=== PATIENT | female | born 1955 | race Caucasian/White ===

== ENCOUNTER 2024-07-03 09:53 | Outpatient (CLI) | payer MEDICARE, MEDICAID, SELFPAY ==
--- NOTE | 2024-07-03 10:05 | XR_ITS ---
FINAL REPORT CLINICAL HISTORY: Right wrist pain COMPARISON: None FINDINGS: RIGHT WRIST Three views demonstrate no acute fracture or dislocation. There are moderate hypertrophic changes of the basilar joint. Mild narrowing is noted at the radiocarpal joint. The soft tissues are unremarkable. IMPRESSION: Changes of osteoarthritis without acute bony abnormality. Reviewed, Interpreted and Dictated by Corey Vargas MD Transcribed by Ivelisse Underwood Authenticated and [facility]
--- NOTE | 2024-07-03 10:05 | XR_ITS ---
FINAL REPORT CLINICAL HISTORY: Left wrist pain COMPARISON: None FINDINGS: LEFT WRIST Three views demonstrate no acute fracture or dislocation. There are advanced hypertrophic changes of osteoarthritis of the basilar joint. Moderate narrowing of the radiocarpal joint is noted. The soft tissues are unremarkable. IMPRESSION: Changes of osteoarthritis without acute bony abnormality. Reviewed, Interpreted and Dictated by Corey Vargas MD Transcribed by Ivelisse Underwood Authenticated and [facility]
== END 2024-07-03 23:59 | disposition home or self-care (01) ==
LOC: RAD 10:00
PROVIDERS: PCP Family Medicine; Visit Provider Physician Assistant
DX: M25.531 Pain in right wrist (principal); M25.532 Pain in left wrist
CPT/HCPCS: 73110

== ENCOUNTER 2024-07-30 10:25 | Outpatient (CLI) | payer MEDICARE, MEDICAID, SELFPAY ==
--- NOTE | 2024-07-30 10:30 | XR_ITS ---
FINAL REPORT TECHNIQUE: Chest PA & Lateral CLINICAL HISTORY: copd exacerbation, cough r/o pneumonia COMPARISON: None FINDINGS: 2 views of the chest were performed. The heart is mildly enlarged. The mediastinum is within normal limits. Chronic changes are noted at the lung bases. There is no acute cardiopulmonary process. There are no pleural effusions. There is no pneumothorax. The bony thorax appears intact. IMPRESSION: No acute cardiopulmonary process. Reviewed, Interpreted and Dictated by Corey Vargas MD Transcribed by Natalie Santana Authenticated and [facility]
== END 2024-07-30 23:59 | disposition home or self-care (01) ==
LOC: RAD 10:26
PROVIDERS: PCP Family Medicine; Visit Provider Family Medicine
DX: J44.9 Chronic obstructive pulmonary disease, unspecified (principal); J40 Bronchitis, not specified as acute or chronic; Z87.891 Personal history of nicotine dependence
CPT/HCPCS: 71046

== ENCOUNTER 2024-08-06 10:19 | Outpatient (CLI) | payer MEDICARE, MEDICAID, SELFPAY ==
[2024-08-06 18:43] LABS: Basophils # 0.1 K/mm3 (0-0.2); Basophils % 0.7 % (0.1-2.0); Eosinophils # 0.8 K/mm3 (0.0-0.4); Hematocrit 45.9 % (37.0-47.0); Hemoglobin 14.7 g/dL (12.2-16.2); Lymphocytes # 2.5 K/mm3 (0.7-4.5); Lymphocytes % 29.6 % (10-50); Mean Corpuscular Hemoglobin 30.1 pg (27.0-31.2); Mean Platelet Volume 9.1 fl (7.4-10.4); Monocytes # 0.7 K/mm3 (0.1-1.0); Monocytes % 8.9 % (1.7-9.3); Neutrophils # 4.3 K/mm3 (1.8-7.8); Neutrophils % 51.7 % (37.0-80.0); Platelet Count 234 K/mm3 (142-424); Red Blood Count 4.88 M/mm3 (4.20-5.40); Red Cell Distribution Width 13.7 % (11.5-17.5); White Blood Count 8.3 K/mm3 (4.8-10.8)
[2024-08-06 18:58] LABS: Hemoglobin A1C 5.9 % (4.0-6.0)
[2024-08-06 19:14] LABS: Chloride 102 mmol/L (98-107); Potassium 4.6 mmoL/L (3.5-5.1); Sodium 140 mmol/L (136-145)
[2024-08-06 19:16] LABS: Alanine Aminotransferase 23 U/L (12-78); Aspartate Amino Transferase 23 U/L (14-36); Blood Urea Nitrogen 12 mg/dl (7-17); Estimated Glomerular Filt Rate 83 ml/min (>60); GFR (African American) 101 ML/MIN (>60)
[2024-08-06 19:17] LABS: Albumin/Globulin Ratio 1.2 (1.1-1.8); Alkaline Phosphatase 108 U/L (38-126); Anion Gap 11.6 mEq/L (5-15); Bilirubin,Total 0.5 mg/dl (0.2-1.3); Calcium 9.5 mg/dl (8.4-10.2); Carbon Dioxide 31 mmol/L (22.0-30.0); Cholesterol 171 mg/dl (140-200); Globulin 3.3 g/dL (1.3-3.2); Glucose 104 mg/dl (74-100); Total Protein,Serum 7.3 g/dl (6.3-8.2); Triglycerides 389 mg/dl (30-150); VLDL Cholesterol 78 mg/dL (0-40)
[2024-08-06 19:18] LABS: HDL Cholesterol 42 mg/dl (40-60)
[2024-08-06 19:28] LABS: Direct LDL Cholesterol 59.17 mg/dL (100-129)
[2024-08-06 19:48] LABS: Thyroid Stimulating Hormone 2.69 uIU/mL (0.465-4.68)
[2024-08-06 23:26] LABS: Chol/HDL Ratio 4.1 (1-3.5)
== END 2024-08-06 23:59 | disposition home or self-care (01) ==
LOC: LAB.DROPOF 08-07 10:19
PROVIDERS: PCP Family Medicine; Visit Provider Family Medicine
DX: J44.9 Chronic obstructive pulmonary disease, unspecified (principal); E11.9 Type 2 diabetes mellitus without complications; Z79.84 Long term (current) use of oral hypoglycemic drugs; E78.5 Hyperlipidemia, unspecified; E03.9 Hypothyroidism, unspecified; Z87.891 Personal history of nicotine dependence
CPT/HCPCS: 80053; 80061; 83036; 84443; 85025

== ENCOUNTER 2024-08-14 09:44 | Emergency (ER) | payer MEDICARE, MEDICAID, SELFPAY ==
[2024-08-14 09:58] VITALS: BP 128/70; PULSE 72; RESP 20; TEMP 36.5; O2SAT 96; BMI 33.8
--- NOTE | 2024-08-14 10:11 | EXP.UTC ---
Discharge Plan Disposition Patient Disposition: Home, Self-Care Condition: Good Prescriptions Prescriptions: New benzonatate 100 mg capsule 100 mg PO TID PRN (Reason: cough) Qty: 30 0RF cefdinir 300 mg capsule 300 mg PO BID Qty: 20 0RF guaifenesin [Mucinex] 600 mg tablet extended release 12hr 600 mg PO BID PRN (Reason: cough) Qty: 20 0RF No Action aspirin 81 mg tablet,delayed release (DR/EC) 81 mg PO Patient Comments: TAKE 1 TABLET BY MOUTH DAILY fluticasone propionate 50 mcg/actuation spray,suspension intranasal fluticasone propion-salmeterol 100-50 mcg/dose blister with device inhalation Patient Comments: INHALE 1 PUFF BY MOUTH TWICE DAILY albuterol sulfate 90 mcg/actuation HFA aerosol inhaler inhalation Patient Comments: INHALE 2 PUFFS EVERY 4 HOURS NEEDED FOR WHEEZING OR SHORTNESS OF AIR (DME) OneTouch Ultra Test Strip See Rx Instructions .ROUTE .MEDSUPPLY Qty: 10 Patient Comments: USE TO CHECK BLOOD SUGAR DAILY DIRECTED Rx Instructions: As directed (DME) blood-glucose meter [OneTouch Ultra2 Meter] Mis See Rx Instructions .ROUTE .MEDSUPPLY Qty: 1 Patient Comments: USE TO CHECK BLOOD SUGAR DAILY Rx Instructions: As directed (DME) lancets [Ultra Thin Lancets] 30 gauge misc See Rx Instructions .ROUTE .MEDSUPPLY Qty: 100 Patient Comments: USE TO CHECK BLOOD SUGAR ONCE DAILY Rx Instructions: As directed atorvastatin 20 mg tablet 20 mg PO Patient Comments: TAKE 1 TABLET BY MOUTH DAILY nitroglycerin 0.4 mg tablet, sublingual 0.4 mg sublingual Patient Comments: PLACE 1 TABLET UNDER THE TONGUE EVERY 5 MINUTES NEEDED FOR CHEST PAIN. TAKE NO MORE THAN 3 DOSES IN 15 MINS amlodipine 2.5 mg tablet 2.5 mg PO ONCE PRN Patient Comments: TAKE 1 TABLET BY MOUTH DAILY hydroxyzine HCl 10 mg tablet 10 mg PO HS PRN meloxicam 15 mg tablet 15 mg PO ONCE Patient Comments: TAKE 1 TABLET BY MOUTH DAILY metoprolol succinate 50 mg tablet extended release 24 hr 50 mg PO BID Patient Comments: TAKE 1 TABLET BY MOUTH EVERY 12 HOURS mirtazapine 15 mg tablet 15 mg PO ONCE Patient Comments: TAKE 1 TABLET BY MOUTH EVERY NIGHT pantoprazole 40 mg tablet,delayed release (DR/EC) 40 mg PO BID Patient Comments: TAKE 1 TABLET BY MOUTH TWICE DAILY potassium chloride 10 mEq tablet,ER particles/crystals 10 meq PO ONCE Patient Comments: TAKE 1 TABLET BY MOUTH DAILY flu vacc [id number] 6mos up(PF) 45 mcg (15 mcg x 3)/0.5 mL syringe 0.5 ml IM ONCE Qty: 0.5 0RF oxybutynin chloride 5 mg tablet 5 mg PO BID Qty: 60 5RF alendronate 70 mg tablet 70 mg PO QWEEK chlorthalidone 25 mg tablet 25 mg PO DAILY Qty: 30 2RF gabapentin 100 mg capsule 100 mg PO TID Qty: 90 5RF levothyroxine 75 mcg tablet 75 mcg PO DAILY Qty: 90 0RF memantine 10 mg tablet 10 mg PO DAILY Qty: 90 0RF Jardiance 10 mg tablet 10 mg PO DAILY Qty: 90 0RF sucralfate 1 gram tablet 1 g PO QID 30 Days Qty: 120 0RF montelukast 10 mg tablet 10 mg PO DAILY Qty: 30 5RF Referrals Follow up/Referrals: Reza Panchal MD [Primary Care Provider] - See instructions Activity Restrictions/Add. Instructions Additional Instructions/Restrictions: Start antibiotic today. Be sure to complete entire prescription even if feeling better Monitor temp. Tylenol every 4 hours as needed and / or ibuprofen every 6 hours as needed ( As long as your primary care physician has told you that it ok to take both. For fever/aches/pains ER if no less than 101 despite Tylenol or Motrin Humidifier/vaporizer or hot steamy shower Mucinex during the day for your cough and cough suppressant only at night. Be sure to drink lots of water. *Tessalon Perles will not cause drowsiness but use at bedtime to help stop cough so that you may get some rest. Follow up IMMEDIATELY for new or worsening of symptoms OR no noticeable improvement over the next 48-72 hours. 911 immediately for any life threatening symptoms such as chest pain or difficulty breathing Clinical Impressions Clinical Impression: Bronchitis Instructions Patient Instructions: DI for Sinusitis, Acute Bronchitis Print Language Print Language: Mauritanian Discharge ED Provider: Haley Donis [facility] HPI General Stated complaint: cough Mode of Arrival: Ambulatory Source of Information: Patient Time Seen by Provider: 08/14/24 10:17 Description of Symptoms (Recalled from Triage Doc. by RN): COUGHING/ WHEEZING X2 WEEKS HEENT Symptoms (Recalled from RN notes): No Resp Symptoms (Recalled from RN notes): Yes Skin Symptoms (Recalled from RN notes): No MS Symptoms (Recalled from RN notes): No Functional Status (Recalled from RN notes): WNL History of Present Illness Provider Complaint: Patient states that she was seen and treated by her PCP for Bronchitis States it initially got better then came back States that she has been having cough and chest congestion but not coughing much up but the cough is keeping her up at night and feels like she is getting congested again in her chest area so she came in to get something else to see if that would clear it up Related Data Home Medications ?Medication ?Instructions ?Recorded ?Confirmed albuterol sulfate 90 mcg/actuation inhalation 07/05/24 08/07/24 aerosol inhaler aspirin 81 mg tablet,delayed 81 mg PO 07/05/24 08/07/24 release atorvastatin 20 mg tablet 20 mg PO 07/05/24 08/07/24 blood sugar diagnostic (OneTouch #10 ea 07/05/24 08/07/24 Ultra Test strips) blood-glucose meter (OneTouch #1 ea 07/05/24 08/07/24 Ultra2 Meter) fluticasone 100 mcg-salmeterol 50 inhalation 07/05/24 08/07/24 mcg/dose blistr powdr for inhalation fluticasone propionate 50 intranasal 07/05/24 08/07/24 mcg/actuation nasal spray,suspension lancets 30 gauge (Ultra Thin #100 ea 07/05/24 08/07/24 Lancets) nitroglycerin 0.4 mg sublingual 0.4 mg sublingual 07/05/24 08/07/24 tablet alendronate 70 mg tablet 70 mg PO QWEEK 08/07/24 08/07/24 amlodipine 2.5 mg tablet 2.5 mg PO ONCE PRN 08/07/24 08/07/24 hydroxyzine HCl 10 mg tablet 10 mg PO HS PRN 08/07/24 08/07/24 meloxicam 15 mg tablet 15 mg PO ONCE 08/07/24 08/07/24 metoprolol succinate 50 mg 50 mg PO BID 08/07/24 08/07/24 tablet,extended release 24 hr mirtazapine 15 mg tablet 15 mg PO ONCE 08/07/24 08/07/24 pantoprazole 40 mg tablet,delayed 40 mg PO BID 08/07/24 08/07/24 release potassium chloride 10 mEq 10 meq PO ONCE 08/07/24 08/07/24 tablet,extended release(part/cryst) Previous Rx's ?Medication ?Instructions ?Recorded empagliflozin 10 mg tablet 10 mg PO DAILY Diabetes #90 tabs 07/08/24 (Jardiance) levothyroxine 75 mcg tablet 75 mcg PO DAILY thyroid disease 07/08/24 #90 tabs memantine 10 mg tablet 10 mg PO DAILY memory loss #90 tabs 07/08/24 sucralfate 1 gram tablet 1 g PO QID 30 days #120 tabs 07/29/24 gabapentin 100 mg capsule 100 mg PO TID #90 caps 07/30/24 montelukast 10 mg tablet 10 mg PO DAILY #30 tabs 08/01/24 oxybutynin chloride 5 mg tablet 5 mg PO BID #60 tabs 08/06/24 chlorthalidone 25 mg tablet 25 mg PO DAILY #30 tabs 08/07/24 benzonatate 100 mg capsule 100 mg PO TID PRN cough #30 caps 08/14/24 cefdinir 300 mg capsule 300 mg PO BID #20 caps 08/14/24 guaifenesin 600 mg tablet, 600 mg PO BID PRN cough #20 tabs 08/14/24 extended release 12 hr (Mucinex) Allergies Allergy/AdvReac Type Severity Reaction Status Date / Time hydrocodone Allergy Mild Verified 08/07/24 10:50 codeine AdvReac Mild Verified 08/07/24 10:50 Worker's Comp Is this a Worker's Comp case?: No [facility] Disclaimer: The information contained in this section may have been updated after the patient was seen, as this information can be updated by other users. 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 (Updated 08/14/24 @ 10:24 by Haley Donis APRN) Edema Hyperlipidemia associated with type 2 diabetes mellitus Urinary incontinence Onychomycosis Diabetic neuropathy Breast cancer screening by mammogram Dementia Diabetes mellitus Bronchitis COPD (chronic obstructive pulmonary disease) Colonoscopy planned Gallbladder anomaly Rheumatoid arthritis Osteoporosis Back pain Acid reflux disease Carpal tunnel syndrome Anxiety Hypothyroidism Sleep apnea High blood pressure Arthritis Varicose veins of ankle Depression Acute asthma Surgical History History of hernia repair Total knee replacement status Social History Smoking Status: Never smoker alcohol intake: never substance use type: denies use current occupational status: unemployed Travel in the last 8 weeks: None ROS Obtained: Yes All systems reviewed & no additional complaints except as documented and Yes Systems reviewed as appropriate & no additional complaints except as documented Constitutional Constitutional: Reports system reviewed and no additional complaints, except as documented and Reports as per HPI ENT Ears, Nose, Mouth, and Throat: Reports system reviewed and no additional complaints, except as documented and Reports as per HPI Cardiovascular Cardiovascular: Reports system reviewed and no additional complaints, except as documented and Reports as per HPI Respiratory Respiratory: Reports system reviewed and no additional complaints, except as documented, Reports as per HPI, Reports chest congestion and Reports cough Gastrointestinal Gastrointestingal: Reports system reviewed and no additional complaints, except as documented and as per HPI Physical Exam General General appearance: alert and in no apparent distress Expanded ENT Exam Nose exam: Present sinus tenderness (reports tenderness in maxillary sinuses with palpation) Throat exam: Present other (PND noted) Respiratory Respiratory exam: Present normal lung sounds bilaterally; Absent respiratory distress or wheezes Cardiovascular Cardiovascular exam: Present regular rate, normal rhythm and normal heart sounds Neurological Exam Neurological exam: Present alert, oriented X3 and normal gait Medical Decision Making Medical Records Screening: Per USPSTF and CDC recommendations, given the prevalence of disease in our region, it is our hospital?s policy to screen for HIV and viral Hepatitis for all patients aged 18 and over and those with ongoing risk factors. Andre Inquiry Pt receiving controlled substance: No Vital Signs: 08/14/24 09:58 Temperature 97.7 F Temperature Source Oral Pulse Rate [Left Radial] 72 Respiratory Rate 20 Blood Pressure [Left Arm] 128/70 Blood Pressure Mean [Left Arm] 89 02 Sat by Pulse Oximetry 96
[2024-08-14 10:24] VITALS: BP 128/70; PULSE 72; RESP 20; TEMP 36.5
== END 2024-08-14 10:29 | disposition home or self-care (01) ==
PROVIDERS: Emergency Provider Nurse Practitioner; PCP Family Medicine
DX: J40 Bronchitis, not specified as acute or chronic (principal); R05.9 Cough, unspecified
CPT/HCPCS: 99212; G0381

== ENCOUNTER 2024-08-16 19:45 | Emergency (ER) | payer MEDICARE, MEDICAID, SELFPAY ==
[2024-08-16 20:18] VITALS: BP 161/87; PULSE 83; RESP 20; TEMP 36.5; O2SAT 95; BMI 37.0
--- NOTE | 2024-08-16 20:27 | CT_ITS ---
PROCEDURE INFORMATION: Exam: CTA Head With Contrast, Venography Exam date and time: 08/16/2024 9:04 PM Age: 69 years old Clinical indication: Stroke-like symptoms; Headache and visual disturbance; Additional info: R eye vision loss, severe R headache TECHNIQUE: Imaging protocol: Computed tomography angiography of the head with contrast. Exam focused on the veins. 3D rendering (Not supervised by radiologist): MIP and/or 3D reconstructed images were created by the technologist. Radiation optimization: All CT scans at this facility use at least one of these dose optimization techniques: automated exposure control; mA and/or kV adjustment per patient size (includes targeted exams where dose is matched to clinical indication); or iterative reconstruction. Contrast material: ISOUVE 370; Contrast volume: 80 ml; Contrast route: INTRAVENOUS (IV); COMPARISON: CT ANGIO HEAD 08/16/2024 9:04 PM FINDINGS: Superior sagittal sinus: Patent Straight sinus: Patent. Transverse sinuses: Patent. Sigmoid sinuses: Patent. Internal jugular veins: Limited visualized internal jugular veins are patent. ANTERIOR CIRCULATION: Right internal carotid artery: The right ICA petrous, cavernous, and supraclinoid segments are unremarkable. Right middle cerebral artery: Unremarkable. No occlusion or significant stenosis. No aneurysm. Right anterior cerebral artery: Unremarkable. No occlusion or significant stenosis. No aneurysm. The anterior communicating artery is unremarkable. Left internal carotid artery: Left ICA petrous, cavernous, and supraclinoid segments are normal. Left middle cerebral artery: Unremarkable. No occlusion or significant stenosis. No aneurysm. Left anterior cerebral artery: Unremarkable. No occlusion or significant stenosis. No aneurysm. POSTERIOR CIRCULATION: Right vertebral artery: Unremarkable. No occlusion or significant stenosis. No aneurysm. Left vertebral artery: Left vertebral artery is mildly dominant. No occlusion or significant stenosis. No aneurysm. Basilar artery: Unremarkable. No occlusion or significant stenosis. No aneurysm. Right posterior cerebral artery: Unremarkable. No occlusion or significant stenosis. No aneurysm. Left posterior cerebral artery: Unremarkable. No occlusion or significant stenosis. No aneurysm. Brain: No enhancing brain lesions or vascular malformations are identified. Cerebral ventricles: No ventriculomegaly. Soft tissues: Unremarkable. IMPRESSION: 1. No evidence of large vessel occlusion or significant stenosis. No evidence of arterial dissection or aneurysm/pseudoaneurysm. 2. No acute intracranial process is evident.
--- NOTE | 2024-08-16 20:27 | CT_ITS ---
PROCEDURE INFORMATION: Exam: CT Head Without Contrast Exam date and time: 08/16/2024 8:50 PM Age: 69 years old Clinical indication: Stroke-like symptoms; Headache and visual disturbance; Additional info: R eye vision loss, severe R headache TECHNIQUE: Imaging protocol: Computed tomography of the head without contrast. Radiation optimization: All CT scans at this facility use at least one of these dose optimization techniques: automated exposure control; mA and/or kV adjustment per patient size (includes targeted exams where dose is matched to clinical indication); or iterative reconstruction. Other technique: STROKE PROTOCOL was implemented. COMPARISON: No relevant prior studies available. FINDINGS: Brain: Mild generalized cerebral/cerebellar atrophy. Mild-moderate bilateral white matter hypodensities which are nonspecific but most commonly associated with chronic microvascular ischemia in this age group. The IACs are grossly normal. No extra-axial fluid collections. No evidence of acute intracranial hemorrhage. Cerebral/cerebellar parra-white matter differentiation is well maintained. No CT evidence of large territory acute or subacute intracranial ischemia/infarct. No intracranial mass lesions. No midline shift or herniation. There is 6 mm ovoid hypodensity in the inferior right basal ganglia distribution consistent with either a normal variant prominent perivascular space or a small chronic lacunar infarct. Cerebral ventricles: Ventricles normal. Pituitary gland and sella: The sella is grossly normal. Paranasal sinuses: Left maxillary sinus opacification and volume loss consistent with chronic sinusitis with mild changes of chronic sinusitis in the right posterior ethmoids as well. No fluid levels. Mastoid air cells: Partial opacification of a few left mastoid air cells suggesting mild mastoid inflammatory disease. No coalescence. Right mastoid air cells are clear. Orbital cavities: No acute intraorbital findings. Prior bilateral ocular cataract surgery. Bones: No acute osseous findings. Hyperostosis frontalis interna incidentally noted. Soft tissues: No acute soft tissue findings. Vasculature: No asymmetric vascular hyperdensities suggestive of thrombosis are identified. IMPRESSION: 1. No acute intracranial process. No intracranial hemorrhage or mass effect. 2. Mild left mastoid inflammatory disease and chronic sinusitis. ASSESSMENT: ASPECTS ([place] Stroke Program Early CT Score) is 10.
--- NOTE | 2024-08-16 20:27 | CT_ITS ---
PROCEDURE INFORMATION: Exam: CTA Neck With Contrast Exam date and time: 08/16/2024 9:04 PM Age: 69 years old Clinical indication: Stroke-like symptoms; Headache and visual disturbance; Additional info: R eye vision loss, severe R headache TECHNIQUE: Imaging protocol: Computed tomographic angiography of the neck with contrast. Exam focused on the cervical segments of the vasculature. 3D rendering (Not supervised by radiologist): MIP and/or 3D reconstructed images were created by the technologist. Radiation optimization: All CT scans at this facility use at least one of these dose optimization techniques: automated exposure control; mA and/or kV adjustment per patient size (includes targeted exams where dose is matched to clinical indication); or iterative reconstruction. Contrast material: ISOUVE 370; Contrast volume: 80 ml; Contrast route: INTRAVENOUS (IV); COMPARISON: CT ANGIO HEAD 08/16/2024 9:04 PM FINDINGS: Right common carotid artery: Mild tortuosity. No stenosis. No dissection or occlusion. Right internal carotid artery: Moderate calcific plaque in the right carotid bulb. Moderate tortuosity with mild kinking in the mid segment. No significant stenosis. No dissection or occlusion. Right external carotid artery: Mild ostial calcific plaque. No stenosis. No dissection or occlusion. Left common carotid artery: Variant origin from the brachiocephalic artery. Moderate tortuosity with mild kinking but no significant stenosis. No dissection or occlusion. Left internal carotid artery: Moderate calcific plaque in the left carotid bulb. Mild tortuosity. No stenosis. No dissection or occlusion. Left external carotid artery: Mild ostial calcific plaque. No stenosis. No dissection or occlusion. Right vertebral artery: Mild V1 tortuosity. No stenosis. No dissection or occlusion. Left vertebral artery: Left vertebral artery is mildly dominant. No stenosis. No dissection or occlusion. Brachiocephalic artery: The brachiocephalic artery is unremarkable. Right subclavian artery: The right subclavian artery is unremarkable. Left subclavian artery: The left subclavian artery demonstrates mild calcific plaque and tortuosity/kinking without significant stenosis. Aorta: The visualized aortic arch demonstrates mild ectasia and calcific plaque without evidence of dissection or gross aneurysm. Thyroid: The thyroid gland is not well visualized and is either severely atrophic or surgically absent. Correlate clinically for evidence of hypothyroidism. Soft tissues: No significant soft tissue swelling or hematoma. Bones/joints: No acute osseous abnormalities are identified. Osteopenia and moderate-severe cervical disc degenerative changes, greatest in the lower cervical levels, with chronic ankylosis or fusion C5-C6. Lungs: Patchy atelectasis in the bilateral mid to basilar lung franklin. Mild biapical pleural-parenchymal scarring. Heart: Moderate cardiomegaly. Coronary arteries: Mild coronary artery calcification. Other findings: Moderate-sized hiatal hernia. IMPRESSION: 1. No evidence of arterial occlusion, significant stenosis, dissection, or aneurysm/pseudoaneurysm. 2. Nonemergent findings detailed above. REFERENCES: NASCET CRITERIA. The degree of stenosis in the cervical segment of the internal carotid artery is based on NASCET criteria. Normal is no stenosis. Mild is less than 50% stenosis. Moderate is 50-69% stenosis. Severe is 70% to 99% stenosis. Total occlusion is no detectable patent lumen.
--- NOTE | 2024-08-16 20:28 | XR_ITS ---
PROCEDURE INFORMATION: Exam: XR Chest Exam date and time: 08/16/2024 9:02 PM Age: 69 years old Clinical indication: Cough; Additional info: Cough >2 wks TECHNIQUE: Imaging protocol: Radiologic exam of the chest. Views: 1 view. COMPARISON: CR XR CHEST 2V 07/30/2024 10:38 AM FINDINGS: Lungs: Low lung volumes. Pulmonary vasculature grossly normal. Patchy mild alveolar densities in the lung bases, partially visualized on the neck CT angiogram, favor patchy basilar atelectasis although cannot exclude mild basilar pneumonia. Pleural spaces: No gross pleural effusions although the lordotic projection limits sensitivity. No pneumothorax. Heart/Mediastinum: Mild cardiomegaly. No tracheal/mediastinal shift. Bones/joints: No acute osseous abnormalities are identified. Osteopenia. Mild thoracic spondylosis. IMPRESSION: 1. Patchy mild alveolar densities in the lung bases, most likely basilar atelectasis based on the neck CT angiogram which partially visualizes this region although cannot exclude patchy basilar pneumonia. 2. Mild cardiomegaly.
--- NOTE | 2024-08-16 20:32 | PC.NURSE ---
family at [facility]
--- NOTE | 2024-08-16 20:41 | ED_ITS ---
Discharge Plan Disposition Patient Disposition: Xfer Short-Term Hosp Condition: Good Chief Complaint: PAIN Prescriptions Prescriptions: No Action aspirin 81 mg tablet,delayed release (DR/EC) 81 mg PO Patient Comments: TAKE 1 TABLET BY MOUTH DAILY fluticasone propionate 50 mcg/actuation spray,suspension intranasal fluticasone propion-salmeterol 100-50 mcg/dose blister with device inhalation Patient Comments: INHALE 1 PUFF BY MOUTH TWICE DAILY albuterol sulfate 90 mcg/actuation HFA aerosol inhaler inhalation Patient Comments: INHALE 2 PUFFS EVERY 4 HOURS NEEDED FOR WHEEZING OR SHORTNESS OF AIR (DME) OneTouch Ultra Test Strip See Rx Instructions .ROUTE .MEDSUPPLY Qty: 10 Patient Comments: USE TO CHECK BLOOD SUGAR DAILY DIRECTED Rx Instructions: As directed (DME) blood-glucose meter [OneTouch Ultra2 Meter] Misc See Rx Instructions .ROUTE .MEDSUPPLY Qty: 1 Patient Comments: USE TO CHECK BLOOD SUGAR DAILY Rx Instructions: As directed (DME) lancets [Ultra Thin Lancets] 30 gauge misc See Rx Instructions .ROUTE .MEDSUPPLY Qty: 100 Patient Comments: USE TO CHECK BLOOD SUGAR ONCE DAILY Rx Instructions: As directed atorvastatin 20 mg tablet 20 mg PO Patient Comments: TAKE 1 TABLET BY MOUTH DAILY nitroglycerin 0.4 mg tablet, sublingual 0.4 mg sublingual Patient Comments: PLACE 1 TABLET UNDER THE TONGUE EVERY 5 MINUTES NEEDED FOR CHEST PAIN. TAKE NO MORE THAN 3 DOSES IN 15 MINS amlodipine 2.5 mg tablet 2.5 mg PO ONCE PRN Patient Comments: TAKE 1 TABLET BY MOUTH DAILY hydroxyzine HCl 10 mg tablet 10 mg PO HS PRN meloxicam 15 mg tablet 15 mg PO ONCE Patient Comments: TAKE 1 TABLET BY MOUTH DAILY metoprolol succinate 50 mg tablet extended release 24 hr 50 mg PO BID Patient Comments: TAKE 1 TABLET BY MOUTH EVERY 12 HOURS mirtazapine 15 mg tablet 15 mg PO ONCE Patient Comments: TAKE 1 TABLET BY MOUTH EVERY NIGHT pantoprazole 40 mg tablet,delayed release (DR/EC) 40 mg PO BID Patient Comments: TAKE 1 TABLET BY MOUTH TWICE DAILY potassium chloride 10 mEq tablet,ER particles/crystals 10 meq PO ONCE Patient Comments: TAKE 1 TABLET BY MOUTH DAILY flu vacc [id number] 6mos up(PF) 45 mcg (15 mcg x 3)/0.5 mL syringe 0.5 ml IM ONCE Qty: 0.5 0RF oxybutynin chloride 5 mg tablet 5 mg PO BID Qty: 60 5RF alendronate 70 mg tablet 70 mg PO QWEEK chlorthalidone 25 mg tablet 25 mg PO DAILY Qty: 30 2RF gabapentin 100 mg capsule 100 mg PO TID Qty: 90 5RF levothyroxine 75 mcg tablet 75 mcg PO DAILY Qty: 90 0RF memantine 10 mg tablet 10 mg PO DAILY Qty: 90 0RF Jardiance 10 mg tablet 10 mg PO DAILY Qty: 90 0RF sucralfate 1 gram tablet 1 g PO QID 30 Days Qty: 120 0RF montelukast 10 mg tablet 10 mg PO DAILY Qty: 30 5RF benzonatate 100 mg capsule 100 mg PO TID PRN (Reason: cough) Qty: 30 0RF cefdinir 300 mg capsule 300 mg PO BID Qty: 20 0RF guaifenesin [Mucinex] 600 mg tablet extended release 12hr 600 mg PO BID PRN (Reason: cough) Qty: 20 0RF Referrals Follow up/Referrals: Reza Panchla MD [Primary Care Provider] - See instructions Activity Restrictions/Add. Instructions Additional Instructions/Restrictions: Please proceed directly to [facility] emergency department for evaluation Clinical Impressions Clinical Impression: Vision loss, right eye, Frontal headache, Headache, temporal Print Language Print Language: Moroccan Discharge ED Provider: Ann Meeks General Adult HPI General Chief complaint: PAIN Stated complaint: MANN,felt like she was goind to pass out Time Seen by Provider: 08/16/24 19:48 Mode of Arrival: Wheelchair Source of Information: Patient Limitations: No Limitations Description of Symptoms (Recalled from ER Triage Doc. by RN): Pt states she was shopping and suddenly had head ache felt like she blacked out without passing out, pt states that she has low k+ also takes potassium. states this is how she feels when her potassium is off History of Present Illness HPI narrative: This patient is a 69-year-old female with a history of COPD, hypertension, hypothyroidism, diabetes, dementia, depression, and rheumatoid arthritis presenting to the emergency department for evaluation with concern for headache and right eye vision loss. Patient reports that she was shopping when suddenly at 7:30 PM she experienced right sided forehead/temporal throbbing and pain as well as blackout of vision in her right eye. She notes that the vision has gradually returned and is now just blurry, but it seems to be improving. She still having throbbing pain in the right side of her head and forehead. She denies any preceding trauma or other concerns. She denies any numbness, tingling, unilateral weakness, new gait disturbance, or other issue. She notes she does have a history of migraines, but this feels different than her typical migraines. She also notes she has a history of a fungal infection of her right eye and nearly lost her right eye in the past, but she states that was about a year ago. Related Data Home Medications ?Medication ?Instructions ?Recorded ?Confirmed albuterol sulfate 90 mcg/actuation inhalation 07/05/24 08/07/24 aerosol inhaler aspirin 81 mg tablet,delayed 81 mg PO 07/05/24 08/07/24 release atorvastatin 20 mg tablet 20 mg PO 07/05/24 08/07/24 blood sugar diagnostic (OneTouch #10 ea 07/05/24 08/07/24 Ultra Test strips) blood-glucose meter (OneTouch #1 ea 07/05/24 08/07/24 Ultra2 Meter) fluticasone 100 mcg-salmeterol 50 inhalation 07/05/24 08/07/24 mcg/dose blistr powdr for inhalation fluticasone propionate 50 intranasal 07/05/24 08/07/24 mcg/actuation nasal spray,suspension lancets 30 gauge (Ultra Thin #100 ea 07/05/24 08/07/24 Lancets) nitroglycerin 0.4 mg sublingual 0.4 mg sublingual 07/05/24 08/07/24 tablet alendronate 70 mg tablet 70 mg PO QWEEK 08/07/24 08/07/24 amlodipine 2.5 mg tablet 2.5 mg PO ONCE PRN 08/07/24 08/07/24 hydroxyzine HCl 10 mg tablet 10 mg PO HS PRN 08/07/24 08/07/24 meloxicam 15 mg tablet 15 mg PO ONCE 08/07/24 08/07/24 metoprolol succinate 50 mg 50 mg PO BID 08/07/24 08/07/24 tablet,extended release 24 hr mirtazapine 15 mg tablet 15 mg PO ONCE 08/07/24 08/07/24 pantoprazole 40 mg tablet,delayed 40 mg PO BID 08/07/24 08/07/24 release potassium chloride 10 mEq 10 meq PO ONCE 08/07/24 08/07/24 tablet,extended release(part/cryst) Previous Rx's ?Medication ?Instructions ?Recorded empagliflozin 10 mg tablet 10 mg PO DAILY Diabetes #90 tabs 07/08/24 (Jardiance) levothyroxine 75 mcg tablet 75 mcg PO DAILY thyroid disease 07/08/24 #90 tabs memantine 10 mg tablet 10 mg PO DAILY memory loss #90 tabs 07/08/24 sucralfate 1 gram tablet 1 g PO QID 30 days #120 tabs 07/29/24 gabapentin 100 mg capsule 100 mg PO TID #90 caps 07/30/24 montelukast 10 mg tablet 10 mg PO DAILY #30 tabs 08/01/24 oxybutynin chloride 5 mg tablet 5 mg PO BID #60 tabs 08/06/24 chlorthalidone 25 mg tablet 25 mg PO DAILY #30 tabs 08/07/24 benzonatate 100 mg capsule 100 mg PO TID PRN cough #30 caps 08/14/24 cefdinir 300 mg capsule 300 mg PO BID #20 caps 08/14/24 guaifenesin 600 mg tablet, 600 mg PO BID PRN cough #20 tabs 08/14/24 extended release 12 hr (Mucinex) Allergies Allergy/AdvReac Type Severity Reaction Status Date / Time hydrocodone Allergy Mild Verified 08/07/24 10:50 codeine AdvReac Mild Verified 08/07/24 10:50 PFSH PFSH Disclaimer: The information contained in this section may have been updated after the patient was seen, as this information can be updated by other users. 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 Edema Hyperlipidemia associated with type 2 diabetes mellitus Urinary incontinence Onychomycosis Diabetic neuropathy Breast cancer screening by mammogram Dementia Diabetes mellitus Bronchitis COPD (chronic obstructive pulmonary disease) Colonoscopy planned Gallbladder anomaly Rheumatoid arthritis Osteoporosis Back pain Acid reflux disease Carpal tunnel syndrome Anxiety Hypothyroidism Sleep apnea High blood pressure Arthritis Varicose veins of ankle Depression Acute asthma Surgical History History of hernia repair Total knee replacement status Social History Smoking Status: Former smoker alcohol intake: never substance use type: denies use current occupational status: unemployed Travel in the last 8 weeks: None Other 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 Have you received the Pneumonia Vaccine: Yes ROS Obtained: Yes All systems reviewed & no additional complaints except as documented Physical Exam General General appearance: alert and in no apparent distress Head Head exam: atraumatic and normocephalic Eye Eye exam: Present PERRL, EOMI and other (lacrimation of R eye) ENT ENT exam: Present normal exam, normal oropharynx, mucous membranes moist and normal external ear exam Neck Neck exam: Present normal inspection, full ROM and trachea midline; Absent tenderness Chest Chest inspection: Present normal inspection and symmetric chest wall rise; Absent tenderness Respiratory Respiratory exam: Present normal lung sounds bilaterally; Absent respiratory distress, wheezes, stridor or accessory muscle use Cardiovascular Cardiovascular exam: Present regular rate and normal rhythm Abdominal Exam Abdominal exam: Present soft; Absent distention, tenderness or guarding Extremities Exam Extremities exam: Present normal inspection, full ROM and normal capillary refill; Absent tenderness or edema Back Exam Back exam: Present normal inspection and full ROM; Absent tenderness Neurological Exam Neurological exam: Present alert, oriented X3, normal gait and other (blurred vision of right eye but no focal deficits or visual field loss.); Absent CN II- XII intact (Blurred vision of the right eye) or motor sensory deficit Psychiatric Psychiatric exam: Present normal affect and normal mood Skin Skin exam: Present warm and dry Medical Decision Making Medical Records Medical records reviewed: Yes I reviewed the patient's medical records. Screening: Per USPSTF and CDC recommendations, given the prevalence of disease in our region, it is our hospital?s policy to screen for HIV and viral Hepatitis for all patients aged 18 and over and those with ongoing risk factors. Andre Inquiry Pt receiving controlled substance: No Vital Signs: 08/16/24 20:18 08/16/24 21:16 Temperature 97.7 F Temperature Source Oral Pulse Rate 99 H Pulse Rate [Right Radial] 83 Respiratory Rate 20 Blood Pressure 158/77 H Blood Pressure [Right Arm] 161/87 H Blood Pressure Mean [Right Arm] 111 Blood Pressure Source [Right Arm] Automatic Cuff Blood Pressure Position [Right Arm] Sitting 02 Sat by Pulse Oximetry 95 94 L Oxygen Delivery Method Room Air Lab Data Lab results reviewed: Yes I reviewed the patient's lab results. Lab Results 08/16/24 20:52: PT 10.4, INR 0.92, APTT 27.1, Sodium 141, Potassium 4.0, Chloride 100, Carbon Dioxide 33 H, Anion Gap 12.0, BUN 19 H, Creatinine 0.80, Estimated Creat Clear 74, Estimated GFR 72, Est GFR ( Amer) 87, Glucose 189 H, Calcium 9.6, Total Bilirubin 0.6, AST 36, ALT 36, Alkaline Phosphatase 118, C-Reactive Protein 3.1, Total Protein 8.9 H, Albumin 4.7, Globulin 4.2 H, Albumin/Globulin Ratio 1.1, HIV 1&2 Antibody Rapid Nonreactive 08/16/24 21:41: WBC 7.3, RBC 4.18 L, Hgb 13.9, Hct 38.0, MCV 90.9, MCH 33.3 H, M CHC 36.7 H, RDW 14.0, Plt Count 203, MPV 7.8, Neut % (Auto) 42.6, Lymph % (Auto) 37.0, [place] % (Auto) 11.0 H, Eos % (Auto) 8.1, Baso % (Auto) 1.2, Neut # (Auto) 3.1, Lymph # (Auto) 2.7, [place] # (Auto) 0.8, Eos # (Auto) 0.6 H, Baso # (Auto) 0.1, ESR 19 08/16/24 21:41 08/16/24 20:52 Orders (Tests/Meds): ED MEDICATIONS Generic Name Dose Route Start Last Admin Trade Name Freq PRN Reason Stop Dose Admin Sodium Chloride 10 ml 08/16/24 21:14 08/16/24 21:15 Sodium Chloride 0.9% 10ml Syr (Rad Only) IV 09/15/24 21:13 10 ml NEEDED PRN Administration Maintain IV Site Discontinued Medications Generic Name Dose Route Start Last Admin Trade Name Freq PRN Reason Stop Dose Admin Acetaminophen 1,000 mg 08/16/24 21:23 08/16/24 21:48 Acetaminophen 500mg Tab PO 08/16/24 21:24 1,000 mg ONCE ONE Administration Lactated Ringer's 500 mls @ 999 mls/hr 08/16/24 21:23 08/16/24 21:50 Lactated Ringer's 500ml IV 08/16/24 21:53 999 mls/hr .Q31M ONE Administration Iopamidol 80 ml 08/16/24 21:14 08/16/24 21:15 Iopamidol-370 (76%);100ml Bottle IV 08/16/24 21:15 80 ml ONCE ONE Administration Ketorolac Tromethamine 15 mg 08/16/24 21:23 08/16/24 21:47 Ketorolac 30mg/Ml Vial IV 08/16/24 21:24 15 mg ONCE ONE Administration Methylprednisolone Sodium Succinate 125 mg 08/16/24 21:23 08/16/24 21:47 Methylprednisolone Sod Succ 125mg Vial IV 08/16/24 21:24 125 mg ONCE ONE Administration Metoclopramide HCl 5 mg 08/16/24 21:23 08/16/24 21:48 Metoclopramide Hcl 10mg/2ml Vial IVP 08/16/24 21:24 5 mg ONCE ONE Administration Sodium Chloride 50 ml 08/16/24 21:14 08/16/24 21:15 0.9 % Sodium Chloride 50 Ml Vial IV 08/16/24 21:15 50 ml ONCE ONE Administration ORDERS Category Date Time Status CT angio head Stat Cat Scan 08/16/24 20:[address] angio neck Stat Cat Scan 08/16/24 20:[address] head/brain wo con Stat Cat Scan 08/16/24 20:27 Completed CXR --portable [XR chest portable] Stat Exams 08/16/24 20:28 Completed CRP [C-Reactive Protein] Stat Lab 08/16/24 20:52 Completed Complete Blood Count Auto Diff Stat Lab 08/16/24 21:41 Completed Comprehensive Metabolic Panel Stat Lab 08/16/24 20:52 Completed ESR [Erythrocyte Sedimentation Rate] Stat Lab 08/16/24 21:41 Completed HIV (1&2) Antibody Rapid Stat Lab 08/16/24 20:52 Completed Hep C Ab with Reflex to RNA Stat Lab 08/16/24 20:52 Received PT INR [Prothrombin Time INR] Stat Lab 08/16/24 20:52 Completed PTT [Activated Partial Thrombo Time] Stat Lab 08/16/24 20:52 Completed Medical Decision Narrative: In summary, this patient is a 69-year-old female presenting to the Emergency Department for evaluation of severe headache and blurry vision of her right eye. differential diagnoses considered include but are not limited to complex migraine, giant cell arteritis, acute angle-closure glaucoma, retinal detachment, CRAO, intracranial hemorrhage. Ruling out the most morbid conditions drove assessment. It should be noted patient's history includes migraines, hypertension, hyperlipidemia, diabetes, COPD, rheumatoid arthritis which may or may not be at goal therapy. This complicates all aspects of care by increasing patient's risk for morbidity. I reviewed patient's past medical records and noted she was just seen in the [facility] yesterday and diagnosed with bronchitis. She also was seen by cardiology last week for follow-up and was started on chlorthalidone 25 mg daily for edema and hypertension. On exam, the patient is sitting upright in bed in no acute distress. She has reassuring vital signs on cardiac telemetry with the exception of hypertension with systolics in the 160s, which appears to be around her baseline according to medical record review. She has no focal neurologic deficits on exam with the exception of blurry vision of the right eye but has intact visual franklin. She has some lacrimation of her right eye but otherwise ocular exam is reassuring with no injection, erythema, or other obvious concerns. She has a good palpable temporal arterial pulse without significant deficit. Ocular pressures are 13.9 in the right eye and 13.6 in the left eye. Workup included emergent stroke protocol scans as well as CBC, CMP, ESR, CRP. I independently interpreted CT scan prior to the radiologist read and noted no obvious intracranial hemorrhage or large space-occupying lesion. Please see their read for final interpretation. Labs were obtained that demonstrated reassuring chemistry without significant change, negative CRP and ESR. There was some delay in obtaining CBC and ESR because of issue with lab. I had an interactive discussion with [facility] radiologist who advised no obvious acute stroke or LVO. Visual acuity 20/100 left, 20/50 right, 20/50 both. I then initiated process of calling [facility] for neuro/ophthalmology consult at 2130 with concern for painful vision loss of the right eye. She does have extensive ocular history. I considered diagnosis of stroke and administration of thrombolytic given that she is within window, however I feel that painful vision loss does not fit stroke and she likely has other acute pathology going on. We have excluded acute angle-closure glaucoma with normal pressures. ESR and CRP negative making giant cell arteritis unlikely. In the meantime, I did administer a migraine cocktail of IV methylprednisolone 125 mg, IV Toradol, IV Reglan. Patient goes back and forth with regards to explaining the timeline of her vision loss to me. She notes that she had shingles back in July that affected her eye and then subsequently developed a fungal infection in her eye and almost lost her eye back in July of last year. She states she has had blurred vision since then, but she was just seen at the eye doctor a few days ago and was able to read some of the letters on the screen. Today, however, she states she cannot read any of the letters on the screen which is new and much worse than it was just a few days ago. She notes that while at the store, her vision had completely blacked out, and it has since improved but has not returned to her baseline prior to today. As of 2209, we are still waiting for callback At 2240 Dr. Martin with ophthalmology advised patient would need transfer to for evaluation, Dr. Sheppard in transfer center accepted to [facility] ED. Patient and family elect to go POV. Risk of not going explained to patient and family and they expressed understanding and agreement. EMS transport was offered but declined. She left to go to in stable condition. Critical Care Critical Care Time Critical Care Time: No
--- NOTE | 2024-08-16 20:54 | PC.NURSE ---
contacted lab in regards to sending labs in the stroke protocol bag, spoke with mellisa to confirm.
[2024-08-16 21:04] LABS: Albumin Level 4.7 g/dl (3.5-5.0); Chloride 100 mmol/L (98-107); Sodium 141 mmol/L (136-145)
[2024-08-16 21:07] LABS: Alanine Aminotransferase 36 U/L (12-78); Albumin/Globulin Ratio 1.1 (1.1-1.8); Alkaline Phosphatase 118 U/L (38-126); Aspartate Amino Transferase 36 U/L (14-36); Bilirubin,Total 0.6 mg/dl (0.2-1.3); Blood Urea Nitrogen 19 mg/dl (7-17); Carbon Dioxide 33 mmol/L (22.0-30.0); Creatinine Clearance Estimated 74 mL/min (50-200); Estimated Glomerular Filt Rate 72 ml/min (>60); GFR (African American) 87 ML/MIN (>60); Globulin 4.2 g/dL (1.3-3.2); Total Protein,Serum 8.9 g/dl (6.3-8.2)
[2024-08-16 21:08] LABS: Calcium 9.6 mg/dl (8.4-10.2); Glucose 189 mg/dl (74-100)
[2024-08-16 21:10] LABS: Activated Partial Thrombo Time 27.1 seconds (22.8-30.6); INR 0.92 (0.9-1.1); Prothrombin Time 10.4 seconds (10.1-12.5)
[2024-08-16 21:13] LABS: C-Reactive Protein 3.1 mg/L (0-4)
[2024-08-16] MEDS: 0.9 % SODIUM CHLORIDE 50 ML VIAL IV (21:15)
[2024-08-16] MEDS: IOPAMIDOL-370 (76%);100ML BOTTLE 80 ML IV (21:15)
[2024-08-16] MEDS: SODIUM CHLORIDE 0.9% 10ML SYR (RAD ONLY) 10 ML IV (21:15)
[2024-08-16 21:16] VITALS: BP 158/77; PULSE 99; O2SAT 94
--- NOTE | 2024-08-16 21:37 | PC.NURSE ---
Visual acuity Left: 20/100 Right: 20/50 Both: 20/50 This test was done while wearing her corrective lenses
[2024-08-16 21:39] VITALS: BP 159/82; PULSE 97; O2SAT 95
[2024-08-16] MEDS: KETOROLAC 30MG/ML VIAL 15 MG IV (21:47)
[2024-08-16] MEDS: METHYLPREDNISOLONE SOD SUCC 125MG VIAL 125 MG IV (21:47)
[2024-08-16] MEDS: ACETAMINOPHEN 500MG TAB 1000 MG PO (21:48)
[2024-08-16] MEDS: METOCLOPRAMIDE HCL 10MG/2ML VIAL 5 MG IVP (21:48)
[2024-08-16] MEDS: RINGERS SOLUTION,LACTATED 500 ML 999 ML IV (21:50)
[2024-08-16 21:54] LABS: Basophils # 0.1 K/mm3 (0-0.2); Basophils % 1.2 % (0.1-2.0); Eosinophils # 0.6 K/mm3 (0.0-0.4); Eosinophils % 8.1 % (0.1-12.0); Hemoglobin 13.9 g/dL (12.2-16.2); Lymphocytes # 2.7 K/mm3 (0.7-4.5); Mean Corpuscular HGB Conc 36.7 g/dL (31.8-35.4); Mean Corpuscular Hemoglobin 33.3 pg (27.0-31.2); Mean Corpuscular Volume 90.9 fl (81-99); Mean Platelet Volume 7.8 fl (7.4-10.4); Monocytes # 0.8 K/mm3 (0.1-1.0); Neutrophils # 3.1 K/mm3 (1.8-7.8); Neutrophils % 42.6 % (37.0-80.0); Platelet Count 203 K/mm3 (142-424); Red Blood Count 4.18 M/mm3 (4.20-5.40); White Blood Count 7.3 K/mm3 (4.8-10.8)
[2024-08-16 22:23] LABS: Erythrocyte Sedimentation Rate 19 mm/hr (0-30)
[2024-08-16 22:57] LABS: HIV (1&2) Antibody Rapid NONREACTIVE (NONREACTIVE)
[2024-08-16 23:10] VITALS: BP 151/90; PULSE 81; RESP 18; TEMP 36.6
[2024-08-18 10:10] LABS: HCV Ab Non Reactive (Non Reactive)
== END 2024-08-16 23:17 | disposition short-term general hospital (02) ==
PROVIDERS: Emergency Provider Emergency Medicine; PCP Family Medicine
DX: R51.9 Headache, unspecified (principal); H54.7 Unspecified visual loss
CPT/HCPCS: 70450; 70496; 70498; 71045; 80053; 85025; 85610; 85651; 85730; 86140; 86803; 87389; 96374; 96375; 99285; J1885; J2765; J2919; J7120; Q9967

== ENCOUNTER 2024-09-16 11:26 | Emergency (ER) | payer MEDICARE, MEDICAID, SELFPAY ==
[2024-09-16 12:05] VITALS: BP 177/90; PULSE 96; RESP 26; TEMP 37.3; O2SAT 94; BMI 34.0
--- NOTE | 2024-09-16 12:14 | EXP.UTC ---
Discharge Plan Disposition Patient Disposition: Home, Self-Care Condition: Good Prescriptions Prescriptions: New doxycycline hyclate 100 mg capsule 100 mg PO BID Qty: 20 0RF guaifenesin [Mucinex] 600 mg tablet extended release 12hr 600 - 1,200 mg PO BID PRN (Reason: cough) Qty: 30 0RF No Action (DME) OneTouch Ultra Test Strip See Rx Instructions .ROUTE .MEDSUPPLY Qty: 10 Patient Comments: USE TO CHECK BLOOD SUGAR DAILY DIRECTED Rx Instructions: As directed (DME) blood-glucose meter [OneTouch Ultra2 Meter] Misc See Rx Instructions .ROUTE .MEDSUPPLY Qty: 1 Patient Comments: USE TO CHECK BLOOD SUGAR DAILY Rx Instructions: As directed (DME) lancets [Ultra Thin Lancets] 30 gauge misc See Rx Instructions .ROUTE .MEDSUPPLY Qty: 100 Patient Comments: USE TO CHECK BLOOD SUGAR ONCE DAILY Rx Instructions: As directed meloxicam 15 mg tablet 15 mg PO DAILY Patient Comments: TAKE 1 TABLET BY MOUTH DAILY sucralfate 1 gram tablet 1 g PO QID Patient Comments: TAKE 1 TABLET BY MOUTH FOUR TIMES DAILY alendronate 70 mg tablet 70 mg PO WEEKLY Patient Comments: TAKE 1 TABLET BY MOUTH EVERY 7 DAYS valsartan 80 mg tablet 80 mg PO DAILY Patient Comments: TAKE 1 TABLET BY MOUTH DAILY chlorthalidone 25 mg tablet 25 mg PO DAILY Patient Comments: TAKE 1 TABLET BY MOUTH DAILY levothyroxine 75 mcg tablet 75 mcg PO DAILY Patient Comments: TAKE 1 TABLET BY MOUTH ONCE DAILY FOR THYROID DISEASE montelukast 10 mg tablet 10 mg PO DAILY Patient Comments: TAKE 1 TABLET BY MOUTH DAILY mirtazapine 15 mg tablet 15 mg PO HS Patient Comments: TAKE 1 TABLET BY MOUTH EVERY NIGHT gabapentin 100 mg capsule 100 mg PO TID Patient Comments: TAKE 1 CAPSULE BY MOUTH THREE TIMES DAILY fluticasone propion-salmeterol 100-50 mcg/dose blister with device 1 ea INHALATION BID Patient Comments: INHALE 1 PUFF BY MOUTH TWICE DAILY oxybutynin chloride 5 mg tablet 5 mg PO BID Patient Comments: TAKE 1 TABLET BY MOUTH TWICE DAILY fluticasone propionate 50 mcg/actuation spray,suspension 2 spray INTRANASAL DAILY memantine 10 mg tablet 10 mg PO DAILY Patient Comments: TAKE 1 TABLET BY MOUTH DAILY FOR MEMORY LOSS Jardiance 10 mg tablet 10 mg PO DAILY Patient Comments: TAKE 1 TABLET BY MOUTH DAILY Referrals Follow up/Referrals: Reza Panchal MD [Primary Care Provider] - See instructions Activity Restrictions/Add. Instructions Additional Instructions/Restrictions: Seperate doses of Doxycycline with your prescribed Sucrafate by 2 hours Take mucinex as prescribed Follow up with your Family Doctor and Pulmonology if no improvement or any worsening of symptoms Straight to ER if any life threatening symptoms Clinical Impressions Clinical Impression: Bronchitis Instructions Patient Instructions: Chronic Obstructive Pulmonary Disease, Doxycycline, Guaifenesin Print Language Print Language: [place] Discharge ED Provider: Haley Donis [facility] [place] General Stated complaint: LINDA, wheezing, weakness Mode of Arrival: Ambulatory Source of Information: Patient Limitations: No Limitations Time Seen by Provider: 09/16/24 12:15 Description of Symptoms (Recalled from Triage Doc. by RN): PATIENT C/O COUGH, WHEEZING, AND SOA THAT STARTED LAST WEEK HEENT Symptoms (Recalled from RN notes): No Resp Symptoms (Recalled from RN notes): Yes Skin Symptoms (Recalled from RN notes): No MS Symptoms (Recalled from RN notes): No Functional Status (Recalled from RN notes): WNL History of Present Illness Provider Complaint: Patient states that she has been having cough, chest congestion, wheezy and sore scratchy throat on and off for several months States that she will take antiboitics it will get better then it comes back States that since last week she has been having sinus congestion, drainage in the back of her throat, cough, wheezing on and off and chest congestion so today she came back in to see if she could get something else to help before it got too bad Related Data Home Medications ?Medication ?Instructions ?Recorded ?Confirmed blood sugar diagnostic (OneTouch #10 ea 07/05/24 09/16/24 Ultra Test strips) blood-glucose meter (OneTouch #1 ea 07/05/24 09/16/24 Ultra2 Meter) lancets 30 gauge (Ultra Thin #100 ea 07/05/24 09/16/24 Lancets) alendronate 70 mg tablet 70 mg PO WEEKLY 09/16/24 09/16/24 chlorthalidone 25 mg tablet 25 mg PO DAILY 09/16/24 09/16/24 empagliflozin 10 mg tablet 10 mg PO DAILY 09/16/24 09/16/24 (Jardiance) fluticasone 100 mcg-salmeterol 50 1 ea inhalation BID 09/16/24 09/16/24 mcg/dose blistr powdr for inhalation fluticasone propionate 50 2 spray intranasal DAILY 09/16/24 09/16/24 mcg/actuation nasal spray,suspension gabapentin 100 mg capsule 100 mg PO TID 09/16/24 09/16/24 levothyroxine 75 mcg tablet 75 mcg PO DAILY 09/16/24 09/16/24 meloxicam 15 mg tablet 15 mg PO DAILY 09/16/24 09/16/24 memantine 10 mg tablet 10 mg PO DAILY 09/16/24 09/16/24 mirtazapine 15 mg tablet 15 mg PO HS 09/16/24 09/16/24 montelukast 10 mg tablet 10 mg PO DAILY 09/16/24 09/16/24 oxybutynin chloride 5 mg tablet 5 mg PO BID 09/16/24 09/16/24 sucralfate 1 gram tablet 1 g PO QID 09/16/24 09/16/24 valsartan 80 mg tablet 80 mg PO DAILY 09/16/24 09/16/24 Previous Rx's ?Medication ?Instructions ?Recorded doxycycline hyclate 100 mg capsule 100 mg PO BID #20 caps 09/16/24 guaifenesin 600 mg tablet, 600 - 1,200 mg (1 - 2 x 600 mg) PO 09/16/24 extended release 12 hr (Mucinex) BID PRN cough #30 tabs Allergies Allergy/AdvReac Type Severity Reaction Status Date / Time hydrocodone Allergy Mild Verified 09/05/24 11:34 codeine AdvReac Mild Verified 09/05/24 11:34 Worker's Comp Is this a Worker's Comp case?: No [facility] Disclaimer: The information contained in this section may have been updated after the patient was seen, as this information can be updated by other users. 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 (Updated 09/16/24 @ 12:35 by Haley Donis APRN) History of DVT of lower extremity History of sleep apnea Bronchitis, mucopurulent recurrent Dyspnea on exertion Bronchiectasis Asthma Edema Hyperlipidemia associated with type 2 diabetes mellitus Urinary incontinence Onychomycosis Diabetic neuropathy Breast cancer screening by mammogram Dementia Diabetes mellitus Bronchitis COPD (chronic obstructive pulmonary disease) Colonoscopy planned Gallbladder anomaly Rheumatoid arthritis Osteoporosis Back pain Acid reflux disease Carpal tunnel syndrome Anxiety Hypothyroidism Sleep apnea High blood pressure Arthritis Varicose veins of ankle Depression Acute asthma Surgical History History of hernia repair Total knee replacement status Social History (Updated 09/05/24 @ 12:35 by NASEEM Martínez) Smoking Status: Former smoker alcohol intake: never substance use type: denies use current occupational status: unemployed Travel in the last 8 weeks: Inside the [place] ROS Obtained: Yes All systems reviewed & no additional complaints except as documented and Yes Systems reviewed as appropriate & no additional complaints except as documented Constitutional Constitutional: Reports system reviewed and no additional complaints, except as documented and Reports as per HPI ENT Ears, Nose, Mouth, and Throat: Reports system reviewed and no additional complaints, except as documented, Reports as per HPI, Reports sinus pain and Reports sinus pressure Cardiovascular Cardiovascular: Reports system reviewed and no additional complaints, except as documented and Reports as per HPI Respiratory Respiratory: Reports system reviewed and no additional complaints, except as documented, Reports as per HPI, Reports chest congestion, Reports cough and Reports wheezing (on and off with hx of COPD) Gastrointestinal Gastrointestingal: Reports system reviewed and no additional complaints, except as documented and as per HPI Genitourinary Female Genitourinary: Reports system reviewed and no additional complaints, except as documented and Reports as per HPI Allergic/Immunologic Allergic/Immunologic: Reports wheezing (on and off with hx of COPD) Physical Exam General General appearance: alert and in no apparent distress ENT ENT exam: Present mucous membranes moist Expanded ENT Exam Nose exam: Present sinus tenderness Throat exam: Present other (Pharyngeal erythema noted with PND) Neck Neck exam: Present normal inspection, full ROM and trachea midline; Absent tenderness Respiratory Respiratory exam: Present normal lung sounds bilaterally and wheezes (mild lower with mild rhochi noted clears with cough); Absent respiratory distress Cardiovascular Cardiovascular exam: Present regular rate, normal rhythm and normal heart sounds Neurological Exam Neurological exam: Present alert, oriented X3 and normal gait Medical Decision Making Medical Records Screening: Per USPSTF and CDC recommendations, given the prevalence of disease in our region, it is our hospital?s policy to screen for HIV and viral Hepatitis for all patients aged 18 and over and those with ongoing risk factors. Andre Inquiry Pt receiving controlled substance: No Andre was queried for this patient: No Vital Signs: 09/16/24 12:05 Temperature 99.2 F Temperature Source Oral Pulse Rate [Left Brachial] 96 H Respiratory Rate 26 H Blood Pressure [Left Arm] 177/90 H Blood Pressure Mean [Left Arm] 119 Blood Pressure Source [Left Arm] Automatic Cuff Blood Pressure Position [Left Arm] Sitting 02 Sat by Pulse Oximetry 94 L Oxygen Delivery Method Room Air Medical Decision Narrative: Discussed CXR with patient and she declined states that family with her couldnt wait, discussed risks with patient and she verbalized understanding, patient did have CXR on 08/16/24 Due to complaints will start on Doxycycline due to high rate of Walking pneumonia going around in the area, and prescribe Mucinex Patient educated to seperate dose of Doxycycline and her Sucrafate by 2 hours and she verbalized understanding Patient given strict return instructions and discussed Prednisone but she refused Patient being followed by Pulmonolgy also discussed transfer to the ED for more extensive work up and evaluation and she declined
[2024-09-16 12:35] VITALS: BP 177/90; PULSE 92; RESP 22; TEMP 37.3; O2SAT 94
== END 2024-09-16 12:37 | disposition home or self-care (01) ==
PROVIDERS: Emergency Provider Nurse Practitioner; PCP Family Medicine
DX: J40 Bronchitis, not specified as acute or chronic (principal); R06.02 Shortness of breath; R06.2 Wheezing; R53.1 Weakness; R05.9 Cough, unspecified; R09.89 Other specified symptoms and signs involving the circulatory and respiratory systems
CPT/HCPCS: 99212; G0381

== ENCOUNTER 2024-09-26 07:14 | Outpatient (CLI) | payer MEDICARE, MEDICAID, SELFPAY ==
--- NOTE | 2024-09-26 07:21 | CT_ITS ---
FINAL REPORT TECHNIQUE: Axial images through the chest was performed with and without contrast. Sagittal and coronal reformatted images were obtained and reviewed. This study was performed with techniques to keep radiation doses as low as reasonably achievable, (ALARA). Individualized dose reduction techniques using automated exposure control or adjustment of mA and/or kV according to the patient's size were employed. CLINICAL HISTORY: dyspnea,edema,cough,copd FINDINGS: There is moderate to severe coronary artery calcification. Mild scarring is identified. There is borderline sized mediastinal and hilar nodes, favor reactive. The heart is normal in size. There is no pleural or pericardial effusion. No suspicious pulmonary mass or nodule is identified. There is no acute inflammatory process. There is a small hiatal hernia. The patient is status postcholecystectomy. IMPRESSION: No acute process. Moderate to severe coronary artery calcification. Reviewed, Interpreted and Dictated by Primo Fernandes III, MD Transcribed by Fouzia Carlson Authenticated and [facility][1]
[2024-09-26 07:37] LABS: Blood Urea Nitrogen 17 mg/dl (7-17); Estimated Glomerular Filt Rate 62 ml/min (>60); GFR (African American) 76 ML/MIN (>60)
--- NOTE | 2024-09-26 08:00 | CA_ITS ---
APPROVED REPORT EXAM: Comprehensive 2D, Doppler, and color-flow Echocardiogram Modeling Manager: Pamela Burrows CRT Ht: 5 ft 0 in Wt: 195lbs BSA: 1.85 BP: 141/60 mmHg Indications: Rheumatic Fever, COPD, Shortness of Breath, Diabetes, Dyspnea, Hyperlipidemia, Hypertension/HDD, ex smoker 2D Dimensions LA Volume 61.70 mL LA Volume Index 33.263647 mL/m2 (M/F) 16-34 M-Mode Dimensions LA Diam 4.18 cm (1.9-4.0) TAPSE 1.83 (<1.7) LV Diastology E Decel Time 150 (160-240 msec) E/A Ratio 0.69 MED A' 11.00 cm/s LAT A' 12.60 cm/s Aortic Valve AO Peak GR. 3.90 mmHg Mitral Valve MV A Velocity 78.0 (40-130 cm/s) E/A Ratio 0.69 Pulmonary Valve PV Peak Velocity 95.0 (50-150 cm/s) Tricuspid Valve TR P. Velocity 192.00 cm/s RAP Estimate 10.00 mmHg RVSP 24.80 mmHg Left Ventricle The left ventricle is normal size. The left ventricular systolic function is normal. The left ventricular ejection fraction is within the normal range. There is increased LV wall thickness. There is normal LV segmental wall motion. Transmitral Doppler flow pattern suggests impaired LV relaxation. LVEF is 55%. Right Ventricle The right ventricle is normal size. The right ventricular systolic function is normal. Atria The left atrium size is normal. The right atrium size is normal. There is no Doppler evidence of interatrial shunt. Aortic Valve The aortic valve is mildly thickened. There is no aortic valvular stenosis. No aortic regurgitation is present. Mitral Valve The mitral valve leaflets are mildly thickened. No evidence of mitral valve stenosis. Mild mitral regurgitation. Tricuspid Valve Tricuspid valve is grossly normal in structure and function. Trace tricuspid regurgitation. There is insufficient TR jet to estimate RVSP. Pulmonic Valve The pulmonary valve is normal in structure. Trace pulmonic regurgitation. Great Vessels The aortic root is normal in size. IVC is normal in size and collapses >50% with inspiration. Pericardium There is no pericardial effusion. Other Information Study Quality: Fair Conclusion Normal biventricular systolic function. Mild MR. Electronically signed by : Dione Enriquez MD 10/02/2024 23:51:20
--- NOTE | 2024-09-26 08:00 | CA_ITS ---
FINAL REPORT CLINICAL HISTORY: edema COMPARISON: None FINDINGS: Color Doppler, duplex Doppler and compression sonography of the bilateral lower extremities was performed. There is no evidence of deep venous thrombosis from the level of the groin to the calf. The deep veins are patent and compressible. Common femoral vein IMPRESSION: No evidence of deep venous thrombosis bilateral lower extremities. Reviewed, Interpreted and Dictated by Primo Fernandes III, MD Transcribed by Natalie Santana Authenticated and . [facility]
[2024-09-26] MEDS: IOPAMIDOL-370 (76%);100ML BOTTLE 75 ML IV (08:04)
[2024-09-26] MEDS: SODIUM CHLORIDE 0.9% 10ML SYR (RAD ONLY) 10 ML IV (08:04)
== END 2024-09-26 23:59 | disposition home or self-care (01) ==
PROVIDERS: PCP Family Medicine; Visit Provider Physician Assistant
DX: J44.9 Chronic obstructive pulmonary disease, unspecified (principal); R06.09 Other forms of dyspnea; R60.9 Edema, unspecified; Z86.718 Personal history of other venous thrombosis and embolism
CPT/HCPCS: 36415; 71270; 82565; 84520; 93306; 93970; Q9967

== ENCOUNTER 2024-10-03 07:48 | Outpatient (CLI) | payer MEDICARE, MEDICAID, SELFPAY ==
[2024-10-03] MEDS: ALBUTEROL 0.083% 2.5 MG/3 ML NEB IH (08:52)
== END 2024-10-03 23:59 | disposition home or self-care (01) ==
LOC: RT 07:49
PROVIDERS: PCP Family Medicine; Visit Provider Internal Medicine Pulmonary Disease
DX: R06.09 Other forms of dyspnea (principal)
CPT/HCPCS: 94060; 94618; 94726; 94729; J7613

== ENCOUNTER 2024-10-07 08:13 | Day surgery (SDC) | payer MEDICARE, MEDICAID, SELFPAY ==
[2024-10-07] VITALS (9 sets, daily range): BP systolic 113–154; BP diastolic 40–73; PULSE 56–93; RESP 18–20; O2SAT 92–100; BMI 33.8
--- NOTE | 2024-10-07 07:30 | IR_ITS ---
APPROVED REPORT Patient Location: Outpatient [facility] Product Specialist: MARILEE Meier RT (R) PROCEDURES Selective coronary angiogram Drug-eluting stent deployment to the proximal mid dominant right coronary artery INDICATION Coronary artery disease, Abnormal CTA, Angina pectoris Informed consent was obtained prior to the procedure. COMPLICATIONS NONE Estimated Blood Loss: LESS THAN 10 ML TECHNIQUE One percent lidocaine used to anesthetize the right anterior aspect of the wrist. The right radial artery was accessed via the Seldinger technique. A 6 Setswana sheath was placed in the right radial artery. 2.5 mg of Verapamil, 800 mcg of nitroglycerin, 1mg Lidocaine and 5000 U Heparin were given through the arterial sheath. The papa catheter and 6 Setswana JL 3 guide catheter were used to perform selective coronary angiogram. At the end the diagnostic angiogram therapeutic heparin was administered giving a therapeutic ACT and the guide catheter was placed in the right coronary artery followed by Choice PT extra-support wire. A 3.5 x 38 mm Kedar frontier stent was deployed in the proximal to mid right coronary artery at 24 niharika reducing the stenosis to 0%. KAMI-3 flow was present before and after the procedure. At the end the procedure the apparatus was removed the sheath was removed and hemostasis was achieved using TR banding patient was transferred to the postop putting in stable condition ANGIOGRAPHIC RESULTS The left main artery Is calcified and has an ostial 30% stenosis The left anterior descending artery Is mildly calcified and has proximal 10% stenosis The circumflex artery Nondominant yet still large and normal The right coronary artery Is large dominant with a proximal 70% and mid vessel 60% stenosis The FREY ventriculogram reveals Not performed The left ventricular end-diastolic pressure Not measured IMPRESSION Moderate to severe disease in the proximal and mid dominant right coronary artery with successful stenting reducing both lesions to 0% with 1 drug-eluting stent Calcification of the left main artery which is best managed medically PLAN 1. Effient and aspirin 2. LDL less than 55 to be achieved with high intensity statin 3. Cardiac rehabilitation 4. Avoidance of tobacco products 5. Risk factor modification Electronically signed by : Justin Rosen MD 10/07/2024 12:43:17
[2024-10-07 08:46] LABS: Chloride 103 mmol/L (98-107); Potassium 3.8 mmoL/L (3.5-5.1); Sodium 136 mmol/L (136-145)
[2024-10-07 08:48] LABS: Hemoglobin 14.1 g/dL (12.2-16.2); Red Blood Count 4.72 M/mm3 (4.20-5.40); White Blood Count 7.1 K/mm3 (4.8-10.8)
[2024-10-07 08:49] LABS: Anion Gap 5.8 mEq/L (5-15); Basophils % 0.7 % (0.1-2.0); Blood Urea Nitrogen 16 mg/dl (7-17); Carbon Dioxide 31 mmol/L (22.0-30.0); Creatinine Clearance Estimated 75 mL/min (50-200); Eosinophils % 10.2 % (0.1-12.0); Estimated Glomerular Filt Rate 62 ml/min (>60); GFR (African American) 76 ML/MIN (>60); Hematocrit 43.3 % (37.0-47.0); Lymphocytes # 2.7 K/mm3 (0.7-4.5); Lymphocytes % 38.3 % (10-50); Mean Corpuscular HGB Conc 32.6 g/dL (31.8-35.4); Mean Corpuscular Hemoglobin 29.9 pg (27.0-31.2); Mean Corpuscular Volume 91.7 fl (81-99); Mean Platelet Volume 9.8 fl (7.4-10.4); Monocytes % 14.3 % (1.7-9.3); Neutrophils # 2.6 K/mm3 (1.8-7.8); Neutrophils % 36.2 % (37.0-80.0); Platelet Count 237 K/mm3 (142-424); Red Cell Distribution Width 12.8 % (11.5-17.5)
[2024-10-07 08:50] LABS: Basophils # 0.1 K/mm3 (0-0.2); Calcium 9.3 mg/dl (8.4-10.2); Eosinophils # 0.7 K/mm3 (0.0-0.4); Glucose 96 mg/dl (74-100)
[2024-10-07] MEDS: LIDOCAINE 1% 10ML MDV 20 ML IJ (11:50)
[2024-10-07] MEDS: diphenhydrAMINE 50MG/ML VIAL 50 MG IV (11:50)
[2024-10-07] MEDS: NITROGLYCERIN 800MCG/8ML SYR (CATH LAB) 800 MCG IA (11:52)
[2024-10-07] MEDS: 0.9 % SODIUM CHLORIDE 500 ML 25 ML IV (11:53)
[2024-10-07] MEDS: HEPARIN 1,000 UNITS/500ML NS (CATH LAB) 3000 UNIT IV (11:53)
[2024-10-07] MEDS: VERAPAMIL 2.5MG/ML 2ML VIAL 2.5 MG IV (11:53)
[2024-10-07] MEDS: FENTANYL 100MCG/2ML VIAL 50 MCG IV (11:54)
[2024-10-07] MEDS: MIDAZOLAM HCL 1MG/ML 5ML VIAL 1 MG IV (11:54)
[2024-10-07] MEDS: HEPARIN 1,000 UNITS/ML 10ML VIAL (CATH LAB) 10000 UNIT IV (12:18)
[2024-10-07] MEDS: PRASUGREL 10MG TAB 60 MG PO (13:03)
[2024-10-07] MEDS: IOPAMIDOL-370 (76%);100ML BOTTLE 60 ML IV (13:21)
[2024-10-07 13:25] LABS: CATHL Activated Clotting Time > 400 SEC (74-125)
== END 2024-10-07 15:08 | disposition home or self-care (01) ==
PROVIDERS: PCP Family Medicine; Visit Provider Internal Medicine
DX: I25.10 Atherosclerotic heart disease of native coronary artery without angina pectoris (principal); R07.9 Chest pain, unspecified; R06.09 Other forms of dyspnea; Z95.5 Presence of coronary angioplasty implant and graft; I77.1 Stricture of artery; E11.9 Type 2 diabetes mellitus without complications; Z79.899 Other long term (current) drug therapy; I10 Essential (primary) hypertension
CPT/HCPCS: 80048; 85025; 85347; 92928; 99152; C1725; C1769; C1874; C9600; J1200; J1644; J2250; J3010; Q9967

== ENCOUNTER 2024-10-09 12:01 | Emergency (ER) | payer MEDICARE, MEDICAID, SELFPAY ==
[2024-10-09] VITALS (8 sets, daily range): BP systolic 102–138; BP diastolic 56–84; PULSE 89–111; RESP 16–25; TEMP 36.4–36.7; O2SAT 90–100; BMI 36.7
--- NOTE | 2024-10-09 12:10 | ECG_ITS ---
APPROVED REPORT Exam: Resting ECG HR:91 bpm ECG Measurements Heart Rate 91 AXES WI 149 P 59 QRSd 89 QRS -24 QT 340 T 30 QTc 389 Conclusion SINUS RHYTHM BORDERLINE LEFT AXIS DEVIATION [QRS AXIS < -20] LOW QRS VOLTAGE IN PRECORDIAL LEADS [QRS DEFLECTION < 1.0 mV IN CHEST LEADS] BORDERLINE ECG Electronically signed by : URSULA MANRIQUE, 10/12/2024 07:13:06
--- NOTE | 2024-10-09 12:18 | XR_ITS ---
PROCEDURE INFORMATION: Exam: XR Chest Exam date and time: 10/09/2024 12:27 PM Age: 69 years old Clinical indication: Cough TECHNIQUE: Imaging protocol: Radiologic exam of the chest. Views: 2 views. COMPARISON: CT CHEST WO/W CON 09/26/2024 7:49 AM FINDINGS: Lungs: Small nodules project over the posterior mid and lower lungs. Lungs are otherwise clear. Pleural spaces: Unremarkable. No pleural effusion. No pneumothorax. Heart/Mediastinum: Cardiomegaly. Bones/joints: Unremarkable. IMPRESSION: 1. Small nodules project over the posterior mid and lower lungs. Lungs are otherwise clear. Concerning for infectious (including atypical) versus inflammatory etiology. Recommend imaging follow-up to resolution. 2. Cardiomegaly.
[2024-10-09 12:28] LABS: Hemoglobin 13.8 g/dL (12.2-16.2); Mean Corpuscular Hemoglobin 30.3 pg (27.0-31.2); Mean Corpuscular Volume 92.1 fl (81-99); Red Blood Count 4.56 M/mm3 (4.20-5.40); White Blood Count 11.9 K/mm3 (4.8-10.8)
[2024-10-09 12:29] LABS: Basophils # 0.1 K/mm3 (0-0.2); Basophils % 0.5 % (0.1-2.0); Eosinophils # 0.7 K/mm3 (0.0-0.4); Eosinophils % 5.9 % (0.1-12.0); Lymphocytes # 2.4 K/mm3 (0.7-4.5); Lymphocytes % 20.4 % (10-50); Mean Corpuscular HGB Conc 32.9 g/dL (31.8-35.4); Mean Platelet Volume 9.9 fl (7.4-10.4); Monocytes # 1.1 K/mm3 (0.1-1.0); Monocytes % 9.3 % (1.7-9.3); Neutrophils # 7.6 K/mm3 (1.8-7.8); Neutrophils % 63.6 % (37.0-80.0); Platelet Count 218 K/mm3 (142-424); Red Cell Distribution Width 12.9 % (11.5-17.5)
[2024-10-09 12:29] LABS: Lactate Venous 1.9 mmol/L (0.4-2.0); VBG Base Excess 1.2 mmol/L (-2.4-2.3); VBG HCO3 25.8 mmol/L (23-30); VBG Oxygen Saturation 76.7 % (50-70); VBG PCO2 41.3 mmol/L (35-51); VBG PH 7.41 mmol/L (7.31-7.41); VBG PO2 39.7 mmol/L (28-40)
--- NOTE | 2024-10-09 12:32 | ED_ITS ---
Discharge Plan Disposition Patient Disposition: Home, Self-Care Prescriptions Prescriptions: New prednisone 50 mg tablet 50 mg PO DAILY 3 Days Qty: 3 0RF doxycycline hyclate 100 mg tablet 100 mg PO BID 7 Days Qty: 14 0RF No Action (DME) OneTouch Ultra Test Strip See Rx Instructions .ROUTE .MEDSUPPLY Qty: 10 Patient Comments: USE TO CHECK BLOOD SUGAR DAILY DIRECTED Rx Instructions: As directed (DME) blood-glucose meter [OneTouch Ultra2 Meter] Misc See Rx Instructions .ROUTE .MEDSUPPLY Qty: 1 Patient Comments: USE TO CHECK BLOOD SUGAR DAILY Rx Instructions: As directed (DME) lancets [Ultra Thin Lancets] 30 gauge misc See Rx Instructions .ROUTE .MEDSUPPLY Qty: 100 Patient Comments: USE TO CHECK BLOOD SUGAR ONCE DAILY Rx Instructions: As directed potassium chloride 10 mEq tablet,ER particles/crystals 10 meq PO DAILY Patient Comments: TAKE 1 TABLET BY MOUTH DAILY metoprolol succinate 50 mg tablet extended release 24 hr 50 mg PO Q12H Patient Comments: TAKE 1 TABLET BY MOUTH EVERY 12 HOURS atorvastatin 20 mg tablet 20 mg PO DAILY Patient Comments: TAKE 1 TABLET BY MOUTH DAILY pantoprazole 40 mg tablet,delayed release (DR/EC) 40 mg PO DAILY Patient Comments: TAKE 1 TABLET BY MOUTH TWICE DAILY fluticasone propion-salmeterol [Advair Diskus] 250-50 mcg/dose blister with device 1 inh inhalation BID 90 Days Qty: 180 3RF azelastine 137 mcg (0.1 %) spray,non-aerosol 1 spray intranasal .q6 PRN (Reason: allergy symptoms) 90 Days Qty: 30 3RF Rx Instructions: administer into each nostril erythromycin 5 mg/gram (0.5 %) ointment Eye-Right DAILY Jardiance 10 mg tablet 10 mg PO DAILY Qty: 90 0RF meloxicam 15 mg tablet 15 mg PO DAILY Patient Comments: TAKE 1 TABLET BY MOUTH DAILY sucralfate 1 gram tablet 1 g PO QID Patient Comments: TAKE 1 TABLET BY MOUTH FOUR TIMES DAILY alendronate 70 mg tablet 70 mg PO WEEKLY Patient Comments: TAKE 1 TABLET BY MOUTH EVERY 7 DAYS valsartan 80 mg tablet 80 mg PO DAILY Patient Comments: TAKE 1 TABLET BY MOUTH DAILY chlorthalidone 25 mg tablet 25 mg PO DAILY Patient Comments: TAKE 1 TABLET BY MOUTH DAILY levothyroxine 75 mcg tablet 75 mcg PO DAILY Patient Comments: TAKE 1 TABLET BY MOUTH ONCE DAILY FOR THYROID DISEASE montelukast 10 mg tablet 10 mg PO DAILY Patient Comments: TAKE 1 TABLET BY MOUTH DAILY gabapentin 100 mg capsule 100 mg PO TID Patient Comments: TAKE 1 CAPSULE BY MOUTH THREE TIMES DAILY oxybutynin chloride 5 mg tablet 5 mg PO BID Patient Comments: TAKE 1 TABLET BY MOUTH TWICE DAILY fluticasone propionate 50 mcg/actuation spray,suspension 2 spray INTRANASAL DAILY memantine 10 mg tablet 10 mg PO DAILY Patient Comments: TAKE 1 TABLET BY MOUTH DAILY FOR MEMORY LOSS prasugrel [Effient] 10 mg Tablet 10 mg PO DAILY 30 Days Qty: 30 6RF aspirin 81 mg Tablet 81 mg PO DAILY Referrals Follow up/Referrals: Reza Panchal MD [Primary Care Provider] - See instructions Activity Restrictions/Add. Instructions Additional Instructions/Restrictions: At this time it was felt you are safe to be discharged home. If new or worsening symptoms please do not hesitate to return the emergency department. Please take your medications as prescribed and continue to follow-up with your lung doctor on an outpatient basis to ensure resolution. Please have them recheck your magnesium as it was a little bit low today. Clinical Impressions Clinical Impression: Atypical pneumonia, COPD exacerbation, Hypomagnesemia Print Language Print Language: Swazi Discharge ED Provider: Joss Guzman General Adult HPI General Chief complaint: Arrhythmia/Palpitations Stated complaint: Heart fluttering,racing Time Seen by Provider: 10/09/24 12:15 Mode of Arrival: Wheelchair Source of Information: Patient Limitations: No Limitations Description of Symptoms (Recalled from ER Triage Doc. by RN): PT REPORTS HEART RACING AND FLUTTER THAT STARTED ABOUT [id number] THIS AM WHILE AT REST. RECENT HEART STENT PLACED. PT DENIES CHEST PAIN. DOES REPORTS SHORTNESS OF BREATH MORE THAN NORMAL. REPORTS COUGH X 2 MONTHS. WEARS HOME O2 AT NIGHT History of Present Illness HPI narrative: Patient is a 69-year-old female with past medical history of allergic rhinitis, asthma versus COPD, [id number] diabetes who presents emergency department for evaluation of cough and intermittent heart racing. With the specter cough it has been persistent, intermittent and severely paroxysmal for the last 2 months. She is upset with her computer system technician who is of the opinion that it is allergies. She has seen different computer system technician some of which told her she has COPD some of which told her she has asthma. Per chart review she is on fluticasone salmeterol at home. She states that she wears 3 L nasal cannula at night. With respect to intermittent heart racing it started this morning and comes and goes while at rest. No chest pain reported. No other acute complaints at this time. Related Data Home Medications ?Medication ?Instructions ?Recorded ?Confirmed blood sugar diagnostic (OneTouch #10 ea 07/05/24 10/03/24 Ultra Test strips) blood-glucose meter (OneTouch #1 ea 07/05/24 10/03/24 Ultra2 Meter) lancets 30 gauge (Ultra Thin #100 ea 07/05/24 10/03/24 Lancets) alendronate 70 mg tablet 70 mg PO WEEKLY 09/16/24 10/03/24 chlorthalidone 25 mg tablet 25 mg PO DAILY 09/16/24 10/03/24 fluticasone propionate 50 2 spray intranasal DAILY 09/16/24 10/03/24 mcg/actuation nasal spray,suspension gabapentin 100 mg capsule 100 mg PO TID 09/16/24 10/03/24 levothyroxine 75 mcg tablet 75 mcg PO DAILY 09/16/24 10/03/24 meloxicam 15 mg tablet 15 mg PO DAILY 09/16/24 10/03/24 memantine 10 mg tablet 10 mg PO DAILY 09/16/24 10/03/24 montelukast 10 mg tablet 10 mg PO DAILY 09/16/24 10/03/24 oxybutynin chloride 5 mg tablet 5 mg PO BID 09/16/24 10/03/24 sucralfate 1 gram tablet 1 g PO QID 09/16/24 10/03/24 valsartan 80 mg tablet 80 mg PO DAILY 09/16/24 10/03/24 erythromycin 5 mg/gram (0.5 %) eye Eye-Right DAILY 09/18/24 10/03/24 ointment atorvastatin 20 mg tablet 20 mg PO DAILY 10/03/24 10/03/24 metoprolol succinate 50 mg 50 mg PO Q12H 10/03/24 10/03/24 tablet,extended release 24 hr pantoprazole 40 mg tablet,delayed 40 mg PO DAILY 10/03/24 10/03/24 release potassium chloride 10 mEq 10 meq PO DAILY 10/03/24 10/03/24 tablet,extended release(part/cryst) aspirin 81 mg tablet 81 mg PO DAILY 10/07/24 10/07/24 Previous Rx's ?Medication ?Instructions ?Recorded azelastine 137 mcg (0.1 %) nasal 1 spray intranasal .q6 PRN allergy 10/03/24 spray symptoms 90 days #30 mL fluticasone 250 mcg-salmeterol 50 1 inh inhalation BID 90 days #180 10/03/24 mcg/dose blistr powdr for ea inhalation (Advair Diskus) empagliflozin 10 mg tablet 10 mg PO DAILY #90 tabs 10/07/24 (Jardiance) prasugrel 10 mg tablet (Effient) 10 mg PO DAILY 30 days #30 tabs 10/07/24 doxycycline hyclate 100 mg tablet 100 mg PO BID atypical pneumonia 7 10/09/24 days #14 tabs prednisone 50 mg tablet 50 mg PO DAILY COPD Exacerbation 3 10/09/24 days #3 tabs Allergies Allergy/AdvReac Type Severity Reaction Status Date / Time hydrocodone Allergy Mild Verified 10/03/24 11:10 codeine AdvReac Mild Verified 10/03/24 11:10 PFSH [facility] Disclaimer: The information contained in this section may have been updated after the patient was seen, as this information can be updated by other users. 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 (Updated 10/09/24 @ 14:50 by Joss Guzman MD) Allergic rhinitis Coronary artery calcification seen on CAT scan Chest pain Fatigue History of DVT of lower extremity History of sleep apnea Bronchitis, mucopurulent recurrent Dyspnea on exertion Bronchiectasis Asthma Edema Hyperlipidemia associated with type 2 diabetes mellitus Urinary incontinence Onychomycosis Diabetic neuropathy Breast cancer screening by mammogram Dementia Diabetes mellitus Bronchitis COPD (chronic obstructive pulmonary disease) Colonoscopy planned Gallbladder anomaly Rheumatoid arthritis Osteoporosis Back pain Acid reflux disease Carpal tunnel syndrome Anxiety Hypothyroidism Sleep apnea High blood pressure Arthritis Varicose veins of ankle Depression Acute asthma Surgical History History of cataract surgery History of esophagogastroduodenoscopy (EGD) H/O right heart catheterization History of cholecystectomy H/O tubal ligation History of hernia repair Total knee replacement status Social History Smoking Status: Never smoker alcohol intake: never substance use type: denies use current occupational status: unemployed Travel in the last 8 weeks: None Have you lived/traveled outside [place] in past 30 days?: No Contact w/someone who lives/traveled outside [place] past 30 days?: No Exposure to someone with infectious disease in past 14 days?: No Do you have a fever (greater than 100.4 F or 38 C)?: No Have you tested positive for COVID-19: No Exposed to someone with COVID-19 in past 14 days?: No Do you have a sore throat?: No Do you have a cough?: No Do you have any weakness?: No Do you have any diarrhea?: No Are you experiencing any unusual bleeding?: No Do you have any muscle aches/pain?: No Do you have any abdominal pain?: No Are you experiencing loss of taste or smell?: No Other 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 Have you received the Pneumonia Vaccine: Yes ROS Obtained: Yes Systems reviewed as appropriate & no additional complaints except as documented Physical Exam General General appearance: alert Comment: Significant hacking cough throughout evaluation Head Head exam: atraumatic and normocephalic Eye Eye exam: Present PERRL ENT ENT exam: Present mucous membranes moist Neck Neck exam: Present normal inspection Chest Chest inspection: Present normal inspection and symmetric chest wall rise Respiratory Respiratory exam: Present wheezes (Biphasic wheezes in all lung [place]); Absent normal lung sounds bilaterally Cardiovascular Cardiovascular exam: Present regular rate and normal rhythm Abdominal Exam Abdominal exam: Present soft; Absent tenderness Extremities Exam Extremities exam: Present normal inspection Neurological Exam Neurological exam: Present alert Psychiatric Psychiatric exam: Present normal affect Skin Skin exam: Present warm and dry Medical Decision Making Medical Records Screening: Per USPSTF and CDC recommendations, given the prevalence of disease in our region, it is our hospital?s policy to screen for HIV and viral Hepatitis for all patients aged 18 and over and those with ongoing risk factors. Andre Inquiry Pt receiving controlled substance: No Vital Signs: 10/09/24 12:03 10/09/24 12:30 10/09/24 12:45 Temperature 97.6 F Temperature Source Oral Pulse Rate 111 H 98 H Pulse Rate [Apical] 89 Respiratory Rate 18 24 Blood Pressure 138/84 138/84 Blood Pressure [Right Arm] 137/71 Blood Pressure Mean [Right Arm] 93 Blood Pressure Source [Right Arm] Automatic Cuff Blood Pressure Position [Right Arm] Sitting 02 Sat by Pulse Oximetry 95 90 L 92 L Oxygen Delivery Method Room Air Room Air 10/09/24 13:00 10/09/24 13:30 10/09/24 14:00 Temperature Temperature Source Pulse Rate 95 H 98 H 107 H Pulse Rate [Apical] Respiratory Rate 25 H 17 16 Blood Pressure 102/57 L 121/61 134/66 Blood Pressure [Right Arm] Blood Pressure Mean [Right Arm] Blood Pressure Source [Right Arm] Blood Pressure Position [Right Arm] 02 Sat by Pulse Oximetry 99 100 91 L Oxygen Delivery Method Room Air Room Air Room Air 10/09/24 14:30 Temperature Temperature Source Pulse Rate 100 H Pulse Rate [Apical] Respiratory Rate 18 Blood Pressure 122/56 L Blood Pressure [Right Arm] Blood Pressure Mean [Right Arm] Blood Pressure Source [Right Arm] Blood Pressure Position [Right Arm] 02 Sat by Pulse Oximetry 94 L Oxygen Delivery Method Room Air Lab Data Lab Results 10/09/24 11:00: Chlamy pneumoniae PCR Not detected, Adenovirus (PCR) Not detected, B. pertussis DNA (PCR) Not detected, Coronavirus OC43 (PCR) Not detected, Coronavirus HKU1 (PCR) Not detected, Coronavirus 229E (PCR) Not detected, SARS-CoV-2 (PCR) Not detected, Coronavirus NL63 (PCR) Not detected, Human Metapneumovir PCR Not detected, Influenza A (H1) PCR Not detected, Influ A (H1N1/09) PCR Not detected, Influenza A (H3) PCR Not detected, Influenza Type A (PCR) Not detected, Influenza Type B (PCR) Not detected, M. pneumoniae (PCR) Not detected, Parainfluenza 1 (PCR) Not detected, Parainfluenza 2 (PCR) Not detected, Parainfluenza 3 (PCR) Not detected, Parainfluenza 4 (PCR) Not detected, RSV (PCR) Not detected, Entero/Rhino (PCR) Not detected 10/09/24 12:00: Magnesium 1.5 L 10/09/24 12:15: WBC 11.9 H D, RBC 4.56, Hgb 13.8, Hct 42.0, MCV 92.1, MCH 30.3, MCHC 32.9, RDW 12.9, Plt Count 218, MPV 9.9, Neut % (Auto) 63.6, Lymph % (Auto) 20.4, [place] % (Auto) 9.3, Eos % (Auto) 5.9, Baso % (Auto) 0.5, Neut # (Auto) 7.6, Lymph # (Auto) 2.4, [place] # (Auto) 1.1 H, Eos # (Auto) 0.7 H, Baso # (Auto) 0.1, Sodium 138, Potassium 4.1, Chloride 106, Carbon Dioxide 30, Anion Gap 6.1, BUN 19 H, Creatinine 0.90, Estimated Creat Clear 73, Estimated GFR 62, Est GFR ( Amer) 76, Glucose 107 H, Calcium 9.6, Total Bilirubin 0.6, AST 39 H, ALT 27, Alkaline Phosphatase 96, Troponin I < 0.01, NT-Pro-B Natriuret Pep 48.3, Total Protein 7.3, Albumin 4.1, Globulin 3.2, Albumin/Globulin Ratio 1.3, TSH 2.89, Free T4 1.52 10/09/24 12:19: VBG pH 7.41, VBG pCO2 41.3, VBG pO2 39.7, VBG HCO3 25.8, VBG Total CO2 27.0, VBG O2 Saturation 76.7 H, VBG Base Excess 1.2, VBG Lactic Acid 1.9 10/09/24 12:15 10/09/24 12:15 Orders (Tests/Meds): ED MEDICATIONS Generic Name Dose Route Start Last Admin Trade Name Freq PRN Reason Stop Dose Admin Albuterol/Ipratropium 9 ml 10/09/24 12:30 10/09/24 12:46 Ipratropium/Albuterol 3 Ml Neb IH 10/09/24 12:31 9 ml ONCE ONE Administration Magnesium Oxide 400 mg 10/09/24 14:41 10/09/24 14:48 Magnesium Oxide 400mg Tablet PO 10/09/24 14:42 400 mg ONCE ONE Administration Methylprednisolone Sodium Succinate 125 mg 10/09/24 12:30 10/09/24 12:46 Methylprednisolone Sod Succ 125mg Vial IV 10/09/24 12:31 125 mg ONCE ONE Administration ORDERS Category Date Time Status CXR 2 view (NOT portable) [XR chest 2V] Stat Exams 10/09/24 12:18 Completed BNP [NT Pro Brain Natriuretic Pep.] Stat Lab 10/09/24 12:15 Completed CBC w/Auto Diff [Complete Blood Count Auto Diff] Stat Lab 10/09/24 12:15 Completed CMP [Comprehensive Metabolic Panel] Stat Lab 10/09/24 12:15 Completed Free T4 (Free Thyroxine) Stat Lab 10/09/24 12:15 Completed Full Resp Panel w/COVID ([facility]) Routine Lab 10/09/24 11:00 Completed Magnesium Stat Lab 10/09/24 12:00 Completed TSH [Thyroid Stimulating Hormone] Stat Lab 10/09/24 12:15 Completed Trop I [Troponin I] Stat Lab 10/09/24 12:15 Completed Troponin I Q3H Lab 10/09/24 15:30 Ordered Troponin I Q3H Lab 10/09/24 18:30 Ordered VBG [Venous Blood Gas] Stat RT 10/09/24 12:19 Completed ECG Data Tracing #1: Independently turbid by me rate is 91, rhythm is regular, axis is normal, no ST elevation in anatomical contiguous leads, QTc 389. Medical Decision Narrative: In summary patient is 69-year-old female past medical history described above who presents emergency department for evaluation of chronic cough, acute onset palpitations. Patient is hemodynamically stable nontoxic-appearing upon arrival afebrile. With respect to her cough differential includes uncontrolled COPD versus asthma, pneumonia, atypical infection, among others. With respect to palpitations differential includes electrolyte abnormality, normal palpitation burden in the form PACs or PVCs, paroxysmal tachycardia, among others. Per review of cardiology catheterization report on 10-07-2024 patient had moderate to severe disease in the RCA which was treated with 1 drug-eluting stent for which outpatient therapy was being pursued afterwards. Workup we conducted with hematologic labs, chest x-ray, EKG, troponins, comprehensive viral swab. Initial inventions include DuoNebs x 3, methylprednisolone. Initial workup reviewed by me, leukocytosis 11.9 no anemia or thrombocytopenia, compensated acid-base status no critical electrolyte abnormality or MI. Mild hypomagnesemia which will be repleted orally initial troponin undetectably low thyroid studies normal. Chest x-ray informally interpreted by me, bilateral interstitial and nodular opacities some of which are chronic some of which appear to be new. Formal read shows small nodules projecting over the posterior mid and lower lungs concerning for infectious versus inflammatory radiology for which repeat imaging shows resolution was recommended. Upon repeat evaluation patient had total resolution of her wheezing and significant proved of her respiratory symptoms with saturating well on room air without respiratory distress. Patient with multiple hours of cardiac monitoring in the emergency department without any tacky dysrhythmia or significant PVC burden. Cardiac rhythm independently interpreted by me at 2:50 PM, rate is 95, rhythm is regular, sinus tachycardia, no PVCs on the limited strip. Given this I feel the patient is appropriate for outpatient management at this time and will be discharged with course of doxycycline and steroids and was given return precautions. Patient has metered-dose inhaler at home she was instructed to use and she will follow up next week for continued evaluation. Critical Care Critical Care Time Critical Care Time: No
[2024-10-09 12:33] LABS: Adenovirus,PCR Not Detected (NotDetected); Bordetella Pertussis Not Detected (NotDetected); Chlamydophila Pneumoniae, PCR Not Detected (NotDetected); Coronavirus 19, PCR Not Detected (NotDetected); Coronavirus 229E Not Detected (NotDetected); Coronavirus NL63 Not Detected (NotDetected); Coronavirus OC43 Not Detected (NotDetected); Coronovirus HKU1,PCR Not Detected (NotDetected); Human Metapneumovirus Not Detected (NotDetected); Influenza A, PCR Not Detected (NotDetected); Influenza AH1, 2009 Not Detected (NotDetected); Influenza AH1, PCR Not Detected (NotDetected); Influenza AH3,PCR Not Detected (NotDetected); Influenza B, PCR Not Detected (NotDetected); Mycoplasma Pneumoniae, PCR Not Detected (NotDetected); Parainfluenza 1, PCR Not Detected (NotDetected); Parainfluenza 2, PCR Not Detected (NotDetected); Parainfluenza 3, PCR Not Detected (NotDetected); Parainfluenza 4, PCR Not Detected (NotDetected); Respiratory Syncytial Virus Not Detected (NotDetected); Rhinovirus/Enterovirus Not Detected (NotDetected)
[2024-10-09 12:38] LABS: Albumin Level 4.1 g/dl (3.5-5.0); Chloride 106 mmol/L (98-107); Potassium 4.1 mmoL/L (3.5-5.1); Sodium 138 mmol/L (136-145)
[2024-10-09 12:41] LABS: Alanine Aminotransferase 27 U/L (12-78); Albumin/Globulin Ratio 1.3 (1.1-1.8); Alkaline Phosphatase 96 U/L (38-126); Anion Gap 6.1 mEq/L (5-15); Aspartate Amino Transferase 39 U/L (14-36); Bilirubin,Total 0.6 mg/dl (0.2-1.3); Blood Urea Nitrogen 19 mg/dl (7-17); Calcium 9.6 mg/dl (8.4-10.2); Carbon Dioxide 30 mmol/L (22.0-30.0); Creatinine Clearance Estimated 73 mL/min (50-200); Estimated Glomerular Filt Rate 62 ml/min (>60); GFR (African American) 76 ML/MIN (>60); Globulin 3.2 g/dL (1.3-3.2); Glucose 107 mg/dl (74-100); Total Protein,Serum 7.3 g/dl (6.3-8.2)
[2024-10-09] MEDS: METHYLPREDNISOLONE SOD SUCC 125MG VIAL 125 MG IV (12:46)
[2024-10-09] MEDS: IPRATROPIUM/ALBUTEROL 3 ML NEB 9 ML IH (12:46)
[2024-10-09 12:50] LABS: NT Pro Brain Natriuretic Pep. 48.3 pg/mL (0-125)
[2024-10-09 12:56] LABS: Magnesium 1.5 mg/dl (1.6-2.3)
[2024-10-09 13:01] LABS: Troponin I < 0.01 ng/ml (0.00-0.034)
[2024-10-09 13:13] LABS: Free T4 (Free Thyroxine) 1.52 ng/dl (0.78-2.19); Thyroid Stimulating Hormone 2.89 uIU/mL (0.465-4.68)
--- NOTE | 2024-10-09 13:40 | PC.NURSE ---
ROUNDED ON PT, REPORTS FEELING SOME BETTER. PT AND FAMILY UPDATED ON POC. NO NEEDS AT THIS TIME
[2024-10-09] MEDS: MAGNESIUM OXIDE 400MG TABLET 400 MG PO (14:48)
[2024-10-09] MEDS: DOXYCYCLINE HYCL 100 MG TABLET PO (14:59)
== END 2024-10-09 15:06 | disposition home or self-care (01) ==
PROVIDERS: Emergency Provider Emergency Medicine; PCP Family Medicine
DX: E83.42 Hypomagnesemia (principal); J44.1 Chronic obstructive pulmonary disease with (acute) exacerbation; J18.9 Pneumonia, unspecified organism; R00.2 Palpitations; R06.02 Shortness of breath; R05.9 Cough, unspecified
CPT/HCPCS: 71046; 80053; 82803; 83735; 83880; 84439; 84443; 84484; 85025; 87633; 93005; 96374; 99285; J2919; J7620

== ENCOUNTER 2024-10-10 11:42 | Outpatient (CLI) | payer MEDICARE, MEDICAID, SELFPAY ==
[2024-10-10 12:43] LABS: White Blood Count 12.7 K/mm3 (4.8-10.8)
[2024-10-10 12:44] LABS: Basophils % 0.2 % (0.1-2.0); Eosinophils % 0.1 % (0.1-12.0); Hematocrit 42.8 % (37.0-47.0); Hemoglobin 13.7 g/dL (12.2-16.2); Lymphocytes # 2.3 K/mm3 (0.7-4.5); Lymphocytes % 18.3 % (10-50); Mean Corpuscular Hemoglobin 30.4 pg (27.0-31.2); Mean Corpuscular Volume 94.9 fl (81-99); Mean Platelet Volume 10.5 fl (7.4-10.4); Monocytes # 1.4 K/mm3 (0.1-1.0); Monocytes % 10.9 % (1.7-9.3); Neutrophils # 8.9 K/mm3 (1.8-7.8); Neutrophils % 69.9 % (37.0-80.0); Platelet Count 192 K/mm3 (142-424); Red Blood Count 4.51 M/mm3 (4.20-5.40); Red Cell Distribution Width 13.1 % (11.5-17.5)
[2024-10-10 13:04] LABS: Anion Gap 17.9 mEq/L (5-15); Blood Urea Nitrogen 21 mg/dl (7-17); Calcium 9.6 mg/dl (8.4-10.2); Carbon Dioxide 21 mmol/L (22.0-30.0); Chloride 105 mmol/L (98-107); Estimated Glomerular Filt Rate 72 ml/min (>60); GFR (African American) 87 ML/MIN (>60); Glucose 148 mg/dl (74-100); Potassium 3.9 mmoL/L (3.5-5.1); Sodium 140 mmol/L (136-145)
== END 2024-10-10 23:59 | disposition home or self-care (01) ==
LOC: LAB 11:44
PROVIDERS: PCP Family Medicine; Visit Provider Internal Medicine
DX: Z79.01 Long term (current) use of anticoagulants (principal); Z95.5 Presence of coronary angioplasty implant and graft; I25.10 Atherosclerotic heart disease of native coronary artery without angina pectoris
CPT/HCPCS: 36415; 80048; 85025

== ENCOUNTER 2024-10-14 15:42 | Outpatient (CLI) | payer MEDICARE, MEDICAID, SELFPAY ==
[2024-10-14 16:58] LABS: Blood Urea Nitrogen 25 mg/dl (7-17); Calcium 9.5 mg/dl (8.4-10.2); Carbon Dioxide 31 mmol/L (22.0-30.0); Chloride 99 mmol/L (98-107); Estimated Glomerular Filt Rate 72 ml/min (>60); GFR (African American) 87 ML/MIN (>60); Glucose 93 mg/dl (74-100); Magnesium 1.2 mg/dl (1.6-2.3); Sodium 138 mmol/L (136-145)
== END 2024-10-14 23:59 | disposition home or self-care (01) ==
LOC: LAB 15:43
PROVIDERS: PCP Family Medicine; Visit Provider Nurse Practitioner
DX: R53.83 Other fatigue (principal); E11.69 Type 2 diabetes mellitus with other specified complication; E83.42 Hypomagnesemia
CPT/HCPCS: 36415; 80048; 83735

== ENCOUNTER 2024-10-29 09:11 | Outpatient (CLI) | payer MEDICARE, MEDICAID, SELFPAY ==
[2024-10-29 11:41] LABS: Magnesium 1.8 mg/dl (1.6-2.3)
== END 2024-10-29 23:59 | disposition home or self-care (01) ==
LOC: LAB 09:12
PROVIDERS: PCP Family Medicine; Visit Provider Nurse Practitioner
DX: E83.42 Hypomagnesemia (principal)
CPT/HCPCS: 36415; 83735

== ENCOUNTER 2024-11-07 11:45 | Outpatient (CLI) | payer MEDICARE, MEDICAID, SELFPAY ==
[2024-11-07 18:22] LABS: Basophils % 0.4 % (0.1-2.0); Eosinophils # 0.2 K/mm3 (0.0-0.4); Eosinophils % 2.4 % (0.1-12.0); Hematocrit 42.1 % (37.0-47.0); Hemoglobin 13.2 g/dL (12.2-16.2); Lymphocytes # 2.5 K/mm3 (0.7-4.5); Lymphocytes % 35.5 % (10-50); Mean Corpuscular HGB Conc 31.4 g/dL (31.8-35.4); Mean Corpuscular Hemoglobin 30.3 pg (27.0-31.2); Mean Corpuscular Volume 96.6 fl (81-99); Mean Platelet Volume 10.4 fl (7.4-10.4); Monocytes # 0.9 K/mm3 (0.1-1.0); Monocytes % 12.6 % (1.7-9.3); Neutrophils # 3.5 K/mm3 (1.8-7.8); Neutrophils % 48.7 % (37.0-80.0); Platelet Count 222 K/mm3 (142-424); Red Blood Count 4.36 M/mm3 (4.20-5.40); Red Cell Distribution Width 13.5 % (11.5-17.5); White Blood Count 7.1 K/mm3 (4.8-10.8)
[2024-11-07 18:36] LABS: Hemoglobin A1C 6.1 % (4.0-6.0)
[2024-11-07 19:24] LABS: Alanine Aminotransferase 25 U/L (12-78); Albumin Level 4.2 g/dl (3.5-5.0); Albumin/Globulin Ratio 1.4 (1.1-1.8); Alkaline Phosphatase 114 U/L (38-126); Anion Gap 10.4 mEq/L (5-15); Aspartate Amino Transferase 28 U/L (14-36); Bilirubin,Total 0.3 mg/dl (0.2-1.3); Blood Urea Nitrogen 15 mg/dl (7-17); Calcium 9.1 mg/dl (8.4-10.2); Carbon Dioxide 30 mmol/L (22.0-30.0); Chloride 101 mmol/L (98-107); Chol/HDL Ratio 3.2 (1-3.5); Cholesterol 134 mg/dl (140-200); Estimated Glomerular Filt Rate 62 ml/min (>60); GFR (African American) 76 ML/MIN (>60); Globulin 3.1 g/dL (1.3-3.2); Glucose 113 mg/dl (74-100); HDL Cholesterol 42 mg/dl (40-60); Potassium 4.4 mmoL/L (3.5-5.1); Sodium 137 mmol/L (136-145); Total Protein,Serum 7.3 g/dl (6.3-8.2); Triglycerides 291 mg/dl (30-150); VLDL Cholesterol 58 mg/dL (0-40)
[2024-11-07 19:36] LABS: Direct LDL Cholesterol 47.89 mg/dL (100-129)
[2024-11-07 19:53] LABS: Thyroid Stimulating Hormone 5.09 uIU/mL (0.465-4.68)
== END 2024-11-07 23:59 | disposition home or self-care (01) ==
LOC: LAB.DROPOF 11-08 10:04
PROVIDERS: PCP Family Medicine; Visit Provider Family Medicine
DX: J44.9 Chronic obstructive pulmonary disease, unspecified (principal); E03.9 Hypothyroidism, unspecified; E11.69 Type 2 diabetes mellitus with other specified complication; I25.10 Atherosclerotic heart disease of native coronary artery without angina pectoris; E78.5 Hyperlipidemia, unspecified; I10 Essential (primary) hypertension; M06.9 Rheumatoid arthritis, unspecified
CPT/HCPCS: 80053; 80061; 83036; 84443; 85025

== ENCOUNTER 2024-11-22 09:53 | Outpatient (CLI) | payer MEDICARE, MEDICAID, SELFPAY ==
--- NOTE | 2024-11-22 09:53 | MM_ITS ---
PROCEDURE INFORMATION: Exam: MG Bilateral Screening 3D Mammography Exam date and time: 11/22/2024 10:03 AM Age: 69 years old Clinical indication: Screening. No family history of breast cancer. TECHNIQUE: Imaging protocol: Bilateral Screening tomosynthesis and 2D mammography including computer-aided detection (CAD) when performed. COMPARISON: 1. MG MAMMO SCREENING DIGITAL TOMOSYNTHESIS BILATERAL W CAD 06/12/2023 8:18 AM 2. MG MAMMO SCREENING DIGITAL TOMOSYNTHESIS BILATERAL W CAD 08/14/2020 10:34 AM 3. MG MAMMO SCREENING DIGITAL TOMOSYNTHESIS BILATERAL W CAD 07/09/2019 8:48 AM FINDINGS: MAMMOGRAPHY: Breast composition: There are scattered areas of fibroglandular density. Mass: No suspicious mass. Architectural distortion: None. Calcifications: No suspicious calcifications. Asymmetric density: None. Skin thickening: None. Axillary adenopathy: None. IMPRESSION: No mammographic evidence of malignancy. Annual screening is recommended unless otherwise clinically indicated. ASSESSMENT: BI-RADS Category 1: Negative.
== END 2024-11-22 23:59 | disposition home or self-care (01) ==
LOC: RAD 09:53
PROVIDERS: PCP Family Medicine; Visit Provider Family Medicine
DX: Z12.31 Encounter for screening mammogram for malignant neoplasm of breast (principal)
CPT/HCPCS: 77063; 77067

== ENCOUNTER 2024-11-23 11:10 | Emergency (ER) | payer MEDICARE, MEDICAID, SELFPAY ==
[2024-11-23 12:50] VITALS: BP 112/62; PULSE 96; RESP 18; TEMP 37.1; O2SAT 92; BMI 37.5
[2024-11-23 12:55] LABS: UTC Influenza A Antigen Positive (Negative); UTC Influenza B Antigen Negative (Negative)
--- NOTE | 2024-11-23 13:00 | ED_ITS ---
Discharge Plan Disposition Patient Disposition: Home, Self-Care Condition: Good Prescriptions Prescriptions: New oseltamivir [Tamiflu] 75 mg capsule 75 mg PO BID 5 Days Qty: 10 0RF No Action (DME) OneTouch Ultra Test Strip See Rx Instructions .ROUTE .MEDSUPPLY Qty: 10 Patient Comments: USE TO CHECK BLOOD SUGAR DAILY DIRECTED Rx Instructions: As directed (DME) blood-glucose meter [OneTouch Ultra2 Meter] Misc See Rx Instructions .ROUTE .MEDSUPPLY Qty: 1 Patient Comments: USE TO CHECK BLOOD SUGAR DAILY Rx Instructions: As directed (DME) lancets [Ultra Thin Lancets] 30 gauge misc See Rx Instructions .ROUTE .MEDSUPPLY Qty: 100 Patient Comments: USE TO CHECK BLOOD SUGAR ONCE DAILY Rx Instructions: As directed Gemtesa 75 mg tablet 75 mg PO DAILY mirtazapine 15 mg tablet 15 mg PO HS Qty: 30 2RF potassium chloride 10 mEq tablet,ER particles/crystals 10 meq PO DAILY Patient Comments: TAKE 1 TABLET BY MOUTH DAILY atorvastatin 20 mg tablet 20 mg PO DAILY Patient Comments: TAKE 1 TABLET BY MOUTH DAILY pantoprazole 40 mg tablet,delayed release (DR/EC) 40 mg PO DAILY Patient Comments: TAKE 1 TABLET BY MOUTH TWICE DAILY fluticasone propion-salmeterol [Advair Diskus] 250-50 mcg/dose blister with device 1 inh inhalation BID 90 Days Qty: 180 3RF azelastine 137 mcg (0.1 %) spray,non-aerosol 1 spray intranasal .q6 PRN (Reason: allergy symptoms) 90 Days Qty: 30 3RF Rx Instructions: administer into each nostril erythromycin 5 mg/gram (0.5 %) ointment Eye-Right DAILY Jardiance 10 mg tablet 10 mg PO DAILY Qty: 90 0RF magnesium oxide 500 mg capsule 500 mg PO DAILY Qty: 30 1RF albuterol sulfate 90 mcg/actuation HFA aerosol inhaler 3 puff inhalation Q3H PRN (Reason: wheezing and shortness of breath) Qty: 8.5 0RF montelukast 10 mg tablet 10 mg PO DAILY Qty: 90 3RF metoprolol succinate 50 mg tablet extended release 24 hr 50 mg PO Q12H Qty: 60 2RF meloxicam 15 mg tablet 15 mg PO DAILY Qty: 30 2RF sucralfate 1 gram tablet 1 g PO QID Patient Comments: TAKE 1 TABLET BY MOUTH FOUR TIMES DAILY alendronate 70 mg tablet 70 mg PO WEEKLY Patient Comments: TAKE 1 TABLET BY MOUTH EVERY 7 DAYS chlorthalidone 25 mg tablet 25 mg PO DAILY Patient Comments: TAKE 1 TABLET BY MOUTH DAILY levothyroxine 75 mcg tablet 75 mcg PO DAILY Patient Comments: TAKE 1 TABLET BY MOUTH ONCE DAILY FOR THYROID DISEASE gabapentin 100 mg capsule 100 mg PO TID Patient Comments: TAKE 1 CAPSULE BY MOUTH THREE TIMES DAILY fluticasone propionate 50 mcg/actuation spray,suspension 2 spray INTRANASAL DAILY memantine 10 mg tablet 10 mg PO DAILY Patient Comments: TAKE 1 TABLET BY MOUTH DAILY FOR MEMORY LOSS prasugrel HCl [Effient] 10 mg Tablet 10 mg PO DAILY 30 Days Qty: 30 6RF aspirin 81 mg Tablet 81 mg PO DAILY Referrals Follow up/Referrals: Reza Panchal MD [Primary Care Provider] - See instructions Activity Restrictions/Add. Instructions Additional Instructions/Restrictions: Viruses can take 7-14 days to run their course. Nasal saline and bulb syringe or nose Catarina to remove nasal drainage to help with nasal congestion. Hard to eat, drink, sleep with nasal congestion so important to keep this cleaned out. Monitor temp. Tylenol or Motrin as needed for pain or fever Encourage fluids, water, Gatorade, Powerade, Pedialyte if infant/toddler/child Warm salt water gargles Warm fluids Sore throat lozenges Sleep elevated Humidifier/vaporizer Follow-up immediately for new or worsening symptoms or no noticeable improvement over the next 48-72 hours. Clinical Impressions Clinical Impression: Influenza A Instructions Patient Instructions: DI for Influenza -- Adult Print Language Print Language: Thai Discharge ED Provider: Riya ([facility])[place] [facility] [place] General Stated complaint: body ache sneezing flu exposure nausea Mode of Arrival: Ambulatory Source of Information: Patient Time Seen by Provider: 11/23/24 13:00 Description of Symptoms (Recalled from Triage Doc. by RN): MANN, BA, NAUSEA, CONGESTION, EXP TO FLU HEENT Symptoms (Recalled from RN notes): Yes Resp Symptoms (Recalled from RN notes): Yes Skin Symptoms (Recalled from RN notes): No MS Symptoms (Recalled from RN notes): No Functional Status (Recalled from RN notes): WNL History of Present Illness Provider Complaint: 69-year-old female complaints of body aches, headache, nausea, congestion, started yesterday and has had a flu exposure Related Data Home Medications ?Medication ?Instructions ?Recorded ?Confirmed blood sugar diagnostic (OneTouch #10 ea 07/05/24 11/07/24 Ultra Test strips) blood-glucose meter (OneTouch #1 ea 07/05/24 11/07/24 Ultra2 Meter) lancets 30 gauge (Ultra Thin #100 ea 07/05/24 11/07/24 Lancets) alendronate 70 mg tablet 70 mg PO WEEKLY 09/16/24 11/07/24 chlorthalidone 25 mg tablet 25 mg PO DAILY 09/16/24 11/07/24 fluticasone propionate 50 2 spray intranasal DAILY 09/16/24 11/07/24 mcg/actuation nasal spray,suspension gabapentin 100 mg capsule 100 mg PO TID 09/16/24 11/07/24 levothyroxine 75 mcg tablet 75 mcg PO DAILY 09/16/24 11/07/24 memantine 10 mg tablet 10 mg PO DAILY 09/16/24 11/07/24 sucralfate 1 gram tablet 1 g PO QID 09/16/24 11/07/24 erythromycin 5 mg/gram (0.5 %) eye Eye-Right DAILY 09/18/24 11/07/24 ointment atorvastatin 20 mg tablet 20 mg PO DAILY 10/03/24 11/07/24 pantoprazole 40 mg tablet,delayed 40 mg PO DAILY 10/03/24 11/07/24 release potassium chloride 10 mEq 10 meq PO DAILY 10/03/24 11/07/24 tablet,extended release(part/cryst) aspirin 81 mg tablet 81 mg PO DAILY 10/07/24 11/07/24 vibegron 75 mg tablet (Gemtesa) 75 mg PO DAILY 11/07/24 11/07/24 Previous Rx's ?Medication ?Instructions ?Recorded azelastine 137 mcg (0.1 %) nasal 1 spray intranasal .q6 PRN allergy 10/03/24 spray symptoms 90 days #30 mL fluticasone 250 mcg-salmeterol 50 1 inh inhalation BID 90 days #180 10/03/24 mcg/dose blistr powdr for ea inhalation (Advair Diskus) empagliflozin 10 mg tablet 10 mg PO DAILY #90 tabs 10/07/24 (Jardiance) prasugrel HCl 10 mg tablet 10 mg PO DAILY 30 days #30 tabs 10/07/24 (Effient) magnesium oxide 500 mg capsule 500 mg PO DAILY #30 caps 10/15/24 albuterol sulfate 90 mcg/actuation 3 puff inhalation Q3H PRN wheezing 10/28/24 aerosol inhaler and shortness of breath #8.5 grams montelukast 10 mg tablet 10 mg PO DAILY #90 tabs 11/01/24 mirtazapine 15 mg tablet 15 mg PO HS #30 tabs 11/07/24 meloxicam 15 mg tablet 15 mg PO DAILY #30 tabs 11/20/24 metoprolol succinate 50 mg 50 mg PO Q12H #60 tabs 11/20/24 tablet,extended release 24 hr oseltamivir 75 mg capsule (Tamiflu) 75 mg PO BID 5 days #10 caps 11/23/24 Allergies Allergy/AdvReac Type Severity Reaction Status Date / Time hydrocodone Allergy Mild Verified 11/07/24 11:02 codeine AdvReac Mild Verified 11/07/24 11:02 Worker's Comp Is this a Worker's Comp case?: No [facility] Disclaimer: The information contained in this section may have been updated after the patient was seen, as this information can be updated by other users. 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) Stress incontinence Urge incontinence Overactive bladder Allergic rhinitis Coronary artery calcification seen on CAT scan Chest pain Fatigue History of DVT of lower extremity History of sleep apnea Bronchitis, mucopurulent recurrent Dyspnea on exertion Bronchiectasis Asthma Edema Hyperlipidemia associated with type 2 diabetes mellitus Urinary incontinence Onychomycosis Diabetic neuropathy Breast cancer screening by mammogram Dementia Diabetes mellitus Bronchitis COPD (chronic obstructive pulmonary disease) Colonoscopy planned Gallbladder anomaly Rheumatoid arthritis Osteoporosis Back pain Acid reflux disease Carpal tunnel syndrome Anxiety Hypothyroidism Sleep apnea High blood pressure Arthritis Varicose veins of ankle Depression Acute asthma Surgical History , 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) History of cataract surgery History of esophagogastroduodenoscopy (EGD) H/O right heart catheterization History of cholecystectomy H/O tubal ligation History of hernia repair Total knee replacement status Social History , 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) Smoking Status: Never smoker alcohol intake: never substance use type: denies use current occupational status: unemployed Travel in the last 8 weeks: None Have you lived/traveled outside [place] in past 30 days?: No Contact w/someone who lives/traveled outside [place] past 30 days?: No Exposure to someone with infectious disease in past 14 days?: Yes Do you have a fever (greater than 100.4 F or 38 C)?: No Have you tested positive for COVID-19: No Exposed to someone with COVID-19 in past 14 days?: No Do you have a sore throat?: No Do you have a cough?: Yes Do you have any weakness?: No Do you have any diarrhea?: No Are you experiencing any unusual bleeding?: No Do you have any muscle aches/pain?: Yes Do you have any abdominal pain?: No Are you experiencing loss of taste or smell?: No ROS Obtained: Yes Systems reviewed as appropriate & no additional complaints except as documented Physical Exam General General appearance: alert and in no apparent distress ENT ENT exam: Present normal exam, normal oropharynx, mucous membranes moist and TM's normal bilaterally Respiratory Respiratory exam: Present normal lung sounds bilaterally Cardiovascular Cardiovascular exam: Present regular rate and normal rhythm Neurological Exam Neurological exam: Present alert and oriented X3 Skin Skin exam: Present warm and intact Medical Decision Making Medical Records Medical records reviewed: Yes I reviewed the patient's medical records. Screening: Per USPSTF and CDC recommendations, given the prevalence of disease in our region, it is our hospital?s policy to screen for HIV and viral Hepatitis for all patients aged 18 and over and those with ongoing risk factors. Andre Inquiry Pt receiving controlled substance: No Vital Signs: 11/23/24 12:50 Temperature 98.7 F Temperature Source Oral Pulse Rate [Left Radial] 96 H Respiratory Rate 18 Blood Pressure [Left Arm] 112/62 Blood Pressure Mean [Left Arm] 78 02 Sat by Pulse Oximetry 92 L Lab Data Lab results reviewed: Yes I reviewed the patient's lab results. Lab Results 11/23/24 12:52: Influenza Type A Ag Positive A, Influenza Type B Ag Negative
[2024-11-23 13:08] VITALS: BP 112/62; PULSE 96; RESP 18; TEMP 37.1
== END 2024-11-23 13:12 | disposition home or self-care (01) ==
PROVIDERS: Emergency Provider Nurse Practitioner Family; PCP Family Medicine
DX: J09.X2 Influenza due to identified novel influenza A virus with other respiratory manifestations (principal)
CPT/HCPCS: 87804; 99212; G0381

== ENCOUNTER 2024-12-16 19:30 | Inpatient (IN) | payer MEDICARE, MEDICAID, SELFPAY ==
[2024-12-16 19:31] VITALS: BP 148/85; PULSE 125; RESP 22; TEMP 37; O2SAT 94; BMI 36.3
[2024-12-16 20:43] LABS: Coronavirus 19, PCR Not Detected (NotDetected); Influenza A, PCR Not Detected (NotDetected); Influenza B, PCR Not Detected (NotDetected)
--- NOTE | 2024-12-16 20:45 | HMH.EDGENADL ---
Discharge Plan Disposition Chief Complaint: PAIN Prescriptions Prescriptions: No Action (DME) OneTouch Ultra Test Strip See Rx Instructions .ROUTE .MEDSUPPLY Qty: 10 Patient Comments: USE TO CHECK BLOOD SUGAR DAILY DIRECTED Rx Instructions: As directed (DME) blood-glucose meter [OneTouch Ultra2 Meter] [facility] [place] See Rx Instructions .ROUTE .MEDSUPPLY Qty: 1 Patient Comments: USE TO CHECK BLOOD SUGAR DAILY Rx Instructions: As directed (DME) lancets [Ultra Thin Lancets] 30 gauge misc See Rx Instructions .ROUTE .MEDSUPPLY Qty: 100 Patient Comments: USE TO CHECK BLOOD SUGAR ONCE DAILY Rx Instructions: As directed Gemtesa 75 mg tablet 75 mg PO DAILY mirtazapine 15 mg tablet 15 mg PO HS Qty: 30 2RF atorvastatin 20 mg tablet 20 mg PO DAILY Patient Comments: TAKE 1 TABLET BY MOUTH DAILY pantoprazole 40 mg tablet,delayed release (DR/EC) 40 mg PO DAILY Patient Comments: TAKE 1 TABLET BY MOUTH TWICE DAILY fluticasone propion-salmeterol [Advair Diskus] 250-50 mcg/dose blister with device 1 inh inhalation BID 90 Days Qty: 180 3RF azelastine 137 mcg (0.1 %) spray,non-aerosol 1 spray intranasal .q6 PRN (Reason: allergy symptoms) 90 Days Qty: 30 3RF Rx Instructions: administer into each nostril erythromycin 5 mg/gram (0.5 %) ointment 1 applic Eye-Right DAILY Jardiance 10 mg tablet 10 mg PO DAILY Qty: 90 0RF albuterol sulfate 90 mcg/actuation HFA aerosol inhaler 3 puff inhalation Q3H PRN (Reason: wheezing and shortness of breath) Qty: 8.5 0RF montelukast 10 mg tablet 10 mg PO DAILY Qty: 90 3RF metoprolol succinate 50 mg tablet extended release 24 hr 50 mg PO Q12H Qty: 60 2RF meloxicam 15 mg tablet 15 mg PO DAILY Qty: 30 2RF potassium chloride 10 mEq tablet,ER particles/crystals 10 meq PO DAILY Qty: 90 0RF sucralfate 1 gram tablet 1 g PO QID 30 Days Qty: 120 1RF memantine 10 mg tablet 10 mg PO DAILY Qty: 90 0RF alendronate 70 mg tablet 70 mg PO WEEKLY Patient Comments: TAKE 1 TABLET BY MOUTH EVERY 7 DAYS chlorthalidone 25 mg tablet 25 mg PO DAILY Patient Comments: TAKE 1 TABLET BY MOUTH DAILY levothyroxine 75 mcg tablet 75 mcg PO DAILY Patient Comments: TAKE 1 TABLET BY MOUTH ONCE DAILY FOR THYROID DISEASE gabapentin 100 mg capsule 100 mg PO TID Patient Comments: TAKE 1 CAPSULE BY MOUTH THREE TIMES DAILY fluticasone propionate 50 mcg/actuation spray,suspension 2 spray INTRANASAL DAILY oseltamivir [Tamiflu] 75 mg capsule 75 mg PO BID 5 Days Qty: 10 0RF magnesium oxide 500 mg magnesium tablet 500 mg PO DAILY Rx Instructions: TAKE 1 TABLET BY MOUTH ONCE DAILY prasugrel HCl [Effient] 10 mg Tablet 10 mg PO DAILY 30 Days Qty: 30 6RF aspirin 81 mg Tablet 81 mg PO DAILY Referrals Follow up/Referrals: Reza Panchal MD [Primary Care Provider] - See instructions Clinical Impressions Clinical Impression: Sepsis, UTI (urinary tract infection) Print Language Print Language: Guyanese Discharge ED Provider: Ann Meeks General Adult HPI <NASEEM Arauz - Last Filed: 12/16/24 22:38> General Chief complaint: PAIN Stated complaint: N/V,fever 104.5,body aches Time Seen by Provider: 12/16/24 20:45 Mode of Arrival: Wheelchair Source of Information: Patient Description of Symptoms (Recalled from ER Triage Doc. by RN): Flu like symptoms. Pt states body aches and temp. Pt states she had FluA 11/23/24. Pt states she took Tamiflu however she will not take it again. Pt rates pain 10. Pt states she felt better for a few weeks and just started feeling bad again today. Pt states she's having chills as well. Pt is A&O*4. History of Present Illness HPI narrative: Patient presents for evaluation of high fever malaise and myalgias that began today. Patient actually was diagnosed with the flu on 11/23/2024 and was prescribed Tamiflu. Patient did not have a good experience without elaborating stating that I will not take that again . Patient asked report that she had an interval and improvement back to her normal baseline however today she woke up with myalgias nausea vomiting but denies cough congestion or headache. She denies chest pain hemoptysis hematochezia melena hematemesis hematuria Related Data Home Medications ?Medication ?Instructions ?Recorded ?Confirmed blood sugar diagnostic (OneTouch #10 ea 07/05/24 11/07/24 Ultra Test strips) blood-glucose meter (OneTouch #1 ea 07/05/24 11/07/24 Ultra2 Meter) lancets 30 gauge (Ultra Thin #100 ea 07/05/24 11/07/24 Lancets) alendronate 70 mg tablet 70 mg PO WEEKLY 09/16/24 11/07/24 chlorthalidone 25 mg tablet 25 mg PO DAILY 09/16/24 11/07/24 fluticasone propionate 50 2 spray intranasal DAILY 09/16/24 11/07/24 mcg/actuation nasal spray,suspension gabapentin 100 mg capsule 100 mg PO TID 09/16/24 11/07/24 levothyroxine 75 mcg tablet 75 mcg PO DAILY 09/16/24 11/07/24 erythromycin 5 mg/gram (0.5 %) eye 1 applic Eye-Right DAILY 09/18/24 12/16/24 ointment atorvastatin 20 mg tablet 20 mg PO DAILY 10/03/24 11/07/24 pantoprazole 40 mg tablet,delayed 40 mg PO DAILY 10/03/24 11/07/24 release aspirin 81 mg tablet 81 mg PO DAILY 10/07/24 11/07/24 vibegron 75 mg tablet (Gemtesa) 75 mg PO DAILY 11/07/24 12/16/24 magnesium oxide 500 mg PO DAILY 12/16/24 12/16/24 Previous Rx's ?Medication ?Instructions ?Recorded azelastine 137 mcg (0.1 %) nasal 1 spray intranasal .q6 PRN allergy 10/03/24 spray symptoms 90 days #30 mL fluticasone 250 mcg-salmeterol 50 1 inh inhalation BID 90 days #180 10/03/24 mcg/dose blistr powdr for ea inhalation (Advair Diskus) empagliflozin 10 mg tablet 10 mg PO DAILY #90 tabs 10/07/24 (Jardiance) prasugrel HCl 10 mg tablet 10 mg PO DAILY 30 days #30 tabs 10/07/24 (Effient) albuterol sulfate 90 mcg/actuation 3 puff inhalation Q3H PRN wheezing 10/28/24 aerosol inhaler and shortness of breath #8.5 grams montelukast 10 mg tablet 10 mg PO DAILY #90 tabs 11/01/24 mirtazapine 15 mg tablet 15 mg PO HS #30 tabs 11/07/24 meloxicam 15 mg tablet 15 mg PO DAILY #30 tabs 11/20/24 metoprolol succinate 50 mg 50 mg PO Q12H #60 tabs 11/20/24 tablet,extended release 24 hr oseltamivir 75 mg capsule (Tamiflu) 75 mg PO BID 5 days #10 caps 11/23/24 potassium chloride 10 mEq 10 meq PO DAILY #90 tabs 11/28/24 tablet,extended release(part/cryst) sucralfate 1 gram tablet 1 g PO QID 30 days #120 tabs 12/09/24 memantine 10 mg tablet 10 mg PO DAILY #90 tabs 12/10/24 Allergies Allergy/AdvReac Type Severity Reaction Status Date / Time hydrocodone Allergy Mild Verified 11/07/24 11:02 codeine AdvReac Mild Verified 11/07/24 11:02 [facility] <NASEEM Arauz - Last Filed: 12/16/24 22:38> [facility] Disclaimer: The information contained in this section may have been updated after the patient was seen, as this information can be updated by other users. 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) Stress incontinence Urge incontinence Overactive bladder Allergic rhinitis Coronary artery calcification seen on CAT scan Chest pain Fatigue History of DVT of lower extremity History of sleep apnea Bronchitis, mucopurulent recurrent Dyspnea on exertion Bronchiectasis Asthma Edema Hyperlipidemia associated with type 2 diabetes mellitus Urinary incontinence Onychomycosis Diabetic neuropathy Breast cancer screening by mammogram Dementia Diabetes mellitus Bronchitis COPD (chronic obstructive pulmonary disease) Colonoscopy planned Gallbladder anomaly Rheumatoid arthritis Osteoporosis Back pain Acid reflux disease Carpal tunnel syndrome Anxiety Hypothyroidism Sleep apnea High blood pressure Arthritis Varicose veins of ankle Depression Acute asthma 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 History , 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: No Do you have a fever (greater than 100.4 F or 38 C)?: Yes Have you tested positive for COVID-19: No Exposed to someone with COVID-19 in past 14 days?: No Do you have a sore throat?: No Do you have a cough?: No Do you have any weakness?: No Do you have any diarrhea?: No Are you experiencing any unusual bleeding?: No Do you have any muscle aches/pain?: No Do you have any abdominal pain?: No Are you experiencing loss of taste or smell?: No Other 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 Have you received the Pneumonia Vaccine: Yes <NASEEM Arauz - Last Filed: 12/16/24 22:38> ROS Obtained: Yes Systems reviewed as appropriate & no additional complaints except as documented Physical Exam <NASEEM Arauz - Last Filed: 12/16/24 22:38> General General appearance: alert and in no apparent distress Respiratory Respiratory exam: Present normal lung sounds bilaterally Cardiovascular Cardiovascular exam: Present regular rate Neurological Exam Neurological exam: Present alert and oriented X3 Medical Decision Making <NASEEM Arauz - Last Filed: 12/16/24 22:38> Medical Records Medical records reviewed: Yes I reviewed the patient's medical records. Screening: Per USPSTF and CDC recommendations, given the prevalence of disease in our region, it is our hospital?s policy to screen for HIV and viral Hepatitis for all patients aged 18 and over and those with ongoing risk factors. Andre Inquiry Pt receiving controlled substance: No Vital Signs: 12/16/24 19:31 Temperature 98.6 F Temperature Source Oral Pulse Rate [Left] 125 H Respiratory Rate 22 Blood Pressure [Right Arm] 148/85 H Blood Pressure Mean [Right Arm] 106 02 Sat by Pulse Oximetry 94 L Oxygen Delivery Method Room Air Lab Data Lab results reviewed: Yes I reviewed the patient's lab results. Lab Results 12/16/24 20:34: SARS-CoV-2 (PCR) Not detected, Influenza A Untype (PCR) Not detected, Influenza Type B (PCR) Not detected 12/16/24 21:20: WBC 12.0 H, RBC 4.53, Hgb 13.6, Hct 41.0, MCV 90.5, MCH 30.0, MCHC 33.2, RDW 13.3, Plt Count 196, MPV 10.1, Neut % (Auto) 67.8, Lymph % (Auto) 17.5, [place] % (Auto) 13.3 H, Eos % (Auto) 0.6, Baso % (Auto) 0.3, Neut # (Auto) 8.1 H, Lymph # (Auto) 2.1, [place] # (Auto) 1.6 H, Eos # (Auto) 0.1, Baso # (Auto) 0.0, Sodium 136, Potassium 4.0, Chloride 102, Carbon Dioxide 25, Anion Gap 13.0, BUN 21 H, Creatinine 0.90, Estimated Creat Clear 73, Estimated GFR 62, Est GFR ( Amer) 76, Glucose 126 H, Calcium 9.2, Total Bilirubin 1.0, AST 57 H, ALT 43, Alkaline Phosphatase 168 H, Total Protein 8.7 H, Albumin 4.7, Globulin 4.0 H, Albumin/Globulin Ratio 1.2 12/16/24 22:49: Urine Color Yellow, Urine Appearance Clear, Urine pH 6.5, Ur Specific [place] 1.015, Urine Protein Negative, Urine Glucose (UA) 3+, Urine Ketones 2+, Urine Blood Trace-i, Urine Nitrate Positive A, Urine Bilirubin Negative, Urine Urobilinogen 0.2, Ur Leukocyte Esterase Trace, Urine WBC 10-20, Ur Squamous Epith Cells Occasional, Urine Bacteria 3+ 12/16/24 21:20 12/16/24 21:20 Orders (Tests/Meds): ED MEDICATIONS Discontinued Medications Generic Name Dose Route Start Last Admin Trade Name Freq PRN Reason Stop Dose Admin Acetaminophen 1,000 mg 12/16/24 23:03 12/16/24 23:16 Acetaminophen 500mg Tab PO 12/16/24 23:04 1,000 mg ONCE ONE Administration Lactated Ringer's 1,000 mls @ 999 mls/hr 12/16/24 21:00 12/16/24 21:27 Lactated Ringer's 1000 Ml Bag IV 12/16/24 22:00 999 mls/hr .Q1H1M ONE Administration Ceftriaxone Sodium 2 gm/ 100 mls @ 200 mls/hr 12/16/24 23:34 12/16/24 23:58 Sodium Chloride IV 12/17/24 00:03 200 mls/hr ONCE ONE Administration Ketorolac Tromethamine 15 mg 12/16/24 23:03 12/16/24 23:16 Ketorolac 30mg/Ml Vial IV 12/16/24 23:04 15 mg ONCE ONE Administration Methocarbamol 500 mg 12/16/24 23:03 12/16/24 23:16 Methocarbamol 500mg Tablet PO 12/16/24 23:04 500 mg ONCE ONE Administration Ondansetron HCl 4 mg 12/16/24 21:00 12/16/24 21:28 Ondansetron 4mg/2ml Vial IV 12/16/24 21:01 4 mg ONCE ONE Administration ORDERS Category Date Time Status CT abdomen pelvis wo con Stat Cat Scan 12/16/24 23:59 Completed Chest XR -- portable [XR chest portable] Stat Exams 12/16/24 21:08 Completed CBC w/Auto Diff [Complete Blood Count Auto Diff] Stat Lab 12/16/24 21:20 Completed CMP [Comprehensive Metabolic Panel] Stat Lab 12/16/24 21:20 Completed Lactic Acid Stat Lab 12/16/24 23:14 Received Rapid PCR Covid and Flu A/B Stat Lab 12/16/24 20:34 Completed UA [Urinalysis and Microscopic] Stat Lab 12/16/24 22:49 Completed Blood Culture Stat Micro 12/16/24 23:14 Received Urine Culture Stat Micro 12/16/24 22:49 Received Medical Decision Narrative: In summary patient is a 69-year-old female who presents to the emergency department for evaluation of nausea vomiting malaise and fever. Patient is initially normotensive at 140/85 but actually tachycardic at 125 with sinus tachycardia on the bedside monitor rate and 22 times a minute satting at 94% on room air upon arrival, and afebrile currently at 90.6. Patient last took Tylenol approximately 3-4 this afternoon.. Physical exam is remarkable for clear breath sounds with no increased work of breathing or adventitious sounds, normal posterior pharynx, mild diffuse nonfocal abdominal tenderness on palpation without rebound or guarding or rigidity and normal bowel sounds.. Differential diagnosis includes acute upper or lower respiratory tract infection versus gastroenteritis versus influenza pneumonia etc. Initial workup will be conducted with hematologic labs, respiratory swabs, plain film chest x-ray twelve-lead EKG. Initial interventions include crystalloid bolus and Zofran. Initial workup is ordered and planning at the time of handoff to Dr. Meeks at 2200 hrs. <Ann Baron Meeks, DO - Last Filed: 12/17/24 00:45> Vital Signs: 12/16/24 19:31 Temperature 98.6 F Temperature Source Oral Pulse Rate [Left] 125 H Respiratory Rate 22 Blood Pressure [Right Arm] 148/85 H Blood Pressure Mean [Right Arm] 106 02 Sat by Pulse Oximetry 94 L Oxygen Delivery Method Room Air Lab Data Lab Results 12/16/24 20:34: SARS-CoV-2 (PCR) Not detected, Influenza A Untype (PCR) Not detected, Influenza Type B (PCR) Not detected 12/16/24 21:20: WBC 12.0 H, RBC 4.53, Hgb 13.6, Hct 41.0, MCV 90.5, MCH 30.0, MCHC 33.2, RDW 13.3, Plt Count 196, MPV 10.1, Neut % (Auto) 67.8, Lymph % (Auto) 17.5, [place] % (Auto) 13.3 H, Eos % (Auto) 0.6, Baso % (Auto) 0.3, Neut # (Auto) 8.1 H, Lymph # (Auto) 2.1, [place] # (Auto) 1.6 H, Eos # (Auto) 0.1, Baso # (Auto) 0.0, Sodium 136, Potassium 4.0, Chloride 102, Carbon Dioxide 25, Anion Gap 13.0, BUN 21 H, Creatinine 0.90, Estimated Creat Clear 73, Estimated GFR 62, Est GFR ( Amer) 76, Glucose 126 H, Calcium 9.2, Total Bilirubin 1.0, AST 57 H, ALT 43, Alkaline Phosphatase 168 H, Total Protein 8.7 H, Albumin 4.7, Globulin 4.0 H, Albumin/Globulin Ratio 1.2 12/16/24 22:49: Urine Color Yellow, Urine Appearance Clear, Urine pH 6.5, Ur Specific [place] 1.015, Urine Protein Negative, Urine Glucose (UA) 3+, Urine Ketones 2+, Urine Blood Trace-i, Urine Nitrate Positive A, Urine Bilirubin Negative, Urine Urobilinogen 0.2, Ur Leukocyte Esterase Trace, Urine WBC 10-20, Ur Squamous Epith Cells Occasional, Urine Bacteria 3+ Orders (Tests/Meds): ED MEDICATIONS Discontinued Medications Generic Name Dose Route Start Last Admin Trade Name Jagq PRN Reason Stop Dose Admin Acetaminophen 1,000 mg 12/16/24 23:03 12/16/24 23:16 Acetaminophen 500mg Tab PO 12/16/24 23:04 1,000 mg ONCE ONE Administration Lactated Ringer's 1,000 mls @ 999 mls/hr 12/16/24 21:00 12/16/24 21:27 Lactated Ringer's 1000 Ml Bag IV 12/16/24 22:00 999 mls/hr .Q1H1M ONE Administration Ceftriaxone Sodium 2 gm/ 100 mls @ 200 mls/hr 12/16/24 23:34 12/16/24 23:58 Sodium Chloride IV 12/17/24 00:03 200 mls/hr ONCE ONE Administration Ketorolac Tromethamine 15 mg 12/16/24 23:03 12/16/24 23:16 Ketorolac 30mg/Ml Vial IV 12/16/24 23:04 15 mg ONCE ONE Administration Methocarbamol 500 mg 12/16/24 23:03 12/16/24 23:16 Methocarbamol 500mg Tablet PO 12/16/24 23:04 500 mg ONCE ONE Administration Ondansetron HCl 4 mg 12/16/24 21:00 12/16/24 21:28 Ondansetron 4mg/2ml Vial IV 12/16/24 21:01 4 mg ONCE ONE Administration ORDERS Category Date Time Status CT abdomen pelvis wo con Stat Cat Scan 12/16/24 23:59 Completed Chest XR -- portable [XR chest portable] Stat Exams 12/16/24 21:08 Completed CBC w/Auto Diff [Complete Blood Count Auto Diff] Stat Lab 12/16/24 21:20 Completed CMP [Comprehensive Metabolic Panel] Stat Lab 12/16/24 21:20 Completed Lactic Acid Stat Lab 12/16/24 23:14 Received Rapid PCR Covid and Flu A/B Stat Lab 12/16/24 20:34 Completed UA [Urinalysis and Microscopic] Stat Lab 12/16/24 22:49 Completed Blood Culture Stat Micro 12/16/24 23:14 Received Urine Culture Stat Micro 12/16/24 22:49 Received ECG Data Tracing #1: I reviewed this ECG and interpreted as documented below: Sinus tachycardia with a ventricular rate [address] changes concerning for ischemia. Borderline left axis deviation. Normal intervals. ECG initial impression date: 12/16/24 ECG initial impression time: 21:15 Medical Decision Narrative: In summary patient is a 69-year-old female who presents to the emergency department for evaluation of nausea vomiting malaise and fever. Patient is initially normotensive at 140/85 but actually tachycardic at 125 with sinus tachycardia on the bedside monitor rate and 22 times a minute satting at 94% on room air upon arrival, and afebrile currently at 90.6. Patient last took Tylenol approximately 3-4 this afternoon.. Physical exam is remarkable for clear breath sounds with no increased work of breathing or adventitious sounds, normal posterior pharynx, mild diffuse nonfocal abdominal tenderness on palpation without rebound or guarding or rigidity and normal bowel sounds.. Differential diagnosis includes acute upper or lower respiratory tract infection versus gastroenteritis versus influenza pneumonia etc. Initial workup will be conducted with hematologic labs, respiratory swabs, plain film chest x-ray twelve-lead EKG. Initial interventions include crystalloid bolus and Zofran. Initial workup is ordered and planning at the time of handoff to Dr. Meeks at 2200 hrs. DO Constantino: I was consulted by the KIM, and we discussed the complexity of the problems being addressed. I approved the treatment and management plan for this patient's care in the emergency department, thus performing a substantive portion of the medical decision making. On my assessment of the patient, she is lying in bed in no acute distress. She is mildly tachycardic but otherwise vitals are reassuring. CBC demonstrates leukocytosis. Urine is concerning for a urinary tract infection. She does meet sepsis criteria given leukocytosis, tachycardia, tachypnea, and urinary tract infection as a source of infection. Blood cultures were sent and are pending, and I give the patient IV Rocephin. She was given a bolus of IV fluids but was not given full sepsis bolus given history of obesity, edema, cardiac dysfunction, and COPD. I feel that volume overload could be detrimental to her. I obtained CT abdomen and pelvis without IV contrast to make sure she does not have obstructive uropathy with flank pain and UTI. I independently interpreted CT scan prior to radiology read and noted no obstructive uropathy or hydronephrosis. Please see radiology read for final interpretation. At this time, I feel the patient would benefit from admission pending blood cultures for possible urosepsis. She was admitted in stable condition after interactive discussion with the hospitalist. Ann Meeks, DO Critical Care <NASEEM Arauz - Last Filed: 12/16/24 22:38> Critical Care Time Critical Care Time: No
--- NOTE | 2024-12-16 21:08 | XR_ITS ---
PROCEDURE INFORMATION: Exam: XR Chest Exam date and time: 12/16/2024 9:36 PM Age: 69 years old Clinical indication: Fever; Additional info: Tachycardia, fever, nausea vomiting TECHNIQUE: Imaging protocol: Radiologic exam of the chest. Views: 1 view. COMPARISON: 1. CR XR CHEST 2V 10/09/2024 12:[address] CHEST WO/W CON 09/26/2024 7:49 AM FINDINGS: Lungs: Low lung volumes. No consolidation. Pleural spaces: Unremarkable. No pleural effusion. No pneumothorax. Heart/Mediastinum: The heart is not enlarged Density at the lateral left lung base is compatible with prominent pericardial fat pad. Vasculature: Unremarkable. Bones/joints: Unremarkable. IMPRESSION: No focal infiltrate. Low lung volumes.
--- NOTE | 2024-12-16 21:10 | ECG_ITS ---
APPROVED REPORT Exam: Resting ECG HR:121 bpm ECG Measurements Heart Rate 121 AXES IL 132 P 60 QRSd 86 QRS -21 QT 314 T 51 QTc 386 Conclusion SINUS TACHYCARDIA BORDERLINE LEFT AXIS DEVIATION [QRS AXIS < -20] LOW QRS VOLTAGE IN PRECORDIAL LEADS [QRS DEFLECTION < 1.0 mV IN CHEST LEADS] PATTERN CONSISTENT WITH PULMONARY DISEASE ABNORMAL ECG UNCONFIRMED REPORT Electronically signed by : TREVOR CAMPOS, 12/16/2024 23:04:35
[2024-12-16] MEDS: LACTATED RINGERS 1000ML 1,000 ML 999 ML IV (21:27)
[2024-12-16] MEDS: ONDANSETRON 4MG/2ML VIAL 4 MG IV (21:28)
[2024-12-16 21:36] LABS: Basophils % 0.3 % (0.1-2.0); Eosinophils # 0.1 K/mm3 (0.0-0.4); Eosinophils % 0.6 % (0.1-12.0); Hemoglobin 13.6 g/dL (12.2-16.2); Lymphocytes # 2.1 K/mm3 (0.7-4.5); Lymphocytes % 17.5 % (10-50); Mean Corpuscular HGB Conc 33.2 g/dL (31.8-35.4); Mean Corpuscular Volume 90.5 fl (81-99); Mean Platelet Volume 10.1 fl (7.4-10.4); Monocytes # 1.6 K/mm3 (0.1-1.0); Monocytes % 13.3 % (1.7-9.3); Neutrophils # 8.1 K/mm3 (1.8-7.8); Neutrophils % 67.8 % (37.0-80.0); Platelet Count 196 K/mm3 (142-424); Red Blood Count 4.53 M/mm3 (4.20-5.40); Red Cell Distribution Width 13.3 % (11.5-17.5)
[2024-12-16 22:02] LABS: Chloride 102 mmol/L (98-107)
[2024-12-16 22:03] LABS: Albumin Level 4.7 g/dl (3.5-5.0); Sodium 136 mmol/L (136-145)
[2024-12-16 22:05] LABS: Alanine Aminotransferase 43 U/L (12-78); Aspartate Amino Transferase 57 U/L (14-36); Blood Urea Nitrogen 21 mg/dl (7-17); Carbon Dioxide 25 mmol/L (22.0-30.0); Creatinine Clearance Estimated 73 mL/min (50-200); Estimated Glomerular Filt Rate 62 ml/min (>60); GFR (African American) 76 ML/MIN (>60)
[2024-12-16 22:06] LABS: Albumin/Globulin Ratio 1.2 (1.1-1.8); Alkaline Phosphatase 168 U/L (38-126); Calcium 9.2 mg/dl (8.4-10.2); Glucose 126 mg/dl (74-100); Total Protein,Serum 8.7 g/dl (6.3-8.2)
--- NOTE | 2024-12-16 22:52 | PC.NURSE ---
This RN and Winston Antony took pt to restroom. Pt ambulated with support.
[2024-12-16 22:54] LABS: Microscopic, Urine URINE MICROSCOPIC (MICROSCOPIC)
[2024-12-16 23:04] LABS: Appearance,Urine CLEAR (Clear); Bilirubin,Urine Negative (Negative); Blood, Urine TRACE-I (Negative); Color,Urine YELLOW (Yellow); Glucose,Urine (UA) 3+ (Negative); Ketones,Urine 2+ (Negative); Leukocyte Esterase,Urine TRACE (Negative); Nitrate,Urine POSITIVE (Negative); PH,Urine 6.5 (5.0-8.5); Protein,Urine Negative (Negative); Specific Gravity, Urine 1.015 (1.005-1.030); Urobilinogen,Urine 0.2 EU/dl (0.2)
[2024-12-16] MEDS: METHOCARBAMOL 500MG TABLET 500 MG PO (23:16)
[2024-12-16] MEDS: KETOROLAC 30MG/ML VIAL 15 MG IV (23:16)
[2024-12-16] MEDS: ACETAMINOPHEN 500MG TAB 1000 MG PO (23:16)
[2024-12-16 23:21] LABS: Bacteria,Urine 3+ /lpf; Squamous Epithelial Cell,Urine Occasional #/hpf (0-5)
[2024-12-16] MEDS: CEFTRIAXONE SODIUM 2 GM in 0.9 % SODIUM CHLORIDE 100 ML IV (23:58)
--- NOTE | 2024-12-16 23:59 | CT_ITS ---
PROCEDURE INFORMATION: Exam: CT Abdomen And Pelvis Without Contrast Exam date and time: 12/17/2024 12:11 AM Age: 69 years old Clinical indication: Abdominal pain; Additional info: Bilateral flank pain, urosepsis TECHNIQUE: Imaging protocol: Computed tomography of the abdomen and pelvis without contrast. Radiation optimization: All CT scans at this facility use at least one of these dose optimization techniques: automated exposure control; mA and/or kV adjustment per patient size (includes targeted exams where dose is matched to clinical indication); or iterative reconstruction. COMPARISON: CT CHEST WO/W CON 09/26/2024 7:49 AM FINDINGS: Lungs: There are chronic interstitial changes at the lung bases. Diaphragm: There is a small to moderate hiatal hernia. Liver: Hepatic steatosis is evident. Gallbladder and biliary ducts: The gallbladder is absent. There is no biliary ductal dilation. Pancreas: Normal. No ductal dilation. Spleen: Normal. No splenomegaly. Adrenal glands: Normal. No mass. Kidneys and ureters: Normal. No hydronephrosis. Stomach and bowel: There is a prominent diverticulum of the 2nd portion of the duodenum. There are scattered left colonic diverticuli without acute inflammation. No bowel obstruction. No mucosal thickening. Appendix: No evidence of appendicitis. Intraperitoneal space: Unremarkable. No free air. No significant fluid collection. Vasculature: [id number] calcific atherosclerotic disease without aneurysm. Lymph nodes: Unremarkable. No enlarged lymph nodes. Urinary bladder: Unremarkable as visualized. Reproductive: Unremarkable as visualized. Bones/joints: There is a mild scoliosis of the lumbar spine convex left. There are severe degenerative changes of the imaged spine. No acute fracture. Soft tissues: Unremarkable. IMPRESSION: 1. There is no acute process evident within the abdomen or pelvis. No hydronephrosis or stone disease. 2. Nonurgent findings as noted.
[2024-12-17] VITALS (8 sets, daily range): BP systolic 106–147; BP diastolic 46–89; PULSE 81–107; RESP 16–20; TEMP 36.4–37.6; O2SAT 90–98; BMI 37.5; BMI 37.7
[2024-12-17 00:58] LABS: Lactic Acid 0.9 mmol/L (0.7-2.1)
--- NOTE | 2024-12-17 01:24 | PC.NURSE ---
Patient arrived to floor via wheelchair from ED at 01:22.
[2024-12-17 02:18] LABS: POC Glucose,Bedside 103 (70-110)
[2024-12-17] MEDS: 0.9 % SODIUM CHLORIDE 1000ML 1,000 ML 50 ML IV (02:31)
--- NOTE | 2024-12-17 02:57 | P.HP_ITS ---
History of Present Illness *Admission Date: 12/17/24 *Reason for visit:: Fever malaise *History of present illness: A 69-year-old female presents to the emergency department on December 16, 2024, for evaluation of high fever, malaise, and myalgias that began today, accompanied by nausea and vomiting. She was diagnosed with influenza on November 23, 2024, and prescribed Tamiflu, which she refused to take again due to a negative experience (undisclosed details). She reports interval improvement to baseline after the flu but awoke today with myalgias, nausea, and vomiting, denying cough, congestion, headache, chest pain, hemoptysis, hematochezia, melena, hematemesis, or hematuria. Vital signs on arrival showed BP 140/85 mmHg, HR 125 bpm with sinus tachycardia on bedside monitor, respiratory rate 22 breaths/min, SpO2 94% on room air, and temperature 98.6?F (after Tylenol 3-4 PM). Physical exam revealed clear breath sounds without increased work of breathing or adventitious sounds, normal posterior pharynx, mild diffuse nonfocal abdominal tenderness without rebound, guarding, or rigidity, and normal bowel sounds. Labs showed negative SARS-CoV-2, influenza A, and B PCRs. CBC indicated WBC 12.0 x10?/?L (Neut # 8.1, [place] # 1.6), Hgb 13.6 g/dL, glucose 126 mg/dL, BUN 21 mg/dL, Cr 0.90 mg/dL (GFR 62), AST 57 U/L, alk phos 168 U/L, total protein 8.7 g/dL, and globulin 4.0 g/dL. Urinalysis revealed glucose 3+, ketones 2+, trace blood, nitrate positive, leukocytes 10-20/HPF, and bacteria 3+. Initial interventions included a crystalloid bolus and Zofran; workup comprised labs, respiratory swabs, chest X-ray, and 12-lead EKG. Blood cultures were sent, IV Rocephin administered, and CT abdomen/pelvis without contrast showed no obstructive uropathy or hydronephrosis . [facility] Disclaimer: The information contained in this section may have been updated after the patient was seen, as this information can be updated by other users. 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 Stress incontinence Urge incontinence Overactive bladder Allergic rhinitis Coronary artery calcification seen on CAT scan Chest pain Fatigue History of DVT of lower extremity History of sleep apnea Bronchitis, mucopurulent recurrent Dyspnea on exertion Bronchiectasis Asthma Edema Hyperlipidemia associated with type 2 diabetes mellitus Urinary incontinence Onychomycosis Diabetic neuropathy Breast cancer screening by mammogram Dementia Diabetes mellitus Bronchitis COPD (chronic obstructive pulmonary disease) Colonoscopy planned Gallbladder anomaly Rheumatoid arthritis Osteoporosis Back pain Acid reflux disease Carpal tunnel syndrome Anxiety Hypothyroidism Sleep apnea High blood pressure Arthritis Varicose veins of ankle Depression Acute asthma Surgical History History of cataract surgery History of esophagogastroduodenoscopy (EGD) H/O right heart catheterization History of cholecystectomy H/O tubal ligation History of hernia repair Total knee replacement status Social History Smoking Status: Never smoker alcohol intake: never substance use type: denies use current occupational status: unemployed Travel in the last 8 weeks: None Have you lived/traveled outside US in past 30 days?: No Contact w/someone who lives/traveled outside US past 30 days?: No Exposure to someone with infectious disease in past 14 days?: No Do you have a fever (greater than 100.4 F or 38 C)?: Yes Have you tested positive for COVID-19: No Exposed to someone with COVID-19 in past 14 days?: No Do you have a sore throat?: No Do you have a cough?: No Do you have any weakness?: No Do you have any diarrhea?: No Are you experiencing any unusual bleeding?: No Do you have any muscle aches/pain?: No Do you have any abdominal pain?: No Are you experiencing loss of taste or smell?: No Other 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 Have you received the Flu Vaccine for this season: Yes Have you received the Pneumonia Vaccine: Yes Review of Systems Review of Systems Review of systems (narrative): 13 point review of systems negative except as listed in HPI Meds Home Medications and Allergies Home Medications ?Medication ?Instructions ?Recorded ?Confirmed ?Type alendronate 70 mg tablet 70 mg PO WEEKLY 09/16/24 12/17/24 History fluticasone propionate 50 2 spray intranasal DAILY 09/16/24 12/17/24 History mcg/actuation nasal spray,suspension gabapentin 100 mg capsule 100 mg PO TID 09/16/24 12/17/24 History levothyroxine 75 mcg tablet 75 mcg PO DAILY 09/16/24 12/17/24 History atorvastatin 20 mg tablet 20 mg PO HS 10/03/24 12/17/24 History fluticasone 250 mcg-salmeterol 50 1 inh inhalation BID 90 days #180 10/03/24 12/17/24 Rx mcg/dose blistr powdr for ea inhalation (Advair Diskus) pantoprazole 40 mg tablet,delayed 40 mg PO DAILY 10/03/24 12/17/24 History release prasugrel HCl 10 mg tablet 10 mg PO DAILY 30 days #30 tabs 10/07/24 12/17/24 Rx (Effient) mirtazapine 15 mg tablet 15 mg PO HS #30 tabs 11/07/24 12/17/24 Rx vibegron 75 mg tablet (Gemtesa) 75 mg PO DAILY 11/07/24 12/16/24 History meloxicam 15 mg tablet 15 mg PO DAILY #30 tabs 11/20/24 12/17/24 Rx metoprolol succinate 50 mg 50 mg PO Q12H #60 tabs 11/20/24 12/17/24 Rx tablet,extended release 24 hr potassium chloride 10 mEq 10 meq PO DAILY #90 tabs 11/28/24 12/17/24 Rx tablet,extended release(part/cryst) sucralfate 1 gram tablet 1 g PO QID 30 days #120 tabs 12/09/24 12/17/24 Rx memantine 10 mg tablet 10 mg PO DAILY #90 tabs 12/10/24 12/17/24 Rx magnesium oxide 500 mg PO DAILY 12/16/24 12/17/24 History albuterol sulfate 90 mcg/actuation 2 inh inhalation Q4HP PRN 12/17/24 12/17/24 History aerosol inhaler WHEEZING/SOA aspirin 81 mg tablet,delayed 81 mg PO DAILY 12/17/24 12/17/24 History release montelukast 10 mg tablet 10 mg PO HS 12/17/24 12/17/24 History New Prescriptions to Start Prescriptions: Allergies Allergy/AdvReac Type Severity Reaction Status Date / Time hydrocodone Allergy Mild Verified 11/07/24 11:02 codeine AdvReac Mild Verified 11/07/24 11:02 Exam Data for Last 24 hours Vital signs and Labs for Last 24 Hours: Temp Pulse Resp BP Pulse Ox O2 Del Method 99.0 F 103 H 18 112/50 L 92 L Room Air 12/17/24 01:30 12/17/24 01:30 12/17/24 01:30 12/17/24 01:30 12/17/24 01:30 12/17/24 02:24 Laboratory Results - last 24 hr 12/16/24 20:34: SARS-CoV-2 (PCR) Not detected, Influenza A Untype (PCR) Not detected, Influenza Type B (PCR) Not detected 12/16/24 21:20: WBC 12.0 H, RBC 4.53, Hgb 13.6, Hct 41.0, MCV 90.5, MCH 30.0, MCHC 33.2, RDW 13.3, Plt Count 196, MPV 10.1, Neut % (Auto) 67.8, Lymph % (Auto) 17.5, [place] % (Auto) 13.3 H, Eos % (Auto) 0.6, Baso % (Auto) 0.3, Neut # (Auto) 8.1 H, Lymph # (Auto) 2.1, [place] # (Auto) 1.6 H, Eos # (Auto) 0.1, Baso # (Auto) 0.0, Sodium 136, Potassium 4.0, Chloride 102, Carbon Dioxide 25, Anion Gap 13.0, BUN 21 H, Creatinine 0.90, Estimated Creat Clear 73, Estimated GFR 62, Est GFR ( Amer) 76, Glucose 126 H, Calcium 9.2, Total Bilirubin 1.0, AST 57 H, ALT 43, Alkaline Phosphatase 168 H, Total Protein 8.7 H, Albumin 4.7, Globulin 4.0 H, Albumin/Globulin Ratio 1.2 12/16/24 22:49: Urine Color Yellow, Urine Appearance Clear, Urine pH 6.5, Ur Specific Challenge 1.015, Urine Protein Negative, Urine Glucose (UA) 3+, Urine Ketones 2+, Urine Blood Trace-i, Urine Nitrate Positive A, Urine Bilirubin Negative, Urine Urobilinogen 0.2, Ur Leukocyte Esterase Trace, Urine WBC 10-20, Ur Squamous Epith Cells Occasional, Urine Bacteria 3+ 12/17/24 00:37: Lactate 0.9 12/17/24 02:11: POC Glucose 103 I & O for Last 24 hours: Intake & Output 12/14/24 12/15/24 12/16/24 12/17/24 23:59 23:59 23:59 23:59 Weight 84.368 kg 86.772 kg Constitutional Constitutional: no acute distress *Routine HEENT Exam Head: Present normocephalic Eye: Present EOMI and PERRL ENT: Present mucous membranes moist *Routine Neck Exam Neck: Present supple; Absent lymphadenopathy *Routine Respiratory Exam Respiratory: Present CTA bilaterally *Routine Cardiovascular Exam Cardiovascular: Present RRR *Routine Abdominal Exam Abdominal: Present soft and normoactive bowel sounds; Absent tenderness *Routine Rectal Exam Rectal:: deferred *Routine Genitalia Exam Genitalia:: deferred *Routine Extremities Exam Extremities: Absent cyanosis, clubbing or edema *Routine Skin Exam Skin: Present warm; Absent rash *Routine Neurological Exam Neurological: Present alert and oriented X3 Assessment and Plan *Assessment and plan (1) UTI (urinary tract infection): Status: Acute Category: Medical Code(s): N39.0 - Urinary tract infection, site not specified (2) Sepsis: Status: Acute Category: Medical Code(s): A41.9 - Sepsis, unspecified organism (3) Coronary artery disease: Status: Acute Qualifiers: Associated angina: without angina Coronary Disease-Associated Artery/Lesion type: [place] artery [place] vs. transplanted heart: [place] heart Qualified Code(s): I25.10 - Atherosclerotic heart disease of [place] coronary artery without angina pectoris Category: Medical Code(s): I25.10 - Atherosclerotic heart disease of [place] coronary artery without angina pectoris Plan * Sepsis Secondary to Urinary Tract Infection (UTI) * Fever, malaise, myalgias, nausea, vomiting starting today; HR 125, RR 22, WBC 12.0 (Neut # 8.1), UA: nitrate positive, leukocytes 10-20, bacteria 3+. Meets sepsis criteria (tachycardia, tachypnea, leukocytosis, UTI source). Negative flu/viral PCRs. PMH: T2DM, COPD, dementia. Differential: Urosepsis (primary), gastroenteritis (less likely?no diarrhea), post-flu complication (resolved per history). * IV Rocephin (1 g) given; continue q24h pending cultures/sensitivities. * Blood cultures x2 sent; urine culture to confirm organism. * Partial IV NS bolus (500 mL) given; limit further fluids (1.5 L/day) due to COPD risks; monitor I/Os, SpO2 q4h. * Admit to medicine for IV antibiotics, culture results; * Nausea and Vomiting * Nausea/vomiting today, mild abdominal tenderness, no rebound/guarding. UA: glucose 3+, ketones 2+. PMH: T2DM, GERD. Differential: UTI-related, gastroenteritis (less likely), metabolic (glucose 126, no acidosis?VBG pH 7.39), GERD exacerbation. * Zofran 4 mg IV given; repeat q8h PRN. * Monitor for worsening abdominal pain; GI consult if rebound/guarding or GERD symptoms (e.g., reflux) emerge. * COPD (Stable, Fluid-Sensitive) * PMH: COPD, T2DM, dementia. HR 125, SpO2 94% RA, no SOB/rales, clear lungs. VBG: pO2 34.5, O2 sat 60.2% (mild hypoxia). Differential: Stable COPD, mild exacerbation (tachypnea, hypoxia), sepsis-related strain. * Fluid restriction (1.5 L/day); monitor for overload?SpO2, rales q4h. * Cardiac telemetry 24 hours; EKG for arrhythmia (sinus tach now). * Pulmonology consult if hypoxia worsens (SpO2 <92% RA). * Type 2 Diabetes Mellitus (Suboptimal Control) * Glucose 126, UA: glucose 3+, ketones 2+. PMH: T2DM. Differential: Stress hyperglycemia, poor baseline control; no acidosis (VBG pH 7.39). * Sliding scale insulin continue home regimen (dose unknown?query records). * ACHS Accu-Cheks * Mild Renal Dysfunction * Cr 0.90, GFR 62, BUN 21. PMH: T2DM, COPD. UA: Glucose 3+, ketones 2+. Differential: Baseline CKD (T2DM), dehydration (vomiting, pre-renal?BUN/Cr 23), early MI (sepsis). * Recheck CMP q12h; monitor urine output (>0.5 mL/kg/h goal). * Avoid nephrotoxins * Post-Influenza Symptom Recurrence * Flu 11/23/2024, Tamiflu refused, improved to baseline until today?s fever/myalgias. Negative flu/viral PCRs 12/16/24. PMH: Dementia (reliability concern). Differential: Post-viral syndrome (less likely?new UTI), unrelated infection (UTI favored). * No Tamiflu (negative PCRs, patient refusal); monitor for respiratory symptoms (cough/SOB?none now). * Chest x-ray negative * Hypothyroidism (Stable) * Continue levothyroxine * Dementia * Continue memantine * Disposition * Fever, nausea/vomiting, sepsis (UTI source), leukocytosis, tachycardia, COPD/T2DM risks require admission. * Admit to medicine with telemetry for IV antibiotics, culture results, fluid monitoring. * Discharge when afebrile, cultures negative or treated, nausea resolved, vitals stable (HR <100, SpO2 >92% RA). * Follow-up with PCP 1-2 days post-discharge; ID if cultures positive. * Return for worsening fever, SOB, abdominal pain. Entered by Allan Baca at 6:42 PM on 01/06 Rounded on patient after nurse practitioner. Personally examined and interviewed patient. Agree with exam findings and care plan as documented. Will monitor overnight. Awaiting urine culture to narrow antibiotics. Showing some improvement on morning rounds.
[2024-12-17] MEDS: METOPROLOL SUCCINATE XL 50MG TABLET 50 MG PO ×2 (03:39→22:06)
--- NOTE | 2024-12-17 05:25 | PC.NURSE ---
New Admit. V/S, ox4. Pt rested well during shift. Blood glucose monitored. Plan of care ongoing.
[2024-12-17 05:52] LABS: POC Glucose,Bedside 86 (70-110)
[2024-12-17 06:13] LABS: Basophils % 0.3 % (0.1-2.0); Eosinophils # 0.1 K/mm3 (0.0-0.4); Eosinophils % 0.5 % (0.1-12.0); Lymphocytes # 2.8 K/mm3 (0.7-4.5); Lymphocytes % 30.3 % (10-50); Mean Corpuscular HGB Conc 32.5 g/dL (31.8-35.4); Mean Corpuscular Hemoglobin 29.8 pg (27.0-31.2); Mean Corpuscular Volume 91.8 fl (81-99); Mean Platelet Volume 10.1 fl (7.4-10.4); Monocytes % 21.1 % (1.7-9.3); Neutrophils # 4.4 K/mm3 (1.8-7.8); Neutrophils % 47.5 % (37.0-80.0); Platelet Count 169 K/mm3 (142-424); Red Blood Count 3.92 M/mm3 (4.20-5.40); Red Cell Distribution Width 13.5 % (11.5-17.5); White Blood Count 9.2 K/mm3 (4.8-10.8)
[2024-12-17] MEDS: FLUTICASONE/SALMETEROL 250/50MCG DISKUS 1 PUFF IH ×2 (06:24→18:11)
[2024-12-17 06:25] LABS: MANUAL DIFFERENTIAL MANUAL DIFFERENTIAL (MANUAL DIFF)
[2024-12-17 06:28] LABS: Hemoglobin 11.8 g/dL (12.2-16.2)
[2024-12-17 06:37] LABS: Anion Gap 9.8 mEq/L (5-15); Blood Urea Nitrogen 21 mg/dl (7-17); Calcium 8.3 mg/dl (8.4-10.2); Carbon Dioxide 26 mmol/L (22.0-30.0); Chloride 105 mmol/L (98-107); Chol/HDL Ratio 3.3 (1-3.5); Cholesterol 117 mg/dl (140-200); Creatinine Clearance Estimated 75 mL/min (50-200); Estimated Glomerular Filt Rate 62 ml/min (>60); GFR (African American) 76 ML/MIN (>60); Glucose 89 mg/dl (74-100); HDL Cholesterol 35 mg/dl (40-60); Magnesium 1.5 mg/dl (1.6-2.3); Phosphorous 5.4 mg/dl (2.5-4.5); Potassium 3.8 mmoL/L (3.5-5.1); Sodium 137 mmol/L (136-145); Triglycerides 176 mg/dl (30-150); VLDL Cholesterol 35 mg/dL (0-40)
[2024-12-17 06:48] LABS: Direct LDL Cholesterol 44.32 mg/dL (100-129)
--- NOTE | 2024-12-17 07:43 | PC.NURSE ---
Dr. Simons at bedside
[2024-12-17] MEDS: FLUTICASONE PROP 50MCG NASAL SPRAY 16GM 2 SPRAY NS (09:03)
[2024-12-17] MEDS: PANTOPRAZOLE 40MG TABLET 40 MG PO (09:04)
[2024-12-17] MEDS: ASPIRIN EC 81MG TABLET 81 MG PO (09:04)
[2024-12-17] MEDS: MEMANTINE 10MG TABLET 10 MG PO (09:05)
[2024-12-17] MEDS: SUCRALFATE 1GM TABLET 1 GM PO ×4 (09:05→22:06)
[2024-12-17] MEDS: POTASSIUM CHLORIDE 10MEQ TABLET.ER 10 MEQ PO (09:05)
[2024-12-17] MEDS: LEVOTHYROXINE 75MCG (0.075MG) TAB 75 MCG PO (09:05)
[2024-12-17] MEDS: PRASUGREL 10MG TAB 10 MG PO (09:05)
[2024-12-17] MEDS: GABAPENTIN 100MG CAPSULE 100 MG PO ×3 (09:06→22:05)
[2024-12-17] MEDS: CEFTRIAXONE 1 GM 1 GM in 0.9 % SODIUM CHLORIDE 50 ML IV (09:06)
[2024-12-17] MEDS: MAGNESIUM OXIDE 400MG TABLET 400 MG PO (09:06)
[2024-12-17 09:11] LABS: Lymphocytes % 39 % (10-50); Monocytes % 9 % (2-9); Neutrophils % 52 % (42-76); Total Cells Counted 100
[2024-12-17 09:12] LABS: Platelet Estimate Normal; RBC Morphology Normal
[2024-12-17] MEDS: ERYTHROMYCIN BASE 3.5 GM OINT...G. OP (09:18)
[2024-12-17] MEDS: ACETAMINOPHEN 325MG TAB 650 MG PO ×2 (09:19→22:07)
[2024-12-17] MEDS: MAGNESIUM SULFATE IN WATER 2 GM/50 ML PIGGYBACK IV ×2 (10:49→12:24)
--- NOTE | 2024-12-17 12:49 | SW/DCPLANNER ---
Addendum entered by Paula Booker 12/19/24 11:22: Patient is not interested in home health services at this time. Original Note: Per PT/OT no needs at this time.
--- NOTE | 2024-12-17 13:05 | HMH.PTEV ---
Physical Therapy Evaluation Rehab PT IP Evaluation Start: 12/17/24 09:13 Freq: .once Status: Active Protocol: Document 12/17/24 11:20 JEANINE (Rec: 12/17/24 13:05 PHOKEVIN [id number]) Subjective/History History History 9-year-old female presents to the emergency department on December 16, 2024, for evaluation of high fever, malaise, and myalgias that began today, accompanied by nausea and vomiting. She was diagnosed with influenza on November 23, 2024, and prescribed Tamiflu, which she refused to take again due to a negative experience (undisclosed details). She reports interval improvement to baseline after the flu but awoke today with myalgias, nausea, and vomiting , denying cough, congestion, headache, chest pain, hemoptysis, hematochezia, melena, hematemesis, or hematuria. She reports she lives alone, No CHRISTA the home, and she is generally independent with all mobility with RW at baseline. She does have family available to assist her as needed. Subjective Subjective Currently she has no c/o and agrees to mobility assessment. [facility] How much help from another person do you currently need... Turning from your back to your side None while in a flat bed without using bedrails? Moving from lying on back to sitting on None the side of a flat bed without using bedrails? Moving to and from a bed to a chair ( None including a wheelchair)? Standing up from a chair using your arms None ? (e.g., wheelchair, bedside chair) Walking in hospital room? None Climbing 3-5 steps with a railing? None Mobility Score 24 Mobility Level [facility] Mobility Calculator Mobility 8 Walk 250 feet or more Rehab PT IP Eval Objective Appearance Patient Behavior Appropriate Patient Orientation Person,Place,Time Difficulty following instructions none Speech Pattern Clear Ambulation Patient Able to Ambulate Yes Ambulation Observation IP General Gait Pattern Observation No Deviations/Normal Ambulation Distance (feet) 150 Ambulation Assistive Device Rolling Walker Ambulation Ability Independent Balance Ability to Arise Able, uses arms to help Sitting Balance Steady, safe Standing Balance Steady, wide stance Dynamic Sitting Balance Ability Good Dynamic Standing Balance Ability Good Transfers Bed Transfer Ability Independent Chair Transfer Ability Independent Sit to Stand Bed Transfer Ability Independent Sit to Stand Chair Transfer Ability Independent Rehab PT IP prob,goals,plan Problems Date of Evaluation: 12/17/24 Discharge Plan PT Discharge Plan Pt is currently appropriate to return home once medically stable for d/c. No skilled inpatient therapy needs at this time. Eval Complexity Eval Charge Codes 30387 - High Complexity PHYSICIAN CERTIFICATION: I certify the specified therapy services for Madison Castellanos are required, authorized, and reviewed every 30 days.
[2024-12-17] MEDS: ONDANSETRON 4MG/2ML VIAL 4 MG IV (15:30)
--- NOTE | 2024-12-17 15:55 | PC.NURSE ---
Patient alert and oriented. VSS. On room air. Tylenol for MANN. Zofran for reflux/nausea. Up with 1 to BR for voids. IV fluids and antibiotics administered per orders. PT/OT consultations completed. Awaiting urine culture results
[2024-12-17 16:17] LABS: POC Glucose,Bedside 137 (70-110)
[2024-12-17] MEDS: ATORVASTATIN 20MG TABLET 20 MG PO (22:05)
[2024-12-17] MEDS: MIRTAZAPINE 15 MG TABLET PO (22:06)
[2024-12-17] MEDS: MONTELUKAST SODIUM 10MG TAB 10 MG PO (22:06)
[2024-12-17 22:20] LABS: POC Glucose,Bedside 150 (70-110)
[2024-12-18] VITALS (7 sets, daily range): BP systolic 122–148; BP diastolic 53–83; PULSE 85–101; RESP 16–18; TEMP 36.6–37.2; O2SAT 90–95; BMI 39.1
[2024-12-18] MEDS: FLUTICASONE/SALMETEROL 250/50MCG DISKUS 1 PUFF IH ×2 (06:16→18:53)
[2024-12-18 06:35] LABS: Basophils % 0.4 % (0.1-2.0); Eosinophils # 0.2 K/mm3 (0.0-0.4); Eosinophils % 2.2 % (0.1-12.0); Hematocrit 36.4 % (37.0-47.0); Lymphocytes # 2.4 K/mm3 (0.7-4.5); Mean Corpuscular Hemoglobin 30.7 pg (27.0-31.2); Mean Corpuscular Volume 93.1 fl (81-99); Mean Platelet Volume 10.2 fl (7.4-10.4); Monocytes # 1.8 K/mm3 (0.1-1.0); Neutrophils % 47.2 % (37.0-80.0); Platelet Count 183 K/mm3 (142-424); Red Blood Count 3.91 M/mm3 (4.20-5.40); Red Cell Distribution Width 13.6 % (11.5-17.5); White Blood Count 8.4 K/mm3 (4.8-10.8)
[2024-12-18 06:37] LABS: MANUAL DIFFERENTIAL MANUAL DIFFERENTIAL (MANUAL DIFF)
[2024-12-18] MEDS: LEVOTHYROXINE 75MCG (0.075MG) TAB 75 MCG PO (06:49)
[2024-12-18 06:57] LABS: POC Glucose,Bedside 103 (70-110)
[2024-12-18 07:06] LABS: Blood Urea Nitrogen 17 mg/dl (7-17); Calcium 8.5 mg/dl (8.4-10.2); Carbon Dioxide 26 mmol/L (22.0-30.0); Chloride 107 mmol/L (98-107); Creatinine Clearance Estimated 78 mL/min (50-200); Estimated Glomerular Filt Rate 83 ml/min (>60); GFR (African American) 101 ML/MIN (>60); Glucose 107 mg/dl (74-100); Sodium 139 mmol/L (136-145)
[2024-12-18 07:42] LABS: Eosinophils % 3 % (0-3); Lymphocytes % 29 % (10-50); Monocytes % 22 % (2-9); Neutrophils % 46 % (42-76); Platelet Estimate Normal; RBC Morphology Normal; Total Cells Counted 100
[2024-12-18] MEDS: POTASSIUM CHLORIDE 10MEQ TABLET.ER 10 MEQ PO (08:01)
[2024-12-18] MEDS: METOPROLOL SUCCINATE XL 50MG TABLET 50 MG PO ×2 (08:01→20:24)
[2024-12-18] MEDS: MEMANTINE 10MG TABLET 10 MG PO (08:01)
[2024-12-18] MEDS: GABAPENTIN 100MG CAPSULE 100 MG PO ×3 (08:01→20:25)
[2024-12-18] MEDS: ASPIRIN EC 81MG TABLET 81 MG PO (08:01)
[2024-12-18] MEDS: LEVOFLOXACIN/D5W 750 MG/150 ML 750 MG/150 ML PIGGYBACK 100 MG IV (08:01)
[2024-12-18] MEDS: MAGNESIUM OXIDE 400MG TABLET 400 MG PO (08:01)
[2024-12-18] MEDS: SUCRALFATE 1GM TABLET 1 GM PO ×4 (08:01→20:24)
[2024-12-18] MEDS: PANTOPRAZOLE 40MG TABLET 40 MG PO (08:01)
[2024-12-18] MEDS: FLUTICASONE PROP 50MCG NASAL SPRAY 16GM 2 SPRAY NS (08:01)
[2024-12-18] MEDS: PRASUGREL 10MG TAB 10 MG PO (08:01)
[2024-12-18] MEDS: ERYTHROMYCIN BASE 3.5 GM OINT...G. OP (08:02)
[2024-12-18 10:18] LABS: Magnesium 1.9 mg/dl (1.6-2.3)
[2024-12-18 11:29] LABS: POC Glucose,Bedside 142 (70-110)
--- NOTE | 2024-12-18 11:49 | P.PN_ITS ---
Subjective *Date: 12/18/24 *Time: 11:49 Interval history: Improved interaction today. Alert and oriented x 3. Afebrile. Tolerating p.o. intake. Stable on room air Medical Exam Vital signs and Labs for Last 24 Hours: Vital Signs Temp Pulse Resp BP Pulse Ox O2 Del Method 12/18/24 11:00 Room Air 12/18/24 09:00 Room Air 12/18/24 08:00 Room Air 12/18/24 07:36 97.8 F 100 H 18 137/65 93 L Room Air 12/18/24 06:53 Room Air 12/18/24 05:00 Room Air 12/18/24 04:00 98.2 F 85 16 148/83 H 92 L Room Air 12/18/24 02:52 Room Air 12/18/24 01:00 Room Air 12/18/24 00:00 99.0 F 101 H 17 134/77 90 L Room Air 12/17/24 23:00 Room Air 12/17/24 21:00 Room Air 12/17/24 20:00 Room Air 12/17/24 20:00 97.9 F 102 H 16 147/68 H 90 L Room Air 12/17/24 18:52 Room Air 12/17/24 17:00 Room Air 12/17/24 16:00 98.1 F 97 H 18 139/73 92 L Room Air 12/17/24 14:53 Room Air 12/17/24 13:03 Room Air 12/17/24 12:00 98.3 F 90 18 116/46 L 94 L Room Air Intake and Output 12/17/24 12/18/24 12/18/24 23:59 07:59 15:59 Intake Total 360 / 2219 270 / 270 Output Total 0 / 0 0 / 0 0 / 0 Balance 360 / 2219 0 / 270 270 / 270 Intake: Intake, Oral Amount 360 / 1680 270 / 270 Output: Output, Urine Amount 0 / 0 0 / 0 0 / 0 Other: Number of Unmeasured Voids 1 1 1 Number of Bowel Movements 1 Weight 90.446 kg Patient Weight 12/18/24 23:59 Weight 90.446 kg Laboratory Results - last 24 hr 12/17/24 16:08: POC Glucose 137 H 12/17/24 22:04: POC Glucose 150 H 12/18/24 06:09: WBC 8.4, RBC 3.91 L, Hgb 12.0 L, Hct 36.4 L, MCV 93.1, MCH 30.7, MCHC 33.0, RDW 13.6, Plt Count 183, MPV 10.2, Neut % (Auto) 47.2, Lymph % (Auto) 29.0, [place] % (Auto) 21.0 H, Eos % (Auto) 2.2, Baso % (Auto) 0.4, Neut # (Auto) 4.0, Lymph # (Auto) 2.4, [place] # (Auto) 1.8 H, Eos # (Auto) 0.2, Baso # (Auto) 0.0, Total Counted 100, Neutrophils % (Manual) 46, Lymphocytes % (Manual) 29, Monocytes % (Manual) 22 H, Eosinophils % (Manual) 3, Platelet Estimate Normal, RBC Morphology Normal, Sodium 139, Potassium 4.0, Chloride 107, Carbon Dioxide 26, Anion Gap 10.0, BUN 17, Creatinine 0.70 D, Estimated Creat Clear 78, Estimated GFR 83, Est GFR ( Amer) 101 D, Glucose 107 H, Calcium 8.5, Magnesium 1.9 D 12/18/24 06:48: POC Glucose 103 12/18/24 11:22: POC Glucose 142 H I & O for Labs for Last 24 Hours: Intake & Output 12/15/24 12/16/24 12/17/24 12/18/24 23:59 23:59 23:59 23:59 Intake Total 2219 / 2219 270 / 270 Output Total 0 / 0 0 / 0 Balance 2219 / 2219 270 / 270 Weight 84.368 kg 87.09 kg 90.446 kg Microbiology Reports for the Last 24 Hours: Microbiology 12/16/24 00:00 Blood Blood Culture - Preliminary NO GROWTH AFTER 24 HOURS 12/16/24 23:14 Blood Blood Culture - Preliminary Constitutional: Present no acute distress, obese, chronically ill appearing and cooperative Head: Present atraumatic and normocephalic ENT: Present normal exam Respiratory: Present CTA bilaterally and normal respiratory effort; Absent respiratory distress, rhonchi, stridor, wheezes or crackles Cardiac: Present Reg Rate and Rhythm GI: Present soft and normal bowel sounds; Absent distention or tenderness Extremities: Present normal inspection and full ROM Skin: Present intact; Absent erythema Neuro: Present Grossly Intact, alert, awake, oriented x 3 and moves all extremities Assessment and Plan *Assessment and plan (1) Sepsis: Status: Acute Qualifiers: Sepsis type: sepsis due to unspecified organism Sepsis acute organ dysfunction status: without acute organ dysfunction Qualified Code(s): A41.9 - Sepsis, unspecified organism Category: Medical Code(s): A41.9 - Sepsis, unspecified organism (2) Bacteremia due to Klebsiella pneumoniae: Status: Acute Category: Medical Code(s): R78.81 - Bacteremia; B96.1 - Klebsiella pneumoniae [K. pneumoniae] as the cause of diseases classified elsewhere (3) UTI (urinary tract infection): Status: Acute Category: Medical Code(s): N39.0 - Urinary tract infection, site not specified (4) Coronary artery disease: Status: Acute Qualifiers: Coronary Disease-Associated Artery/Lesion type: [place] artery [place] vs. transplanted heart: [place] heart Associated angina: without angina Qualified Code(s): I25.10 - Atherosclerotic heart disease of [place] coronary artery without angina pectoris Category: Medical Code(s): I25.10 - Atherosclerotic heart disease of [place] coronary artery without angina pectoris (5) Hypothyroidism: Status: Acute Category: Medical Code(s): E03.9 - Hypothyroidism, unspecified (6) Diabetes mellitus: Status: Acute Category: Medical Code(s): E11.9 - Type 2 diabetes mellitus without complications (7) COPD (chronic obstructive pulmonary disease): Status: Acute Qualifiers: COPD type: unspecified COPD Qualified Code(s): J44.9 - Chronic obstructive pulmonary disease, unspecified Category: Medical Code(s): J44.9 - Chronic obstructive pulmonary disease, unspecified Plan 69-year-old female who presented with sepsis concerning for source from UTI. Blood cultures are returned positive for Klebsiella. Continues to require inpatient management pending speciation and sensitivity. Problems addressed as follows: Sepsis Bacteremia from Klebsiella UTI -On admission: Fever, malaise, myalgias, nausea, vomiting; HR 125, RR 22, WBC 12.0 (Neut # 8.1), UA: nitrate positive, leukocytes 10-20, bacteria 3+. Meets sepsis criteria (tachycardia, tachypnea, leukocytosis, UTI source). Negative flu/viral PCRs -Broaden antibiotics to Levaquin 750 mg daily due to Klebsiella as source of infection. Awaiting sensitivity of blood culture. Urine culture still pending -Tolerating p.o. intake, discontinue IV fluids -White count improved 8.4, hemoglobin 12. Repeat CBC, CMP, magnesium ordered for the morning Hyperlipidemia: Continue Lipitor 20 mg nightly COPD: Continue Advair 1 puff twice daily, stable on room air. No wheeze. Diabetes: Continue sliding scale insulin with fingersticks ACHS, A1c 6.1 in October. Appears well-controlled Neuropathy: Continue gabapentin 100 mg 3 times a day per home regimen Sleep disorder/dementia: Continue mirtazapine 15 mg nightly and memantine 10 mg daily Hypothyroidism (Stable): continue levothyroxine 75 mcg daily Full code Diabetic diet Lovenox 40 mg subcu daily
[2024-12-18 16:12] LABS: POC Glucose,Bedside 125 (70-110)
--- NOTE | 2024-12-18 17:35 | PC.NURSE ---
Pt alert and oriented x4. On RA. Pt up to bedside chair most of day. Ambulating to bathroom independently. VSS. No complaints at this time, call light in reach.
[2024-12-18] MEDS: MONTELUKAST SODIUM 10MG TAB 10 MG PO (20:24)
[2024-12-18] MEDS: MIRTAZAPINE 15 MG TABLET PO (20:24)
[2024-12-18] MEDS: ATORVASTATIN 20MG TABLET 20 MG PO (20:24)
[2024-12-18 21:14] LABS: POC Glucose,Bedside 155 (70-110)
[2024-12-19 04:00] VITALS: BP 136/89; PULSE 86; RESP 16; TEMP 36.8; O2SAT 97; BMI 38.5
[2024-12-19 05:41] LABS: POC Glucose,Bedside 121 (70-110)
[2024-12-19] MEDS: FLUTICASONE/SALMETEROL 250/50MCG DISKUS 1 PUFF IH (06:04)
[2024-12-19 06:05] VITALS: O2SAT 94
[2024-12-19 06:34] LABS: Basophils % 0.5 % (0.1-2.0); Eosinophils # 0.3 K/mm3 (0.0-0.4); Eosinophils % 4.2 % (0.1-12.0); Hematocrit 37.3 % (37.0-47.0); Hemoglobin 12.3 g/dL (12.2-16.2); Lymphocytes # 2.7 K/mm3 (0.7-4.5); Lymphocytes % 34.1 % (10-50); Mean Corpuscular Hemoglobin 30.1 pg (27.0-31.2); Mean Corpuscular Volume 91.2 fl (81-99); Monocytes # 1.7 K/mm3 (0.1-1.0); Monocytes % 20.8 % (1.7-9.3); Neutrophils # 3.2 K/mm3 (1.8-7.8); Platelet Count 195 K/mm3 (142-424); Red Blood Count 4.09 M/mm3 (4.20-5.40); Red Cell Distribution Width 13.2 % (11.5-17.5); White Blood Count 7.9 K/mm3 (4.8-10.8)
[2024-12-19] MEDS: LEVOTHYROXINE 75MCG (0.075MG) TAB 75 MCG PO (06:43)
[2024-12-19] MEDS: ACETAMINOPHEN 325MG TAB 650 MG PO (06:44)
[2024-12-19 06:48] LABS: Anion Gap 11.7 mEq/L (5-15); Blood Urea Nitrogen 13 mg/dl (7-17); Calcium 8.9 mg/dl (8.4-10.2); Carbon Dioxide 27 mmol/L (22.0-30.0); Chloride 103 mmol/L (98-107); Creatinine Clearance Estimated 77 mL/min (50-200); Estimated Glomerular Filt Rate 83 ml/min (>60); GFR (African American) 101 ML/MIN (>60); Glucose 120 mg/dl (74-100); Potassium 3.7 mmoL/L (3.5-5.1); Sodium 138 mmol/L (136-145)
[2024-12-19 06:57] LABS: MANUAL DIFFERENTIAL MANUAL DIFFERENTIAL (MANUAL DIFF)
--- NOTE | 2024-12-19 07:27 | EXP.DC.SUM ---
General Admission date:: 12/17/24 Discharge date: 12/19/24 HPI HPI HPI: A 69-year-old female presents to the emergency department on December 16, 2024, for evaluation of high fever, malaise, and myalgias that began today, accompanied by nausea and vomiting. She was diagnosed with influenza on November 23, 2024, and prescribed Tamiflu, which she refused to take again due to a negative experience (undisclosed details). She reports interval improvement to baseline after the flu but awoke today with myalgias, nausea, and vomiting, denying cough, congestion, headache, chest pain, hemoptysis, hematochezia, melena, hematemesis, or hematuria. Vital signs on arrival showed BP 140/85 mmHg, HR 125 bpm with sinus tachycardia on bedside monitor, respiratory rate 22 breaths/min, SpO2 94% on room air, and temperature 98.6?F (after Tylenol 3-4 PM). Physical exam revealed clear breath sounds without increased work of breathing or adventitious sounds, normal posterior pharynx, mild diffuse nonfocal abdominal tenderness without rebound, guarding, or rigidity, and normal bowel sounds. Labs showed negative SARS-CoV-2, influenza A, and B PCRs. CBC indicated WBC 12.0 x10?/?L (Neut # 8.1, [place] # 1.6), Hgb 13.6 g/dL, glucose 126 mg/dL, BUN 21 mg/dL, Cr 0.90 mg/dL (GFR 62), AST 57 U/L, alk phos 168 U/L, total protein 8.7 g/dL, and globulin 4.0 g/dL. Urinalysis revealed glucose 3+, ketones 2+, trace blood, nitrate positive, leukocytes 10-20/HPF, and bacteria 3+. Initial interventions included a crystalloid bolus and Zofran; workup comprised labs, respiratory swabs, chest X-ray, and 12-lead EKG. Blood cultures were sent, IV Rocephin administered, and CT abdomen/pelvis without contrast showed no obstructive uropathy or hydronephrosis . Hospital Course Hospital Course Hospital Course: 69-year-old female who presented with sepsis concerning for source from UTI. Blood cultures are returned positive for Klebsiella. Sensitive to Levaquin. Discharged home on oral course of antibiotics to complete 7 days total of therapy. Clinically stable. Likely source from UTI. Problems addressed as follows: Sepsis Bacteremia from Klebsiella UTI -On admission: Fever, malaise, myalgias, nausea, vomiting; HR 125, RR 22, WBC 12.0 (Neut # 8.1), UA: nitrate positive, leukocytes 10-20, bacteria 3+. Meets sepsis criteria (tachycardia, tachypnea, leukocytosis, UTI source). Negative flu/viral PCRs. Antibiotics were broadened to Levaquin due to Klebsiella being found in her blood and gram-negative rods in urine. Sensitivities returned positive for cephalosporin and Levaquin. Continue Levaquin 750 mg daily to complete 7 days total of therapy for Klebsiella bacteremia and UTI. White count normalized to 7.9 on day of discharge. Discharged home in the care of family. Hyperlipidemia: Continue Lipitor 20 mg nightly COPD: Continue Advair 1 puff twice daily, stable on room air. No wheeze. Diabetes: Continue sliding scale insulin with fingersticks ACHS, A1c 6.1 in October. Appears well-controlled Neuropathy: Continue gabapentin 100 mg 3 times a day per home regimen Sleep disorder/dementia: Continue mirtazapine 15 mg nightly and memantine 10 mg daily Hypothyroidism (Stable): continue levothyroxine 75 mcg daily Exam Data for Last 24 hours Vital signs and Labs for Last 24 Hours: Temp Pulse Resp BP Pulse Ox O2 Del Method 98.3 F 86 16 136/89 94 L Room Air 12/19/24 04:00 12/19/24 04:00 12/19/24 04:00 12/19/24 04:00 12/19/24 06:05 12/19/24 06:48 Laboratory Results - last 24 hr 12/16/24 22:49: Urine Color Yellow, Urine Appearance Clear, Urine pH 6.5, Ur Specific [place] 1.015, Urine Protein Negative, Urine Glucose (UA) 3+, Urine Ketones 2+, Urine Blood Trace-i, Urine Nitrate Positive A, Urine Bilirubin Negative, Urine Urobilinogen 0.2, Ur Leukocyte Esterase Trace, Urine WBC 10-20, Ur Squamous Epith Cells Occasional, Urine Bacteria 3+ 12/18/24 06:09: Total Counted 100, Neutrophils % (Manual) 46, Lymphocytes % (Manual) 29, Monocytes % (Manual) 22 H, Eosinophils % (Manual) 3, Platelet Estimate Normal, RBC Morphology Normal, Magnesium 1.9 D 12/18/24 11:22: POC Glucose 142 H 12/18/24 15:59: POC Glucose 125 H 12/18/24 20:22: POC Glucose 155 H 12/19/24 05:16: POC Glucose 121 H 12/19/24 05:20: WBC 7.9, RBC 4.09 L, Hgb 12.3, Hct 37.3, MCV 91.2, MCH 30.1, MCHC 33.0, RDW 13.2, Plt Count 195, MPV 10.0, Neut % (Auto) 40.0, Lymph % (Auto) 34.1, [place] % (Auto) 20.8 H, Eos % (Auto) 4.2, Baso % (Auto) 0.5, Neut # (Auto) 3.2, Lymph # (Auto) 2.7, [place] # (Auto) 1.7 H, Eos # (Auto) 0.3, Baso # (Auto) 0.0, Sodium 138, Potassium 3.7, Chloride 103, Carbon Dioxide 27, Anion Gap 11.7, BUN 13, Creatinine 0.70, Estimated Creat Clear 77, Estimated GFR 83, Est GFR ( Amer) 101, Glucose 120 H, Calcium 8.9 I & O for Last 24 hours: Intake & Output 12/16/24 12/17/24 12/18/24 12/19/24 23:59 23:59 23:59 23:59 Intake Total 2219 / 2219 1260 / 1460 200 / 200 Output Total 0 / 0 0 / 0 0 / 0 Balance 2219 / 2219 1260 / 1460 200 / 200 Weight 84.368 kg 87.09 kg 90.446 kg 88.904 kg Microbiology Reports for the Last 24 Hours: Microbiology 12/16/24 00:00 Blood Blood Culture - Preliminary NO GROWTH AFTER 48 HOURS 12/16/24 23:14 Blood Blood Culture - Preliminary Gram Negative Rods 12/16/24 22:49 Urine,Clean Catch Urine Culture - Preliminary Gram Negative Rods Constitutional Constitutional: no acute distress, obese, chronically ill appearing and cooperative *Routine HEENT Exam Head: Present normocephalic Eye: Present EOMI and PERRL ENT: Present mucous membranes moist *Routine Neck Exam Neck: Present supple; Absent lymphadenopathy *Routine Respiratory Exam Respiratory: Present CTA bilaterally; Absent respiratory distress, rhonchi, stridor, wheezes or crackles *Routine Cardiovascular Exam Cardiovascular: Present RRR *Routine Abdominal Exam Abdominal: Present soft and normoactive bowel sounds; Absent tenderness *Routine Rectal Exam Patient deferred: visual exam *Routine Exam Patient deferred: external exam *Routine Extremities Exam Extremities: Absent cyanosis, clubbing or edema *Routine Skin Exam Skin: Present warm; Absent rash *Routine Neurological Exam Neurological: Present alert, oriented X3 and moving all extremities; Absent altered mental status Results Data Completed and Pending Labs on day of discharge: Labs from last 24 hours 12/19/24 12/19/24 12/18/24 05:20 05:16 20:22 WBC 7.9 RBC 4.09 L Hgb 12.3 Hct 37.3 MCV 91.2 MCH 30.1 MCHC 33.0 RDW 13.2 Plt Count 195 MPV 10.0 Neut % (Auto) 40.0 Lymph % (Auto) 34.1 [place] % (Auto) 20.8 H Eos % (Auto) 4.2 Baso % (Auto) 0.5 Neut # (Auto) 3.2 Lymph # (Auto) 2.7 [place] # (Auto) 1.7 H Eos # (Auto) 0.3 Baso # (Auto) 0.0 Total Counted Neutrophils % (Manual) Lymphocytes % (Manual) Monocytes % (Manual) Eosinophils % (Manual) Platelet Estimate RBC Morphology Sodium 138 Potassium 3.7 Chloride 103 Carbon Dioxide 27 Anion Gap 11.7 BUN 13 Creatinine 0.70 Estimated Creat Clear 77 Estimated GFR 83 Est GFR ( Amer) 101 Glucose 120 H POC Glucose 121 H 155 H Calcium 8.9 Magnesium Urine Color Urine Appearance Urine pH Ur Specific [place] Urine Protein Urine Glucose (UA) Urine Ketones Urine Blood Urine Nitrate Urine Bilirubin Urine Urobilinogen Ur Leukocyte Esterase Urine WBC Ur Squamous Epith Cells Urine Bacteria 12/18/24 12/18/24 12/18/24 15:59 11:22 06:09 WBC RBC Hgb Hct MCV MCH MCHC RDW Plt Count MPV Neut % (Auto) Lymph % (Auto) [place] % (Auto) Eos % (Auto) Baso % (Auto) Neut # (Auto) Lymph # (Auto) [place] # (Auto) Eos # (Auto) Baso # (Auto) Total Counted 100 Neutrophils % (Manual) 46 Lymphocytes % (Manual) 29 Monocytes % (Manual) 22 H Eosinophils % (Manual) 3 Platelet Estimate Normal RBC Morphology Normal Sodium Potassium Chloride Carbon Dioxide Anion Gap BUN Creatinine Estimated Creat Clear Estimated GFR Est GFR ( Amer) Glucose POC Glucose 125 H 142 H Calcium Magnesium 1.9 D Urine Color Urine Appearance Urine pH Ur Specific [place] Urine Protein Urine Glucose (UA) Urine Ketones Urine Blood Urine Nitrate Urine Bilirubin Urine Urobilinogen Ur Leukocyte Esterase Urine WBC Ur Squamous Epith Cells Urine Bacteria 12/16/24 22:49 WBC RBC Hgb Hct MCV MCH MCHC RDW Plt Count MPV Neut % (Auto) Lymph % (Auto) [place] % (Auto) Eos % (Auto) Baso % (Auto) Neut # (Auto) Lymph # (Auto) [place] # (Auto) Eos # (Auto) Baso # (Auto) Total Counted Neutrophils % (Manual) Lymphocytes % (Manual) Monocytes % (Manual) Eosinophils % (Manual) Platelet Estimate RBC Morphology Sodium Potassium Chloride Carbon Dioxide Anion Gap BUN Creatinine Estimated Creat Clear Estimated GFR Est GFR ( Amer) Glucose POC Glucose Calcium Magnesium Urine Color Yellow Urine Appearance Clear Urine pH 6.5 Ur Specific [place] 1.015 Urine Protein Negative Urine Glucose (UA) 3+ Urine Ketones 2+ Urine Blood Trace-i Urine Nitrate Positive A Urine Bilirubin Negative Urine Urobilinogen 0.2 Ur Leukocyte Esterase Trace Urine WBC 10-20 Ur Squamous Epith Cells Occasional Urine Bacteria 3+ Preliminary micro results at discharge 12/16/24 00:00 Blood Culture - Preliminary Blood NO GROWTH AFTER 48 HOURS 12/16/24 23:14 Blood Culture - Preliminary Blood Gram Negative Rods 12/16/24 22:49 Urine Culture - Preliminary Urine,Clean Catch Gram Negative Rods DS: Diagnosis Discharge Diagnosis (1) Sepsis: Status: Acute Code(s): A41.9 - Sepsis, unspecified organism Qualifiers: Sepsis acute organ dysfunction status: without acute organ dysfunction Sepsis type: sepsis due to unspecified organism Qualified Code(s): A41.9 - Sepsis, unspecified organism (2) Bacteremia due to Klebsiella pneumoniae: Status: Acute Code(s): R78.81 - Bacteremia; B96.1 - Klebsiella pneumoniae [K. pneumoniae] as the cause of diseases classified elsewhere (3) UTI (urinary tract infection): Status: Acute Code(s): N39.0 - Urinary tract infection, site not specified (4) Coronary artery disease: Status: Acute Code(s): I25.10 - Atherosclerotic heart disease of [place] coronary artery without angina pectoris Qualifiers: Associated angina: without angina Coronary Disease-Associated Artery/Lesion type: [place] artery [place] vs. transplanted heart: [place] heart Qualified Code(s): I25.10 - Atherosclerotic heart disease of [place] coronary artery without angina pectoris (5) Hypothyroidism: Status: Acute Code(s): E03.9 - Hypothyroidism, unspecified (6) Diabetes mellitus: Status: Acute Code(s): E11.9 - Type 2 diabetes mellitus without complications (7) COPD (chronic obstructive pulmonary disease): Status: Acute Code(s): J44.9 - Chronic obstructive pulmonary disease, unspecified Qualifiers: COPD type: unspecified COPD Qualified Code(s): J44.9 - Chronic obstructive pulmonary disease, unspecified Meds Home Medications and Allergies Home Medications ?Medication ?Instructions ?Recorded ?Confirmed ?Type alendronate 70 mg tablet 70 mg PO WEEKLY 09/16/24 12/17/24 History fluticasone propionate 50 2 spray intranasal DAILY 09/16/24 12/17/24 History mcg/actuation nasal spray,suspension gabapentin 100 mg capsule 100 mg PO TID 09/16/24 12/17/24 History levothyroxine 75 mcg tablet 75 mcg PO DAILY 09/16/24 12/17/24 History atorvastatin 20 mg tablet 20 mg PO HS 10/03/24 12/17/24 History fluticasone 250 mcg-salmeterol 50 1 inh inhalation BID 90 days #180 10/03/24 12/17/24 Rx mcg/dose blistr powdr for ea inhalation (Advair Diskus) pantoprazole 40 mg tablet,delayed 40 mg PO DAILY 10/03/24 12/17/24 History release prasugrel HCl 10 mg tablet 10 mg PO DAILY 30 days #30 tabs 10/07/24 12/17/24 Rx (Effient) mirtazapine 15 mg tablet 15 mg PO HS #30 tabs 11/07/24 12/17/24 Rx vibegron 75 mg tablet (Gemtesa) 75 mg PO DAILY 11/07/24 12/16/24 History meloxicam 15 mg tablet 15 mg PO DAILY #30 tabs 11/20/24 12/17/24 Rx metoprolol succinate 50 mg 50 mg PO Q12H #60 tabs 11/20/24 12/17/24 Rx tablet,extended release 24 hr potassium chloride 10 mEq 10 meq PO DAILY #90 tabs 11/28/24 12/17/24 Rx tablet,extended release(part/cryst) sucralfate 1 gram tablet 1 g PO QID 30 days #120 tabs 12/09/24 12/17/24 Rx memantine 10 mg tablet 10 mg PO DAILY #90 tabs 12/10/24 12/17/24 Rx magnesium oxide 500 mg PO DAILY 12/16/24 12/17/24 History albuterol sulfate 90 mcg/actuation 2 inh inhalation Q4HP PRN 12/17/24 12/17/24 History aerosol inhaler WHEEZING/SOA aspirin 81 mg tablet,delayed 81 mg PO DAILY 12/17/24 12/17/24 History release montelukast 10 mg tablet 10 mg PO HS 12/17/24 12/17/24 History levofloxacin 750 mg tablet 750 mg PO DAILY #3 tabs 12/19/24 Rx New Prescriptions to Start Prescriptions: levofloxacin Allan Baca Allergies Allergy/AdvReac Type Severity Reaction Status Date / Time hydrocodone Allergy Mild Verified 11/07/24 11:02 codeine AdvReac Mild Verified 11/07/24 11:02 Discharge Plan Disposition Patient Disposition: Home, Self-Care Condition: Fair Discharge Order Discharge Orders: Discharge Order (Routine); Ordered 12/19/24 Ordered By: Allan Baca Follow up Plan Follow up with: Reza Panchal MD [Primary Care Provider] - 12/30/24 10:40 am Prescriptions/Medication Reconciliation: New levofloxacin 750 mg tablet 750 mg PO DAILY Qty: 3 0RF Rx Instructions: first dose morning of 12/20/24 Continued Gemtes[place] 75 mg tablet 75 mg PO DAILY mirtazapine 15 mg tablet 15 mg PO HS Qty: 30 2RF atorvastatin 20 mg tablet 20 mg PO HS Patient Comments: TAKE 1 TABLET BY MOUTH DAILY pantoprazole 40 mg tablet,delayed release (DR/EC) 40 mg PO DAILY Patient Comments: TAKE 1 TABLET BY MOUTH TWICE DAILY fluticasone propion-salmeterol [Advair Diskus] 250-50 mcg/dose blister with device 1 inh inhalation BID 90 Days Qty: 180 3RF metoprolol succinate 50 mg tablet extended release 24 hr 50 mg PO Q12H Qty: 60 2RF meloxicam 15 mg tablet 15 mg PO DAILY Qty: 30 2RF potassium chloride 10 mEq tablet,ER particles/crystals 10 meq PO DAILY Qty: 90 0RF sucralfate 1 gram tablet 1 g PO QID 30 Days Qty: 120 1RF memantine 10 mg tablet 10 mg PO DAILY Qty: 90 0RF alendronate 70 mg tablet 70 mg PO WEEKLY Patient Comments: TAKE 1 TABLET BY MOUTH EVERY 7 DAYS levothyroxine 75 mcg tablet 75 mcg PO DAILY Patient Comments: TAKE 1 TABLET BY MOUTH ONCE DAILY FOR THYROID DISEASE gabapentin 100 mg capsule 100 mg PO TID Patient Comments: TAKE 1 CAPSULE BY MOUTH THREE TIMES DAILY fluticasone propionate 50 mcg/actuation spray,suspension 2 spray INTRANASAL DAILY magnesium oxide 500 mg magnesium tablet 500 mg PO DAILY Rx Instructions: TAKE 1 TABLET BY MOUTH ONCE DAILY aspirin 81 mg tablet,delayed release (DR/EC) 81 mg PO DAILY Patient Comments: TAKE 1 TABLET BY MOUTH DAILY montelukast 10 mg tablet 10 mg PO HS albuterol sulfate 90 mcg/actuation HFA aerosol inhaler 2 inh INHALATION Q4HP PRN (Reason: WHEEZING/SOA) Patient Comments: INHALE 2 PUFFS BY MOUTH EVERY 4 HOURS NEEDED FOR WHEEZING OR SHORTNESS OF AIR prasugrel HCl [Effient] 10 mg Tablet 10 mg PO DAILY 30 Days Qty: 30 6RF Problem Reconciliation Problems Reviewed?: Yes Patient Discharge Instructions ACTIVITY: Continue current activity DIET: continue same diet Patient Instructions: DI for Sepsis -- Adult Print Language: [place] Providers Primary Care Provider: Reza Panchal Admit Provider: Allan Baca Attending Provider: Allan Baca
[2024-12-19 08:00] VITALS: BP 114/53; PULSE 103; RESP 18; TEMP 36.8; O2SAT 95
[2024-12-19 08:12] LABS: Magnesium 1.4 mg/dl (1.6-2.3)
[2024-12-19 08:26] LABS: Eosinophils % 3 % (0-3); Lymphocytes % 43 % (10-50); Monocytes % 13 % (2-9); Neutrophils % 41 % (42-76); Platelet Estimate Normal; RBC Morphology Normal; Total Cells Counted 100
[2024-12-19] MEDS: ERYTHROMYCIN BASE 3.5 GM OINT...G. OP (09:43)
[2024-12-19] MEDS: POTASSIUM CHLORIDE 10MEQ TABLET.ER 10 MEQ PO (09:43)
[2024-12-19] MEDS: FLUTICASONE PROP 50MCG NASAL SPRAY 16GM 2 SPRAY NS (09:43)
[2024-12-19] MEDS: GABAPENTIN 100MG CAPSULE 100 MG PO (09:43)
[2024-12-19] MEDS: LEVOFLOXACIN/D5W 750 MG/150 ML 750 MG/150 ML PIGGYBACK 100 MG IV (09:43)
[2024-12-19] MEDS: MAGNESIUM OXIDE 400MG TABLET 400 MG PO (09:44)
[2024-12-19] MEDS: MEMANTINE 10MG TABLET 10 MG PO (09:44)
[2024-12-19] MEDS: METOPROLOL SUCCINATE XL 50MG TABLET 50 MG PO (09:44)
[2024-12-19] MEDS: ASPIRIN EC 81MG TABLET 81 MG PO (09:44)
[2024-12-19] MEDS: PANTOPRAZOLE 40MG TABLET 40 MG PO (09:44)
[2024-12-19] MEDS: SUCRALFATE 1GM TABLET 1 GM PO (09:44)
[2024-12-19] MEDS: PRASUGREL 10MG TAB 10 MG PO (09:44)
--- NOTE | 2024-12-20 10:16 | SW/DCPLANNER ---
Spoke with patient on the phone. Patient stated that she had a dizzy spell last night. Patient stated that she is aware of her upcoming appointments. Patient stated that she was able to pickle maker her new medicine. Patient stated that she has no concerns or questions at this time. Gabe Powell
== END 2024-12-19 11:58 | disposition home or self-care (01) | DRG 872 ==
LOC: ER 20:44 → 2ND 12-17 00:57
PROVIDERS: Nurse Practitioner Family; Physician Assistant; Admitting Provider Internal Medicine Adolescent Medicine; Emergency Provider Emergency Medicine; PCP Family Medicine; Visit Provider Internal Medicine Adolescent Medicine
DX: A41.9 Sepsis, unspecified organism (principal); N39.0 Urinary tract infection, site not specified; I25.10 Atherosclerotic heart disease of native coronary artery without angina pectoris; B96.1 Klebsiella pneumoniae [K. pneumoniae] as the cause of diseases classified elsewhere; E11.40 Type 2 diabetes mellitus with diabetic neuropathy, unspecified; E03.9 Hypothyroidism, unspecified; E66.9 Obesity, unspecified; N32.81 Overactive bladder; F03.90 Unspecified dementia, unspecified severity, without behavioral disturbance, psychotic disturbance, mood disturbance, and anxiety; E11.22 Type 2 diabetes mellitus with diabetic chronic kidney disease; N18.9 Chronic kidney disease, unspecified; K44.9 Diaphragmatic hernia without obstruction or gangrene; E78.5 Hyperlipidemia, unspecified; R11.2 Nausea with vomiting, unspecified; E11.65 Type 2 diabetes mellitus with hyperglycemia; J44.9 Chronic obstructive pulmonary disease, unspecified; Z79.890 Hormone replacement therapy; Z86.718 Personal history of other venous thrombosis and embolism; Z79.02 Long term (current) use of antithrombotics/antiplatelets; Z68.38 Body mass index [BMI] 38.0-38.9, adult; Z90.49 Acquired absence of other specified parts of digestive tract; Z79.51 Long term (current) use of inhaled steroids; Z88.5 Allergy status to narcotic agent; Z79.4 Long term (current) use of insulin
CPT/HCPCS: 36415; 71045; 74176; 80048; 80053; 80061; 81001; 82962; 83605; 83735; 84100; 85007; 85025; 87040; 87077; 87086; 87088; 87186; 87636; 93005; 94640; 97163; 97165; 99285; J0696; J1885; J1956; J2405; J3475; J7030; J7120

== ENCOUNTER 2024-12-30 11:35 | Outpatient (CLI) | payer MEDICARE, MEDICAID, SELFPAY ==
[2024-12-30 19:23] LABS: Basophils # 0.1 K/mm3 (0-0.2); Basophils % 0.8 % (0.1-2.0); Eosinophils # 0.3 K/mm3 (0.0-0.4); Eosinophils % 4.2 % (0.1-12.0); Hematocrit 43.1 % (37.0-47.0); Hemoglobin 13.7 g/dL (12.2-16.2); Lymphocytes # 2.5 K/mm3 (0.7-4.5); Lymphocytes % 32.7 % (10-50); Mean Corpuscular HGB Conc 31.8 g/dL (31.8-35.4); Mean Corpuscular Hemoglobin 30.2 pg (27.0-31.2); Mean Corpuscular Volume 94.9 fl (81-99); Mean Platelet Volume 10.3 fl (7.4-10.4); Monocytes # 1.3 K/mm3 (0.1-1.0); Monocytes % 16.8 % (1.7-9.3); Neutrophils # 3.4 K/mm3 (1.8-7.8); Neutrophils % 45.1 % (37.0-80.0); Platelet Count 276 K/mm3 (142-424); Red Blood Count 4.54 M/mm3 (4.20-5.40); Red Cell Distribution Width 13.7 % (11.5-17.5); White Blood Count 7.6 K/mm3 (4.8-10.8)
[2024-12-30 20:33] LABS: Chloride 104 mmol/L (98-107); Sodium 140 mmol/L (136-145)
[2024-12-30 20:34] LABS: Potassium 4.5 mmoL/L (3.5-5.1)
[2024-12-30 20:36] LABS: Blood Urea Nitrogen 22 mg/dl (7-17); Estimated Glomerular Filt Rate 83 ml/min (>60); GFR (African American) 101 ML/MIN (>60)
[2024-12-30 20:37] LABS: Anion Gap 11.5 mEq/L (5-15); Calcium 9.4 mg/dl (8.4-10.2); Carbon Dioxide 29 mmol/L (22.0-30.0); Glucose 126 mg/dl (74-100)
== END 2024-12-30 23:59 | disposition home or self-care (01) ==
LOC: LAB.DROPOF 12-31 15:18
PROVIDERS: PCP Family Medicine; Visit Provider Family Medicine
DX: N39.0 Urinary tract infection, site not specified (principal); A41.9 Sepsis, unspecified organism
CPT/HCPCS: 80048; 85025; 87086; 87088; 87186

== ENCOUNTER 2025-01-06 10:12 | Emergency (ER) | payer MEDICARE, MEDICAID, SELFPAY ==
[2025-01-06 10:21] VITALS: BP 151/78; PULSE 92; RESP 18; TEMP 36.5; O2SAT 94; BMI 36.9
--- NOTE | 2025-01-06 10:37 | CT_ITS ---
FINAL REPORT TECHNIQUE: Thin section axial images were obtained from the lung bases to the pubic symphysis without IV contrast. Coronal reconstruction images were obtained from the axial data. Exam was performed using dose reduction technique. CLINICAL HISTORY: R flank pain rad to lower abd, recurrent UTI COMPARISON: 12/17/2024 FINDINGS: Scarring is seen at the lung bases. There are no renal or ureteral stones. There is no hydronephrosis or perinephric stranding. The gallbladder is absent. The remaining unenhanced solid abdominal organs are unremarkable. There is a moderate size hiatal hernia. There is no evidence of small bowel obstruction. The appendix is normal. There is diverticulosis without evidence of diverticulitis. GI tract is without acute abnormality. Uterus is present. There is no lymphadenopathy or ascites. No acute osseous abnormality is identified. IMPRESSION: No renal or ureteral stones. No hydronephrosis. No acute abnormality. Reviewed, Interpreted and Dictated by Carolina Guerrier MD Transcribed by Kelsey Mena Authenticated and [facility]
[2025-01-06 10:40] LABS: Microscopic, Urine URINE MICROSCOPIC (MICROSCOPIC)
[2025-01-06 10:52] LABS: Appearance,Urine CLEAR (Clear); Bilirubin,Urine Negative (Negative); Blood, Urine SMALL (Negative); Color,Urine YELLOW (Yellow); Glucose,Urine (UA) >=1000 (Negative); Ketones,Urine Negative (Negative); Leukocyte Esterase,Urine Negative (Negative); Nitrate,Urine Negative (Negative); Protein,Urine Negative (Negative); Specific Gravity, Urine 1.015 (1.005-1.030); Urobilinogen,Urine 0.2 EU/dl (0.2)
[2025-01-06 11:05] LABS: Bacteria,Urine Trace /lpf; RBC,Urine Occasional #/hpf (0-3)
--- NOTE | 2025-01-06 11:16 | PC.NURSE ---
IV would not draw patient was straight stick to obtain labs, blood sent to lab
[2025-01-06] MEDS: ACETAMINOPHEN 500MG TAB 1000 MG PO (11:17)
[2025-01-06 11:18] LABS: Basophils % 0.5 % (0.1-2.0); Eosinophils # 0.2 K/mm3 (0.0-0.4); Eosinophils % 2.8 % (0.1-12.0); Hematocrit 38.8 % (37.0-47.0); Hemoglobin 12.9 g/dL (12.2-16.2); Lymphocytes # 2.9 K/mm3 (0.7-4.5); Lymphocytes % 35.9 % (10-50); Mean Corpuscular HGB Conc 33.2 g/dL (31.8-35.4); Mean Corpuscular Hemoglobin 30.3 pg (27.0-31.2); Mean Corpuscular Volume 91.1 fl (81-99); Mean Platelet Volume 9.9 fl (7.4-10.4); Monocytes # 1.4 K/mm3 (0.1-1.0); Monocytes % 17.9 % (1.7-9.3); Neutrophils # 3.4 K/mm3 (1.8-7.8); Neutrophils % 42.8 % (37.0-80.0); Platelet Count 214 K/mm3 (142-424); Red Blood Count 4.26 M/mm3 (4.20-5.40); Red Cell Distribution Width 13.2 % (11.5-17.5); White Blood Count 7.9 K/mm3 (4.8-10.8)
[2025-01-06] MEDS: KETOROLAC 30MG/ML VIAL 15 MG IV (11:18)
--- NOTE | 2025-01-06 11:18 | ED_ITS ---
Discharge Plan Disposition Patient Disposition: Home, Self-Care Condition: Good Prescriptions Prescriptions: New methocarbamol 750 mg tablet 750 mg PO Q8H PRN (Reason: pain) Qty: 20 0RF No Action mirtazapine 15 mg tablet 15 mg PO HS Qty: 30 2RF pantoprazole 40 mg tablet,delayed release (DR/EC) 40 mg PO DAILY Patient Comments: TAKE 1 TABLET BY MOUTH TWICE DAILY fluticasone propion-salmeterol [Advair Diskus] 250-50 mcg/dose blister with device 1 inh inhalation BID 90 Days Qty: 180 3RF metoprolol succinate 50 mg tablet extended release 24 hr 50 mg PO Q12H Qty: 60 2RF meloxicam 15 mg tablet 15 mg PO DAILY Qty: 30 2RF potassium chloride 10 mEq tablet,ER particles/crystals 10 meq PO DAILY Qty: 90 0RF sucralfate 1 gram tablet 1 g PO QID 30 Days Qty: 120 1RF memantine 10 mg tablet 10 mg PO DAILY Qty: 90 0RF atorvastatin 20 mg tablet 20 mg PO HS Qty: 30 1RF cefdinir 300 mg capsule 300 mg PO BID 5 Days Qty: 10 0RF Jardiance 10 mg tablet 10 mg PO DAILY Qty: 90 0RF alendronate 70 mg tablet 70 mg PO WEEKLY Patient Comments: TAKE 1 TABLET BY MOUTH EVERY 7 DAYS levothyroxine 75 mcg tablet 75 mcg PO DAILY Patient Comments: TAKE 1 TABLET BY MOUTH ONCE DAILY FOR THYROID DISEASE gabapentin 100 mg capsule 100 mg PO TID Patient Comments: TAKE 1 CAPSULE BY MOUTH THREE TIMES DAILY fluticasone propionate 50 mcg/actuation spray,suspension 2 spray INTRANASAL DAILY magnesium oxide 500 mg magnesium tablet 500 mg PO DAILY Rx Instructions: TAKE 1 TABLET BY MOUTH ONCE DAILY aspirin 81 mg tablet,delayed release (DR/EC) 81 mg PO DAILY Patient Comments: TAKE 1 TABLET BY MOUTH DAILY montelukast 10 mg tablet 10 mg PO HS albuterol sulfate 90 mcg/actuation HFA aerosol inhaler 2 inh INHALATION Q4HP PRN (Reason: WHEEZING/SOA) Patient Comments: INHALE 2 PUFFS BY MOUTH EVERY 4 HOURS NEEDED FOR WHEEZING OR SHORTNESS OF AIR prasugrel HCl [Effient] 10 mg Tablet 10 mg PO DAILY 30 Days Qty: 30 6RF Referrals Follow up/Referrals: Reza Panchal MD [Primary Care Provider] - See instructions Activity Restrictions/Add. Instructions Additional Instructions/Restrictions: You were evaluated in the emergency department today. At this time, your labs and CT scan are reassuring. It is possible this pain could be coming from the muscles in your back. Please case picker your prescription for muscle relaxer and take as needed for pain. Take Tylenol and ibuprofen as needed for pain as well. Follow-up closely with your primary care provider. Continue taking the antibiotic that you are prescribed for your UTI. Return to the emergency department for new or worsening symptoms Clinical Impressions Clinical Impression: Back pain Instructions Patient Instructions: DI for Low Back Pain, DI for Abdominal Pain-Adult, DI for Thoracic Back Pain Print Language Print Language: [place] Discharge ED Provider: Ann Meeks General Adult HPI General Chief complaint: Urogenital-Female Stated complaint: back pain abd pain Time Seen by Provider: 01/06/25 10:30 Mode of Arrival: Ambulatory Source of Information: Patient Description of Symptoms (Recalled from ER Triage Doc. by RN): Patient reports bilateral lower back pain and abdomen pain since yesterday. States she was just discharged from the hospital for an UTI and sepsis. History of Present Illness HPI narrative: This patient is a 69-year-old female with a history of obesity, CAD, COPD, rheumatoid arthritis, hypertension, hyperlipidemia, and recurrent UTIs with recent Klebsiella bacteremia requiring admission to the hospital presenting to the emergency department for evaluation with concern for right sided low back/flank pain that radiates around to her abdomen. She notes that it started yesterday. She is still taking antibiotic for UTI, she notes she is on cefdinir. Despite this, she notes she did have a fever last night. No nausea, vomiting, changes in bowel movements. She does note urinary frequency. No other concerns or complaints noted at this time. Related Data Home Medications ?Medication ?Instructions ?Recorded ?Confirmed alendronate 70 mg tablet 70 mg PO WEEKLY 09/16/24 12/30/24 fluticasone propionate 50 2 spray intranasal DAILY 09/16/24 12/30/24 mcg/actuation nasal spray,suspension gabapentin 100 mg capsule 100 mg PO TID 09/16/24 12/30/24 levothyroxine 75 mcg tablet 75 mcg PO DAILY 09/16/24 12/30/24 pantoprazole 40 mg tablet,delayed 40 mg PO DAILY 10/03/24 12/30/24 release magnesium oxide 500 mg PO DAILY 12/16/24 12/30/24 albuterol sulfate 90 mcg/actuation 2 inh inhalation Q4HP PRN 12/17/24 12/30/24 aerosol inhaler WHEEZING/SOA aspirin 81 mg tablet,delayed 81 mg PO DAILY 12/17/24 12/30/24 release montelukast 10 mg tablet 10 mg PO HS 12/17/24 12/30/24 Previous Rx's ?Medication ?Instructions ?Recorded fluticasone 250 mcg-salmeterol 50 1 inh inhalation BID 90 days #180 10/03/24 mcg/dose blistr powdr for ea inhalation (Advair Diskus) prasugrel HCl 10 mg tablet 10 mg PO DAILY 30 days #30 tabs 10/07/24 (Effient) mirtazapine 15 mg tablet 15 mg PO HS #30 tabs 11/07/24 meloxicam 15 mg tablet 15 mg PO DAILY #30 tabs 11/20/24 metoprolol succinate 50 mg 50 mg PO Q12H #60 tabs 11/20/24 tablet,extended release 24 hr potassium chloride 10 mEq 10 meq PO DAILY #90 tabs 11/28/24 tablet,extended release(part/cryst) sucralfate 1 gram tablet 1 g PO QID 30 days #120 tabs 12/09/24 memantine 10 mg tablet 10 mg PO DAILY #90 tabs 12/10/24 atorvastatin 20 mg tablet 20 mg PO HS #30 tabs 12/20/24 cefdinir 300 mg capsule 300 mg PO BID 5 days #10 caps 01/03/25 empagliflozin 10 mg tablet 10 mg PO DAILY #90 tabs 01/03/25 (Jardiance) methocarbamol 750 mg tablet 750 mg PO Q8H PRN pain #20 tabs 01/06/25 Allergies Allergy/AdvReac Type Severity Reaction Status Date / Time hydrocodone Allergy Mild Unknown Verified 01/06/25 10:25 allergy reaction acetaminophen (From Allergy Unknown Verified 01/06/25 10:25 Tylenol-Codeine #3) allergy reaction metformin Allergy Unknown Verified 01/06/25 10:25 allergy reaction codeine AdvReac Mild Unknown Verified 01/06/25 10:25 allergy reaction PFSH PFSH Disclaimer: The information contained in this section may have been updated after the patient was seen, as this information can be updated by other users. 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 Stress incontinence Urge incontinence Overactive bladder Allergic rhinitis Coronary artery calcification seen on CAT scan Chest pain Fatigue History of DVT of lower extremity History of sleep apnea Bronchitis, mucopurulent recurrent Dyspnea on exertion Bronchiectasis Asthma Edema Hyperlipidemia associated with type 2 diabetes mellitus Urinary incontinence Onychomycosis Diabetic neuropathy Breast cancer screening by mammogram Dementia Diabetes mellitus Bronchitis COPD (chronic obstructive pulmonary disease) Colonoscopy planned Gallbladder anomaly Rheumatoid arthritis Osteoporosis Back pain Acid reflux disease Carpal tunnel syndrome Anxiety Hypothyroidism Sleep apnea High blood pressure Arthritis Varicose veins of ankle Depression Acute asthma Surgical History History of cataract surgery History of esophagogastroduodenoscopy (EGD) H/O right heart catheterization History of cholecystectomy H/O tubal ligation History of hernia repair Total knee replacement status Social History Smoking Status: Never smoker alcohol intake: never substance use type: denies use current occupational status: unemployed Travel in the last 8 weeks: None Have you lived/traveled outside [place] in past 30 days?: No Contact w/someone who lives/traveled outside [place] past 30 days?: No Exposure to someone with infectious disease in past 14 days?: No Do you have a fever (greater than 100.4 F or 38 C)?: No Have you tested positive for COVID-19: No Exposed to someone with COVID-19 in past 14 days?: No Do you have a sore throat?: No Do you have a cough?: No Do you have any weakness?: No Do you have any diarrhea?: No Are you experiencing any unusual bleeding?: No Do you have any muscle aches/pain?: No Do you have any abdominal pain?: Yes Are you experiencing loss of taste or smell?: No Other 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 Have you received the Flu Vaccine for this season: No Have you received the Pneumonia Vaccine: No ROS Obtained: Yes All systems reviewed & no additional complaints except as documented Physical Exam General General appearance: alert, in no apparent distress and obese Head Head exam: atraumatic and normocephalic Eye Eye exam: Present normal appearance, PERRL and EOMI ENT ENT exam: Present normal exam, normal oropharynx, mucous membranes moist and normal external ear exam Neck Neck exam: Present normal inspection, full ROM and trachea midline; Absent tenderness Chest Chest inspection: Present normal inspection and symmetric chest wall rise; Absent tenderness Respiratory Respiratory exam: Present normal lung sounds bilaterally; Absent respiratory distress, wheezes, stridor or accessory muscle use Cardiovascular Cardiovascular exam: Present regular rate and normal rhythm Abdominal Exam Abdominal exam: Present soft and tenderness (R side of abdomen); Absent distention or guarding Extremities Exam Extremities exam: Present normal inspection, full ROM and normal capillary refill; Absent tenderness or edema Back Exam Back exam: Present normal inspection and full ROM; Absent tenderness Neurological Exam Neurological exam: Present alert, oriented X3, CN II-XII intact and normal gait; Absent motor sensory deficit Psychiatric Psychiatric exam: Present normal affect and normal mood Skin Skin exam: Present warm and dry Medical Decision Making Medical Records Medical records reviewed: Yes I reviewed the patient's medical records. Screening: Per USPSTF and CDC recommendations, given the prevalence of disease in our region, it is our hospital?s policy to screen for HIV and viral Hepatitis for all patients aged 18 and over and those with ongoing risk factors. Andre Inquiry Pt receiving controlled substance: No Vital Signs: 01/06/25 10:21 01/06/25 11:40 01/06/25 12:31 Temperature 97.7 F Temperature Source Oral Pulse Rate 69 58 L Pulse Rate [Radial] 92 H Respiratory Rate 18 Blood Pressure 120/69 116/47 L Blood Pressure [Right Arm] 151/78 H Blood Pressure Mean [Right Arm] 102 Blood Pressure Source [Right Arm] Automatic Cuff Blood Pressure Position [Right Arm] Sitting 02 Sat by Pulse Oximetry 94 L 97 95 Oxygen Delivery Method Room Air Room Air Room Air 01/06/25 13:00 01/06/25 13:30 01/06/25 14:06 Temperature 98.1 F Temperature Source Pulse Rate 64 62 68 Pulse Rate [Radial] Respiratory Rate 16 Blood Pressure 120/66 149/89 H 166/86 H Blood Pressure [Right Arm] Blood Pressure Mean [Right Arm] Blood Pressure Source [Right Arm] Blood Pressure Position [Right Arm] 02 Sat by Pulse Oximetry 95 97 Oxygen Delivery Method Room Air Room Air Lab Data Lab results reviewed: Yes I reviewed the patient's lab results. Lab Results 01/06/25 10:20: Urine Color Yellow, Urine Appearance Clear, Urine pH 6.0, Ur Specific Moore 1.015, Urine Protein Negative, Urine Glucose (UA) >=1000, Urine Ketones Negative, Urine Blood Small, Urine Nitrate Negative, Urine Bilirubin Negative, Urine Urobilinogen 0.2, Ur Leukocyte Esterase Negative, Urine RBC Occasional, Urine WBC None, Ur Squamous Epith Cells 3-5, Urine Bacteria Trace 01/06/25 11:05: WBC 7.9, RBC 4.26, Hgb 12.9, Hct 38.8, MCV 91.1, MCH 30.3, MCHC 33.2, RDW 13.2, Plt Count 214, MPV 9.9, Neut % (Auto) 42.8, Lymph % (Auto) 35.9, [place] % (Auto) 17.9 H, Eos % (Auto) 2.8, Baso % (Auto) 0.5, Neut # (Auto) 3.4, Lymph # (Auto) 2.9, [place] # (Auto) 1.4 H, Eos # (Auto) 0.2, Baso # (Auto) 0.0, Sodium 139, Potassium 4.1, Chloride 106, Carbon Dioxide 27, Anion Gap 10.1, BUN 16, Creatinine 0.70, Estimated Creat Clear 74, Estimated GFR 83, Est GFR ( Amer) 101, Glucose 102 H, Calcium 9.7, Total Bilirubin 0.7, AST 39 H, ALT 29, Alkaline Phosphatase 97, Total Protein 7.9, Albumin 4.4, Globulin 3.5 H, Albumin/Globulin Ratio 1.3, Lipase 71 01/06/25 11:05 01/06/25 11:05 Orders (Tests/Meds): ED MEDICATIONS Discontinued Medications Generic Name Dose Route Start Last Admin Trade Name Freq PRN Reason Stop Dose Admin Acetaminophen 1,000 mg 01/06/25 10:37 01/06/25 11:17 Acetaminophen 500mg Tab PO 01/06/25 10:38 1,000 mg ONCE ONE Administration Ketorolac Tromethamine 15 mg 01/06/25 10:37 01/06/25 11:18 Ketorolac 30mg/Ml Vial IV 01/06/25 10:38 15 mg ONCE ONE Administration ORDERS Category Date Time Status CT abdomen pelvis wo con Stat Cat Scan 01/06/25 10:37 Completed Complete Blood Count Auto Diff Stat Lab 01/06/25 11:05 Completed Comprehensive Metabolic Panel Stat Lab 01/06/25 11:05 Completed Lipase Stat Lab 01/06/25 11:05 Completed UA [Urinalysis and Microscopic] Stat Lab 01/06/25 10:20 Completed Urine Culture Stat Micro 01/06/25 10:20 Received Medical Decision Narrative: In summary, this patient is a 69-year-old presenting to the Emergency Department for evaluation of pain radiating around to her right lower abdomen. She also notes fever last night as well as urinary frequency. She is currently on antibiotics for treatment of UTI and has been hospitalized recently for Klebsiella bacteremia. Differential diagnoses considered include but are not limited to pyelonephritis, urolithiasis, colitis, diverticulitis, appendicitis. Ruling out the most morbid conditions drove assessment. It should be noted patient's history includes obesity, hypertension, hyperlipidemia, COPD, rheumatoid arthritis, CAD which may or may not be at goal therapy. This complicates all aspects of care by increasing patient's risk for morbidity. I reviewed patient's past medical records and noted recent admission for Klebsiella bacteremia, recent follow-up by PCP 12/30/2024, urine culture 12/30/2024 showing E. coli for which she is currently on cefdinir. On exam, the patient is some right sided abdominal tenderness but otherwise exam is reassuring. Vitals are reassuring on cardiac telemetry workup included CBC, CMP, lipase, urinalysis, urine culture, CT abdomen pelvis without IV contrast. She was given IV Toradol, oral Tylenol for symptomatic improvement. I independently interpreted CT scan prior to the radiologist read and noted no obvious obstructive uropathy, no acute inflammatory process. Please see their read for final interpretation. Labs were obtained that demonstrated reassuring CBC with no significant leukocytosis or anemia, chemistry is reassuring with normal kidney function, no significant electrolyte derangements. Urinalysis is not concerning for acute infection at this time.. On reassessment, patient had decent improvement after administration of interventions above. She complains of pain when she gets up and moves, but otherwise at rest she is doing okay. I feel the pain could be musculoskeletal in nature given this. Workup overall has been very reassuring and I feel we have excluded acute left-sided pathology as a cause of her symptoms. She is agreeable to discharge home with a trial of Robaxin as muscle relaxer and instructions for close follow-up with primary care. Strict return precautions were given. Critical Care Critical Care Time Critical Care Time: No
[2025-01-06 11:24] LABS: Albumin Level 4.4 g/dl (3.5-5.0); Chloride 106 mmol/L (98-107); Sodium 139 mmol/L (136-145)
[2025-01-06 11:25] LABS: Potassium 4.1 mmoL/L (3.5-5.1)
[2025-01-06 11:27] LABS: Alanine Aminotransferase 29 U/L (12-78); Albumin/Globulin Ratio 1.3 (1.1-1.8); Alkaline Phosphatase 97 U/L (38-126); Anion Gap 10.1 mEq/L (5-15); Aspartate Amino Transferase 39 U/L (14-36); Bilirubin,Total 0.7 mg/dl (0.2-1.3); Blood Urea Nitrogen 16 mg/dl (7-17); Carbon Dioxide 27 mmol/L (22.0-30.0); Creatinine Clearance Estimated 74 mL/min (50-200); Estimated Glomerular Filt Rate 83 ml/min (>60); GFR (African American) 101 ML/MIN (>60); Globulin 3.5 g/dL (1.3-3.2); Total Protein,Serum 7.9 g/dl (6.3-8.2)
[2025-01-06 11:28] LABS: Calcium 9.7 mg/dl (8.4-10.2); Glucose 102 mg/dl (74-100); Lipase 71 U/L (23-300)
[2025-01-06 11:40] VITALS: BP 120/69; PULSE 69; O2SAT 97
[2025-01-06 12:31] VITALS: BP 116/47; PULSE 58; O2SAT 95
[2025-01-06 13:00] VITALS: BP 120/66; PULSE 64; O2SAT 95
[2025-01-06 13:30] VITALS: BP 149/89; PULSE 62; O2SAT 97
[2025-01-06 14:06] VITALS: BP 166/86; PULSE 68; RESP 16; TEMP 36.7; O2SAT 99
== END 2025-01-06 14:10 | disposition home or self-care (01) ==
PROVIDERS: Emergency Provider Emergency Medicine; PCP Family Medicine
DX: M54.50 Low back pain, unspecified (principal); R10.30 Lower abdominal pain, unspecified; R50.9 Fever, unspecified; I25.10 Atherosclerotic heart disease of native coronary artery without angina pectoris; J44.9 Chronic obstructive pulmonary disease, unspecified; M06.9 Rheumatoid arthritis, unspecified; I10 Essential (primary) hypertension; E78.5 Hyperlipidemia, unspecified
CPT/HCPCS: 74176; 80053; 81001; 83690; 85025; 87086; 96374; 99284; J1885

== ENCOUNTER 2025-01-20 10:18 | Outpatient (CLI) | payer MEDICARE, MEDICAID, SELFPAY | END 2025-01-20 23:59 | disposition home or self-care (01) | LOC: LAB.DROPOF 01-21 15:08 | PROVIDERS: PCP Family Medicine; Visit Provider Family Medicine | DX: R39.9 Unspecified symptoms and signs involving the genitourinary system (principal) | CPT/HCPCS: 87210 ==

== ENCOUNTER 2025-02-10 09:30 | Outpatient (CLI) | payer MEDICARE, MEDICAID, SELFPAY ==
[2025-02-10 18:43] LABS: Hemoglobin A1C 5.9 % (4.0-6.0)
[2025-02-10 19:16] LABS: Thyroid Stimulating Hormone 3.15 uIU/mL (0.465-4.68)
== END 2025-02-10 23:59 | disposition home or self-care (01) ==
LOC: LAB.DROPOF 02-11 12:26
PROVIDERS: PCP Family Medicine; Visit Provider Family Medicine
DX: E03.9 Hypothyroidism, unspecified (principal); E11.9 Type 2 diabetes mellitus without complications
CPT/HCPCS: 83036; 84443

== ENCOUNTER 2025-04-24 18:19 | Inpatient (IN) | payer MEDICARE, MEDICAID, SELFPAY ==
[2025-04-24] VITALS (12 sets, daily range): BP systolic 131–164; BP diastolic 58–88; PULSE 118–129; RESP 17–29; TEMP 37.7–37.8; O2SAT 90–96; BMI 39.2
--- OUTSIDE RECORDS SUMMARY | 2025-04-24 18:36 | XMS_ITS | Clinical Summary ---
Author Organization [facility] Address [address] [facility] [address] [place] [address] Phone Care Team Providers Care Moto Mix Operator Name Role Phone Unavailable Unavailable Conditions or Problems No information available. Medications No information available. Medications Administered No information available. Allergies, Adverse Reactions, Alerts No information available. Results No information available. Plan of Care No information available. Procedures No information available. Vital Signs No information available. Immunizations No information available. Advance Directives No information available.
--- OUTSIDE RECORDS SUMMARY | 2025-04-24 18:37 | XMS_ITS | Encounter Summary ---
Author Organization Healthcare Address [address] [place] [address] Care Team Providers Care Rn Imaging Name Role Phone Reza Panchal MD Primary Care Provider +1- [phone] Encounter Details Date Type Department Care Team (Late st Contact Info) Description 08/17/2024 Ophth Exam [facility] [address] [place] [phone] Tian Ramírez MD [address] [place] [id number] Social History Tobacco Use Types Packs/Day Years Used Date Smoking Tobacco: Never Assessed Comments Unknown Sex and Gender Information Value Date Recorded Sex Assigned at Female 08/17/2024 1:32 AM EDT Legal Sex Female 7:50 PM EDT Gender Identity Not on file Sexual Orientation Not on file documented as of this encounter Functional Status * Calculated C-SSRS Risk Score (Lifetime/Recent) Answer Date of Assessment Author No Risk Indicated 08/17/2024 12:47 AM EDT Benita Gutierrez RN * Question Answer Date of Assessment Author 1. Wish to be (Past 1 Month) No 08/17/2024 12:47 AM EDT Benita Gutierrez RN 2. Non-Specific Active Suici mack Thoughts (Past 1 Month) No 08/17/2024 12:47 AM EDT Nithin Gutierrez RN 6. Suicidal Behavior (Lifetime) No 12:47 AM EDT Clines, Benita C, RN documented as of this encounter Plan of Treatment Not on file documented as of this encounter Visit Diagnoses Not on filedocumented in this encounter Care Teams Rn Imaging Relationship Specialty Start Date End Date Reza Panchal MD [address] [place] [address] PCP - General 08/17/24 documented as of this encounter
--- OUTSIDE RECORDS SUMMARY | 2025-04-24 18:37 | XMS_ITS ---
Author Name Ephraim RN, AUTHOR AGENT, Leigh martinez Sarina Address [address] [address] Phone [phone] Organization [facility] Care Team Providers Care Safety Person Name Role Phone Ivonne Ye Unavailable [phone] Reason for Referral Not Available Allergies, adverse reactions, alerts Allergen Type Reaction Severity Status Onset Date Lortab Allergy to substance (disorder) Unknown Active N/A Oxycodone Allergy to substance (disorder) Unknown Active N/A MetFORMIN Allergy to substance (disorder) Unknown Active N/A Tylenol with Codeine #3 Allergy to subst ance (disorder) Unknown Active N/A History of medication use Medication Class Instructions Start Date End Date Potassium Chloride Anisha ER 1 0 MEQ Tab ER No Data Available 2024-01-03 No Data Available Gabapentin 100 mg Cap TAKE 1 CAPSULE BY MOUTH THREE TIMES DAILY 2024-05-27 No Data Available Pantoprazole Sodium 40 mg Ta b delayed rel TAKE 1 TABLET BY MOUTH TWICE DAILY 2024-07-01 No Data Available Amoxicillin-Pot Clavulanate 500/125 mg Tab TAKE 1 TABLET BY MOUTH TWICE DAILY FOR 7 DAYS 2024-07-05 No Data Available Fluconazole 100 mg Tab No Data Available 2024-07-05 No Data Available Alendronate Sodium 70 mg Tab No Data Available 2023-12 No Data Available OneTouch Ultra Test Strip No Data Available 2024-05-13 No Data Available Levothyroxine Sodium 75 MCG Tab TAKE 1 TABLET BY MOUTH ONCE DAILY FOR THYROID DISEASE 2024-05-10 No Data Available Memantine 10 mg Tab TAKE 1 TABLET BY JOE TH DAILY 2024-07-08 No Data Available Jardiance 10 mg Tab TAKE 1 TABLET BY JOE TH DAILY 2024-07-08 No Data Available Mirtazapine 15 mg Tab TAKE 1 TABLET BY M OUTH EVERY NIGHT AT BEDTIME 2024-03-08 No Data Available Meloxicam 15 mg Tab TAKE 1 TABLET BY JOE DAILY 2024-05-10 No Data Available Fluticasone Propionate 50 MCG/ACT Suspension No Data Available 2024-06-20 No Data Available Fluticasone-Salmeterol 250-5 0 MCG/ACT Aerosol Powder Breath Activated INHALE 1 PUFF BY MOUTH TWICE DAILY 2024-06-20 No Data Available Sucralfate 1 GM Tab TAKE 1 TABLET BY JOE FOUR TIMES DAILY 2024-04-08 No Data Available Azithromycin 250 mg Tab TAKE 2 TABLETS B Y MOUTH TODAY THEN 1 TABLET DAILY FOR 4 DAYS 2024-07-30 No Data Available predniSONE 50 mg Tab TAKE 1 TABLET BY [facility] ONCE DAILY IN AM WITH FOOD FOR 3 DAYS FOR COPD EXACERBATION 2024-07-30 No Data Available Montelukast Sodium 10 mg Tab TAKE 1 TABL ET BY MOUTH DAILY 2024-08-01 No Data Available oxyBUTYnin Chloride 5 mg Tab TAKE 1 TABL ET BY MOUTH TWICE DAILY 2024-08-06 2024-12-25 Chlorthalidone 25 mg Tab TAKE 1 TABLET B Y MOUTH DAILY 2024-08-07 No Data Available Erythromycin 5 mg/GM Oint No Data Available 2024-05-09 No Data Available Benzonatate 100 mg Cap No Data Available 2024-08-14 No Data Available Cefdinir 300 mg Cap TAKE 1 CAPSULE BY [facility] TWICE DAILY FOR 10 DAYS 2024-08-14 No Data Available guaiFENesin ER 600 mg Tab ER 12hr TAKE 2 TABLETS BY MOUTH TWICE DAILY NEEDED FOR COUGH 2024-08-14 No Data Available Albuterol Sulfate HFA 108 (9 0 Base) MCG/ACT Aerosol Solution INHALE 2 PUFFS BY MOUTH EVERY 4 HOURS NEEDED FOR WHEEZING OR SHORTNESS OF AIR 2023-08-18 No Data Available Valsartan 80 mg Tab TAKE 1 TABLET BY JOE DAILY 2024-08-22 No Data Available Triamcinolone Acetonide 0.02 5 % Crm APPLY THIN LAYER TOPICALLY TO THE AFFECTED AREA TWICE DAILY 2024-01-08 No Data Available Doxycycline Hyclate 100 mg Tab No Data Available 2024-09-16 No Data Available Atorvastatin Calcium 20 mg Tab TAKE 1 TABLET BY MOUTH EVERY NIGHT AT BEDTIME 2024-02-07 No Data Available Metoprolol Succinate ER 50 m g Tab ER 24hr TAKE 1 TABLET BY MOUTH EVERY 12 HOURS 2024-01-03 No Data Available Ygjdxocj-Qtlfsbilk-Ktpwscjg 3.5-21429-0.1 Suspension SHAKE LIQUID AND INSTILL 1 DROP IN BOTH EYES THREE TIMES DAILY EVERY 8 HOURS UNTIL NEXT APPOINTMENT 2024-10-01 No Data Available Azelastine 0.1 % Solution USE 1 SPRAY IN EACH NOSTRIL EVERY 6 HOURS NEEDED FOR ALLERGY SYMPTOMS 2024-10-03 No Data Available Prasugrel 10 mg Tab TAKE 1 TABLET BY JOE TH DAILY 2024-10-07 No Data Available MAGNESIUM 500MG TABLETS TAKE 1 TABLET BY MOUTH ONCE DAILY 2024-10-15 No Data Available Oseltamivir Phosphate 75 mg Cap TAKE 1 CAPSULE BY MOUTH TWICE DAILY FOR 5 DAYS 2024-11-23 No Data Available levoFLOXacin 750 mg Tab No Data Available 2024-12-19 No Data Available golimumab (SIMPONI ARIA) 170 mg in sodium chloride 0.9 % 100 mL infusion infusion every 8 weeks 2024-12-25 No Data Available Problem List Problem Status Onset Date Resolved Date Synopsis RA (rheumatoid arthritis) Active 2024-12-25 N/A N/A Hypothyroid Active 2024-12-25 N/A N/A HTN (hypertension) Active 2024-12-25 N/A N/A Neuropathy Active 2024-12-25 N/A N/A OA (osteoarthritis) Active 2024-12-25 N/A N/A Osteoporosis Active 2024-12-25 N/A N/A Shingles Active 2024-12-25 N/A N/A Infection of right eye Active 2024-12-25 N/A N/ A Encounters Encounters Type Facility Date of Service Diagnosis/Co mplaint [facility] [place] [place] 12/25/2024 Encntr for f/u exam aft trtm t for cond oth than malig neoplmSepsis, unspecified organism [facility] 7 Day Disch [place] 12/25/2024 Encntr for f/u exam aft trtm t for cond oth than malig neoplmSepsis, unspecified organism [facility] 7 Day Disch [place] 12/25/2024 Encntr for f/u exam aft trtm t for cond oth than malig neoplmSepsis, unspecified organism [facility] 7 Day Disch [place] 12/25/2024 Encntr for f/u exam aft trtm t for cond oth than malig neoplmSepsis, unspecified organism Telephone E/M Service; 5-10 min of Medical Discussion (Audio Only) [place], [place], 12/27/2024 Sepsis, unspecified organism Telephone E/M Service; 5-10 min of Medical Discussion (Audio Only) [place], 12/27/2024 Sepsis, unspecified organism Vital Signs Date of Collection Vitals 2024-12-25 14:07:15 BP Diastolic - 79.0 mm[Hg]BP Systolic - 143.0 mm[Hg]Heart Rate - 92.0 /min Social History Sex Female History of Procedures Procedures Service Procedure code Service date Servicing provider Phone# [facility] Day [facility]ch [id number] 2024-12-25 No Data Available No Data Avail able Medrec Completed within 30 Days of Discharge 1111 2024-12-25 No Data Available No Data Availa ble Systolic BP Greater Than or Equal to 140 MMHG (Not Controlled) 3077F 2024-12-25 No Data Available No Data Available Diastolic BP Less Than 80 MMHG (Controlled) 3078F 2024-12-25 No Data Available No Data Availa ble Telephone E/M Service; 5-10 min of Medical Discussion (Audio Only) [id number] 2024-12-27 No Data Available No Data Availa ble Medrec Completed within 30 Days of Discharge 1110 2024-12-27 No Data Available No Data Availa ble Functional Status No Information Mental Status No Information Assessments Date of Service Assessments 2024-12-25 14:07:15 SEPSIS, UNSPECIFIED ORGANISMURGENT CARE ESCALATION 2024-12-27 13:13:35 Sepsis, unspecified organism Plan of Care Date of Service Plans 2024-12-25 14:07:15 PCP appt 12/30Uses wa lker at home for ambulation, getting around the house wellLana Erica is POA/nut processing supervisor - she comes over and cooks meals, cleans the house, brings her to appts and the grocery store because pt gets out of breath with too much walkingPD will be a phone visit (Cannot be the following states: [place], [place], [place], [place], [place], [place], [place], [place], [place])Pt Agreed to a post discharge visit with a [facility] Provider: with Ivelisse Reed Friday, December 27, 2024 4:00pm ESTRN reinforced availability of UC provider 24/ for 30 days after discharge and encouraged CB w/ any concerns or if pt is worse in any way. Advised pt to call to reach our staff.Needs/concerns for [facility] provider to address during PD visit: 1) any current symptoms - f/u on UC concern of diarrheaMedication adherence/ refill concerns: none identifiedCase posted in urgent care channel 2024-12-27 13:13:35 Pt will f/u with PCP on 12/30/24Pt to see PCP on 12/30/24 Goals Date Goal 2024-12-25 JACKELYN reviewed with radha suresh with above diagnosis. This is a RN JACKELYN encounter; no treatment was rendered to the patient by the provider. This encounter has been reviewed by the provider signing this note. 2024-12-25 [facility] is not the c urrent prescriber for the medications reviewed today. Patient is aware to review their full medication list with their prescriber(s) for possible medication interactions. 2024-12-27 Provider recommendat ions and precautions reviewed with patient/caregiver. They have been advised to call the urgent care number provided for any concerning symptoms or signs that arise prior to 01/18/25 Patient/caregiver expressed understanding and agreement with the plan. Health Concerns Date Concern 2024-12-27 Visit modality: Phon ePatient location: HomeVisit duration: 5 minutesTime spent pre/post visit: 1 minuteThis visit was provided through telemedicine using HIPAA compliant secure two-way interactive phone connection.The patient is being seen for a virtual visit s/p inpatient admission. Patient provided verbal consent for treatment and for this visit to be conducted via telemedicine. 2024-12-27 Pertinent notes from discharge summary:Discharge summary n/a for review 2024-12-27 [facility]: [facility] Date: 12/19/24Discharge diagnosis: Sepsis, unspecified organism 2024-12-27 RN visit dated was reviewed prior to encounter. The medication reconciliation performed during that call was verified today. 2024-12-27 Patient needs/concer ns noted during RN encounter and pre-visit chart reviewed 2024-12-27 Patient needs/concer ns discussed during provider visit: None 2024-12-27 Pt is feeling well t rocky and abdominal pain and diarrhea have resolved. She denies any c/o today. She does not need any med refills. Her granddaughter, who is her POA, helps her with meds.
--- OUTSIDE RECORDS SUMMARY | 2025-04-24 18:37 | XMS_ITS | Clinical Summary ---
Author Organization Healthcare Address [address] [place] [address] Care Team Providers Care Fire Technology Instructor Name Role Phone Reza Panchal MD Primary Care Provider +1- [phone] Allergies Active Allergy Reactions Criticality Noted Date Comments Acetaminophen-Codeine Nausea And Vomiting Low 05/20/2016 Aripiprazole Dizziness,Other - please document in the comment field Medium 05/18/2021 Sleepy and staggering. Codeine Nausea And Vomiting Low 05/20/2016 Derivatives Donepezil Other - please document in the comment field Low 08/29/2022 Bad dreams Hydrocodone-Acetaminop hen Other - please document in the comment field Low 07/24/2023 Isosorbide Nitrate Nausea And Vomiting Low 10/12/2016 headaches Metformin Other - please document in the comment field Low 07/02/2020 Pt refused after reading about carcinogen contamination Immunizations Immunization Administration Dates Next Due PPD Skin Test (TB Skin Test) 06/25/2001 Social History Tobacco Use Types Packs/Day Years Used Date Smoking Tobacco: Never Assessed Comments Unknown Sex and Gender Information Value Date Recorded Sex Assigned at Female 08/17/2024 1:32 AM EDT Legal Sex Female 7:50 PM EDT Gender Identity Not on file Sexual Orientation Not on file Last Filed Vital Signs Vital Sign Reading Time Taken Comments Blood Pressure 144/80 08/17/2024 3:55 AM EDT Pulse 94 08/17/2024 3:55 AM EDT Temperature 36.6 C (97.9 F) 08/17/2024 3:55 AM EDT Respiratory Rate 18 08/17/2024 3:55 AM EDT Oxygen Saturation 94% 08/17/2024 3:55 AM EDT Inhaled Oxygen Concentration - - Weight 91.2 kg (201 lb 1 oz) 08/17/2024 1:25 AM EDT Height - - Body Mass Index - - Plan of Treatment Not on file Insurance [employer] MEDICARE MEDICAID-[place] Care Teams Fire Technology Instructor Relationship Specialty Start Date End Date Reza Panchal MD [address] [place] [address] PCP - General 08/17/24
--- NOTE | 2025-04-24 18:48 | CT_ITS ---
PROCEDURE INFORMATION: Exam: CT Abdomen And Pelvis With Contrast Exam date and time: 04/24/2025 7:54 PM Age: 69 years old Clinical indication: Abdominal pain; Additional info: Epigastric and suprapubic tenderness TECHNIQUE: Imaging protocol: Computed tomography of the abdomen and pelvis with contrast. Radiation optimization: All CT scans at this facility use at least one of these dose optimization techniques: automated exposure control; mA and/or kV adjustment per patient size (includes targeted exams where dose is matched to clinical indication); or iterative reconstruction. Contrast material: ISOVUE; Contrast volume: 75 ml; Contrast route: IV; COMPARISON: CT ABDOMEN PELVIS WO CON 01/06/2025 11:58 AM FINDINGS: Lungs: Interstitial prominence and possible subtle Anderson B-lines in visualized chest. Diaphragm: Small hiatal hernia. Liver: Fatty infiltration. Measures 18 cm. No mass. Gallbladder and biliary ducts: Surgically absent gallbladder. No biliary ductal dilatation. Pancreas: Unremarkable. No ductal dilation. Spleen: Unremarkable. No splenomegaly. Adrenal glands: Unremarkable. No mass. Kidneys and ureters: No nephroureterolithiasis or hydroureter. Stomach and bowel: Sigmoid colonic diverticula without pericolonic fat stranding. Nonobstructive fluid-filled small bowel loops. Appendix: No evidence of appendicitis. Intraperitoneal space: Unremarkable. No free air. No significant fluid collection. Vasculature: Atherosclerotic calcification of aortoiliac and mesenteric arteries without aneurysm. Lymph nodes: Unremarkable. No enlarged lymph nodes. Urinary bladder: Unremarkable as visualized. Reproductive: Unremarkable as visualized. Bones/joints: Unremarkable. No acute fracture. Soft tissues: Unremarkable. IMPRESSION: 1. Nonobstructive fluid-filled small bowel loops. Correlate for low-grade enteritis symptoms. 2. Sigmoid colonic diverticulosis. 3. Mild hepatomegaly with fatty infiltration.
--- NOTE | 2025-04-24 18:55 | HMH.EDGENADL ---
Discharge Plan Disposition Chief Complaint: Urogenital-Female Prescriptions Prescriptions: No Action pantoprazole 40 mg tablet,delayed release (DR/EC) 40 mg PO DAILY Patient Comments: TAKE 1 TABLET BY MOUTH TWICE DAILY amlodipine 2.5 mg tablet 2.5 mg PO DAILY PRN nitroglycerin 0.4 mg tablet, sublingual 0.4 mg sublingual Q5-15M PRN Rx Instructions: do not exceed 3 doses per episode hydroxyzine HCl 10 mg tablet 10 mg PO HS PRN cholecalciferol (vitamin D3) 125 mcg (5,000 unit) capsule 125 mcg PO DAILY mecobalamin (vitamin B12) 500 mcg tablet,chewable 500 mcg PO DAILY gabapentin 300 mg capsule 300 mg PO TID Qty: 90 3RF fluticasone propion-salmeterol 100-50 mcg/dose blister with device inhalation Patient Comments: INHALE 1 PUFF BY MOUTH TWICE DAILY azithromycin [Zithromax Z-Bird] 250 mg tablet 250 mg PO QDAY Qty: 6 0RF Rx Instructions: Take 2 pills the first day and then one tablet per day mirtazapine 15 mg tablet 15 mg PO HS Qty: 30 2RF meloxicam 15 mg tablet 15 mg PO DAILY Qty: 30 2RF atorvastatin 20 mg tablet 20 mg PO HS Qty: 30 1RF metoprolol succinate 50 mg tablet extended release 24 hr 50 mg PO Q12H Qty: 60 2RF levothyroxine 75 mcg tablet 75 mcg PO DAILY Qty: 90 0RF sucralfate 1 gram tablet 1 g PO QID 30 Days Qty: 120 1RF potassium chloride 10 mEq tablet,ER particles/crystals 10 meq PO DAILY Qty: 90 0RF memantine 10 mg tablet 10 mg PO DAILY Qty: 90 0RF chlorthalidone 25 mg tablet 25 mg PO DAILY PRN (Reason: edema) Qty: 30 2RF Jardiance 10 mg tablet 10 mg PO DAILY Qty: 90 0RF alendronate 70 mg tablet 70 mg PO WEEKLY Patient Comments: TAKE 1 TABLET BY MOUTH EVERY 7 DAYS fluticasone propionate 50 mcg/actuation spray,suspension 2 spray INTRANASAL DAILY magnesium oxide 500 mg magnesium tablet 500 mg PO DAILY Rx Instructions: TAKE 1 TABLET BY MOUTH ONCE DAILY aspirin 81 mg tablet,delayed release (DR/EC) 81 mg PO DAILY Patient Comments: TAKE 1 TABLET BY MOUTH DAILY montelukast 10 mg tablet 10 mg PO HS albuterol sulfate 90 mcg/actuation HFA aerosol inhaler 2 inh INHALATION Q4HP PRN (Reason: WHEEZING/SOA) Patient Comments: INHALE 2 PUFFS BY MOUTH EVERY 4 HOURS NEEDED FOR WHEEZING OR SHORTNESS OF AIR methocarbamol 750 mg tablet 750 mg PO Q8H PRN (Reason: pain) Qty: 20 0RF prasugrel HCl [Effient] 10 mg Tablet 10 mg PO DAILY 30 Days Qty: 30 6RF Referrals Follow up/Referrals: Reza Panchal MD [Primary Care Provider, Family Practice] - See instructions Instructions Patient Instructions: DI for Urinary Tract Infection (UTI), DI for Urinary Tract Infection in Children Print Language Print Language: E[place] Discharge ED Provider: Anderson Jaimes General Adult HPI General Chief complaint: Urogenital-Female Stated complaint: fever,chills,abdominal pain Time Seen by Provider: 04/24/25 18:40 Mode of Arrival: Ambulatory Source of Information: Patient and Relative Description of Symptoms (Recalled from ER Triage Doc. by RN): PT presents to the ED for evaluation of a achy and freezing feeling throughout her body. Stated she has had Kidney issues with my pee stinking really bad . PT stated she was admitted in December 2024 for Urosepsis. History of Present Illness HPI narrative: Hubert Castellanos is a 69y female with a past medical history of diabetes mellitus, neurogenic bladder status post bladder stimulator, hypertension, COPD, hyperlipidemia who presents to the emergency department for subjective fevers and chills, abdominal pain and foul-smelling urine. Patient states over the last 2 to 3 weeks, her urine has smelled malodorous. She states that today, she has broke out into cold sweats at home and developed worsening abdominal pain. Patient notes that she has had multiple urinary tract infections in the past and has been admitted for sepsis secondary to her urinary tract infection. She states that this feels similar to that time. She reports chronic back pain. Related Data Home Medications ?Medication ?Instructions ?Recorded ?Confirmed alendronate 70 mg tablet 70 mg PO WEEKLY 09/16/24 03/08/25 fluticasone propionate 50 2 spray intranasal DAILY 09/16/24 03/08/25 mcg/actuation nasal spray,suspension pantoprazole 40 mg tablet,delayed 40 mg PO DAILY 10/03/24 03/08/25 release magnesium oxide 500 mg PO DAILY 12/16/24 03/08/25 albuterol sulfate 90 mcg/actuation 2 inh inhalation Q4HP PRN 12/17/24 03/08/25 aerosol inhaler WHEEZING/SOA aspirin 81 mg tablet,delayed 81 mg PO DAILY 12/17/24 03/08/25 release montelukast 10 mg tablet 10 mg PO HS 12/17/24 03/08/25 amlodipine 2.5 mg tablet 2.5 mg PO DAILY PRN 01/13/25 03/08/25 cholecalciferol (vitamin D3) 125 125 mcg PO DAILY 01/13/25 03/08/25 mcg (5,000 unit) capsule hydroxyzine HCl 10 mg tablet 10 mg PO HS PRN 01/13/25 03/08/25 mecobalamin (vitamin B12) 500 mcg 500 mcg PO DAILY 01/13/25 03/08/25 chewable tablet nitroglycerin 0.4 mg sublingual 0.4 mg sublingual Q5-15M PRN 01/13/25 03/08/25 tablet fluticasone 100 mcg-salmeterol 50 inhalation 01/20/25 03/08/25 mcg/dose blistr powdr for inhalation Previous Rx's ?Medication ?Instructions ?Recorded prasugrel HCl 10 mg tablet 10 mg PO DAILY 30 days #30 tabs 10/07/24 (Effient) methocarbamol 750 mg tablet 750 mg PO Q8H PRN pain #20 tabs 01/06/25 gabapentin 300 mg capsule 300 mg PO TID #90 caps 02/10/25 meloxicam 15 mg tablet 15 mg PO DAILY #30 tabs 02/14/25 mirtazapine 15 mg tablet 15 mg PO HS #30 tabs 02/14/25 atorvastatin 20 mg tablet 20 mg PO HS #30 tabs 02/24/25 metoprolol succinate 50 mg 50 mg PO Q12H #60 tabs 02/24/25 tablet,extended release 24 hr levothyroxine 75 mcg tablet 75 mcg PO DAILY #90 tabs 02/28/25 sucralfate 1 gram tablet 1 g PO QID 30 days #120 tabs 02/28/25 potassium chloride 10 mEq 10 meq PO DAILY #90 tabs 03/03/25 tablet,extended release(part/cryst) memantine 10 mg tablet 10 mg PO DAILY #90 tabs 03/07/25 azithromycin 250 mg tablet 250 mg PO QDAY #6 tabs 03/08/25 (Zithromax Z-Bird) chlorthalidone 25 mg tablet 25 mg PO DAILY PRN edema #30 tabs 03/26/25 empagliflozin 10 mg tablet 10 mg PO DAILY #90 tabs 04/11/25 (Jardiance) Allergies Allergy/AdvReac Type Severity Reaction Status Date / Time hydrocodone Allergy Mild Unknown Verified 03/08/25 11:55 allergy reaction acetaminophen (From Allergy Unknown Verified 03/08/25 11:55 Tylenol-Codeine #3) allergy reaction metformin Allergy Unknown Verified 03/08/25 11:55 allergy reaction codeine AdvReac Mild Unknown Verified 03/08/25 11:55 allergy reaction PFSH PFS Disclaimer: The information contained in this section may have been updated after the patient was seen, as this information can be updated by other users. 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 Vaginal irritation Dysuria Stress incontinence Urge incontinence Overactive bladder Allergic rhinitis Coronary artery calcification seen on CAT scan Chest pain Fatigue History of DVT of lower extremity History of sleep apnea Bronchitis, mucopurulent recurrent Dyspnea on exertion Bronchiectasis Asthma Edema Hyperlipidemia associated with type 2 diabetes mellitus Urinary incontinence Onychomycosis Diabetic neuropathy Breast cancer screening by mammogram Dementia Diabetes mellitus Bronchitis COPD (chronic obstructive pulmonary disease) Colonoscopy planned Gallbladder anomaly Rheumatoid arthritis Osteoporosis Back pain Acid reflux disease Carpal tunnel syndrome Anxiety Hypothyroidism Sleep apnea High blood pressure Arthritis Varicose veins of ankle Depression Acute asthma Surgical History History of cataract surgery History of esophagogastroduodenoscopy (EGD) H/O right heart catheterization History of cholecystectomy H/O tubal ligation History of hernia repair Total knee replacement status Social History Smoking Status: Never smoker alcohol intake: never substance use type: denies use current occupational status: unemployed Travel in the last 8 weeks?: None Have you lived/traveled outside [place] in past 30 days?: No Contact w/someone who lives/traveled outside [place] past 30 days?: No Exposure to someone with infectious disease in past 14 days?: No Do you have a fever (greater than 100.4 F or 38 C)?: No Have you tested positive for COVID-19?: No Exposed to someone with COVID-19 in past 14 days?: No Do you have a sore throat?: No Do you have a cough?: No Do you have any weakness?: No Do you have any diarrhea?: No Are you experiencing any unusual bleeding?: No Do you have any muscle aches/pain?: No Do you have any abdominal pain?: Yes Are you experiencing loss of taste or smell?: No Other 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 Have you received the Flu Vaccine for this season: No Have you received the Pneumonia Vaccine: Yes ROS Obtained: Yes Systems reviewed as appropriate & no additional complaints except as documented Physical Exam General General appearance: alert and in no apparent distress Comment: ill but nontoxic appearing Head Head exam: atraumatic Eye Eye exam: Present normal appearance ENT ENT exam: Present normal external ear exam Neck Neck exam: Present full ROM Chest Chest inspection: Present symmetric chest wall rise Respiratory Respiratory exam: Present normal lung sounds bilaterally; Absent respiratory distress Cardiovascular Cardiovascular exam: Present normal rhythm and tachycardia Abdominal Exam Abdominal exam: Present soft and tenderness (suprapubic and epigastric); Absent guarding Extremities Exam Extremities exam: Present normal inspection Back Exam Back exam: Present normal inspection Neurological Exam Neurological exam: Present alert and oriented X3 Psychiatric Psychiatric exam: Present normal affect Skin Skin exam: Present warm and dry Medical Decision Making Medical Records Screening: Per USPSTF and CDC recommendations, given the prevalence of disease in our region, it is our hospital?s policy to screen for HIV and viral Hepatitis for all patients aged 18 and over and those with ongoing risk factors. Andre Inquiry Pt receiving controlled substance: No Vital Signs: 04/24/25 18:43 04/24/25 19:00 04/24/25 19:15 Temperature 100.0 F H Temperature Source Oral Pulse Rate 124 H 121 H Pulse Rate [Right] 129 H Respiratory Rate 18 24 Blood Pressure 142/82 H 164/88 H Blood Pressure [Right Arm] 151/81 H Blood Pressure Mean [Right Arm] 104 02 Sat by Pulse Oximetry 91 L 92 L 93 L Oxygen Delivery Method Room Air Room Air Room Air 04/24/25 19:26 04/24/25 19:30 Temperature Temperature Source Pulse Rate 126 H 122 H Pulse Rate [Right] Respiratory Rate 29 H 17 Blood Pressure 131/61 137/58 L Blood Pressure [Right Arm] Blood Pressure Mean [Right Arm] 02 Sat by Pulse Oximetry 90 L 91 L Oxygen Delivery Method Room Air Room Air Lab Data Lab Results 04/24/25 18:57: WBC 10.9 H, RBC 4.76, Hgb 14.0, Hct 43.0, MCV 90.3, MCH 29.4, MCHC 32.6, RDW 13.7, Plt Count 179, MPV 10.3, Neut % (Auto) 64.2, Lymph % (Auto) 19.7, [place] % (Auto) 14.9 H, Eos % (Auto) 0.5, Baso % (Auto) 0.3, Neut # (Auto) 7.0, Lymph # (Auto) 2.2, [place] # (Auto) 1.6 H, Eos # (Auto) 0.1, Baso # (Auto) 0.0, PT 11.1, INR 1.00, APTT 26.7, VBG pH 7.48 H, VBG pCO2 34.2 L, VBG pO2 40.1 H, VBG HCO3 25.1, VBG Total CO2 26.1, VBG O2 Saturation 81.9 H, VBG Base Excess 1.6, VBG Lactic Acid 2.1 H, Sodium 137, Potassium 4.3, Chloride 98, Carbon Dioxide 28, Anion Gap 15.3 H, BUN 19 H, Creatinine 0.90, Estimated Creat Clear 79, Estimated GFR 62, Est GFR ( Amer) 76, Glucose 113 H, Calcium 9.4, Magnesium 1.6, Total Bilirubin 0.9, AST 66 H, ALT 63, Alkaline Phosphatase 137 H, C-Reactive Protein 71.3 H, Total Protein 8.9 H, Albumin 4.7, Globulin 4.2 H, Albumin/Globulin Ratio 1.1, Lipase 66, Procalcitonin 1.11 04/24/25 : Urine Color Yellow, Urine Appearance Clear, Urine pH 8.0, Ur Specific [place] 1.015, Urine Protein Negative, Urine Glucose (UA) 3+, Urine Ketones Negative, Urine Blood Trace-i, Urine Nitrate Positive A, Urine Bilirubin Negative, Urine Urobilinogen 0.2, Ur Leukocyte Esterase Negative, Urine WBC 50-100, Ur Squamous Epith Cells 3-5, Urine Bacteria 4+ 04/24/25 18:57 04/24/25 18:57 Orders (Tests/Meds): ED MEDICATIONS Generic Name Dose Route Start Last Admin Trade Name Ivonne PRN Reason Stop Dose Admin Lactated Ringer's 2,740 mls @ 1,370 mls/hr 04/24/25 18:48 04/24/25 19:09 Lactated Ringer's 1000 Ml Bag 30 ml/kg infuse over 2 hr (2740 ml) 04/24/25 20:47 1,370 mls/hr IV Administration .Q2H ONE Protocol Levofloxacin/Dextrose 750 mg in 150 mls @ 100 mls/hr 04/24/25 18:48 04/24/25 19:29 Levofloxacin 750mg/150ml Premix IV 04/24/25 20:17 100 mls/hr ONCE ONE Administration ORDERS Category Date Time Status CT abdomen pelvis w con Stat Cat Scan 04/24/25 18:48 Ordered Activated Partial Thrombo Time Stat Lab 04/24/25 18:57 Completed CBC w/Auto Diff [Complete Blood Count Auto Diff] Stat Lab 04/24/25 18:57 Results CMP [Comprehensive Metabolic Panel] Stat Lab 04/24/25 18:57 Completed CRP [C-Reactive Protein] Stat Lab 04/24/25 18:57 Completed Lipase Stat Lab 04/24/25 18:57 Completed Magnesium Stat Lab 04/24/25 18:57 Completed Procalcitonin Stat Lab 04/24/25 18:57 Completed Prothrombin Time INR Stat Lab 04/24/25 18:57 Completed Urinalysis and Microscopic Stat Lab 04/24/25 Completed Blood Culture Stat Micro 04/24/25 19:23 Received Urine Culture Stat Micro 04/24/25 Received VBG [Venous Blood Gas] Stat RT 04/24/25 18:57 Completed EKG Request [ECG Request] Stat Y 04/24/25 19:22 Ordered ECG Data Tracing #1: I reviewed this ECG and interpreted as documented below: Sinus tachycardia with a ventricular rate of [address] elevation or depression. QTc normal at 410 Medical Decision Narrative: Hubert Castellanos is a 69y female with a past medical history of diabetes mellitus, neurogenic bladder status post bladder stimulator, hypertension, COPD, hyperlipidemia who presents to the emergency department for subjective fevers and chills, abdominal pain and foul-smelling urine. Patient states over the last 2 to 3 weeks, her urine has smelled malodorous. She states that today, she has broke out into cold sweats at home and developed worsening abdominal pain. Patient notes that she has had multiple urinary tract infections in the past and has been admitted for sepsis secondary to her urinary tract infection. She states that this feels similar to that time. She reports chronic back pain. On arrival, patient is mildly hypertensive with blood pressure 151/81, tachycardic with heart rate of 129 bpm. Febrile with temperature of 100 ?F. Oxygen saturation 91% on room air. Physical exam, as stated above, revealed an ill but nontoxic appearing female in no acute respiratory distress. She is alert and communicating appropriately. Abdomen with tenderness in the epigastric and suprapubic regions without guarding or peritonitis. Cardiopulmonary exam reveals tachycardia but otherwise unremarkable. Differential diagnosis includes, but is not limited to: Sepsis secondary to urinary tract infection, pyelonephritis, acute pancreatitis, metabolic derangement, electrolyte derangement, cardiac arrhythmia, among others. The most morbid conditions were considered and workup was based on these. Workup in the emergency department included: Sepsis bolus lactated ringer fluids, EKG, PT/INR, procalcitonin, magnesium level, CMP, PTT, lipase, CRP, CBC, VBG with lactic acid, n.p.o., blood culture x 2, CT abdomen pelvis with IV contrast, UA and urine culture. Due to concern for sepsis secondary to urinary source given patient's symptoms and previous presentations similar to this 1, will administer antibiotics. Based on previous documentation, patient had Klebsiella UTI was treated and susceptible to levofloxacin. Will give 750 mg IV levofloxacin at this time. Laboratory workup shows mild leukocytosis of 10.9. Coagulation studies unremarkable. Lactate mildly elevated at 2.1. pH mildly elevated at 7.48, pCO2 mildly low at 34.2. CMP showed mildly elevated anion gap of 15.3. Electrolytes within normal limits. BUN mildly elevated 19 but creatinine normal at 0.9. Glucose normal at 113. Mildly elevated AST of 66 but liver enzymes otherwise unremarkable. Lipase normal at 66. Urinalysis demonstrated nitrate positive, 50-100 white blood cells, 4+ bacteria. This is consistent with a urinary tract infection. CT abdomen pelvis with IV contrast showed Critical Care Critical Care Time Critical Care Time: No
[2025-04-24 19:04] LABS: Microscopic, Urine URINE MICROSCOPIC (MICROSCOPIC)
[2025-04-24 19:06] LABS: Hematocrit 43.0 % (37.0-47.0); Hemoglobin 14.0 g/dL (12.2-16.2); Immature Granulocytes % 0.4 %; Mean Corpuscular HGB Conc 32.6 g/dL (31.8-35.4); Mean Corpuscular Hemoglobin 29.4 pg (27.0-31.2); Mean Corpuscular Volume 90.3 fl (81-99); Nucleated Red Blood Cells % 0 %; Platelet Count 179 K/mm3 (142-424); Red Blood Count 4.76 M/mm3 (4.20-5.40); Red Cell Distribution Width-SD 45.7 fL; White Blood Count 10.9 K/mm3 (4.8-10.8)
[2025-04-24 19:07] LABS: Bilirubin,Urine Negative (Negative); Color,Urine YELLOW (Yellow); Glucose,Urine (UA) 3+ (Negative); Ketones,Urine Negative (Negative); Leukocyte Esterase,Urine Negative (Negative); PH,Urine 8.0 (5.0-8.5); Protein,Urine Negative (Negative); Specific Gravity, Urine 1.015 (1.005-1.030); Urobilinogen,Urine 0.2 EU/dl (0.2)
[2025-04-24 19:08] LABS: VBG HCO3 25.1 mmol/L (23-30); VBG PCO2 34.2 mmol/L (35-51); VBG PH 7.48 mmol/L (7.31-7.41); VBG PO2 40.1 mmol/L (28-40)
[2025-04-24] MEDS: LACTATED RINGERS 1370 ML IV (19:09)
[2025-04-24 19:13] LABS: Lactate Venous 2.1 mmol/L (0.4-2.0)
[2025-04-24 19:18] LABS: Activated Partial Thrombo Time 26.7 seconds (22.8-30.6); INR 1.00 (0.9-1.1); Prothrombin Time 11.1 seconds (10.1-12.5)
[2025-04-24 19:19] LABS: Lipase 66 U/L (23-300)
[2025-04-24 19:20] LABS: Alanine Aminotransferase 63 U/L (12-78); Albumin Level 4.7 g/dl (3.5-5.0); Albumin/Globulin Ratio 1.1 (1.1-1.8); Alkaline Phosphatase 137 U/L (38-126); Anion Gap 15.3 mEq/L (5-15); Aspartate Amino Transferase 66 U/L (14-36); Bilirubin,Total 0.9 mg/dl (0.2-1.3); Blood Urea Nitrogen 19 mg/dl (7-17); Calcium 9.4 mg/dl (8.4-10.2); Carbon Dioxide 28 mmol/L (22.0-30.0); Chloride 98 mmol/L (98-107); Creatinine Clearance Estimated 79 mL/min (50-200); Creatinine,Serum 0.90 mg/dl (0.52-1.04); Estimated Glomerular Filt Rate 62 ml/min (>60); GFR (African American) 76 ML/MIN (>60); Globulin 4.2 g/dL (1.3-3.2); Glucose 113 mg/dl (74-100); Magnesium 1.6 mg/dl (1.6-2.3); Potassium 4.3 mmoL/L (3.5-5.1); Sodium 137 mmol/L (136-145); Total Protein,Serum 8.9 g/dl (6.3-8.2)
[2025-04-24 19:22] LABS: Bacteria,Urine 4+ /lpf; WBC,Urine 50-100 #/hpf (0-3)
[2025-04-24] MEDS: LEVOFLOXACIN/D5W 750 MG/150 ML 750 MG/150 ML PIGGYBACK 100 MG IV (19:29)
[2025-04-24 19:36] LABS: Procalcitonin 1.11 ng/mL (0.0-2.0)
[2025-04-24 19:42] LABS: C-Reactive Protein 71.3 mg/L (0-4)
--- NOTE | 2025-04-24 19:42 | ECG_ITS ---
APPROVED REPORT Exam: Resting ECG HR:125 bpm ECG Measurements Heart Rate 125 AXES IA 146 P 66 QRSd 89 QRS -8 QT 336 T 36 QTc 410 Conclusion SINUS TACHYCARDIA LOW QRS VOLTAGE IN PRECORDIAL LEADS [QRS DEFLECTION < 1.0 mV IN CHEST LEADS] ABNORMAL RHYTHM ECG UNCONFIRMED REPORT Sinus tachycardia with a ventricular rate of [address] elevation or depression. QTc normal at 410 Electronically signed by : BRADLEY RICHARDS, 04/24/2025 23:32:23
[2025-04-24 19:47] LABS: Anisocytosis 1+; Macrocytosis 1+; Microcytosis 1+; Total Cells Counted 100
[2025-04-24 19:48] LABS: Poikilocytosis 1+; Polychromasia 1+; Tear Drop Cells 1+
[2025-04-24] MEDS: IOPAMIDOL-370 (76%);100ML BOTTLE 75 ML IV (19:54)
[2025-04-24] MEDS: SODIUM CHLORIDE 0.9% 10ML SYR (RAD ONLY) 10 ML IV (19:54)
--- NOTE | 2025-04-24 20:47 | PC.NURSE ---
Report called to SRAVANI Munoz.
[2025-04-24] MEDS: TRAMADOL 50MG TABLET 50 MG PO (21:52)
--- NOTE | 2025-04-24 22:06 | P.HP_ITS ---
<Statement entered by Ricky Watts MD - 04/28/25 16:18> Personally evaluated patient and agree with plan of care as outlined by the RELATIONSHIP SPECIALIST. History of Present Illness *Admission Date: 04/24/25 *Reason for visit:: Abdominal pain *History of present illness: Ms. Castellanos is a 69-year-old female presents ER with complaints of abdominal pain. Patient's past medical history of diabetes mellitus, hypertension, asthma, sleep apnea, hypothyroidism, anxiety, acid reflux disease, COPD, dementia, hyperlipidemia and overactive bladder. Patient reports 2 to 3- week history of foul-smelling urine. She denies hematuria, frequency, urgency, or dysuria. She states this afternoon she started having abdominal pain, nausea, arthralgias fever, and chills. She states her temperature was 101. She also reports dizziness, lightheadedness, headache and diarrhea. She reports 3 loose bowel movements daily in the last 2 to 3 weeks. She reports that her headache is a 10 out of 10. She states it feels like one of her migraine headaches. Patient denies cough, congestion, runny nose, dyspnea, chest pain, nausea, vomiting, constipation, or syncope. Patient states she uses supplemental oxyge as needed at home. [facility] Disclaimer: The information contained in this section may have been updated after the patient was seen, as this information can be updated by other users. 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 Vaginal irritation Dysuria Stress incontinence Urge incontinence Overactive bladder Allergic rhinitis Coronary artery calcification seen on CAT scan Chest pain Fatigue History of DVT of lower extremity History of sleep apnea Bronchitis, mucopurulent recurrent Dyspnea on exertion Bronchiectasis Asthma Edema Hyperlipidemia associated with type 2 diabetes mellitus Urinary incontinence Onychomycosis Diabetic neuropathy Breast cancer screening by mammogram Dementia Diabetes mellitus Bronchitis COPD (chronic obstructive pulmonary disease) Colonoscopy planned Gallbladder anomaly Rheumatoid arthritis Osteoporosis Back pain Acid reflux disease Carpal tunnel syndrome Anxiety Hypothyroidism Sleep apnea High blood pressure Arthritis Varicose veins of ankle Depression Acute asthma Surgical History History of cataract surgery History of esophagogastroduodenoscopy (EGD) H/O right heart catheterization History of cholecystectomy H/O tubal ligation History of hernia repair Total knee replacement status Social History Smoking Status: Never smoker alcohol intake: never substance use type: denies use current occupational status: unemployed Travel in the last 8 weeks?: None Other 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 Have you received the Flu Vaccine for this season: No Have you received the Pneumonia Vaccine: Yes Review of Systems Constitutional Constitutional: Reports chills, Reports fever(s) and Reports headache(s) ENT Ears, Nose, Mouth, and Throat: Reports dizziness, Reports headache(s) and Denies nasal discharge *Cardiovascular Cardiovascular: Denies chest pain, Denies dyspnea and Reports lightheadedness *Respiratory Respiratory: Denies cough and Denies dyspnea *Gastrointestinal Gastrointestinal: Denies constipation, Reports loose stools, Denies nausea and Denies vomiting *Genitourinary Genitourinary: Denies dysuria, Denies hematuria, Denies urinary urgency and Reports other (Foul urinary odor) *Musculoskeletal Musculoskeletal: Reports system reviewed and no additional complaints, except as documented *Neurologic Neurologic: Reports dizziness and Reports headache(s) Meds Home Medications and Allergies Home Medications ?Medication ?Instructions ?Recorded ?Confirmed ?Type alendronate 70 mg tablet 70 mg PO WEEKLY 09/16/24 History fluticasone propionate 50 2 spray intranasal DAILY 12/0903/08/25 History mcg/actuation nasal spray,suspension pantoprazole 40 mg tablet,delayed 40 mg PO DAILY 10/0303/08/25 History release prasugrel HCl 10 mg tablet 10 mg PO DAILY 30 days #30 tabs 10/07/24 03/08/25 Rx (Effient) magnesium oxide 500 mg PO DAILY 12/16/24 History albuterol sulfate 90 mcg/actuation 2 inh inhalation Q4 HP PRN 12/17/24 03/08/25 History aerosol inhaler WHEEZING/SOA aspirin 81 mg tablet,delayed 81 mg PO DAILY 12/17/24 0 03/08/25 History release montelukast 10 mg tablet 10 mg PO HS 12/17/24 5 History methocarbamol 750 mg tablet 750 mg PO Q8H PRN pain #20 tabs 01/06/25 03/08/25 Rx amlodipine 2.5 mg tablet 2.5 mg PO DAILY PRN 01/13/25 03/08/25 History cholecalciferol (vitamin D3) 125 125 mcg PO DAILY 12/1603/08/25 History mcg (5,000 unit) capsule hydroxyzine HCl 10 mg tablet 10 mg PO HS PRN 01/13/25 03/08/25 History mecobalamin (vitamin B12) 500 mcg 500 mcg PO DAILY 03/08/25 History chewable tablet nitroglycerin 0.4 mg sublingual 0.4 mg sublingual Q5-1 5M PRN 01/13/25 03/08/25 History tablet fluticasone 100 mcg-salmeterol 50 inhalation 01/20/25 03/08/25 History mcg/dose blistr powdr for inhalation gabapentin 300 mg capsule 300 mg PO TID #90 caps 02/1003/08/25 Rx meloxicam 15 mg tablet 15 mg PO DAILY #30 tabs 0512/1003/08/25 Rx mirtazapine 15 mg tablet 15 mg PO HS #30 tabs 5 03/08/25 Rx atorvastatin 20 mg tablet 20 mg PO HS #30 tabs 5 03/08/25 Rx metoprolol succinate 50 mg 50 mg PO Q12H #60 tabs 02/1303/08/25 Rx tablet,extended release 24 hr levothyroxine 75 mcg tablet 75 mcg PO DAILY #90 tabs 0 02/28/25 03/08/25 Rx sucralfate 1 gram tablet 1 g PO QID 30 days #120 tabs 02/28/25 03/08/25 Rx potassium chloride 10 mEq 10 meq PO DAILY #90 tabs 03/08/25 Rx tablet,extended release(part/cryst) memantine 10 mg tablet 10 mg PO DAILY #90 tabs 02/1403/08/25 Rx azithromycin 250 mg tablet 250 mg PO QDAY #6 tabs 02/1403/08/25 Rx (Zithromax Z-Bird) chlorthalidone 25 mg tablet 25 mg PO DAILY PRN edema # 30 tabs 03/26/25 Rx empagliflozin 10 mg tablet 10 mg PO DAILY #90 tabs Rx (Jardiance) New Prescriptions to Start Prescriptions: Allergies Allergy/AdvReac Type Severity Reaction Status Date / Time hydrocodone Allergy Mild Unknown Verified 03/08/25 11:55 allergy reaction acetaminophen (From Allergy Unknown Verified 03/08/25 11:55 Tylenol-Codeine #3) allergy reaction metformin Allergy Unknown Verified 03/08/25 11:55 allergy reaction codeine AdvReac Mild Unknown Verified 03/08/25 11:55 allergy reaction Exam Data for Last 24 hours Vital signs and Labs for Last 24 Hours: Temp Pulse Resp BP Pulse Ox O2 Del Method O2 Flow Rate 99.9 F H 122 H 18 157/83 H 95 Nasal Cannula 2 04/24/25 20:58 04/24/25 20:58 04/24/25 20:58 04/24/25 21:15 04/24/25 21:15 04/24/25 21:15 04/24/25 21:15 Laboratory Results - last 24 hr 04/24/25 18:57: WBC 10.9 H, RBC 4.76, Hgb 14.0, Hct 43.0, MCV 90.3, MCH 29.4, MCHC 32.6, RDW 13.7, Plt Count 179, MPV 10.3, Neut % (Auto) 64.2, Lymph % (Auto) 19.7, Cross % (Auto) 14.9 H, Eos % (Auto) 0.5, Baso % (Auto) 0.3, Neut # (Auto) 7.0, Lymph # (Auto) 2.2, Cross # (Auto) 1.6 H, Eos # (Auto) 0.1, Baso # (Auto) 0.0, Total Counted 100, Neutrophils % (Manual) 72, Lymphocytes % (Manual) 18, Monocytes % (Manual) 9, Eosinophils % (Manual) 1, Platelet Estimate Normal, Polychromasia 1+, Poikilocytosis 1+, Anisocytosis 1+, Microcytosis 1+, Macrocytosis 1+, Tear Drop Cells 1+, PT 11.1, INR 1.00, APTT 26.7, VBG pH 7.48 H , VBG pCO2 34.2 L, VBG pO2 40.1 H, VBG HCO3 25.1, VBG Total CO2 26.1, VBG O2 Saturation 81.9 H, VBG Base Excess 1.6, VBG Lactic Acid 2.1 H, Sodium 137, Potassium 4.3, Chloride 98, Carbon Dioxide 28, Anion Gap 15.3 H, BUN 19 H, Creatinine 0.90, Estimated Creat Clear 79, Estimated GFR 62, Est GFR ( Amer) 76, Glucose 113 H, Calcium 9.4, Magnesium 1.6, Total Bilirubin 0.9, AST 66 H, ALT 63, Alkaline Phosphatase 137 H, C-Reactive Protein 71.3 H, Total Protein 8.9 H, Albumin 4.7, Globulin 4.2 H, Albumin/Globulin Ratio 1.1, Lipase 66, Procalcitonin 1.11 04/24/25 : Urine Color Yellow, Urine Appearance Clear, Urine pH 8.0, Ur Specific [place] 1.015, Urine Protein Negative, Urine Glucose (UA) 3+, Urine Ketones Negative, Urine Blood Trace-i, Urine Nitrate Positive A, Urine Bilirubin Negative, Urine Urobilinogen 0.2, Ur Leukocyte Esterase Negative, Urine WBC 50- 100, Ur Squamous Epith Cells 3-5, Urine Bacteria 4+ I & O for Last 24 hours: Intake & Output 04/21/25 04/22/25 04/23/25 04/24/25 23:59 23:59 23:59 23:59 Weight 91.172 kg *Routine HEENT Exam Head: Present normocephalic and atraumatic Eye: Present EOMI and PERRL ENT: Present mucous membranes moist and oropharynx clear *Routine Neck Exam Neck: Present supple and full ROM *Routine Respiratory Exam Respiratory: Present CTA bilaterally, normal respiratory effort, able to speak in complete sentences and symmetric chest movement; Absent accessory muscle use or respiratory distress *Routine Cardiovascular Exam Cardiovascular: Present RRR, Normal S1 and Normal S2 *Routine Abdominal Exam Abdominal: Present soft, normoactive bowel sounds and tenderness (Generalized tenderness noted to palpation); Absent distended *Routine Rectal Exam Rectal:: deferred *Routine Genitalia Exam Genitalia:: deferred *Routine Extremities Exam Extremities: Present full ROM, pulses intact and normal capillary refill; Absent edema *Routine Skin Exam Skin: Present intact, dry and warm *Routine Neurological Exam Neurological: Present alert, oriented X3 and CN II-XII intact Assessment and Plan *Assessment and plan (1) Sepsis: Status: Acute Category: Medical Code(s): A41.9 - Sepsis, unspecified organism Plan: Patient is meeting sepsis criteria with fever 100.0, tachycardia HR 122, with a source of urinary tract infection Received sepsis fluid bolus in the ER and Levaquin 750 mg Blood cultures pending, we will follow results and adjust antibiotics if indicated Monitor CBC CT abdomen/pelvis reviewed by me suggestive of mild enteritis (2) UTI (urinary tract infection): Status: Acute Category: Medical Code(s): N39.0 - Urinary tract infection, site not specified Plan: Urinalysis: Trace blood, nitrates positive, leukocytes negative, WBCs 50-100, epithelial cells 3-5, urine bacteria 4+ Last urine culture 12/30/24 positive for E. coli and sensitive to Rocephin, resistant to Levaquin Urine culture from 12/16/24 positive for Klebsiella aerogenes also sensitive to Rocephin Continue Rocephin 1 g daily Follow urine culture and adjust antibiotics if indicated (3) Fever: Status: Acute Category: Medical Code(s): R50.9 - Fever, unspecified Plan: Continue antipyretics for fever Vital signs every 4 hours (4) Diarrhea: Status: Acute Category: Medical Code(s): R19.7 - Diarrhea, unspecified Plan: Diarrhea panel pending Continue NS at 100 mL an hour (5) Dementia: Status: Acute Category: Medical Code(s): F03.90 - Unspecified dementia, unspecified severity, without behavioral disturbance, psychotic disturbance, mood disturbance, and anxiety Plan: Continue Namenda 10 mg daily when medication reconciliation is complete (6) Diabetes mellitus: Status: Acute Category: Medical Code(s): E11.9 - Type 2 diabetes mellitus without complications Plan: Blood glucose on admission 113 Continue sliding scale insulin Monitor glucose ACHS (7) Hypothyroidism: Status: Acute Category: Medical Code(s): E03.9 - Hypothyroidism, unspecified Plan: Continue patient's home dose of levothyroxine when home medication reconciliation is complete (8) COPD (chronic obstructive pulmonary disease): Status: Acute Qualifiers: COPD type: unspecified COPD Qualified Code(s): J44.9 - Chronic obstructive pulmonary disease, unspecified Category: Medical Code(s): J44.9 - Chronic obstructive pulmonary disease, unspecified Plan: DuoNebs every 6 hours as needed for shortness of breath (9) Headache: Status: Acute Category: Medical Code(s): R51.9 - Headache, unspecified Plan: Continue analgesics as needed Plan Hospitalist service consulted by Dr. Anderson Jaimes for admission. My decision to admit based on patient meeting sepsis criteria, urinary tract infection, fever, and tachycardia.
[2025-04-24] MEDS: 0.9 % SODIUM CHLORIDE 1000ML 1,000 ML 100 ML IV (22:51)
[2025-04-24 22:57] LABS: Reflex Lactic Add Lactic Reflex
[2025-04-24 23:32] LABS: Lactic Acid Follow Up (RFLX 1) 1.5 mmol/L (0.7-2.1)
[2025-04-25] VITALS (7 sets, daily range): BP systolic 135–158; BP diastolic 65–90; PULSE 61–105; RESP 14–20; TEMP 36.6–37.7; O2SAT 93–98; BMI 39.4
[2025-04-25 05:27] LABS: POC Glucose,Bedside 116 (70-110)
[2025-04-25 05:27] LABS: POC Glucose,Bedside 108 (70-110)
[2025-04-25 06:50] LABS: Nucleated Red Blood Cells % 0 %
[2025-04-25 06:55] LABS: Hematocrit 38.7 % (37.0-47.0); Hemoglobin 12.1 g/dL (12.2-16.2); Immature Granulocytes % 0.5 %; Mean Corpuscular HGB Conc 31.3 g/dL (31.8-35.4); Mean Corpuscular Hemoglobin 28.9 pg (27.0-31.2); Mean Corpuscular Volume 92.6 fl (81-99); Platelet Count 153 K/mm3 (142-424); Red Blood Count 4.18 M/mm3 (4.20-5.40); Red Cell Distribution Width-SD 47.5 fL; White Blood Count 10.4 K/mm3 (4.8-10.8)
[2025-04-25 07:07] LABS: Anion Gap 14.7 mEq/L (5-15); Blood Urea Nitrogen 14 mg/dl (7-17); Calcium 8.7 mg/dl (8.4-10.2); Carbon Dioxide 27 mmol/L (22.0-30.0); Chloride 98 mmol/L (98-107); Creatinine Clearance Estimated 79 mL/min (50-200); Creatinine,Serum 0.80 mg/dl (0.52-1.04); Estimated Glomerular Filt Rate 72 ml/min (>60); GFR (African American) 87 ML/MIN (>60); Glucose 103 mg/dl (74-100); Potassium 3.7 mmoL/L (3.5-5.1); Sodium 136 mmol/L (136-145)
[2025-04-25 07:25] LABS: Total Cells Counted 100
[2025-04-25 07:26] LABS: Hypochromasia 2+
[2025-04-25] MEDS: TRAMADOL 50MG TABLET 50 MG PO ×2 (08:21→20:47)
[2025-04-25 08:39] LABS: Acinetobacter calcoaceticus-ba Not Detected; Bacteroides fragilis Not Detected; CTX-M Not Detected; Candida auris Not Detected; Candida glabrata Not Detected; Enterobacterales Detected; Enterococcus faecalis Not Detected; Enterococcus faecium Not Detected; IMP Not Detected; KPC Not Detected; Klebsiella aerogenes Not Detected; Klebsiella pneumoniae grp Not Detected; NDM Not Detected; OXA-48-like Not Detected; Proteus spp. Not Detected; Salmonella spp. Not Detected; Serratia marcescens Not Detected; Staphylococcus epidermidis Not Detected; Staphylococcus lugdunensis Not Detected; Staphylococcus spp. Not Detected; Stenotrophomonas maltophilia Not Detected; Streptococcus agalactiae(GrpB) Not Detected; Streptococcus pyogenes Group A Not Detected; Streptococcus spp. Not Detected; VIM Not Detected; mcr-1 Not Detected
[2025-04-25] MEDS: ONDANSETRON 4MG/2ML VIAL 4 MG IV (08:44)
[2025-04-25] MEDS: 0.9 % SODIUM CHLORIDE 1000ML 1,000 ML 100 ML IV (11:30)
[2025-04-25] MEDS: KETOROLAC 30MG/ML VIAL 30 MG IV (11:31)
--- NOTE | 2025-04-25 11:58 | P.PN_ITS ---
Subjective *Date: 04/25/25 *Time: 13:13 Interval history: Ms. Castellanos is sitting up in bed this morning. She states she is not feeling well, complains of nausea and multiple episodes of vomiting this morning. She states she has not had any diarrhea. She does feel warm to the touch and states that she has had on and off fever/chills. Medical Exam Vital signs and Labs for Last 24 Hours: Vital Signs Temp Pulse Pulse Resp BP BP Pulse Ox 04/25/25 08:00 99 F 98 H 18 135/65 94 L 04/25/25 06:19 04/25/25 05:00 04/25/25 04:00 98.3 F 102 H 14 144/77 H 95 04/25/25 03:00 04/25/25 01:00 04/25/25 00:00 99.9 F H 61 14 152/90 H 94 L 04/24/25 23:00 04/24/25 22:01 120 H 04/24/25 21:15 157/83 H 95 04/24/25 20:58 99.9 F H 122 H 18 157/83 H 04/24/25 20:46 122 H 157/83 H 96 04/24/25 20:30 120 H 139/63 94 L 04/24/25 20:15 118 H 142/69 H 96 04/24/25 19:45 127 H 24 154/82 H 90 L 04/24/25 19:30 122 H 17 137/58 L 91 L 04/24/25 19:26 126 H 29 H 131/61 90 L 04/24/25 19:15 121 H 24 164/88 H 93 L 04/24/25 19:00 124 H 142/82 H 92 L 04/24/25 18:43 100.0 F H 129 H 18 151/81 H 91 L O2 Del Method O2 Flow Rate 04/25/25 08:00 Nasal Cannula 94 04/25/25 06:19 Nasal Cannula 2 04/25/25 05:00 Nasal Cannula 2 04/25/25 04:00 Nasal Cannula 2 04/25/25 03:00 Nasal Cannula 2 04/25/25 01:00 Nasal Cannula 2 04/25/25 00:00 Nasal Cannula 04/24/25 23:00 Nasal Cannula 2 04/24/25 22:01 Nasal Cannula 2 04/24/25 21:15 Nasal Cannula 2 04/24/25 20:58 Nasal Cannula 2 04/24/25 20:46 04/24/25 20:30 04/24/25 20:15 Nasal Cannula 2 04/24/25 19:45 Room Air 04/24/25 19:30 Room Air 04/24/25 19:26 Room Air 04/24/25 19:15 Room Air 04/24/25 19:00 Room Air 04/24/25 18:43 Room Air Intake and Output 04/24/25 04/25/25 04/25/25 23:59 07:59 15:59 Intake Total 806 / 906 100 / 906 Output Total 500 / 1100 1700 / 1700 Balance -500 / -810 -894 / -794 100 / -794 Intake: Intake, Oral Amount 240 / 340 100 / 340 Intake, Total IV Amount 566 / 566 0.9 % Sodium Chloride 1000ML 1, 516 / 516 000 ml @ 100 mls/hr IV .Q10H KRISTIAN Rx#:[id number] Ceftriaxone Sodium 1 gm In 0.9 50 / 50 % Sodium Chloride 50 ml @ 100 mls/hr IV Q24H KRISTIAN Rx#: [id number] Output: Output, Urine Amount 500 / 1100 1700 / 1700 Other: Number of Unmeasured Voids 0 Weight 91.172 kg 91.172 kg Patient Weight 04/25/25 23:59 Weight 91.172 kg Laboratory Results - last 24 hr 04/24/25 18:57: WBC 10.9 H, RBC 4.76, Hgb 14.0, Hct 43.0, MCV 90.3, MCH 29.4, MCHC 32.6, RDW 13.7, Plt Count 179, MPV 10.3, Neut % (Auto) 64.2, Lymph % (Auto) 19.7, Bacon % (Auto) 14.9 H, Eos % (Auto) 0.5, Baso % (Auto) 0.3, Neut # (Auto) 7.0, Lymph # (Auto) 2.2, Bacon # (Auto) 1.6 H, Eos # (Auto) 0.1, Baso # (Auto) 0.0, Total Counted 100, Neutrophils % (Manual) 72, Lymphocytes % (Manual) 18, Monocytes % (Manual) 9, Eosinophils % (Manual) 1, Platelet Estimate Normal, Polychromasia 1+, Poikilocytosis 1+, Anisocytosis 1+, Microcytosis 1+, Macrocytosis 1+, Tear Drop Cells 1+, PT 11.1, INR 1.00, APTT 26.7, VBG pH 7.48 H , VBG pCO2 34.2 L, VBG pO2 40.1 H, VBG HCO3 25.1, VBG Total CO2 26.1, VBG O2 Saturation 81.9 H, VBG Base Excess 1.6, VBG Lactic Acid 2.1 H, Sodium 137, Potassium 4.3, Chloride 98, Carbon Dioxide 28, Anion Gap 15.3 H, BUN 19 H, Creatinine 0.90, Estimated Creat Clear 79, Estimated GFR 62, Est GFR ( Amer) 76, Glucose 113 H, Calcium 9.4, Magnesium 1.6, Total Bilirubin 0.9, AST 66 H, ALT 63, Alkaline Phosphatase 137 H, C-Reactive Protein 71.3 H, Total Protein 8.9 H, Albumin 4.7, Globulin 4.2 H, Albumin/Globulin Ratio 1.1, Lipase 66, Procalcitonin 1.11, A. baumannii (PCR) Not detected, Bacteroides fragilis Not detected, Gail albicans (PCR) Not detected, Gail auris (PCR) Not detected, C. glabrata (PCR) Not detected, C. krusei (PCR) Not detected, C. parapsilosis (PCR) Not detected, C. tropicalis (PCR) Not detected, Cryptococcus neoformans PCR Not detected, Enterobacterales (PCR) Detected, Enterococc faecalis PCR Not detected, Enterococc faecium PCR Not detected, E. coli (PCR) Detected, H. in fluenzae DNA Not detected, Klebsiella aerogenes (PCR) Not detected, Klebsiella oxytoca PCR Not detected, K. pneumoniae group (PCR) Not detected, List. monocytogenes PCR Not detected, N. meningitidis (PCR) Not detected, Proteus species (PCR) Not detected, Salmonella spp. (PCR) Not detected, Serratia marcescens PCR Not detected, Staphylococcus sp PCR Not detected, Staph aureus (PCR) Not detected, mecA/C & MREJ Resist Gene Not applicable, mecA/C-Methicil Resis Gene Not applicable, Staph epidermidis (PCR) Not detected, Staph lugdunensis (TEM-PCR) Not detected, S. maltophilia (PCR) Not detected, St reptococcus sp PCR Not detected, S.agalactiae Grp B [place] Not detected, Strep pneumoniae (PCR) Not detected, S. pyogenes GrpA [place] Not detected, P. aeruginosa (PCR) Not detected, Padmini/B-Vanco Res Genes Not applicable, blaIMP Car res Gene PCR Not detected, KPC-Carbap Res Gene PCR Not detected, blaNDM Car Res Gene PCR Not detected, OXA-48 Carbapenem Resis Gene (PCR) Not detected, blaVIM Car Res Gene PCR Not detected, CTX-M Gene Resistance (PCR) Not detected, MCR-1 Resistance Gene Not detected 04/24/25 21:24: POC Glucose 116 H 04/24/25 23:13: Lactate 1.5 04/24/25 : Urine Color Yellow, Urine Appearance Clear, Urine pH 8.0, Ur Specific [place] 1.015, Urine Protein Negative, Urine Glucose (UA) 3+, Urine Ketones Negative, Urine Blood Trace-i, Urine Nitrate Positive A, Urine Bilirubin Negative, Urine Urobilinogen 0.2, Ur Leukocyte Esterase Negative, Urine WBC 50- 100, Ur Squamous Epith Cells 3-5, Urine Bacteria 4+ 04/25/25 05:15: POC Glucose 108 04/25/25 06:10: WBC 10.4, RBC 4.18 L, Hgb 12.1 L D, Hct 38.7, MCV 92.6, MCH 28.9, MCHC 31.3 L, RDW 14.0, Plt Count 153, MPV 10.4, Neut % (Auto) 53.8, Lymph % (Auto) 25.8, Bacon % (Auto) 19.5 H, Eos % (Auto) 0.1, Baso % (Auto) 0.3, Neut # (Auto) 5.6, Lymph # (Auto) 2.7, Bacon # (Auto) 2.0 H, Eos # (Auto) 0.0, Baso # (Auto) 0.0, Total Counted 100, Neutrophils % (Manual) 58, Lymphocytes % (Manual) 22, Monocytes % (Manual) 19 H, Basophils % (Manual) 1.0, Platelet Estimate Normal, Hypochromasia 2+, Sodium 136, Potassium 3.7, Chloride 98, Carbon Dioxide 27, Anion Gap 14.7, BUN 14 D, Creatinine 0.80, Estimated Creat Clear 79, Estimated GFR 72, Est GFR ( Amer) 87, Glucose 103 H, Calcium 8.7 I & O for Labs for Last 24 Hours: Intake & Output 04/22/25 04/23/25 04/24/25 04/25/25 23:59 23:59 23:59 23:59 Intake Total 906 / 906 Output Total 500 / 1100 1700 / 1700 Balance -500 / -810 -794 / -794 Weight 91.172 kg 91.172 kg Microbiology Reports for the Last 24 Hours: Microbiology 04/24/25 19:23 Blood Blood Culture - Preliminary 04/24/25 Unknown Urine,Clean Catch Urine Culture - Preliminary Gram Negative Rods Constitutional: Present no acute distress, obese, chronically ill appearing and cooperative Head: Present atraumatic and normocephalic ENT: Present normal exam Neck: Present normal inspection Respiratory: Present CTA bilaterally, normal respiratory effort, able to speak in complete sentences and symmetric chest movement; Absent respiratory distress, rhonchi, stridor, wheezes or crackles Cardiac: Present Reg Rate and Rhythm GI: Present soft and hyperactive bowel sounds; Absent distention or tenderness Rectal (female): Present deferred (female): Present deferred Extremities: Present normal inspection, full ROM and edema; Absent tenderness Skin: Present intact, dry and warm; Absent erythema Neuro: Present Grossly Intact, alert, awake, oriented x 3 and moves all extremities Assessment and Plan *Assessment and plan (1) Sepsis: Status: Acute Category: Medical Code(s): A41.9 - Sepsis, unspecified organism (2) Bacteremia: Status: Acute Category: Medical Code(s): R78.81 - Bacteremia (3) UTI (urinary tract infection): Status: Acute Category: Medical Code(s): N39.0 - Urinary tract infection, site not specified (4) Fever: Status: Acute Category: Medical Code(s): R50.9 - Fever, unspecified Plan: Continue antipyretics for fever Vital signs every 4 hours (5) Diarrhea: Status: Acute Category: Medical Code(s): R19.7 - Diarrhea, unspecified Plan: Diarrhea panel pending Continue NS at 100 mL an hour (6) Nausea & vomiting: Status: Acute Category: Medical Code(s): R11.2 - Nausea with vomiting, unspecified (7) Headache: Status: Acute Category: Medical Code(s): R51.9 - Headache, unspecified (8) Dementia: Status: Acute Category: Medical Code(s): F03.90 - Unspecified dementia, unspecified severity, without behavioral disturbance, psychotic disturbance, mood disturbance, and anxiety (9) Diabetes mellitus: Status: Acute Category: Medical Code(s): E11.9 - Type 2 diabetes mellitus without complications (10) Hypothyroidism: Status: Acute Category: Medical Code(s): E03.9 - Hypothyroidism, unspecified (11) COPD (chronic obstructive pulmonary disease): Status: Acute Qualifiers: COPD type: unspecified COPD Qualified Code(s): J44.9 - Chronic obstructive pulmonary disease, unspecified Category: Medical Code(s): J44.9 - Chronic obstructive pulmonary disease, unspecified Plan Ms. Castellanos is a 69-year-old female who was admitted to the hospital via the e mergency room after complaints of nausea, vomiting, diarrhea, body aches, fever and foul-smelling urine. She states that she has had multiple urinary tract infections in the past that she has had to be admitted for due to becoming septic. Workup included CBC, CMP, CRP, urinalysis, VBG. No leukocytosis or electrolyte abnormalities noted, kidney function within normal limits, CRP elevated at 71.3. Urinalysis positive for nitrates, urine WBC 50-100, urine bacteria 4+. Patient's abdomen/pelvis CT showed enteritis. Patient also noted to be slightly hypoxic oxygen saturation 91% on room air, 2 L nasal cannula applied. Blood cultures were obtained in the emergency room and hospital medicine was consulted for admission for urosepsis. #Sepsis #UTI #Bacteremia #Fever ? Patient was found to be tachycardic and febrile in the emergency room. She is now feeling some better, heart rate in the 90s, low-grade fever less than 100. She received Levaquin 750 mg IV in the ED, blood cultures came back growing gram-negative rods, transition to ceftriaxone 2 g daily. Patient does have a history of bowel bladder stimulator placement. ?Patient did also receive sepsis bolus in the ER, continuing fluid resuscitation NS 100 mL/hour. ?New requirement of 2 L nasal cannula, chest x-ray pending. ?Patient found to have a UTI, urine culture pending. ?White count on admission 10.9, today 10.4. Will continue to trend. ?CBC, CMP, magnesium ordered for a.m. #Diarrhea #Nausea and vomiting #Headache ? Patient has not had any more episodes of diarrhea since admission. Diarrhea panel ordered. ? Patient is still having nausea and vomiting. IV hydration, Zofran IV as needed. ? Patient does complain of intermittent headaches, Ultram 50 mg every 6 hours as needed and Toradol 30 mg IV ordered. Monitor for toxicity. #Dementia #Diabetes mellitus #Hypothyroidism #COPD #History of DVT ?Restart patient's home medicines atorvastatin 20 mg, gabapentin 300 mg 3 times daily, levothyroxine 75 mcg, memantine 10 mg, metoprolol 50 mg twice daily, pantoprazole 40 mg twice daily Effient 10 mg, aspirin 81 mg, pantoprazole 40 mg twice daily, Remeron 50 mg. Continue Advair inhaler. ?DuoNebs every 6 hours as needed for shortness of breath. ?Hold Jardiance 10 mg due to persistent stress incontinence, urge incontinence. A1c in January 2024 5.9%. Full code Diabetic diet Ambulate as tolerated Lovenox VTE
--- OUTSIDE RECORDS SUMMARY | 2025-04-25 12:35 | XMS_ITS | Clinical Summary ---
Author Organization Healthcare Address [address] [place] [address] Care Team Providers Care Service Station Console Operator Name Role Phone Reza Panchal MD Primary Care Provider [phone] Allergies Active Allergy Reactions Criticality Noted Date [...] file Insurance [employer] MEDICARE [place]ICAID-[place] Care Teams Service Station Console Operator Relationship Specialty Start Date End Date Reza Panchal MD [address] [place] [address] PCP - General 08/17/24
--- OUTSIDE RECORDS SUMMARY | 2025-04-25 12:35 | XMS_ITS | Clinical Summary ---
Author Organization [facility] Address [address] [place] [address] Phone Care Team Providers Care Cement Despatch Operator Name Role Phone Unavailable Unavailable Conditions or Problems No information available. Medications No information available. Medications Administered No information available. Allergies, Adverse Reactions, Alerts No information available. Results No information available. Plan of Care No information available. Procedures No information available. Vital Signs No information available. Immunizations No information available. Advance Directives No information available.
--- OUTSIDE RECORDS SUMMARY | 2025-04-25 12:35 | XMS_ITS | Encounter Summary ---
Author Organization Healthcare Address [address] [place] [address] Care Team Providers Care Licensed Weigher Name Role Phone Reza Panchal MD Primary Care Provider [phone] Encounter Details Date Type Department Care Team (Late st Contact Info) Description 08/17/2024 Ophth Exam [facility] [address] [place] [id number] Tian Ramírez MD [address] [place] [id number] Social History Tobacco Use Types Packs/Day [...] on filedocumented in this encounter Care Teams Licensed Weigher Relationship Specialty Start Date End Date Reza Panchal MD [address] [place] [address] PCP - General 08/17/24 documented as of this encounter
--- OUTSIDE RECORDS SUMMARY | 2025-04-25 12:35 | XMS_ITS ---
Author Name Ephraim RN, NEEDLEWORKER, Leigh martinez Sarina Address [address] [address] Phone [phone] Organization [facility] Care Team Providers Care Meat Scrubber Name Role Phone Ivonne Ye Unavailable [phone] Reason for Referral Not Available Allergies, adverse [...] 50 mg Tab TAKE 1 TABLET BY [facility] ONCE DAILY IN AM WITH FOOD FOR [...] mg Cap TAKE 1 CAPSULE BY [facility] TWICE DAILY FOR 10 DAYS 2024-08-14 No [...] EVERY 12 HOURS 2024-01-03 No Data Available [id number] Suspension SHAKE LIQUID AND INSTILL 1 DROP [...] mplaint [facility] [place], [place], [place] 12/25/2024 Encntr for f/u exam aft trtm t for cond oth than malig neoplmSepsis, unspecified organism [facility] [place], [place] 12/25/2024 Encntr for f/u exam aft trtm t for cond oth than malig neoplmSepsis, unspecified organism [facility] 7 [facility] [place] [place] 12/25/2024 Encntr for f/u exam aft trtm t for cond oth than malig neoplmSepsis, unspecified organism [facility] [place] [place] 12/25/2024 Encntr for f/u exam aft trtm t for cond oth than malig neoplmSepsis, unspecified organism Telephone E/M Service; 5-10 min of Medical Discussion (Audio Only) [place], 12/27/2024 Sepsis, unspecified organism Telephone E/M Service; 5-10 min of Medical Discussion (Audio Only) [place], 12/27/2024 Sepsis, unspecified organism Vital Signs Date of Collection Vitals 2024-12-25 14:07:15 BP Diastolic - 79.0 mm[Hg]BP Systolic - 143.0 mm[Hg]Heart Rate - 92.0 /min Social History Sex Female History of Procedures Procedures Service Procedure code Service date Servicing provider Phone# [facility] [id number] 2024-12-25 No Data Available No Data Avail [...] 5-10 min of Medical Discussion (Audio Only) [id number] 2024-12-27 No Data Available No Data Availa [...] getting around the house wellLana Erica is POA/insurance policy issue clerk - she comes over and cooks meals, cleans the house, brings her to appts and the grocery store because pt gets out of breath with too much walkingPD will be a phone visit (Cannot be the following states: [place], [place], [place], [place], [place], [place], [place], [place], [place])Pt Agreed to a post discharge visit with a [facility] Provider: with Ivelisse Reed Friday, December 27, 2024 4:00pm ESTRN reinforced availability of UC provider 24/ for 30 days after discharge and encouraged CB w/ any concerns or if pt is worse in any way. Advised pt to call to reach our staff.Needs/concerns for [facility] provider to address during PD visit: 1) [...] review 2024-12-27 Type of Visit: [facility]: [facility] Date: 12/19/24Discharge diagnosis: Sepsis, unspecified [...]
--- NOTE | 2025-04-25 13:37 | XR_ITS ---
FINAL REPORT CLINICAL HISTORY: Hypoxia COMPARISON: 12/16/2024 FINDINGS: A single frontal view of the chest was obtained. There is new airspace disease in the right lung base suspicious for pneumonia with a pleural effusion. A small left pleural effusion is noted. There is no pneumothorax. Mediastinum is unremarkable. Mild cardiomegaly is stable. IMPRESSION: Right basilar density suspicious for pneumonia with effusion, new since previous. Reviewed, Interpreted and Dictated by Pricila Gupta MD Transcribed by Ivelisse Underwood Authenticated and [facility]
--- NOTE | 2025-04-25 13:40 | HMH.OTEV ---
OT Inpatient Evaluation Rehab OT IP Evaluation Start: 04/24/25 22:14 Freq: ONCE Status: Active Protocol: Document 04/25/25 13:35 [facility] (Rec: 04/25/25 13:40 [facility] [id number]) Rehab OT IP Assessment Subjective History Pt oriented x 3 on arrival. Pt agreeable to engage in therapy evaluation. Pt admitted on 04/24/25 History and physical: Ms. Castellanos is a 69-year-old female presents ER with complaints of abdominal pain. Patient's past medical history of diabetes mellitus, hypertension, asthma, sleep apnea, hypothyroidism, anxiety, acid reflux disease, COPD, dementia, hyperlipidemia and overactive bladder. Patient reports 2 to 3-week history of foul-smelling urine. She denies hematuria, frequency, urgency, or dysuria. She states this afternoon she started having abdominal pain, nausea, arthralgias fever, and chills. She states her temperature was 101. She also reports dizziness, lightheadedness, headache and diarrhea. She reports 3 loose bowel movements daily in the last 2 to 3 weeks. She reports that her headache is a 10 out of 10. She states it feels like one of her migraine headaches. Patient denies cough, congestion, runny nose, dyspnea, chest pain, nausea, vomiting, constipation, or syncope. Patient states she uses supplemental oxyge as needed at home. Subjective Prior to being in the hospital, pt lived at home alone. Her granddaughter was able to assist her as needed with ADLs. She was dependent upon her for completion of IADLs. She does use a rolling walker during functional transfers. She does not drive. She uses supplemental o2 as needed. Objective Patient Orientation Person,Place,Birthday Right Upper Min Limitation <25% Extremity Gross ROM Left Upper Extremity Min Limitation <25% Gross ROM Shoulder ROM Muscle Weakness Limitations Elbow ROM Muscle Weakness Limitations Wrist Limitations of Muscle Weakness Range of Motion Bed Mobility bed mobility-scooting,bed mobility - supine/sit Assist Level Minimal x 2 (25% assist) Rehab OT IP prob,goals,plan Problems Date of Evaluation: 04/25/25 OT IP Problems Bed Mobility,Transfers,Balance,Self care,Safety Rehab Potential Rehab Potential Good Equipment Needs Assistive Devices Rolling / Wheeled Walker Plan OT intervention Plan Bed Mobility,Transfers,Balance,Self care,Safety, Therapeutic Exercise OT Plan Frequency Daily Duration LOS Discharge Goals Bed Mobility Ability Assistance x1 Sit to Stand Chair Moderate x 1 (50% assist) Transfer Ability Chair Transfer Moderate x 1 (50% assist) Ability Chair Transfer Sit to/from Ambulatory Technique Chair Transfer Rolling Walker Assistive Devices Feeding Ability Assist with Tray Set Up Lower Body Dressing Moderate Assistance Ability Upper Body Dressing Minimal Assistance Ability Performing Toilet Moderate Assistance Hygiene Ability Overall Commode/ Moderate Assistance Toilet Transfer Ability Commode/Toilet Sit to/from Ambulatory Transfer Technique Discharge Plan OT Discharge Plan Pt will continue to be seen for OT services while at [facility]. At this time, pt would benefit most from short term rehab at [facility]. Pt explains her granddaughter would not be able to assist her at home because she works fulltime. Continued skilled therapy is important in order for patient to improve strength, safety, endurance, ADL independence, and functional transfers to reach PLOF. Eval Complexity Eval Charge Codes 55242 - Moderate Complexity PHYSICIAN CERTIFICATION: I certify the specified therapy services for Madison Castellanos are required, authorized, and reviewed every 30 days.
--- NOTE | 2025-04-25 14:50 | CT_ITS ---
PROCEDURE INFORMATION: Exam: CT Chest Without Contrast; Diagnostic Exam date and time: 04/26/2025 8:10 AM Age: 69 years old Clinical indication: Dyspnea; Additional info: Pneumonia, hypoxia TECHNIQUE: Imaging protocol: Diagnostic computed tomography of the chest without contrast. Radiation optimization: All CT scans at this facility use at least one of these dose optimization techniques: automated exposure control; mA and/or kV adjustment per patient size (includes targeted exams where dose is matched to clinical indication); or iterative reconstruction. COMPARISON: CT CHEST WO/W CON 09/26/2024 7:49 AM FINDINGS: Lungs: Consolidation in the right middle lobe lingula and left lower lobe may represent multifocal pneumonia. Pleural spaces: Unremarkable. No pneumothorax. No pleural effusion. Heart: There is calcification of the aortic valve annulus. There is calcification of the mitral valve annulus. Coronary arteries: Coronary artery calcifications may indicate coronary artery disease. Lymph nodes: Unremarkable. No enlarged lymph nodes. Vasculature: Unremarkable. No aortic aneurysm. Diaphragm: Moderate hiatal hernia Gallbladder and biliary ducts: Cholecystectomy Intestine: 3.7 cm collection of air and debris projecting off of the 3rd duodenum. 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 Bones/joints: Unremarkable. No acute fracture. Soft tissues: Unremarkable. IMPRESSION: 1. Consolidation in the right middle lobe lingula and left lower lobe may represent multifocal pneumonia. 2. 3.7 cm collection of air and debris projecting off of the 3rd duodenum. 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
[2025-04-25] MEDS: AZITHROMYCIN 500 MG in 0.9 % SODIUM CHLORIDE 250 ML 250 MG IV (16:15)
[2025-04-25] MEDS: SODIUM CHLORIDE 0.9% 25ML BAG 25 ML IV (16:15)
[2025-04-25] MEDS: PROMETHAZINE HCL 25MG/ML 1ML VIAL 12.5 MG IV (16:15)
[2025-04-25 16:48] LABS: POC Glucose,Bedside 96 (70-110)
[2025-04-25 16:48] LABS: POC Glucose,Bedside 127 (70-110)
[2025-04-25] MEDS: METOCLOPRAMIDE HCL 10MG/2ML VIAL 10 MG IVP (18:20)
--- NOTE | 2025-04-25 18:33 | PC.NURSE ---
Addendum entered by Naomy Corrigan RN 04/25/25 19:08: pt stated i feel a little better after admin of reglan Addendum entered by Naomy Corrigan RN 04/25/25 18:40: hyperactive bowel sounds, pts abd, large, round and slightly distended per the pt Original Note: on initial assessment this morning pt c/o a lay, treated per dec. about 15 mins later therapy sat pt up and she began vomiting. treated with zofran with little relief. notified md, admin phenergan with the same results, notified md again. new orders placed for meds and scans. ct scan has been ordered on pt but due to her nausea, david stated its nonemergent and ok to wait until tomorrow.
[2025-04-25] MEDS: PIPERACILLIN/TAZO 3.375 GM in 0.9 % SODIUM CHLORIDE 50 ML IV (19:06)
[2025-04-25] MEDS: MIRTAZAPINE 15 MG TABLET PO (20:36)
[2025-04-25] MEDS: ATORVASTATIN 20MG TABLET 20 MG PO (20:36)
[2025-04-25] MEDS: PANTOPRAZOLE 40MG TABLET 40 MG PO (20:36)
[2025-04-25] MEDS: METOPROLOL SUCCINATE XL 50MG TABLET 50 MG PO (20:36)
[2025-04-25] MEDS: GABAPENTIN 300MG CAPSULE 300 MG PO (20:36)
[2025-04-25 20:50] LABS: POC Glucose,Bedside 91 (70-110)
[2025-04-26] VITALS (9 sets, daily range): BP systolic 115–149; BP diastolic 52–83; PULSE 77–108; RESP 14–18; TEMP 36.6–37.6; O2SAT 93–97; BMI 39.6
[2025-04-26] MEDS: PIPERACILLIN/TAZO 3.375 GM in 0.9 % SODIUM CHLORIDE 50 ML IV ×4 (00:35→18:02)
[2025-04-26] MEDS: LEVOTHYROXINE 75MCG (0.075MG) TAB 75 MCG PO (06:06)
[2025-04-26 06:16] LABS: POC Glucose,Bedside 102 (70-110)
[2025-04-26 07:26] LABS: Hematocrit 38.0 % (37.0-47.0); Hemoglobin 12.2 g/dL (12.2-16.2); Immature Granulocytes % 0.5 %; Mean Corpuscular HGB Conc 32.1 g/dL (31.8-35.4); Mean Corpuscular Hemoglobin 29.8 pg (27.0-31.2); Mean Corpuscular Volume 92.9 fl (81-99); Nucleated Red Blood Cells % 0 %; Platelet Count 170 K/mm3 (142-424); Red Blood Count 4.09 M/mm3 (4.20-5.40); Red Cell Distribution Width-SD 47.2 fL; White Blood Count 9.8 K/mm3 (4.8-10.8)
[2025-04-26 07:41] LABS: Alanine Aminotransferase 40 U/L (12-78); Albumin Level 3.8 g/dl (3.5-5.0); Albumin/Globulin Ratio 1.2 (1.1-1.8); Alkaline Phosphatase 113 U/L (38-126); Anion Gap 16.0 mEq/L (5-15); Aspartate Amino Transferase 37 U/L (14-36); Bilirubin,Total 0.9 mg/dl (0.2-1.3); Blood Urea Nitrogen 13 mg/dl (7-17); Calcium 8.7 mg/dl (8.4-10.2); Carbon Dioxide 26 mmol/L (22.0-30.0); Chloride 96 mmol/L (98-107); Creatinine Clearance Estimated 79 mL/min (50-200); Creatinine,Serum 0.80 mg/dl (0.52-1.04); Estimated Glomerular Filt Rate 72 ml/min (>60); GFR (African American) 87 ML/MIN (>60); Globulin 3.3 g/dL (1.3-3.2); Glucose 100 mg/dl (74-100); Magnesium 1.4 mg/dl (1.6-2.3); Potassium 4.0 mmoL/L (3.5-5.1); Sodium 134 mmol/L (136-145); Total Protein,Serum 7.1 g/dl (6.3-8.2)
--- NOTE | 2025-04-26 07:52 | PC.NURSE ---
Urine culture results forwarded to hospitalist.
--- NOTE | 2025-04-26 08:00 | XR_ITS ---
PROCEDURE INFORMATION: Exam: XR Abdomen Exam date and time: 04/26/2025 8:11 AM Age: 69 years old Clinical indication: Nausea and vomiting; Additional info: N/v TECHNIQUE: Imaging protocol: Radiologic exam of the abdomen. Views: Frontal supine view of the abdomen. 1 View. COMPARISON: CT ABDOMEN PELVIS W CON 04/24/2025 7:54 PM FINDINGS: Tubes, catheters and devices: Neurostimulator terminates in the pelvis Gastrointestinal tract: Normal. No bowel dilation. Intraperitoneal space: Surgical clips in the right upper quadrant Bones/joints: Levoscoliosis of the lumbar spine. Degenerative changes in the lumbar spine and sacroiliac joints IMPRESSION: No acute findings.
[2025-04-26 08:09] LABS: Total Cells Counted 100
[2025-04-26 08:10] LABS: RBC Morphology Normal
[2025-04-26] MEDS: MEMANTINE 10MG TABLET 10 MG PO (08:52)
[2025-04-26] MEDS: ASPIRIN EC 81MG TABLET 81 MG PO (08:52)
[2025-04-26] MEDS: GABAPENTIN 300MG CAPSULE 300 MG PO ×3 (08:53→20:04)
[2025-04-26] MEDS: PRASUGREL 10MG TAB 10 MG PO (08:53)
[2025-04-26] MEDS: ONDANSETRON 4MG/2ML VIAL 4 MG IV (08:53)
[2025-04-26] MEDS: PANTOPRAZOLE 40MG TABLET 40 MG PO ×2 (08:53→20:04)
[2025-04-26] MEDS: METOPROLOL SUCCINATE XL 50MG TABLET 50 MG PO ×2 (08:56→20:04)
--- NOTE | 2025-04-26 10:35 | HMH.PTEV ---
Physical Therapy Evaluation Rehab PT IP Evaluation Start: 04/24/25 22:14 Freq: ONCE Status: Active Protocol: Document 04/26/25 10:27 [facility] (Rec: 04/26/25 10:35 [facility] [id number]) Subjective/History History History Per H&P: Ms. Castellanos is a 69-year-old female presents ER with complaints of abdominal pain. Patient 's past medical history of diabetes mellitus, hypertension, asthma, sleep apnea, hypothyroidism, anxiety, acid reflux disease, COPD, dementia, hyperlipidemia and overactive bladder. Patient reports 2 to 3-week history of foul-smelling urine. She denies hematuria, frequency, urgency, or dysuria. She states this afternoon she started having abdominal pain , nausea, arthralgias fever, and chills. She states her temperature was 101. She also reports dizziness, lightheadedness, headache and diarrhea. She reports 3 loose bowel movements daily in the last 2 to 3 weeks. She reports that her headache is a 10 out of 10. She states it feels like one of her migraine headaches. Patient denies cough, congestion, runny nose, dyspnea, chest pain, nausea, vomiting, constipation, or syncope. Patient states she uses supplemental oxyge as needed at home. Subjective Subjective PLOF: IND with all functional mobility tasks without RW usage. No falls in past [address] HOME: Lives alone in a 2 story home (stays on ground level). Assistance: Reports her granddaughter is a LOAD[employer] who works for her and can assist as needed. New diagnosis of No cancer in past 12 months? [facility] How much help from another person do you currently need... Turning from your None back to your side while in a flat bed without using bedrails? Moving from lying on None back to sitting on the side of a flat bed without using bedrails? Moving to and from a None bed to a chair ( including a wheelchair)? Standing up from a A little chair using your arms? (e.g., wheelchair, bedside chair) Walking in hospital A little room? Climbing 3-5 steps A little with a railing? Mobility Score 21 Mobility Level [facility] Mobility 6 Walk 10 steps or more Mobility Calculator Rehab PT IP Eval Objective Appearance Patient Behavior Appropriate,Cooperative Patient Orientation Person,Place,Situation Difficulty following none instructions Speech Pattern Clear Ambulation Patient Able to Yes Ambulate Ambulation Observation IP General Gait Wide Based Gait Pattern Observation Ambulation Distance 4 (feet) Ambulation Assistive None Device Ambulation Ability Supervision/Stand by Balance Ability to Arise Able, uses arms to help Sitting Balance Steady, safe Standing Balance Unsteady Transfers Bed Transfer Ability Supervision/Stand by Sit to Stand Bed Supervision/Stand by Transfer Ability Sit to Stand Chair Moderate x 2 (50% assist) Transfer Ability Rehab PT IP prob,goals,plan Problems Date of Evaluation: 04/26/25 PT IP Problems Bed Mobility,Transfers,Gait,Balance,Self care,Safety Rehab Potential Rehab Potential Good Equipment Needs Assistive Devices Rolling / Wheeled Walker Plan PT Intervention Plan Bed Mobility,Transfers,Gait,Balance,Self care,Safety, Therapeutic Exercise Other Intervention 1-2 times Plan PT Plan Frequency Daily Duration LOS Discharge Goals Bed Transfer Ability Independent Sit to Stand Chair Independent Transfer Ability Ambulation Assistive Rolling Walker Device Ambulation Distance 20 (feet) Discharge Plan PT Discharge Plan Pt presents below baseline in mobility. Pt's mobility still limited by complaints of nausea so initial PT evaluation was limited. Pt may be safe to d/c home with PT services if she has 24/7 assistance at home or improves ability to ambulate while at [facility]. If pt does not improve ambulation ability or can not secure 24/7 assistance at home, PT recommending inpatient rehabilitation. Pt would benefit from skilled acute care PT while at [facility] to prevent further functional decline and address deficits. Eval Complexity Eval Charge Codes 15755 - Moderate Complexity PHYSICIAN CERTIFICATION: I certify the specified therapy services for Madison Castellanos are required, authorized, and reviewed every 30 days.
[2025-04-26 11:14] LABS: Lipase 33 U/L (23-300)
[2025-04-26 11:26] LABS: POC Glucose,Bedside 119 (70-110)
[2025-04-26] MEDS: POLYETHYLENE GLYCOL 3350 17 GM PACKET PO (11:35)
[2025-04-26] MEDS: BELLADONNA ALKALOIDS 60 ML ML PO (11:36)
[2025-04-26] MEDS: METOCLOPRAMIDE HCL 10MG/2ML VIAL 10 MG IVP (11:36)
[2025-04-26] MEDS: GLYCERIN ADULT 3GM SUPP 3 GM RC (11:36)
[2025-04-26] MEDS: SODIUM CHLORIDE 3% 15ML NEB 3 ML IH (11:45)
[2025-04-26] MEDS: SUCRALFATE 1GM TABLET 1 GM PO ×3 (11:59→20:04)
[2025-04-26 14:07] LABS: Adenovirus F 40/41, stool Not Detected (NotDetected); Clostridium Difficile A/B, PCR Not Detected (NotDetected); Cyclospora Cayetanesis Not Detected (NotDetected); Plesimonas Shigalloides, PCR Not Detected (NotDetected); Salmonella, PCR Not Detected (NotDetected); Shiga-like toxin E coli Not Detected (NotDetected); Shigella Enterovasive E coli Not Detected (NotDetected); Vibrio, PCR Not Detected (NotDetected); Yersinia Entercolitica, PCR Not Detected (NotDetected)
[2025-04-26] MEDS: AZITHROMYCIN 500 MG in 0.9 % SODIUM CHLORIDE 250 ML 250 MG IV (15:34)
[2025-04-26] MEDS: MAGNESIUM SULFATE IN WATER 2 GM/50 ML PIGGYBACK IV ×3 (17:06→20:04)
--- NOTE | 2025-04-26 17:31 | P.PN_ITS ---
Subjective *Date: 04/26/25 *Time: 17:31 Interval history: Patient had nausea/vomiting, epigastric pain this morning. Improved with GI cocktail, Carafate. Continue Zosyn for UTI, bacteremia, pneumonia. Plan to discharge home tomorrow or the day after once family/calcine furnace tender is back in town. Exam Data for Last 24 hours Vital signs and Labs for Last 24 Hours: Temp Pulse Resp BP Pulse Ox O2 Del Method O2 Flow Rate 98.3 F 105 H 16 140/64 95 Nasal Cannula, Simple Mask 2 04/26/25 12:00 04/26/25 12:00 04/26/25 12:00 04/26/25 12:00 04/26/25 12:00 04/26/25 17:00 04/26/25 15:00 Laboratory Results - last 24 hr 04/24/25 : Urine Color Yellow, Urine Appearance Clear, Urine pH 8.0, Ur Specific [place] 1.015, Urine Protein Negative, Urine Glucose (UA) 3+, Urine Ketones Negative, Urine Blood Trace-i, Urine Nitrate Positive A, Urine Bilirubin Negative, Urine Urobilinogen 0.2, Ur Leukocyte Esterase Negative, Urine WBC 50- 100, Ur Squamous Epith Cells 3-5, Urine Bacteria 4+ 04/25/25 20:35: POC Glucose 91 04/26/25 06:05: POC Glucose 102 04/26/25 06:40: WBC 9.8, RBC 4.09 L, Hgb 12.2, Hct 38.0, MCV 92.9, MCH 29.8, MCHC 32.1, RDW 13.8, Plt Count 170, MPV 10.3, Neut % (Auto) 59.0, Lymph % (Auto) 21.9, [place] % (Auto) 18.2 H, Eos % (Auto) 0.2, Baso % (Auto) 0.2, Neut # (Auto) 5.8, Lymph # (Auto) 2.2, [place] # (Auto) 1.8 H, Eos # (Auto) 0.0, Baso # (Auto) 0.0, Total Counted 100, Neutrophils % (Manual) 62, Lymphocytes % (Manual) 23, Monocytes % (Manual) 13 H, Eosinophils % (Manual) 1, Basophils % (Manual) 1.0, Platelet Estimate Normal, RBC Morphology Normal, Sodium 134 L, Potassium 4.0, Chloride 96 L, Carbon Dioxide 26, Anion Gap 16.0 H, BUN 13, Creatinine 0.80, Estimated Creat Clear 79, Estimated GFR 72, Est GFR ( Amer) 87, Glucose 100, Calcium 8.7, Magnesium 1.4 L D, Total Bilirubin 0.9, AST 37 H D, ALT 40 D, Alkaline Phosphatase 113, Total Protein 7.1, Albumin 3.8 D, Globulin 3.3 H, Albumin/Globulin Ratio 1.2, Lipase 33 04/26/25 11:19: POC Glucose 119 H 04/26/25 14:00: Stl C. cayetanensis PCR Not detected, Stool Rotavirus (PCR) Not detected, Stl Adenov F 40/41 PCR Not detected, Stool Astrovirus (PCR) Not detected, Stool Campylobacter PCR Not detected, Stl C.difficile Tox PCR Not detected, Stool Cryptosporidium PCR Not detected, Stl E.coli Shiga Tox PCR Not detected, Stool E coli O157 PCR Not detected, Stl Enterotoxigenic E PCR Not detected, Stool EPEC (PCR) Not detected, Stool EAEC (PCR) Not detected, Stl E. histolytica PCR Not detected, Stool Giardia [place] PCR Not detected, Stool Salmonella PCR Not detected, Stool Sapovirus (PCR) Not detected, Stl P. shigelloides PCR Not detected, Stl Shigella/EIEC PCR Not detected, St Y.enterocolitica PCR Not detected, Stool Vibrio (PCR) Not detected, Stl Vibrio cholerae PCR Not detected, Stl Norovirus GI/GII PCR Not detected I & O for Last 24 hours: Intake & Output 04/23/25 04/24/25 04/25/25 04/26/25 23:59 23:59 23:59 23:59 Intake Total 1146 / 1386 620 / 620 Output Total 500 / 1100 2850 / 3400 1400 / 1400 Balance -500 / -810 -1704 / -2014 -780 / -780 Weight 91.172 kg 91.172 kg 91.626 kg Microbiology Reports for the Last 24 Hours: Microbiology 04/24/25 19:23 Blood Blood Culture - Preliminary Gram Negative Rods 04/24/25 Unknown Urine,Clean Catch Urine Culture - Final Escherichia coli 04/24/25 18:57 Blood Blood Culture - Preliminary NO GROWTH AFTER 24 HOURS Constitutional Constitutional: no acute distress *Routine HEENT Exam Head: Present normocephalic Eye: Present EOMI and PERRL ENT: Present mucous membranes moist *Routine Neck Exam Neck: Present supple; Absent lymphadenopathy *Routine Respiratory Exam Respiratory: Present CTA bilaterally *Routine Cardiovascular Exam Cardiovascular: Present RRR *Routine Abdominal Exam Abdominal: Present soft, normoactive bowel sounds and tenderness *Routine Extremities Exam Extremities: Absent cyanosis, clubbing or edema *Routine Skin Exam Skin: Present warm; Absent rash *Routine Neurological Exam Neurological: Present alert and oriented X3 Assessment and Plan *Assessment and plan (1) Sepsis: Status: Acute Category: Medical Code(s): A41.9 - Sepsis, unspecified organism (2) Bacteremia: Status: Acute Category: Medical Code(s): R78.81 - Bacteremia (3) UTI (urinary tract infection): Status: Acute Category: Medical Code(s): N39.0 - Urinary tract infection, site not specified (4) Fever: Status: Acute Category: Medical Code(s): R50.9 - Fever, unspecified Plan: Continue antipyretics for fever Vital signs every 4 hours (5) Diarrhea: Status: Acute Category: Medical Code(s): R19.7 - Diarrhea, unspecified Plan: Diarrhea panel pending Continue NS at 100 mL an hour (6) Nausea & vomiting: Status: Acute Category: Medical Code(s): R11.2 - Nausea with vomiting, unspecified (7) Headache: Status: Acute Category: Medical Code(s): R51.9 - Headache, unspecified (8) Dementia: Status: Acute Category: Medical Code(s): F03.90 - Unspecified dementia, unspecified severity, without behavioral disturb ance, psychotic disturbance, mood disturbance, and anxiety (9) Diabetes mellitus: Status: Acute Category: Medical Code(s): E11.9 - Type 2 diabetes mellitus without complications (10) Hypothyroidism: Status: Acute Category: Medical Code(s): E03.9 - Hypothyroidism, unspecified (11) COPD (chronic obstructive pulmonary disease): Status: Acute Qualifiers: COPD type: unspecified COPD Qualified Code(s): J44.9 - Chronic obstructive pulmonary disease, unspecified Category: Medical Code(s): J44.9 - Chronic obstructive pulmonary disease, unspecified Plan Ms. Castellanos is a 69-year-old female who was admitted to the hospital via the emergency room after complaints of nausea, vomiting, diarrhea, body aches, fever and foul-smelling urine. She states that she has had multiple urinary tract infections in the past that she has had to be admitted for due to becoming septic. Workup included CBC, CMP, CRP, urinalysis, VBG. No leukocytosis or electrolyte abnormalities noted, kidney function within normal limits, CRP elevated at 71.3. Urinalysis positive for nitrates, urine WBC 50-100, urine bacteria 4+. Patient's abdomen/pelvis CT showed enteritis. Patient also noted to be slightly hypoxic oxygen saturation 91% on room air, 2 L nasal cannula applied. Blood cultures were obtained in the emergency room and hospital medicine was consulted for admission for urosepsis. #Sepsis #UTI #Community-acquired pneumonia #Bacteremia #Fever ? Patient was found to be tachycardic and febrile in the emergency room. She is now feeling better, heart rate in the 90s, low-grade fever less than 100. Patient does have a history of bowel bladder stimulator placement. ? UA grossly abnormal, urine culture growing E. coli sensitive to Zosyn. Blood cultures positive for E. coli. ? CT chest also shows atypical pneumonia, new 2 L oxygen requirement. ? Patient had some epigastric pain, nausea/vomiting this morning. Improved with GI cocktail, Carafate. Has a history of large hiatal hernia. ? Continue Zosyn and azithromycin, plan to switch to ceftriaxone tomorrow. Will need a total of 10 days of antibiotics. ? Plan to discharge tomorrow if family/calcine furnace tender is back in town. #Diarrhea #Nausea and vomiting #Headache #Hiatal hernia ? Patient has not had any more episodes of diarrhea since admission. Diarrhea panel unremarkable. ? Patient had some epigastric pain, nausea/vomiting this morning. Improved with GI cocktail, Carafate. Has a history of large hiatal hernia. ? Patient does complain of intermittent headaches, Ultram 50 mg every 6 hours as needed and Toradol 30 mg IV ordered. Monitor for toxicity. #Dementia #Diabetes mellitus #Hypothyroidism #COPD #History of DVT ?Restart patient's home medicines atorvastatin 20 mg, gabapentin 300 mg 3 times daily, levothyroxine 75 mcg, memantine 10 mg, metoprolol 50 mg twice daily, pantoprazole 40 mg twice daily Effient 10 mg, aspirin 81 mg, pantoprazole 40 mg twice daily, Remeron 50 mg. Continue Advair inhaler. ?DuoNebs every 6 hours as needed for shortness of breath. ?Hold Jardiance 10 mg due to persistent stress incontinence, urge incontinence. A1c in January 2024 5.9%. Full code Diabetic diet Ambulate as tolerated Lovenox VTE
[2025-04-26] MEDS: MIRTAZAPINE 15 MG TABLET PO (20:04)
[2025-04-26] MEDS: ATORVASTATIN 20MG TABLET 20 MG PO (20:04)
[2025-04-26 20:47] LABS: POC Glucose,Bedside 145 (70-110)
[2025-04-27] VITALS: BP 129/71; PULSE 74; RESP 15; TEMP 36.7; O2SAT 98
[2025-04-27] MEDS: PIPERACILLIN/TAZO 3.375 GM in 0.9 % SODIUM CHLORIDE 50 ML IV ×2 (00:35→06:06)
[2025-04-27 04:00] VITALS: BP 127/74; PULSE 80; RESP 16; TEMP 36.9; O2SAT 94; BMI 39.6
[2025-04-27] MEDS: SUCRALFATE 1GM TABLET 1 GM PO ×4 (06:06→21:03)
[2025-04-27] MEDS: LEVOTHYROXINE 75MCG (0.075MG) TAB 75 MCG PO (06:06)
[2025-04-27 06:22] LABS: POC Glucose,Bedside 133 (70-110)
[2025-04-27 07:39] LABS: Hematocrit 39.0 % (37.0-47.0); Hemoglobin 12.4 g/dL (12.2-16.2); Immature Granulocytes % 0.3 %; Mean Corpuscular HGB Conc 31.8 g/dL (31.8-35.4); Mean Corpuscular Hemoglobin 29.8 pg (27.0-31.2); Mean Corpuscular Volume 93.8 fl (81-99); Nucleated Red Blood Cells % 0 %; Platelet Count 159 K/mm3 (142-424); Red Blood Count 4.16 M/mm3 (4.20-5.40); Red Cell Distribution Width-SD 46.6 fL; White Blood Count 6.7 K/mm3 (4.8-10.8)
[2025-04-27 08:00] VITALS: BP 136/77; PULSE 91; RESP 16; TEMP 36.5; O2SAT 96
[2025-04-27 08:03] LABS: Alanine Aminotransferase 38 U/L (12-78); Albumin Level 3.4 g/dl (3.5-5.0); Albumin/Globulin Ratio 1.1 (1.1-1.8); Alkaline Phosphatase 123 U/L (38-126); Anion Gap 15.9 mEq/L (5-15); Aspartate Amino Transferase 38 U/L (14-36); Bilirubin,Total 0.5 mg/dl (0.2-1.3); Blood Urea Nitrogen 12 mg/dl (7-17); Calcium 7.7 mg/dl (8.4-10.2); Carbon Dioxide 28 mmol/L (22.0-30.0); Chloride 96 mmol/L (98-107); Creatinine Clearance Estimated 79 mL/min (50-200); Creatinine,Serum 0.70 mg/dl (0.52-1.04); Estimated Glomerular Filt Rate 83 ml/min (>60); GFR (African American) 101 ML/MIN (>60); Globulin 3.2 g/dL (1.3-3.2); Glucose 148 mg/dl (74-100); Potassium 3.9 mmoL/L (3.5-5.1); Sodium 136 mmol/L (136-145); Total Protein,Serum 6.6 g/dl (6.3-8.2)
[2025-04-27] MEDS: POLYETHYLENE GLYCOL 3350 17 GM PACKET PO (08:31)
[2025-04-27] MEDS: ASPIRIN EC 81MG TABLET 81 MG PO (08:32)
[2025-04-27] MEDS: GABAPENTIN 300MG CAPSULE 300 MG PO ×3 (08:32→21:03)
[2025-04-27] MEDS: MEMANTINE 10MG TABLET 10 MG PO (08:32)
[2025-04-27] MEDS: PANTOPRAZOLE 40MG TABLET 40 MG PO ×2 (08:32→21:03)
[2025-04-27] MEDS: METOPROLOL SUCCINATE XL 50MG TABLET 50 MG PO ×2 (08:32→21:03)
[2025-04-27] MEDS: PRASUGREL 10MG TAB 10 MG PO (08:32)
[2025-04-27 08:38] LABS: Magnesium 2.2 mg/dl (1.6-2.3)
[2025-04-27 10:58] LABS: POC Glucose,Bedside 153 (70-110)
[2025-04-27 12:00] VITALS: BP 134/51; PULSE 94; RESP 18; TEMP 36.6; O2SAT 94
[2025-04-27] MEDS: AZITHROMYCIN 250MG TABLET 500 MG PO (15:55)
[2025-04-27 16:00] VITALS: BP 139/70; PULSE 85; RESP 16; TEMP 36.6; O2SAT 95
[2025-04-27] MEDS: humaLOG 100 UNITS/ML 10ML VIAL (SSI) SUBCUT (17:20)
--- NOTE | 2025-04-27 17:47 | PC.NURSE ---
patient is a/ox4, currently on 1 LNC O2 sats above 90%. patient has used BSC with stand by assist. FSBS was 161 at 1630 treated per SSI. patient tolerating diet well. no c/o nausea or abd pain this shift. family currently at bedside, call light within reach, no further requests at this time.
--- NOTE | 2025-04-27 18:23 | EXP.PN ---
Subjective *Date: 04/27/25 *Time: 18:23 Interval history: Patient feeling much better today, granddaughter unable to pick her up today as she is in [place]. Will pick her up for [place] in the morning. Continue ceftriaxone, azithromycin for UTI, pneumonia. Exam Data for Last 24 hours Vital signs and Labs for Last 24 Hours: Temp Pulse Resp BP Pulse Ox O2 Del Method O2 Flow Rate 97.9 F 85 16 139/70 95 Nasal Cannula 1 04/27/25 16:00 04/27/25 16:00 04/27/25 16:00 04/27/25 16:00 04/27/25 16:00 04/27/25 17:00 04/27/25 17:00 Laboratory Results - last 24 hr 04/26/25 20:03: POC Glucose 145 H 04/27/25 06:10: POC Glucose 133 H 04/27/25 06:45: WBC 6.7 D, RBC 4.16 L, Hgb 12.4, Hct 39.0, MCV 93.8, MCH 29.8, MCHC 31.8, RDW 13.5, Plt Count 159, MPV 10.0, Neut % (Auto) 45.7, Lymph % (Auto) 29.2, [place] % (Auto) 22.0 H, Eos % (Auto) 2.3, Baso % (Auto) 0.5, Neut # (Auto) 3.1, Lymph # (Auto) 1.9, [place] # (Auto) 1.5 H, Eos # (Auto) 0.2, Baso # (Auto) 0.0, Sodium 136, Potassium 3.9, Chloride 96 L, Carbon Dioxide 28, Anion Gap 15.9 H, BUN 12, Creatinine 0.70, Estimated Creat Clear 79, Estimated GFR 83, Est GFR ( Amer) 101, Glucose 148 H, Calcium 7.7 L, Magnesium 2.2 D, Total Bilirubin 0.5, AST 38 H, ALT 38, Alkaline Phosphatase 123, Total Protein 6.6, Albumin 3.4 L D, Globulin 3.2, Albumin/Globulin Ratio 1.1 04/27/25 10:46: POC Glucose 153 H I & O for Last 24 hours: Intake & Output 04/24/25 04/25/25 04/26/25 04/27/25 23:59 23:59 23:59 23:59 Intake Total 1146 / 1386 860 / 1155 705 / 705 Output Total 500 / 1100 2850 / 3400 1850 / 2450 3000 / 3000 Balance -500 / -810 -1704 / -2013 -990 / -1295 -2295 / -2295 Weight 91.172 kg 91.172 kg 91.626 kg 91.626 kg Microbiology Reports for the Last 24 Hours: Microbiology 04/24/25 18:57 Blood Blood Culture - Preliminary NO GROWTH AFTER 48 HOURS Constitutional Constitutional: no acute distress *Routine HEENT Exam Head: Present normocephalic Eye: Present EOMI and PERRL ENT: Present mucous membranes moist *Routine Neck Exam Neck: Present supple; Absent lymphadenopathy *Routine Respiratory Exam Respiratory: Present CTA bilaterally *Routine Cardiovascular Exam Cardiovascular: Present RRR *Routine Abdominal Exam Abdominal: Present soft, normoactive bowel sounds and tenderness *Routine Extremities Exam Extremities: Absent cyanosis, clubbing or edema *Routine Skin Exam Skin: Present warm; Absent rash *Routine Neurological Exam Neurological: Present alert and oriented X3 Assessment and Plan *Assessment and plan (1) Sepsis: Status: Acute Category: Medical Code(s): A41.9 - Sepsis, unspecified organism (2) Bacteremia: Status: Acute Category: Medical Code(s): R78.81 - Bacteremia (3) UTI (urinary tract infection): Status: Acute Category: Medical Code(s): N39.0 - Urinary tract infection, site not specified (4) Fever: Status: Acute Category: Medical Code(s): R50.9 - Fever, unspecified Plan: Continue antipyretics for fever Vital signs every 4 hours (5) Diarrhea: Status: Acute Category: Medical Code(s): R19.7 - Diarrhea, unspecified Plan: Diarrhea panel pending Continue NS at 100 mL an hour (6) Nausea & vomiting: Status: Acute Category: Medical Code(s): R11.2 - Nausea with vomiting, unspecified (7) Headache: Status: Acute Category: Medical Code(s): R51.9 - Headache, unspecified (8) Dementia: Status: Acute Category: Medical Code(s): F03.90 - Unspecified dementia, unspecified severity, without behavioral disturbance, psychotic disturbance, mood disturbance, and anxiety (9) Diabetes mellitus: Status: Acute Category: Medical Code(s): E11.9 - Type 2 diabetes mellitus without complications (10) Hypothyroidism: Status: Acute Category: Medical Code(s): E03.9 - Hypothyroidism, unspecified (11) COPD (chronic obstructive pulmonary disease): Status: Acute Qualifiers: COPD type: unspecified COPD Qualified Code(s): J44.9 - Chronic obstructive pulmonary disease, unspecified Category: Medical Code(s): J44.9 - Chronic obstructive pulmonary disease, unspecified Plan Ms. Castellanos is a 69-year-old female who was admitted to the hospital via the emergency room after complaints of nausea, vomiting, diarrhea, body aches, fever and foul-smelling urine. She states that she has had multiple urinary tract infections in the past that she has had to be admitted for due to becoming septic. Workup included CBC, CMP, CRP, urinalysis, VBG. No leukocytosis or electrolyte abnormalities noted, kidney function within normal limits, CRP elevated at 71.3. Urinalysis positive for nitrates, urine WBC 50-100, urine bacteria 4+. Patient's abdomen/pelvis CT showed enteritis. Patient also noted to be slightly hypoxic oxygen saturation 91% on room air, 2 L nasal cannula applied. Blood cultures were obtained in the emergency room and hospital medicine was consulted for admission for urosepsis. #Sepsis #UTI #Community-acquired pneumonia #Bacteremia #Fever ? Patient was found to be tachycardic and febrile in the emergency room. She is now feeling better, heart rate in the 90s, afebrile. ? UA grossly abnormal, urine culture growing E. coli sensitive to Zosyn and ceftriaxone. Blood cultures positive for E. coli. Patient does have a history of bowel bladder stimulator placement. ? CT chest also shows pneumonia, new 2 L oxygen requirement. ? Patient had some epigastric pain, nausea/vomiting during hospital course. Improved with GI cocktail, Carafate. Has a history of hiatal hernia. ? Continue ceftriaxone and azithromycin. Will need a total of 10 days of antibiotics for bacteremia. ? Patient's granddaughter is unable to pickling machine operator today will be able to pick her up first in the morning as she is in [place]. ? PT/OT consulted, recommending home with home health and 24-hour assistance. #Diarrhea #Nausea and vomiting #Headache #Hiatal hernia ? Patient has had intermittent diarrhea since admission, but not significant. Diarrhea panel unremarkable. ? Patient had some epigastric pain, nausea/vomiting hospital course. Improved with GI cocktail, Carafate. Has a history of large hiatal hernia. Carafate scheduled and patient has been asymptomatic since. ? Patient does complain of intermittent headaches, Ultram 50 mg every 6 hours as needed and Toradol 30 mg IV ordered. Monitor for toxicity. #Dementia #Diabetes mellitus #Hypothyroidism #COPD #History of DVT ? Restart patient's home medicines atorvastatin 20 mg, gabapentin 300 mg 3 times daily, levothyroxine 75 mcg, memantine 10 mg, metoprolol 50 mg twice daily, pantoprazole 40 mg twice daily Effient 10 mg, aspirin 81 mg, pantoprazole 40 mg twice daily, Remeron 50 mg. Continue Advair inhaler. ? DuoNebs every 6 hours as needed for shortness of breath. ? Hold Jardiance 10 mg due to persistent stress incontinence, urge incontinence. A1c in January 2024 5.9%. Full code Diabetic diet Ambulate as tolerated Lovenox VTE
[2025-04-27 20:00] VITALS: BP 150/67; PULSE 92; RESP 17; TEMP 36.8; O2SAT 94
[2025-04-27 20:05] LABS: POC Glucose,Bedside 157 (70-110)
[2025-04-27] MEDS: MIRTAZAPINE 15 MG TABLET PO (21:03)
[2025-04-27] MEDS: ATORVASTATIN 20MG TABLET 20 MG PO (21:03)
[2025-04-28] VITALS: BP 150/82; PULSE 90; RESP 15; TEMP 37; O2SAT 95
[2025-04-28 04:00] VITALS: BP 152/66; PULSE 90; RESP 19; TEMP 37; O2SAT 95; BMI 39.6
[2025-04-28] MEDS: SUCRALFATE 1GM TABLET 1 GM PO (06:11)
[2025-04-28] MEDS: LEVOTHYROXINE 75MCG (0.075MG) TAB 75 MCG PO (06:11)
[2025-04-28 06:27] VITALS: O2SAT 95
[2025-04-28 07:35] LABS: Hematocrit 38.5 % (37.0-47.0); Hemoglobin 12.5 g/dL (12.2-16.2); Immature Granulocytes % 0.5 %; Mean Corpuscular HGB Conc 32.5 g/dL (31.8-35.4); Mean Corpuscular Hemoglobin 29.8 pg (27.0-31.2); Mean Corpuscular Volume 91.7 fl (81-99); Nucleated Red Blood Cells % 0 %; Platelet Count 194 K/mm3 (142-424); Red Blood Count 4.20 M/mm3 (4.20-5.40); Red Cell Distribution Width-SD 45.1 fL; White Blood Count 6.5 K/mm3 (4.8-10.8)
[2025-04-28 07:47] LABS: Alanine Aminotransferase 39 U/L (12-78); Albumin Level 3.9 g/dl (3.5-5.0); Albumin/Globulin Ratio 1.1 (1.1-1.8); Alkaline Phosphatase 121 U/L (38-126); Anion Gap 15.7 mEq/L (5-15); Aspartate Amino Transferase 37 U/L (14-36); Bilirubin,Total 0.4 mg/dl (0.2-1.3); Blood Urea Nitrogen 12 mg/dl (7-17); Calcium 9.3 mg/dl (8.4-10.2); Carbon Dioxide 30 mmol/L (22.0-30.0); Chloride 97 mmol/L (98-107); Creatinine Clearance Estimated 79 mL/min (50-200); Creatinine,Serum 0.60 mg/dl (0.52-1.04); Estimated Glomerular Filt Rate 100 ml/min (>60); GFR (African American) 121 ML/MIN (>60); Globulin 3.7 g/dL (1.3-3.2); Glucose 191 mg/dl (74-100); Potassium 3.7 mmoL/L (3.5-5.1); Sodium 139 mmol/L (136-145); Total Protein,Serum 7.6 g/dl (6.3-8.2)
--- NOTE | 2025-04-28 07:59 | PC.NURSE ---
pt has ambulated around the room on RA for about 15 mins, o2 sats have remained above 92%.
[2025-04-28 08:00] VITALS: BP 151/79; PULSE 89; RESP 18; TEMP 36.6; O2SAT 93
[2025-04-28] MEDS: ASPIRIN EC 81MG TABLET 81 MG PO (09:09)
[2025-04-28] MEDS: PANTOPRAZOLE 40MG TABLET 40 MG PO (09:09)
[2025-04-28] MEDS: PRASUGREL 10MG TAB 10 MG PO (09:09)
[2025-04-28] MEDS: MEMANTINE 10MG TABLET 10 MG PO (09:09)
[2025-04-28] MEDS: METOPROLOL SUCCINATE XL 50MG TABLET 50 MG PO (09:10)
[2025-04-28] MEDS: GABAPENTIN 300MG CAPSULE 300 MG PO (09:15)
--- NOTE | 2025-04-28 09:32 | SW/DCPLANNER ---
Spoke with patient regarding once she is medically stable and ready for discharge if she would be interested in home health services. Patient stated that she is going to go and live with her granddaughter who is a [employer]. Patient stated that her granddaughter will care for her. Gabe Powell
--- NOTE | 2025-04-28 09:52 | EXP.DC.SUM ---
General Admission date:: 04/24/25 Discharge date: 04/28/25 HPI HPI HPI: Ms. Castellanos is a 69-year-old female presents ER with complaints of abdominal pain. Patient's past medical history of diabetes mellitus, hypertension, asthma, sleep apnea, hypothyroidism, anxiety, acid reflux disease, COPD, dementia, hyperlipidemia and overactive bladder. Patient reports 2 to 3-week history of foul-smelling urine. She denies hematuria, frequency, urgency, or dysuria. She states this afternoon she started having abdominal pain, nausea, arthralgias fever, and chills. She states her temperature was 101. She also reports dizziness, lightheadedness, headache and diarrhea. She reports 3 loose bowel movements daily in the last 2 to 3 weeks. She reports that her headache is a 10 out of 10. She states it feels like one of her migraine headaches. Patient denies cough, congestion, runny nose, dyspnea, chest pain, nausea, vomiting, constipation, or syncope. Patient states she uses supplemental oxyge as needed at home. Hospital Course Hospital Course Hospital Course: Ms. Castellanos is a 69-year-old female who was admitted to the hospital via the emergency room after complaints of nausea, vomiting, diarrhea, body aches, fever and foul-smelling urine. She states that she has had multiple urinary tract infections in the past that she has had to be admitted for due to becoming septic. Workup included CBC, CMP, CRP, urinalysis, VBG. No leukocytosis or electrolyte abnormalities noted, kidney function within normal limits, CRP elevated at 71.3. Urinalysis positive for nitrates, urine WBC 50-100, urine bacteria 4+. Patient's abdomen/pelvis CT showed enteritis. Patient also noted to be slightly hypoxic oxygen saturation 91% on room air, 2 L nasal cannula applied. Blood cultures were obtained in the emergency room and hospital medicine was consulted for admission for urosepsis. #Sepsis #UTI #Community-acquired pneumonia #Bacteremia #Fever ? Patient was found to be tachycardic and febrile in the emergency room. She is now feeling better, heart rate in the 90s, afebrile. ? UA grossly abnormal, urine culture growing E. coli sensitive to Zosyn and ceftriaxone. Blood cultures positive for E. coli. Patient does have a history of bowel bladder stimulator placement. Patient received IV Zosyn, ceftriaxone, azithromycin in the hospital setting. She received a total of 5 days of azithromycin. She also received a total of 5 days of ceftriaxone, will continue cefdinir 300 mg twice daily for 2 more days for a total of 7 days of treatment. ? CT chest also shows pneumonia, new 2 L oxygen requirement. Patient was weaned from O2 during admission maintain O2 saturation of 92% on room air while ambulating. Repeat chest x-ray day of discharge shows improving pneumonia, lungs CTA bilaterally. ? Patient had some epigastric pain, nausea/vomiting during hospital course. Improved with GI cocktail, Carafate. Has a history of hiatal hernia. Will send in Carafate ACHS as needed. ? Patient's granddaughter is able to care for her and helps her with transportation and ADLs as needed. ? PT/OT consulted, recommending home with home health and 24-hour assistance. Patient declined home health at this time. #Diarrhea #Nausea and vomiting #Headache #Hiatal hernia ? Patient has had intermittent diarrhea since admission, but not significant. Diarrhea panel unremarkable. ? Patient had some epigastric pain, nausea/vomiting hospital course. Improved with GI cocktail, Carafate. #Dementia #Diabetes mellitus #Hypothyroidism #COPD #History of DVT ? Continue at discharge patient's home medicines atorvastatin 20 mg, gabapentin 300 mg 3 times daily, levothyroxine 75 mcg, memantine 10 mg, metoprolol 50 mg twice daily, pantoprazole 40 mg twice daily Effient 10 mg, aspirin 81 mg, pantoprazole 40 mg twice daily, Remeron 50 mg. Continue Advair inhaler. ? Hold Jardiance 10 mg due to persistent stress incontinence, urge incontinence. A1c in January 2024 5.9%. Follow-up with PCP for continued monitoring. Exam Data for Last 24 hours Vital signs and Labs for Last 24 Hours: Temp Pulse Resp BP Pulse Ox O2 Del Method O2 Flow Rate 97.9 F 89 18 151/79 H 93 L Room Air 1 04/28/25 08:00 04/28/25 08:00 04/28/25 08:00 04/28/25 08:00 04/28/25 08:00 04/28/25 08:00 04/28/25 06:37 Laboratory Results - last 24 hr 04/27/25 10:46: POC Glucose 153 H 04/27/25 19:57: POC Glucose 157 H 04/28/25 06:47: WBC 6.5, RBC 4.20, Hgb 12.5, Hct 38.5, MCV 91.7, MCH 29.8, MCHC 32.5, RDW 13.3, Plt Count 194, MPV 10.2, Neut % (Auto) 37.7, Lymph % (Auto) 37.6, [place] % (Auto) 19.8 H, Eos % (Auto) 3.9, Baso % (Auto) 0.5, Neut # (Auto) 2.5, Lymph # (Auto) 2.4, [place] # (Auto) 1.3 H, Eos # (Auto) 0.3, Baso # (Auto) 0.0, Sodium 139, Potassium 3.7, Chloride 97 L, Carbon Dioxide 30, Anion Gap 15.7 H, BUN 12, Creatinine 0.60, Estimated Creat Clear 79, Estimated GFR 100, Est GFR ( Amer) 121, Glucose 191 H, Calcium 9.3, Total Bilirubin 0.4, AST 37 H, ALT 39, Alkaline Phosphatase 121, Total Protein 7.6, Albumin 3.9 D, Globulin 3.7 H, Albumin/Globulin Ratio 1.1 I & O for Last 24 hours: Intake & Output 04/25/25 04/26/25 04/27/25 04/28/25 23:59 23:59 23:59 23:59 Intake Total 1146 / 1386 860 / 1155 705 / 1185 820 / 820 Output Total 2850 / 3400 1850 / 2450 3200 / 3500 1100 / 1100 Balance -1704 / -2014 -990 / -1295 -2495 / -2315 -280 / -280 Weight 91.172 kg 91.626 kg 91.626 kg 91.626 kg Microbiology Reports for the Last 24 Hours: Microbiology 04/24/25 19:23 Blood Blood Culture - Final Escherichia coli Constitutional Constitutional: no acute distress, obese, chronically ill appearing and combative *Routine HEENT Exam Head: Present normocephalic Eye: Present EOMI ENT: Present mucous membranes moist *Routine Neck Exam Neck: Present supple and full ROM; Absent JVD *Routine Respiratory Exam Respiratory: Present CTA bilaterally, normal respiratory effort, able to speak in complete sentences and symmetric chest movement; Absent wheezes or crackles *Routine Cardiovascular Exam Cardiovascular: Present RRR *Routine Abdominal Exam Abdominal: Present soft and normoactive bowel sounds; Absent tenderness *Routine Rectal Exam Patient deferred: visual exam *Routine Exam Patient deferred: external exam *Routine Extremities Exam Extremities: Present normal capillary refill; Absent edema *Routine Skin Exam Skin: Present intact and dry *Routine Neurological Exam Neurological: Present alert and oriented X3 Results Data Completed and Pending Labs on day of discharge: Labs from last 24 hours 04/28/25 04/27/25 04/27/25 06:47 19:57 10:46 WBC 6.5 RBC 4.20 Hgb 12.5 Hct 38.5 MCV 91.7 MCH 29.8 MCHC 32.5 RDW 13.3 Plt Count 194 MPV 10.2 Neut % (Auto) 37.7 Lymph % (Auto) 37.6 [place] % (Auto) 19.8 H Eos % (Auto) 3.9 Baso % (Auto) 0.5 Neut # (Auto) 2.5 Lymph # (Auto) 2.4 [place] # (Auto) 1.3 H Eos # (Auto) 0.3 Baso # (Auto) 0.0 Sodium 139 Potassium 3.7 Chloride 97 L Carbon Dioxide 30 Anion Gap 15.7 H BUN 12 Creatinine 0.60 Estimated Creat Clear 79 Estimated GFR 100 Est GFR ( Amer) 121 Glucose 191 H POC Glucose 157 H 153 H Calcium 9.3 Total Bilirubin 0.4 AST 37 H ALT 39 Alkaline Phosphatase 121 Total Protein 7.6 Albumin 3.9 D Globulin 3.7 H Albumin/Globulin Ratio 1.1 Preliminary micro results at discharge 04/24/25 18:57 Blood Culture - Preliminary Blood NO GROWTH AFTER 48 HOURS DS: Diagnosis Discharge Diagnosis (1) Sepsis: Status: Acute Code(s): A41.9 - Sepsis, unspecified organism (2) Bacteremia: Status: Acute Code(s): R78.81 - Bacteremia (3) UTI (urinary tract infection): Status: Acute Code(s): N39.0 - Urinary tract infection, site not specified (4) Fever: Status: Acute Code(s): R50.9 - Fever, unspecified (5) Diarrhea: Status: Acute Code(s): R19.7 - Diarrhea, unspecified (6) Nausea & vomiting: Status: Acute Code(s): R11.2 - Nausea with vomiting, unspecified (7) Headache: Status: Acute Code(s): R51.9 - Headache, unspecified (8) Dementia: Status: Acute Code(s): F03.90 - Unspecified dementia, unspecified severity, without behavioral disturbance, psychotic disturbance, mood disturbance, and anxiety (9) Diabetes mellitus: Status: Acute Code(s): E11.9 - Type 2 diabetes mellitus without complications (10) Hypothyroidism: Status: Acute Code(s): E03.9 - Hypothyroidism, unspecified (11) COPD (chronic obstructive pulmonary disease): Status: Acute Code(s): J44.9 - Chronic obstructive pulmonary disease, unspecified Qualifiers: COPD type: unspecified COPD Qualified Code(s): J44.9 - Chronic obstructive pulmonary disease, unspecified Meds Home Medications and Allergies Home Medications ?Medication ?Instructions ?Recorded ?Confirmed ?Type alendronate 70 mg tablet 70 mg PO WEEKLY 09/16/24 04/25/25 History fluticasone propionate 50 2 spray intranasal DAILY 09/16/24 04/25/25 History mcg/actuation nasal spray,suspension pantoprazole 40 mg tablet,delayed 40 mg PO BID 10/03/24 04/25/25 History release prasugrel HCl 10 mg tablet 10 mg PO DAILY 30 days #30 tabs 10/07/24 04/25/25 Rx (Effient) magnesium oxide 500 mg PO DAILY 12/16/24 04/25/25 History aspirin 81 mg tablet,delayed 81 mg PO DAILY 12/17/24 04/25/25 History release cholecalciferol (vitamin D3) 125 125 mcg PO DAILY 01/13/25 04/25/25 History mcg (5,000 unit) capsule mecobalamin (vitamin B12) 500 mcg 500 mcg PO DAILY 01/13/25 04/25/25 History chewable tablet nitroglycerin 0.4 mg sublingual 0.4 mg sublingual Q5-15M PRN Chest 01/13/25 04/25/25 History tablet Pain fluticasone 100 mcg-salmeterol 50 1 ea inhalation BID 01/20/25 04/25/25 History mcg/dose blistr powdr for inhalation gabapentin 300 mg capsule 300 mg PO TID #90 caps 02/10/25 04/25/25 Rx meloxicam 15 mg tablet 15 mg PO DAILY #30 tabs 05/02/25 07/11/25 Rx mirtazapine 15 mg tablet 15 mg PO HS #30 tabs 02/14/25 04/25/25 Rx atorvastatin 20 mg tablet 20 mg PO HS #30 tabs 02/24/25 04/25/25 Rx levothyroxine 75 mcg tablet 75 mcg PO DAILY #90 tabs 02/28/25 04/25/25 Rx potassium chloride 10 mEq 10 meq PO DAILY #90 tabs 03/03/25 04/25/25 Rx tablet,extended release(part/cryst) memantine 10 mg tablet 10 mg PO DAILY #90 tabs 03/07/25 04/25/25 Rx chlorthalidone 25 mg tablet 25 mg PO DAILY PRN edema #30 tabs 03/26/25 04/25/25 Rx metoprolol succinate 50 mg 50 mg PO BID 04/25/25 04/25/25 History tablet,extended release 24 hr sucralfate 1 gram tablet 1 g PO ACHS 04/25/25 04/25/25 History cefdinir 300 mg capsule 300 mg PO BID #4 caps 04/28/25 Rx sucralfate 1 gram tablet 1 g PO ACHS PRN Indigestion 30 04/28/25 Rx days #60 tabs New Prescriptions to Start Prescriptions: Autumn Bravo sucralfate Autumn Foss Allergies Allergy/AdvReac Type Severity Reaction Status Date / Time hydrocodone Allergy Mild Unknown Verified 03/08/25 11:55 allergy reaction acetaminophen (From Allergy Unknown Verified 03/08/25 11:55 Tylenol-Codeine #3) allergy reaction metformin Allergy Unknown Verified 03/08/25 11:55 allergy reaction codeine AdvReac Mild Unknown Verified 03/08/25 11:55 allergy reaction Discharge Plan Disposition Patient Disposition: Home, Self-Care Condition: Fair Discharge Order Discharge Orders: Discharge Order (Routine); Ordered 04/28/25 Ordered By: Autumn Foss Follow up Plan Follow up with: Violeta John APRN [Nurse Practitioner, Family Practice] - 05/05/25 10:20 am Prescriptions/Medication Reconciliation: New cefdinir 300 mg capsule 300 mg PO BID Qty: 4 0RF sucralfate 1 gram Tablet 1 g PO ACHS PRN (Reason: Indigestion) 30 Days Qty: 60 0RF Continued pantoprazole 40 mg tablet,delayed release (DR/EC) 40 mg PO BID Patient Comments: TAKE 1 TABLET BY MOUTH TWICE DAILY nitroglycerin 0.4 mg tablet, sublingual 0.4 mg sublingual Q5-15M PRN (Reason: Chest Pain) Rx Instructions: do not exceed 3 doses per episode cholecalciferol (vitamin D3) 125 mcg (5,000 unit) capsule 125 mcg PO DAILY mecobalamin (vitamin B12) 500 mcg tablet,chewable 500 mcg PO DAILY gabapentin 300 mg capsule 300 mg PO TID Qty: 90 3RF fluticasone propion-salmeterol 100-50 mcg/dose blister with device 1 ea inhalation BID Patient Comments: INHALE 1 PUFF BY MOUTH TWICE DAILY mirtazapine 15 mg tablet 15 mg PO HS Qty: 30 2RF meloxicam 15 mg tablet 15 mg PO DAILY Qty: 30 2RF atorvastatin 20 mg tablet 20 mg PO HS Qty: 30 1RF levothyroxine 75 mcg tablet 75 mcg PO DAILY Qty: 90 0RF potassium chloride 10 mEq tablet,ER particles/crystals 10 meq PO DAILY Qty: 90 0RF memantine 10 mg tablet 10 mg PO DAILY Qty: 90 0RF chlorthalidone 25 mg tablet 25 mg PO DAILY PRN (Reason: edema) Qty: 30 2RF alendronate 70 mg tablet 70 mg PO WEEKLY Patient Comments: TAKE 1 TABLET BY MOUTH EVERY 7 DAYS fluticasone propionate 50 mcg/actuation spray,suspension 2 spray INTRANASAL DAILY magnesium oxide 500 mg magnesium tablet 500 mg PO DAILY Rx Instructions: TAKE 1 TABLET BY MOUTH ONCE DAILY aspirin 81 mg tablet,delayed release (DR/EC) 81 mg PO DAILY Patient Comments: TAKE 1 TABLET BY MOUTH DAILY metoprolol succinate 50 mg tablet extended release 24 hr 50 mg PO BID sucralfate 1 gram tablet 1 g PO ACHS prasugrel HCl [Effient] 10 mg Tablet 10 mg PO DAILY 30 Days Qty: 30 6RF Discontinued Jardiance 10 mg tablet 10 mg PO DAILY Qty: 90 0RF Problem Reconciliation Problems Reviewed?: Yes Patient Discharge Instructions ACTIVITY: Continue current activity DIET: continue same diet Patient Instructions: DI for Urinary Tract Infection (UTI), DI for Sepsis -- Adult, DI for Hypomagnesemia, DI for Bacteremia-Adult, Stop Light Pneumonia, Stop Light COPD Print Language: [place]ian Providers Primary Care Provider: Reza Panchal Admhoney Provider: Ricky Watts Attending Provider: Ricky Watts
--- NOTE | 2025-04-28 10:18 | XR_ITS ---
PROCEDURE INFORMATION: Exam: XR Chest Exam date and time: 04/28/2025 11:18 AM Age: 69 years old Clinical indication: Condition or disease; Lung condition and disease; Pneumonia; Additional info: Pna TECHNIQUE: Imaging protocol: Radiologic exam of the chest. Views: 1 view. COMPARISON: CT CHEST WO CON 04/26/2025 8:10 AM FINDINGS: Lungs: There is poor ventilation of the lungs, with perihilar vascular crowding and a diffuse increase in pulmonary parenchymal density. Streaky airspace opacities in lower lobes could be attributed to atelectasis versus developing pneumonia/aspiration in the appropriate clinical context. Pleural spaces: Unremarkable. No pleural effusion. No pneumothorax. Heart/Mediastinum: Unremarkable. No cardiomegaly. Bones/joints: Unremarkable. IMPRESSION: Streaky airspace opacities in lower lobes could be attributed to atelectasis versus developing pneumonia/aspiration in the appropriate clinical context.
[2025-04-28 10:27] LABS: Magnesium 1.5 mg/dl (1.6-2.3)
[2025-04-28 12:08] LABS: POC Glucose,Bedside 201 (70-110)
--- NOTE | 2025-04-29 10:39 | SW/DCPLANNER ---
Spoke with patient's granddaughter on the phone. Patient's granddaughter stated that patient is doing good. Patient's granddaughter stated that patient is aware of her upcoming appointment. Patient's granddaughter stated that she was able to picker packer her new medicine from clinic pharmacy. Patient's granddaughter stated that they have no concerns or questions at this time. Gabe Powell
[2025-04-29 12:36] LABS: POC Glucose,Bedside 142 (70-110)
[2025-04-29 12:37] LABS: POC Glucose,Bedside 161 (70-110)
[2025-04-29 12:39] LABS: POC Glucose,Bedside 132 (70-110)
== END 2025-04-28 13:18 | disposition home or self-care (01) | DRG 689 ==
LOC: ER 18:36 → 2ND 20:41
PROVIDERS: Nurse Practitioner Family; Admitting Provider Student in an Organized Health Care Education/Training Program; Emergency Provider Student in an Organized Health Care Education/Training Program; PCP Family Medicine; Visit Provider Student in an Organized Health Care Education/Training Program
DX: N39.0 Urinary tract infection, site not specified (principal); J18.9 Pneumonia, unspecified organism; E11.9 Type 2 diabetes mellitus without complications; I10 Essential (primary) hypertension; E03.9 Hypothyroidism, unspecified; E78.5 Hyperlipidemia, unspecified; G47.30 Sleep apnea, unspecified; J44.89 Other specified chronic obstructive pulmonary disease; K21.9 Gastro-esophageal reflux disease without esophagitis; K44.9 Diaphragmatic hernia without obstruction or gangrene; F41.9 Anxiety disorder, unspecified; K52.9 Noninfective gastroenteritis and colitis, unspecified; E83.42 Hypomagnesemia; F03.90 Unspecified dementia, unspecified severity, without behavioral disturbance, psychotic disturbance, mood disturbance, and anxiety; B96.20 Unspecified Escherichia coli [E. coli] as the cause of diseases classified elsewhere; Z79.899 Other long term (current) drug therapy; Z79.82 Long term (current) use of aspirin; Z88.8 Allergy status to other drugs, medicaments and biological substances; Z88.5 Allergy status to narcotic agent; Z79.84 Long term (current) use of oral hypoglycemic drugs; Z79.890 Hormone replacement therapy; Z79.51 Long term (current) use of inhaled steroids; Z86.718 Personal history of other venous thrombosis and embolism
CPT/HCPCS: 36415; 71045; 71250; 74018; 74177; 80048; 80053; 81001; 82803; 82962; 83605; 83690; 83735; 84145; 85007; 85025; 85610; 85730; 86140; 87040; 87077; 87086; 87088; 87154; 87186; 87507; 93005; 94640; 94761; 97162; 97166; 97530; J0456; J0696; J1650; J1885; J1956; J2405; J2543; J2550; J2765; J3475; J7030; J7050; J7120; Q9967

== ENCOUNTER 2025-05-02 12:44 | Emergency (ER) | payer MEDICARE, MEDICAID, SELFPAY ==
--- OUTSIDE RECORDS SUMMARY | 2017-02-08 12:08 | XMS_ITS | Encounter Summary ---
Author Organization [facility] Address [address] [place] [address] Care Team Providers Care Private Banker Name Role Phone Lizbeth Ibarra MD Primary Care Provider Unav ailable Encounter Details Date Type Department Care Team (Late st Contact Info) Description 02/08/2017 12:08 PM EDT Hospital Encounter [facility] PULMONARY & CRITICAL CARE MEDICINE [address] [place] [address] Social History Tobacco Use Types Packs/Day Years Used Date Smoking Tobacco: Never Passive Smoke Exposure: Past Smokeless Tobacco: Never Comments: smokes, for 45 years Alcohol Use Standard Drinks/Week Comments No 0 (1 standard drink = 0.6 oz pur e alcohol) [facility] Utilities Answer Date Recorded In the past 12 months has [employer], gas, oil, or water [employer] threatened to shut off services in your [...] or training? Not on file Preferred Language Jordanian 01/28/2025 PHQ-2 Answer Date Recorded Retired PHQ-9: [...] 7:09 AM EDT Dary Chapin RN * [place] Suicide Severity Rating Scale (Screener/Recent Self-Report) Question Answer Date of Assessment Author 6. Suicidal Behavior (Lifetime) No 7:09 AM EDT Dary Benites RN documented as of this encounter Plan of Treatment Upcoming Encounters Date Type Department Care Team (Late st Contact Info) Description 05/06/2025 10:30 AM EDT Office Visit [facility] GASTROENTEROLOGY [address] [facility] [address] [place] [address] Palak Graham PA-C [address] [facility] [address] [place] [address] 05/23/2025 1:30 PM EDT Hospital Encounter [facility] OUTPATIENT ONCOLOGY CANCER CENTER [address] [facility] [address] [address] [place] [address] 06/03/2025 10:40 AM EDT Appointment [facility] [address] [place] [address] 06/05/2025 10:45 AM EDT Office Visit [facility] RHEUMATOLOGY [address] [place] [address] John Sheppard APRN 330 [facility] [address] [place] [address] 07/01/2025 11:00 AM EDT Office Visit [facility] UROLOGY [address] [facility] [address] [place] [address] Brennan Lee MD [address] [facility] [address] [place] [address] 07/31/2025 10:00 AM EDT Office Visit [facility] PULMONARY & CRITICAL CARE MEDICINE [address] [facility] [address] [place] [address] Maxine Gibson, LAND LEASE INFORMATION CLERK [address] [place] [address] documented as of this encounter Goals Goal [...] documented as of this encounter Care Teams Private Banker Relationship Specialty Start Date End Date Lizbeth Ibarra MD PCP - General 06/18/15 07/10/17 documented as of this encounter
--- OUTSIDE RECORDS SUMMARY | 2022-02-25 11:00 | XMS_ITS | Encounter Summary ---
Author Organization [facility] Address [address] [place] [address] Care Team Providers Care Rn Advanced Name Role Phone Johanna Jeffrey MD Primary Care Provider +1- [phone] Reason for Visit * Monitoring (Routine) - Closed Specialty Diagnoses / Procedures Referred By Contkirt holman Referred To Contact Diagnoses Palpitations Dizziness Procedures Mobile Cardiac Outpatient Telemetry Cardiac Event Monitor Tiffany Maier MD [address] [place] [address] Phone: tel: fax: [facility] [address] [facility] [address] [facility] 100 [place] [address] Phone: tel: Referral ID Status Reason Start Date Expiration Date Visits Re quested Visits Authorized [id number] Closed 02/25/2022 02/25/2023 1 1 Encounter Details Date Type Department Care Team ([facility] Contact Info) Description 02/25/2022 11:00 AM EDT Hospital Encounter [facility] CARDIOLOGY [address] [place] [address] Palpitations; Dizziness Social History Tobacco Use Types Packs/Day Years Used Date Smoking Tobacco: Never Passive Smoke Exposure: Past Smokeless Tobacco: Never Comments: smokes, for 45 years Alcohol Use Standard Drinks/Week Comments No 0 (1 standard drink = 0.6 oz pur e alcohol) [facility] Utilities Answer Date Recorded In the past [...] or training? Not on file Preferred Language Northern Irish 01/28/2025 PHQ-2 Answer Date Recorded Retired [...] 7:09 AM EDT Dary Chapin RN * [place] Suicide Severity Rating Scale (Screener/Recent Self-Report) Question Answer Date of Assessment Author 6. Suicidal Behavior (Lifetime) No 7:09 AM EDT Dary Benites RN documented as of this encounter Plan of Treatment Upcoming Encounters Date Type Department Care Team (Late st Contact Info) Description 05/06/2025 10:30 AM EDT Office Visit [facility] GASTROENTEROLOGY [address] [place] [address] Palak Graham PA-C [address] [place] [address] 05/23/2025 1:30 PM EDT Hospital Encounter [facility] OUTPATIENT ONCOLOGY [facility]CER CENTER [address] [place] [address] 06/03/2025 10:40 AM EDT Appointment [facility] [address] [place] [address] 06/05/2025 10:45 AM EDT Office Visit [facility] RHEUMATOLOGY 330 [facility] 100 [place] [address] John Sheppard APRN 330 [facility] 100 [place] [address] 07/01/2025 11:00 AM EDT Office Visit [facility] UROLOGY [address]60 [facility] 502 [place] [address] Brennan Lee MD 1760 [facility] 502 [place], [place] [address] 07/31/2025 10:00 AM EDT Office Visit [facility] PULMONARY & CRITICAL CARE MEDICINE 3000 [facility] 240 [place] [address] Maxine Gibson, RANGE SCIENTIST [address] [place] [address] documented as of this encounter Goals Goal [...] 21 hours and 51 minutes. Total beats: [id number]. Average HR: 83. Min HR: 48. Max [...] documented as of this encounter Care Teams Rn Advanced Relationship Specialty Start Date End Date Johanna Jeffrey MD Mike [address] [address] PCP - General Internal Medicine 10/20/21 08/20/22 documented as of this encounter
--- OUTSIDE RECORDS SUMMARY | 2024-04-23 19:45 | XMS_ITS | Encounter Summary ---
Author Organization [facility] Address [address] [place] [address] Care Team Providers Care Surface Logging Systems Logger Name Role Phone Rafael Pal MD, [place] Primary Care Provider [phone] Reason for Referral * Hospital - Outpatient [...] or More Parameters Ijeoma Payne APRN [address]20 [place] [address] Phone: tel: fax: [facility] [address] [address] Phone: tel: fax: Referral ID Status Reason Start Date Expiration Date Visits Re quested Visits Authorized [id number] Closed 12/19/2023 12/18/2024 1 1 Reason for [...] Polysomnography 4 or More Parameters Ijeoma Payne, DRAG SAWYER [address] [address] Phone: tel: fax: [facility] [address] [address] Phone: tel: fax: Referral ID Status Reason Start Date Expiration Date Visits Re quested Visits Authorized [id number] Closed 12/19/2023 12/18/2024 1 1 Encounter Details Date Type Department Care Team (Late st Contact Info) Description 04/23/2024 7:45 PM EDT Hospital Encounter [facility] [address] [place] [phone] Ijeoma Payne, DRAG SAWYER [address] [place] [address] Dementia, unspecified dementia severity, unspecified dementia type, [...] Recorded In the past 12 months has [employer], gas, oil, or water [employer] threatened to shut off services in your [...] or training? Not on file Preferred Language Sao Tomean 01/28/2025 PHQ-2 Answer Date Recorded Retired PHQ-9: [...] 7:09 AM EDT Dary Chapin RN * [place] Suicide Severity Rating Scale (Screener/Recent Self-Report) Question Answer Date of Assessment Author 6. Suicidal Behavior (Lifetime) No 7:09 AM EDT Dary Benites RN documented as of this encounter Plan of Treatment Upcoming Encounters Date Type Department Care Team (Late st Contact Info) Description 05/06/2025 10:30 AM EDT Office Visit [facility] GASTROENTEROLOGY [address] [place] [address] Palak Graham PADelano [address] [place] [address] 05/23/2025 1:30 PM EDT Hospital Encounter [facility] OUTPATIENT ONCOLOGY CANCER CENTER 1700 [facility] [address] [place] [address] 06/03/2025 10:40 AM EDT Appointment [facility] MINERVA DIALLO [address] [place] [address] 06/05/2025 10:45 AM EDT Office Visit [facility] RHEUMATOLOGY [address] [place] [address] John Sheppard, PARVIZ 330 [facility] 100 [place] [address] 07/01/2025 11:00 AM EDT Office Visit [facility] UROLOGY 1760 [facility] [address] [place] [address] Brennan Lee MD 1760 [facility] 502 [place] [address] 07/31/2025 10:00 AM EDT Office Visit [facility] PULMONARY & CRITICAL CARE MEDICINE 3000 [facility] 240 [place] [address] Maxine Gibson, DRAG SAWYER [address]00 [place] [address] documented as of this encounter Goals Goal [...] agree with the interpretation. Braden To MD, [facility] Pulmonary Critical care and Sleep [...] documented as of this encounter Care Teams Surface Logging Systems Logger Relationship Specialty Start Date End Date Huyen Hall MD [address] [facility] 100 [place] [address] PCP - General Family Medicine 08/21/22 07/25/24 documented as of this encounter
--- OUTSIDE RECORDS SUMMARY | 2025-03-12 09:20 | XMS_ITS | Encounter Summary ---
Author Organization [facility] Address [address] [place] [address] Care Team Providers Care Offset Lithographic Press Setter Name Role Phone Reza Panchal MD Primary Care Provider [phone]- [phone] Reason for Visit * Reason Comments OAB (overactive bladder) Encounter Details Date Type Department Care Team (Late st Contact Info) Description 03/12/2025 9:20 AM EDT Office Visit [facility] UROLOGY [address] [id number] Brennan Lee MD [address] [address] Erythema (Primary Dx) Social History Tobacco Use Types Packs/Day Years Used Date Smoking Tobacco: Never Passive Smoke Exposure: Past Smokeless Tobacco: Never Tobacco Cessation:Counseling Given: No Comments: smokes, for 45 years Alcohol Use Standard Drinks/Week Comments No 0 (1 standard drink = 0.6 oz pur e alcohol) [facility] Utilities Answer Date Recorded In the past 12 months has e electric, gas, oil, or water company [...] or training? Not on file Preferred Language Stateless 01/28/2025 PHQ-2 Answer Date Recorded Retired PHQ-9: [...] - Inhaled Oxygen Concentration - - Weight 86.2 kg (190 lb) 03/12/2025 9:29 AM EDT Height 152.4 cm (5') 03/12/2025 9:29 AM EDT Body Mass Index 37.11 03/12/2025 9:29 AM EDT documented in this encounter Progress Notes * Brennan Lee MD - 03/12/2025 9:20 AM EDT Images from the original note were not included. LUTS Female Office Visit Patient Name: Madison Castellanos : 1955 Chief Complaint: Lower Urinary Tract Symptoms. History of Present Illness: Mrs. Castellanos is a 69 y.o. female with history of lower urinary tract symptoms. Patient presents today for follow-up after placement of SNS device. Overall she is doing well. Denies pain or discomfort associated with her incision site. She is reporting mild erythema. Subjective Review of System: Review of Systems Genitourinary: Negative for decreased urine volume, difficulty urinating, dysuria, enuresis, flank pain, frequency, hematuria and urgency. I have reviewed the ROS documented by my clinical staff, updated appropriate and I agree. Brennan Lee MD Past 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: Past 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: Diagnosis Date Acute deep vein thrombosis (DVT) of left peroneal vein 06/29/2020 Asthma Background retinopathy due to secondary diabetes 02/11/2021 Dr Hatch Bursitis of left hip Coronary artery disease COVID-19 with pulmonary comorbidity Dementia 2021 Depression Diabetes mellitus type 2 in obese 05/13/2019 Diverticulosis Foot pain Fungus infection right eye GERD (gastroesophageal reflux disease) Goiter 1978 Hearing aid worn Heart attack 2009 History of transfusion denies any transfusion reactions Hyperlipidemia Hypertension Hypothyroidism Stable Migraine 10/12/2016 MVP (mitral valve prolapse) 10/12/2016 Nosebleed 01/12/2021 left side, transfused 1 unit PRBC Obesity Osteoarthritis 10/12/2016 Palpitations 10/12/2016 PONV (postoperative nausea and vomiting) Psoriasis Rheumatoid arthritis Shingles Sleep apnea to receive CPAP machine on 01/31/25 Upper airway cough syndrome 05/18/2023 Urinary incontinence Urinary tract infection sepsis in december 2024 from UTI Wears glasses Past Surgical History: Past Surgical History: Procedure Laterality Date CARDIAC CATHETERIZATION 1 cardiac stent CATARACT EXTRACTION Bilateral CHOLECYSTECTOMY COLONOSCOPY 07/14/2023 Dr Randolph, diverticulosis and hemorrhoid ENDOSCOPY x2 ESOPHAGOSCOPY / EGD 05/09/2017 Dr Mojica INTERSTIM PERC TEST Bilateral 02/04/2025 Procedure: INTERSTIM BILATERAL PERC TEST; Surgeon: Brennan Lee MD; Location: [facility]; Service: Urology; Laterality: Bilateral; INTERSTIM PLACEMENT N/A 02/20/2025 Procedure: INTERSTIM STAGES 1 AND 2 LEAD AND GENERATOR PLACEMENT; Surgeon: Brennan Lee MD; Location: [facility]; Service: Urology; Laterality: N/A; LARYNGOSCOPY 05/21/2019 Dr Andrade, mild erythema c/w reflux JACQUI FUNDOPLICATION 05/21/2011 Jacqui fundoplication, Justin Nelson MD, 05/21/2011 REPLACEMENT TOTAL KNEE Left 06/15/2022 [facility] SPINAL CORD STIMULATOR IMPLANT 02/2021 SPINAL CORD STIMULATOR REMOVAL TUBAL ABDOMINAL LIGATION UMBILICAL HERNIA REPAIR VENTRAL HERNIA REPAIR Medications: Current Outpatient Medications: acetaminophen (TYLENOL) 500 MG tablet, Take 1 tablet by mouth Every 6 (Six) Hours As Needed for Mild Pain., Disp: , Rfl: albuterol sulfate HFA 108 (90 Base) MCG/ACT inhaler, Inhale 2 puffs Every 4 (Four) Hours As Needed for Wheezing or Shortness of Air., Disp: 18 g, Rfl: 6 alendronate (FOSAMAX) 70 MG tablet, Take 1 tablet by mouth Every 7 (Seven) Days., Disp: 4 tablet, Rfl: 6 amLODIPine (NORVASC) 2.5 MG tablet, Take 1 tablet by mouth Daily. (Patient taking differently: Take1 tablet by mouth As Needed.), Disp: 30 tablet, Rfl: 2 Aspirin Low Dose 81 MG EC tablet, TAKE 1 TABLET BY MOUTH DAILY, Disp: 100 tablet, Rfl: 2 atorvastatin (LIPITOR) 20 MG tablet, TAKE 1 TABLET BY MOUTH DAILY, Disp: 90 tablet, Rfl: 2 BD Pen Needle Reyna 2nd Gen 32G X 4 MM misc, USE 1 NEEDLE THREE TIMES DAILY DIRECTED, Disp: , Rfl: Cholecalciferol 25 MCG (1000 UT) tablet, Take 2 tablets by mouth Daily., Disp: , Rfl: Diclofenac Sodium (VOLTAREN) 1 % gel gel, Apply topically to the appropriate area as directed 4 (Four) Times a Day. Apply 4 grams topically to the affected area four times daily, Disp: 300 g, Rfl: 4 fluticasone (FLONASE) 50 MCG/ACT nasal spray, Administer 2 sprays into the nostril(s) as directed by provider Daily., Disp: 33.3 g, Rfl: 3 Fluticasone-Salmeterol (ADVAIR/WIXELA) 100-50 MCG/ACT DISKUS, Inhale 1 puff 2 (Two) Times a Day., Disp: 180 each, Rfl: 3 gabapentin (NEURONTIN) 100 MG capsule, TAKE 2 CAPSULES BY MOUTH THREE TIMES DAILY (Patient taking differently: Take 1 capsule by mouth 3 (Three) Times a Day.), Disp: 180 capsule, Rfl: 1 glucose blood test strip, Use to check blood sugar daily. E11.319, Disp: 50 each, Rfl: 12 glucose monitor monitoring kit, Use to check blood sugar daily. E11.319, Disp: 1 each, Rfl: 0 Golimumab (SIMPONI ARIA IV), Infuse into a venous catheter Every 8 (Eight) Weeks., Disp: , Rfl: hydrOXYzine (ATARAX) 10 MG tablet, TAKE 1 TABLET BY MOUTH FOUR TIMES DAILY NEEDED FOR NERVES, Disp: , Rfl: Jardiance 10 MG tablet tablet, TAKE 1 TABLET BY MOUTH DAILY, Disp: 30 tablet, Rfl: 2 Lancets 30G misc, Use to check blood sugar daily. ED 11.319, Disp: 100 each, Rfl: 4 levothyroxine (SYNTHROID, LEVOTHROID) 75 MCG tablet, Take 1 tablet by mouth Daily., Disp: 30 tablet, Rfl: 5 Magnesium 250 MG tablet, Take 2 tablets by mouth Daily., Disp: , Rfl: meloxicam (MOBIC) 15 MG tablet, Take 1 tablet by mouth Daily As Needed for Mild Pain., Disp: 30 tablet, Rfl: 5 memantine (Namenda) 10 MG tablet, Take 1 tablet by mouth 2 (Two) Times a Day. (Patient taking differently: Take 1 tablet by mouth Daily.), Disp: 60 tablet, Rfl: 3 metoprolol succinate XL (TOPROL-XL) 50 MG 24 hr tablet, Take 1 tablet by mouth Every 12 (Twelve) Hours., Disp: , Rfl: mirtazapine (Remeron) 15 MG tablet, Take 1 tablet by mouth Every Night., Disp: 90 tablet, Rfl: 1 montelukast (SINGULAIR) 10 MG tablet, Take 1 tablet by mouth Daily., Disp: 90 tablet, Rfl: 3 dxdihizx-smodffyam-kavxlvtmqisycnawdr (POLYDEX) 3.5-81390-9.1 ointment ophthalmic ointment, APPLY SMALL AMOUNT INSIDE RIGHT EYE TWICE DAILY UNTIL NEXT APPT, Disp: , Rfl: nitroglycerin (NITROSTAT) 0.4 MG SL tablet, Place 1 tablet under the tongue Every 5 (Five) Minutes As Needed for Chest Pain. Take no more than 3 doses in 15 minutes., Disp: 25 tablet, Rfl: 5 ondansetron (Zofran) 4 MG tablet, Take 1 tablet by mouth Every 8 (Eight) Hours As Needed for Nauseaor Vomiting., Disp: 30 tablet, Rfl: 0 pantoprazole (PROTONIX) 40 MG EC tablet, Take 1 tablet by mouth 2 (Two) Times a Day., Disp: 180 tablet, Rfl: 3 potassium chloride (KLOR-CON M10) 10 MEQ CR tablet, Take 1 tablet by mouth Daily., Disp: , Rfl: potassium chloride 10 MEQ CR tablet, Take 1 tablet by mouth Daily With Breakfast., Disp: , Rfl: prasugrel (EFFIENT) 10 MG tablet, Take 1 tablet by mouth Daily., Disp: , Rfl: sucralfate (CARAFATE) 1 g tablet, Take 1 tablet by mouth 4 (Four) Times a Day., Disp: 360 tablet, Rfl: 0 vitamin B-12 (CYANOCOBALAMIN) 500 MCG tablet, Take 1 tablet by mouth Daily., Disp: , Rfl: vitamin C (ASCORBIC ACID) 250 MG tablet, Take 2 tablets by mouth Daily., Disp: , Rfl: cephalexin (KEFLEX) 500 MG capsule, Take 1 capsule by mouth 2 (Two) Times a Day for 10 days., Disp:20 capsule, Rfl: 0 Allergies: Allergies Allergen Reactions Abilify [Aripiprazole] Other (See Comments) and Dizziness Sleepy and staggering. Codeine Nausea And Vomiting Derivatives Donepezil Other (See Comments) Bad dreams Hydrocodone-Acetaminophen GI Intolerance Imdur [Isosorbide Dinitrate] Nausea And Vomiting headaches Metformin Other (See Comments) Pt refused after reading about carcinogen contamination Social History: Social History Socioeconomic History Marital status: Tobacco Use Smoking status: Never Passive exposure: Past Smokeless tobacco: Never Tobacco comments: smokes, for 45 years Vaping Use Vaping status: Never Used Substance and Sexual Activity Alcohol use: No Drug use: No Sexual activity: Not Currently Partners: Male control/protection: Post-menopausal, None Comment: Vishnu of cancer 02/10/20 Family History: Family History Problem Relation Age of Onset Arthritis Mother Diabetes Mother Hypertension Mother Migraines Mother Osteopenia Mother Asthma Mother Arthritis Father Hypertension Father Osteopenia Father Stroke Father Asthma Father Rheum arthritis Father Arthritis Sister Hiatal hernia Sister Heart failure Sister Heart failure Brother Ovarian cancer Maternal Aunt Arthritis Paternal Uncle Heart disease Paternal Grandmother Heart disease Paternal Grandfather Asthma Other Heart failure Other Breast cancer Neg Hx Colon polyps Neg Hx Esophageal cancer Neg Hx Colon cancer Neg Hx Objective Physical Exam: Vital Signs: Vitals: 03/12/25 0929 Weight: 86.2 kg (190 lb) Height: 152.4 cm (60 ) Body mass index is 37.11 kg/m??. Physical Exam Vitals and nursing note reviewed. Constitutional: Appearance: Normal appearance. HENT: Head: Normocephalic and atraumatic. Cardiovascular: Comments: Well perfused Pulmonary: Effort: Pulmonary effort is normal. Abdominal: General: Abdomen is flat. Palpations: Abdomen is soft. Musculoskeletal: General: Normal range of motion. Skin: General: Skin is warm and dry. Neurological: General: No focal deficit present. Mental Status: She is alert and oriented to person, place, and time. Mental status is at baseline. Psychiatric: Mood and Affect: Mood normal. Behavior: Behavior normal. Thought Content: Thought content normal. Judgment: Judgment normal. Labs: Brief Urine Lab Results (Last result in the past 365 days) Color Clarity Blood Leuk Est Nitrite Protein CREAT Urine HCG 05/02/242051 Yellow Cloudy Negative Moderate (2+) Negative Negative Urine Culture 04/15/2024 16:44 Urine Culture Urine Culture Yeast isolated Lab Results Component Value Date GLUCOSE 105 (H) 02/20/2025 CALCIUM 9.0 02/20/2025 NA 136 02/20/2025 K 4.3 02/20/2025 CO2 24.0 02/20/2025 CL 101 02/20/2025 BUN 20 02/20/2025 CREATININE 0.82 02/20/2025 EGFRIFAFRI 101 04/13/2021 EGFRIFNONA 88 04/13/2021 BCR 24.4 02/20/2025 ANIONGAP 11.0 02/20/2025 Lab Results Component Value Date WBC 7.15 02/20/2025 HGB 12.9 02/20/2025 HCT 39.6 02/20/2025 MCV 91.5 02/20/2025 PLT 205 02/20/2025 Images: No Images in the past 120 days found.. Measures: Tobacco: Madison Castellanos reports that she has never smoked. She has been exposed to tobacco smoke. She has never used smokeless tobacco. I have educated her on the risk of diseases from using tobacco product Assessment / Plan Assessment: Mrs. Castellanos is a 69 y.o. female who presents today with lower urinary tract symptoms including frequency, urgency her desisting continence. She is undergone SNS device placement. She presents today for follow-up. There is mild erythema around incision but overall looks well. We will place on antibiotic therapy for the next 2 weeks and return for visit. We have discussed [employer] device programming. Diagnoses and all orders for this visit: 1. Erythema (Primary) - cephalexin (KEFLEX) 500 MG capsule; Take 1 capsule by mouth 2 (Two) Times a Day for 10 days. Dispense: 20 capsule; Refill: 0 Follow Up: Return in about 2 weeks (around 03/26/2025) for Recheck. I spent approximately 45 minutes providing clinical care for this patient; including review of patient's chart and provider documentation, face to face time spent with patient in examination room (obtaining history, performing physical exam, discussing diagnosis and management options), placing orders, and completing patient documentation. Brennan Lee MD [facility] [place] documented in this encounter Plan of Treatment Upcoming Encounters Date Type Department Care Team (Late st Contact Info) Description 05/06/2025 10:30 AM EDT Office Visit [facility] GASTROENTEROLOGY [address] [facility] [address] [place] [address] Palak Graham, PA-C [address] [place] [address] 05/23/2025 1:30 PM EDT Hospital Encounter [facility] [address] [facility] [address] [place] [address] 06/03/2025 10:40 AM EDT Appointment [facility] [address] [place] [address] 06/05/2025 10:45 AM EDT Office Visit [facility] RHEUMATOLOGY [address] [facility] [address] [place] [address] John Sheppard APRN 330 [facility] [address] [place] [address] 07/01/2025 11:00 AM EDT Office Visit [facility] [address] [facility] [address] [place] [address] Brennan Lee MD [address] [facility] [address] [place] [address] 07/31/2025 10:00 AM EDT Office Visit [facility] PULMONARY & CRITICAL CARE MEDICINE [address] [facility] [address] [place] [address] Maxine Gibson, MANAGER [employer] [address] [place] [address] documented as of this encounter Goals Goal [...] day. Notes: documented as of this encounter Visit Diagnoses Diagnosis Erythema- Primary Unspecified erythematous condition documented in this encounter Additional Health Concerns Infection Onset Date Last Indicated Resolved Time Hepatitis A 04/12/2024 04/12/2024 Assessment Noted Time PHQ-2 Depression Total Score: 1 05/20/20 24 11:00 AM EDT documented as of this encounter Care Teams Offset Lithographic Press Setter Relationship Specialty Start Date End Date Reza Panchal MD [address] [place] [address] PCP - General Family Medicine 12/16/24 documented as of this encounter
--- OUTSIDE RECORDS SUMMARY | 2025-03-26 10:10 | XMS_ITS | Encounter Summary ---
Author Organization [facility] Address [address] [place] [address] Care Team Providers Care Labor Utilization Superintendent Name Role Phone Reza Panchal MD Primary Care Provider +1- [phone] Reason for Visit * Reason Comments Erythema Encounter Details Date Type Department Care Team (Late st Contact Info) Description 03/26/2025 10:10 AM EDT Office Visit [facility] UROLOGY [address] [place] [address] Brennan Lee MD [address] [address] OAB (overactive bladder) (Primary Dx); Urge incontinence; Lower urinary tract symptoms (LUTS) Social History Tobacco Use Types Packs/Day Years Used Date Smoking Tobacco: Never Passive Smoke Exposure: Past Smokeless Tobacco: Never Tobacco Cessation:Counseling Given: No Comments: smokes, for 45 years Alcohol Use Standard Drinks/Week Comments No 0 (1 standard drink = 0.6 oz pur e alcohol) [facility] Utilities Answer Date Recorded In the past 12 months has [employer] electric, gas, oil, or water company threatened [...] - - Weight 86.2 kg (190 lb) 03/26/2025 10:17 AM EDT Height 152.4 cm (5') 03/26/2025 10:17 AM EDT Body Mass Index 37.11 03/26/2025 10:17 AM EDT documented in this encounter Progress Notes * Brennan Lee MD - 03/26/2025 10:10 AM EDT Images from the original note were not included. Follow Up Office Visit Patient Name: Madison Castellanos : 1955 Chief Complaint: Chief Complaint Patient presents with Erythema History of Present Illness: Madison Castellanos is a 69 y.o. female who presents today for 4-week follow-up appointment after placement of SNS device for OAB. She reports that she is doing well overall. Incision today looks well-healing Subjective Review of System: Review of Systems Genitourinary: Negative for decreased urine volume, difficulty urinating, dysuria, enuresis, flank pain, frequency, hematuria and urgency. I have reviewed the ROS documented by my clinical staff, updated as appropriate and I agree. Brennan Lee MD I have reviewed and the following portions of the patient's history were updated as appropriate: past family history, past medical history, past social history, past surgical history and problem list. Medications: Current Outpatient Medications: acetaminophen (TYLENOL) 500 [...] THREE TIMES DAILY DIRECTED, Disp: , Rfl: chlorthalidone (HYGROTON) 25 MG tablet, , Disp: , Rfl: Cholecalciferol 25 MCG (1000 [...] mouth Daily., Disp: 90 tablet, Rfl: 3 vzjkdrcy-thykyanmj-garglgfvmgohylxkvo (POLYDEX) 3.5-03167-9.1 ointment ophthalmic ointment, APPLY SMALL AMOUNT INSIDE [...] tablets by mouth Daily., Disp: , Rfl: Allergies: Allergies Allergen Reactions Abilify [Aripiprazole] Other (See Comments) and Dizziness Sleepy and staggering. Codeine Nausea And Vomiting Derivatives Donepezil Other (See Comments) Bad dreams Hydrocodone-Acetaminophen GI Intolerance Imdur [Isosorbide Dinitrate] Nausea And Vomiting headaches Metformin Other (See Comments) Pt refused after reading about carcinogen contamination Bladder & Bowel Symptom Questionnaire How often do you usually urinate during the day ? 3 - About every 1-2 hours 2. How many timed do you urinate at night? 1 - 2 times at night 3. What is the reason that you usually urinate? 1 - Mild urge (can delay over an hour) 4. Once you get the urge to go, how long can you comfortably delay? 3 - Less than 10 min 5. How often do you get a sudden urge that makes you galvez to the bathroom? 4 - At least once a day 6. How often does a sudden urge to urinate result in you leaking urine or wetting pads? 4 - At least once a day 7. In your opinion, how good is your bladder control? 3 - Poor 8. Do you have accidental bowel leakage? yes 9. Do you have difficulty fully emptying your bladder? yes 10. Do you experience accidental leakage when performing some physical activity such as coughing, sneezing, laughing or exercise? yes 11. Have you tried medications to help improve your symptoms? yes 12. Would you be interested in learning about a long-lasting option that may help you with your symptoms? no Total Score 19 0-7 (Mild) 8-16 (Moderate) 17-28 (Severe) Objective Physical Exam: Vital Signs: Vitals: 03/26/25 1017 Weight: 86.2 kg (190 lb) Height: 152.4 [...] from using tobacco product Assessment / Plan Assessment/Plan: 69 y.o. female is seen today for week follow-up appointment and wound check after placement of SNS device. Incision is well-healing today. We have discussed continued management and care of incision.Overall doing well. Follow-up in 3 months for next urinary symptom check. Diagnoses and all orders for this visit: 1. OAB (overactive bladder) (Primary) 2. Urge incontinence 3. Lower urinary tract symptoms (LUTS) Follow Up: Return in about 3 months (around 06/26/2025) for Recheck. I spent approximately 30 minutes providing clinical care for this patient; including review of patient's chart and provider documentation, face to face time spent with patient in examination room (obtaining history, performing physical exam, discussing diagnosis and management options), placing orders, and completing patient documentation. Brennan Lee MD [facility] [place] documented in this encounter Plan of Treatment Upcoming Encounters Date Type Department Care Team (Late st Contact Info) Description 05/06/2025 10:30 AM EDT Office Visit [facility] GASTROENTEROLOGY [address] [facility] [address] [place] [address] Palak Graham PAArnaldoC [address] [facility] [address] [place] [address] 05/23/2025 1:30 PM EDT Hospital Encounter [facility] OUTPATIENT ONCOLOGY CANCER CENTER [address] [facility] [address] [place] [address] 06/03/2025 10:40 AM EDT Appointment [facility] [address]A [address] [place] [address] 06/05/2025 10:45 AM EDT Office Visit [facility] RHEUMATOLOGY [address] [place] [id number] John Sheppard APRN [address] [place] [address] 07/01/2025 11:00 AM EDT Office Visit [facility] UROLOGY [address] [facility] [address] [place] [address] Brennan Lee MD [address] [facility] [address] [place] [address] 07/31/2025 10:00 AM EDT Office Visit [facility] PULMONARY & CRITICAL CARE MEDICINE [address] [facility] [address] [place] [address] Maxine Gibson, DIGESTER HAND [address] [place] [address] documented as of this encounter Goals Goal [...] as of this encounter Visit Diagnoses Diagnosis OAB (overactive bladder)- Primary Urge incontinence Lower urinary tract symptoms (LUTS) documented in this encounter Additional Health Concerns Infection Onset Date Last Indicated Resolved Time Hepatitis A 04/12/2024 04/12/2024 Assessment Noted Time PHQ-2 Depression Total Score: 1 05/20/20 24 11:00 AM EDT documented as of this encounter Care Teams Labor Utilization Superintendent Relationship Specialty Start Date End Date Reza Panchal MD [facility] [place] [address] PCP - General Family Medicine 09/30/24 documented as of this encounter
--- OUTSIDE RECORDS SUMMARY | 2025-03-28 12:35 | XMS_ITS | Encounter Summary ---
Author Organization [facility] Address [address] [place] [address] Care Team Providers Care Supervisor [employer] Name Role Phone Reza aPnchal MD Primary Care Provider [phone]- [phone] Reason for Visit * Episode Based Medications (Routine) - Closed Specialty Diagnoses / Procedures Referred By Tia holman Referred To Contact Diagnoses Rheumatoid arthritis involving multiple sites with positive rheumatoid factor Procedures [place] GOLIMUMAB FOR IV USE 1MG Patrice Santana DO [address] [place] [address] Phone: tel: fax: [facility]PAT[facility] [address] [address] Phone: tel: fax: Referral ID Status Reason Start Date Expiration Date Visits Re quested Visits Authorized [id number] Closed 05/06/2024 05/06/2025 1 1 Encounter Details Date Type Department Care Team (Latest Contact Info) Description 03/28/2025 12:35 PM EDT - 03/28/2025 11:59 PM EDT Hospital Encounter [facility] [address] [facility] [address] [place] [address] Patrice Santana DO [address] [place] [address] Rheumatoid arthritis involving multiple sites with positive rheumatoid factor (Primary Dx) Discharge Disposition: Home or Self Care Social History Tobacco Use Types Packs/Day Years Used Date Smoking Tobacco: Never Passive Smoke Exposure: Past Smokeless Tobacco: Never Comments: smokes, for 45 years Alcohol Use Standard Drinks/Week Comments No 0 (1 standard drink = 0.6 oz pur e alcohol) [facility] Utilities Answer Date Recorded In the past 12 months has th e [employer], gas, oil, or water [employer] threatened to shut off services in your [...] or training? Not on file Preferred Language Romanian 01/28/2025 PHQ-2 Answer Date Recorded Retired PHQ-9: [...] sulfamethoxazole-tr imethoprim (Bactrim DS) 800-160 MG per tabletIndications:L ower urinary tract symptoms (LUTS) Take 1 tablet [...] 3 01/28/2025 04/29/20 25 neomycin-polymyxin- dexamethamethasone (POLYDEX) 3.5-31734-2.1 ointment ophthalmic ointment APPLY SMALL AMOUNT INSIDE RIGHT EYE TWICE DAILY UNTIL NEXT APPT 10/28/2024 04/29/20 25 potassium chloride 10 MEQ CR tablet Take 1 tablet by mouth Daily With Breakfast. 04/29/20 25 documented as of this encounter Plan of Treatment Upcoming Encounters Date Type Department Care Team (Late st Contact Info) Description 05/06/2025 10:30 AM EDT Office Visit [facility] GASTROENTEROLOGY [address] [place] [address] Palak Graham PAArnaldoC [address] [place] [address] 05/23/2025 1:30 PM EDT Hospital Encounter [facility] [address] [place] [address] 06/03/2025 10:40 AM EDT [facility]ment [facility] [address] [place] [address] 06/05/2025 10:45 AM EDT Office Visit [facility] RHEUMATOLOGY [address] [place] [address] John Sheppard APRN [address] [facility] 100 [place] [address] 07/01/2025 11:00 AM EDT Office Visit [facility] UROLOGY [address] [facility] 502 [place] [address] Brennan Lee MD [address] [facility] [address] [place], [place] [address] 07/31/2025 10:00 AM EDT Office Visit [facility] PULMONARY & CRITICAL CARE MEDICINE 3000 [facility] [address] [place] [address] Maxine Gibson, TRUCK CHAUFFEUR [address] [place] [address] documented as of this encounter Goals Goal [...] as of this encounter Care Teams Supervisor [employer] Relationship Specialty Start Date End Date Reza Panchal MD [facility] [place] [address] PCP - General Family Medicine 09/30/24 documented as of this encounter
--- OUTSIDE RECORDS SUMMARY | 2025-04-29 09:30 | XMS_ITS | Encounter Summary ---
Author Organization [facility] Address [address] [place] [address] Care Team Providers Care Election Clerk Name Role Phone Reza Panchal MD Primary Care Provider +1- [phone] Reason for Visit * Reason Comments Sleep Apnea Follow up Encounter Details Date Type Department Care Team (Late st Contact Info) Description 04/29/2025 9:30 AM EDT Office Visit [facility] PULMONARY & CRITICAL CARE MEDICINE 3000 [facility] [address] [place] [address] Maxine Gibson, DINING ROOM HELPER [address] [place] [address] Seasonal allergic rhinitis due to pollen (Primary [...] drink = 0.6 oz pur e alcohol) [facility] Utilities Answer Date Recorded In the past 12 months has [employer], gas, oil, or water [employer] threatened to shut off services in your [...] or training? Not on file Preferred Language [place] 01/28/2025 PHQ-2 Answer Date Recorded Retired PHQ-9: [...] Everywhere. * GERD in Adults: Diet Changes ([place]) documented in this encounter Progress Notes * Maxine Gibson APRN - 04/29/2025 9:30 AM EDT [facility] Follow up CHIEF COMPLAINT fatigue HISTORY OF PRESENT ILLNESS Madison Castellanos is a 69 y.o.female here today for follow-up. She was last seen in the office by me in January. She was recently discharged from [facility] yesterday for aspiration pneumonia and sepsis. The [...] Description 05/06/2025 10:30 AM EDT Office Visit [facility] GASTROENTEROLOGY [address] [place] [address] Palak Graham PADelano [address] [place] [address] 05/23/2025 1:30 PM EDT Hospital Encounter [facility] [address] [facility] [address] [place] [address] 06/03/2025 10:40 AM EDT Appointment [facility] DEXA YOEL [address] [place] [address] 06/05/2025 10:45 AM EDT Office Visit [facility] RHEUMATOLOGY [address] [facility] [address] [place] [address] John Sheppard APRN 330 [facility] [address] [place] [address] 07/01/2025 11:00 AM EDT Office Visit [facility] UROLOGY [address]60 [facility] [address] [place] [address] Brennan Lee MD [address] [facility] [address] [place] [address] 07/31/2025 10:00 AM EDT Office Visit [facility] PULMONARY & CRITICAL CARE MEDICINE [address] [facility] [address] [place] [address] Maxine Gibson, DINING ROOM HELPER [address] [place] [address] documented as of this encounter Goals Goal [...] documented as of this encounter Care Teams Election Clerk Relationship Specialty Start Date End Date Reza Panchal MD [address] [place] [address] PCP - General Family Medicine 09/30/24 documented as of this encounter
--- OUTSIDE RECORDS SUMMARY | 2025-05-02 13:51 | XMS_ITS | Encounter Summary ---
Author Organization [facility] Address [address] [place] [address] Care Team Providers Care Curator Natural History Museum Name Role Phone Reza Panchal MD Primary Care Provider +1- [phone] Reason for Visit * Reason Onset Date Comments MED QUESTION 03/27/2025 Encounter Details Date Type Department Care Team (Late st Contact Info) Description 03/27/2025 Telephone [facility] UROLOGY [address] [place] [phone] Brennan Santillan MD [address] [address] MED QUESTION Social History Tobacco Use Types Packs/Day Years Used Date Smoking Tobacco: Never Passive Smoke Exposure: Past Smokeless Tobacco: Never Comments: smokes, for 45 years Alcohol Use Standard Drinks/Week Comments No 0 (1 standard drink = 0.6 oz pur e alcohol) [facility] Utilities Answer Date Recorded In the past 12 months has [employer] gas, oil, or water [employer] threatened to shut off services in your [...] or training? Not on file Preferred Language Bengali 01/28/2025 PHQ-2 Answer Date Recorded Retired PHQ-9: Brief Depression Severity Measure Score 7 05/20/2024 Comments No Sex and Gender Information Value Date Recorded Sex Assigned at Female 01/09/2025 11:01 AM EDT Legal Sex Female 12:37 PM EDT Gender Identity Not on file Sexual Orientation Not on file documented as of this encounter Miscellaneous Notes * Telephone Encounter - Bright Cha RegSched Rep - 03/27/2025 10:04 AM EDT Caller: ERICA THRASHER Relationship: GRAND DAUGHTER Best call back number: [phone] What is the best time to reach you: ANY Who are you requesting to speak with (clinical staff, provider, specific staff member): DR SANTILLAN Do you know the name of the person who called: GRANDDAUGHTER What was the call regarding: CALLING PT SAW DR ON 03/26/25 AND THOUGHT HE WOULD BE PUTTING HER ONANOTHER WEEK OF ANTIBIOTICS. PLEASE CALL BACK TO DISCUSS WHAT NEXT STEPS ARE. THANK YOU. Is it okay if the provider responds through [place] [employer]: YES documented in this encounter Plan of Treatment Upcoming Encounters Date Type Department Care Team (Late st Contact Info) Description 05/06/2025 10:30 AM EDT Office Visit [facility]OENTEROLOGY 1720 [facility] [address] [place] [address] Palak Graham PA-C [address] [place] [address] 05/23/2025 1:30 PM EDT Hospital Encounter [facility] OUTPATIENT ONCOLOGY CANCER CENTER 1700 [facility] [address] [address] [place] [address] 06/03/2025 10:40 AM EDT Appointment [facility] MINERVA DIALLO [address] [place] [address] 06/05/2025 10:45 AM EDT Office Visit [facility] RHEUMATOLOGY [address] [place] [address] John Sheppard APRN [address] [facility] 100 [place] [address] 07/01/2025 11:00 AM EDT Office Visit [facility] UROLOGY 1760 [facility] [address] [address] [place] [address] Brennan Santillan MD 1760 [facility] 502 [place] [address] 07/31/2025 10:00 AM EDT Office Visit [facility] PULMONARY & CRITICAL CARE MEDICINE 3000 [facility] 240 [place] [address] Maxine Gibson, CHEF DE PARTIE [address] [place] [address] documented as of this encounter Goals Goal [...] documented as of this encounter Care Teams Curator Natural History Museum Relationship Specialty Start Date End Date Reza Panchal MD [facility]0 [place] [address] PCP - General Family Medicine 09/30/24 documented as of this encounter
--- OUTSIDE RECORDS SUMMARY | 2025-05-02 13:51 | XMS_ITS | Encounter Summary ---
Author Organization [facility] Address [address] [place] [address] Care Team Providers Care Automatic Grinding Machine Operator Name Role Phone Reza Panchal MD Primary Care Provider +1- [phone] Encounter Details Date Type Department Care Team (Latest Contact Info) Description 04/29/2025 Travel Social History Tobacco Use Types Packs/Day Years Used Date Smoking Tobacco: Never Passive Smoke Exposure: Past Smokeless Tobacco: Never Comments: smokes, for 45 years Alcohol Use Standard Drinks/Week Comments No 0 (1 standard drink = 0.6 oz pur e alcohol) [facility] Utilities Answer Date Recorded In the past 12 months has [employer] electric, gas, oil, or water company threatened [...] or training? Not on file Preferred Language Belarusian 01/28/2025 PHQ-2 Answer Date Recorded Retired PHQ-9: Brief Depression Severity Measure Score 7 05/20/2024 Comments No Sex and Gender Information Value Date Recorded Sex Assigned at Female 01/09/2025 11:01 AM EDT Legal Sex Female 12:37 PM EDT Gender Identity Not on file Sexual Orientation Not on file documented as of this encounter Plan of Treatment Upcoming Encounters Date Type Department Care Team (Late st Contact Info) Description 05/06/2025 10:30 AM EDT Office Visit [facility] GASTROENTEROLOGY 1720 [facility] [address] [place] [address] Palak Graham PA-C [address] [place] [address] 05/23/2025 1:30 PM EDT Hospital Encounter [facility] OUTPATIENT ONCOLOGY CANCER CENTER 1700 [facility] [address] [place] [address] 06/03/2025 10:40 AM EDT Appointment [facility] MINERVA YOEL [address] [place] [address] 06/05/2025 10:45 AM EDT Office Visit [facility] RHEUMATOLOGY 330 [facility] 100 [place] [address] John Sheppard APRN 330 [facility] 100 [place] [address] 07/01/2025 11:00 AM EDT Office Visit [facility] UROLOGY 1760 [facility] [address] [place] [address] Brennan Lee MD 1760 [facility] [address] [place] [address] 07/31/2025 10:00 AM EDT Office Visit [facility] PULMONARY & CRITICAL CARE MEDICINE 3000 [facility] [address] [place] [address] Maxine Gibson, LACQUERER [address] [place] [address] documented as of this encounter Goals Goal [...] documented as of this encounter Care Teams Automatic Grinding Machine Operator Relationship Specialty Start Date End Date Reza Panchal MD [address] [place] [address] PCP - General Family Medicine 09/30/24 documented as of this encounter
--- OUTSIDE RECORDS SUMMARY | 2025-05-02 13:51 | XMS_ITS | Clinical Summary ---
Author Organization [facility] Address 1720 [facility] [address] [place] [address] Phone Care Team Providers Care Wink Cutter Operator Name Role Phone Unavailable Unavailable Conditions or Problems No information available. Medications No information available. Medications Administered No information available. Allergies, Adverse Reactions, Alerts No information available. Results No information available. Plan of Care No information available. Procedures No information available. Vital Signs No information available. Immunizations No information available. Advance Directives No information available.
--- OUTSIDE RECORDS SUMMARY | 2025-05-02 13:51 | XMS_ITS | Encounter Summary ---
Author Organization [facility] Address [address] [place] [address] Care Team Providers Care Musical Instrument Maker Or Repairer Name Role Phone Reza Panchal MD Primary Care Provider +1- [phone] Encounter Details Date Type Department Care Team (Latest Contact Info) Description 03/12/2025 Travel Social History Tobacco Use Types Packs/Day Years Used Date Smoking Tobacco: Never Passive Smoke Exposure: Past Smokeless Tobacco: Never Comments: smokes, for 45 years Alcohol Use Standard Drinks/Week Comments No 0 (1 standard drink = 0.6 oz pur e alcohol) [facility] Utilities Answer Date Recorded In the past 12 months has [employer] electric, gas, oil, or water company threatened [...] Description 05/06/2025 10:30 AM EDT Office Visit [facility] GASTROENTEROLOGY 1720 [facility] [address] [place] [phone] Palak Graham PA-C [address] [place] [address] 05/23/2025 1:30 PM EDT Hospital Encounter [facility] OUTPATIENT ONCOLOGY CANCER CENTER 1700 [facility] [address] [place] [address] 06/03/2025 10:40 AM EDT Appointment [facility] MINERVA YOEL [address] [place] [address] 06/05/2025 10:45 AM EDT Office Visit [facility] RHEUMATOLOGY 330 [facility] 100 [place] [address] John Sheppard APRN 330 [facility] 100 [place] [address] 07/01/2025 11:00 AM EDT Office Visit [facility] UROLOGY 1760 [facility] [address] [place] [address] Brennan Lee MD 1760 [facility] [address] [place] [address] 07/31/2025 10:00 AM EDT Office Visit [facility] PULMONARY & CRITICAL CARE MEDICINE 3000 [facility] [address] [place] [address] Maxine Gibson, WET WHEELER [address] [place] [address] documented as of this encounter Goals Goal [...] documented as of this encounter Care Teams Musical Instrument Maker Or Repairer Relationship Specialty Start Date End Date Reza Panchal MD [address] [place] [address] PCP - General Family Medicine 09/30/24 documented as of this encounter
--- OUTSIDE RECORDS SUMMARY | 2025-05-02 13:51 | XMS_ITS | Encounter Summary ---
[facility] Address [address] [place] [address] Care Team Providers Care Charcoal Kiln Burner Name Role Phone Reza Panchal MD Primary Care Provider +1- [phone] Reason for Visit * Reason Onset Date Comments Med Refill 04/29/2025 Encounter Details Date Type Department Care Team (Late st Contact Info) Description 04/29/[address] [facility] CARDIOLOGY 17[address] [facility] [address] [place] [address] Tristan Mosley MD [address] [facility] [address] [place] [address] Med Refill Social History Tobacco Use Types Packs/Day Years Used Date Smoking Tobacco: Never Passive Smoke Exposure: Past Smokeless Tobacco: Never Comments: smokes, for 45 years Alcohol Use Standard Drinks/Week Comments No 0 (1 standard drink = 0.6 oz pur e alcohol) [facility] Utilities Answer Date Recorded In the [...] or training? Not on file Preferred Language Cymraes 01/28/2025 PHQ-2 Answer Date Recorded Retired PHQ-9: [...] Visit [facility]OLOGY [address] [facility] [address] [place] [address] Palak Graham PADelano [address] [place] [address] 05/23/2025 1:30 PM EDT Hospital Encounter [facility] 17[address] [facility] [address] [place] [address] 06/03/2025 10:40 AM EDT [facility] [address] [place] [address] 06/05/2025 10:45 AM EDT Office Visit [facility] RHEUMATOLOGY 330 [facility] 100 [place] [address] John Sheppard APRN 330 [facility] 100 [place] [address] 07/01/2025 11:00 AM EDT Office Visit [facility] UROLOGY 1760 [facility] [address] [place] [address] Brennan Lee MD [address] [facility] [address] [place] [address] 07/31/2025 10:00 AM EDT Office Visit [facility] PULMONARY & CRITICAL CARE MEDICINE 3000 [facility] [address] [place] [address] ArthurLeigh rothlanjuan Fontaine, RELIGIOUS ACTIVITIES DIRECTOR [address] [place] [address] documented as of this encounter Goals Goal [...] documented as of this encounter Care Teams Charcoal Kiln Burner Relationship Specialty Start Date End Date Toadvine, Reza K, MD [facility] [place] [address] PCP - General Family Medicine 09/30/24 documented as of this encounter
--- OUTSIDE RECORDS SUMMARY | 2025-05-02 13:51 | XMS_ITS | Encounter Summary ---
[facility] Address [address] [place] [address] Care Team Providers Care Jointer Machine Operator Name Role Phone Reza Panchal MD Primary Care Provider +1- [phone] Reason for Visit * Reason Comments Med Refill Encounter Details Date Type Department Care Team (Late st Contact Info) Description 12/19/2021 Refill [facility] PRIMARY CARE [address] [address] Dia Underwood MD 2039 [facility] 100 [place] [address] Social History Tobacco Use Types Packs/Day Years Used Date Smoking Tobacco: Never Smokeless Tobacco: Never Comments: smokes, for 45 years Alcohol Use Standard Drinks/Week Comments No 0 (1 standard drink = 0.6 oz pur e alcohol) Overall Financial Resource Strain (CARDIA) Answe r Date Recorded How hard is it for you to pa y for the very basics like food, housing, medical care, and heating? Somewhat hard 09/04/2020 PHQ-2 Answer Date Recorded Retired Total Score 15 05/18/2021 Hunger Vital Sign Answer Date Recorded Within [...] medical appointments or from getting medications? No 08/17 In the past 12 months, has l ack of transportation kept you from meetings, work, or from getting things needed for daily living? No 09/04/2020 Comments No Sex and Gender Information Value Date Recorded Sex Assigned at Female 01/09/2025 11:01 AM EDT Legal Sex Female 12:37 PM EDT Gender Identity Not on file Sexual Orientation Not on file documented as of this encounter Plan of Treatment Upcoming Encounters Date Type Department Care Team (Late st Contact Info) Description 05/06/2025 10:30 AM EDT Office Visit [facility]ENTEROLOGY 1720 [facility] [address] [place] [address] Palak Graham PA-C 1720 [facility] [address] [place] [address] 05/23/2025 1:30 PM EDT Hospital Encounter [facility] [address] [facility] [address] [address] [place] [address] 06/03/2025 10:40 AM EDT Appointment [facility] [place] [address] [place] [address] 06/05/2025 10:45 AM EDT Office Visit [facility] RHEUMATOLOGY 330 [facility] 100 [place] [address] John Sheppard APRN 330 [facility] 100 [place] [address] 07/01/2025 11:00 AM EDT Office Visit [facility] UROLOGY 1760 [facility] [address] [place] [address] Brennan Lee MD [address] [place] [address] 07/31/2025 10:00 AM EDT Office Visit [facility] PULMONARY & CRITICAL CARE MEDICINE 3000 [facility] [address] [place] [address] Maxine Gibson, MOLDED GRID AND PARTS INSPECTOR [address] [place] [address] documented as of this encounter Visit Diagnoses [...] documented as of this encounter Care Teams Jointer Machine Operator Relationship Specialty Start Date End Date Reza Panchal MD [address] [address] PCP - General Family Medicine 09/30/24 documented as of this encounter
--- OUTSIDE RECORDS SUMMARY | 2025-05-02 13:51 | XMS_ITS | Encounter Summary ---
[facility] Address [address] [place] [address] Care Team Providers Care E Commerce Marketing Analyst Name Role Phone Reza Panchal MD Primary Care Provider +1- [phone] Reason for Visit * Reason Comments Med Refill Encounter Details Date Type Department Care Team (Late st Contact Info) Description 02/24/2023 Refill [facility] PRIMARY CARE [address] [address] Huyen Hall MD 2039 [facility] 100 [place], [place] [id number] Type 2 diabetes mellitus with hyperglycemia, without long-term current use of insulin Social History Tobacco Use Types Packs/Day Years Used Date Smoking Tobacco: Never Smokeless Tobacco: Never Comments: smokes, for 45 years Alcohol Use Standard Drinks/Week Comments No 0 (1 standard drink = 0.6 oz pur e alcohol) AUDIT-C Answer Date Recorded Q1: How often do you have a drink containing alcohol? Never 05/09/2022 Q2: How many drinks containi ng alcohol do you have on a typical day when you are drinking? Patient does not drink Q3: How often do you have si x or more drinks on one occasion? Never 05/09/2022 Overall Financial Resource Strain (CARDIA) Answe r Date Recorded How hard is it for you to pa y for the very basics like food, housing, medical care, and heating? Somewhat hard 09/04/2020 PHQ-2 Answer Date Recorded Retired PHQ-9: Brief Depression Severity Measure Score 1 01/04/2023 Hunger Vital Sign Answer Date Recorded Within [...] Description 05/06/2025 10:30 AM EDT Office Visit [facility] GASTROENTEROLOGY 1720 [facility] 302 [place] [address] Palak Graham PA-C [address] [place] [address] 05/23/2025 1:30 PM EDT Hospital [facility] 1700 [facility] [address] [place] [address] 06/03/2025 10:40 AM EDT Appointment [facility] [place] [place] [address] 06/05/2025 10:45 AM EDT Office Visit [facility] RHEUMATOLOGY [address] [place] [address] John Sheppard, SHEET PILE HAMMER OPERATOR 330 [facility] 100 [place] [address] 07/01/2025 11:00 AM EDT Office Visit [facility] UROLOGY 1760 [facility] 502 [place], [place] [phone] Brennan Lee MD 1760 [facility] [address] [place] [address] 07/31/2025 10:00 AM EDT Office Visit [facility] PULMONARY & CRITICAL CARE MEDICINE 3000 [facility] [address] [place] [address] Maxine Gibson, SHEET PILE HAMMER OPERATOR [address] [place] [address] documented as of this encounter Visit Diagnoses Diagnosis Type 2 diabetes mellitus with hyperglycemia, without long-term current use of insulin documented in this encounter Additional Health Concerns Infection Onset Date Last Indicated Resolved Time COVID (rule out) 07/24/2023 07/24/2023 07/24/2023 8:28 AM EDT COVID Screen (preop/placement) 01/11/2024 01/11/2024 01/11/2024 2:31 AM EDT C.difficile (rule out) 01/11/2024 01/11/202401/10 11:15 AM EDT Hepatitis A 04/12/2024 04/12/2024 COVID Screen (preop/placement) 05/02/2024 05/02/2024 05/02/2024 9:15 PM EDT Assessment Noted Time PHQ-2 Depression Total Score: 1 01/05/20 23 11:09 AM EDT documented as of this encounter Care Teams E Commerce Marketing Analyst Relationship Specialty Start Date End Date Reza Panchal MD [address] [place], [place] [id number] PCP - General Family Medicine 09/30/24 documented as of this encounter
--- OUTSIDE RECORDS SUMMARY | 2025-05-02 13:51 | XMS_ITS | Encounter Summary ---
Author Organization [facility] Address [address] [place] [address] Care Team Providers Care Library Helper Name Role Phone Reza Panchal MD Primary Care Provider +1- [phone] Encounter Details Date Type Department Care Team (Latest Contact Info) Description 03/28/2025 Travel Social History Tobacco Use Types Packs/Day Years Used Date Smoking Tobacco: Never Passive Smoke Exposure: Past Smokeless Tobacco: Never Comments: smokes, for 45 years Alcohol Use Standard Drinks/Week Comments No 0 (1 standard drink = 0.6 oz pur e alcohol) [facility] Utilities Answer Date Recorded In the past 12 months has [employer] electric, gas, oil, or water company threatened [...] or training? Not on file Preferred Language Honduran 01/28/2025 PHQ-2 Answer Date Recorded Retired PHQ-9: [...] Description 05/06/2025 10:30 AM EDT Office Visit [facility]STRO[facility]OLOGY 1720 [facility] [address] [place] [address] Palak Graham PA-C [address] [place] [address] 05/23/2025 1:30 PM EDT Hospital Encounter [facility] 1700 [facility] [address] [place] [address] 06/03/2025 10:40 AM EDT Appointment [facility] [place] [address] [place] [address] 06/05/2025 10:45 AM EDT Office Visit [facility] RHEUMATOLOGY [address] [facility] 100 [place] [address] John Sheppard APRN 330 [facility] 100 [place] [address] 07/01/2025 11:00 AM EDT Office Visit [facility] UROLOGY 1760 [facility] [address] [place] [address] Brennan Lee MD 1760 [facility] [address] [place] [address] 07/31/2025 10:00 AM EDT Office Visit [facility] PULMONARY & CRITICAL CARE MEDICINE 3000 [facility] [address] [place] [address] Maxine Gibson, ENTRY LEVEL ACCOUNT REPRESENTATIVE [address] [place] [address] documented as of this encounter Goals Goal [...] documented as of this encounter Care Teams Library Helper Relationship Specialty Start Date End Date Reza Panchal MD [address] [place] [address] PCP - General Family Medicine 09/30/24 documented as of this encounter
--- OUTSIDE RECORDS SUMMARY | 2025-05-02 13:51 | XMS_ITS | Clinical Summary ---
Author Organization [facility] Address [address] [place] [address] Care Team Providers Care [employer] Att[employer] Name Role Phone Reza Panchal MD Primary Care Provider [phone] Allergies Active Allergy Reactions Criticality Noted Date Comments Aripiprazole Other (See Comments),Dizziness Medium 05/18/2021 Sleepy and staggering. Codeine Nausea And Vomiting Low 05/20/2016 Derivatives Donepezil Other (See Comments) Low 08/29/2022 Bad dreams Hydrocodone-Acetamino phen GI Intolerance Low 07/24/2023 Isosorbide Dinitrate Nausea And Vomiting Low 2015 headaches Metformin Other (See Comments) Low 07/02/2020 Pt refused after reading about carcinogen contamination Medications * This document contains information received from the source organization and may not represent a complete record from that organization. hydrOXYzine (ATARAX) 10 MG tablet TAKE 1 TABLET BY MOUTH FOUR TIMES DAILY NEEDED FOR NERVES 05/11/20 22 Active BD Pen Needle Reyna 2nd Gen 32G X 4 MM misc USE 1 NEEDLE THREE TIMES DAILY DIRECTED 08/01/20 22 Active montelukast (SINGULAIR) 10 MG tabletIndications: Seasonal allergic rhinitis due to pollen Take 1 tablet by mouth Daily. 90 tablet 3 10/04/20 23 Active vitamin B-12 (CYANOCOBALAMIN) 500 MCG tablet Take 1 tablet by mouth Daily. Active nitroglycerin (NITROSTAT) 0.[address] 1 tablet under the tongue Every 5 (Five) Minutes As Needed for Chest Pain. Take no more than 3 doses in 15 minutes. 25 tablet 5 01/03/20 24 Active Aspirin Low Dose 81 MG EC tablet TAKE 1 TABLET BY MOUTH DAILY 100 tablet 2 01/26/20 24 Active mirtazapine (Remeron) 15 MG tablet Take 1 tablet by mouth Every Night. 90 tablet 1 03/08/20 24 Active metoprolol succinate XL (TOPROL-XL) 50 MG 24 hr tablet Take 1 tablet by mouth Every 12 (Twelve) Hours. 03/09/20 24 Active Cholecalciferol 25 MCG (1000 UT) tablet Take 2 tablets by mouth Daily. Active sucralfate (CARAFATE) 1 g tablet Take 1 tablet by mouth 4 (Four) Times a Day. 360 tablet 05/02/20 24 Active ondansetron (Zofran) 4 MG tablet Take 1 tablet by mouth Every 8 (Eight) Hours As Needed for Nausea or Vomiting. 30 tablet 05/02/20 24 Active memantine (Namenda) 10 MG tabletIndications: Mild cognitive impairment Take 1 tablet by mouth 2 (Two) Times a Day. 60 tablet 3 05/10/20 24 Active Additional Information Patient taking differently:10 mg OralDaily, Informant: Self, Reported on 04/29/2025 glucose blood test stripIndications:T ype 2 diabetes mellitus with retinopathy, without long-term current use of insulin, macular edema presence unspecified, unspecified laterality, unspecified retinopathy severity Use to check blood sugar daily. E11.319 50 each 12 05/13/20 24 Active Lancets 30G miscIndications:Ty pe 2 diabetes mellitus with retinopathy, without long-term current use of insulin, macular edema presence unspecified, unspecified laterality, unspecified retinopathy severity Use to check blood sugar daily. ED 11.319 100 each 4 05/13/20 24 Active glucose monitor monitoring kitIndications:Typ e 2 diabetes mellitus with retinopathy, without long-term current use of insulin, macular edema presence unspecified, unspecified laterality, unspecified retinopathy severity Use to check blood sugar daily. E11.319 1 each 05/13/20 24 Active gabapentin (NEURONTIN) 100 MG capsuleIndications :Post herpetic neuralgia,Chronic bilateral low back pain with bilateral sciatica,Acute right-sided low back pain, unspecified whether sciatica present TAKE 2 CAPSULES BY MOUTH THREE TIMES DAILY 180 capsule 1 05/27/20 24 Active Additional Information Patient taking differently: 300 mgOral 3 Times Daily, Informant: Self, Reported on 04/29/2025 levothyroxine (SYNTHROID, LEVOTHROID) 75 MCG tabletIndications: Acquired hypothyroidism Take 1 tablet by mouth Daily. 30 tablet 5 06/03/20 24 Active amLODIPine (NORVASC) 2.5 MG tabletIndications: Primary hypertension Take 1 tablet by mouth Daily. 30 tablet 2 06/07/20 24 Active Additional Information Patient taking differently:2.5 mg OralAs Needed, Reported on 04/29/2025 pantoprazole (PROTONIX) 40 MG EC tablet Take 1 tablet by mouth 2 (Two) Times a Day. 180 tablet 3 07/01/20 24 Active Jardiance 10 MG tablet tabletIndications: Type 2 diabetes mellitus with retinopathy, without long-term current use of insulin, macular edema presence unspecified, unspecified laterality, unspecified retinopathy severity TAKE 1 TABLET BY MOUTH DAILY 30 tablet 2 07/08/20 24 Active prasugrel (EFFIENT) 10 MG tablet Take 1 tablet by mouth Daily. Active Golimumab (SIMPONI ARIA IV) Infuse into a venous catheter Every 8 (Eight) Weeks. Active fluticasone (FLONASE) 50 MCG/ACT nasal sprayIndications:C hronic cough Administer 2 sprays into the nostril(s) as directed by provider Daily. 33.3 g 3 01/29/20 25 Active Magnesium 250 MG tablet Take 2 tablets by mouth Daily. Active vitamin C (ASCORBIC ACID) 250 MG tablet Take 2 tablets by mouth Daily. Active acetaminophen (TYLENOL) 500 MG tablet Take 1 tablet by mouth Every 6 (Six) Hours As Needed for Mild Pain. Active meloxicam (MOBIC) 15 MG tablet Take 1 tablet by mouth Daily As Needed for Mild Pain. 30 tablet 5 01/31/20 25 Active alendronate (FOSAMAX) 70 MG tablet Take 1 tablet by mouth Every 7 (Seven) Days. 4 tablet 6 01/31/20 25 Active Diclofenac Sodium (VOLTAREN) 1 % gel gel Apply topically to the appropriate area as directed 4 (Four) Times a Day. Apply 4 grams topically to the affected area four times daily 300 g 4 01/31/20 25 Active potassium chloride (KLOR-CON M10) 10 MEQ CR tablet Take 1 tablet by mouth Daily. 03/03/20 25 Active chlorthalidone (HYGROTON) 25 MG tablet 03/25/20 25 Active cefdinir (OMNICEF) 300 MG capsule 04/28/20 25 Active Fluticasone-Salmet shira (ADVAIR/WIXELA) 100-50 MCG/ACT DISKUSIndications: Chronic cough Inhale 1 puff 2 (Two) Times a Day. 180 each 3 04/29/20 25 Active albuterol sulfate HFA 108 (90 Base) MCG/ACT inhalerIndications :Chronic cough Inhale 2 puffs Every 4 (Four) Hours As Needed for Wheezing or Shortness of Air. 18 g 6 04/29/20 25 Active atorvastatin (LIPITOR) 20 MG tablet Take 1 tablet by mouth Daily. 90 tablet 04/29/20 25 Active atorvastatin (LIPITOR) 20 MG tablet TAKE 1 TABLET BY MOUTH DAILY 90 tablet 2 02/07/20 24 025 Discontinu ed(Reorder ) potassium chloride 10 MEQ CR tablet Take 1 tablet by mouth Daily With Breakfast. 025 Discontinu ed(Duplica te order) neomycin-polymyxin -dexamethamethason e (POLYDEX) 3.5-39910-7.1 ointment ophthalmic ointment APPLY SMALL AMOUNT INSIDE RIGHT EYE TWICE DAILY UNTIL NEXT APPT 10/28/19 25 025 Discontinu ed(*Therap y completed) albuterol sulfate HFA 108 (90 Base) MCG/ACT inhalerIndications :Chronic cough Inhale 2 puffs Every 4 (Four) Hours As Needed for Wheezing or Shortness of Air. 18 g 6 01/29/20 25 025 Discontinu ed(Reorder ) Fluticasone-Salmet shira (ADVAIR/WIXELA) 100-50 MCG/ACT DISKUSIndications: Chronic cough Inhale 1 puff 2 (Two) Times a Day. 180 each 3 01/29/20 25 025 Discontinu ed(Reorder ) sulfamethoxazole-t rimethoprim (Bactrim DS) 800-160 MG per tabletIndications: Lower urinary tract symptoms (LUTS) Take 1 tablet by mouth 2 (Two) Times a Day for 7 days. 14 tablet 03/27/20 25 025 Active Problems Problem Noted Date Diagnosed Date NSAID long-term use 01/30/2025 Assessment & Plan (01/30/2025 11:05 AM EDT): Meloxicam 15 mg PO once/day PRN for joint pain Do not take over-the counter anti-inflammatory medicines, such as ibuprofen or naproxen (Advil, Motrin, Aleve and others), as they may cause problems when combined with your prescription medications. In general, low dose daily aspirin for the treatment or prevention of heart disease or stroke is safe to take. Acetaminophen (Tylenol) is generally safe to take as directed for headaches, cramps or other aches and pains or fever reduction. Urge incontinence 10/31/2024 OAB (overactive bladder) 10/31/2024 Lower urinary tract symptoms (LUTS) 10/31/2024 Stress incontinence of urine 10/31/2024 Age-related osteoporosis wit hout current pathological fracture 04/12/2024 Assessment & Plan (01/30/2025 11:18 AM EDT): 1. Calcium and vitamin D supplements should be taken unless otherwise contraindicated. 2. DXA scan should be monitored approximately every 2 years. Will order follow up DXA Her last DXA was in 2021 3. She takes Alendronate. Refill today Assessment & Plan (08/27/2024 11:29 AM EST): 1. Calcium and vitamin D supplements should be taken unless otherwise contraindicated. 2. DXA scan should be monitored approximately every 2 years. 3. She takes Alendronate. Refill today Assessment & Plan (04/12/2024 11:13 AM EDT): 1. Calcium and vitamin D supplements should be taken unless otherwise contraindicated. 2. DXA scan should be monitored approximately every 2 years. 3. She takes Alendronate. Refill today Psoriasis 04/10/2024 Bradycardia 01/13/2024 Nausea vomiting and diarrhea 01/11/2024 Hypocalcemia 01/11/2024 Chronic bilateral low back pain with bilateral s ciatica 12/12/2023 Assessment & Plan (12/12/2023 2:09 PM EST): Chronic, worsening, order xray, MRI, pt declined PT, will inc gabapentin dose temporarily to see if that will help more with nerve pain from her lumbar spine, rx prednisone to take for flare of back pain, cont mobic. Monitor sugar while on prednisone. Acute right-sided low back pain 12/12/2023 Assessment & Plan (12/12/2023 2:10 PM EST): Xray low back, check u/a but does not sound like kidney stone, prednisone for flare, temp inc makenzie for flare, cont mobic. Hip pain, right 12/12/2023 Assessment & Plan (12/12/2023 2:09 PM EST): Chronic, worsening, order xray Numbness and tingling in both hands 11/12/2023 Assessment & Plan (11/12/2023 4:01 PM EST): EMG ordered, f/u if sx worsen or persist. Consider ortho referral. DEVANG (obstructive sleep apnea )/suspected nocturnal hypoxemia.-by history. Intolerant of NIPPV in past. 05/18/2023 Mild cognitive impairment 12/19/2022 Upper respiratory tract infection 10/13/2022 Assessment & Plan (10/13/2022 11:13 AM EST): Supportive care, stay hydrated, rest. Follow up if symptoms worsen or persist. Monitor for new symptoms. Go to the ER for respiratory distress or severe symptoms. Rx Z-Bird, Jocy Nathan, follow-up if symptoms or not improving over the next few days or if symptoms worsen. Advised to use albuterol when she has wheeze Delayed gastric emptying -based on nuclear study 2017 09/07/2022 Headache 05/09/2022 Acute neck pain 05/09/2022 Carpal tunnel syndrome 05/09/2022 Rheumatoid arthritis involvi ng multiple sites with positive rheumatoid factor 05/09/2022 Acute pain of left shoulder 05/09/2022 Acute chest pain 05/08/2022 Shortness of breath 02/25/2022 Precordial pain 02/25/2022 Dizziness 02/25/2022 History of DVT (deep vein thrombosis) 02/25/2022 Background retinopathy due to secondary diabetes 02/11/2021 Overview (02/17/2021): Dr Hatch Acute UTI (urinary tract infection) 01/13/2021 Epistaxis 01/13/2021 Sepsis 01/13/2021 Pneumonia due to COVID-19 virus 10/27/2020 Acute deep vein thrombosis (DVT) of left peronea l vein 06/29/2020 Type 2 diabetes mellitus wit h retinopathy, without long-term current use of insulin 06/26/2020 Hypokalemia 12/13/2019 Hypomagnesemia 12/13/2019 History of Araseli fundoplication 09/16/2019 Diabetes mellitus type 2 in obese 05/13/2019 Overview (01/15/2024): 01/15/24 REGULATORY IMO CHANGES Angina pectoris 05/03/2019 Overview (12/31/2020): a. Remote [facility] -- data deficit: No reported disease. b. L ight ID with medical treatment. c. [facility], 05/12/2011, Dr. Mosley: Angiographically normal coronary arteries. Diastolic dysfunction. Mitral valve prolapse. d. MPS 3-5-21: Left ventricular ejection fraction is normal. (Calculated EF = 65%). Myocardial perfusion imaging indicates a normal myocardial perfusion study with no evidence of ischemia. MVP (mitral valve prolapse) 10/12/2016 Overview (12/31/2020): a. Echocardiogram, 05/12/2011: Normal LV systolic function, LVEF 55% to 60%. Mitral valve leaflets appear myxomatous. Mitral valve prolapse. Mild to moderate MR. b. Echocardiogram, 09/04/2012: Normal LV function with EF of 60% to 65%, mild mitral and trace tricuspid regurgitation. Trivial posterior pericardial effusion which was felt to be physiologic. No other abnormalities. Palpitations 10/12/2016 Overview (08/27/2020): 2-week monitor, December 2019: Sinus rhythm with rare APCs and PVCs. Rare short (3-7 beat) SVT Migraine 10/12/2016 Osteoarthritis 10/12/2016 Assessment & Plan (01/30/2025 11:05 AM EDT): Tylenol PRN is ok as directed She has tried oral and topical NSAIDS PRN She has taken gabapentin for neuropathic pain She has taken Tramadol PRN She has taken Oxycodone PRN She has done physical therapy She has seen orthopaedic surgeons She had knee replacement surgery She has had back surgery Assessment & Plan (08/27/2024 11:29 AM EST): Tylenol PRN is ok as directed She has tried oral and topical NSAIDS PRN She has taken gabapentin for neuropathic pain She has taken Tramadol PRN She has taken Oxycodone PRN She has done physical therapy She has seen orthopaedic surgeons She had knee replacement surgery She has had back surgery Assessment & Plan (04/12/2024 12:56 PM EDT): Tylenol PRN is ok as directed She has tried oral and topical NSAIDS PRN She has taken gabapentin for neuropathic pain She has taken Tramadol PRN She has taken Oxycodone PRN She has done physical therapy She has seen orthopaedic surgeons She had knee replacement surgery She has had back surgery Depression 05/27/2016 Hearing loss 05/27/2016 Allergic bronchitis 05/20/2016 Allergic rhinitis 05/20/2016 Seropositive rheumatoid arthritis 05/20/2016 Overview (05/20/2016): RA Assessment & Plan (01/30/2025 11:05 AM EDT): [place] [address] Almanzar. + CCP in 2006. Psoriasis developed in 2006. Medication/treatment/interventions tried include: Tylenol, duloxetine, gabapentin, Tramadol, Oxycodone/APAP, Back surgery, Ambien, meloxicam, hydroxychloroquine, MTX/folic acid, Arava, Enbrel, Humira, Actemra, prednisone, diclofenac gel, knee replacement surgery, Physical therapy, she has seen orthopaedic surgeons, sulfasalazine, salsalate, meloxicam, IV Simponi Continue IV Simponi We gave her a handout on OA to take home and review. Prognosis is guarded. She has tried/failed multiple therapeutic options and she has chronic pain Follow up in 3-4 months We gave her a new standing lab order to have done before next visit. Assessment & Plan (08/27/2024 11:29 AM EST): [place] [address] Almanzar. + CCP in 2006. Psoriasis developed in 2006. Medication/treatment/interventions tried include: Tylenol, duloxetine, gabapentin, Tramadol, Oxycodone/APAP, Back surgery, Ambien, meloxicam, hydroxychloroquine, MTX/folic acid, Arava, Enbrel, Humira, Actemra, prednisone, diclofenac gel, knee replacement surgery, Physical therapy, she has seen orthopaedic surgeons, sulfasalazine, salsalate, meloxicam, IV Simponi Continue IV Simponi We gave her a handout on RA to take home and review. Prognosis is guarded. She has tried/failed multiple therapeutic options and she has chronic pain Follow up in 3-4 months We gave her a new standing lab order to have done before next visit. Assessment & Plan (04/12/2024 12:56 PM EDT): [place] [address] Almanzar. + CCP in 2006. Psoriasis developed in 2006. Medication/treatment/interventions tried include: Tylenol, duloxetine, gabapentin, Tramadol, Oxycodone/APAP, Back surgery, Ambien, meloxicam, hydroxychloroquine, MTX/folic acid, Arava, Enbrel, Humira, Actemra, prednisone, diclofenac gel, knee replacement surgery, Physical therapy, she has seen orthopaedic surgeons, sulfasalazine, salsalate, meloxicam Most recently we prescribed her SQ Actemra. She reports she took three injections and the stopped them. She reports one of her other providers told her to stop the Actemra. She is not sure who this was or why they wanted her to stop it. We will try and PA a different biologic agent. Risks and benefits reviewed Prognosis is guarded. She has tried/failed multiple therapeutic options and she has chronic pain Follow up in 3-4 months Chronic cough 05/20/2016 Chronic pain 05/20/2016 Essential hypertension 05/20/2016 GERD without esophagitis 05/20/2016 Hiatal hernia 05/20/2016 High risk medication use 05/20/2016 Assessment & Plan (01/30/2025 11:05 AM EDT): IV Simponi every 8 weeks for RA 1. Hold if the patient develops infection. 2. Avoid live vaccines while on this medication. 3. No recent serious infections 4. No infusion reactions 5. Also hold this medication perioperatively if the patient is going to have a surgical procedure Assessment & Plan (08/27/2024 11:29 AM EST): IV Simponi every 8 weeks for RA 1. Hold if the patient develops infection. 2. Avoid live vaccines while on this medication. 3. No recent serious infections 4. No infusion reactions 5. Also hold this medication perioperatively if the patient is going to have a surgical procedure Assessment & Plan (04/12/2024 12:56 PM EDT): She is not taking Actemra. See above Hyperlipidemia 05/20/2016 Hypothyroidism 05/20/2016 Postmenopausal status 05/20/2016 Obesity 05/20/2016 Overview (10/12/2016): Obesity, BMI 33. Resolved Problems Problem Noted Date Diagnosed Date Resolved Date UTI (urinary tract infection) 01/11/2024 01/13/2024 Upper airway cough syndrome 05/18/2023 05/18/2023 Asthma 05/08/2022 05/18/2023 DVT (deep venous thrombosis) 10/27/2020 02/25/2022 Acute bronchitis due to infection 12/13/2019 08/27/2020 Acute asthma exacerbation 12/13/2019 Fever in adult 12/13/2019 08/27/2020 Diarrhea 12/13/2019 08/27/2020 Mild persistent asthma witho ut complication - possible asthma (no history of obstructed PFTs). 07/11/2017 05/18/2023 Osteopenia 04/05/2017 01/30/2025 Nausea 05/20/2016 11/22/2019 Rash 05/20/2016 11/22/2019 Sprain of left ankle 05/20/2016 020 Encounters Date Type Department Care Team Description 04/29/2025 9:30 AM EDT Office Visit [facility] PULMONARY & CRITICAL CARE MEDICINE [address] [facility] [address] [place] [address] Maxine Gibson APRN Seasonal allergic rhinitis due to pollen (Primary Dx); Chronic cough; GERD without esophagitis; DEVANG (obstructive sleep apnea)/suspected nocturnal hypoxemia.-by history. Intolerant of NIPPV in past. 04/29/2025 Refill [facility] CARDIOLOGY [address] [facility] [address] [place] [id number] Tristan Mosley MD Med Refill 04/29/2025 Travel 03/28/2025 12:35 PM EDT - 03/28/2025 11:59 PM EDT Hospital Encounter [facility] OUTPATIENT ONCOLOGY CANCER CENTER [address] [facility] [address] [place] [address] Patrice Santana DO Rheumatoid arthritis involving multiple sites with positive rheumatoid factor (Primary Dx) Discharge Disposition: Home or Self Care 03/28/2025 Travel 03/27/2025 Telephone [facility] UROLOGY [address] [facility] [address] [place] [address] Brennan Lee MD MED QUESTION 03/26/2025 10:10 AM EDT Office Visit [facility] UROLOGY [address] [facility] [address] [place] [address] Brennan Lee MD OAB (overactive bladder) (Primary Dx); Urge incontinence; Lower urinary tract symptoms (LUTS) 03/26/2025 Travel 03/12/2025 9:20 AM EDT Office Visit [facility] UROLOGY [address] [facility] [address] [place] [address] Brennan Lee MD Erythema (Primary Dx) 03/12/2025 Travel 03/03/2025 Refill [facility] PRIMARY CARE [address] [facility] [address] [place] [address] Huyen Hall MD 02/20/2025 8:44 AM EDT Anesthesia Event [facility] OR [address] [place] [address] Azael Dunn MD 02/20/2025 8:21 AM EDT - 02/20/2025 10:06 AM EDT Surgery [facility] OR [address] [place] [address] Brennan Lee MD INTERSTIM STAGES 1 AND 2 LEAD AND GENERATOR PLACEMENT 02/20/2025 6:31 AM EDT - 02/20/2025 11:30 AM EDT Hospital Encounter [facility] OR [address] [place] [address] Brennan Lee MD OAB (overactive bladder); Urge incontinence Discharge Disposition: Home or Self Care 02/20/2025 Travel 02/11/2025 10:30 AM EDT Office Visit [facility] UR[facility]Y [id number] [address] Brennan Lee MD OAB (overactive bladder) (Primary Dx); Urge incontinence 02/11/2025 Travel 02/04/2025 9:15 AM EDT Anesthesia Event [facility] OR [address] [place] [address] Primo Brooks Jr., MD 02/04/2025 8:47 AM EDT - 02/04/2025 9:53 AM EDT Surgery [facility] OR [address] [place] [address] Brennan Lee MD INTERSTIM BILATERAL PERC TEST [90589 (CPT )] 02/04/2025 6:48 AM EDT - 02/04/2025 10:57 AM EDT Hospital Encounter [facility] OR [address] [facility] [place] [address] Brennan Lee MD OAB (overactive bladder); Urge incontinence Discharge Disposition: Home or Self Care 02/04/2025 Travel 01/31/2025 11:13 AM EDT - 01/31/2025 11:59 PM EDT Hospital Encounter [facility] OUTPATIENT ONCOLOGY CANCER CENTER [address] [place] [phone] Patrice Santana, Rheumatoid arthritis involving multiple sites with positive rheumatoid factor (Primary Dx) Discharge Disposition: Home or Self Care from Last 3 Months Immunizations Immunization Administration Dates Next Due Flu Vaccine Quad PF >36MO 11/18/2021 Fluzone (or Fluarix & Flulaval for VFC) >6mos ,08/06/2020 Fluzone High-Dose 65+YRS 08/06/2024 Fluzone High-Dose 65+yrs 07/05/2023,08/29/2022 Hepatitis A 09/07/2018 INFLUENZA SPLIT TRI 08/15/2018 Influenza, Unspecified 07/16/2019 PPD Test 06/25/2001 Pneumococcal Conjugate 20-Valent (PCV20) 022 Pneumococcal Polysaccharide (PPSV23) 07/16/2019, 08/24/2010 Shingrix 12/05/2024,10/03/2024 flucelvax quad pfs =>4 YRS 07/16/2019,08/07/2018 Family History 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 Relation Name Comments Heart failure Brother Arthritis Father 0 Asthma Father 0 Hypertension Father 0 Osteopenia Father 0 Rheum arthritis Father 0 Stroke Father 0 Ovarian cancer Maternal Aunt Arthritis Mother 0 Asthma Mother 0 Diabetes Mother 0 Hypertension Mother 0 Migraines Mother 0 Osteopenia Mother 0 Asthma Other Heart failure Other Heart disease Paternal Grandfather 0 Heart disease Paternal Grandmother 0 Arthritis Paternal Uncle Arthritis Sister 1 Hiatal hernia Sister 1 Heart failure Sister 2 Breast cancer Neg Hx Colon cancer Neg Hx Colon polyps Neg Hx Esophageal cancer Neg Hx Relation Name Status Comments Brother Alive Father 0 Maternal Aunt Mother 0 Other Paternal Grandfather 0 Paternal Grandmother 0 Paternal Uncle Sister 1 Alive Sister 2 Alive Social History Tobacco Use Types Packs/Day Years Used Date Smoking Tobacco: Never Passive Smoke Exposure: Past Smokeless Tobacco: Never Tobacco Cessation:Counseling Given: Not Answered Comments: smokes, for 45 years Alcohol Use Standard Drinks/Week Comments No 0 (1 standard drink = 0.6 oz pur e alcohol) [facility] Utilities Answer Date Recorded In the past [...] or training? Not on file Preferred Language [place] 01/28/2025 PHQ-2 Answer Date Recorded Retired [...] F) 04/29/2025 9:36 AM EDT Respiratory Rate 16 03/28/2025 1:27 PM EDT Oxygen Saturation 96% 04/29/2025 9:3 6 AM EDT 1.5L continuous Inhaled Oxygen Concentration - - Weight 89.4 kg (197 lb) 04/29/2025 9:36 AM EDT Height 152.4 cm (5') 04/29/2025 9:36 AM EDT Body Mass Index 38.47 04/29/2025 9:36 AM EDT Plan of Treatment Upcoming Encounters Date Type Department Care Team (Late st Contact Info) Description 05/06/2025 10:30 AM EDT Office Visit [facility] GASTROENTEROLOGY [address] [place] [address] Palak Graham PAArnaldoC [address] [place] [address] 05/23/2025 1:30 PM EDT Hospital Encounter [facility] OUTPATIENT ONCOLOGY CANCER CENTER [address] [place] [address] 06/03/2025 10:40 AM EDT Appointment [facility] [place]O [address] [place] [address] 06/05/2025 10:45 AM EDT Office Visit [facility] RHEUMATOLOGY [address] [facility] [address] [place] [phone] John Sheppard APRN 330 [facility] [address] [place] [address] 07/01/2025 11:00 AM EDT Office Visit [facility] UROLOGY [address] [facility] [address] [place] [address] Brennan Lee MD [address] [facility] [address] [place] [address] 07/31/2025 10:00 AM EDT Office Visit [facility] PULMONARY & CRITICAL CARE MEDICINE [address] [facility] [address] [place] [phone] Maxine Gibson, RELOCATION COMMISSIONER [address] [place] [address] Health Maintenance Due Date Last Done Comments COLOGUARD 2002 COLON CANCER SCREENING 5 YEA R SIGMOIDOSCOPY 2002 CT COLONOGRAPHY 2002 FIT Testing (1 year) 2002 URINE MICROALBUMIN-CREATININ E RATIO (uACR) 04/13/2022 04/13/2021, 04/07/2020, 07/16/2019 TDAP/TD VACCINES (2 - Td or Tdap) 04/24/2022 012 DIABETIC FOOT EXAM 01/05/2024 01/04/2023, 0 01/04/2023, 01/04/2023, Additional history exists 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 02/07/2024 ANNUAL WELLNESS VISIT 04/13/2024 04/13/2023 , 04/13/2021, 04/07/2020, Additional history exists FECAL OCCULT BLOOD TEST 04/13/2024 04/13/20, 01/14/2021, 11/07/2018 COVID-19 Vaccine (2023-2 5 season) 2024 DIABETIC EYE EXAM 07/20/2024 07/20/2023, , 02/11/2021, Additional history exists HEMOGLOBIN A1C 10/16/2024 04/15/2024, 12/15, 01/03/2024, Additional history exists LIPID PANEL 02/20/2025 02/21/2024, 06/17, 12/19/2022, Additional history exists MAMMOGRAM 06/12/2025 06/12/2023, 07/18, 07/09/2019, Additional history exists INFLUENZA VACCINE 07/16/2025 08/06/2024, , 08/29/2022, Additional history exists DXA SCAN 04/10/2026 04/10/2024, 07/17 (Patient-Reported (Performed Externally)), 08/14/2020, Additional history exists COLONOSCOPY 07/14/2033 07/14/2023, 07/16, 11/14/2013 COLORECTAL CANCER SCREENING 07/14/2033 Pneumococcal Vaccine 50+ Completed 022, 07/16/2019, 08/24/2010 HEPATITIS C SCREENING Completed 08/17/2024 , 04/12/2024, 01/03/2017 ZOSTER VACCINE Completed 12/05/2024, 10/03/2024 Goals Goal Patient Goal Type Associated Problems [...] each week instead of every day. Notes: Medical Devices Implanted Type Area Health And Social Care Teacher Device Identifier Shelf Expiration Date Model / Serial / Lot Pk Imp Trial Basic Bilat W/Ext Neurostm/Pne Ld Imp Kt - [id number] Implanted:Qty: 1 on 02/04/2025 by Brennan Lee MD at [facility] Implant N/A: Back [employer] 07/15/2025 [id number] / / [id number] Ld Neurostm Sacral Pne - [id number] Implanted:Qty: 1 on 02/04/2025 by Brennan Lee MD at [facility] Implant Back [employer] 02/20/2027 1901 / / [id number] Neurostm Sacral/Nerv [employer] Nonrechg W/Torq Wrench - [id number] Implanted:Qty: 1 on 02/20/2025 by Brennan Lee MD at [facility] Implant N/A: Back [employer] 12/12/2025 [id number] / / [id number] Kt Ld Stim Tined [employer] W/2/Sty Str/Crv - [id number] Implanted:Qty: 1 on 02/20/2025 by Brennan Lee MD at [facility] Implant N/A: Back [employer] 02/27/2027 [id number] / / [id number] Procedures Procedure Name Priority Date/Time Associated Diagnosis Comments FL C ARM DURING SURGERY Routine 02/20/2025 9:31 AM EDT ANESTHESIA INTUBATION Routine 02/20/2025 8:47 AM EDT INTERSTIM STAGES 1 AND 2 LEAD AND GENERATOR PLACEMENT 02/20/2025 8:29 AM EDT OAB (overactive bladder) Urge incontinence Special Needs [employer] VENDOR CLAUDETTE ACHER NOTIFIED 02/12/25+ COMPREHENSIVE METABOLIC PANEL STAT 02/20/2025 7:09 AM EDT CBC (NO DIFF) STAT 02/20/2025 7:09 AM EDT POCT GLUCOSE FINGERSTICK Routine 02/20/2025 7:03 AM EDT LA ELEC PRETTY IMPLT NPGT PHYS/QHP W/O PROGRAMMING 02/04/2025 9:00 AM EDT OAB (overactive bladder) Urge incontinence Special Needs (OPEN ROOM)REP CLAUDETTE ACHER NOTIFIED 01/20/25 + POCT GLUCOSE FINGERSTICK Routine 02/04/2025 8:02 AM EDT POCT GLYCOSYLATED HEMOGLOBIN (HGB A1C) Routine 04/15/2024 3:58 PM EDT Type 2 diabetes mellitus with retinopathy, without long-term current use of insulin, macular edema presence unspecified, unspecified laterality, unspecified retinopathy severity HEPATITIS PANEL, ACUTE Routine 04/12/2024 11:29 AM EDT Seropositive rheumatoid arthritis High risk medication use Primary osteoarthritis involving multiple joints Age-related osteoporosis without current pathological fracture Fatigue, unspecified type SCANNED - DEXA Routine 04/10/2024 12:14 PM EDT LIPID PANEL Routine 02/21/2024 10:20 AM EDT Type 2 diabetes mellitus with hyperglycemia, without long-term current use of insulin Essential hypertension SCANNED - EYE EXAM 07/20/2023 MAMMO SCREENING DIGITAL TOMOSYNTHESIS BILATERAL W CAD Routine 06/12/2023 8:41 AM EDT Encounter for screening mammogram for malignant neoplasm of breast POCT OCCULT BLOOD STOOL Routine 04/13/2023 11:32 AM EDT Encounter for screening fecal occult blood testing MICROALBUMIN / CREATININE URINE RATIO Routine 04/13/2021 2:11 PM EDT Type 2 diabetes mellitus with hyperglycemia, without long-term current use of insulin SCANNED - INFLUENZA 07/16/2019 SCANNED - COLONOSCOPY 11/14/2013 from Last 3 Months or Most Recently Relevant to Health Maintenance Results * FL C Arm During Surgery (02/20/2025 9:31 AM EDT) Narrative SYSTEMGENERATED, DOCUMENTATION - 02/20/2025 9:32 AM EDT This procedure was auto-finalized with no dictation required. Brennan Lee MD IMG FLUOROSCOPY ORDERABLES Maira l Result * BH AN ETT AIRWAY (02/20/2025 8:47 AM EDT) Narrative Junior Milan Feng CRNA - 02/20/2025 8:47 AM EDT Junior Milan Feng CRNA 02/20/2025 8:48 AM Airway Reason: elective Date/Time: 02/20/2025 8:47 AM Airway not difficult General Information and Staff Patient location during procedure: [place] AWS DEVELOPER/CAA: Junior Milan Feng CRNA Indications and Patient Condition Indications for airway management: airway protection Preoxygenated: yes MILS not maintained throughout Mask difficulty assessment: 0 - not attempted Final Airway Details Final airway type: endotracheal airway Successful airway: ETT Cuffed: yes Successful intubation technique: direct laryngoscopy Endotracheal tube insertion site: oral Blade: Luis Eduardo Blade size: 3 ETT size (mm): 7.0 Cormack-Lehane Classification: grade I - full view of glottis Placement verified by: chest auscultation and capnometry Measured from: lips ETT/EBT to lips (cm): 20 Number of attempts at approach: 1 Assessment: lips, teeth, and gum same as pre-op and atraumatic intubation Additional Comments Negative epigastric sounds, Breath sound equal bilaterally with symmetric chest rise and fall Junior Milan Feng CRNA ANESTHESIA ORDERABLES Fin al Result * CBC (No Diff) (02/20/2025 7:09 AM EDT) WBC 7.15 3.40 - 10.80 10*3/mm3 02/20/2025 7:29 AM EDT [facility] RBC 4.33 3.77 - 5.28 10*6/mm3 02/20/2025 7:29 AM EDT [facility] Hemoglobin 12.9 12.0 - 15.9 g/dL 02/20/2025 7:29 AM EDT [facility] Hematocrit 39.6 34.0 - 46.6 % 02/20/2025 7:29 AM EDT [facility] MCV 91.5 79.0 - 97.0 fL 02/20/2025 7:29 AM EDT [facility] MCH 29.8 26.6 - 33.0 pg 02/20/2025 7:29 AM EDT [facility] MCHC 32.6 31.5 - 35.7 g/dL 02/20/2025 7:29 AM EDT [facility] RDW 13.2 12.3 - 15.4 % 02/20/2025 7:29 AM EDT [facility] RDW-SD 43.7 37.0 - 54.0 fl 02/20/2025 7:29 AM EDT [facility] MPV 9.7 6.0 - 12.0 fL 02/20/2025 7:29 AM EDT [facility] Platelets 205 140 - 450 10*3/mm3 02/20/2025 7:29 AM EDT [facility] Blood Line / Unknown 02/20/2025 7: 09 AM EDT 02/20/2025 7:09 AM EDT us Azael Dunn MD LAB BLOOD ORDERAB LES Final Result [facility]
[address] [place] [address], * (ABNORMAL) Comprehensive Metabolic Panel (02/20/2025 7:09 AM EDT) Glucose 105(H) 65 - 99 mg/dL 02/20/2025 7:43 AM EDT [facility] BUN 20 8 - 23 mg/dL 02/20/2025 7:43 AM EDT [facility] Creatinine 0.82 0.57 - 1.00 mg/dL 02/20/2025 7:43 AM EDT [facility] Sodium 136 136 - 145 mmol/L 02/20/2025 7:43 AM EDT [facility] Potassium 4.3 3.5 - 5.2 mmol/L 02/20/2025 7:43 AM EDT [facility] Comment:Slight hemolysis det ected by analyzer. Result may be falsely elevated. Chloride 101 98 - 107 mmol/L 02/20/2025 7:43 AM EDT [facility] CO2 24.0 22.0 - 29.0 mmol/L 02/20/2025 7:43 AM EDT [facility] Calcium 9.0 8.6 - 10.5 mg/dL 02/20/2025 7:43 AM EDT [facility] Total Protein 7.2 6.0 - 8.5 g/dL 02/20/2025 7:43 AM EDT [facility] Albumin 4.0 3.5 - 5.2 g/dL 02/20/2025 7:43 AM EDT [facility] ALT (SGPT) 20 1 - 33 U/L 02/20/2025 7:43 AM EDT [facility] AST (SGOT) 19 1 - 32 U/L 02/20/2025 7:43 AM EDT [facility] Alkaline Phosphatase 89 39 - 117 U/L 02/20/2025 7:43 AM EDT [facility] Total Bilirubin 0.3 0.0 - 1.2 mg/dL 02/20/2025 7:43 AM EDT [facility] Globulin 3.2 gm/dL 02/20/2025 7:43 AM EDT [facility] Comment:Calculated Result A/G Ratio 1.3 g/dL 02/20/2025 7:43 AM EDT [facility] BUN/Creatinine Ratio 24.4 7.0 - 25.0 02/20/2025 7:43 AM EDT [facility] Anion Gap 11.0 5.0 - 15.0 mmol/L 02/20/2025 7:43 AM EDT [facility] eGFR 78.5 >60.0 mL/min/1.7 3 02/20/2025 7:43 AM EDT [facility] Blood Line / Unknown 02/20/2025 7: 09 AM EDT 02/20/2025 7:09 AM EDT [facility] - 02/20/2025 7:43 AM EDT GFR Categories in Chronic Kidney Disease (CKD) GFR Category GFR (mL/min/1.73) Interpretation G1 90 or greater Normal or high (1) G2 60-89 Mild decrease (1) G3a 45-59 Mild to moderate decrease G3b 30-44 Moderate to severe decrease G4 15-29 Severe decrease G5 14 or less Kidney failure (1)In the absence of evidence of kidney disease, neither GFR category G1 or G2 fulfill the criteria for CKD. eGFR calculation 2020 CKD-EPI creatinine equation, which does not include race as a factor Azael Dunn MD LAB BLOOD ORDERAB LES Final Result [facility]
[address] [place] [address], * POC Glucose Once (02/20/2025 7:03 AM EDT) Only the most recent of2 resultswithin the time period is included. [facility] Signature Glucose 100 70 - 130 mg/dL 02/20/2025 7:07 AM EDT [facility] Blood 02/20/2025 7:03 AM EDT 02/20/2025 7:07 AM EDT Brennan Lee MD POINT OF CARE TEST ORDERABLES F inal Result [facility]
[address] [place] [address], * (ABNORMAL) POC Glycosylated Hemoglobin (Hb A1C) (04/15/2024 3:58 PM EDT) Hemoglobin A1C 5.6 4.5 - 5.7 % [facility] Lot Number [id number] [facility] Expiration Date 12/31/2025 [facility] Blood 04/15/2024 3:58 PM EDT Huyen Pal MD POINT OF CARE TEST ORDERABL ES Final Result [facility]
[address] [place] [address], * (ABNORMAL) Hepatitis Panel, Acute (04/12/2024 11:29 AM EDT) Hepatitis B Surface Ag Non-Reacti ve Non-Reacti ve 04/13/2024 1:52 AM EDT [facility] Hep A IgM Reactive(A ) Non-Reacti ve 04/13/2024 1:52 AM EDT [facility] Hep B C IgM Non-Reacti ve Non-Reacti ve 04/13/2024 1:52 AM EDT [facility] Hepatitis C Ab Non-Reacti ve Non-Reacti ve 04/13/2024 1:52 AM EDT [facility] Blood Venipuncture / Unknown 04/12/2024 11:29 AM EDT 04/12/2024 11:32 AM EDT [facility] - 04/13/2024 1:52 AM EDT Results may be falsely decreased if patient taking Biotin. Patrice Santana DO LAB BLOOD ORDERABLES F inal Result [facility]
[address] [place] [address], * DEXA Scan (04/10/2024 12:14 PM EDT) Anatomical Region Laterality Modality Other Historical Provider MD PEDRAZA CHART REVIEW TABS Maira l Result * (ABNORMAL) Lipid Panel (02/21/2024 10:20 AM EDT) Total Cholesterol 143 0 - 200 mg/dL 02/21/2024 11:45 PM EDT [facility] Triglycerides 212(H) 0 - 150 mg/dL 02/21/2024 11:45 PM EDT [facility] HDL Cholesterol 37(L) 40 - 60 mg/dL 02/21/2024 11:45 PM EDT [facility] LDL Cholesterol 71 0 - 100 mg/dL 02/21/2024 11:45 PM EDT [facility] VLDL Cholesterol 35 5 - 40 mg/dL 02/21/2024 11:45 PM EDT [facility] LDL/HDL Ratio 1.72 02/21/2024 11:45 PM EDT [facility] Blood Structure of right upper limb / Unknown Venipuncture / Unknown 02/21/2024 10:20 AM EDT 02/21/2024 10:20 AM EDT [facility] - 02/21/2024 11:45 PM EDT Cholesterol Reference Ranges (U.S. Department of Health and Human Services ATP III Classifications) Desirable <200 mg/dL Borderline High 200-239 mg/dL High Risk >240 mg/dL Triglyceride Reference Ranges (U.S. Department of Health and Human Services ATP III Classifications) Normal <150 mg/dL Borderline High 150-199 mg/dL High 200-499 mg/dL Very High >500 mg/dL HDL Reference Ranges (U.S. Department of Health and Human Services ATP III Classifications) Low <40 mg/dl (major risk factor for CHD) High >60 mg/dl ('negative' risk factor for CHD) LDL Reference Ranges (U.S. Department of Health and Human Services ATP III Classifications) Optimal <100 mg/dL Near Optimal 100-129 mg/dL Borderline High 130-159 mg/dL High 160-189 mg/dL Very High >189 mg/dL Huyen Pal MD LAB BLOOD ORDERABLES Final Result [facility]
[address] [place] [address], * SCANNED - EYE EXAM (07/20/2023) Anatomical Region Laterality Modality Other Huyen Pal MD CHART REVIEW TABS Final Result * Mammo Screening Digital Tomosynthesis Bilateral With CAD (06/12/2023 8:41 AM EDT) Anatomical Region Laterality Modality Breast N/A Mammography 06/13/2023 6:26 PM EDT Impressions 06/13/2023 6:28 PM EDT No mammographic findings suspicious for malignancy. RECOMMENDATION: Continue annual screening mammography. BI-RADS CATEGORY 1, NEGATIVE. CAD was utilized. The standard false-negative rate of mammography is between 10% and 25%. Complex patterns or increased breast density will markedly elevate the false-negative rate of mammography. A letter, in lay terminology, with the results of this exam will be mailed to the patient. This report was finalized on 06/13/2023 6:[address] Starr Umaña MD. Narrative 06/13/2023 6:28 PM EDT BILATERAL SCREENING MAMMOGRAM WITH TOMOSYNTHESIS: HISTORY: The patient has no personal history or significant family history of breast cancer and no focal breast complaints at the time of screening mammography. TECHNIQUE: Bilateral CC and MLO low dose, full field digital mammographic images were obtained with 2-D acquisitions and tomosynthesis. COMPARISON: 08/14/2020, 07/09/2019, 07/20/2017, 11/21/2013 FINDINGS: There are scattered areas of fibroglandular density. The fibroglandular pattern is stable. There are no suspicious masses, worrisome calcifications, nonsurgical areas of architectural distortion, or other secondary signs of malignancy. Huyen Pal MD IMG MAMMOGRAPHY ORDERABLES Final Result * POCT occult blood x 1 stool (04/13/2023 11:32 AM EDT) Fecal Occult Blood Negative Negative [facility] Lot Number [id number] [facility] Expiration Date 11/15/2024 [facility] DEVELOPER LOT NUMBER [id number] [facility] DEVELOPER EXPIRATION DATE 02/12/2025 [facility] Positive Control Positive Positive [facility] Negative Control Negative Negative [facility] Stool 04/13/2023 11:3 2 AM EDT Huyen Pal MD POINT OF CARE TEST ORDERABL ES Final Result [facility]
[address] [place] [address], * Microalbumin / Creatinine Urine Ratio - Urine, Clean Catch (04/13/2021 2:11 PM EDT) Creatinine, Urine 31.9 Not Estab. mg/dL [facility] Microalbumin, Urine <3.0 Not Estab. ug/mL [facility] Comment:Verified by repeat analysis Microalbumin/Cre atinine Ratio <9 0 - 29 mg/g creat [facility] Comment: Normal: 0 - 29 Moderately increased: 30 - 300 Severely increased: >300 Urine Urine specimen collection, clean catch / Unknown 04/13/2021 2:11 PM EDT 04/14/2021 Comment:URINE RELEASE TO [facility] Narrative [facility] ([facility]) - 04/14/2021 10:09 AM EDT Performed at: 01 - [facility] [address] [place], [place] [id number] [employer] Cooper: Jean Stephens PhD, Phone: [phone] Huyen Pal MD URINE ORDERABLES Final Resu lt [facility] ([facility]) [address] [place] [address], [facility] [address] [place] [address], * SCANNED - INFLUENZA (07/16/2019) Huyen Pal MD CHART REVIEW TABS Final Result * SCANNED - COLONOSCOPY (11/14/2013) Lizbeth Ibarra MD CHART REVIEW TABS Final Result from Last 3 Months or Most Recently Relevant to Health Maintenance Additional Health Concerns Infection Onset Date Last Indicated Hepatitis A 04/12/2024 04/12/2024 Insurance [employer] MEDICARE ADVANTAGE [facility] [place] MED[place] QMB Advance Directives Documents on File Type Date Recorded Patient Cook Dinner Expl anation PATIENT ADVANCE DIRECTIVES - SCAN 01/30/2025 11:24 AM ADV DIRCTV 2024 * CPR (Attempt to Resuscitate) (Latest Code Status on File) Date Activated Date Inactivated Comments 01/11/2024 1:39 AM 01/13/2024 2:52 PM Question Answer Comments Code Status (Patient has no pulse and is not breathing): CPR (Attempt to Resuscitate) Medical Interventions (Patie nt has pulse or is breathing): Full Support Level Of Support Discussed With: Patient * CPR (Attempt to Resuscitate) Date Activated Date Inactivated Comments 05/09/2022 12:21 AM 05/10/2022 4:03 PM Question Answer Comments Code Status (Patient has no pulse and is not breathing): CPR (Attempt to Resuscitate) Medical Interventions (Patie nt has pulse or is breathing): Full Support Level Of Support Discussed With: Patient * CPR (Attempt to Resuscitate) Date Activated Date Inactivated Comments 01/13/2021 3:40 AM 01/16/2021 4:08 PM Question Answer Comments Code Status (Patient has no pulse and is not breathing): CPR (Attempt to Resuscitate) Medical Interventions (Patie nt has pulse or is breathing): Full Level Of Support Discussed With: Patient * CPR (Attempt to Resuscitate) Date Activated Date Inactivated Comments 10/27/2020 3:28 PM 11/05/2020 5:28 PM Question Answer Comments Code Status (Patient has no pulse and is not breathing): CPR (Attempt to Resuscitate) Medical Interventions (Patie nt has pulse or is breathing): Full Level Of Support Discussed With: Patient * CPR (Attempt to Resuscitate) Date Activated Date Inactivated Comments 12/13/2019 1:30 AM 12/17/2019 3:25 PM Question Answer Comments Code Status (Patient has no pulse and is not breathing): CPR (Attempt to Resuscitate) Medical Interventions (Patie nt has pulse or is breathing): Full Level Of Support Discussed With: Patient Care Teams Automobile Service Station Attendant Relationship Specialty Start Date End Date Reza Panchal MD [address] [place] [address] PCP - General Family Medicine 09/30/24
--- OUTSIDE RECORDS SUMMARY | 2025-05-02 13:51 | XMS_ITS | Encounter Summary ---
[facility] Address [address] [place] [address] Care Team Providers Care Doorshaker Name Role Phone Reza Panchal MD Primary Care Provider [phone] Reason for Visit * Reason Comments Med Refill Encounter Details Date Type Department Care Team (Late st Contact Info) Description 03/03/2025 Refill [facility] [address] [phone] Huyen Hall MD [address] [facility] [address] [place] [address] Social History Tobacco Use Types Packs/Day Years Used Date Smoking Tobacco: Never Passive Smoke Exposure: Past Smokeless Tobacco: Never Comments: smokes, for 45 years Alcohol Use Standard Drinks/Week Comments No 0 (1 standard drink = 0.6 oz pur e alcohol) [facility] Utilities Answer Date Recorded In the past 12 months has [employer] electric, gas, oil, or water company threatened [...] or training? Not on file Preferred Language Salvadorean 01/28/2025 PHQ-2 Answer Date Recorded Retired PHQ-9: Brief Depression Severity Measure Score 7 05/20/2024 Comments No Sex and Gender Information Value Date Recorded Sex Assigned at Female 01/09/2025 11:01 AM EDT Legal Sex Female 12:37 PM EDT Gender Identity Not on file Sexual Orientation Not on file documented as of this encounter Miscellaneous Notes * Telephone Encounter - Emily Galarza - 03/03/2025 9:39 AM EDT Images from the original note were not included. Name from pharmacy: [facility] CL MICRO 10MEQ ER TABS Will file in chart as: potassium chloride (KLOR-CON M10) 10 MEQ CR tablet The original prescription was discontinued on 04/12/2024 by Patrice Santana DO for the following reason: Patient Reported Not Taking. Renewing this prescription may not be appropriate. Sig: TAKE 1 TABLET BY MOUTH DAILY Disp: 90 tablet Refills: 3 (Pharmacy requested: Not specified) Start: 03/03/2025 Class: Normal Non-formulary Last ordered: 1 year ago (01/03/2024) by Huyen Pal MD Potassium Supplement Protocol Failed Medication is on active med list documented in this encounter Plan of Treatment Upcoming Encounters Date Type Department Care Team (Late st Contact Info) Description 05/06/2025 10:30 AM EDT Office Visit [facility] [address] [place] [phone] Palak Graham PA-C [address] [place] [address] 05/23/2025 1:30 PM EDT Hospital Encounter [facility] [address] [place] [address] 06/03/2025 10:40 AM EDT Appointment [facility]O [address] [place] [phone] 06/05/2025 10:45 AM EDT Office Visit [facility] RHEUMAT[facility]Y [address] [place] [phone] John Sheppard APRN [address] [place] [address] 07/01/2025 11:00 AM EDT Office Visit [facility] UR[facility] [address] [facility] [address] [place] [address] Brennan Lee MD [address] [facility] [address] [place], [place] [id number] 07/31/2025 10:00 AM EDT Office Visit [facility] MEDICINE [address] [facility] [address] [place] [phone] Maxine Gibson, SENIOR BENEFITS SPECIALIST [address] [place] [address] documented as of this encounter Goals Goal [...] documented as of this encounter Care Teams Doorshaker Relationship Specialty Start Date End Date Reza Panchal MD [address] [place] [address] PCP - General Family Medicine 09/30/24 documented as of this encounter
--- OUTSIDE RECORDS SUMMARY | 2025-05-02 13:51 | XMS_ITS ---
Author Name Ephraim RN, REAR ADMIRAL, Leigh martinez Sarina Address [address] [address] Phone [phone] Organization [facility] Care Team Providers Care Director Name Role Phone Ivonne Ye Unavailable [phone] Reason for Referral Not Available Allergies, adverse [...] 50 mg Tab TAKE 1 TABLET BY [facility] ONCE DAILY IN AM WITH FOOD [...] mg Cap TAKE 1 CAPSULE BY [facility] TWICE DAILY FOR 10 DAYS [...] EVERY 12 HOURS 2024-01-03 No Data Available Piiisnxg-Ultxdeczj-Rwlarilz [id number] Suspension SHAKE LIQUID AND INSTILL 1 DROP [...] mplaint [facility] [place], [place], [place] 12/25/2024 Encntr for f/u exam aft trtm t for cond oth than malig neoplmSepsis, unspecified organism [facility] 7 [facility] [place] 12/25/2024 Encntr for f/u exam aft trtm t for cond oth than malig neoplmSepsis, unspecified organism [facility] 7 Day [place] 12/25/2024 Encntr for f/u exam aft trtm t for cond oth than malig neoplmSepsis, unspecified organism [facility] 7 [facility] [place] 12/25/2024 Encntr for f/u exam aft trtm t for cond oth than malig neoplmSepsis, unspecified organism Telephone E/M Service; 5-10 min of Medical Discussion (Audio Only) [place], 12/27/2024 Sepsis, unspecified organism Telephone E/M Service; 5-10 min of Medical Discussion (Audio Only) [place], 12/27/2024 Sepsis, unspecified organism Vital Signs Date of Collection Vitals 2024-12-25 14:07:15 BP Diastolic - 79.0 mm[Hg]BP Systolic - 143.0 mm[Hg]Heart Rate - 92.0 /min Social History Sex Female History of Procedures Procedures Service Procedure code Service date Servicing provider Phone# [facility] 7 Day Disch [id number] 2024-12-25 No Data Available No Data Avail [...] 5-10 min of Medical Discussion (Audio Only) [id number] 2024-12-27 No Data Available No Data Availa [...] getting around the house wellLana Erica is POA/claims vice president - she comes over and cooks meals, cleans the house, brings her to appts and the grocery store because pt gets out of breath with too much walkingPD will be a phone visit (Cannot be the following states: [place], [place], [place], [place], [place], [place], [place], [place], [place])Pt Agreed to a post discharge visit with a [facility] Provider: with Ivelisse Reed Friday, December 27, 2024 4:00pm ESTRN reinforced availability of UC provider 24/ for 30 days after discharge and encouraged CB w/ any concerns or if pt is worse in any way. Advised pt to call to reach our staff.Needs/concerns for [facility] provider to address during PD visit: 1) [...] review 2024-12-27 Type of Visit: [facility]: [facility] Date: 12/19/24Discharge diagnosis: Sepsis, unspecified [...]
--- OUTSIDE RECORDS SUMMARY | 2025-05-02 13:51 | XMS_ITS | Encounter Summary ---
Author Organization [facility] Address [address] [place] [address] Care Team Providers Care Guidance Adviser Name Role Phone Reza Panchal MD Primary Care Provider +1- [phone] Encounter Details Date Type Department Care Team (Latest Contact Info) Description 03/26/2025 Travel Social History Tobacco Use Types Packs/Day Years Used Date Smoking Tobacco: Never Passive Smoke Exposure: Past Smokeless Tobacco: Never Comments: smokes, for 45 years Alcohol Use Standard Drinks/Week Comments No 0 (1 standard drink = 0.6 oz pur e alcohol) [facility] Utilities Answer Date Recorded In the past 12 months has [employer] electric, gas, oil, or water company threatened [...] or training? Not on file Preferred Language Singaporean 01/28/2025 PHQ-2 Answer Date Recorded Retired PHQ-9: [...] 05/06/2025 10:30 AM EDT Office Visit [facility] [address] [place] [address] Palak Graham PA-C [address] [place] [address] 05/23/2025 1:30 PM EDT Hospital Encounter [facility] 1700 [facility] [address] [place] [address] 06/03/2025 10:40 AM EDT Appointment [facility] MINERVA YOEL [address] [place] [address] 06/05/2025 10:45 AM EDT Office Visit [facility] RHEUMATOLOGY 330 [facility] 100 [place] [address] John Sheppard APRN 330 [facility] [place] [address] 07/01/2025 11:00 AM EDT Office Visit [facility] UROLOGY 1760 [facility] [address] [place] [address] Brennan Lee MD 1760 [facility] [address] [place] [address] 07/31/2025 10:00 AM EDT Office Visit [facility] PULMONARY & CRITICAL CARE MEDICINE 3000 [facility] [address] [place] [phone] Maxine Gibson, SAP BPC ARCHITECT [address] [place] [address] documented as of this encounter Goals Goal [...] documented as of this encounter Care Teams Guidance Adviser Relationship Specialty Start Date End Date Reza Panchal MD [address] [place] [address] PCP - General Family Medicine 09/30/24 documented as of this encounter
--- OUTSIDE RECORDS SUMMARY | 2025-05-02 13:52 | XMS_ITS | Encounter Summary ---
Author Organization Healthcare Address [address] [place] [address] Care Team Providers Care Channeler Runner Name Role Phone Reza Panchal MD Primary Care Provider +1- [phone] Encounter Details Date Type Department Care Team (Late st Contact Info) Description 08/17/2024 Ophth Exam [facility] - Pediatrics [address] [place] [address] Tian Ramírez MD [address] [place] [address] Social History Tobacco Use Types Packs/Day [...] Behavior (Lifetime) No 12:47 AM EDT Clines, Ebnita C, RN documented as of this encounter Plan of Treatment Not on file documented as of this encounter Visit Diagnoses Not on filedocumented in this encounter Care Teams Channeler Runner Relationship Specialty Start Date End Date Reza Panchal MD [address] [place] [address] PCP - General 08/17/24 documented as of this encounter
--- OUTSIDE RECORDS SUMMARY | 2025-05-02 13:52 | XMS_ITS | Encounter Summary ---
Author [facility] Address [address] [place] [address] Care Team Providers Care Collet Making Machine Operator Name Role Phone Reza Panchal MD Primary Care Provider +1- [phone] Encounter Details Date Type Department Care Team (Late st Contact Info) Description 01/15/2025 Results Follow-Up [facility] RHEUMATOLOGY [address] [address] Patrice Santana, 330 [facility] 100 [place] [address] Social History Tobacco Use Types Packs/Day Years Used Date Smoking Tobacco: Never Passive Smoke Exposure: Past Smokeless Tobacco: Never Comments: smokes, for 45 years Alcohol Use Standard Drinks/Week Comments No 0 (1 standard drink = 0.6 oz pur e alcohol) [facility] Utilities Answer Date Recorded In the past 12 months has [employer], gas, oil, or water company threatened to [...] Feels Unsafe at Home or Work/School no 05/04/2024 Feels Threatened by Someone no 04/16 Does Anyone Try to Keep You From Having Contact with Others or Doing Things Outside Your Home? no 05/04/2024 Physical Signs of Abuse Present no 05/04/2024 Housing Stability Answer Date Recorded Current Living Arrangements home 05/16 Potentially Unsafe Housing Conditions none 05/28/2024 Employment Answer Date Recorded Do you want help finding or keeping work or a job? I do not need or want help 05/28/2024 Disabilities Answer Date Recorded Concentrating, Remembering, or Making Decisions Difficulty Not on file 07/24/2023 Doing Errands Independently Difficulty Not on fi le 07/24/2023 Education Answer Date Recorded Help with school or training? Not on file Preferred Language Albanian 05/28/2024 PHQ-2 Answer Date Recorded Retired PHQ-9: Brief [...] Office Visit [facility] 17[address] [facility] [address] [address] [place] [address] Palak Graham PA-C [address] [place] [address] 05/23/2025 1:30 PM EDT Hospital Encounter [facility] 1700 [facility] [address] [place] [address] 06/03/2025 10:40 AM EDT Appointment [facility] DEXA YOEL [address] [place] [address] 06/05/2025 10:45 AM EDT Office Visit [facility] RHEUMATOLOGY [address] [facility] [address] [place] [address] John Sheppard APRN 330 [facility] 100 [place] [address] 07/01/2025 11:00 AM EDT Office Visit [facility] UROLOGY 1760 [facility] [address] [place] [address] Brennan Lee MD 1760 [facility] [address] [place] [address] 07/31/2025 10:00 AM EDT Office Visit [facility] PULMONARY & CRITICAL CARE MEDICINE 3000 [facility] [address] [place] [phone] Maxine Gibson, GROWTH MEDIA MIXER MUSHROOM [address] [place] [address] documented as of this encounter Goals Goal [...] documented as of this encounter Care Teams Collet Making Machine Operator Relationship Specialty Start Date End Date Reza Panchal MD [facility] [address] [address] PCP - General Family Medicine 09/30/24 documented as of this encounter
--- OUTSIDE RECORDS SUMMARY | 2025-05-02 13:52 | XMS_ITS | Encounter Summary ---
[facility] Address [address] [place] [address] Care Team Providers Care Airplane Engineer Name Role Phone Reza Panchal MD Primary Care Provider +1- [phone] Reason for Visit * Reason Comments Med Refill Encounter Details Date Type Department Care Team (Late st Contact Info) Description 02/12/2021 Refill [facility] [address] [address] Huyen Hall MD 2039 [facility] 100 [place], [place] [phone] Gastroesophageal reflux disease, unspecified whether esophagitis present Social History Tobacco Use Types Packs/Day Years [...] PHQ-2 Answer Date Recorded Retired Total Score 1 11/19/2020 Hunger Vital Sign Answer Date Recorded Within [...] encounter Miscellaneous Notes * Telephone Encounter - Peace Lemos MA - 02/12/2021 11:20 AM EDT LV: 01/25/21, [place]: 04/13/21. documented in this encounter Plan of Treatment Upcoming Encounters Date Type Department Care Team (Late st Contact Info) Description 05/06/2025 10:30 AM EDT Office Visit [facility] GASTROENTEROLOG[facility] 1720 [facility] 302 [place] [address] Palak Graham PA-C [address] [place] [address] 05/23/2025 1:30 PM EDT Hospital Encounter [facility] 1700 [facility] [address] [place] [address] 06/03/2025 10:40 AM EDT Appointment [facility] MINERVA DIALLO [address] [place] [address] 06/05/2025 10:45 AM EDT Office Visit [facility] RHEUMATOLOGY 330 [facility] 100 [place] [phone] John Sheppard, RETAIL ASSOCIATE MANAGER BILINGUAL 330 [facility] [address] [address] [place] [address] 07/01/2025 11:00 AM EDT Office Visit [facility] UROLOGY 1760 [facility] [address] [place] [address] Brennan Lee MD 1760 [facility] [address] [place] [address] 07/31/2025 10:00 AM EDT Office Visit [facility] PULMONARY & CRITICAL CARE MEDICINE 3000 [facility] [address] [place] [address] Maxine Gibson, RETAIL ASSOCIATE MANAGER BILINGUAL [address] [place] [address] documented as of this encounter Visit Diagnoses Diagnosis Gastroesophageal reflux disease, unspecified whether esophagitis present documented in this encounter Additional Health Concerns [...] documented as of this encounter Care Teams Airplane Engineer Relationship Specialty Start Date End Date Reza Panchal MD [address] [place] [address] PCP - General Family Medicine 09/30/24 documented as of this encounter
--- OUTSIDE RECORDS SUMMARY | 2025-05-02 13:52 | XMS_ITS | Clinical Summary ---
Author Organization Healthcare Address [address] [place] [address] Care Team Providers Care Behavioral Psychologist Name Role Phone Reza Panchal MD Primary Care Provider +1- [phone] Allergies Active Allergy Reactions Criticality Noted Date [...] file Insurance [employer] [place] Care Teams Behavioral Psychologist Relationship Specialty Start Date End Date Reza Panchal MD [address] [place] [address] PCP - General 08/17/24
--- OUTSIDE RECORDS SUMMARY | 2025-05-02 13:52 | XMS_ITS | Encounter Summary ---
Author [facility] Address [address] [place] [address] Care Team Providers Care Transplant Surgeon Name Role Phone Reza Panchal MD Primary Care Provider +1- [phone] Reason for Visit * Reason Comments Med Refill Encounter Details Date Type Department Care Team (Late st Contact Info) Description 07/03/2023 Refill [facility] PRIMARY CARE [address] [address] Huyen Hall MD 2039 [facility] 100 [place], [place] [phone] Reactive depression; Type 2 diabetes mellitus with hyperglycemia, without [...] Retired PHQ-9: Brief Depression Severity Measure Score 16 07/05/2023 Hunger Vital Sign Answer Date Recorded Within [...] Description 05/06/2025 10:30 AM EDT Office Visit [facility]ENTEROLOGY 1720 [facility] [address] [address] [place] [address] Palak Graham, PAArnaldoC [address] [place] [address] 05/23/2025 1:30 PM EDT Hospital Encounter [facility] 1700 [facility] [address] [address] [place] [address] 06/03/2025 10:40 AM EDT Appointment [facility] MIN[facility] [address] [place] [address] 06/05/2025 10:45 AM EDT Office Visit [facility] RHEUMATOLOGY 330 [facility] 100 [place] [phone] John Sheppard APRN 330 [facility] 100 [place], [place] [address] 07/01/2025 11:00 AM EDT Office Visit [facility]OLOGY 1760 [facility] 502 [place], [place] [phone] Brennan Lee MD 1760 [facility] 502 [place] [address] 07/31/2025 10:00 AM EDT Office Visit [facility] PULMONARY & CRITICAL CARE MEDICINE 3000 [facility] 240 [place] [address] Maxine Gibson, CULTURIST [address] [place], [place] [phone] documented as of this encounter Visit Diagnoses Diagnosis Reactive depression Type 2 diabetes mellitus with hyperglycemia, without [...] Assessment Noted Time PHQ-2 Depression Total Score: 4 05/17/20 23 11:38 AM EDT documented as of this encounter Care Teams Transplant Surgeon Relationship Specialty Start Date End Date Reza Panchal MD [address] [place] [address] PCP - General Family Medicine 09/30/24 documented as of this encounter
--- OUTSIDE RECORDS SUMMARY | 2025-05-02 13:52 | XMS_ITS | Encounter Summary ---
Author [facility] Address [address] [place] [address] Care Team Providers Care Animal Care Specialist Name Role Phone Reza Panchal MD Primary Care Provider +1- [phone] Reason for Visit * Reason Comments Med Refill Encounter Details Date Type Department Care Team (Late st Contact Info) Description 03/22/[address] [facility] PRIMARY CARE [address] [address] Huyen Hall MD 2039 [facility] 100 [place], [place] [phone] Acquired hypothyroidism Social History Tobacco Use Types Packs/Day Years Used Date Smoking Tobacco: Never Smokeless Tobacco: Never Comments: smokes, for 45 years Alcohol Use Standard Drinks/Week Comments No 0 (1 standard drink = 0.6 oz pur e alcohol) [facility] Utilities Answer Date Recorded In the past 12 months has [employer], gas, oil, or water company threatened to [...] Feels Unsafe at Home or Work/School no 01/10/2024 Feels Threatened by Someone no 12/15 Does Anyone Try to Keep You From Having Contact with Others or Doing Things Outside Your Home? no 01/10/2024 Physical Signs of Abuse Present no 01/10/2024 Housing Stability Answer Date Recorded Current Living Arrangements home 12/15 Potentially Unsafe Housing Conditions none 01/11/2024 Employment Answer Date Recorded Do you want help finding or keeping work or a vickey b? Not on file 07/24/2023 Disabilities Answer Date Recorded Concentrating, Remembering, or Making Decisions Difficulty Not on file 07/24/2023 Doing Errands Independently Difficulty Not on fi le 07/24/2023 Education Answer Date Recorded Help with school or training? Not on file Preferred Language Honduran 01/11/2024 PHQ-2 Answer Date Recorded Retired PHQ-9: Brief Depression Severity Measure Score 8 03/08/2024 Comments No Sex and Gender Information Value Date Recorded Sex Assigned at Female 01/09/2025 11:01 AM EDT Legal Sex Female 12:37 PM EDT Gender Identity Not on file Sexual Orientation Not on file documented as of this encounter Plan of Treatment Upcoming Encounters Date Type Department Care Team (Late st Contact Info) Description 05/06/2025 10:30 AM EDT Office Visit [facility] 1720 [facility] [address] [place] [address] Palak Graham PA-C [address] [place] [address] 05/23/2025 1:30 PM EDT Hospital Encounter [facility] OUTPATIENT [facility]ER [facility]ENTER 1700 [facility] [address] [place] [address] 06/03/2025 10:40 AM EDT Appointment [facility] D[facility]A [address] [place] [address] 06/05/2025 10:45 AM EDT Office Visit [facility] RHEUMATOLOGY 330 [facility] 100 [place] [address] John Sheppard APRN 330 [facility] 100 [place] [address] 07/01/2025 11:00 AM EDT Office Visit [facility] UROLOGY 1760 [facility] [address] [place] [address] Brennan Lee MD 1760 [facility] [address] [place] [address] 07/31/2025 10:00 AM EDT Office Visit [facility] PULMONARY & CRITICAL CARE MEDICINE 3000 [facility] [address] [place] [address] Maxine Gibson, INVAS TECH [address] [place] [address] documented as of this encounter Goals Goal [...] as of this encounter Visit Diagnoses Diagnosis Acquired hypothyroidism Unspecified hypothyroidism documented in this encounter Additional Health Concerns Infection Onset Date Last Indicated Resolved Time Hepatitis A 04/12/2024 04/12/2024 COVID Screen (preop/placement) 05/02/2024 05/02/2024 05/02/2024 9:15 PM EDT Assessment Noted Time PHQ-2 Depression Total Score: 2 03/08/20 11:01 AM EDT documented as of this encounter Care Teams Animal Care Specialist Relationship Specialty Start Date End Date Reza Panchal MD [facility] [place] [address] PCP - General Family Medicine 09/30/24 documented as of this encounter
[2025-05-02 13:53] VITALS: BP 162/81; PULSE 74; RESP 19; TEMP 36.4; O2SAT 95; BMI 38.5
--- NOTE | 2025-05-02 13:55 | XR_ITS ---
FINAL REPORT CLINICAL HISTORY: Pain, swelling, right MTP COMPARISON: None FINDINGS: RIGHT FOOT 2 views of the right foot were obtained. There is no acute fracture or dislocation. There are moderate degenerative changes of the midfoot. There is moderate hallux valgus deformity. Osteopenia is noted. There is an old avulsion fracture along the dorsal navicular bone. There is no soft tissue abnormality. IMPRESSION: Chronic changes without acute process. Reviewed, Interpreted and Dictated by Pricila Gupta MD Transcribed by Natalie Santana Authenticated and [facility]
--- NOTE | 2025-05-02 13:55 | XR_ITS ---
FINAL REPORT CLINICAL HISTORY: Pain, top of foot COMPARISON: None FINDINGS: LEFT FOOT 2 views of the left foot were obtained. There is no acute fracture or dislocation. There are moderate degenerative changes of the midfoot. There is moderate hallux valgus deformity. Osteopenia is noted. There is an old healed third metatarsal fracture. There is minimal calcaneal spurring. There is no soft tissue abnormality. IMPRESSION: Chronic changes without acute process. Reviewed, Interpreted and Dictated by Pricila Gupta MD Transcribed by Natalie Santana Authenticated and [facility]
--- NOTE | 2025-05-02 14:00 | HMH.EDGENADL ---
Discharge Plan Disposition Patient Disposition: Home, Self-Care Condition: Good Prescriptions Prescriptions: New ibuprofen 800 mg tablet 800 mg PO TID Qty: 9 0RF No Action pantoprazole 40 mg tablet,delayed release (DR/EC) 40 mg PO BID Patient Comments: TAKE 1 TABLET BY MOUTH TWICE DAILY nitroglycerin 0.4 mg tablet, sublingual 0.4 mg sublingual Q5-15M PRN (Reason: Chest Pain) Rx Instructions: do not exceed 3 doses per episode cholecalciferol (vitamin D3) 125 mcg (5,000 unit) capsule 125 mcg PO DAILY mecobalamin (vitamin B12) 500 mcg tablet,chewable 500 mcg PO DAILY gabapentin 300 mg capsule 300 mg PO TID Qty: 90 3RF fluticasone propion-salmeterol 100-50 mcg/dose blister with device 1 ea inhalation BID Patient Comments: INHALE 1 PUFF BY MOUTH TWICE DAILY mirtazapine 15 mg tablet 15 mg PO HS Qty: 30 2RF meloxicam 15 mg tablet 15 mg PO DAILY Qty: 30 2RF levothyroxine 75 mcg tablet 75 mcg PO DAILY Qty: 90 0RF potassium chloride 10 mEq tablet,ER particles/crystals 10 meq PO DAILY Qty: 90 0RF memantine 10 mg tablet 10 mg PO DAILY Qty: 90 0RF chlorthalidone 25 mg tablet 25 mg PO DAILY PRN (Reason: edema) Qty: 30 2RF atorvastatin 20 mg tablet 20 mg PO HS Qty: 30 1RF alendronate 70 mg tablet 70 mg PO WEEKLY Patient Comments: TAKE 1 TABLET BY MOUTH EVERY 7 DAYS fluticasone propionate 50 mcg/actuation spray,suspension 2 spray INTRANASAL DAILY magnesium oxide 500 mg magnesium tablet 500 mg PO DAILY Rx Instructions: TAKE 1 TABLET BY MOUTH ONCE DAILY aspirin 81 mg tablet,delayed release (DR/EC) 81 mg PO DAILY Patient Comments: TAKE 1 TABLET BY MOUTH DAILY metoprolol succinate 50 mg tablet extended release 24 hr 50 mg PO BID sucralfate 1 gram tablet 1 g PO ACHS cefdinir 300 mg capsule 300 mg PO BID Qty: 4 0RF sucralfate 1 gram Tablet 1 g PO ACHS PRN (Reason: Indigestion) 30 Days Qty: 60 0RF prasugrel HCl [Effient] 10 mg Tablet 10 mg PO DAILY 30 Days Qty: 30 6RF Referrals Follow up/Referrals: Reza Panchal MD [Primary Care Provider, Family Practice] - See instructions Activity Restrictions/Add. Instructions Additional Instructions/Restrictions: You likely have a gout attack causing the pain in your right toe and potentially your left foot as well. There were no broken bones noted on your x-rays today. I encourage you to take ibuprofen 800 mg 3 times daily as prescribed over the next 3 days. I also encourage you to follow-up with your primary care physician in 3 to 4 days if symptoms do not improve. If you develop any new or worsening symptoms, such as high fever, uncontrollable pain or swelling, or if you become concerned for your health for any reason, return to the emergency department for evaluation. Clinical Impressions Clinical Impression: Gout attack, Foot pain, left Print Language Print Language: Polish Discharge ED Provider: Anderson Jaimes Adult HPI General Chief complaint: PAIN Stated complaint: Pain/ swelling, heat R foot Time Seen by Provider: 05/02/25 13:50 Mode of Arrival: Ambulatory Source of Information: Patient Description of Symptoms (Recalled from ER Triage Doc. by RN): Patient presents to ED with c/o bilateral foot pain. Denies injury. History of Present Illness HPI narrative: Madison Castellanos is a 69-year-old female with a history of diabetes, gout, recent UTI/sepsis and pneumonia requiring admission and was discharged on Monday who presents to the emergency department for complaints of right foot pain, redness and swelling. Patient states that starting yesterday, she developed pain to her right big toe with redness and swelling in the area. She is also complaining of pain to the top of her left foot. She denies any fevers. She does state that she has a history of gout but does not know if this feels similar. She notes that she is currently on a blood thinner but has never had a history of a blood clot. She denies any swelling or pain to her calf. Related Data Home Medications ?Medication ?Instructions ?Recorded ?Confirmed alendronate 70 mg tablet 70 mg PO WEEKLY 09/16/24 04/25/25 fluticasone propionate 50 2 spray intranasal DAILY 09/16/24 04/25/25 mcg/actuation nasal spray,suspension pantoprazole 40 mg tablet,delayed 40 mg PO BID 10/03/24 04/25/25 release magnesium oxide 500 mg PO DAILY 12/16/24 04/25/25 aspirin 81 mg tablet,delayed 81 mg PO DAILY 12/17/24 04/25/25 release cholecalciferol (vitamin D3) 125 125 mcg PO DAILY 01/13/25 04/25/25 mcg (5,000 unit) capsule mecobalamin (vitamin B12) 500 mcg 500 mcg PO DAILY 01/13/25 04/25/25 chewable tablet nitroglycerin 0.4 mg sublingual 0.4 mg sublingual Q5-15M PRN Chest 01/13/25 04/25/25 tablet Pain fluticasone 100 mcg-salmeterol 50 1 ea inhalation BID 01/20/25 04/25/25 mcg/dose blistr powdr for inhalation metoprolol succinate 50 mg 50 mg PO BID 04/25/25 04/25/25 tablet,extended release 24 hr sucralfate 1 gram tablet 1 g PO ACHS 04/25/25 04/25/25 Previous Rx's ?Medication ?Instructions ?Recorded prasugrel HCl 10 mg tablet 10 mg PO DAILY 30 days #30 tabs 10/07/24 (Effient) gabapentin 300 mg capsule 300 mg PO TID #90 caps 02/10/25 meloxicam 15 mg tablet 15 mg PO DAILY #30 tabs 02/14/25 mirtazapine 15 mg tablet 15 mg PO HS #30 tabs 02/14/25 levothyroxine 75 mcg tablet 75 mcg PO DAILY #90 tabs 02/28/25 potassium chloride 10 mEq 10 meq PO DAILY #90 tabs 03/03/25 tablet,extended release(part/cryst) memantine 10 mg tablet 10 mg PO DAILY #90 tabs 03/07/25 chlorthalidone 25 mg tablet 25 mg PO DAILY PRN edema #30 tabs 03/26/25 cefdinir 300 mg capsule 300 mg PO BID #4 caps 04/28/25 sucralfate 1 gram tablet 1 g PO ACHS PRN Indigestion 30 04/28/25 days #60 tabs atorvastatin 20 mg tablet 20 mg PO HS #30 tabs 04/29/25 ibuprofen 800 mg tablet 800 mg PO TID #9 tabs 05/02/25 Allergies Allergy/AdvReac Type Severity Reaction Status Date / Time hydrocodone Allergy Mild Unknown Verified 03/08/25 11:55 allergy reaction acetaminophen (From Allergy Unknown Verified 03/08/25 11:55 Tylenol-Codeine #3) allergy reaction metformin Allergy Unknown Verified 03/08/25 11:55 allergy reaction codeine AdvReac Mild Unknown Verified 03/08/25 11:55 allergy reaction PFSH PFSH Disclaimer: The information contained in this section may have been updated after the patient was seen, as this information can be updated by other users. 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 Vaginal irritation Dysuria Stress incontinence Urge incontinence Overactive bladder Allergic rhinitis Coronary artery calcification seen on CAT scan Chest pain Fatigue History of DVT of lower extremity History of sleep apnea Bronchitis, mucopurulent recurrent Dyspnea on exertion Bronchiectasis Asthma Edema Hyperlipidemia associated with type 2 diabetes mellitus Urinary incontinence Onychomycosis Diabetic neuropathy Breast cancer screening by mammogram Dementia Diabetes mellitus Bronchitis COPD (chronic obstructive pulmonary disease) Colonoscopy planned Gallbladder anomaly Rheumatoid arthritis Osteoporosis Back pain Acid reflux disease Carpal tunnel syndrome Anxiety Hypothyroidism Sleep apnea High blood pressure Arthritis Varicose veins of ankle Depression Acute asthma Surgical History History of cataract surgery History of esophagogastroduodenoscopy (EGD) H/O right heart catheterization History of cholecystectomy H/O tubal ligation History of hernia repair Total knee replacement status Social History (Updated 04/24/25 @ 22:10 by Mirian Johnson RN) Smoking Status: Never smoker alcohol intake: never substance use type: denies use current occupational status: unemployed Travel in the last 8 weeks?: None Have you lived/traveled outside US in past 30 days?: No Contact w/someone who lives/traveled outside US past 30 days?: No Exposure to someone with infectious disease in past 14 days?: No Do you have a fever (greater than 100.4 F or 38 C)?: No Have you tested positive for COVID-19?: No Exposed to someone with COVID-19 in past 14 days?: No Do you have a sore throat?: No Do you have a cough?: No Do you have any weakness?: No Do you have any diarrhea?: No Are you experiencing any unusual bleeding?: No Do you have any muscle aches/pain?: No Do you have any abdominal pain?: No Are you experiencing loss of taste or smell?: No Other 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 Have you received the Flu Vaccine for this season: No Have you received the Pneumonia Vaccine: No ROS Obtained: Yes Systems reviewed as appropriate & no additional complaints except as documented Physical Exam General General appearance: alert and in no apparent distress Head Head exam: atraumatic Eye Eye exam: Present normal appearance ENT ENT exam: Present normal external ear exam Neck Neck exam: Present full ROM Chest Chest inspection: Present symmetric chest wall rise Respiratory Respiratory exam: Present normal lung sounds bilaterally; Absent respiratory distress Cardiovascular Cardiovascular exam: Present regular rate and normal rhythm Abdominal Exam Abdominal exam: Present soft; Absent tenderness or guarding Extremities Exam Extremities exam: Present normal inspection and other (Right lower extremity: Mild tenderness and erythema and swelling over the right MTP. No proximal swelling. 2+ DP and PT pulses. Left lower extremity with some mild tenderness over the mid forefoot but pulses and sensation grossly intact as well.) Back Exam Back exam: Present normal inspection Neurological Exam Neurological exam: Present alert and oriented X3 Psychiatric Psychiatric exam: Present normal affect Skin Skin exam: Present warm and dry Medical Decision Making Medical Records Screening: Per USPSTF and CDC recommendations, given the prevalence of disease in our region, it is our hospital?s policy to screen for HIV and viral Hepatitis for all patients aged 18 and over and those with ongoing risk factors. Andre Inquiry Pt receiving controlled substance: No Vital Signs: 05/02/25 13:53 05/02/25 14:08 05/02/25 14:45 Temperature 97.5 F L Temperature Source Oral Pulse Rate 75 61 Pulse Rate [Left] 74 Respiratory Rate 19 Blood Pressure 144/75 H 121/66 Blood Pressure [Left Arm] 162/81 H Blood Pressure Mean Blood Pressure Mean [Left Arm] 108 Blood Pressure Source Blood Pressure Source [Left Arm] Automatic Cuff Blood Pressure Position 02 Sat by Pulse Oximetry 95 95 95 Oxygen Delivery Method Room Air 05/02/25 15:00 05/02/25 16:02 Temperature 98.7 F Temperature Source Oral Pulse Rate 66 89 Pulse Rate [Left] Respiratory Rate 17 19 Blood Pressure 142/59 H 124/74 Blood Pressure [Left Arm] Blood Pressure Mean 86 Blood Pressure Mean [Left Arm] Blood Pressure Source Automatic Cuff Blood Pressure Source [Left Arm] Blood Pressure Position Sitting 02 Sat by Pulse Oximetry 97 Oxygen Delivery Method Room Air Room Air Lab Data Lab Results 05/02/25 14:57: WBC 7.9, RBC 4.25, Hgb 12.8, Hct 38.7, MCV 91.1, MCH 30.1, MCHC 33.1, RDW 13.2, Plt Count 286, MPV 10.0, Neut % (Auto) 48.0, Lymph % (Auto) 34.0, [place] % (Auto) 11.0 H, Eos % (Auto) 5.1, Baso % (Auto) 0.6, Neut # (Auto) 3.8, Lymph # (Auto) 2.7, [place] # (Auto) 0.9, Eos # (Auto) 0.4, Baso # (Auto) 0.1, ESR 27, Sodium 138, Potassium 4.3, Chloride 103, Carbon Dioxide 26, Anion Gap 13.3, BUN 13, Creatinine 0.60, Estimated Creat Clear 77, Estimated GFR 100, Est GFR ( Amer) 121, Glucose 157 H, Calcium 9.4, Magnesium 1.8, Total Bilirubin 0.5, AST 33, ALT 29, Alkaline Phosphatase 110, Total Protein 7.7, Albumin 4.1, Globulin 3.6 H, Albumin/Globulin Ratio 1.1 05/02/25 14:57 05/02/25 14:57 Orders (Tests/Meds): ED MEDICATIONS Discontinued Medications Generic Name Dose Route Start Last Admin Trade Name Freq PRN Reason Stop Dose Admin Ibuprofen 600 mg 05/02/25 13:56 05/02/25 14:17 Ibuprofen 600 Mg Tablet PO 05/02/25 13:57 600 mg ONCE ONE Administration ORDERS Category Date Time Status Foot XR left 2 views [XR foot LT 2V] Stat Exams 05/02/25 13:55 Completed Foot XR right 2 views [XR foot RT 2V] Stat Exams 05/02/25 13:55 Completed CBC w/Auto Diff [Complete Blood Count Auto Diff] Stat Lab 05/02/25 14:57 Completed CMP [Comprehensive Metabolic Panel] Stat Lab 05/02/25 14:57 Completed ESR [Erythrocyte Sedimentation Rate] Stat Lab 05/02/25 14:57 Completed Magnesium Stat Lab 05/02/25 14:57 Completed Medical Decision Narrative: Madison Castellanos is a 69-year-old female with a history of diabetes, gout, recent UTI/sepsis and pneumonia requiring admission and was discharged on Monday who presents to the emergency department for complaints of right foot pain, redness and swelling. Patient states that starting yesterday, she developed pain to her right big toe with redness and swelling in the area. She is also complaining of pain to the top of her left foot. She denies any fevers. She does state that she has a history of gout but does not know if this feels similar. She notes that she is currently on a blood thinner but has never had a history of a blood clot. She denies any swelling or pain to her calf. On arrival, patient is hemodynamically stable, no acute respiratory distress, afebrile, breathing comfortably on room air with appropriate oxygen saturation. Physical exam, as stated above, revealed an overall well-appearing female in no acute distress. She has some mild tenderness, erythema and swelling over the right MTP but sensation intact distally. 2+ DP and PT pulses. No swelling proximally is noted. She has some mild tenderness over the left forefoot as well but strong pulses. Less than 2-second capillary refill throughout. Differential diagnosis includes, but is not limited to: Gout, pseudogout, low concern for DVT given location of patient's pain. Low concern for septic arthritis given location of patient's pain that is more pathognomonic for crystal arthropathy, especially given patient's history of gout. Will administer NSAIDs and obtain basic lab work given patient's recent admission. Will get CBC, CMP and ESR. Will obtain x-ray imaging of both feet to rule out any traumatic or degenerative pathology, such as fractures or osteomyelitis. CMP unremarkable nonactionable. ESR within normal limits. CBC with no leukocytosis and no anemia. Platelets normal. X-ray images interpreted by me personally. No acute fracture or dislocation. No bony degradation. See final radiology report for details. On reassessment, patient remained in stable condition. Her presentation today is most consistent with gout. Will recommend high dose ibuprofen over the next several days and follow-up with her primary care physician. Return precautions were given. All questions were answered. She demonstrated understanding and was agreement this plan. She was then discharged from the emergency department in stable condition peer Critical Care Critical Care Time Critical Care Time: No
[2025-05-02 14:08] VITALS: BP 144/75; PULSE 75; O2SAT 95
[2025-05-02] MEDS: IBUPROFEN 600 MG TABLET PO (14:17)
[2025-05-02 14:45] VITALS: BP 121/66; PULSE 61; O2SAT 95
[2025-05-02 15:00] VITALS: BP 142/59; PULSE 66; RESP 17; O2SAT 97
[2025-05-02 15:14] LABS: Magnesium 1.8 mg/dl (1.6-2.3)
[2025-05-02 15:15] LABS: Alanine Aminotransferase 29 U/L (12-78); Albumin Level 4.1 g/dl (3.5-5.0); Albumin/Globulin Ratio 1.1 (1.1-1.8); Alkaline Phosphatase 110 U/L (38-126); Anion Gap 13.3 mEq/L (5-15); Aspartate Amino Transferase 33 U/L (14-36); Bilirubin,Total 0.5 mg/dl (0.2-1.3); Blood Urea Nitrogen 13 mg/dl (7-17); Calcium 9.4 mg/dl (8.4-10.2); Carbon Dioxide 26 mmol/L (22.0-30.0); Chloride 103 mmol/L (98-107); Creatinine Clearance Estimated 77 mL/min (50-200); Creatinine,Serum 0.60 mg/dl (0.52-1.04); Estimated Glomerular Filt Rate 100 ml/min (>60); GFR (African American) 121 ML/MIN (>60); Globulin 3.6 g/dL (1.3-3.2); Glucose 157 mg/dl (74-100); Potassium 4.3 mmoL/L (3.5-5.1); Sodium 138 mmol/L (136-145); Total Protein,Serum 7.7 g/dl (6.3-8.2)
[2025-05-02 15:23] LABS: Hematocrit 38.7 % (37.0-47.0); Hemoglobin 12.8 g/dL (12.2-16.2); Immature Granulocytes % 1.3 %; Mean Corpuscular HGB Conc 33.1 g/dL (31.8-35.4); Mean Corpuscular Hemoglobin 30.1 pg (27.0-31.2); Mean Corpuscular Volume 91.1 fl (81-99); Nucleated Red Blood Cells % 0 %; Platelet Count 286 K/mm3 (142-424); Red Blood Count 4.25 M/mm3 (4.20-5.40); Red Cell Distribution Width-SD 44.2 fL; White Blood Count 7.9 K/mm3 (4.8-10.8)
[2025-05-02 16:02] VITALS: BP 124/74; PULSE 89; RESP 19; TEMP 37.1; O2SAT 98
== END 2025-05-02 16:07 | disposition home or self-care (01) ==
PROVIDERS: Emergency Provider Student in an Organized Health Care Education/Training Program; PCP Family Medicine
DX: M79.672 Pain in left foot (principal); J45.909 Unspecified asthma, uncomplicated; E11.9 Type 2 diabetes mellitus without complications; K21.9 Gastro-esophageal reflux disease without esophagitis; I10 Essential (primary) hypertension; J44.9 Chronic obstructive pulmonary disease, unspecified
CPT/HCPCS: 73620; 80053; 83735; 85025; 85651; 99283

== ENCOUNTER 2025-05-05 10:00 | Outpatient (CLI) | payer MEDICARE, MEDICAID, SELFPAY ==
--- OUTSIDE RECORDS SUMMARY | 2017-02-08 12:08 | XMS_ITS | Encounter Summary ---
Author Organization [facility] Address [address] [place] [address] Care Team Providers Care Clark Driver Name Role Phone Lizbeth Ibarra MD Primary Care Provider Unav ailable Encounter Details Date Type Department Care Team (Late st Contact Info) Description 02/08/2017 12:08 PM EDT Hospital Encounter [facility] PULMONARY & CRITICAL CARE MEDICINE [address] [place] [address] Social History Tobacco Use Types Packs/Day Years Used Date Smoking Tobacco: Never Passive Smoke Exposure: Past Smokeless Tobacco: Never Comments: smokes, for 45 years Alcohol Use Standard Drinks/Week Comments No 0 (1 standard drink = 0.6 oz pur e alcohol) [facility] Utilities Answer Date Recorded In the past 12 months has [employer], gas, oil, or water [employer] threatened to shut off services in your [...] Never 01/11/2024 Overall Financial Resource Strain (CARDIA) Yesicae r Date Recorded How hard is it [...] Feels Unsafe at Home or Work/School no 02/20/2025 Feels Threatened by Someone no 05/2025 Does Anyone Try to Keep You From Having Contact with Others or Doing Things Outside Your Home? no 02/20/2025 Physical Signs of Abuse Present no 02/20/2025 Housing Stability Answer Date Recorded Current Living Arrangements apartment 05/2025 Potentially Unsafe Housing Conditions none 02/20/2025 Employment Answer Date Recorded Do you want help finding or keeping work or a job? I do not need or want help 05/28/2024 Disabilities Answer Date Recorded Difficulty Concentrating, Remembering or Making Decisions yes 02/20/2025 Difficulty Managing Errands Independently yes 02/20/2025 Education Answer Date Recorded Help with school or training? Not on file Preferred Language Congolese 01/28/2025 PHQ-2 Answer Date Recorded Retired PHQ-9: Brief Depression Severity Measure Score 7 05/20/2024 Comments No Sex and Gender Information Value Date Recorded Sex Assigned at Female 01/09/2025 11:01 AM EDT Legal Sex Female 12:37 PM EDT Gender Identity Not on file Sexual Orientation Not on file documented as of this encounter Functional Status * Question Answer Date of Assessment Author 1. Wish to be (Past 1 Month) No 02/20/2025 7:09 AM EDT Dary Benites, RN 2. Non-Specific Active Suici mack Thoughts (Past 1 Month) No 02/20/2025 7:09 AM EDT Deana Benites RN * Calculated C-SSRS Risk Score (Lifetime/Recent) Answer Date of Assessment Author No Risk Indicated 02/20/2025 7:09 AM EDT Dary Chapin RN * [place] Suicide Severity Rating Scale (Screener/Recent Self-Report) Question Answer Date of Assessment Author 6. Suicidal Behavior (Lifetime) No 7:09 AM EDT Dary Benites RN documented as of this encounter Plan of Treatment Upcoming Encounters Date Type Department Care Team (Late st Contact Info) Description 05/06/2025 10:30 AM EDT Office Visit [facility] GASTROENTEROLOGY [address] [facility] [address] [place] [address] Palak Graham PA-C [address] [facility] [address] [place] [address] 05/23/2025 1:30 PM EDT Hospital Encounter [facility] OUTPATIENT ONCOLOGY CANCER CENTER [address] [facility] [address] [place] [address] 06/03/2025 10:40 AM EDT Appointment [facility] [place] [address] [place] [address] 06/05/2025 10:45 AM EDT Office Visit [facility] RHEUMATOLOGY [address] [place] [address] John Sheppard APRN 330 [facility] 100 [place] [address] 07/01/2025 11:00 AM EDT Office Visit [facility] UROLOGY [address] [facility] [address] [place] [address] Brennan Lee MD [address]60 [facility] [address] [place] [address] 07/31/2025 10:00 AM EDT Office Visit [facility] PULMONARY & CRITICAL CARE MEDICINE 3000 [facility] [address] [place] [address] Maxine Gibson, LOGISTICS OFFICER [address] [place] [address] documented as of this encounter Goals Goal Patient Goal Type Associated Problems Recent Progress Patient-Stated? Author Track and Manage My Blood Pressure Patient Goals No Nathalia Phelan RN Note: [...] Keep Skin Clean and Dry Patient Goals No Nathalia Phelan RN Note: Follow Up Date - clean [...] documented as of this encounter Care Teams Clark Driver Relationship Specialty Start Date End Date Lizbeth Ibarra MD PCP - General 06/18/15 07/10/17 documented as of this encounter
--- OUTSIDE RECORDS SUMMARY | 2022-02-25 11:00 | XMS_ITS | Encounter Summary ---
Author Organization [facility] Address [address] [place] [address] Care Team Providers Care Film Color Tester Name Role Phone Johanna Jeffrey MD Primary Care Provider +1- [phone] Reason for Visit * Monitoring (Routine) - Closed Specialty Diagnoses / Procedures Referred By Contkirt holman Referred To Contact Diagnoses Palpitations Dizziness Procedures Mobile Cardiac Outpatient Telemetry Cardiac Event Monitor Tiffany Maier MD [address] [place] [address] Phone: tel: fax: [facility] [address] [facility] [address] [facility] 100 [place] [address] Phone: tel: Referral ID Status Reason Start Date Expiration Date Visits Re quested Visits Authorized [id number] Closed 02/25/2022 02/25/2023 1 1 Encounter Details Date Type Department Care Team ([facility] Contact Info) Description 02/25/2022 11:00 AM EDT Hospital Encounter [facility] CARDIOLOGY [address] [place] [address] Palpitations; Dizziness Social History Tobacco Use Types Packs/Day Years Used Date Smoking Tobacco: Never Passive Smoke Exposure: Past Smokeless Tobacco: Never Comments: smokes, for 45 years Alcohol Use Standard Drinks/Week Comments No 0 (1 standard drink = 0.6 oz pur e alcohol) [facility] Utilities Answer Date Recorded In the [...] or training? Not on file Preferred Language Maltese 01/28/2025 PHQ-2 Answer Date Recorded Retired PHQ-9: [...] 7:09 AM EDT Dary Chapin RN * [place] Suicide Severity Rating Scale (Screener/Recent Self-Report) Question Answer Date of Assessment Author 6. Suicidal Behavior (Lifetime) No 7:09 AM EDT Dary Benites RN documented as of this encounter Plan of Treatment Upcoming Encounters Date Type Department Care Team (Late st Contact Info) Description 05/06/2025 10:30 AM EDT Office Visit [facility] GASTROENTEROLOGY [address] [place] [address] Palak Graham PA-C [address] [place] [address] 05/23/2025 1:30 PM EDT Hospital Encounter [facility] OUTPATIENT ONCOLOGY CANCER CENTER [address] [place] [address] 06/03/2025 10:40 AM EDT Appointment [facility] [address] [place] [address] 06/05/2025 10:45 AM EDT Office Visit [facility] RHEUMATOLOGY 330 [facility] 100 [place] [address] John Sheppard APRN 330 [facility] 100 [place] [address] 07/01/2025 11:00 AM EDT Office Visit [facility] UROLOGY 1760 [facility] 502 [place] [address] Brennan Lee MD 1760 [facility] 502 [place], [place] [address] 07/31/2025 10:00 AM EDT Office Visit [facility] PULMONARY & CRITICAL CARE MEDICINE 3000 [facility] 240 [place] [address] Maxine Gibson, BEEF PUSHER [address] [place] [address] documented as of this encounter Goals Goal [...] 21 hours and 51 minutes. Total beats: [id number]. Average HR: 83. Min HR: 48. Max [...] documented as of this encounter Care Teams Film Color Tester Relationship Specialty Start Date End Date Johanna Jeffrey MD Mike [address] [address] PCP - General Internal Medicine 10/20/21 08/20/22 documented as of this encounter
--- OUTSIDE RECORDS SUMMARY | 2024-04-23 19:45 | XMS_ITS | Encounter Summary ---
[facility] Organization [facility] [address] [place] [address] Care Team Providers Care Fruit Or Nut Farmworker Name Role Phone Rafael Pal MD, [place] Primary Care Provider [phone] Reason for Referral * Hospital - Outpatient [...] or More Parameters Ijeoma Payne APRN [address]20 [place] [address] Phone: tel: fax: [facility] [address] [address] Phone: tel: fax: Referral ID Status Reason Start Date Expiration Date Visits Re quested Visits Authorized [id number] Closed 12/19/2023 12/18/2024 1 1 Reason for Visit * Hospital - Outpatient (Routine) - Closed Specialty Diagnoses / Procedures Referred By Contkirt holman Referred To Contact Sleep Medicine Diagnoses Dementia, unspecified dementia severity, unspecified dementia type, unspecified whether behavioral, psychotic, or mood disturbance or anxiety Essential hypertension Palpitations Suspected sleep apnea Excessive daytime sleepiness Snoring Nightmares Morning headache Psychophysiological insomnia Procedures Polysomnography 4 or More Parameters Ijeoma Payne, MONITOR AND STORAGE BIN TENDER [address] [address] Phone: tel: fax: [facility] [address] [address] Phone: tel: fax: Referral ID Status Reason Start Date Expiration Date Visits Re quested Visits Authorized [id number] Closed 12/19/2023 12/18/2024 1 1 Encounter Details Date Type Department Care Team (Late st Contact Info) Description 04/23/2024 7:45 PM EDT Hospital Encounter [facility] [address] [place] [phone] Ijeoma Payne, MONITOR AND STORAGE BIN TENDER [address] [place] [address] Dementia, unspecified dementia severity, unspecified dementia type, [...] drink = 0.6 oz pur e alcohol) [facility] Utilities Answer Date Recorded In the past 12 months has [employer], gas, oil, or water [employer] threatened to shut off services in your [...] or training? Not on file Preferred Language Malagasy 01/28/2025 PHQ-2 Answer Date Recorded Retired PHQ-9: [...] 7:09 AM EDT Dary Chapin RN * [place] Suicide Severity Rating Scale (Screener/Recent Self-Report) Question Answer Date of Assessment Author 6. Suicidal Behavior (Lifetime) No 7:09 AM EDT Dary Benites RN documented as of this encounter Plan of Treatment Upcoming Encounters Date Type Department Care Team (Late st Contact Info) Description 05/06/2025 10:30 AM EDT Office Visit [facility] GASTROENTEROLOGY [address] [place] [address] Palak Graham PADelano [address] [place] [address] 05/23/2025 1:30 PM EDT Hospital Encounter [facility] OUTPATIENT ONCOLOGY [facility]CER CENTER 1700 [facility] [address] [place] [address] 06/03/2025 10:40 AM EDT Appointment [facility] MINERVA DIALLO [address] [place] [address] 06/05/2025 10:45 AM EDT Office Visit [facility] RHEUMATOLOGY [address] [place] [address] John Sheppard, PARVIZ 330 [facility] 100 [place] [address] 07/01/2025 11:00 AM EDT Office Visit [facility] UROLOGY [address]60 [facility] [address] [place] [address] Brennan Lee MD [address]60 [facility] [address] [place] [address] 07/31/2025 10:00 AM EDT Office Visit [facility] PULMONARY & CRITICAL CARE MEDICINE 3000 [facility] 240 [place] [address] Maxine Gibson, MONITOR AND STORAGE BIN TENDER [address] [place] [address] documented as of this encounter Goals Goal Patient Goal Type Associated Problems Recent Progress Patient-Stated? Author Track and Manage My Blood Pressure Patient Goals No Nathalia Phelan, SRAVANI Note: [...] agree with the interpretation. Braden To MD, [facility] Pulmonary Critical care and Sleep medicine Narrative [...] respirations: None. 8. Bruxism: None. Ijeoma Payne APRN SLEEP CENTER ORDERABLES Fin al Result SLEEP [...] documented as of this encounter Care Teams Fruit Or Nut Farmworker Relationship Specialty Start Date End Date Huyen Hall MD [address] [facility] 100 [place] [address] PCP - General Family Medicine 08/21/22 07/25/24 documented as of this encounter
--- OUTSIDE RECORDS SUMMARY | 2025-03-12 09:20 | XMS_ITS | Encounter Summary ---
Author Organization [facility] Address [address] [place] [address] Care Team Providers Care Cool Roofing Installer Name Role Phone Reza Panchal MD Primary Care Provider [phone]- [phone] Reason for Visit * Reason Comments OAB (overactive bladder) Encounter Details Date Type Department Care Team (Late st Contact Info) Description 03/12/2025 9:20 AM EDT Office Visit [facility] [address] [phone] Brennan Lee MD [address] [address] Erythema (Primary Dx) Social History Tobacco Use Types Packs/Day Years Used Date Smoking Tobacco: Never Passive Smoke Exposure: Past Smokeless Tobacco: Never Tobacco Cessation:Counseling Given: No Comments: smokes, for 45 years Alcohol Use Standard Drinks/Week Comments No 0 (1 standard drink = 0.6 oz pur e alcohol) [facility] Utilities Answer Date Recorded In the [...] or training? Not on file Preferred Language Panamanian 01/28/2025 PHQ-2 Answer Date Recorded Retired PHQ-9: [...] MD, 05/21/2011 REPLACEMENT TOTAL KNEE Left 06/15/2022 [facility] SPINAL CORD STIMULATOR IMPLANT 02/2021 SPINAL CORD [...] mouth Daily., Disp: 90 tablet, Rfl: 3 vmzbpaix-nmyhbcllh-qnhorlflpqnywirezj (POLYDEX) 3.5-34052-1.1 ointment ophthalmic ointment, APPLY SMALL AMOUNT INSIDE [...] and return for visit. We have discussed [employer] device programming. Diagnoses and all orders for [...] patient documentation. Brennan Lee MD [facility] documented in this encounter Plan of Treatment Upcoming Encounters Date Type Department Care Team (Late st Contact Info) Description 05/06/2025 10:30 AM EDT Office Visit [facility]OLOG[facility] [address] [facility] [address] [place] [address] Palak Graham, PA-C [address] [place] [address] 05/23/2025 1:30 PM EDT Hospital Encounter [facility] [address] [facility] [address] [place] [address] 06/03/2025 10:40 AM EDT Appointment [facility] [place] [address] [place] [address] 06/05/2025 10:45 AM EDT Office Visit [facility] RHEUMATOLOGY [address] [facility] [address] [place] [address] John Sheppard APRN 330 [facility] 100 [place] [address] 07/01/2025 11:00 AM EDT Office Visit [facility] [address] [facility] [address] [place] [address] Brennan Lee MD [address] [facility] [address] [place] [address] 07/31/2025 10:00 AM EDT Office Visit [facility] PULMONARY & CRITICAL CARE MEDICINE [address] [facility] [address] [place] [address] Maxine Gibson, ASSOCIATE BROKER [address] [place] [address] documented as of this encounter Goals Goal [...] documented as of this encounter Care Teams Cool Roofing Installer Relationship Specialty Start Date End Date Reza Panchal MD [address] [place] [address] PCP - General Family Medicine 12/16/24 documented as of this encounter
--- OUTSIDE RECORDS SUMMARY | 2025-03-26 10:10 | XMS_ITS | Encounter Summary ---
Author Organization [facility] Address [address] [place] [address] Care Team Providers Care Dentures Lab Technician Name Role Phone Reza Panchal MD Primary Care Provider +1- [phone] Reason for Visit * Reason Comments Erythema Encounter Details Date Type Department Care Team (Late st Contact Info) Description 03/26/2025 10:10 AM EDT Office Visit [facility] UROLOGY [address] [place] [address] Brennan Lee MD [address] [address] OAB (overactive bladder) (Primary Dx); Urge incontinence; Lower urinary tract symptoms (LUTS) Social History Tobacco Use Types Packs/Day Years Used Date Smoking Tobacco: Never Passive Smoke Exposure: Past Smokeless Tobacco: Never Tobacco Cessation:Counseling Given: No Comments: smokes, for 45 years Alcohol Use Standard Drinks/Week Comments No 0 (1 standard drink = 0.6 oz pur e alcohol) [facility] Utilities Answer Date Recorded In the past 12 months has [employer] electric, gas, oil, or water company threatened [...] mouth Daily., Disp: 90 tablet, Rfl: 3 xlhuhmxm-witchzsos-tkihhdpsdixwwshvql (POLYDEX) 3.5-77781-3.1 ointment ophthalmic ointment, APPLY SMALL AMOUNT INSIDE [...] and completing patient documentation. Brennan Lee MD [facility] [place] documented in this encounter Plan of Treatment Upcoming Encounters Date Type Department Care Team (Late st Contact Info) Description 05/06/2025 10:30 AM EDT Office Visit [facility] GASTROENTEROLOGY [address] [facility] [address] [place] [address] Palak Graham PAArnaldoC [address] [facility] [address] [place] [address] 05/23/2025 1:30 PM EDT Hospital Encounter [facility] OUTPATIENT ONCOLOGY CANCER CENTER [address] [facility] [address] [place] [address] 06/03/2025 10:40 AM EDT Appointment [facility] [address] [place] [address] 06/05/2025 10:45 AM EDT Office Visit [facility] RHEUMATOLOGY [address] [place] [address] John Sheppard APRN [address] [place] [address] 07/01/2025 11:00 AM EDT Office Visit [facility] UROLOGY [address] [facility] [address] [place] [address] Brennan Lee MD [address] [facility] [address] [place] [address] 07/31/2025 10:00 AM EDT Office Visit [facility] PULMONARY & CRITICAL CARE MEDICINE [address] [facility] [address] [place] [address] Maxine Gibson, LOOPER FIXER [address] [place] [address] documented as of this encounter Goals Goal [...] documented as of this encounter Care Teams Dentures Lab Technician Relationship Specialty Start Date End Date Reza Panchal MD [facility] [place] [address] PCP - General Family Medicine 09/30/24 documented as of this encounter
--- OUTSIDE RECORDS SUMMARY | 2025-03-28 12:35 | XMS_ITS | Encounter Summary ---
[facility] Address [address] [place] [address] Care Team Providers Care Oil Lease Operator Name Role Phone Reza Panchal MD Primary Care Provider +1- [phone] Reason for Visit * Episode Based Medications (Routine) - Closed Specialty Diagnoses / Procedures Referred By Tia holman Referred To Contact Diagnoses Rheumatoid arthritis involving multiple sites with positive rheumatoid factor Procedures [place] GOLIMUMAB FOR IV USE 1MG Patrice Santana DO [address] [place] [address] Phone: tel: fax: [facility] OUTPATIENT [facility]ER [facility]ENTER [address] [address] Phone: tel: fax: Referral ID Status Reason Start Date Expiration Date Visits Re quested Visits Authorized [id number] Closed 05/06/2024 05/06/2025 1 1 Encounter Details Date Type Department Care Team (Latest Contact Info) Description 03/28/2025 12:35 PM EDT - 03/28/2025 11:59 PM EDT Hospital Encounter [facility] OUTPATIENT ON[facility]Y [facility]CER CENTER [address] [facility] [address] [place] [address] Patrice Santana DO [address] [place] [address] Rheumatoid arthritis involving multiple sites with positive rheumatoid factor (Primary Dx) Discharge Disposition: Home or Self Care Social History Tobacco Use Types Packs/Day Years Used Date Smoking Tobacco: Never Passive Smoke Exposure: Past Smokeless Tobacco: Never Comments: smokes, for 45 years Alcohol Use Standard Drinks/Week Comments No 0 (1 standard drink = 0.6 oz pur e alcohol) [facility] Utilities Answer Date Recorded In the past 12 months has th e [employer], gas, oil, or water [employer] threatened to shut off services in your [...] 3 01/28/2025 04/29/20 25 neomycin-polymyxin- dexamethamethasone (POLYDEX) 3.5-26856-1.1 ointment ophthalmic ointment APPLY SMALL AMOUNT INSIDE RIGHT EYE TWICE DAILY UNTIL NEXT APPT 10/28/2024 04/29/20 25 potassium chloride 10 MEQ CR tablet Take 1 tablet by mouth Daily With Breakfast. 04/29/20 25 documented as of this encounter Plan of Treatment Upcoming Encounters Date Type Department Care Team (Late st Contact Info) Description 05/06/2025 10:30 AM EDT Office Visit [facility] GA[facility] [address] [place] [address] Palak Graham PAArnaldoC [address] [place] [address] 05/23/2025 1:30 PM EDT Hospital Encounter [facility] OUTPATIENT ONCOLOGY CANCER CENTER [address] [place] [address] 06/03/2025 10:40 AM EDT Appointment [facility] [address] [place] [address] 06/05/2025 10:45 AM EDT Office Visit [facility] RHEUMATOLOGY [address] [place] [phone] John Sheppard APRN 330 [facility] 100 [place] [address] 07/01/2025 11:00 AM EDT Office Visit [facility] UROLOGY [address] [facility] 502 [place] [address] Brennan Lee MD [address] [facility] 502 [place], [place] [address] 07/31/2025 10:00 AM EDT Office Visit [facility] PULMONARY & CRITICAL CARE MEDICINE [address] [facility] [address] [place] [address] Maxine Gibson, NETWORK SERVICES PROJECT MANAGER [address] [place] [address] documented as of this encounter Goals Goal [...] documented as of this encounter Care Teams Oil Lease Operator Relationship Specialty Start Date End Date Reza Panchal MD [facility] [place] [address] PCP - General Family Medicine 09/30/24 documented as of this encounter
--- OUTSIDE RECORDS SUMMARY | 2025-04-29 09:30 | XMS_ITS | Encounter Summary ---
Author Organization [facility] Address [address] [place] [address] Care Team Providers Care Computer Console Operator Name Role Phone Reza Panchal MD Primary Care Provider +1- [phone] Reason for Visit * Reason Comments Sleep Apnea Follow up Encounter Details Date Type Department Care Team (Late st Contact Info) Description 04/29/2025 9:30 [address] EDT Office [address] [facility] PULMONARY & CRITICAL CARE MEDICINE 3000 [facility] 240 [place] [address] Maxine Gibson, RN TRAVELING 2400 [place] [address] Seasonal allergic rhinitis due to pollen (Primary [...] drink = 0.6 oz pur e alcohol) [facility] Utilities Answer Date Recorded In the past 12 months has [employer], gas, oil, or water [employer] threatened to shut off services in your [...] or training? Not on file Preferred Language [place] 01/28/2025 PHQ-2 Answer Date Recorded Retired PHQ-9: [...] Everywhere. * GERD in Adults: Diet Changes (St Lucian) documented in this encounter Progress Notes * Maxine Gibson APRN - 04/29/2025 9:30 AM EDT [facility] Follow up CHIEF COMPLAINT fatigue HISTORY OF PRESENT ILLNESS Madison Castellanos is a 69 y.o.female here today for follow-up. She was last seen in the office by me in January. She was recently discharged from [facility] yesterday for aspiration pneumonia and sepsis. [...] Description 05/06/2025 10:30 AM EDT Office Visit [facility] GASTROENTEROLOGY [address] [place] [address] Palak Graham PADelano [address] [place] [address] 05/23/2025 1:30 PM EDT Hospital Encounter [facility] OUTPATIENT ONCOLOGY CANCER CENTER 1700 [facility] [address] [place] [address] 06/03/2025 10:40 AM EDT Appointment [facility] DEXA YOEL [address] [place] [address] 06/05/2025 10:45 AM EDT Office Visit [facility] RHEUMATOLOGY [address] [facility] [address] [place] [address] John Sheppard APRN 330 [facility] 100 [place] [address] 07/01/2025 11:00 AM EDT Office Visit [facility] UROLOGY 1760 [facility] 502 [place] [address] Brennan Lee MD 1760 [facility] 502 [place] [address] 07/31/2025 10:00 AM EDT Office Visit [facility] PULMONARY & CRITICAL CARE MEDICINE 3000 [facility] [address] [place] [address] Maxine Gibson, RN TRAVELING [address]00 [place] [address] documented as of this encounter Goals Goal [...] documented as of this encounter Care Teams Computer Console Operator Relationship Specialty Start Date End Date Reza Panchal MD [address] [place] [address] PCP - General Family Medicine 09/30/24 documented as of this encounter
--- OUTSIDE RECORDS SUMMARY | 2025-05-05 14:18 | XMS_ITS | Encounter Summary ---
Author Organization [facility] Address [address] [place] [address] Care Team Providers Care Plastic Machine Operator Name Role Phone Reza Panchal MD Primary Care Provider [phone]- [phone] Encounter Details Date Type Department Care Team [...] Recorded In the past 12 months has [employer] electric, gas, oil, or water company threatened [...] or training? Not on file Preferred Language Malawian 01/28/2025 PHQ-2 Answer Date Recorded Retired PHQ-9: [...] Description 05/06/2025 10:30 AM EDT Office Visit [facility] [facility] [address] [place] [phone] Palak Graham PA-C [address] [place] [address] 05/23/2025 1:30 PM EDT Hospital Encounter [facility] [address] [facility] [address] [place] [address] 06/03/2025 10:40 AM EDT Appointment [facility] [address] [place] [id number] 06/05/2025 10:45 AM EDT Office Visit [facility] RHEUMATOLOGY [address] [facility] [address] [place] [id number] John Sheppard APRN 330 [facility] [address] [place] [address] 07/01/2025 11:00 AM EDT Office Visit [facility] UROLOGY [address] [facility] [address] [place] [address] Brennan Lee MD [address] [facility] [address] [place] [address] 07/31/2025 10:00 AM EDT Office Visit [facility] PULMONARY & CRITICAL CARE MEDICINE [address] [facility] [address] [place] [phone] Maxine Gibson, DISTRICT SCOUT EXECUTIVE [address] [place] [address] documented as of this encounter Goals Goal [...] documented as of this encounter Care Teams Plastic Machine Operator Relationship Specialty Start Date End Date Reza Panchal MD [address] [place] [address] PCP - General Family Medicine 09/30/24 documented as of this encounter
--- OUTSIDE RECORDS SUMMARY | 2025-05-05 14:18 | XMS_ITS | Encounter Summary ---
[facility] Organization [facility] Address [address] [place] [address] Care Team Providers Care Acct Exec Name Role Phone Reza Panchal MD Primary Care Provider +1- [phone] Reason for Visit * Reason Onset Date Comments Med Refill 04/29/2025 Encounter Details Date Type Department Care Team (Late st Contact Info) Description 04/29/2025 Refill [facility] [address] [facility] [address] [place] [address] Tristan Mosley MD [address] [facility] [address] [place] [address] Med Refill Social History Tobacco Use Types Packs/Day Years Used Date Smoking Tobacco: Never Passive Smoke Exposure: Past Smokeless Tobacco: Never Comments: smokes, for 45 years Alcohol Use Standard Drinks/Week Comments No 0 (1 standard drink = 0.6 oz pur e alcohol) [facility] Utilities Answer Date Recorded In the past [...] or training? Not on file Preferred Language Solomon Islander 01/28/2025 PHQ-2 Answer Date Recorded Retired [...] EDT Office Visit [facility] [address] [facility] [address] [place] [address] Palak Graham PADelano [address] [place] [address] 05/23/2025 1:30 PM EDT Hospital Encounter [facility] [address] [facility] [address] [place] [address] 06/03/2025 10:40 AM EDT Appointment [facility] [address] [place] [address] 06/05/2025 10:45 AM EDT Office Visit [facility]UMAT[facility] 330 [facility] [address] [place] [address] John Sheppard APRN 330 [facility] [address] [place] [address] 07/01/2025 11:00 AM EDT Office Visit [facility] UROLOGY [address] [facility] [address] [place] [address] Brennan Lee MD [address] [facility] [address] [place] [address] 07/31/2025 10:00 AM EDT Office Visit [facility] PULMONARY & CRITICAL CARE MEDICINE [address] [facility] [address] [place] [address] ArthurLeigh rothlanjuan Fontaine, COMMUNICATIONS ELECTRICIAN SUPERVISOR [address] [place] [address] documented as of this encounter Goals Goal [...] documented as of this encounter Care Teams Acct Exec Relationship Specialty Start Date End Date Toadvine, Reza K, MD [facility] [place] [address] PCP - General Family Medicine 09/30/24 documented as of this encounter
--- OUTSIDE RECORDS SUMMARY | 2025-05-05 14:18 | XMS_ITS | Encounter Summary ---
Author Organization [facility] Address [address] [place] [address] Care Team Providers Care Manager Privacy Name Role Phone Reza Panchal MD Primary Care Provider +1- [phone] Encounter Details Date Type Department Care Team (Latest Contact Info) Description 04/29/2025 Travel Social History Tobacco Use Types Packs/Day Years Used Date Smoking Tobacco: Never Passive Smoke Exposure: Past Smokeless Tobacco: Never Comments: smokes, for 45 years Alcohol Use Standard Drinks/Week Comments No 0 (1 standard drink = 0.6 oz pur e alcohol) [facility] Utilities Answer Date Recorded In the past 12 months has [employer] electric, gas, oil, or water company threatened [...] Office Visit [facility]Y [address] [facility] [address] [place] [address] Palak Graham PA-C [address] [place] [address] 05/23/2025 1:30 PM EDT Hospital [facility] [address] [facility] [address] [place] [address] 06/03/2025 10:40 AM EDT Appointment [facility] [address] [place] [address] 06/05/2025 10:45 AM EDT Office Visit [facility] RHEUMATOLOGY [address] [facility] [address] [place] [phone] John Sheppard APRN 330 [facility] 100 [place] [address] 07/01/2025 11:00 AM EDT Office Visit [facility] UROLOGY [address] [facility] [address] [place] [address] Brennan Lee MD [address] [facility] [address] [place] [address] 07/31/2025 10:00 AM EDT Office Visit [facility] PULMONARY & CRITICAL CARE MEDICINE [address] [facility] [address] [place] [phone] Maxine Gibson, SALES AGENT [employer] [address] [place] [address] documented as of this encounter Goals Goal [...] documented as of this encounter Care Teams Manager Privacy Relationship Specialty Start Date End Date Reza Panchal MD [address] [place] [address] PCP - General Family Medicine 09/30/24 documented as of this encounter
--- OUTSIDE RECORDS SUMMARY | 2025-05-05 14:18 | XMS_ITS | Clinical Summary ---
Author Organization [facility] Address [address] [facility] [address] [place] [address] Phone Care Team Providers Care Director Nicu Name Role Phone Unavailable Unavailable Conditions or Problems No information available. Medications No information available. Medications Administered No information available. Allergies, Adverse Reactions, Alerts No information available. Results No information available. Plan of Care No information available. Procedures No information available. Vital Signs No information available. Immunizations No information available. Advance Directives No information available.
--- OUTSIDE RECORDS SUMMARY | 2025-05-05 14:18 | XMS_ITS | Encounter Summary ---
[facility] Address [address] [place] [address] Care Team Providers Care Garage Construction Equipment Mechanic Name Role Phone Reza Panchal MD Primary Care Provider +1- [phone] Reason for Visit * Reason Onset Date Comments MED QUESTION 03/27/2025 Encounter Details Date Type Department Care Team (Late st Contact Info) Description 03/27/2025 Telephone [facility] UROLOGY [address] [place] [id number] Brennan Santillan MD [address] [address] MED QUESTION Social History Tobacco Use Types Packs/Day Years Used Date Smoking Tobacco: Never Passive Smoke Exposure: Past Smokeless Tobacco: Never Comments: smokes, for 45 years Alcohol Use Standard Drinks/Week Comments No 0 (1 standard drink = 0.6 oz pur e alcohol) [facility] Utilities Answer Date Recorded In the past 12 months has [employer], gas, oil, or water [employer] threatened to shut off services in your [...] or training? Not on file Preferred Language Swedish 01/28/2025 PHQ-2 Answer Date Recorded Retired PHQ-9: [...] Relationship: GRAND DAUGHTER Best call back number: [phone] What is the best time to reach [...] it okay if the provider responds through [employer]: YES documented in this encounter Plan of Treatment Upcoming Encounters Date Type Department Care Team (Late st Contact Info) Description 05/06/2025 10:30 AM EDT Office Visit [facility] 1720 [facility] 302 [place] [address] Palak Graham PA-C [address] [place] [address] 05/23/2025 1:30 PM EDT Hospital Encounter [facility] OUTPATIENT [facility]COLOGY [facility]CER CENTER [facility]00 [facility] [address] [place] [address] 06/03/2025 10:40 AM EDT Appointment [facility] MINERVA DIALLO 3084 [place] [address] 06/05/2025 10:45 AM EDT Office Visit [facility] RHEUMATOLOGY [address] [place] [address] John Sheppard APRN [address] [facility] 100 [place] [address] 07/01/2025 11:00 AM EDT Office Visit [facility] UROLOGY 1760 [facility] [address] [place] [address] Brennan Santillan MD 1760 [facility] 502 [place] [address] 07/31/2025 10:00 AM EDT Office Visit [facility] PULMONARY & CRITICAL CARE MEDICINE 3000 [facility] 240 [place] [address] Maxine Gibson, JEWELRY MAKER [address] [place] [address] documented as of this encounter Goals Goal [...] documented as of this encounter Care Teams Garage Construction Equipment Mechanic Relationship Specialty Start Date End Date Reza Panchal MD [facility]0 [place] [address] PCP - General Family Medicine 09/30/24 documented as of this encounter
--- OUTSIDE RECORDS SUMMARY | 2025-05-05 14:19 | XMS_ITS ---
Author Name Ephraim RN, REED MAKER, Leigh martienz Sarina Address [address] [address] Phone [phone] Organization [facility] Care Team Providers Care Lottery Sales Clerk Name Role Phone Ivonne Ye Unavailable [phone] Reason for Referral Not Available Allergies, adverse [...] mg Tab TAKE 1 TABLET BY [facility] ONCE DAILY IN AM WITH FOOD [...] mg Cap TAKE 1 CAPSULE BY [facility] TWICE DAILY FOR 10 DAYS 2024-08-14 No [...] EVERY 12 HOURS 2024-01-03 No Data Available [id number] Suspension SHAKE LIQUID AND INSTILL 1 DROP [...] mplaint [facility] [place], [place], [place] 12/25/2024 Encntr for f/u exam aft trtm t for cond oth than malig neoplmSepsis, unspecified organism [facility] 7 Day Disch [place] 12/25/2024 Encntr for f/u exam aft trtm t for cond oth than malig neoplmSepsis, unspecified organism [facility] 7 Day Disch [place] 12/25/2024 Encntr for f/u exam aft trtm t for cond oth than malig neoplmSepsis, unspecified organism [facility] 7 Day Disch [place] 12/25/2024 Encntr for f/u exam aft trtm t for cond oth than malig neoplmSepsis, unspecified organism Telephone E/M Service; 5-10 min of Medical Discussion (Audio Only) [place], 12/27/2024 Sepsis, unspecified organism Telephone E/M Service; 5-10 min of Medical Discussion (Audio Only) [place], 12/27/2024 Sepsis, unspecified organism Vital Signs Date of Collection Vitals 2024-12-25 14:07:15 BP Diastolic - 79.0 mm[Hg]BP Systolic - 143.0 mm[Hg]Heart Rate - 92.0 /min Social History Sex Female History of Procedures Procedures Service Procedure code Service date Servicing provider Phone# [facility] 7 Day Disch [id number] 2024-12-25 No Data Available No Data Avail [...] 5-10 min of Medical Discussion (Audio Only) [id number] 2024-12-27 No Data Available No Data Availa [...] getting around the house wellLana Erica is POA/automotive parts interpreter - she comes over and cooks meals, cleans the house, brings her to appts and the grocery store because pt gets out of breath with too much walkingPD will be a phone visit (Cannot be the following states: [place], [place], [place], [place], [place], [place], [place], [place], [place])Pt Agreed to a post discharge visit with a [facility] Provider: with Ivelisse Reed Friday, December 27, 2024 4:00pm ESTRN reinforced availability of UC provider 24/ for 30 days after discharge and encouraged CB w/ any concerns or if pt is worse in any way. Advised pt to call to reach our staff.Needs/concerns for [facility] provider to address during PD visit: [...] review 2024-12-27 Type of Visit: IPFac [facility]: [facility] Date: 12/19/24Discharge diagnosis: Sepsis, [...]
--- OUTSIDE RECORDS SUMMARY | 2025-05-05 14:19 | XMS_ITS | Encounter Summary ---
[facility] Address [address] [place] [address] Care Team Providers Care Hotel Controller Name Role Phone Reza Panchal MD Primary Care Provider +1- [phone] Reason for Visit * Reason Comments Med Refill Encounter Details Date Type Department Care Team (Late st Contact Info) Description 07/03/2023 Refill [facility] PRIMARY CARE [address] [address] Huyen Hall MD 2039 [facility] 100 [place], [place] [id number] Reactive depression; Type 2 diabetes mellitus with [...] 10:30 AM EDT Office Visit [facility] GASTROENTEROLOGY 1720 [facility] [address] 302 [place] [address] Palak Graham, PAArnaldoC [address] [place] [address] 05/23/2025 1:30 PM EDT Hospital Encounter [facility] OUTPATIENT [facility]Y [facility]ER CENTER 1700 [facility] [address] [address] [place] [address] 06/03/2025 10:40 AM EDT Appointment [facility] MINERVA DIALLO [address] [place] [address] 06/05/2025 10:45 AM EDT Office Visit [facility] RHEUMATOLOGY 330 [facility] 100 [place] [address] John Sheppard APRN 330 [facility] 100 [place], [place] [address] 07/01/2025 11:00 AM EDT Office Visit [facility] UROLOGY 1760 [facility] 502 [place], [place] [id number] Brennan Lee MD 1760 [facility] 502 [place] [address] 07/31/2025 10:00 AM EDT Office Visit [facility] PULMONARY & CRITICAL CARE MEDICINE 3000 [facility] 240 [place] [address] Maxine Gibson, AMERICANIZATION TEACHER [address] [place], [place] [phone] documented as of this encounter Visit Diagnoses [...] documented as of this encounter Care Teams Hotel Controller Relationship Specialty Start Date End Date Reza Panchal MD [address] [place] [address] PCP - General Family Medicine 09/30/24 documented as of this encounter
--- OUTSIDE RECORDS SUMMARY | 2025-05-05 14:19 | XMS_ITS | Encounter Summary ---
[facility] Address [address] [place] [address] Care Team Providers Care Pleating Machine Operator Name Role Phone Reza Panchal MD Primary Care Provider +1- [phone] Reason for Visit * Reason Comments Med Refill Encounter Details Date Type Department Care Team (Late st Contact Info) Description 12/19/2021 Refill [facility] PRIMARY CARE [address] [address] Dia Underwood MD 2039 [facility] 100 [place] [address] Social History Tobacco Use Types [...] Visit [facility] GASTROENTEROLOGY 1720 [facility] 302 [place] [address] Palak Graham PA-C 1720 [facility] [address] [place] [address] 05/23/2025 1:30 PM EDT Hospital Encounter [facility] OUTPATIENT ONCOLOGY CANCER CENTER 1700 [facility] 1100 [place] [address] 06/03/2025 10:40 AM EDT Appointment [facility] MINERVA DIALLO [address]84 [place] [address] 06/05/2025 10:45 AM EDT Office Visit [facility] RHEUMATOLOGY 330 [facility] 100 [place] [address] John Sheppard APRN 330 [facility] 100 [place] [address] 07/01/2025 11:00 AM EDT Office Visit [facility] UROLOGY 1760 [facility] 502 [place] [address] Brennan Lee MD [address] [place] [address] 07/31/2025 10:00 AM EDT Office Visit [facility] PULMONARY & CRITICAL CARE MEDICINE 3000 [facility] [address] [place] [address] Maxine Gibson, PIPE TESTER [address] [place] [address] documented as of this encounter Visit Diagnoses [...] documented as of this encounter Care Teams Pleating Machine Operator Relationship Specialty Start Date End Date Reza Panchal MD [address] [address] PCP - General Family Medicine 09/30/24 documented as of this encounter
--- OUTSIDE RECORDS SUMMARY | 2025-05-05 14:19 | XMS_ITS | Encounter Summary ---
Author Organization [facility] Address [address] [place] [address] Care Team Providers Care Disability Representative Name Role Phone Reza Panchal MD Primary Care Provider +1- [phone] Encounter Details Date Type Department Care Team (Latest Contact Info) Description 03/12/2025 Travel Social History Tobacco Use Types Packs/Day Years Used Date Smoking Tobacco: Never Passive Smoke Exposure: Past Smokeless Tobacco: Never Comments: smokes, for 45 years Alcohol Use Standard Drinks/Week Comments No 0 (1 standard drink = 0.6 oz pur e alcohol) [facility] Utilities Answer Date Recorded In the past 12 months has [employer] electric, gas, oil, or water company threatened [...] or training? Not on file Preferred Language [place] Citizen 01/28/2025 PHQ-2 Answer Date Recorded Retired PHQ-9: [...] EDT Office Visit [facility] GASTROENTEROLOGY 1720 [facility] [address] [place] [address] Palak Graham PA-C [address] [place] [address] 05/23/2025 1:30 PM EDT Hospital Encounter [facility] OUTPATIENT ONCOLOGY CANCER CENTER 1700 [facility] [address] [place] [address] 06/03/2025 10:40 AM EDT Appointment [facility] MINERVA YOEL 3084 [place] [address] 06/05/2025 10:45 AM EDT Office Visit [facility] RHEUMATOLOGY 330 [facility] 100 [place] [address] John Sheppard APRN 330 [facility] 100 [place] [address] 07/01/2025 11:00 AM EDT Office Visit [facility] UROLOGY 1760 [facility] [address] [place] [address] Brennan Lee MD 1760 [facility] [address] [place] [address] 07/31/2025 10:00 AM EDT Office Visit [facility] PULMONARY & CRITICAL CARE MEDICINE 3000 [facility] [address] [place] [address] Maxine Gibson, EXTRUSION TECHNICIAN [address] [place] [address] documented as of this encounter Goals Goal [...] documented as of this encounter Care Teams Disability Representative Relationship Specialty Start Date End Date Reza Panchal MD [address] [place] [address] PCP - General Family Medicine 09/30/24 documented as of this encounter
--- OUTSIDE RECORDS SUMMARY | 2025-05-05 14:19 | XMS_ITS | Encounter Summary ---
Author Organization [facility] Address [address] [place] [address] Care Team Providers Care Cake Cutter Machine Name Role Phone Reza Panchal MD Primary Care Provider +1- [phone] Encounter Details Date Type Department Care Team (Latest Contact Info) Description 03/28/2025 Travel Social History Tobacco Use Types Packs/Day Years Used Date Smoking Tobacco: Never Passive Smoke Exposure: Past Smokeless Tobacco: Never Comments: smokes, for 45 years Alcohol Use Standard Drinks/Week Comments No 0 (1 standard drink = 0.6 oz pur e alcohol) [facility] Utilities Answer Date Recorded In the past 12 months has [employer] electric, gas, oil, or water company threatened [...] or training? Not on file Preferred Language Emirati 01/28/2025 PHQ-2 Answer Date Recorded Retired PHQ-9: [...] 05/06/2025 10:30 AM EDT Office Visit [facility] GASTROENTEROLOGY 1720 [facility] [address] [place] [address] Palak Graham PA-C [address] [place] [address] 05/23/2025 1:30 PM EDT Hospital Encounter [facility] OUTPATIENT ONCOLOGY CANCER CENTER 1700 [facility] [address] [place] [address] 06/03/2025 10:40 AM EDT Appointment [facility] MINERVA YOEL 30[address] [place] [address] 06/05/2025 10:45 AM EDT Office Visit [facility] RHEUMATOLOGY 330 [facility] 100 [place] [address] John Sheppard APRN 330 [facility] 100 [place] [address] 07/01/2025 11:00 AM EDT Office Visit [facility] UROLOGY 1760 [facility] [address] 502 [place] [address] Brennan Lee MD 1760 [facility] [address] [place] [address] 07/31/2025 10:00 AM EDT Office Visit [facility] PULMONARY & CRITICAL CARE MEDICINE 3000 [facility] [address] [place] [address] Maxine Gibson, MUCKER OPERATOR [address] [place] [address] documented as of this encounter Goals Goal [...] documented as of this encounter Care Teams Cake Cutter Machine Relationship Specialty Start Date End Date Reza Panchal MD [address] [place] [address] PCP - General Family Medicine 09/30/24 documented as of this encounter
--- OUTSIDE RECORDS SUMMARY | 2025-05-05 14:19 | XMS_ITS | Encounter Summary ---
Author Organization [facility] Address [address] [place] [address] Care Team Providers Care Ice Cream Dipper Name Role Phone Reza Panchal MD Primary Care Provider +1- [phone] Encounter Details Date Type Department Care Team (Late st Contact Info) Description 01/15/2025 Results Follow-Up [facility] RHEUMATOLOGY [address] [address] Patrice Santana, 330 [facility] 100 [place] [address] Social History Tobacco Use Types Packs/Day Years Used Date Smoking Tobacco: Never Passive Smoke Exposure: Past Smokeless Tobacco: Never Comments: smokes, for 45 years Alcohol Use Standard Drinks/Week Comments No 0 (1 standard drink = 0.6 oz pur e alcohol) [facility] Utilities Answer Date Recorded In the past 12 months has [employer], gas, oil, or water company threatened to [...] or training? Not on file Preferred Language Korean 05/28/2024 PHQ-2 Answer Date Recorded Retired PHQ-9: [...] Description 05/06/2025 10:30 AM EDT Office Visit [facility] GASTROENTEROLOGY 1720 [facility] [address] [address] [place] [address] Palak Graham PA-C [address] [place] [address] 05/23/2025 1:30 PM EDT Hospital Encounter [facility] OUTPATIENT ONCOLOGY CANCER CENTER 1700 [facility] [address] [place] [address] 06/03/2025 10:40 AM EDT Appointment [facility] DEXA YOEL [address] [place] [address] 06/05/2025 10:45 AM EDT Office Visit [facility] RHEUMATOLOGY [address] [facility] [address] [place] [address] John Sheppard APRN 330 [facility] 100 [place] [address] 07/01/2025 11:00 AM EDT Office Visit [facility] UROLOGY 1760 [facility] [address] [place] [address] Brennan Lee MD 1760 [facility] [address] [place] [address] 07/31/2025 10:00 AM EDT Office Visit [facility] PULMONARY & CRITICAL CARE MEDICINE 3000 [facility] [address] [place] [address] Maxine Gibson, WORKERS COMPENSATION CLAIMS ASSISTANT [address] [place] [address] documented as of this encounter Goals Goal [...] documented as of this encounter Care Teams Ice Cream Dipper Relationship Specialty Start Date End Date Reza Panchal MD [facility] [address] [address] PCP - General Family Medicine 09/30/24 documented as of this encounter
--- OUTSIDE RECORDS SUMMARY | 2025-05-05 14:19 | XMS_ITS | Clinical Summary ---
Author Organization [facility] Address [address] [place] [address] Care Team Providers Care Prime Broker Name Role Phone Reza Panchal MD Primary Care Provider +1- [phone] Allergies Active Allergy Reactions Criticality Noted Date [...] DAILY 90 tablet 2 02/07/20 24 025 Discontin ued(Reord er) potassium chloride 10 MEQ CR tablet Take 1 tablet by mouth Daily With Breakfast. 025 Discontin ued(Dupli maikel order) neomycin-polymyxin -dexamethamethason e (POLYDEX) 3.5-02243-3.1 ointment ophthalmic ointment APPLY SMALL AMOUNT INSIDE RIGHT EYE TWICE DAILY UNTIL NEXT APPT 10/28/19 25 025 Discontin ued(*Ther apy completed ) albuterol sulfate HFA 108 (90 Base) MCG/ACT inhalerIndications :Chronic cough Inhale 2 puffs Every 4 (Four) Hours As Needed for Wheezing or Shortness of Air. 18 g 6 01/29/20 25 025 Discontin ued(Reord er) Fluticasone-Salmet shira (ADVAIR/WIXELA) 100-50 MCG/ACT DISKUSIndications: Chronic cough Inhale 1 puff 2 (Two) Times a Day. 180 each 3 01/29/20 25 025 Discontin ued(Reord er) Active Problems Problem Noted Date Diagnosed Date [...] for respiratory distress or severe symptoms. Rx Hien-Jocy Pang, follow-up if symptoms or not improving over [...] Angina pectoris 05/03/2019 Overview (12/31/2020): a. Remote [facility] -- data deficit: No reported disease. b. L ight [place] with medical treatment. c. [facility], 05/12/2011, Dr. Mosley: Angiographically normal coronary arteries. [...] Description 04/29/2025 9:30 AM EDT Office Visit [facility] PULMONARY & CRITICAL CARE MEDICINE [address] [facility] [address] [place] [phone] Maxine Gibson APRN Seasonal allergic rhinitis due to pollen (Primary Dx); Chronic cough; GERD without esophagitis; DEVANG (obstructive sleep apnea)/suspected nocturnal hypoxemia.-by history. Intolerant of NIPPV in past. 04/29/2025 Refill [facility] CARDIOLOGY [address] [facility] [address] [place] [address] Tristan Mosley MD Med Refill 04/29/2025 Travel 03/28/2025 12:35 PM EDT - 03/28/2025 11:59 PM EDT Hospital Encounter [facility] OUTPATIENT ONCOLOGY CANCER CENTER [address] [facility] [address] [place] [address] Patrice Santana DO Rheumatoid arthritis involving multiple sites with positive rheumatoid factor (Primary Dx) Discharge Disposition: Home or Self Care 03/28/2025 Travel 03/27/2025 Telephone [facility] UROLOGY [address] [facility] [address] [place] [phone] Brennan Lee MD MED QUESTION 03/26/2025 10:10 AM EDT Office Visit [facility] UROLOGY [address] [facility] [address] [place] [address] Brennan Lee MD OAB (overactive bladder) (Primary Dx); Urge incontinence; Lower urinary tract symptoms (LUTS) 03/26/2025 Travel 03/12/2025 9:20 AM EDT Office Visit [facility] UROLOG[facility] [address] [facility] [address] [place] [address] Brennan Lee MD Erythema (Primary Dx) 03/12/2025 Travel 03/03/2025 Refill [facility] PRIMARY CARE [address] [facility] [address] [place] [address] Huyen Hall MD 02/20/2025 8:44 AM EDT Anesthesia Event [facility] OR [address] [place] [address] Azael Dunn MD 02/20/2025 8:21 AM EDT - 02/20/2025 10:06 AM EDT Surgery [facility] OR [address] [facility] [place] [address] Brennan Lee MD INTERSTIM STAGES 1 AND 2 LEAD AND GENERATOR PLACEMENT 02/20/2025 6:31 AM EDT - 02/20/2025 11:30 AM EDT Hospital Encounter [facility] OR [address] [facility] [place] [address] Brennan Lee MD OAB (overactive bladder); Urge incontinence Discharge Disposition: Home or Self Care 02/20/2025 Travel 02/11/2025 10:30 AM EDT Office Visit [facility] UROLOGY [address] [address] Brennan Lee MD OAB (overactive bladder) (Primary Dx); Urge incontinence 02/11/2025 Travel 02/04/2025 9:15 AM EDT Anesthesia Event [facility] OR [address] [place] [address] Primo Brooks Jr., MD 02/04/2025 8:47 AM EDT - 02/04/2025 9:53 AM EDT Surgery [facility] OR [address] [place] [address] Brennan Lee MD INTERSTIM BILATERAL PERC TEST [41963 (CPT )] 02/04/2025 6:48 AM EDT - 02/04/2025 10:57 AM EDT Hospital Encounter [facility] OR [address] [place] [address] Brennan Lee MD OAB (overactive bladder); Urge incontinence Discharge Disposition: Home or Self Care 02/04/2025 Travel from Last 3 Months Immunizations Immunization Administration [...] drink = 0.6 oz pur e alcohol) [facility] Utilities Answer Date Recorded In the past 12 months has [employer], oil, or water [employer] threatened to shut off services in your [...] Description 05/06/2025 10:30 AM EDT Office Visit [facility] [address] [facility] [address] [place] [address] Palak Graham PA-C [address] [facility] [address] [place] [address] 05/23/2025 1:30 PM EDT Hospital Encounter [facility] OUTPATIENT ONCOLOGY CANCER CENTER [address] [facility] [address] [place] [address] 06/03/2025 10:40 AM EDT Appointment [facility] DEXA YOEL [address] [place] [address] 06/05/2025 10:45 AM EDT Office Visit [facility] RHEUMATOLOGY [address] [place] [address] John Sheppard APRN [address] [place] [address] 07/01/2025 11:00 AM EDT Office Visit [facility] UROLOG[facility] [address] [facility] [address] [place] [address] Brennan Lee MD [address] [facility] [address] [place] [address] 07/31/2025 10:00 AM EDT Office Visit [facility] PULMONARY & CRITICAL CARE MEDICINE [address] [facility] [address] [place] [address] Maxine Gibson, SPORTS MARKETER [address] [place] [address] Health Maintenance Due Date Last Done Comments COLOGUARD 2002 COLON CANCER SCREENING 5 YEA R SIGMOIDOSCOPY 2002 CT COLONOGRAPHY 2002 FIT Testing (1 year) 2002 URINE MICROALBUMIN-CREATININ E RATIO (uACR) 04/13/2022 04/13/2021, 04/07/2020, 07/16/2019 TDAP/TD VACCINES (2 - Td or Tdap) 04/24/2022 012 DIABETIC FOOT EXAM 01/05/2024 01/04/2023, 0 01/04/2023, 01/04/2023, Additional history exists [facility] PLAN OF CARE 02/07/2024 ANNUAL WELLNESS VISIT [...] day. Notes: Medical Devices Implanted Type Area Airport Representative Device Identifier Shelf Expiration Date Model / Serial / Lot Pk Imp Trial Basic Bilat W/Ext Neurostm/Pne Ld Imp Kt - [id number] Implanted:Qty: 1 on 02/04/2025 by Brennan Lee MD at [facility] Implant N/A: Back [employer] 07/15/2025 1E01 / / [id number] Ld Neurostm Sacral Pne - [id number] Implanted:Qty: 1 on 02/04/2025 by Brennan Lee MD at [facility] Implant Back [employer] 02/20/2027 1901 / / [id number] Neurostm Sacral/Nerv [employer] Nonrechg W/Torq Wrench - [id number] Implanted:Qty: 1 on 02/20/2025 by Brennan Lee MD at [facility] Implant N/A: Back [employer] 12/12/2025 4101 / / [id number] Kt Ld Stim Tined [employer] W/2/Sty Str/Crv - [id number] Implanted:Qty: 1 on 02/20/2025 by Brennan Lee MD at [facility] Implant N/A: Back [employer] 02/27/2027 1201 / / [id number] Procedures Procedure Name Priority Date/Time Associated Diagnosis Comments FL C ARM DURING SURGERY Routine 02/20/2025 9:31 AM EDT ANESTHESIA INTUBATION Routine 02/20/2025 8:47 AM EDT INTERSTIM STAGES 1 AND 2 LEAD AND GENERATOR PLACEMENT 02/20/2025 8:29 AM EDT OAB (overactive bladder) Urge incontinence Special Needs [employer] VENDOR CLAUDETTE WYNN NOTIFIED 02/12/25+ COMPREHENSIVE METABOLIC PANEL STAT 02/20/2025 7:09 AM EDT CBC (NO DIFF) STAT 02/20/2025 7:09 AM EDT POCT GLUCOSE FINGERSTICK Routine 02/20/2025 7:03 AM EDT ID ELEC PRETTY IMPLT NPGT PHYS/QHP W/O PROGRAMMING [...] and Staff Patient location during procedure: OR METAL MINER BLASTING/CAA: Junior Milan Feng CRNA Indications and Patient [...] bilaterally with symmetric chest rise and fall Pastor F Ping METAL MINER BLASTING ANESTHESIA ORDERABLES Fin al Result * CBC (No Diff) (02/20/2025 7:09 AM EDT) WBC 7.15 3.40 - 10.80 10*3/mm3 02/20/2025 7:29 AM EDT [facility] RBC 4.33 3.77 - 5.28 10*6/mm3 02/20/2025 7:29 AM EDT [facility] Hemoglobin 12.9 12.0 - 15.9 g/dL 02/20/2025 7:29 AM EDT [facility] Hematocrit 39.6 34.0 - 46.6 % 02/20/2025 7:29 AM EDT [facility] MCV 91.5 79.0 - 97.0 fL 02/20/2025 7:29 AM EDT [facility] MCH 29.8 26.6 - 33.0 pg 02/20/2025 7:29 AM EDT [facility] MCHC 32.6 31.5 - 35.7 g/dL 02/20/2025 7:29 AM EDT [facility] RDW 13.2 12.3 - 15.4 % 02/20/2025 7:29 AM EDT [facility] RDW-SD 43.7 37.0 - 54.0 fl 02/20/2025 7:29 AM EDT [facility] MPV 9.7 6.0 - 12.0 fL 02/20/2025 7:29 AM EDT [facility] Platelets 205 140 - 450 10*3/mm3 02/20/2025 7:29 AM EDT [facility] Blood Line / Unknown 02/20/2025 7: 09 AM EDT 02/20/2025 7:09 AM EDT Azael Dunn MD LAB BLOOD ORDERAB LES Final Result [facility]
[address] [place] [address], * (ABNORMAL) Comprehensive Metabolic Panel (02/20/2025 7:09 AM EDT) Glucose 105(H) 65 - 99 mg/dL 02/20/2025 7:43 AM EDT [facility] BUN 20 8 - 23 mg/dL 02/20/2025 7:43 AM EDT [facility] Creatinine 0.82 0.57 - 1.00 mg/dL 02/20/2025 7:43 AM [facility] Sodium 136 136 - 145 mmol/L 02/20/2025 7:43 AM [facility] Potassium 4.3 3.5 - 5.2 mmol/L 02/20/2025 7:43 AM [facility] Comment:Slight hemolysis det ected by analyzer. Result may be falsely elevated. Chloride 101 98 - 107 mmol/L 02/20/2025 7:43 AM [facility] CO2 24.0 22.0 - 29.0 mmol/L 02/20/2025 7:43 AM [facility] Calcium 9.0 8.6 - 10.5 mg/dL 02/20/2025 7:43 AM [facility] Total Protein 7.2 6.0 - 8.5 g/dL 02/20/2025 7:43 AM [facility] Albumin 4.0 3.5 - 5.2 g/dL 02/20/2025 7:43 AM [facility] ALT (SGPT) 20 1 - 33 U/L 02/20/2025 7:43 AM [facility] AST (SGOT) 19 1 - 32 U/L 02/20/2025 7:43 AM [facility] Alkaline Phosphatase 89 39 - 117 U/L 02/20/2025 7:43 AM [facility] Total Bilirubin 0.3 0.0 - 1.2 mg/dL 02/20/2025 7:43 AM [facility] Globulin 3.2 gm/dL 02/20/2025 7:43 AM [facility] Comment:Calculated Result A/G Ratio 1.3 g/dL 02/20/2025 7:43 AM [facility] BUN/Creatinine Ratio 24.4 7.0 - 25.0 02/20/2025 7:43 AM [facility] Anion Gap 11.0 5.0 - 15.0 mmol/L 02/20/2025 7:43 AM EDT [facility] eGFR 78.5 >60.0 mL/min/1.7 3 02/20/2025 7:43 AM EDT [facility] Blood Line / Unknown 02/20/2025 7: 09 AM EDT 02/20/2025 7:09 AM EDT Narrative [facility] - 02/20/2025 7:43 AM EDT GFR [...] MD LAB BLOOD ORDERAB LES Final Result Performing Organization Address City/[facility]/ZIP Co de Phone Number [facility]
[address] [place] [address], * POC Glucose Once (02/20/2025 7:03 AM EDT) Only the most recent of2 resultswithin the time period is included. Glucose 100 70 - 130 mg/dL 02/20/2025 7:07 AM EDT [facility] Blood 02/20/2025 7:03 AM EDT 02/20/2025 7:07 AM EDT Brennan Lee MD POINT OF CARE TEST ORDERABLES F inal Result Performing Organization Address City/[facility]/ZIP Co de Phone Number [facility]
[address] [place] [address], [place] [phone] * (ABNORMAL) POC Glycosylated Hemoglobin (Hb A1C) (04/15/2024 3:58 PM EDT) Pathologist [facility] Hemoglobin A1C 5.6 4.5 - 5.7 % [facility] Lot Number [id number] [facility] Expiration Date 12/31/2025 [facility] Blood 04/15/2024 3:58 PM EDT Huyen Pal MD POINT OF CARE TEST ORDERABL ES Final Result Performing Organization Address City/[facility] Co de Phone Number [facility]
[address] [place] [address], [place] [phone] * (ABNORMAL) Hepatitis Panel, Acute (04/12/2024 11:29 AM EDT) [facility] Hepatitis B Surface Ag Non-Reacti ve Non-Reacti ve 04/13/2024 1:52 AM EDT [facility] Hep A IgM Reactive(A ) Non-Reacti ve 04/13/2024 1:52 AM EDT [facility] Hep B C IgM Non-Reacti ve Non-Reacti ve 04/13/2024 1:52 AM EDT [facility] Hepatitis C Ab Non-Reacti ve Non-Reacti ve 04/13/2024 1:52 AM EDT [facility] Blood Venipuncture / Unknown 04/12/2024 11:29 AM EDT 04/12/2024 11:32 AM EDT Narrative [facility] - 04/13/2024 1:52 AM EDT Results may be falsely decreased if patient taking Biotin. Patrice Santana DO LAB BLOOD ORDERABLES F inal Result Performing Organization Address City/[facility]/ZIP Co de Phone Number [facility]
[address] [place] [address], [place] [phone] * DEXA Scan (04/10/2024 12:14 PM EDT) Anatomical Region Laterality Modality Other Historical Provider MD PEDRAZA CHART REVIEW TABS Maira suazo Result * (ABNORMAL) Lipid Panel (02/21/2024 10:20 AM EDT) Total Cholesterol 143 0 - 200 mg/dL 02/21/2024 11:45 PM EDT [facility] Triglycerides 212(H) 0 - 150 mg/dL 02/21/2024 11:45 PM EDT [facility] HDL Cholesterol 37(L) 40 - 60 mg/dL 02/21/2024 11:45 PM EDT [facility] LDL Cholesterol 71 0 - 100 mg/dL 02/21/2024 11:45 PM EDT [facility] VLDL Cholesterol 35 5 - 40 mg/dL 02/21/2024 11:45 PM EDT [facility] LDL/HDL Ratio 1.72 02/21/2024 11:45 PM EDT [facility] Blood Structure of right upper limb / Unknown Venipuncture / Unknown 02/21/2024 10:20 AM EDT 02/21/2024 10:20 AM EDT Narrative [facility] - 02/21/2024 11:45 PM EDT Cholesterol [...] Pal MD LAB BLOOD ORDERABLES Final Result [facility]
[address] [place] [address], * SCANNED - EYE EXAM (07/20/2023) Anatomical Region Laterality Modality Other us Huyen Pal MD CHART REVIEW TABS Final [...] distortion, or other secondary signs of malignancy. us Huyen Pal MD IM MAMMOGRAPHY ORDERABLES Final Result * POCT occult blood x 1 stool (04/13/2023 11:32 AM EDT) Fecal Occult Blood Negative Negative [facility] Lot Number [id number] [facility] Expiration Date 11/15/2024 [facility] DEVELOPER LOT NUMBER [id number] [facility] DEVELOPER EXPIRATION DATE 02/12/2025 [facility] Positive Control Positive Positive [facility] Negative Control Negative Negative [facility] Stool 04/13/2023 11:3 2 AM EDT Huyen Pal MD POINT OF CARE TEST ORDERABL ES Final Result [facility]
[address] [place] [address], * Microalbumin / Creatinine Urine Ratio - [...] 2:11 PM EDT 04/14/2021 Comment:URINE RELEASE TO [facility] Narrative [facility] (AM[facility]) - 04/14/2021 10:09 AM EDT Performed at: 01 - [facility] [id number] Particle Board Supervisor: Jean Stephens PhD, Phone: [phone] Huyen Pal MD URINE ORDERABLES Final Resu lt [facility] (AMBULATORY) [address] [place] [address], [place] [phone] [facility] [address] [place] [address], [place] [phone] * SCANNED - INFLUENZA (07/16/2019) Huyen Pal MD CHART REVIEW TABS Final Result * SCANNED - COLONOSCOPY (11/14/2013) Lizbeth Ibarra MD CHART REVIEW TABS Final Result from Last 3 Months or Most Recently Relevant to Health Maintenance Additional Health Concerns Infection Onset Date Last Indicated Hepatitis A 04/12/2024 04/12/2024 Insurance A[employer] MEDICARE ADVANTAGE [facility] [place] MEDICAID QMB Advance Directives Documents on File Type Date Recorded Patient Treasury Manager Expl anation PATIENT ADVANCE DIRECTIVES - SCAN [...] Of Support Discussed With: Patient Care Teams Prime Broker Relationship Specialty Start Date End Date Reza Panchal MD [address] [place] [address] PCP - General Family Medicine 09/30/24
--- OUTSIDE RECORDS SUMMARY | 2025-05-05 14:19 | XMS_ITS | Clinical Summary ---
Author Organization Healthcare Address [address] [place] [address] Care Team Providers Care Principal Software Architect Name Role Phone eRza Panchal MD Primary Care Provider +1- [phone] Allergies Active Allergy Reactions Criticality Noted Date [...] file Insurance [employer] [place]IC[place] Care Teams Principal Software Architect Relationship Specialty Start Date End Date Reza Panchal MD [address] [place] [address] PCP - General 08/17/24
--- OUTSIDE RECORDS SUMMARY | 2025-05-05 14:19 | XMS_ITS | Encounter Summary ---
Author Organization Healthcare Address [address] [place] [address] Care Team Providers Care Etl Data Architect Name Role Phone Reza Panchal MD Primary Care Provider +1- [phone] Encounter Details Date Type Department Care Team (Late st Contact Info) Description 08/17/2024 Ophth Exam [facility] - Pediatrics [address] [place] [phone] Tian Ramírez MD [address] [place] [address] Social History Tobacco Use Types Packs/Day [...] on filedocumented in this encounter Care Teams Etl Data Architect Relationship Specialty Start Date End Date Reza Panchal MD [address] [place] [address] PCP - General 08/17/24 documented as of this encounter
--- OUTSIDE RECORDS SUMMARY | 2025-05-05 14:19 | XMS_ITS | Encounter Summary ---
Author Organization [facility] Address [address] [place] [address] Care Team Providers Care Research And Insights Executive Name Role Phone Reza Panchal MD Primary Care Provider +1- [phone] Reason for Visit * Reason Comments Med Refill Encounter Details Date Type Department Care Team (Late st Contact Info) Description 03/22/[address] [facility] PRIMARY CARE [address] [address] Huyen Hall MD [address] [facility] [address] [place], [place] [id number] Acquired hypothyroidism Social History Tobacco Use Types Packs/Day Years Used Date Smoking Tobacco: Never Smokeless Tobacco: Never Comments: smokes, for 45 years Alcohol Use Standard Drinks/Week Comments No 0 (1 standard drink = 0.6 oz pur e alcohol) [facility] Utilities Answer Date Recorded In the past 12 months has [employer], gas, oil, or water company threatened to [...] or training? Not on file Preferred Language [place]ican 01/11/2024 PHQ-2 Answer Date Recorded Retired PHQ-9: [...] AM EDT Office Visit [facility] GASTROENTEROLOGY [address] [facility] [address] [place] [address] Palak Graham PA-C [address] [place] [address] 05/23/2025 1:30 PM EDT Hospital Encounter [facility] OUTPATIENT ONCOLOGY CANCER CENTER [address] [facility] [address] [place] [address] 06/03/2025 10:40 AM EDT Appointment [facility] DEXA YOEL [address] [place] [address] 06/05/2025 10:45 AM EDT Office Visit [facility] RHEUMATOLOGY [address] [facility] [address] [place] [address] John Sheppard APRN 330 [facility] [address] [place] [address] 07/01/2025 11:00 AM EDT Office Visit [facility]OLOGY [address] [facility] [address] [place] [address] Brennan Lee MD [address] [facility] [address] [place] [address] 07/31/2025 10:00 AM EDT Office Visit [facility] PULMONARY & CRITICAL CARE MEDICINE [address] [facility] [address] [place] [address] Maxine Gibson, HIDES INSPECTOR [address] [place] [address] documented as of this encounter Goals Goal [...] documented as of this encounter Care Teams Research And Insights Executive Relationship Specialty Start Date End Date Reza Panchal MD [facility] [place] [address] PCP - General Family Medicine 09/30/24 documented as of this encounter
--- OUTSIDE RECORDS SUMMARY | 2025-05-05 14:19 | XMS_ITS | Encounter Summary ---
[facility] Address [address] [place] [address] Care Team Providers Care Mill House Supervisor Name Role Phone Reza Panchal MD Primary Care Provider +1- [phone] Reason for Visit * Reason Comments Med Refill Encounter Details Date Type Department Care Team (Late st Contact Info) Description 03/03/2025 Refill [facility] PRIMARY CARE [address] [address] Huyen Hall MD [address] [facility] [facility] [address] [place] [address] Social History Tobacco Use Types Packs/Day Years Used Date Smoking Tobacco: Never Passive Smoke Exposure: Past Smokeless Tobacco: Never Comments: smokes, for 45 years Alcohol Use Standard Drinks/Week Comments No 0 (1 standard drink = 0.6 oz pur e alcohol) [facility] Utilities Answer Date Recorded In the past 12 months has [employer] electric, gas, oil, or water company threatened [...] or training? Not on file Preferred Language Lebanese 01/28/2025 PHQ-2 Answer Date Recorded Retired PHQ-9: [...] Description 05/06/2025 10:30 AM EDT Office Visit [facility] [address] [place] [phone] Palak Graham PA-C [address] [place] [address] 05/23/2025 1:30 PM EDT Hospital Encounter [facility] OUTPATIENT [facility]ER [facility]ENTER [address] [place] [address] 06/03/2025 10:40 AM EDT Appointment [facility] [place] [address] [place] [phone] 06/05/2025 10:45 AM EDT Office Visit [facility] RHEUMATOLOGY [address] [place] [phone] John Sheppard APRN [address] [place] [address] 07/01/2025 11:00 AM EDT Office Visit [facility] UROLOGY 1760 [facility] [address] [place] [address] Brennan Lee MD 1760 [facility] 502 [place], [place] [address] 07/31/2025 10:00 AM EDT Office Visit [facility] PULMONARY & CRITICAL CARE MEDICINE 3000 [facility] [address] [place] [phone] Maxine Gibson, HIGH DENSITY FINISHING OPERATOR [address] [place] [address] documented as of this encounter Goals Goal [...] documented as of this encounter Care Teams Mill House Supervisor Relationship Specialty Start Date End Date Reza Panchal MD [address] [place] [address] PCP - General Family Medicine 09/30/24 documented as of this encounter
--- OUTSIDE RECORDS SUMMARY | 2025-05-05 14:19 | XMS_ITS | Encounter Summary ---
[facility] [address] [place] [address] Care Team Providers Care Traffic Technician Name Role Phone Reza Panchal MD Primary Care Provider +1- [phone] Reason for Visit * Reason Comments Med Refill Encounter Details Date Type Department Care Team (Late st Contact Info) Description 02/12/2021 Refill [facility] PRIMARY CARE [address] [address] Huyen Hall MD 2039 [facility] 100 [place], [place] [phone] Gastroesophageal reflux disease, unspecified whether esophagitis present [...] EDT Office Visit [facility] GASTROENTEROLOGY [address] [facility] 302 [place] [address] Palak Graham PA-C [address] [place] [address] 05/23/2025 1:30 PM EDT Hospital Encounter [facility] OUTPATIENT [facility]COLOGY [facility]ER CENTER 1700 [facility] [address] [place] [address] 06/03/2025 10:40 AM EDT Appointment [facility] [place] [address] [place] [phone] 06/05/2025 10:45 AM EDT Office Visit [facility] RHEUMATOLOGY 330 [facility] 100 [place] [phone] John Sheppard, VEGETABLE CANNER [address] [place] [address] 07/01/2025 11:00 AM EDT Office Visit [facility] UROLOGY 1760 [facility] [address] [place] [address] Brennan Lee MD 1760 [facility] [address] [place] [address] 07/31/2025 10:00 AM EDT Office Visit [facility] PULMONARY & CRITICAL CARE MEDICINE 3000 [facility] [address] [place] [phone] Maxine Gibson, VEGETABLE CANNER [address] [place] [address] documented as of this encounter Visit Diagnoses [...] documented as of this encounter Care Teams Traffic Technician Relationship Specialty Start Date End Date Reza Panchal MD [address] [place] [address] PCP - General Family Medicine 09/30/24 documented as of this encounter
--- OUTSIDE RECORDS SUMMARY | 2025-05-05 14:19 | XMS_ITS | Encounter Summary ---
[facility] [address] [place] [address] Care Team Providers Care It Service Delivery Manager Name Role Phone Reza Panchal MD Primary Care Provider +1- [phone] Reason for Visit * Reason Comments Med Refill Encounter Details Date Type Department Care Team (Late st Contact Info) Description 02/24/2023 Refill [facility] PRIMARY CARE [address] [address] Huyen Hall MD 2039 [facility] 100 [place], [place] [phone] Type 2 diabetes mellitus with hyperglycemia, without [...] Description 05/06/2025 10:30 AM EDT Office Visit [facility] GASTROENTEROLOGY 1720 [facility] 302 [place] [address] Palak Graham PA-C [address] [place] [address] 05/23/2025 1:30 PM EDT Hospital Encounter [facility] OUTPATIENT ONCOLOGY CANCER CENTER 1700 [facility] [address] [place] [address] 06/03/2025 10:40 AM EDT Appointment [facility] [place] [address] [place] [address] 06/05/2025 10:45 AM EDT Office Visit [facility] RHEUMATOLOGY [address] [place] [phone] John Sheppard, MUSIC THERAPIST [employer] 330 [facility] 100 [place] [address] 07/01/2025 11:00 AM EDT Office Visit [facility] UROLOGY 1760 [facility] 502 [place], [place] [phone] Brennan Lee MD 1760 [facility] 502 [place] [address] 07/31/2025 10:00 AM EDT Office Visit [facility] PULMONARY & CRITICAL CARE MEDICINE 3000 [facility] 240 [place] [phone] Maxine Gibson, MUSIC THERAPIST [employer] [address] [place] [address] documented as of this encounter Visit Diagnoses [...] documented as of this encounter Care Teams It Service Delivery Manager Relationship Specialty Start Date End Date Reza Panchal MD [address] [place], [place] [id number] PCP - General Family Medicine 09/30/24 documented as of this encounter
== END 2025-05-05 23:59 | disposition home or self-care (01) ==
LOC: LAB.DROPOF 14:14
PROVIDERS: PCP Family Medicine; Visit Provider Family Medicine
DX: N39.0 Urinary tract infection, site not specified (principal)
CPT/HCPCS: 87086

== ENCOUNTER 2025-05-08 11:59 | Outpatient (CLI) | payer MEDICARE, MEDICAID, SELFPAY ==
--- OUTSIDE RECORDS SUMMARY | 2017-02-08 12:08 | XMS_ITS | Encounter Summary ---
Author Organization [facility] Address [address] [place] [address] Care Team Providers Care Child Caregiver Private Home Name Role Phone Lizbeth Ibarra MD Primary Care Provider Unav ailable Encounter Details Date Type Department Care Team (Late st Contact Info) Description 02/08/2017 12:08 PM EDT Hospital Encounter [facility] PULMONARY & CRITICAL CARE MEDICINE 2400 [place] [address] Social History Tobacco Use Types Packs/Day Years Used Date Smoking Tobacco: Never Passive Smoke Exposure: Past Smokeless Tobacco: Never Comments: smokes, for 45 years Alcohol Use Standard Drinks/Week Comments No 0 (1 standard drink = 0.6 oz pur e alcohol) [facility] Utilities Answer Date Recorded In the past 12 months has [employer], gas, oil, or water [employer] threatened to shut off services in your [...] or training? Not on file Preferred Language Bahamian 01/28/2025 PHQ-2 Answer Date Recorded Retired PHQ-9: [...] 7:09 AM EDT Dary Chapin RN * [place] Suicide Severity Rating Scale (Screener/Recent Self-Report) Question Answer Date of Assessment Author 6. Suicidal Behavior (Lifetime) No 7:09 AM EDT Dary Benites RN documented as of this encounter Plan of Treatment Upcoming Encounters Date Type Department Care Team (Late st Contact Info) Description 05/14/2025 1:15 PM EDT Office Visit [facility] UROLOGY 3000 [facility] 340 [place] [address] Sanam Saunders, AIRCRAFT RIVETER [address] [facility] [address] [place] [address] 05/23/2025 1:30 PM EDT Hospital Encounter [facility] OUTPATIENT ONCOLOGY [facility] 1700 [facility] [address] [place] [address] 06/03/2025 10:40 AM EDT Appointment [facility] DEXA YOEL 30[address] [place] [address] 06/05/2025 10:45 AM EDT Office Visit [facility] RHEUMATOLOGY 330 [facility] 100 [place] [phone] John Sheppard, AIRCRAFT RIVETER 330 [facility] 100 [place] [address] 07/01/2025 11:00 AM EDT Office Visit [facility] UROLOGY 1760 [facility] [address] [place] [address] Brennan Lee MD 1760 [facility] [address] [place] [address] 07/16/2025 10:30 AM EDT Office Visit [facility] GASTROENTEROLOGY 1720 [facility] [address] [place] [address] Palak Graham PA-C 1720 [facility] [address] [place], [place] [phone] 07/31/2025 10:00 AM EDT Office Visit [facility] PULMONARY & CRITICAL CARE MEDICINE 3000 [facility] 240 [place] [address] Maxine Gibson, PARVIZ 2400 [place] [address] documented as of this encounter Goals Goal Patient Goal Type Associated Problems Recent Progress Patient-Stated? Author Track and Manage My Blood Pressure Patient Goals Nathalia Kovacs, RN Note: Follow [...] Skin Clean and Dry Patient Goals Nathalia Kovacs, RN Note: Follow Up Date - clean and dry skin well Why is this important? Leaking urine (pee) can cause soreness from skin rashes and redness. This is caused by skin being exposed to urine (pee). Notes: Track and Manage My Symptoms Patient Goals Nathalia Kovacs RN Note: Follow [...] documented as of this encounter Care Teams Child Caregiver Private Home Relationship Specialty Start Date End Date Lizbeth Ibarra MD PCP - General 06/18/15 07/10/17 documented as of this encounter
--- OUTSIDE RECORDS SUMMARY | 2022-02-25 11:00 | XMS_ITS | Encounter Summary ---
Author Organization [facility] Address [address] [place] [address] Care Team Providers Care Photographer Portrait Name Role Phone Johanna Jeffrey MD Primary Care Provider +1- [phone] Reason for Visit * Monitoring (Routine) - Closed Specialty Diagnoses / Procedures Referred By Contkirt holman Referred To Contact Diagnoses Palpitations Dizziness Procedures Mobile Cardiac Outpatient Telemetry Cardiac Event Monitor Tiffany Maier MD [address] [place] [address] Phone: tel: fax: [facility] [address] [facility] [address] [facility] 100 [place] [address] Phone: tel: Referral ID Status Reason Start Date Expiration Date Visits Re quested Visits Authorized [id number] Closed 02/25/2022 02/25/2023 1 1 Encounter Details Date Type Department Care Team ([facility] Contact Info) Description 02/25/2022 11:00 AM EDT Hospital Encounter [facility] CARDIOLOGY [address] [place] [address] Palpitations; Dizziness Social History Tobacco Use Types Packs/Day Years Used Date Smoking Tobacco: Never Passive Smoke Exposure: Past Smokeless Tobacco: Never Comments: smokes, for 45 years Alcohol Use Standard Drinks/Week Comments No 0 (1 standard drink = 0.6 oz pur e alcohol) [facility] Utilities Answer Date Recorded In the past 12 months has th e electric, gas, oil, or water company threatened to shut off services in your [...] or training? Not on file Preferred Language Albanian 01/28/2025 PHQ-2 Answer Date Recorded Retired PHQ-9: [...] Month) No 02/20/2025 7:09 AM EDT Dary Benites RN 2. Non-Specific Active Suici mack Thoughts (Past 1 Month) No 02/20/2025 7:09 AM EDT Deana Benites RN * Calculated C-SSRS Risk Score (Lifetime/Recent) Answer Date of Assessment Author No Risk Indicated 02/20/2025 7:09 AM EDT Dary Chapin RN * [place] Suicide Severity Rating Scale (Screener/Recent Self-Report) Question Answer Date of Assessment Author 6. Suicidal Behavior (Lifetime) No 7:09 AM EDT Dary Benites RN documented as of this encounter Plan of Treatment Upcoming Encounters Date Type Department Care Team (Late st Contact Info) Description 05/14/2025 1:15 PM EDT Office Visit [facility] UR[facility]Y [address] [facility] [address] [place] [address] Sanam Saunders, INDUSTRIAL PROPERTY APPRAISER [address] [facility] [address] [place] [address] 05/23/2025 1:30 PM EDT Hospital Encounter [facility] OUTPATIENT ONCOLOGY [facility] 1700 [facility] 1100 [place] [address] 06/03/2025 10:40 AM EDT Appointment [facility] [address] [place] [address] 06/05/2025 10:45 AM EDT Office Visit [facility] RHEUMATOLOGY [address] [facility] 100 [place] [phone] John Sheppard APRN 330 [facility] 100 [place] [address] 07/01/2025 11:00 AM EDT Office Visit [facility] UROLOGY [address]60 [facility] 502 [place] [address] Brennan Lee MD [address] [facility] 502 [place] [address] 07/16/2025 10:30 AM EDT Office Visit [facility] GASTROENTEROLOGY 1720 [facility] 302 [place] [phone] Palak Graham PA-C 1720 [facility] [address] [place] [address] 07/31/2025 10:00 AM EDT Office Visit [facility] PULMONARY & CRITICAL CARE MEDICINE [address] [facility] [address] [place] [address] Maxine Gibson, INDUSTRIAL PROPERTY APPRAISER [address] [place] [address] documented as of this encounter Goals Goal [...] 21 hours and 51 minutes. Total beats: [id number]. Average HR: 83. Min HR: 48. Max HR: 152. Study Findings Patient diary was not submitted. Premature atrial contractions occured rarely. There was no evidence of atrial arrhythmias. Premature ventricular contractions did not appear during monitoring. There were no episodes of ventricular tachycardia. No atrioventricular block noted. Study Impressions A relatively benign monitor study. Tiffany Maier MD CV CARDIAC SERVICES ORDERABLES [...] documented as of this encounter Care Teams Photographer Portrait Relationship Specialty Start Date End Date Johanna Jeffrey MD Mike [address]o [address] [address] PCP - General Internal Medicine 10/20/21 08/20/22 documented as of this encounter
--- OUTSIDE RECORDS SUMMARY | 2024-04-23 19:45 | XMS_ITS | Encounter Summary ---
[facility] Address [address] [place] [address] Care Team Providers Care Supervisor Advertising Dispatch Clerks Name Role Phone Rafael Pal MD, [place] Primary Care Provider [phone] Reason for Referral * Hospital - Outpatient [...] or More Parameters Ijeoma Payne APRN [address] [place] [address] Phone: tel: fax: [facility] [address] [address] Phone: tel: fax: Referral ID Status Reason Start Date Expiration Date Visits Re quested Visits Authorized [id number] Closed 12/19/2023 12/18/2024 1 1 Reason for [...] Polysomnography 4 or More Parameters Ijeoma Payne, PASTING MACHINE OPERATOR [address] [address] Phone: tel: fax: [facility] [address] [address] Phone: tel: fax: Referral ID Status Reason Start Date Expiration Date Visits Re quested Visits Authorized [id number] Closed 12/19/2023 12/18/2024 1 1 Encounter Details Date Type Department Care Team (Late st Contact Info) Description 04/23/2024 7:45 PM EDT Hospital Encounter [facility] [address] [place] [phone] Ijeoma Payne, PASTING MACHINE OPERATOR [address] [place] [address] Dementia, unspecified dementia severity, unspecified dementia type, [...] drink = 0.6 oz pur e alcohol) [facility] Utilities Answer Date Recorded In the past 12 months has [employer], gas, oil, or water [employer] threatened to shut off services in your [...] or training? Not on file Preferred Language Azerbaijani 01/28/2025 PHQ-2 Answer Date Recorded Retired PHQ-9: [...] 7:09 AM EDT Dary Chapin RN * [place] Suicide Severity Rating Scale (Screener/Recent Self-Report) Question Answer Date of Assessment Author 6. Suicidal Behavior (Lifetime) No 7:09 AM EDT Dary Benites RN documented as of this encounter Plan of Treatment Upcoming Encounters Date Type Department Care Team (Late st Contact Info) Description 05/14/2025 1:15 PM EDT Office [facility] UR[facility] [address] [address] Sanam Saunders, PASTING MACHINE OPERATOR [address] [place] [address] 05/23/2025 1:30 PM EDT Hospital Encounter [facility] OUTPATIENT ONCOLOGY CANCER CENTER 1700 [facility] [address] [place] [address] 06/03/2025 10:40 AM EDT Appointment [facility] MINERVA SWIFTYOEL [address] [place] [address] 06/05/2025 10:45 AM EDT Office Visit [facility] RHEUMATOLOGY [address] [facility] [address] [place] [address] John Sheppard APRN 330 [facility] [address] [place] [address] 07/01/2025 11:00 AM EDT Office Visit [facility] UROLOGY 1760 [facility] [address] [place] [address] Brennan Lee MD 1760 [facility] 502 [place] [address] 07/16/2025 10:30 AM EDT Office Visit [facility] GASTROENTEROLOGY 1720 [facility] [address] [place] [address] Palak Graham, PAArnaldoC 1720 [facility] [address] [place] [address] 07/31/2025 10:00 AM EDT Office Visit [facility] PULMONARY & CRITICAL CARE MEDICINE 3000 [facility] [address] [place] [address] Maxine Gibson, PASTING MACHINE OPERATOR [address] [place] [address] documented as of this encounter Goals Goal [...] agree with the interpretation. Braden To MD, [facility] Pulmonary Critical care and Sleep medicine [...] None. 8. Bruxism: None. us Ijeoma Payne APRN SLEEP CENTER ORDERABLES Fin [...] as of this encounter Care Teams Supervisor Advertising Dispatch Clerks Relationship Specialty Start Date End Date Huyen Hall MD [address]40 [place] [address] PCP - General Family Medicine 08/21/22 07/25/24 documented as of this encounter
--- OUTSIDE RECORDS SUMMARY | 2025-03-26 10:10 | XMS_ITS | Encounter Summary ---
Author Organization [facility] Address [address] [place] [address] Care Team Providers Care Customer Service Associate Name Role Phone Reza Panchal MD Primary Care Provider +1- [phone] Reason for Visit * Reason Comments Erythema Encounter Details Date Type Department Care Team (Late st Contact Info) Description 03/26/2025 10:10 AM EDT Office Visit [facility] UROLOGY [address] [place] [address] Brennan Lee MD [address] [address] OAB (overactive bladder) (Primary Dx); Urge incontinence; Lower urinary tract symptoms (LUTS) Social History Tobacco Use Types Packs/Day Years Used Date Smoking Tobacco: Never Passive Smoke Exposure: Past Smokeless Tobacco: Never Tobacco Cessation:Counseling Given: No Comments: smokes, for 45 years Alcohol Use Standard Drinks/Week Comments No 0 (1 standard drink = 0.6 oz pur e alcohol) [facility] Utilities Answer Date Recorded In the past 12 months has [employer] electric, gas, oil, or water company threatened [...] or training? Not on file Preferred Language Welsh 01/28/2025 PHQ-2 Answer Date Recorded Retired PHQ-9: [...] mouth Daily., Disp: 90 tablet, Rfl: 3 rmvbwduk-iinsobujx-cqqjjwnoqiwkmcsxox (POLYDEX) 3.5-61245-0.1 ointment ophthalmic ointment, APPLY SMALL AMOUNT INSIDE [...] and completing patient documentation. Brennan Lee MD [facility] Urology [place] documented in this encounter Plan of Treatment Upcoming Encounters Date Type Department Care Team (Late st Contact Info) Description 05/14/2025 1:15 PM EDT Office Visit [facility] UROLOGY [address] [facility] [address] [place] [address] Sanam Saunders, TIE PRESSER [address] [facility] [address] [place] [address] 05/23/2025 1:30 PM EDT Hospital Encounter [facility] OUTPATIENT ONCOLOGY CANCER CENTER [address] [facility] [address] [place] [address] 06/03/2025 10:40 AM EDT Appointment [facility] [address]A [place] [address] [place] [address] 06/05/2025 10:45 AM EDT Office Visit [facility] RHEUMATOLOGY [address] [place] [address] John Sheppard APRN [address] [facility] [address] [place] [address] 07/01/2025 11:00 AM EDT Office Visit [facility] UROLOGY [address] [facility] [address] [place] [phone] Brennan Lee MD [address] [facility] [address] [place] [address] 07/16/2025 10:30 AM EDT Office Visit [facility] GASTROENTEROLOGY [address] [facility] 302 [place] [address] Palak Graham PA-C [address] [facility] [address] [place] [address] 07/31/2025 10:00 AM EDT Office Visit [facility] PULMONARY & CRITICAL CARE MEDICINE [address] [facility] [address] [place] [address] Maxine Gibson, PARVIZ [address] [place] [id number] documented as of this encounter Goals Goal [...] and Dry Patient Goals No Nathalia Phelan, SRAVANI Note: Follow Up Date - clean and dry skin well Why is this important? Leaking urine (pee) can cause soreness from skin rashes and redness. This is caused by skin being exposed to urine (pee). Notes: Track and Manage My Symptoms Patient Goals No Nathalia Phelan, RN Note: [...] documented as of this encounter Care Teams Customer Service Associate Relationship Specialty Start Date End Date Reza Panchal MD [facility] [place] [address] PCP - General Family Medicine 09/30/24 documented as of this encounter
--- OUTSIDE RECORDS SUMMARY | 2025-03-28 12:35 | XMS_ITS | Encounter Summary ---
[facility] Address [address] [place] [address] Care Team Providers Care Relocation Specialist Name Role Phone Reza Panchal MD Primary Care Provider +1- [phone] Reason for Visit * Episode Based Medications (Routine) - Closed Specialty Diagnoses / Procedures Referred By Tia holman Referred To Contact Diagnoses Rheumatoid arthritis involving multiple sites with positive rheumatoid factor Procedures NE GOLIMUMAB FOR IV USE 1MG Patrice Santana DO [address] [place] [address] Phone: tel: fax: [facility] [address] [address] Phone: tel: fax: Referral ID Status Reason Start Date Expiration Date Visits Re quested Visits Authorized [id number] Closed 05/06/2024 05/06/2025 1 1 Encounter Details Date Type Department Care Team (Latest Contact Info) Description 03/28/2025 12:35 PM EDT - 03/28/2025 11:59 PM EDT Hospital Encounter [facility] [address] [facility] [address] [place] [address] Patrice Santana DO [address] [place] [address] Rheumatoid arthritis involving multiple sites with positive rheumatoid factor (Primary Dx) Discharge Disposition: Home or Self Care Social History Tobacco Use Types Packs/Day Years Used Date Smoking Tobacco: Never Passive Smoke Exposure: Past Smokeless Tobacco: Never Comments: smokes, for 45 years Alcohol Use Standard Drinks/Week Comments No 0 (1 standard drink = 0.6 oz pur e alcohol) [facility] Utilities Answer Date Recorded In the past 12 months has th e [employer], gas, oil, or water [employer] threatened to shut off services in your [...] or training? Not on file Preferred Language Yakut 01/28/2025 PHQ-2 Answer Date Recorded Retired PHQ-9: [...] Sign Reading Time Taken Comments Blood Pressure 139/62 03/28/2025 1:27 PM EDT Pulse 76 03/28/2025 1:27 PM EDT Temperature 36.2 C (97.2 F) 03/28/2025 1:27 PM EDT Respiratory Rate 16 03/28/2025 1:27 PM EDT Oxygen Saturation - - Inhaled Oxygen Concentration - - Weight 86.2 kg (190 lb) 03/28/2025 1:27 PM EDT Height 152.4 cm (5') 03/28/2025 1:27 PM EDT Body Mass Index 37.11 03/28/2025 1:27 PM EDT documented in this encounter Medications at Time of Discharge acetaminophen (TYLENOL) 500 MG tablet Take 1 tablet by mouth Every 6 (Six) Hours As Needed for Mild Pain. alendronate (FOSAMAX) 70 MG tablet Take 1 tablet by mouth Every 7 (Seven) Days. 4 tablet 6 01/30/2025 amLODIPine (NORVASC) 2.5 MG tabletIndications:P rimary hypertension Take 1 tablet by mouth Daily. 30 tablet 2 06/07/2024 Aspirin Low Dose 81 MG EC tablet TAKE 1 TABLET BY MOUTH DAILY 100 tablet 2 01/26/2024 BD Pen Needle Reyna 2nd Gen 32G X 4 MM misc USE 1 NEEDLE THREE TIMES DAILY DIRECTED 08/01/2022 chlorthalidone (HYGROTON) 25 MG tablet 03/25/2025 Cholecalciferol 25 MCG (1000 UT) tablet Take 2 tablets by mouth Daily. Diclofenac Sodium (VOLTAREN) 1 % gel gel Apply topically to the appropriate area as directed 4 (Four) Times a Day. Apply 4 grams topically to the affected area four times daily 300 g 4 01/30/2025 fluticasone (FLONASE) 50 MCG/ACT nasal sprayIndications:Ch ronic cough Administer 2 sprays into the nostril(s) as directed by provider Daily. 33.3 g 3 01/28/2025 gabapentin (NEURONTIN) 100 MG capsuleIndications: Post herpetic neuralgia,Chronic bilateral low back pain with bilateral sciatica,Acute right-sided low back pain, unspecified whether sciatica present TAKE 2 CAPSULES BY MOUTH THREE TIMES DAILY 180 capsule 1 05/27/2024 glucose blood test stripIndications:Ty pe 2 diabetes mellitus with retinopathy, without long-term current use of insulin, macular edema presence unspecified, unspecified laterality, unspecified retinopathy severity Use to check blood sugar daily. E11.319 50 each 12 05/13/2024 glucose monitor monitoring kitIndications:Type 2 diabetes mellitus with retinopathy, without long-term current use of insulin, macular edema presence unspecified, unspecified laterality, unspecified retinopathy severity Use to check blood sugar daily. E11.319 1 each 05/13/2024 Golimumab (SIMPONI ARIA IV) Infuse into a venous catheter Every 8 (Eight) Weeks. hydrOXYzine (ATARAX) 10 MG tablet TAKE 1 TABLET BY MOUTH FOUR TIMES DAILY NEEDED FOR NERVES 05/11/2022 Jardiance 10 MG tablet tabletIndications:T ype 2 diabetes mellitus with retinopathy, without long-term current use of insulin, macular edema presence unspecified, unspecified laterality, unspecified retinopathy severity TAKE 1 TABLET BY MOUTH DAILY 30 tablet 2 07/08/2024 Lancets 30G miscIndications:Typ e 2 diabetes mellitus with retinopathy, without long-term current use of insulin, macular edema presence unspecified, unspecified laterality, unspecified retinopathy severity Use to check blood sugar daily. ED 11.319 100 each 4 05/13/2024 levothyroxine (SYNTHROID, LEVOTHROID) 75 MCG tabletIndications:A cquired hypothyroidism Take 1 tablet by mouth Daily. 30 tablet 5 06/03/2024 Magnesium 250 MG tablet Take 2 tablets by mouth Daily. meloxicam (MOBIC) 15 MG tablet Take 1 tablet by mouth Daily As Needed for Mild Pain. 30 tablet 5 01/30/2025 memantine (Namenda) 10 MG tabletIndications:M ild cognitive impairment Take 1 tablet by mouth 2 (Two) Times a Day. 60 tablet 3 05/10/2024 metoprolol succinate XL (TOPROL-XL) 50 MG 24 hr tablet Take 1 tablet by mouth Every 12 (Twelve) Hours. 03/09/2024 mirtazapine (Remeron) 15 MG tablet Take 1 tablet by mouth Every Night. 90 tablet 1 03/08/2024 montelukast (SINGULAIR) 10 MG tabletIndications:S easonal allergic rhinitis due to pollen Take 1 tablet by mouth Daily. 90 tablet 3 10/04/2023 nitroglycerin (NITROSTAT) 0.[address] 1 tablet under the tongue Every 5 (Five) Minutes As Needed for Chest Pain. Take no more than 3 doses in 15 minutes. 25 tablet 5 01/03/2024 ondansetron (Zofran) 4 MG tablet Take 1 tablet by mouth Every 8 (Eight) Hours As Needed for Nausea or Vomiting. 30 tablet 05/02/2024 pantoprazole (PROTONIX) 40 MG EC tablet Take 1 tablet by mouth 2 (Two) Times a Day. 180 tablet 3 07/01/2024 potassium chloride (KLOR-CON M10) 10 MEQ CR tablet Take 1 tablet by mouth Daily. 03/03/2025 prasugrel (EFFIENT) 10 MG tablet Take 1 tablet by mouth Daily. sucralfate (CARAFATE) 1 g tablet Take 1 tablet by mouth 4 (Four) Times a Day. 360 tablet 05/02/2024 vitamin B-12 (CYANOCOBALAMIN) 500 MCG tablet Take 1 tablet by mouth Daily. vitamin C (ASCORBIC ACID) 250 MG tablet Take 2 tablets by mouth Daily. sulfamethoxazole-tr imethoprim (Bactrim DS) 800-160 MG per tabletIndications:Minal ownestor urinary tract symptoms (LUTS) Take 1 tablet by mouth 2 (Two) Times a Day for 7 days. 14 tablet 03/27/2025 04/03/20 25 albuterol sulfate HFA 108 (90 Base) MCG/ACT inhalerIndications: Chronic cough Inhale 2 puffs Every 4 (Four) Hours As Needed for Wheezing or Shortness of Air. 18 g 6 01/28/2025 04/29/20 25 atorvastatin (LIPITOR) 20 MG tablet TAKE 1 TABLET BY MOUTH DAILY 90 tablet 2 02/07/2024 04/29/20 25 Fluticasone-Salmete rol (ADVAIR/WIXELA) 100-50 MCG/ACT DISKUSIndications:C hronic cough Inhale 1 puff 2 (Two) Times a Day. 180 each 3 01/28/2025 04/29/20 25 neomycin-polymyxin- dexamethamethasone (POLYDEX) 3.5-18550-6.1 ointment ophthalmic ointment APPLY SMALL AMOUNT INSIDE RIGHT EYE TWICE DAILY UNTIL NEXT APPT 10/28/2024 04/29/20 25 potassium chloride 10 MEQ CR tablet Take 1 tablet by mouth Daily With Breakfast. 04/29/20 25 documented as of this encounter Plan of Treatment Upcoming Encounters Date Type Department Care Team (Late st Contact Info) Description 05/14/2025 1:15 PM EDT Office Visit [facility] UR[facility]Y [address] [facility] [address] [place] [address] Sanam Saunders, MASTER OCEAN YACHT [address] [facility] [address] [place] [address] 05/23/2025 1:30 PM EDT Hospital Encounter [facility] [address] [facility] [address] [place] [address] 06/03/2025 10:40 AM EDT Appointment [facility] MINERVA DIALLO [address] [place] [address] 06/05/2025 10:45 AM EDT Office Visit [facility] RHEUMATOLOGY [address] [place] [phone] John Sheppard APRN 330 [facility] [address] [place] [address] 07/01/2025 11:00 AM EDT Office Visit [facility] UROLOGY [address] [facility] [address] [place] [address] Brennan Lee MD [address] [facility] [address] [place] [address] 07/16/2025 10:30 AM EDT Office Visit [facility] GASTROENTEROLOGY [address] [facility] [address] [place] [phone] Palak Graham PA-C [address] [facility] [address] [place] [address] 07/31/2025 10:00 AM EDT Office Visit [facility] PULMONARY & CRITICAL CARE MEDICINE [address] [facility] [address] [place] [address] Maxine Gibson, MASTER OCEAN YACHT [address] [place] [address] documented as of this encounter Goals Goal [...] as of this encounter Visit Diagnoses Diagnosis Rheumatoid arthritis involving multiple sites with positive rheumatoid factor- Primary documented in this encounter Administered Medications Inactive Administered Medications - up to 3 most recent administrations Medication Order MAR Action Action Date Dose Rate Site acetaminophen (TYLENOL) tablet 650 mg 650 mg, Oral, Once, On Mon03/28/25 at 1335, For 1 dose, Based on patient request - if ordered for moderate or severe pain, provider allows for administration of a medication prescribed for a lower pain scale. Do not exceed 4 grams of acetaminophen in a 24 hr period. Max dose of 2gm for AST/ALT greater than 120 units/L. If given for pain, use the following pain scale: Mild Pain = Pain Score of 1-3, CPOT 1-2 Moderate Pain = Pain Score of 4-6, CPOT 3-4 Severe Pain = Pain Score of 7-10, CPOT 5-8Indications:Rheumatoid arthritis involving multiple sites with positive rheumatoid factor Given 03/28/2025 1:40 PM EDT 650 mg cetirizine (zyrTEC) tablet 10 mg 10 mg, Oral, Once, On Mon03/28/25 at 1335, For 1 doseIndications:Rheumatoid arthritis involving multiple sites with positive rheumatoid factor Given 03/28/2025 1:40 PM EDT 10 mg golimumab (SIMPONI ARIA) 172.5 mg in sodium chloride 0.9 % 100 mL infusion 172.5 mg, Intravenous, at 200 mL/hr, Administer over 30 Minutes, Once, On Mon03/28/25 at 1405, For 1 dose, Infuse using a 0.22 micron filter.Indications:Rheumatoid arthritis involving multiple sites with positive rheumatoid factor New Bag 03/28/2025 2:06 PM EDT 172.5 mg 200 mL/hr sodium chloride 0.9 % infusion 20 mL/hr, Intravenous, Once, On Mon03/28/25 at 1335, For 1 doseIndications:Rheumatoid arthritis involving multiple sites with positive rheumatoid factor New Bag 03/28/2025 2:06 PM EDT 20 mL/hr 20 mL/hr documented in this encounter Additional Health Concerns Infection Onset Date Last Indicated Resolved Time Hepatitis A 04/12/2024 04/12/2024 Assessment Noted Time PHQ-2 Depression Total Score: 1 05/20/20 24 11:00 AM EDT documented as of this encounter Care Teams Relocation Specialist Relationship Specialty Start Date End Date Reza Panchal MD [facility] [place] [address] PCP - General Family Medicine 09/30/24 documented as of this encounter
--- OUTSIDE RECORDS SUMMARY | 2025-04-29 09:30 | XMS_ITS | Encounter Summary ---
Author Organization [facility] Address [address] [place] [address] Care Team Providers Care System Safety Engineer Name Role Phone Reza Panchal MD Primary Care Provider +1- [phone] Reason for Visit * Reason Comments Sleep Apnea Follow up Encounter Details Date Type Department Care Team (Late st Contact Info) Description 04/29/2025 9:30 AM EDT Office Visit [facility] PULMONARY & CRITICAL CARE MEDICINE 3000 [facility] 240 [place] [address] Maxine Gibson, JEWELRY CONSULTANT [address] [place] [address] Seasonal allergic rhinitis due to pollen (Primary [...] drink = 0.6 oz pur e alcohol) [facility] Utilities Answer Date Recorded In the past 12 months has [employer], gas, oil, or water [employer] threatened to shut off services in your [...] or training? Not on file Preferred Language Sudanese 01/28/2025 PHQ-2 Answer Date Recorded Retired PHQ-9: [...] Everywhere. * GERD in Adults: Diet Changes (Sudanese) documented in this encounter Progress Notes * Maxine Gibson APRN - 04/29/2025 9:30 AM EDT [facility] Pulmonary Follow up CHIEF COMPLAINT fatigue HISTORY OF PRESENT ILLNESS Madison Castellanos is a 69 y.o.female here today for follow-up. She was last seen in the office by me in January. She was recently discharged from [facility] yesterday for aspiration pneumonia and sepsis. The [...] Description 05/14/2025 1:15 PM EDT Office Visit [facility] UROLOGY 3000 [facility] [address] [place] [address] Sanam Suanders, PARVIZ [address] [place] [id number] 05/23/2025 1:30 PM EDT Hospital Encounter [facility] OUTPATIENT ONCOLOGY CANCER CENTER 1700 [facility] [address] [place] [address] 06/03/2025 10:40 AM EDT Appointment [facility] DEXA YOEL [address] [place] [address] 06/05/2025 10:45 AM EDT Office Visit [facility] RHEUMATOLOGY 330 [facility] 100 [place] [address] John Sheppard APRN 330 [facility] 100 [place] [address] 07/01/2025 11:00 AM EDT Office [facility] UROLOGY 1760 [facility] [address] [place] [address] Brennan Lee MD 1760 [facility] 502 [place] [address] 07/16/2025 10:30 AM EDT Office Visit [facility] GASTROENTEROLOGY 1720 [facility] [address] [place] [address] Palak Graham, PA-C 1720 [facility] [address] [place] [address] 07/31/2025 10:00 AM EDT Office Visit [facility] PULMONARY & CRITICAL CARE MEDICINE 3000 [facility] [address] [place] [address] Maxine Gibson, JEWELRY CONSULTANT [address] [place] [address] documented as of this encounter Goals Goal [...] documented as of this encounter Care Teams System Safety Engineer Relationship Specialty Start Date End Date Reza Panchal MD [address] [place] [address] PCP - General Family Medicine 09/30/24 documented as of this encounter
--- OUTSIDE RECORDS SUMMARY | 2025-05-06 10:30 | XMS_ITS | Encounter Summary ---
[facility] Address [address] [place] [address] Care Team Providers Care County Court Judge Name Role Phone Reza Panchal MD Primary Care Provider +1- [phone] Reason for Referral * Diagnostic Medical (Routine) - Authorized Specialty Diagnoses / Procedures Referred By Tia holman Referred To Contact Gastroenterology Diagnoses Esophageal dysphagia Gastroesophageal reflux disease, unspecified whether esophagitis present Palak Graham PA-C [facility] [address] [place] [address] Phone: tel: fax: [facility] GASTROENTEROLOGY [address] [place] [phone] Phone: tel: fax: Referral ID Status Reason Start Date Expiration Date Visits Requested Visits Authorized [id number] Authorized Specialty Services Required 05/06/2025 08/05/2026 1 1 Reason for Visit * Reason Comments Gastroesophageal reflux disease, esophag itis Encounter Details Date Type Department Care Team ([facility] st Contact Info) Description 05/06/2025 10:30 AM EDT Office Visit [facility] GASTROENTEROLOGY [address] [place] [address] [address] [place] [address] Palak Graham PA-C [address] [place] [phone] Esophageal dysphagia (Primary Dx); Gastroesophageal reflux disease, unspecified whether esophagitis present; History of Jacqui fundoplication; History of aspiration pneumonia Social History Tobacco Use Types Packs/Day Years Used Date Smoking Tobacco: Never Passive Smoke Exposure: Past Smokeless Tobacco: Never Comments: smokes, for 45 years Alcohol Use Standard Drinks/Week Comments No 0 (1 standard drink = 0.6 oz pur e alcohol) [facility] Utilities Answer Date Recorded In the past 12 months has th e [employer], gas, oil, or water [employer] threatened to shut off services in your [...] or training? Not on file Preferred Language Peruvian 01/28/2025 PHQ-2 Answer Date Recorded Retired PHQ-9: [...] her granddaughter and 2 great granddaughters. Patient reportsshkarl was discharged from [facility] on 04/28/2025 for sepsis secondary to [...] to help with her reflux. Previously she christaino tried Omeprazole and Dexilant without improvement. She [...] details and recommendations. Colonoscopy 07/2023 Dr. 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 Palak Graham PA-C [facility] [place] documented in this encounter Plan of Treatment Upcoming Encounters Date Type Department Care Team (Late st Contact Info) Description 05/14/2025 1:15 PM EDT Office Visit [facility] UROLOGY [address] [facility] [address] [place] [phone] Sanam Saundres, MEDICAL PATHOLOGIST [address] [facility] [address] [place], [place] [phone] 05/23/2025 1:30 PM EDT Hospital Encounter [facility] OUTPATIENT ONCOLOGY [facility]ER CENTER 1700 [facility] [address] [place] [address] 06/03/2025 10:40 AM EDT Appointment [facility] [place] [address] [place] [phone] 06/05/2025 10:45 AM EDT Office Visit [facility] RHEUMATOLOGY 330 [facility] 100 [place] [phone] John Sheppard APRN 330 [facility] 100 [place] [address] 07/01/2025 11:00 AM EDT Office Visit [facility] UROLOGY 1760 [facility] 502 [place] [address] Brennan Lee MD [address] [facility] 502 [place] [address] 07/16/2025 10:30 AM EDT Office Visit [facility] GASTROENTEROLOGY 1720 [facility] 302 [place] [phone] Palak Graham PA-C 1720 [facility] [address] [place] [address] 07/31/2025 10:00 AM EDT Office Visit [facility] PULMONARY & CRITICAL CARE MEDICINE [address] [facility] [address] [place] [address] Maxine Gibson, MEDICAL PATHOLOGIST [address] [place] [address] Scheduled Referrals Name Type Priority Associated Diagnoses [...] - 4.200 uIU/mL 05/06/2025 7:29 PM EDT [facility] Blood Venipuncture / Unknown 05/06/2025 12:01 PM EDT 05/06/2025 12:01 PM EDT Palak Graham PA-C LAB BLOOD ORDERABLES Final Result [facility]
[address] [place] [address], * (ABNORMAL) Comprehensive Metabolic Panel (05/06/2025 12:01 PM EDT) Pathologist [facility] Glucose 150(H) 65 - 99 mg/dL 05/06/2025 7:23 PM EDT [facility] BUN 17.0 8.0 - 23.0 mg/dL 05/06/2025 7:23 PM EDT [facility] Creatinine 0.85 0.57 - 1.00 mg/dL 05/06/2025 7:23 PM EDT [facility] Sodium 141 136 - 145 mmol/L 05/06/2025 7:23 PM EDT [facility] Potassium 4.0 3.5 - 5.2 mmol/L 05/06/2025 7:23 PM EDT [facility] Chloride 101 98 - 107 mmol/L 05/06/2025 7:23 PM EDT [facility] CO2 27.3 22.0 - 29.0 mmol/L 05/06/2025 7:23 PM EDT [facility] Calcium 9.4 8.6 - 10.5 mg/dL 05/06/2025 7:23 PM EDT [facility] Total Protein 7.7 6.0 - 8.5 g/dL 05/06/2025 7:23 PM EDT [facility] Albumin 4.0 3.5 - 5.2 g/dL 05/06/2025 7:23 PM EDT [facility] ALT (SGPT) 21 1 - 33 U/L 05/06/2025 7:23 PM EDT [facility] AST (SGOT) 18 1 - 32 U/L 05/06/2025 7:23 PM EDT [facility] Alkaline Phosphatase 98 39 - 117 U/L 05/06/2025 7:23 PM EDT [facility] Total Bilirubin 0.3 0.0 - 1.2 mg/dL 05/06/2025 7:23 PM EDT [facility] Globulin 3.7 gm/dL 05/06/2025 7:23 PM T [facility] A/G Ratio 1.1 g/dL 05/06/2025 7:23 PM T [facility] BUN/Creatinine Ratio 20.0 7.0 - 25.0 05/06/2025 7:23 PM T [facility] Anion Gap 12.7 5.0 - 15.0 mmol/L 05/06/2025 7:23 PM [facility] eGFR 75.2 >60.0 mL/min/1.7 3 05/06/2025 7:23 PM [facility] Blood Venipuncture / Unknown 05/06/2025 12:01 PM EDT 05/06/2025 12:01 PM EDT [facility] - 05/06/2025 7:23 PM EDT [...] Graham PA-C LAB BLOOD ORDERABLES Final Result [facility]
[address] [place] [address], documented in this encounter Visit Diagnoses Diagnosis [...] documented as of this encounter Care Teams County Court Judge Relationship Specialty Start Date End Date Reza Panchal MD [facility] [place] [address] PCP - General Family Medicine 09/30/24 documented as of this encounter
--- OUTSIDE RECORDS SUMMARY | 2025-05-06 12:15 | XMS_ITS | Encounter Summary ---
[facility] Address [address] [place] [address] Care Team Providers Care Employee Benefits Insurance Agent Name Role Phone Reza Panchal MD Primary Care Provider +1- [phone] Encounter Details Date Type Department Care Team (Late st Contact Info) Description 05/06/2025 12:15 PM EDT Lab [facility] AT [address] [place] [address] Esophageal dysphagia; Gastroesophageal reflux disease, unspecified whether esophagitis present Social History Tobacco Use Types Packs/Day Years Used Date Smoking Tobacco: Never Passive Smoke Exposure: Past Smokeless Tobacco: Never Comments: smokes, for 45 years Alcohol Use Standard Drinks/Week Comments No 0 (1 standard drink = 0.6 oz pur e alcohol) [facility] Utilities Answer Date Recorded In the past 12 months has [employer] gas, oil, or water [employer] threatened to shut off services in your [...] or training? Not on file Preferred Language Luxembourgish 01/28/2025 PHQ-2 Answer Date Recorded Retired PHQ-9: [...] Visit [facility] UROLOGY 3000 [facility] [address] [place] [address] Sanam Saunders, STOCK BROKER 1760 [facility] [address] [place] [address] 05/23/2025 1:30 PM EDT Hospital Encounter [facility] OUTPATIENT [facility]CER CENTER 1700 [facility] 1100 [place] [address] 06/03/2025 10:40 AM EDT Appointment [facility] DI[facility]O [address] [place] [address] 06/05/2025 10:45 AM EDT Office Visit [facility] RHEUMATOLOGY 330 [facility] 100 [place] [address] John Sheppard APRN 330 [facility] 100 [place] [address] 07/01/2025 11:00 AM EDT Office Visit [facility] UROLOGY 1760 [facility] 502 [place] [address] Brennan Lee MD 1760 [facility] 502 [place] [address] 07/16/2025 10:30 AM EDT Office Visit [facility] GASTROENTEROLOGY 1720 [facility] 302 [place] [address] Palak Graham PAArnaldoC 1720 [facility] [address] [place] [address] 07/31/2025 10:00 AM EDT Office Visit [facility] PULMONARY & CRITICAL CARE MEDICINE [address] [facility] [address] [place] [address] Maxine Gibson, STOCK BROKER [address] [place] [address] documented as of this encounter Goals Goal [...] - 4.200 uIU/mL 05/06/2025 7:29 PM EDT [facility] Blood Venipuncture / Unknown 05/06/2025 12:01 PM EDT 05/06/2025 12:01 PM EDT Palak Graham PA-C LAB BLOOD ORDERABLES Final Result [facility]
[address] [place] [address], * (ABNORMAL) CBC Auto Differential (05/06/2025 12:01 PM EDT) Pathologist [facility] WBC 6.88 3.40 - 10.80 10*3/mm3 05/06/2025 6:48 PM EDT [facility] RBC 4.42 3.77 - 5.28 10*6/mm3 05/06/2025 6:48 PM EDT [facility] Hemoglobin 13.5 12.0 - 15.9 g/dL 05/06/2025 6:48 PM EDT [facility] Hematocrit 41.0 34.0 - 46.6 % 05/06/2025 6:48 PM EDT [facility] MCV 92.8 79.0 - 97.0 fL 05/06/2025 6:48 PM EDT [facility] MCH 30.5 26.6 - 33.0 pg 05/06/2025 6:48 PM EDT [facility] MCHC 32.9 31.5 - 35.7 g/dL 05/06/2025 6:48 PM EDT [facility] RDW 13.1 12.3 - 15.4 % 05/06/2025 6:48 PM EDT [facility] RDW-SD 44.8 37.0 - 54.0 fl 05/06/2025 6:48 PM EDT [facility] MPV 10.0 6.0 - 12.0 fL 05/06/2025 6:48 PM EDT [facility] Platelets 314 140 - 450 10*3/mm3 05/06/2025 6:48 PM EDT [facility] Neutrophil % 41.1(L) 42.7 - 76.0 % 05/06/2025 6:48 PM EDT [facility] Lymphocyte % 37.1 19.6 - 45.3 % 05/06/2025 6:48 PM EDT [facility] Monocyte % 14.8(H) 5.0 - 12.0 % 05/06/2025 6:48 PM EDT [facility] Eosinophil % 5.4 0.3 - 6.2 % 05/06/2025 6:48 PM EDT [facility] Basophil % 0.7 0.0 - 1.5 % 05/06/2025 6:48 PM EDT [facility] Immature Grans % 0.9(H) 0.0 - 0.5 % 05/06/2025 6:48 PM EDT [facility] Neutrophils, Absolute 2.83 1.70 - 7.00 10*3/mm3 05/06/2025 6:48 PM EDT [facility] Lymphocytes, Absolute 2.55 0.70 - 3.10 10*3/mm3 05/06/2025 6:48 PM EDT [facility] Monocytes, Absolute 1.02(H) 0.10 - 0.90 10*3/mm3 05/06/2025 6:48 PM EDT [facility] Eosinophils, Absolute 0.37 0.00 - 0.40 10*3/mm3 05/06/2025 6:48 PM EDT [facility] Basophils, Absolute 0.05 0.00 - 0.20 10*3/mm3 05/06/2025 6:48 PM EDT [facility] Immature Grans, Absolute 0.06(H) 0.00 - 0.05 10*3/mm3 05/06/2025 6:48 PM EDT [facility] nRBC 0.0 0.0 - 0.2 /100 WBC 05/06/2025 6:48 PM EDT [facility] Blood Venipuncture / Unknown 05/06/2025 12:01 PM EDT 05/06/2025 12:01 PM EDT us Palak Graham PA-C LAB BLOOD ORDERABLES Final Result [facility]
[address] [place] [address], * (ABNORMAL) Comprehensive Metabolic Panel (05/06/2025 12:01 PM EDT) Glucose 150(H) 65 - 99 mg/dL 05/06/2025 7:23 PM EDT [facility] BUN 17.0 8.0 - 23.0 mg/dL 05/06/2025 7:23 PM EDT [facility] Creatinine 0.85 0.57 - 1.00 mg/dL 05/06/2025 7:23 PM EDT [facility] Sodium 141 136 - 145 mmol/L 05/06/2025 7:23 PM EDT [facility] Potassium 4.0 3.5 - 5.2 mmol/L 05/06/2025 7:23 PM EDT [facility] Chloride 101 98 - 107 mmol/L 05/06/2025 7:23 PM [facility] CO2 27.3 22.0 - 29.0 mmol/L 05/06/2025 7:23 PM [facility] Calcium 9.4 8.6 - 10.5 mg/dL 05/06/2025 7:23 PM [facility] Total Protein 7.7 6.0 - 8.5 g/dL 05/06/2025 7:23 PM [facility] Albumin 4.0 3.5 - 5.2 g/dL 05/06/2025 7:23 PM [facility] ALT (SGPT) 21 1 - 33 U/L 05/06/2025 7:23 PM [facility] AST (SGOT) 18 1 - 32 U/L 05/06/2025 7:23 PM [facility] Alkaline Phosphatase 98 39 - 117 U/L 05/06/2025 7:23 PM [facility] Total Bilirubin 0.3 0.0 - 1.2 mg/dL 05/06/2025 7:23 PM [facility] Globulin 3.7 gm/dL 05/06/2025 7:23 PM [facility] A/G Ratio 1.1 g/dL 05/06/2025 7:23 PM [facility] BUN/Creatinine Ratio 20.0 7.0 - 25.0 05/06/2025 7:23 PM [facility] Anion Gap 12.7 5.0 - 15.0 mmol/L 05/06/2025 7:23 PM [facility] eGFR 75.2 >60.0 mL/min/1.7 3 05/06/2025 7:23 PM [facility] Blood Venipuncture / Unknown 05/06/2025 12:01 PM EDT 05/06/2025 12:01 PM [facility] - 05/06/2025 7:23 PM [...] Graham PA-C LAB BLOOD ORDERABLES Final Result [facility]
[address] [place] [address], documented in this encounter Visit Diagnoses Diagnosis Esophageal dysphagia Dysphagia, pharyngoesophageal phase Gastroesophageal reflux disease, unspecified whether esophagitis present documented in this encounter Additional Health Concerns Infection Onset Date Last Indicated Resolved Time Hepatitis A 04/12/2024 04/12/2024 Assessment Noted Time PHQ-2 Depression Total Score: 1 05/20/20 24 11:00 AM EDT documented as of this encounter Care Teams Employee Benefits Insurance Agent Relationship Specialty Start Date End Date Reza Panchal MD [address] [place] [address] PCP - General Family Medicine 09/30/24 documented as of this encounter
--- OUTSIDE RECORDS SUMMARY | 2025-05-12 12:02 | XMS_ITS | Clinical Summary ---
Author Organization [facility] Address [address] [facility] [address] [place] [address] Phone Care Team Providers Care Singe Machine Operator Name Role Phone Unavailable Unavailable Conditions or Problems No information available. Medications No information available. Medications Administered No information available. Allergies, Adverse Reactions, Alerts No information available. Results No information available. Plan of Care No information available. Procedures No information available. Vital Signs No information available. Immunizations No information available. Advance Directives No information available.
--- OUTSIDE RECORDS SUMMARY | 2025-05-12 12:02 | XMS_ITS | Encounter Summary ---
Author Organization [facility] Address [address] [place] [address] Care Team Providers Care Framing Inspector Name Role Phone Reza Panchal MD Primary Care Provider +1- [phone] Encounter Details Date Type Department Care Team (Latest Contact Info) Description 03/26/2025 Travel Social History Tobacco Use Types Packs/Day Years Used Date Smoking Tobacco: Never Passive Smoke Exposure: Past Smokeless Tobacco: Never Comments: smokes, for 45 years Alcohol Use Standard Drinks/Week Comments No 0 (1 standard drink = 0.6 oz pur e alcohol) [facility] Utilities Answer Date Recorded In the past 12 months has [employer] electric, gas, oil, or water company threatened [...] Not on file Preferred Language Citizen Of [place] 01/28/2025 PHQ-2 Answer Date Recorded Retired PHQ-9: [...] Description 05/14/2025 1:15 PM EDT Office Visit [facility] UROLOGY 3000 [facility] 340 [place] [phone] Sanam Saunders, MARKETING MANAGER 1760 [facility] [address] [place] [address] 05/23/2025 1:30 PM EDT Hospital Encounter [facility] 1700 [facility] 1100 [place] [address] 06/03/2025 10:40 AM EDT Appointment [facility] [address] [place] [phone] 06/05/2025 10:45 AM EDT Office Visit [facility] RHEUMATOLOGY [address] [facility] 100 [place] [phone] John Sheppard APRN 330 [facility] 100 [place] [address] 07/01/2025 11:00 AM EDT Office Visit [facility] UROLOGY 1760 [facility] 502 [place] [address] Brennan Lee MD 1760 [facility] 502 [place] [address] 07/16/2025 10:30 AM EDT Office Visit [facility] GASTROENTEROLOGY 1720 [facility] 302 [place] [phone] Palak Graham PA-C 1720 [facility] [address] [place] [address] 07/31/2025 10:00 AM EDT Office Visit [facility] PULMONARY & CRITICAL CARE MEDICINE 3000 [facility] 240 [place] [address] Maxine Gibson, MARKETING MANAGER [address] [place] [address] documented as of this encounter Goals Goal [...] documented as of this encounter Care Teams Framing Inspector Relationship Specialty Start Date End Date Reza Panchal MD [facility], [id number] [place] [address] PCP - General Family Medicine 09/30/24 documented as of this encounter
--- OUTSIDE RECORDS SUMMARY | 2025-05-12 12:02 | XMS_ITS | Encounter Summary ---
[facility] Address [address] [place] [address] Care Team Providers Care Ship Rigger Name Role Phone Reza Panchal MD Primary Care Provider +1- [phone] Reason for Visit * Reason Onset Date Comments DR SANTILLAN - CLINICAL 05/08/2025 Encounter Details Date Type Department Care Team (Late st Contact Info) Description 05/08/2025 Telephone [facility] UROLOGY [address] [place] [address] Brennan Santillan MD [address] [place] [address] DR SANTILLAN - CLINICAL Social History Tobacco Use Types Packs/Day Years Used Date Smoking Tobacco: Never Passive Smoke Exposure: Past Smokeless Tobacco: Never Comments: smokes, for 45 years Alcohol Use Standard Drinks/Week Comments No 0 (1 standard drink = 0.6 oz pur e alcohol) [facility] Utilities Answer Date Recorded In the past 12 months has [employer] electric, gas, oil, or water company threatened [...] or training? Not on file Preferred Language Mohawk 01/28/2025 PHQ-2 Answer Date Recorded Retired PHQ-9: Brief Depression Severity Measure Score 7 05/20/2024 Comments No Sex and Gender Information Value Date Recorded Sex Assigned at Female 01/09/2025 11:01 AM EDT Legal Sex Female 12:37 PM EDT Gender Identity Not on file Sexual Orientation Not on file documented as of this encounter Miscellaneous Notes * Telephone Encounter - Greta Mc - 05/08/2025 11:13 AM EDT Provider: DR SANTILLAN Caller: DANIEL THRASHER Relationship to Patient: GRANDCHILD Reason for Call: PATIENT RECENTLY IN HOSPITAL AT [facility] WITH SEPSIS DUE TO UTI. PATIENT REQUESTING A FU WITH DR SANTILLAN. UTI URINARY SYMPTOMS STARTED AGAIN YESTERDAY. PLEASE ADVISE ON SCHEDULING. REACH OUT TO DANIEL [phone] When was the patient last seen: 03-26-25 HUB AGENT UNABLE TO WARM TRANSFER. PLEASE REACH OUT ANA CRISTINA documented in this encounter Plan of Treatment Upcoming Encounters Date Type Department Care Team (Late st Contact Info) Description 05/14/2025 1:15 PM EDT Office Visit [facility] UROLOGY 3000 [facility] 340 [place] [phone] Sanam Saunders, CONDUIT INSTALLER 1760 [facility] [address] [place] [address] 05/23/2025 1:30 PM EDT Hospital Encounter [facility] 1700 [facility] 1100 [place] [address] 06/03/2025 10:40 AM EDT Appointment [facility] DEXA YOEL [address] [place] [phone] 06/05/2025 10:45 AM EDT Office Visit [facility] RHEUMATOLOGY 330 [facility] 100 [place] [phone] John Sheppard, CONDUIT INSTALLER [address] [facility] [address] [address] [place] [address] 07/01/2025 11:00 AM EDT Office Visit [facility] UROLOGY 17[address] [facility] [address] [place] [address] Brennan Santillan MD [address]60 [facility] [address] [place] [address] 07/16/2025 10:30 AM EDT Office Visit [facility] GASTROENTEROLOGY 1720 [facility] [address] [place] [phone] Palak Graham PA-C 1720 [facility] [address] [place] [address] 07/31/2025 10:00 AM EDT Office Visit [facility] PULMONARY & CRITICAL CARE MEDICINE 3000 [facility] [address] [place] [address] Maxine Gibson, CONDUIT INSTALLER [address] [place] [address] documented as of this encounter Goals Goal [...] documented as of this encounter Care Teams Ship Rigger Relationship Specialty Start Date End Date Reza Panchal MD [address] [place] [address] PCP - General Family Medicine 09/30/24 documented as of this encounter
--- OUTSIDE RECORDS SUMMARY | 2025-05-12 12:02 | XMS_ITS | Encounter Summary ---
[facility] Address [address] [place] [address] Care Team Providers Care Tool Shaper Setup Operator Name Role Phone Reza Panchal MD Primary Care Provider +1- [phone] Reason for Visit * Reason Comments Med Refill Encounter Details Date Type Department Care Team (Late st Contact Info) Description 12/19/2021 Refill [facility] PRIMARY [facility]ARE [address] [address] Dia Underwood MD [address] [facility] 100 [place] [address] Social History Tobacco Use Types [...] Description 05/14/2025 1:15 PM EDT Office Visit [facility] UROLOGY [address] [facility] 340 [place] [address] Sanam Saunders, PARVIZ [address] [facility] [address] [place] [address] 05/23/2025 1:30 PM EDT Hospital Encounter [facility] OUTPATIENT [facility]ER [facility]ENTER 1700 [facility] 1100 [place] [address] 06/03/2025 10:40 AM EDT Appointment [facility] MINERV[place] DIALLO [address] [place] [phone] 06/05/2025 10:45 AM EDT Office Visit [facility] RHEUMATOLOGY 330 [facility] 100 [place] [phone] John Sheppard APRN [address] [facility] 100 [place] [address] 07/01/2025 11:00 AM EDT Office Visit [facility] UROLOGY 1760 [facility] 502 [place] [phone] Brennan Lee MD [address] [facility] [address] [place] [address] 07/16/2025 10:30 AM EDT Office Visit [facility] GASTROENTEROLOGY [address] [place] [address] Palak Graham PA-C [address] [place] [address] 07/31/2025 10:00 AM EDT Office Visit [facility] PULMONARY & CRITICAL CARE MEDICINE [address] [facility] 240 [place] [address] Maxine Gibson, AUTOMOTIVE LOT ATTENDANT [address] [place] [address] documented as of this encounter Visit Diagnoses [...] documented as of this encounter Care Teams Tool Shaper Setup Operator Relationship Specialty Start Date End Date Reza Panchal MD 1210 [place] [address] PCP - General Family Medicine 09/30/24 documented as of this encounter
--- OUTSIDE RECORDS SUMMARY | 2025-05-12 12:02 | XMS_ITS ---
Author Name Ephraim RN, LITHOGRAPHY CONTACT WORKER, Leigh martinez Sarina Address [address] [address] Phone [phone] Organization [facility] Care Team Providers Care Journal Entry Audit Clerk Name Role Phone Ivonne Ye Unavailable [phone] Reason for Referral Not Available Allergies, adverse [...] 50 mg Tab TAKE 1 TABLET BY [facility] ONCE DAILY IN AM WITH [...] mg Cap TAKE 1 CAPSULE BY MO [facility] TWICE DAILY FOR 10 DAYS 2024-08-14 [...] EVERY 12 HOURS 2024-01-03 No Data Available [id number] Suspension SHAKE LIQUID AND INSTILL 1 DROP [...] mplaint [facility] [place], [place], [place] 12/25/2024 Encntr for f/u exam aft trtm t for cond oth than malig neoplmSepsis, unspecified organism [facility] 7 [facility] [place] 12/25/2024 Encntr for f/u exam aft trtm t for cond oth than malig neoplmSepsis, unspecified organism [facility] 7 [facility] [place] 12/25/2024 Encntr for f/u exam aft trtm t for cond oth than malig neoplmSepsis, unspecified organism [facility] 7 Day [facility] [place] 12/25/2024 Encntr for f/u exam aft trtm t for cond oth than malig neoplmSepsis, unspecified organism Telephone E/M Service; 5-10 min of Medical Discussion (Audio Only) [place], 12/27/2024 Sepsis, unspecified organism Telephone E/M Service; 5-10 min of Medical Discussion (Audio Only) [place], 12/27/2024 Sepsis, unspecified organism Vital Signs Date of Collection Vitals 2024-12-25 14:07:15 BP Diastolic - 79.0 mm[Hg]BP Systolic - 143.0 mm[Hg]Heart Rate - 92.0 /min Social History Sex Female History of Procedures Procedures Service Procedure code Service date Servicing provider Phone# [facility] 7 Day Disch [id number] 2024-12-25 No Data Available No Data Avail [...] 5-10 min of Medical Discussion (Audio Only) [id number] 2024-12-27 No Data Available No Data Availa [...] getting around the house wellLana Erica is POA/medical collections representative - she comes over and cooks meals, cleans the house, brings her to appts and the grocery store because pt gets out of breath with too much walkingPD will be a phone visit (Cannot be the following states: [place], [place], [place], [place], [place], [place], [place], [place], [place])Pt Agreed to a post discharge visit with a [facility] Provider: with Ivelisse Reed Friday, December 27, 2024 4:00pm ESTRN reinforced availability of UC provider 24/ for 30 days after discharge and encouraged CB w/ any concerns or if pt is worse in any way. Advised pt to call to reach our staff.Needs/concerns for [facility] provider to address during PD visit: [...] review 2024-12-27 Type of Visit: IP[facility]: [facility] Date: 12/19/24Discharge diagnosis: Sepsis, unspecified [...]
--- OUTSIDE RECORDS SUMMARY | 2025-05-12 12:02 | XMS_ITS | Encounter Summary ---
Author Organization [facility] Address [address] [place] [address] Care Team Providers Care Track Maintainer Name Role Phone Reza Panchal MD Primary Care Provider +1- [phone] Encounter Details Date Type Department Care Team (Latest Contact Info) Description 04/29/2025 Travel Social History Tobacco Use Types Packs/Day Years Used Date Smoking Tobacco: Never Passive Smoke Exposure: Past Smokeless Tobacco: Never Comments: smokes, for 45 years Alcohol Use Standard Drinks/Week Comments No 0 (1 standard drink = 0.6 oz pur e alcohol) [facility] Utilities Answer Date Recorded In the past 12 months has [employer], gas, oil, or water [employer] threatened to shut off services in [...] or training? Not on file Preferred Language Nepalese 01/28/2025 PHQ-2 Answer Date Recorded Retired PHQ-9: [...] 05/14/2025 1:15 PM EDT Office [facility] 3000 [facility] 340 [place] [phone] Sanam Saunders, AIR MOTOR REPAIRER 1760 [facility] [address] [place] [address] 05/23/2025 1:30 PM EDT Hospital Encounter [facility] OUTPATIENT ONCOL[facility]Y CANCER CENTER 1700 [facility] 1100 [place] [address] 06/03/2025 10:40 AM EDT Appointment [facility] [place] [address] [place] [phone] 06/05/2025 10:45 AM EDT Office Visit [facility] 330 [facility] 100 [place] [phone] John Sheppard APRN 330 [facility] 100 [place] [address] 07/01/2025 11:00 AM EDT Office Visit [facility] 1760 [facility] 502 [place] [address] Brennan Lee MD 1760 [facility] 502 [place] [address] 07/16/2025 10:30 AM EDT Office Visit [facility] GA[facility]OLOG[facility] 1720 [facility] 302 [place] [phone] Palak Graham PA-C [address] [facility] [address] [place] [address] 07/31/2025 10:00 AM EDT Office Visit [facility] PULMONARY & [facility]ITICAL [facility]ARE MEDICINE 3000 [facility] 240 [place] [address] Maxine Gibson, AIR MOTOR REPAIRER [address] [place] [address] documented as of this encounter Goals Goal [...] documented as of this encounter Care Teams Track Maintainer Relationship Specialty Start Date End Date Reza Panchal MD [facility] [place] [address] PCP - General Family Medicine 09/30/24 documented as of this encounter
--- OUTSIDE RECORDS SUMMARY | 2025-05-12 12:02 | XMS_ITS | Encounter Summary ---
Author Organization [facility] Address [address] [place] [address] Care Team Providers Care Parimutuel Clerk Name Role Phone Reza Panchal MD Primary Care Provider +1- [phone] Encounter Details Date Type Department Care Team (Latest Contact Info) Description 03/28/2025 Travel Social History Tobacco Use Types Packs/Day Years Used Date Smoking Tobacco: Never Passive Smoke Exposure: Past Smokeless Tobacco: Never Comments: smokes, for 45 years Alcohol Use Standard Drinks/Week Comments No 0 (1 standard drink = 0.6 oz pur e alcohol) [facility] Utilities Answer Date Recorded In the past 12 months has [employer] electric, gas, oil, or water company threatened [...] or training? Not on file Preferred Language Kosovan 01/28/2025 PHQ-2 Answer Date Recorded Retired PHQ-9: [...] Visit [facility] UROLOGY 3000 [facility] 340 [place] [phone] Sanam Saunders, HOSE CEMENTER 1760 [facility] [address] [place] [address] 05/23/2025 1:30 PM EDT Hospital Encounter [facility] OUTPATIENT ONCOL[facility] CANCER CENTER 1700 [facility] 1100 [place] [address] 06/03/2025 10:40 AM EDT Appointment [facility] [place] [address] [place] [phone] 06/05/2025 10:45 AM EDT Office Visit [facility] RHEUMATOLOGY 330 [facility] 100 [place] [phone] John Sheppard APRN 330 [facility] 100 [place] [address] 07/01/2025 11:00 AM EDT Office Visit [facility] UROLOGY 1760 [facility] 502 [place] [address] Brennan Lee MD 1760 [facility] 502 [place] [address] 07/16/2025 10:30 AM EDT Office Visit [facility] GASTROENTEROLOGY 1720 [facility] 302 [place] [phone] Palak Graham PA-C 1720 [facility] [address] [place] [address] 07/31/2025 10:00 AM EDT Office Visit [facility] PULMONARY & CRITICAL CARE MEDICINE 3000 [facility] 240 [place] [address] Maxine Gibson, HOSE CEMENTER [address] [place] [address] documented as of this encounter Goals Goal [...] documented as of this encounter Care Teams Parimutuel Clerk Relationship Specialty Start Date End Date Reza Panchal MD [facility] [place] [address] PCP - General Family Medicine 09/30/24 documented as of this encounter
--- OUTSIDE RECORDS SUMMARY | 2025-05-12 12:02 | XMS_ITS | Encounter Summary ---
[facility] Address [address] [place] [address] Care Team Providers Care Occupational Health Rn Name Role Phone Reza Panchal MD Primary Care Provider +1- [phone] Reason for Visit * Reason Onset Date Comments MED QUESTION 03/27/2025 Encounter Details Date Type Department Care Team (Late st Contact Info) Description 03/27/2025 Telephone [facility] UROLOGY 1760 [place] [phone] Brennan Santillan MD [address] [address] MED QUESTION Social History Tobacco Use Types Packs/Day Years Used Date Smoking Tobacco: Never Passive Smoke Exposure: Past Smokeless Tobacco: Never Comments: smokes, for 45 years Alcohol Use Standard Drinks/Week Comments No 0 (1 standard drink = 0.6 oz pur e alcohol) [facility] Utilities Answer Date Recorded In the past 12 months has [employer], gas, oil, or water [employer] threatened to shut off services in your [...] or training? Not on file Preferred Language Macedonian 01/28/2025 PHQ-2 Answer Date Recorded Retired PHQ-9: [...] Relationship: GRAND DAUGHTER Best call back number: [phone] What is the best time to reach [...] it okay if the provider responds through [employer]: YES documented in this encounter Plan of Treatment Upcoming Encounters Date Type Department Care Team (Late st Contact Info) Description 05/14/2025 1:15 PM EDT Office Visit [facility] UROLOGY 3000 [facility] 340 [place] [address] Sanam Saunders, MASTER MERCHANDISER 1760 [facility] [address] [place] [address] 05/23/2025 1:30 PM EDT Hospital Encounter [facility] OUTPATIENT ONCOLOG[facility] CANCER CENTER 1700 [facility] 1100 [place] [address] 06/03/2025 10:40 AM EDT Appointment [facility] [place] [address] [place] [phone] 06/05/2025 10:45 AM EDT Office Visit [facility] RHEUMATOLOGY [address] [place] [phone] John Sheppard APRN 330 [facility] 100 [place] [address] 07/01/2025 11:00 AM EDT Office Visit [facility] UROLOGY 1760 [facility] [address] [place] [address] Brennan Santillan MD 1760 [facility] 502 [place] [address] 07/16/2025 10:30 AM EDT Office Visit [facility] GASTROENTEROLOGY 1720 [facility] 302 [place] [phone] Palak Graham PA-C [address]20 [facility] 302 [place] [address] 07/31/2025 10:00 AM EDT Office Visit [facility] PULMONARY & CRITICAL CARE MEDICINE 3000 [facility] 240 [place] [phone] Maxine Gibson, MASTER MERCHANDISER 2400 [place] [address] documented as of this encounter Goals Goal [...] documented as of this encounter Care Teams Occupational Health Rn Relationship Specialty Start Date End Date Reza Panchal MD [address]10 [place] [address] PCP - General Family Medicine 09/30/24 documented as of this encounter
--- OUTSIDE RECORDS SUMMARY | 2025-05-12 12:02 | XMS_ITS | Clinical Summary ---
Author Organization [facility] Address [address] [place] [address] Care Team Providers Care Medical Imaging Technician Name Role Phone Reza Panchal MD Primary Care Provider [phone] Allergies Active Allergy Reactions Criticality Noted Date [...] differently:10 mg OralDaily, Informant: Self, Reported on 05/06/2025 glucose blood test stripIndications:T ype 2 diabetes [...] 3 Times Daily, Informant: Self, Reported on 05/06/2025 levothyroxine (SYNTHROID, LEVOTHROID) 75 MCG tabletIndications: Acquired hypothyroidism Take 1 tablet by mouth Daily. 30 tablet 5 06/03/20 24 Active amLODIPine (NORVASC) 2.5 MG tabletIndications: Primary hypertension Take 1 tablet by mouth Daily. 30 tablet 2 06/07/20 24 Active Additional Information Patient taking differently:2.5 mg OralAs Needed, Reported on 05/06/2025 pantoprazole (PROTONIX) 40 MG EC tablet Take [...] ued(Dupli maikel order) neomycin-polymyxin -dexamethamethason e (POLYDEX) 3.5-41907-7.1 ointment ophthalmic ointment APPLY SMALL AMOUNT INSIDE [...] Angina pectoris 05/03/2019 Overview (12/31/2020): a. Remote [facility] -- data deficit: No reported disease. b. L ight [place] with medical treatment. c. [facility], 05/12/2011, Dr. Mosley: Angiographically normal [...] Encounters Date Type Department Care Team Description 05/08/2025 Telephone [facility] UROLOGY [facility] [place] [address] STARK - CLINICAL 05/07/2025 Results Follow-Up [facility] AT [address] [place] [phone] Palak Graham PA-C 05/06/2025 12:15 PM EDT Lab [facility] AT [address] [place] [address] Esophageal dysphagia; Gastroesophageal reflux disease, unspecified whether esophagitis present 05/06/2025 10:30 AM EDT Office Visit [facility] GASTROENTEROLOGY [address] [facility] [address] [place] [address] Palak Graham PA-C Esophageal dysphagia (Primary Dx); Gastroesophageal reflux disease, unspecified whether esophagitis present; History of Araseli fundoplication; History of aspiration pneumonia 05/06/2025 Telephone [facility] GASTROENTEROLOGY [address] [facility] [address] [place] [address] Palak Graham PA-C 05/06/2025 Travel 04/29/2025 9:30 AM EDT Office Visit [facility] PULMONARY & CRITICAL CARE MEDICINE [address] [facility] [address] [place] [address] Maxine Gibson APRN Seasonal allergic rhinitis due to pollen (Primary Dx); Chronic cough; GERD without esophagitis; DEVANG (obstructive sleep apnea)/suspected nocturnal hypoxemia.-by history. Intolerant of NIPPV in past. 04/29/2025 Refill [facility] CARDIOLOGY [address] [facility] [address] [place] [address] Tristan Mosley MD Med Refill 04/29/2025 Travel 03/28/2025 12:35 PM EDT - 03/28/2025 11:59 PM EDT Hospital Encounter [facility] [address] [facility] [address] [place] [phone] Patrice Santana DO Rheumatoid arthritis involving multiple sites with positive rheumatoid factor (Primary Dx) Discharge Disposition: Home or Self Care 03/28/2025 Travel 03/27/2025 Telephone [facility] UROLOGY [address] [facility] [address] [place] [address] Brennan Lee MD MED QUESTION 03/26/2025 10:10 AM EDT Office Visit [facility] UROLOGY [address] [facility] [address] [place] [address] Brennan Lee MD OAB (overactive bladder) (Primary Dx); Urge incontinence; Lower urinary tract symptoms (LUTS) 03/26/2025 Travel 03/12/2025 9:20 AM EDT Office Visit [facility] [address] [facility] [address] [place] [address] Brennan Lee MD Erythema (Primary Dx) 03/12/2025 Travel 03/03/2025 Refill [facility] PRIMARY CARE [address] [facility] [address] [place] [address] Huyen Hall MD 02/20/2025 8:44 AM EDT Anesthesia Event [facility] OR [address] [place] [address] Azael Dunn MD 02/20/2025 8:21 AM EDT - 02/20/2025 10:06 AM EDT Surgery [facility] OR [address] [place] [address] Brennan Lee MD INTERSTIM STAGES 1 AND 2 LEAD AND GENERATOR PLACEMENT 02/20/2025 6:31 AM EDT - 02/20/2025 11:30 AM EDT Hospital Encounter [facility] OR [address] [place] [address] Brennan Lee MD OAB (overactive bladder); Urge incontinence Discharge Disposition: Home or Self Care 02/20/2025 Travel 02/11/2025 10:30 AM EDT Office Visit [facility] UROLOGY [address] [place] [address] Brennan Lee MD OAB (overactive bladder) (Primary Dx); Urge incontinence 02/11/2025 Travel from Last 3 Months Immunizations Immunization [...] = 0.6 oz pur e alcohol) [facility] Utilities Answer Date Recorded In the past 12 months has e [employer], gas, oil, or water company threatened to [...] F) 05/06/2025 10:16 AM EDT Respiratory Rate 16 03/28/2025 1:27 PM EDT Oxygen Saturation 97% 05/06/2025 10:16 AM EDT Inhaled Oxygen Concentration - - Weight 90.4 kg (199 lb 6.4 oz) 05/06/2025 10:16 AM EDT Height 152.4 cm (5') 05/06/2025 10:16 AM EDT Body Mass Index 38.94 05/06/2025 10:16 AM EDT Plan of Treatment Upcoming Encounters Date Type Department Care Team (Late st Contact Info) Description 05/14/2025 1:15 PM EDT Office Visit [facility] UROLOGY [address] [facility] [address] [place] [address] Sanam Saunders, BOOK ILLUSTRATOR [address] [facility] [address] [place] [address] 05/23/2025 1:30 PM EDT Hospital Encounter [facility] [address] [facility] [address] [place] [address] 06/03/2025 10:40 AM EDT Appointment [facility] [place] [address] [place] [address] 06/05/2025 10:45 AM EDT Office Visit [facility] RHEUMATOLOGY [address] [facility] 100 [place] [phone] John Sheppard APRN [address] [facility] 100 [place] [address] 07/01/2025 11:00 AM EDT Office Visit [facility] UROLOGY [address] [facility] [address] [place] [address] Brennan Lee MD [address] [facility] [address] [place] [address] 07/16/2025 10:30 AM EDT Office Visit [facility] GASTROENTEROLOGY [address] [facility] [address] [place] [phone] Palak Graham PAArnaldoC [address] [facility] [address] [place] [address] 07/31/2025 10:00 AM EDT Office Visit [facility] PULMONARY & CRITICAL CARE MEDICINE [address] [facility] [address] [place] [phone] Maxine Gibson, BOOK ILLUSTRATOR [address] [place] [address] Health Maintenance Due Date Last Done Comments COLOGUARD 2002 COLON CANCER SCREENING 5 YEA R SIGMOIDOSCOPY 2002 CT COLONOGRAPHY 2002 FIT Testing (1 year) 2002 URINE MICROALBUMIN-CREATININ E RATIO (uACR) 04/13/2022 04/13/2021, 04/07/2020, 07/16/2019 TDAP/TD VACCINES (2 - Td or Tdap) 04/24/2022 012 DIABETIC FOOT EXAM 01/05/2024 01/04/2023, 0 01/04/2023, 01/04/2023, Additional history exists SHIP SCALER PLAN OF CARE 02/07/2024 ANNUAL WELLNESS VISIT 04/13/2024 04/13/2023 , 04/13/2021, 04/07/2020, Additional history exists FECAL OCCULT BLOOD TEST 04/13/2024 04/13/20, 01/14/2021, 11/07/2018 COVID-19 Vaccine (2 5 season) 2024 DIABETIC EYE EXAM 07/20/2024 [...] day. Notes: Medical Devices Implanted Type Area Instantizer Operator Device Identifier Shelf Expiration Date Model / Serial / Lot Pk Imp Trial Basic Bilat W/Ext Neurostm/Pne Ld Imp Kt - [id number] Implanted:Qty: 1 on 02/04/2025 by Brennan Lee MD at [facility] Implant N/A: Back [employer] 07/15/2025 [id number] / / [id number] Ld Neurostm Sacral Pne - [id number] Implanted:Qty: 1 on 02/04/2025 by Brennan Lee MD at [facility] Implant Back [employer] 02/20/2027 1901 / / [id number] Neurostm Sacral/Nerv [employer] Nonrechg W/Torq Wrench - [id number] Implanted:Qty: 1 on 02/20/2025 by Brennan Lee MD at [facility] Implant N/A: Back [employer] 12/12/2025 [id number] / / [id number] Kt Ld Stim Tined [employer] W/2/Sty Str/Crv - [id number] Implanted:Qty: 1 on 02/20/2025 by Brennan Lee MD at [facility] Implant N/A: Back [employer] 02/27/2027 [id number] / / [id number] Procedures Procedure Name Priority Date/Time Associated Diagnosis Comments CBC AND DIFFERENTIAL Routine 05/06/2025 12:01 PM EDT Esophageal dysphagia Gastroesophageal reflux disease, unspecified whether esophagitis present TSH RFX ON ABNORMAL TO FREE T4 Add-On 05/06/2025 12:01 PM EDT Esophageal dysphagia Gastroesophageal reflux disease, unspecified whether esophagitis present CBC WITH AUTO DIFFERENTIAL Routine 05/06/2025 12:01 PM EDT Esophageal dysphagia Gastroesophageal reflux disease, unspecified whether esophagitis present COMPREHENSIVE METABOLIC PANEL Routine 05/06/2025 12:01 PM EDT Esophageal dysphagia Gastroesophageal reflux disease, unspecified whether esophagitis present FL C ARM DURING SURGERY Routine 02/20/2025 [...] GLUCOSE FINGERSTICK Routine 02/20/2025 7:03 AM EDT POCT GLYCOSYLATED HEMOGLOBIN (HGB A1C) [...] Recently Relevant to Health Maintenance Results * TSH Rfx On Abnormal To Free T4 (05/06/2025 12:01 PM EDT) Pathologist [facility] TSH 2.680 0.270 - 4.200 uIU/mL 05/06/2025 7:29 PM EDT [facility] Blood Venipuncture / Unknown 05/06/2025 12:01 PM EDT 05/06/2025 12:01 PM EDT us Palak Graham PA-C LAB BLOOD ORDERABLES Final Result [facility]
[address] [place] [address], * (ABNORMAL) CBC Auto Differential (05/06/2025 12:01 PM EDT) WBC 6.88 3.40 - 10.80 10*3/mm3 05/06/2025 6:48 PM EDT [facility] RBC 4.42 3.77 - 5.28 10*6/mm3 05/06/2025 6:48 PM EDT [facility] Hemoglobin 13.5 12.0 - 15.9 g/dL 05/06/2025 6:48 PM EDT [facility] Hematocrit 41.0 34.0 - 46.6 % 05/06/2025 6:48 PM EDT [facility] MCV 92.8 79.0 - 97.0 fL 05/06/2025 6:48 PM EDT [facility] MCH 30.5 26.6 - 33.0 pg 05/06/2025 6:48 PM EDT [facility] MCHC 32.9 31.5 - 35.7 g/dL 05/06/2025 6:48 PM EDT [facility] RDW 13.1 12.3 - 15.4 % 05/06/2025 6:48 PM EDT [facility] RDW-SD 44.8 37.0 - 54.0 fl 05/06/2025 6:48 PM EDT [facility] MPV 10.0 6.0 - 12.0 fL 05/06/2025 6:48 PM EDT [facility] Platelets 314 140 - 450 10*3/mm3 05/06/2025 6:48 PM EDT [facility] Neutrophil % 41.1(L) 42.7 - 76.0 % 05/06/2025 6:48 PM EDT [facility] Lymphocyte % 37.1 19.6 - 45.3 % 05/06/2025 6:48 PM EDT [facility] Monocyte % 14.8(H) 5.0 - 12.0 % 05/06/2025 6:48 PM EDT [facility] Eosinophil % 5.4 0.3 - 6.2 % 05/06/2025 6:48 PM EDT [facility] Basophil % 0.7 0.0 - 1.5 % 05/06/2025 6:48 PM EDT [facility] Immature Grans % 0.9(H) 0.0 - 0.5 % 05/06/2025 6:48 PM EDT [facility] Neutrophils, Absolute 2.83 1.70 - 7.00 10*3/mm3 05/06/2025 6:48 PM EDT [facility] Lymphocytes, Absolute 2.55 0.70 - 3.10 10*3/mm3 05/06/2025 6:48 PM EDT [facility] Monocytes, Absolute 1.02(H) 0.10 - 0.90 10*3/mm3 05/06/2025 6:48 PM EDT [facility] Eosinophils, Absolute 0.37 0.00 - 0.40 10*3/mm3 05/06/2025 6:48 PM EDT [facility] Basophils, Absolute 0.05 0.00 - 0.20 10*3/mm3 05/06/2025 6:48 PM EDT [facility] Immature Grans, Absolute 0.06(H) 0.00 - 0.05 10*3/mm3 05/06/2025 6:48 PM EDT [facility] nRBC 0.0 0.0 - 0.2 /100 WBC 05/06/2025 6:48 PM EDT [facility] Blood Venipuncture / Unknown 05/06/2025 12:01 PM EDT 05/06/2025 12:01 PM EDT us Palak Graham PA-C LAB BLOOD ORDERABLES Final Result [facility]
[address] [place] [address], * (ABNORMAL) Comprehensive Metabolic Panel (05/06/2025 12:01 PM EDT) Only the most recent of2 resultswithin the time period is included. Glucose 150(H) 65 - 99 mg/dL 05/06/2025 7:23 PM EDT [facility] BUN 17.0 8.0 - 23.0 mg/dL 05/06/2025 7:23 PM [facility] Creatinine 0.85 0.57 - 1.00 mg/dL 05/06/2025 7:23 PM [facility] Sodium 141 136 - 145 mmol/L 05/06/2025 7:23 PM [facility] Potassium 4.0 3.5 - 5.2 mmol/L 05/06/2025 7:23 PM [facility] Chloride 101 98 - 107 mmol/L 05/06/2025 7:23 PM [facility] CO2 27.3 22.0 - 29.0 mmol/L 05/06/2025 7:23 PM [facility] Calcium 9.4 8.6 - 10.5 mg/dL 05/06/2025 7:23 PM [facility] Total Protein 7.7 6.0 - 8.5 g/dL 05/06/2025 7:23 PM [facility] Albumin 4.0 3.5 - 5.2 g/dL 05/06/2025 7:23 PM [facility] ALT (SGPT) 21 1 - 33 U/L 05/06/2025 7:23 PM [facility] AST (SGOT) 18 1 - 32 U/L 05/06/2025 7:23 PM [facility] Alkaline Phosphatase 98 39 - 117 U/L 05/06/2025 7:23 PM [facility] Total Bilirubin 0.3 0.0 - 1.2 mg/dL 05/06/2025 7:23 PM [facility] Globulin 3.7 gm/dL 05/06/2025 7:23 PM [facility] A/G Ratio 1.1 g/dL 05/06/2025 7:23 PM [facility] BUN/Creatinine Ratio 20.0 7.0 - 25.0 05/06/2025 7:23 PM [facility] Anion Gap 12.7 5.0 - 15.0 mmol/L 05/06/2025 7:23 PM EDT [facility] eGFR 75.2 >60.0 mL/min/1.7 3 05/06/2025 7:23 PM EDT [facility] Blood Venipuncture / Unknown 05/06/2025 12:01 PM EDT 05/06/2025 12:01 PM EDT Narrative [facility] - 05/06/2025 7:23 PM EDT [...] Graham PA-C LAB BLOOD ORDERABLES Final Result [facility]
[address] [place] [address], * FL C Arm During Surgery (02/20/2025 [...] and Staff Patient location during procedure: OR SENIOR SOFTWARE TEST ENGINEER/CAA: Junior Ping F, SENIOR SOFTWARE TEST ENGINEER Indications and Patient Condition Indications for airway [...] chest rise and fall Pastor F Ping FOX ANESTHESIA ORDERABLES Fin al Result * CBC (No Diff) (02/20/2025 7:09 AM EDT) WBC 7.15 3.40 - 10.80 10*3/mm3 02/20/2025 7:29 AM EDT [facility] RBC 4.33 3.77 - 5.28 10*6/mm3 02/20/2025 7:29 AM EDT [facility] Hemoglobin 12.9 12.0 - 15.9 g/dL 02/20/2025 7:29 AM EDT [facility] Hematocrit 39.6 34.0 - 46.6 % 02/20/2025 7:29 AM EDT [facility] MCV 91.5 79.0 - 97.0 fL 02/20/2025 7:29 AM EDT [facility] MCH 29.8 26.6 - 33.0 pg 02/20/2025 7:29 AM EDT [facility] MCHC 32.6 31.5 - 35.7 g/dL 02/20/2025 7:29 AM EDT [facility] RDW 13.2 12.3 - 15.4 % 02/20/2025 [facility] RDW-SD 43.7 37.0 - 54.0 fl 02/20/2025 7:29 AM EDT [facility] MPV 9.7 6.0 - 12.0 fL 02/20/2025 7:29 AM EDT [facility] Platelets 205 140 - 450 10*3/mm3 02/20/2025 7:29 AM EDT [facility] Blood Line / Unknown 02/20/2025 7: 09 AM EDT 02/20/2025 7:09 AM EDT Azael Dunn MD LAB BLOOD ORDERAB LES Final Result [facility]
[address] [place] [address], [place] [phone] * POC Glucose Once (02/20/2025 7:03 AM EDT) Glucose 100 70 - 130 mg/dL 02/20/2025 7:07 AM EDT [facility] Blood 02/20/2025 7:03 AM EDT 02/20/2025 7:07 AM EDT Brennan Lee MD POINT OF CARE TEST ORDERABLES F inal Result [facility]
[address] [place] [address], [place] [phone] * (ABNORMAL) POC Glycosylated Hemoglobin (Hb A1C) (04/15/2024 3:58 PM EDT) Hemoglobin A1C 5.6 4.5 - 5.7 % [facility] Lot Number [id number] [facility] Expiration Date 12/31/2025 [facility] Blood 04/15/2024 3:58 PM EDT us Huyen Pal MD POINT OF CARE TEST ORDERABL ES Final Result [facility]
[address] [place] [address], * (ABNORMAL) Hepatitis Panel, Acute (04/12/2024 11:29 AM EDT) Pathologist [facility] Hepatitis B Surface Ag Non-Reacti ve Non-Reacti ve 04/13/2024 1:52 AM EDT [facility] Hep A IgM Reactive(A ) Non-Reacti ve 04/13/2024 1:52 AM EDT [facility] Hep B C IgM Non-Reacti ve Non-Reacti ve 04/13/2024 1:52 AM EDT [facility] Hepatitis C Ab Non-Reacti ve Non-Reacti ve 04/13/2024 1:52 AM EDT [facility] Blood Venipuncture / Unknown 04/12/2024 11:29 AM EDT 04/12/2024 11:32 AM EDT Narrative [facility] - 04/13/2024 1:52 AM EDT Results may be falsely decreased if patient taking Biotin. Patrice Santana LAB BLOOD ORDERABLES F inal Result Performing Organization Address City/[facility]/ZIP Co de Phone Number [facility]
[address] [place] [address], * DEXA Scan (04/10/2024 12:14 PM EDT) Anatomical Region Laterality Modality Other Historical Provider MD PEDRAZA CHART REVIEW TABS Maira l Result * (ABNORMAL) Lipid Panel (02/21/2024 10:20 AM EDT) Total Cholesterol 143 0 - 200 mg/dL 02/21/2024 11:45 PM EDT [facility] Triglycerides 212(H) 0 - 150 mg/dL 02/21/2024 11:45 PM EDT [facility] HDL Cholesterol 37(L) 40 - 60 mg/dL 02/21/2024 11:45 PM EDT [facility] LDL Cholesterol 71 0 - 100 mg/dL 02/21/2024 11:45 PM EDT [facility] VLDL Cholesterol 35 5 - 40 mg/dL 02/21/2024 11:45 PM EDT [facility] LDL/HDL Ratio 1.72 02/21/2024 11:45 PM EDT [facility] Blood Structure of right upper limb / Unknown Venipuncture / Unknown 02/21/2024 10:20 AM EDT 02/21/2024 10:20 AM EDT Narrative [facility] - 02/21/2024 11:45 PM EDT [...] High 160-189 mg/dL Very High >189 mg/dL us Huyen Pal MD LAB BLOOD ORDERABLES Final Result [facility]
[address] [place] [address], * SCANNED - EYE EXAM (07/20/2023) Anatomical [...] secondary signs of malignancy. Huyen Pal MD IM MAMMOGRAPHY ORDERABLES Final Result * POCT occult blood x 1 stool (04/13/2023 11:32 AM EDT) Fecal Occult Blood Negative Negative [facility] Lot Number [id number] [facility] Expiration Date 11/15/2024 [facility] DEVELOPER LOT NUMBER [id number] [facility] DEVELOPER EXPIRATION DATE 02/12/2025 [facility] Positive Control Positive Positive [facility] Negative Control Negative Negative [facility] Stool 04/13/2023 11:3 2 AM EDT Huyen Pal MD POINT OF CARE TEST ORDERABL ES Final Result [facility]
[address] [place] [address], * Microalbumin / Creatinine Urine Ratio - [...] 2:11 PM EDT 04/14/2021 Comment:URINE RELEASE TO [facility] Narrative [facility] (AMBULATORY) - 04/14/2021 10:09 AM EDT Performed at: 01 - [address] [id number] Editing Computer Publisher: Jean Stephens PhD, Phone: [phone] Huyen Pal MD URINE ORDERABLES Final Resu lt Performing Organization Address City/[facility]/ZIP Co de Phone Number [facility] [address] [place] [address], [facility] [address] [place] [address], * SCANNED - INFLUENZA (07/16/2019) Huyen Pal MD CHART REVIEW TABS Final Result * SCANNED - COLONOSCOPY (11/14/2013) Lizbeth Ibarra MD CHART REVIEW TABS Final Result from Last 3 Months or Most Recently Relevant to Health Maintenance Additional Health Concerns Infection Onset Date Last Indicated Hepatitis A 04/12/2024 04/12/2024 Insurance [employer] MEDICARE ADVANTAGE [place] MED[place] Advance Directives Documents on File Type Date Recorded Patient Advertising Assistant Expl anation PATIENT ADVANCE DIRECTIVES - SCAN [...] Of Support Discussed With: Patient Care Teams Medical Imaging Technician Relationship Specialty Start Date End Date Reza Panchal MD [address] [place] [address] PCP - General Family Medicine 09/30/24
--- OUTSIDE RECORDS SUMMARY | 2025-05-12 12:02 | XMS_ITS | Encounter Summary ---
[facility] Organization [facility] Address [address] [place] [address] Care Team Providers Care Platform Inspector Name Role Phone Reza Panchal MD Primary Care Provider [phone]- [phone] Encounter Details Date Type Department Care Team (Late st Contact Info) Description 05/06/2025 Telephone [facility] GASTROENTEROLOGY [address] [facility] [address] [place] [address] Robert Graham PA-C [address] [facility] [address] [place] [address] Social History Tobacco Use Types Packs/Day Years Used Date Smoking Tobacco: Never Passive Smoke Exposure: Past Smokeless Tobacco: Never Comments: smokes, for 45 years Alcohol Use Standard Drinks/Week Comments No 0 (1 standard drink = 0.6 oz pur e alcohol) [facility] Utilities Answer Date Recorded In the past 12 months has [employer], gas, oil, or water company threatened [...] or training? Not on file Preferred Language Vietnamese 01/28/2025 PHQ-2 Answer Date Recorded Retired PHQ-9: Brief Depression Severity Measure Score 7 05/20/2024 Comments No Sex and Gender Information Value Date Recorded Sex Assigned at Female 01/09/2025 11:01 AM EDT Legal Sex Female 12:37 PM EDT Gender Identity Not on file Sexual Orientation Not on file documented as of this encounter Miscellaneous Notes * Telephone Encounter - Khadar Julien RMA - 05/06/2025 3:30 PM EDT I SPOKE WITH DANIEL PATIENT'S GRANDDAUGHTER. INFORMED HER THAT ROBERT WANTS PATIENT TO HAVE EGD FIRST BEFORE ANY ADDITIONAL TESTS. DANIEL VOICED UNDERSTANDING. documented in this encounter Plan of Treatment Upcoming Encounters Date Type Department Care Team (Late st Contact Info) Description 05/14/2025 1:15 PM EDT Office Visit [facility] UROLOGY [address] [facility] [address] [place] [phone] Sanam Saunders, FAN BLADE ALIGNER [address] [facility] [address] [place] [address] 05/23/2025 1:30 PM EDT Hospital Encounter [facility] [address] [facility] [address] [place] [address] 06/03/2025 10:40 AM EDT Appointment [facility] DEXA YOEL [address] [place] [phone] 06/05/2025 10:45 AM EDT Office Visit [facility] RHEUMATOLOGY [address] [facility] [address] [place] [id number] John Sheppard, PARVIZ [address] [facility] [address] [place] [address] 07/01/2025 11:00 AM EDT Office Visit [facility] UROLOGY [address] [facility] [address] [place] [address] Brennan Lee MD [address] [facility] [address] [place] [address] 07/16/2025 10:30 AM EDT Office Visit [facility] GASTROENTEROLOGY [address] [facility] [address] [place] [phone] Robert Graham PA-C [address] [place] [address] 07/31/2025 10:00 AM EDT Office Visit [facility] PULMONARY & CRITICAL CARE MEDICINE [address] [facility] [address] [place] [id number] Maxine Gibson, PARVIZ [address] [place] [address] documented as of this encounter Goals Goal [...] documented as of this encounter Care Teams Platform Inspector Relationship Specialty Start Date End Date Reza Panchal MD Count includes the [facility] [place] [address] PCP - General Family Medicine 09/30/24 documented as of this encounter
--- OUTSIDE RECORDS SUMMARY | 2025-05-12 12:02 | XMS_ITS | Encounter Summary ---
[facility] Organization [facility] Address [address] [place] [address] Care Team Providers Care Supervisor Bottle House Cleaners Name Role Phone Reza Panchal MD Primary Care Provider +1- [phone] Reason for Visit * Reason Onset Date Comments Med Refill 04/29/2025 Encounter Details Date Type Department Care Team (Late st Contact Info) Description 04/29/2025 Refill [facility] CARDIOLOGY 1720 [facility] [address] [address] [place] [address] Tristan Mosley MD 1720 [facility] [address] [place] [address] Med Refill Social History Tobacco Use Types [...] Description 05/14/2025 1:15 PM EDT Office Visit [facility] UROLOGY 3000 [facility] [address] [place] [address] Sanam Saunders, NURSING SECRETARY 1760 [facility] [address] [place] [address] 05/23/2025 1:30 PM EDT Hospital Encounter [facility] OUTPATIENT ONCOLOGY CANCER CENTER 1700 [facility] 1100 [place] [address] 06/03/2025 10:40 AM EDT [facility] [address] [phone] 06/05/2025 10:45 AM EDT Office Visit [facility] RHEUMATOLOGY 330 [facility] 100 [place] [address] John Sheppard, PARVIZ 330 [facility] 100 [place] [address] 07/01/2025 11:00 AM EDT Office Visit [facility] UROLOGY 1760 [facility] 502 [place] [address] Brennan Lee MD 1760 [facility] 502 [place] [address] 07/16/2025 10:30 AM EDT Office Visit [facility] GASTROENTEROLOGY [address] [place] [address] Palak Graham PA-C [address] [place] [address] 07/31/2025 10:00 AM EDT Office Visit [facility] PULMONARY & CRITICAL CARE MEDICINE 3000 [facility] [address] [place] [address] Maxine Gibson, NURSING SECRETARY [address] [place] [address] documented as of this encounter Goals Goal [...] as of this encounter Care Teams Supervisor Bottle House Cleaners Relationship Specialty Start Date End Date Reza Panchal MD [facility] [place] [address] PCP - General Family Medicine 09/30/24 documented as of this encounter
--- OUTSIDE RECORDS SUMMARY | 2025-05-12 12:02 | XMS_ITS | Encounter Summary ---
Author Organization [facility] Address [address] [place] [address] Care Team Providers Care Sweatband Perforator Name Role Phone Reza Panchal MD Primary Care Provider +1- [phone] Encounter Details Date Type Department Care Team (Latest Contact Info) Description 05/06/2025 Travel Social History Tobacco Use Types Packs/Day Years Used Date Smoking Tobacco: Never Passive Smoke Exposure: Past Smokeless Tobacco: Never Comments: smokes, for 45 years Alcohol Use Standard Drinks/Week Comments No 0 (1 standard drink = 0.6 oz pur e alcohol) [facility] Utilities Answer Date Recorded In the past 12 months has [email or web address] electric, gas, oil, or water company threatened [...] or training? Not on file Preferred Language Ukrainian 01/28/2025 PHQ-2 Answer Date Recorded Retired PHQ-9: [...] CENTER UROLOGY 3000 [facility] 340 [place] [address] Sanam Saunders, CERTIFIED NUTRITIONIST 1760 [facility] [address] [place] [address] 05/23/2025 1:30 PM EDT Hospital Encounter [facility] OUTPATIENT ONCOLOGY CANCER CENTER 1700 [facility] 1100 [place] [address] 06/03/2025 10:40 AM EDT Appointment [facility] YOEL [address] [place] [phone] 06/05/2025 10:45 AM EDT Office Visit [facility] RHEUMATOLOGY 330 [facility] 100 [place] [address] John Sheppard APRN 330 [facility] 100 [place] [address] 07/01/2025 11:00 AM EDT Office Visit [facility] UROLOGY 1760 [facility] 502 [place] [address] Brennan Lee MD 1760 [facility] 502 [place] [address] 07/16/2025 10:30 AM EDT Office Visit [facility] GASTROENTEROLOGY 1720 [facility] 302 [place] [address] Palak Graham PA-C 1720 [facility] [address] [place] [address] 07/31/2025 10:00 AM EDT Office Visit [facility] PULMONARY & CRITICAL CARE MEDICINE 3000 [facility] 240 [place] [address] Maxine Gibson, CERTIFIED NUTRITIONIST [address] [place] [address] documented as of this encounter Goals Goal [...] documented as of this encounter Care Teams Sweatband Perforator Relationship Specialty Start Date End Date Reza Pnachal MD [facility] [place] [address] PCP - General Family Medicine 09/30/24 documented as of this encounter
--- OUTSIDE RECORDS SUMMARY | 2025-05-12 12:02 | XMS_ITS | Encounter Summary ---
[facility] Address [address] [place] [address] Care Team Providers Care Unloading Checker Name Role Phone Reza Panchal MD Primary Care Provider +1- [phone] Reason for Visit * Reason Comments Med Refill Encounter Details Date Type Department Care Team (Late st Contact Info) Description 02/24/2023 Refill [facility] PRIMARY CARE [address] [address] Huyen Hall MD 2039 [facility] 100 [place], [place] [phone] Type 2 diabetes mellitus with hyperglycemia, without [...] Description 05/14/2025 1:15 PM EDT Office Visit [facility] UROLOGY 3000 [facility] 340 [place] [address] Sanam Saunders, GERIATRIC NURSE ASSISTANT 1760 [facility] [address] [place] [address] 05/23/2025 1:30 PM EDT Hospital Encounter [facility] OUTPATIENT ONCOL[facility]CER CENTER 1700 [facility] 1100 [place] [address] 06/03/2025 10:40 AM EDT Appointment [facility] DEXA YOEL 3084 [place] [address] 06/05/2025 10:45 AM EDT Office Visit [facility] RHEUMATOLOGY 330 [facility] 100 [place] [address] John Sheppard APRN [address] [facility] 100 [place] [address] 07/01/2025 11:00 AM EDT Office Visit [facility] UROLOGY 1760 [facility] 502 [place] [address] Brennan Lee MD 1760 [facility] [address] 502 [place] [address] 07/16/2025 10:30 AM EDT Office Visit [facility] GASTROENTEROLOGY 1720 [facility] [address] 302 [place] [address] Palak Graham PA-C 1720 [facility] [address] [place] [address] 07/31/2025 10:00 AM EDT Office Visit [facility] PULMONARY & CRITICAL CARE MEDICINE 3000 [facility] 240 [place] [address] Maxine Gibson, GERIATRIC NURSE ASSISTANT [address] [place] [address] documented as of this encounter Visit Diagnoses [...] documented as of this encounter Care Teams Unloading Checker Relationship Specialty Start Date End Date Reza Panchal MD 1210 [place] [address] PCP - General Family Medicine 09/30/24 documented as of this encounter
--- OUTSIDE RECORDS SUMMARY | 2025-05-12 12:03 | XMS_ITS | Clinical Summary ---
Author Organization Healthcare Address [address] [place] [address] Care Team Providers Care Sales Property Manager Name Role Phone Reza Panchal MD Primary Care Provider +1- [phone] Allergies Active Allergy Reactions Criticality Noted Date [...] file Insurance [employer] [place] Care Teams Sales Property Manager Relationship Specialty Start Date End Date Reza Panchal MD [address] [place] [address] PCP - General 08/17/24
--- OUTSIDE RECORDS SUMMARY | 2025-05-12 12:03 | XMS_ITS | Encounter Summary ---
Author Organization [facility] Address [address] [place] [address] Care Team Providers Care Rural Mail Contractor Name Role Phone Reza Panchal MD Primary Care Provider +1- [phone] Reason for Visit * Reason Comments Med Refill Encounter Details Date Type Department Care Team (Late st Contact Info) Description 07/03/2023 Refill [facility] PRIMARY CARE [address] [address] Huyen Hall MD 2039 [facility] 100 [place], [place] [phone] Reactive depression; Type 2 diabetes mellitus with [...] Description 05/14/2025 1:15 PM EDT Office Visit [facility] UROLOGY 3000 [facility] 340 [place] [address] Sanam Saunders, PRESERVATIVE FILLER MACHINE OPERATOR 1760 [facility] [address] [place] [address] 05/23/2025 1:30 PM EDT Hospital Encounter [facility] OUTPATIENT ONCOLOGY CANCER CENTER 1700 [facility] [address] [place] [address] 06/03/2025 10:40 AM EDT Appointment [facility] MINERVA YOEL [address] [place] [phone] 06/05/2025 10:45 AM EDT Office Visit [facility] RHEUMATOLOGY 330 [facility] 100 [place] [address] John Sheppard APRN 330 [facility] 100 [place] [address] 07/01/2025 11:00 AM EDT Office Visit [facility] UROLOGY 1760 [facility] [address] [address] [place] [address] Brennan Lee MD 1760 [facility] [address] [place] [address] 07/16/2025 10:30 AM EDT Office Visit [facility] GASTROENTEROLOGY 1720 [facility] [address] [place] [address] Palak Graham PA-C 1720 [facility] [address] [place] [address] 07/31/2025 10:00 AM EDT Office Visit [facility] PULMONARY & CRITICAL CARE MEDICINE 3000 [facility] 240 [place] [address] Maxine Gibson, PRESERVATIVE FILLER MACHINE OPERATOR 2400 [place] [address] documented as of this encounter Visit Diagnoses [...] documented as of this encounter Care Teams Rural Mail Contractor Relationship Specialty Start Date End Date Reza Panchal MD [address] [place] [address] PCP - General Family Medicine 09/30/24 documented as of this encounter
--- OUTSIDE RECORDS SUMMARY | 2025-05-12 12:03 | XMS_ITS | Encounter Summary ---
Author Organization [facility] Address [address] [place] [address] Care Team Providers Care Prepared Foods Production Team Member Name Role Phone Reza Panchal MD Primary Care Provider +1- [phone] Encounter Details Date Type Department Care Team (Late st Contact Info) Description 01/15/2025 Results Follow-Up [facility] RHEUMATOLOGY [address] [address] Patrice Santana, 330 [facility] 100 [place] [address] Social History Tobacco Use Types Packs/Day Years Used Date Smoking Tobacco: Never Passive Smoke Exposure: Past Smokeless Tobacco: Never Comments: smokes, for 45 years Alcohol Use Standard Drinks/Week Comments No 0 (1 standard drink = 0.6 oz pur e alcohol) [facility] Utilities Answer Date Recorded In the past 12 months has [employer], gas, oil, or water company threatened to [...] training? Not on file Preferred Language Macedonian 05/28/2024 PHQ-2 Answer Date Recorded Retired PHQ-9: [...] Description 05/14/2025 1:15 PM EDT Office Visit [facility] UROLOGY 3000 [facility] [address] [place] [address] Sanam Saunders, RESIDENTIAL CONCIERGE 1760 [facility] [address] [place] [address] 05/23/2025 1:30 PM EDT Hospital Encounter [facility] OUTPATIENT ONCOLOGY CANCER CENTER 1700 [facility] [address] [place] [address] 06/03/2025 10:40 AM EDT Appointment [facility] DEXA YOEL 30[address] [place] [address] 06/05/2025 10:45 AM EDT Office Visit [facility] RHEUMATOLOGY 330 [facility] 100 [place] [address] John Sheppard, PARVIZ [address] [facility] 100 [place] [address] 07/01/2025 11:00 AM EDT Office Visit [facility] UROLOGY 1760 [facility] [address] [place] [address] Brennan Lee MD 1760 [facility] 502 [place] [address] 07/16/2025 10:30 AM EDT Office Visit [facility] GASTROENTEROLOGY 1720 [facility] [address] [place] [address] Palak Graham PA-C [address] [place] [address] 07/31/2025 10:00 AM EDT Office Visit [facility] PULMONARY & CRITICAL CARE MEDICINE 3000 [facility] [address] [place] [address] Maxine Gibson APRN [address] [place] [address] documented as of this encounter Goals Goal [...] documented as of this encounter Care Teams Prepared Foods Production Team Member Relationship Specialty Start Date End Date Reza Panchal MD [address] [place] [address] PCP - General Family Medicine 09/30/24 documented as of this encounter
--- OUTSIDE RECORDS SUMMARY | 2025-05-12 12:03 | XMS_ITS | Encounter Summary ---
Author Organization Healthcare Address [address] [place] [address] Care Team Providers Care Farmworker Name Role Phone Reza Panchal MD Primary Care Provider +1- [phone] Encounter Details Date Type Department Care Team (Late st Contact Info) Description 08/17/2024 Ophth Exam [facility] - Pediatrics [address] [place] [address] Tian Ramírez MD [address] [place] [address] Social History Tobacco Use Types Packs/Day [...] on filedocumented in this encounter Care Teams Farmworker Relationship Specialty Start Date End Date Reza Panchal MD [address] [place] [address] PCP - General 08/17/24 documented as of this encounter
--- OUTSIDE RECORDS SUMMARY | 2025-05-12 12:03 | XMS_ITS | Encounter Summary ---
Author Organization [facility] Address [address] [place] [address] Care Team Providers Care Food Sampler Name Role Phone Reza Panchal MD Primary Care Provider +1- [phone] Reason for Visit * Reason Comments Med Refill Encounter Details Date Type Department Care Team (Late st Contact Info) Description 02/12/2021 Refill [facility] PRIMARY CARE [address] [address] Huyen Hall MD 2039 [facility] 100 [place], [place] [phone] Gastroesophageal reflux disease, unspecified whether esophagitis present [...] Description 05/14/2025 1:15 PM EDT Office Visit [facility] UROLOGY 3000 [facility] 340 [place] [address] Sanam Saunders, ASSISTANT GOLF COURSE SUPERINTENDENT 1760 [facility] [address] [place] [address] 05/23/2025 1:30 PM EDT Hospital Encounter [facility] OUTPATIENT ONCOLOGY CANCER CENTER 1700 [facility] [address] [place] [address] 06/03/2025 10:40 AM EDT Appointment [facility] MINERVA DIALLO [address] [place] [phone] 06/05/2025 10:45 AM EDT Office Visit [facility] RHEUMATOLOGY 330 [facility] 100 [place] [address] John Sheppard, ASSISTANT GOLF COURSE SUPERINTENDENT 330 [facility] 100 [place] [address] 07/01/2025 11:00 AM EDT Office Visit [facility] UROLOGY 1760 [facility] [address] [address] [place] [address] Brennan Lee MD 1760 [facility] [address] [place] [address] 07/16/2025 10:30 AM EDT Office Visit [facility] GASTROENTEROLOGY 1720 [facility] [address] [place] [address] Palak Graham PA-C 1720 [facility] [address] [place] [address] 07/31/2025 10:00 AM EDT Office Visit [facility] PULMONARY & CRITICAL CARE MEDICINE 3000 [facility] 240 [place] [address] Maxine Gibson, ASSISTANT GOLF COURSE SUPERINTENDENT [address] [place] [address] documented as of this encounter Visit Diagnoses [...] documented as of this encounter Care Teams Food Sampler Relationship Specialty Start Date End Date Reza Panchal MD [address] [place] [address] PCP - General Family Medicine 09/30/24 documented as of this encounter
--- OUTSIDE RECORDS SUMMARY | 2025-05-12 12:03 | XMS_ITS | Encounter Summary ---
Author Organization [facility] Address [address] [place] [address] Care Team Providers Care Coldfusion Name Role Phone Reza Panchal MD Primary Care Provider +1- [phone] Reason for Visit * Reason Comments Med Refill Encounter Details Date Type Department Care Team (Late st Contact Info) Description 03/22/2024 Refill [facility] PRIMARY CARE [address] [address] Huyen Hall MD [address] [facility] 100 [place], [place] [address] Acquired hypothyroidism Social History Tobacco Use Types Packs/Day Years Used Date Smoking Tobacco: Never Smokeless Tobacco: Never Comments: smokes, for 45 years Alcohol Use Standard Drinks/Week Comments No 0 (1 standard drink = 0.6 oz pur e alcohol) [facility] Utilities Answer Date Recorded In the past 12 months has [employer], gas, oil, or water company threatened to [...] training? Not on file Preferred Language Georgian 01/11/2024 PHQ-2 Answer Date Recorded Retired PHQ-9: [...] Description 05/14/2025 1:15 PM EDT Office Visit [facility] UROLOGY 3000 [facility] [address] [place] [address] Sanam Saunders, TELETYPE ADJUSTER 1760 [facility] [address] [place] [address] 05/23/2025 1:30 PM EDT Hospital Encounter [facility] OUTPATIENT [facility]ER CENTER 1700 [facility] 1100 [place] [address] 06/03/2025 10:40 AM EDT Appointment [facility] DEXA YOEL 3084 [place] [address] 06/05/2025 10:45 AM EDT Office Visit [facility] RHEUMATOLOGY 330 [facility] 100 [place] [address] John Sheppard APRN 330 [facility] 100 [place] [address] 07/01/2025 11:00 AM EDT Office Visit [facility] UROLOGY 1760 [facility] 502 [place] [address] Brennan Lee MD 1760 [facility] 502 [place] [address] 07/16/2025 10:30 AM EDT Office Visit [facility] GASTROENTEROLOGY 1720 [facility] 302 [place] [address] Palak Graham PA-C [address] [place] [address] 07/31/2025 10:00 AM EDT Office Visit [facility] PULMONARY & CRITICAL CARE MEDICINE 3000 [facility] [address] [place] [address] Maxine Gibson, PARVIZ [address] [place] [phone] documented as of this encounter Goals Goal [...] Time PHQ-2 Depression Total Score: 2 03/08/20 24 11:01 AM EDT documented as of this encounter Care Teams Coldfusion Relationship Specialty Start Date End Date Reza Panchal MD [address] [place] [address] PCP - General Family Medicine 09/30/24 documented as of this encounter
--- OUTSIDE RECORDS SUMMARY | 2025-05-12 12:03 | XMS_ITS | Encounter Summary ---
[facility] Address [address] [place] [address] Care Team Providers Care Rolled Gold Plater Name Role Phone Reza Panchal MD Primary Care Provider +1- [phone] Encounter Details Date Type Department Care Team (Late st Contact Info) Description 05/07/2025 Results Follow-Up [facility] AT [address] [place] [address] Palak Graham, PAArnaldoC [address] [place] [address] Social History Tobacco Use Types Packs/Day Years Used Date Smoking Tobacco: Never Passive Smoke Exposure: Past Smokeless Tobacco: Never Comments: smokes, for 45 years Alcohol Use Standard Drinks/Week Comments No 0 (1 standard drink = 0.6 oz pur e alcohol) [facility] Utilities Answer Date Recorded In the past 12 months has [employer] electric, gas, oil, or water company threatened to shut off services in your home? No 01/11/2024 AUDIT-C Answer Date Recorded Q1: How often do you have a drink containing alcohol? Never 01/11/2024 Q2: How many drinks containi ng alcohol do you have on a typical day when you are drinking? Patient does not drink 03/28/202 4 Q3: How often do you have si [...] encounter Miscellaneous Notes * Telephone Encounter - Denisse Frederick MA - 05/12/2025 11:42 AM EDT Can you send in rx for voqezna 10mg to [facility] ? Thanks * Telephone Encounter - Sherrell Orozco MA - 05/07/2025 8:36 AM EDT Results sent via [employer] documented in this encounter Plan of Treatment Upcoming Encounters Date Type Department Care Team (Late st Contact Info) Description 05/14/2025 1:15 PM EDT Office Visit [facility] UROLOGY 3000 [facility] 340 [place] [address] Sanam Saundesr, EDITOR MAGAZINE 1760 [facility] [address] [place] [address] 05/23/2025 1:30 PM EDT Hospital Encounter [facility] OUTPATIENT ONCOLOGY CANCER CENTER 1700 [facility] 1100 [place] [address] 06/03/2025 10:40 AM EDT Appointment [facility] DEXA YOEL [address] [place] [phone] 06/05/2025 10:45 AM EDT Office Visit [facility] RHEUMATOLOGY 330 [facility] 100 [place] [address] John Sheppard, EDITOR MAGAZINE [address] [facility] 100 [place] [address] 07/01/2025 11:00 AM EDT Office Visit [facility] UROLOGY 1760 [facility] 502 [place] [address] Brennan Lee MD 1760 [facility] 502 [place] [address] 07/16/2025 10:30 AM EDT Office Visit [facility] GASTROENTEROLOGY 1720 [facility] 302 [place] [address] Palak Graham PA-C 1720 [facility] [address] [place] [address] 07/31/2025 10:00 AM EDT Office Visit [facility] PULMONARY & CRITICAL CARE MEDICINE 3000 [facility] 240 [place] [address] Maxine Gibson, EDITOR MAGAZINE [address]00 [place] [address] documented as of this encounter Goals Goal [...] Skin Clean and Dry Patient Goals No [place], Nathalia, RN Note: Follow Up Date - [...] documented as of this encounter Care Teams Rolled Gold Plater Relationship Specialty Start Date End Date Reza Panchal MD [facility] [place] [address] PCP - General Family Medicine 09/30/24 documented as of this encounter
== END 2025-05-08 23:59 ==
LOC: LAB.DROPOF 05-12 11:59
PROVIDERS: PCP Family Medicine; Visit Provider Family Medicine
DX: N39.0 Urinary tract infection, site not specified (principal)
CPT/HCPCS: 87086; 87088; 87186

== ENCOUNTER 2025-05-25 06:17 | Inpatient (IN) | payer MEDICARE, MEDICAID, SELFPAY ==
--- OUTSIDE RECORDS SUMMARY | 2017-02-08 12:08 | XMS_ITS | Encounter Summary ---
[facility] Address [address] [place] [address] Care Team Providers Care Utility Appraiser Name Role Phone Lizbeth Ibarra MD Primary Care Provider Unav ailable Encounter Details Date Type Department Care Team (Late st Contact Info) Description 02/08/2017 12:08 PM EDT Hospital Encounter [facility] PULMONARY & CRITICAL CARE MEDICINE [address] [place] [phone] Social History Tobacco Use Types Packs/Day Years Used Date Smoking Tobacco: Never Passive Smoke Exposure: Past Smokeless Tobacco: Never Comments: smokes, for 45 years Alcohol Use Standard Drinks/Week Comments No 0 (1 standard drink = 0.6 oz pur e alcohol) [facility] Utilities Answer Date Recorded In the past 12 months has [employer], gas, oil, or water [employer] threatened to shut off services in your [...] or training? Not on file Preferred Language Austrian 01/28/2025 PHQ-2 Answer Date Recorded Retired PHQ-9: [...] No 02/20/2025 7:09 AM EDT Dary Benites, SRAVANI 2. Non-Specific Active Suici mack Thoughts (Past 1 Month) No 02/20/2025 7:09 AM EDT Deana Benites RN * Calculated C-SSRS Risk Score (Lifetime/Recent) Answer Date of Assessment Author No Risk Indicated 02/20/2025 7:09 AM EDT Dary Chapin RN * [place] Suicide Severity Rating Scale (Screener/Recent Self-Report) Question Answer Date of Assessment Author 6. Suicidal Behavior (Lifetime) No 7:09 AM EDT Dary Benites, SRAVANI documented as of this encounter Plan of Treatment Upcoming Encounters Date Type Department Care Team (Late st Contact Info) Description 06/03/2025 10:40 AM EDT Appointment [address] [phone] 06/05/2025 10:45 AM EDT Office Visit [facility] RHEUMATOLOGY [address] [phone] John Sheppard, STEAM CLEAN MACHINE OPERATOR [address] [address] 06/13/2025 10:00 AM EDT Office Visit [facility] UROLOGY [address] [address] Sanam Saunders, STEAM CLEAN MACHINE OPERATOR [address] [address] 07/01/2025 11:00 AM EDT Office Visit [facility] UROLOGY [address] [address] Brennan Lee MD [address] [id number] 07/16/2025 10:30 AM EDT Office Visit [facility] GASTROENTEROLOGY [address] [facility] [address] [place] [phone] Palak Graham PA-C [address] [place] [address] 07/18/2025 11:30 AM EDT Appointment [facility] OUTPATIENT ONCOLOGY [address] [place] [address] 07/31/2025 10:00 AM EDT Office Visit [facility] PULMONARY & CRITICAL CARE MEDICINE 3000 [facility] [address] [place] [address] Maxine Gibson, STEAM CLEAN MACHINE OPERATOR [address] [place] [id number] documented as of this encounter Goals Goal Patient Goal Type Associated Problems Recent Progress Patient-Stated? Author Track and Manage My Blood Pressure Patient Goals No Nathalia Phelan, RN Note: Follow Up Date - not [...] Clean and Dry Patient Goals No Nathalia Phelan, RN Note: Follow Up Date - clean and dry skin well Why is this important? Leaking urine (pee) can cause soreness from skin rashes and redness. This is caused by skin being exposed to urine (pee). Notes: Track and Manage My Symptoms Patient Goals No [place], Nathalia, SRAVANI Note: Follow Up Date - not discussed [...] documented as of this encounter Care Teams Utility Appraiser Relationship Specialty Start Date End Date Lizbeth Ibarra MD PCP - General 06/18/15 07/10/17 documented as of this encounter
--- OUTSIDE RECORDS SUMMARY | 2017-02-08 12:08 | XMS_ITS | Encounter Summary ---
[facility] Address [address] [place] [address] Care Team Providers Care Material Scheduler Name Role Phone Lizbeth Ibarra MD Primary Care Provider Unav ailable Encounter Details Date Type Department Care Team (Late st Contact Info) Description 02/08/2017 12:08 PM EDT Hospital Encounter [facility] PULMONARY & CRITICAL CARE MEDICINE 2400 [place] [phone] Social History Tobacco Use Types Packs/Day Years Used Date Smoking Tobacco: Never Passive Smoke Exposure: Past Smokeless Tobacco: Never Comments: smokes, for 45 years Alcohol Use Standard Drinks/Week Comments No 0 (1 standard drink = 0.6 oz pur e alcohol) [facility] Utilities Answer Date Recorded In the past 12 months has [employer], gas, oil, or water [employer] threatened to shut off services in your [...] or training? Not on file Preferred Language Scottish 01/28/2025 PHQ-2 Answer Date Recorded Retired PHQ-9: [...] 7:09 AM EDT Dary Chapin RN * [place] Suicide Severity Rating Scale (Screener/Recent Self-Report) Question Answer Date of Assessment Author 6. Suicidal Behavior (Lifetime) No 7:09 AM EDT Dary Benites, SRAVANI documented as of this encounter Plan of Treatment Upcoming Encounters Date Type Department Care Team (Late st Contact Info) Description 06/03/2025 10:40 AM EDT Appointment [address] [phone] 06/05/2025 10:45 AM EDT Office Visit [facility] RHEUMATOLOGY [address] [phone] John Sheppard, CORE LOADER [address] [address] 06/13/2025 10:00 AM EDT Office Visit [facility] UROLOGY [address] [address] Sanam Saunders, CORE LOADER [address] [address] 07/01/2025 11:00 AM EDT Office Visit [facility] UROLOGY [address] [address] Brennan Lee MD [address] [phone] 07/16/2025 10:30 AM EDT Office Visit [facility] GASTROENTEROLOGY 1720 [facility] 302 [place] [phone] Palak Graham PA-C [address] [place] [address] 07/18/2025 11:30 AM EDT Appointment [facility] OUTPATIENT ONCOLOGY 1740 [place] [address] 07/31/2025 10:00 AM EDT Office Visit [facility] PULMONARY & CRITICAL CARE MEDICINE 3000 [facility] 240 [place] [address] Maxine Gibson, CORE LOADER [address] [place] [phone] documented as of this encounter Goals Goal [...] and Manage My Symptoms Patient Goals No [place], Nathalia, SRAVANI Note: Follow Up Date - [...] documented as of this encounter Care Teams Material Scheduler Relationship Specialty Start Date End Date Lizbeth Ibarra MD PCP - General 06/18/15 07/10/17 documented as of this encounter
--- OUTSIDE RECORDS SUMMARY | 2022-02-25 11:00 | XMS_ITS | Encounter Summary ---
Author Organization [facility] Address [address] [place] [address] Care Team Providers Care Sales Representative Publications Name Role Phone Johanna Jeffrey MD Primary Care Provider +1- [phone] Reason for Visit * Monitoring (Routine) - Closed Specialty Diagnoses / Procedures Referred By Tia t Referred To Contact Diagnoses Palpitations Dizziness Procedures Mobile Cardiac Outpatient Telemetry Cardiac Event Monitor Tiffany Maier MD [address] [place] [address] Phone: tel: fax: [facility] [address] [facility] [address] [facility] 100 [place] [address] Phone: tel: Referral ID Status Reason Start Date Expiration Date Visits Re quested Visits Authorized [id number] Closed 02/25/2022 02/25/2023 1 1 Encounter Details Date Type Department Care Team (Late st Contact Info) Description 02/25/2022 11:00 AM EDT Hospital Encounter [facility] CARDIOLOGY [address] [place] [phone] Palpitations; Dizziness Social History Tobacco Use Types Packs/Day Years Used Date Smoking Tobacco: Never Passive Smoke Exposure: Past Smokeless Tobacco: Never Comments: smokes, for 45 years Alcohol Use Standard Drinks/Week Comments No 0 (1 standard drink = 0.6 oz pur e alcohol) [facility] Utilities Answer Date Recorded In the past 12 months has e electric, [employer], oil, or water [employer] threatened to shut off services in your [...] or training? Not on file Preferred Language Upper Sorbian 01/28/2025 PHQ-2 Answer Date Recorded Retired PHQ-9: [...] Risk Indicated 02/20/2025 7:09 AM EDT Dary Flores RN * [place] Suicide Severity Rating Scale (Screener/Recent Self-Report) Question Answer Date of Assessment Author 6. Suicidal Behavior (Lifetime) No 7:09 AM EDT Dary Benites RN documented as of this encounter Plan of Treatment Upcoming Encounters Date Type Department Care Team (Late st Contact Info) Description 06/03/2025 10:40 AM EDT Appointment [address] [address] 06/05/2025 10:45 AM EDT Office Visit [facility] MEDICAL [facility] RHEUMATOLOGY [address] [phone] John Sheppard APRN [address] [address] 06/13/2025 10:00 AM EDT Office Visit [facility] UROLOGY [address] [facility] 502 [place] [address] Sanam Saunders APRN [address]60 [facility] [address] [place] [address] 07/01/2025 11:00 AM EDT Office Visit [facility] UROLOGY [address] [facility] 502 [place] [address] Brennan Lee MD [address] [facility] 502 [place] [address] 07/16/2025 10:30 AM EDT Office Visit [facility] GASTROENTEROLOGY [address] [facility] 302 [place] [phone] Palak Graham PA-C 1720 [facility] 302 [place] [address] 07/18/2025 11:30 AM EDT Appointment [facility] OUTPATIENT ONCOLOGY 1740 [place] [address] 07/31/2025 10:00 AM EDT Office Visit [facility] PULMONARY & CRITICAL CARE MEDICINE 3000 [facility] 240 [place] [address] Maxine Gibson, TUFTING MACHINE FIXER 2400 [place] [address] documented as of this encounter Goals Goal [...] 21 hours and 51 minutes. Total beats: [id number]. Average HR: 83. Min HR: 48. Max [...] documented as of this encounter Care Teams Sales Representative Publications Relationship Specialty Start Date End Date Johanna Jeffrey MD Mike GOODWIN [address] [place] [address] PCP - General Internal Medicine 10/20/21 08/20/22 documented as of this encounter
--- OUTSIDE RECORDS SUMMARY | 2022-02-25 11:00 | XMS_ITS | Encounter Summary ---
Author Organization [facility] Address [address] [place] [address] Care Team Providers Care Television Production Clerk Name Role Phone Johanna Jeffrey MD Primary Care Provider +1- [phone] Reason for Visit * Monitoring (Routine) - Closed Specialty Diagnoses / Procedures Referred By Tia t Referred To Contact Diagnoses Palpitations Dizziness Procedures Mobile Cardiac Outpatient Telemetry Cardiac Event Monitor Tiffany Maier MD [address] [place] [address] Phone: tel: fax: [facility] [address] [facility] [address] [facility] 100 [place] [address] Phone: tel: Referral ID Status Reason Start Date Expiration Date Visits Re quested Visits Authorized [id number] Closed 02/25/2022 02/25/2023 1 1 Encounter Details Date Type Department Care Team (Late st Contact Info) Description 02/25/2022 11:00 AM EDT Hospital Encounter [facility] CARDIOLOGY [address] [place] [phone] Palpitations; Dizziness Social History Tobacco Use Types Packs/Day Years Used Date Smoking Tobacco: Never Passive Smoke Exposure: Past Smokeless Tobacco: Never Comments: smokes, for 45 years Alcohol Use Standard Drinks/Week Comments No 0 (1 standard drink = 0.6 oz pur e alcohol) [facility] Utilities Answer Date Recorded In the past 12 months has e electric, [employer], oil, or water [employer] threatened to shut off services in your [...] 7:09 AM EDT Dary Flores RN * [place] Suicide Severity Rating Scale (Screener/Recent Self-Report) Question Answer Date of Assessment Author 6. Suicidal Behavior (Lifetime) No 7:09 AM EDT Dary Benites RN documented as of this encounter Plan of Treatment Upcoming Encounters Date Type Department Care Team (Late st Contact Info) Description 06/03/2025 10:40 AM EDT Appointment [address] [address] 06/05/2025 10:45 AM EDT Office Visit [facility] MEDICAL [facility] RHEUMATOLOGY [address] [phone] John Sheppard APRN [address] [address] 06/13/2025 10:00 AM EDT Office Visit [facility] UROLOGY 1760 [facility] 502 [place] [address] Sanam Saunders APRN 1760 [facility] [address] [place] [address] 07/01/2025 11:00 AM EDT Office Visit [facility] UROLOGY [address]60 [facility] 502 [place] [address] Brennan Lee MD [address]60 [facility] 502 [place] [address] 07/16/2025 10:30 AM EDT Office Visit [facility] GASTROENTEROLOGY 1720 [facility] 302 [place] [phone] Palak Graham PA-C 1720 [facility] 302 [place] [address] 07/18/2025 11:30 AM EDT Appointment [facility] OUTPATIENT ONCOLOGY 1740 [place] [address] 07/31/2025 10:00 AM EDT Office Visit [facility] PULMONARY & CRITICAL CARE MEDICINE 3000 [facility] 240 [place] [phone] Maxine Gibson, CLAY BURNER [address] [place] [address] documented as of this encounter Goals Goal [...] 21 hours and 51 minutes. Total beats: [id number]. Average HR: 83. Min HR: 48. Max [...] as of this encounter Care Teams Television Production Clerk Relationship Specialty Start Date End Date Johanna Jeffrey MD Mike GOODWIN [address] [place] [address] PCP - General Internal Medicine 10/20/21 08/20/22 documented as of this encounter
--- OUTSIDE RECORDS SUMMARY | 2024-04-23 19:45 | XMS_ITS | Encounter Summary ---
[facility] [address] [place] [address] Care Team Providers Care Bilingual Inside Sales Representative Name Role Phone Rafael Pal MD, Huyen Primary Care Provider [phone] Reason for Referral * Hospital - Outpatient [...] or More Parameters Ijeoma Payne APRN [address] [place] [address] Phone: tel: fax: [facility] [address] [address] Phone: tel: fax: Referral ID Status Reason Start Date Expiration Date Visits Re quested Visits Authorized [id number] Closed 12/19/2023 12/18/2024 1 1 Reason for [...] or More Parameters Ijeoma Payne, PARVIZ [address] [facility] [address] Phone: tel: fax: [facility] [address] [address] Phone: tel: fax: Referral ID Status Reason Start Date Expiration Date Visits Re quested Visits Authorized [id number] Closed 12/19/2023 12/18/2024 1 1 Encounter Details Date Type Department Care Team (Late st Contact Info) Description 04/23/2024 7:45 PM EDT Hospital Encounter [facility] [address] [place] [address] Ijeoma Payne, PARVIZ [address] [place] [address] Dementia, unspecified dementia severity, unspecified dementia type, [...] drink = 0.6 oz pur e alcohol) [facility] Utilities Answer Date Recorded In the past 12 months has [employer], gas, oil, or water [employer] threatened to shut off services in your [...] or training? Not on file Preferred Language Kyrgyz 01/28/2025 PHQ-2 Answer Date Recorded Retired PHQ-9: [...] 7:09 AM EDT Dary Chapin RN * [place] Suicide Severity Rating Scale (Screener/Recent Self-Report) Question Answer Date of Assessment Author 6. Suicidal Behavior (Lifetime) No 7:09 AM EDT Dary Benites, SRAVANI documented as of this encounter Plan of Treatment Upcoming Encounters Date Type Department Care Team (Late st Contact Info) Description 06/03/2025 10:40 AM EDT Appointment [facility] D[facility]A [facility] [address] [place] [address] 06/05/2025 10:45 AM EDT Office Visit [facility] R[facility]OLOG[facility] 330 [facility] 100 [place] [address] John Sheppard APRN 330 [facility] 100 [place] [address] 06/13/2025 10:00 AM EDT Office Visit [facility] UROLOGY 1760 [facility] 502 [place] [address] Sanam Saunders APRN 1760 [facility] [address] [place] [address] 07/01/2025 11:00 AM EDT Office Visit [facility] UROLOGY 1760 [facility] 502 [place] [address] Brennan Lee MD 1760 [facility] 502 [place] [address] 07/16/2025 10:30 AM EDT Office Visit [facility] GASTROENTEROLOGY 1720 [facility] 302 [place] [address] Palak Graham PA-C 1720 [facility] 302 [place] [address] 07/18/2025 11:30 AM EDT Appointment [facility] OUTPATIENT ONCOLOGY [address] [place] [address] 07/31/2025 10:00 AM EDT Office Visit [facility] PULMONARY & CRITICAL CARE MEDICINE 3000 [facility] 240 [place] [phone] Maxine Gibson, IMAGING ASSISTANT [address] [place] [address] documented as of this encounter Goals Goal [...] Procedure Name Priority Date/Time Associated Diagnosis Comments [facility] Routine 04/24/2024 5:23 AM EDT Dementia, unspecified [...] agree with the interpretation. Braden To MD, [facility] Critical care and Sleep medicine [...] Daniel Stoke respirations: None. 8. Bruxism: None. us Ijeoma Payne IMAGING ASSISTANT SLEEP CENTER ORDERABLES Fin al Result SLEEP [...] documented as of this encounter Care Teams Bilingual Inside Sales Representative Relationship Specialty Start Date End Date Huyen Hall MD [address] [place] [address] PCP - General Family Medicine 08/21/22 07/25/24 documented as of this encounter
--- OUTSIDE RECORDS SUMMARY | 2024-04-23 19:45 | XMS_ITS | Encounter Summary ---
[facility] Address [address] [place] [address] Care Team Providers Care Maintenance Of Way Foreman Name Role Phone Rafael Pal MD, Huyen Primary Care Provider [phone] Reason for Referral * Hospital - Outpatient [...] or More Parameters Ijeoma Payne APRN [address] [place] [address] Phone: tel: fax: [facility] [address] [address] Phone: tel: fax: Referral ID Status Reason Start Date Expiration Date Visits Re quested Visits Authorized [id number] Closed 12/19/2023 12/18/2024 1 1 Reason for [...] or More Parameters Ijeoma Payne, PARVIZ 1720 [facility] [address] [address] Phone: tel: fax: [facility] [address] [address] Phone: tel: fax: Referral ID Status Reason Start Date Expiration Date Visits Re quested Visits Authorized [id number] Closed 12/19/2023 12/18/2024 1 1 Encounter Details Date Type Department Care Team (Late st Contact Info) Description 04/23/2024 7:45 PM EDT Hospital Encounter [facility] [address] [place] [address] Ijeoma Payne, PARVIZ [address] [place] [address] Dementia, unspecified dementia severity, unspecified dementia type, [...] drink = 0.6 oz pur e alcohol) [facility] Utilities Answer Date Recorded In the past 12 months has [email or web address], gas, oil, or water [email or web address] threatened to shut off services in your [...] 7:09 AM EDT Dary Chapin RN * [place] Suicide Severity Rating Scale (Screener/Recent Self-Report) Question Answer Date of Assessment Author 6. Suicidal Behavior (Lifetime) No 7:09 AM EDT Dary Benites, SRAVANI documented as of this encounter Plan of Treatment Upcoming Encounters Date Type Department Care Team (Late st Contact Info) Description 06/03/2025 10:40 AM EDT Appointment [facility] DEXA YOEL [address] [place] [address] 06/05/2025 10:45 AM EDT Office Visit [facility] RHEUMATOLOGY 330 [facility] 100 [place] [address] John Sheppard APRN 330 [facility] 100 [place] [address] 06/13/2025 10:00 AM EDT Office Visit [facility] UROLOGY [address] [facility] [address] [place] [address] Sanam Saunders APRN 1760 [facility] [address] [place] [address] 07/01/2025 11:00 AM EDT Office Visit [facility] UROLOGY [address] [facility] [address] [place] [address] Brennan Lee MD [address] [facility] [address] [place] [address] 07/16/2025 10:30 AM EDT Office Visit [facility] GASTROENTEROLOGY [address] [facility] [address] [place] [address] Palak Graham PA-C 1720 [facility] [address] [place] [address] 07/18/2025 11:30 AM EDT Appointment [facility] OUTPATIENT ONCOLOGY [address]40 [place] [address] 07/31/2025 10:00 AM EDT Office Visit [facility] PULMONARY & CRITICAL CARE MEDICINE 3000 [facility] [address] [place] [address] Maxine Gibson, PLATE MAKER [address]00 [place] [address] documented as of this encounter Goals Goal [...] Procedure Name Priority Date/Time Associated Diagnosis Comments [facility] Routine 04/24/2024 5:23 AM EDT Dementia, unspecified [...] agree with the interpretation. Braden To MD, [facility] Pul[facility] Critical care and Sleep medicine [...] None. 8. Bruxism: None. us Ijeoma Payne PLATE MAKER SLEEP CENTER ORDERABLES Fin al Result SLEEP [...] documented as of this encounter Care Teams Maintenance Of Way Foreman Relationship Specialty Start Date End Date Huyen Hall MD [address] [place] [address] PCP - General Family Medicine 08/21/22 07/25/24 documented as of this encounter
--- OUTSIDE RECORDS SUMMARY | 2025-03-26 10:10 | XMS_ITS | Encounter Summary ---
Author Organization [facility] Address [address] [place] [address] Care Team Providers Care Graphic User Interface Designer Name Role Phone Reza Panchal MD Primary Care Provider +1- [phone] Reason for Visit * Reason Comments Erythema Encounter Details Date Type Department Care Team (Late st Contact Info) Description 03/26/2025 10:10 AM EDT Office Visit [facility] UROLOGY [address] [place] [address] Brennan Lee MD [address] [place] [address] OAB (overactive bladder) (Primary Dx); Urge incontinence; Lower urinary tract symptoms (LUTS) Social History Tobacco Use Types Packs/Day Years Used Date Smoking Tobacco: Never Passive Smoke Exposure: Past Smokeless Tobacco: Never Tobacco Cessation:Counseling Given: No Comments: smokes, for 45 years Alcohol Use Standard Drinks/Week Comments No 0 (1 standard drink = 0.6 oz pur e alcohol) [facility] Utilities Answer Date Recorded In the past 12 months has [employer], gas, oil, or water company threatened to [...] or training? Not on file Preferred Language Afghan 01/28/2025 PHQ-2 Answer Date Recorded Retired PHQ-9: [...] mouth Daily., Disp: 90 tablet, Rfl: 3 mlvuocqk-rosfgwqon-kgckxcwuxwgpuokram (POLYDEX) 3.5-39935-9.1 ointment ophthalmic ointment, APPLY SMALL AMOUNT INSIDE [...] and completing patient documentation. Brennan Lee MD [facility] Urology [place] documented in this encounter Plan of Treatment Upcoming Encounters Date Type Department Care Team (Late st Contact Info) Description 06/03/2025 10:40 AM EDT Appointment [address] [address] 06/05/2025 10:45 AM EDT Office Visit [facility] RHEUMATOLOGY [address] [address] John Sheppard, TELEVISION EQUIPMENT OPERATOR [address] [address] 06/13/2025 10:00 AM EDT Office Visit [facility] UROLOGY [address] [address] Sanam Saunders, TELEVISION EQUIPMENT OPERATOR [address] [facility] [address] [place] [address] 07/01/2025 11:00 AM EDT Office Visit [facility] UROLOGY [address] [phone] Brennan Lee MD [address] [address] 07/16/2025 10:30 AM EDT Office Visit [facility] GASTROENTEROLOGY [address] [place] [address] Palak Graham PA-C [address] [place] [address] 07/18/2025 11:30 AM EDT Appointment [facility] OUTPATIENT ONCOLOGY [address] [place] [address] 07/31/2025 10:00 AM EDT Office Visit [facility] PULMONARY & CRITICAL CARE MEDICINE [address] [facility] [address] [place] [address] Maxine Gibson, PARVIZ [address] [place] [address] documented as of this encounter Goals Goal [...] documented as of this encounter Care Teams Graphic User Interface Designer Relationship Specialty Start Date End Date Reza Panchal MD [facility] [place] [address] PCP - General Family Medicine 09/30/24 documented as of this encounter
--- OUTSIDE RECORDS SUMMARY | 2025-03-28 12:35 | XMS_ITS | Encounter Summary ---
[facility] Address [address] [place] [address] Care Team Providers Care Pressure Supervisor Name Role Phone Reza Panchal MD Primary Care Provider +1- [phone] Reason for Visit * Episode Based Medications (Routine) - Closed Specialty Diagnoses / Procedures Referred By Tia holman Referred To Contact Diagnoses Rheumatoid arthritis involving multiple sites with positive rheumatoid factor Procedures [place] GOLIMUMAB FOR IV USE 1MG Patrice Santana DO [address] [place] [address] Phone: tel: fax: [facility] OUTPATIENT ONCOLOGY [address] [place] [address] Phone: tel: fax: Referral ID Status Reason Start Date Expiration Date Visits Re quested Visits Authorized [id number] Closed 05/06/2024 05/06/2025 1 1 Encounter Details Date Type Department Care Team (Latest Contact Info) Description 03/28/2025 12:35 PM EDT - 03/28/2025 11:59 PM EDT Hospital Encounter [facility] OUTPATIENT ONCOLOGY [address] [place] [address] Patrice Santana DO [address] [place] [id number] Rheumatoid arthritis involving multiple sites with positive rheumatoid factor (Primary Dx) Discharge Disposition: Home or Self Care Social History Tobacco Use Types Packs/Day Years Used Date Smoking Tobacco: Never Passive Smoke Exposure: Past Smokeless Tobacco: Never Comments: smokes, for 45 years Alcohol Use Standard Drinks/Week Comments No 0 (1 standard drink = 0.6 oz pur e alcohol) [facility] Utilities Answer Date Recorded In the past 12 months has th e [employer], gas, oil, or water company threatened to [...] for Nausea or Vomiting. 30 tablet 05/02/2024 potassium chloride (KLOR-CON M10) 10 MEQ CR [...] 3 01/28/2025 04/29/20 25 neomycin-polymyxin- dexamethamethasone (POLYDEX) 3.5-61696-3.1 ointment ophthalmic ointment APPLY SMALL AMOUNT INSIDE RIGHT EYE TWICE DAILY UNTIL NEXT APPT 10/28/2024 04/29/20 25 pantoprazole (PROTONIX) 40 MG EC tablet Take 1 tablet by mouth 2 (Two) Times a Day. 180 tablet 3 07/01/2024 05/12/20 25 potassium chloride 10 MEQ CR tablet Take 1 tablet by mouth Daily With Breakfast. 04/29/20 25 documented as of this encounter Plan of Treatment Upcoming Encounters Date Type Department Care Team (Late st Contact Info) Description 06/03/2025 10:40 AM EDT Appointment [facility] [address] [phone] 06/05/2025 10:45 AM EDT Office Visit [facility] RHEUMATOLOGY [address] [facility] 100 [place] [address] John Sheppard APRN 330 [facility] 100 [place] [address] 06/13/2025 10:00 AM EDT Office Visit [facility] UROLOGY [address] [place] [address] Sanam Saunders, PARVIZ [address] [facility] [address] [place] [address] 07/01/2025 11:00 AM EDT Office Visit [facility] UROLOGY [address]60 [facility] 502 [place] [address] Brennan Lee MD [address] [facility] 502 [place] [address] 07/16/2025 10:30 AM EDT Office Visit [facility] GASTROENTEROLOGY [address]20 [facility] 302 [place] [address] Palak Graham PA-C 1720 [facility] 302 [place] [address] 07/18/2025 11:30 AM EDT Appointment [facility] OUTPATIENT ONCOLOGY [address]40 [place] [address] 07/31/2025 10:00 AM EDT Office Visit [facility] PULMONARY & CRITICAL CARE MEDICINE 3000 [facility] 240 [place] [address] Maxine Gibson, CAMP ATTENDANT [address] [place] [address] documented as of this encounter Goals Goal [...] documented as of this encounter Care Teams Pressure Supervisor Relationship Specialty Start Date End Date Reza Panchal MD [facility] [place] [address] PCP - General Family Medicine 09/30/24 documented as of this encounter
--- OUTSIDE RECORDS SUMMARY | 2025-03-28 12:35 | XMS_ITS | Encounter Summary ---
[facility] Organization [facility] Address [address] [place] [address] Care Team Providers Care Supersonic Engineer Name Role Phone Reza Panchal MD Primary Care Provider +1- [phone] Reason for Visit * Episode Based Medications (Routine) - Closed Specialty Diagnoses / Procedures Referred By Tia holman Referred To Contact Diagnoses Rheumatoid arthritis involving multiple sites with positive rheumatoid factor Procedures MA GOLIMUMAB FOR IV USE 1MG Patrice Santana DO [address] [place] [address] Phone: tel: fax: [facility] OUTPATIENT ONCOL[facility]Y [address] [place], [place] [address] Phone: tel: fax: Referral ID Status Reason Start Date Expiration Date Visits Re quested Visits Authorized [id number] Closed 05/06/2024 05/06/2025 1 1 Encounter Details Date Type Department Care Team (Latest Contact Info) Description 03/28/2025 12:35 PM EDT - 03/28/2025 11:59 PM EDT Hospital Encounter [facility] [address] [place] [address] Patrice Santana DO [address] [place] [id number] Rheumatoid arthritis involving multiple sites with positive rheumatoid factor (Primary Dx) Discharge Disposition: Home or Self Care Social History Tobacco Use Types Packs/Day Years Used Date Smoking Tobacco: Never Passive Smoke Exposure: Past Smokeless Tobacco: Never Comments: smokes, for 45 years Alcohol Use Standard Drinks/Week Comments No 0 (1 standard drink = 0.6 oz pur e alcohol) [facility] Utilities Answer Date Recorded In the past 12 months has th e [employer], gas, oil, or water company threatened to [...] 3 01/28/2025 04/29/20 25 neomycin-polymyxin- dexamethamethasone (POLYDEX) [id number] ointment ophthalmic ointment APPLY SMALL AMOUNT INSIDE [...] Info) Description 06/03/2025 10:40 AM EDT Appointment [facility] [address] [phone] 06/05/2025 10:45 AM EDT Office Visit [facility] RHEUMATOLOGY [address] [facility] [place] [address] [place] [phone] John Sheppard APRN [address] [facility] [address] [place] [address] 06/13/2025 10:00 AM EDT Office Visit [facility] UROLOGY [address] [place] [address] Sanam Saunders, PARVIZ [address] [facility] [address] [place] [address] 07/01/2025 11:00 AM EDT Office Visit [facility] UROLOGY [address] [facility] [address] [place] [address] Brennan Lee MD [address] [facility] [address] [place] [address] 07/16/2025 10:30 AM EDT Office Visit [facility] GASTROENTEROLOGY [address] [facility] [address] [place] [phone] Palak Graham PA-C [address] [facility] [address] [place] [address] 07/18/2025 11:30 AM EDT Appointment [facility] OUTPATIENT [facility]COL[facility]Y [address] [place] [address] 07/31/2025 10:00 AM EDT Office Visit [facility] PULMONARY & CRITICAL CARE MEDICINE [address] [facility] [address] [place] [phone] Maxine Gibson, TOURS CAPTAIN [address] [place] [address] documented as of this encounter Goals Goal [...] documented as of this encounter Care Teams Supersonic Engineer Relationship Specialty Start Date End Date Reza Panchal MD [facility] [place] [address] PCP - General Family Medicine 09/30/24 documented as of this encounter
--- OUTSIDE RECORDS SUMMARY | 2025-04-29 09:30 | XMS_ITS | Encounter Summary ---
Author Organization [facility] Address [address] [place] [address] Care Team Providers Care Tourist Escort Name Role Phone Reza Panchal MD Primary Care Provider +1- [phone] Reason for Visit * Reason Comments Sleep Apnea Follow up Encounter Details Date Type Department Care Team (Late st Contact Info) Description 04/29/2025 9:30 AM EDT Office Visit [facility] PULMONARY & CRITICAL CARE MEDICINE [address] [facility] [address] [place] [address] Maxine Gibson, GLOBAL SALES MANAGER [address] [place] [address] Seasonal allergic rhinitis due to pollen (Primary [...] = 0.6 oz pur e alcohol) [facility] Utilities Answer Date Recorded In the past 12 months has [employer] electric, gas, oil, or water company threatened [...] or training? Not on file Preferred Language Bangladeshi 01/28/2025 PHQ-2 Answer Date Recorded Retired PHQ-9: [...] Everywhere. * GERD in Adults: Diet Changes (Bangladeshi) documented in this encounter Progress Notes * Maxine Gibson APRN - 04/29/2025 9:30 AM EDT [facility] Follow up CHIEF COMPLAINT fatigue HISTORY OF PRESENT ILLNESS Madison Castellanos is a 69 y.o.female here today for follow-up. She was last seen in the office by me in January. She was recently discharged from [facility] yesterday for aspiration pneumonia and sepsis. [...] Info) Description 06/03/2025 10:40 AM EDT Appointment [facility] [address] [place] [address] 06/05/2025 10:45 AM EDT Office Visit [facility] RHEUMATOLOGY [address] [place] [address] John Sheppard APRN [address] [place] [address] 06/13/2025 10:00 AM EDT Office Visit [facility] UROLOGY [address] [facility] [address] [place] [address] Sanam Saunders, GLOBAL SALES MANAGER [address] [facility] [address] [place], [place] [id number] 07/01/2025 11:00 AM EDT Office Visit [facility] UROLOGY [address] [facility] [address] [place] [address] Brennan Lee MD [address] [facility] [address] [place] [address] 07/16/2025 10:30 AM EDT Office Visit [facility] GASTROENTEROLOGY [address] [facility] [address] [place] [phone] Palak Graham, PAArnaldoC 1720 [facility] [address] [place] [address] 07/18/2025 11:30 AM EDT Appointment [facility] OUTPATIENT ONCOLOGY [address] [place] [address] 07/31/2025 10:00 AM EDT Office Visit [facility] PULMONARY & CRITICAL CARE MEDICINE [address] [facility] [address] [place] [phone] Maxine Gibson, GLOBAL SALES MANAGER [address] [place] [address] documented as of this encounter Goals Goal [...] documented as of this encounter Care Teams Tourist Escort Relationship Specialty Start Date End Date Reza Pacnhal MD [address] [place] [address] PCP - General Family Medicine 09/30/24 documented as of this encounter
--- OUTSIDE RECORDS SUMMARY | 2025-04-29 09:30 | XMS_ITS | Encounter Summary ---
Author Organization [facility] Address [address] [place] [address] Care Team Providers Care Radio Division Lieutenant Name Role Phone Reza Panchal MD Primary Care Provider +1- [phone] Reason for Visit * Reason Comments Sleep Apnea Follow up Encounter Details Date Type Department Care Team (Late st Contact Info) Description 04/29/2025 9:30 AM EDT Office Visit [facility] PULMONARY & CRITICAL CARE MEDICINE 3000 [facility] [address] [place] [address] Maxine Gibson, NUTRITION THERAPIST [address] [place] [address] Seasonal allergic rhinitis due to pollen (Primary [...] 0.6 oz pur e alcohol) [facility] Utilities Answer Date Recorded In the past 12 months has [employer] electric, gas, oil, or water company threatened [...] or training? Not on file Preferred Language Fijian 01/28/2025 PHQ-2 Answer Date Recorded Retired PHQ-9: [...] Everywhere. * GERD in Adults: Diet Changes (Fijian) documented in this encounter Progress Notes * Maxine Gibson APRN - 04/29/2025 9:30 AM EDT [facility] Pul[facility] Follow up CHIEF COMPLAINT fatigue HISTORY OF PRESENT ILLNESS Madison Castellanos is a 69 y.o.female here today for follow-up. She was last seen in the office by me in January. She was recently discharged from [facility] yesterday for aspiration pneumonia and sepsis. [...] Info) Description 06/03/2025 10:40 AM EDT Appointment [facility] [address] [place] [address] 06/05/2025 10:45 AM EDT Office Visit [facility] RHEUMATOLOGY [address] [place] [address] John Sheppard APRN [address] [place] [address] 06/13/2025 10:00 AM EDT Office Visit [facility] UROLOGY [address] [facility] [address] [place] [address] Sanam Saunders, NUTRITION THERAPIST [address]60 [facility] [address] [place], [place] [id number] 07/01/2025 11:00 AM EDT Office Visit [facility] UROLOGY [address] [facility] [address] [place] [address] Brennan Lee MD [address] [facility] [address] [place] [address] 07/16/2025 10:30 AM EDT Office Visit [facility] GASTROENTEROLOGY [address] [facility] [address] [place] [phone] Palak Graham, PAArnaldoC 1720 [facility] [address] [place] [address] 07/18/2025 11:30 AM EDT Appointment [facility] OUTPATIENT ONCOLOGY [address] [place] [phone] 07/31/2025 10:00 AM EDT Office Visit [facility] PULMONARY & CRITICAL CARE MEDICINE [address] [facility] [address] [place] [phone] Maxine Gibson, NUTRITION THERAPIST [address] [place] [address] documented as of this encounter Goals Goal [...] documented as of this encounter Care Teams Radio Division Lieutenant Relationship Specialty Start Date End Date Reza Panchal MD [address] [place] [address] PCP - General Family Medicine 09/30/24 documented as of this encounter
--- OUTSIDE RECORDS SUMMARY | 2025-05-06 10:30 | XMS_ITS | Encounter Summary ---
[facility] Address [address] [place] [address] Care Team Providers Care Sewing Machine Maintenance Mechanic Name Role Phone Reza Panchal MD Primary Care Provider +1- [phone] Reason for Referral * Diagnostic Medical (Routine) - Authorized Specialty Diagnoses / Procedures Referred By Tia holman Referred To Contact Gastroenterology Diagnoses Esophageal dysphagia Gastroesophageal reflux disease, unspecified whether esophagitis present Palak Graham PA-C [address] [facility] [address] [place] [address] Phone: tel: fax: [facility] GASTROENTEROLOGY [address] [facility] [address] [place] [phone] Phone: tel: fax: Referral ID Status Reason Start Date Expiration Date Visits Requested Visits Authorized [id number] Authorized Specialty Services Required 05/06/2025 08/05/2026 1 1 Reason for Visit * Reason Comments Gastroesophageal reflux disease, esophag itis Encounter Details Date Type Department Care Team ([facility] Contact Info) Description 05/06/2025 10:30 AM EDT Office Visit [facility] GASTROENTEROLOGY [address] [facility] [address] [place] [phone] Palak Graham PA-C [address] [place] [address] Esophageal dysphagia (Primary Dx); Gastroesophageal reflux disease, unspecified whether esophagitis present; History of Jacqui fundoplication; History of aspiration pneumonia Social History Tobacco Use Types Packs/Day Years Used Date Smoking Tobacco: Never Passive Smoke Exposure: Past Smokeless Tobacco: Never Comments: smokes, for 45 years Alcohol Use Standard Drinks/Week Comments No 0 (1 standard drink = 0.6 oz pur e alcohol) [facility] Utilities Answer Date Recorded In the past 12 months has [employer], gas, oil, or water company threatened to [...] or training? Not on file Preferred Language Syriac 01/28/2025 PHQ-2 Answer Date Recorded Retired PHQ-9: [...] hernia repair, s/p CCY. Previously followed with Grecia. Patient presents today accompanied by her granddaughter and 2 great granddaughters. Patient reportsanika was discharged from [facility] on 04/28/2025 for sepsis secondary to [...] pills, food and sometimes liquids. Last saw Claritajuan Ross for this issue about 1 year [...] details and recommendations. Colonoscopy 07/2023 Dr. Randolph: [place] Bowel Prep: 8 Moderate diverticulosis Moderately enlagred [...] Reyna 2nd Gen 32G X 4 MM mis, USE 1 NEEDLE THREE TIMES DAILY DIRECTED, [...] MD, 05/21/2011 REPLACEMENT TOTAL KNEE Left 06/15/2022 [facility] SPINAL CORD STIMULATOR IMPLANT 02/2021 SPINAL CORD [...] Fundoplication H/o aspiration pneumonia Request records from [facility] from recent visit from 04/24- 04/28/25.She [...] opinion of the practitioner. Palak Graham PA-C [facility] [place] documented in this encounter Plan of Treatment Upcoming Encounters Date Type Department Care Team (Late st Contact Info) Description 06/03/2025 10:40 AM EDT Appointment [facility] [address] [place] [address] 06/05/2025 10:45 AM EDT Office Visit [facility] RHEUMATOLOGY 330 [facility] 100 [place] [address] John Sheppard, STORAGE BATTERY CHARGER 330 [facility] 100 [place] [address] 06/13/2025 10:00 AM EDT Office Visit [facility] UROLOGY [address] [facility] 502 [place] [address] Sanam Saunders, STORAGE BATTERY CHARGER [address] [facility] [address] [place] [address] 07/01/2025 11:00 AM EDT Office Visit [facility] UROLOGY [address] [facility] 502 [place] [address] Brennan Lee MD [address] [facility] 502 [place] [address] 07/16/2025 10:30 AM EDT Office Visit [facility] GASTROENTEROLOGY [address] [facility] 302 [place] [phone] Palak Graham PA-C [address] [facility] [address] [place] [address] 07/18/2025 11:30 AM EDT Appointment [facility] OUTPATIENT ONCOLOGY [address] [place] [address] 07/31/2025 10:00 AM EDT Office Visit [facility] PULMONARY & CRITICAL CARE MEDICINE [address] [facility] [address] [place] [phone] Maxine Gibson, STORAGE BATTERY CHARGER [address] [place] [address] Scheduled Referrals Name Type Priority Associated Diagnoses [...] Skin Clean and Dry Patient Goals No aNthalia Phelan RN Note: Follow Up Date - [...] - 4.200 uIU/mL 05/06/2025 7:29 PM EDT [facility] Blood Venipuncture / Unknown 05/06/2025 12:01 PM EDT 05/06/2025 12:01 PM EDT Palak Graham PA-C LAB BLOOD ORDERABLES Final Result [facility]
[address] [place] [address], * (ABNORMAL) Comprehensive Metabolic Panel (05/06/2025 12:01 PM EDT) Glucose 150(H) 65 - 99 mg/dL 05/06/2025 7:23 PM EDT [facility] BUN 17.0 8.0 - 23.0 mg/dL 05/06/2025 7:23 PM EDT [facility] Creatinine 0.85 0.57 - 1.00 mg/dL 05/06/2025 7:23 PM EDT [facility] Sodium 141 136 - 145 mmol/L 05/06/2025 7:23 PM EDT [facility] Potassium 4.0 3.5 - 5.2 mmol/L 05/06/2025 7:23 PM EDT [facility] Chloride 101 98 - 107 mmol/L 05/06/2025 7:23 PM EDT [facility] CO2 27.3 22.0 - 29.0 mmol/L 05/06/2025 7:23 PM EDT [facility] Calcium 9.4 8.6 - 10.5 mg/dL 05/06/2025 7:23 PM EDT [facility] Total Protein 7.7 6.0 - 8.5 g/dL 05/06/2025 7:23 PM EDT [facility] Albumin 4.0 3.5 - 5.2 g/dL 05/06/2025 7:23 PM EDT [facility] ALT (SGPT) 21 1 - 33 U/L 05/06/2025 7:23 PM EDT [facility] AST (SGOT) 18 1 - 32 U/L 05/06/2025 7:23 PM EDT [facility] Alkaline Phosphatase 98 39 - 117 U/L 05/06/2025 7:23 PM EDT [facility] Total Bilirubin 0.3 0.0 - 1.2 mg/dL 05/06/2025 7:23 PM EDT [facility] Globulin 3.7 gm/dL 05/06/2025 7:23 PM EDT [facility] A/G Ratio 1.1 g/dL 05/06/2025 7:23 PM EDT [facility] BUN/Creatinine Ratio 20.0 7.0 - 25.0 05/06/2025 7:23 PM EDT [facility] Anion Gap 12.7 5.0 - 15.0 mmol/L 05/06/2025 7:23 PM [facility] eGFR 75.2 >60.0 mL/min/1.7 3 05/06/2025 7:23 PM T [facility] Blood Venipuncture / Unknown 05/06/2025 12:01 PM EDT 05/06/2025 12:01 PM EDT [facility] - 05/06/2025 7:23 PM EDT GFR [...] Graham PA-C LAB BLOOD ORDERABLES Final Result [facility]
[address] [place] [address], [place] [phone] documented in this encounter Visit Diagnoses Diagnosis [...] documented as of this encounter Care Teams Sewing Machine Maintenance Mechanic Relationship Specialty Start Date End Date Reza Panchal MD [facility] [place] [address] PCP - General Family Medicine 09/30/24 documented as of this encounter
--- OUTSIDE RECORDS SUMMARY | 2025-05-06 10:30 | XMS_ITS | Encounter Summary ---
[facility] Address [address] [place] [address] Care Team Providers Care Pipe Organ Mechanic Apprentice Name Role Phone Reza Panchal MD Primary Care Provider +1- [phone] Reason for Referral * Diagnostic Medical (Routine) - Authorized Specialty Diagnoses / Procedures Referred By Tia holman Referred To Contact Gastroenterology Diagnoses Esophageal dysphagia Gastroesophageal reflux disease, unspecified whether esophagitis present Palak Graham PA-C [address] [facility] [address] [address] Phone: tel: fax: [facility] GASTROENTEROLOGY [address]20 [facility] [place] [place] [phone] Phone: tel: fax: Referral ID Status Reason Start Date Expiration Date Visits Requested Visits Authorized [id number] Authorized Specialty Services Required 05/06/2025 08/05/2026 1 1 Reason for Visit * Reason Comments Gastroesophageal reflux disease, esophag itis Encounter Details Date Type Department Care Team ([facility] Contact Info) Description 05/06/2025 10:30 AM EDT Office Visit [facility] GASTROENTEROLOGY [address] [facility] [place] [place] [phone] Palak Graham PA-C [address] [address] Esophageal dysphagia (Primary Dx); Gastroesophageal reflux disease, unspecified whether esophagitis present; History of Jacqui fundoplication; History of aspiration pneumonia Social History Tobacco Use Types Packs/Day Years Used Date Smoking Tobacco: Never Passive Smoke Exposure: Past Smokeless Tobacco: Never Comments: smokes, for 45 years Alcohol Use Standard Drinks/Week Comments No 0 (1 standard drink = 0.6 oz pur e alcohol) [facility] Utilities Answer Date Recorded In the past 12 months has [employer], gas, oil, or water company threatened to [...] or training? Not on file Preferred Language Slovenian 01/28/2025 PHQ-2 Answer Date Recorded Retired PHQ-9: [...] great granddaughters. Patient reportsanika was discharged from [facility] on 04/28/2025 for sepsis secondary to [...] details and recommendations. Colonoscopy 07/2023 Dr. Randolph: [place] Bowel Prep: 8 Moderate diverticulosis Moderately enlagred [...] Fundoplication H/o aspiration pneumonia Request records from [facility] from recent visit from 04/24- 04/28/25.She [...] opinion of the practitioner. Palak Graham PA-C [facility] [place] documented in this encounter Plan of Treatment Upcoming Encounters Date Type Department Care Team (Late st Contact Info) Description 06/03/2025 10:40 AM EDT Appointment [facility] [address] [place] [address] 06/05/2025 10:45 AM EDT Office Visit [facility] RHEUMATOLOGY 330 [facility] 100 [address] John Sheppard, EVENTS SPECIALIST 330 [facility] 100 [address] 06/13/2025 10:00 AM EDT Office Visit [facility] UROLOGY 1760 [facility] 502 [address] Sanam Saunders, EVENTS SPECIALIST 1760 [facility] [address] [address] 07/01/2025 11:00 AM EDT Office Visit [facility] UROLOGY 1760 [facility] 502 [address] Brennan Lee MD 1760 [facility] 502 [address] 07/16/2025 10:30 AM EDT Office Visit [facility] GASTROENTEROLOGY 1720 [facility] 302 [phone] Palak Graham PA-C [address] [facility] [address] [address] 07/18/2025 11:30 AM EDT Appointment [facility] OUTPATIENT ONCOLOGY [address] [place] [address] 07/31/2025 10:00 AM EDT Office Visit [facility] PULMONARY & CRITICAL CARE MEDICINE 3000 [facility] [place] [phone] Maxine Gibson, EVENTS SPECIALIST [address] [place] [address] Scheduled Referrals Name Type Priority Associated Diagnoses [...] - 4.200 uIU/mL 05/06/2025 7:29 PM EDT [facility] Blood Venipuncture / Unknown 05/06/2025 12:01 PM EDT 05/06/2025 12:01 PM EDT Palak Graham PA-C LAB BLOOD ORDERABLES Final Result [facility]
[address] [place] [address], * (ABNORMAL) Comprehensive Metabolic Panel (05/06/2025 12:01 PM EDT) Glucose 150(H) 65 - 99 mg/dL 05/06/2025 7:23 PM EDT [facility] BUN 17.0 8.0 - 23.0 mg/dL 05/06/2025 7:23 PM EDT [facility] Creatinine 0.85 0.57 - 1.00 mg/dL 05/06/2025 7:23 PM EDT [facility] Sodium 141 136 - 145 mmol/L 05/06/2025 7:23 PM EDT [facility] Potassium 4.0 3.5 - 5.2 mmol/L 05/06/2025 7:23 PM EDT [facility] Chloride 101 98 - 107 mmol/L 05/06/2025 7:23 PM EDT [facility] CO2 27.3 22.0 - 29.0 mmol/L 05/06/2025 7:23 PM EDT [facility] Calcium 9.4 8.6 - 10.5 mg/dL 05/06/2025 7:23 PM EDT [facility] Total Protein 7.7 6.0 - 8.5 g/dL 05/06/2025 7:23 PM EDT [facility] Albumin 4.0 3.5 - 5.2 g/dL 05/06/2025 7:23 PM EDT [facility] ALT (SGPT) 21 1 - 33 U/L 05/06/2025 7:23 PM EDT [facility] AST (SGOT) 18 1 - 32 U/L 05/06/2025 7:23 PM EDT [facility] Alkaline Phosphatase 98 39 - 117 U/L 05/06/2025 7:23 PM EDT [facility] Total Bilirubin 0.3 0.0 - 1.2 mg/dL 05/06/2025 7:23 PM EDT [facility] Globulin 3.7 gm/dL 05/06/2025 7:23 PM EDT [facility] A/G Ratio 1.1 g/dL 05/06/2025 7:23 PM EDT [facility] BUN/Creatinine Ratio 20.0 7.0 - 25.0 05/06/2025 7:23 PM EDT [facility] Anion Gap 12.7 5.0 - 15.0 mmol/L 05/06/2025 7:23 PM [facility] eGFR 75.2 >60.0 mL/min/1.7 3 05/06/2025 7:23 PM T [facility] Blood Venipuncture / Unknown 05/06/2025 12:01 PM EDT 05/06/2025 12:01 PM EDT [facility] - 05/06/2025 7:23 PM EDT [...] Graham PA-C LAB BLOOD ORDERABLES Final Result [facility]
[address] [place] [address], [place] [phone] documented in this encounter Visit Diagnoses Diagnosis [...] documented as of this encounter Care Teams Pipe Organ Mechanic Apprentice Relationship Specialty Start Date End Date Reza Panchal MD [facility] [place] [address] PCP - General Family Medicine 09/30/24 documented as of this encounter
--- OUTSIDE RECORDS SUMMARY | 2025-05-06 12:15 | XMS_ITS | Encounter Summary ---
[facility] Address [address] [place] [address] Care Team Providers Care Sub Prior Name Role Phone Reza Panchal MD Primary Care Provider +1- [phone] Encounter Details Date Type Department Care Team (Late st Contact Info) Description 05/06/2025 12:15 PM EDT Lab [facility]NOSTIC [place] AT [address] [place] [address] Esophageal dysphagia; Gastroesophageal reflux disease, [...] Recorded In the past 12 months has [employer], gas, oil, or water [employer] threatened to shut off services in your [...] or training? Not on file Preferred Language Greek 01/28/2025 PHQ-2 Answer Date Recorded Retired PHQ-9: [...] Info) Description 06/03/2025 10:40 AM EDT Appointment [facility] [address] [place] [address] 06/05/2025 10:45 AM EDT Office Visit [facility] RHEUMATOLOGY 330 [facility] 100 [place] [address] John Sheppard, MACHINE STONE POLISHER APPRENTICE 330 [facility] 100 [place] [address] 06/13/2025 10:00 AM EDT Office Visit [facility] UROLOGY [address] [address] Sanam Saunders, MACHINE STONE POLISHER APPRENTICE [address] [facility] [address] [place] [address] 07/01/2025 11:00 AM EDT Office Visit [facility] UROLOGY [address] [address] Brennan Lee MD [address] [address] 07/16/2025 10:30 AM EDT Office Visit [facility] GASTROENTEROLOGY 1720 [facility] 302 [place] [address] Palak Graham PA-C 1720 [facility] [address] [place] [address] 07/18/2025 11:30 AM EDT Appointment [facility] OUTPATIENT ONCOLOGY [address] [place] [address] 07/31/2025 10:00 AM EDT Office Visit [facility] PULMONARY & CRITICAL CARE MEDICINE 3000 [facility] [address] [place] [address] Maxine Gibson, MACHINE STONE POLISHER APPRENTICE [address] [place] [address] documented as of this encounter Goals Goal [...] Free T4 (05/06/2025 12:01 PM EDT) Pathologist [facility] TSH 2.680 0.270 - 4.200 uIU/mL 05/06/2025 7:29 PM EDT [facility] Blood Venipuncture / Unknown 05/06/2025 12:01 PM EDT 05/06/2025 12:01 PM EDT us Palak Graham PA-C LAB BLOOD ORDERABLES Final Result [facility]
[address] [place] [address], * (ABNORMAL) CBC Auto Differential (05/06/2025 12:01 PM EDT) Pathologist [facility] WBC 6.88 3.40 - 10.80 10*3/mm3 05/06/2025 6:48 PM EDT [facility] RBC 4.42 3.77 - 5.28 10*6/mm3 05/06/2025 6:48 PM EDT [facility] Hemoglobin 13.5 12.0 - 15.9 g/dL 05/06/2025 6:48 PM EDT [facility] Hematocrit 41.0 34.0 - 46.6 % 05/06/2025 6:48 PM EDT [facility] MCV 92.8 79.0 - 97.0 fL 05/06/2025 6:48 PM EDT [facility] MCH 30.5 26.6 - 33.0 pg 05/06/2025 6:48 PM EDT [facility] MCHC 32.9 31.5 - 35.7 g/dL 05/06/2025 6:48 PM EDT [facility] RDW 13.1 12.3 - 15.4 % 05/06/2025 6:48 PM EDT [facility] RDW-SD 44.8 37.0 - 54.0 fl 05/06/2025 6:48 PM EDT [facility] MPV 10.0 6.0 - 12.0 fL 05/06/2025 6:48 PM EDT [facility] Platelets 314 140 - 450 10*3/mm3 05/06/2025 6:48 PM EDT [facility] Neutrophil % 41.1(L) 42.7 - 76.0 % 05/06/2025 6:48 PM EDT [facility] Lymphocyte % 37.1 19.6 - 45.3 % 05/06/2025 6:48 PM EDT [facility] Monocyte % 14.8(H) 5.0 - 12.0 % 05/06/2025 6:48 PM EDT [facility] Eosinophil % 5.4 0.3 - 6.2 % 05/06/2025 6:48 PM EDT [facility] Basophil % 0.7 0.0 - 1.5 % 05/06/2025 6:48 PM EDT [facility] Immature Grans % 0.9(H) 0.0 - 0.5 % 05/06/2025 6:48 PM EDT [facility] Neutrophils, Absolute 2.83 1.70 - 7.00 10*3/mm3 05/06/2025 6:48 PM EDT [facility] Lymphocytes, Absolute 2.55 0.70 - 3.10 10*3/mm3 05/06/2025 6:48 PM EDT [facility] Monocytes, Absolute 1.02(H) 0.10 - 0.90 10*3/mm3 05/06/2025 6:48 PM EDT [facility] Eosinophils, Absolute 0.37 0.00 - 0.40 10*3/mm3 05/06/2025 6:48 PM EDT [facility] Basophils, Absolute 0.05 0.00 - 0.20 10*3/mm3 05/06/2025 6:48 PM EDT [facility] Immature Grans, Absolute 0.06(H) 0.00 - 0.05 10*3/mm3 05/06/2025 6:48 PM EDT [facility] nRBC 0.0 0.0 - 0.2 /100 WBC 05/06/2025 6:48 PM EDT [facility] Blood Venipuncture / Unknown 05/06/2025 12:01 PM EDT 05/06/2025 12:01 PM EDT Palak Graham PA-C LAB BLOOD ORDERABLES Final Result [facility]
[address] [place] [address], * (ABNORMAL) Comprehensive Metabolic Panel (05/06/2025 12:01 PM EDT) Glucose 150(H) 65 - 99 mg/dL 05/06/2025 7:23 PM EDT [facility] BUN 17.0 8.0 - 23.0 mg/dL 05/06/2025 7:23 PM EDT [facility] Creatinine 0.85 0.57 - 1.00 mg/dL 05/06/2025 7:23 PM EDT [facility] Sodium 141 136 - 145 mmol/L 05/06/2025 7:23 PM EDT [facility] Potassium 4.0 3.5 - 5.2 mmol/L 05/06/2025 7:23 PM EDT [facility] Chloride 101 98 - 107 mmol/L [facility]/06[facility]25 [facility] CO2 27.3 22.0 - 29.0 mmol/L 05/06/2025 7:23 PM [facility] Calcium 9.4 8.6 - 10.5 mg/dL 05/06/2025 7:23 PM [facility] Total Protein 7.7 6.0 - 8.5 g/dL 05/06/2025 7:23 PM [facility] Albumin 4.0 3.5 - 5.2 g/dL 05/06/2025 7:23 PM [facility] ALT (SGPT) 21 1 - 33 U/L 05/06/2025 7:23 PM [facility] AST (SGOT) 18 1 - 32 U/L 05/06/2025 7:23 PM [facility] Alkaline Phosphatase 98 39 - 117 U/L 05/06/2025 7:23 PM [facility] Total Bilirubin 0.3 0.0 - 1.2 mg/dL 05/06/2025 7:23 PM [facility] Globulin 3.7 gm/dL 05/06/2025 7:23 PM [facility] A/G Ratio 1.1 g/dL 05/06/2025 7:23 PM [facility] BUN/Creatinine Ratio 20.0 7.0 - 25.0 05/06/2025 7:23 PM [facility] Anion Gap 12.7 5.0 - 15.0 mmol/L 05/06/2025 7:23 PM [facility] eGFR 75.2 >60.0 mL/min/1.7 3 05/06/2025 7:23 PM [facility] Blood Venipuncture / Unknown 05/06/2025 12:01 PM EDT 05/06/2025 12:01 PM T [facility] LABORATORY - 05/06/2025 7:23 PM EDT [...] Graham PA-C LAB BLOOD ORDERABLES Final Result [facility]
[address] [place] [address], documented in this encounter Visit Diagnoses Diagnosis Esophageal dysphagia Dysphagia, pharyngoesophageal phase Gastroesophageal reflux disease, unspecified whether esophagitis present documented in this encounter Additional Health Concerns Infection Onset Date Last Indicated Resolved Time Hepatitis A 04/12/2024 04/12/2024 Assessment Noted Time PHQ-2 Depression Total Score: 1 05/20/20 24 11:00 AM EDT documented as of this encounter Care Teams Sub Prior Relationship Specialty Start Date End Date Reza Panchal MD [facility] [place] [address] PCP - General Family Medicine 09/30/24 documented as of this encounter
--- OUTSIDE RECORDS SUMMARY | 2025-05-06 12:15 | XMS_ITS | Encounter Summary ---
[facility] Organization [facility] Address [address] [place] [address] Care Team Providers Care Adjunct Faculty Mathematics Department Name Role Phone Reza Panchal MD Primary Care Provider +1- [phone] Encounter Details Date Type Department Care Team (Late st Contact Info) Description 05/06/2025 12:15 PM EDT Lab [facility] AT [address] [place] [address] Esophageal dysphagia; Gastroesophageal reflux disease, [...] Recorded In the past 12 months has [employer], gas, oil, or water [employer] threatened to shut off services in your [...] or training? Not on file Preferred Language Bolivian 01/28/2025 PHQ-2 Answer Date Recorded Retired PHQ-9: [...] Info) Description 06/03/2025 10:40 AM EDT Appointment [facility] DI[facility]O [address] [place] [address] 06/05/2025 10:45 AM EDT Office Visit [facility] RHEUMATOLOGY [address] [facility] 100 [place] [address] John Sheppard, SHAKER WASHER 330 [facility] 100 [place] [address] 06/13/2025 10:00 AM EDT Office Visit [facility] UROLOGY [address] [address] Sanam Saunders, SHAKER WASHER 1760 [facility] [address] [place] [address] 07/01/2025 11:00 AM EDT Office Visit [facility] UROLOGY [address] [address] Brennan Lee MD [address] [address] 07/16/2025 10:30 AM EDT Office Visit [facility] GASTROENTEROLOGY 1720 [facility] 302 [place] [address] Palak Graham PA-C 1720 [facility] [address] [place] [address] 07/18/2025 11:30 AM EDT Appointment [facility] OUTPATIENT ONCOLOGY 1740 [place] [address] 07/31/2025 10:00 AM EDT Office Visit [facility] PULMONARY & CRITICAL CARE MEDICINE 3000 [facility] [address] [place] [address] Maxine Gibson, SHAKER WASHER [address] [place] [address] documented as of this encounter Goals Goal [...] Free T4 (05/06/2025 12:01 PM EDT) Pathologist [facility] TSH 2.680 0.270 - 4.200 uIU/mL 05/06/2025 7:29 PM EDT [facility] Blood Venipuncture / Unknown 05/06/2025 12:01 PM EDT 05/06/2025 12:01 PM EDT us Palak Graham PA-C LAB BLOOD ORDERABLES Final Result [facility]
[address] [place] [address], * (ABNORMAL) CBC Auto Differential (05/06/2025 12:01 PM EDT) Pathologist [facility] WBC 6.88 3.40 - 10.80 10*3/mm3 05/06/2025 6:48 PM EDT [facility] RBC 4.42 3.77 - 5.28 10*6/mm3 05/06/2025 6:48 PM EDT [facility] Hemoglobin 13.5 12.0 - 15.9 g/dL 05/06/2025 6:48 PM EDT [facility] Hematocrit 41.0 34.0 - 46.6 % 05/06/2025 6:48 PM EDT [facility] MCV 92.8 79.0 - 97.0 fL 05/06/2025 6:48 PM EDT [facility] MCH 30.5 26.6 - 33.0 pg 05/06/2025 6:48 PM EDT [facility] MCHC 32.9 31.5 - 35.7 g/dL 05/06/2025 6:48 PM EDT [facility] RDW 13.1 12.3 - 15.4 % 05/06/2025 6:48 PM EDT [facility] RDW-SD 44.8 37.0 - 54.0 fl 05/06/2025 6:48 PM EDT [facility] MPV 10.0 6.0 - 12.0 fL 05/06/2025 6:48 PM EDT [facility] Platelets 314 140 - 450 10*3/mm3 05/06/2025 6:48 PM EDT [facility] Neutrophil % 41.1(L) 42.7 - 76.0 % 05/06/2025 6:48 PM EDT [facility] Lymphocyte % 37.1 19.6 - 45.3 % 05/06/2025 6:48 PM EDT [facility] Monocyte % 14.8(H) 5.0 - 12.0 % 05/06/2025 6:48 PM EDT [facility] Eosinophil % 5.4 0.3 - 6.2 % 05/06/2025 6:48 PM EDT [facility] Basophil % 0.7 0.0 - 1.5 % 05/06/2025 6:48 PM EDT [facility] Immature Grans % 0.9(H) 0.0 - 0.5 % 05/06/2025 6:48 PM EDT [facility] Neutrophils, Absolute 2.83 1.70 - 7.00 10*3/mm3 05/06/2025 6:48 PM EDT [facility] Lymphocytes, Absolute 2.55 0.70 - 3.10 10*3/mm3 05/06/2025 6:48 PM EDT [facility] Monocytes, Absolute 1.02(H) 0.10 - 0.90 10*3/mm3 05/06/2025 6:48 PM EDT [facility] Eosinophils, Absolute 0.37 0.00 - 0.40 10*3/mm3 05/06/2025 6:48 PM EDT [facility] Basophils, Absolute 0.05 0.00 - 0.20 10*3/mm3 05/06/2025 6:48 PM EDT [facility] Immature Grans, Absolute 0.06(H) 0.00 - 0.05 10*3/mm3 05/06/2025 6:48 PM EDT [facility] nRBC 0.0 0.0 - 0.2 /100 WBC 05/06/2025 6:48 PM EDT [facility] Blood Venipuncture / Unknown 05/06/2025 12:01 PM EDT 05/06/2025 12:01 PM EDT Palak Graham PA-C LAB BLOOD ORDERABLES Final Result [facility]
[address] [place] [address], * (ABNORMAL) Comprehensive Metabolic Panel (05/06/2025 12:01 PM EDT) Glucose 150(H) 65 - 99 mg/dL 05/06/2025 7:23 PM EDT [facility] BUN 17.0 8.0 - 23.0 mg/dL 05/06/2025 7:23 PM EDT [facility] Creatinine 0.85 0.57 - 1.00 mg/dL 05/06/2025 7:23 PM EDT [facility] Sodium 141 136 - 145 mmol/L 05/06/2025 7:23 PM EDT [facility] Potassium 4.0 3.5 - 5.2 mmol/L 05/06/2025 7:23 PM EDT [facility] Chloride 101 98 - 107 mmol/L [facility] CO2 27.3 22.0 - 29.0 mmol/L 05/06/2025 7:23 PM [facility] Calcium 9.4 8.6 - 10.5 mg/dL 05/06/2025 7:23 PM [facility] Total Protein 7.7 6.0 - 8.5 g/dL 05/06/2025 7:23 PM [facility] Albumin 4.0 3.5 - 5.2 g/dL 05/06/2025 7:23 PM [facility] ALT (SGPT) 21 1 - 33 U/L 05/06/2025 7:23 PM [facility] AST (SGOT) 18 1 - 32 U/L 05/06/2025 7:23 PM [facility] Alkaline Phosphatase 98 39 - 117 U/L 05/06/2025 7:23 PM [facility] Total Bilirubin 0.3 0.0 - 1.2 mg/dL 05/06/2025 7:23 PM [facility] Globulin 3.7 gm/dL 05/06/2025 7:23 PM [facility] A/G Ratio 1.1 g/dL 05/06/2025 7:23 PM [facility] BUN/Creatinine Ratio 20.0 7.0 - 25.0 05/06/2025 7:23 PM [facility] Anion Gap 12.7 5.0 - 15.0 mmol/L 05/06/2025 7:23 PM [facility] eGFR 75.2 >60.0 mL/min/1.7 3 05/06/2025 7:23 PM [facility] Blood Venipuncture / Unknown 05/06/2025 12:01 PM EDT 05/06/2025 12:01 PM T [facility] - 05/06/2025 7:23 PM [...] Graham PA-C LAB BLOOD ORDERABLES Final Result [facility]
[address] [place] [address], documented in this encounter Visit Diagnoses Diagnosis Esophageal dysphagia Dysphagia, pharyngoesophageal phase Gastroesophageal reflux disease, unspecified whether esophagitis present documented in this encounter Additional Health Concerns Infection Onset Date Last Indicated Resolved Time Hepatitis A 04/12/2024 04/12/2024 Assessment Noted Time PHQ-2 Depression Total Score: 1 05/20/20 24 11:00 AM EDT documented as of this encounter Care Teams Adjunct Faculty Mathematics Department Relationship Specialty Start Date End Date Reza Panchal MD [facility] [place] [address] PCP - General Family Medicine 09/30/24 documented as of this encounter
--- OUTSIDE RECORDS SUMMARY | 2025-05-14 14:30 | XMS_ITS | Encounter Summary ---
Author Organization [facility] Address [address] [place] [address] Care Team Providers Care Branch Service Leader Name Role Phone Reza Panchal MD Primary Care Provider +1- [phone] Reason for Visit * Reason Comments recurrent UTI HOSPITAL FOLLOW UP E 'COLI UTI/OAB/CINDY Encounter Details Date Type Department Care Team (Late st Contact Info) Description 05/14/2025 2:30 PM EDT Office Visit [facility] UROLOGY [address] [address] Sanam Saunders, PARVIZ [address] [facility] [address] [place] [address] Infection due to 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 toxin-producing Escherichia [...] drink = 0.6 oz pur e alcohol) [facility] Utilities Answer Date Recorded In the past 12 months has [employer] electric, gas, oil, or water company threatened [...] Care Everywhere. * Urinary Tract Infection Female (Latvian) * Vaginal Dryness and Thinning (Atrophic Vaginitis): What to Know Opae-bz-Qefe (Latvian) * Overactive Bladder in Adults: What to Know (Latvian) documented in this encounter Progress Notes * [...] antibiotics to protect the rectal reservoir including hbus-qkv-tqzmbvk yogurt preparations to judy oral pills containing [...] EDTAssociated Problem(s): Yeast dermatitis Orders: nystatin (MYCOSTATIN) [id number] UNIT/GM powder; Apply topically to the appropriate area as directed 3 (Three) Times a Day. POC Urinalysis Dipstick, Automated * Sanam Saunders APRN - 05/14/2025 2:30 PM EDTAssociated Problem(s): Perineal irritation in female Orders: nystatin (MYCOSTATIN) [id number] UNIT/GM powder; Apply topically to the appropriate [...] Sanam Saunders APRN - 05/14/2025 2:30 PM EDT Images from the original note were not included. Chief Complaint recurrent UTI (HOSPITAL FOLLOW UP E'COLI UTI/OAB/CINDY) Subjective History of Present Illness: Madison Castellanos is a 69 y.o. female with a past significant medical history(SEE CHART), who presents for 2-week follow-up, post recent hospitalization at [facility] in [place] from 04/24 - 04/28/2025 for E. coli [...] 05/14/2025 Slightly Cloudy (A) Clear Final Specific [place] 05/14/2025 1.015 1.005 - 1.030 Final pH, [...] antibiotics to protect the rectal reservoir including iqrz-ize-ubmwraz yogurt preparations to judy oral pills containing [...] Dipstick, Automated Yeast dermatitis Orders: nystatin (MYCOSTATIN) [id number] UNIT/GM powder; Apply topically to the appropriate area as directed 3 (Three) Times a Day. POC Urinalysis Dipstick, Automated Perineal irritation in female Orders: nystatin (MYCOSTATIN) [id number] UNIT/GM powder; Apply topically to the appropriate [...] Info) Description 06/03/2025 10:40 AM EDT Appointment [address] [address] 06/05/2025 10:45 AM EDT Office Visit [facility] RHEUMATOLOGY [address] [phone] John Sheppard APRN [address] [address] 06/13/2025 10:00 AM EDT Office Visit [facility] UROLOGY [address] [address] Sanam Saunders APRN [address] [address] 07/01/2025 11:00 AM EDT Office Visit [facility] UROLOGY 1760 [facility] [address] [place] [address] Brennan Lee MD 1760 [facility] [address] [place] [address] 07/16/2025 10:30 AM EDT Office Visit [facility] GASTROENTEROLOGY 1720 [facility] 302 [place] [phone] Palak Graham PA-C 1720 [facility] 302 [place] [address] 07/18/2025 11:30 AM EDT Appointment [facility] OUTPATIENT ONCOLOGY [address] [place] [phone] 07/31/2025 10:00 AM EDT Office Visit [facility] PULMONARY & CRITICAL CARE MEDICINE 3000 [facility] 240 [place] [address] Maxine Gibson, PARVIZ [address] [place] [address] documented as of this encounter Goals Goal [...] Color Yellow Yellow, Straw, Dark Yellow, Ann [facility] Clarity, UA Slightly Cloudy(A) Clear [facility] Specific [place] 1.015 1.005 - 1.030 [facility] pH, Urine 6.0 5.0 - 8.0 [facility] Leukocytes Negative Negative [facility] Nitrite, UA Negative Negative [facility] Protein, POC Negative Negative mg/dL [facility] Glucose, UA 3+(A) Negative mg/dL [facility] Ketones, UA Negative Negative [facility] Urobilinogen, UA 0.2 E.U./dL Normal, 0.2 E.U./dL [facility] Bilirubin Negative Negative [facility] Blood, UA Negative Negative [facility] Lot Number [id number] [facility] Expiration Date 07/20/2026 [facility] Urine 05/14/2025 3:56 PM EDT Sanam Saunders APRN POINT OF CARE TEST ORDE RABLES Final Result [facility]
[address] [place] [address], * LABS SCANNED (05/14/2025) Sanam Saunders APRN [...] documented as of this encounter Care Teams Branch Service Leader Relationship Specialty Start Date End Date Reza Panchal MD [address] [place] [address] PCP - General Family Medicine 09/30/24 documented as of this encounter
--- OUTSIDE RECORDS SUMMARY | 2025-05-14 14:30 | XMS_ITS | Encounter Summary ---
Author Organization [facility] Address [address] [place] [address] Care Team Providers Care Business Continuity Strategy Director Name Role Phone Reza Panchal MD Primary Care Provider +1- [phone] Reason for Visit * Reason Comments recurrent UTI HOSPITAL FOLLOW UP E 'COLI UTI/OAB/CINDY Encounter Details Date Type Department Care Team (Late st Contact Info) Description 05/14/2025 2:30 PM EDT Office Visit [facility] UROLOGY [address] [address] Sanam Saunders, PARVIZ 1760 [facility] [address] [place] [address] Infection due to 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 toxin-producing Escherichia [...] Recorded In the past 12 months has [employer] electric, gas, oil, or water company threatened [...] or training? Not on file Preferred Language Moroccan 01/28/2025 PHQ-2 Answer Date Recorded Retired PHQ-9: [...] Care Everywhere. * Urinary Tract Infection Female (Moroccan) * Vaginal Dryness and Thinning (Atrophic Vaginitis): What to Know Ohbk-sh-Neqc (Moroccan) * Overactive Bladder in Adults: What to Know (Moroccan) documented in this encounter Progress Notes * [...] antibiotics to protect the rectal reservoir including evfd-cet-xdplbmu yogurt preparations to judy oral pills containing [...] EDTAssociated Problem(s): Yeast dermatitis Orders: nystatin (MYCOSTATIN) [id number] UNIT/GM powder; Apply topically to the appropriate area as directed 3 (Three) Times a Day. POC Urinalysis Dipstick, Automated * Sanam Saunders APRN - 05/14/2025 2:30 PM EDTAssociated Problem(s): Perineal irritation in female Orders: nystatin (MYCOSTATIN) [id number] UNIT/GM powder; Apply topically to the appropriate [...] for 2-week follow-up, post recent hospitalization at [facility] in [place] from 04/24 - 04/28/2025 for E. coli [...] 05/14/2025 Slightly Cloudy (A) Clear Final Specific [place] 05/14/2025 1.015 1.005 - 1.030 Final pH, [...] antibiotics to protect the rectal reservoir including xbhg-lhm-vknrlen yogurt preparations to judy oral pills containing [...] Dipstick, Automated Yeast dermatitis Orders: nystatin (MYCOSTATIN) [id number] UNIT/GM powder; Apply topically to the appropriate area as directed 3 (Three) Times a Day. POC Urinalysis Dipstick, Automated Perineal irritation in female Orders: nystatin (MYCOSTATIN) [id number] UNIT/GM powder; Apply topically to the appropriate [...] Info) Description 06/03/2025 10:40 AM EDT Appointment [address] [phone] 06/05/2025 10:45 AM EDT Office Visit [facility] RHEUMATOLOGY [address] [phone] John Sheppard APRN [address] [address] 06/13/2025 10:00 AM EDT Office Visit [facility] UROLOGY [address] [address] Sanam Saunders APRN [address] [address] 07/01/2025 11:00 AM EDT Office Visit [facility] UROLOGY 1760 [facility] 502 [place] [address] Brennan Lee MD 1760 [facility] [address] [place] [address] 07/16/2025 10:30 AM EDT Office Visit [facility] GASTROENTEROLOGY 1720 [facility] 302 [place] [phone] Palak Graham PA-C 1720 [facility] 302 [place] [address] 07/18/2025 11:30 AM EDT Appointment [facility] OUTPATIENT ONCOLOGY [address] [place] [phone] 07/31/2025 10:00 AM EDT Office Visit [facility] PULMONARY & CRITICAL CARE MEDICINE 3000 [facility] 240 [place] [address] Maxine Gibson, PARVIZ 2400 [place] [address] documented as of this encounter Goals Goal [...] Color Yellow Yellow, Straw, Dark Yellow, Ann [facility] Clarity, UA Slightly Cloudy(A) Clear [facility] Specific [place] 1.015 1.005 - 1.030 [facility] pH, Urine 6.0 5.0 - 8.0 [facility] Leukocytes Negative Negative [facility] Nitrite, UA Negative Negative [facility] Protein, POC Negative Negative mg/dL [facility] Glucose, UA 3+(A) Negative mg/dL [facility] Ketones, UA Negative Negative [facility] Urobilinogen, UA 0.2 E.U./dL Normal, 0.2 E.U./dL [facility] Bilirubin Negative Negative [facility] Blood, UA Negative Negative [facility] Lot Number [id number] [facility] Expiration Date 07/20/2026 [facility] Urine 05/14/2025 3:56 PM EDT Sanam Saunders APRN POINT OF CARE TEST ORDE RABLES Final Result [facility]
[address] [place] [address], * LABS SCANNED (05/14/2025) Sanam Saunders APRN [...] documented as of this encounter Care Teams Business Continuity Strategy Director Relationship Specialty Start Date End Date Reza Panchal MD [address] [place] [address] PCP - General Family Medicine 09/30/24 documented as of this encounter
--- OUTSIDE RECORDS SUMMARY | 2025-05-23 13:00 | XMS_ITS | Encounter Summary ---
Author Organization [facility] Address [address] [place] [address] Care Team Providers Care Acid Crane Operator Name Role Phone Reza Panchal MD Primary Care Provider +1- [phone] Reason for Visit * Episode Based Medications (Routine) - Closed Specialty Diagnoses / Procedures Referred By Tia t Referred To Contact Diagnoses Rheumatoid arthritis involving multiple sites with positive rheumatoid factor Procedures ID GOLIMUMAB FOR IV USE 1MG Patrice Santana, DO [address] [place] [address] Phone: tel: fax: [facility] OUTPATIENT ONCOLOGY [address] [place] [address] Phone: tel: fax: Referral ID Status Reason Start Date Expiration Date Visits Re quested Visits Authorized [id number] Closed 05/06/2024 05/06/2025 1 1 Encounter Details Date Type Department Care Team (Latest Contact Info) Description 05/23/2025 1:00 PM EDT - 05/23/2025 11:59 PM EDT Hospital Encounter [facility] OUTPATIENT ONCOLOGY [address] [place] [address] Rheumatoid arthritis involving multiple sites with positive rheumatoid factor (Primary Dx) Discharge Disposition: Home or Self Care Social History Tobacco Use Types Packs/Day Years Used Date Smoking Tobacco: Never Passive Smoke Exposure: Past Smokeless Tobacco: Never Comments: smokes, for 45 years Alcohol Use Standard Drinks/Week Comments No 0 (1 standard drink = 0.6 oz pur e alcohol) [facility] Utilities Answer Date Recorded In [...] minutes. 25 tablet 5 01/03/2024 nystatin (MYCOSTATIN) [id number] UNIT/GM powderIndications:Y east dermatitis,Perineal irritation in female [...] Info) Description 06/03/2025 10:40 AM EDT Appointment [facility] MINERVA DIALLO [address] [place] [phone] 06/05/2025 10:45 AM EDT Office Visit [facility] RHEUMATOLOGY [address] [phone] John Sheppard APRN 330 [facility] 100 [place], [place] [phone] 06/13/2025 10:00 AM EDT Office Visit [facility] UROLOGY 1760 [facility] 502 [place] [address] Sanam Saunders APRN 1760 [facility] [address] [place] [address] 07/01/2025 11:00 AM EDT Office Visit [facility] UROLOGY 1760 [facility] 502 [place] [address] Brennan Lee MD 1760 [facility] 502 [place] [address] 07/16/2025 10:30 AM EDT Office Visit [facility] GASTROENTEROLOGY 1720 [facility] [address] [place] [phone] Palak Graham PA-C 1720 [facility] 302 [place] [address] 07/18/2025 11:30 AM EDT Appointment [facility] OUTPATIENT ONCOLOGY [address] [place] [phone] 07/31/2025 10:00 AM EDT Office Visit [facility] PULMONARY & CRITICAL CARE MEDICINE 3000 [facility] 240 [place] [address] Maxine Gibson, INFORMATION SYSTEMS SECURITY MANAGER 2400 [place] [address] documented as of this encounter Goals Goal [...] documented as of this encounter Care Teams Acid Crane Operator Relationship Specialty Start Date End Date Reza Panchal MD [facility] [place] [address] PCP - General Family Medicine 09/30/24 documented as of this encounter
--- OUTSIDE RECORDS SUMMARY | 2025-05-23 13:00 | XMS_ITS | Encounter Summary ---
[facility] Address [address] [place] [address] Care Team Providers Care Change Advisor Name Role Phone Reza Panchal MD Primary Care Provider +1- [phone] Reason for Visit * Episode Based Medications (Routine) - Closed Specialty Diagnoses / Procedures Referred By Tia t Referred To Contact Diagnoses Rheumatoid arthritis involving multiple sites with positive rheumatoid factor Procedures [place] GOLIMUMAB FOR IV USE 1MG Patrice Santana, DO [address] [place] [address] Phone: tel: fax: [facility] OUTPATIENT ONCOLOGY [address] [place] [address] Phone: tel: fax: Referral ID Status Reason Start Date Expiration Date Visits Re quested Visits Authorized [id number] Closed 05/06/2024 05/06/2025 1 1 Encounter Details Date Type Department Care Team (Latest Contact Info) Description 05/23/2025 1:00 PM EDT - 05/23/2025 11:59 PM EDT Hospital Encounter [facility] OUTPATIENT ONCOLOGY [address] [place] [address] Rheumatoid arthritis involving multiple sites with positive rheumatoid factor (Primary Dx) Discharge Disposition: Home or Self Care Social History Tobacco Use Types Packs/Day Years Used Date Smoking Tobacco: Never Passive Smoke Exposure: Past Smokeless Tobacco: Never Comments: smokes, for 45 years Alcohol Use Standard Drinks/Week Comments No 0 (1 standard drink = 0.6 oz pur e alcohol) [facility] Utilities Answer Date Recorded In the [...] or training? Not on file Preferred Language Icelandic 01/28/2025 PHQ-2 Answer Date Recorded Retired PHQ-9: [...] minutes. 25 tablet 5 01/03/2024 nystatin (MYCOSTATIN) [id number] UNIT/GM powderIndications:Y east dermatitis,Perineal irritation in female [...] Info) Description 06/03/2025 10:40 AM EDT Appointment [facility] MINERVA DIALLO [address] [place] [phone] 06/05/2025 10:45 AM EDT Office Visit [facility] RHEUMATOLOGY [address] [phone] John Sheppard APRN 330 [facility] 100 [place], [place] [address] 06/13/2025 10:00 AM EDT Office Visit [facility] UROLOGY 1760 [facility] 502 [place] [address] Sanam Saunders APRN 1760 [facility] [address] [place] [address] 07/01/2025 11:00 AM EDT Office Visit [facility] UROLOGY 1760 [facility] 502 [place] [address] Brennan Lee MD 1760 [facility] 502 [place] [address] 07/16/2025 10:30 AM EDT Office Visit [facility] GASTROENTEROLOGY 1720 [facility] 302 [place] [phone] Palak Graham PA-C 1720 [facility] 302 [place] [address] 07/18/2025 11:30 AM EDT Appointment [facility] OUTPATIENT ONCOLOGY [address] [place] [phone] 07/31/2025 10:00 AM EDT Office Visit [facility] PULMONARY & CRITICAL CARE MEDICINE 3000 [facility] 240 [place] [address] Maxine Gibson, FUSING MACHINE TENDER [address]00 [place] [address] documented as of this encounter Goals Goal [...] documented as of this encounter Care Teams Change Advisor Relationship Specialty Start Date End Date Reza Panchal MD [facility] [place] [address] PCP - General Family Medicine 09/30/24 documented as of this encounter
[2025-05-25] VITALS (9 sets, daily range): BP systolic 101–141; BP diastolic 53–78; PULSE 99–113; RESP 13–20; TEMP 36.6–37.1; O2SAT 95–100; BMI 38.2; BMI 39.2
--- OUTSIDE RECORDS SUMMARY | 2025-05-25 06:23 | XMS_ITS | Encounter Summary ---
[facility] Address [address] [place] [phone] Care Team Providers Care Archivist Name Role Phone Reza Panchal MD Primary Care Provider +1- [phone] Encounter Details Date Type Department Care Team (Late st Contact Info) Description 05/16/2025 Results Follow-Up [facility] UROLOGY 3000 [facility] 340 [place] [address] Sanam Saunders APRN 1760 [place] [address] Social History Tobacco Use Types Packs/Day Years Used Date Smoking Tobacco: Never Passive Smoke Exposure: Past Smokeless Tobacco: Never Comments: smokes, for 45 years Alcohol Use Standard Drinks/Week Comments No 0 (1 standard drink = 0.6 oz pur e alcohol) [facility] Utilities Answer Date Recorded In the past 12 months has [employer] electric, gas, oil, or water company threatened [...] or training? Not on file Preferred Language Pashto 01/28/2025 PHQ-2 Answer Date Recorded Retired PHQ-9: [...] Info) Description 06/03/2025 10:40 AM EDT Appointment [facility] YOEL [address] [place] [address] 06/05/2025 10:45 AM EDT Office Visit [facility] RHEUMATOLOGY 330 [facility] 100 [place] [phone] John Sheppard, PARVIZ 330 [facility] 100 [place] [address] 06/13/2025 10:00 AM EDT Office Visit [facility] UROLOGY 1760 [facility] 502 [place] [address] Sanam Saunders, GASATERIA ATTENDANT 1760 [facility] [address] [place], [place] [phone] 07/01/2025 11:00 AM EDT Office Visit [facility] UROLOGY [address] [address] Brennan Lee MD 1760 [facility] 502 [place] [address] 07/16/2025 10:30 AM EDT Office Visit [facility] GASTROENTEROLOGY 1720 [facility] 302 [place] [phone] Palak Graham PA-C 1720 [facility] [address] [place] [address] 07/18/2025 11:30 AM EDT Appointment [facility] OUTPATIENT ONCOLOG[facility] [address] [place] [address] 07/31/2025 10:00 AM EDT Office Visit [facility] PULMONARY & CRITICAL CARE MEDICINE [address] [facility] [address] [place] [phone] Leigh Gibsonlanjuan Fontaine, GASATERIA ATTENDANT [address] [place] [phone] documented as of this encounter Goals Goal [...] and Manage My Symptoms Patient Goals No Nahtalia Phelan RN Note: Follow Up Date - [...] documented as of this encounter Care Teams Archivist Relationship Specialty Start Date End Date Reza Panchal MD [address] [place] [address] PCP - General Family Medicine 09/30/24 documented as of this encounter
--- OUTSIDE RECORDS SUMMARY | 2025-05-25 06:23 | XMS_ITS | Encounter Summary ---
[facility] Address [address] [place] [address] Care Team Providers Care Golf Club Weigher Name Role Phone Reza Panchal MD Primary Care Provider +1- [phone] Reason for Visit * Reason Onset Date Comments VOQUENZA 10 MG PA REQUEST 05/13/2025 APPROVAL 05/13/2025 Encounter Details Date Type Department Care Team (Latest Contact Info) Description 05/13/2025 Prior Authorization [facility] GASTROENTEROLOGY [address] [place] [phone] Khadar Julien RMA VOQUENZA 10 MG PA REQUEST; APPROVAL Social History Tobacco Use Types Packs/Day Years Used Date Smoking Tobacco: Never Passive Smoke Exposure: Past Smokeless Tobacco: Never Comments: smokes, for 45 years Alcohol Use Standard Drinks/Week Comments No 0 (1 standard drink = 0.6 oz pur e alcohol) [facility] Utilities Answer Date Recorded In the past 12 months has [employer] electric, gas, oil, or water company threatened [...] or training? Not on file Preferred Language Frisian 01/28/2025 PHQ-2 Answer Date Recorded Retired PHQ-9: Brief Depression Severity Measure Score 7 05/20/2024 Comments No Sex and Gender Information Value Date Recorded Sex Assigned at Female 01/09/2025 11:01 AM EDT Legal Sex Female 12:37 PM EDT Gender Identity Not on file Sexual Orientation Not on file documented as of this encounter Miscellaneous Notes * Telephone Encounter - Khadar Julien RMA - 05/20/2025 3:12 PM EDT I CALLED ERICA BACK. I CALLED [facility] AND SPOKE WITH PHARMACIST. PA GREWAL NUMBER GIVEN. PHARMACIST STATED HE WILL UPDATE THE CLAIM AND GIVE PATIENT A CALL. * Telephone Encounter - Khadar Julien RMA - 05/14/2025 11:37 AM EDT I SPOKE WITH ERICA. INFORMED HER THAT BHARAT GUSMAN HAS BEEN APPROVED. SHE WILL CALL [facility]. * Telephone Encounter - Khadar Julien RMA - 05/14/2025 11:35 AM EDT Outcome Approved on May 13 by [facility] 2017 Your request has been approved Effective Date: 10/16/2024 Authorization Expiration Date: 10/15/2025 * Telephone Encounter - Marta Spencer MA - 05/14/2025 11:04 AM EDT Erica Becerra wants you to call her regarding patients bharat prior authorization. * Telephone Encounter - Khadar Julien RMA - 05/13/2025 2:39 PM EDT INFORMED ERICA(ADALI) OF PA APPROVAL. * Telephone Encounter - Khadar Julien RMA - 05/13/2025 2:38 PM EDT PA Need Help? Call us at Outcome Approved today by [facility] 2017 Your request has been approved Effective Date: 10/16/2024 Authorization Expiration Date: 10/15/2025 * Telephone Encounter - Khadar Julien RMA - 05/13/2025 2:04 PM EDT (Grewal: [id number]) PA Need Help? Call us at Status sent iconSent to Plan today Drug Voquezna 10MG tablets ePA cloud logo Form [facility] Electronic PA Form (2016PD) documented in this encounter Plan of Treatment Upcoming Encounters Date Type Department Care Team (Late st Contact Info) Description 06/03/2025 10:40 AM EDT Appointment [address] [address] 06/05/2025 10:45 AM EDT Office Visit [facility] RHEUMATOLOGY 330 [facility] 100 [place] [phone] John Sheppard APRN 330 [facility] 100 [place] [address] 06/13/2025 10:00 AM EDT Office Visit [facility] UROLOGY [address] [place] [address] 502 [place] [address] Sanam Saunders, PARVIZ 1760 [facility] [address] [place] [address] 07/01/2025 11:00 AM EDT Office Visit [facility] UROLOGY [address] [facility] 502 [place] [address] Brennan Lee MD [address] [facility] 502 [place] [address] 07/16/2025 10:30 AM EDT Office Visit [facility] GASTROENTEROLOGY [address]20 [facility] 302 [place] [phone] Palak Graham PA-C 1720 [facility] 302 [place] [address] 07/18/2025 11:30 AM EDT Appointment [facility] OUTPATIENT ONCOLOGY [address] [place] [phone] 07/31/2025 10:00 AM EDT Office Visit [facility] PULMONARY & CRITICAL CARE MEDICINE 3000 [facility] 240 [place] [phone] Maxine Gibson, CAFE COOK 2400 [place] [address] documented as of this encounter Goals Goal [...] of this encounter Care Teams Golf Club Weigher Relationship Specialty Start Date End Date Reza Panchal MD [facility]0 [place] [address] PCP - General Family Medicine 09/30/24 documented as of this encounter
--- OUTSIDE RECORDS SUMMARY | 2025-05-25 06:23 | XMS_ITS | Encounter Summary ---
[facility] Address [address] [place] [address] Care Team Providers Care Loss Control Engineer Name Role Phone Reza Panchal MD Primary Care Provider +1- [phone] Encounter Details Date Type Department Care Team (Late st Contact Info) Description 05/14/2025 Telephone [facility] UROLOGY [address] [place] [address] Sanam Saunders APRN [address] [facility] [address] [place] [address] Social History Tobacco Use Types Packs/Day Years Used Date Smoking Tobacco: Never Passive Smoke Exposure: Past Smokeless Tobacco: Never Comments: smokes, for 45 years Alcohol Use Standard Drinks/Week Comments No 0 (1 standard drink = 0.6 oz pur e alcohol) [facility] Utilities Answer Date Recorded In the past 12 months has [employer] electric, gas, oil, or water company threatened [...] or training? Not on file Preferred Language Jamaican 01/28/2025 PHQ-2 Answer Date Recorded Retired PHQ-9: Brief Depression Severity Measure Score 7 05/20/2024 Comments No Sex and Gender Information Value Date Recorded Sex Assigned at Female 01/09/2025 11:01 AM EDT Legal Sex Female 12:37 PM EDT Gender Identity Not on file Sexual Orientation Not on file documented as of this encounter Miscellaneous Notes * Telephone Encounter - Emerald Lawler RegSched Rep - 05/14/2025 12:08 PM EDT Hub staff attempted to follow warm transfer process and was unsuccessful Caller: ERICA THRASHER Relationship to patient: LIZA/ VERBAL ON FILE Best call back number: [phone] Patient is needing: PT CALLED REQUESTING A LATER APPT TODAY OR FOR ANOTHER DAY THIS WEEK. PLEASE CALL TO ADVISE. THANKS. documented in this encounter Plan of Treatment Upcoming Encounters Date Type Department Care Team (Late st Contact Info) Description 06/03/2025 10:40 AM EDT Appointment [address] [address] 06/05/2025 10:45 AM EDT Office Visit [facility] RHEUMATOLOGY [address] [address] John Sheppard, QUICKBOOKS BOOKKEEPER [address] [address] 06/13/2025 10:00 AM EDT Office Visit [facility] UROLOGY [address] [address] Sanam Saunders, QUICKBOOKS BOOKKEEPER 1760 [facility] [address] [place] [address] 07/01/2025 11:00 AM EDT Office Visit [facility] UROLOGY [address] [address] Brennan Lee MD 1760 [facility] [address] [place] [address] 07/16/2025 10:30 AM EDT Office Visit [facility] GASTROENTEROLOGY 1720 [facility] 302 [place] [phone] Palak Graham PA-C 1720 [facility] [address] [place] [address] 07/18/2025 11:30 AM EDT Appointment [facility] OUT[facility] ONCOL[facility]Y [address] [place] [phone] 07/31/2025 10:00 AM EDT Office Visit [facility] PULMONARY & CRITICAL CARE MEDICINE 3000 [facility] 240 [place] [phone] Maxine Gibson APRN [address] [place] [address] documented as of this encounter Goals Goal [...] documented as of this encounter Care Teams Loss Control Engineer Relationship Specialty Start Date End Date Reza Panchal MD [address] [place] [address] PCP - General Family Medicine 09/30/24 documented as of this encounter
--- OUTSIDE RECORDS SUMMARY | 2025-05-25 06:23 | XMS_ITS | Encounter Summary ---
[facility] Address [address] [place] [address] Care Team Providers Care Regulatory Compliance Manager Name Role Phone Reza Panchal MD Primary Care Provider +1- [phone] Reason for Visit * Reason Onset Date Comments Med Refill 05/12/2025 Encounter Details Date Type Department Care Team (Late st Contact Info) Description 05/12/2025 Refill [facility] GASTROENTEROLOGY [address] [address] Palak Graham PA-C 1720 [facility] [address] [place] [address] Social History Tobacco Use Types Packs/Day Years Used Date Smoking Tobacco: Never Passive Smoke Exposure: Past Smokeless Tobacco: Never Comments: smokes, for 45 years Alcohol Use Standard Drinks/Week Comments No 0 (1 standard drink = 0.6 oz pur e alcohol) [facility] Utilities Answer Date Recorded In the past 12 months has [employer] electric, gas, oil, or water company threatened [...] Info) Description 06/03/2025 10:40 AM EDT Appointment [facility] 3084 [place] [address] 06/05/2025 10:45 AM EDT Office Visit [facility] RHEUMATOLOGY 330 [facility] 100 [place] [phone] John Sheppard, PARVIZ [address] [facility] 100 [place] [address] 06/13/2025 10:00 AM EDT Office Visit [facility] UROLOGY [address] [address] Sanam Saunders, DATA MANAGER 1760 [facility] [address] [place] [phone] 07/01/2025 11:00 AM EDT Office Visit [facility] UROLOGY [address] [address] Brennan Lee MD [address] [address] 07/16/2025 10:30 AM EDT Office Visit [facility] GASTROENTEROLOGY 1720 [facility] 302 [place] [phone] Palak Graham PA-C 1720 [facility] 302 [place] [address] 07/18/2025 11:30 AM EDT Appointment [facility] [address] [place] [address] 07/31/2025 10:00 AM EDT Office Visit [facility]ICAL [facility] PULMONARY & CRITICAL CARE MEDICINE [address] [facility] [address] [place] [address] [place] [address] Maxine Gibson, DATA MANAGER [address] [place] [address] documented as of this encounter Goals Goal [...] documented as of this encounter Care Teams Regulatory Compliance Manager Relationship Specialty Start Date End Date Reza Panchal MD [address] [place] [address] PCP - General Family Medicine 09/30/24 documented as of this encounter
--- OUTSIDE RECORDS SUMMARY | 2025-05-25 06:23 | XMS_ITS | Encounter Summary ---
Author Organization [facility] Address [address] [place] [address] Care Team Providers Care Library Page Name Role Phone Reza Panchal MD Primary Care Provider +1- [phone] Encounter Details Date Type Department Care Team (Latest Contact Info) Description 05/14/2025 Travel Social History Tobacco Use Types Packs/Day Years Used Date Smoking Tobacco: Never Passive Smoke Exposure: Past Smokeless Tobacco: Never Comments: smokes, for 45 years Alcohol Use Standard Drinks/Week Comments No 0 (1 standard drink = 0.6 oz pur e alcohol) [facility] Utilities Answer Date Recorded In the past [...] or training? Not on file Preferred Language Armenian 01/28/2025 PHQ-2 Answer Date Recorded Retired PHQ-9: [...] 10:40 AM EDT Appointment [facility]A [facility] [address] [place] [address] 06/05/2025 10:45 AM EDT Office Visit [facility] RHEUMATOLOGY 330 [facility] 100 [place] [phone] John Sheppard, BLASTING CLAY MINER 330 [facility] 100 [place] [address] 06/13/2025 10:00 AM EDT Office Visit [facility] UROLOGY 1760 [facility] 502 [place] [address] Sanam Saunders, BLASTING CLAY MINER 1760 [facility] [address] [place] [address] 07/01/2025 11:00 AM EDT Office Visit [facility] UROLOGY 1760 [facility] [address] [place] [address] Brennan Lee MD 1760 [facility] [address] [place] [address] 07/16/2025 10:30 AM EDT Office Visit [facility] GASTROENTEROLOGY 1720 [facility] 302 [place] [address] Palak Graham PADelano 1720 [facility] [address] [place] [address] 07/18/2025 11:30 AM EDT Appointment [facility] OUTPATIENT ONCOLOGY 1740 [place] [address] 07/31/2025 10:00 AM EDT Office Visit [facility] PULMONARY & CRITICAL CARE MEDICINE 3000 [facility] 240 [place] [phone] Maxine Gibson, BLASTING CLAY MINER [address] [place] [address] documented as of this encounter Goals Goal [...] as of this encounter Care Teams Library Page Relationship Specialty Start Date End Date Reza Panchal MD [address] [phone] PCP - General Family Medicine 09/30/24 documented as of this encounter
--- OUTSIDE RECORDS SUMMARY | 2025-05-25 06:24 | XMS_ITS | Encounter Summary ---
Author Organization [facility] Address [address] [place] [address] Care Team Providers Care Bar Pointer Name Role Phone Reza Panchal MD Primary Care Provider +1- [phone] Encounter Details Date Type Department Care Team (Latest Contact Info) Description 03/28/2025 Travel Social History Tobacco Use Types Packs/Day Years Used Date Smoking Tobacco: Never Passive Smoke Exposure: Past Smokeless Tobacco: Never Comments: smokes, for 45 years Alcohol Use Standard Drinks/Week Comments No 0 (1 standard drink = 0.6 oz pur e alcohol) [facility] Utilities Answer Date Recorded In [...] or training? Not on file Preferred Language Croatian 01/28/2025 PHQ-2 Answer Date Recorded Retired PHQ-9: [...] Info) Description 06/03/2025 10:40 AM EDT Appointment [facility] [address] [place] [address] 06/05/2025 10:45 AM EDT Office Visit [facility] RHEUMATOLOGY 330 [facility] 100 [place] [phone] John Sheppard, EXPLOSIVES OPERATOR 330 [facility] 100 [place] [address] 06/13/2025 10:00 AM EDT Office Visit [facility] UROLOGY 1760 [facility] 502 [place] [address] Sanam Saunders, EXPLOSIVES OPERATOR [address]60 [facility] [address] [place] [address] 07/01/2025 11:00 AM EDT Office Visit [facility] UROLOGY 1760 [facility] 502 [place] [address] Brennan Lee MD 1760 [facility] 502 [place] [address] 07/16/2025 10:30 AM EDT Office Visit [facility] GASTROENTEROLOGY 1720 [facility] 302 [place] [address] Palak Graham PADelano 1720 [facility] [address] [place] [address] 07/18/2025 11:30 AM EDT Appointment [facility] 1740 [place] [address] 07/31/2025 10:00 AM EDT Office Visit [facility] PULMONARY & CRITICAL CARE MEDICINE 3000 [facility] 240 [place] [phone] Maxine Gibson, EXPLOSIVES OPERATOR [address] [place] [address] documented as of this encounter Goals Goal [...] documented as of this encounter Care Teams Bar Pointer Relationship Specialty Start Date End Date Reza Panchal MD [address] [phone] PCP - General Family Medicine 09/30/24 documented as of this encounter
--- OUTSIDE RECORDS SUMMARY | 2025-05-25 06:24 | XMS_ITS | Clinical Summary ---
Author Organization [facility] Address [address] [place] [address] Care Team Providers Care Blasting Machine Operator Name Role Phone Reza Panchal MD Primary Care Provider [phone] Allergies Active Allergy Reactions Criticality Noted Date [...] mouth Every Night. 90 tablet 1 03/08/20 Active metoprolol succinate XL (TOPROL-XL) 50 MG 24 hr tablet Take 1 tablet by mouth Every 12 (Twelve) Hours. 03/09/20 24 Active Cholecalciferol 25 MCG (1000 UT) tablet Take 2 tablets by mouth Daily. Active sucralfate (CARAFATE) 1 g tablet Take 1 tablet by mouth 4 (Four) Times a Day. 360 tablet 05/02/20 Active ondansetron (Zofran) 4 MG tablet Take 1 tablet by mouth Every 8 (Eight) Hours As Needed for Nausea or Vomiting. 30 tablet 05/02/20 24 Active memantine (Namenda) 10 MG tabletIndications: Mild cognitive impairment Take 1 tablet by mouth 2 (Two) Times a Day. 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 E11.319 50 each 12 05/13/20 Active Lancets 30G miscIndications:Ty pe 2 diabetes mellitus with retinopathy, without long-term current use of insulin, macular edema presence unspecified, unspecified laterality, unspecified retinopathy severity Use to check blood sugar daily. ED 11.319 100 each 4 05/13/20 Active glucose monitor monitoring kitIndications:Typ e 2 [...] 3 Times Daily, Informant: Self, Reported on 05/14/2025 levothyroxine (SYNTHROID, LEVOTHROID) 75 MCG tabletIndications: Acquired hypothyroidism Take 1 tablet by mouth Daily. 30 tablet 5 06/03/20 24 Active amLODIPine (NORVASC) 2.5 MG tabletIndications: Primary hypertension Take 1 tablet by mouth Daily. 30 tablet 2 06/07/20 24 Active Additional Information Patient taking differently:2.5 mg OralAs Needed, Reported on 05/14/2025 Jardiance 10 MG tablet tabletIndications: Type 2 [...] mouth Daily. 90 tablet 04/29/20 25 Active Vonoprazan Fumarate (VOQUEZNA) 10 MG tablet Take 1 tablet by mouth Daily. 30 tablet 11 05/12/20 25 Active nitrofurantoin, macrocrystal-monoh ydrate, (MACROBID) 100 MG capsuleIndications :Infection due to 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 toxin-producing Escherichia coli (E.coli) TAKE 1 CAPSULE BY MOUTH TWO TIMES DAILY X 7 DAYS ONLY. AFTER TAKE 1 CAPSULE NIGHTLY FOR SUPPRESSIVE THERAPY E'COLI RECURRENT UTIs 30 capsule 3 05/14/20 25 Active estradiol (ESTRACE) 0.1 MG/GM vaginal creamIndications:I nfection due to 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 toxin-producing Escherichia coli (E.coli),Atrophic vaginitis DO NOT USE SYRINGE. PUT A PEA SIZE ON INDEX FINGER. APPLY TO VAGINAL AREA 2-3X WEEKLY 42.5 g 12 05/14/20 25 Active nystatin (MYCOSTATIN) 285268 UNIT/GM powderIndications: Yeast dermatitis,Perinea l irritation in female Apply topically to the appropriate area as directed 3 (Three) Times a Day. 60 g 3 05/14/20 25 Active atorvastatin (LIPITOR) 20 MG tablet TAKE 1 TABLET BY MOUTH DAILY 90 tablet 2 02/07/20 24 025 Discontinu ed(Reorder ) potassium chloride 10 MEQ CR tablet Take 1 tablet by mouth Daily With Breakfast. 025 Discontinu ed(Duplica te order) pantoprazole (PROTONIX) 40 MG EC tablet Take 1 tablet by mouth 2 (Two) Times a Day. 180 tablet 3 07/01/20 24 025 Discontinu ed(Histori az[facility] Med - Therapy completed) neomycin-polymyxin -dexamethamethason e (POLYDEX) 3.5-07560-5.1 ointment ophthalmic ointment APPLY SMALL AMOUNT INSIDE RIGHT EYE TWICE DAILY UNTIL NEXT APPT 10/28/19 025 Discontinu ed(*Therap y completed) albuterol sulfate [...] 3 01/29/20 25 025 Discontinu ed(Reorder ) fluconazole (DIFLUCAN) 150 MG tabletIndications: Infection due to 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 toxin-producing Escherichia coli (E.coli),Yeast vaginitis Take 1 tablet by mouth 1 (One) Time for 1 dose. MAY REPEAT IN 3 DAYS IF SYMPTOMATIC. 2 tablet 05/14/20 25 025 Active Problems Problem Noted Date Diagnosed Date Infection due to non-O157 Sh iga toxin-producing Escherichia coli (E.coli) 05/14/2025 Assessment & Plan (05/14/2025 6:23 PM EDT): MS Madison Castellanos is a 69 y.o. [...] negative for leukocyte Estrace, negative nitrites, negative for gross /microscopic hematuria. She has glucosuria 3+. PVR today is 3 mL bladder symptom score of 22 PLAN We resent her urine [...] antibiotics to protect the rectal reservoir including ibyb-dpq-osaxsqx yogurt preparations to judy oral pills containing [...] (One) Time for 1 dose. MAY REPEAT IN 3 DAYS IF SYMPTOMATIC. estradiol (ESTRACE) 0.1 MG/GM vaginal cream; DO NOT USE SYRINGE. PUT A PEA SIZE ON INDEX FINGER. APPLY TO VAGINAL AREA 2-3X WEEKLY POC Urinalysis Dipstick, Automated Yeast vaginitis 05/14/2025 Assessment & Plan (05/14/2025 6:23 PM EDT): Orders: fluconazole (DIFLUCAN) 150 MG tablet; Take 1 tablet by mouth 1 (One) Time for 1 dose. MAY REPEAT IN 3 DAYS IF SYMPTOMATIC. POC Urinalysis Dipstick, Automated Yeast dermatitis 05/14/2025 Assessment & Plan (05/14/2025 6:23 PM EDT): Orders: nystatin (MYCOSTATIN) 850798 UNIT/GM powder; Apply topically to the appropriate area as directed 3 (Three) Times a Day. POC Urinalysis Dipstick, Automated Perineal irritation in female 05/14/2025 Assessment & Plan (05/14/2025 6:23 PM EDT): Orders: nystatin (MYCOSTATIN) 539302 UNIT/GM powder; Apply topically to the appropriate area as directed 3 (Three) Times a Day. POC Urinalysis Dipstick, Automated Atrophic vaginitis 05/14/2025 Assessment & Plan (05/14/2025 6:23 PM EDT): Orders: estradiol (ESTRACE) 0.1 MG/GM vaginal cream; DO NOT USE SYRINGE. PUT A PEA SIZE ON INDEX FINGER. APPLY TO VAGINAL AREA 2-3X WEEKLY POC Urinalysis Dipstick, Automated NSAID long-term use 01/30/2025 Assessment & Plan [...] for respiratory distress or severe symptoms. Rx Hien-Bird, Jocy Nathan, follow-up if symptoms or not improving over the next few days or if symptoms worsen. Advised to use albuterol when she has wheeze Delayed gastric emptying -based on nuclear study 201609/07/2022 Headache 05/09/2022 Acute neck pain 05/09/2022 Carpal [...] Angina pectoris 05/03/2019 Overview (12/31/2020): a. Remote [facility] -- data deficit: No reported disease. b. L ight [place] with medical treatment. c. [facility], 05/12/2011, Dr. Mosley: Angiographically normal coronary [...] Encounters Date Type Department Care Team Description 05/23/2025 1:00 PM EDT - 05/23/2025 11:59 PM EDT Hospital Encounter [facility] OUTPATIENT ONCOLOGY [address] [place] [id number] Rheumatoid arthritis involving multiple sites with positive rheumatoid factor (Primary Dx) Discharge Disposition: Home or Self Care 05/23/2025 Travel 05/16/2025 Results Follow-Up [facility] [address] [facility] [address] [place] [address] Sanam Saunders APRN 05/14/2025 2:30 PM EDT Office Visit [facility] [address] [facility] [address] [place] [address] Sanam Saunders, PARVIZ Infection due to 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 toxin-producing Escherichia coli (E.coli) (Primary Dx); Yeast vaginitis; Yeast dermatitis; Perineal irritation in female; Atrophic vaginitis 05/14/2025 Travel 05/14/[address] [facility] [address] [place] [address] Sanam Saunders APRN 05/13/[address] [facility]OLOG[facility] [address] [facility] [address] [place] [phone] Khadar Julien RMA VOQUENZA 10 MG PA REQUEST; APPROVAL 05/12/[address] [facility]STRO[facility]OLOG[facility] [address] [facility] [address] [place] [address] Palak Graham PA-C 05/08/[address] [facility] [address] [facility] [address] [place] [address] STARK - CLINICAL 05/07/2025 Results Follow-Up [facility] AT [address] [place] [address] Palak Graham PA-C 05/06/2025 12:15 PM EDT Lab [facility] AT [address] [place] [address] Esophageal dysphagia; Gastroesophageal reflux disease, unspecified whether esophagitis present 05/06/2025 10:30 AM EDT Office Visit [facility] [address] [facility] [address] [place] [address] Palak Graham PA-C Esophageal dysphagia (Primary Dx); Gastroesophageal reflux disease, unspecified whether esophagitis present; History of Araseli fundoplication; History of aspiration pneumonia 05/06/[address] [facility] [address] [facility] [address] [place] [address] Palak Graham PA-C 05/06/2025 Travel 04/29/2025 9:30 AM EDT Office Visit [facility] PULMONARY & CRITICAL CARE MEDICINE [address] [facility] [address] [place] [address] Maxine Gibson APRN Seasonal allergic rhinitis due to pollen (Primary Dx); Chronic cough; GERD without esophagitis; DEVANG (obstructive sleep apnea)/suspected nocturnal hypoxemia.-by history. Intolerant of NIPPV in past. 04/29/[address] [facility] CARDIOLOGY [address] [facility] [address] [place] [address] Tristan Mosley MD Med Refill 04/29/2025 Travel 03/28/2025 12:35 PM EDT - 03/28/2025 11:59 PM EDT Hospital Encounter [facility] OUTPATIENT ONCOLOGY [address] [place] [address] Patrice Santana DO Rheumatoid arthritis involving multiple sites with positive rheumatoid factor (Primary Dx) Discharge Disposition: Home or Self Care 03/28/2025 Travel 03/27/[address] [facility] [address] [place] [address] Brennan Lee MD MED QUESTION 03/26/2025 10:10 AM EDT Office Visit [facility] [address] [place] [address] Brennan Lee MD OAB (overactive bladder) (Primary Dx); Urge incontinence; Lower urinary tract symptoms (LUTS) 03/26/2025 Travel 03/12/2025 9:20 AM EDT Office Visit [facility] [address] [facility] [address] [place] [address] Brennan Lee MD Erythema (Primary Dx) 03/12/2025 Travel 03/03/[address] [facility] [address] [place] [address] Huyen Hall MD from Last 3 Months Immunizations Immunization Administration Dates Next Due Flu Vaccine Quad PF >36MO 11/18/2021 Fluzone (or Fluarix & Flulaval for VFC) >6mos ,08/06/2020 Fluzone High-Dose 65+YRS 08/06/2024 Fluzone High-Dose 65+yrs 07/05/2023,08/29/2022 Hepatitis A 09/07/2018 INFLUENZA SPLIT TRI 08/15/2018 Influenza, Unspecified 07/16/2019 PPD Test 06/25/2001 Pneumococcal Conjugate 20-Valent (PCV20) 11/23/2 022 Pneumococcal Polysaccharide (PPSV23) 07/16/2019, 08/24/2010 Shingrix [...] Recorded In the past 12 months has [employer], gas, oil, or water [employer] threatened to shut off services in your [...] or training? Not on file Preferred Language Guyanese 01/28/2025 PHQ-2 Answer Date Recorded Retired PHQ-9: [...] 16 05/23/2025 1:44 PM EDT Oxygen Saturation 97% 05/06/2025 10:16 AM EDT Inhaled Oxygen Concentration - - Weight 89.8 kg (198 lb) 05/23/2025 1:44 PM EDT Height 152.4 cm (5') 05/23/2025 1:44 PM EDT Body Mass Index 38.67 05/23/2025 1:44 PM EDT Plan of Treatment Upcoming Encounters Date Type Department Care Team (Late st Contact Info) Description 06/03/2025 10:40 AM EDT Appointment [facility] D[facility]A [facility] [address] [place] [address] 06/05/2025 10:45 AM EDT Office Visit [facility] RHEUMATOLOGY [address] [facility] [address] [place] [address] John Sheppard APRN [address] [facility] [address] [place] [address] 06/13/2025 10:00 AM EDT Office Visit [facility] UR[facility] [address] [address] Sanam Saunders, PARVIZ [address] [facility] [address] [place] [phone] 07/01/2025 11:00 AM EDT Office Visit [facility] UR[facility] [address] [address] Brennan Lee MD [address] [address] 07/16/2025 10:30 AM EDT Office Visit [facility] GASTROENTEROLOGY [address] [facility] [address] [place] [address] Palak Graham PAArnaldoC [address] [facility] [address] [place], [place] [phone] 07/18/2025 11:30 AM EDT Appointment [facility] OUTPATIENT ONCOLOGY [address] [place] [address] 07/31/2025 10:00 AM EDT Office Visit [facility] PULMONARY & CRITICAL CARE MEDICINE [address] [facility] [address] [place] [address] Maxine Gibson, BELT BUILDER HELPER [address] [place] [address] Health Maintenance Due Date Last Done Comments COLOGUARD 2002 COLON CANCER SCREENING 5 YEA R SIGMOIDOSCOPY 2002 [address] COLONOGRAPHY 2002 FIT Testing (1 year) 2002 URINE MICROALBUMIN-CREATININ E RATIO (uACR) 04/13/2022 04/13/2021, 04/07/2020, 07/16/2019 TDAP/TD VACCINES (2 - Td or Tdap) 04/24/2022 012 DIABETIC FOOT EXAM 01/05/2024 01/04/2023, 0 01/04/2023, 01/04/2023, Additional history exists [facility] PLAN OF CARE 02/07/2024 ANNUAL WELLNESS VISIT 04/13/2024 04/13/2023 , 04/13/2021, 04/07/2020, Additional history exists FECAL OCCULT BLOOD TEST 04/13/2024 04/13/20 23, 01/14/2021, 11/07/2018 COVID-19 Vaccine (2023-2 5 season) [...] day. Notes: Medical Devices Implanted Type Area Wildlife Forensic Geneticist Device Identifier Shelf Expiration Date Model / Serial / Lot Pk Imp Trial Basic Bilat W/Ext Neurostm/Pne Ld Imp Kt - [id number] Implanted:Qty: 1 on 02/04/2025 by Brennan Lee MD at [facility] Implant N/A: Back [employer] 07/15/2025 [id number] / / [id number] Ld Neurostm Sacral Pne - [id number] Implanted:Qty: 1 on 02/04/2025 by Brennan Lee MD at [facility] Implant Back [employer] 02/20/2027 1901 / / [id number] Neurostm Sacral/Nerv [employer] Nonrechg W/Torq Wrench - [id number] Implanted:Qty: 1 on 02/20/2025 by Brennan Lee MD at [facility] Implant N/A: Back [employer] 12/12/2025 [id number] / / [id number] Kt Ld Stim Tined [employer] W/2/Sty Str/Crv - [id number] Implanted:Qty: 1 on 02/20/2025 by Brennan Lee MD at [facility] Implant N/A: Back [employer] 02/27/2027 1201 / / [id number] Procedures Procedure Name Priority Date/Time Associated Diagnosis Comments POCT URINALYSIS DIPSTICK, AUTOMATED Routine 05/14/2025 3:56 PM EDT Infection due to 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 toxin-producing Escherichia coli (E.coli) Yeast vaginitis Yeast dermatitis Perineal irritation in female Atrophic vaginitis SCANNED - LABS 05/14/2025 CBC AND DIFFERENTIAL Routine 05/06/2025 12:01 PM [...] Gastroesophageal reflux disease, unspecified whether esophagitis present POCT GLYCOSYLATED HEMOGLOBIN (HGB A1C) Routine 04/15/2024 [...] Recently Relevant to Health Maintenance Results * (ABNORMAL) POC Urinalysis Dipstick, Automated (05/14/2025 3:56 PM EDT) Color Yellow Yellow, Straw, Dark Yellow, Ann [facility] Clarity, UA Slightly Cloudy(A) Clear [facility] Specific [place] 1.015 1.005 - 1.030 [facility] pH, Urine 6.0 5.0 - 8.0 [facility] Leukocytes Negative Negative [facility] Nitrite, UA Negative Negative [facility] Protein, POC Negative Negative mg/dL [facility] Glucose, UA 3+(A) Negative mg/dL [facility] Ketones, UA Negative Negative [facility] Urobilinogen, UA 0.2 E.U./dL Normal, 0.2 E.U./dL [facility] Bilirubin Negative Negative [facility] Blood, UA Negative Negative [facility] Lot Number [id number] [facility] Expiration Date 07/20/2026 [facility] Urine 05/14/2025 3:56 PM EDT Sanam Saunders APRN POINT OF CARE TEST ORDE RABLES Final Result [facility]
[address] [place] [address], * LABS SCANNED (05/14/2025) Sanam Suanders APRN LAB BLOOD ORDERABLES Fi nal Result * TSH Rfx On Abnormal To Free T4 (05/06/2025 12:01 PM EDT) [facility] TSH 2.680 0.270 - 4.200 uIU/mL 05/06/2025 7:29 PM EDT [facility] Blood Venipuncture / Unknown 05/06/2025 12:01 PM EDT 05/06/2025 12:01 PM EDT Palak Graham PA-C LAB BLOOD ORDERABLES Final Result [facility]
[address] [place] [address], * (ABNORMAL) CBC Auto Differential (05/06/2025 12:01 PM EDT) WBC 6.88 3.40 - 10.80 10*3/mm3 05/06/2025 6:48 PM EDT [facility] RBC 4.42 3.77 - 5.28 10*6/mm3 05/06/2025 6:48 PM EDT [facility] Hemoglobin 13.5 12.0 - 15.9 g/dL 05/06/2025 6:48 PM EDT [facility] Hematocrit 41.0 34.0 - 46.6 % 05/06/2025 6:48 PM EDT [facility] MCV 92.8 79.0 - 97.0 fL 05/06/2025 6:48 PM EDT [facility] MCH 30.5 26.6 - 33.0 pg 05/06/2025 6:48 PM EDT [facility] MCHC 32.9 31.5 - 35.7 g/dL 05/06/2025 6:48 PM EDT [facility] RDW 13.1 12.3 - 15.4 % 05/06/2025 6:48 PM EDT [facility] RDW-SD 44.8 37.0 - 54.0 fl 05/06/2025 6:48 PM EDT [facility] MPV 10.0 6.0 - 12.0 fL 05/06/2025 6:48 PM EDT [facility] Platelets 314 140 - 450 10*3/mm3 05/06/2025 6:48 PM EDT [facility] Neutrophil % 41.1(L) 42.7 - 76.0 % 05/06/2025 6:48 PM EDT [facility] Lymphocyte % 37.1 19.6 - 45.3 % 05/06/2025 6:48 PM EDT [facility] Monocyte % 14.8(H) 5.0 - 12.0 % 05/06/2025 6:48 PM EDT [facility] Eosinophil % 5.4 0.3 - 6.2 % 05/06/2025 6:48 PM EDT [facility] Basophil % 0.7 0.0 - 1.5 % 05/06/2025 6:48 PM EDT [facility] Immature Grans % 0.9(H) 0.0 - 0.5 % 05/06/2025 6:48 PM EDT [facility] Neutrophils, Absolute 2.83 1.70 - 7.00 10*3/mm3 05/06/2025 6:48 PM EDT [facility] Lymphocytes, Absolute 2.55 0.70 - 3.10 10*3/mm3 05/06/2025 6:48 PM EDT [facility] Monocytes, Absolute 1.02(H) 0.10 - 0.90 10*3/mm3 05/06/2025 6:48 PM EDT [facility] Eosinophils, Absolute 0.37 0.00 - 0.40 10*3/mm3 05/06/2025 6:48 PM EDT [facility] Basophils, Absolute 0.05 0.00 - 0.20 10*3/mm3 05/06/2025 6:48 PM EDT [facility] Immature Grans, Absolute 0.06(H) 0.00 - 0.05 10*3/mm3 05/06/2025 6:48 PM EDT [facility] nRBC 0.0 0.0 - 0.2 /100 WBC 05/06/2025 6:48 PM EDT [facility] Blood Venipuncture / Unknown 05/06/2025 12:01 PM EDT 05/06/2025 12:01 PM EDT us Palak Graham PA-C LAB BLOOD ORDERABLES Final Result [facility]
[address] [place] [address], * (ABNORMAL) Comprehensive Metabolic Panel (05/06/2025 12:01 PM EDT) [facility] Signature Glucose 150(H) 65 - 99 mg/dL 05/06/2025 7:23 PM EDT [facility] BUN 17.0 8.0 - 23.0 mg/dL 05/06/2025 7:23 PM EDT [facility] Creatinine 0.85 0.57 - 1.00 mg/dL 05/06/2025 7:23 PM EDT [facility] Sodium 141 136 - 145 mmol/L 05/06/2025 7:23 PM EDT [facility] Potassium 4.0 3.5 - 5.2 mmol/L 05/06/2025 7:23 PM EDT [facility] Chloride 101 98 - 107 mmol/L 05/06/2025 7:23 PM EDT [facility] CO2 27.3 22.0 - 29.0 mmol/L 05/06/2025 7:23 PM EDT [facility] Calcium 9.4 8.6 - 10.5 mg/dL 05/06/2025 7:23 PM EDT [facility] Total Protein 7.7 6.0 - 8.5 g/dL 05/06/2025 7:23 PM EDT [facility] Albumin 4.0 3.5 - 5.2 g/dL 05/06/2025 7:23 PM EDT [facility] ALT (SGPT) 21 1 - 33 U/L 05/06/2025 7:23 PM EDT [facility] AST (SGOT) 18 1 - 32 U/L 05/06/2025 7:23 PM EDT [facility] Alkaline Phosphatase 98 39 - 117 U/L 05/06/2025 7:23 PM EDT [facility] Total Bilirubin 0.3 0.0 - 1.2 mg/dL 05/06/2025 7:23 PM EDT [facility] Globulin 3.7 gm/dL 05/06/2025 7:23 PM EDT [facility] A/G Ratio 1.1 g/dL 05/06/2025 7:23 PM EDT [facility] BUN/Creatinine Ratio 20.0 7.0 - 25.0 05/06/2025 7:23 PM EDT [facility] Anion Gap 12.7 5.0 - 15.0 mmol/L 05/06/2025 7:23 PM EDT [facility] eGFR 75.2 >60.0 mL/min/1.7 3 05/06/2025 7:23 PM EDT [facility] Blood Venipuncture / Unknown 05/06/2025 12:01 PM EDT 05/06/2025 12:01 PM EDT [facility] - 05/06/2025 7:23 PM [...] Graham PA-C LAB BLOOD ORDERABLES Final Result [facility]
[address] [place] [address], * (ABNORMAL) POC Glycosylated Hemoglobin (Hb A1C) (04/15/2024 3:58 PM EDT) Hemoglobin A1C 5.6 4.5 - 5.7 % [facility] Lot Number [id number] [facility] Expiration Date 12/31/2025 [facility] Blood 04/15/2024 3:58 PM EDT Huyen Pal MD POINT OF CARE TEST ORDERABL ES Final Result [facility]
[address] [place] [address], * (ABNORMAL) Hepatitis Panel, Acute (04/12/2024 11:29 AM EDT) Pathologist [facility] Hepatitis B Surface Ag Non-Reacti ve Non-Reacti ve 04/13/2024 1:52 AM EDT [facility] Hep A IgM Reactive(A ) Non-Reacti ve 04/13/2024 1:52 AM EDT [facility] Hep B C IgM Non-Reacti ve Non-Reacti ve 04/13/2024 1:52 AM EDT [facility] Hepatitis C Ab Non-Reacti ve Non-Reacti ve 04/13/2024 1:52 AM EDT [facility] Blood Venipuncture / Unknown 04/12/2024 11:29 AM EDT 04/12/2024 11:32 AM EDT Narrative [facility] - 04/13/2024 1:52 AM EDT Results may be falsely decreased if patient taking Biotin. Patrice Santana DO LAB BLOOD ORDERABLES F inal Result [facility]
[address] [place] [address], * DEXA Scan (04/10/2024 12:14 PM EDT) Anatomical Region Laterality Modality Other Historical Provider MD PEDRAZA CHART REVIEW TABS Maira l Result * (ABNORMAL) Lipid Panel (02/21/2024 10:20 AM EDT) Total Cholesterol 143 0 - 200 mg/dL 02/21/2024 11:45 PM EDT [facility] Triglycerides 212(H) 0 - 150 mg/dL 02/21/2024 11:45 PM EDT [facility] HDL Cholesterol 37(L) 40 - 60 mg/dL 02/21/2024 11:45 PM EDT [facility] LDL Cholesterol 71 0 - 100 mg/dL 02/21/2024 11:45 PM EDT [facility] [facility] VLDL Cholesterol 35 5 - 40 mg/dL 02/21/2024 11:45 PM EDT [facility] LDL/HDL Ratio 1.72 02/21/2024 11:45 PM EDT [facility] Blood Structure of right upper limb / Unknown Venipuncture / Unknown 02/21/2024 10:20 AM EDT 02/21/2024 10:20 AM EDT Narrative [facility] - 02/21/2024 11:45 PM EDT Cholesterol [...] Pal MD LAB BLOOD ORDERABLES Final Result [facility]
[address] [id number], * SCANNED - EYE EXAM (07/20/2023) Anatomical [...] secondary signs of malignancy. Huyen Pal MD [facility] ORDERABLES Final Result * POCT occult blood x 1 stool (04/13/2023 11:32 AM EDT) Fecal Occult Blood Negative Negative [facility] Lot Number [id number] [facility] Expiration Date 11/15/2024 [facility] DEVELOPER LOT NUMBER [id number] [facility] DEVELOPER EXPIRATION DATE 02/12/2025 [facility] Positive Control Positive Positive [facility] Negative Control Negative Negative [facility] Stool 04/13/2023 11:3 2 AM EDT Huyen Pal MD POINT OF CARE TEST ORDERABL ES Final Result [facility]
[address] [place] [address], [place] [phone] * Microalbumin / Creatinine Urine Ratio - [...] 2:11 PM EDT 04/14/2021 Comment:URINE RELEASE TO [facility] I Narrative [facility] ([facility]) - 04/14/2021 10:09 AM EDT Performed at: 01 - [address] [id number] Access Rn: Jean Stephens PhD, Phone: [phone] Huyen Pal MD URINE ORDERABLES Final Resu lt Performing Organization Address City/[facility] [address]/ZIP Co de Phone Number [facility] ([facility]) [address] [place], [place] [id number], [facility] [address] [place] [address], [place] [phone] * SCANNED - INFLUENZA (07/16/2019) Huyen Pal [...] Documents on File Type Date Recorded 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
--- OUTSIDE RECORDS SUMMARY | 2025-05-25 06:24 | XMS_ITS | Encounter Summary ---
[facility] Address [address] [place] [address] Care Team Providers Care Impregnating Machine Operator Name Role Phone Reza Panchal MD Primary Care Provider +1- [phone] Reason for Visit * Reason Onset Date Comments Med Refill 04/29/2025 Encounter Details Date Type Department Care Team (Late st Contact Info) Description 04/29/2025 Refill [facility] C[facility]IOLOG[facility] [address] [address] Tristan Mosley MD 1720 [facility] [address] [place] [address] Med Refill Social History Tobacco Use Types Packs/Day Years Used Date Smoking Tobacco: Never Passive Smoke Exposure: Past Smokeless Tobacco: Never Comments: smokes, for 45 years Alcohol Use Standard Drinks/Week Comments No 0 (1 standard drink = 0.6 oz pur e alcohol) [facility] Utilities Answer Date Recorded In the past 12 months has [employer] electric, gas, oil, or water company threatened [...] or training? Not on file Preferred Language Somali 01/28/2025 PHQ-2 Answer Date Recorded Retired PHQ-9: [...] Info) Description 06/03/2025 10:40 AM EDT Appointment [facility] [address] [place] [address] 06/05/2025 10:45 AM EDT Office Visit [facility] RHEUMATOLOGY 330 [facility] 100 [place] [address] John Sheppard, PARVIZ 330 [facility] 100 [place] [address] 06/13/2025 10:00 AM EDT Office Visit [facility] UROLOGY [address] [address] Sanam Saunders, HOUSEKEEPER/CUSTODIAN/LAUNDRY WORKER [address] [facility] [address] [place] [phone] 07/01/2025 11:00 AM EDT Office Visit [facility] UROLOGY [address] [address] Brennan Lee MD [address] [address] 07/16/2025 10:30 AM EDT Office Visit [facility] GASTROENTEROLOGY 1720 [facility] 302 [place] [phone] Palak Graham PA-C 1720 [facility] 302 [place] [address] 07/18/2025 11:30 AM EDT Appointment [facility] OUTPATIENT ONCOLOGY [address] [place] [address] 07/31/2025 10:00 AM EDT Office Visit [facility] PULMONARY & CRITICAL CARE MEDICINE [address] [facility] [address] [place] [address] Maxine Gibson, HOUSEKEEPER/CUSTODIAN/LAUNDRY WORKER [address] [place] [address] documented as of this encounter Goals Goal [...] documented as of this encounter Care Teams Impregnating Machine Operator Relationship Specialty Start Date End Date Reza Panchal MD [address] [place] [address] PCP - General Family Medicine 09/30/24 documented as of this encounter
--- OUTSIDE RECORDS SUMMARY | 2025-05-25 06:24 | XMS_ITS | Encounter Summary ---
[facility] Organization [facility] Address [address] [place] [address] Care Team Providers Care Him Analyst Name Role Phone Reza Panchal MD Primary Care Provider +1- [phone] Reason for Visit * Reason Comments Med Refill Encounter Details Date Type Department Care Team (Late st Contact Info) Description 02/24/2023 Refill [facility] PRIMARY CARE [address] [address] Huyen Hall MD [address] [address] Type 2 diabetes mellitus with hyperglycemia, without [...] Never 05/09/2022 Overall Financial Resource Strain (CARDIA) Yesicae r [...] EDT Appointment [facility] [place] [address] [place] [phone] 06/05/2025 10:45 AM EDT Office Visit [facility] RHEUMATOLOGY [address] [address] John Sheppard, REED DIPPER [address] [address] 06/13/2025 10:00 AM EDT Office Visit [facility] UROLOGY [address] [address] Sanam Saunders, REED DIPPER 1760 [facility] [address] [place] [address] 07/01/2025 11:00 AM EDT Office Visit [facility] UROLOGY 1760 [facility] [address] [place] [address] Brennan Lee MD 1760 [facility] [address] [place] [address] 07/16/2025 10:30 AM EDT Office Visit [facility] GASTROENTEROLOGY 1720 [facility] [address] [place] [address] Palak Graham PA-C 1720 [facility] [address] [place] [address] 07/18/2025 11:30 AM EDT Appointment [facility] OUTPATIENT ONCOLOGY 1740 [place] [address] 07/31/2025 10:00 AM EDT Office Visit [facility] PULMONARY & CRITICAL CARE MEDICINE 3000 [facility] [address] [place] [address] Maxine Gibson, REED DIPPER [address] [place] [address] documented as of this encounter Visit Diagnoses [...] Noted Time PHQ-2 Depression Total Score: 1 03/22/20 23 11:09 AM EDT documented as of this encounter Care Teams Him Analyst Relationship Specialty Start Date End Date Reza Panchal MD [facility] [place] [address] PCP - General Family Medicine 09/30/24 documented as of this encounter
--- OUTSIDE RECORDS SUMMARY | 2025-05-25 06:24 | XMS_ITS | Encounter Summary ---
Author Organization [facility] Address [address] [place] [address] Care Team Providers Care Guard Museum Name Role Phone Reza Panchal MD Primary Care Provider +1- [phone] Encounter Details Date Type Department Care Team (Late st Contact Info) Description 05/06/2025 Telephone [facility] GASTROENTEROLOGY [address] [address] Robert Graham, PAArnaldoC 1720 [facility] [address] [place] [address] Social History Tobacco Use Types Packs/Day Years Used Date Smoking Tobacco: Never Passive Smoke Exposure: Past Smokeless Tobacco: Never Comments: smokes, for 45 years Alcohol Use Standard Drinks/Week Comments No 0 (1 standard drink = 0.6 oz pur e alcohol) [facility] Utilities Answer Date Recorded In the past 12 months has [employer] electric, gas, oil, or water company threatened [...] or training? Not on file Preferred Language Nigerien 01/28/2025 PHQ-2 Answer Date Recorded Retired PHQ-9: Brief Depression Severity Measure Score 7 05/20/2024 Comments No Sex and Gender Information Value Date Recorded Sex Assigned at Female 01/09/2025 11:01 AM EDT Legal Sex Female 12:37 PM EDT Gender Identity Not on file Sexual Orientation Not on file documented as of this encounter Miscellaneous Notes * Telephone Encounter - AnayaKhadarHEMAL negro - 05/06/2025 3:30 PM EDT I SPOKE WITH DANIEL PATIENT'S GRANDDAUGHTER. INFORMED HER THAT ROBERT WANTS PATIENT TO HAVE EGD FIRST BEFORE ANY ADDITIONAL TESTS. DANIEL VOICED UNDERSTANDING. documented in this encounter Plan of Treatment Upcoming Encounters Date Type Department Care Team (Late st Contact Info) Description 06/03/2025 10:40 AM EDT Appointment [address] [address] 06/05/2025 10:45 AM EDT Office Visit [facility] RHEUMATOLOGY 330 [facility] 100 [place] [address] John Sheppard, PARVIZ [address] [address] 06/13/2025 10:00 AM EDT Office Visit [facility] UROLOGY [address] [address] Sanam Saunders, MECHANICAL ENGINEERING COOP 1760 [facility] [address] [place] [address] 07/01/2025 11:00 AM EDT Office Visit [facility] UROLOGY [address] [address] Brennan Lee MD [address] [address] 07/16/2025 10:30 AM EDT Office Visit [facility] GASTROENTEROLOGY 1720 [facility] [address] [place] [address] Robert Graham PA-C [address] [place] [address] 07/18/2025 11:30 AM EDT Appointment [facility] OUTPATIENT ONCOLOGY [address]40 [place] [address] 07/31/2025 10:00 AM EDT Office Visit [facility] PULMONARY & CRITICAL CARE MEDICINE 3000 [facility] [address] [place] [address] Maxine Gibson, MECHANICAL ENGINEERING COOP 2400 [place] [address] documented as of this encounter Goals Goal Patient Goal Type Associated Problems Recent Progress Patient-Stated? Author Track and Manage My Blood Pressure Patient Goals No Nahtalia Phelan RN Note: [...] documented as of this encounter Care Teams Guard Museum Relationship Specialty Start Date End Date Reza Panchal MD [facility] [place] [address] PCP - General Family Medicine 09/30/24 documented as of this encounter
--- OUTSIDE RECORDS SUMMARY | 2025-05-25 06:24 | XMS_ITS | Clinical Summary ---
Author Organization [facility] Address [address] [facility] [address] [place] [address] Phone Care Team Providers Care Bpm Analyst Name Role Phone Unavailable Unavailable Conditions or Problems No information available. Medications No information available. Medications Administered No information available. Allergies, Adverse Reactions, Alerts No information available. Results No information available. Plan of Care No information available. Procedures No information available. Vital Signs No information available. Immunizations No information available. Advance Directives No information available.
--- OUTSIDE RECORDS SUMMARY | 2025-05-25 06:24 | XMS_ITS ---
Author Name Ephraim RN, LEGAL ADMINISTRATIVE ASSISTANT, Leigh martinez Sarina Address [address] [address] Phone [phone] Organization [facility] Care Team Providers Care Rag Baler Name Role Phone Ivonne Ye Unavailable [phone] Reason for Referral Not Available Allergies, adverse [...] Tab TAKE 1 TABLET BY [facility] ONCE DAILY IN AM [...] mg Cap TAKE 1 CAPSULE BY [facility] TWICE DAILY FOR 10 DAYS 2024-08-14 No [...] EVERY 12 HOURS 2024-01-03 No Data Available Atdxgoet-Gdautrcen-Msnfmjvz [id number] Suspension SHAKE LIQUID AND INSTILL 1 DROP [...] mplaint [facility] 7 Day Disch [place], [place], [place] 12/25/2024 Encntr for f/u exam aft trtm t for cond oth than malig neoplmSepsis, unspecified organism [facility] 7 Day Disch [place] 12/25/2024 Encntr for f/u exam aft trtm t for cond oth than malig neoplmSepsis, unspecified organism [facility] 7 Day Disch [place] 12/25/2024 Encntr for f/u exam aft trtm t for cond oth than malig neoplmSepsis, unspecified organism [facility] 7 Day Disch [place] 12/25/2024 Encntr for f/u exam aft trtm t for cond oth than malig neoplmSepsis, unspecified organism Telephone E/M Service; 5-10 min of Medical Discussion (Audio Only) [place], 12/27/2024 Sepsis, unspecified organism Telephone E/M Service; 5-10 min of Medical Discussion (Audio Only) [place], 12/27/2024 Sepsis, unspecified organism Vital Signs Date of Collection Vitals 2024-12-25 14:07:15 BP Diastolic - 79.0 mm[Hg]BP Systolic - 143.0 mm[Hg]Heart Rate - 92.0 /min Social History Sex Female History of Procedures Procedures Service Procedure code Service date Servicing provider Phone# [facility] 7 Day Disch [id number] 2024-12-25 No Data Available No Data Avail [...] 5-10 min of Medical Discussion (Audio Only) [id number] 2024-12-27 No Data Available No Data Availa [...] getting around the house wellLana Erica is POA/scale tank operator - she comes over and cooks meals, cleans the house, brings her to appts and the grocery store because pt gets out of breath with too much walkingPD will be a phone visit (Cannot be the following states: [place], [place], [place], [place], [place], [place], [place], [place], [place])Pt Agreed to a post discharge visit with a [facility] Provider: with Ivelisse Reed Friday, December 27, 2024 4:00pm ESTRN reinforced availability of UC provider 24/ for 30 days after discharge and encouraged CB w/ any concerns or if pt is worse in any way. Advised pt to call to reach our staff.Needs/concerns for [facility] provider to address during PD visit: 1) [...] review 2024-12-27 Type of Visit: [facility]: [facility] Date: 12/19/24Discharge diagnosis: Sepsis, [...]
--- OUTSIDE RECORDS SUMMARY | 2025-05-25 06:24 | XMS_ITS | Encounter Summary ---
Author Organization [facility] Address [address] [place] [address] Care Team Providers Care Etl Lead Name Role Phone Reza Panchal MD Primary Care Provider +1- [phone] Encounter Details Date Type Department Care Team [...] or training? Not on file Preferred Language Andorran 01/28/2025 PHQ-2 Answer Date Recorded Retired PHQ-9: [...] Info) Description 06/03/2025 10:40 AM EDT Appointment [facility] [address] [place] [address] 06/05/2025 10:45 AM EDT Office Visit [facility] RHEUMATOLOGY 330 [facility] 100 [place] [address] John Sheppard, ANALYTICAL MANAGER 330 [facility] 100 [place] [address] 06/13/2025 10:00 AM EDT Office Visit [facility] UROLOGY 1760 [facility] 502 [place] [address] Sanam Saunders, ANALYTICAL MANAGER 1760 [facility] [address] [place] [address] 07/01/2025 11:00 AM EDT Office Visit [facility] UROLOGY 1760 [facility] 502 [place] [address] Brennan Lee MD 1760 [facility] 502 [place] [address] 07/16/2025 10:30 AM EDT Office Visit [facility] GASTROENTEROLOGY 1720 [facility] 302 [place] [address] Palak Graham PADelano 1720 [facility] [address] [place] [address] 07/18/2025 11:30 AM EDT Appointment [facility] OUTPATIENT ONCOLOGY 1740 [place] [address] 07/31/2025 10:00 AM EDT Office Visit [facility] PULMONARY & CRITICAL CARE MEDICINE 3000 [facility] 240 [place] [address] Maxine Gibson, ANALYTICAL MANAGER [address] [place] [address] documented as of this encounter Goals Goal [...] Skin Clean and Dry Patient Goals No Natahlia Phelan RN Note: Follow Up Date - [...] documented as of this encounter Care Teams Etl Lead Relationship Specialty Start Date End Date Reza Panchal MD [address] [phone] PCP - General Family Medicine 09/30/24 documented as of this encounter
--- OUTSIDE RECORDS SUMMARY | 2025-05-25 06:24 | XMS_ITS | Encounter Summary ---
Author Organization [facility] Address [address] [place] [address] Care Team Providers Care Electric Razor Mechanic Name Role Phone Reza Panchal MD Primary Care Provider +1- [phone] Reason for Visit * Reason Onset Date Comments MED QUESTION 03/27/2025 Encounter Details Date Type Department Care Team (Late st Contact Info) Description 03/27/2025 Telephone [facility] UROLOGY 1760 [place] [address] Brennan Santillan MD 1760 [place] [address] MED QUESTION Social History Tobacco Use Types Packs/Day Years Used Date Smoking Tobacco: Never Passive Smoke Exposure: Past Smokeless Tobacco: Never Comments: smokes, for 45 years Alcohol Use Standard Drinks/Week Comments No 0 (1 standard drink = 0.6 oz pur e alcohol) [facility] Utilities Answer Date Recorded In the past 12 months has [employer], gas, oil, or water company threatened to [...] or training? Not on file Preferred Language Ivorian 01/28/2025 PHQ-2 Answer Date Recorded Retired PHQ-9: [...] Relationship: GRAND DAUGHTER Best call back number: [phone] What is the best time to reach you: ANY Who are you requesting to speak with (clinical staff, provider, specific staff member): DR SANTILLAN Do you know the name of the person who called: GRANDDAUGHTER What was the call regarding: CALLING PT SAW ON 03/26/25 AND THOUGHT HE WOULD BE PUTTING HER ONANOTHER WEEK OF ANTIBIOTICS. PLEASE CALL BACK TO DISCUSS WHAT NEXT STEPS ARE. THANK YOU. Is it okay if the provider responds through ReviewProhart: YES documented in this encounter Plan of Treatment Upcoming Encounters Date Type Department Care Team (Late st Contact Info) Description 06/03/2025 10:40 AM EDT Appointment [address] [address] 06/05/2025 10:45 AM EDT Office Visit [facility] RHEUMATOLOGY [address] [place] [address] [place] [address] John Sheppard, FOOD MIXER 330 [facility] 100 [place] [address] 06/13/2025 10:00 AM EDT Office Visit [facility] UROLOGY 1760 [facility] 502 [place] [address] Sanam Saunders, FOOD MIXER 1760 [facility] [address] [place] [address] 07/01/2025 11:00 AM EDT Office Visit [facility] UROLOGY 1760 [facility] 502 [place] [address] Brennan Santillan MD 1760 [facility] 502 [place] [address] 07/16/2025 10:30 AM EDT Office Visit [facility] GASTROENTEROLOGY 1720 [facility] 302 [place] [address] Palak Graham PA-C 1720 [facility] 302 [place] [address] 07/18/2025 11:30 AM EDT Appointment [facility] OUTPATIENT ONCOLOGY [address] [place] [phone] 07/31/2025 10:00 AM EDT Office Visit [facility] PULMONARY & CRITICAL CARE MEDICINE 3000 [facility] 240 [place] [address] Maxine Gibson, PARVIZ 2400 [place] [address] documented as of this encounter Goals Goal [...] documented as of this encounter Care Teams Electric Razor Mechanic Relationship Specialty Start Date End Date Reza Panchal MD [address] [place] [address] PCP - General Family Medicine 09/30/24 documented as of this encounter
--- OUTSIDE RECORDS SUMMARY | 2025-05-25 06:24 | XMS_ITS | Encounter Summary ---
[facility] Address [address] [place] [address] Care Team Providers Care Seaport Planning Manager Name Role Phone Reza Panchal MD Primary Care Provider +1- [phone] Reason for Visit * Reason Comments Med Refill Encounter Details Date Type Department Care Team (Late st Contact Info) Description 12/19/2021 Refill [facility] PRIMARY CARE [address] [address] Dia Underwood MD 2039 [facility] 100 [place] [address] Social History Tobacco Use Types Packs/Day Years [...] EDT Appointment [facility] [address] [place] [address] 06/05/2025 10:45 AM EDT Office Visit [facility] RHEUMATOLOGY [address] [address] John Sheppard APPLICATION SUPPORT LEAD [address] [address] 06/13/2025 10:00 AM EDT Office Visit [facility] UROLOGY [address] [address] Sanam Saunders, APPLICATION SUPPORT LEAD 1760 [facility] [address] [place] [address] 07/01/2025 11:00 AM EDT Office Visit [facility] UROLOGY [address] [phone] Brennan Lee MD [address] [address] 07/16/2025 10:30 AM EDT Office Visit [facility] GASTROENTEROLOGY [address] [place] [address] Palak Graham PA-C [address] [place] [address] 07/18/2025 11:30 AM EDT [facility]ment [facility] [address] [place] [address] 07/31/2025 10:00 AM EDT Office Visit [facility] PULMONARY & CRITICAL CARE MEDICINE 3000 [facility] [address] [place] [address] Maxine Gibson, PARVIZ [address] [place] [address] documented as of this encounter Visit Diagnoses [...] documented as of this encounter Care Teams Seaport Planning Manager Relationship Specialty Start Date End Date Reza Panchal MD [address] [address] PCP - General Family Medicine 09/30/24 documented as of this encounter
--- OUTSIDE RECORDS SUMMARY | 2025-05-25 06:24 | XMS_ITS | Encounter Summary ---
Author Organization [facility] Address [address] [place] [address] Care Team Providers Care Architect Intern Name Role Phone Reza Panchal MD Primary Care Provider +1- [phone] Encounter Details Date Type Department Care Team (Latest Contact Info) Description 05/06/2025 Travel Social History Tobacco Use Types Packs/Day Years Used Date Smoking Tobacco: Never Passive Smoke Exposure: Past Smokeless Tobacco: Never Comments: smokes, for 45 years Alcohol Use Standard Drinks/Week Comments No 0 (1 standard drink = 0.6 oz pur e alcohol) [facility] Utilities Answer Date Recorded In [...] Info) Description 06/03/2025 10:40 AM EDT Appointment [facility] DEXA YOEL [address] [place] [address] 06/05/2025 10:45 AM EDT Office Visit [facility] RHEUMATOLOGY 330 [facility] 100 [place] [address] John Sheppard, CONDUIT INSTALLER 330 [facility] 100 [place] [address] 06/13/2025 10:00 AM EDT Office Visit [facility] UROLOGY 1760 [facility] 502 [place] [address] Sanam Saunders, CONDUIT INSTALLER 1760 [facility] [address] [place] [address] 07/01/2025 11:00 AM EDT Office Visit [facility] UROLOGY 1760 [facility] 502 [place] [address] Brennan Lee MD 1760 [facility] 502 [place] [address] 07/16/2025 10:30 AM EDT Office Visit [facility] GASTROENTEROLOGY 1720 [facility] 302 [place] [address] Palak Graham PADelano 1720 [facility] [address] [place] [address] 07/18/2025 11:30 AM EDT Appointment [facility] OUTPATIENT ONCOLOGY 1740 [place] [address] 07/31/2025 10:00 AM EDT Office Visit [facility] PULMONARY & CRITICAL CARE MEDICINE 3000 [facility] 240 [place] [address] Maxine Gibson, CONDUIT INSTALLER [address] [place] [address] documented as of this encounter Goals Goal [...] documented as of this encounter Care Teams Architect Intern Relationship Specialty Start Date End Date Reza Panhcal MD [address] [phone] PCP - General Family Medicine 09/30/24 documented as of this encounter
--- OUTSIDE RECORDS SUMMARY | 2025-05-25 06:24 | XMS_ITS | Encounter Summary ---
Author Organization [facility] Address [address] [place] [address] Care Team Providers Care Recycler Forklift Driver Truck Driver Name Role Phone Reza Panchal MD Primary Care Provider +1- [phone] Encounter Details Date Type Department Care Team [...] Info) Description 06/03/2025 10:40 AM EDT Appointment [facility] DEXA YOEL [address] [place] [address] 06/05/2025 10:45 AM EDT Office Visit [facility] RHEUMATOLOGY 330 [facility] 100 [place] [address] John Sheppard, BUFFET ATTENDANT 330 [facility] 100 [place] [address] 06/13/2025 10:00 AM EDT Office Visit [facility] UROLOGY 1760 [facility] 502 [place] [address] Sanam Saunders, BUFFET ATTENDANT 1760 [facility] [address] [place] [address] 07/01/2025 11:00 AM EDT Office Visit [facility] UROLOGY 1760 [facility] 502 [place] [address] Brennan Lee MD 1760 [facility] 502 [place] [address] 07/16/2025 10:30 AM EDT Office Visit [facility] GASTROENTEROLOGY 1720 [facility] 302 [place] [address] Palak Graham PADelano 1720 [facility] [address] [place] [address] 07/18/2025 11:30 AM EDT Appointment [facility] OUTPATIENT ONCOLOGY 1740 [place] [address] 07/31/2025 10:00 AM EDT Office Visit [facility] PULMONARY & CRITICAL CARE MEDICINE 3000 [facility] 240 [place] [address] Maxine Gibson, BUFFET ATTENDANT [address] [place] [address] documented as of this encounter Goals Goal [...] documented as of this encounter Care Teams Recycler Forklift Driver Truck Driver Relationship Specialty Start Date End Date Reza Panchal MD [address] [phone] PCP - General Family Medicine 09/30/24 documented as of this encounter
--- OUTSIDE RECORDS SUMMARY | 2025-05-25 06:24 | XMS_ITS | Encounter Summary ---
Author Organization [facility] Address [address] [place] [address] Care Team Providers Care Hands Hanger Name Role Phone Reza Panchal MD Primary Care Provider +1- [phone] Reason for Visit * Reason Onset Date Comments DR SANTILLAN - CLINICAL 05/08/2025 Encounter Details Date Type Department Care Team (Late st Contact Info) Description 05/08/2025 Telephone [facility] UROLOGY 1760 [place] [address] Brennan Santillan MD 1760 [place] [address] DR SANTILLAN - CLINICAL Social History Tobacco Use Types Packs/Day Years Used Date Smoking Tobacco: Never Passive Smoke Exposure: Past Smokeless Tobacco: Never Comments: smokes, for 45 years Alcohol Use Standard Drinks/Week Comments No 0 (1 standard drink = 0.6 oz pur e alcohol) [facility] Utilities Answer Date Recorded In the past 12 months has [employer], gas, oil, or water company threatened to [...] or training? Not on file Preferred Language Japanese 01/28/2025 PHQ-2 Answer Date Recorded Retired PHQ-9: Brief Depression Severity Measure Score 7 05/20/2024 Comments No Sex and Gender Information Value Date Recorded Sex Assigned at Female 01/09/2025 11:01 AM EDT Legal Sex Female 12:37 PM EDT Gender Identity Not on file Sexual Orientation Not on file documented as of this encounter Miscellaneous Notes * Telephone Encounter - [place] - 05/08/2025 11:13 AM EDT Provider: DR SANTILLAN Caller: ERICA THRASHER Relationship to Patient: GRANDCHILD Reason for Call: PAT[facility] WITH SEPSIS DUE TO UTI. PATIENT REQUESTING A FU WITH DR SANTILLAN. UTI URINARY SYMPTOMS STARTED AGAIN YESTERDAY. PLEASE ADVISE ON SCHEDULING. REACH OUT TO ERICA [phone] When was the patient last seen: 03-26-25 HUB AGENT UNABLE TO WARM TRANSFER. PLEASE REACH OUT ANA CRISTINA documented in this encounter Plan of Treatment Upcoming Encounters Date Type Department Care Team (Late st Contact Info) Description 06/03/2025 10:40 AM EDT Appointment [address] [phone] 06/05/2025 10:45 AM EDT Office Visit [facility] RHEUMATOLOGY [address] [phone] John Sheppard, LENGTH CONTROL TESTER [address] [address] 06/13/2025 10:00 AM EDT Office Visit [facility] UROLOGY [address] [place] [address] Sanam Saunders, PARVIZ [address] [address] 07/01/2025 11:00 AM EDT Office Visit [facility] UROLOGY 1760 [facility] 502 [place] [address] Brennan Santillan MD 1760 [facility] 502 [place] [address] 07/16/2025 10:30 AM EDT Office Visit [facility] GASTROENTEROLOGY 1720 [facility] 302 [place] [address] Palak Graham PA-C 1720 [facility] [address] [place] [address] 07/18/2025 11:30 AM EDT Appointment [facility] OUTPATIENT ONCOLOGY [address] [place] [phone] 07/31/2025 10:00 AM EDT Office Visit [facility] PULMONARY & CRITICAL CARE MEDICINE 3000 [facility] 240 [place] [address] Maxine Gibson, LENGTH CONTROL TESTER [address] [place] [phone] documented as of this encounter Goals Goal [...] documented as of this encounter Care Teams Hands Hanger Relationship Specialty Start Date End Date Reza Panchal MD 1210 [place] [address] PCP - General Family Medicine 09/30/24 documented as of this encounter
--- OUTSIDE RECORDS SUMMARY | 2025-05-25 06:24 | XMS_ITS | Encounter Summary ---
Author Organization [facility] Address [address] [place] [address] Care Team Providers Care Elementary Classroom Teacher Name Role Phone Reza Panchal MD Primary Care Provider +1- [phone] Reason for Visit * Reason Comments Med Refill Encounter Details Date Type Department Care Team (Late st Contact Info) Description 03/22/2024 Refill [facility] PRIMARY CARE [address] [address] Huyen Hall MD [address] [address] Acquired hypothyroidism Social History Tobacco Use Types Packs/Day Years Used Date Smoking Tobacco: Never Smokeless Tobacco: Never Comments: smokes, for 45 years Alcohol Use Standard Drinks/Week Comments No 0 (1 standard drink = 0.6 oz pur e alcohol) [facility] Utilities Answer Date Recorded In the past 12 months has [employer], gas, oil, or water company threatened [...] or training? Not on file Preferred Language Bahraini 01/11/2024 PHQ-2 Answer Date Recorded Retired PHQ-9: [...] 10:40 AM EDT Appointment [facility] YOEL 3084 [place] [address] 06/05/2025 10:45 AM EDT Office Visit [facility] RHEUMATOLOGY 330 [facility] 100 [place] [phone] John Sheppard, PARVIZ 330 [facility] 100 [place] [address] 06/13/2025 10:00 AM EDT Office Visit [facility] UROLOGY 1760 [facility] 502 [place] [address] Sanam Saunders, PRICING STRATEGIST 1760 [facility] [address] [place], [place] [address] 07/01/2025 11:00 AM EDT Office Visit [facility] UROLOGY [address] [address] Brennan Lee MD 1760 [facility] 502 [place] [address] 07/16/2025 10:30 AM EDT Office Visit [facility] GASTROENTEROLOGY 1720 [facility] 302 [place] [address] Palak Graham PA-C 1720 [facility] [address] [place] [address] 07/18/2025 11:30 AM EDT Appointment [facility] OUTPATIENT ONCOLOGY [address] [place] [address] 07/31/2025 10:00 AM EDT Office Visit [facility] PULMONARY [facility] CRITICAL CARE MEDICINE [address] [place] [address] Arthur Maxine L, PRICING STRATEGIST [address] [place] [address] documented as of this encounter Goals Goal [...] documented as of this encounter Care Teams Elementary Classroom Teacher Relationship Specialty Start Date End Date Reza Panchal MD [address] [place] [address] PCP - General Family Medicine 09/30/24 documented as of this encounter
--- OUTSIDE RECORDS SUMMARY | 2025-05-25 06:25 | XMS_ITS | Encounter Summary ---
Author Organization [facility] Address [address] [place] [address] Care Team Providers Care Facing Baster Jumpbasting Name Role Phone Reza Panchal MD Primary Care Provider +1- [phone] Encounter Details Date Type Department Care Team (Latest Contact Info) Description 05/23/2025 Travel Social History Tobacco Use Types Packs/Day Years Used Date Smoking Tobacco: Never Passive Smoke Exposure: Past Smokeless Tobacco: Never Comments: smokes, for 45 years Alcohol Use Standard Drinks/Week Comments No 0 (1 standard drink = 0.6 oz pur e alcohol) [facility] Utilities Answer Date Recorded In the past [...] Info) Description 06/03/2025 10:40 AM EDT Appointment [facility] DEXA YOEL [address] [place] [address] 06/05/2025 10:45 AM EDT Office Visit [facility] RHEUMATOLOGY 330 [facility] 100 [place] [phone] John Sheppard, SHOP FIRER/FIREMAN 330 [facility] 100 [place] [address] 06/13/2025 10:00 AM EDT Office Visit [facility] UROLOGY 1760 [facility] 502 [place] [address] Sanam Saunders, SHOP FIRER/FIREMAN 1760 [facility] [address] [place] [address] 07/01/2025 11:00 AM EDT Office Visit [facility] UROLOGY 1760 [facility] 502 [place] [address] Brennan Lee MD 1760 [facility] 502 [place] [address] 07/16/2025 10:30 AM EDT Office Visit [facility] GASTROENTEROLOGY 1720 [facility] 302 [place] [address] Palak Graham PADelano 1720 [facility] [address] [place] [address] 07/18/2025 11:30 AM EDT Appointment [facility] OUTPATIENT ONCOLOGY 1740 [place] [address] 07/31/2025 10:00 AM EDT Office Visit [facility] PULMONARY & CRITICAL CARE MEDICINE 3000 [facility] 240 [place] [address] Maxine Gibson, SHOP FIRER/FIREMAN [address] [place] [address] documented as of this encounter Goals Goal [...] documented as of this encounter Care Teams Facing Baster Jumpbasting Relationship Specialty Start Date End Date Reza Panchal MD [address] [phone] PCP - General Family Medicine 09/30/24 documented as of this encounter
--- OUTSIDE RECORDS SUMMARY | 2025-05-25 06:25 | XMS_ITS | Clinical Summary ---
Author Organization [facility] Address [address] [place] [address] Care Team Providers Care Supervisor Corduroy Cutting Name Role Phone Reza Panchal MD Primary Care Provider +1- [phone] Allergies Active Allergy Reactions Criticality Noted Date [...] file Insurance [employer] [place] Care Teams Supervisor Corduroy Cutting Relationship Specialty Start Date End Date Reza Panchal MD [address] [place] [address] PCP - General 08/17/24
--- OUTSIDE RECORDS SUMMARY | 2025-05-25 06:25 | XMS_ITS | Encounter Summary ---
Author Organization [facility] Address [address] [place] [address] Care Team Providers Care Sleeve Bottom Feller Name Role Phone Reza Panchal MD Primary Care Provider +1- [phone] Reason for Visit * Reason Comments Med Refill Encounter Details Date Type Department Care Team (Late st Contact Info) Description 07/03/2023 Refill [facility] PRIMARY CARE [address] [address] Huyen Hall MD [address] [address] Reactive depression; Type 2 diabetes mellitus with [...] Description 06/03/2025 10:40 AM EDT Appointment [facility] [address] [place] [address] 06/05/2025 10:45 AM EDT Office Visit [facility] RHEUMATOLOGY [address] [address] John Sheppard, READING RECOVERY TEACHER [address] [address] 06/13/2025 10:00 AM EDT Office Visit [facility] UROLOGY 1760 [facility] 502 [place] [address] Sanam Saunders, READING RECOVERY TEACHER 1760 [facility] [address] [place] [address] 07/01/2025 11:00 AM EDT Office Visit [facility] UROLOGY 1760 [facility] [address] [place] [address] Brennan Lee MD 1760 [facility] [place] [place] [address] 07/16/2025 10:30 AM EDT Office Visit [facility] GASTROENTEROLOGY 1720 [facility] [place] [place] [address] Palak Graham PA-C 1720 [facility] [address] [place] [address] 07/18/2025 11:30 AM EDT Appointment [facility] OUTPATIENT ONCOLOGY [address] [place] [phone] 07/31/2025 10:00 AM EDT Office Visit [facility] PULMONARY & CRITICAL CARE MEDICINE 3000 [facility] 240 [place] [address] Maxine Gibson, READING RECOVERY TEACHER [address] [place] [address] documented as of this encounter Visit Diagnoses [...] documented as of this encounter Care Teams Sleeve Bottom Feller Relationship Specialty Start Date End Date Reza Panchal MD [facility]0 [place] [address] PCP - General Family Medicine 09/30/24 documented as of this encounter
--- OUTSIDE RECORDS SUMMARY | 2025-05-25 06:25 | XMS_ITS | Encounter Summary ---
Author Organization [facility] Address [address] [place] [address] Care Team Providers Care Lead Network Engineer Name Role Phone Reza Panchal MD Primary Care Provider +1- [phone] Encounter Details Date Type Department Care Team (Late st Contact Info) Description 01/15/2025 Results Follow-Up [facility] RHEUMATOLOGY [address] [address] Patrice Santana DO [address] [place] [phone] Social History Tobacco Use Types Packs/Day Years Used Date Smoking Tobacco: Never Passive Smoke Exposure: Past Smokeless Tobacco: Never Comments: smokes, for 45 years Alcohol Use Standard Drinks/Week Comments No 0 (1 standard drink = 0.6 oz pur e alcohol) [facility] Utilities Answer Date Recorded In the past 12 months has [employer], gas, oil, or water [employer] threatened to shut off services in your [...] training? Not on file Preferred Language Greek 05/28/2024 PHQ-2 Answer Date Recorded Retired PHQ-9: [...] Info) Description 06/03/2025 10:40 AM EDT Appointment [facility] DEXA YOEL 3084 [place] [address] 06/05/2025 10:45 AM EDT Office Visit [facility]HE[facility]OLOG[facility] 330 [facility] 100 [place] [address] John Sheppard, PRECAST MOLDER 330 [facility] 100 [place] [address] 06/13/2025 10:00 AM EDT Office Visit [facility] UR[facility] [address] [address] Sanam Saunders, PRECAST MOLDER 1760 [facility] [address] [place] [address] 07/01/2025 11:00 AM EDT Office Visit [facility] 1760 [facility] 502 [place] [address] Brennan Lee MD [address] [address] 07/16/2025 10:30 AM EDT Office Visit [facility] GASTROENTEROLOGY 1720 [facility] 302 [place] [phone] Palak Graham PA-C 1720 [facility] [address] [place] [address] 07/18/2025 11:30 AM EDT Appointment [facility] OUTPATIENT ONCOLOGY [address] [place] [address] 07/31/2025 10:00 AM EDT Office Visit [facility] PULMONARY & CRITICAL CARE MEDICINE [address] [facility] [address] [place] [address] Maxine Gibson, PRECAST MOLDER [address] [place] [address] documented as of this encounter Goals Goal [...] documented as of this encounter Care Teams Lead Network Engineer Relationship Specialty Start Date End Date Reza Panchal MD 1210 [place] [address] PCP - General Family Medicine 09/30/24 documented as of this encounter
--- OUTSIDE RECORDS SUMMARY | 2025-05-25 06:25 | XMS_ITS | Encounter Summary ---
Author Organization [facility] Address [address] [place] [address] Care Team Providers Care Head Of Cytogenetics Name Role Phone Reza Panchal MD Primary Care Provider +1- [phone] Reason for Visit * Reason Comments Med Refill Encounter Details Date Type Department Care Team (Late st Contact Info) Description 02/12/2021 Refill [facility] PRIMARY CARE [address] [address] Huyen Hall MD 2039 [facility] 100 [place] [address] Gastroesophageal reflux disease, unspecified whether esophagitis present [...] Info) Description 06/03/2025 10:40 AM EDT Appointment [address] [phone] 06/05/2025 10:45 AM EDT Office Visit [facility] RHEUMATOLOGY [address] [phone] John Sheppard, FACILITIES MAINTENANCE MANAGER [address] [address] 06/13/2025 10:00 AM EDT Office Visit [facility] UROLOGY [address] [address] Sanam Saunders, FACILITIES MAINTENANCE MANAGER 1760 [facility] [address] [place] [address] 07/01/2025 11:00 AM EDT Office Visit [facility] UROLOGY 1760 [facility] 502 [place] [address] Brennan Lee MD 1760 [facility] 502 [place] [address] 07/16/2025 10:30 AM EDT Office Visit [facility] GASTROENTEROLOGY 1720 [facility] [address] [place] [address] Palak Graham PA-C [address] [place] [address] 07/18/2025 11:30 AM EDT Appointment [facility] OUTPATIENT ONCOLOGY 1740 [place] [address] 07/31/2025 10:00 AM EDT Office Visit [facility] PULMONARY & CRITICAL CARE MEDICINE 3000 [facility] 240 [place] [address] Maxine Gibson, FACILITIES MAINTENANCE MANAGER [address] [place] [address] documented as of this encounter Visit Diagnoses [...] as of this encounter Care Teams Head Of Cytogenetics Relationship Specialty Start Date End Date Reza Panchal MD [address] [place] [address] PCP - General Family Medicine 09/30/24 documented as of this encounter
--- OUTSIDE RECORDS SUMMARY | 2025-05-25 06:25 | XMS_ITS | Encounter Summary ---
Author Organization Healthcare Address [address] [place] [address] Care Team Providers Care Mapping Pilot Name Role Phone Reza Panchal MD Primary Care Provider +1- [phone] Encounter Details Date Type Department Care Team (Late st Contact Info) Description 08/17/2024 Ophth Exam [facility] - Pediatrics [address] [place] [address] Tian Ramírez MD [address] [place] [address] Social History Tobacco Use Types Packs/Day [...] on filedocumented in this encounter Care Teams Mapping Pilot Relationship Specialty Start Date End Date Reza Panchal MD [address] [place] [address] PCP - General 08/17/24 documented as of this encounter
--- OUTSIDE RECORDS SUMMARY | 2025-05-25 06:25 | XMS_ITS | Encounter Summary ---
[facility] Address [address] [place] [address] Care Team Providers Care Bomb Squad Officer Name Role Phone Reza Panchal MD Primary Care Provider [phone] Encounter Details Date Type Department Care Team (Late st Contact Info) Description 05/07/2025 Results Follow-Up [facility] AT [address] [place] [address] Robert Graham, PA-C [address] [place] [address] Social History Tobacco Use Types Packs/Day Years Used Date Smoking Tobacco: Never Passive Smoke Exposure: Past Smokeless Tobacco: Never Comments: smokes, for 45 years Alcohol Use Standard Drinks/Week Comments No 0 (1 standard drink = 0.6 oz pur e alcohol) [facility] Utilities Answer Date Recorded In the past 12 months has [employer] electric, gas, oil, or water company threatened [...] training? Not on file Preferred Language Korean 01/28/2025 PHQ-2 Answer Date Recorded Retired PHQ-9: Brief Depression Severity Measure Score 7 05/20/2024 Comments No Sex and Gender Information Value Date Recorded Sex Assigned at Female 01/09/2025 11:01 AM EDT Legal Sex Female 12:37 PM EDT Gender Identity Not on file Sexual Orientation Not on file documented as of this encounter Progress Notes * Robert Graham PA-C - 05/12/2025 12:06 PM EDTAddended by: ROBERT GRAHAM on: 05/12/2025 12:06 PM Modules accepted: Orders documented in this encounter Miscellaneous Notes * Telephone Encounter - Khadar Julien RMA - 05/13/2025 2:35 PM EDT PA SUBMITTED FOR VOQUENZA 10 MG * Telephone Encounter - Denisse Frederick MA - 05/12/2025 11:42 AM EDT Can you send in rx for voqezna 10mg to [facility] ? Thanks * Telephone Encounter - Sherrell Orozco MA - 05/07/2025 8:36 AM EDT Results sent via [employer]. documented in this encounter Plan of Treatment Upcoming Encounters Date Type Department Care Team (Late st Contact Info) Description 06/03/2025 10:40 AM EDT Appointment [facility] [address] [place] [address] 06/05/2025 10:45 AM EDT Office Visit [facility] RHEUMATOLOGY [address] [phone] John Sheppard APRN [address] [place] [address] 06/13/2025 10:00 AM EDT Office Visit [facility] UROLOGY [address] [facility] [address] [place] [address] Sanam Saunders APRN [address] [facility] [address] [place], [place] [id number] 07/01/2025 11:00 AM EDT Office Visit [facility] UROLOGY [address] [facility] [address] [place] [address] Brennan Lee MD [address] [facility] [address] [place] [address] 07/16/2025 10:30 AM EDT Office Visit [facility] GASTROENTEROLOGY [address] [facility] [address] [place] [id number] Robert Graham PAArnaldoC [address] [facility] [address] [place] [address] 07/18/2025 11:30 AM EDT Appointment [facility] [address] [place] [address] 07/31/2025 10:00 AM EDT Office Visit [facility] PULMONARY & CRITICAL CARE MEDICINE [address] [facility] [address] [place] [address] Maxine Gibson, REPAIR TECHNICIAN [address] [place] [address] documented as of this encounter Goals Goal [...] Diagnosis Gastroesophageal reflux disease, unspecified whether esophagitis present- Primary documented in this encounter Additional Health Concerns Infection Onset Date Last Indicated Resolved Time Hepatitis A 04/12/2024 04/12/2024 Assessment Noted Time PHQ-2 Depression Total Score: 1 05/20/20 24 11:00 AM EDT documented as of this encounter Care Teams Bomb Squad Officer Relationship Specialty Start Date End Date Reza Panchal MD [facility] [place] [address] PCP - General Family Medicine 09/30/24 documented as of this encounter
--- NOTE | 2025-05-25 06:41 | CT_ITS ---
PROCEDURE INFORMATION: Exam: CT Abdomen And Pelvis With Contrast Exam date and time: 05/25/2025 7:43 AM Age: 69 years old Clinical indication: Abdominal pain; Epigastric; Additional info: Eppigastric pain, regurg food, HX corkscrew esoph TECHNIQUE: Imaging protocol: Computed tomography of the abdomen and pelvis with contrast. 3D rendering (Not supervised by radiologist): MIP and/or 3D reconstructed images were created by the technologist. Radiation optimization: All CT scans at this facility use at least one of these dose optimization techniques: automated exposure control; mA and/or kV adjustment per patient size (includes targeted exams where dose is matched to clinical indication); or iterative reconstruction. Contrast material: ISOVUE; Contrast volume: 80 ml; Contrast route: IV; COMPARISON: CT ABDOMEN PELVIS W CON 04/24/2025 7:54 PM FINDINGS: Tubes, catheters and devices: Neurostimulator terminates adjacent to the sacrum Liver: Normal. No mass. Gallbladder and biliary ducts: The common duct is prominent. It measures 11 millimeters. This may be due to post cholecystectomy state and elderly status. However, if biliary obstruction is suspected clinically, recommend further evaluation. Cholecystectomy Pancreas: Normal. No ductal dilation. Spleen: Normal. No splenomegaly. Adrenal glands: Normal. No mass. Kidneys and ureters: Normal. No hydronephrosis. Stomach and bowel: 4 cm collection of air and debris projecting off of the 3rd duodenum. 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 Diverticulosis of the rectosigmoid. No diverticulitis. Appendix: Normal appendix Intraperitoneal space: Unremarkable. No free air. No significant fluid collection. Vasculature: Unremarkable. No abdominal aortic aneurysm. Lymph nodes: Unremarkable. No enlarged lymph nodes. Urinary bladder: Unremarkable as visualized. Reproductive: Unremarkable as visualized. Bones/joints: Unremarkable. No acute fracture. Soft tissues: Partial fluid partial solid density within the hernia. Recommend further evaluation if a mass is suspected. IMPRESSION: 1. Partial fluid partial solid density within the hernia. Recommend further evaluation if a mass is suspected. 2. 4 cm collection of air and debris projecting off of the 3rd duodenum. 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
--- NOTE | 2025-05-25 06:41 | XR_ITS ---
PROCEDURE INFORMATION: Exam: XR Chest Exam date and time: 05/25/2025 6:47 AM Age: 69 years old Clinical indication: Other: Upper abd pain TECHNIQUE: Imaging protocol: Radiologic exam of the chest. Views: 1 view. COMPARISON: CR XR CHEST PORTABLE 04/28/2025 11:18 AM FINDINGS: Lungs: Small lung volumes . Opacity in the left base Pleural spaces: Unremarkable. No pleural effusion. No pneumothorax. Heart/Mediastinum: Stable cardiac silhouette Bones/joints: Unremarkable. IMPRESSION: Opacity in left base may represent atelectasis or pneumonia.
--- NOTE | 2025-05-25 06:45 | HMH.EDGENADL ---
Discharge Plan Disposition Chief Complaint: Nausea/Vomiting/Diarrhea Prescriptions Prescriptions: No Action nitroglycerin 0.4 mg tablet, sublingual 0.4 mg sublingual Q5-15M PRN (Reason: Chest Pain) Rx Instructions: do not exceed 3 doses per episode cholecalciferol (vitamin D3) 125 mcg (5,000 unit) capsule 125 mcg PO DAILY mecobalamin (vitamin B12) 500 mcg tablet,chewable 500 mcg PO DAILY fluticasone propion-salmeterol 100-50 mcg/dose blister with device 1 ea inhalation BID Patient Comments: INHALE 1 PUFF BY MOUTH TWICE DAILY nystatin 100,000 unit/gram powder 1 applic topical DAILY estradiol 0.01 % (0.1 mg/gram) cream 1 appful vaginal .2xweekly gabapentin 300 mg capsule 300 mg PO TID Qty: 90 3RF potassium chloride 10 mEq tablet,ER particles/crystals 10 meq PO DAILY Qty: 90 3RF levothyroxine 75 mcg tablet 75 mcg PO DAILY Qty: 90 3RF metoprolol succinate 50 mg tablet extended release 24 hr 50 mg PO BID Qty: 180 3RF memantine 10 mg tablet 10 mg PO DAILY Qty: 90 3RF mirtazapine 15 mg tablet 15 mg PO HS Qty: 90 3RF atorvastatin 20 mg tablet 20 mg PO HS Qty: 90 3RF montelukast 10 mg tablet 10 mg PO DAILY Qty: 90 3RF Ozempic 0.25 mg or 0.5 mg (2 mg/3 mL) pen injector 0.25 mg SQ WEEKLY Qty: 3 2RF (DME) Diabetic Shoes (DME) Misc See Rx Instructions .ROUTE .MEDSUPPLY Qty: 1 0RF Rx Instructions: [facility] Please dispense one (1) pair of Diabetic shoes with inserts nitrofurantoin monohyd/m-cryst [Macrobid] 100 mg capsule 100 mg PO BID 7 Days Qty: 14 0RF Rx Instructions: must administer with a meal/food meloxicam 15 mg tablet 15 mg PO DAILY Qty: 30 2RF chlorthalidone 25 mg tablet 25 mg PO DAILY PRN (Reason: edema) Qty: 30 2RF prasugrel HCl [Effient] 10 mg tablet 10 mg PO DAILY 30 Days Qty: 30 6RF alendronate 70 mg tablet 70 mg PO WEEKLY Patient Comments: TAKE 1 TABLET BY MOUTH EVERY 7 DAYS fluticasone propionate 50 mcg/actuation spray,suspension 2 spray INTRANASAL DAILY magnesium oxide 500 mg magnesium tablet 500 mg PO DAILY Rx Instructions: TAKE 1 TABLET BY MOUTH ONCE DAILY sucralfate 1 gram Tablet 1 g PO ACHS PRN (Reason: Indigestion) 30 Days Qty: 60 0RF Referrals Follow up/Referrals: Reza Panchal MD [Primary Care Provider, Family Practice] - See instructions Instructions Patient Instructions: DI for Diarrhea and Traveler's Diarrhea -- Adult, DI for Diarrhea and Traveler's Diarrhea -- Child, DI for Nausea -- Adult, DI for Nausea -- Child Print Language Print Language: Luxembourger Discharge ED Provider: Anderson Jaimes General Adult HPI <Anderson Jaimes MD - Last Filed: 05/25/25 07:31> General Chief complaint: Nausea/Vomiting/Diarrhea Stated complaint: vomiting bile, weakness Time Seen by Provider: 05/25/25 06:50 Related Data Home Medications ?Medication ?Instructions ?Recorded ?Confirmed alendronate 70 mg tablet 70 mg PO WEEKLY 09/16/24 05/20/25 fluticasone propionate 50 2 spray intranasal DAILY 09/16/24 05/20/25 mcg/actuation nasal spray,suspension magnesium oxide 500 mg PO DAILY 12/16/24 05/20/25 cholecalciferol (vitamin D3) 125 125 mcg PO DAILY 01/13/25 05/20/25 mcg (5,000 unit) capsule mecobalamin (vitamin B12) 500 mcg 500 mcg PO DAILY 01/13/25 05/20/25 chewable tablet nitroglycerin 0.4 mg sublingual 0.4 mg sublingual Q5-15M PRN Chest 01/13/25 05/20/25 tablet Pain fluticasone 100 mcg-salmeterol 50 1 ea inhalation BID 01/20/25 05/20/25 mcg/dose blistr powdr for inhalation estradiol 0.01% (0.1 mg/gram) 1 appful vaginal .2xweekly 05/19/25 05/20/25 vaginal cream nystatin 100,000 unit/gram topical 1 applic topical DAILY 05/19/25 05/20/25 powder Previous Rx's ?Medication ?Instructions ?Recorded meloxicam 15 mg tablet 15 mg PO DAILY #30 tabs 02/14/25 chlorthalidone 25 mg tablet 25 mg PO DAILY PRN edema #30 tabs 03/26/25 sucralfate 1 gram tablet 1 g PO ACHS PRN Indigestion 30 04/28/25 days #60 tabs nitrofurantoin 100 mg PO BID 7 days #14 caps 05/08/25 monohydrate/macrocrystals 100 mg capsule (Macrobid) prasugrel HCl 10 mg tablet 10 mg PO DAILY 30 days #30 tabs 05/12/25 (Effient) atorvastatin 20 mg tablet 20 mg PO HS #90 tabs 05/19/25 gabapentin 300 mg capsule 300 mg PO TID #90 caps 05/19/25 levothyroxine 75 mcg tablet 75 mcg PO DAILY #90 tabs 05/19/25 memantine 10 mg tablet 10 mg PO DAILY #90 tabs 05/19/25 metoprolol succinate 50 mg 50 mg PO BID #180 tabs 05/19/25 tablet,extended release 24 hr mirtazapine 15 mg tablet 15 mg PO HS #90 tabs 05/19/25 montelukast 10 mg tablet 10 mg PO DAILY #90 tabs 05/19/25 potassium chloride 10 mEq 10 meq PO DAILY #90 tabs 05/19/25 tablet,extended release(part/cryst) semaglutide 0.25 mg or 0.5 mg (2 0.25 mg (0.368 mL) SQ WEEKLY #3 mL 05/19/25 mg/3 mL) subcutaneous pen injector (Ozempic) Diabetic Shoes (DME) #1 ea 05/20/25 Allergies Allergy/AdvReac Type Severity Reaction Status Date / Time hydrocodone Allergy Mild Unknown Verified 05/20/25 14:50 allergy reaction acetaminophen (From Allergy Unknown Verified 05/20/25 14:50 Tylenol-Codeine #3) allergy reaction metformin Allergy Unknown Verified 05/20/25 14:50 allergy reaction codeine AdvReac Mild Unknown Verified 05/20/25 14:50 allergy reaction <Forrest Kerns MD - Last Filed: > General Mode of Arrival: Wheelchair Source of Information: Patient and Relative Description of Symptoms (Recalled from ER Triage Doc. by RN): pt reports she began vomitting at 0500 but has been nauseated since 0130. pt reports newly taking ozempic PFSH <Anderson Jaimes MD - Last Filed: 05/25/25 07:31> [facility] 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 Nausea & vomiting Diarrhea Fever Sepsis Back pain Screening for osteoporosis Bacteremia due to Klebsiella pneumoniae UTI (urinary tract infection) Keratosis Incurvated nail Hypomagnesemia Vaginal irritation Dysuria Stress incontinence Urge incontinence Overactive bladder Allergic rhinitis Coronary artery calcification seen on CAT scan Chest pain Fatigue History of DVT of lower extremity History of sleep apnea Bronchitis, mucopurulent recurrent Dyspnea on exertion Bronchiectasis Asthma Edema Hyperlipidemia associated with type 2 diabetes mellitus Urinary incontinence Onychomycosis Diabetic neuropathy Breast cancer screening by mammogram Dementia Diabetes mellitus Bronchitis COPD (chronic obstructive pulmonary disease) Colonoscopy planned Gallbladder anomaly Rheumatoid arthritis Osteoporosis Back pain Acid reflux disease Carpal tunnel syndrome Anxiety Hypothyroidism Sleep apnea High blood pressure Arthritis Varicose veins of ankle Depression Acute asthma Surgical History History of cataract surgery History of esophagogastroduodenoscopy (EGD) H/O right heart catheterization History of cholecystectomy H/O tubal ligation History of hernia repair Total knee replacement status Social History Smoking Status: Never smoker alcohol intake: never substance use type: denies use current occupational status: unemployed Travel in the last 8 weeks?: None Have you lived/traveled outside US in past 30 days?: No Contact w/someone who lives/traveled outside US past 30 days?: No Exposure to someone with infectious disease in past 14 days?: No Do you have a fever (greater than 100.4 F or 38 C)?: No Have you tested positive for COVID-19?: No Exposed to someone with COVID-19 in past 14 days?: No Do you have a sore throat?: No Do you have a cough?: No Do you have any weakness?: Yes Do you have any diarrhea?: No Are you experiencing any unusual bleeding?: No Do you have any muscle aches/pain?: No Do you have any abdominal pain?: No Are you experiencing loss of taste or smell?: No <Forrest Kerns MD - Last Filed: > [facility] Disclaimer: The information contained in this section may have been updated after the patient was seen, as this information can be updated by other users. Other 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 Have you received the Flu Vaccine for this season: No Have you received the Pneumonia Vaccine: Yes Medical Decision Making <Anderson Jaimes MD - Last Filed: 05/25/25 07:31> Vital Signs: 05/25/25 06:28 Temperature 97.9 F Temperature Source Oral Pulse Rate [Right] 111 H Respiratory Rate 20 Blood Pressure [Right Arm] 133/78 Blood Pressure Mean [Right Arm] 96 02 Sat by Pulse Oximetry 100 Lab Data Lab Results 05/25/25 06:56: WBC 11.8 H, RBC 3.81 L, Hgb 11.5 L, Hct 35.0 L, MCV 91.9, MCH 30.2, MCHC 32.9, RDW 13.1, Plt Count 182, MPV 10.6 H, Neut % (Auto) 63.5, Lymph % (Auto) 23.7, Grayson % (Auto) 10.1 H, Eos % (Auto) 2.1, Baso % (Auto) 0.3, Neut # (Auto) 7.5, Lymph # (Auto) 2.8, Grayson # (Auto) 1.2 H, Eos # (Auto) 0.3, Baso # (Auto) 0.0, PT 11.8, INR 1.07, Sodium 134 L, Potassium 4.5, Chloride 101, Carbon Dioxide 27, Anion Gap 10.5, BUN 48 H, Creatinine 0.70, Estimated Creat Clear 77, Estimated GFR 83, Est GFR ( Amer) 101, Glucose 177 H, Calcium 9.0, Magnesium 1.5 L, Total Bilirubin 0.8, AST 24, ALT 22, Alkaline Phosphatase 69, Total Protein 7.1, Albumin 4.0, Globulin 3.1, Albumin/Globulin Ratio 1.3, Lipase 65 05/25/25 06:57: VBG pH 7.49 H, VBG pCO2 36.7, VBG pO2 110.2 H, VBG HCO3 27.4, VBG Total CO2 28.5 H, VBG O2 Saturation 98.2 H, VBG Base Excess 4.1 H, VBG Lactic Acid 2.3 H 05/25/25 07:20: Urine Color Yellow, Urine Appearance Clear, Urine pH 7.0, Ur Specific Weinert 1.015, Urine Protein Negative, Urine Glucose (UA) Trace, Urine Ketones 1+, Urine Blood Negative, Urine Nitrate Negative, Urine Bilirubin Negative, Urine Urobilinogen 0.2, Ur Leukocyte Esterase Negative 05/25/25 06:56 05/25/25 06:56 Orders (Tests/Meds): ED MEDICATIONS Generic Name Dose Route Start Last Admin Trade Name Freq PRN Reason Stop Dose Admin Lactated Ringer's 1,000 mls @ 999 mls/hr 05/25/25 06:58 Lactated Ringer's 1000 Ml Bag IV 05/25/25 07:58 .Q1H1M ONE Magnesium Sulfate 2 gm in 50 mls @ 50 mls/hr 05/25/25 07:29 Magnesium Sulfate 2gm/50ml Premix IV 05/25/25 08:28 ONCE ONE Sodium Chloride 10 ml 05/25/25 06:42 05/25/25 07:25 Sodium Chloride 0.9% 10ml Vial IV 06/24/25 06:41 10 ml NEEDED PRN Administration dilute protonix Sodium Chloride 10 ml 05/25/25 06:59 Sodium Chloride 0.9% 10ml Vial IV 06/24/25 06:58 NEEDED PRN dilute protonix Discontinued Medications Generic Name Dose Route Start Last Admin Trade Name Freq PRN Reason Stop Dose Admin Isosorbide Dinitrate 10 mg 05/25/25 06:42 05/25/25 06:46 Isosorbide Dinitrate 10 Mg Tablet PO 05/25/25 06:43 Not Given ONCE ONE Ondansetron HCl 4 mg 05/25/25 06:41 05/25/25 06:46 Ondansetron 4mg/2ml Vial IV 05/25/25 06:42 Not Given ONCE ONE Ondansetron HCl 4 mg 05/25/25 06:58 Ondansetron 4mg/2ml Vial IV 05/25/25 06:59 ONCE ONE Pantoprazole Sodium 40 mg 05/25/25 06:42 05/25/25 06:46 Pantoprazole 40mg Vial IV 05/25/25 06:43 Not Given ONCE ONE Pantoprazole Sodium 40 mg 05/25/25 06:59 05/25/25 07:25 Pantoprazole 40mg Vial IV 05/25/25 07:00 40 mg ONCE ONE Administration ORDERS Category Date Time Status CT abdomen pelvis w con Stat Cat Scan 05/25/25 06:[address] angio chest PE protocol Stat Cat Scan 05/25/25 07:01 Ordered CXR --portable [XR chest portable] Stat Exams 05/25/25 06:41 Taken CBC w/Auto Diff [Complete Blood Count Auto Diff] Stat Lab 05/25/25 06:56 Completed CMP [Comprehensive Metabolic Panel] Stat Lab 05/25/25 06:56 Results Lipase Stat Lab 05/25/25 06:56 Completed Magnesium Stat Lab 05/25/25 06:56 Completed PT INR [Prothrombin Time INR] Stat Lab 05/25/25 06:56 Completed Trop I [Troponin I] Stat Lab 05/25/25 06:56 Results Troponin I Q3H Lab 05/25/25 09:45 Ordered Troponin I Q3H Lab 05/25/25 12:45 Ordered UA [Urinalysis and Microscopic] Stat Lab 05/25/25 07:20 Results VBG [Venous Blood Gas] Stat RT 05/25/25 06:57 Completed ECG Request Stat Y 05/25/25 06:41 Ordered ECG Data Tracing #1: I reviewed this ECG and interpreted as documented below: Sinus tachycardia with a ventricular rate of [address] elevation or depression. No T wave inversions. QTc normal at 407 <Forrest Kerns MD - Last Filed: > Medical Records Screening: Per USPSTF and CDC recommendations, given the prevalence of disease in our region, it is our hospital?s policy to screen for HIV and viral Hepatitis for all patients aged 18 and over and those with ongoing risk factors. Vital Signs: 05/25/25 06:28 Temperature 97.9 F Temperature Source Oral Pulse Rate [Right] 111 H Respiratory Rate 20 Blood Pressure [Right Arm] 133/78 Blood Pressure Mean [Right Arm] 96 02 Sat by Pulse Oximetry 100 Lab Data Lab Results 05/25/25 06:56: WBC 11.8 H, RBC 3.81 L, Hgb 11.5 L, Hct 35.0 L, MCV 91.9, MCH 30.2, MCHC 32.9, RDW 13.1, Plt Count 182, MPV 10.6 H, Neut % (Auto) 63.5, Lymph % (Auto) 23.7, Grayson % (Auto) 10.1 H, Eos % (Auto) 2.1, Baso % (Auto) 0.3, Neut # (Auto) 7.5, Lymph # (Auto) 2.8, Grayson # (Auto) 1.2 H, Eos # (Auto) 0.3, Baso # (Auto) 0.0, PT 11.8, INR 1.07, Sodium 134 L, Potassium 4.5, Chloride 101, Carbon Dioxide 27, Anion Gap 10.5, BUN 48 H, Creatinine 0.70, Estimated Creat Clear 77, Estimated GFR 83, Est GFR ( Amer) 101, Glucose 177 H, Calcium 9.0, Magnesium 1.5 L, Total Bilirubin 0.8, AST 24, ALT 22, Alkaline Phosphatase 69, Total Protein 7.1, Albumin 4.0, Globulin 3.1, Albumin/Globulin Ratio 1.3, Lipase 65 05/25/25 06:57: VBG pH 7.49 H, VBG pCO2 36.7, VBG pO2 110.2 H, VBG HCO3 27.4, VBG Total CO2 28.5 H, VBG O2 Saturation 98.2 H, VBG Base Excess 4.1 H, VBG Lactic Acid 2.3 H 05/25/25 07:20: Urine Color Yellow, Urine Appearance Clear, Urine pH 7.0, Ur Specific Weinert 1.015, Urine Protein Negative, Urine Glucose (UA) Trace, Urine Ketones 1+, Urine Blood Negative, Urine Nitrate Negative, Urine Bilirubin Negative, Urine Urobilinogen 0.2, Ur Leukocyte Esterase Negative Orders (Tests/Meds): ED MEDICATIONS Generic Name Dose Route Start Last Admin Trade Name Freq PRN Reason Stop Dose Admin Lactated Ringer's 1,000 mls @ 999 mls/hr 05/25/25 06:58 Lactated Ringer's 1000 Ml Bag IV 05/25/25 07:58 .Q1H1M ONE Magnesium Sulfate 2 gm in 50 mls @ 50 mls/hr 05/25/25 07:29 Magnesium Sulfate 2gm/50ml Premix IV 05/25/25 08:28 ONCE ONE Sodium Chloride 10 ml 05/25/25 06:42 05/25/25 07:25 Sodium Chloride 0.9% 10ml Vial IV 06/24/25 06:41 10 ml NEEDED PRN Administration dilute protonix Sodium Chloride 10 ml 05/25/25 06:59 Sodium Chloride 0.9% 10ml Vial IV 06/24/25 06:58 NEEDED PRN dilute protonix Discontinued Medications Generic Name Dose Route Start Last Admin Trade Name Ivonne PRN Reason Stop Dose Admin Isosorbide Dinitrate 10 mg 05/25/25 06:42 05/25/25 06:46 Isosorbide Dinitrate 10 Mg Tablet PO 05/25/25 06:43 Not Given ONCE ONE Ondansetron HCl 4 mg 05/25/25 06:41 05/25/25 06:46 Ondansetron 4mg/2ml Vial IV 05/25/25 06:42 Not Given ONCE ONE Ondansetron HCl 4 mg 05/25/25 06:58 Ondansetron 4mg/2ml Vial IV 05/25/25 06:59 ONCE ONE Pantoprazole Sodium 40 mg 05/25/25 06:42 05/25/25 06:46 Pantoprazole 40mg Vial IV 05/25/25 06:43 Not Given ONCE ONE Pantoprazole Sodium 40 mg 05/25/25 06:59 05/25/25 07:25 Pantoprazole 40mg Vial IV 05/25/25 07:00 40 mg ONCE ONE Administration ORDERS Category Date Time Status CT abdomen pelvis w con Stat Cat Scan 05/25/25 06:[address] angio chest PE protocol Stat Cat Scan 05/25/25 07:01 Ordered CXR --portable [XR chest portable] Stat Exams 05/25/25 06:41 Taken CBC w/Auto Diff [Complete Blood Count Auto Diff] Stat Lab 05/25/25 06:56 Completed CMP [Comprehensive Metabolic Panel] Stat Lab 05/25/25 06:56 Results Lipase Stat Lab 05/25/25 06:56 Completed Magnesium Stat Lab 05/25/25 06:56 Completed PT INR [Prothrombin Time INR] Stat Lab 05/25/25 06:56 Completed Trop I [Troponin I] Stat Lab 05/25/25 06:56 Results Troponin I Q3H Lab 05/25/25 09:45 Ordered Troponin I Q3H Lab 05/25/25 12:45 Ordered UA [Urinalysis and Microscopic] Stat Lab 05/25/25 07:20 Results VBG [Venous Blood Gas] Stat RT 05/25/25 06:57 Completed ECG Request Stat Y 05/25/25 06:41 Ordered
--- NOTE | 2025-05-25 07:00 | HMH.EDGENADL ---
Discharge Plan Disposition Patient Disposition: Admitted Clinical Impressions Clinical Impression: Pneumonia involving right lung, GI bleeding, Sepsis, Hypomagnesemia Discharge ED Provider: Anderson Jaimes General Adult HPI General Chief complaint: Nausea/Vomiting/Diarrhea Stated complaint: vomiting bile, weakness Time Seen by Provider: 05/25/25 06:50 Mode of Arrival: Wheelchair Source of Information: Patient and Relative Description of Symptoms (Recalled from ER Triage Doc. by RN): pt reports she began vomitting at 0500 but has been nauseated since 013. pt reports newly taking ozempic History of Present Illness HPI narrative: Madison Castellanos is a 69y female with a history of status post cholecystectomy, hernia repair, with a history of GERD, coronary artery disease status post cardiac stents, diabetes mellitus, hypertension, COPD who presents to the emergency department for complaints of nausea, vomiting and upper abdominal pain as well as shortness of breath. Patient states that she was woken up around 1 AM this morning with nausea and vomiting and upper abdominal pain. She describes her vomit as brown. She notes that she was started on Ozempic on Monday of this week and has had stomach cramping ever since. She states that the pain worsened with the vomiting. She denies any fevers or chills. She does report some shortness of breath but denies any chest pain. She states that she tried to take a nausea pill at home but felt that it did not help. Patient states that she is currently on Macrobid for a urinary tract infection but has never had any dysuria or other urinary symptoms. Patient denies any alcohol use, tobacco use or recreational drug use. Patient states that her last bowel movement was this morning and was normal. Related Data Home Medications ?Medication ?Instructions ?Recorded ?Confirmed alendronate 70 mg tablet 70 mg PO WEEKLY 09/16/24 05/20/25 fluticasone propionate 50 2 spray intranasal DAILY 09/16/24 05/20/25 mcg/actuation nasal spray,suspension magnesium oxide 500 mg PO DAILY 12/16/24 05/20/25 cholecalciferol (vitamin D3) 125 125 mcg PO DAILY 01/13/25 05/20/25 mcg (5,000 unit) capsule mecobalamin (vitamin B12) 500 mcg 500 mcg PO DAILY 01/13/25 05/20/25 chewable tablet nitroglycerin 0.4 mg sublingual 0.4 mg sublingual Q5-15M PRN Chest 01/13/25 05/20/25 tablet Pain fluticasone 100 mcg-salmeterol 50 1 ea inhalation BID 01/20/25 05/20/25 mcg/dose blistr powdr for inhalation estradiol 0.01% (0.1 mg/gram) 1 appful vaginal .2xweekly 05/19/25 05/20/25 vaginal cream nystatin 100,000 unit/gram topical 1 applic topical DAILY 05/19/25 05/20/25 powder Previous Rx's ?Medication ?Instructions ?Recorded meloxicam 15 mg tablet 15 mg PO DAILY #30 tabs 02/14/25 chlorthalidone 25 mg tablet 25 mg PO DAILY PRN edema #30 tabs 03/26/25 sucralfate 1 gram tablet 1 g PO ACHS PRN Indigestion 30 04/28/25 days #60 tabs nitrofurantoin 100 mg PO BID 7 days #14 caps 05/08/25 monohydrate/macrocrystals 100 mg capsule (Macrobid) prasugrel HCl 10 mg tablet 10 mg PO DAILY 30 days #30 tabs 05/12/25 (Effient) atorvastatin 20 mg tablet 20 mg PO HS #90 tabs 05/19/25 gabapentin 300 mg capsule 300 mg PO TID #90 caps 05/19/25 levothyroxine 75 mcg tablet 75 mcg PO DAILY #90 tabs 05/19/25 memantine 10 mg tablet 10 mg PO DAILY #90 tabs 05/19/25 metoprolol succinate 50 mg 50 mg PO BID #180 tabs 05/19/25 tablet,extended release 24 hr mirtazapine 15 mg tablet 15 mg PO HS #90 tabs 05/19/25 montelukast 10 mg tablet 10 mg PO DAILY #90 tabs 05/19/25 potassium chloride 10 mEq 10 meq PO DAILY #90 tabs 05/19/25 tablet,extended release(part/cryst) semaglutide 0.25 mg or 0.5 mg (2 0.25 mg (0.368 mL) SQ WEEKLY #3 mL 05/19/25 mg/3 mL) subcutaneous pen injector (Ozempic) Diabetic Shoes (DME) #1 ea 05/20/25 Allergies Allergy/AdvReac Type Severity Reaction Status Date / Time hydrocodone Allergy Mild Unknown Verified 05/20/25 14:50 allergy reaction acetaminophen (From Allergy Unknown Verified 05/20/25 14:50 Tylenol-Codeine #3) allergy reaction metformin Allergy Unknown Verified 05/20/25 14:50 allergy reaction codeine AdvReac Mild Unknown Verified 05/20/25 14:50 allergy reaction morphine AdvReac Gastrointestinal Verified 05/25/25 10:33 Upset PFSH PFSH Disclaimer: The information contained in this section may have been updated after the patient was seen, as this information can be updated by other users. 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 Nausea & vomiting Diarrhea Fever Sepsis Back pain Screening for osteoporosis Bacteremia due to Klebsiella pneumoniae UTI (urinary tract infection) Keratosis Incurvated nail Hypomagnesemia Vaginal irritation Dysuria Stress incontinence Urge incontinence Overactive bladder Allergic rhinitis Coronary artery calcification seen on CAT scan Chest pain Fatigue History of DVT of lower extremity History of sleep apnea Bronchitis, mucopurulent recurrent Dyspnea on exertion Bronchiectasis Asthma Edema Hyperlipidemia associated with type 2 diabetes mellitus Urinary incontinence Onychomycosis Diabetic neuropathy Breast cancer screening by mammogram Dementia Diabetes mellitus Bronchitis COPD (chronic obstructive pulmonary disease) Colonoscopy planned Gallbladder anomaly Rheumatoid arthritis Osteoporosis Back pain Acid reflux disease Carpal tunnel syndrome Anxiety Hypothyroidism Sleep apnea High blood pressure Arthritis Varicose veins of ankle Depression Acute asthma Surgical History History of cataract surgery History of esophagogastroduodenoscopy (EGD) H/O right heart catheterization History of cholecystectomy H/O tubal ligation History of hernia repair Total knee replacement status Social History Smoking Status: Never smoker alcohol intake: never substance use type: denies use current occupational status: unemployed Travel in the last 8 weeks?: None Have you lived/traveled outside [place] in past 30 days?: No Contact w/someone who lives/traveled outside [place] past 30 days?: No Exposure to someone with infectious disease in past 14 days?: No Do you have a fever (greater than 100.4 F or 38 C)?: No Have you tested positive for COVID-19?: No Exposed to someone with COVID-19 in past 14 days?: No Do you have a sore throat?: No Do you have a cough?: No Do you have any weakness?: Yes Do you have any diarrhea?: No Are you experiencing any unusual bleeding?: No Do you have any muscle aches/pain?: No Do you have any abdominal pain?: No Are you experiencing loss of taste or smell?: No Other 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 Have you received the Flu Vaccine for this season: No Have you received the Pneumonia Vaccine: Yes ROS Obtained: Yes Systems reviewed as appropriate & no additional complaints except as documented Physical Exam General General appearance: alert and obese Comment: Ill appearing Head Head exam: atraumatic Eye Eye exam: Present normal appearance ENT ENT exam: Present normal external ear exam Neck Neck exam: Present full ROM Chest Chest inspection: Present symmetric chest wall rise Respiratory Respiratory exam: Present normal lung sounds bilaterally; Absent respiratory distress Cardiovascular Cardiovascular exam: Present normal rhythm and tachycardia Abdominal Exam Abdominal exam: Present soft, tenderness (RUQ and epigastric ) and guarding (epigastric and RUQ); Absent distention or rigidity Extremities Exam Extremities exam: Present normal inspection Back Exam Back exam: Present normal inspection Neurological Exam Neurological exam: Present alert and oriented X3 Psychiatric Psychiatric exam: Present normal affect Skin Skin exam: Present warm and dry Medical Decision Making Medical Records Screening: Per USPSTF and CDC recommendations, given the prevalence of disease in our region, it is our hospital?s policy to screen for HIV and viral Hepatitis for all patients aged 18 and over and those with ongoing risk factors. Andre Inquiry Pt receiving controlled substance: No Vital Signs: 05/25/25 06:28 05/25/25 07:00 05/25/25 07:30 Temperature 97.9 F Temperature Source Oral Pulse Rate 108 H 109 H Pulse Rate [Right] 111 H Respiratory Rate 20 20 Blood Pressure 101/53 L 121/60 Blood Pressure [Right Arm] 133/78 Blood Pressure Mean 68 Blood Pressure Mean [Right Arm] 96 02 Sat by Pulse Oximetry 100 95 97 Oxygen Delivery Method Room Air Room Air 05/25/25 08:00 05/25/25 08:30 Temperature Temperature Source Pulse Rate 113 H 108 H Pulse Rate [Right] Respiratory Rate 13 15 Blood Pressure 141/64 H 138/63 Blood Pressure [Right Arm] Blood Pressure Mean Blood Pressure Mean [Right Arm] 02 Sat by Pulse Oximetry 97 95 Oxygen Delivery Method Room Air Room Air Lab Data Lab Results 05/25/25 06:56: WBC 11.8 H, RBC 3.81 L, Hgb 11.5 L, Hct 35.0 L, MCV 91.9, MCH 30.2, MCHC 32.9, RDW 13.1, Plt Count 182, MPV 10.6 H, Neut % (Auto) 63.5, Lymph % (Auto) 23.7, [place] % (Auto) 10.1 H, Eos % (Auto) 2.1, Baso % (Auto) 0.3, Neut # (Auto) 7.5, Lymph # (Auto) 2.8, [place] # (Auto) 1.2 H, Eos # (Auto) 0.3, Baso # (Auto) 0.0, PT 11.8, INR 1.07, Sodium 134 L, Potassium 4.5, Chloride 101, Carbon Dioxide 27, Anion Gap 10.5, BUN 48 H, Creatinine 0.70, Estimated Creat Clear 77, Estimated GFR 83, Est GFR ( Amer) 101, Glucose 177 H, Calcium 9.0, Magnesium 1.5 L, Total Bilirubin 0.8, AST 24, ALT 22, Alkaline Phosphatase 69, Troponin I < 0.01, C-Reactive Protein 1.6, Total Protein 7.1, Albumin 4.0, Globulin 3.1, Albumin/Globulin Ratio 1.3, Lipase 65, Procalcitonin 0.079 05/25/25 06:57: VBG pH 7.49 H, VBG pCO2 36.7, VBG pO2 110.2 H, VBG HCO3 27.4, VBG Total CO2 28.5 H, VBG O2 Saturation 98.2 H, VBG Base Excess 4.1 H, VBG Lactic Acid 2.3 H 05/25/25 07:20: Urine Color Yellow, Urine Appearance Clear, Urine pH 7.0, Ur Specific [place] 1.015, Urine Protein Negative, Urine Glucose (UA) Trace, Urine Ketones 1+, Urine Blood Negative, Urine Nitrate Negative, Urine Bilirubin Negative, Urine Urobilinogen 0.2, Ur Leukocyte Esterase Negative, Urine RBC None, Urine WBC Occasional, Ur Squamous Epith Cells 3-5, Urine Bacteria Trace 05/25/25 06:56 05/25/25 06:56 Orders (Tests/Meds): ED MEDICATIONS Generic Name Dose Route Start Last Admin Trade Name Freq PRN Reason Stop Dose Admin Acetaminophen 650 mg 05/25/25 10:25 Acetaminophen 325mg Tab PO 09/09/25 10:24 Q4HP PRN Fever or Mild Pain (1-3) Ceftriaxone Sodium 1 gm/ 50 mls @ 100 mls/hr 05/26/25 10:00 Sodium Chloride IV 06/05/25 09:59 Q24H KRISTIAN Azithromycin 500 mg/ Sodium 250 mls @ 250 mls/hr 05/26/25 10:30 Chloride IV 06/05/25 10:29 Q24H KRISTIAN Ondansetron HCl 4 mg 05/25/25 10:25 Ondansetron 4mg/2ml Vial IV 06/24/25 10:24 Q6HP PRN Nausea Pantoprazole Sodium 40 mg 05/25/25 21:00 Pantoprazole 40mg Vial IV 06/24/25 20:59 BID KRISTIAN Sodium Chloride 10 ml 05/25/25 06:42 05/25/25 07:25 Sodium Chloride 0.9% 10ml Vial IV 06/24/25 06:41 10 ml NEEDED PRN Administration dilute protonix Discontinued Medications Generic Name Dose Route Start Last Admin Trade Name Freq PRN Reason Stop Dose Admin Lactated Ringer's 1,000 mls @ 999 mls/hr 05/25/25 06:58 05/25/25 07:31 Lactated Ringer's 1000 Ml Bag IV 05/25/25 07:58 999 mls/hr .Q1H1M ONE Administration Magnesium Sulfate 2 gm in 50 mls @ 50 mls/hr 05/25/25 07:29 05/25/25 07:56 Magnesium Sulfate 2gm/50ml Premix IV 05/25/25 08:28 50 mls/hr ONCE ONE Administration Lactated Ringer's 1,000 mls @ 999 mls/hr 05/25/25 09:07 Lactated Ringer's 1000 Ml Bag IV 05/25/25 10:07 .Q1H1M ONE Azithromycin 500 mg/ Sodium 250 mls @ 250 mls/hr 05/25/25 09:10 Chloride IV 05/25/25 09:11 ONCE ONE Ceftriaxone Sodium 2 gm/ 100 mls @ 200 mls/hr 05/25/25 09:11 05/25/25 10:14 Sodium Chloride IV 05/25/25 09:40 200 mls/hr ONCE ONE Administration Iopamidol 80 ml 05/25/25 07:55 05/25/25 07:56 Iopamidol-370 (76%);100ml Bottle IV 05/25/25 07:56 80 ml ONCE ONE Administration Isosorbide Dinitrate 10 mg 05/25/25 06:42 05/25/25 06:46 Isosorbide Dinitrate 10 Mg Tablet PO 05/25/25 06:43 Not Given ONCE ONE Morphine Sulfate 4 mg 05/25/25 09:33 05/25/25 10:13 Morphine 4mg/Ml Syringe IV 05/25/25 09:34 4 mg ONCE ONE Administration Ondansetron HCl 4 mg 05/25/25 06:41 05/25/25 06:46 Ondansetron 4mg/2ml Vial IV 05/25/25 06:42 Not Given ONCE ONE Ondansetron HCl 4 mg 05/25/25 06:58 05/25/25 07:31 Ondansetron 4mg/2ml Vial IV 05/25/25 06:59 4 mg ONCE ONE Administration Ondansetron HCl 4 mg 05/25/25 09:45 05/25/25 10:12 Ondansetron 4mg/2ml Vial IV 05/25/25 09:46 4 mg ONCE ONE Administration Pantoprazole Sodium 40 mg 05/25/25 06:42 05/25/25 06:46 Pantoprazole 40mg Vial IV 05/25/25 06:43 Not Given ONCE ONE Pantoprazole Sodium 40 mg 05/25/25 06:59 05/25/25 07:25 Pantoprazole 40mg Vial IV 05/25/25 07:00 40 mg ONCE ONE Administration Sodium Chloride 10 ml 05/25/25 06:59 Sodium Chloride 0.9% 10ml Vial IV 06/24/25 06:58 NEEDED PRN dilute protonix Sodium Chloride 10 ml 05/25/25 07:55 05/25/25 07:56 Sodium Chloride 0.9% 10ml Syr (Rad Only) IV 05/25/25 07:56 10 ml ONCE ONE Administration Sodium Chloride 50 ml 05/25/25 07:55 05/25/25 07:56 0.9 % Sodium Chloride 50 Ml Vial IV 05/25/25 07:56 50 ml ONCE ONE Administration ORDERS Category Date Time Status Type and Screen Stat BBK 05/25/25 10:[address] abdomen pelvis w con Stat Cat Scan 05/25/25 06:[address] angio chest PE protocol Stat Cat Scan 05/25/25 07:01 Completed GI consult [Consult to Gastroenterology] [CONS] Routine Cons 05/25/25 10:28 Active CXR --portable [XR chest portable] Stat Exams 05/25/25 06:41 Completed CBC w/Auto Diff [Complete Blood Count Auto Diff] Stat Lab 05/25/25 06:56 Completed CMP [Comprehensive Metabolic Panel] Stat Lab 05/25/25 06:56 Completed CRP [C-Reactive Protein] Stat Lab 05/25/25 06:56 Completed Complete Blood Count Auto Diff AMLAB Lab 05/26/25 06:00 Ordered Comprehensive Metabolic Panel AMLAB Lab 05/26/25 06:00 Ordered Lipase Stat Lab 05/25/25 06:56 Completed Magnesium AMLAB Lab 05/26/25 06:00 Ordered Magnesium Stat Lab 05/25/25 06:56 Completed PT INR [Prothrombin Time INR] Stat Lab 05/25/25 06:56 Completed Procalcitonin Stat Lab 05/25/25 06:56 Completed Trop I [Troponin I] Stat Lab 05/25/25 06:56 Completed Troponin I Q3H Lab 05/25/25 09:50 Received Troponin I Q3H Lab 05/25/25 12:45 Ordered UA [Urinalysis and Microscopic] Stat Lab 05/25/25 07:20 Completed Blood Culture Stat Micro 05/25/25 10:04 Received VBG [Venous Blood Gas] Stat RT 05/25/25 06:57 Completed ECG Request Stat Y 05/25/25 06:41 Ordered Medical Decision Narrative: Madison Castellanos is a 69y female with a history of status post cholecystectomy, hernia repair, with a history of GERD, coronary artery disease status post cardiac stents, diabetes mellitus, hypertension, COPD who presents to the emergency department for complaints of nausea, vomiting and upper abdominal pain as well as shortness of breath. Patient states that she was woken up around 1 AM this morning with nausea and vomiting and upper abdominal pain. She describes her vomit as brown. She notes that she was started on Ozempic on Monday of this week and has had stomach cramping ever since. She states that the pain worsened with the vomiting. She denies any fevers or chills. She does report some shortness of breath but denies any chest pain. She states that she tried to take a nausea pill at home but felt that it did not help. Patient states that she is currently on Macrobid for a urinary tract infection but has never had any dysuria or other urinary symptoms. Patient denies any alcohol use, tobacco use or recreational drug use. Patient states that her last bowel movement was this morning and was normal. On arrival, patient is normotensive, tachycardic with a heart rate of 111 bpm, afebrile, breathing comfortably on room air with appropriate oxygen saturation. Physical exam, as stated above, revealed an ill but nontoxic-appearing female in no distress. Cardiopulmonary exam is unremarkable. She is GCS 15. She does have tenderness in her abdomen in the epigastric and right upper quadrants with guarding but has a nonperitonitic abdomen. Her abdomen does not appear overtly distended. Differential diagnosis includes, but is not limited to: Perforated gastric ulcer, small bowel obstruction, acute pancreatitis, viral gastritis, gastroparesis, bowel perforation, medication side effect, ACS, pulmonary embolism, among others. The most morbid conditions were considered and workup was based on these. Workup in the emergency room included: CT abdomen pelvis IV contrast, CT pulmonary embolism protocol, CXR, troponin, CBC with differential, CMP, magnesium level, lipase, urinalysis, VBG with lactate, patient symptoms were treated with 1 L lactated ringer, 4 mg IV Zofran and 40 mg IV Protonix. Chest x-ray interpreted by me personally. Possible left lower lobe opacity that could represent pneumonia. No other acute findings within the chest. See radiology report for details. Laboratory studies interpreted by me personally. Mild leukocytosis of 11.8, hemoglobin mildly low at 11.5 and hematocrit 35, however baseline appears to be around 12. Coagulation studies within normal limits. Mild alkalosis with pH of 7.49 and elevated bicarb of 28.5 with pCO2 normal at 36.7. This could be secondary to vomiting. Lactate is mildly elevated at 2.3, patient receiving 1 L of fluids. Mildly low sodium of 134, no MI but BUN is elevated at 48. Magnesium mildly low at 1.5, will replace with 2 g of IV magnesium sulfate. Troponin less than 0.01. Lipase normal at 65. Urinalysis with negative leukocyte esterase, negative nitrate, negative blood, 1+ ketones and occasional white blood cells. No evidence of UTI at this time. CT imaging interpreted by me personally shows a hiatal hernia patient has had operated on multiple times. Also shows a 4 cm collection of air and debris projecting off of the third duodenum. Most likely represents a duodenal diverticulum. Less likely duodenal ulcer . X-ray and CT imaging of the chest show opacities in the right middle and lower lobe concerning for possible pneumonia. On reassessment, patient had a bowel movement here in the emergency department that she describes as black and tarry. She continues to have some abdominal pain, although she said she had temporary relief after Protonix and Zofran. Will administer 4 mg of morphine at this time (has had nausea with hydrocodone in the past), additional 4 mg IV Zofran, blood cultures, and started patient on broad-spectrum antibiotics, Rocephin 2 g IV and 500 mg IV azithromycin. Will also administer an additional 1 L lactated ringer as patient has been persistently tachycardic, now with heart rates in the 110s to 117 range. Normal sinus rhythm on monitor. I discussed the patient's case with Dr. May due to concern for GI bleed given her mildly low hemoglobin, elevated BUN and coffee-ground emesis/melena. He agreed that the diverticulum likely represents an ulcer. Recommended making her n.p.o. and will plan to scope her in the morning as long as she remains stable. I then discussed patient's case with Dr. Baca of the hospital medicine service for admission. He agreed to admit the patient for further management. Critical Care Critical Care Time Critical Care Time: No
--- NOTE | 2025-05-25 07:00 | PC.NURSE ---
respiratory contacted regarding the need for VBG that was sent to the lab
--- NOTE | 2025-05-25 07:01 | CT_ITS ---
PROCEDURE INFORMATION: Exam: CTA Chest With Contrast Exam date and time: 05/25/2025 7:43 AM Age: 69 years old Clinical indication: Shortness of breath and other: Tachycardia; Additional info: Shortness of breath, tachycardic TECHNIQUE: Imaging protocol: Computed tomographic angiography of the chest with contrast. Exam focused on the arteries. 3D rendering (Not supervised by radiologist): MIP and/or 3D reconstructed images were created by the technologist. Radiation optimization: All CT scans at this facility use at least one of these dose optimization techniques: automated exposure control; mA and/or kV adjustment per patient size (includes targeted exams where dose is matched to clinical indication); or iterative reconstruction. Contrast material: ISOVUE; Contrast volume: 80 ml; Contrast route: INTRAVENOUS (IV); COMPARISON: CT CHEST WO CON 04/26/2025 8:10 AM FINDINGS: Pulmonary arteries: No evidence of pulmonary embolus to the segmental level. Aorta: No aneurysm of the aorta. No dissection of the aorta. Lungs: Mild opacities in the right middle lobe and both lower lobes may represent atelectasis or pneumonia. Pleural spaces: Unremarkable. No pneumothorax. No pleural effusion. Heart: There is calcification of the aortic valve annulus. There is calcification of the mitral valve annulus. Coronary arteries: Coronary artery calcifications may indicate coronary artery disease. Lymph nodes: Unremarkable. No enlarged lymph nodes. Diaphragm: Moderate hiatal hernia Bones/joints: Unremarkable. No acute fracture. Soft tissues: Unremarkable. IMPRESSION: 1. No evidence of pulmonary embolus to the segmental level. 2. No aneurysm of the aorta. 3. No dissection of the aorta. 4. Mild opacities in the right middle lobe and both lower lobes may represent atelectasis or pneumonia.
[2025-05-25 07:06] LABS: VBG HCO3 27.4 mmol/L (23-30); VBG PCO2 36.7 mmol/L (35-51); VBG PH 7.49 mmol/L (7.31-7.41); VBG PO2 110.2 mmol/L (28-40)
[2025-05-25 07:07] LABS: Lactate Venous 2.3 mmol/L (0.4-2.0)
[2025-05-25 07:12] LABS: Hematocrit 35.0 % (37.0-47.0); Hemoglobin 11.5 g/dL (12.2-16.2); Immature Granulocytes % 0.3 %; Mean Corpuscular HGB Conc 32.9 g/dL (31.8-35.4); Mean Corpuscular Hemoglobin 30.2 pg (27.0-31.2); Mean Corpuscular Volume 91.9 fl (81-99); Nucleated Red Blood Cells % 0 %; Platelet Count 182 K/mm3 (142-424); Red Blood Count 3.81 M/mm3 (4.20-5.40); Red Cell Distribution Width-SD 44.0 fL; White Blood Count 11.8 K/mm3 (4.8-10.8)
[2025-05-25 07:14] LABS: Albumin Level 4.0 g/dl (3.5-5.0); Chloride 101 mmol/L (98-107); Potassium 4.5 mmoL/L (3.5-5.1); Sodium 134 mmol/L (136-145)
[2025-05-25 07:16] LABS: Blood Urea Nitrogen 48 mg/dl (7-17); Lipase 65 U/L (23-300); Magnesium 1.5 mg/dl (1.6-2.3)
[2025-05-25 07:17] LABS: Alanine Aminotransferase 22 U/L (12-78); Albumin/Globulin Ratio 1.3 (1.1-1.8); Alkaline Phosphatase 69 U/L (38-126); Anion Gap 10.5 mEq/L (5-15); Aspartate Amino Transferase 24 U/L (14-36); Bilirubin,Total 0.8 mg/dl (0.2-1.3); Calcium 9.0 mg/dl (8.4-10.2); Carbon Dioxide 27 mmol/L (22.0-30.0); Creatinine Clearance Estimated 77 mL/min (50-200); Creatinine,Serum 0.70 mg/dl (0.52-1.04); Estimated Glomerular Filt Rate 83 ml/min (>60); GFR (African American) 101 ML/MIN (>60); Globulin 3.1 g/dL (1.3-3.2); Glucose 177 mg/dl (74-100); Total Protein,Serum 7.1 g/dl (6.3-8.2)
[2025-05-25 07:19] LABS: INR 1.07 (0.9-1.1); Prothrombin Time 11.8 seconds (10.1-12.5)
--- NOTE | 2025-05-25 07:21 | ECG_ITS ---
APPROVED REPORT Exam: Resting ECG HR:108 bpm ECG Measurements Heart Rate 108 AXES [place] 146 P 56 QRSd 82 QRS -12 QT 343 T 31 QTc 407 Conclusion SINUS TACHYCARDIA LOW QRS VOLTAGE IN PRECORDIAL LEADS [QRS DEFLECTION < 1.0 mV IN CHEST LEADS] ABNORMAL RHYTHM ECG UNCONFIRMED REPORT Electronically signed by : TREVOR CAMPOS, 05/26/2025 23:49:25
[2025-05-25 07:23] LABS: Microscopic, Urine URINE MICROSCOPIC (MICROSCOPIC)
[2025-05-25] MEDS: SODIUM CHLORIDE 0.9% 10ML VIAL 10 ML IV (07:25)
[2025-05-25] MEDS: PANTOPRAZOLE 40MG VIAL 40 MG IV (07:25)
[2025-05-25 07:27] LABS: Bilirubin,Urine Negative (Negative); Color,Urine YELLOW (Yellow); Glucose,Urine (UA) TRACE (Negative); Ketones,Urine 1+ (Negative); Leukocyte Esterase,Urine Negative (Negative); PH,Urine 7.0 (5.0-8.5); Protein,Urine Negative (Negative); Specific Gravity, Urine 1.015 (1.005-1.030); Urobilinogen,Urine 0.2 EU/dl (0.2)
[2025-05-25] MEDS: ONDANSETRON 4MG/2ML VIAL 4 MG IV ×2 (07:31→10:12)
[2025-05-25] MEDS: LACTATED RINGERS 1000ML 1,000 ML 999 ML IV ×2 (07:31→10:57)
[2025-05-25 07:32] LABS: WBC,Urine Occasional #/hpf (0-3)
[2025-05-25 07:33] LABS: Bacteria,Urine Trace /lpf
[2025-05-25 07:33] LABS: Troponin I < 0.01 ng/ml (0.00-0.034)
[2025-05-25] MEDS: MAGNESIUM SULFATE IN WATER 2 GM/50 ML PIGGYBACK IV (07:56)
[2025-05-25] MEDS: IOPAMIDOL-370 (76%);100ML BOTTLE 80 ML IV (07:56)
[2025-05-25] MEDS: 0.9 % SODIUM CHLORIDE 50 ML VIAL IV (07:56)
[2025-05-25] MEDS: SODIUM CHLORIDE 0.9% 10ML SYR (RAD ONLY) 10 ML IV (07:56)
[2025-05-25 09:29] LABS: C-Reactive Protein 1.6 mg/L (0-4)
[2025-05-25 09:50] LABS: Procalcitonin 0.079 ng/mL (0.0-2.0)
[2025-05-25] MEDS: MORPHINE 4MG/ML SYRINGE 4 MG IV (10:13)
--- NOTE | 2025-05-25 10:26 | PC.NURSE ---
Notified House of admission with dx of Sepsis, GI bleed, and PNA.
--- NOTE | 2025-05-25 10:30 | EXP.HP ---
History of Present Illness *Admission Date: 05/25/25 *Reason for visit:: coffee ground emesis, melena *History of present illness: 69-year-old female who presents from home with abdominal pain, nausea vomiting. Started Ozempic this past week for diabetes. Of note was admitted a month ago for UTI. States that she has had abdominal pain ever since her first dose of Ozempic. Developed nausea and vomiting over the past 24 hours. Vomiting was accompanied by coffee-ground emesis and noted to have melenic stool in the ED. Having epigastric abdominal pain. Takes aspirin and prasugrel at home for CAD status post stents in September 2024. Workup in the ER with imaging showing right middle and lower lobe pneumonia, anemia, elevated BUN consistent with GI bleed. Medicine consulted for admission and further management of GI bleed along with GI consult in the morning. Protonix loaded in the ED. On nasal cannula oxygen. Received ceftriaxone and azithromycin. On arrival to the floor, patient is feeling a little bit better after receiving IV fluids. Has family at bedside helps supplement history due to patient's memory impairment. She complains of abdominal pain mainly epigastric. Denies fever. Has had some chills. No chest pain or shortness of breath beyond baseline. Wearing oxygen continuously now however, normally only wears it at night. [facility] Disclaimer: The information contained in this section may have been updated after the patient was seen, as this information can be updated by other users. 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 Nausea & vomiting Diarrhea Fever Sepsis Back pain Screening for osteoporosis Bacteremia due to Klebsiella pneumoniae UTI (urinary tract infection) Keratosis Incurvated nail Hypomagnesemia Vaginal irritation Dysuria Stress incontinence Urge incontinence Overactive bladder Allergic rhinitis Coronary artery calcification seen on CAT scan Chest pain Fatigue History of DVT of lower extremity History of sleep apnea Bronchitis, mucopurulent recurrent Dyspnea on exertion Bronchiectasis Asthma Edema Hyperlipidemia associated with type 2 diabetes mellitus Urinary incontinence Onychomycosis Diabetic neuropathy Breast cancer screening by mammogram Dementia Diabetes mellitus Bronchitis COPD (chronic obstructive pulmonary disease) Colonoscopy planned Gallbladder anomaly Rheumatoid arthritis Osteoporosis Back pain Acid reflux disease Carpal tunnel syndrome Anxiety Hypothyroidism Sleep apnea High blood pressure Arthritis Varicose veins of ankle Depression Acute asthma Surgical History History of cataract surgery History of esophagogastroduodenoscopy (EGD) H/O right heart catheterization History of cholecystectomy H/O tubal ligation History of hernia repair Total knee replacement status Social History (Updated 05/25/25 @ 11:27 by Santa Knight RN) Smoking Status: Never smoker alcohol intake: never substance use type: denies use current occupational status: unemployed Travel in the last 8 weeks?: None Have you lived/traveled outside US in past 30 days?: No Contact w/someone who lives/traveled outside US past 30 days?: No Exposure to someone with infectious disease in past 14 days?: No Do you have a fever (greater than 100.4 F or 38 C)?: No Have you tested positive for COVID-19?: No Exposed to someone with COVID-19 in past 14 days?: No Do you have a sore throat?: No Do you have a cough?: No Do you have any weakness?: Yes Are you experiencing any nausea/vomitting?: No Do you have any diarrhea?: No Are you experiencing any unusual bleeding?: No Do you have any muscle aches/pain?: No Do you have any abdominal pain?: No Are you experiencing loss of taste or smell?: No Other 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 Have you received the Flu Vaccine for this season: No Have you received the Pneumonia Vaccine: Yes Review of Systems Review of Systems Review of systems (narrative): 14 point review of systems performed, pertinent positives and negatives as per HPI Meds Home Medications and Allergies Home Medications ?Medication ?Instructions ?Recorded ?Confirmed ?Type alendronate 70 mg tablet 70 mg PO WEEKLY 09/16/24 05/25/25 History fluticasone propionate 50 2 spray intranasal DAILY 09/16/24 05/25/25 History mcg/actuation nasal spray,suspension magnesium oxide 500 mg PO DAILY 12/16/24 05/25/25 History cholecalciferol (vitamin D3) 125 125 mcg PO DAILY 01/13/25 05/25/25 History mcg (5,000 unit) capsule mecobalamin (vitamin B12) 500 mcg 500 mcg PO DAILY 01/13/25 05/25/25 History chewable tablet nitroglycerin 0.4 mg sublingual 0.4 mg sublingual Q5-15M PRN Chest 01/13/25 05/25/25 History tablet Pain fluticasone 100 mcg-salmeterol 50 1 ea inhalation BID 01/20/25 05/25/25 History mcg/dose blistr powdr for inhalation prasugrel HCl 10 mg tablet 10 mg PO DAILY 30 days #30 tabs 05/12/25 05/25/25 Rx (Effient) atorvastatin 20 mg tablet 20 mg PO HS #90 tabs 05/19/25 05/25/25 Rx estradiol 0.01% (0.1 mg/gram) 1 appful vaginal DIRECTED 05/19/25 05/25/25 History vaginal cream gabapentin 300 mg capsule 300 mg PO TID #90 caps 05/19/25 05/25/25 Rx levothyroxine 75 mcg tablet 75 mcg PO DAILY #90 tabs 05/19/25 05/25/25 Rx memantine 10 mg tablet 10 mg PO DAILY #90 tabs 05/19/25 05/25/25 Rx metoprolol succinate 50 mg 50 mg PO BID #180 tabs 05/19/25 05/25/25 Rx tablet,extended release 24 hr mirtazapine 15 mg tablet 15 mg PO HS #90 tabs 05/19/25 05/25/25 Rx montelukast 10 mg tablet 10 mg PO DAILY #90 tabs 05/19/25 05/25/25 Rx nystatin 100,000 unit/gram topical 1 applic topical TID 05/19/25 05/25/25 History powder potassium chloride 10 mEq 10 meq PO DAILY #90 tabs 05/19/25 05/25/25 Rx tablet,extended release(part/cryst) Diabetic Shoes (DME) #1 ea 05/20/25 05/20/25 Rx chlorthalidone 25 mg tablet 25 mg PO DAILYP PRN edema 05/25/25 05/25/25 History meloxicam 15 mg tablet 15 mg PO DAILYP PRN Mild Pain 05/25/25 05/25/25 History (Scale Score 1-4) nitrofurantoin 100 mg PO HS 05/25/25 05/25/25 History monohydrate/macrocrystals 100 mg capsule (Macrobid) vonoprazan 10 mg tablet (Voquezna) 10 mg PO DAILY 05/25/25 05/25/25 History New Prescriptions to Start Prescriptions: Allergies Allergy/AdvReac Type Severity Reaction Status Date / Time hydrocodone Allergy Mild Unknown Verified 05/20/25 14:50 allergy reaction acetaminophen (From Allergy Unknown Verified 05/20/25 14:50 Tylenol-Codeine #3) allergy reaction metformin Allergy Unknown Verified 05/20/25 14:50 allergy reaction codeine AdvReac Mild Unknown Verified 05/20/25 14:50 allergy reaction morphine AdvReac Gastrointestinal Verified 05/25/25 10:33 Upset Exam Data for Last 24 hours Vital signs and Labs for Last 24 Hours: Temp Pulse Resp BP Pulse Ox O2 Del Method 97.9 F 108 H 15 138/63 95 Room Air 05/25/25 06:28 05/25/25 08:30 05/25/25 08:30 05/25/25 08:30 05/25/25 08:30 05/25/25 08:30 Laboratory Results - last 24 hr 05/25/25 06:56: WBC 11.8 H, RBC 3.81 L, Hgb 11.5 L, Hct 35.0 L, MCV 91.9, MCH 30.2, MCHC 32.9, RDW 13.1, Plt Count 182, MPV 10.6 H, Neut % (Auto) 63.5, Lymph % (Auto) 23.7, [place] % (Auto) 10.1 H, Eos % (Auto) 2.1, Baso % (Auto) 0.3, Neut # (Auto) 7.5, Lymph # (Auto) 2.8, [place] # (Auto) 1.2 H, Eos # (Auto) 0.3, Baso # (Auto) 0.0, PT 11.8, INR 1.07, Sodium 134 L, Potassium 4.5, Chloride 101, Carbon Dioxide 27, Anion Gap 10.5, BUN 48 H, Creatinine 0.70, Estimated Creat Clear 77, Estimated GFR 83, Est GFR ( Amer) 101, Glucose 177 H, Calcium 9.0, Magnesium 1.5 L, Total Bilirubin 0.8, AST 24, ALT 22, Alkaline Phosphatase 69, Troponin I < 0.01, C-Reactive Protein 1.6, Total Protein 7.1, Albumin 4.0, Globulin 3.1, Albumin/Globulin Ratio 1.3, Lipase 65, Procalcitonin 0.079 05/25/25 06:57: VBG pH 7.49 H, VBG pCO2 36.7, VBG pO2 110.2 H, VBG HCO3 27.4, VBG Total CO2 28.5 H, VBG O2 Saturation 98.2 H, VBG Base Excess 4.1 H, VBG Lactic Acid 2.3 H 05/25/25 07:20: Urine Color Yellow, Urine Appearance Clear, Urine pH 7.0, Ur Specific [place] 1.015, Urine Protein Negative, Urine Glucose (UA) Trace, Urine Ketones 1+, Urine Blood Negative, Urine Nitrate Negative, Urine Bilirubin Negative, Urine Urobilinogen 0.2, Ur Leukocyte Esterase Negative, Urine RBC None, Urine WBC Occasional, Ur Squamous Epith Cells 3-5, Urine Bacteria Trace I & O for Last 24 hours: Intake & Output 05/22/25 05/23/25 05/24/25 05/25/25 23:59 23:59 23:59 23:59 Weight 88.904 kg Constitutional Constitutional: mild distress, obese, chronically ill appearing and cooperative *Routine HEENT Exam Head: Present normocephalic and atraumatic Eye: Present EOMI and PERRL ENT: Present mucous membranes moist and oropharynx clear *Routine Neck Exam Neck: Present supple and full ROM *Routine Respiratory Exam Respiratory: Present CTA bilaterally, crackles (Bases bilaterally), normal respiratory effort, able to speak in complete sentences and symmetric chest movement; Absent accessory muscle use or respiratory distress *Routine Cardiovascular Exam Cardiovascular: Present RRR, Normal S1 and Normal S2 *Routine Abdominal Exam Abdominal: Present soft, normoactive bowel sounds and tenderness (Generalized tenderness, most prominent in epigastric region); Absent distended *Routine Rectal Exam Rectal:: deferred *Routine Genitalia Exam Genitalia:: deferred *Routine Extremities Exam Extremities: Present full ROM, pulses intact and normal capillary refill; Absent edema *Routine Skin Exam Skin: Present intact, dry and warm *Routine Neurological Exam Neurological: Present alert, oriented X3, CN II-XII intact and moving all extremities; Absent altered mental status Assessment and Plan *Assessment and plan (1) GI bleeding: Status: Acute Category: Medical Code(s): K92.2 - Gastrointestinal hemorrhage, unspecified (2) Pneumonia involving right lung: Status: Acute Category: Medical Code(s): J18.9 - Pneumonia, unspecified organism (3) Acute blood loss anemia: Status: Acute Category: Medical Code(s): D62 - Acute posthemorrhagic anemia (4) Nausea & vomiting: Status: Inactive Category: Medical Code(s): R11.2 - Nausea with vomiting, unspecified (5) Dementia: Status: Acute Category: Medical Code(s): F03.90 - Unspecified dementia, unspecified severity, without behavioral disturbance, psychotic disturbance, mood disturbance, and anxiety (6) Diabetes mellitus: Status: Acute Category: Medical Code(s): E11.9 - Type 2 diabetes mellitus without complications (7) Hypothyroidism: Status: Acute Category: Medical Code(s): E03.9 - Hypothyroidism, unspecified (8) COPD (chronic obstructive pulmonary disease): Status: Acute Qualifiers: COPD type: unspecified COPD Qualified Code(s): J44.9 - Chronic obstructive pulmonary disease, unspecified Category: Medical Code(s): J44.9 - Chronic obstructive pulmonary disease, unspecified (9) Hypomagnesemia: Status: Acute Category: Medical Code(s): E83.42 - Hypomagnesemia (10) Obesity (BMI 30-39.9): Status: Chronic Category: Medical Code(s): E66.9 - Obesity, unspecified Plan Ms. Castellanos is a 69-year-old female who to the ER with complaint of nausea and vomiting, coffee-ground's, abdominal pain. Workup was found to have anemia, had a melenic stool while in the ER. Concern for GI bleed. BUN disproportionate to creatinine consistent with blood loss in the digestive tract. Discussed case with ER physician, request admission for further management of GI bleed, anemia, and suspected pneumonia on chest imaging. I decided to admit for further care and consultation with GI. N.p.o. at midnight. Treating with Protonix twice daily. Holding blood thinners. Necessitating inpatient care. Problems addressed as follows: #Community-acquired pneumonia ?Has a general requirement of 2 L. Normally wears 2 L at home while asleep. Chest imaging per my review shows right lower lobe airspace disease. - Initiated on broad-spectrum antibiotics with azithromycin and ceftriaxone. Continue 1 g ceftriaxone IV and 500 mg azithromycin daily. Cultures obtained and pending - Supplemental oxygen as needed for goal sats greater 90%. Currently on 2 L - Chest CT per my review with mild right middle and lower lobe opacifications. Consistent with pneumonia. White count of 11.8. -Repeat CBC, CMP, magnesium ordered for the morning. #Nausea and vomiting # GI bleed # Acute blood loss anemia #Hiatal hernia ? Patient started Ozempic this past week. Has had abdominal pain since. Developed nausea and vomiting over the past 2448 hrs. Found to have coffee-ground emesis. Had melenic stool in the ED. -Anemia new with hemoglobin 11.5, down from 13 on labs a month ago. -BUN elevated at 48, creatinine 0.7. Disproportionate elevation consistent/concerning for blood in the digestive tract -Clear liquid diet for now, n.p.o. at midnight with GI consult in the morning with plan for EGD -Loaded on pantoprazole 80 mg IV once. Continue 40 mg IV twice daily. -Holding blood thinners #Dementia #Diabetes mellitus #Hypothyroidism #COPD #History of DVT ? Restart patient's home medicines atorvastatin 20 mg, gabapentin 300 mg 3 times daily, levothyroxine 75 mcg, memantine 10 mg, metoprolol 50 mg twice daily - In regard to her CAD, she was stented in September 2024. Will hold Effient and aspirin in the setting of blood loss anemia as above. - Continue Remeron 50 mg. Continue Advair inhaler. ? DuoNebs every 6 hours as needed for shortness of breath. ? Hold Jardiance 10 mg due to persistent stress incontinence, urge incontinence, and recent UTI. A1c 8/4 of 6.4 Will have therapy evaluate patient as she was just admitted a month ago with sepsis and was recommended to go home with 24-hour assistance and home health. Full code Clear liquid diet, n.p.o. at midnight VTE contraindicated due to GI bleed. Recommend SCDs
[2025-05-25 10:42] LABS: Troponin I < 0.01 ng/ml (0.00-0.034)
--- NOTE | 2025-05-25 10:47 | PC.NURSE ---
Report given to SRAVANI Tubbs
--- NOTE | 2025-05-25 10:54 | HMH.PHAINT1 ---
Pharmacy Intervention Comments: MEDICATION RECONCILIATION COMPLETED ON PATIENT USING EXTERNAL FILL HISTORY FROM PHARMACY AND LIST FROM PCP OFFICE. -[place], [place]
[2025-05-25] MEDS: AZITHROMYCIN 500 MG in 0.9 % SODIUM CHLORIDE 250 ML 250 MG IV (10:58)
[2025-05-25 11:07] LABS: Reflex Lactic Add Lactic Reflex
[2025-05-25 12:25] LABS: POC Glucose,Bedside 159 (70-110)
[2025-05-25 12:49] LABS: Lactic Acid Follow Up (RFLX 1) 1.4 mmol/L (0.7-2.1)
[2025-05-25 13:01] LABS: Troponin I < 0.01 ng/ml (0.00-0.034)
--- NOTE | 2025-05-25 18:12 | PC.NURSE ---
patient is a/ox4 and remains on 2LNC. VSS. patient has not had emesis since being admitted to the floor. patient has no c/o abd pain and states she feels a little bit better. surgical consent signed and on patient chart. SCDS for VTE. remains on clear liquids tolerating well. family at bedside.call light within reach, PW in place. no complaints at this time.
[2025-05-25] MEDS: ATORVASTATIN 20MG TABLET 20 MG PO (20:21)
[2025-05-25] MEDS: MIRTAZAPINE 15 MG TABLET PO (20:21)
[2025-05-25] MEDS: METOPROLOL SUCCINATE XL 50MG TABLET 50 MG PO (20:21)
[2025-05-25] MEDS: GABAPENTIN 300MG CAPSULE 300 MG PO (20:21)
[2025-05-25] MEDS: NYSTATIN TOPICAL POWDER 30GM TP (20:22)
[2025-05-25] MEDS: MONTELUKAST SODIUM 10MG TAB 10 MG PO (20:22)
[2025-05-25] MEDS: PANTOPRAZOLE 40MG TABLET 40 MG PO (22:43)
--- NOTE | 2025-05-25 23:47 | PC.NURSE ---
Pts Iv in the right forearm went bad and was removed. Attempted to insert new IV and was unsuccessful. 3 other nurses attempted to place an IV and all were unsuccessful. Protonix switched to PO at this time.
[2025-05-26] VITALS (17 sets, daily range): BP systolic 110–147; BP diastolic 49–83; PULSE 89–109; RESP 16–20; TEMP 36.4–36.9; O2SAT 92–98; BMI 39.2
[2025-05-26 06:18] LABS: POC Glucose,Bedside 127 (70-110)
[2025-05-26 06:18] LABS: POC Glucose,Bedside 129 (70-110)
[2025-05-26 06:59] LABS: Hematocrit 28.1 % (37.0-47.0); Immature Granulocytes % 0.3 %; Mean Corpuscular HGB Conc 31.3 g/dL (31.8-35.4); Mean Corpuscular Hemoglobin 29.6 pg (27.0-31.2); Mean Corpuscular Volume 94.6 fl (81-99); Nucleated Red Blood Cells % 0 %; Platelet Count 148 K/mm3 (142-424); Red Blood Count 2.97 M/mm3 (4.20-5.40); Red Cell Distribution Width-SD 46.4 fL; White Blood Count 6.5 K/mm3 (4.8-10.8)
[2025-05-26 07:05] LABS: Albumin Level 3.3 g/dl (3.5-5.0); Chloride 102 mmol/L (98-107); Potassium 3.8 mmoL/L (3.5-5.1); Sodium 137 mmol/L (136-145)
[2025-05-26 07:07] LABS: Alanine Aminotransferase 19 U/L (12-78); Aspartate Amino Transferase 24 U/L (14-36); Blood Urea Nitrogen 32 mg/dl (7-17); Creatinine Clearance Estimated 79 mL/min (50-200); Creatinine,Serum 0.70 mg/dl (0.52-1.04); Estimated Glomerular Filt Rate 83 ml/min (>60); GFR (African American) 101 ML/MIN (>60)
[2025-05-26 07:08] LABS: Albumin/Globulin Ratio 1.2 (1.1-1.8); Alkaline Phosphatase 63 U/L (38-126); Anion Gap 8.8 mEq/L (5-15); Bilirubin,Total 0.4 mg/dl (0.2-1.3); Calcium 8.3 mg/dl (8.4-10.2); Carbon Dioxide 30 mmol/L (22.0-30.0); Globulin 2.7 g/dL (1.3-3.2); Glucose 120 mg/dl (74-100); Magnesium 1.7 mg/dl (1.6-2.3); Total Protein,Serum 6.0 g/dl (6.3-8.2)
--- NOTE | 2025-05-26 07:30 | EXP.ANES.CKL ---
[facility] Disclaimer: The information contained in this section may have been updated after the patient was seen, as this information can be updated by other users. 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 Nausea & vomiting Diarrhea Fever Sepsis Back pain Screening for osteoporosis Bacteremia due to Klebsiella pneumoniae UTI (urinary tract infection) Keratosis Incurvated nail Hypomagnesemia Vaginal irritation Dysuria Stress incontinence Urge incontinence Overactive bladder Allergic rhinitis Coronary artery calcification seen on CAT scan Chest pain Fatigue History of DVT of lower extremity History of sleep apnea Bronchitis, mucopurulent recurrent Dyspnea on exertion Bronchiectasis Asthma Edema Hyperlipidemia associated with type 2 diabetes mellitus Urinary incontinence Onychomycosis Diabetic neuropathy Breast cancer screening by mammogram Dementia Diabetes mellitus Bronchitis COPD (chronic obstructive pulmonary disease) Colonoscopy planned Gallbladder anomaly Rheumatoid arthritis Osteoporosis Back pain Acid reflux disease Carpal tunnel syndrome Anxiety Hypothyroidism Sleep apnea High blood pressure Arthritis Varicose veins of ankle Depression Acute asthma Surgical History History of cataract surgery History of esophagogastroduodenoscopy (EGD) H/O right heart catheterization History of cholecystectomy H/O tubal ligation History of hernia repair Total knee replacement status Social History (Updated 05/25/25 @ 11:27 by Santa Knight RN) Smoking Status: Never smoker alcohol intake: never substance use type: denies use current occupational status: unemployed Travel in the last 8 weeks?: None Have you lived/traveled outside [place] in past 30 days?: No Contact w/someone who lives/traveled outside US past 30 days?: No Exposure to someone with infectious disease in past 14 days?: No Do you have a fever (greater than 100.4 F or 38 C)?: No Have you tested positive for COVID-19?: No Exposed to someone with COVID-19 in past 14 days?: No Do you have a sore throat?: No Do you have a cough?: No Do you have any weakness?: Yes Are you experiencing any nausea/vomitting?: No Do you have any diarrhea?: No Are you experiencing any unusual bleeding?: No Do you have any muscle aches/pain?: No Do you have any abdominal pain?: No Are you experiencing loss of taste or smell?: No [facility] Anesthesia Checklist Patient Identification Patient Identification: Arm Band and Verbal (Name & ) Structural Data Admitted From: Home Planned Operative Procedure/s: EGD Verified Documents: Surgical Consent NPO Status Verified Time NPO: 00:00 Chart Verification Results Verified: ECG Additional verifications Anesthesia Reactions: No Airway Assessment Mallampati Score:: Class II C-Spine Mobility Assessed: Yes TMJ Mobility Assessed: Yes Dentition: Edentulous Neurological Assessment Level of Consciousness: Awake, Alert and Appropriate Hx Seizures: No Numbness or tingling in extremities: No Anesthesia Plan Anesthesia Risk discussed: Yes Anesthesia Plan: Verified ASA Class: III Anesthesia Type: MAC
--- NOTE | 2025-05-26 07:33 | EXP.HP ---
History of Present Illness *Admission Date: 05/25/25 *History of present illness: 69-year-old female who presents from home with abdominal pain, nausea vomiting. Started Ozempic this past week for diabetes. Of note was admitted a month ago for UTI. States that she has had abdominal pain ever since her first dose of Ozempic. Developed nausea and vomiting over the past 24 hours. Vomiting was accompanied by coffee-ground emesis and noted to have melenic stool in the ED. Having epigastric abdominal pain. Takes aspirin and prasugrel at home for CAD status post stents in September 2024. Workup in the ER with imaging showing right middle and lower lobe pneumonia, anemia, elevated BUN consistent with GI bleed. Medicine consulted for admission and further management of GI bleed along with GI consult in the morning. Protonix loaded in the ED. On nasal cannula oxygen. Received ceftriaxone and azithromycin. On arrival to the floor, patient is feeling a little bit better after receiving IV fluids. Has family at bedside helps supplement history due to patient's memory impairment. She complains of abdominal pain mainly epigastric. Denies fever. Has had some chills. No chest pain or shortness of breath beyond baseline. Wearing oxygen continuously now however, normally only wears it at night. [facility] Disclaimer: The information contained in this section may have been updated after the patient was seen, as this information can be updated by other users. 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 Nausea & vomiting Diarrhea Fever Sepsis Back pain Screening for osteoporosis Bacteremia due to Klebsiella pneumoniae UTI (urinary tract infection) Keratosis Incurvated nail Hypomagnesemia Vaginal irritation Dysuria Stress incontinence Urge incontinence Overactive bladder Allergic rhinitis Coronary artery calcification seen on CAT scan Chest pain Fatigue History of DVT of lower extremity History of sleep apnea Bronchitis, mucopurulent recurrent Dyspnea on exertion Bronchiectasis Asthma Edema Hyperlipidemia associated with type 2 diabetes mellitus Urinary incontinence Onychomycosis Diabetic neuropathy Breast cancer screening by mammogram Dementia Diabetes mellitus Bronchitis COPD (chronic obstructive pulmonary disease) Colonoscopy planned Gallbladder anomaly Rheumatoid arthritis Osteoporosis Back pain Acid reflux disease Carpal tunnel syndrome Anxiety Hypothyroidism Sleep apnea High blood pressure Arthritis Varicose veins of ankle Depression Acute asthma Surgical History History of cataract surgery History of esophagogastroduodenoscopy (EGD) H/O right heart catheterization History of cholecystectomy H/O tubal ligation History of hernia repair Total knee replacement status Social History (Updated 05/25/25 @ 11:27 by Santa Knight RN) Smoking Status: Never smoker alcohol intake: never substance use type: denies use current occupational status: unemployed Travel in the last 8 weeks?: None Have you lived/traveled outside US in past 30 days?: No Contact w/someone who lives/traveled outside US past 30 days?: No Exposure to someone with infectious disease in past 14 days?: No Do you have a fever (greater than 100.4 F or 38 C)?: No Have you tested positive for COVID-19?: No Exposed to someone with COVID-19 in past 14 days?: No Do you have a sore throat?: No Do you have a cough?: No Do you have any weakness?: Yes Are you experiencing any nausea/vomitting?: No Do you have any diarrhea?: No Are you experiencing any unusual bleeding?: No Do you have any muscle aches/pain?: No Do you have any abdominal pain?: No Are you experiencing loss of taste or smell?: No Other 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 Have you received the Flu Vaccine for this season: Yes Have you received the Pneumonia Vaccine: Yes Review of Systems Review of Systems Review of systems (narrative): Negative *Cardiovascular Comments: Negative *Gastrointestinal Comments: Negative *Genitourinary Comments: Negative *Musculoskeletal Comments: Negative *Neurologic Comments: Negative Meds Home Medications and Allergies Home Medications ?Medication ?Instructions ?Recorded ?Confirmed ?Type alendronate 70 mg tablet 70 mg PO WEEKLY 09/16/24 05/25/25 History fluticasone propionate 50 2 spray intranasal DAILY 09/16/24 05/25/25 History mcg/actuation nasal spray,suspension magnesium oxide 500 mg PO DAILY 12/16/24 05/25/25 History cholecalciferol (vitamin D3) 125 125 mcg PO DAILY 01/13/25 05/25/25 History mcg (5,000 unit) capsule mecobalamin (vitamin B12) 500 mcg 500 mcg PO DAILY 01/13/25 05/25/25 History chewable tablet nitroglycerin 0.4 mg sublingual 0.4 mg sublingual Q5-15M PRN Chest 01/13/25 05/25/25 History tablet Pain fluticasone 100 mcg-salmeterol 50 1 ea inhalation BID 01/20/25 05/25/25 History mcg/dose blistr powdr for inhalation prasugrel HCl 10 mg tablet 10 mg PO DAILY 30 days #30 tabs 05/12/25 05/25/25 Rx (Effient) atorvastatin 20 mg tablet 20 mg PO HS #90 tabs 05/19/25 05/25/25 Rx estradiol 0.01% (0.1 mg/gram) 1 appful vaginal DIRECTED 05/19/25 05/25/25 History vaginal cream gabapentin 300 mg capsule 300 mg PO TID #90 caps 05/19/25 05/25/25 Rx levothyroxine 75 mcg tablet 75 mcg PO DAILY #90 tabs 05/19/25 05/25/25 Rx memantine 10 mg tablet 10 mg PO DAILY #90 tabs 05/19/25 05/25/25 Rx metoprolol succinate 50 mg 50 mg PO BID #180 tabs 05/19/25 05/25/25 Rx tablet,extended release 24 hr mirtazapine 15 mg tablet 15 mg PO HS #90 tabs 05/19/25 05/25/25 Rx montelukast 10 mg tablet 10 mg PO DAILY #90 tabs 05/19/25 05/25/25 Rx nystatin 100,000 unit/gram topical 1 applic topical TID 05/19/25 05/25/25 History powder potassium chloride 10 mEq 10 meq PO DAILY #90 tabs 05/19/25 05/25/25 Rx tablet,extended release(part/cryst) Diabetic Shoes (DME) #1 ea 05/20/25 05/20/25 Rx chlorthalidone 25 mg tablet 25 mg PO DAILYP PRN edema 05/25/25 05/25/25 History meloxicam 15 mg tablet 15 mg PO DAILYP PRN Mild Pain 05/25/25 05/25/25 History (Scale Score 1-4) nitrofurantoin 100 mg PO HS 05/25/25 05/25/25 History monohydrate/macrocrystals 100 mg capsule (Macrobid) vonoprazan 10 mg tablet (Voquezna) 10 mg PO DAILY 05/25/25 05/25/25 History New Prescriptions to Start Prescriptions: Allergies Allergy/AdvReac Type Severity Reaction Status Date / Time hydrocodone Allergy Mild Unknown Verified 05/20/25 14:50 allergy reaction acetaminophen (From Allergy Unknown Verified 05/20/25 14:50 Tylenol-Codeine #3) allergy reaction metformin Allergy Unknown Verified 05/20/25 14:50 allergy reaction codeine AdvReac Mild Unknown Verified 05/20/25 14:50 allergy reaction morphine AdvReac Gastrointestinal Verified 05/25/25 10:33 Upset Exam Data for Last 24 hours Vital signs and Labs for Last 24 Hours: Temp Pulse Resp BP Pulse Ox O2 Del Method O2 Flow Rate 98.0 F 92 H 16 119/68 98 Nasal Cannula 2 05/26/25 06:21 05/26/25 06:21 05/26/25 06:21 05/26/25 06:21 05/26/25 06:21 05/26/25 06:43 05/26/25 06:43 Laboratory Results - last 24 hr 05/25/25 06:56: Troponin I < 0.01, C-Reactive Protein 1.6, Procalcitonin 0.079 05/25/25 07:20: Urine RBC None, Urine WBC Occasional, Ur Squamous Epith Cells 3-5, Urine Bacteria Trace 05/25/25 09:50: Troponin I < 0.01 05/25/25 10:00: Blood Type O Negative, Antibody Screen Negative 05/25/25 12:03: POC Glucose 159 H 05/25/25 12:30: Lactate 1.4, Troponin I < 0.01 05/25/25 17:10: POC Glucose 127 H 05/25/25 20:25: POC Glucose 129 H 05/26/25 06:17: WBC 6.5 D, RBC 2.97 L, Hct 28.1 L, MCV 94.6, MCH 29.6, MCHC 31.3 L, RDW 13.3, Plt Count 148, MPV 10.6 H, Neut % (Auto) 40.0, Lymph % (Auto) 44.7, Throckmorton % (Auto) 11.6 H, Eos % (Auto) 2.9, Baso % (Auto) 0.5, Neut # (Auto) 2.6, Lymph # (Auto) 2.9, Throckmorton # (Auto) 0.8, Eos # (Auto) 0.2, Baso # (Auto) 0.0, Sodium 137, Potassium 3.8, Chloride 102, Carbon Dioxide 30, Anion Gap 8.8, BUN 32 H D, Creatinine 0.70, Estimated Creat Clear 79, Estimated GFR 83, Est GFR ( Amer) 101, Glucose 120 H D, Calcium 8.3 L, Magnesium 1.7 D, Total Bilirubin 0.4, AST 24, ALT 19, Alkaline Phosphatase 63, Total Protein 6.0 L, Albumin 3.3 L D, Globulin 2.7, Albumin/Globulin Ratio 1.2 I & O for Last 24 hours: Intake & Output 05/23/25 05/24/25 05/25/25 05/26/25 23:59 23:59 23:59 23:59 Intake Total 550 / 550 Output Total 1050 / 1050 Balance -500 / -500 Weight 201 lb 3.2 oz *Routine HEENT Exam Head: Present normocephalic Eye: Present EOMI and PERRL ENT: Present mucous membranes moist *Routine Neck Exam Neck: Present supple *Routine Respiratory Exam Respiratory: Present CTA bilaterally *Routine Cardiovascular Exam Cardiovascular: Present RRR *Routine Abdominal Exam Abdominal: Present soft and normoactive bowel sounds; Absent tenderness *Routine Rectal Exam Rectal:: deferred *Routine Genitalia Exam Genitalia:: deferred *Routine Extremities Exam Extremities: Absent cyanosis, clubbing or edema *Routine Skin Exam Skin: Present warm; Absent rash *Routine Neurological Exam Neurological: Present alert and oriented X3 Assessment and Plan *Assessment and plan (1) Acute blood loss anemia: Status: Acute Category: Medical Code(s): D62 - Acute posthemorrhagic anemia (2) Upper GI bleed: Status: Acute Category: Medical Code(s): K92.2 - Gastrointestinal hemorrhage, unspecified (3) Melena: Status: Acute Category: Medical Code(s): K92.1 - Melena (4) Coffee ground emesis: Status: Acute Category: Medical Code(s): K92.0 - Hematemesis Plan A/P: 1. Coffee-ground emesis with dark stools and probable upper GI bleed with anemia and blood loss is the preprocedural diagnosis. The patient will be anesthetized/sedated using MAC sedation. The patient has been seen and examined. Cardiac and lung assessment prior to the examination is stable. Proceed with planned diagnostic EGD.
--- NOTE | 2025-05-26 07:37 | P.PCN_ITS ---
[facility] Procedure Note Date: 05/26/25 Time: 07:48 Procedure Note:: Upper Endoscopy Procedure Report: Esophagogastroduodenoscopy with Endo Clip placement and cold biopsies Endoscopost: Reji May II, MD Referring Physician: Reza Panchal MD Date of Procedure: May 26, 2025 Equipment: Olympus GIF-1100 standard upper endoscope Sedation: MAC sedation Indications: Mrs. Catsellanos is a 69-year-old female who presents with nausea, upper abdominal pain and coffee-ground emesis or brown emesis. She also has had some dark stools. She has been on Effient. She was tachycardic in the ED. Her hemoglobin hematocrit yesterday were 11.5 and 35.0. Her hematocrit declined this morning to 28.1. Liver chemistries and lipase were normal. 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 EGD is performed to exclude GI source of hematemesis and acute GI blood loss. The patient does state that her symptoms started fairly soon after she began taking Ozempic recently. The patient does state that she has had hernia repairs including hiatal hernia repair. She had an EGD many years ago. Procedure: Prior to the procedure, a history and physical exam was performed, and patient's medications and allergies were reviewed. The risks, benefits and alternatives of the sedation and procedure were discussed with the patient. All questions were answered and informed consent was obtained. The patient was brought to the procedure room. Patient identification and proposed procedure were verified by the physician and the nurse. The patient was placed in a left lateral decubitus position and the scope was passed under direct vision. Throughout the procedure, the patient's blood pressure, pulse, and oxygen saturations were shane tored continuously. The upper GI endoscopy was accomplished without difficulty. The patient tolerated the procedure well. Findings: The scope was passed directly into the upper esophagus and advanced to the third portion of the duodenum. 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 The post bulbar duodenum, ampulla and duodenal bulb were otherwise normal with normal mucosa and conniventes. The scope was withdrawn through the pylorus and there was a pyloric channel ulceration with flat stigmata but no visible vessel. This encompassed the medial circumference of the pylorus. A single Mantis Endo Clip (larger Endo Clip) was utilized to completely close and sealed the pyloric channel ulcer. The scope was then withdrawn into the stomach. There was some moderate chronic gastritis of the proximal stomach. Cold biopsies were obtained from the stomach. Upon retroflexion there was a small hiatal hernia. The scope was then withdrawn into the esophagus. There was evidence of grade B (LA classification) reflux esophagitis. There was no evidence of Anderson's esophagus. The remainder of the esophageal mucosa was normal. Impression: 1. 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 Mild to moderate chronic gastritis 3. Grade B (LA classification) reflux esophagitis. Plan: I would recommend transition to oral PPI therapy. I would not reinitiate Ozempic/GLP-1 therapy. I will check biopsies for H. pylori. The patient can begin clear liquids today and advance diet as tolerated.
--- NOTE | 2025-05-26 08:34 | SW/DCPLANNER ---
Addendum entered by Caryn Ovalles 05/27/25 11:10: Faxed patient's packet to [facility] and [facility] is able to accept patient. JeanJosr Powell Addendum entered by Paula Booker 05/27/25 08:38: PT/OT evaluated patient and recommended SNF level of care. Patient and daughter present in room this AM are not interested in placement. Patient prefers to return to her granddaughter's house w/ home health services. Patient does not have an agency preference for home health. CM will continue to follow up w/ patient, family and home health. Per MD patient will discharge home today. Original Note: Patient is currently down for EGD this AM. I did speak w/ patient's granddaughter/POA regarding plans once medically stable for discharge. POA stated that she is her caregiver at home and is paid through [facility] W[employer] services. Patient also has a rolling walker at home. CM will continue to follow up w/ patient and family to assist w/ any needs/new orders. Discharge date is unknown at this time.
[2025-05-26 09:09] LABS: Hemoglobin 8.8 g/dL (12.2-16.2)
[2025-05-26] MEDS: SODIUM CHLORIDE 3% 15ML NEB 3 ML IH (09:12)
--- NOTE | 2025-05-26 10:10 | P.PN_ITS ---
<Statement entered by Allan Baca MD - 05/26/25 13:31> Rounded on patient after nurse practitioner. Personally examined and interviewed patient. Agree with exam findings and care plan as documented. Subjective *Date: 05/26/25 *Time: 13:23 Interval history: Patient sitting up in bed, family at bedside. Patient had EGD this morning with Dr. May, was found to have a pyloric sphincter ulceration. Endo Clip was placed. Patient feels well, will advance to clear liquid diet. Hemoglobin dropped to 8.8. Will continue to monitor. Medical Exam Vital signs and Labs for Last 24 Hours: Vital Signs Temp Pulse Pulse Resp BP BP Pulse Ox 05/26/25 09:13 93 H 18 05/26/25 08:58 05/26/25 08:10 102 H 17 115/53 L 92 L 05/26/25 08:00 95 05/26/25 08:00 98.0 F 101 H 17 114/49 L 95 05/26/25 06:43 05/26/25 06:21 98.0 F 92 H 16 119/68 98 05/26/25 05:00 05/26/25 04:00 98.1 F 104 H 16 125/83 97 05/26/25 03:00 05/26/25 01:00 05/26/25 00:00 98.0 F 92 H 16 119/64 98 05/25/25 23:00 05/25/25 21:00 05/25/25 20:00 05/25/25 20:00 97.9 F 106 H 16 128/64 97 05/25/25 18:49 05/25/25 17:00 05/25/25 16:00 98.1 F 99 H 20 112/63 98 05/25/25 14:50 05/25/25 13:00 05/25/25 11:11 97.9 F 107 H 17 126/78 96 05/25/25 11:00 05/25/25 10:48 98.7 F 108 H 20 116/67 05/25/25 10:45 O2 Del Method O2 Flow Rate 05/26/25 09:13 05/26/25 08:58 Room Air 05/26/25 08:10 Room Air 05/26/25 08:00 Room Air 05/26/25 08:00 Room Air 05/26/25 06:43 Nasal Cannula 2 05/26/25 06:21 Nasal Cannula 2 05/26/25 05:00 Nasal Cannula 2 05/26/25 04:00 2 05/26/25 03:00 Nasal Cannula 2 05/26/25 01:00 Nasal Cannula 2 05/26/25 00:00 Nasal Cannula 2 05/25/25 23:00 Nasal Cannula 2 05/25/25 21:00 Nasal Cannula 2 05/25/25 20:00 Nasal Cannula 2 05/25/25 20:00 Nasal Cannula 2 05/25/25 18:49 Nasal Cannula 05/25/25 17:00 Nasal Cannula 05/25/25 16:00 Nasal Cannula 2 05/25/25 14:50 Nasal Cannula 05/25/25 13:00 Nasal Cannula 05/25/25 11:11 Nasal Cannula 2 05/25/25 11:00 Nasal Cannula 05/25/25 10:48 05/25/25 10:45 Nasal Cannula Intake and Output 05/25/25 05/26/25 05/26/25 23:59 07:59 15:59 Intake Total 150 / 550 Output Total 1050 / 1050 900 / 900 Balance -900 / -500 -900 / -900 Intake: Intake, Oral Amount 150 / 550 Output: Output, Urine Amount 1050 / 1050 900 / 900 Other: Number of Unmeasured Voids 0 1 Weight 91.263 kg 90.718 kg Patient Weight 05/26/25 23:59 Weight 90.718 kg Laboratory Results - last 24 hr 05/25/25 09:50: Troponin I < 0.01 05/25/25 10:00: Blood Type O Negative, Antibody Screen Negative 05/25/25 12:03: POC Glucose 159 H 05/25/25 12:30: Lactate 1.4, Troponin I < 0.01 05/25/25 17:10: POC Glucose 127 H 05/25/25 20:25: POC Glucose 129 H 05/26/25 06:17: WBC 6.5 D, RBC 2.97 L, Hgb 8.8 L D, Hct 28.1 L, MCV 94.6, MCH 29.6, MCHC 31.3 L, RDW 13.3, Plt Count 148, MPV 10.6 H, Neut % (Auto) 40.0, Lymph % (Auto) 44.7, Peach % (Auto) 11.6 H, Eos % (Auto) 2.9, Baso % (Auto) 0.5, Neut # (Auto) 2.6, Lymph # (Auto) 2.9, Peach # (Auto) 0.8, Eos # (Auto) 0.2, Baso # (Auto) 0.0, Sodium 137, Potassium 3.8, Chloride 102, Carbon Dioxide 30, Anion Gap 8.8, BUN 32 H D, Creatinine 0.70, Estimated Creat Clear 79, Estimated GFR 83, Est GFR ( Amer) 101, Glucose 120 H D, Calcium 8.3 L, Magnesium 1.7 D , Total Bilirubin 0.4, AST 24, ALT 19, Alkaline Phosphatase 63, Total Protein 6.0 L, Albumin 3.3 L D, Globulin 2.7, Albumin/Globulin Ratio 1.2 I & O for Labs for Last 24 Hours: Intake & Output 05/23/25 05/24/25 05/25/25 05/26/25 23:59 23:59 23:59 23:59 Intake Total 550 / 550 Output Total 1050 / 1050 900 / 900 Balance -500 / -500 -900 / -900 Weight 91.263 kg 90.718 kg Constitutional: Present no acute distress, obese, chronically ill appearing and cooperative Head: Present atraumatic and normocephalic ENT: Present normal exam Neck: Present normal inspection Respiratory: Present CTA bilaterally, normal respiratory effort, able to speak in complete sentences and symmetric chest movement; Absent respiratory distress, rhonchi, stridor, wheezes or crackles Cardiac: Present Reg Rate and Rhythm GI: Present soft and hypoactive bowel sounds; Absent distention or tenderness Rectal (female): Present deferred (female): Present deferred Extremities: Present normal inspection, full ROM and edema; Absent tenderness Skin: Present intact, dry and warm; Absent erythema Neuro: Present Grossly Intact, alert, awake, oriented x 3 and moves all extremities Assessment and Plan *Assessment and plan (1) GI bleeding: Status: Acute Category: Medical Code(s): K92.2 - Gastrointestinal hemorrhage, unspecified (2) Pneumonia involving right lung: Status: Acute Category: Medical Code(s): J18.9 - Pneumonia, unspecified organism (3) Acute blood loss anemia: Status: Acute Category: Medical Code(s): D62 - Acute posthemorrhagic anemia (4) Nausea & vomiting: Status: Inactive Category: Medical Code(s): R11.2 - Nausea with vomiting, unspecified (5) Dementia: Status: Acute Category: Medical Code(s): F03.90 - Unspecified dementia, unspecified severity, without behavioral disturbance, psychotic disturbance, mood disturbance, and anxiety (6) Diabetes mellitus: Status: Acute Category: Medical Code(s): E11.9 - Type 2 diabetes mellitus without complications (7) Hypothyroidism: Status: Acute Category: Medical Code(s): E03.9 - Hypothyroidism, unspecified (8) COPD (chronic obstructive pulmonary disease): Status: Acute Qualifiers: COPD type: unspecified COPD Qualified Code(s): J44.9 - Chronic obstructive pulmonary disease, unspecified Category: Medical Code(s): J44.9 - Chronic obstructive pulmonary disease, unspecified (9) Hypomagnesemia: Status: Acute Category: Medical Code(s): E83.42 - Hypomagnesemia (10) Obesity (BMI 30-39.9): Status: Chronic Category: Medical Code(s): E66.9 - Obesity, unspecified Plan Ms. Castellanos is a 69-year-old female who to the ER with complaint of nausea and vomiting, coffee-ground's, abdominal pain. Workup was found to have anemia, had a melenic stool while in the ER. Concern for GI bleed. BUN disproportionate to creatinine consistent with blood loss in the digestive tract. Discussed case with ER physician, request admission for further management of GI bleed, anemia, and suspected pneumonia on chest imaging. Patient was admitted for further care and management, consultation with GI. Treating with Protonix twice daily. Holding blood thinners. Necessitating inpatient care. Problems addressed as follows: #Community-acquired pneumonia ? Has a general requirement of 2 L. Normally wears 2 L at home while asleep. Chest imaging per my review shows right lower lobe airspace disease. - Initiated on broad-spectrum antibiotics with azithromycin and ceftriaxone. Continue 1 g ceftriaxone IV and 500 mg azithromycin daily. Blood cultures show no growth after 24 hours. Will continue to monitor. - Supplemental oxygen as needed for goal sats greater 90%. Currently on 2 L, stable O2 saturation 96%. - WBC stable at 6.5. - Repeat CBC, CMP, magnesium ordered for the morning. #Nausea and vomiting # GI bleed # Acute blood loss anemia #Hiatal hernia ? Patient started Ozempic this past week. Has had abdominal pain since. Devel oped nausea and vomiting over the past 24-48 hrs. Found to have coffee-ground emesis. Had melenic stool in the ED. - Patient baseline hemoglobin around 13, hemoglobin this morning 8.8. Continuing to monitor. Patient denies coffee-ground emesis or melenic stools at this time. 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 - GI recommended transition to oral PPI therapy, patient currently taking Voquenza prescribed by her PCP. Will continue PPI inpatient setting. Biopsies were taken during the procedure today to check for H. pylori. - Continuing pantoprazole 40 mg twice daily IV. - Holding blood thinners, patient currently taking Effient. Appears to be supposed to be on DAPT therapy, aspirin and Effient. Patient denies taking aspirin. Will discuss with GI regarding continuing it Effient versus aspirin at discharge. - CBC, CMP ordered for the a.m. #Dementia #Diabetes mellitus #Hypothyroidism #COPD #History of DVT ? Restart patient's home medicines atorvastatin 20 mg, gabapentin 300 mg 3 times daily, levothyroxine 75 mcg, memantine 10 mg, metoprolol 50 mg twice daily - In regard to her CAD, she was stented in September 2024. Will hold Effient and aspirin in the setting of blood loss anemia as above. - Continue Remeron 50 mg. Continue Advair inhaler. ? DuoNebs every 6 hours as needed for shortness of breath. ? Hold Jardiance 10 mg due to persistent stress incontinence, urge incontinence, and recent UTI. A1c 8/ of 6.4 PT/OT consult: Will have therapy evaluate patient as she was just admitted a month ago with sepsis and was recommended to go home with 24-hour assistance and home health. Full code Clear liquid diet VTE contraindicated due to GI bleed. Recommend SCDs
[2025-05-26] MEDS: LEVOTHYROXINE 75MCG (0.075MG) TAB 75 MCG PO (10:19)
[2025-05-26] MEDS: METOPROLOL SUCCINATE XL 50MG TABLET 50 MG PO ×2 (10:19→21:23)
[2025-05-26] MEDS: MEMANTINE 10MG TABLET 10 MG PO (10:20)
[2025-05-26] MEDS: NYSTATIN TOPICAL POWDER 30GM TP ×3 (10:20→21:12)
[2025-05-26] MEDS: GABAPENTIN 300MG CAPSULE 300 MG PO ×3 (10:35→21:11)
[2025-05-26] MEDS: AZITHROMYCIN 500 MG in 0.9 % SODIUM CHLORIDE 250 ML 250 MG IV (11:16)
--- OUTSIDE RECORDS SUMMARY | 2025-05-26 12:22 | XMS_ITS | Encounter Summary ---
[facility] Address [address] [place] [address] Care Team Providers Care Coil Connector Name Role Phone Reza Panchal MD Primary Care Provider +1- [phone] Encounter Details Date Type Department Care Team (Late st Contact Info) Description 05/14/2025 Telephone [facility] UROLOGY [address] [place] [address] Sanam Saunders APRN [address]60 [facility] [address] [place] [address] Social History Tobacco Use Types Packs/Day Years Used Date Smoking Tobacco: Never Passive Smoke Exposure: Past Smokeless Tobacco: Never Comments: smokes, for 45 years Alcohol Use Standard Drinks/Week Comments No 0 (1 standard drink = 0.6 oz pur e alcohol) [facility] Utilities Answer Date Recorded In the past 12 months has [employer] electric, gas, oil, or water company threatened [...] or training? Not on file Preferred Language Israeli 01/28/2025 PHQ-2 Answer Date Recorded Retired PHQ-9: [...] VERBAL ON FILE Best call back number: [phone] Patient is needing: PT CALLED REQUESTING A LATER APPT TODAY OR FOR ANOTHER DAY THIS WEEK. PLEASE CALL TO ADVISE. THANKS. documented in this encounter Plan of Treatment Upcoming Encounters Date Type Department Care Team (Late st Contact Info) Description 06/03/2025 10:40 AM EDT Appointment [address] [address] 06/05/2025 10:45 AM EDT Office Visit [facility] RHEUMATOLOGY [address] [address] John Sheppard, OPERATIONS AND INTELLIGENCE ASSISTANT [address] [address] 06/13/2025 10:00 AM EDT Office Visit [facility] UROLOGY [address] [address] Sanam Saunders, OPERATIONS AND INTELLIGENCE ASSISTANT 1760 [facility] [address] [place] [address] 07/01/2025 11:00 AM EDT Office Visit [facility] UROLOGY [address] [address] Brennan Lee MD 1760 [facility] [address] [place] [address] 07/16/2025 10:30 AM EDT Office Visit [facility] GASTROENTEROLOGY 1720 [facility] [address] [place] [phone] Palak Graham PA-C 1720 [facility] [address] [place] [address] 07/18/2025 11:30 AM EDT Appointment [facility] OUTPATIENT ONCOLOGY [address] [place] [phone] 07/31/2025 10:00 AM EDT Office Visit [facility] PULMONARY & CRITICAL CARE MEDICINE 3000 [facility] [address] [place] [phone] Maxine Gibson APRN [address] [place] [address] documented as of this encounter Goals Goal [...] documented as of this encounter Care Teams Coil Connector Relationship Specialty Start Date End Date Reza Panchal MD [address] [place] [address] PCP - General Family Medicine 09/30/24 documented as of this encounter
--- OUTSIDE RECORDS SUMMARY | 2025-05-26 12:23 | XMS_ITS | Encounter Summary ---
Author Organization [facility] Address [address] [place] [address] Care Team Providers Care Client Engagement Specialist Name Role Phone Reza Panchal MD Primary Care Provider +1- [phone] Encounter Details Date Type Department Care Team (Latest Contact Info) Description 04/29/2025 Travel Social History Tobacco Use Types Packs/Day Years Used Date Smoking Tobacco: Never Passive Smoke Exposure: Past Smokeless Tobacco: Never Comments: smokes, for 45 years Alcohol Use Standard Drinks/Week Comments No 0 (1 standard drink = 0.6 oz pur e alcohol) [facility] Utilities Answer Date Recorded In the [...] or training? Not on file Preferred Language Cameroonian 01/28/2025 PHQ-2 Answer Date Recorded Retired PHQ-9: [...] 10:40 AM EDT Appointment [facility] DEXA YOEL [address] [place] [address] 06/05/2025 10:45 AM EDT Office Visit [facility] RHEUMATOLOGY 330 [facility] [address] [place] [phone] John Sheppard, RETAIL FINANCIAL ANALYST 330 [facility] [address] [place] [address] 06/13/2025 10:00 AM EDT Office Visit [facility] UROLOGY 1760 [facility] [address] [place] [address] Sanam Saunders, RETAIL FINANCIAL ANALYST 1760 [facility] [address] [place] [address] 07/01/2025 11:00 AM EDT Office Visit [facility] UROLOGY 1760 [facility] [address] [place] [address] Brennan Lee MD 1760 [facility] [address] [place] [address] 07/16/2025 10:30 AM EDT Office Visit [facility] GASTROENTEROLOGY 1720 [facility] [address] [place] [address] Palak Graham PADelano 1720 [facility] [address] [place] [address] 07/18/2025 11:30 AM EDT Appointment [facility] OUTPATIENT ONCOLOGY [address] [place] [address] 07/31/2025 10:00 AM EDT Office Visit [facility] PULMONARY & CRITICAL CARE MEDICINE 3000 [facility] [address] [place] [phone] Maxine Gibson, RETAIL FINANCIAL ANALYST [address] [place] [address] documented as of this encounter Goals Goal [...] documented as of this encounter Care Teams Client Engagement Specialist Relationship Specialty Start Date End Date Reza Panchal MD [address] [phone] PCP - General Family Medicine 09/30/24 documented as of this encounter
--- OUTSIDE RECORDS SUMMARY | 2025-05-26 12:23 | XMS_ITS | Encounter Summary ---
[facility] Address [address] [place] [address] Care Team Providers Care Cardiology Nurse Name Role Phone Reza Panchal MD Primary Care Provider +1- [phone] Reason for Visit * Reason Comments Med Refill Encounter Details Date Type Department Care Team (Late st Contact Info) Description 12/19/2021 Refill [facility] PRIMARY CARE [address] [address] Dia Underwood MD 2039 [facility] 100 [place] [address] Social History Tobacco Use Types Packs/Day Years [...] AM EDT Appointment [facility] MINERVA DIALLO [address] [place] [phone] 06/05/2025 10:45 AM EDT Office Visit [facility] RHEUMATOLOGY [address] [address] John Sheppard WINCHMAN/CRANE OPERATOR [address] [address] 06/13/2025 10:00 AM EDT Office Visit [facility] UROLOGY [address] [address] Sanam Saunders, WINCHMAN/CRANE OPERATOR 1760 [facility] [address] [place] [address] 07/01/2025 11:00 AM EDT Office Visit [facility] UROLOGY [address] [phone] Brennan Lee MD [address] [address] 07/16/2025 10:30 AM EDT Office Visit [facility] GASTROENTEROLOGY [address] [place] [address] Palak Graham PA-C [address] [place] [address] 07/18/2025 11:30 AM EDT Appointment [facility] OUTPATIENT ONCOLOGY [address] [address] 07/31/2025 10:00 AM EDT Office Visit [facility] PULMONARY & CRITICAL CARE MEDICINE 3000 [facility] [address] [place] [address] Maxine Gibson, PARVIZ [address] [place] [address] documented as of this encounter Visit Diagnoses [...] documented as of this encounter Care Teams Cardiology Nurse Relationship Specialty Start Date End Date Reza Panchal MD [address] [address] PCP - General Family Medicine 09/30/24 documented as of this encounter
--- OUTSIDE RECORDS SUMMARY | 2025-05-26 12:23 | XMS_ITS | Clinical Summary ---
Author Organization [facility] Address [address] [place] [address] Care Team Providers Care Ginning Operator Name Role Phone Reza Panchal MD Primary Care Provider [phone]- [phone] Allergies Active Allergy Reactions Criticality Noted Date [...] g 12 05/14/20 25 Active nystatin (MYCOSTATIN) 520344 UNIT/GM powderIndications: Yeast dermatitis,Perinea l irritation in [...] - Therapy completed) neomycin-polymyxin -dexamethamethason e (POLYDEX) 3.5-25559-5.1 ointment ophthalmic ointment APPLY SMALL AMOUNT INSIDE [...] antibiotics to protect the rectal reservoir including fsve-dak-sujybyc yogurt preparations to judy oral pills containing [...] (05/14/2025 6:23 PM EDT): Orders: nystatin (MYCOSTATIN) [id number] UNIT/GM powder; Apply topically to the appropriate area as directed 3 (Three) Times a Day. POC Urinalysis Dipstick, Automated Perineal irritation in female 05/14/2025 Assessment & Plan (05/14/2025 6:23 PM EDT): Orders: nystatin (MYCOSTATIN) [id number] UNIT/GM powder; Apply topically to the appropriate [...] Angina pectoris 05/03/2019 Overview (12/31/2020): a. Remote [facility] -- data deficit: No reported disease. b. L ight CT with medical treatment. c. [facility], 05/12/2011, Dr. Mosley: Angiographically normal coronary [...] - 05/23/2025 11:59 PM EDT Hospital Encounter [facility] OUTPATIENT ONCOLOGY [address] [place] [id number] Rheumatoid arthritis involving multiple sites with positive rheumatoid factor (Primary Dx) Discharge Disposition: Home or Self Care 05/23/2025 Travel 05/16/2025 Results Follow-Up [facility] UROLOGY [address] [facility] [address] [place] [address] Sanam Saunders APRN 05/14/2025 2:30 PM EDT Office Visit [facility] UROLOGY [address] [facility] [address] [place] [address] Sanam Saunders, PARVIZ Infection due to 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 toxin-producing Escherichia coli (E.coli) (Primary Dx); Yeast vaginitis; Yeast dermatitis; Perineal irritation in female; Atrophic vaginitis 05/14/2025 Travel 05/14/2025 Telephone [facility] UROLOG[facility] [address] [place] [address] Sanam Saunders APRN 05/13/2025 Prior Authorization [facility] GASTROENTEROLOGY [address] [facility] [address] [place] [phone] Khadar Julien RMA VOQUENZA 10 MG PA REQUEST; APPROVAL 05/12/2025 Refill [facility] GASTROENTEROLOGY [address] [facility] [address] [place] [address] Palak Graham PA-C 05/08/2025 Telephone [facility] UR[facility] [address] [facility] [address] [place] [address] STARK - CLINICAL 05/07/2025 Results Follow-Up [facility] DIAGNOSTIC CENTER AT [address] [place] [address] Palak Garham PA-C 05/06/2025 12:15 PM EDT Lab [facility] DIAGNOSTIC CENTER AT [address] [place] [address] Esophageal dysphagia; Gastroesophageal reflux disease, unspecified whether esophagitis present 05/06/2025 10:30 AM EDT Office Visit [facility] GASTROENTEROLOGY [address] [facility] [address] [place] [address] Palak Graham PA-C Esophageal dysphagia (Primary Dx); Gastroesophageal reflux disease, unspecified whether esophagitis present; History of Araseli fundoplication; History of aspiration pneumonia 05/06/2025 Telephone [facility] GASTROENTEROLOGY [address] [facility] [address] [place] [address] Palak Graham PA-C 05/06/2025 Travel 04/29/2025 9:30 AM EDT Office Visit [facility] PULMONARY & CRITICAL CARE MEDICINE [address] [facility] [address] [place] [address] Maxine Gibson APRN Seasonal allergic rhinitis due to pollen (Primary Dx); Chronic cough; GERD without esophagitis; DEVANG (obstructive sleep apnea)/suspected nocturnal hypoxemia.-by history. Intolerant of NIPPV in past. 04/29/2025 Refill [facility] CARDIOLOGY [address] [facility] [address] [place] [address] Tristan Mosley MD Med Refill 04/29/2025 Travel 03/28/2025 12:35 PM EDT - 03/28/2025 11:59 PM EDT Hospital Encounter [facility] OUTPATIENT ONCOLOGY [address] [place] [address] Patrice Santana DO Rheumatoid arthritis involving multiple sites with positive rheumatoid factor (Primary Dx) Discharge Disposition: Home or Self Care 03/28/2025 Travel 03/27/2025 Telephone [facility] [address] [place] [address] Brennan Lee MD MED QUESTION 03/26/2025 10:10 AM EDT Office Visit [facility] UROLOGY [address] [place] [address] Brennan Lee MD OAB (overactive bladder) (Primary Dx); Urge incontinence; Lower urinary tract symptoms (LUTS) 03/26/2025 Travel 03/12/2025 9:20 AM EDT Office Visit [facility] UROLOGY [address] [facility] [address] [place] [address] Brennan Lee MD Erythema (Primary Dx) 03/12/2025 Travel 03/03/2025 Refill [facility] PRIMARY CARE [address] [place] [address] Huyen Hall MD from Last 3 Months [...] drink = 0.6 oz pur e alcohol) [facility] Utilities Answer Date Recorded In the past 12 months has [employer], gas, oil, or water [employer] threatened to shut off services in your [...] or training? Not on file Preferred Language Rwandan 01/28/2025 PHQ-2 Answer Date Recorded Retired PHQ-9: [...] Info) Description 06/03/2025 10:40 AM EDT Appointment [facility] DEXA YOEL [address] [place] [address] 06/05/2025 10:45 AM EDT Office Visit [facility] RHEUMATOLOGY 330 [facility] 100 [place] [address] John Sheppard APRN 330 [facility] 100 [place] [address] 06/13/2025 10:00 AM EDT Office Visit [facility] UROLOGY [address] [address] Sanam Saunders, PARVIZ 1760 [facility] [address] [place] [phone] 07/01/2025 11:00 AM EDT Office Visit [facility] UROLOGY [address] [address] Brennan Lee MD [address] [address] 07/16/2025 10:30 AM EDT Office Visit [facility] GASTROENTEROLOGY [address] [facility] [address] [place] [address] Palak Graham PAArnaldoC 1720 [facility] 302 [place], [place] [phone] 07/18/2025 11:30 AM EDT Appointment [facility] OUTPATIENT ONCOLOGY [address] [place] [address] 07/31/2025 10:00 AM EDT Office Visit [facility] PULMONARY & CRITICAL CARE MEDICINE [address] [facility] [address] [place] [address] Maxine Gibson, DAIRY NUTRITION CONSULTANT [address] [place] [address] Health Maintenance Due Date Last Done Comments COLOGUARD 2002 COLON CANCER SCREENING 5 YEA R SIGMOIDOSCOPY 2002 CT COLONOGRAPHY 2002 FIT Testing (1 year) 2002 URINE MICROALBUMIN-CREATININ E RATIO (uACR) 04/13/2022 04/13/2021, 04/07/2020, 07/16/2019 TDAP/TD VACCINES (2 - Td or Tdap) 04/24/2022 012 DIABETIC FOOT EXAM 01/05/2024 01/04/2023, 0 01/04/2023, 01/04/2023, Additional history exists [facility] PLAN OF CARE 02/07/2024 ANNUAL [...] day. Notes: Medical Devices Implanted Type Area Clay Processing Factory Worker Device Identifier Shelf Expiration Date Model / Serial / Lot Pk Imp Trial Basic Bilat W/Ext Neurostm/Pne Ld Imp Kt - [id number] Implanted:Qty: 1 on 02/04/2025 by Brennan Lee MD at [facility] Implant N/A: Back [employer] 07/15/2025 [id number] / / [id number] Ld Neurostm Sacral Pne - [id number] Implanted:Qty: 1 on 02/04/2025 by Brennan Lee MD at [facility] Implant Back [employer] 02/20/2027 1901 / / [id number] Neurostm Sacral/Nerv [employer] Nonrechg W/Torq Wrench - [id number] Implanted:Qty: 1 on 02/20/2025 by Brennan Lee MD at [facility] Implant N/A: Back [employer] 12/12/2025 [id number] / / [id number] Kt Ld Stim Tined [employer] W/2/Sty Str/Crv - [id number] Implanted:Qty: 1 on 02/20/2025 by Brennan Lee MD at [facility] Implant N/A: Back [employer] 02/27/2027 [id number] / / [id number] Procedures Procedure Name Priority Date/Time Associated Diagnosis [...] Color Yellow Yellow, Straw, Dark Yellow, Ann [facility] Clarity, UA Slightly Cloudy(A) Clear [facility] Specific Hardin 1.015 1.005 - 1.030 [facility] pH, Urine 6.0 5.0 - 8.0 [facility] Leukocytes Negative Negative [facility] Nitrite, UA Negative Negative [facility] Protein, POC Negative Negative mg/dL [facility] Glucose, UA 3+(A) Negative mg/dL [facility] Ketones, UA Negative Negative [facility] Urobilinogen, UA 0.2 E.U./dL Normal, 0.2 E.U./dL [facility] Bilirubin Negative Negative [facility] Blood, UA Negative Negative [facility] Lot Number [id number] [facility] Expiration Date 07/20/2026 [facility] Urine 05/14/2025 3:56 PM EDT Sanam Saunders APRN POINT OF CARE TEST ORDE RABLES Final Result [facility]
[address] [place] [address], * LABS SCANNED (05/14/2025) Sanam Saunders APRN LAB BLOOD ORDERABLES Fi nal Result * TSH Rfx On Abnormal To Free T4 (05/06/2025 12:01 PM EDT) [facility] TSH 2.680 0.270 - 4.200 uIU/mL 05/06/2025 7:29 PM EDT [facility] Blood Venipuncture / Unknown 05/06/2025 12:01 PM EDT 05/06/2025 12:01 PM EDT Palak Graham PA-C LAB BLOOD ORDERABLES Final Result [facility]
[address] [place] [address], * (ABNORMAL) CBC Auto Differential (05/06/2025 12:01 PM EDT) WBC 6.88 3.40 - 10.80 10*3/mm3 05/06/2025 6:48 PM EDT [facility] RBC 4.42 3.77 - 5.28 10*6/mm3 05/06/2025 6:48 PM EDT [facility] Hemoglobin 13.5 12.0 - 15.9 g/dL 05/06/2025 6:48 PM EDT [facility] Hematocrit 41.0 34.0 - 46.6 % 05/06/2025 6:48 PM EDT [facility] MCV 92.8 79.0 - 97.0 fL 05/06/2025 6:48 PM EDT [facility] MCH 30.5 26.6 - 33.0 pg 05/06/2025 6:48 PM EDT [facility] MCHC 32.9 31.5 - 35.7 g/dL 05/06/2025 6:48 PM EDT [facility] RDW 13.1 12.3 - 15.4 % 05/06/2025 6:48 PM EDT [facility] RDW-SD 44.8 37.0 - 54.0 fl 05/06/2025 6:48 PM EDT [facility] MPV 10.0 6.0 - 12.0 fL 05/06/2025 6:48 PM EDT [facility] Platelets 314 140 - 450 10*3/mm3 05/06/2025 6:48 PM EDT [facility] Neutrophil % 41.1(L) 42.7 - 76.0 % 05/06/2025 6:48 PM EDT [facility] Lymphocyte % 37.1 19.6 - 45.3 % 05/06/2025 6:48 PM EDT [facility] Monocyte % 14.8(H) 5.0 - 12.0 % 05/06/2025 6:48 PM EDT [facility] Eosinophil % 5.4 0.3 - 6.2 % 05/06/2025 6:48 PM EDT [facility] Basophil % 0.7 0.0 - 1.5 % 05/06/2025 6:48 PM EDT [facility] Immature Grans % 0.9(H) 0.0 - 0.5 % 05/06/2025 6:48 PM EDT [facility] Neutrophils, Absolute 2.83 1.70 - 7.00 10*3/mm3 05/06/2025 6:48 PM EDT [facility] Lymphocytes, Absolute 2.55 0.70 - 3.10 10*3/mm3 05/06/2025 6:48 PM EDT [facility] Monocytes, Absolute 1.02(H) 0.10 - 0.90 10*3/mm3 05/06/2025 6:48 PM EDT [facility] Eosinophils, Absolute 0.37 0.00 - 0.40 10*3/mm3 05/06/2025 6:48 PM EDT [facility] Basophils, Absolute 0.05 0.00 - 0.20 10*3/mm3 05/06/2025 6:48 PM EDT [facility] Immature Grans, Absolute 0.06(H) 0.00 - 0.05 10*3/mm3 05/06/2025 6:48 PM EDT [facility] nRBC 0.0 0.0 - 0.2 /100 WBC 05/06/2025 6:48 PM EDT [facility] Blood Venipuncture / Unknown 05/06/2025 12:01 PM EDT 05/06/2025 12:01 PM EDT us Palak Graham PA-C LAB BLOOD ORDERABLES Final Result [facility]
[address] [place] [address], * (ABNORMAL) Comprehensive Metabolic Panel (05/06/2025 12:01 PM EDT) [facility] Signature Glucose 150(H) 65 - 99 [...] EDT 05/06/2025 12:01 PM EDT [facility] - 05/06/2025 7:23 PM EDT GFR [...] [facility]
[address] [place] [address], * (ABNORMAL) POC Glycosylated Hemoglobin (Hb A1C) (04/15/2024 3:58 PM EDT) Hemoglobin A1C 5.6 4.5 - 5.7 % [facility] Lot Number [id number] [facility] Expiration Date 12/31/2025 [facility] Blood 04/15/2024 3:58 PM EDT Huyen Pal MD POINT OF CARE TEST ORDERABL ES Final Result [facility]
[address] [place] [address], * (ABNORMAL) Hepatitis Panel, Acute (04/12/2024 11:29 AM EDT) Pathologist [facility] Hepatitis B Surface Ag Non-Reacti ve Non-Reacti ve 04/13/2024 1:52 AM EDT [facility] Hep A IgM Reactive(A ) Non-Reacti ve 04/13/2024 1:52 AM EDT [facility] Hep B C IgM Non-Reacti ve Non-Reacti ve 04/13/2024 1:52 AM EDT [facility] Hepatitis C Ab Non-Reacti ve Non-Reacti ve 04/13/2024 1:52 AM EDT [facility] Blood Venipuncture / Unknown 04/12/2024 11:29 AM EDT 04/12/2024 11:32 AM EDT Narrative [facility] - 04/13/2024 1:52 AM EDT Results may be falsely decreased if patient taking Biotin. Patrice Santana DO LAB BLOOD ORDERABLES F inal Result [facility]
[address] [place] [address], * DEXA Scan (04/10/2024 12:14 PM EDT) Anatomical Region Laterality Modality Other Historical Provider MD PEDRAZA CHART REVIEW TABS Maira l Result * (ABNORMAL) Lipid Panel (02/21/2024 10:20 AM EDT) Total Cholesterol 143 0 - 200 mg/dL 02/21/2024 11:45 PM EDT [facility] Triglycerides 212(H) 0 - 150 mg/dL 02/21/2024 11:45 PM EDT [facility] HDL Cholesterol 37(L) 40 - 60 mg/dL 02/21/2024 11:45 PM EDT [facility] LDL Cholesterol 71 0 - 100 mg/dL 02/21/2024 11:45 PM EDT [facility] VLDL Cholesterol 35 5 - 40 mg/dL 02/21/2024 11:45 PM EDT [facility] LDL/HDL Ratio 1.72 02/21/2024 11:45 PM EDT [facility] Blood Structure of right upper limb / Unknown Venipuncture / Unknown 02/21/2024 10:20 AM EDT 02/21/2024 10:20 AM EDT Narrative [facility] - 02/21/2024 11:45 PM EDT [...] Pal MD LAB BLOOD ORDERABLES Final Result [facility]
[address] [place] [id number], * SCANNED - EYE EXAM (07/20/2023) Anatomical [...] secondary signs of malignancy. Huyen Pal MD [facility] MAMMOGRAPHY ORDERABLES Final Result * POCT occult blood x 1 stool (04/13/2023 11:32 AM EDT) Fecal Occult Blood Negative Negative [facility] Lot Number [id number] [facility] Expiration Date 11/15/2024 [facility] DEVELOPER LOT NUMBER [id number] [facility] DEVELOPER EXPIRATION DATE 02/12/2025 [facility] Positive Control Positive Positive [facility] Negative Control Negative Negative [facility] Stool 04/13/2023 11:3 2 AM EDT Huyen Pal MD POINT OF CARE TEST ORDERABL ES Final Result [facility]
[address] [place] [address], [place] [phone] * Microalbumin / Creatinine Urine Ratio - [...] 2:11 PM EDT 04/14/2021 Comment:[facility] I Narrative [facility] (AMBULATORY) - 04/14/2021 10:09 AM EDT Performed at: 01 - [address] [id number] Brigadier: Jean Stephens PhD, Phone: [phone] Huyen Pal MD URINE ORDERABLES Final Resu lt Performing Organization Address City/[facility]/ZIP Co de Phone Number [facility] (AMBULATORY) [address] [place], [place] [id number], [facility] [address] [place] [address], [place] [phone] * SCANNED - INFLUENZA (07/16/2019) Huyen Pal [...] Documents on File Type Date Recorded Patient Steaming Cabinet Tender Expl anation PATIENT ADVANCE DIRECTIVES - SCAN [...] Of Support Discussed With: Patient Care Teams Ginning Operator Relationship Specialty Start Date End Date Reza Panchal MD [address] [place] [address] PCP - General Family Medicine 09/30/24
--- OUTSIDE RECORDS SUMMARY | 2025-05-26 12:23 | XMS_ITS | Encounter Summary ---
Author Organization [facility] Address [address] [place] [address] Care Team Providers Care Chief Technical Officer Name Role Phone Reza Panchal MD Primary Care Provider +1- [phone] Reason for Visit * Reason Onset Date Comments Med Refill 04/29/2025 Encounter Details Date Type Department Care Team (Late st Contact Info) Description 04/29/2025 Refill [facility] CARDIOLOGY [address] [address] Tristan Mosley MD 1720 [facility] E [facility] [address] [place] [address] Med Refill Social History Tobacco Use Types Packs/Day Years Used Date Smoking Tobacco: Never Passive Smoke Exposure: Past Smokeless Tobacco: Never Comments: smokes, for 45 years Alcohol Use Standard Drinks/Week Comments No 0 (1 standard drink = 0.6 oz pur e alcohol) [facility] Utilities Answer Date Recorded In the past 12 months has [employer], gas, oil, or water company threatened [...] or training? Not on file Preferred Language Guinean 01/28/2025 PHQ-2 Answer Date Recorded Retired PHQ-9: [...] 10:40 AM EDT Appointment [facility] [address] [place] [address] 06/05/2025 10:45 AM EDT Office Visit [facility] RHEUMATOLOGY 330 [facility] 100 [place] [phone] John Sheppard, PARVIZ 330 [facility] 100 [place] [address] 06/13/2025 10:00 AM EDT Office Visit [facility] UROLOGY [address] [address] Sanam Saunders, RAILWAY TRACK PLANT OPERATOR 1760 [facility] [address] [place] [phone] 07/01/2025 11:00 AM EDT Office Visit [facility] UROLOGY [address] [address] Brennan Lee MD [address] [address] 07/16/2025 10:30 AM EDT Office Visit [facility] GASTROENTEROLOGY 1720 [facility] 302 [place] [phone] Palak Graham PA-C 1720 [facility] 302 [place] [address] 07/18/2025 11:30 AM EDT Appointment [facility] OUTPATIENT ONCOLOGY [address] [place] [address] 07/31/2025 10:00 AM EDT Office Visit [facility]ICAL [facility] PULMONARY & CRITICAL CARE MEDICINE [address] [facility] [address] [place] [address] Maxine Gibson, RAILWAY TRACK PLANT OPERATOR [address] [place] [address] documented as of this encounter Goals Goal [...] documented as of this encounter Care Teams Chief Technical Officer Relationship Specialty Start Date End Date Reza Panchal MD [address] [place] [address] PCP - General Family Medicine 09/30/24 documented as of this encounter
--- OUTSIDE RECORDS SUMMARY | 2025-05-26 12:23 | XMS_ITS | Encounter Summary ---
Author Organization [facility] Address [address] [place] [address] Care Team Providers Care Belt Conveyor Drier Name Role Phone eRza Panchal MD Primary Care Provider +1- [phone] Reason for Visit * Reason Onset Date Comments DR SANTILLAN - CLINICAL 05/08/2025 Encounter Details Date Type Department Care Team (Late st Contact Info) Description 05/08/2025 Telephone [facility] UROLOGY [address] [place] [address] Brennan Santillan MD [address] [place] [address] DR SANTILLAN - CLINICAL Social History Tobacco Use Types Packs/Day Years Used Date Smoking Tobacco: Never Passive Smoke Exposure: Past Smokeless Tobacco: Never Comments: smokes, for 45 years Alcohol Use Standard Drinks/Week Comments No 0 (1 standard drink = 0.6 oz pur e alcohol) [facility] Utilities Answer Date Recorded In the past 12 months has [employer], gas, oil, or water company threatened to [...] or training? Not on file Preferred Language Eritrean 01/28/2025 PHQ-2 Answer Date Recorded Retired PHQ-9: [...] for Call: PATIENT RECENTLY IN [facility] WITH SEPSIS DUE TO UTI. PATIENT REQUESTING A FU WITH DR SANTILLAN. UTI URINARY SYMPTOMS STARTED AGAIN YESTERDAY. PLEASE ADVISE ON SCHEDULING. REACH OUT TO ERICA [phone] When was the patient last seen: 03-26-25 HUB AGENT UNABLE TO WARM TRANSFER. PLEASE REACH OUT ANA CRISTINA documented in this encounter Plan of Treatment Upcoming Encounters Date Type Department Care Team (Late st Contact Info) Description 06/03/2025 10:40 AM EDT Appointment [address] [phone] 06/05/2025 10:45 AM EDT Office Visit [facility] RHEUMATOLOGY [address] [phone] John Sheppard, LITERACY EDUCATION PROFESSOR [address] [address] 06/13/2025 10:00 AM EDT Office Visit [facility] UROLOGY [address] [place] [address] Sanam Saunders, PARVIZ [address] [address] 07/01/2025 11:00 AM EDT Office Visit [facility] UROLOGY 1760 [facility] [address] [place] [address] Brennan Santillan MD 1760 [facility] [address] [place] [address] 07/16/2025 10:30 AM EDT Office Visit [facility] GASTROENTEROLOGY [address] [facility] [address] [place] [id number] Palak Graham PA-C 1720 [facility] [address] [place] [address] 07/18/2025 11:30 AM EDT Appointment [facility] OUTPATIENT ONCOLOGY [address] [phone] 07/31/2025 10:00 AM EDT Office Visit [facility] PULMONARY & CRITICAL CARE MEDICINE [address] [facility] [address] [place] [id number] Maxine Gibson, LITERACY EDUCATION PROFESSOR [address] [id number] documented as of this encounter Goals Goal [...] documented as of this encounter Care Teams Belt Conveyor Drier Relationship Specialty Start Date End Date Reza Panchal MD [address] [place] [address] PCP - General Family Medicine 09/30/24 documented as of this encounter
--- OUTSIDE RECORDS SUMMARY | 2025-05-26 12:23 | XMS_ITS | Clinical Summary ---
Author Organization [facility] Address [address] [facility] [address] [place] [address] Phone Care Team Providers Care Java Lead Name Role Phone Unavailable Unavailable Conditions or Problems No information available. Medications No information available. Medications Administered No information available. Allergies, Adverse Reactions, Alerts No information available. Results No information available. Plan of Care No information available. Procedures No information available. Vital Signs No information available. Immunizations No information available. Advance Directives No information available.
--- OUTSIDE RECORDS SUMMARY | 2025-05-26 12:23 | XMS_ITS | Encounter Summary ---
[facility] Organization [facility] Address [address] [place] [address] Care Team Providers Care Consultants Intern Name Role Phone Reza Panchal MD Primary Care Provider +1- [phone] Reason for Visit * Reason Onset Date Comments VOQUENZA 10 MG PA REQUEST 05/13/2025 APPROVAL 05/13/2025 Encounter Details Date Type Department Care Team (Latest Contact Info) Description 05/13/2025 Prior Authorization [facility] GASTROENTEROLOGY [address] [place] [phone] Khadar Julien RMA VOQUENZA 10 MG PA REQUEST; APPROVAL Social History Tobacco Use Types Packs/Day Years Used Date Smoking Tobacco: Never Passive Smoke Exposure: Past Smokeless Tobacco: Never Comments: smokes, for 45 years Alcohol Use Standard Drinks/Week Comments No 0 (1 standard drink = 0.6 oz pur e alcohol) [facility] Utilities Answer Date Recorded In the past 12 months has [employer] electric, gas, oil, or water company threatened [...] or training? Not on file Preferred Language Khmer 01/28/2025 PHQ-2 Answer Date Recorded Retired PHQ-9: [...] EDT Outcome Approved on May 13 by [facility] 2017 Your request has been [...] Call us at Outcome Approved today by [facility] 2017 Your request has been approved Effective Date: 10/16/2024 Authorization Expiration Date: 10/15/2025 * Telephone Encounter - Khadar Julien RMA - 05/13/2025 2:04 PM EDT (Grewal: [id number]) PA Need Help? Call us at Status sent iconSent to Plan today Drug Voquezna 10MG tablets ePA cloud logo Form [facility] Electronic PA Form (2016PD) documented in this encounter Plan of Treatment Upcoming Encounters Date Type Department Care Team (Late st Contact Info) Description 06/03/2025 10:40 AM EDT Appointment [address] [address] 06/05/2025 10:45 AM EDT Office Visit [facility] RHEUMATOLOGY 330 [facility] 100 [place] [address] John Sheppard APRN 330 [facility] 100 [place] [address] 06/13/2025 10:00 AM EDT Office Visit [facility] UROLOGY [address] [place] [address] [address] [place] [address] Sanam Saunders, PARVIZ [address]60 [facility] [address] [place] [address] 07/01/2025 11:00 AM EDT Office Visit [facility] UROLOGY 1760 [facility] 502 [place] [address] Brennan Lee MD 1760 [facility] [address] [place] [address] 07/16/2025 10:30 AM EDT Office Visit [facility] GASTROENTEROLOGY 1720 [facility] 302 [place] [address] Palak [place] PA-C 1720 [facility] 302 [place] [address] 07/18/2025 11:30 AM EDT Appointment [facility] OUTPATIENT ONCOLOGY [address] [place] [phone] 07/31/2025 10:00 AM EDT Office Visit [facility] PULMONARY & CRITICAL CARE MEDICINE 3000 [facility] [address] [place] [phone] Maxine Gibson, AIRPORT MAINTENANCE CHIEF 2400 [place] [address] documented as of this encounter Goals Goal [...] documented as of this encounter Care Teams Consultants Intern Relationship Specialty Start Date End Date Reza Panchal MD [facility] [place] [address] PCP - General Family Medicine 09/30/24 documented as of this encounter
--- OUTSIDE RECORDS SUMMARY | 2025-05-26 12:23 | XMS_ITS | Encounter Summary ---
Author Organization [facility] Address [address] [place] [address] Care Team Providers Care Senior Power Scheduler Name Role Phone Reza Panchal MD Primary Care Provider +1- [phone] Reason for Visit * Reason Comments Med Refill Encounter Details Date Type Department Care Team (Late st Contact Info) Description 02/24/2023 Refill [facility] PRIMARY CARE [address] [address] Huyen Hall MD [address] [address] Type 2 diabetes mellitus with hyperglycemia, without [...] 06/03/2025 10:40 AM EDT Appointment [facility] [address] [place] [phone] 06/05/2025 10:45 AM EDT Office Visit [facility] RHEUMATOLOGY [address] [address] John Sheppard, ASSOCIATE [employer]ACLE [employer]AIL [address] [address] 06/13/2025 10:00 AM EDT Office Visit [facility] UROLOGY [address] [address] Sanam Saunders, ASSOCIATE ORACLE RETAIL 1760 [facility] [address] [place] [address] 07/01/2025 11:00 AM EDT Office Visit [facility] UROLOGY 1760 [facility] [address] [place] [address] Brennan Lee MD 1760 [facility] [address] [place] [address] 07/16/2025 10:30 AM EDT Office Visit [facility] GASTROENTEROLOGY 1720 [facility] 302 [place] [address] Palak [place] PA-C 1720 [facility] [address] [place] [address] 07/18/2025 11:30 AM EDT Appointment [facility] OUTPATIENT ONCOLOGY 1740 [place] [address] 07/31/2025 10:00 AM EDT Office Visit [facility] PULMONARY & CRITICAL CARE MEDICINE 3000 [facility] [place] [place] [address] Maxine Gibson, ASSOCIATE [employer]LE [employer] 2400 [place] [address] documented as of this encounter Visit Diagnoses [...] as of this encounter Care Teams Senior Power Scheduler Relationship Specialty Start Date End Date Reza Panchal MD [facility] [place] [address] PCP - General Family Medicine 09/30/24 documented as of this encounter
--- OUTSIDE RECORDS SUMMARY | 2025-05-26 12:23 | XMS_ITS | Encounter Summary ---
Author Organization [facility] Address [address] [place] [address] Care Team Providers Care Lsw Name Role Phone Reza Panchal MD Primary Care Provider +1- [phone] Encounter Details Date Type Department Care Team [...] Description 06/03/2025 10:40 AM EDT Appointment [facility] [address] [place] [address] 06/05/2025 10:45 AM EDT Office Visit [facility] RHEUMATOLOGY 330 [facility] 100 [place] [phone] John Sheppard, ROLL PICKER 330 [facility] 100 [place] [address] 06/13/2025 10:00 AM EDT Office [facility] UROLOGY 1760 [facility] 502 [place] [address] Sanam Saunders, ROLL PICKER 1760 [facility] [address] [place] [address] 07/01/2025 11:00 AM EDT Office [facility] UROLOGY 1760 [facility] 502 [place] [address] Brennan Lee MD 1760 [facility] 502 [place] [address] 07/16/2025 10:30 AM EDT Office Visit [facility] GASTROENTEROLOGY 1720 [facility] 302 [place] [address] Palak [place] PADelano 1720 [facility] [address] [place] [address] 07/18/2025 11:30 AM EDT Appointment [facility] OUTPATIENT ONCOLOGY 1740 [place] [address] 07/31/2025 10:00 AM EDT Office Visit [facility] PULMONARY & CRITICAL CARE MEDICINE 3000 [facility] 240 [place] [phone] Maxine Gibson, ROLL PICKER [address] [place] [address] documented as of this encounter Goals Goal [...] documented as of this encounter Care Teams Lsw Relationship Specialty Start Date End Date Reza Panchal MD [address] [phone] PCP - General Family Medicine 09/30/24 documented as of this encounter
--- OUTSIDE RECORDS SUMMARY | 2025-05-26 12:23 | XMS_ITS | Encounter Summary ---
[facility] Organization [facility] Address [address] [place] [address] Care Team Providers Care Cleaning Matron Name Role Phone Reza Panchal MD Primary Care Provider +1- [phone] Reason for Visit * Reason Onset Date Comments MED QUESTION 03/27/2025 Encounter Details Date Type Department Care Team (Late st Contact Info) Description 03/27/2025 Telephone [facility] UROLOGY 1760 [place] [address] Brennan Santillan MD 1760 [place] [address] MED QUESTION Social History Tobacco Use Types Packs/Day Years Used Date Smoking Tobacco: Never Passive Smoke Exposure: Past Smokeless Tobacco: Never Comments: smokes, for 45 years Alcohol Use Standard Drinks/Week Comments No 0 (1 standard drink = 0.6 oz pur e alcohol) [facility] Utilities Answer Date Recorded In the past 12 months has [employer]), gas, oil, or water company threatened to [...] or training? Not on file Preferred Language Kittitian 01/28/2025 PHQ-2 Answer Date Recorded Retired PHQ-9: [...] Relationship: GRAND DAUGHTER Best call back number: [phone] What is the best time to reach [...] it okay if the provider responds through [employer]: YES documented in this encounter Plan of Treatment Upcoming Encounters Date Type Department Care Team (Late st Contact Info) Description 06/03/2025 10:40 AM EDT Appointment [address] [address] 06/05/2025 10:45 AM EDT Office Visit [facility] RHEUMATOLOGY 330 [place] [address] [place] [phone] John Sheppard, CLOUD CONSULTANT 330 [facility] 100 [place] [address] 06/13/2025 10:00 AM EDT Office Visit [facility] UROLOGY 1760 [facility] 502 [place] [address] Sanam Saunders, CLOUD CONSULTANT 1760 [facility] [address] [place] [address] 07/01/2025 11:00 AM EDT Office Visit [facility] UROLOGY 1760 [facility] 502 [place] [address] Brennan Santillan MD 1760 [facility] 502 [place] [address] 07/16/2025 10:30 AM EDT Office Visit [facility] GASTROENTEROLOGY 1720 [facility] 302 [place] [phone] Palak [place] PA-C 1720 [facility] 302 [place] [address] 07/18/2025 11:30 AM EDT Appointment [facility] OUTPATIENT ONCOLOGY 1740 [place] [phone] 07/31/2025 10:00 AM EDT Office Visit [facility] PULMONARY & CRITICAL CARE MEDICINE 3000 [facility] 240 [place] [address] Maxine [place], PARVIZ 2400 [place] [address] documented as of this encounter Goals Goal [...] documented as of this encounter Care Teams Cleaning Matron Relationship Specialty Start Date End Date Reza Panchal MD [address] [place] [address] PCP - General Family Medicine 09/30/24 documented as of this encounter
--- OUTSIDE RECORDS SUMMARY | 2025-05-26 12:23 | XMS_ITS | Encounter Summary ---
Author Organization [facility] Address [address] [place] [address] Care Team Providers Care Creel Clerk Name Role Phone Reza Panchal MD Primary Care Provider +1- [phone] Encounter Details Date Type Department Care Team (Latest Contact Info) Description 05/06/2025 Travel Social History Tobacco Use Types Packs/Day Years Used Date Smoking Tobacco: Never Passive Smoke Exposure: Past Smokeless Tobacco: Never Comments: smokes, for 45 years Alcohol Use Standard Drinks/Week Comments No 0 (1 standard drink = 0.6 oz pur e alcohol) [facility] Utilities Answer Date Recorded In the [...] AM EDT Appointment [facility] [address] [place] [address] 06/05/2025 10:45 AM EDT Office Visit [facility] RHEUMATOLOGY 330 [place] 100 [place] [phone] John Sheppard, MANAGER DATA 330 [facility] 100 [place] [address] 06/13/2025 10:00 AM EDT Office Visit [facility] UROLOGY 1760 [facility] 502 [place] [address] Sanam Saunders, MANAGER DATA 1760 [facility] [address] [place] [address] 07/01/2025 11:00 AM EDT Office Visit [facility] UROLOGY 1760 [facility] 502 [place] [address] Brennan Lee MD 1760 [facility] 502 [place] [address] 07/16/2025 10:30 AM EDT Office Visit [facility] GASTROENTEROLOGY 1720 [facility] 302 [place] [address] Palak [place] PADelano 1720 [facility] [address] [place] [address] 07/18/2025 11:30 AM EDT Appointment [facility] OUTPATIENT ONCOLOGY 1740 [place] [address] 07/31/2025 10:00 AM EDT Office Visit [facility] PULMONARY & CRITICAL CARE MEDICINE 3000 [facility] 240 [place] [address] Maxine [place], MANAGER DATA [address] [place] [address] documented as of this encounter Goals Goal [...] documented as of this encounter Care Teams Creel Clerk Relationship Specialty Start Date End Date Reza Panchal MD [address] [phone] PCP - General Family Medicine 09/30/24 documented as of this encounter
--- OUTSIDE RECORDS SUMMARY | 2025-05-26 12:23 | XMS_ITS | Encounter Summary ---
[facility] Organization [facility] Address [address] [place] [address] Care Team Providers Care Indirect Fire Infantryman Name Role Phone Reza Panchal MD Primary Care Provider +1- [phone] Reason for Visit * Reason Onset Date Comments Med Refill 05/12/2025 Encounter Details Date Type Department Care Team (Late st Contact Info) Description 05/12/2025 Refill [facility] GASTROENTEROLOGY [address] [address] Palak [place] PA-C 1720 [facility] [address] [place] [address] Social History Tobacco Use Types Packs/Day Years Used Date Smoking Tobacco: Never Passive Smoke Exposure: Past Smokeless Tobacco: Never Comments: smokes, for 45 years Alcohol Use Standard Drinks/Week Comments No 0 (1 standard drink = 0.6 oz pur e alcohol) [facility] Utilities Answer Date Recorded In the past 12 months has [employer] electric, gas, oil, or water company threatened [...] or training? Not on file Preferred Language Tajik 01/28/2025 PHQ-2 Answer Date Recorded Retired PHQ-9: [...] Info) Description 06/03/2025 10:40 AM EDT Appointment [facility] 3084 [place] [address] 06/05/2025 10:45 AM EDT Office Visit [facility] RHEUMATOLOGY 330 [facility] 100 [place] [address] John Sheppard, PARVIZ 330 [facility] 100 [place] [address] 06/13/2025 10:00 AM EDT Office Visit [facility] UROLOGY [address] [address] Sanam Saunders, SYRUP FILTERER 1760 [facility] [address] [place] [id number] 07/01/2025 11:00 AM EDT Office Visit [facility] UROLOGY [address] [address] Brennan Lee MD [address] [address] 07/16/2025 10:30 AM EDT Office Visit [facility] GASTROENTEROLOGY 1720 [facility] 302 [place] [phone] Palak [place] PA-C 1720 [facility] 302 [place] [address] 07/18/2025 11:30 AM EDT Appointment [facility] OUTPATIENT ONCOLOGY [address] [place] [address] 07/31/2025 10:00 AM EDT Office Visit [facility] PULMONARY & CRITICAL CARE MEDICINE [address] [facility] [address] [place] [address] Maxine [place], SYRUP FILTERER [address] [place] [address] documented as of this encounter Goals Goal [...] documented as of this encounter Care Teams Indirect Fire Infantryman Relationship Specialty Start Date End Date Reza Panchal MD [address] [place] [address] PCP - General Family Medicine 09/30/24 documented as of this encounter
--- OUTSIDE RECORDS SUMMARY | 2025-05-26 12:23 | XMS_ITS | Encounter Summary ---
Author Organization [facility] Address [address] [place] [address] Care Team Providers Care Family Support Coordinator Name Role Phone Reza Panchal MD Primary Care Provider +1- [phone] Encounter Details Date Type Department Care Team (Late st Contact Info) Description 05/06/2025 Telephone [facility] GASTROENTEROLOGY [address] [address] Robert [place], PAArnaldoC 1720 [facility] [address] [place] [address] Social History Tobacco Use Types Packs/Day Years Used Date Smoking Tobacco: Never Passive Smoke Exposure: Past Smokeless Tobacco: Never Comments: smokes, for 45 years Alcohol Use Standard Drinks/Week Comments No 0 (1 standard drink = 0.6 oz pur e alcohol) [facility] Utilities Answer Date Recorded In the past 12 months has [employer] electric, gas, oil, or water company threatened [...] Info) Description 06/03/2025 10:40 AM EDT Appointment [address] [address] 06/05/2025 10:45 AM EDT Office Visit [facility] RHEUMATOLOGY 330 [facility] 100 [place] [address] John Sheppard, PARVIZ [address] [address] 06/13/2025 10:00 AM EDT Office Visit [facility] UROLOGY [address] [address] Sanam Saunders, MANAGER COSTING 1760 [facility] [address] [place] [address] 07/01/2025 11:00 AM EDT Office Visit [facility] UROLOGY [address] [address] Brennan Lee MD [address] [address] 07/16/2025 10:30 AM EDT Office Visit [facility] GASTROENTEROLOGY 1720 [facility] [address] [address] [place] [address] Robert [place] PA-C [address] [place] [address] [place] [address] 07/18/2025 11:30 AM EDT Appointment [facility] OUTPATIENT ONCOLOGY [address] [place] [address] 07/31/2025 10:00 AM EDT Office Visit [facility] PULMONARY & CRITICAL CARE MEDICINE 3000 [facility] [address] [place] [address] Maxine [place], MANAGER COSTING 2400 [place] [address] documented as of this encounter Goals Goal [...] documented as of this encounter Care Teams Family Support Coordinator Relationship Specialty Start Date End Date Reza Panchal MD [facility] [place] [address] PCP - General Family Medicine 09/30/24 documented as of this encounter
--- OUTSIDE RECORDS SUMMARY | 2025-05-26 12:23 | XMS_ITS | Encounter Summary ---
Author Organization [facility] Address [address] [place] [address] Care Team Providers Care Lead Handler Name Role Phone Reza Panchal MD Primary Care Provider +1- [phone] Encounter Details Date Type Department Care Team (Latest Contact Info) Description 05/14/2025 Travel Social History Tobacco Use Types Packs/Day Years Used Date Smoking Tobacco: Never Passive Smoke Exposure: Past Smokeless Tobacco: Never Comments: smokes, for 45 years Alcohol Use Standard Drinks/Week Comments No 0 (1 standard drink = 0.6 oz pur e alcohol) [facility] Utilities Answer Date Recorded In [...] [facility] [address] [place] [address] 06/05/2025 10:45 AM EDT Office Visit [facility] RHEUMATOLOGY 330 [facility] 100 [place] [phone] John Sheppard, PIPE LINER 330 [facility] 100 [place] [address] 06/13/2025 10:00 AM EDT Office Visit [facility] UROLOGY 1760 [facility] 502 [place] [address] Sanam Saunders, PIPE LINER 1760 [facility] [address] [place] [address] 07/01/2025 11:00 AM EDT Office Visit [facility] UROLOGY 1760 [facility] 502 [place] [address] Brennan Lee MD 1760 [facility] 502 [place] [address] 07/16/2025 10:30 AM EDT Office Visit [facility] GASTROENTEROLOGY 1720 [facility] 302 [place] [address] Palak [place] PADelano 1720 [facility] [address] [place] [address] 07/18/2025 11:30 AM EDT Appointment [facility] 1740 [place] [address] 07/31/2025 10:00 AM EDT Office Visit [facility] PULMONARY & CRITICAL CARE MEDICINE 3000 [facility] 240 [place] [address] Maxine [place], PIPE LINER [address] [place] [address] documented as of this encounter Goals Goal [...] as of this encounter Care Teams Lead Handler Relationship Specialty Start Date End Date Reza Panchal MD [address] [phone] PCP - General Family Medicine 09/30/24 documented as of this encounter
--- OUTSIDE RECORDS SUMMARY | 2025-05-26 12:23 | XMS_ITS | Encounter Summary ---
[facility] Address [address] [place] [id number] Care Team Providers Care Commercial Horticulture Instructor Name Role Phone Reza Panchal MD Primary Care Provider +1- [phone] Encounter Details Date Type Department Care Team (Late st Contact Info) Description 05/16/2025 Results Follow-Up [facility] UROLOGY 3000 [facility] 340 [place] [address] Sanam Saunders APRN 1760 [place] [address] Social History Tobacco Use Types Packs/Day Years Used Date Smoking Tobacco: Never Passive Smoke Exposure: Past Smokeless Tobacco: Never Comments: smokes, for 45 years Alcohol Use Standard Drinks/Week Comments No 0 (1 standard drink = 0.6 oz pur e alcohol) [facility] Utilities Answer Date Recorded In the past 12 months has [employer], gas, oil, or water company threatened [...] Info) Description 06/03/2025 10:40 AM EDT Appointment [facility] YOEL 3084 [place] [address] 06/05/2025 10:45 AM EDT Office Visit [facility] RHEUMATOLOGY 330 [facility] 100 [place] [address] John Sheppard, PARVIZ 330 [facility] 100 [place] [address] 06/13/2025 10:00 AM EDT Office Visit [facility] UROLOGY 1760 [facility] 502 [place] [address] Sanam Saunders, DIRECTOR LEARNING 1760 [facility] [address] [place], [place] [address] 07/01/2025 11:00 AM EDT Office Visit [facility] UROLOGY [address] [address] Brennan Lee MD 1760 [facility] 502 [place] [address] 07/16/2025 10:30 AM EDT Office Visit [facility] GASTROENTEROLOGY 1720 [facility] 302 [place] [address] Palak Graham PA-C 1720 [facility] [address] [place] [address] 07/18/2025 11:30 AM EDT Appointment [facility] OUTPATIENT ONCOLOGY [address] [place] [address] 07/31/2025 10:00 AM EDT Office Visit [facility] PULMONARY & CRITICAL CARE MEDICINE [address] [facility] [address] [place] [address] [place] [address] Leigh Gibsonlanjuan Fontaine, DIRECTOR LEARNING [address] [place] [id number] documented as of this encounter Goals Goal [...] documented as of this encounter Care Teams Commercial Horticulture Instructor Relationship Specialty Start Date End Date Reza Panchal MD [address] [place] [address] PCP - General Family Medicine 09/30/24 documented as of this encounter
--- OUTSIDE RECORDS SUMMARY | 2025-05-26 12:24 | XMS_ITS | Encounter Summary ---
[facility] Address [address] [place] [address] Care Team Providers Care Organ Pipe Voicer Name Role Phone Reza Panchal MD Primary Care Provider +1- [phone] Reason for Visit * Reason Comments Med Refill Encounter Details Date Type Department Care Team (Late st Contact Info) Description 07/03/2023 Refill [facility]IMARY [facility] [address] [address] Huyen Hall MD [address] [address] Reactive depression; Type 2 diabetes mellitus with [...] EDT Appointment [facility] DIALLO [address] [place] [address] 06/05/2025 10:45 AM EDT Office Visit [facility] RHEUMATOLOGY [address] [address] John Sheppard, TRENCHER DRIVER [address] [address] 06/13/2025 10:00 AM EDT Office Visit [facility] UROLOGY 1760 [facility] 502 [place] [address] Sanam Saunders, TRENCHER DRIVER 1760 [facility] [address] [place] [address] 07/01/2025 11:00 AM EDT Office Visit [facility] UROLOGY 1760 [facility] [address] [place] [address] Brennan Lee MD 1760 [facility] [address] [place] [address] 07/16/2025 10:30 AM EDT Office Visit [facility] GASTROENTEROLOGY 1720 [facility] [address] [place] [address] Palak Graham PA-C 1720 [facility] [address] [place] [address] 07/18/2025 11:30 AM EDT Appointment [facility] OUTPATIENT ONCOLOGY 1740 [place] [phone] 07/31/2025 10:00 AM EDT Office Visit [facility] PULMONARY & CRITICAL CARE MEDICINE 3000 [facility] 240 [place] [address] Maxine Gibson, TRENCHER DRIVER 2400 [place] [address] documented as of this encounter Visit Diagnoses [...] documented as of this encounter Care Teams Organ Pipe Voicer Relationship Specialty Start Date End Date Reza Panchal MD [facility] [place] [address] PCP - General Family Medicine 09/30/24 documented as of this encounter
--- OUTSIDE RECORDS SUMMARY | 2025-05-26 12:24 | XMS_ITS | Encounter Summary ---
[facility] Address [address] [place] [address] Care Team Providers Care Snowmaker Name Role Phone Reza Panchal MD Primary Care Provider +1- [phone] Reason for Visit * Reason Comments Med Refill Encounter Details Date Type Department Care Team (Late st Contact Info) Description 03/22/2024 Refill [facility] [address] [address] Huyen Hall MD [address] [address] Acquired hypothyroidism Social History Tobacco Use Types Packs/Day Years Used Date Smoking Tobacco: Never Smokeless Tobacco: Never Comments: smokes, for 45 years Alcohol Use Standard Drinks/Week Comments No 0 (1 standard drink = 0.6 oz pur e alcohol) [facility] Utilities Answer Date Recorded In the past 12 months has [employer] electric, gas, oil, or water company threatened [...] training? Not on file Preferred Language Panamanian 01/11/2024 PHQ-2 Answer Date Recorded Retired PHQ-9: [...] Info) Description 06/03/2025 10:40 AM EDT Appointment [facility] YOEL 3084 [place] [address] 06/05/2025 10:45 AM EDT Office Visit [facility] RHEUMATOLOGY 330 [facility] 100 [place] [address] John Sheppard, PARVIZ 330 [facility] 100 [place] [address] 06/13/2025 10:00 AM EDT Office Visit [facility] UROLOGY 1760 [facility] 502 [place] [address] Sanam Saunders, GLASS ENAMEL MIXER 1760 [facility] [address] [place], [place] [address] 07/01/2025 11:00 AM EDT Office Visit [facility] UROLOGY [address] [address] Brennan Lee MD 1760 [facility] 502 [place] [address] 07/16/2025 10:30 AM EDT Office Visit [facility] GASTROENTEROLOGY 1720 [facility] 302 [place] [address] Palak Graham PA-C 1720 [facility] [address] [place] [address] 07/18/2025 11:30 AM EDT Appointment [facility] OUTPATIENT ONCOLOGY [address] [place] [address] 07/31/2025 10:00 AM EDT Office Visit [facility] PULMONARY & CRITICAL CARE MEDICINE [address] [facility] [address] [place] [address] Arthur Maxine L, GLASS ENAMEL MIXER [address] [place] [address] documented as of this encounter Goals Goal [...] documented as of this encounter Care Teams Snowmaker Relationship Specialty Start Date End Date Reza Panchal MD [address] [place] [address] PCP - General Family Medicine 09/30/24 documented as of this encounter
--- OUTSIDE RECORDS SUMMARY | 2025-05-26 12:24 | XMS_ITS | Encounter Summary ---
Author Organization [facility] Address [address] [place] [address] Care Team Providers Care Rn Residential Name Role Phone Reza Panchal MD Primary Care Provider +1- [phone] Reason for Visit * Reason Comments Med Refill Encounter Details Date Type Department Care Team (Late st Contact Info) Description 02/12/2021 Refill [facility] PRIMARY CARE [address] [address] Huyen Hall MD 2039 [facility] 100 [place] [address] Gastroesophageal reflux disease, unspecified whether esophagitis present [...] Description 06/03/2025 10:40 AM EDT Appointment [address] [phone] 06/05/2025 10:45 AM EDT Office Visit [facility] RHEUMATOLOGY [address] [phone] John Sheppard, ACCOUNT RELATIONSHIP MANAGER [address] [address] 06/13/2025 10:00 AM EDT Office Visit [facility] UROLOGY [address] [address] Sanam Saunders, ACCOUNT RELATIONSHIP MANAGER 1760 [facility] [address] [place] [address] 07/01/2025 11:00 AM EDT Office Visit [facility] UROLOGY 1760 [facility] 502 [place] [address] Brennan Lee MD 1760 [facility] 502 [place] [address] 07/16/2025 10:30 AM EDT Office Visit [facility] GASTROENTEROLOGY 1720 [facility] [address]STA [address] [place] [address] Palak Graham PA-C [address] [place] [address] 07/18/2025 11:30 AM EDT Appointment [facility] OUTPATIENT ONCOLOGY 1740 [place] [address] 07/31/2025 10:00 AM EDT Office Visit [facility] PULMONARY & CRITICAL CARE MEDICINE 3000 [facility] 240 [place] [address] Maxine Gibson, ACCOUNT RELATIONSHIP MANAGER [address] [place] [address] documented as of this encounter Visit Diagnoses [...] as of this encounter Care Teams Rn Residential Relationship Specialty Start Date End Date Reza Panchal MD [address] [place] [address] PCP - General Family Medicine 09/30/24 documented as of this encounter
--- OUTSIDE RECORDS SUMMARY | 2025-05-26 12:24 | XMS_ITS | Encounter Summary ---
Author Organization [facility] Address [address] [place] [address] Care Team Providers Care Pasteurizing Machine Operator Name Role Phone Reza Panchal MD Primary Care Provider +1- [phone] Encounter Details Date Type Department Care Team (Late st Contact Info) Description 01/15/2025 Results Follow-Up [facility] RHEUMATOLOGY [address] [address] Patrice Santana DO 330 [place] [phone] Social History Tobacco Use Types Packs/Day Years Used Date Smoking Tobacco: Never Passive Smoke Exposure: Past Smokeless Tobacco: Never Comments: smokes, for 45 years Alcohol Use Standard Drinks/Week Comments No 0 (1 standard drink = 0.6 oz pur e alcohol) [facility] Utilities Answer Date Recorded In the past 12 months has [employer], gas, oil, or water [employer] threatened to shut off services in your [...] or training? Not on file Preferred Language Italian 05/28/2024 PHQ-2 Answer Date Recorded Retired PHQ-9: [...] Info) Description 06/03/2025 10:40 AM EDT Appointment [facility] DEXA YOEL 30[address] [place] [address] 06/05/2025 10:45 AM EDT Office Visit [facility] RHEUMATOLOGY 330 [facility] 100 [place] [address] John Sheppard, RADIO COMMUNICATION COORDINATOR 330 [facility] 100 [place] [address] 06/13/2025 10:00 AM EDT Office Visit [facility] UROLOGY [address] [address] Sanam Saunders, RADIO COMMUNICATION COORDINATOR 1760 [facility] [address] [place] [address] 07/01/2025 11:00 AM EDT Office Visit [facility] UROLOGY 1760 [facility] 502 [place] [address] Brennan Lee MD [address] [address] 07/16/2025 10:30 AM EDT Office Visit [facility] GASTROENTEROLOGY 1720 [facility] 302 [place] [address] Palak Graham PA-C 1720 [facility] [address] [place] [address] 07/18/2025 11:30 AM EDT Appointment [facility] OUTPATIENT ONCOLOGY [address] [place] [address] 07/31/2025 10:00 AM EDT Office Visit [facility] PULMONARY & CRITICAL CARE MEDICINE [address] [facility] [address] [place] [address] Maxine Gibosn, RADIO COMMUNICATION COORDINATOR [address] [place] [address] documented as of this encounter Goals Goal [...] documented as of this encounter Care Teams Pasteurizing Machine Operator Relationship Specialty Start Date End Date Reza Panchal MD [address] [place] [address] PCP - General Family Medicine 09/30/24 documented as of this encounter
--- OUTSIDE RECORDS SUMMARY | 2025-05-26 12:24 | XMS_ITS | Encounter Summary ---
Author Organization [facility] Address [address] [place] [address] Care Team Providers Care Cattle Dipper Name Role Phone Reza Panchal MD Primary Care Provider +1- [phone] Encounter Details Date Type Department Care Team (Late st Contact Info) Description 05/07/2025 Results Follow-Up [facility]STIC [facility] AT [address] [place] [address] Robert Graham, PA-C 1720 [facility] [address] [place] [address] Social History Tobacco Use Types Packs/Day Years Used Date Smoking Tobacco: Never Passive Smoke Exposure: Past Smokeless Tobacco: Never Comments: smokes, for 45 years Alcohol Use Standard Drinks/Week Comments No 0 (1 standard drink = 0.6 oz pur e alcohol) [facility] Utilities Answer Date Recorded In the past 12 months has [employer] electric, gas, oil, or water company threatened [...] 05/07/2025 8:36 AM EDT Results sent via [employer]. documented in this encounter Plan of Treatment Upcoming Encounters Date Type Department Care Team (Late st Contact Info) Description 06/03/2025 10:40 AM EDT Appointment [facility] DIALLO 30[address] [place] [address] 06/05/2025 10:45 AM EDT Office Visit [facility] RHEUMATOLOGY [address] [address] John Sheppard APRN [address] [place] [address] 06/13/2025 10:00 AM EDT Office Visit [facility] UROLOGY 1760 [facility] 502 [place] [address] Sanam Saunders APRN 1760 [facility] [address] [place], [place] [address] 07/01/2025 11:00 AM EDT Office Visit [facility] UROLOGY 1760 [facility] 502 [place] [address] Brennan Lee MD 1760 [facility] 502 [place] [address] 07/16/2025 10:30 AM EDT Office Visit [facility] GASTROENTEROLOGY 1720 [facility] 302 [place] [address] Robert Graham PAArnaldoC 1720 [facility] 302 [place] [address] 07/18/2025 11:30 AM EDT Appointment [facility] OUTPATIENT ONCOLOGY 1740 [place] [address] 07/31/2025 10:00 AM EDT Office Visit [facility] PULMONARY & CRITICAL CARE MEDICINE 3000 [facility] 240 [place] [address] Maxine Gibson, LEARNING MANAGER [address] [place] [address] documented as of this encounter Goals Goal [...] and Manage My Symptoms Patient Goals No Nathlaia Phelan RN Note: Follow Up Date - [...] documented as of this encounter Care Teams Cattle Dipper Relationship Specialty Start Date End Date Reza Panchal MD [facility] [place] [address] PCP - General Family Medicine 09/30/24 documented as of this encounter
--- OUTSIDE RECORDS SUMMARY | 2025-05-26 12:24 | XMS_ITS | Encounter Summary ---
Author Organization Healthcare Address [address] [place] [address] Care Team Providers Care Store Detective Name Role Phone Reza Panchal MD Primary Care Provider +1- [phone] Encounter Details Date Type Department Care Team (Late st Contact Info) Description 08/17/2024 Ophth Exam [facility] Pediatric[facility] [address] [place] [address] Tian Ramírez MD [address] [place] [address] Social History Tobacco Use Types Packs/Day [...] on filedocumented in this encounter Care Teams Store Detective Relationship Specialty Start Date End Date Reza Panchal MD [address] [place] [address] PCP - General 08/17/24 documented as of this encounter
--- OUTSIDE RECORDS SUMMARY | 2025-05-26 12:24 | XMS_ITS | Encounter Summary ---
Author Organization [facility] Address [address] [place] [address] Care Team Providers Care Patternmaker Metal Bench Name Role Phone Reza Panchal MD Primary Care Provider +1- [phone] Encounter Details Date Type Department Care Team (Latest Contact Info) Description 05/23/2025 Travel Social History Tobacco Use Types Packs/Day Years Used Date Smoking Tobacco: Never Passive Smoke Exposure: Past Smokeless Tobacco: Never Comments: smokes, for 45 years Alcohol Use Standard Drinks/Week Comments No 0 (1 standard drink = 0.6 oz pur e alcohol) [facility] Utilities Answer Date Recorded In [...] or training? Not on file Preferred Language Tunisian 01/28/2025 PHQ-2 Answer Date Recorded Retired PHQ-9: [...] Info) Description 06/03/2025 10:40 AM EDT Appointment [facility] DEXA YOEL [address] [place] [address] 06/05/2025 10:45 AM EDT Office Visit [facility] RHEUMATOLOGY 330 [facility] 100 [place] [address] John Sheppard, WOOD CARVER [address] [facility] 100 [place] [address] 06/13/2025 10:00 AM EDT Office Visit [facility] UROLOGY 1760 [facility] 502 [place] [address] Sanam Saunders, WOOD CARVER 1760 [facility] [address] [place] [address] 07/01/2025 11:00 AM EDT Office Visit [facility] UROLOGY 1760 [facility] 502 [place] [address] Brennan Lee MD 1760 [facility] 502 [place] [address] 07/16/2025 10:30 AM EDT Office Visit [facility] GASTROENTEROLOGY 1720 [facility] 302 [place] [address] Palak Graham PADelano 1720 [facility] [address] [place] [address] 07/18/2025 11:30 AM EDT Appointment [facility] OUTPATIENT ONCOLOGY 1740 [place] [address] 07/31/2025 10:00 AM EDT Office Visit [facility] PULMONARY & CRITICAL CARE MEDICINE 3000 [facility] 240 [place] [address] Maxine Gibson, WOOD CARVER [address] [place] [address] documented as of this encounter Goals Goal [...] documented as of this encounter Care Teams Patternmaker Metal Bench Relationship Specialty Start Date End Date Reza Panchal MD [address] [id number] PCP - General Family Medicine 09/30/24 documented as of this encounter
--- OUTSIDE RECORDS SUMMARY | 2025-05-26 12:24 | XMS_ITS | Clinical Summary ---
Author Organization Healthcare Address [address] [place] [address] Care Team Providers Care Manager Rail Name Role Phone Reza Panchal MD Primary Care Provider +1- [phone] Allergies Active Allergy Reactions Criticality Noted Date [...] file Insurance [employer] [place] Care Teams Manager Rail Relationship Specialty Start Date End Date Reza Panchal MD [address] [place] [address] PCP - General 08/17/24
--- OUTSIDE RECORDS SUMMARY | 2025-05-26 12:24 | XMS_ITS ---
Author Name Ephraim RN, POWER CHECKER, Leigh martinez Sarina Address [address] [address] Phone [phone] Organization [facility] Care Team Providers Care Sampling Theory Teacher Name Role Phone Iovnne Ye Unavailable [phone] Reason for Referral Not Available Allergies, adverse [...] 50 mg Tab TAKE 1 TABLET BY [facility] ONCE DAILY IN AM WITH FOOD [...] EVERY 12 HOURS 2024-01-03 No Data Available [id number]-[id number] [id number] Suspension SHAKE LIQUID AND INSTILL 1 DROP [...] mplaint [facility] 7 [facility] [place], [place], [place] 12/25/2024 Encntr for f/u exam aft trtm t for cond oth than malig neoplmSepsis, unspecified organism [facility] [place] 12/25/2024 Encntr for f/u exam aft trtm t for cond oth than malig neoplmSepsis, unspecified organism [facility] 7 [facility] [place] 12/25/2024 Encntr for f/u exam aft trtm t for cond oth than malig neoplmSepsis, unspecified organism [facility] 7 [facility] [place] 12/25/2024 Encntr for f/u exam aft trtm t for cond oth than malig neoplmSepsis, unspecified organism Telephone E/M Service; 5-10 min of Medical Discussion (Audio Only) [place], 12/27/2024 Sepsis, unspecified organism Telephone E/M Service; 5-10 min of Medical Discussion (Audio Only) [place], 12/27/2024 Sepsis, unspecified organism Vital Signs Date of Collection Vitals 2024-12-25 14:07:15 BP Diastolic - 79.0 mm[Hg]BP Systolic - 143.0 mm[Hg]Heart Rate - 92.0 /min Social History Sex Female History of Procedures Procedures Service Procedure code Service date Servicing provider Phone# Trans[facility] 7 Day Disch [id number] 2024-12-25 No Data Available No Data Avail [...] 5-10 min of Medical Discussion (Audio Only) [id number] 2024-12-27 No Data Available No Data Availa [...] getting around the house wellLana Erica is POA/qc analyst - she comes over and cooks meals, cleans the house, brings her to appts and the grocery store because pt gets out of breath with too much walkingPD will be a phone visit (Cannot be the following states: [place], [place], [place], [place], [place], [place], [place], [place], [place])Pt Agreed to a post discharge visit with a [facility] Provider: with Ivelisse Reed Friday, December 27, 2024 4:00pm ESTRN reinforced availability of UC provider 24/ for 30 days after discharge and encouraged CB w/ any concerns or if pt is worse in any way. Advised pt to call to reach our staff.Needs/concerns for [facility] provider to address during PD visit: 1) [...] review 2024-12-27 Type of Visit: [facility]: [facility] Date: 12/19/24Discharge diagnosis: [...]
--- NOTE | 2025-05-26 13:29 | HMH.OTEV ---
OT Inpatient Evaluation Rehab OT IP Evaluation Start: 05/26/25 10:08 Freq: ONCE Status: Active Protocol: Document 05/26/25 13:20 [facility] (Rec: 05/26/25 13:28 [facility] [id number]) Rehab OT IP Assessment Subjective History Pt oriented x 3 on arrival. Pt agreeable to engage in therapy evaluation. Pt admitted on 05/25/25 due to sepsis, PNA, and GI bleed. History and physical: 69-year-old female who presents from home with abdominal pain, nausea vomiting. Started Ozempic this past week for diabetes. Of note was admitted a month ago for UTI. States that she has had abdominal pain ever since her first dose of Ozempic. Developed nausea and vomiting over the past 24 hours. Vomiting was accompanied by coffee-ground emesis and noted to have melenic stool in the ED. Having epigastric abdominal pain. Takes aspirin and prasugrel at home for CAD status post stents in September 2024. Workup in the ER with imaging showing right middle and lower lobe pneumonia, anemia, elevated BUN consistent with GI bleed. Medicine consulted for admission and further management of GI bleed along with GI consult in the morning. Protonix loaded in the ED. On nasal cannula oxygen. Received ceftriaxone and azithromycin. Subjective Prior to being in the hospital, pt lived at home alone. Pt claims she was normally independent with functional transfers using a rolling walker and all ADLs (feeding, dressing, and bathing). Pt's granddaughter lives ~1 mile from her and completes all IADLs such as grocery shopping, cleaning, cooking, etc. Pt reports when she is discharged from hospital, she can go stay with her granddaughter if needed. Objective Patient Orientation Person,Place,Birthday Bed Mobility bed mobility-scooting,bed mobility - supine/sit Assist Level Minimal x 1 (25% assist) Transfer Training Sit/Stand Transfer Assist Level Minimal x 1 (25% assist) Rehab OT IP prob,goals,plan Problems Date of Evaluation: 05/26/25 OT IP Problems Bed Mobility,Transfers,Balance,Self care,Safety Rehab Potential Rehab Potential Good Equipment Needs Assistive Devices Rolling / Wheeled Walker Plan OT intervention Plan Bed Mobility,Transfers,Balance,Self care,Safety, Therapeutic Exercise OT Plan Frequency Daily Duration LOS Discharge Goals Bed Mobility Ability Standby Assistance Sit to Stand Chair Contact Guard/Hand Hold Transfer Ability Chair Transfer Contact Guard/Hand Hold Ability Chair Transfer Sit to/from Ambulatory Technique Chair Transfer Rolling Walker Assistive Devices Lower Body Dressing Minimal Assistance Ability Upper Body Dressing Standby Assistance Ability Performing Toilet Minimal Assistance Hygiene Ability Overall Commode/ Contact Guard Toilet Transfer Ability Commode/Toilet Sit to/from Ambulatory Transfer Technique Discharge Plan OT Discharge Plan Pt will continue to be seen for OT services while at [facility]. At this time, pt would benefit most from short term rehab at SNF following discharge from hospital. However, if patient improves during hospital stay, she could return home with granddaughter and 08/05 assistance. If she returned home, therapist would recommend OT evaluation. Continued skilled therapy is important in order for patient to improve strength, safety, endurance, functional transfers, and ADL independence to reach PLOF. Eval Complexity Eval Charge Codes 31164 - Moderate Complexity PHYSICIAN CERTIFICATION: I certify the specified therapy services for Madison Castellanos are required, authorized, and reviewed every 30 days.
--- NOTE | 2025-05-26 13:29 | HMH.PTEV ---
Physical Therapy Evaluation Rehab PT IP Evaluation Start: 05/26/25 10:08 Freq: ONCE Status: Active Protocol: Document 05/26/25 13:22 PRANAY (Rec: 05/26/25 13:27 PRANAY [id number]) Subjective/History History History Per H&P: 69-year-old female who presents from home with abdominal pain, nausea vomiting. Started Ozempic this past week for diabetes. Of note was admitted a month ago for UTI. States that she has had abdominal pain ever since her first dose of Ozempic. Developed nausea and vomiting over the past 24 hours. Vomiting was accompanied by coffee-ground emesis and noted to have melenic stool in the ED. Having epigastric abdominal pain. Takes aspirin and prasugrel at home for CAD status post stents in September 2024. Workup in the ER with imaging showing right middle and lower lobe pneumonia, anemia, elevated BUN consistent with GI bleed. Medicine consulted for admission and further management of GI bleed along with GI consult in the morning. Protonix loaded in the ED. On nasal cannula oxygen. Received ceftriaxone and azithromycin. On arrival to the floor, patient is feeling a little bit better after receiving IV fluids. Has family at bedside helps supplement history due to patient's memory impairment. She complains of abdominal pain mainly epigastric. Denies fever. Has had some chills. No chest pain or shortness of breath beyond baseline. Wearing oxygen continuously now however, normally only wears it at night. Subjective Subjective PLOF: Pt reports she lives alone and is IND with all mobility using a RW. Pt does not drive. Pt reports she can stay at her grand-daughter's home upon d/c and have 24/7 SPV. Pt's grand-daughter's home has [address]. New diagnosis of No cancer in past 12 months? [facility] How much help from another person do you currently need... Turning from your A lot back to your side while in a flat bed without using bedrails? Moving from lying on A lot back to sitting on the side of a flat bed without using bedrails? Moving to and from a A lot bed to a chair ( including a wheelchair)? Standing up from a A lot chair using your arms? (e.g., wheelchair, bedside chair) Walking in hospital A lot room? Climbing 3-5 steps A lot with a railing? Mobility Score 12 Mobility Level [facility] Mobility 4 Move to chair/commode Mobility Calculator Rehab PT IP Eval Objective Appearance Patient Behavior Appropriate,Cooperative Patient Orientation Person,Situation Difficulty following none instructions Speech Pattern Clear Ambulation Patient Able to No Ambulate Balance Ability to Arise Able, uses arms to help Sitting Balance Steady, safe Standing Balance Unsteady Transfers Bed Transfer Ability Minimal x 2 (25% assist) Sit to Stand Bed Minimal x 2 (25% assist) Transfer Ability Rehab PT IP prob,goals,plan Problems Date of Evaluation: 05/26/25 PT IP Problems Bed Mobility,Transfers,Gait,Balance,Self care,Safety Rehab Potential Rehab Potential Good Plan PT Intervention Plan Bed Mobility,Transfers,Gait,Balance,Self care,Safety, Therapeutic Exercise Other Intervention 1-2 times Plan PT Plan Frequency Daily Duration LOS Discharge Goals Bed Transfer Ability Contact Guard/Hand Hold Sit to Stand Chair Contact Guard/Hand Hold Transfer Ability Ambulation Assistive Rolling Walker Device Ambulation Distance 10 (feet) Discharge Plan PT Discharge Plan Initial physical therapy evaluation performed. Patient presents below baseline at this time in functional mobility, transfers, and strength. Pt not safe to return home at this time d/t current level of functional mobility. PT recommending short-term rehabilitation stay upon d/c from [facility]. Pt would benefit from skilled PT while at [facility] to prevent further functional decline and maximize safety with mobility. Eval Complexity Eval Charge Codes 92718 - Moderate Complexity PHYSICIAN CERTIFICATION: I certify the specified therapy services for Madison Castellanos are required, authorized, and reviewed every 30 days.
[2025-05-26] MEDS: ACETAMINOPHEN 325MG TAB 650 MG PO (18:53)
[2025-05-26] MEDS: MIRTAZAPINE 15 MG TABLET PO (21:11)
[2025-05-26] MEDS: PANTOPRAZOLE 40MG TABLET 40 MG PO (21:11)
[2025-05-26] MEDS: ATORVASTATIN 20MG TABLET 20 MG PO (21:11)
[2025-05-26] MEDS: MONTELUKAST SODIUM 10MG TAB 10 MG PO (21:11)
[2025-05-26 21:32] LABS: POC Glucose,Bedside 114 (70-110)
[2025-05-27] VITALS: BP 128/60; PULSE 94; RESP 20; TEMP 36.5; O2SAT 98
[2025-05-27 04:00] VITALS: BP 112/64; PULSE 75; RESP 16; TEMP 36.4; O2SAT 99; BMI 42.5
--- NOTE | 2025-05-27 04:53 | PC.NURSE ---
Pt is A&Ox4 and currently tolerating 2L well at this time. Pt denies pain and needs when asked. family member is at bedside.
[2025-05-27] MEDS: LEVOTHYROXINE 75MCG (0.075MG) TAB 75 MCG PO (06:02)
[2025-05-27 06:12] VITALS: O2SAT 99
[2025-05-27 06:27] LABS: Hematocrit 26.3 % (37.0-47.0); Hemoglobin 8.4 g/dL (12.2-16.2); Immature Granulocytes % 0.4 %; Mean Corpuscular HGB Conc 31.9 g/dL (31.8-35.4); Mean Corpuscular Hemoglobin 30.0 pg (27.0-31.2); Mean Corpuscular Volume 93.9 fl (81-99); Nucleated Red Blood Cells % 0 %; Platelet Count 138 K/mm3 (142-424); Red Blood Count 2.80 M/mm3 (4.20-5.40); Red Cell Distribution Width-SD 45.5 fL; White Blood Count 5.0 K/mm3 (4.8-10.8)
[2025-05-27 06:33] LABS: Albumin Level 3.2 g/dl (3.5-5.0); Chloride 104 mmol/L (98-107); Potassium 3.7 mmoL/L (3.5-5.1); Sodium 139 mmol/L (136-145)
[2025-05-27 06:36] LABS: Alanine Aminotransferase 19 U/L (12-78); Albumin/Globulin Ratio 1.2 (1.1-1.8); Alkaline Phosphatase 70 U/L (38-126); Anion Gap 8.7 mEq/L (5-15); Aspartate Amino Transferase 24 U/L (14-36); Bilirubin,Total 0.4 mg/dl (0.2-1.3); Blood Urea Nitrogen 14 mg/dl (7-17); Calcium 8.4 mg/dl (8.4-10.2); Carbon Dioxide 30 mmol/L (22.0-30.0); Creatinine Clearance Estimated 37 mL/min (50-200); Creatinine,Serum 0.50 mg/dl (0.52-1.04); Estimated Glomerular Filt Rate 123 ml/min (>60); GFR (African American) 149 ML/MIN (>60); Globulin 2.7 g/dL (1.3-3.2); Glucose 103 mg/dl (74-100); Total Protein,Serum 5.9 g/dl (6.3-8.2)
[2025-05-27 08:00] VITALS: BP 123/64; PULSE 88; RESP 19; TEMP 36.8; O2SAT 98
--- NOTE | 2025-05-27 08:16 | P.DS_ITS ---
<Statement entered by Ricky Watts MD - 05/29/25 10:08> Personally evaluated patient and agree with the plan of care as outlined by the [facility]. General Admission date:: 05/25/25 Discharge date: 05/27/25 HPI HPI HPI: 69-year-old female who presents from home with abdominal pain, nausea vomiting. Started Ozempic this past week for diabetes. Of note was admitted a month ago for UTI. States that she has had abdominal pain ever since her first dose of Ozempic. Developed nausea and vomiting over the past 24 hours. Vomiting was accompanied by coffee-ground emesis and noted to have melenic stool in the ED. Having epigastric abdominal pain. Takes aspirin and prasugrel at home for CAD status post stents in September 2024. Workup in the ER with imaging showing right middle and lower lobe pneumonia, anemia, elevated BUN consistent with GI bleed. Medicine consulted for admission and further management of GI bleed along with GI consult in the morning. Protonix loaded in the ED. On nasal cannula oxygen. Received ceftriaxone and azithromycin. On arrival to the floor, patient is feeling a little bit better after receiving IV fluids. Has family at bedside helps supplement history due to patient's memory impairment. She complains of abdominal pain mainly epigastric. Denies fever. Has had some chills. No chest pain or shortness of breath beyond baseline. Wearing oxygen continuously now however, normally only wears it at night. Hospital Course Hospital Course Hospital Course: Ms. Castellanos is a 69-year-old female who went to the ER with complaint of nausea and vomiting, coffee-ground's, abdominal pain. Workup was found to have anemia, had a melenic stool while in the ER. Concern for GI bleed. BUN disproportionate to creatinine consistent with blood loss in the digestive tract. Discussed case with ER physician, request admission for further management of GI bleed, anemia, and suspected pneumonia on chest imaging. Patient was admitted for further care and management, consultation with GI. Treating with Protonix twice daily. Holding blood thinners. Necessitating inpatient care. Problems addressed as follows: #Community-acquired pneumonia ? Has a general requirement of 2 L. Normally wears 2 L at home while asleep. Chest imaging per my review shows right lower lobe airspace disease. - Initiated on broad-spectrum antibiotics with azithromycin and ceftriaxone. Discharge on cefdinir 300 mg x 7 days total and azithromycin 500 mg x 5 days total. Blood cultures show no growth after 48 hours. Will continue to monitor. WBC at 5.0. - Supplemental oxygen as needed for goal sats greater 90%. Currently on 2 L, stable O2 saturation 97%. #Nausea and vomiting # GI bleed # Acute blood loss anemia #Hiatal hernia ? Patient started Ozempic this past week. Has had abdominal pain since. Developed nausea and vomiting over the past 24-48 hrs. Found to have coffee- ground emesis. Had melenic stool in the ED. Patient did not exhibit any further signs of GI bleed during admission. No melenic stools, no coffee-ground emesis. - Patient baseline hemoglobin around 13, hemoglobin this morning 8.4. Patient should follow-up with PCP outpatient in approximately 5 to 7 days for repeat CBC. 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 - GI recommended transition to oral PPI therapy, patient currently taking Voquenza prescribed by her PCP. Discussed with patient to take omeprazole 40 mg daily until follow-up with GI. Biopsies were taken during the procedure today to check for H. pylori. -Patient to continue taking Effient 10 mg daily at discharge. #Dementia #Diabetes mellitus #Hypothyroidism #COPD #History of DVT ? Restart patient's home medicines atorvastatin 20 mg, gabapentin 300 mg 3 times daily, levothyroxine 75 mcg, memantine 10 mg, metoprolol 50 mg twice daily - In regard to her CAD, she was stented in September 2024. Discussed case with cardiology who recommends continuing Effient at this time, continue not taking aspirin. Patient has follow-up appointment in June with cardiology. - Continue Remeron 50 mg. Continue Advair inhaler. ? DuoNebs every 6 hours as needed for shortness of breath. ? Hold Jardiance 10 mg due to persistent stress incontinence, urge incontinence, and recent UTI. A1c 8/4 of 6.4. Discussed with patient the need to follow-up with PCP regarding diabetic regimen, due to stopping Jardiance and Ozempic. Patient's blood sugars were stable during admission, 100-150 FSBS. PT/OT consult: PT/OT recommended SNF for rehab. Patient and family refused, patient's granddaughter provides 24/7 assistance in her home. Patient agreeable to home health services. Total time spent on discharge 36 minutes in counseling, documentation, chart review, and direct care with patient. Exam Data for Last 24 hours Vital signs and Labs for Last 24 Hours: Temp Pulse Resp BP Pulse Ox O2 Del Method O2 Flow Rate 97.6 F 75 16 112/64 99 Nasal Cannula 2 05/27/25 04:00 05/27/25 04:00 05/27/25 04:00 05/27/25 04:00 05/27/25 06:12 05/27/25 07:00 05/27/25 07:00 Laboratory Results - last 24 hr 05/26/25 06:17: Hgb 8.8 L D 05/26/25 21:19: POC Glucose 114 H 05/27/25 05:44: WBC 5.0, RBC 2.80 L, Hgb 8.4 L, Hct 26.3 L, MCV 93.9, MCH 30.0, MCHC 31.9, RDW 13.1, Plt Count 138 L, MPV 10.5 H, Neut % (Auto) 41.7, Lymph % (Auto) 41.6, Sevier % (Auto) 11.7 H, Eos % (Auto) 3.8, Baso % (Auto) 0.8, Neut # (Auto) 2.1, Lymph # (Auto) 2.1, Sevier # (Auto) 0.6, Eos # (Auto) 0.2, Baso # (Auto) 0.0, Sodium 139, Potassium 3.7, Chloride 104, Carbon Dioxide 30, Anion Gap 8.7, BUN 14 D, Creatinine 0.50 L D, Estimated Creat Clear 37, Estimated GFR 123, Est GFR ( Amer) 149 D, Glucose 103 H, Calcium 8.4, Total Bilirubin 0.4, AST 24, ALT 19, Alkaline Phosphatase 70, Total Protein 5.9 L, Albumin 3.2 L , Globulin 2.7, Albumin/Globulin Ratio 1.2 I & O for Last 24 hours: Intake & Output 05/24/25 05/25/25 05/26/25 05/27/25 23:59 23:59 23:59 23:59 Intake Total 550 / 550 900 / 1140 240 / 240 Output Total 1050 / 1050 2350 / 2350 250 / 250 Balance -500 / -500 -1450 / -1210 -10 / -10 Weight 91.263 kg 90.718 kg 98.339 kg Microbiology Reports for the Last 24 Hours: Microbiology 05/25/25 10:04 Blood Blood Culture - Preliminary NO GROWTH AFTER 24 HOURS 05/25/25 10:04 Blood Blood Culture - Preliminary NO GROWTH AFTER 24 HOURS Constitutional Constitutional: no acute distress, obese, chronically ill appearing and combative *Routine HEENT Exam Head: Present normocephalic Eye: Present EOMI ENT: Present mucous membranes moist *Routine Neck Exam Neck: Present supple and full ROM; Absent JVD *Routine Respiratory Exam Respiratory: Present CTA bilaterally, normal respiratory effort, able to speak in complete sentences and symmetric chest movement; Absent wheezes or crackles *Routine Cardiovascular Exam Cardiovascular: Present RRR *Routine Abdominal Exam Abdominal: Present soft and normoactive bowel sounds; Absent tenderness *Routine Rectal Exam Patient deferred: visual exam *Routine Exam Patient deferred: external exam *Routine Extremities Exam Extremities: Present normal capillary refill; Absent edema *Routine Skin Exam Skin: Present intact and dry *Routine Neurological Exam Neurological: Present alert and oriented X3 Results Data Completed and Pending Labs on day of discharge: Labs from last 24 hours 05/27/25 05/26/25 05/26/25 05:44 21:19 06:17 WBC 5.0 RBC 2.80 L Hgb 8.4 L 8.8 L D Hct 26.3 L MCV 93.9 MCH 30.0 MCHC 31.9 RDW 13.1 Plt Count 138 L MPV 10.5 H Neut % (Auto) 41.7 Lymph % (Auto) 41.6 Sevier % (Auto) 11.7 H Eos % (Auto) 3.8 Baso % (Auto) 0.8 Neut # (Auto) 2.1 Lymph # (Auto) 2.1 Sevier # (Auto) 0.6 Eos # (Auto) 0.2 Baso # (Auto) 0.0 Sodium 139 Potassium 3.7 Chloride 104 Carbon Dioxide 30 Anion Gap 8.7 BUN 14 D Creatinine 0.50 L D Estimated Creat Clear 37 Estimated GFR 123 Est GFR ( Amer) 149 D Glucose 103 H POC Glucose 114 H Calcium 8.4 Total Bilirubin 0.4 AST 24 ALT 19 Alkaline Phosphatase 70 Total Protein 5.9 L Albumin 3.2 L Globulin 2.7 Albumin/Globulin Ratio 1.2 Preliminary micro results at discharge 05/25/25 10:04 Blood Culture - Preliminary Blood NO GROWTH AFTER 24 HOURS 05/25/25 10:04 Blood Culture - Preliminary Blood NO GROWTH AFTER 24 HOURS DS: Diagnosis Discharge Diagnosis (1) GI bleeding: Status: Acute Code(s): K92.2 - Gastrointestinal hemorrhage, unspecified (2) Pneumonia involving right lung: Status: Acute Code(s): J18.9 - Pneumonia, unspecified organism (3) Acute blood loss anemia: Status: Acute Code(s): D62 - Acute posthemorrhagic anemia (4) Dementia: Status: Acute Code(s): F03.90 - Unspecified dementia, unspecified severity, without behavioral disturbance, psychotic disturbance, mood disturbance, and anxiety (5) Diabetes mellitus: Status: Acute Code(s): E11.9 - Type 2 diabetes mellitus without complications (6) Hypothyroidism: Status: Acute Code(s): E03.9 - Hypothyroidism, unspecified (7) COPD (chronic obstructive pulmonary disease): Status: Acute Code(s): J44.9 - Chronic obstructive pulmonary disease, unspecified Qualifiers: COPD type: unspecified COPD Qualified Code(s): J44.9 - Chronic obstructive pulmonary disease, unspecified (8) Hypomagnesemia: Status: Acute Code(s): E83.42 - Hypomagnesemia (9) Obesity (BMI 30-39.9): Status: Chronic Code(s): E66.9 - Obesity, unspecified (10) PUD (peptic ulcer disease): Status: Acute Code(s): K27.9 - Peptic ulcer, site unspecified, unspecified as acute or chronic, without hemorrhage or perforation (11) Esophagitis: Status: Acute Code(s): K20.90 - Esophagitis, unspecified without bleeding Meds Home Medications and Allergies Home Medications ?Medication ?Instructions ?Recorded ?Confirmed ?Type alendronate 70 mg tablet 70 mg PO WEEKLY 09/16/2408/09 History fluticasone propionate 50 2 spray intranasal DAILY 12/0905/25/25 History mcg/actuation nasal spray,suspension magnesium oxide 500 mg PO DAILY 12/16/2408/09 History cholecalciferol (vitamin D3) 125 125 mcg PO DAILY 12/1605/25/25 History mcg (5,000 unit) capsule mecobalamin (vitamin B12) 500 mcg 500 mcg PO DAILY 05/25/25 History chewable tablet nitroglycerin 0.4 mg sublingual 0.4 mg sublingual Q5-1 5M PRN Chest 01/13/25 05/25/25 History tablet Pain fluticasone 100 mcg-salmeterol 50 1 ea inhalation BID 01/20/25 05/25/25 History mcg/dose blistr powdr for inhalation prasugrel HCl 10 mg tablet 10 mg PO DAILY 30 days #30 tabs 05/12/25 05/25/25 Rx (Effient) atorvastatin 20 mg tablet 20 mg PO HS #90 tabs 5 05/25/25 Rx estradiol 0.01% (0.1 mg/gram) 1 appful vaginal DIRE CTED 05/19/25 05/25/25 History vaginal cream gabapentin 300 mg capsule 300 mg PO TID #90 caps 05/1905/25/25 Rx levothyroxine 75 mcg tablet 75 mcg PO DAILY #90 tabs 0 05/19/25 05/25/25 Rx memantine 10 mg tablet 10 mg PO DAILY #90 tabs 02/0705/25/25 Rx metoprolol succinate 50 mg 50 mg PO BID #180 tabs 02/0705/25/25 Rx tablet,extended release 24 hr mirtazapine 15 mg tablet 15 mg PO HS #90 tabs 5 05/25/25 Rx montelukast 10 mg tablet 10 mg PO DAILY #90 tabs 02/0705/25/25 Rx nystatin 100,000 unit/gram topical 1 applic topical TI D 05/19/25 05/25/25 History powder potassium chloride 10 mEq 10 meq PO DAILY #90 tabs 02/0705/25/25 Rx tablet,extended release(part/cryst) Diabetic Shoes (DME) #1 ea 05/20/25 05/20/25 Rx chlorthalidone 25 mg tablet 25 mg PO DAILYP PRN edema 05/25/25 05/25/25 History meloxicam 15 mg tablet 15 mg PO DAILYP PRN Mild Roderick n 05/25/25 05/25/25 History (Scale Score 1-4) nitrofurantoin 100 mg PO HS 08/10/25 08/10/ 25 History monohydrate/macrocrystals 100 mg capsule (Macrobid) vonoprazan 10 mg tablet (Voquezna) 10 mg PO DAILY 05/1605/25/25 History Held on 05/27/25. Instructions: finish PPI course, then resume medication as ordered azithromycin 500 mg tablet 500 mg PO DAILY 5 days #2 t abs 05/27/25 Rx cefdinir 300 mg capsule 300 mg PO BID #8 caps Rx omeprazole 40 mg capsule,delayed 40 mg PO DAILY #30 ca ps 05/27/25 Rx release New Prescriptions to Start Prescriptions: azithromycin Autumn Foss cefdinir Autumn Foss omeprazole Autumn Foss Allergies Allergy/AdvReac Type Severity Reaction Status Date / Time hydrocodone Allergy Mild Unknown Verified 05/20/25 14:50 allergy reaction acetaminophen (From Allergy Unknown Verified 05/20/25 14:50 Tylenol-Codeine #3) allergy reaction metformin Allergy Unknown Verified 05/20/25 14:50 allergy reaction codeine AdvReac Mild Unknown Verified 05/20/25 14:50 allergy reaction morphine AdvReac Gastrointestinal Verified 05/25/25 10:33 Upset Discharge Plan Disposition Patient Disposition: Home Health Service Condition: Fair Discharge Order Discharge Orders: Discharge Order (Routine); Ordered 05/27/25 Ordered By: Autumn Foss Follow up Plan Follow up with: Reji May II, MD [Staff Physician, Gastroenterology] - 06/19/25 9:15 am Anderson Foss PA [Physician Patient Safety Manager, Cardiology] - 07/10/25 10:30 am Referral Note: pt should already have an apt Reza Panchal MD [Primary Care Provider, Family Practice] - Enter time for follow up Prescriptions/Medication Reconciliation: New omeprazole 40 mg capsule,delayed release(DR/EC) 40 mg PO DAILY Qty: 30 1RF azithromycin 500 mg tablet 500 mg PO DAILY 5 Days Qty: 2 0RF cefdinir 300 mg capsule 300 mg PO BID Qty: 8 0RF Continued nitroglycerin 0.4 mg tablet, sublingual 0.4 mg sublingual Q5-15M PRN (Reason: Chest Pain) Rx Instructions: do not exceed 3 doses per episode cholecalciferol (vitamin D3) 125 mcg (5,000 unit) capsule 125 mcg PO DAILY mecobalamin (vitamin B12) 500 mcg tablet,chewable 500 mcg PO DAILY fluticasone propion-salmeterol 100-50 mcg/dose blister with device 1 ea inhalation BID Patient Comments: INHALE 1 PUFF BY MOUTH TWICE DAILY nystatin 100,000 unit/gram powder 1 applic topical TID estradiol 0.01 % (0.1 mg/gram) cream 1 appful vaginal DIRECTED Rx Instructions: TWICE WEEKLY gabapentin 300 mg capsule 300 mg PO TID Qty: 90 3RF potassium chloride 10 mEq tablet,ER particles/crystals 10 meq PO DAILY Qty: 90 3RF levothyroxine 75 mcg tablet 75 mcg PO DAILY Qty: 90 3RF metoprolol succinate 50 mg tablet extended release 24 hr 50 mg PO BID Qty: 180 3RF memantine 10 mg tablet 10 mg PO DAILY Qty: 90 3RF mirtazapine 15 mg tablet 15 mg PO HS Qty: 90 3RF atorvastatin 20 mg tablet 20 mg PO HS Qty: 90 3RF montelukast 10 mg tablet 10 mg PO DAILY Qty: 90 3RF (DME) Diabetic Shoes (DME) Misc See Rx Instructions .ROUTE .MEDSUPPLY Qty: 1 0RF Rx Instructions: [facility] Please dispense one (1) pair of Diabetic shoes with inserts prasugrel HCl [Effient] 10 mg tablet 10 mg PO DAILY 30 Days Qty: 30 6RF alendronate 70 mg tablet 70 mg PO WEEKLY Patient Comments: TAKE 1 TABLET BY MOUTH EVERY 7 DAYS fluticasone propionate 50 mcg/actuation spray,suspension 2 spray INTRANASAL DAILY magnesium oxide 500 mg magnesium tablet 500 mg PO DAILY chlorthalidone 25 mg tablet 25 mg PO DAILYP PRN (Reason: edema) meloxicam 15 mg tablet 15 mg PO DAILYP PRN (Reason: Mild Pain (Scale Score 1-4)) nitrofurantoin monohyd/m-cryst [Macrobid] 100 mg capsule 100 mg PO HS Rx Instructions: must administer with a meal/food Held Voquezna 10 mg tablet 10 mg PO DAILY Hold Instructions: finish PPI course, then resume medication as ordered Problem Reconciliation Problems Reviewed?: Yes Patient Discharge Instructions ACTIVITY: Ambulate as tolerated and Up with assistance DIET: diabetic diet Patient Instructions: Peptic Ulcer Disease (Alternative Therapy) Print Language: Kiswahili Providers Primary Care Provider: Reza Panchal Admit Provider: Allan Baca Attending Provider: Allan Baca
[2025-05-27] MEDS: NYSTATIN TOPICAL POWDER 30GM TP (09:26)
[2025-05-27] MEDS: METOPROLOL SUCCINATE XL 50MG TABLET 50 MG PO (09:26)
[2025-05-27] MEDS: GABAPENTIN 300MG CAPSULE 300 MG PO (09:26)
[2025-05-27] MEDS: MEMANTINE 10MG TABLET 10 MG PO (09:26)
[2025-05-27] MEDS: AZITHROMYCIN 500 MG in 0.9 % SODIUM CHLORIDE 250 ML 250 MG IV (10:29)
[2025-05-27 11:50] VITALS: BP 130/57; PULSE 85; RESP 18; TEMP 36.5; O2SAT 97
--- NOTE | 2025-05-28 10:43 | SW/DCPLANNER ---
Spoke with patient on the phone. Patient stated she is doing good. Patient stated that she is aware of her upcoming appointments. Patient stated that she was able to get her new medicine picked up from clinic pharmacy. Patient stated that she has no concerns or questions at this time. Gabe Powell
== END 2025-05-27 14:22 | disposition home health service (06) | DRG 326 ==
LOC: ER 10:06 → 2ND 10:49
PROVIDERS: Emergency Medicine; Internal Medicine Gastroenterology; Admitting Provider Internal Medicine Adolescent Medicine; Emergency Provider Student in an Organized Health Care Education/Training Program; PCP Family Medicine; Visit Provider Internal Medicine Adolescent Medicine
PROC: 0DJ08ZZ Inspection of Upper Intestinal Tract, Via Natural or Artificial Opening Endoscopic (ICD-10-PCS; principal; 2025-05-26 07:00)
DX: K25.4 Chronic or unspecified gastric ulcer with hemorrhage (principal); J18.9 Pneumonia, unspecified organism; D62 Acute posthemorrhagic anemia; J44.0 Chronic obstructive pulmonary disease with (acute) lower respiratory infection; Z68.41 Body mass index [BMI] 40.0-44.9, adult; F03.90 Unspecified dementia, unspecified severity, without behavioral disturbance, psychotic disturbance, mood disturbance, and anxiety; E11.9 Type 2 diabetes mellitus without complications; E03.9 Hypothyroidism, unspecified; E83.42 Hypomagnesemia; E66.9 Obesity, unspecified; I25.10 Atherosclerotic heart disease of native coronary artery without angina pectoris; N39.46 Mixed incontinence; K21.00 Gastro-esophageal reflux disease with esophagitis, without bleeding; K44.9 Diaphragmatic hernia without obstruction or gangrene; Z95.5 Presence of coronary angioplasty implant and graft; Z86.718 Personal history of other venous thrombosis and embolism; Z87.440 Personal history of urinary (tract) infections; Z79.02 Long term (current) use of antithrombotics/antiplatelets; Z79.899 Other long term (current) drug therapy; Z79.85 Long-term (current) use of injectable non-insulin antidiabetic drugs; Z79.890 Hormone replacement therapy; Z88.5 Allergy status to narcotic agent; Z88.8 Allergy status to other drugs, medicaments and biological substances; Z79.82 Long term (current) use of aspirin
CPT/HCPCS: 36415; 71045; 71275; 74177; 80053; 81001; 82803; 82962; 83605; 83690; 83735; 84145; 84484; 85025; 85610; 86140; 86850; 87040; 88305; 93005; 94640; 94761; 97162; 97166; 97530; C1760; J0456; J0696; J2003; J2270; J2405; J2470; J2704; J3475; J7050; J7120; Q9967

== ENCOUNTER 2025-06-03 12:05 | Outpatient (CLI) | payer MEDICARE, MEDICAID, SELFPAY ==
--- OUTSIDE RECORDS SUMMARY | 2017-02-08 12:08 | XMS_ITS | Encounter Summary ---
[facility] Address [address] [place] [address] Care Team Providers Care Isotope Hydrologist Name Role Phone Lizbeth Ibarra MD Primary Care Provider Unav ailable Encounter Details Date Type Department Care Team (Late st Contact Info) Description 02/08/2017 12:08 PM EDT Hospital Encounter [facility] PULMONARY & CRITICAL CARE MEDICINE [address]00 [place] [phone] Social History Tobacco Use Types Packs/Day Years Used Date Smoking Tobacco: Never Passive Smoke Exposure: Past Smokeless Tobacco: Never Comments: smokes, for 45 years Alcohol Use Standard Drinks/Week Comments No 0 (1 standard drink = 0.6 oz pur e alcohol) [facility] Utilities Answer Date Recorded In the past 12 months has [employer], gas, oil, or water [employer] threatened to shut off services in your [...] or training? Not on file Preferred Language German 01/28/2025 PHQ-2 Answer Date Recorded Retired PHQ-9: [...] 7:09 AM EDT Dary Chapin RN * [place] Suicide Severity Rating Scale (Screener/Recent Self-Report) Question Answer Date of Assessment Author 6. Suicidal Behavior (Lifetime) No 7:09 AM EDT Dary Benites RN documented as of this encounter Plan of Treatment Upcoming Encounters Date Type Department Care Team (Late st Contact Info) Description 06/05/2025 10:45 AM EDT Office Visit [facility] RHEUMATOLOGY [address] [phone] John Sheppard, CAMPUS AMBASSADOR [address] [address] 06/13/2025 10:00 AM EDT Office Visit [facility] UROLOGY [address] [address] Sanam Saunders, CAMPUS AMBASSADOR [address] [phone] 07/01/2025 11:00 AM EDT Office Visit [facility] UROLOGY [address] [address] Brennan Lee MD [address] [phone] 07/18/2025 11:30 AM EDT Appointment [facility] OUTPATIENT ONCOLOGY 1740 [place] [address] 07/31/2025 10:00 AM EDT Office Visit [facility] PULMONARY & CRITICAL CARE MEDICINE 3000 [facility] [address]STA [address] [place] [address] Arthur Maxine Fontaine, CAMPUS AMBASSADOR [address] [place] [address] documented as of this encounter Goals Goal [...] documented as of this encounter Care Teams Isotope Hydrologist Relationship Specialty Start Date End Date Lizbeth Ibarra MD PCP - General 06/18/15 07/10/17 documented as of this encounter
--- OUTSIDE RECORDS SUMMARY | 2022-02-25 11:00 | XMS_ITS | Encounter Summary ---
Author Organization [facility] Address [address] [place] [address] Care Team Providers Care Satellite Technician Name Role Phone Johanna Jeffrey MD Primary Care Provider +1- [phone] Reason for Visit * Monitoring (Routine) - Closed Specialty Diagnoses / Procedures Referred By Tia t Referred To Contact Diagnoses Palpitations Dizziness Procedures Mobile Cardiac Outpatient Telemetry Cardiac Event Monitor Tiffany Maier MD [address] [place] [address] Phone: tel: fax: [facility] [address] [facility] [address] [facility] 100 [place] [address] Phone: tel: Referral ID Status Reason Start Date Expiration Date Visits Re quested Visits Authorized [id number] Closed 02/25/2022 02/25/2023 1 1 Encounter Details Date Type Department Care Team (Late st Contact Info) Description 02/25/2022 11:00 AM EDT Hospital Encounter [facility] CARDIOLOGY [address] [place] [phone] Palpitations; Dizziness Social History Tobacco Use Types Packs/Day Years Used Date Smoking Tobacco: Never Passive Smoke Exposure: Past Smokeless Tobacco: Never Comments: smokes, for 45 years Alcohol Use Standard Drinks/Week Comments No 0 (1 standard drink = 0.6 oz pur e alcohol) [place] Utilities Answer Date Recorded In the past 12 months has th e electric, [employer], oil, or water [employer] threatened to shut off services in your [...] or training? Not on file Preferred Language Tamazight 01/28/2025 PHQ-2 Answer Date Recorded Retired PHQ-9: [...] 7:09 AM EDT Dary Chapin RN * [place] Suicide Severity Rating Scale (Screener/Recent Self-Report) Question Answer Date of Assessment Author 6. Suicidal Behavior (Lifetime) No 7:09 AM EDT Dary Benites, RN documented as of this encounter Plan of Treatment Upcoming Encounters Date Type Department Care Team (Late st Contact Info) Description 06/05/2025 10:45 AM EDT Office Visit [facility] RHEUMATOLOGY 330 [facility] 100 [place] [address] John Sheppard APRN 330 [facility] 100 [place] [address] 06/13/2025 10:00 AM EDT Office Visit [facility] UROLOGY [address] [place] [address] Sanam Saunders, FOREST FIRE PREVENTION SPECIALIST 1760 [facility] [address] [place] [address] 07/01/2025 11:00 AM EDT Office Visit [facility] UROLOGY 1760 [facility] 502 [place] [address] Brennan Lee MD 1760 [facility] 502 [place] [address] 07/18/2025 11:30 AM EDT Appointment [facility] OUTPATIENT ONCOLOGY 1740 [place] [phone] 07/31/2025 10:00 AM EDT Office Visit [facility] PULMONARY & CRITICAL CARE MEDICINE 3000 [facility] 240 [place] [phone] Maxine Gibson, PARVIZ [address] [place] [address] documented as of this encounter Goals Goal [...] 21 hours and 51 minutes. Total beats: [id number]. Average HR: 83. Min HR: 48. Max [...] Diagnoses Diagnosis Palpitations Dizziness Dizziness and giddiness Seropositive rheumatoid arthritis- Primary High risk medication use Primary osteoarthritis involving multiple joints Age-related osteoporosis without current pathological fracture NSAID long-term use Encounter for long-term (current) use of non-steroidal anti-inflammatories Fatigue, unspecified type documented in this encounter Additional Health Concerns [...] documented as of this encounter Care Teams Satellite Technician Relationship Specialty Start Date End Date Johanna Jeffrey MD 1 Myron GOODWIN [address] [place] [address] PCP - General Internal Medicine 10/20/21 08/20/22 documented as of this encounter
--- OUTSIDE RECORDS SUMMARY | 2024-04-23 19:45 | XMS_ITS | Encounter Summary ---
[facility] Address [address] [place] [address] Care Team Providers Care Supervisor Cutting Department Name Role Phone Rafael Pal MD, Huyen Primary Care Provider [phone] Reason for Referral * Hospital - Outpatient [...] or More Parameters Ijeoma Payne APRN [address] [place] [address] Phone: tel: fax: [facility] [address] [address] Phone: tel: fax: Referral ID Status Reason Start Date Expiration Date Visits Re quested Visits Authorized [id number] Closed 12/19/2023 12/18/2024 1 1 Reason for [...] or More Parameters Ijeoma Payne, PARVIZ [address] [facility] [address] Phone: tel: fax: [facility] [address] [address] Phone: tel: fax: Referral ID Status Reason Start Date Expiration Date Visits Re quested Visits Authorized [id number] Closed 12/19/2023 12/18/2024 1 1 Encounter Details Date Type Department Care Team (Late st Contact Info) Description 04/23/2024 7:45 PM EDT Hospital Encounter [facility] [address] [place] [address] Ijeoma Payne, PARVIZ [address] [place] [address] Dementia, unspecified dementia severity, unspecified dementia type, [...] = 0.6 oz pur e alcohol) [facility] Utilities Answer Date Recorded In the past 12 months has [employer], gas, oil, or water [employer] threatened to shut off services in your [...] or training? Not on file Preferred Language Sammarinese 01/28/2025 PHQ-2 Answer Date Recorded Retired PHQ-9: [...] documented in this encounter Functional Status * Question Answer [...] 7:09 AM EDT Dary Chapin RN * [place] Suicide Severity Rating Scale (Screener/Recent Self-Report) Question Answer Date of Assessment Author 6. Suicidal Behavior (Lifetime) No 7:09 AM EDT Dary Benites RN documented as of this encounter Plan of Treatment Upcoming Encounters Date Type Department Care Team (Late st Contact Info) Description 06/05/2025 10:45 AM EDT Office Visit [facility] RHEUMATOLOGY 330 [facility] 100 [place] [address] John Sheppard APRN 330 [facility] 100 [place] [address] 06/13/2025 10:00 AM EDT Office Visit [facility] UROLOGY [address] [address] Sanam Saunders APRN 1760 [facility] [address] [place], [place] [address] 07/01/2025 11:00 AM EDT Office Visit [facility] UROLOGY 1760 [facility] 502 [place] [address] Brennan Lee MD 1760 [facility] 502 [place], [place] [address] 07/18/2025 11:30 AM EDT Appointment [facility] OUTPATIENT ONCOLOGY [address] [place] [id number] 07/31/2025 10:00 AM EDT Office Visit [facility] PULMONARY & CRITICAL CARE MEDICINE 3000 [facility] 240 [place] [address] Maxine Gibson, PEDIATRIC SPEECH LANGUAGE PATHOLOGIST [address] [place] [address] documented as of this encounter Goals Goal [...] Procedure Name Priority Date/Time Associated Diagnosis Comments NPSG Routine 04/24/2024 5:23 AM EDT Dementia, unspecified dementia severity, unspecified dementia type, unspecified whether behavioral, psychotic, or mood disturbance or anxiety Essential hypertension Palpitations Suspected sleep apnea Excessive daytime sleepiness Snoring Nightmares Morning headache Psychophysiological insomnia documented in this encounter Results * NPS (04/24/2024 5:23 AM EDT) Impressions SLEEP MEDICINE [...] raw data and agree with the interpretation. Braedn To MD, [facility] Pul[facility] Critical care and Sleep medicine Narrative [...] respirations: None. 8. Bruxism: None. Ijeoma Payne PEDIATRIC SPEECH LANGUAGE PATHOLOGIST SLEEP CENTER ORDERABLES Fin al Result SLEEP MEDICINE documented in this [...] Persistent disorder of initiating or maintaining sleep Seropositive rheumatoid arthritis- Primary High risk medication [...] Time PHQ-2 Depression Total Score: 1 04/22/20 24 8:00 AM EDT documented as of this encounter Care Teams Supervisor Cutting Department Relationship Specialty Start Date End Date Huyen Hall MD [address] [facility] 100 [place] [address] PCP - General Family Medicine 08/21/22 07/25/24 documented as of this encounter
--- OUTSIDE RECORDS SUMMARY | 2025-04-29 09:30 | XMS_ITS | Encounter Summary ---
Author Organization [facility] Address [address] [place] [address] Care Team Providers Care Railroad Car Loader Name Role Phone Reza Panchal MD Primary Care Provider +1- [phone] Reason for Visit * Reason Comments Sleep Apnea Follow up Encounter Details Date Type Department Care Team (Late st Contact Info) Description 04/29/2025 9:30 AM EDT Office Visit [facility] PULMONARY & CRITICAL CARE MEDICINE 3000 [facility] 240 [place] [address] Maxine Gibson, MANAGER TRUCK [address]00 [place] [address] Seasonal allergic rhinitis due to pollen (Primary [...] drink = 0.6 oz pur e alcohol) [facility] Utilities Answer Date Recorded In the past 12 months has [employer], gas, oil, or water company threatened [...] Everywhere. * GERD in Adults: Diet Changes (Irish) documented in this encounter Progress Notes * Maxine Gibson APRN - 04/29/2025 9:30 AM EDT Hoahaoism Pulmonary Follow up CHIEF COMPLAINT fatigue HISTORY OF PRESENT ILLNESS Madison Castellanos is a 69 y.o.female here today for follow-up. She was last seen in the office by me in January. She was recently discharged from [facility] yesterday for aspiration pneumonia and sepsis. [...] Reyna 2nd Gen 32G X 4 MM [facility], USE 1 NEEDLE THREE TIMES DAILY DIRECTED, [...] Description 06/05/2025 10:45 AM EDT Office Visit [facility] RHEUMATOLOGY [address] [phone] John Sheppard APRN 330 [facility] 100 [place] [address] 06/13/2025 10:00 AM EDT Office Visit [facility] UROLOGY 1760 [facility] 502 [place] [address] Sanam Saunders APRN 1760 [facility] [address] [place] [address] 07/01/2025 11:00 AM EDT Office Visit [facility] UROLOGY 1760 [facility] [address] [place] [address] Brennan Lee MD 1760 [facility] 502 [place], [place] [id number] 07/18/2025 11:30 AM EDT Appointment [facility] OUTPATIENT ONCOLOGY [address] [place] [phone] 07/31/2025 10:00 AM EDT Office Visit [facility] PULMONARY & CRITICAL CARE MEDICINE 3000 [facility] 240 [place] [address] Maxine Gibson, MANAGER TRUCK [address] [place] [address] documented as of this encounter Goals Goal [...] in past. Obstructive sleep apnea (adult) (pediatric) Seropositive rheumatoid arthritis- Primary High risk medication [...] documented as of this encounter Care Teams Railroad Car Loader Relationship Specialty Start Date End Date Reza Panchal MD [address] [place] [address] PCP - General Family Medicine 09/30/24 documented as of this encounter
--- OUTSIDE RECORDS SUMMARY | 2025-05-06 10:30 | XMS_ITS | Encounter Summary ---
[facility] Address [address] [place] [address] Care Team Providers Care Building Performance Specialist Name Role Phone Reza Panchal MD Primary Care Provider +1- [phone] Reason for Referral * Diagnostic Medical (Routine) - Authorized Specialty Diagnoses / Procedures Referred By Tia holman Referred To Contact Gastroenterology Diagnoses Esophageal dysphagia Gastroesophageal reflux disease, unspecified whether esophagitis present Palak Graham PA-C [address] [facility] [address] [place] [address] Phone: tel: fax: [facility] GASTROENTEROLOGY [address] [facility] [address] [place] [phone] Phone: tel: fax: Referral ID Status Reason Start Date Expiration Date Visits Requested Visits Authorized [id number] Authorized Specialty Services Required 05/06/2025 08/05/2026 1 1 Reason for Visit * Reason Comments Gastroesophageal reflux disease, esophag itis Encounter Details Date Type Department Care Team ([facility] Contact Info) Description 05/06/2025 10:30 AM EDT Office Visit [facility] GASTROENTEROLOGY [address] [facility] [address] [place] [phone] Palak Graham PA-C [address] [place] [address] Esophageal dysphagia (Primary Dx); Gastroesophageal reflux disease, unspecified whether esophagitis present; History of Jacqui fundoplication; History of aspiration pneumonia Social History Tobacco Use Types Packs/Day Years Used Date Smoking Tobacco: Never Passive Smoke Exposure: Past Smokeless Tobacco: Never Comments: smokes, for 45 years Alcohol Use Standard Drinks/Week Comments No 0 (1 standard drink = 0.6 oz pur e alcohol) [facility] Utilities Answer Date Recorded In the past 12 months has [employer], gas, oil, or water company threatened to [...] or training? Not on file Preferred Language Vincentian 01/28/2025 PHQ-2 Answer Date Recorded Retired PHQ-9: [...] reflux disease, esophagitis History of Present Illness: Madison Castellanos is a 69 y.o. female, who is here today for follow upon gerd and dysphagia. Past medical history includes hiatal hernia, status post nisin fundoplication, GERD, s/p umbilical hernia repair, ventral hernia repair, s/p CCY. Previously followed with Clarita Ross. Patient presents today accompanied by her granddaughter and 2 great granddaughters. Patient reportsanika was discharged from [facility] on 04/28/2025 for sepsis secondary to UTI [...] details and recommendations. Colonoscopy 07/2023 Dr. Randolph: [place] Bowel Prep: 8 Moderate diverticulosis Moderately enlagred [...] Reyna 2nd Gen 32G X 4 MM [facility], USE 1 NEEDLE THREE TIMES DAILY DIRECTED, [...] ENDOSCOPY x2 ESOPHAGOSCOPY / EGD 05/09/2017 Dr Mojcia INTERSTIM PERC TEST Bilateral 02/04/2025 Procedure: INTERSTIM [...] MD, 05/21/2011 REPLACEMENT TOTAL KNEE Left 06/15/2022 [facility] SPINAL CORD STIMULATOR IMPLANT 02/2021 SPINAL CORD [...] Fundoplication H/o aspiration pneumonia Request records from [facility] from recent visit from 04/24- 04/28/25.She is [...] opinion of the practitioner. Palak Graham PA-C [facility] [place] documented in this encounter Plan of Treatment Upcoming Encounters Date Type Department Care Team (Late st Contact Info) Description 06/05/2025 10:45 AM EDT Office Visit [facility] RHEUMATOLOGY [address] [facility] [address] [place] [phone] John Sheppard, ELECTRICAL EQUIPMENT TECHNICIAN 330 [facility] 100 [place] [address] 06/13/2025 10:00 AM EDT Office Visit [facility] UROLOGY [address] [facility] [address] [place] [address] Sanam Saunders, ELECTRICAL EQUIPMENT TECHNICIAN 1760 [facility] 502 [place], [place] [address] 07/01/2025 11:00 AM EDT Office Visit [facility] UROLOGY [address] [facility] [address] [place] [address] Brennan Lee MD [address] [facility] [address] [place] [address] 07/18/2025 11:30 AM EDT Appointment [facility] OUTPATIENT ONCOLOGY [address] [place] [address] 07/31/2025 10:00 AM EDT Office Visit [facility] PULMONARY & CRITICAL CARE MEDICINE [address] [facility] 240 [place] [phone] Maxine Gibson, ELECTRICAL EQUIPMENT TECHNICIAN [address] [place] [address] Scheduled Referrals Name Type Priority Associated Diagnoses [...] 05/06/2025 7:29 PM EDT [facility] Blood Venipuncture / Unknown 05/06/2025 12:01 PM EDT 05/06/2025 12:01 PM EDT Palak Graham PA-C LAB BLOOD ORDERABLES Final Result [facility]
[address] [place] [address], * (ABNORMAL) Comprehensive Metabolic Panel (05/06/2025 12:01 PM EDT) Glucose 150(H) 65 - 99 mg/dL 05/06/2025 7:23 PM T [facility] BUN 17.0 8.0 - 23.0 mg/dL 05/06/2025 7:23 PM T [facility] Creatinine 0.85 0.57 - 1.00 mg/dL 05/06/2025 7:23 PM T [facility] Sodium 141 136 - 145 mmol/L 05/06/2025 7:23 PM T [facility] Potassium 4.0 3.5 - 5.2 mmol/L 05/06/2025 7:23 PM T [facility] Chloride 101 98 - 107 mmol/L 05/06/2025 7:23 PM T [facility] CO2 27.3 22.0 - 29.0 mmol/L 05/06/2025 7:23 PM T [facility] Calcium 9.4 8.6 - 10.5 mg/dL 05/06/2025 7:23 PM T [facility] Total Protein 7.7 6.0 - 8.5 g/dL 05/06/2025 7:23 PM T [facility] Albumin 4.0 3.5 - 5.2 g/dL 05/06/2025 7:23 PM T [facility] ALT (SGPT) 21 1 - 33 U/L 05/06/2025 7:23 PM T [facility] AST (SGOT) 18 1 - 32 U/L 05/06/2025 7:23 PM T [facility] Alkaline Phosphatase 98 39 - 117 U/L 05/06/2025 7:23 PM T [facility] Total Bilirubin 0.3 0.0 - 1.2 mg/dL 05/06/2025 7:23 PM T [facility] Globulin 3.7 gm/dL 05/06/2025 7:23 PM T [facility] A/G Ratio 1.1 g/dL 05/06/2025 7:23 PM EDT [facility] BUN/Creatinine Ratio 20.0 7.0 - 25.0 05/06/2025 7:23 PM EDT [facility] Anion Gap 12.7 5.0 - 15.0 mmol/L 05/06/2025 7:23 PM EDT [facility] eGFR 75.2 >60.0 mL/min/1.7 3 05/06/2025 7:23 PM EDT [facility] Blood Venipuncture / Unknown 05/06/2025 12:01 PM EDT 05/06/2025 12:01 PM EDT Narrative [facility] - 05/06/2025 7:23 PM EDT GFR [...] does not include race as a factor Palak Graham PA-C LAB BLOOD ORDERABLES Final Result [facility]
[address] [place] [address], documented in this encounter Visit Diagnoses Diagnosis Esophageal dysphagia- Primary Dysphagia, pharyngoesophageal phase Gastroesophageal reflux disease, unspecified whether esophagitis present History of Jacqui fundoplication History of aspiration pneumonia Seropositive rheumatoid arthritis- Primary High risk medication use Primary osteoarthritis involving multiple joints Age-related osteoporosis without current pathological fracture NSAID long-term use Encounter for long-term (current) use of non-steroidal anti-inflammatories Fatigue, unspecified type documented in this encounter Additional Health Concerns Infection Onset Date Last Indicated Resolved Time Hepatitis A 04/12/2024 04/12/2024 Assessment Noted Time PHQ-2 Depression Total Score: 1 05/20/20 11:00 AM EDT documented as of this encounter Care Teams Building Performance Specialist Relationship Specialty Start Date End Date Reza Panchal MD [facility] [place] [address] PCP - General Family Medicine 09/30/24 documented as of this encounter
--- OUTSIDE RECORDS SUMMARY | 2025-05-06 12:15 | XMS_ITS | Encounter Summary ---
[facility] Address [address] [place] [address] Care Team Providers Care Enrober Tender Name Role Phone Reza Panchal MD Primary Care Provider +1- [phone] Encounter Details Date Type Department Care Team (Late st Contact Info) Description 05/06/2025 12:15 PM EDT Lab [facility] DI[facility]NOST[facility] [place] AT [address] [place] [address] Esophageal dysphagia; Gastroesophageal reflux disease, unspecified whether esophagitis present Social History Tobacco Use Types Packs/Day Years Used Date Smoking Tobacco: Never Passive Smoke Exposure: Past Smokeless Tobacco: Never Comments: smokes, for 45 years Alcohol Use Standard Drinks/Week Comments No 0 (1 standard drink = 0.6 oz pur e alcohol) [facility] Utilities Answer Date Recorded In the past 12 months has [employer], gas, oil, or water [employer] threatened to shut off services in your [...] Description 06/05/2025 10:45 AM EDT Office Visit [facility] RHEUMATOLOGY 330 [facility] 100 [place] [phone] John hSeppard, STRIPPER COLOR 330 [facility] 100 [place], [place] [phone] 06/13/2025 10:00 AM EDT Office Visit [facility] UROLOGY 1760 [facility] 502 [place], [place] [phone] Sanam Saunders, STRIPPER COLOR [address] [address] 07/01/2025 11:00 AM EDT Office Visit [facility] UROLOGY 1760 [facility] 502 [place] [address] Brennan Lee MD 1760 [facility] 502 [place] [address] 07/18/2025 11:30 AM EDT Appointment [facility] OUTPATIENT ONCOLOGY [address] [place] [address] 07/31/2025 10:00 AM EDT Office Visit [facility] PULMONARY & CRITICAL CARE MEDICINE 3000 [facility] [address] [place] [phone] Maxine Gibson, STRIPPER COLOR [address] [place] [address] documented as of this encounter Goals Goal [...] Procedure Name Priority Date/Time Associated Diagnosis Comments TSH RFX ON ABNORMAL TO FREE T4 Add-On 05/06/2025 12:01 PM EDT Esophageal dysphagia Gastroesophageal reflux disease, unspecified whether esophagitis present CBC WITH AUTO DIFFERENTIAL Routine 05/06/2025 12:01 PM EDT Esophageal dysphagia Gastroesophageal reflux disease, unspecified whether esophagitis present CBC AND DIFFERENTIAL Routine 05/06/2025 12:01 PM EDT Esophageal dysphagia Gastroesophageal reflux disease, unspecified whether esophagitis present COMPREHENSIVE METABOLIC PANEL Routine 05/06/2025 12:01 PM EDT Esophageal dysphagia Gastroesophageal reflux disease, unspecified whether esophagitis present documented in this encounter Results * TSH Rfx On Abnormal To Free T4 (05/06/2025 12:01 PM EDT) TSH 2.680 0.270 - 4.200 uIU/mL 05/06/2025 7:29 PM EDT [facility] Blood Venipuncture / Unknown 05/06/2025 12:01 PM EDT 05/06/2025 12:01 PM EDT Palak Graham PA-C LAB BLOOD ORDERABLES Final Result [facility]
[address] [place] [address], * (ABNORMAL) CBC Auto Differential (05/06/2025 12:01 PM EDT) Pathologist [facility] WBC 6.88 3.40 - 10.80 10*3/mm3 05/06/2025 6:48 PM EDT [facility] RBC 4.42 3.77 - 5.28 10*6/mm3 05/06/2025 6:48 PM EDT [facility] Hemoglobin 13.5 12.0 - 15.9 g/dL 05/06/2025 6:48 PM EDT [facility] Hematocrit 41.0 34.0 - 46.6 % 05/06/2025 6:48 PM EDT [facility] MCV 92.8 79.0 - 97.0 fL 05/06/2025 6:48 PM EDT [facility] MCH 30.5 26.6 - 33.0 pg 05/06/2025 6:48 PM EDT [facility] MCHC 32.9 31.5 - 35.7 g/dL 05/06/2025 6:48 PM EDT [facility] RDW 13.1 12.3 - 15.4 % 05/06/2025 6:48 PM EDT [facility] RDW-SD 44.8 37.0 - 54.0 fl 05/06/2025 6:48 PM EDT [facility] MPV 10.0 6.0 - 12.0 fL 05/06/2025 6:48 PM EDT [facility] Platelets 314 140 - 450 10*3/mm3 05/06/2025 6:48 PM T [facility] Neutrophil % 41.1(L) 42.7 - 76.0 % 05/06/2025 6:48 PM EDT [facility] Lymphocyte % 37.1 19.6 - 45.3 % 05/06/2025 6:48 PM EDT [facility] Monocyte % 14.8(H) 5.0 - 12.0 % 05/06/2025 6:48 PM T [facility] Eosinophil % 5.4 0.3 - 6.2 % 05/06/2025 6:48 PM T [facility] Basophil % 0.7 0.0 - 1.5 % 05/06/2025 6:48 PM EDT [facility] Immature Grans % 0.9(H) 0.0 - 0.5 % 05/06/2025 6:48 PM [facility] Neutrophils, Absolute 2.83 1.70 - 7.00 10*3/mm3 05/06/2025 6:48 PM T [facility] Lymphocytes, Absolute 2.55 0.70 - 3.10 10*3/mm3 05/06/2025 6:48 PM [facility] Monocytes, Absolute 1.02(H) 0.10 - 0.90 10*3/mm3 05/06/2025 6:48 PM EDT [facility] Eosinophils, Absolute 0.37 0.00 - 0.40 10*3/mm3 05/06/2025 6:48 PM T [facility] Basophils, Absolute 0.05 0.00 - 0.20 10*3/mm3 05/06/2025 6:48 PM T [facility] Immature Grans, Absolute 0.06(H) 0.00 - 0.05 10*3/mm3 05/06/2025 6:[facility] nRBC 0.0 0.0 - 0.2 /100 WBC 05/06/2025 6:48 PM EDT [facility] Blood Venipuncture / Unknown 05/06/2025 12:01 PM EDT 05/06/2025 12:01 PM EDT us Palak Graham PA-C LAB BLOOD ORDERABLES Final Result [facility]
[address] [place] [address], * (ABNORMAL) Comprehensive Metabolic Panel (05/06/2025 12:01 PM EDT) Glucose 150(H) 65 - 99 mg/dL 05/06/2025 7:23 PM EDT [facility] BUN 17.0 8.0 - 23.0 mg/dL 05/06/2025 7:23 PM EDT [facility] Creatinine 0.85 0.57 - 1.00 mg/dL 05/06/2025 7:23 PM EDT [facility] Sodium 141 136 - 145 mmol/L 05/06/2025 7:23 PM EDT [facility] Potassium 4.0 3.5 - 5.2 mmol/L 05/06/2025 7:23 PM EDT [facility] Chloride 101 98 - 107 mmol/L 05/06/2025 7:23 PM EDT [facility] CO2 27.3 22.0 - 29.0 mmol/L 05/06/2025 7:23 PM EDT [facility] Calcium 9.4 8.6 - 10.5 mg/dL 05/06/2025 7:23 PM EDT [facility] Total Protein 7.7 6.0 - 8.5 g/dL 05/06/2025 7:23 PM EDT [facility] Albumin 4.0 3.5 - 5.2 g/dL 05/06/2025 7:23 PM EDT [facility] ALT (SGPT) 21 1 - 33 U/L 05/06/2025 7:23 PM EDT [facility] AST (SGOT) 18 1 - 32 U/L 05/06/2025 7:23 PM EDT [facility] Alkaline Phosphatase 98 39 - 117 U/L 05/06/2025 7:23 PM EDT [facility] Total Bilirubin 0.3 0.0 - 1.2 mg/dL 05/06/2025 7:23 PM EDT [facility] Globulin 3.7 gm/dL 05/06/2025 7:23 PM EDT [facility] A/G Ratio 1.1 g/dL 05/06/2025 7:23 PM EDT [facility] BUN/Creatinine Ratio 20.0 7.0 - 25.0 05/06/2025 7:23 PM T [facility] Anion Gap 12.7 5.0 - 15.0 mmol/L 05/06/2025 7:23 PM T [facility] eGFR 75.2 >60.0 mL/min/1.7 3 05/06/2025 7:23 PM T [facility] Blood Venipuncture / Unknown 05/06/2025 12:01 PM EDT 05/06/2025 12:01 PM EDT [facility] - 05/06/2025 7:23 PM EDT [...] Graham PA-C LAB BLOOD ORDERABLES Final Result [facility]
[address] [place] [address], documented in this encounter Visit Diagnoses Diagnosis Esophageal dysphagia Dysphagia, pharyngoesophageal phase Gastroesophageal reflux disease, unspecified whether esophagitis present Seropositive rheumatoid arthritis- Primary High risk medication [...] documented as of this encounter Care Teams Enrober Tender Relationship Specialty Start Date End Date Reza Panchal MD [facility] [place] [address] PCP - General Family Medicine 09/30/24 documented as of this encounter
--- OUTSIDE RECORDS SUMMARY | 2025-05-14 14:30 | XMS_ITS | Encounter Summary ---
Author Organization [facility] Address [address] [place] [address] Care Team Providers Care Marketing Research Coordinator Name Role Phone Reza Panchal MD Primary Care Provider +1- [phone] Reason for Visit * Reason Comments recurrent UTI HOSPITAL FOLLOW UP E 'COLI UTI/OAB/CINDY Encounter Details Date Type Department Care Team (Late st Contact Info) Description 05/14/2025 2:30 PM EDT Office Visit [facility] UROLOGY [address] [address] Sanam Saunders, PARVIZ 1760 [facility] [address] [place] [address] Infection due to 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 toxin-producing Escherichia [...] drink = 0.6 oz pur e alcohol) [facility] Utilities Answer Date Recorded In the past 12 months has [employer] electric, gas, oil, or water company threatened [...] or training? Not on file Preferred Language Bruneian 01/28/2025 PHQ-2 Answer Date Recorded Retired PHQ-9: [...] Care Everywhere. * Urinary Tract Infection Female (Bruneian) * Vaginal Dryness and Thinning (Atrophic Vaginitis): What to Know Tgpa-fv-Ggup (Bruneian) * Overactive Bladder in Adults: What to Know (Bruneian) documented in this encounter Progress Notes * [...] antibiotics to protect the rectal reservoir including gdbc-pmz-gxmxcip yogurt preparations to judy oral pills containing [...] EDTAssociated Problem(s): Yeast dermatitis Orders: nystatin (MYCOSTATIN) [id number] UNIT/GM powder; Apply topically to the appropriate area as directed 3 (Three) Times a Day. POC Urinalysis Dipstick, Automated * Sanam Saunders APRN - 05/14/2025 2:30 PM EDTAssociated Problem(s): Perineal irritation in female Orders: nystatin (MYCOSTATIN) [id number] UNIT/GM powder; Apply topically to the appropriate [...] for 2-week follow-up, post recent hospitalization at [facility] in [place] from 04/24 - 04/28/2025 for E. coli [...] 05/14/2025 Slightly Cloudy (A) Clear Final Specific [place] 05/14/2025 1.015 1.005 - 1.030 Final pH, [...] antibiotics to protect the rectal reservoir including dvcg-uya-dcrmske yogurt preparations to judy oral pills containing [...] Dipstick, Automated Yeast dermatitis Orders: nystatin (MYCOSTATIN) [id number] UNIT/GM powder; Apply topically to the appropriate area as directed 3 (Three) Times a Day. POC Urinalysis Dipstick, Automated Perineal irritation in female Orders: nystatin (MYCOSTATIN) [id number] UNIT/GM powder; Apply topically to the appropriate [...] Description 06/05/2025 10:45 AM EDT Office Visit [facility] RHEUMATOLOGY [address] [address] John Sheppard APRN [address] [address] 06/13/2025 10:00 AM EDT Office Visit [facility] UROLOGY [address] [place] [address] Sanam Saunders APRN [address] [address] 07/01/2025 11:00 AM EDT Office Visit [facility] UROLOGY [address] [place] [address] [place] [address] Brennan Lee MD 1760 [facility] [address] [place] [address] 07/18/2025 11:30 AM EDT Appointment [facility] OUTPATIENT ONCOLOGY [address] [place] [phone] 07/31/2025 10:00 AM EDT Office Visit [facility] PULMONARY & CRITICAL CARE MEDICINE 3000 [facility] [address] [place] [phone] Maxine Gibson, PARTS PROCESSOR [address] [place] [id number] documented as of this encounter Goals Goal [...] Color Yellow Yellow, Straw, Dark Yellow, Ann [facility] Clarity, UA Slightly Cloudy(A) Clear [facility] Specific [place] 1.015 1.005 - 1.030 [facility] pH, Urine 6.0 5.0 - 8.0 [facility] Leukocytes Negative Negative [facility] Nitrite, UA Negative Negative [facility] Protein, POC Negative Negative mg/dL [facility] Glucose, UA 3+(A) Negative mg/dL [facility] Ketones, UA Negative Negative [facility] Urobilinogen, UA 0.2 E.U./dL Normal, 0.2 E.U./dL [facility] Bilirubin Negative Negative [facility] Blood, UA Negative Negative [facility] Lot Number [id number] [facility] Expiration Date 07/20/2026 [facility] Urine 05/14/2025 3:56 PM EDT us Sanam Saunders PARTS PROCESSOR POINT OF CARE TEST ORDE VOLODYMYR Final Result [facility]
[address] [place] [address], * LABS SCANNED (05/14/2025) Sanam Saunders APRN LAB BLOOD ORDERABLES Fi nal Result documented in this encounter Visit Diagnoses Diagnosis Infection due to 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 toxin-producing Escherichia coli (E.coli)- Primary Yeast vaginitis Yeast dermatitis Perineal irritation in female Atrophic vaginitis Postmenopausal atrophic vaginitis Seropositive rheumatoid arthritis- Primary High risk medication [...] documented as of this encounter Care Teams Marketing Research Coordinator Relationship Specialty Start Date End Date Reza Panchal MD [address] [place] [address] PCP - General Family Medicine 09/30/24 documented as of this encounter
--- OUTSIDE RECORDS SUMMARY | 2025-05-23 13:00 | XMS_ITS | Encounter Summary ---
[facility] [address] [place] [address] Care Team Providers Care Senior Procurement Specialist Name Role Phone Reza Panchal MD Primary Care Provider [phone]- [phone] Reason for Visit * Episode Based Medications (Routine) - Closed Specialty Diagnoses / Procedures Referred By Tia holman Referred To Contact Diagnoses Rheumatoid arthritis involving multiple sites with positive rheumatoid factor Procedures [place] GOLIMUMAB FOR IV USE 1MG Patrice Santana DO [address] [employer] [address] [place] [address] Phone: tel: fax: [facility] OUTPATIENT ONCOLOGY [address] [place] [address] Phone: tel: fax: Referral ID Status Reason Start Date Expiration Date Visits Re quested Visits Authorized [id number] Closed 05/06/2024 05/06/2025 1 1 Encounter Details Date Type Department Care Team (Latest Contact Info) Description 05/23/2025 1:00 PM EDT - 05/23/2025 11:59 PM EDT Hospital Encounter [facility] OUTPATIENT ONCOLOGY [address] [place] [address] Patrice Santana DO [address] [employer] [address] [place] [id number] Rheumatoid arthritis involving multiple sites with positive rheumatoid factor (Primary Dx) Discharge Disposition: Home or Self Care Social History Tobacco Use Types Packs/Day Years Used Date Smoking Tobacco: Never Passive Smoke Exposure: Past Smokeless Tobacco: Never Comments: smokes, for 45 years Alcohol Use Standard Drinks/Week Comments No 0 (1 standard drink = 0.6 oz pur e alcohol) [facility] Utilities Answer Date Recorded In the past 12 months has th e [employer], gas, oil, or water company threatened to [...] or training? Not on file Preferred Language Tanzanian 01/28/2025 PHQ-2 Answer Date Recorded Retired PHQ-9: [...] Shortness of Air. 18 g 6 04/29/2025 alendronate (FOSAMAX) 70 MG tablet Take 1 tablet by mouth Every 7 (Seven) Days. 4 tablet 6 01/30/2025 amLODIPine (NORVASC) 2.5 MG tabletIndications:P rimary hypertension Take 1 tablet by mouth Daily. 30 tablet 2 06/07/2024 Aspirin Low Dose 81 MG EC tablet TAKE 1 TABLET BY MOUTH DAILY 100 tablet 2 01/26/2024 atorvastatin (LIPITOR) 20 MG tablet Take 1 tablet by mouth Daily. 90 tablet 04/29/2025 BD Pen Needle Reyna 2nd Gen 32G X 4 MM misc USE 1 NEEDLE THREE TIMES DAILY DIRECTED 08/01/2022 cefdinir (OMNICEF) 300 MG capsule 04/28/2025 chlorthalidone (HYGROTON) 25 MG tablet 03/25/2025 Cholecalciferol [...] AREA 2-3X WEEKLY 42.5 g 12 05/14/2025 fluticasone (FLONASE) 50 MCG/ACT nasal sprayIndications:Ch ronic cough Administer 2 sprays into the nostril(s) as directed by provider Daily. 33.3 g 01/28/2025 Fluticasone-Salmete rol (ADVAIR/WIXELA) 100-50 MCG/ACT DISKUSIndications:C hronic cough Inhale 1 puff 2 (Two) Times a Day. 180 each 04/29/2025 gabapentin (NEURONTIN) 100 MG capsuleIndications: Post [...] minutes. 25 tablet 5 01/03/2024 nystatin (MYCOSTATIN) [id number] UNIT/GM powderIndications:Y east dermatitis,Perineal irritation in female [...] by mouth Daily. 30 tablet 11 05/12/2025 documented as of this encounter Plan of Treatment Upcoming Encounters Date Type Department Care Team (Late st Contact Info) Description 06/05/2025 10:45 AM EDT Office Visit [facility] RHEUMATOLOGY [address] [address] John Sheppard APRN 330 [facility] 100 [place] [address] 06/13/2025 10:00 AM EDT Office Visit [facility] UROLOGY [address]60 [facility] [address] [place] [id number] Sanam Saunders APRN 1760 [facility] [address] [place], [place] [phone] 07/01/2025 11:00 AM EDT Office Visit [facility] UROLOGY [address]60 [facility] 502 [place] [address] Brennan Lee MD [address]60 [facility] [address] [place] [address] 07/18/2025 11:30 AM EDT Appointment [facility] OUTPATIENT ONCOLOGY [address] [place] [phone] 07/31/2025 10:00 AM EDT Office Visit [facility] PULMONARY & CRITICAL CARE MEDICINE 3000 [facility] [address] [place] [phone] Maxine Gibson, DIRECTOR OF CONTRACTS [address] [place] [id number] documented as of this encounter Goals Goal [...] multiple sites with positive rheumatoid factor- Primary Seropositive rheumatoid arthritis- Primary High risk medication use Primary osteoarthritis involving multiple joints Age-related osteoporosis without current pathological fracture NSAID long-term use Encounter for long-term (current) use of non-steroidal anti-inflammatories Fatigue, unspecified type documented in this encounter Administered Medications Inactive [...] documented as of this encounter Care Teams Senior Procurement Specialist Relationship Specialty Start Date End Date Reza Panchal MD [address] [place] [address] PCP - General Family Medicine 09/30/24 documented as of this encounter
--- OUTSIDE RECORDS SUMMARY | 2025-06-03 10:33 | XMS_ITS | Encounter Summary ---
Author Organization [facility] Address [address] [place] [address] Care Team Providers Care Corporate Executive Name Role Phone Reza Panchal MD Primary Care Provider [phone]- [phone] Reason for Referral * Diagnostic Imaging (Routine) - Authorized Specialty Diagnoses / Procedures Referred By Contac t Referred To Contact Radiology Diagnoses Seropositive rheumatoid arthritis High risk medication use Primary osteoarthritis involving multiple joints Age-related osteoporosis without current pathological fracture NSAID long-term use Procedures DEXA Bone Density Axial Patrice Santana DO Phone: tel: fax: [facility] DEXA [address] [address] Phone: tel: Referral ID Status Reason Start Date Expiration Date V isits Requested Visits Authorized [id number] Authorized 01/30/2025 05/01/2026 1 1 Reason for Visit * Diagnostic Imaging (Routine) - Authorized Specialty Diagnoses / Procedures Referred By Contac manda Referred To Contact Radiology Diagnoses Seropositive rheumatoid arthritis High risk medication use Primary osteoarthritis involving multiple joints Age-related osteoporosis without current pathological fracture NSAID long-term use Procedures DEXA Bone Density Axial Patrice Santana DO Phone: tel: fax: [facility] DEXA [address] [place] [address] [place] [address] Phone: tel: Referral ID Status Reason Start Date Expiration Date V isits Requested Visits Authorized [id number] Authorized 01/30/2025 05/01/2026 1 1 Encounter Details Date Type Department Care Team (Latest Contact Info) Description 06/03/2025 10:33 AM EDT Hospital Encounter [facility] DEXA [place] [address] [place] [id number] Seropositive rheumatoid arthritis; High risk medication use; Primary osteoarthritis involving multiple joints; Age-related osteoporosis without current pathological fracture; NSAID long-term use Social History Tobacco Use Types Packs/Day Years Used Date Smoking Tobacco: Never Passive Smoke Exposure: Past Smokeless Tobacco: Never Comments: smokes, for 45 years Alcohol Use Standard Drinks/Week Comments No 0 (1 standard drink = 0.6 oz pur e alcohol) [facility] Utilities Answer Date Recorded In the past 12 months has [employer] gas, oil, or water [employer] threatened to shut off services in your [...] Description 06/05/2025 10:45 AM EDT Office Visit [facility] RHEUMATOLOGY [address] [address] John Sheppard APRN 330 [facility] 100 [place], [place] [id number] 06/13/2025 10:00 AM EDT Office Visit [facility] UROLOGY 1760 [facility] 502 [place], [place] [id number] Sanam Saunders APRN 1760 [facility] 502 [place], [place] [id number] 07/01/2025 11:00 AM EDT Office Visit [facility] UROLOGY 1760 [facility] [place] [place], [place] [phone] Brennan Lee MD 1760 [facility] 502 [place], [place] [id number] 07/18/2025 11:30 AM EDT Appointment [facility] OUTPATIENT ONCOLOGY [address] [place] [address] 07/31/2025 10:00 AM EDT Office Visit [facility] PULMONARY & CRITICAL CARE MEDICINE 3000 [facility] 240 [place] [phone] Maxine Gibson, PRENATAL NURSE [address] [place] [address] Pending Results Name Type Priority Associated Diagnoses Date /Time DEXA Bone Density Axial Imaging Routine Seropositive rheumatoid arthritis High risk medication use Primary osteoarthritis involving multiple joints Age-related osteoporosis without current pathological fracture NSAID long-term use 06/03/2025 10:55 AM EDT Scheduled Orders Name Type Priority Associated Diagnoses Orde r Schedule DEXA Bone Density Axial Imaging Routine Seropositive rheumatoid arthritis High risk medication use Primary osteoarthritis involving multiple joints Age-related osteoporosis without current pathological fracture NSAID long-term use Once for 1 Occurrences starting 06/03/2025 until 06/03/2025 documented as of this encounter Goals Goal [...] as of this encounter Visit Diagnoses Diagnosis Seropositive rheumatoid arthritis High risk medication use Primary osteoarthritis involving multiple joints Age-related osteoporosis without current pathological fracture NSAID long-term use Encounter for long-term (current) use of non-steroidal anti-inflammatories Seropositive rheumatoid arthritis- Primary High risk medication [...] documented as of this encounter Care Teams Corporate Executive Relationship Specialty Start Date End Date Reza Panchal MD [address] [place] [address] PCP - General Family Medicine 09/30/24 documented as of this encounter
--- NOTE | 2025-06-03 12:08 | XR_ITS ---
FINAL REPORT CLINICAL HISTORY: pneumonia COMPARISON: 05/25/2025 FINDINGS: CHEST 2 VIEWS PA AND LATERAL There is mild cardiomegaly. And unfolded aorta is identified. There is scarring at the bases, similar to prior. There is no pneumothorax. IMPRESSION: No acute process. Reviewed, Interpreted and Dictated by Corey Vargas MD Transcribed by Fouzia Carlson Authenticated and [facility]
--- OUTSIDE RECORDS SUMMARY | 2025-06-03 12:09 | XMS_ITS | Encounter Summary ---
[facility] Address [address] [place] [address] Care Team Providers Care Locomotive Operator Helper Name Role Phone Reza Panchal MD Primary Care Provider +1- [phone] Encounter Details Date Type Department Care Team (Late st Contact Info) Description 05/14/2025 Telephone [facility] UROLOGY [address] [place] [address] Sanam Saunders APRN 1760 [facility] [address] [place] [address] Social History Tobacco Use Types Packs/Day Years Used Date Smoking Tobacco: Never Passive Smoke Exposure: Past Smokeless Tobacco: Never Comments: smokes, for 45 years Alcohol Use Standard Drinks/Week Comments No 0 (1 standard drink = 0.6 oz pur e alcohol) [facility] Utilities Answer Date Recorded In the past 12 months has [employer], gas, oil, or water company threatened [...] unsuccessful Caller: ERICA THRASHER Relationship to patient: LIZA/KEILA VERBAL ON FILE Best call back number: [phone] Patient is needing: PT CALLED REQUESTING A LATER APPT TODAY OR FOR ANOTHER DAY THIS WEEK. PLEASE CALL TO ADVISE. THANKS. documented in this encounter Plan of Treatment Upcoming Encounters Date Type Department Care Team (Late st Contact Info) Description 06/05/2025 10:45 AM EDT Office Visit [facility] RHEUMATOLOGY [address] [address] John Sheppard, PARVIZ [address] [address] 06/13/2025 10:00 AM EDT Office Visit [facility] UROLOGY [address] [address] Sanam Saunders, RESOURCE FORESTER 1760 [facility] [address] [place] [address] 07/01/2025 11:00 AM EDT Office Visit [facility] UROLOGY [address] [address] Brennan Lee MD [address] [address] 07/18/2025 11:30 AM EDT Appointment [facility] OUTPATIENT ONCOLOGY [address] [place] [address] 07/31/2025 10:00 AM EDT Office Visit [facility] PULMONARY & CRITICAL CARE MEDICINE [address] [facility] [address] [place] [address] Maxine Gibson, RESOURCE FORESTER [address] [place] [address] documented as of this encounter Goals Goal [...] documented as of this encounter Care Teams Locomotive Operator Helper Relationship Specialty Start Date End Date Reza Panchal MD [facility] [place] [address] PCP - General Family Medicine 09/30/24 documented as of this encounter
--- OUTSIDE RECORDS SUMMARY | 2025-06-03 12:09 | XMS_ITS | Encounter Summary ---
Author Organization [facility] Address [address] [place] [address] Care Team Providers Care Cook House Supervisor Name Role Phone Reza Panchal MD Primary Care Provider +1- [phone] Encounter Details Date Type Department Care Team (Latest Contact Info) Description 05/14/2025 Travel Social History Tobacco Use Types Packs/Day Years Used Date Smoking Tobacco: Never Passive Smoke Exposure: Past Smokeless Tobacco: Never Comments: smokes, for 45 years Alcohol Use Standard Drinks/Week Comments No 0 (1 standard drink = 0.6 oz pur e alcohol) [facility] Utilities Answer Date Recorded In [...] or training? Not on file Preferred Language Grenadian 01/28/2025 PHQ-2 Answer Date Recorded Retired PHQ-9: [...] Description 06/05/2025 10:45 AM EDT Office Visit [facility] RHEUMATOLOGY 330 [facility] 100 [place] [address] John Sheppard SHOE DYER 330 [facility] 100 [place] [address] 06/13/2025 10:00 AM EDT Office Visit [facility] UROLOGY 1760 [facility] 502 [place] [address] Sanam Saunders, SHOE DYER 1760 [facility] [address] [place], [place] [address] 07/01/2025 11:00 AM EDT Office Visit [facility] UROLOGY 1760 [facility] 502 [place] [address] Brennan Lee MD [address] [address] 07/18/2025 11:30 AM EDT Appointment [facility] OUTPATIENT ONCOLOGY 1740 [place] [address] 07/31/2025 10:00 AM EDT Office Visit [facility] PULMONARY & CRITICAL CARE MEDICINE 3000 [facility] 240 [place] [address] Maxine Gibson, SHOE DYER [address] [place] [address] documented as of this encounter Goals Goal [...] documented as of this encounter Care Teams Cook House Supervisor Relationship Specialty Start Date End Date Reza Panchal MD [address] [place] [address] PCP - General Family Medicine 09/30/24 documented as of this encounter
--- OUTSIDE RECORDS SUMMARY | 2025-06-03 12:10 | XMS_ITS | Encounter Summary ---
Author Organization [facility] Address [address] [place] [address] Care Team Providers Care Sweet Pickle Maker Name Role Phone Reza Panchal MD Primary Care Provider +1- [phone] Reason for Visit * Reason Onset Date Comments Med Refill 05/12/2025 Encounter Details Date Type Department Care Team (Late st Contact Info) Description 05/12/2025 Refill [facility] GASTR[facility]OLOGY [address] [address] Palak Graham PA-C 1720 [facility] [address] [place] [address] Social History Tobacco Use Types Packs/Day Years Used Date Smoking Tobacco: Never Passive Smoke Exposure: Past Smokeless Tobacco: Never Comments: smokes, for 45 years Alcohol Use Standard Drinks/Week Comments No 0 (1 standard drink = 0.6 oz pur e alcohol) [facility] Utilities Answer Date Recorded In the past 12 months has [employer] electric, gas, oil, or water company threatened [...] or training? Not on file Preferred Language Surinamese 01/28/2025 PHQ-2 Answer Date Recorded Retired PHQ-9: [...] Description 06/05/2025 10:45 AM EDT Office Visit [facility] RHEUMATOLOGY 330 [facility] 100 [place] [address] John Sheppard STONE POLISHER HAND 330 [facility] 100 [place], [place] [address] 06/13/2025 10:00 AM EDT Office Visit [facility] UROLOGY 1760 [place] [address] Sanam Saunders, STONE POLISHER HAND [address] [address] 07/01/2025 11:00 AM EDT Office Visit [facility] UROLOGY [address] [address] Brennan Lee MD [address] [address] 07/18/2025 11:30 AM EDT Appointment [facility] OUTPATIENT ONCOLOGY 1740 [place] [address] 07/31/2025 10:00 AM EDT Office Visit [facility] PULMONARY & CRITICAL CARE MEDICINE 3000 [facility] 240 [place] [address] Maxine Gibson, STONE POLISHER HAND [address] [place] [address] documented as of this encounter Goals Goal [...] documented as of this encounter Care Teams Sweet Pickle Maker Relationship Specialty Start Date End Date Reza Panchal MD 1210 [place] [address] PCP - General Family Medicine 09/30/24 documented as of this encounter
--- OUTSIDE RECORDS SUMMARY | 2025-06-03 12:10 | XMS_ITS | Encounter Summary ---
[facility] Address [address] [place] [address] Care Team Providers Care Off Premise Service Representative Name Role Phone Reza Panchal MD Primary Care Provider +1- [phone] Reason for Visit * Reason Onset Date Comments VOQUENZA 10 MG PA REQUEST 05/13/2025 APPROVAL 05/13/2025 Encounter Details Date Type Department Care Team (Latest Contact Info) Description 05/13/2025 Prior Authorization [facility] GASTROENTEROLOG[facility] [address] [place] [address] Khadar Julien RMA VOQUENZA 10 MG PA REQUEST; APPROVAL Social History Tobacco Use Types Packs/Day Years Used Date Smoking Tobacco: Never Passive Smoke Exposure: Past Smokeless Tobacco: Never Comments: smokes, for 45 years Alcohol Use Standard Drinks/Week Comments No 0 (1 standard drink = 0.6 oz pur e alcohol) [facility] Utilities Answer Date Recorded In the past 12 months has [employer] electric, gas, oil, or water company threatened [...] - 05/20/2025 3:12 PM EDT I CALLED DANIEL BACK. I CALLED [facility] AND SPOKE WITH PHARMACIST. PA GREWAL NUMBER GIVEN. PHARMACIST STATED HE WILL UPDATE THE CLAIM AND GIVE PATIENT A CALL. * Telephone Encounter - Khadar Julien RMA - 05/14/2025 11:37 AM EDT I SPOKE WITH DANIEL. INFORMED HER THAT BHARAT GUSMAN HAS BEEN APPROVED. SHE WILL CALL [facility]. * Telephone Encounter - Khadar Julien RMA - 05/14/2025 11:35 AM EDT Outcome Approved on May 13 by Jenni [facility] 2017 Your request has been approved Effective Date: 10/16/2024 Authorization Expiration Date: 10/15/2025 * Telephone Encounter - Marta Spencer MA - 05/14/2025 11:04 AM EDT Daniel Becerra wants you to call her regarding patients bharat prior authorization. * Telephone Encounter - Khadar Julien RMA - 05/13/2025 2:39 PM EDT INFORMED DANIEL(ADALI) OF PA APPROVAL. * Telephone Encounter - Khadar Julien RMA - 05/13/2025 2:38 PM EDT PA Need Help? Call us at Outcome Approved today by [facility] 2017 Your request has been approved Effective Date: 10/16/2024 Authorization Expiration Date: 10/15/2025 * Telephone Encounter - Khadar Julien RMA - 05/13/2025 2:04 PM EDT (Grewal: [id number]) PA Need Help? Call us at Status sent iconSent to Plan today Drug Voquezna 10MG tablets ePA cloud logo Form Jenni Electronic PA Form (2016 NCPDP) documented in this encounter Plan of Treatment Upcoming Encounters Date Type Department Care Team (Late st Contact Info) Description 06/05/2025 10:45 AM EDT Office Visit [facility] RHEUMATOLOGY [address] [phone] John Sheppard, MANAGER LONG TERM CARE 330 [facility] 100 [place] [address] 06/13/2025 10:00 AM EDT Office Visit [facility] UROLOGY [address] [place] [address] Sanam Saunders, MANAGER LONG TERM CARE [address] [address] 07/01/2025 11:00 AM EDT Office Visit [facility] 1760 [facility] [address] [place] [address] Brennan Lee MD 1760 [facility] 502 [place] [address] 07/18/2025 11:30 AM EDT Appointment [facility] OUTPATIENT ONCOL[facility] 1740 [facility] [place] [place] [address] 07/31/2025 10:00 AM EDT Office Visit [facility] PULMONARY & CRITICAL CARE MEDICINE 3000 [facility] 240 [place] [address] Maxien Gibson, MANAGER LONG TERM CARE 2400 [place] [address] documented as of this encounter Goals Goal [...] documented as of this encounter Care Teams Off Premise Service Representative Relationship Specialty Start Date End Date Reza Panchal MD [address] [place] [address] PCP - General Family Medicine 09/30/24 documented as of this encounter
--- OUTSIDE RECORDS SUMMARY | 2025-06-03 12:10 | XMS_ITS | Encounter Summary ---
Author Organization [facility] Address [address] [place] [address] Care Team Providers Care Hardware Manager Name Role Phone Reza Panchal MD Primary Care Provider +1- [phone] Reason for Visit * Reason Comments Med Refill Encounter Details Date Type Department Care Team (Late st Contact Info) Description 12/19/2021 Refill [facility] PRIMARY CARE [address] [address] Dia Underwood MD 2039 [facility] 100 [place] [address] Social History Tobacco Use Types Packs/Day Years [...] Visit [facility] RHEUMATOLOGY [address] [address] John Sheppard APRN [address] [address] 06/13/2025 10:00 AM EDT Office Visit [facility] UROLOGY [address] [address] Sanam Saunders, PARVIZ [address] [address] 07/01/2025 11:00 AM EDT Office Visit [facility] UROLOGY [address] [address] Brennan Lee MD [address] [address] 07/18/2025 11:30 AM EDT Appointment [facility] OUTPATIENT ONCOLOGY 1740 [place] [phone] 07/31/2025 10:00 AM EDT Office Visit [facility] PULMONARY & CRITICAL CARE MEDICINE 3000 [facility] 240 [place] [address] Maxine Gibson, TUG BOAT ENGINEER [address] [place] [address] documented as of this encounter Visit Diagnoses [...] documented as of this encounter Care Teams Hardware Manager Relationship Specialty Start Date End Date Reza Panchal MD [facility] [address] [address] PCP - General Family Medicine 09/30/24 documented as of this encounter
--- OUTSIDE RECORDS SUMMARY | 2025-06-03 12:10 | XMS_ITS | Encounter Summary ---
Author Organization [facility] Address [address] [place] [address] Care Team Providers Care Pebble Mill Operator Name Role Phone Reza Panchal MD Primary Care Provider +1- [phone] Encounter Details Date Type Department Care Team [...] Visit [facility]HE[facility]OLOG[facility] 330 [facility] 100 [place] [address] John Sheppard CARBON SEQUESTRATION PLANT OPERATOR 330 [facility] 100 [place] [address] 06/13/2025 10:00 AM EDT Office Visit [facility] UROLOGY 1760 [facility] 502 [place] [address] Sanam Saunders, CARBON SEQUESTRATION PLANT OPERATOR 1760 [facility] [address] [place], [place] [address] 07/01/2025 11:00 AM EDT Office Visit [facility] UROLOG[facility] 1760 [facility] 502 [place] [address] Brennan Lee MD [address] [address] 07/18/2025 11:30 AM EDT Appointment [facility] OUTPATIENT ONCOLOGY 1740 [place] [address] 07/31/2025 10:00 AM EDT Office Visit [facility] PULMONARY & CRITICAL CARE MEDICINE 3000 [facility] 240 [place] [phone] Maxine Gibson, CARBON SEQUESTRATION PLANT OPERATOR [address] [place] [address] documented as of this encounter Goals Goal [...] documented as of this encounter Care Teams Pebble Mill Operator Relationship Specialty Start Date End Date Reza Panchal MD [address] [place] [address] PCP - General Family Medicine 09/30/24 documented as of this encounter
--- OUTSIDE RECORDS SUMMARY | 2025-06-03 12:10 | XMS_ITS | Encounter Summary ---
[facility] Address [address] [place] [address] Care Team Providers Care Ritual Circumciser Name Role Phone Reza Panchal MD Primary Care Provider +1- [phone] Reason for Visit * Reason Onset Date Comments Med Refill 04/29/2025 Encounter Details Date Type Department Care Team (Late st Contact Info) Description 04/29/2025 Refill [facility] CARDIOLOGY [address] [address] Tristan Mosley MD 1720 [facility] 400 [place] [address] Med Refill Social History Tobacco Use Types Packs/Day Years Used Date Smoking Tobacco: Never Passive Smoke Exposure: Past Smokeless Tobacco: Never Comments: smokes, for 45 years Alcohol Use Standard Drinks/Week Comments No 0 (1 standard drink = 0.6 oz pur e alcohol) [facility] Utilities Answer Date Recorded In the past 12 months has [employer] electric, gas, oil, or water company threatened [...] Visit [facility] RHEUMATOLOGY 330 [facility] 100 [place] [address] John Sheppard DICTAPHONE TRANSCRIBER 330 [facility] 100 [place], [place] [address] 06/13/2025 10:00 AM EDT Office Visit [facility] UROLOGY 1760 [place] [address] Sanam Saunders, DICTAPHONE TRANSCRIBER [address] [address] 07/01/2025 11:00 AM EDT Office Visit [facility] UROLOGY [address] [address] Brennan Lee MD [address] [address] 07/18/2025 11:30 AM EDT Appointment [facility] OUTPATIENT ONCOLOGY 1740 [place] [address] 07/31/2025 10:00 AM EDT Office Visit [facility] PULMONARY & CRITICAL CARE MEDICINE 3000 [facility] 240 [place] [address] Maxine Gibson, DICTAPHONE TRANSCRIBER [address] [place] [address] documented as of this encounter Goals Goal [...] documented as of this encounter Care Teams Ritual Circumciser Relationship Specialty Start Date End Date Reza Panchal MD 1210 [place] [address] PCP - General Family Medicine 09/30/24 documented as of this encounter
--- OUTSIDE RECORDS SUMMARY | 2025-06-03 12:10 | XMS_ITS | Encounter Summary ---
Author Organization [facility] Address [address] [place] [address] Care Team Providers Care Sales Support Technician Name Role Phone Reza Panchal MD Primary Care Provider +1- [phone] Reason for Visit * Reason Onset Date Comments MED QUESTION 03/27/2025 Encounter Details Date Type Department Care Team (Late st Contact Info) Description 03/27/2025 Telephone [facility] UROLOGY 1760 [place] [address] Brennan Santillan MD 1760 [place] [address] MED QUESTION Social History Tobacco Use Types Packs/Day Years Used Date Smoking Tobacco: Never Passive Smoke Exposure: Past Smokeless Tobacco: Never Comments: smokes, for 45 years Alcohol Use Standard Drinks/Week Comments No 0 (1 standard drink = 0.6 oz pur e alcohol) [facility] Utilities Answer Date Recorded In the past 12 months has [employer], gas, oil, or water company threatened to [...] or training? Not on file Preferred Language Maori 01/28/2025 PHQ-2 Answer Date Recorded Retired PHQ-9: [...] Relationship: GRAND DAUGHTER Best call back number: [phone] What is the best time to reach [...] it okay if the provider responds through [employer]: YES documented in this encounter Plan of Treatment Upcoming Encounters Date Type Department Care Team (Late st Contact Info) Description 06/05/2025 10:45 AM EDT Office Visit [facility] RHEUMATOLOGY [address] [address] John Sheppard APRN [address] [address] 06/13/2025 10:00 AM EDT Office Visit [facility] UROLOGY [address] [address] Sanam Saunders APRN [address] [address] 07/01/2025 11:00 AM EDT Office Visit [facility] UROLOGY [address] [place] [address] Brennan Santillan MD 1760 [facility] 502 [place] [address] 07/18/2025 11:30 AM EDT Appointment [facility] OUTPATIENT ONCOLOGY [address] [place] [phone] 07/31/2025 10:00 AM EDT Office Visit [facility] PULMONARY & CRITICAL CARE MEDICINE 3000 [facility] 240 [place] [address] Maxine Gibson, TAIL TRIMMER [address] [place] [phone] documented as of this encounter Goals Goal [...] as of this encounter Care Teams Sales Support Technician Relationship Specialty Start Date End Date Reza Panchal MD [facility] [place] [address] PCP - General Family Medicine 09/30/24 documented as of this encounter
--- OUTSIDE RECORDS SUMMARY | 2025-06-03 12:10 | XMS_ITS | Encounter Summary ---
[facility] Address [address] [place] [phone] Care Team Providers Care Planimeter Operator Name Role Phone Reza Panchal MD Primary Care Provider +1- [phone] Encounter Details Date Type Department Care Team (Late st Contact Info) Description 05/16/2025 Results Follow-Up [facility] UROLOGY 3000 [facility] 340 [place] [address] Sanam Saunders APRN 1760 [place] [address] Social History Tobacco Use Types Packs/Day Years Used Date Smoking Tobacco: Never Passive Smoke Exposure: Past Smokeless Tobacco: Never Comments: smokes, for 45 years Alcohol Use Standard Drinks/Week Comments No 0 (1 standard drink = 0.6 oz pur e alcohol) [facility] Utilities Answer Date Recorded In the past 12 months has [employer] electric, gas, oil, or water company threatened [...] or training? Not on file Preferred Language Mauritian 01/28/2025 PHQ-2 Answer Date Recorded Retired PHQ-9: [...] Description 06/05/2025 10:45 AM EDT Office Visit [facility] RHEUMATOLOGY 330 [facility] 100 [place] [phone] John Sheppard, RITUAL CIRCUMCISER 330 [facility] 100 [place] [address] 06/13/2025 10:00 AM EDT Office Visit [facility] UROLOGY [address] [address] Sanam Saunders, RITUAL CIRCUMCISER [address] [address] 07/01/2025 11:00 AM EDT Office Visit [facility] UROLOGY [address] [address] Brennan Lee MD [address] [address] 07/18/2025 11:30 AM EDT Appointment [facility] OUTPATIENT ONCOLOGY 1740 [place] [address] 07/31/2025 10:00 AM EDT Office Visit [facility] PULMONARY & CRITICAL CARE MEDICINE 3000 [facility] 240 [place] [address] Maxine Gibson, RITUAL CIRCUMCISER 2400 [place] [address] documented as of this encounter Goals Goal [...] documented as of this encounter Care Teams Planimeter Operator Relationship Specialty Start Date End Date Reza Panchal MD [id number] [address] [address] PCP - General Family Medicine 09/30/24 documented as of this encounter
--- OUTSIDE RECORDS SUMMARY | 2025-06-03 12:11 | XMS_ITS | Encounter Summary ---
Author Organization [facility] Address [address] [place] [address] Care Team Providers Care Salesforce Developer Name Role Phone Reza Panchal MD Primary Care Provider +1- [phone] Encounter Details Date Type Department Care Team (Late st Contact Info) Description 01/15/2025 Results Follow-Up [facility] RHEUMATOLOGY [address] [address] Patrice Santana DO 330 [place] [phone] Social History Tobacco Use Types Packs/Day Years Used Date Smoking Tobacco: Never Passive Smoke Exposure: Past Smokeless Tobacco: Never Comments: smokes, for 45 years Alcohol Use Standard Drinks/Week Comments No 0 (1 standard drink = 0.6 oz pur e alcohol) [facility] Utilities Answer Date Recorded In the past 12 months has [employer], gas, oil, or water [employer] threatened to shut off services in your [...] training? Not on file Preferred Language Turkmen 05/28/2024 PHQ-2 Answer Date Recorded Retired PHQ-9: [...] Visit [facility] RHEUMATOLOGY 330 [facility] 100 [place] [address] John Sheppard, BAIL BONDING AGENT 330 [facility] 100 [place] [address] 06/13/2025 10:00 AM EDT Office Visit [facility] UROLOGY [address] [address] Sanam Saunders, BAIL BONDING AGENT [address] [address] 07/01/2025 11:00 AM EDT Office Visit [facility] UROLOGY [address] [address] Brennan Lee MD [address] [address] 07/18/2025 11:30 AM EDT Appointment [facility] OUTPATIENT ONCOLOGY 1740 [place] [phone] 07/31/2025 10:00 AM EDT Office Visit [facility] PULMONARY & CRITICAL CARE MEDICINE 3000 [facility] 240 [place] [phone] Maxine Gibson, BAIL BONDING AGENT [address] [place] [address] documented as of this encounter Goals Goal [...] documented as of this encounter Care Teams Salesforce Developer Relationship Specialty Start Date End Date Reza Panchal MD [facility] [place] [address] PCP - General Family Medicine 09/30/24 documented as of this encounter
--- OUTSIDE RECORDS SUMMARY | 2025-06-03 12:11 | XMS_ITS | Encounter Summary ---
Author Organization [facility] Address [address] [place] [address] Care Team Providers Care Family Service Worker Name Role Phone Reza Panchal MD Primary Care Provider +1- [phone] Encounter Details Date Type Department Care Team (Late st Contact Info) Description 08/17/2024 Ophth Exam [facility] Pediatric[facility] [address] [place] [address] Tian Ramírez MD [address] [place] [address] Social History Tobacco Use Types Packs/Day [...] on filedocumented in this encounter Care Teams Family Service Worker Relationship Specialty Start Date End Date Reza Panchal MD [address] [place] [address] PCP - General 08/17/24 documented as of this encounter
--- OUTSIDE RECORDS SUMMARY | 2025-06-03 12:11 | XMS_ITS | Encounter Summary ---
[facility] Organization [facility] Address [address] [place] [address] Care Team Providers Care Corn Shredder Name Role Phone Reza Panchal MD Primary Care Provider +1- [phone] Encounter Details Date Type Department Care Team (Late st Contact Info) Description 05/06/2025 Telephone [facility] GASTROENTEROLOGY [address] [address] Robert Graham, PAArnaldoC 1720 [facility] [address] [place] [address] Social History Tobacco Use Types Packs/Day Years Used Date Smoking Tobacco: Never Passive Smoke Exposure: Past Smokeless Tobacco: Never Comments: smokes, for 45 years Alcohol Use Standard Drinks/Week Comments No 0 (1 standard drink = 0.6 oz pur e alcohol) [facility] Utilities Answer Date Recorded In the past 12 months has [employer] electric, gas, oil, or water company threatened [...] encounter Miscellaneous Notes * Telephone Encounter - Sarah Julienon HEMAL Ruelas - 05/06/2025 3:30 PM EDT I SPOKE WITH DANIEL PATIENT'S GRANDDAUGHTER. INFORMED HER THAT ROBERT WANTS PATIENT TO HAVE EGD FIRST BEFORE ANY ADDITIONAL TESTS. DANIEL VOICED UNDERSTANDING. documented in this encounter Plan of Treatment Upcoming Encounters Date Type Department Care Team (Late st Contact Info) Description 06/05/2025 10:45 AM EDT Office Visit [facility] RHEUMATOLOGY [address] [phone] John Sheppard, WEB PROJECT MANAGER [address] [address] 06/13/2025 10:00 AM EDT Office Visit [facility] UROLOGY [address] [address] Sanam Saunders, WEB PROJECT MANAGER 1760 [facility] [address] [place] [address] 07/01/2025 11:00 AM EDT Office Visit [facility] UROLOGY [address] [phone] Brennan Lee MD [address] [address] 07/18/2025 11:30 AM EDT Appointment [facility] OUTPATIENT ONCOLOGY [address] [place] [phone] 07/31/2025 10:00 AM EDT Office Visit [facility] PULMONARY & [facility]ARE MEDICINE [address] [facility] [address] [place] [address] Maxine Gibson, WEB PROJECT MANAGER [address] [place] [address] documented as of this encounter Goals Goal [...] documented as of this encounter Care Teams Corn Shredder Relationship Specialty Start Date End Date Reza Panchal MD [address] [place] [address] PCP - General Family Medicine 09/30/24 documented as of this encounter
--- OUTSIDE RECORDS SUMMARY | 2025-06-03 12:11 | XMS_ITS | Encounter Summary ---
[facility] Address [address] [place] [address] Care Team Providers Care Furnace Puncher Name Role Phone Reza Panchal MD Primary Care Provider +1- [phone] Encounter Details Date Type Department Care Team (Late st Contact Info) Description 05/07/2025 Results Follow-Up [facility] AT [address] [place] [address] Robert Graham, PA-C [address] [facility] [address] [place] [address] Social History Tobacco Use Types Packs/Day Years Used Date Smoking Tobacco: Never Passive Smoke Exposure: Past Smokeless Tobacco: Never Comments: smokes, for 45 years Alcohol Use Standard Drinks/Week Comments No 0 (1 standard drink = 0.6 oz pur e alcohol) [facility] Utilities Answer Date Recorded In the past 12 months has [employer] electric, gas, oil, or water company threatened [...] or training? Not on file Preferred Language Montserratian 01/28/2025 PHQ-2 Answer Date Recorded Retired PHQ-9: [...] 05/07/2025 8:36 AM EDT Results sent via [employer]. documented in this encounter Plan of Treatment Upcoming Encounters Date Type Department Care Team (Late st Contact Info) Description 06/05/2025 10:45 AM EDT Office Visit [facility] RHEUMATOLOGY [address] [address] John Sheppard APRN [address] [address] 06/13/2025 10:00 AM EDT Office Visit [facility] UROLOGY [address] [facility] [address] [place] [address] Sanam Saunders APRN [address] [facility] [address] [place], [place] [phone] 07/01/2025 11:00 AM EDT Office Visit [facility] UROLOGY [address] [facility] [address] [place], [place] [phone] Brennan Lee MD [address]60 [facility] [address] [place], [place] [phone] 07/18/2025 11:30 AM EDT Appointment [facility] OUTPATIENT ONCOLOGY [address] [place] [phone] 07/31/2025 10:00 AM EDT Office Visit [facility] PULMONARY & CRITICAL CARE MEDICINE 3000 [facility] [address] [place] [address] Maxine Gibson, PARVIZ [address] [place] [address] documented as of this encounter Goals Goal [...] reflux disease, unspecified whether esophagitis present- Primary Seropositive rheumatoid arthritis- Primary High risk [...] documented as of this encounter Care Teams Furnace Puncher Relationship Specialty Start Date End Date Reza Panchal MD [address] [place] [address] PCP - General Family Medicine 09/30/24 documented as of this encounter
--- OUTSIDE RECORDS SUMMARY | 2025-06-03 12:11 | XMS_ITS | Encounter Summary ---
Author Organization [facility] Address [address] [place] [address] Care Team Providers Care Make Up Operator Helper Name Role Phone Reza Panchal MD Primary Care Provider +1- [phone] Encounter Details Date Type Department Care Team (Latest Contact Info) Description 06/03/2025 Travel Social History Tobacco Use Types Packs/Day Years Used Date Smoking Tobacco: Never Passive Smoke Exposure: Past Smokeless Tobacco: Never Comments: smokes, for 45 years Alcohol Use Standard Drinks/Week Comments No 0 (1 standard drink = 0.6 oz pur e alcohol) [facility] Utilities Answer Date Recorded In [...] or training? Not on file Preferred Language French 01/28/2025 PHQ-2 Answer Date Recorded Retired PHQ-9: [...] Description 06/05/2025 10:45 AM EDT Office Visit [facility] RHEUMATOLOGY 330 [facility] [address] [place] [phone] John Sheppard DRUM CARRIER 330 [facility] [address] [place] [address] 06/13/2025 10:00 AM EDT Office Visit [facility] UROLOGY [address]60 [facility] [address] [place] [address] Sanam Saunders, DRUM CARRIER 1760 [facility] [address] [place], [place] [phone] 07/01/2025 11:00 AM EDT Office Visit [facility] UROLOGY 1760 [facility] [address] [place] [address] Brennan Lee MD [address] [address] 07/18/2025 11:30 AM EDT Appointment [facility] OUTPATIENT ONCOLOGY [address] [place] [phone] 07/31/2025 10:00 AM EDT Office Visit [facility] PULMONARY & CRITICAL CARE MEDICINE 3000 [facility] [address] [place] [phone] Maxine Gibson, DRUM CARRIER [address] [place] [address] documented as of this encounter Goals Goal [...] documented as of this encounter Care Teams Make Up Operator Helper Relationship Specialty Start Date End Date Reza Panchal MD [address] [place] [address] PCP - General Family Medicine 09/30/24 documented as of this encounter
--- OUTSIDE RECORDS SUMMARY | 2025-06-03 12:11 | XMS_ITS | Clinical Summary ---
Author Organization [facility] Address [address] [facility] [address] [place] [address] Phone Care Team Providers Care Ski Patrol Name Role Phone Unavailable Unavailable Conditions or Problems No information available. Medications No information available. Medications Administered No information available. Allergies, Adverse Reactions, Alerts No information available. Results No information available. Plan of Care No information available. Procedures No information available. Vital Signs No information available. Immunizations No information available. Advance Directives No information available.
--- OUTSIDE RECORDS SUMMARY | 2025-06-03 12:11 | XMS_ITS | Clinical Summary ---
Author Organization [facility] Address [address] [place] [address] Care Team Providers Care Travel Service Consultant Name Role Phone Reza Panchal MD Primary Care Provider [phone]- [phone] Allergies Active Allergy Reactions Criticality Noted Date [...] g 12 05/14/20 25 Active nystatin (MYCOSTATIN) 389017 UNIT/GM powderIndications: Yeast dermatitis,Perinea l irritation in female Apply topically to the appropriate area as directed 3 (Three) Times a Day. 60 g 3 05/14/20 25 Active pantoprazole (PROTONIX) 40 MG EC tablet Take 1 tablet by mouth 2 (Two) Times a Day. 180 tablet 3 07/01/20 24 025 Discontinu ed(Histori azalia Med - Therapy completed) fluconazole (DIFLUCAN) 150 MG tabletIndications: Infection due to 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 toxin-producing Escherichia coli (E.coli),Yeast vaginitis Take 1 tablet by mouth 1 (One) Time for 1 dose. MAY REPEAT IN 3 DAYS IF SYMPTOMATIC. 2 tablet 05/14/20 025 Active Problems Problem Noted Date Diagnosed [...] antibiotics to protect the rectal reservoir including udfg-ked-wggpygh yogurt preparations to judy oral pills containing [...] (05/14/2025 6:23 PM EDT): Orders: nystatin (MYCOSTATIN) 542147 UNIT/GM powder; Apply topically to the appropriate area as directed 3 (Three) Times a Day. POC Urinalysis Dipstick, Automated Perineal irritation in female 05/14/2025 Assessment & Plan (05/14/2025 6:23 PM EDT): Orders: nystatin (MYCOSTATIN) [id number] UNIT/GM powder; Apply topically to the appropriate [...] Angina pectoris 05/03/2019 Overview (12/31/2020): a. Remote [facility] -- data deficit: No reported disease. b. L ight [place] with medical treatment. c. [facility], 05/12/2011, Dr. Mosley: Angiographically normal coronary arteries. Diastolic dysfunction. Mitral valve prolapse. d. MPS 3--21: Left ventricular ejection fraction is normal. (Calculated [...] Encounters Date Type Department Care Team Description 06/03/2025 10:33 AM EDT Hospital Encounter [facility] [address] [place] [address] Seropositive rheumatoid arthritis; High risk medication use; Primary osteoarthritis involving multiple joints; Age-related osteoporosis without current pathological fracture; NSAID long-term use 06/03/2025 Travel 05/28/2025 Telephone [facility] GA[facility] [address] [facility] [address] [place] [phone] Ivelisse Cordon MD CANCEL PROCEDURE 05/23/2025 1:00 PM EDT - 05/23/2025 11:59 PM EDT Hospital Encounter [facility] OUTPATIENT ONCOLOGY [address] [place] [phone] Patrice Santana, Rheumatoid arthritis involving multiple sites with positive rheumatoid factor (Primary Dx) Discharge Disposition: Home or Self Care 05/23/2025 Travel 05/16/2025 Results Follow-Up [facility] UROLOGY [address] [facility] [address] [place] [address] Sanam Saunders, TIE UP WORKER 05/14/2025 2:30 PM EDT Office Visit [facility] UROLOGY [address] [facility] [address] [place] [address] Sanam Saunedrs, TIE UP WORKER Infection due to 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 toxin-producing Escherichia coli (E.coli) (Primary Dx); Yeast vaginitis; Yeast dermatitis; Perineal irritation in female; Atrophic vaginitis 05/14/2025 Travel 05/14/2025 Telephone [facility] UROLOGY [address] [facility] [address] [place] [phone] Sanam Saunders, TIE UP WORKER 05/13/2025 Prior Authorization [facility] GASTROENTEROLOGY [address] [facility] [address] [place] [address] Khadar Julien RMA VOQUENZA 10 MG PA REQUEST; APPROVAL 05/12/2025 Refill [facility] GASTROENTEROLOGY [address] [facility] [address] [place] [address] Palak Graham PA-C 05/08/2025 Telephone [facility] UROLOGY [address] [facility] [address] [place] [phone] Brennan Lee MD DR STARK - CLINICAL 05/07/2025 Results Follow-Up [facility] AT [address] [place] [address] Palak Graham PA-C 05/06/2025 12:15 PM EDT Lab [facility] AT [address] [place] [address] Esophageal dysphagia; Gastroesophageal reflux disease, unspecified whether esophagitis present 05/06/2025 10:30 AM EDT Office Visit [facility] GASTROENTEROLOGY [address] [facility] [address] [place] [address] Palak Graham PA-C Esophageal dysphagia (Primary Dx); Gastroesophageal reflux disease, unspecified whether esophagitis present; History of Araseli fundoplication; History of aspiration pneumonia 05/06/2025 Telephone [facility] GASTROENTEROLOGY [address] [facility] [address] [place] [address] Palak Graham PA-C 05/06/2025 Travel 04/29/2025 9:30 AM EDT Office Visit [facility] PULMONARY & CRITICAL CARE MEDICINE [address] [facility] [address] [place] [address] Maxine Gibson APRN Seasonal allergic rhinitis due to pollen (Primary Dx); Chronic cough; GERD without esophagitis; DEVANG (obstructive sleep apnea)/suspected nocturnal hypoxemia.-by history. Intolerant of NIPPV in past. 04/29/2025 Refill [facility] CARDIOLOGY [address] [facility] [address] [place] [address] Tristan Mosley MD Med Refill 04/29/2025 Travel 03/28/2025 12:35 PM EDT - 03/28/2025 11:59 PM EDT Hospital Encounter [facility] ONCOL[facility] [address] [place] [address] Patrice Santana DO Rheumatoid arthritis involving multiple sites with positive rheumatoid factor (Primary Dx) Discharge Disposition: Home or Self Care 03/28/2025 Travel 03/27/2025 Telephone [facility] UROLOGY [address] [place] [address] Brennan Lee MD MED QUESTION 03/26/2025 10:10 AM EDT Office Visit [facility] UROLOGY [address] [place] [address] Brennan Lee MD OAB (overactive bladder) (Primary Dx); Urge incontinence; Lower urinary tract symptoms (LUTS) 03/26/2025 Travel 03/12/2025 9:20 AM EDT Office Visit [facility] UROLOGY [address] [place] [address] Brennan Lee MD Erythema (Primary Dx) 03/12/2025 Travel 03/03/2025 Refill [facility] PRIMARY CARE [address] [place] [phone] Huyen Hall MD from Last 3 Months [...] 0.6 oz pur e alcohol) [facility] Utilities Answer Date Recorded In the [...] or training? Not on file Preferred Language Burkinan 01/28/2025 PHQ-2 Answer Date Recorded Retired PHQ-9: [...] Description 06/05/2025 10:45 AM EDT Office Visit [facility] RHEUMATOLOGY [address] [facility] [address] [place] [phone] John Sheppard, TIE UP WORKER [address] [facility] [address] [place] [address] 06/13/2025 10:00 AM EDT Office Visit [facility] UROLOGY [address] [facility] [address] [place] [address] Sanam Saunders, TIE UP WORKER [address] [facility] [address] [place] [address] 07/01/2025 11:00 AM EDT Office Visit [facility] UROLOGY [address] [facility] [address] [place] [address] Brennan Lee MD [address] [facility] [address] [place] [address] 07/18/2025 11:30 AM EDT Appointment [facility] ON[facility] [address] [place] [phone] 07/31/2025 10:00 AM EDT Office Visit [facility] PULMONARY & CRITICAL CARE MEDICINE [address] [facility] [address] [place] [address] Maxine Gibson, TIE UP WORKER [address] [place] [address] Health Maintenance Due Date Last Done Comments COLOGUARD 2002 COLON CANCER SCREENING 5 YEA R SIGMOIDOSCOPY 2002 CT COLONOGRAPHY 2002 FIT Testing (1 year) 2002 URINE MICROALBUMIN-CREATININ E RATIO (uACR) 04/13/2022 04/13/2021, 04/07/2020, 07/16/2019 TDAP/TD VACCINES (2 - Td or Tdap) 04/24/2022 012 DIABETIC FOOT EXAM 01/05/2024 01/04/2023, 0 01/04/2023, 01/04/2023, Additional history exists CLINICAL SPECIALIST PLAN OF CARE 02/07/2024 ANNUAL WELLNESS VISIT [...] day. Notes: Medical Devices Implanted Type Area Speeder Hand Device Identifier Shelf Expiration Date Model / Serial / Lot Pk Imp Trial Basic Bilat W/Ext Neurostm/Pne Ld Imp Kt - [id number] Implanted:Qty: 1 on 02/04/2025 by Brennan Lee MD at [facility] Implant N/A: Back [employer] 07/15/2025 [id number] / / [id number] Ld Neurostm Sacral Pne - [id number] Implanted:Qty: 1 on 02/04/2025 by Brennan Lee MD at [facility] Implant Back [employer] 02/20/2027 1901 / / [id number] Neurostm Sacral/Nerv [employer] Nonrechg W/Torq Wrench - [id number] Implanted:Qty: 1 on 02/20/2025 by Brennan Lee MD at [facility] Implant N/A: Back [employer] 12/12/2025 [id number] / / [id number] Kt Ld Stim Tined [employer] W/2/Sty Str/Crv - [id number] Implanted:Qty: 1 on 02/20/2025 by Brennan Lee MD at [facility] Implant N/A: Back [employer] 02/27/2027 [id number] / / [id number] Procedures Procedure Name Priority Date/Time Associated Diagnosis [...] Color Yellow Yellow, Straw, Dark Yellow, Ann [facility] Clarity, UA Slightly Cloudy(A) Clear [facility] Specific [place] 1.015 1.005 - 1.030 [facility] pH, Urine 6.0 5.0 - 8.0 [facility] Leukocytes Negative Negative [facility] Nitrite, UA Negative Negative [facility] Protein, POC Negative Negative mg/dL [facility] Glucose, UA 3+(A) Negative mg/dL [facility] Ketones, UA Negative Negative [facility] Urobilinogen, UA 0.2 E.U./dL Normal, 0.2 E.U./dL [facility] Bilirubin Negative Negative [facility] Blood, UA Negative Negative [facility] Lot Number [id number] [facility] Expiration Date 07/20/2026 [facility] Urine 05/14/2025 3:56 PM EDT us Sanam Pino-Akwa TIE UP WORKER POINT OF CARE TEST ORDAleyda HELM Final Result [facility]
[address] [place] [address], * LABS SCANNED (05/14/2025) Sanam Saunders APRN LAB BLOOD ORDERABLES Fi nal Result * TSH Rfx On Abnormal To Free T4 (05/06/2025 12:01 PM EDT) [facility] TSH 2.680 0.270 - 4.200 uIU/mL 05/06/2025 7:29 PM EDT [facility] Blood Venipuncture / Unknown 05/06/2025 12:01 PM EDT 05/06/2025 12:01 PM EDT Palak Graham PA-C LAB BLOOD ORDERABLES Final Result [facility]
[address] [place] [address], * (ABNORMAL) CBC Auto Differential (05/06/2025 12:01 PM EDT) Pathologist [facility] WBC 6.88 3.40 - 10.80 10*3/mm3 05/06/2025 [...] 26.6 - 33.0 pg 05/06/2025 6:48 PM [facility] MCHC 32.9 31.5 - 35.7 g/dL 05/06/2025 6:48 PM [facility] RDW 13.1 12.3 - 15.4 % 05/06/2025 6:48 PM T [facility] RDW-SD 44.8 37.0 - 54.0 fl 05/06/2025 6:48 PM T [facility] MPV 10.0 6.0 - 12.0 fL 05/06/2025 6:48 PM T [facility] Platelets 314 140 - 450 10*3/mm3 05/06/2025 6:48 PM T [facility] Neutrophil % 41.1(L) 42.7 - 76.0 % 05/06/2025 6:48 PM [facility] Lymphocyte % 37.1 19.6 - 45.3 % 05/06/2025 6:48 PM T [facility] Monocyte % 14.8(H) 5.0 - 12.0 % 05/06/2025 6:48 PM T [facility] Eosinophil % 5.4 0.3 - 6.2 % 05/06/2025 6:48 PM T [facility] Basophil % 0.7 0.0 - 1.5 % 05/06/2025 6:48 PM [facility] Immature Grans % 0.9(H) 0.0 - [...] Final Result [facility]
[address] [place] [address], * (ABNORMAL) Comprehensive Metabolic Panel (05/06/2025 12:01 [...] 22.0 - 29.0 mmol/L 05/06/2025 7:23 PM [facility] Calcium 9.4 8.6 - 10.5 mg/dL 05/06/2025 7:23 PM [facility] Total Protein 7.7 6.0 - 8.5 g/dL 05/06/2025 7:23 PM [facility] Albumin 4.0 3.5 - 5.2 g/dL 05/06/2025 7:23 PM [facility] ALT (SGPT) 21 1 - 33 U/L 05/06/2025 7:23 PM [facility] AST (SGOT) 18 1 - 32 U/L 05/06/2025 7:23 PM [facility] Alkaline Phosphatase 98 39 - 117 U/L 05/06/2025 7:23 PM [facility] Total Bilirubin 0.3 0.0 - 1.2 mg/dL 05/06/2025 7:23 PM [facility] Globulin 3.7 gm/dL 05/06/2025 7:23 PM [facility] A/G Ratio 1.1 g/dL 05/06/2025 7:23 PM [facility] BUN/Creatinine Ratio 20.0 7.0 - 25.0 05/06/2025 7:23 PM [facility] Anion Gap 12.7 5.0 - 15.0 mmol/L 05/06/2025 7:23 PM [facility] eGFR 75.2 >60.0 mL/min/1.7 3 05/06/2025 7:23 PM [facility] Blood Venipuncture / Unknown 05/06/2025 12:01 PM EDT 05/06/2025 12:01 PM [facility] - 05/06/2025 7:23 PM EDT GFR [...] Final Result [facility]
[address] [place] [address], * (ABNORMAL) POC Glycosylated Hemoglobin (Hb A1C) (04/15/2024 3:58 PM EDT) Pathologist [facility] Hemoglobin A1C 5.6 4.5 - 5.7 % [facility] Lot Number [id number] [facility] Expiration Date 12/31/2025 [facility] Blood 04/15/2024 3:58 PM EDT Huyen Pal MD POINT OF CARE TEST ORDERABL ES Final Result Performing Organization Address City/[facility] Co de Phone Number [facility]
[address] [place] [address], * (ABNORMAL) Hepatitis Panel, Acute (04/12/2024 11:29 AM EDT) Hepatitis B Surface Ag Non-Reacti ve Non-Reacti ve 04/13/2024 1:52 AM EDT [facility] Hep A IgM Reactive(A ) Non-Reacti ve 04/13/2024 1:52 AM EDT [facility] Hep B C IgM Non-Reacti ve Non-Reacti ve 04/13/2024 1:52 AM EDT [facility] Hepatitis C Ab Non-Reacti ve Non-Reacti ve 04/13/2024 1:52 AM EDT [facility] Blood Venipuncture / Unknown 04/12/2024 11:29 AM EDT 04/12/2024 11:32 AM EDT Narrative [facility] - 04/13/2024 1:52 AM EDT Results may be falsely decreased if patient taking Biotin. Patricemadonna Santana DO LAB BLOOD ORDERABLES F inal Result [facility]
[address] [place] [address], * DEXA Scan (04/10/2024 12:14 PM EDT) Anatomical Region Laterality Modality Other Historical Provider MD PEDRAZA CHART REVIEW TABS Maira l Result * (ABNORMAL) Lipid Panel (02/21/2024 10:20 AM EDT) Total Cholesterol 143 0 - 200 mg/dL 02/21/2024 11:45 PM EDT [facility] Triglycerides 212(H) 0 - 150 mg/dL 02/21/2024 11:45 PM EDT [facility] HDL Cholesterol 37(L) 40 - 60 mg/dL 02/21/2024 11:45 PM EDT [facility] LDL Cholesterol 71 0 - 100 mg/dL 02/21/2024 11:45 PM EDT [facility] VLDL Cholesterol 35 5 - 40 mg/dL 02/21/2024 11:45 PM EDT [facility] LDL/HDL Ratio 1.72 02/21/2024 11:45 PM EDT [facility] Blood Structure of right upper limb / Unknown Venipuncture / Unknown 02/21/2024 10:20 AM EDT 02/21/2024 10:20 AM EDT Narrative [facility] - 02/21/2024 11:45 PM EDT Cholesterol [...] Pal MD LAB BLOOD ORDERABLES Final Result [facility]
[address] [place] [address], * SCANNED - EYE EXAM (07/20/2023) Anatomical [...] signs of malignancy. us Huyen Pal MD IMG MAMMOGRAPHY ORDERABLES Final Result * POCT occult blood x 1 stool (04/13/2023 11:32 AM EDT) Fecal Occult Blood Negative Negative [facility] Lot Number [id number] [facility] Expiration Date 11/15/2024 [facility] DEVELOPER LOT NUMBER [id number] [facility] DEVELOPER EXPIRATION DATE 02/12/2025 [facility] Positive Control Positive Positive [facility] Negative Control Negative Negative [facility] Stool 04/13/2023 11:3 2 AM EDT Huyen Pal MD POINT OF CARE TEST ORDERABL ES Final Result [facility]
[address] [place] [address], * Microalbumin / Creatinine Urine Ratio - [...] 2:11 PM EDT 04/14/2021 Comment:URINE RELEASE TO [facility] Narrative [facility] (AMBULATORY) - 04/14/2021 10:09 AM EDT Performed at: - [facility] [address] [facility], [place], [place] [id number] Ticket Printer And Tagger: Jean Stephens PhD, Phone: [phone] Huyen Pal MD URINE ORDERABLES Final Resu lt [facility] [address] [place] [address], [facility] [address] [place] [address], * SCANNED - INFLUENZA (07/16/2019) Huyen Pal MD CHART REVIEW TABS Final Result * SCANNED - COLONOSCOPY (11/14/2013) Lizbeth Ibarra MD CHART REVIEW TABS Final Result from Last 3 Months or Most Recently Relevant to Health Maintenance Additional Health Concerns Infection Onset Date Last Indicated Hepatitis A 04/12/2024 04/12/2024 Insurance [employer] MEDICARE ADVANTAGE [facility] [place] MED[place] Q[place] Advance Directives Documents on File Type Date Recorded 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
--- OUTSIDE RECORDS SUMMARY | 2025-06-03 12:11 | XMS_ITS | Encounter Summary ---
Author Organization [facility] Address [address] [place] [address] Care Team Providers Care Teen Counselor Name Role Phone Reza Panchal MD Primary Care Provider [phone]- [phone] Encounter Details Date Type Department Care Team (Latest Contact Info) Description 05/06/2025 Travel Social History Tobacco Use Types Packs/Day Years Used Date Smoking Tobacco: Never Passive Smoke Exposure: Past Smokeless Tobacco: Never Comments: smokes, for 45 years Alcohol Use Standard Drinks/Week Comments No 0 (1 standard drink = 0.6 oz pur e alcohol) [facility] Utilities Answer Date Recorded In the [...] or training? Not on file Preferred Language Cymro 01/28/2025 PHQ-2 Answer Date Recorded Retired PHQ-9: [...] Visit [facility] RHEUMATOLOGY [address] [facility] [address] [place] [address] John Sheppard PROGRAM/MUSIC DIRECTOR [address] [facility] 100 [place] [address] 06/13/2025 10:00 AM EDT Office Visit [facility] UROLOGY [address] [facility] [address] [place] [address] Sanam Saunders, PROGRAM/MUSIC DIRECTOR [address] [facility] [address] [place], [place] [phone] 07/01/2025 11:00 AM EDT Office Visit [facility] UROLOGY [address] [facility] [address] [place] [address] Brennan Lee MD [address] [address] 07/18/2025 11:30 AM EDT Appointment [facility] OUTPATIENT ONCOLOGY [address] [place] [address] 07/31/2025 10:00 AM EDT Office Visit [facility] PULMONARY & CRITICAL CARE MEDICINE [address] [facility] [address] [place] [phone] Maxine Gibson, PROGRAM/MUSIC DIRECTOR [address] [place] [address] documented as of this encounter Goals Goal [...] documented as of this encounter Care Teams Teen Counselor Relationship Specialty Start Date End Date Reza Panchal MD [address] [place] [address] PCP - General Family Medicine 09/30/24 documented as of this encounter
--- OUTSIDE RECORDS SUMMARY | 2025-06-03 12:11 | XMS_ITS | Encounter Summary ---
Author Organization [facility] Address [address] [place] [address] Care Team Providers Care Content Production Specialist Name Role Phone Reza Panchal MD Primary Care Provider +1- [phone] Encounter Details Date Type Department Care Team (Latest Contact Info) Description 05/23/2025 Travel Social History Tobacco Use Types Packs/Day Years Used Date Smoking Tobacco: Never Passive Smoke Exposure: Past Smokeless Tobacco: Never Comments: smokes, for 45 years Alcohol Use Standard Drinks/Week Comments No 0 (1 standard drink = 0.6 oz pur e alcohol) [facility] Utilities Answer Date Recorded In [...] Not on file Preferred Language Citizen Of [place] 01/28/2025 PHQ-2 Answer Date Recorded Retired PHQ-9: [...] [facility] RHEUM[facility]OLOGY [address] [facility] 100 [place] [phone] John Sheppard CUSTOM FURRIER [address] [facility] [address] [place] [address] 06/13/2025 10:00 AM EDT Office Visit [facility] UROLOGY [address] [facility] [address] [place] [address] Sanam Saunders, CUSTOM FURRIER [address] [facility] [address] [place], [place] [address] 07/01/2025 11:00 AM EDT Office Visit [facility] UROLOGY [address] [facility] [address] [place] [address] Brennan Lee MD [address] [address] 07/18/2025 11:30 AM EDT Appointment [facility] OUTPATIENT ONCOLOGY [address] [place] [phone] 07/31/2025 10:00 AM EDT Office Visit [facility] PULMONARY & CRITICAL CARE MEDICINE [address] [facility] 240 [place] [phone] Maxine Gibson, CUSTOM FURRIER [address] [place] [address] documented as of this encounter Goals Goal [...] documented as of this encounter Care Teams Content Production Specialist Relationship Specialty Start Date End Date Reza Panchal MD [address] [place] [address] PCP - General Family Medicine 09/30/24 documented as of this encounter
--- OUTSIDE RECORDS SUMMARY | 2025-06-03 12:11 | XMS_ITS | Encounter Summary ---
[facility] Organization [facility] Address [address] [place] [address] Care Team Providers Care Chassis Wirer Name Role Phone Reza Panchal MD Primary Care Provider +1- [phone] Reason for Visit * Reason Comments Med Refill Encounter Details Date Type Department Care Team (Late st Contact Info) Description 03/22/2024 Refill [facility] PRIMARY CARE [address] [address] Huyen Hall MD [address] [address] Acquired hypothyroidism Social History Tobacco Use Types Packs/Day Years Used Date Smoking Tobacco: Never Smokeless Tobacco: Never Comments: smokes, for 45 years Alcohol Use Standard Drinks/Week Comments No 0 (1 standard drink = 0.6 oz pur e alcohol) [facility] Utilities Answer Date Recorded In the past 12 months has [employer] electric, gas, oil, or water company threatened [...] training? Not on file Preferred Language Libyan 01/11/2024 PHQ-2 Answer Date Recorded Retired PHQ-9: [...] Description 06/05/2025 10:45 AM EDT Office Visit [facility] RHEUMATOLOGY 330 [facility] 100 [place] [phone] John Sheppard, SCRUBBING MACHINE OPERATOR 330 [facility] 100 [place] [address] 06/13/2025 10:00 AM EDT Office Visit [facility] UROLOGY [address] [address] Sanam Saunders, SCRUBBING MACHINE OPERATOR [address] [address] 07/01/2025 11:00 AM EDT Office Visit [facility] UROLOGY [address] [facility] 502 [place] [address] Brennan Lee MD [address] [address] 07/18/2025 11:30 AM EDT Appointment [facility] OUTPATIENT ONCOLOGY [address] [phone] 07/31/2025 10:00 AM EDT Office Visit [facility] PULMONARY & CRITICAL CARE MEDICINE 3000 [facility] [address] [place] [phone] Maxine Gibson, SCRUBBING MACHINE OPERATOR [address] [place] [address] documented as of this encounter Goals Goal [...] Visit Diagnoses Diagnosis Acquired hypothyroidism Unspecified hypothyroidism Seropositive rheumatoid arthritis- Primary High risk medication [...] documented as of this encounter Care Teams Chassis Wirer Relationship Specialty Start Date End Date Reza Panchal MD [facility]0 [place] [address] PCP - General Family Medicine 09/30/24 documented as of this encounter
--- OUTSIDE RECORDS SUMMARY | 2025-06-03 12:11 | XMS_ITS | Encounter Summary ---
[facility] Address [address] [place] [address] Care Team Providers Care Genetic Physician Name Role Phone Reza Panchal MD Primary Care Provider +1- [phone] Reason for Visit * Reason Comments Med Refill Encounter Details Date Type Department Care Team (Late st Contact Info) Description 02/12/2021 Refill [facility] PRIMARY CARE [address] [address] Huyen Hall MD 2039 [facility] 100 [place] [address] Gastroesophageal reflux disease, unspecified whether esophagitis present [...] Visit [facility] RHEUMATOLOGY 330 [facility] 100 [place] [phone] John Sheppard, PARVIZ 330 [facility] 100 [place] [address] 06/13/2025 10:00 AM EDT Office Visit [facility] UROLOGY [address] [address] Sanam Saunders, COMPLETION ENGINEER 1760 [facility] [address] [place], [place] [address] 07/01/2025 11:00 AM EDT Office Visit [facility] UROLOGY [address] [address] Brennan Lee MD [address] [place] [address] 07/18/2025 11:30 AM EDT Appointment [facility] OUTPATIENT ONCOLOGY [address] [place] [address] 07/31/2025 10:00 AM EDT Office Visit [facility] PULMONARY & CRITICAL CARE MEDICINE 3000 [facility] [address] [place] [phone] Maxine Gibson, COMPLETION ENGINEER [address] [place] [address] documented as of this encounter Visit Diagnoses [...] documented as of this encounter Care Teams Genetic Physician Relationship Specialty Start Date End Date Reza Panchal MD [facility] [address] [address] PCP - General Family Medicine 09/30/24 documented as of this encounter
--- OUTSIDE RECORDS SUMMARY | 2025-06-03 12:11 | XMS_ITS ---
Author Name Ephraim RN, CAREER DEVELOPER, Leigh martinez Sarina Address [address] [address] Phone [phone] Organization [facility] Care Team Providers Care Spine Supervisor Name Role Phone Ivonne Ye Unavailable [phone] Reason for Referral Not Available Allergies, adverse [...] mg Tab TAKE 1 TABLET BY [facility] ONCE DAILY IN AM WITH [...] mg Cap TAKE 1 CAPSULE BY [facility] TWICE DAILY FOR 10 DAYS 2024-08-14 [...] EVERY 12 HOURS 2024-01-03 No Data Available Ihctkouc-[id number] [id number] Suspension SHAKE LIQUID AND INSTILL 1 DROP [...] mplaint [facility] [place], [place] 12/25/2024 Encntr for f/u exam aft trtm t for cond oth than malig neoplmSepsis, unspecified organism [facility] 7 [facility] [place] 12/25/2024 Encntr for f/u exam aft trtm t for cond oth than malig neoplmSepsis, unspecified organism [facility] 7 Day [facility] [place] 12/25/2024 Encntr for f/u exam aft trtm t for cond oth than malig neoplmSepsis, unspecified organism [facility] 7 Day [facility] [place] 12/25/2024 Encntr for f/u exam aft trtm t for cond oth than malig neoplmSepsis, unspecified organism Telephone E/M Service; 5-10 min of Medical Discussion (Audio Only) [place], 12/27/2024 Sepsis, unspecified organism Telephone E/M Service; 5-10 min of Medical Discussion (Audio Only) [place], 12/27/2024 Sepsis, unspecified organism Vital Signs Date of Collection Vitals 2024-12-25 14:07:15 BP Diastolic - 79.0 mm[Hg]BP Systolic - 143.0 mm[Hg]Heart Rate - 92.0 /min Social History Sex Female History of Procedures Procedures Service Procedure code Service date Servicing provider Phone# [facility] 7 Day Disch [id number] 2024-12-25 No Data Available No Data Avail [...] 5-10 min of Medical Discussion (Audio Only) [id number] 2024-12-27 No Data Available No Data Availa [...] getting around the house wellLana Erica is POA/crate opener - she comes over and cooks meals, cleans the house, brings her to appts and the grocery store because pt gets out of breath with too much walkingPD will be a phone visit (Cannot be the following states: [place], [place], [place], [place], [place], [place], [place], [place], [place])Pt Agreed to a post discharge visit with a [facility] Provider: with Ivelisse Reed Friday, December 27, 2024 4:00pm ESTRN reinforced availability of UC provider 24/ for 30 days after discharge and encouraged CB w/ any concerns or if pt is worse in any way. Advised pt to call to reach our staff.Needs/concerns for [facility] provider to address during PD visit: [...] review 2024-12-27 Type of Visit: [facility]: [facility] Date: 12/19/24Discharge diagnosis: [...]
--- OUTSIDE RECORDS SUMMARY | 2025-06-03 12:11 | XMS_ITS | Encounter Summary ---
[facility] Address [address] [place] [address] Care Team Providers Care Educational Assistant Name Role Phone Reza Panchal MD Primary Care Provider +1- [phone] Reason for Visit * Reason Comments Med Refill Encounter Details Date Type Department Care Team (Late st Contact Info) Description 07/03/2023 Refill [facility] PRIMARY CARE [address] [address] Huyen Hall MD [address] [address] Reactive depression; Type 2 diabetes mellitus with [...] Description 06/05/2025 10:45 AM EDT Office Visit [facility] RHEUMATOLOGY [address] [phone] John Sheppard APRN [address] [address] 06/13/2025 10:00 AM EDT Office Visit [facility] UROLOGY [address] [address] Sanam Saunders, PARVIZ 1760 [facility] [address] [place] [address] 07/01/2025 11:00 AM EDT Office Visit [facility] UROLOGY [address] [address] Brennan Lee MD [address] [facility] [address] [place] [address] 07/18/2025 11:30 AM EDT Appointment [facility] OUTPATIENT ONCOLOGY [address] [place] [address] 07/31/2025 10:00 AM EDT Office Visit [facility] PULMONARY & CRITICAL CARE MEDICINE 3000 [facility] [address] [place] [phone] Maxine Gibson, SAFE DEPOSIT BOX RENTAL CLERK [address] [place] [address] documented as of this encounter Visit Diagnoses Diagnosis Reactive depression Type 2 diabetes mellitus with hyperglycemia, without long-term current use of insulin Seropositive rheumatoid arthritis- Primary High risk medication [...] documented as of this encounter Care Teams Educational Assistant Relationship Specialty Start Date End Date Reza Panchal MD [address] [place], [place] [phone] PCP - General Family Medicine 09/30/24 documented as of this encounter
--- OUTSIDE RECORDS SUMMARY | 2025-06-03 12:11 | XMS_ITS | Encounter Summary ---
Author Organization [facility] Address [address] [place] [address] Care Team Providers Care Equipment Sales Specialist Name Role Phone Reza Panchal MD Primary Care Provider +1- [phone] Reason for Visit * Reason Onset Date Comments DR SANTILLAN - CLINICAL 05/08/2025 Encounter Details Date Type Department Care Team (Late st Contact Info) Description 05/08/2025 Telephone [facility] UROLOGY 1760 [place] [address] Brennan Santillan MD [address]60 [place] [address] DR SANTILLAN - CLINICAL Social History Tobacco Use Types Packs/Day Years Used Date Smoking Tobacco: Never Passive Smoke Exposure: Past Smokeless Tobacco: Never Comments: smokes, for 45 years Alcohol Use Standard Drinks/Week Comments No 0 (1 standard drink = 0.6 oz pur e alcohol) [facility] Utilities Answer Date Recorded In the past 12 months has [employer], gas, oil, or water company threatened [...] or training? Not on file Preferred Language Dominican 01/28/2025 PHQ-2 Answer Date Recorded Retired PHQ-9: [...] for Call: PATIENT [facility] WITH SEPSIS DUE TO UTI. PATIENT REQUESTING A FU WITH DR SANTILLAN. UTI URINARY SYMPTOMS STARTED AGAIN YESTERDAY. PLEASE ADVISE ON SCHEDULING. REACH OUT TO ERICA [phone] When was the patient last seen: 03-26-25 HUB AGENT UNABLE TO WARM TRANSFER. PLEASE REACH OUT ANA CRISTINA documented in this encounter Plan of Treatment Upcoming Encounters Date Type Department Care Team (Late st Contact Info) Description 06/05/2025 10:45 AM EDT Office Visit [facility] RHEUMATOLOGY [address] [phone] John Sheppard, PRE BILLING CLINICIAN [address] [address] 06/13/2025 10:00 AM EDT Office Visit [facility] UROLOGY [address] [address] Sanam Saunders, PRE BILLING CLINICIAN 1760 [facility] [address] [place] [phone] 07/01/2025 11:00 AM EDT Office Visit [facility] UROLOGY [address] [address] Brennan Santillan MD [address] [place] [address] 07/18/2025 11:30 AM EDT Appointment [facility] OUTPATIENT ONCOLOGY [address] [place] [address] 07/31/2025 10:00 AM EDT Office Visit [facility] PULMONARY & CRITICAL CARE MEDICINE 3000 [facility] [address] [place] [phone] Maxine Gibson, PRE BILLING CLINICIAN [address] [place] [address] documented as of this encounter Goals Goal [...] documented as of this encounter Care Teams Equipment Sales Specialist Relationship Specialty Start Date End Date Reza Panchal MD [facility] [place] [address] PCP - General Family Medicine 09/30/24 documented as of this encounter
--- OUTSIDE RECORDS SUMMARY | 2025-06-03 12:11 | XMS_ITS | Clinical Summary ---
Author Organization Healthcare Address [address] [place] [address] Care Team Providers Care Retail Team Member Name Role Phone Reza Panchal MD Primary Care Provider +1- [phone] Allergies Active Allergy Reactions Criticality Noted Date [...] file Insurance [employer] [place] Care Teams Retail Team Member Relationship Specialty Start Date End Date Reza Panchal MD [address] [place] [address] PCP - General 08/17/24
--- OUTSIDE RECORDS SUMMARY | 2025-06-03 12:11 | XMS_ITS | Encounter Summary ---
[facility] Address [address] [place] [address] Care Team Providers Care Senior Business Process Analyst Name Role Phone Reza Panchal MD Primary Care Provider +1- [phone] Reason for Visit * Reason Comments Med Refill Encounter Details Date Type Department Care Team (Late st Contact Info) Description 02/24/2023 Refill [facility] PRIMARY CARE [address] [address] Huyen Hall MD [address] [address] Type 2 diabetes mellitus with hyperglycemia, without [...] Description 06/05/2025 10:45 AM EDT Office Visit [facility] RHEUMATOLOGY [address] [phone] John Sheppard, PARVIZ [address] [address] 06/13/2025 10:00 AM EDT Office Visit [facility] UROLOGY [address] [place] [address] Sanam Saunders, MATCHBOOK ASSEMBLER 1760 [facility] [address] [place], [place] [address] 07/01/2025 11:00 AM EDT Office Visit [facility] UROLOGY [address] [address] Brennan Lee MD [address] [facility] 502 [place] [address] 07/18/2025 11:30 AM EDT Appointment [facility] OUTPATIENT ONCOLOGY [address] [place] [address] 07/31/2025 10:00 AM EDT Office Visit [facility] PULMONARY & CRITICAL CARE MEDICINE 3000 [facility] 240 [place] [phone] Maxine Gibson, MATCHBOOK ASSEMBLER [address] [place] [address] documented as of this encounter Visit Diagnoses [...] as of this encounter Care Teams Senior Business Process Analyst Relationship Specialty Start Date End Date Reza Panchal MD [address] [phone] PCP - General Family Medicine 09/30/24 documented as of this encounter
--- OUTSIDE RECORDS SUMMARY | 2025-06-03 12:12 | XMS_ITS | Encounter Summary ---
[facility] Address [address] [place] [address] Care Team Providers Care Donor Recruiter Name Role Phone Reza Panchal MD Primary Care Provider +1- [phone] Reason for Visit * Reason Onset Date Comments CANCEL PROCEDURE 05/28/2025 Encounter Details Date Type Department Care Team (Late st Contact Info) Description 05/28/2025 Telephone [facility] GASTROENTEROLOGY [address] [address] Ivelisse Cordon MD 1720 [place] [address] CANCEL PROCEDURE Social History Tobacco Use Types Packs/Day Years Used Date Smoking Tobacco: Never Passive Smoke Exposure: Past Smokeless Tobacco: Never Comments: smokes, for 45 years Alcohol Use Standard Drinks/Week Comments No 0 (1 standard drink = 0.6 oz pur e alcohol) [facility] Utilities Answer Date Recorded In the past 12 months has [employer], gas, oil, or water company threatened to [...] encounter Miscellaneous Notes * Telephone Encounter - Eliana Ibarra RegSched Rep - 05/28/2025 11:59 AM EDT Caller: ERICA THRASHER Relationship to patient: Emergency Contact Best call back number: [phone] Chief complaint: CANCEL PROCEDURE Type of visit: EGD Requested date: NONE If rescheduling, when is the original appointment: 06/23/2025 Additional notes:PT HAD TO HAVE EGD DONE WHILE IN THE HOSPITAL. PLEASE CANCEL PROCEDURE documented in this encounter Plan of Treatment Upcoming Encounters Date Type Department Care Team (Late st Contact Info) Description 06/05/2025 10:45 AM EDT Office Visit [facility] RHEUMATOLOGY [address] [phone] John Sheppard, WALLCOVERING TEXTURER [address] [address] 06/13/2025 10:00 AM EDT Office Visit [facility] UROLOGY [address] [address] Sanam Saunders, WALLCOVERING TEXTURER 1760 [facility] [address] [place] [address] 07/01/2025 11:00 AM EDT Office Visit [facility] UROLOGY [address] [address] Brennan Lee MD [address] [address] 07/18/2025 11:30 AM EDT Appointment [facility] OUTPATIENT ONCOLOGY [address] [place] [address] 07/31/2025 10:00 AM EDT Office Visit [facility] PULMONARY & CRITICAL CARE MEDICINE [address] [place] [address] Maxine Gibson, WALLCOVERING TEXTURER [address] [place] [address] documented as of this encounter Goals Goal [...] documented as of this encounter Care Teams Donor Recruiter Relationship Specialty Start Date End Date Reza Panchal MD [address] [place] [address] PCP - General Family Medicine 09/30/24 documented as of this encounter
[2025-06-03 12:47] LABS: Hematocrit 28.8 % (37.0-47.0); Hemoglobin 9.2 g/dL (12.2-16.2); Immature Granulocytes % 0.3 %; Mean Corpuscular HGB Conc 31.9 g/dL (31.8-35.4); Mean Corpuscular Hemoglobin 30.1 pg (27.0-31.2); Mean Corpuscular Volume 94.1 fl (81-99); Nucleated Red Blood Cells % 0 %; Platelet Count 301 K/mm3 (142-424); Red Blood Count 3.06 M/mm3 (4.20-5.40); Red Cell Distribution Width-SD 47.0 fL; White Blood Count 7.3 K/mm3 (4.8-10.8)
== END 2025-06-03 23:59 | disposition home or self-care (01) ==
LOC: LAB 12:06
PROVIDERS: PCP Family Medicine; Visit Provider Family Medicine
DX: J18.9 Pneumonia, unspecified organism (principal); K27.9 Peptic ulcer, site unspecified, unspecified as acute or chronic, without hemorrhage or perforation
CPT/HCPCS: 36415; 71046; 85025

== ENCOUNTER 2025-06-10 10:58 | Outpatient (CLI) | payer MEDICARE, MEDICAID, SELFPAY ==
--- OUTSIDE RECORDS SUMMARY | 2017-02-08 12:08 | XMS_ITS | Encounter Summary ---
[facility] Address [address] [place] [address] Care Team Providers Care Spotlight Operator Name Role Phone Lizbeth Ibarra MD Primary Care Provider Unav ailable Encounter Details Date Type Department Care Team (Late st Contact Info) Description 02/08/2017 12:08 PM EDT Hospital Encounter [facility] PULMONARY & CRITICAL CARE MEDICINE [address]00 [place] [phone] Social History Tobacco Use Types Packs/Day Years Used Date Smoking Tobacco: Never Passive Smoke Exposure: Past Smokeless Tobacco: Never Comments: smokes, for 45 years Alcohol Use Standard Drinks/Week Comments No 0 (1 standard drink = 0.6 oz pur e alcohol) [facility] Utilities Answer Date Recorded In the past 12 months has [employer], gas, oil, or water [employer] threatened to shut off services in your [...] or training? Not on file Preferred Language Bulgarian 01/28/2025 PHQ-2 Answer Date Recorded Retired PHQ-9: [...] 7:09 AM EDT Dary Chapin RN * [place] Suicide Severity Rating Scale (Screener/Recent Self-Report) Question Answer Date of Assessment Author 6. Suicidal Behavior (Lifetime) No 7:09 AM EDT Dary Benites RN documented as of this encounter Plan of Treatment Upcoming Encounters Date Type Department Care Team (Late st Contact Info) Description 06/13/2025 10:00 AM EDT Office Visit [facility] UROLOGY 1760 [place] [address] Sanam Saunders, TALENT ACQUISITION RELATIONSHIP MANAGER 1760 [place] [address] 07/01/2025 11:00 AM EDT Office Visit [facility] UROLOGY 1760 [place] [address] Brennan Lee MD 1760 [place] [address] 07/18/2025 11:30 AM EDT Appointment [facility] OUTPATIENT ONCOLOGY 1740 [place] [address] 07/31/2025 10:00 AM EDT Office Visit [facility] PULMONARY & CRITICAL CARE MEDICINE 3000 [facility] [address] [place] [address] Maxine Gibson, TALENT ACQUISITION RELATIONSHIP MANAGER 2400 [place] [address] 09/24/2025 9:15 AM EST Office Visit [facility] RHEUMATOLOGY [address] [address] John Sheppard APRN [address] [phone] 02/03/2026 10:45 AM EDT Office Visit [facility] RHEUMATOLOGY [address] [place] [address] [address] Patrice Santana DO [address] [phone] documented as of this encounter Goals Goal [...] PA & Lateral (02/08/2017 12:18 PM EDT) us Ebony Newsome APRN IMG DIAGNOSTIC IMAGING ORDER [...] documented as of this encounter Care Teams Spotlight Operator Relationship Specialty Start Date End Date Lizbeth Ibarra MD PCP - General 06/18/15 07/10/17 documented as of this encounter
--- OUTSIDE RECORDS SUMMARY | 2022-02-25 11:00 | XMS_ITS | Encounter Summary ---
Author Organization [facility] Address [address] [place] [address] Care Team Providers Care Margarine Maker Name Role Phone Johanna Jeffrey MD Primary Care Provider +1- [phone] Reason for Visit * Monitoring (Routine) - Closed Specialty Diagnoses / Procedures Referred By Tia t Referred To Contact Diagnoses Palpitations Dizziness Procedures Mobile Cardiac Outpatient Telemetry Cardiac Event Monitor Tiffany Maier MD 45 [place] [address] Phone: tel: fax: [facility] [address] [facility] [address] [facility] 100 [place] [address] Phone: tel: Referral ID Status Reason Start Date Expiration Date Visits Re quested Visits Authorized [id number] Closed 02/25/2022 02/25/2023 1 1 Encounter Details Date Type Department Care Team (Late st Contact Info) Description 02/25/2022 11:00 AM EDT Hospital Encounter [facility] CARDIOLOGY [address] [place] [phone] Palpitations; Dizziness Social History Tobacco Use Types Packs/Day Years Used Date Smoking Tobacco: Never Passive Smoke Exposure: Past Smokeless Tobacco: Never Comments: smokes, for 45 years Alcohol Use Standard Drinks/Week Comments No 0 (1 standard drink = 0.6 oz pur e alcohol) [facility] Utilities Answer Date Recorded In the past 12 months has th e electric, [employer], oil, or water [employer] threatened to shut off services in your [...] or training? Not on file Preferred Language Lithuanian 01/28/2025 PHQ-2 Answer Date Recorded Retired PHQ-9: [...] 7:09 AM EDT Dary Chapin RN * [place] Suicide Severity Rating Scale (Screener/Recent Self-Report) Question Answer Date of Assessment Author 6. Suicidal Behavior (Lifetime) No 7:09 AM EDT Dary Benites, RN documented as of this encounter Plan of Treatment Upcoming Encounters Date Type Department Care Team (Late st Contact Info) Description 06/13/2025 10:00 AM EDT Office Visit [facility] UROLOGY 1760 [place] [address] Sanam Saunders APRN 1760 [facility] [address] [place] [address] 07/01/2025 11:00 AM EDT Office Visit [facility] UROLOGY [address] [address] Brennan Lee MD [address] [place], [place] [address] 502 [place] [address] 07/18/2025 11:30 AM EDT Appointment [facility] OUTPATIENT ONCOLOGY [address] [place] [address] 07/31/2025 10:00 AM EDT Office Visit [facility] PULMONARY & CRITICAL CARE MEDICINE 3000 [facility] 240 [place] [phone] Maxine Gibson, DUCT LAYER [address] [place] [address] 09/24/2025 9:15 AM EST Office Visit [facility] RHEUMATOLOGY [address] [phone] John Sheppard APRN [address] [address] 02/03/2026 10:45 AM EDT Office Visit [facility] RHEUMATOLOGY [address] [phone] Patrice Santana, [address] [address] documented as of this encounter Goals Goal [...] 21 hours and 51 minutes. Total beats: [id number]. Average HR: 83. Min HR: 48. Max [...] documented as of this encounter Care Teams Margarine Maker Relationship Specialty Start Date End Date Johanna Jeffrey MD Mike [address] [address] PCP - General Internal Medicine 10/20/21 08/20/22 documented as of this encounter
--- OUTSIDE RECORDS SUMMARY | 2024-04-23 19:45 | XMS_ITS | Encounter Summary ---
[facility] [address] [place] [address] Care Team Providers Care Package Line Relief Operator Name Role Phone Rafael Pal MD, Huyen Primary Care Provider [phone] Reason for Referral * Hospital - Outpatient [...] or More Parameters Ijeoma Payne APRN [address] [place] [address] Phone: tel: fax: [facility] [address] [address] Phone: tel: fax: Referral ID Status Reason Start Date Expiration Date Visits Re quested Visits Authorized [id number] Closed 12/19/2023 12/18/2024 1 1 Reason for [...] or More Parameters Ijeoma Payne, PARVIZ [address] [facility] [address] Phone: tel: fax: [facility] [address] [address] Phone: tel: fax: Referral ID Status Reason Start Date Expiration Date Visits Re quested Visits Authorized [id number] Closed 12/19/2023 12/18/2024 1 1 Encounter Details Date Type Department Care Team (Late st Contact Info) Description 04/23/2024 7:45 PM EDT Hospital Encounter [facility] [address] [place] [address] Ijeoma Payne, PARVIZ [address] [place] [address] Dementia, unspecified dementia severity, unspecified dementia type, [...] Recorded In the past 12 months has [employer], gas, oil, or water [employer] threatened to shut off services in your [...] or training? Not on file Preferred Language Ethiopian 01/28/2025 PHQ-2 Answer Date Recorded Retired PHQ-9: [...] 7:09 AM EDT Dary Chapin RN * [place] Suicide Severity Rating Scale (Screener/Recent Self-Report) Question Answer Date of Assessment Author 6. Suicidal Behavior (Lifetime) No 7:09 AM EDT Dary Benites RN documented as of this encounter Plan of Treatment Upcoming Encounters Date Type Department Care Team (Late st Contact Info) Description 06/13/2025 10:00 AM EDT Office Visit [facility] UROLOGY [address] [place] [phone] Sanam Saunders, PARVIZ [address] [facility] [address] [place] [address] 07/01/2025 11:00 AM EDT Office Visit [facility] UROLOGY [address] [place] [address] Brennan Lee MD [address] [facility] [address] [place] [address] 07/18/2025 11:30 AM EDT Appointment [facility] [address] [place] [address] 07/31/2025 10:00 AM EDT Office Visit [facility] PULMONARY & CRITICAL CARE MEDICINE [address] [facility] [address] [place] [phone] Maxine Gibson, PHARMACY TECHNICIAN [facility] [address] [place] [address] 09/24/2025 9:15 AM EST Office Visit [facility] RHEUMATOLOGY [address] [phone] John Sheppard APRN [address] [address] 02/03/2026 10:45 AM EDT Office Visit [facility] RHEUMATOLOGY [address] [phone] Patrice Santana DO [address] [phone] documented as of this encounter Goals Goal Patient Goal Type Associated Problems Recent Progress Patient-Stated? Author Track and Manage My Blood Pressure Patient Goals No Nathalia Phelna, RN Note: Follow Up Date - not [...] agree with the interpretation. Braden To MD[facility] Critical care and Sleep medicine [...] respirations: None. 8. Bruxism: None. Ijeoma Payne PHARMACY TECHNICIAN [facility] ORDERABLES Fin al Result SLEEP [...] documented as of this encounter Care Teams Package Line Relief Operator Relationship Specialty Start Date End Date Huyen Hall MD [address] [address] PCP - General Family Medicine 08/21/22 07/25/24 documented as of this encounter
--- OUTSIDE RECORDS SUMMARY | 2025-04-29 09:30 | XMS_ITS | Encounter Summary ---
Author Organization [facility] Address [address] [place] [address] Care Team Providers Care Instrumentation Fitter Name Role Phone Reza Panchal MD Primary Care Provider +1- [phone] Reason for Visit * Reason Comments Sleep Apnea Follow up Encounter Details Date Type Department Care Team (Late st Contact Info) Description 04/29/2025 9:30 AM EDT Office Visit [facility] PULMONARY & CRITICAL CARE MEDICINE 3000 [facility] [address] [place] [address] Maxine Gibson, TIRE RECAPPING MACHINE OPERATOR [address] [place] [address] Seasonal allergic rhinitis due to pollen (Primary [...] Recorded In the past 12 months has [employer] electric, gas, oil, or water company threatened [...] or training? Not on file Preferred Language Estonian 01/28/2025 PHQ-2 Answer Date Recorded Retired PHQ-9: [...] Everywhere. * GERD in Adults: Diet Changes (Estonian) documented in this encounter Progress Notes * Maxine Gibson APRN - 04/29/2025 9:30 AM EDT [facility] Pulmonary Follow up CHIEF COMPLAINT fatigue HISTORY OF PRESENT ILLNESS Madison Castellanos is a 69 y.o.female here today for follow-up. She was last seen in the office by me in January. She was recently discharged from [facility] yesterday for aspiration pneumonia and [...] Reyna 2nd Gen 32G X 4 MM [facility], USE 1 NEEDLE THREE TIMES DAILY DIRECTED, [...] Description 06/13/2025 10:00 AM EDT Office Visit [facility] UROLOGY [address] [place] [address] Sanam Saunders APRN 1760 [facility] [address] [place] [address] 07/01/2025 11:00 AM EDT Office Visit [facility] UROLOGY 1760 [facility] 502 [place] [address] Brennan Lee MD 1760 [facility] [address] [place] [address] 07/18/2025 11:30 AM EDT Appointment [facility] OUTPATIENT ONCOLOGY 1740 [place] [address] 07/31/2025 10:00 AM EDT Office Visit [facility] PULMONARY & CRITICAL CARE MEDICINE 3000 [facility] [address] [place] [address] Maxine Gibson, TIRE RECAPPING MACHINE OPERATOR [address] [place] [address] 09/24/2025 9:15 AM EST Office Visit [facility] RHEUMATOLOGY [address] [place] [address] [phone] John Sheppard APRN [address] [address] 02/03/2026 10:45 AM EDT Office Visit [facility] RHEUMATOLOGY [address] [phone] Patrice Santana, [address] [address] documented as of this encounter Goals Goal [...] documented as of this encounter Care Teams Instrumentation Fitter Relationship Specialty Start Date End Date Reza Panchal MD [facility]0 [place] [address] PCP - General Family Medicine 09/30/24 documented as of this encounter
--- OUTSIDE RECORDS SUMMARY | 2025-05-06 10:30 | XMS_ITS | Encounter Summary ---
[facility] Address [address] [place] [address] Care Team Providers Care Aviation Operations Specialist Name Role Phone Reza Panchal MD Primary Care Provider +1- [phone] Reason for Referral * Diagnostic Medical (Routine) - Authorized Specialty Diagnoses / Procedures Referred By Tia holman Referred To Contact Gastroenterology Diagnoses Esophageal dysphagia Gastroesophageal reflux disease, unspecified whether esophagitis present Palak Graham PA-C 1720 [facility] [address] [place] [address] Phone: tel: fax: [facility] GASTROENTEROLOGY 1720 [facility] [address] [place] [address] Phone: tel: fax: Referral ID Status Reason Start Date Expiration Date Visits Requested Visits Authorized [id number] Authorized Specialty Services Required 05/06/2025 08/05/2026 1 1 Reason for Visit * Reason Comments Gastroesophageal reflux disease, esophag itis Encounter Details Date Type Department Care Team ([facility] Contact Info) Description 05/06/2025 10:30 AM EDT Office Visit [facility] GASTROENTEROLOGY 1720 [facility] [address] [place] [phone] Palak Graham PA-C [address] [place] [address] Esophageal dysphagia (Primary Dx); Gastroesophageal reflux disease, unspecified whether esophagitis present; History of Jacqui fundoplication; History of aspiration pneumonia Social History Tobacco Use Types Packs/Day Years Used Date Smoking Tobacco: Never Passive Smoke Exposure: Past Smokeless Tobacco: Never Comments: smokes, for 45 years Alcohol Use Standard Drinks/Week Comments No 0 (1 standard drink = 0.6 oz pur e alcohol) [facility] Utilities Answer Date Recorded In the past 12 months has [employer], gas, oil, or water company threatened to [...] or training? Not on file Preferred Language Turkish 01/28/2025 PHQ-2 Answer Date Recorded Retired PHQ-9: [...] Sign Reading Time Taken Comments Blood Pressure 138/70 05/06/2025 10:16 AM EDT Pulse 83 05/06/2025 10:16 AM EDT Temperature 36.1 C (97 F) 05/06/2025 10:16 AM EDT Respiratory Rate - - Oxygen Saturation 97% 05/06/2025 10:16 AM EDT Inhaled Oxygen Concentration - - Weight 90.4 kg (199 lb 6.4 oz) 05/06/2025 10:16 AM EDT Height 152.4 cm (5') 05/06/2025 10:16 AM EDT Body Mass Index 38.94 05/06/2025 10:16 AM EDT documented in this encounter Progress Notes * Palak Graham PA-C - 05/06/2025 10:30 AM EDT Images from the original note were not included. Follow Up Date: 05/06/2025 Patient Name: Madison Castellanos : 1955 Chief Complaint: Chief Complaint Patient presents with Gastroesophageal reflux disease, esophagitis History of Present Illness: Madisno Castellanos is a 69 y.o. female, who is here today for follow upon gerd and dysphagia. Past medical history includes hiatal hernia, status post nisin fundoplication, GERD, s/p umbilical hernia repair, ventral hernia repair, s/p CCY. Previously followed with Clarita Ross. Patient presents today accompanied by her granddaughter and 2 great granddaughters. Patient reportsanika was discharged from [facility] on 04/28/2025 for sepsis secondary to UTI and aspiration pneumonia. She does not have any discharge or hospital summaries with her today. Patient expl ains she is feeling better since hospitalization, but that they believe she has aspiration PNA secondary to her dysphagia. Has struggled with dysphagia for many years and does not feel it has improved.experiences with swallowing pills, food and sometimes liquids. Last saw Clarita Ross for this issue about 1 year ago. Underwent an EGD with Dr. Cordon in 06/2024. This showed Evidence of Jacqui fundoplication in the gastric fundus, wrap intact. Able to transverse. Showed evidence of diffuse moderately erythematous mucosa with stigmata of recent bleeding in gastric antrum. Normal duodenum. Bx of stomach showed mild chronic gastritis. At that time she was restarted on Protonix 40 mg BID which she has been compliant with. Reports she has not had improvement in dysphagia or reflux symptoms since then. She does not think she ever had improvement. She states her reflux is worse with carbonated beverages and spicy foods so tries to avoid. Sits up wit heating, but doesn't feel this helps. Feels the food passage get stuck in her upper mid esophagus. Denies nausea or vomiting. She will take TUMS 3-4x daily to help with her reflux. Previously she christiano tried Omeprazole and Dexilant without improvement. She has some abdominal pain, but this is from where she received shots in her abdomen for bloodthinners in the hospital. Only hurts to touch the bruise. Reports she has normal bowel movements daily with no changes. Patient denies associated fever, chills, abdominal pain, indigestion, nausea, vomiting, diarrhea, constipation, hematemesis,hematochezia, melena, bloating, weight loss or gain, dysuria, jaundice or bruising. She does feel she is hoarse. Denies smoking hx. Medical history includes angina, bradycardia, hypertension, hyperlipidemia, mitral valve prolapse, DVT, hearing loss, type 2 diabetes, hypothyroidism, obesity, retinopathy, delayed gastric emptying, GERD, hiatal hernia, hypocalcemia, depression, osteoporosis, chronic low back pain, osteoarthritis, r heumatoid arthritis, carpal tunnel, chronic pain, mild cognitive impairment DEVANG, psoriasis. EGD 06/2024 Dr. Cordon: Evidence of Jacqui fundoplication in the gastric fundus, wrap intact. Showed evidence of diffuse moderately erythematous mucosa with stigmata of recent bleeding in gastric antrum. Normal duodenum. Bxof stomach showed mild chronic gastritis. Bx: mild chronic gastritis Modified Barium Swallow + Limited upper GI 02/2024: Fluoroscopy provided for modified barium swallow, and limited upper GI series. No aspiration was seen during swallowing evaluation. Limited upper GI series demonstrated mild gastroesophageal reflux, and mild esophageal dysmotility. Please see speech therapy report for full details and recommendations. Colonoscopy 07/2023 Dr. Randolph: Anderson Bowel Prep: 8 Moderate diverticulosis Moderately enlagred internal hemorrhoids. 10 year recall. CTAP 04/2024: Somewhat nonspecific thickened and abnormal appearance of the distal esophagus, GE junction and proximal stomach, likely representing hiatal hernia with some associated distal esophagitis and/or adjacent gastritis. Underlying mass is not excluded. Endoscopy could be useful to further evaluate. No additional acute findings in the abdomen and pelvis. Diverticular changes are present without acute inflammatory signs to suggest diverticulitis. Abd surgery hx: Jacqui, ventral hernia repair, cholecystectomy Subjective Review of Systems: Review of Systems Constitutional: Negative for appetite change, chills, fever, unexpected weight gain and unexpected weight loss. HENT: Positive for trouble swallowing and voice change. Respiratory: Negative for cough, chest tightness and shortness of breath. Cardiovascular: Negative for chest pain and palpitations. Gastrointestinal: Positive for GERD and indigestion. Negative for abdominal distention, abdominal pain, blood in stool, constipation, diarrhea, nausea, rectal pain and vomiting. Neurological: Negative for dizziness and light-headedness. Medications: Current Outpatient Medications: acetaminophen (TYLENOL) 500 [...] Rfl: 2 atorvastatin (LIPITOR) 20 MG tablet, Take 1 tablet by mouth Daily., Disp: 90 tablet, Rfl: 0 BD Pen Needle Reyna 2nd Gen 32G X 4 MM [facility], USE 1 NEEDLE THREE TIMES DAILY [...] Post-menopausal, None Comment: Vishnu of cancer 02/10/20 Surgical History: Past Surgical History: Procedure Laterality [...] MD, 05/21/2011 REPLACEMENT TOTAL KNEE Left 06/15/2022 [facility] SPINAL CORD STIMULATOR IMPLANT 02/2021 SPINAL CORD STIMULATOR REMOVAL TUBAL ABDOMINAL LIGATION UMBILICAL HERNIA REPAIR VENTRAL HERNIA REPAIR 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: Past 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: Diagnosis Date [...] Goiter 1978 Hearing aid worn Heart attack 2008 History of transfusion denies any transfusion reactions [...] in december 2024 from UTI Wears glasses Objective Physical Exam: Vital Signs: There were no vitals filed for this visit. There is no height or weight on file to calculate BMI. Physical Exam Vitals reviewed. Constitutional: General: She is not in acute distress. Appearance: Normal appearance. She is obese. She is not ill-appearing. Comments: BMI 38.94 HENT: Head: Normocephalic and atraumatic. Eyes: General: No scleral icterus. Extraocular Movements: Extraocular movements intact. Pupils: Pupils are equal, round, and reactive to light. Cardiovascular: Rate and Rhythm: Normal rate and regular rhythm. Pulses: Normal pulses. Heart sounds: Normal heart sounds. Pulmonary: Effort: Pulmonary effort is normal. Breath sounds: Normal breath sounds. No wheezing. Abdominal: General: Abdomen is flat. Bowel sounds are normal. There is no distension. Palpations: Abdomen is soft. Tenderness: There is no abdominal tenderness. There is no guarding or rebound. Comments: Yellow/purple healing bruise along left lower abdomen. Lymphadenopathy: Cervical: No cervical adenopathy. Skin: General: Skin is warm. Neurological: General: No focal deficit present. Mental Status: She is alert and oriented to person, place, and time. Psychiatric: Mood and Affect: Mood normal. Assessment / Plan Assessment/Plan: There are no diagnoses linked to this encounter. GERD Esophageal dysphagia S/p Jacqui Fundoplication H/o aspiration pneumonia Request records from [facility] from recent visit from 04/24- 04/28/25.She is in no acute distress and non-toxic appearing. VSS. She is afebrile. Weight is stable. Patient has tried and failed Dexilant, Omeprazole. Currently taking Protonix 40 mg daily and needing TUMS for breakthrough symptoms. -Plan to stop Pantoprazole. Start Voquezna 10 mg. Samples given to patient. -If not noticing improvement in symptoms in next 2-3 weeks, patient will call to discuss and notifyme. - Reflux lifestyle modifications and dietary recommendations reviewed. Reflux precautions advised. -Plan to schedule repeat EGD with lack of improvement in symptoms. Discussed importance of taking Fosamax with full glass of water and remaining upright for 1 hour following taking medicine. No esophagitis on last EGD. Could consider discussing holding with PCP to see if this improves symptoms. -Recommend to avoid NSAIDs w/ hx of gastritis. - obtain CBC, CMP, Lipase - schedule for EGD. - follow up in clinic in 6 weeks, or after completion of above studies - call clinic at any time for questions or new / worsened sx -Strict ER precautions reviewed with the patient. Follow Up: Return in about 6 weeks (around 06/17/2025) for Recheck. Plan of care reviewed with the patient at the conclusion of today's visit. Education was provided regarding diagnosis, management, and any prescribed or recommended OTC medications. Patient verbalized understanding of and agreement with management plan. NOTE TO PATIENT: The Century Cures Act makes medical notes like these available to patients inthe interest of transparency. However, be advised this is a medical document. It is intended as peer to peer communication. It is written in medical language and may contain abbreviations or verbiagethat are unfamiliar. It may appear blunt or direct. Medical documents are intended to carry relevant information, facts as evident, and the clinical opinion of the practitioner. Palak Graham PA-C [facility] Gastroenterology documented in this encounter Plan of Treatment Upcoming Encounters Date Type Department Care Team (Late st Contact Info) Description 06/13/2025 10:00 AM EDT Office Visit [facility] UROLOGY 1760 [facility] 502 [place], [place] [phone] Sanam Saunders, ROLLER STAKER 1760 [facility] [address] [place] [address] 07/01/2025 11:00 AM EDT Office Visit [facility] UROLOGY 1760 [facility] [address] [place] [address] Brennan Lee MD 1760 [facility] 502 [place], [place] [id number] 07/18/2025 11:30 AM EDT Appointment [facility] OUTPATIENT ONCOLOGY 1740 [place] [phone] 07/31/2025 10:00 AM EDT Office Visit [facility] PULMONARY & CRITICAL CARE MEDICINE 3000 [facility] [address] [place] [address] Maxine Gibson, ROLLER STAKER [address] [place] [address] 09/24/2025 9:15 AM EST Office Visit [facility] RHEUMATOLOGY [address] [address] John Sheppard, ROLLER STAKER [address] [address] 02/03/2026 10:45 AM EDT Office Visit [facility] RHEUMATOLOGY [address] [address] Patrice Santana DO [address] [address] Scheduled Referrals Name Type Priority Associated Diagnoses Orde r Schedule Ambulatory referral for Screening EGD Outpatient Referral Routine Esophageal dysphagia Gastroesophageal reflux disease, unspecified whether esophagitis present Ordered: 05/06/2025 documented as of this encounter Goals Goal [...] day. Notes: documented as of this encounter Results * TSH Rfx On Abnormal To Free T4 (05/06/2025 12:01 PM EDT) TSH 2.680 0.270 - 4.200 uIU/mL 05/06/2025 7:29 PM EDT [facility] Blood Venipuncture / Unknown 05/06/2025 12:01 PM EDT 05/06/2025 12:01 PM EDT us Palak Graham PA-C LAB BLOOD ORDERABLES Final Result [facility]
[address] [place] [address], [place] [phone] * (ABNORMAL) Comprehensive Metabolic Panel (05/06/2025 12:01 PM EDT) Glucose 150(H) 65 - 99 mg/dL 05/06/2025 7:23 PM EDT [facility] BUN 17.0 8.0 - 23.0 mg/dL 05/06/2025 7:23 PM EDT [facility] Creatinine 0.85 0.57 - 1.00 mg/dL 05/06/2025 7:23 PM EDT [facility] Sodium 141 136 - 145 mmol/L 05/06/2025 7:23 PM EDT [facility] Potassium 4.0 3.5 - 5.2 mmol/L 05/06/2025 7:23 PM EDT [facility] Chloride 101 98 - 107 mmol/L 05/06/2025 7:23 PM EDT [facility] CO2 27.3 22.0 - 29.0 mmol/L 05/06/2025 7:23 PM EDT [facility] Calcium 9.4 8.6 - 10.5 mg/dL 05/06/2025 7:23 PM EDT [facility] Total Protein 7.7 6.0 - 8.5 g/dL 05/06/2025 7:23 PM EDT [facility] Albumin 4.0 3.5 - 5.2 g/dL 05/06/2025 7:23 PM EDT [facility] ALT (SGPT) 21 1 - 33 U/L 05/06/2025 7:23 PM EDT [facility] AST (SGOT) 18 1 - 32 U/L 05/06/2025 7:23 PM EDT [facility] Alkaline Phosphatase 98 39 - 117 U/L 05/06/2025 7:23 PM EDT [facility] Total Bilirubin 0.3 0.0 - 1.2 mg/dL 05/06/2025 7:23 PM EDT [facility] Globulin 3.7 gm/dL 05/06/2025 7:23 PM EDT [facility] A/G Ratio 1.1 g/dL 05/06/2025 7:23 PM EDT [facility] BUN/Creatinine Ratio 20.0 7.0 - 25.0 05/06/2025 7:23 PM EDT [facility] Anion Gap 12.7 5.0 - 15.0 mmol/L 05/06/2025 7:23 PM EDT [facility] eGFR 75.2 >60.0 mL/min/1.7 3 05/06/2025 7:23 PM EDT [facility] Blood Venipuncture / Unknown 05/06/2025 12:01 PM EDT 05/06/2025 12:01 PM EDT [facility] LABORATORY - 05/06/2025 7:23 PM EDT GFR Categories in Chronic Kidney Disease [...] does not include race as a factor us Palak Graham PA-C LAB BLOOD ORDERABLES Final Result [facility]
[address] [place] [address], documented in this encounter Visit Diagnoses Diagnosis Esophageal dysphagia- Primary Dysphagia, pharyngoesophageal phase Gastroesophageal reflux disease, unspecified whether esophagitis present History of Jacqui fundoplication History of aspiration pneumonia documented in this encounter Additional Health Concerns Infection Onset Date Last Indicated Resolved Time Hepatitis A 04/12/2024 04/12/2024 Assessment Noted Time PHQ-2 Depression Total Score: 1 05/20/20 24 11:00 AM EDT documented as of this encounter Care Teams Aviation Operations Specialist Relationship Specialty Start Date End Date Reza Panchal MD [address] [place] [address] PCP - General Family Medicine 09/30/24 documented as of this encounter
--- OUTSIDE RECORDS SUMMARY | 2025-05-06 12:15 | XMS_ITS | Encounter Summary ---
[facility] Address [address] [place] [address] Care Team Providers Care Talend Etl Developer Name Role Phone Reza Panchal MD Primary Care Provider +1- [phone] Encounter Details Date Type Department Care Team (Late st Contact Info) Description 05/06/2025 12:15 PM EDT Lab [facility]ST[facility] [place] AT [address] [place] [address] Esophageal dysphagia; Gastroesophageal reflux disease, unspecified whether esophagitis present Social History Tobacco Use Types Packs/Day Years Used Date Smoking Tobacco: Never Passive Smoke Exposure: Past Smokeless Tobacco: Never Comments: smokes, for 45 years Alcohol Use Standard Drinks/Week Comments No 0 (1 standard drink = 0.6 oz pur e alcohol) [facility] Utilities Answer Date Recorded In the past 12 months has [employer], gas, oil, or water [employer] threatened to shut off services in your [...] or training? Not on file Preferred Language Greenlandic 01/28/2025 PHQ-2 Answer Date Recorded Retired PHQ-9: [...] Description 06/13/2025 10:00 AM EDT Office Visit [facility] UROLOGY [address] [facility] [address] [place] [address] Sanam Saunders, PROFESSOR OF BUSINESS ADMINISTRATION [address] [facility] [address] [place] [id number] 07/01/2025 11:00 AM EDT Office Visit [facility] UROLOGY [address] [facility] [address] [place] [address] Brennan Lee MD [address] [address] 07/18/2025 11:30 AM EDT Appointment [facility] OUT[facility] ONCOLOGY [address] [place] [address] 07/31/2025 10:00 AM EDT Office Visit [facility] PULMONARY & CRITICAL CARE MEDICINE 3000 [facility] 240 [place] [phone] Maxine Gibson, PROFESSOR OF BUSINESS ADMINISTRATION 2400 [place] [address] 09/24/2025 9:15 AM EST Office Visit [facility] RHEUMATOLOGY [address] [address] John Sheppard PROFESSOR OF BUSINESS ADMINISTRATION [address] [facility] 100 [place] [address] 02/03/2026 10:45 AM EDT Office Visit [facility] RHEUMATOLOGY 330 [place] 100 [place] [address] Patrice Santana DO [address] [place] [address] documented as of this encounter Goals Goal Patient Goal Type Associated Problems Recent Progress Patient-Stated? Author Track and Manage My Blood Pressure Patient Goals No Ntahalia Phelan RN Note: Follow Up Date - [...] To Free T4 (05/06/2025 12:01 PM EDT) Pathologist [facility] TSH 2.680 0.270 - 4.200 uIU/mL 05/06/2025 7:29 PM EDT [facility] Blood Venipuncture / Unknown 05/06/2025 12:01 PM EDT 05/06/2025 12:01 PM EDT Palak Graham PA-C LAB BLOOD ORDERABLES Final Result [facility]
[address] [place] [address], * (ABNORMAL) CBC Auto Differential (05/06/2025 12:01 PM EDT) Pathologist [facility] WBC 6.88 3.40 - 10.80 10*3/mm3 05/06/2025 6:48 PM EDT [facility] RBC 4.42 3.77 - 5.28 10*6/mm3 05/06/2025 6:48 PM EDT [facility] Hemoglobin 13.5 12.0 - 15.9 g/dL 05/06/2025 6:48 PM EDT [facility] Hematocrit 41.0 34.0 - 46.6 % 05/06/2025 6:48 PM EDT [facility] MCV 92.8 79.0 - 97.0 fL 05/06/2025 6:48 PM EDT [facility] MCH 30.5 26.6 - 33.0 pg 05/06/2025 6:48 PM EDT [facility] MCHC 32.9 31.5 - 35.7 g/dL 05/06/2025 6:48 PM [facility] RDW 13.1 12.3 - 15.4 % 05/06/2025 6:48 PM [facility] RDW-SD 44.8 37.0 - 54.0 fl 05/06/2025 6:48 PM [facility] MPV 10.0 6.0 - 12.0 fL 05/06/2025 6:48 PM EDT [facility] Platelets 314 140 - 450 10*3/mm3 05/06/2025 6:48 PM [facility] Neutrophil % 41.1(L) 42.7 - 76.0 % 05/06/2025 6:48 PM [facility] Lymphocyte % 37.1 19.6 - 45.3 % 05/06/2025 6:48 PM [facility] Monocyte % 14.8(H) 5.0 - 12.0 % 05/06/2025 6:48 PM EDT [facility] Eosinophil % 5.4 0.3 - 6.2 % 05/06/2025 6:48 PM [facility] Basophil % 0.7 0.0 - 1.5 % 05/06/2025 6:48 PM [facility] Immature Grans % 0.9(H) 0.0 - 0.5 % 05/06/2025 6:48 PM T [facility] Neutrophils, Absolute 2.83 1.70 - 7.00 10*3/mm3 05/06/2025 6:48 PM T [facility] Lymphocytes, Absolute 2.55 0.70 - 3.10 10*3/mm3 05/06/2025 6:48 PM T [facility] Monocytes, Absolute 1.02(H) 0.10 - 0.90 10*3/mm3 05/06/2025 6:48 PM EDT [facility] Eosinophils, Absolute 0.37 0.00 - 0.40 10*3/mm3 05/06/2025 6:48 PM EDT [facility] Basophils, Absolute 0.05 0.00 - 0.20 10*3/mm3 05/06/2025 6:48 PM EDT [facility] Immature Grans, Absolute 0.06(H) 0.00 - 0.05 10*3/mm3 05/06/2025 6:48 PM EDT [facility] nRBC 0.0 0.0 - 0.2 /100 WBC 05/06/2025 6:48 PM EDT [facility] Blood Venipuncture / Unknown 05/06/2025 12:01 PM EDT 05/06/2025 12:01 PM EDT Palak Graham PA-C LAB BLOOD ORDERABLES Final Result [facility]
[address] [place] [address], * (ABNORMAL) Comprehensive Metabolic Panel (05/06/2025 12:01 [...] 8.6 - 10.5 mg/dL 05/06/2025 7:23 PM [facility] Total Protein 7.7 6.0 - 8.5 g/dL 05/06/2025 7:23 PM [facility] Albumin 4.0 3.5 - 5.2 g/dL 05/06/2025 7:23 PM [facility] ALT (SGPT) 21 1 - 33 U/L 05/06/2025 7:23 PM T [facility] AST (SGOT) 18 1 - 32 U/L 05/06/2025 7:23 PM [facility] Alkaline Phosphatase 98 39 - 117 U/L 05/06/2025 7:23 PM [facility] Total Bilirubin 0.3 0.0 - 1.2 mg/dL 05/06/2025 7:23 PM [facility] Globulin 3.7 gm/dL 05/06/2025 7:23 PM [facility] A/G Ratio 1.1 g/dL 05/06/2025 7:23 PM [facility] BUN/Creatinine Ratio 20.0 7.0 - 25.0 05/06/2025 7:23 PM [facility] Anion Gap 12.7 5.0 - 15.0 mmol/L 05/06/2025 7:23 PM [facility] eGFR 75.2 >60.0 mL/min/1.7 3 05/06/2025 7:23 PM [facility] Blood Venipuncture / Unknown 05/06/2025 12:01 PM EDT 05/06/2025 12:01 PM T [facility] - 05/06/2025 7:23 PM EDT GFR [...] Final Result [facility]
[address] [place] [address], documented in this encounter Visit Diagnoses Diagnosis Esophageal dysphagia Dysphagia, pharyngoesophageal phase Gastroesophageal reflux disease, unspecified whether esophagitis present documented in this encounter Additional Health Concerns Infection Onset Date Last Indicated Resolved Time Hepatitis A 04/12/2024 04/12/2024 Assessment Noted Time PHQ-2 Depression Total Score: 1 05/20/20 24 11:00 AM EDT documented as of this encounter Care Teams Talend Etl Developer Relationship Specialty Start Date End Date Reza Panchal MD [address] [place] [address] PCP - General Family Medicine 09/30/24 documented as of this encounter
--- OUTSIDE RECORDS SUMMARY | 2025-05-14 14:30 | XMS_ITS | Encounter Summary ---
Author Organization [facility] Address [address] [place] [address] Care Team Providers Care Head Tennis Coach Name Role Phone Reza Panchla MD Primary Care Provider [phone] Reason for Visit * Reason Comments recurrent UTI HOSPITAL FOLLOW UP E 'COLI UTI/OAB/CINDY Encounter Details Date Type Department Care Team (Late st Contact Info) Description 05/14/2025 2:30 PM EDT Office Visit [facility] [address] [address] Sanam Saunders, PARVIZ [address] [facility] [address] [place] [address] Infection due to 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 toxin-producing Escherichia coli (E.coli) (Primary Dx); Yeast vaginitis; Yeast dermatitis; Perineal irritation in female; Atrophic vaginitis Social History Tobacco Use Types Packs/Day Years Used Date Smoking Tobacco: Never Passive Smoke Exposure: Past Smokeless Tobacco: Never Tobacco Cessation:Counseling Given: Not Answered Comments: smokes, for 45 years Alcohol Use Standard Drinks/Week Comments No 0 (1 standard drink = 0.6 oz pur e alcohol) [facility] Utilities Answer Date Recorded In the past 12 months has [employer], gas, oil, or water company threatened [...] Not on file Preferred Language Citizen Of [place] 01/28/2025 PHQ-2 Answer Date Recorded Retired PHQ-9: Brief Depression Severity Measure Score 7 05/20/2024 Comments No Sex and Gender Information Value Date Recorded Sex Assigned at Female 01/09/2025 11:01 AM EDT Legal Sex Female 12:37 PM EDT Gender Identity Not on file Sexual Orientation Not on file documented as of this encounter Patient Instructions * Attachments The following attachments cannot be sent through Care Everywhere. * Urinary Tract Infection Female (Citizen Of [place]) * Vaginal Dryness and Thinning (Atrophic Vaginitis): What to Know Flai-sm-Umad (Citizen Of [place]) * Overactive Bladder in Adults: What to Know (Citizen Of [place]) documented in this encounter Progress Notes * Sanam Saunders APRN - 05/14/2025 2:30 PM EDTAssociated Problem(s): Infection due to 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 toxin-producing Escherichia coli (E.coli) MS Madison Castellanos is a 69 y.o. female post SNS device placement 04/09 for OAB, who presents for follow-up post recent hospitalization for E. coli positive UTI/sepsis. She is currently on last dose of Macrobid today and reports improvement in her prior symptoms of dysuria and burning with urination, frequency, urgency, nausea /vomiting, chills and fevers pertinent prior to hospitalization. She reports significant improvement in her prior symptoms. She reports doing relatively better on her antibiotic prophylaxis with Macrobid and would like to continue. Urinalysis in clinic today is completely negative for leukocyte Estrace, negative nitrites,negative for gross /microscopic hematuria. She has glucosuria 3+. PVR today is 3 mL bladder symptomscore of 22 PLAN We resent her urine for Guidance /culture. I will call her with results if any bacteria growth resistant to her prior therapy with Macrobid. Will Continue Macrobid 100 mg PO Daily -Suppressive Therapy. She has been encouraged to increase her p.o. fluid intake to at least 1 to 2 L daily and avoid bladder irritants such as caffeine products, spicy foods, and citrusy foods. I recommend concomitant probiotics with treatment with antibiotics to protect the rectal reservoir including gnja-hxi-lrjzezy yogurt preparations to judy oral pills containing the appropriate probiotics. Patient reports the diligent use of Probiotics. She has SNS device in place. Advised to reach out to rep post UTI treatment for interrogation if frequency, urgency and incontinence persists Will see her back in ONE month for Follow up in clinic and recheck her urinalysis at that time. She may return sooner if symptoms worsen with chills or fevers consistent with sepsis Patient/granddaughter is agreeable to plan of care. Orders: nitrofurantoin, macrocrystal-monohydrate, (MACROBID) 100 MG capsule; TAKE 1 CAPSULE BY MOUTH TWO TIMES DAILY X 7 DAYS ONLY. AFTER TAKE 1 CAPSULE NIGHTLY FOR SUPPRESSIVE THERAPY E'COLI RECURRENT UTIs fluconazole (DIFLUCAN) 150 MG tablet; Take 1 tablet by mouth 1 (One) Time for 1 dose. MAY REPEAT IN3 DAYS IF SYMPTOMATIC. estradiol (ESTRACE) 0.1 MG/GM vaginal cream; DO NOT USE SYRINGE. PUT A PEA SIZE ON INDEX FINGER. APPLY TO VAGINAL AREA 2-3X WEEKLY POC Urinalysis Dipstick, Automated * Sanam Saunders APRN - 05/14/2025 2:30 PM EDTAssociated Problem(s): Yeast vaginitis Orders: fluconazole (DIFLUCAN) 150 MG tablet; Take 1 tablet by mouth 1 (One) Time for 1 dose. MAY REPEAT IN3 DAYS IF SYMPTOMATIC. POC Urinalysis Dipstick, Automated * Sanam Saunders APRN - 05/14/2025 2:30 PM EDTAssociated Problem(s): Yeast dermatitis Orders: nystatin (MYCOSTATIN) 151227 UNIT/GM powder; Apply topically to the appropriate area as directed 3 (Three) Times a Day. POC Urinalysis Dipstick, Automated * Sanam Saunders APRN - 05/14/2025 2:30 PM EDTAssociated Problem(s): Perineal irritation in female Orders: nystatin (MYCOSTATIN) [id number] UNIT/GM powder; Apply topically to the appropriate area as directed 3 (Three) Times a Day. POC Urinalysis Dipstick, Automated * Sanam Saunders APRN - 05/14/2025 2:30 PM EDTAssociated Problem(s): Atrophic vaginitis Orders: estradiol (ESTRACE) 0.1 MG/GM vaginal cream; DO NOT USE SYRINGE. PUT A PEA SIZE ON INDEX FINGER. APPLY TO VAGINAL AREA 2-3X WEEKLY POC Urinalysis Dipstick, Automated * Sanma Saunders APRN - 05/14/2025 2:30 PM EDT Images from the original note were not included. Chief Complaint recurrent UTI (HOSPITAL FOLLOW UP E'COLI UTI/OAB/CINDY) Subjective History of Present Illness: Madison Castellanos is a 69 y.o. female with a past significant medical history(SEE CHART), who presents for 2-week follow-up, post recent hospitalization at [facility] in [place] from 04/24 - 04/28/2025 for E. coli positive UTI/Sepsis. She is currently on last dose of Macrobid today and reports improvement in her prior symptoms of dysuria and burning with urination, frequency, urgency, nausea /vomiting, chills and fevers pertinent prior to hospitalization. Patient reports she had back pain, flank pain, CVA tenderness which have all resolved. She is in no apparent discomfort upon clinic evaluation today besides vaginal itching, r edness, irritation consistent with yeast vaginitis. She also has urgency and incontinent episodes at times requiring 2-3 pads daily. This has caused some perineal/lower abdominal fold irritation consistent with yeast dermatitis. Patient was last evaluated in clinic on 03/26/[address] Lee. She is post recent SNS device placement for OAB with improvement in her prior symptoms until recently when she had a UTI. Still wears depends for Intermittent incontinent episodes. Urinalysis in clinic today is completely negative for leukocyte Estrace, negative nitrites, negative blood/microscopic hematuria. She has glucosuria 3+. PVR today is 3 mL, with bladder symptom score of 22 Objective Vital Signs: There were no vitals taken for this visit. ROS: Review of Systems Genitourinary: Positive for dysuria, flank pain, frequency, hematuria, pelvic pain, pelvic pressure, urgency and urinary incontinence. All other systems reviewed and are negative. Physical Exam Constitutional: General: She is not in acute distress. Appearance: Normal appearance. She is well-developed. She is not ill-appearing. HENT: Head: Normocephalic and atraumatic. Eyes: Pupils: Pupils are equal, round, and reactive to light. Genitourinary: Vagina: Normal. Comments: Soft nontender abdomen with no organomegaly, rigidity, guarding or tenderness. Normal butatrophic vaginal orifice. She has mild leakage with Valsalva. No significant perineal body abnormalities and a normal external anus. Perineal irritation consistent with yeast dermatitis Neurological: Mental Status: She is alert and oriented to person, place, and time. Psychiatric: Mood and Affect: Mood normal. Behavior: Behavior normal. Thought Content: Thought content normal. Judgment: Judgment normal. Result Review : Urinalysis, urine cultures, CT abdomen and pelvis RADIOLOGY (CT AND/OR KUB): CT Abdomen and Pelvis: No results found for this or any previous visit. CT Stone Protocol: No results found for this or any previous visit. KUB: No results found for this or any previous visit. LABS (3 MONTHS): Office Visit on 05/14/2025 Component Date Value Ref Range Status Color 05/14/2025 Yellow Yellow, Straw, Dark Yellow, Ann Final Clarity, UA 05/14/2025 Slightly Cloudy (A) Clear Final Specific [place] 05/14/2025 1.015 1.005 - 1.030 Final pH, Urine 05/14/2025 6.0 5.0 - 8.0 Final Leukocytes 05/14/2025 Negative Negative Final Nitrite, UA 05/14/2025 Negative Negative Final Protein, POC 05/14/2025 Negative Negative mg/dL Final Glucose, UA 05/14/2025 3+ (A) Negative mg/dL Final Ketones, UA 05/14/2025 Negative Negative Final Urobilinogen, UA 05/14/2025 0.2 E.U./dL Normal, 0.2 E.U./dL Final Bilirubin 05/14/2025 Negative Negative Final Blood, UA 05/14/2025 Negative Negative Final Lot Number 05/14/2025 [id number] Final Expiration Date 05/14/2025 07/20/2026 Final Lab on 05/06/2025 Component Date Value Ref Range Status Glucose 05/06/2025 150 (H) 65 - 99 mg/dL Final BUN 05/06/2025 17.0 8.0 - 23.0 mg/dL Final Creatinine 05/06/2025 0.85 0.57 - 1.00 mg/dL Final Sodium 05/06/2025 141 136 - 145 mmol/L Final Potassium 05/06/2025 4.0 3.5 - 5.2 mmol/L Final Chloride 05/06/2025 101 98 - 107 mmol/L Final CO2 05/06/2025 27.3 22.0 - 29.0 mmol/L Final Calcium 05/06/2025 9.4 8.6 - 10.5 mg/dL Final Total Protein 05/06/2025 7.7 6.0 - 8.5 g/dL Final Albumin 05/06/2025 4.0 3.5 - 5.2 g/dL Final ALT (SGPT) 05/06/2025 21 1 - 33 U/L Final AST (SGOT) 05/06/2025 18 1 - 32 U/L Final Alkaline Phosphatase 05/06/2025 98 39 - 117 U/L Final Total Bilirubin 05/06/2025 0.3 0.0 - 1.2 mg/dL Final Globulin 05/06/2025 3.7 gm/dL Final A/G Ratio 05/06/2025 1.1 g/dL Final BUN/Creatinine Ratio 05/06/2025 20.0 7.0 - 25.0 Final Anion Gap 05/06/2025 12.7 5.0 - 15.0 mmol/L Final eGFR 05/06/2025 75.2 >60.0 mL/min/1.73 Final WBC 05/06/2025 6.88 3.40 - 10.80 10*3/mm3 Final RBC 05/06/2025 4.42 3.77 - 5.28 10*6/mm3 Final Hemoglobin 05/06/2025 13.5 12.0 - 15.9 g/dL Final Hematocrit 05/06/2025 41.0 34.0 - 46.6 % Final MCV 05/06/2025 92.8 79.0 - 97.0 fL Final MCH 05/06/2025 30.5 26.6 - 33.0 pg Final MCHC 05/06/2025 32.9 31.5 - 35.7 g/dL Final RDW 05/06/2025 13.1 12.3 - 15.4 % Final RDW-SD 05/06/2025 44.8 37.0 - 54.0 fl Final MPV 05/06/2025 10.0 6.0 - 12.0 fL Final Platelets 05/06/2025 314 140 - 450 10*3/mm3 Final Neutrophil % 05/06/2025 41.1 (L) 42.7 - 76.0 % Final Lymphocyte % 05/06/2025 37.1 19.6 - 45.3 % Final Monocyte % 05/06/2025 14.8 (H) 5.0 - 12.0 % Final Eosinophil % 05/06/2025 5.4 0.3 - 6.2 % Final Basophil % 05/06/2025 0.7 0.0 - 1.5 % Final Immature Grans % 05/06/2025 0.9 (H) 0.0 - 0.5 % Final Neutrophils, Absolute 05/06/2025 2.83 1.70 - 7.00 10*3/mm3 Final Lymphocytes, Absolute 05/06/2025 2.55 0.70 - 3.10 10*3/mm3 Final Monocytes, Absolute 05/06/2025 1.02 (H) 0.10 - 0.90 10*3/mm3 Final Eosinophils, Absolute 05/06/2025 0.37 0.00 - 0.40 10*3/mm3 Final Basophils, Absolute 05/06/2025 0.05 0.00 - 0.20 10*3/mm3 Final Immature Grans, Absolute 05/06/2025 0.06 (H) 0.00 - 0.05 10*3/mm3 Final nRBC 05/06/2025 0.0 0.0 - 0.2 /100 WBC Final TSH 05/06/2025 2.680 0.270 - 4.200 uIU/mL Final Admission on 02/20/2025, Discharged on 02/20/2025 Component Date Value Ref Range Status WBC 02/20/2025 7.15 3.40 - 10.80 10*3/mm3 Final RBC 02/20/2025 4.33 3.77 - 5.28 10*6/mm3 Final Hemoglobin 02/20/2025 12.9 12.0 - 15.9 g/dL Final Hematocrit 02/20/2025 39.6 34.0 - 46.6 % Final MCV 02/20/2025 91.5 79.0 - 97.0 fL Final MCH 02/20/2025 29.8 26.6 - 33.0 pg Final MCHC 02/20/2025 32.6 31.5 - 35.7 g/dL Final RDW 02/20/2025 13.2 12.3 - 15.4 % Final RDW-SD 02/20/2025 43.7 37.0 - 54.0 fl Final MPV 02/20/2025 9.7 6.0 - 12.0 fL Final Platelets 02/20/2025 205 140 - 450 10*3/mm3 Final Glucose 02/20/2025 105 (H) 65 - 99 mg/dL Final BUN 02/20/2025 20 8 - 23 mg/dL Final Creatinine 02/20/2025 0.82 0.57 - 1.00 mg/dL Final Sodium 02/20/2025 136 136 - 145 mmol/L Final Potassium 02/20/2025 4.3 3.5 - 5.2 mmol/L Final Slight hemolysis detected by analyzer. Result may be falsely elevated. Chloride 02/20/2025 101 98 - 107 mmol/L Final CO2 02/20/2025 24.0 22.0 - 29.0 mmol/L Final Calcium 02/20/2025 9.0 8.6 - 10.5 mg/dL Final Total Protein 02/20/2025 7.2 6.0 - 8.5 g/dL Final Albumin 02/20/2025 4.0 3.5 - 5.2 g/dL Final ALT (SGPT) 02/20/2025 20 1 - 33 U/L Final AST (SGOT) 02/20/2025 19 1 - 32 U/L Final Alkaline Phosphatase 02/20/2025 89 39 - 117 U/L Final Total Bilirubin 02/20/2025 0.3 0.0 - 1.2 mg/dL Final Globulin 02/20/2025 3.2 gm/dL Final Calculated Result A/G Ratio 02/20/2025 1.3 g/dL Final BUN/Creatinine Ratio 02/20/2025 24.4 7.0 - 25.0 Final Anion Gap 02/20/2025 11.0 5.0 - 15.0 mmol/L Final eGFR 02/20/2025 78.5 >60.0 mL/min/1.73 Final Glucose 02/20/2025 100 70 - 130 mg/dL Final Bladder & Bowel Symptom Questionnaire How often do you usually urinate during the day ? 3 - About every 1-2 hours 2. How many timed do you urinate at night? 1 - 2 times at night 3. What is the reason that you usually urinate? 3 - Severe urge (can delay less than 10 min) 4. Once you get the urge to go, how long can you comfortably delay? 4 - Must go immediately 5. How often do you get a sudden urge that makes you galvez to the bathroom? 4 - At least once a day 6. How often does a sudden urge to urinate result in you leaking urine or wetting pads? 4 - At least once a day 7. In your opinion, how good is your bladder control? 4 - No control 8. Do you have accidental bowel leakage? [...] that may help you with your symptoms? yes Total Score 22 0-7 (Mild) 8-16 (Moderate) 17-28 (Severe) PVR-3ML Assessment and Plan Assessment & Plan Infection due to 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 toxin-producing Escherichia coli (E.coli) MS Madison Castellanos is a 69 y.o. female post SNS device placement 04/09 for OAB, who presents for follow-up post recent hospitalization for E. coli positive UTI/sepsis. She is currently on last dose of Macrobid today and reports improvement in her prior symptoms of dysuria and burning with urination, frequency, urgency, nausea /vomiting, chills and fevers pertinent prior to hospitalization. She reports significant improvement in her prior symptoms. She reports doing relatively better on her antibiotic prophylaxis with Macrobid and would like to continue. Urinalysis in clinic today is completely negative for leukocyte Estrace, negative nitrites,negative for gross /microscopic hematuria. She has glucosuria 3+. PVR today is 3 mL bladder symptomscore of 22 PLAN We resent her urine for Guidance /culture. I will call her with results if any bacteria growth resistant to her prior therapy with Macrobid. Will Continue Macrobid 100 mg PO Daily -Suppressive Therapy. She has been encouraged to increase her p.o. fluid intake to at least 1 to 2 L daily and avoid bladder irritants such as caffeine products, spicy foods, and citrusy foods. I recommend concomitant probiotics with treatment with antibiotics to protect the rectal reservoir including yson-gaq-ojnaeag yogurt preparations to judy oral pills containing the appropriate probiotics. Patient reports the diligent use of Probiotics. She has SNS device in place. Advised to reach out to rep post UTI treatment for interrogation if frequency, urgency and incontinence persists Will see her back in ONE month for Follow up in clinic and recheck her urinalysis at that time. She may return sooner if symptoms worsen with chills or fevers consistent with sepsis Patient/granddaughter is agreeable to plan of care. Orders: nitrofurantoin, macrocrystal-monohydrate, (MACROBID) 100 MG capsule; TAKE 1 CAPSULE BY MOUTH TWO TIMES DAILY X 7 DAYS ONLY. AFTER TAKE 1 CAPSULE NIGHTLY FOR SUPPRESSIVE THERAPY E'COLI RECURRENT UTIs fluconazole (DIFLUCAN) 150 MG tablet; Take 1 tablet by mouth 1 (One) Time for 1 dose. MAY REPEAT IN3 DAYS IF SYMPTOMATIC. estradiol (ESTRACE) 0.1 MG/GM vaginal cream; DO NOT USE SYRINGE. PUT A PEA SIZE ON INDEX FINGER. APPLY TO VAGINAL AREA 2-3X WEEKLY POC Urinalysis Dipstick, Automated Yeast vaginitis Orders: fluconazole (DIFLUCAN) 150 MG tablet; Take 1 tablet by mouth 1 (One) Time for 1 dose. MAY REPEAT IN3 DAYS IF SYMPTOMATIC. POC Urinalysis Dipstick, Automated Yeast dermatitis Orders: nystatin (MYCOSTATIN) [id number] UNIT/GM powder; Apply topically to the appropriate area as directed 3 (Three) Times a Day. POC Urinalysis Dipstick, Automated Perineal irritation in female Orders: nystatin (MYCOSTATIN) [id number] UNIT/GM powder; Apply topically to the appropriate area as directed 3 (Three) Times a Day. POC Urinalysis Dipstick, Automated Atrophic vaginitis Orders: estradiol (ESTRACE) 0.1 MG/GM vaginal cream; DO NOT USE SYRINGE. PUT A PEA SIZE ON INDEX FINGER. APPLY TO VAGINAL AREA 2-3X WEEKLY POC Urinalysis Dipstick, Automated EDUCATION: We discussed the types of organisms that are found in the urinary tract indicating that the vast majority are results of the patient's own gastrointestinal nelson. We discussed how many of the antibiotics that are utilized can actually exacerbate these infections by creating resistant orga nisms and there is only a very few antibiotics that are concentrated in the urine and do not affectthe rectal reservoir nor cause recurrent yeast vaginitis. We discussed the risk factors for recurrent infections being intercourse in younger patients and atrophic changes in older patients. We discussed the symptoms that are found including pain, pressure, burning, frequency, urgency suprapubic pain and painful intercourse. I discussed upper tract symptoms including fevers, chills, and indicatedthe workup would be much more aggressive if the patient were to present with recurrent infections in the face of upper tract symptomatology such as fever. Patient reports that she currently experiencing Many symptoms of urinary incontinence. Class 2 Severe Obesity (BMI >=35 and <=39.9). Obesity-related health conditions include the following: hypertension, coronary heart disease, diabetes mellitus, dyslipidemias, and GERD. Obesity is improving with lifestyle modifications. BMI is 38.94. We discussed portion control and increasingexercise. Smoking Cessation Counseling: Never a smoker. Patient does not currently use any tobacco products. Follow Up Return in about 30 days (around 06/13/2025) for Next scheduled follow up, RECURRENT UTI/DYSURIA/DETRUSSOR INSTABILITY-EVAL MACROBID. Patient was given instructions and counseling regarding her condition or for health maintenance advice. Please see specific information pulled into the AVS if appropriate. This document has been electronically signed by Sanam Saunders APRN May 14, 2025 17:55 EDT documented in this encounter Plan of Treatment Upcoming Encounters Date Type Department Care Team (Late st Contact Info) Description 06/13/2025 10:00 AM EDT Office Visit [facility] [address] [address] Sanam Saunders APRN [address] [address] 07/01/2025 11:00 AM EDT Office Visit [facility] [address] [address] Brennan Lee MD [address] [id number] 07/18/2025 11:30 AM EDT Appointment [facility] OUTPATIENT ONCOLOGY [address] [place] [address] 07/31/2025 10:00 AM EDT Office Visit [facility] PULMONARY & CRITICAL CARE MEDICINE [address] [facility] [address] [place] [address] Maxine Gibson, DOOR TO DOOR SALESMAN [address] [place] [address] 09/24/2025 9:15 AM EST Office Visit [facility] RHEUMATOLOGY [address] [address] John Sheppard APRN [address] [id number] 02/03/2026 10:45 AM EDT Office Visit [facility] RHEUMATOLOGY [address] [address] Patrice Santana DO [address] [phone] documented as of this encounter Goals Goal [...] Procedure Name Priority Date/Time Associated Diagnosis Comments POCT URINALYSIS DIPSTICK, AUTOMATED Routine 05/14/2025 3:56 PM EDT Infection due to 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 toxin-producing Escherichia coli (E.coli) Yeast vaginitis Yeast dermatitis Perineal irritation in female Atrophic vaginitis SCANNED - LABS 05/14/2025 documented in this encounter Results * (ABNORMAL) POC Urinalysis Dipstick, Automated (05/14/2025 3:56 PM EDT) Color Yellow Yellow, Straw, Dark Yellow, Ann [facility] Clarity, UA Slightly Cloudy(A) Clear [facility] Specific [place] 1.015 1.005 - 1.030 [facility] pH, Urine 6.0 5.0 - 8.0 [facility] Leukocytes Negative Negative [facility] Nitrite, UA Negative Negative [facility] Protein, POC Negative Negative mg/dL [facility] Glucose, UA 3+(A) Negative mg/dL [facility] Ketones, UA Negative Negative [facility] Urobilinogen, UA 0.2 E.U./dL Normal, 0.2 E.U./dL [facility] Bilirubin Negative Negative [facility] Blood, UA Negative Negative [facility] Lot Number [id number] [facility] Expiration Date 07/20/2026 [facility] Urine 05/14/2025 3:56 PM EDT Sanam Saunders APRN POINT OF CARE TEST ORDE VOLODYMYR Final Result [facility]
[address] [place] [address], [place] [phone] * LABS SCANNED (05/14/2025) Sanam Saunders APRN LAB BLOOD ORDERABLES Fi nal Result documented in this encounter Visit Diagnoses Diagnosis Infection due to 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 toxin-producing Escherichia coli (E.coli)- Primary Yeast vaginitis Yeast dermatitis Perineal irritation in female Atrophic vaginitis Postmenopausal atrophic vaginitis documented in this encounter Additional Health Concerns Infection Onset Date Last Indicated Resolved Time Hepatitis A 04/12/2024 04/12/2024 Assessment Noted Time PHQ-2 Depression Total Score: 1 05/20/20 24 11:00 AM EDT documented as of this encounter Care Teams Head Tennis Coach Relationship Specialty Start Date End Date Reza Panchal MD [id number] [place] [address] PCP - General Family Medicine 09/30/24 documented as of this encounter
--- OUTSIDE RECORDS SUMMARY | 2025-05-23 13:00 | XMS_ITS | Encounter Summary ---
[facility] Organization [facility] Address [address] [place] [address] Care Team Providers Care Melt House Supervisor Name Role Phone Reza Panchal MD Primary Care Provider +1- [phone] Reason for Visit * Episode Based Medications (Routine) - Closed Specialty Diagnoses / Procedures Referred By Tia holman Referred To Contact Diagnoses Rheumatoid arthritis involving multiple sites with positive rheumatoid factor Procedures MD GOLIMUMAB FOR IV USE 1MG Patrice Santana DO [address] [employer] [address] [place] [address] Phone: tel: fax: [facility] [address] [place] [address] Phone: tel: fax: Referral ID Status Reason Start Date Expiration Date Visits Re quested Visits Authorized [id number] Closed 05/06/2024 05/06/2025 1 1 Encounter Details Date Type Department Care Team (Latest Contact Info) Description 05/23/2025 1:00 PM EDT - 05/23/2025 11:59 PM EDT Hospital Encounter [facility] [address] [place] [address] Patrice Santana DO [address] [employer] [address] [place] [phone] Rheumatoid arthritis involving multiple sites with positive rheumatoid factor (Primary Dx) Discharge Disposition: Home or Self Care Social History Tobacco Use Types Packs/Day Years Used Date Smoking Tobacco: Never Passive Smoke Exposure: Past Smokeless Tobacco: Never Comments: smokes, for 45 years Alcohol Use Standard Drinks/Week Comments No 0 (1 standard drink = 0.6 oz pur e alcohol) [facility] Utilities Answer Date Recorded In the past 12 months has th e [employer], gas, oil, or water company threatened to [...] or training? Not on file Preferred Language Togolese 01/28/2025 PHQ-2 Answer Date Recorded Retired PHQ-9: [...] minutes. 25 tablet 5 01/03/2024 nystatin (MYCOSTATIN) [id number] UNIT/GM powderIndications:Y east dermatitis,Perineal irritation in female [...] Visit [facility] UROLOGY 1760 [facility] 502 [place] [address] Sanam Saunders, POWER TRANSFORMER REPAIRER 1760 [facility] 502 [place], [place] [phone] 07/01/2025 11:00 AM EDT Office Visit [facility] UROLOGY 1760 [facility] 502 [place] [address] Brennan Lee MD 1760 [facility] 502 [place] [address] 07/18/2025 11:30 AM EDT Appointment [facility] [address] [place] [address] 07/31/2025 10:00 AM EDT Office Visit [facility] PULMONARY & CRITICAL CARE MEDICINE 3000 [facility] 240 [place] [address] Maxine Gibson, POWER TRANSFORMER REPAIRER 2400 [place] [address] 09/24/2025 9:15 AM EST Office Visit [facility] RHEUMATOLOGY [address] [phone] John Sheppard, PARVIZ [address] [address] 02/03/2026 10:45 AM EDT Office Visit [facility] RHEUMATOLOGY [address] [address] Patrice Santana DO [address] [address] documented as of this encounter Goals Goal Patient Goal Type Associated Problems Recent Progress Patient-Stated? Author Track and Manage My Blood Pressure Patient Goals No Tapan, Nathalia, RN Note: Follow Up Date - not [...] documented as of this encounter Care Teams Melt House Supervisor Relationship Specialty Start Date End Date Reza Panchal MD [address] [place] [address] PCP - General Family Medicine 09/30/24 documented as of this encounter
--- OUTSIDE RECORDS SUMMARY | 2025-06-03 10:33 | XMS_ITS | Encounter Summary ---
[facility] Address [address] [place] [address] Care Team Providers Care Occ Med Physician Name Role Phone Reza Panchal MD Primary Care Provider +1- [phone] Reason for Referral * Diagnostic Imaging (Routine) - Closed Specialty Diagnoses / Procedures Referred By Contac t Referred To Contact Radiology Diagnoses Seropositive rheumatoid arthritis High risk medication use Primary osteoarthritis involving multiple joints Age-related osteoporosis without current pathological fracture NSAID long-term use Procedures DEXA Bone Density Axial Patrice Santana DO Phone: tel: fax: [facility] DEXA [address] [address] Phone: tel: Referral ID Status Reason Start Date Expiration Date Visits Re quested Visits Authorized [id number] Closed 01/30/2025 05/01/2026 1 1 Reason for Visit * Diagnostic Imaging (Routine) - Closed Specialty Diagnoses / Procedures Referred By Contac manda Referred To Contact Radiology Diagnoses Seropositive rheumatoid arthritis High risk medication use Primary osteoarthritis involving multiple joints Age-related osteoporosis without current pathological fracture NSAID long-term use Procedures DEXA Bone Density Axial Patrice Santana DO Phone: tel: fax: [facility] RO CROSSING DEXA [address] [facility] [address] [place] [address] Phone: tel: Referral ID Status Reason Start Date Expiration Date Visits Re quested Visits Authorized [id number] Closed 01/30/2025 05/01/2026 1 1 Encounter Details Date Type Department Care Team (Latest Contact Info) Description 06/03/2025 10:33 AM EDT - 06/03/2025 11:59 PM EDT Hospital Encounter [facility] DEXA YOEL [address] [place] [address] Patrice Santana DO [address] [facility] 100 [place] [id number] Seropositive rheumatoid arthritis; High risk medication use; [...] Recorded In the past 12 months has [employer], gas, oil, or water [employer] threatened to shut off services in your [...] or training? Not on file Preferred Language Mongolian 01/28/2025 PHQ-2 Answer Date Recorded Retired PHQ-9: [...] minutes. 25 tablet 5 01/03/2024 nystatin (MYCOSTATIN) [id number] UNIT/GM powderIndications:Y east dermatitis,Perineal irritation in female [...] Description 06/13/2025 10:00 AM EDT Office Visit [facility] UROLOGY [address]60 [place] [address] Sanam Saunders, LEATHER WHITENER [address] [address] 07/01/2025 11:00 AM EDT Office Visit [facility] UROLOGY [address] [place] [address] Brennan Lee MD [address] [address] 07/18/2025 11:30 AM EDT Appointment [facility] OUTPATIENT ONCOLOGY 1740 [place] [address] 07/31/2025 10:00 AM EDT Office Visit [facility] PULMONARY & CRITICAL CARE MEDICINE 3000 [facility] 240 [place] [address] Maxine Gibson, LEATHER WHITENER [address] [place] [address] 09/24/2025 9:15 AM EST Office Visit [facility] RHEUMATOLOGY 330 [facility] 100 [place] [address] John Sheppard LEATHER WHITENER 330 [facility] 100 [place] [address] 02/03/2026 10:45 AM EDT Office Visit [facility] RHEUMATOLOGY [address] [place] [address] Patrice Santana DO [address] [facility] 100 [place] [address] documented as of this encounter Goals Goal [...] fall-prevention measurements. The National Osteoporosis Foundation recommends (http://www.nof.org/hcp/practice/zqwvdvpa-lha-afsyaspe-guidelines/clinicians-christine de) that FDA-approved medical therapies be considered [...] the left hip with 95% confidence is 0.667674 gm/cm2 at the hip and 0.950318 g/cm2 at the lumbar spine. Report dictated by: Kiah Weston PA-c I have personally reviewed this case and agree with the findings above: Electronically Signed: Julito Kirkland MD 06/03/2025 4:39 PM EDT Workstation ID: [id number] Narrative 06/03/2025 4:39 PM EDT DUAL-ENERGY X-RAY [...] normal patients. According to criteria established by the[facility], patients with T-scores between 1.0 [...] exercises and fall-prevention measurements. The NationalOsteoporosis Foundation recommends(http://www.nof.org/hcp/practice/fcfxwquk-plh-ljakvxav-guidelines/clin ician s-guide) that FDA-approved medical therapies be [...] at the left hipwith 95% confidence is 0.624735 gm/cm2 at the hip and 0.000655 g/cm2 atthe lumbar spine. Report dictated by: Kiah Weston PA-c I have personally reviewed this case and agree with the findings above: Electronically Signed: Julito Kirkland MD 06/03/2025 4:39 PM EDT Workstation ID: [id number] Patrice Santana DO IMG DXA ORDERABLES Fin al [...] documented as of this encounter Care Teams Occ Med Physician Relationship Specialty Start Date End Date Reza Panchal MD [address] [place] [address] PCP - General Family Medicine 09/30/24 documented as of this encounter
--- OUTSIDE RECORDS SUMMARY | 2025-06-05 10:45 | XMS_ITS | Encounter Summary ---
Author Organization [facility] Address [address] [place] [address] Care Team Providers Care Plaster Foreman Name Role Phone Reza Panchal MD Primary Care Provider [phone]- [phone] Reason for Visit * Reason Comments Seropositive rheumatoid arthritis Encounter Details Date Type Department Care Team (Latest Contact Info) Description 06/05/2025 10:45 AM EDT Office Visit [facility] RHEUMATOLOGY [address] [address] John Sheppard APRN [address] [phone] Seropositive rheumatoid arthritis (Primary Dx); High risk [...] e alcohol) [facility] Utilities Answer Date Recorded In the past 12 months has e [employer], gas, oil, or water company threatened to [...] done before next visit. Reviewed labs from [facility]. Labs also requested. * John Sheppard APRN [...] Reyna 2nd Gen 32G X 4 MM [facility] [place], USE 1 NEEDLE THREE TIMES DAILY DIRECTED, [...] Disp: 25 tablet, Rfl: 5 nystatin (MYCOSTATIN) [id number] UNIT/GM powder, Apply topically to the appropriate [...] done before next visit. Reviewed labs from [facility]. Labs also requested. High risk medication use [...] Santana, MICH Sheppard APRN. John Sheppard APRN [facility] [place] documented in this encounter Plan of Treatment Upcoming Encounters Date Type Department Care Team (Late st Contact Info) Description 06/13/2025 10:00 AM EDT Office Visit [facility] UROLOGY [address] [place] [address] Sanam Saunders APRN [address] [place] [id number] 07/01/2025 11:00 AM EDT Office Visit [facility] UROLOGY [address] [place] [address] Brennan Lee MD [address] [address] 07/18/2025 11:30 AM EDT Appointment [facility] OUTPATIENT ONCOLOGY [address] [phone] 07/31/2025 10:00 AM EDT Office Visit [facility] PULMONARY & CRITICAL CARE MEDICINE [address] [facility] [address] [place] [phone] Maxine Gibson, COB SAWYER [address] [place] [address] 09/24/2025 9:15 AM EST Office Visit [facility] RHEUMATOLOGY [address] [phone] John Sheppard, COB SAWYER [address] [phone] 02/03/2026 10:45 AM EDT Office Visit [facility] RHEUMATOLOGY [address] [address] Patrice Santana, [address] [phone] Scheduled Orders Name Type Priority Associated Diagnoses Orde r Schedule Comprehensive Metabolic Panel Lab Routine Seropositive rheumatoid arthritis High risk medication use Expected: 08/04/2025 (Approximate), Expires: 09/05/2026 C-reactive Protein Lab Routine Seropositive rheumatoid arthritis High risk medication use Expected: 08/04/2025 (Approximate), Expires: 09/05/2026 Sedimentation Rate Lab Routine Seropositive rheumatoid arthritis High risk medication use Expected: 08/04/2025 (Approximate), Expires: 09/05/2026 CBC & Differential Lab Panel Routine Seropositive rheumatoid arthritis High risk medication use Expected: 08/04/2025 (Approximate), Expires: 09/05/2026 Hepatitis Panel, Acute Lab Routine Seropositive rheumatoid arthritis High risk medication use Fatigue, unspecified type Expected: 08/04/2025 (Approximate), Expires: 09/05/2026 documented as of this encounter Goals Goal [...] documented as of this encounter Care Teams Plaster Foreman Relationship Specialty Start Date End Date Reza Panchal MD [address] [place] [address] PCP - General Family Medicine 09/30/24 documented as of this encounter
--- NOTE | 2025-06-10 11:00 | CA_ITS ---
FINAL REPORT CLINICAL HISTORY: Bilateral lower extremity EDEMA,HX OF DVT FINDINGS: DUPLEX VENOUS SONOGRAPHY OF THE BILATERAL LOWER EXTREMITIES Multiple transverse and longitudinal scans were performed of the femoropopliteal deep venous systems, with augmentation and compression maneuvers. FINDINGS: Normal phasic flow was noted in the visualized deep venous systems. No intraluminal increased echogenicity is noted to suggest thrombus. There is normal compression and augmentation of the venous structures. No abnormal venous collaterals are seen. IMPRESSION: No evidence of deep venous thrombosis of the bilateral lower extremities. Reviewed, Interpreted and Dictated by Carolina Guerrier MD Transcribed by Ivelisse Underwood Authenticated and [facility]
--- OUTSIDE RECORDS SUMMARY | 2025-06-10 11:04 | XMS_ITS | Encounter Summary ---
Author Organization [facility] Address [address] [place] [address] Care Team Providers Care Email Production Consultant Name Role Phone Reza Panchal MD Primary Care Provider +1- [phone] Reason for Visit * Reason Onset Date Comments VOQUENZA 10 MG PA REQUEST 05/13/2025 APPROVAL 05/13/2025 Encounter Details Date Type Department Care Team (Latest Contact Info) Description 05/13/2025 Prior Authorization [facility] GASTROENTEROLOGY [address] [place] [address] Khadar Julien RMA VOQUENZA 10 MG [...] Recorded In the past 12 months has [employer], gas, oil, or water company threatened [...] Outcome Approved on May 13 by Jenni [facility] 2017 Your request has been approved Effective [...] Call us at Outcome Approved today by [facility] 2017 Your request has been approved Effective Date: 10/16/2024 Authorization Expiration Date: 10/15/2025 * Telephone Encounter - Khadar Julien RMA - 05/13/2025 2:04 PM EDT (Grewal: [id number]) PA Need Help? Call us at Status sent iconSent to Plan today Drug Voquezna 10MG tablets ePA cloud logo Form Jenni Electronic PA Form (2016 [employer]) documented in this encounter Plan of Treatment Upcoming Encounters Date Type Department Care Team (Late st Contact Info) Description 06/13/2025 10:00 AM EDT Office Visit [facility] UROLOGY [address] [address] Sanam Saunders APRN [address] [address] 07/01/2025 11:00 AM EDT Office Visit [facility] UROLOGY [address] [place] [address] Brennan Lee MD [address] [address] 07/18/2025 11:30 AM EDT Appointment [facility] OUTPATIENT ONCOLOGY [address] [place] [address] 07/31/2025 10:00 AM EDT Office Visit [facility] PULMONARY & CRITICAL CARE MEDICINE 3000 [facility] [address] [place] [address] Maxine Gibson, PROFESSOR OF MARKETING [address] [place] [address] 09/24/2025 9:15 AM EST Office Visit [facility] RHEUMATOLOGY [address] [place] [address] [address] John Sheppard APRN [address] [phone] 02/03/2026 10:45 AM EDT Office Visit [facility] RHEUMATOLOGY [address] [place] [address] [address] Patrice Santana DO [address] [phone] documented as of this encounter Goals Goal [...] documented as of this encounter Care Teams Email Production Consultant Relationship Specialty Start Date End Date Reza Panchal MD [address] [place] [address] PCP - General Family Medicine 09/30/24 documented as of this encounter
--- OUTSIDE RECORDS SUMMARY | 2025-06-10 11:04 | XMS_ITS | Encounter Summary ---
Author Organization [facility] Address [address] [place] [address] Care Team Providers Care Paver Layer Name Role Phone Reza Panchal MD Primary Care Provider +1- [phone] Encounter Details Date Type Department Care Team (Latest Contact Info) Description 05/14/2025 Travel Social History Tobacco Use Types Packs/Day Years Used Date Smoking Tobacco: Never Passive Smoke Exposure: Past Smokeless Tobacco: Never Comments: smokes, for 45 years Alcohol Use Standard Drinks/Week Comments No 0 (1 standard drink = 0.6 oz pur e alcohol) [facility] Utilities Answer Date Recorded In [...] or training? Not on file Preferred Language Gibraltarian 01/28/2025 PHQ-2 Answer Date Recorded Retired PHQ-9: [...] Description 06/13/2025 10:00 AM EDT Office Visit [facility] UROLOGY 1760 [facility] [address] [place] [address] Sanam Saunders, WIRELESS SALES ASSOCIATE 1760 [facility] [address] [place] [address] 07/01/2025 11:00 AM EDT Office Visit [facility] UROLOGY 1760 [facility] [address] [place] [address] Brennan Lee MD 1760 [facility] [address] [place] [address] 07/18/2025 11:30 AM EDT Appointment [facility] OUTPATIENT ONCOLOGY [address] [place] [phone] 07/31/2025 10:00 AM EDT Office Visit [facility] PULMONARY & CRITICAL CARE MEDICINE 3000 [facility] [address] [place] [address] Maxine Gibson, WIRELESS SALES ASSOCIATE [address] [place] [address] 09/24/2025 9:15 AM EST Office Visit [facility] RHEUMATOLOGY [address] [address] John Sheppard, WIRELESS SALES ASSOCIATE [address] [address] 02/03/2026 10:45 AM EDT Office Visit [facility] RHEUMATOLOGY [address] [address] Patrice Santana DO [address] [address] documented as of this encounter Goals Goal [...] documented as of this encounter Care Teams Paver Layer Relationship Specialty Start Date End Date Reza Panchal MD [facility] [place] [address] PCP - General Family Medicine 09/30/24 documented as of this encounter
--- OUTSIDE RECORDS SUMMARY | 2025-06-10 11:04 | XMS_ITS | Encounter Summary ---
[facility] Address [address] [place] [address] Care Team Providers Care Security Auditor Name Role Phone Reza Panchal MD Primary Care Provider +1- [phone] Encounter Details Date Type Department Care Team (Late st Contact Info) Description 05/14/2025 Telephone [facility] UROLOGY [address] [place] [address] Sanam Saunders APRN 1760 [facility] [address] [place] [address] Social History Tobacco Use Types Packs/Day Years Used Date Smoking Tobacco: Never Passive Smoke Exposure: Past Smokeless Tobacco: Never Comments: smokes, for 45 years Alcohol Use Standard Drinks/Week Comments No 0 (1 standard drink = 0.6 oz pur e alcohol) [facility] Utilities Answer Date Recorded In the past 12 months has [employer] electric, gas, oil, or water company threatened [...] VERBAL ON FILE Best call back number: [phone] Patient is needing: PT CALLED REQUESTING A LATER APPT TODAY OR FOR ANOTHER DAY THIS WEEK. PLEASE CALL TO ADVISE. THANKS. documented in this encounter Plan of Treatment Upcoming Encounters Date Type Department Care Team (Late st Contact Info) Description 06/13/2025 10:00 AM EDT Office Visit [facility] UROLOGY 1760 [place] [address] Sanam Saunders APRN [address] [place] [id number] 07/01/2025 11:00 AM EDT Office Visit [facility] UROLOGY 1760 [place] [address] Brennan Lee MD 1760 [place] [address] 07/18/2025 11:30 AM EDT Appointment [facility] OUTPATIENT ONCOLOGY 1740 [place] [address] 07/31/2025 10:00 AM EDT Office Visit [facility] PULMONARY & CRITICAL CARE MEDICINE 3000 [facility] 240 [place] [address] Maxine Gibson, GRANT MANAGER [address] [place] [address] 09/24/2025 9:15 AM EST Office Visit [facility] RHEUMATOLOGY [address] [phone] John Sheppard APRN [address] [phone] 02/03/2026 10:45 AM EDT Office Visit [facility] RHEUMATOLOGY [address] [address] Patrice Santana, [address] [phone] documented as of this encounter Goals Goal [...] documented as of this encounter Care Teams Security Auditor Relationship Specialty Start Date End Date Reza Panchal MD [address] [place] [address] PCP - General Family Medicine 09/30/24 documented as of this encounter
--- OUTSIDE RECORDS SUMMARY | 2025-06-10 11:04 | XMS_ITS | Encounter Summary ---
[facility] Address [address] [place] [address] Care Team Providers Care Psychological Operations Specialist Name Role Phone Reza Panchal MD Primary Care Provider +1- [phone] Reason for Visit * Reason Onset Date Comments Med Refill 05/12/2025 Encounter Details Date Type Department Care Team (Late st Contact Info) Description 05/12/2025 Refill [facility] GASTROENTEROLOGY [address] [address] Palak Graham PA-C 1720 [facility] [address] [place] [address] Social History Tobacco Use Types Packs/Day Years Used Date Smoking Tobacco: Never Passive Smoke Exposure: Past Smokeless Tobacco: Never Comments: smokes, for 45 years Alcohol Use Standard Drinks/Week Comments No 0 (1 standard drink = 0.6 oz pur e alcohol) [facility] Utilities Answer Date Recorded In the past 12 months has [employer] electric, gas, oil, or water company threatened [...] or training? Not on file Preferred Language South Korean 01/28/2025 PHQ-2 Answer Date Recorded Retired [...] Visit [facility] UROLOGY 1760 [facility] 502 [place] [address] Saanm Saunders, IMPLEMENTATION MANAGER [address] [address] 07/01/2025 11:00 AM EDT Office Visit [facility] UROLOGY [address] [address] Brennan Lee MD [address] [address] 07/18/2025 11:30 AM EDT Appointment [facility] OUTPATIENT ONCOLOGY 1740 [place] [address] 07/31/2025 10:00 AM EDT Office Visit [facility] PULMONARY & CRITICAL CARE MEDICINE 3000 [facility] 240 [place] [address] Maxine iGbson, IMPLEMENTATION MANAGER 2400 [place] [address] 09/24/2025 9:15 AM EST Office Visit [facility] RHEUMATOLOGY 330 [facility] 100 [place] [address] John Sheppard IMPLEMENTATION MANAGER 330 [facility] 100 [place] [address] 02/03/2026 10:45 AM EDT Office Visit [facility] RHEUMATOLOGY [address] [place] [address] Patrice Santana DO [address] [facility] 100 [place] [address] documented as of this encounter Goals Goal [...] Noted Time PHQ-2 Depression Total Score: 1 08/05/20 24 11:00 AM EDT documented as of this encounter Care Teams Psychological Operations Specialist Relationship Specialty Start Date End Date Reza Panchal MD [facility] [place] [address] PCP - General Family Medicine 09/30/24 documented as of this encounter
--- OUTSIDE RECORDS SUMMARY | 2025-06-10 11:04 | XMS_ITS | Encounter Summary ---
[facility] Address [address] [place] [id number] Care Team Providers Care Pain Management Nurse Name Role Phone Reza Panchal MD Primary Care Provider +1- [phone] Encounter Details Date Type Department Care Team (Late st Contact Info) Description 05/16/2025 Results Follow-Up [facility] MEDICAL [facility] UROLOGY 3000 [facility] 340 [place] [address] Sanam Saunders APRN 1760 [place] [address] Social History Tobacco Use Types Packs/Day Years Used Date Smoking Tobacco: Never Passive Smoke Exposure: Past Smokeless Tobacco: Never Comments: smokes, for 45 years Alcohol Use Standard Drinks/Week Comments No 0 (1 standard drink = 0.6 oz pur e alcohol) [facility] Utilities Answer Date Recorded In the past 12 months has [employer] electric, gas, oil, or water company threatened [...] Visit [facility] UROLOGY [address] [address] Sanam Saunders, LIABILITY CLAIMS REPRESENTATIVE 1760 [facility] [address] [place] [address] 07/01/2025 11:00 AM EDT Office Visit [facility] UROLOGY [address] [address] Brennan Lee MD [address] [address] 07/18/2025 11:30 AM EDT Appointment [facility] OUTPATIENT ONCOLOGY 1740 [place] [address] 07/31/2025 10:00 AM EDT Office Visit [facility] PULMONARY & CRITICAL CARE MEDICINE 3000 [facility] 240 [place] [address] Maxine Gibson, LIABILITY CLAIMS REPRESENTATIVE 2400 [place] [address] 09/24/2025 9:15 AM EST Office Visit [facility] RHEUMATOLOGY 330 [facility] 100 [place] [address] John Sheppard LIABILITY CLAIMS REPRESENTATIVE 330 [facility] 100 [place] [address] 02/03/2026 10:45 AM EDT Office Visit [facility] RHEUMATOLOGY [address] [place] [address] Patrice Santana, [address] [facility] 100 [place] [address] documented as of this encounter Goals Goal [...] documented as of this encounter Care Teams Pain Management Nurse Relationship Specialty Start Date End Date Reza Panchal MD 1210 [place] [address] PCP - General Family Medicine 09/30/24 documented as of this encounter
--- OUTSIDE RECORDS SUMMARY | 2025-06-10 11:05 | XMS_ITS | Encounter Summary ---
[facility] Address [address] [place] [address] Care Team Providers Care Sheet Metal Insulator Name Role Phone Reza Panchal MD Primary Care Provider +1- [phone] Reason for Visit * Reason Onset Date Comments MED QUESTION 03/27/2025 Encounter Details Date Type Department Care Team (Late st Contact Info) Description 03/27/2025 Telephone [facility] UROLOGY 1760 [place] [address] Brennan Santillan MD 1760 [place] [address] MED QUESTION Social History Tobacco Use Types Packs/Day Years Used Date Smoking Tobacco: Never Passive Smoke Exposure: Past Smokeless Tobacco: Never Comments: smokes, for 45 years Alcohol Use Standard Drinks/Week Comments No 0 (1 standard drink = 0.6 oz pur e alcohol) [facility] Utilities Answer Date Recorded In the past 12 months has [employer], gas, oil, or water company threatened to [...] Relationship: GRAND DAUGHTER Best call back number: [phone] What is the best time to reach [...] it okay if the provider responds through [employer]hart: YES documented in this encounter Plan of Treatment Upcoming Encounters Date Type Department Care Team (Late st Contact Info) Description 06/13/2025 10:00 AM EDT Office Visit [facility] UROLOGY [address] [address] Sanam Saunders, PARVIZ 1760 [facility] [address] [place] [address] 07/01/2025 11:00 AM EDT Office Visit [facility] UROLOGY [address] [address] Brennan Santillan MD [address] [address] 07/18/2025 11:30 AM EDT Appointment [facility] OUTPATIENT ONCOLOGY 1740 [place] [address] 07/31/2025 10:00 AM EDT Office Visit [facility] PULMONARY & CRITICAL CARE MEDICINE 3000 [facility] 240 [place] [address] Maxine Gibson, DORMITORY COUNSELOR [address] [place] [address] 09/24/2025 9:15 AM EST Office Visit [facility] RHEUMATOLOGY [address] [address] John Sheppard APRN [address] [phone] 02/03/2026 10:45 AM EDT Office Visit [facility] RHEUMATOLOGY [address] [address] Patrice Santana DO [address] [phone] documented as of this encounter Goals Goal [...] documented as of this encounter Care Teams Sheet Metal Insulator Relationship Specialty Start Date End Date Reza Panchal MD [address] [place] [address] PCP - General Family Medicine 09/30/24 documented as of this encounter
--- OUTSIDE RECORDS SUMMARY | 2025-06-10 11:05 | XMS_ITS | Encounter Summary ---
[facility] Address [address] [place] [address] Care Team Providers Care Management Tech Name Role Phone Reza Panchal MD Primary Care Provider +1- [phone] Reason for Visit * Reason Comments Med Refill Encounter Details Date Type Department Care Team (Late st Contact Info) Description 12/19/2021 Refill [facility] PRIMARY CARE [address] [address] Dia Underwood MD 2039 [facility] 100 [place] [address] Social History Tobacco Use Types Packs/Day Years [...] Description 06/13/2025 10:00 AM EDT Office Visit [facility] UROLOGY 1760 [place] [address] Sanam Saunders, PARVIZ 1760 [place] [address] 07/01/2025 11:00 AM EDT Office Visit [facility] UROLOGY 1760 [place] [address] Brennan Lee MD 1760 [place] [address] 07/18/2025 11:30 AM EDT Appointment [facility] OUTPATIENT ONCOLOGY [address] [place] [phone] 07/31/2025 10:00 AM EDT Office Visit [facility] PULMONARY & CRITICAL CARE MEDICINE 3000 [facility] 240 [place] [address] Maxine Gibson, TRANSPORTATION ENGINEER 2400 [place] [address] 09/24/2025 9:15 AM EST Office Visit [facility] RHEUMATOLOGY [address] [address] John Sheppard APRN [address] [address] 02/03/2026 10:45 AM EDT Office Visit [facility] RHEUMATOLOGY [address] [address] Patrice Santana DO [address] [address] documented as of this encounter Visit Diagnoses [...] documented as of this encounter Care Teams Management Tech Relationship Specialty Start Date End Date Reza Panchal MD [address] [place], [place] [address] PCP - General Family Medicine 09/30/24 documented as of this encounter
--- OUTSIDE RECORDS SUMMARY | 2025-06-10 11:05 | XMS_ITS | Encounter Summary ---
[facility] Address [address] [place] [address] Care Team Providers Care Hydroponics Grower Name Role Phone Reza Panchal MD Primary Care Provider +1- [phone] Reason for Visit * Reason Onset Date Comments Med Refill 04/29/2025 Encounter Details Date Type Department Care Team (Late st Contact Info) Description 04/29/2025 Refill [facility] CARDIOLOGY [address] [address] Tristan Mosley MD 1720 [facility] E [facility] 400 [place] [address] Med Refill Social History Tobacco Use Types Packs/Day Years Used Date Smoking Tobacco: Never Passive Smoke Exposure: Past Smokeless Tobacco: Never Comments: smokes, for 45 years Alcohol Use Standard Drinks/Week Comments No 0 (1 standard drink = 0.6 oz pur e alcohol) [facility] Utilities Answer Date Recorded In the past 12 months has [employer], gas, oil, or water company threatened [...] or training? Not on file Preferred Language East Timorese 01/28/2025 PHQ-2 Answer Date Recorded Retired PHQ-9: [...] Description 06/13/2025 10:00 AM EDT Office Visit [facility] UROLOGY 1760 [facility] 502 [place] [address] Sanam Saunders, INSPECTOR SET UP AND LAY OUT [address] [address] 07/01/2025 11:00 AM EDT Office Visit [facility] UROLOGY [address] [address] Brennan Lee MD [address] [address] 07/18/2025 11:30 AM EDT Appointment [facility] OUTPATIENT ONCOLOGY 1740 [place] [address] 07/31/2025 10:00 AM EDT Office Visit [facility] PULMONARY & CRITICAL CARE MEDICINE 3000 [facility] 240 [place] [address] Maxine Gibson, INSPECTOR SET UP AND LAY OUT 2400 [place] [address] 09/24/2025 9:15 AM EST Office Visit [facility] RHEUMATOLOGY 330 [facility] 100 [place] [address] John Sheppard INSPECTOR SET UP AND LAY OUT 330 [facility] 100 [place] [address] 02/03/2026 10:45 AM EDT Office Visit [facility] RHEUMATOLOGY [address] [place] [address] Patrice Santana DO [address] [facility] 100 [place] [address] documented as of this encounter Goals Goal [...] documented as of this encounter Care Teams Hydroponics Grower Relationship Specialty Start Date End Date Reza Panchal MD [facility] [place] [address] PCP - General Family Medicine 09/30/24 documented as of this encounter
--- OUTSIDE RECORDS SUMMARY | 2025-06-10 11:05 | XMS_ITS | Encounter Summary ---
Author Organization [facility] Address [address] [place] [address] Care Team Providers Care Rubber Grinder Name Role Phone Reza Panchal MD Primary Care Provider +1- [phone] Encounter Details Date Type Department Care Team (Latest Contact Info) Description 04/29/2025 Travel Social History Tobacco Use Types Packs/Day Years Used Date Smoking Tobacco: Never Passive Smoke Exposure: Past Smokeless Tobacco: Never Comments: smokes, for 45 years Alcohol Use Standard Drinks/Week Comments No 0 (1 standard drink = 0.6 oz pur e alcohol) [facility] Utilities Answer Date Recorded In the [...] Description 06/13/2025 10:00 AM EDT Office Visit [facility] UROLOGY 1760 [facility] 502 [place] [address] Sanam Saunders, TURBINATED BONE GRINDER 1760 [facility] [address] [place] [address] 07/01/2025 11:00 AM EDT Office Visit [facility] UROLOGY 1760 [facility] 502 [place] [address] Brennan Lee MD 1760 [facility] 502 [place] [address] 07/18/2025 11:30 AM EDT Appointment [facility] OUTPATIENT ONCOLOGY 1740 [place] [phone] 07/31/2025 10:00 AM EDT Office Visit [facility] PULMONARY & CRITICAL CARE MEDICINE 3000 [facility] 240 [place] [address] Maxine Gibson, TURBINATED BONE GRINDER 2400 [place] [address] 09/24/2025 9:15 AM EST Office Visit [facility] RHEUMATOLOGY [address] [address] John Sheppard, TURBINATED BONE GRINDER [address] [address] 02/03/2026 10:45 AM EDT Office Visit [facility] RHEUMATOLOGY [address] [address] Patrice Santana DO [address] [address] documented as of this encounter Goals Goal [...] documented as of this encounter Care Teams Rubber Grinder Relationship Specialty Start Date End Date Reza Panchal MD [facility] [place] [address] PCP - General Family Medicine 09/30/24 documented as of this encounter
--- OUTSIDE RECORDS SUMMARY | 2025-06-10 11:06 | XMS_ITS | Encounter Summary ---
Author Organization [facility] Address [address] [place] [address] Care Team Providers Care Dredge Or Barge Shore Hand Name Role Phone Reza Panchal MD Primary Care Provider +1- [phone] Encounter Details Date Type Department Care Team (Latest Contact Info) Description 06/05/2025 Travel Social History Tobacco Use Types Packs/Day [...] [facility] UROLOGY 1760 [facility] 502 [place] [address] Sanam Saunders, DOCTOR OF AUDIOLOGY 1760 [facility] [address] [place] [address] 07/01/2025 11:00 AM EDT Office Visit [facility] UROLOGY 1760 [facility] 502 [place] [address] Brennan Lee MD 1760 [facility] 502 [place] [address] 07/18/2025 11:30 AM EDT Appointment [facility] OUTPATIENT ONCOLOGY [address] [place] [phone] 07/31/2025 10:00 AM EDT Office Visit [facility] PULMONARY & CRITICAL CARE MEDICINE 3000 [facility] 240 [place] [address] Maxine Gibson, DOCTOR OF AUDIOLOGY 2400 [place] [address] 09/24/2025 9:15 AM EST Office Visit [facility] RHEUMATOLOGY [address] [address] John Sheppard, DOCTOR OF AUDIOLOGY [address] [address] 02/03/2026 10:45 AM EDT Office Visit [facility] RHEUMATOLOGY [address] [address] Patrice Santana DO [address] [address] documented as of this encounter Goals Goal [...] documented as of this encounter Care Teams Dredge Or Barge Shore Hand Relationship Specialty Start Date End Date Reza Panchal MD [facility] [place] [address] PCP - General Family Medicine 09/30/24 documented as of this encounter
--- OUTSIDE RECORDS SUMMARY | 2025-06-10 11:06 | XMS_ITS | Encounter Summary ---
Author Organization [facility] Address [address] [place] [address] Care Team Providers Care Computer Engineering Technician Name Role Phone Reza Panchal MD Primary Care Provider +1- [phone] Encounter Details Date Type Department Care Team (Late st Contact Info) Description 06/04/2025 Results Follow-Up [facility] RHEUMATOLOGY [address] [address] Patrice Santana DO 330 [place] [phone] Social History Tobacco Use Types Packs/Day Years Used Date Smoking Tobacco: Never Passive Smoke Exposure: Past Smokeless Tobacco: Never Comments: smokes, for 45 years Alcohol Use Standard Drinks/Week Comments No 0 (1 standard drink = 0.6 oz pur e alcohol) [facility] Utilities Answer Date Recorded In the past 12 months has [employer], gas, oil, or water [employer] threatened to shut off services in your [...] Description 06/13/2025 10:00 AM EDT Office Visit [facility] UROLOGY 1760 [facility] 502 [place] [address] Sanam Saunders, SOFTWARE ENGINEER KERNEL [address] [address] 07/01/2025 11:00 AM EDT Office Visit [facility] UROLOGY 1760 [facility] 502 [place] [address] Brennan Lee MD [address] [address] 07/18/2025 11:30 AM EDT Appointment [facility] OUTPATIENT ONCOLOGY 1740 [place] [address] 07/31/2025 10:00 AM EDT Office Visit [facility] PULMONARY & CRITICAL CARE MEDICINE 3000 [facility] 240 [place] [address] Maxine Gibson, SOFTWARE ENGINEER KERNEL 2400 [place] [address] 09/24/2025 9:15 AM EST Office Visit [facility] RHEUMATOLOGY [address] [phone] John Sheppard APRN [address] [address] 02/03/2026 10:45 AM EDT Office Visit [facility] RHEUMATOLOGY [address] [place] [address] Patrice Santana DO [address] [facility] 100 [place] [address] documented as of this encounter Goals Goal [...] as of this encounter Care Teams Computer Engineering Technician Relationship Specialty Start Date End Date Reza Panchal MD 1210 [place] [address] PCP - General Family Medicine 09/30/24 documented as of this encounter
--- OUTSIDE RECORDS SUMMARY | 2025-06-10 11:06 | XMS_ITS | Encounter Summary ---
Author Organization [facility] Address [address] [place] [address] Care Team Providers Care Title Checker Name Role Phone Reza Panchal MD Primary Care Provider +1- [phone] Encounter Details Date Type Department Care Team (Latest Contact Info) Description 05/06/2025 Travel Social History Tobacco Use Types Packs/Day Years Used Date Smoking Tobacco: Never Passive Smoke Exposure: Past Smokeless Tobacco: Never Comments: smokes, for 45 years Alcohol Use Standard Drinks/Week Comments No 0 (1 standard drink = 0.6 oz pur e alcohol) [facility] Utilities Answer Date Recorded In the [...] or training? Not on file Preferred Language Qatari 01/28/2025 PHQ-2 Answer Date Recorded Retired PHQ-9: [...] Description 06/13/2025 10:00 AM EDT Office Visit [facility] UROLOGY 1760 [facility] 502 [place] [address] Sanam Saunders, CHAR FILTER OPERATOR 1760 [facility] [address] [place] [address] 07/01/2025 11:00 AM EDT Office Visit [facility] UROLOGY 1760 [facility] 502 [place] [address] Brennan Lee MD 1760 [facility] 502 [place] [address] 07/18/2025 11:30 AM EDT Appointment [facility] OUTPATIENT ONCOLOGY 1740 [place] [phone] 07/31/2025 10:00 AM EDT Office Visit [facility] PULMONARY & CRITICAL CARE MEDICINE 3000 [facility] 240 [place] [address] Maxine Gibson, CHAR FILTER OPERATOR 2400 [place] [address] 09/24/2025 9:15 AM EST Office Visit [facility] RHEUMATOLOGY [address] [address] John Sheppard, CHAR FILTER OPERATOR [address] [address] 02/03/2026 10:45 AM EDT Office Visit [facility] RHEUMATOLOGY [address] [address] Patrice Santana DO [address] [address] documented as of this encounter Goals Goal [...] documented as of this encounter Care Teams Title Checker Relationship Specialty Start Date End Date Reza Panchal MD [facility] [place] [address] PCP - General Family Medicine 09/30/24 documented as of this encounter
--- OUTSIDE RECORDS SUMMARY | 2025-06-10 11:06 | XMS_ITS | Encounter Summary ---
Author Organization [facility] Address [address] [place] [address] Care Team Providers Care Aluminum Siding Mechanic Name Role Phone Reza Panchal MD Primary Care Provider +1- [phone] Reason for Visit * Reason Onset Date Comments DR SANTILLAN - CLINICAL 05/08/2025 Encounter Details Date Type Department Care Team (Late st Contact Info) Description 05/08/2025 Telephone [facility] UROLOGY [address] [place] [address] Brennan Santillan MD [address] [place] [address] DR SANTILLAN - CLINICAL Social History Tobacco Use Types Packs/Day Years Used Date Smoking Tobacco: Never Passive Smoke Exposure: Past Smokeless Tobacco: Never Comments: smokes, for 45 years Alcohol Use Standard Drinks/Week Comments No 0 (1 standard drink = 0.6 oz pur e alcohol) [facility] Utilities Answer Date Recorded In the past 12 months has [employer], gas, oil, or water company threatened to [...] for Call: PATIENT RECENTLY IN [facility] AT [facility] WITH SEPSIS DUE TO UTI. PATIENT REQUESTING A FU WITH DR SANTILLAN. UTI URINARY SYMPTOMS STARTED AGAIN YESTERDAY. PLEASE ADVISE ON SCHEDULING. REACH OUT TO ERICA [phone] When was the patient last seen: 03-26-25 HUB AGENT UNABLE TO WARM TRANSFER. PLEASE REACH OUT ANA CRISTINA documented in this encounter Plan of Treatment Upcoming Encounters Date Type Department Care Team (Late st Contact Info) Description 06/13/2025 10:00 AM EDT Office Visit [facility] UROLOGY [address] [address] Snaam Saunders APRN [address] [facility] [address] [place] [address] 07/01/2025 11:00 AM EDT Office Visit [facility] UROLOGY [address] [address] Brennan Santillan MD [address] [address] 07/18/2025 11:30 AM EDT Appointment [facility] OUTPATIENT ONCOLOGY [address] [place] [phone] 07/31/2025 10:00 AM EDT Office Visit [facility] PULMONARY & CRITICAL CARE MEDICINE [address] [facility] [address] [place] [address] Maxine Gibson Minal, DISPATCH ASSOCIATE [address] [place] [address] 09/24/2025 9:15 AM EST Office Visit [facility] RHEUMATOLOGY 330 [facility] 100 [place] [address] John Sheppard, PARVIZ [address] [facility] 100 [place], [place] [id number] 02/03/2026 10:45 AM EDT Office Visit [facility] 330 [facility] [place] [address] Patrice Santana DO [address] [id number] documented as of this encounter Goals Goal [...] documented as of this encounter Care Teams Aluminum Siding Mechanic Relationship Specialty Start Date End Date Reza Panchal MD [facility] [place] [address] PCP - General Family Medicine 09/30/24 documented as of this encounter
--- OUTSIDE RECORDS SUMMARY | 2025-06-10 11:06 | XMS_ITS | Encounter Summary ---
[facility] Address [address] [place] [address] Care Team Providers Care Colorist Photography Name Role Phone Reza Panchal MD Primary Care Provider +1- [phone] Encounter Details Date Type Department Care Team (Late st Contact Info) Description 05/06/2025 Telephone [facility] GASTROENTEROLOGY [address] [address] Robert Graham, PAArnaldoC [address] [facility] [address] [place] [address] Social History Tobacco Use Types Packs/Day Years Used Date Smoking Tobacco: Never Passive Smoke Exposure: Past Smokeless Tobacco: Never Comments: smokes, for 45 years Alcohol Use Standard Drinks/Week Comments No 0 (1 standard drink = 0.6 oz pur e alcohol) [facility] Utilities Answer Date Recorded In the past 12 months has [employer] electric, gas, oil, or water company threatened [...] Visit [facility] UROLOGY [address] [place] [address] Sanam Saunders, SEED YEAST OPERATOR [address] [place] [address] 07/01/2025 11:00 AM EDT Office Visit [facility] UROLOGY [address] [facility] [address] Brennan Lee MD [address] [place] [address] 07/18/2025 11:30 AM EDT Appointment [facility] OUTPATIENT ONCOLOGY [address] [place] [address] 07/31/2025 10:00 AM EDT Office Visit [facility] PULMONARY & CRITICAL CARE MEDICINE [address] [facility] [address] [place] [address] Maxine Gibson, SEED YEAST OPERATOR [address] [place] [address] 09/24/2025 9:15 AM EST Office Visit [facility] RHEUMATOLOGY [address] [address] John Sheppard APRN [address] [facility] [address] [phone] 02/03/2026 10:45 AM EDT Office Visit [facility] RHEUMATOLOGY [address] [place] [address] [address] Patrice Santana DO [address] [address] documented as of this encounter [...] documented as of this encounter Care Teams Colorist Photography Relationship Specialty Start Date End Date Reza Panchal MD [address] [place] [address] PCP - General Family Medicine 09/30/24 documented as of this encounter
--- OUTSIDE RECORDS SUMMARY | 2025-06-10 11:06 | XMS_ITS | Clinical Summary ---
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 Codeine Nausea And Vomiting Low 05/20/2016 Derivatives Donepezil Other (See Comments) Low 08/29/2022 Bad dreams Hydrocodone-Acetamino phen GI Intolerance Low 07/24/2023 Isosorbide Dinitrate Nausea And Vomiting Low 2015 headaches Metformin Other (See Comments) Low 07/02/2020 Pt refused after reading about carcinogen contamination Oxycodone GI Intolerance 06/05/2025 Medications * This document contains information received from the source organization and may not represent a complete record from that organization. hydrOXYzine (ATARAX) 10 MG tablet TAKE 1 TABLET BY MOUTH FOUR TIMES DAILY NEEDED FOR NERVES 022 Active BD Pen Needle Reyna 2nd Gen 32G X 4 MM misc USE 1 NEEDLE THREE TIMES DAILY DIRECTED 022 Active montelukast (SINGULAIR) 10 MG tabletIndications :Seasonal allergic rhinitis due to pollen Take 1 tablet by mouth Daily. 90 tablet 3 023 Active vitamin B-12 (CYANOCOBALAMIN) 500 MCG tablet Take 1 tablet by mouth Daily. Active nitroglycerin (NITROSTAT) 0.[address] 1 tablet under the tongue Every 5 (Five) Minutes As Needed for Chest Pain. Take no more than 3 doses in 15 minutes. 25 tablet 5 024 Active mirtazapine (Remeron) 15 MG tablet Take 1 tablet by mouth Every Night. 90 tablet 1 Active metoprolol succinate XL (TOPROL-XL) 50 MG 24 hr tablet Take 1 tablet by mouth Every 12 (Twelve) Hours. Active Cholecalciferol 25 MCG (1000 UT) tablet Take 2 tablets by mouth Daily. Active sucralfate (CARAFATE) 1 g tablet Take 1 tablet by mouth 4 (Four) Times a Day. 360 tablet Active ondansetron (Zofran) 4 MG tablet Take 1 tablet by mouth Every 8 (Eight) Hours As Needed for Nausea or Vomiting. 30 tablet Active memantine (Namenda) 10 MG tabletIndications :Mild cognitive impairment Take 1 tablet by mouth 2 (Two) Times a Day. 60 tablet 3 Active Additional Information Patient taking differently:10 mg OralDaily, Informant: Self, Reported on 06/05/2025 glucose blood test stripIndications: Type 2 diabetes mellitus with retinopathy, without long-term current use of insulin, macular edema presence unspecified, unspecified laterality, unspecified retinopathy severity Use to check blood sugar daily. E11.319 50 each 12 Active Lancets 30G miscIndications:T ype 2 diabetes mellitus with retinopathy, without long-term current use of insulin, macular edema presence unspecified, unspecified laterality, unspecified retinopathy severity Use to check blood sugar daily. ED 11.319 100 each 4 Active glucose monitor monitoring kitIndications:Ty pe 2 diabetes mellitus with retinopathy, without long-term current use of insulin, macular edema presence unspecified, unspecified laterality, unspecified retinopathy severity Use to check blood sugar daily. E11.319 1 each 024 Active gabapentin (NEURONTIN) 100 MG capsuleIndication s:Post herpetic neuralgia,Chronic bilateral low back pain with bilateral sciatica,Acute right-sided low back pain, unspecified whether sciatica present TAKE 2 CAPSULES BY MOUTH THREE TIMES DAILY 180 capsule 1 Active Additional Information Patient taking differently: 300 mgOral 3 Times Daily, Informant: Self, Reported on 06/05/2025 levothyroxine (SYNTHROID, LEVOTHROID) 75 MCG tabletIndications :Acquired hypothyroidism Take 1 tablet by mouth Daily. 30 tablet 5 Active amLODIPine (NORVASC) 2.5 MG tabletIndications :Primary hypertension Take 1 tablet by mouth Daily. 30 tablet 2 Active Additional Information Patient taking differently:2.5 mg OralAs Needed, Reported on 05/14/2025 Jardiance 10 MG tablet tabletIndications :Type 2 diabetes mellitus with retinopathy, without long-term current use of insulin, macular edema presence unspecified, unspecified laterality, unspecified retinopathy severity TAKE 1 TABLET BY MOUTH DAILY 30 tablet 2 Active prasugrel (EFFIENT) 10 MG tablet Take 1 tablet by mouth Daily. Active Golimumab (SIMPONI ARIA IV) Infuse into a venous catheter Every 8 (Eight) Weeks. Active fluticasone (FLONASE) 50 MCG/ACT nasal sprayIndications: Chronic cough Administer 2 sprays into the nostril(s) as directed by provider Daily. 33.3 g 3 025 Active Magnesium 250 MG tablet Take 2 tablets by mouth Daily. Active vitamin C (ASCORBIC ACID) 250 MG tablet Take 2 tablets by mouth Daily. Active acetaminophen (TYLENOL) 500 MG tablet Take 1 tablet by mouth Every 6 (Six) Hours As Needed for Mild Pain. Active Diclofenac Sodium (VOLTAREN) 1 % gel gel Apply topically to the appropriate area as directed 4 (Four) Times a Day. Apply 4 grams topically to the affected area four times daily 300 g 4 025 Active potassium chloride (KLOR-CON M10) 10 MEQ CR tablet Take 1 tablet by mouth Daily. 025 Active chlorthalidone (HYGROTON) 25 MG tablet Active Fluticasone-Salme terol (ADVAIR/WIXELA) 100-50 MCG/ACT DISKUSIndications :Chronic cough Inhale 1 puff 2 (Two) Times a Day. 180 each 3 025 Active albuterol sulfate HFA 108 (90 Base) MCG/ACT inhalerIndication s:Chronic cough Inhale 2 puffs Every 4 (Four) Hours As Needed for Wheezing or Shortness of Air. 18 g 6 Active atorvastatin (LIPITOR) 20 MG tablet Take 1 tablet by mouth Daily. 90 tablet Active Vonoprazan Fumarate (VOQUEZNA) 10 MG tablet Take 1 tablet by mouth Daily. 30 tablet 11 Active Additional Information Patient not taking.Reported on 06/05/2025 nitrofurantoin, macrocrystal-mono hydrate, (MACROBID) 100 MG capsuleIndication s:Infection due to 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 toxin-producing Escherichia coli (E.coli) TAKE 1 CAPSULE BY MOUTH TWO TIMES DAILY X 7 DAYS ONLY. AFTER TAKE 1 CAPSULE NIGHTLY FOR SUPPRESSIVE THERAPY E'COLI RECURRENT UTIs 30 capsule 3 Active estradiol (ESTRACE) 0.1 MG/GM vaginal creamIndications: Infection due to 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 toxin-producing Escherichia coli (E.coli),Atrophic vaginitis DO NOT USE SYRINGE. PUT A PEA SIZE ON INDEX FINGER. APPLY TO VAGINAL AREA 2-3X WEEKLY 42.5 g Active nystatin (MYCOSTATIN) 752843 UNIT/GM powderIndications :Yeast dermatitis,Perine al irritation in female Apply topically to the appropriate area as directed 3 (Three) Times a Day. 60 g 3 Active fluconazole (DIFLUCAN) 150 MG tablet TAKE 1 TABLET BY MOUTH 1 TIME FOR 1 DOSE. MAY REPEAT IN 3 DAYS IF SYMPTOMATIC Active omeprazole (priLOSEC) 40 MG capsule Take 1 capsule by mouth Daily. Active meloxicam (MOBIC) 15 MG tablet Take 1 tablet by mouth Daily As Needed for Mild Pain. 30 tablet 5 Active alendronate (FOSAMAX) 70 MG tablet Take 1 tablet by mouth Every 7 (Seven) Days. 4 tablet 6 Active Aspirin Low Dose 81 MG EC tablet TAKE 1 TABLET BY MOUTH DAILY 100 tablet 2 024 2024 Discontinued pantoprazole (PROTONIX) 40 MG EC tablet Take 1 tablet by mouth 2 (Two) Times a Day. 180 tablet 3 024 07/28/ 2025 Discontinued(H istorical Med - Therapy completed) meloxicam (MOBIC) 15 MG tablet Take 1 tablet by mouth Daily As Needed for Mild Pain. 30 tablet 5 025 2024 Discontinued(R eorder) alendronate (FOSAMAX) 70 MG tablet Take 1 tablet by mouth Every 7 (Seven) Days. 4 tablet 6 025 2024 Discontinued(R eorder) cefdinir (OMNICEF) 300 MG capsule 2024 Discontinued fluconazole (DIFLUCAN) 150 MG tabletIndications :Infection due to 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 toxin-producing Escherichia coli (E.coli),Yeast vaginitis Take 1 tablet by mouth 1 (One) Time for 1 dose. MAY REPEAT IN 3 DAYS IF SYMPTOMATIC. 2 tablet 025 2024 azithromycin (ZITHROMAX) 500 MG tablet TAKE ONE TABLET BY MOUTH EVERY DAY -- FINISH ALL MEDICINE -- 2024 Discontinued Ozempic, 0.25 or 0.5 MG/DOSE, 2 MG/3ML solution pen-injector ADMINISTER 0.25 MG UNDER THE SKIN ONCE WEEKLY 2024 Discontinued Active Problems Problem Noted Date Diagnosed Date [...] antibiotics to protect the rectal reservoir including spen-zfi-ocehbia yogurt preparations to judy oral pills containing [...] (05/14/2025 6:23 PM EDT): Orders: nystatin (MYCOSTATIN) [id number] UNIT/GM powder; Apply topically to the appropriate area as directed 3 (Three) Times a Day. POC Urinalysis Dipstick, Automated Perineal irritation in female 05/14/2025 Assessment & Plan (05/14/2025 6:23 PM EDT): Orders: nystatin (MYCOSTATIN) [id number] UNIT/GM powder; Apply topically to the appropriate [...] NSAID long-term use 01/30/2025 Assessment & Plan (06/05/2025 11:25 AM EDT): Meloxicam 15 mg PO once/day [...] other aches and pains or fever reduction. Assessment & Plan (01/30/2025 11:05 AM EDT): [...] current pathological fracture 04/12/2024 Assessment & Plan (06/05/2025 12:14 PM EDT): 1. Calcium and vitamin D supplements [...] PCP was managing with alendronate. In 2021 we noted that we are restarting alendronate because we believe she was noncompliant. This was noted after the patient left the visit today. We will send a PA for requested notify patient to stop alendronate. Assessment & Plan (01/30/2025 11:18 AM EDT): [...] Angina pectoris 05/03/2019 Overview (12/31/2020): a. Remote [facility] -- data deficit: No reported disease. b. L ight [place] with medical treatment. c. [facility], 05/12/2011, Dr. Mosley: Angiographically normal coronary [...] Migraine 10/12/2016 Osteoarthritis 10/12/2016 Assessment & Plan (06/03/2025 8:10 AM EDT): Tylenol PRN is ok as directed She has tried oral and topical NSAIDS PRN She has taken gabapentin for neuropathic pain She has taken Tramadol PRN She has taken Oxycodone PRN She has done physical therapy She has seen orthopaedic surgeons She had knee replacement surgery She has had back surgery Assessment & Plan (01/30/2025 11:05 AM EDT): [...] 05/20/2016 Overview (05/20/2016): RA Assessment & Plan (06/05/2025 12:14 PM EDT): Diagn[place] [address] [...] infused here. A message was sent to clinical staff to see if site can be changed. Prognosis is guarded. She has tried/failed multiple therapeutic options and she has chronic pain Follow up in 3-4 months We gave her a new standing lab order to have done before next visit. Reviewed labs from [facility]. Labs also requested. Assessment & Plan (01/30/2025 11:05 AM EDT): [...] risk medication use 05/20/2016 Assessment & Plan (06/03/2025 8:10 AM EDT): IV Simponi every 8 weeks for RA Qtb negative 01/14/25 1. Hold if the patient develops infection. 2. Avoid live vaccines while on this medication. 3. No recent serious infections 4. No infusion reactions 5. Also hold this medication perioperatively if the patient is going to have a surgical procedure Assessment & Plan (01/30/2025 11:05 AM EDT): [...] Encounters Date Type Department Care Team Description 06/05/2025 10:45 AM EDT Office Visit [facility] RHEUMATOLOGY [address] [phone] John Sheppard APRN Seropositive rheumatoid arthritis (Primary Dx); High risk medication use; Primary osteoarthritis involving multiple joints; Age-related osteoporosis without current pathological fracture; NSAID long-term use; Fatigue, unspecified type 06/05/2025 Telephone [facility] RHEUMATOLOGY [address] [phone] John Sheppard APRN 06/05/2025 Travel 06/04/2025 Results Follow-Up [facility] RHEUMATOLOGY [address] [address] Patrice Santana DO 06/03/2025 10:33 AM EDT - 06/03/2025 11:59 PM EDT Hospital Encounter [facility] DEXA YOEL [address] [place] [phone] Patrice Santana DO Seropositive rheumatoid arthritis; High risk medication use; Primary osteoarthritis involving multiple joints; Age-related osteoporosis without current pathological fracture; NSAID long-term use Discharge Disposition: Home or Self Care 06/03/2025 Travel 05/28/2025 Telephone [facility] GASTROENTEROLOGY [address] [facility] [address] [place] [address] Ivelisse Cordon MD CANCEL PROCEDURE 05/23/2025 1:00 PM EDT - 05/23/2025 11:59 PM EDT Hospital Encounter [facility] OUTPATIENT ONCOLOGY [address] [place] [address] Patrice Santana DO Rheumatoid arthritis involving multiple sites with positive rheumatoid factor (Primary Dx) Discharge Disposition: Home or Self Care 05/23/2025 Travel 05/16/2025 Results Follow-Up [facility] UROLOGY [address] [place] [address] [address] [place] [address] Sanam Saunders APRN 05/14/2025 2:30 PM EDT Office Visit [facility] UROLOGY [address] [place] [address] [address] [place] [address] Sanam Saunders APRN Infection due to 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 toxin-producing Escherichia coli (E.coli) (Primary Dx); Yeast vaginitis; Yeast dermatitis; Perineal irritation in female; Atrophic vaginitis 05/14/2025 Travel 05/14/2025 Telephone [facility] UROLOGY [address] [facility] [address] [place] [address] ArtFaheem SanamPARVIZ 05/13/2025 Prior Authorization [facility] GASTROENTEROLOGY [address] [facility] [address] [place] [address] Khadar Julien RMA VOQUENZA 10 MG PA REQUEST; APPROVAL 05/12/2025 Refill [facility] GASTROENTEROLOGY [address] [facility] [address] [place] [address] Palak Graham PA-C 05/08/2025 Telephone [facility] UROLOGY [address] [facility] [address] [place] [address] STARK - CLINICAL 05/07/2025 Results Follow-Up [facility] DIAGNOSTIC CENTER AT [address] [place] [address] Palak Graham PA-C 05/06/2025 12:15 PM EDT Lab [facility] DIAGNOSTIC CENTER AT [address] [place] [address] Esophageal dysphagia; Gastroesophageal reflux disease, unspecified whether esophagitis present 05/06/2025 10:30 AM EDT Office Visit [facility] GASTROENTEROLOGY [address] [facility] [address] [place] [address] Palak Graham PA-C Esophageal dysphagia (Primary Dx); Gastroesophageal reflux disease, unspecified whether esophagitis present; History of Araseli fundoplication; History of aspiration pneumonia 05/06/2025 Telephone [facility] GASTROENTEROLOGY [address] [facility] [address] [place] [address] Palak Graham PA-C 05/06/2025 Travel 04/29/2025 9:30 AM EDT Office Visit [facility] PULMONARY & CRITICAL CARE MEDICINE [address] [facility] [address] [place] [phone] Maxine Gibson APRN Seasonal allergic rhinitis due to pollen (Primary Dx); Chronic cough; GERD without esophagitis; DEVANG (obstructive sleep apnea)/suspected nocturnal hypoxemia.-by history. Intolerant of NIPPV in past. 04/29/2025 Refill [facility] CARDIOLOGY [address] [facility] [address] [place] [phone] Tristan Mosley MD Med Refill 04/29/2025 Travel 03/28/2025 12:35 PM EDT - 03/28/2025 11:59 PM EDT Hospital Encounter [facility] OUTPATIENT ONCOLOGY [address] [place] [phone] Patrice Santana DO Rheumatoid arthritis involving multiple sites with positive rheumatoid factor (Primary Dx) Discharge Disposition: Home or Self Care 03/28/2025 Travel 03/27/2025 Telephone [facility] UROLOGY [address] [facility] [address] [place] [address] Brennan Lee MD MED QUESTION 03/26/2025 10:10 AM EDT Office Visit [facility] UROLOGY [address] [facility] [address] [place] [address] Brennan Lee MD OAB (overactive bladder) (Primary Dx); Urge incontinence; Lower urinary tract symptoms (LUTS) 03/26/2025 Travel 03/12/2025 9:20 AM EDT Office Visit [facility] UROLOGY [address] [facility] [address] [place] [address] Brennan Lee MD Erythema (Primary Dx) 03/12/2025 Travel from Last 3 Months Immunizations Immunization [...] = 0.6 oz pur e alcohol) [facility] Utilities Answer Date Recorded In the past 12 months has [employer], [employer], oil, or water [employer] threatened to shut off services in [...] or training? Not on file Preferred Language Tongan 01/28/2025 PHQ-2 Answer Date Recorded Retired PHQ-9: [...] F) 06/05/2025 10:44 AM EDT Respiratory Rate 16 05/23/2025 1:44 PM EDT Oxygen Saturation 97% 05/06/2025 10:16 AM EDT Inhaled Oxygen Concentration - - Weight 89.9 kg (198 lb 1.6 oz) 06/05/2025 10:44 AM EDT Height 152.4 cm (5') 06/05/2025 10:44 AM EDT Body Mass Index 38.69 06/05/2025 10:44 AM EDT Plan of Treatment Upcoming Encounters Date Type Department Care Team (Late st Contact Info) Description 06/13/2025 10:00 AM EDT Office Visit [facility] UROLOGY [address] [place] [address] Sanam Saunders, REGIONAL DIRECTOR OF ADMISSIONS [address] [place] [address] 07/01/2025 11:00 AM EDT Office Visit [facility] UROLOGY [address] [place] [address] Brennan Lee MD [address] [place] [address] 07/18/2025 11:30 AM EDT Appointment [facility] OUTPATIENT ONCOLOGY [address] [place] [phone] 07/31/2025 10:00 AM EDT Office Visit [facility] PULMONARY & CRITICAL CARE MEDICINE [address] [facility] [address] [place] [address] Maxine Gibson, REGIONAL DIRECTOR OF ADMISSIONS [address] [place] [address] 09/24/2025 9:15 AM EST Office Visit [facility] RHEUMATOLOGY [address] [place] [phone] John Sheppard APRN [address] [phone] 02/03/2026 10:45 AM EDT Office Visit [facility] RHEUMATOLOGY [address] [place] [address] Patrice Santana DO [address] [id number] Health Maintenance Due Date Last Done Comments COLOGUARD 2002 COLON CANCER SCREENING 5 YEA R SIGMOIDOSCOPY 2002 [address] COLONOGRAPHY 2002 FIT Testing (1 year) 2002 URINE MICROALBUMIN-CREATININ E RATIO (uACR) 04/13/2022 04/13/2021, 04/07/2020, 07/16/2019 TDAP/TD VACCINES (2 - Td or Tdap) 04/24/2022 012 DIABETIC FOOT EXAM 01/05/2024 01/04/2023, 0 01/04/2023, 01/04/2023, Additional history exists [facility] PLAN OF CARE 02/07/2024 ANNUAL WELLNESS [...] , 08/29/2022, Additional history exists DXA SCAN 06/03/2027 06/03/2025, 03/17, 08/10/2022 (Patient-Reported (Performed Externally)), Additional history exists COLONOSCOPY 07/14/2033 07/14/2023, 07/16, 11/14/2013 COLORECTAL CANCER SCREENING 07/14/2033 Pneumococcal Vaccine 50+ Completed , 07/16/2019, 08/24/2010 HEPATITIS C SCREENING Completed 08/17/2024 [...] day. Notes: Medical Devices Implanted Type Area Disability Advocate Device Identifier Shelf Expiration Date Model / Serial / Lot Pk Imp Trial Basic Bilat W/Ext Neurostm/Pne Ld Imp Kt - [id number] Implanted:Qty: 1 on 02/04/2025 by Brennan Lee MD at [facility] Implant N/A: Back [employer] 07/15/2025 1E01 / / [id number] Ld Neurostm Sacral Pne - [id number] Implanted:Qty: 1 on 02/04/2025 by Brennan Lee MD at [facility] Implant Back [employer] 02/20/2027 1901 / / [id number] Neurostm Sacral/Nerv [employer] Nonrechg W/Torq Wrench - [id number] Implanted:Qty: 1 on 02/20/2025 by Brennan Lee MD at [facility] Implant N/A: Back [employer] 12/12/2025 [id number] / / [id number] Kt Ld Stim Tined [employer] W/2/Sty Str/Crv - [id number] Implanted:Qty: 1 on 02/20/2025 by Brennan Lee MD at [facility] Implant N/A: Back [employer] 02/27/2027 1201 / / [id number] Procedures Procedure Name Priority Date/Time Associated Diagnosis Comments DEXA BONE DENSITY AXIAL Routine 06/03/2025 10:55 AM EDT Seropositive rheumatoid arthritis High risk medication use Primary osteoarthritis involving multiple joints Age-related osteoporosis without current pathological fracture NSAID long-term use POCT URINALYSIS DIPSTICK, AUTOMATED Routine 05/14/2025 3:56 [...] without current pathological fracture Fatigue, unspecified type LIPID PANEL Routine 02/21/2024 10:20 AM EDT [...] Recently Relevant to Health Maintenance Results * DEXA Bone Density Axial (06/03/2025 [...] fall-prevention measurements. The National Osteoporosis Foundation recommends (http://www.nof.org/hcp/practice/gmgxmexn-ggs-rdimzetl-guidelines/clinicians-christine de) that FDA-approved medical therapies be considered [...] the left hip with 95% confidence is 0.742141 gm/cm2 at the hip and 0.986573 g/cm2 at the lumbar spine. Report dictated by: Kiah Weston PA-c I have personally reviewed this case and agree with the findings above: Electronically Signed: Julito Kirkland MD 06/03/2025 4:39 PM EDT Workstation ID: [id number] Narrative 06/03/2025 4:39 PM EDT DUAL-ENERGY X-RAY [...] normal patients. According to criteria established by the[facility], patients with T-scores between 1.0 and [...] exercises and fall-prevention measurements. The NationalOsteoporosis Foundation recommends(http://www.nof.org/hcp/practice/lckyyxdu-vqj-sifchulw-guidelines/clin ician s-guide) that FDA-approved medical therapies be [...] at the left hipwith 95% confidence is 0.631932 gm/cm2 at the hip and 0.479600 g/cm2 atthe lumbar spine. Report dictated by: Kiah Weston PA-c I have personally reviewed this case and agree with the findings above: Electronically Signed: Julito Kirkland MD 06/03/2025 4:39 PM EDT Workstation ID: [id number] Patrice Santana DO IMG DXA ORDERABLES Fin al Result * (ABNORMAL) POC Urinalysis Dipstick, Automated (05/14/2025 3:56 PM EDT) Color Yellow Yellow, Straw, Dark Yellow, Ann [facility] Clarity, UA Slightly Cloudy(A) Clear [facility] Specific Kopperl 1.015 1.005 - 1.030 [facility] [...] Sanam Saunders APRN POINT OF CARE TEST ORDAleyda HELM Final Result [facility]
[address] [place] [address], * LABS SCANNED (05/14/2025) Sanam Pino-Akwa REGIONAL DIRECTOR OF ADMISSIONS LAB BLOOD ORDERABLES Fi nal Result * TSH Rfx On Abnormal To Free T4 (05/06/2025 12:01 PM EDT) Pathologist [facility] TSH 2.680 0.270 - 4.200 uIU/mL 05/06/2025 7:29 PM EDT [facility] Blood Venipuncture / Unknown 05/06/2025 12:01 PM EDT 05/06/2025 12:01 PM EDT Palak Graham PA-C LAB BLOOD ORDERABLES Final Result [facility]
[address] [place] [address], * (ABNORMAL) CBC Auto Differential (05/06/2025 12:01 PM EDT) [facility] WBC 6.88 3.40 - 10.80 10*3/mm3 05/06/2025 6:48 PM EDT [facility] RBC 4.42 3.77 - 5.28 10*6/mm3 05/06/2025 6:48 PM EDT [facility] Hemoglobin 13.5 12.0 - 15.9 g/dL 05/06/2025 6:48 PM EDT [facility] Hematocrit 41.0 34.0 - 46.6 % 05/06/2025 6:48 PM EDT [facility] MCV 92.8 79.0 - 97.0 fL 05/06/2025 6:48 PM EDT [facility] MCH 30.5 26.6 - 33.0 pg 05/06/2025 6:48 PM EDT [facility] MCHC 32.9 31.5 - 35.7 g/dL 05/06/2025 6:48 PM EDT [facility] RDW 13.1 12.3 - 15.4 % 05/06/2025 6:48 PM EDT [facility] RDW-SD 44.8 37.0 - 54.0 fl 05/06/2025 6:48 PM EDT [facility] MPV 10.0 6.0 - 12.0 fL 05/06/2025 6:48 PM EDT [facility] Platelets 314 140 - 450 10*3/mm3 05/06/2025 6:48 PM EDT [facility] Neutrophil % 41.1(L) 42.7 - 76.0 % 05/06/2025 6:48 PM EDT [facility] Lymphocyte % 37.1 19.6 - 45.3 % 05/06/2025 6:48 PM EDT [facility] Monocyte % 14.8(H) 5.0 - 12.0 % 05/06/2025 6:48 PM EDT [facility] Eosinophil % 5.4 0.3 - 6.2 % 05/06/2025 6:48 PM T [facility] Basophil % 0.7 0.0 - 1.5 % 05/06/2025 6:48 PM EDT [facility] Immature Grans % 0.9(H) 0.0 - 0.5 % 05/06/2025 6:48 PM EDT [facility] Neutrophils, Absolute 2.83 1.70 - 7.00 10*3/mm3 05/06/2025 6:48 PM T [facility] Lymphocytes, Absolute 2.55 0.70 - 3.10 10*3/mm3 05/06/2025 6:48 PM T [facility] Monocytes, Absolute 1.02(H) 0.10 - 0.90 10*3/mm3 05/06/2025 6:48 PM EDT [facility] Eosinophils, Absolute 0.37 0.00 - 0.40 10*3/mm3 05/06/2025 6:48 PM EDT [facility] Basophils, Absolute 0.05 0.00 - 0.20 10*3/mm3 05/06/2025 6:48 PM EDT [facility] Immature Grans, Absolute 0.06(H) 0.00 - 0.05 10*3/mm3 05/06/2025 6:48 PM EDT [facility] nRBC 0.0 0.0 - 0.2 /100 WBC 05/06/2025 6:48 PM EDT [facility] Blood Venipuncture / Unknown 05/06/2025 12:01 PM EDT 05/06/2025 12:01 PM EDT Palak Graham PA-C LAB BLOOD ORDERABLES Final Result [facility]
[address] [place] [address], * (ABNORMAL) Comprehensive Metabolic Panel (05/06/2025 12:01 PM EDT) Glucose 150(H) 65 - 99 mg/dL 05/06/2025 7:23 PM EDT [facility] BUN 17.0 8.0 - 23.0 mg/dL 05/06/2025 7:23 PM EDT [facility] Creatinine 0.85 0.57 - 1.00 mg/dL 05/06/2025 7:23 PM EDT [facility] Sodium 141 136 - 145 mmol/L 05/06/2025 7:23 PM EDT [facility] Potassium 4.0 3.5 - 5.2 mmol/L 05/06/2025 7:23 PM EDT [facility] Chloride 101 98 - 107 mmol/L 05/06/2025 7:23 PM EDT [facility] CO2 27.3 22.0 - 29.0 mmol/L 05/06/2025 7:23 PM EDT [facility] Calcium 9.4 8.6 - 10.5 mg/dL 05/06/2025 7:23 PM EDT [facility] Total Protein 7.7 6.0 - 8.5 g/dL 05/06/2025 7:23 PM EDT [facility] Albumin 4.0 3.5 - 5.2 g/dL 05/06/2025 7:[facility] ALT (SGPT) 21 1 - 33 U/L 05/06/2025 7:23 PM EDT [facility] AST (SGOT) 18 1 - 32 U/L 05/06/2025 7:23 PM EDT [facility] Alkaline Phosphatase 98 39 - 117 U/L 05/06/2025 7:23 PM T [facility] Total Bilirubin 0.3 0.0 - 1.2 mg/dL 05/06/2025 7:23 PM EDT [facility] Globulin 3.7 gm/dL 05/06/2025 7:23 PM T [facility] A/G Ratio 1.1 g/dL 05/06/2025 7:23 PM T [facility] BUN/Creatinine Ratio 20.0 7.0 - 25.0 05/06/2025 7:23 PM T [facility] Anion Gap 12.7 5.0 - 15.0 mmol/L 05/06/2025 7:23 PM T [facility] eGFR 75.2 >60.0 mL/min/1.7 3 05/06/2025 7:23 PM [facility] Blood Venipuncture / Unknown 05/06/2025 12:01 PM EDT 05/06/2025 12:01 PM EDT [facility] - 05/06/2025 7:23 PM EDT GFR [...] Graham PA-C LAB BLOOD ORDERABLES Final Result [facility]
[address] [place] [address], * (ABNORMAL) POC Glycosylated Hemoglobin (Hb A1C) (04/15/2024 3:58 PM EDT) [facility] Hemoglobin A1C 5.6 4.5 - 5.7 % [facility] Lot Number [id number] [facility] Expiration Date 12/31/2025 [facility] Blood 04/15/2024 3:58 PM EDT Huyen Pal MD POINT OF CARE TEST ORDERABL ES Final Result Performing Organization Address [facility]/ZIP Co de Phone Number [facility]
[address] [place] [address], [place] [phone] * (ABNORMAL) Hepatitis Panel, Acute (04/12/2024 11:29 AM EDT) [facility] Hepatitis B Surface Ag Non-Reacti ve Non-Reacti ve 04/13/2024 1:52 AM EDT [facility] Hep A IgM Reactive(A ) Non-Reacti ve 04/13/2024 1:52 AM EDT [facility] Hep B C IgM Non-Reacti ve Non-Reacti ve 04/13/2024 1:52 AM EDT [facility] Hepatitis C Ab Non-Reacti ve Non-Reacti ve 04/13/2024 1:52 AM EDT [facility] Blood Venipuncture / Unknown 04/12/2024 11:29 AM EDT 04/12/2024 11:32 AM EDT Narrative [facility] - 04/13/2024 1:52 AM EDT Results may be falsely decreased if patient taking Biotin. Patrice Santana DO LAB BLOOD ORDERABLES F inal Result [facility]
[address] [id number], * (ABNORMAL) Lipid Panel (02/21/2024 10:20 AM EDT) Total Cholesterol 143 0 - 200 mg/dL 02/21/2024 11:45 PM EDT [facility] Triglycerides 212(H) 0 - 150 mg/dL 02/21/2024 11:45 PM EDT [facility] HDL Cholesterol 37(L) 40 - 60 mg/dL 02/21/2024 11:45 PM EDT [facility] LDL Cholesterol 71 0 - 100 mg/dL 02/21/2024 11:45 PM EDT [facility] VLDL Cholesterol 35 5 - 40 mg/dL 02/21/2024 11:45 PM EDT [facility] LDL/HDL Ratio 1.72 02/21/2024 11:45 PM EDT [facility] Blood Structure of right upper limb / Unknown Venipuncture / Unknown 02/21/2024 10:20 AM EDT 02/21/2024 10:20 AM EDT Narrative [facility] - 02/21/2024 11:45 PM EDT [...] Pal MD LAB BLOOD ORDERABLES Final Result [facility]
[address] [place] [address], * SCANNED - EYE EXAM (07/20/2023) Anatomical [...] AM EDT) Fecal Occult Blood Negative Negative [facility] Lot Number [id number] [facility] Expiration Date 11/15/2024 [facility] DEVELOPER LOT NUMBER [id number] [facility] DEVELOPER EXPIRATION DATE 02/12/2025 [facility] Positive Control Positive Positive [facility] Negative Control Negative Negative [facility] Stool 04/13/2023 11:3 2 AM EDT Huyen Pal MD POINT OF CARE TEST ORDERABL ES Final Result [facility]
[address] [place] [address], * Microalbumin / Creatinine Urine Ratio - [...] 2:11 PM EDT 04/14/2021 Comment:URINE RELEASE TO [facility] Narrative [facility] ([facility]) - 04/14/2021 10:09 AM EDT Performed at: 01 - [address] [id number] Community Education Specialist: Jean Stephens PhD, Phone: [phone] Huyen Pal MD URINE ORDERABLES Final Resu lt [facility] (AM[facility]ULATORY) [address] [place] [address], [place] [phone] [facility] [address] [place] [id number], [place] [phone] * SCANNED - INFLUENZA (07/16/2019) Huyen Pal MD CHART REVIEW TABS Final Result * SCANNED - COLONOSCOPY (11/14/2013) Lizbeth Ibarra MD CHART REVIEW TABS Final Result from Last 3 Months or Most Recently Relevant to Health Maintenance Additional Health Concerns Infection Onset Date Last Indicated Hepatitis A 04/12/2024 04/12/2024 Insurance AETNA MEDICARE ADVANTAGE [facility] [place] MEDICAID QMB Advance Directives Documents on File Type Date Recorded Patient Bottle Caser Expl anation PATIENT ADVANCE DIRECTIVES - SCAN [...] Of Support Discussed With: Patient Care Teams Electric Motor Mechanic Relationship Specialty Start Date End Date Reza Panchal MD [facility] [place] [address] PCP - General Family Medicine 09/30/24
--- OUTSIDE RECORDS SUMMARY | 2025-06-10 11:06 | XMS_ITS | Encounter Summary ---
[facility] [address] [place] [address] Care Team Providers Care Lawn Sprinkler Installer Name Role Phone Reza Panchal MD Primary Care Provider +1- [phone] Reason for Visit * Reason Comments Med Refill Encounter Details Date Type Department Care Team (Late st Contact Info) Description 02/24/2023 Refill [facility] PRIMARY CARE [address] [address] Huyen Hall MD [address] [address] Type 2 diabetes mellitus with hyperglycemia, without [...] [facility] UROLOGY [address] [address] Sanam Saunders APRN [address] [address] 07/01/2025 11:00 AM EDT Office Visit [facility] UROLOGY [address] [address] Brennan Lee MD [address] [address] 07/18/2025 11:30 AM EDT [facility]ointment [facility] [address] [place] [phone] 07/31/2025 10:00 AM EDT Office Visit [facility] PULMONARY & CRITICAL CARE MEDICINE 3000 [facility] [address] [place] [address] Maxine Gibson, CLAY ROASTER [address] [place] [address] 09/24/2025 9:15 AM EST Office Visit [facility] RHEUMATOLOGY 330 [facility] 100 [place] [phone] John Sheppard, CLAY ROASTER 330 [facility] 100 [place], [place] [id number] 02/03/2026 10:45 AM EDT Office Visit [facility] RHEUMATOLOGY 330 [facility] 100 [place] [address] Patrice Santana, 330 [facility] 100 [place], [place] [phone] documented as of this encounter Visit Diagnoses [...] documented as of this encounter Care Teams Lawn Sprinkler Installer Relationship Specialty Start Date End Date Reza Panchal MD Count includes the [facility] [address] [id number] PCP - General Family Medicine 09/30/24 documented as of this encounter
--- OUTSIDE RECORDS SUMMARY | 2025-06-10 11:07 | XMS_ITS | Encounter Summary ---
[facility] [address] [place] [address] Care Team Providers Care Ultrasound Sonographer Name Role Phone Reza Panchal MD Primary Care Provider +1- [phone] Reason for Visit * Reason Comments Med Refill Encounter Details Date Type Department Care Team (Late st Contact Info) Description 07/03/2023 Refill [facility] PRIMARY CARE [address] [address] Huyen Hall MD [address] [address] Reactive depression; Type 2 diabetes mellitus with [...] Description 06/13/2025 10:00 AM EDT Office Visit [facility] UROLOGY [address] [address] Sanam Saunders APRN [address] [address] 07/01/2025 11:00 AM EDT Office Visit [facility] [address] [facility] [address] Brennan Lee MD [address] [address] 07/18/2025 11:30 AM EDT Appointment [facility] OUTPATIENT ONCOLOGY [address] [facility] [phone] 07/31/2025 10:00 AM EDT Office Visit [facility] PULMONARY & CRITICAL CARE MEDICINE 3000 [facility] [address] 240 [place] [phone] Maxine Gibson, MANAGER TECHNICAL SERVICES [address] [place] [address] 09/24/2025 9:15 AM EST Office Visit [facility] RHEUMATOLOGY 330 [facility] 100 [place] [phone] John Sheppard, MANAGER TECHNICAL SERVICES [address] [phone] 02/03/2026 10:45 AM EDT Office Visit [facility] RHEUMATOLOGY 330 [facility] 100 [place] [address] Patrice Santana DO [address] [phone] documented as of this encounter Visit Diagnoses [...] documented as of this encounter Care Teams Ultrasound Sonographer Relationship Specialty Start Date End Date Reza Pacnhal MD [address] [place] [address] PCP - General Family Medicine 09/30/24 documented as of this encounter
--- OUTSIDE RECORDS SUMMARY | 2025-06-10 11:07 | XMS_ITS | Encounter Summary ---
Author Organization Healthcare Address [address] [place] [address] Care Team Providers Care Telecommunications Field Engineer Name Role Phone Reza Panchal MD Primary Care Provider +1- [phone] Encounter Details Date Type Department Care Team (Late st Contact Info) Description 08/17/2024 Ophth Exam [facility] - Pediatrics [address] [place] [address] Tian Ramírez MD [address] [place] [address] Social History Tobacco Use Types Packs/Day [...] on filedocumented in this encounter Care Teams Telecommunications Field Engineer Relationship Specialty Start Date End Date Reza Panchal MD [address] [place] [address] PCP - General 08/17/24 documented as of this encounter
--- OUTSIDE RECORDS SUMMARY | 2025-06-10 11:07 | XMS_ITS | Encounter Summary ---
[facility] Organization [facility] Address [address] [place] [address] Care Team Providers Care Corporate Development Manager Name Role Phone Reza Panchal MD Primary Care Provider +1- [phone] Encounter Details Date Type Department Care Team (Late st Contact Info) Description 05/07/2025 Results Follow-Up [facility] AT [address] [place] [address] Robert Graham, PA-C [address] [facility] [address] [place] [address] Social History Tobacco Use Types Packs/Day Years Used Date Smoking Tobacco: Never Passive Smoke Exposure: Past Smokeless Tobacco: Never Comments: smokes, for 45 years Alcohol Use Standard Drinks/Week Comments No 0 (1 standard drink = 0.6 oz pur e alcohol) [facility] Utilities Answer Date Recorded In the past 12 months has [employer] electric, gas, oil, or water company threatened [...] 05/07/2025 8:36 AM EDT Results sent via GitHub. documented in this encounter Plan of Treatment Upcoming Encounters Date Type Department Care Team (Late st Contact Info) Description 06/13/2025 10:00 AM EDT Office Visit [facility] UROLOGY [address] [place] [address] Sanam Saunders APRN 1760 [facility] [address] [place] [address] 07/01/2025 11:00 AM EDT Office Visit [facility] UROLOGY 1760 [facility] 502 [place] [address] Brennan Lee MD 1760 [facility] 502 [place] [address] 07/18/2025 11:30 AM EDT Appointment [facility] OUTPATIENT ONCOLOGY [address] [place] [address] 07/31/2025 10:00 AM EDT Office Visit [facility] PULMONARY & CRITICAL CARE MEDICINE 3000 [facility] 240 [place] [phone] Maxine Gibson, HELPER [employer] 2400 [place] [address] 09/24/2025 9:15 AM EST Office Visit [facility] RHEUMATOLOGY [address] [place] [place] [address] John Sheppard APRN [address] [phone] 02/03/2026 10:45 AM EDT Office Visit [facility] RHEUMATOLOGY [address] [address] Patrice Santana DO 330 [facility] 100 [place] [address] documented as of this encounter Goals Goal [...] as of this encounter Care Teams Corporate Development Manager Relationship Specialty Start Date End Date Reza Panchal MD [address] [place] [address] PCP - General Family Medicine 09/30/24 documented as of this encounter
--- OUTSIDE RECORDS SUMMARY | 2025-06-10 11:07 | XMS_ITS | Encounter Summary ---
[facility] Address [address] [place] [address] Care Team Providers Care Order Make Up Clerk Name Role Phone Reza Panchal MD Primary Care Provider +1- [phone] Encounter Details Date Type Department Care Team (Late st Contact Info) Description 01/15/2025 Results Follow-Up [facility] RHEUMATOLOGY [address] [address] Patrice Santana DO [address] [place] [id number] Social History Tobacco Use Types Packs/Day Years Used Date Smoking Tobacco: Never Passive Smoke Exposure: Past Smokeless Tobacco: Never Comments: smokes, for 45 years Alcohol Use Standard Drinks/Week Comments No 0 (1 standard drink = 0.6 oz pur e alcohol) [facility] Utilities Answer Date Recorded In the past 12 months has [employer], gas, oil, or water [employer] threatened to shut off services in your [...] training? Not on file Preferred Language Chinese 05/28/2024 PHQ-2 Answer Date Recorded Retired PHQ-9: [...] Description 06/13/2025 10:00 AM EDT Office Visit [facility] UROLOGY 1760 [facility] 502 [place] [address] Sanam Saunders, DISABILITY AIDE [address] [address] 07/01/2025 11:00 AM EDT Office Visit [facility] UROLOGY [address] [address] Brennan Lee MD [address] [address] 07/18/2025 11:30 AM EDT Appointment [facility] OUTPATIENT ONCOLOGY 1740 [place] [address] 07/31/2025 10:00 AM EDT Office Visit [facility] PULMONARY & CRITICAL CARE MEDICINE 3000 [facility] 240 [place] [address] Maxine Gibson, DISABILITY AIDE [address] [place] [address] 09/24/2025 9:15 AM EST Office Visit [facility] RHEUMATOLOGY [address] [phone] John Sheppard DISABILITY AIDE 330 [facility] 100 [place] [address] 02/03/2026 10:45 AM EDT Office Visit [facility] RHEUM[facility] [address] [facility] 100 [place] [address] Patrice Santana, 330 [facility] [facility] 100 [place] [address] documented as of this encounter Goals Goal [...] documented as of this encounter Care Teams Order Make Up Clerk Relationship Specialty Start Date End Date Reza Panchal MD [facility]0 [place] [address] PCP - General Family Medicine 09/30/24 documented as of this encounter
--- OUTSIDE RECORDS SUMMARY | 2025-06-10 11:07 | XMS_ITS | Clinical Summary ---
Author Organization Healthcare Address [address] [place] [address] Care Team Providers Care Bag Printer Name Role Phone Reza Panchal MD Primary Care Provider +1- [phone] Allergies Active Allergy Reactions Criticality Noted Date [...] file Insurance AET[place] MEDICARE [place] Care Teams Bag Printer Relationship Specialty Start Date End Date Reza Panchal MD [address] [place] [address] PCP - General 08/17/24
--- OUTSIDE RECORDS SUMMARY | 2025-06-10 11:07 | XMS_ITS | Encounter Summary ---
[facility] [address] [place] [address] Care Team Providers Care Ict Teacher Name Role Phone Reza Panchal MD Primary Care Provider +1- [phone] Reason for Visit * Reason Comments Med Refill Encounter Details Date Type Department Care Team (Late st Contact Info) Description 02/12/2021 Refill [facility] PRIMARY CARE [address] [address] Huyen Hall MD 2039 [facility] 100 [place] [address] Gastroesophageal reflux disease, unspecified whether esophagitis present [...] Visit [facility] UROLOGY 1760 [facility] [place] [address] Sanam Saunders APRN 1760 [facility] [address] [place] [address] 07/01/2025 11:00 AM EDT Office Visit [facility] UR[facility] 1760 [facility] [address] Brennan Lee MD [address] [address] 07/18/2025 11:30 AM EDT Appointment [facility] OUTPATIENT ONCOLOGY 1740 [facility] [place] [phone] 07/31/2025 10:00 AM EDT Office Visit [facility] PULMONARY & CRITICAL CARE MEDICINE 3000 [facility] [address] [place] [address] Maxine Gibson, HEAD FILTER TANK TENDER HELPER [address] [place] [address] 09/24/2025 9:15 AM EST Office Visit [facility] RHEUMATOLOGY 330 [facility] 100 [place] [address] John Sheppard, HEAD FILTER TANK TENDER HELPER [address] [facility] 100 [place], [place] [phone] 02/03/2026 10:45 AM EDT Office Visit [facility] RHEUMATOLOGY 330 [facility] 100 [place] [address] Patrice Santana DO [address] [phone] documented as of this encounter Visit Diagnoses [...] documented as of this encounter Care Teams Ict Teacher Relationship Specialty Start Date End Date Reza Panchal MD [facility]0 [place] [address] PCP - General Family Medicine 09/30/24 documented as of this encounter
--- OUTSIDE RECORDS SUMMARY | 2025-06-10 11:07 | XMS_ITS | Encounter Summary ---
[facility] Address [address] [place] [address] Care Team Providers Care [employer] Certified Network Associate Name Role Phone Reza Panchal MD Primary Care Provider +1- [phone] Encounter Details Date Type Department Care Team (Late st Contact Info) Description 06/05/2025 Telephone [facility] RHEUMATOLOGY [address] [address] John Sheppard APRN [address] [address] Social History Tobacco Use Types Packs/Day Years Used Date Smoking Tobacco: Never Passive Smoke Exposure: Past Smokeless Tobacco: Never Comments: smokes, for 45 years Alcohol Use Standard Drinks/Week Comments No 0 (1 standard drink = 0.6 oz pur e alcohol) [facility] Utilities Answer Date Recorded In the past 12 months has [employer], gas, oil, or water [employer] threatened to shut off services in your [...] encounter Miscellaneous Notes * Telephone Encounter - Haley Cabrera RN - 06/05/2025 6:05 PM EDT I went over reclast information with patient's granddaughter Erica. I told her the importance of letting us know if there is any dental work completed or scheduled outside of a standard cleaning, as well as, letting the dentist know she is on this medication. I also went over lab schedule prior to infusion. I told her that patient would need to stop alendronate for at least one week prior to Reclast and will remain off of this after treatment as they cannot be taken together. I told her the infusion length as well as this is a once a year treatment. I did tell her that patient will be premedicated with tylenol as this may cause bone pain but told her if she developed any numbness or tingling to call our office immediately or if patient developed anything side effects severe in nature to go to the ER. Erica verbalized understanding. * Telephone Encounter - Haley Cabrera RN - 06/05/2025 3:53 PM EDT I am so sorry to ask, How long does she need to be off of the alendronate to have the reclast? * Telephone Encounter - John Sheppard APRN - 06/05/2025 12:07 PM EDT Please PA IV reclast. Can you also call patient and tell her to stop alendronate and we will try for Reclast here. She is unsure how long she has been on alendronate but thinks it was [id number] when she originally started it. It was from PCP. We restarted in in 2021 because of non-compliance per note in [employer]. She will need a Vitamin D and calcium prior. I can order once approved. Thanks * Telephone Encounter - John Sheppard APRN - 06/05/2025 11:17 AM EDT Please see if we can infuse her here on Wednesdays. She is due 07/18/25. * Telephone Encounter - John Sheppard APRN - 06/05/2025 11:11 AM EDT Please get hospital records from [facility]. documented in this encounter Plan of Treatment Upcoming Encounters Date Type Department Care Team (Late st Contact Info) Description 06/13/2025 10:00 AM EDT Office Visit [facility] UR[facility] 1760 [facility] [address] Sanam Saunders APRN [address] [address] 07/01/2025 11:00 AM EDT Office Visit [facility] UROLOG[facility] 1760 [facility] [address] Brennan Lee MD [address] [address] 07/18/2025 11:30 AM EDT Appointment [facility] OUTPATIENT ONCOLOGY 1740 [facility] [place] [address] 07/31/2025 10:00 AM EDT Office Visit [facility] PULMONARY & CRITICAL CARE MEDICINE 3000 [facility] [address] [place] [address] Arthur Maxine L, STRUCTURAL WELDER [address] [place] [address] 09/24/2025 9:15 AM EST Office Visit [facility] RHEUMATOLOGY 330 [facility] 100 [place] [address] John Sheppard APRN 330 [facility] 100 [place] [address] 02/03/2026 10:45 AM EDT Office Visit [facility] RHEUMATOLOGY [address] [address] Patrice Santana, [address] [phone] documented as of this encounter Goals Goal [...] documented as of this encounter Care Teams [employer] Certified Network Associate Relationship Specialty Start Date End Date Reza Panchal MD [facility] [place] [address] PCP - General Family Medicine 09/30/24 documented as of this encounter
--- OUTSIDE RECORDS SUMMARY | 2025-06-10 11:07 | XMS_ITS | Encounter Summary ---
Author Organization [facility] Address [address] [place] [address] Care Team Providers Care Manager It Security Name Role Phone Reza Panchal MD Primary Care Provider +1- [phone] Encounter Details Date Type Department Care Team (Latest Contact Info) Description 05/23/2025 Travel Social History Tobacco Use Types Packs/Day Years Used Date Smoking Tobacco: Never Passive Smoke Exposure: Past Smokeless Tobacco: Never Comments: smokes, for 45 years Alcohol Use Standard Drinks/Week Comments No 0 (1 standard drink = 0.6 oz pur e alcohol) [facility] Utilities Answer Date Recorded In the [...] Description 06/13/2025 10:00 AM EDT Office Visit [facility] UROLOGY [address] [facility] [address] [place] [address] Sanam Saunders, FREIGHT COORDINATOR [address] [facility] [address] [place] [address] 07/01/2025 11:00 AM EDT Office Visit [facility] UROLOGY [address] [facility] [address] [place] [address] Brennan Lee MD [address] [facility] 502 [place] [address] 07/18/2025 11:30 AM EDT Appointment [facility] OUTPATIENT ONCOLOGY [address] [place] [phone] 07/31/2025 10:00 AM EDT Office Visit [facility] PULMONARY & CRITICAL CARE MEDICINE 3000 [facility] [address] [place] [address] Maxine Gibson, FREIGHT COORDINATOR [address]00 [place] [address] 09/24/2025 9:15 AM EST Office Visit [facility] RHEUMATOLOGY [address] [address] John Sheppard, FREIGHT COORDINATOR [address] [address] 02/03/2026 10:45 AM EDT Office Visit [facility] RHEUMATOLOGY [address] [address] Patrice Santana DO [address] [address] documented as of this encounter Goals Goal [...] as of this encounter Care Teams Manager It Security Relationship Specialty Start Date End Date Reza Panchal MD [facility]0 [place] [address] PCP - General Family Medicine 09/30/24 documented as of this encounter
--- OUTSIDE RECORDS SUMMARY | 2025-06-10 11:07 | XMS_ITS | Encounter Summary ---
Author Organization [facility] Address [address] [place] [address] Care Team Providers Care Performance Improvement Consultant Name Role Phone Reza Panchal MD Primary Care Provider +1- [phone] Reason for Visit * Reason Comments Med Refill Encounter Details Date Type Department Care Team (Late st Contact Info) Description 03/22/[address] [facility] PRIMARY CARE [address] [address] Huyen Hall MD [address] [address] Acquired hypothyroidism Social History Tobacco Use Types Packs/Day Years Used Date Smoking Tobacco: Never Smokeless Tobacco: Never Comments: smokes, for 45 years Alcohol Use Standard Drinks/Week Comments No 0 (1 standard drink = 0.6 oz pur e alcohol) [facility] Utilities Answer Date Recorded In the past 12 months has [employer], gas, oil, or water company threatened [...] or training? Not on file Preferred Language Beninese 01/11/2024 PHQ-2 Answer Date Recorded Retired PHQ-9: [...] 06/13/2025 10:00 AM EDT Office [address] [facility] UROLOGY [address]60 [facility] [address] [place] [address] Sanam Saunders, SHEET METAL OPERATOR [address] [address] 07/01/2025 11:00 AM EDT Office Visit [facility] UROLOGY [address] [address] Brennan Lee MD [address] [address] 07/18/2025 11:30 AM EDT Appointment [facility] OUTPATIENT ONCOLOGY 1740 [place] [phone] 07/31/2025 10:00 AM EDT Office [address] [facility] PULMONARY & CRITICAL CARE MEDICINE 3000 [facility] 240 [place] [id number] Maxine Gibson, SHEET METAL OPERATOR [address] [place] [address] 09/24/2025 9:15 AM EST Office Visit [facility] RHEUMATOLOGY 330 [facility] 100 [place] [address] John Sheppard SHEET METAL OPERATOR 330 [facility] 100 [place] [address] 02/03/2026 10:45 AM EDT Office Visit [facility] RHEUMATOLOGY [address] [place] [address] Patrice Santana, [address] [facility] 100 [place] [address] documented as of this encounter Goals Goal [...] documented as of this encounter Care Teams Performance Improvement Consultant Relationship Specialty Start Date End Date Reza Panchal MD [facility] [place] [address] PCP - General Family Medicine 09/30/24 documented as of this encounter
--- OUTSIDE RECORDS SUMMARY | 2025-06-10 11:07 | XMS_ITS ---
Author Name Ephraim RN, HOOP RIVETING MACHINE OPERATOR HELPER, Leigh martinez Sarina Address [address] [address] Phone [phone] Organization [facility] Care Team Providers Care Employment Service Specialist Name Role Phone Ivonne Ye Unavailable [phone] Reason for Referral Not Available Allergies, adverse [...] 50 mg Tab TAKE 1 TABLET BY [facility] ONCE DAILY IN AM WITH FOOD FOR [...] mg Cap TAKE 1 CAPSULE BY [facility] TWICE DAILY FOR 10 DAYS [...] EVERY 12 HOURS 2024-01-03 No Data Available [id number]-[id number] [id number] Suspension SHAKE LIQUID AND INSTILL 1 DROP [...] mplaint [facility] 7 Day Disch [place], [place] 12/25/2024 Encntr for f/u exam aft trtm t for cond oth than malig neoplmSepsis, unspecified organism [facility] 7 Day Disch [place] 12/25/2024 Encntr for f/u exam aft trtm t for cond oth than malig neoplmSepsis, unspecified organism [facility] 7 Day Disch [place] 12/25/2024 Encntr for f/u exam aft trtm t for cond oth than malig neoplmSepsis, unspecified organism [facility] 7 Day Disch [place] 12/25/2024 Encntr for f/u exam aft trtm t for cond oth than malig neoplmSepsis, unspecified organism Telephone E/M Service; 5-10 min of Medical Discussion (Audio Only) [place], 12/27/2024 Sepsis, unspecified organism Telephone E/M Service; 5-10 min of Medical Discussion (Audio Only) [place], 12/27/2024 Sepsis, unspecified organism Vital Signs Date of Collection Vitals 2024-12-25 14:07:15 BP Diastolic - 79.0 mm[Hg]BP Systolic - 143.0 mm[Hg]Heart Rate - 92.0 /min Social History Sex Female History of Procedures Procedures Service Procedure code Service date Servicing provider Phone# [facility] 7 Day Disch [id number] 2024-12-25 No Data Available No Data Avail [...] 5-10 min of Medical Discussion (Audio Only) [id number] 2024-12-27 No Data Available No Data Availa [...] getting around the house wellLana Erica is POA/marine fireman - she comes over and cooks meals, cleans the house, brings her to appts and the grocery store because pt gets out of breath with too much walkingPD will be a phone visit (Cannot be the following states: [place], [place], [place], [place], [place], [place], [place], [place], [place])Pt Agreed to a post discharge visit with a [facility] Provider: with Ivelisse Reed Friday, December 27, 2024 4:00pm ESTRN reinforced availability of UC provider 24/ for 30 days after discharge and encouraged CB w/ any concerns or if pt is worse in any way. Advised pt to call to reach our staff.Needs/concerns for [facility] provider to address during PD visit: 1) [...] review 2024-12-27 Type of Visit: [facility]: [facility] Date: 12/19/24Discharge diagnosis: Sepsis, [...]
--- OUTSIDE RECORDS SUMMARY | 2025-06-10 11:07 | XMS_ITS | Clinical Summary ---
Author Organization [facility] Address [address] [facility] [address] [place] [address] Phone Care Team Providers Care Staff Anesthetist Name Role Phone Unavailable Unavailable Conditions or Problems No information available. Medications No information available. Medications Administered No information available. Allergies, Adverse Reactions, Alerts No information available. Results No information available. Plan of Care No information available. Procedures No information available. Vital Signs No information available. Immunizations No information available. Advance Directives No information available.
--- OUTSIDE RECORDS SUMMARY | 2025-06-10 11:08 | XMS_ITS | Encounter Summary ---
Author Organization [facility] Address [address] [place] [address] Care Team Providers Care Ballistics Teacher Name Role Phone Reza Panchal MD Primary Care Provider +1- [phone] Encounter Details Date Type Department Care Team [...] Description 06/13/2025 10:00 AM EDT Office Visit [facility] UROLOGY [address]60 [facility] 502 [place] [address] Sanam Saunders, [employer] [address] [facility] [address] [place] [address] 07/01/2025 11:00 AM EDT Office Visit [facility] UROLOGY [address] [facility] 502 [place] [address] Brennan Lee MD [address]60 [facility] 502 [place] [address] 07/18/2025 11:30 AM EDT Appointment [facility] OUTPATIENT ONCOLOGY [address] [place] [phone] 07/31/2025 10:00 AM EDT Office Visit [facility] PULMONARY & CRITICAL CARE MEDICINE 3000 [facility] [address] [place] [address] Maxine Gibson, [employer] [address] [place] [address] 09/24/2025 9:15 AM EST Office Visit [facility] RHEUMATOLOGY [address] [address] John Sheppard, [employer] [address] [address] 02/03/2026 10:45 AM EDT Office Visit [facility] RHEUMATOLOGY [address] [address] Patrice Santana DO [address] [address] documented as of this encounter Goals Goal [...] documented as of this encounter Care Teams Ballistics Teacher Relationship Specialty Start Date End Date Reza Panchal MD [facility] [place] [address] PCP - General Family Medicine 09/30/24 documented as of this encounter
--- OUTSIDE RECORDS SUMMARY | 2025-06-10 11:08 | XMS_ITS | Encounter Summary ---
[facility] Organization [facility] Address [address] [place] [address] Care Team Providers Care Sewing Machine Operator Paper Bags Name Role Phone Reza Panchal MD Primary Care Provider +1- [phone] Reason for Visit * Reason Onset Date Comments CANCEL PROCEDURE 05/28/2025 Encounter Details Date Type Department Care Team (Late st Contact Info) Description 05/28/2025 Telephone [facility] GASTROENTEROLOGY [address] [address] Ivelisse Cordon MD 1720 [place] [address] CANCEL PROCEDURE Social History Tobacco Use Types Packs/Day Years Used Date Smoking Tobacco: Never Passive Smoke Exposure: Past Smokeless Tobacco: Never Comments: smokes, for 45 years Alcohol Use Standard Drinks/Week Comments No 0 (1 standard drink = 0.6 oz pur e alcohol) [facility] Utilities Answer Date Recorded In the past 12 months has [employer], gas, oil, or water company threatened to [...] patient: Emergency Contact Best call back number: [phone] Chief complaint: CANCEL PROCEDURE Type of visit: EGD Requested date: NONE If rescheduling, when is the original appointment: 06/23/2025 Additional notes:PT HAD TO HAVE EGD DONE WHILE IN THE HOSPITAL. PLEASE CANCEL PROCEDURE documented in this encounter Plan of Treatment Upcoming Encounters Date Type Department Care Team (Late st Contact Info) Description 06/13/2025 10:00 AM EDT Office Visit [facility] UROLOGY [address] [place] [address] Sanam Saunders APRN [address]60 [facility] [address] [place] [address] 07/01/2025 11:00 AM EDT Office Visit [facility] UROLOGY [address] [place] [address] Brennan Lee MD [address] [address] 07/18/2025 11:30 AM EDT Appointment [facility] OUTPATIENT ONCOLOGY [address] [place] [phone] 07/31/2025 10:00 AM EDT Office Visit [facility] PULMONARY & CRITICAL CARE MEDICINE [address] [phone] Maxine Gibson, SHAFTING WORKER [address] [place] [address] 09/24/2025 9:15 AM EST Office Visit [facility] RHEUMATOLOGY [address] [address] John Sheppard, SHAFTING WORKER [address] [id number] 02/03/2026 10:45 AM EDT Office Visit [facility] RHEUMATOLOGY [address] [address] aPtrice Santana, [address] [address] documented as of this encounter [...] of this encounter Care Teams Sewing Machine Operator Paper Bags Relationship Specialty Start Date End Date Reza Panchal MD [facility] [place] [address] PCP - General Family Medicine 09/30/24 documented as of this encounter
== END 2025-06-10 23:59 | disposition home or self-care (01) ==
LOC: RT 10:59
PROVIDERS: PCP Family Medicine; Visit Provider Physician Assistant
DX: I25.10 Atherosclerotic heart disease of native coronary artery without angina pectoris (principal); I10 Essential (primary) hypertension; R60.0 Localized edema; Z86.718 Personal history of other venous thrombosis and embolism
CPT/HCPCS: 93970

== ENCOUNTER 2025-06-19 10:19 | Outpatient (CLI) | payer MEDICARE, MEDICAID, SELFPAY ==
--- OUTSIDE RECORDS SUMMARY | 2017-02-08 12:08 | XMS_ITS | Encounter Summary ---
[facility] Address [address] [place] [address] Care Team Providers Care Pediatrics Teacher Name Role Phone Lizbeth Ibarra MD Primary Care Provider Unav ailable Encounter Details Date Type Department Care Team (Late st Contact Info) Description 02/08/2017 12:08 PM EDT Hospital Encounter [facility] PULMONARY & CRITICAL CARE MEDICINE [address] [place] [phone] Social History Tobacco Use Types Packs/Day Years Used Date Smoking Tobacco: Never Passive Smoke Exposure: Past Smokeless Tobacco: Never Comments: smokes, for 45 years Alcohol Use Standard Drinks/Week Comments No 0 (1 standard drink = 0.6 oz pur e alcohol) [facility] Utilities Answer Date Recorded In the past 12 months has [employer], gas, oil, or water [employer] threatened to shut off services in your [...] or training? Not on file Preferred Language Turkmen 01/28/2025 PHQ-2 Answer Date Recorded Retired PHQ-9: [...] 7:09 AM EDT Dary Chapin RN * [place] Suicide Severity Rating Scale (Screener/Recent Self-Report) Question Answer Date of Assessment Author 6. Suicidal Behavior (Lifetime) No 7:09 AM EDT Dary Benites, SRAAVNI documented as of this encounter Plan of Treatment Upcoming Encounters Date Type Department Care Team (Late st Contact Info) Description 06/25/2025 9:00 AM EDT Infusion [facility] OUTPATIENT ONCOLOGY [address] [place] [address] 07/01/2025 11:00 AM EDT Office Visit [facility] UROLOGY 1760 [facility] [address] [place] [phone] Brennan Lee MD 1760 [facility] [address] [place] [phone] 07/23/2025 10:00 AM EDT Infusion [facility] OUTPATIENT ONCOLOGY [place] 330 [facility] 110 [place] [address] 07/31/2025 10:00 AM EDT Office Visit [facility] PULMONARY & CRITICAL CARE MEDICINE 3000 [facility] 240 [place] [address] Maxine Gibson, MANAGER REPORTING [address] [place] [phone] 09/02/2025 10:00 AM EST Office Visit [facility] UROLOGY 1760 [facility] 502 [place], [place] [address] Sanam Saunders, MANAGER REPORTING 1760 [facility] [address] [place] [address] 09/24/2025 9:15 AM EST Office Visit [facility] RHEUMATOLOGY [address] [address] John Sheppard, MANAGER REPORTING [address] [id number] 02/03/2026 10:45 AM EDT Office Visit [facility] RHEUMATOLOGY [address] [address] Patrice Santana DO [address] [address] documented as of this encounter [...] Clean and Dry Patient Goals Nathalia Kovacs, SRAVANI Note: Follow Up Date - clean and dry skin well Why is this important? Leaking urine (pee) can cause soreness from skin rashes and redness. This is caused by skin being exposed to urine (pee). Notes: Track and Manage My Symptoms Patient Goals No Nathalia Phelan, SRAVANI Note: Follow Up Date - not [...] documented as of this encounter Care Teams Pediatrics Teacher Relationship Specialty Start Date End Date Lizbeth Ibarra MD PCP - General 06/18/15 07/10/17 documented as of this encounter
--- OUTSIDE RECORDS SUMMARY | 2022-02-25 11:00 | XMS_ITS | Encounter Summary ---
Author Organization [facility] Address [address] [place] [address] Care Team Providers Care Records Specialist Name Role Phone Johanna Jeffrey MD Primary Care Provider +1- [phone] Reason for Visit * Monitoring (Routine) - Closed Specialty Diagnoses / Procedures Referred By Tia t Referred To Contact Diagnoses Palpitations Dizziness Procedures Mobile Cardiac Outpatient Telemetry Cardiac Event Monitor Tiffany Maier MD [address] [place] [address] Phone: tel: fax: [facility] [address] [facility] [address] [facility] 100 [place] [address] Phone: tel: Referral ID Status Reason Start Date Expiration Date Visits Re quested Visits Authorized [id number] Closed 02/25/2022 02/25/2023 1 1 Encounter Details Date Type Department Care Team (Late st Contact Info) Description 02/25/2022 11:00 AM EDT Hospital Encounter [facility] CARDIOLOGY [address] [place] [address] Palpitations; Dizziness Social History Tobacco Use Types Packs/Day Years Used Date Smoking Tobacco: Never Passive Smoke Exposure: Past Smokeless Tobacco: Never Comments: smokes, for 45 years Alcohol Use Standard Drinks/Week Comments No 0 (1 standard drink = 0.6 oz pur e alcohol) [facility] Utilities Answer Date Recorded In the past 12 months has th e electric, [employer], oil, or water [employer] threatened to shut off services in your [...] 7:09 AM EDT Dary Chapin RN * [place] Suicide Severity Rating Scale (Screener/Recent Self-Report) Question Answer Date of Assessment Author 6. Suicidal Behavior (Lifetime) No 7:09 AM EDT Dary Benites, RN documented as of this encounter Plan of Treatment Upcoming Encounters Date Type Department Care Team (Late st Contact Info) Description 06/25/2025 9:00 AM EDT Infusion [facility] OUTPATIENT ONCOLOGY [place] [address] [place] [address] 07/01/2025 11:00 AM EDT Office Visit [facility] UROLOGY [address] [place] [address] Brennan Lee MD 1760 [facility] 502 [place] [address] 07/23/2025 10:00 AM EDT Infusion [facility] OUTPATIENT ONCOLOGY [place] 330 [facility] [address] [place] [address] 07/31/2025 10:00 AM EDT Office Visit [facility] PULMONARY & CRITICAL CARE MEDICINE 3000 [facility] [address] [place] [address] Maxine Gibson, DISABILITY ADVOCATE [address] [place] [address] 09/02/2025 10:00 AM EST Office Visit [facility] UROLOGY 1760 [facility] 502 [place], [place] [address] Sanam Saunders, DISABILITY ADVOCATE 1760 [facility] 502 [place], [place] [address] 09/24/2025 9:15 AM EST Office Visit [facility] RHEUMATOLOGY [address] [place] [address] John Sheppard APRN 330 [facility] 100 [place], [place] [address] 02/03/2026 10:45 AM EDT Office Visit [facility] RHEUMATOLOGY [address] [place] [address] Patrice Santana, [address] [facility] 100 [place], [place] [address] documented as of this encounter Goals Goal [...] and Manage My Symptoms Patient Goals Nathalia Kvoacs RN Note: Follow Up Date - not [...] 21 hours and 51 minutes. Total beats: [id number]. Average HR: 83. Min HR: 48. Max [...] documented as of this encounter Care Teams Records Specialist Relationship Specialty Start Date End Date Johanna Jeffrey MD Mike [address] [address] PCP - General Internal Medicine 10/20/21 08/20/22 documented as of this encounter
--- OUTSIDE RECORDS SUMMARY | 2024-04-23 19:45 | XMS_ITS | Encounter Summary ---
[facility] Address [address] [place] [address] Care Team Providers Care Instructor Flying Name Role Phone Rafael Pal MD, Huyen Primary Care Provider [phone] Reason for Referral * Hospital - Outpatient [...] or More Parameters Ijeoma Payne APRN [address] [place] [address] Phone: tel: fax: [facility] [address] [address] Phone: tel: fax: Referral ID Status Reason Start Date Expiration Date Visits Re quested Visits Authorized [id number] Closed 12/19/2023 12/18/2024 1 1 Reason for [...] or More Parameters Ijeoma Payne, PARVIZ [address] [facility] [address] Phone: tel: fax: [facility] [address] [address] Phone: tel: fax: Referral ID Status Reason Start Date Expiration Date Visits Re quested Visits Authorized [id number] Closed 12/19/2023 12/18/2024 1 1 Encounter Details Date Type Department Care Team (Late st Contact Info) Description 04/23/2024 7:45 PM EDT Hospital Encounter [facility] [address] [place] [address] Ijeoma Payne, PARVIZ [address] [place] [address] Dementia, unspecified dementia severity, unspecified dementia type, [...] drink = 0.6 oz pur e alcohol) [facility] Utilities Answer Date Recorded In the past 12 months has [employer], gas, oil, or water [employer] threatened to shut off services in your [...] or training? Not on file Preferred Language [place] Islander 01/28/2025 PHQ-2 Answer Date Recorded Retired PHQ-9: [...] 7:09 AM EDT Dary Chapin RN * [place] Suicide Severity Rating Scale (Screener/Recent Self-Report) Question Answer Date of Assessment Author 6. Suicidal Behavior (Lifetime) No 7:09 AM EDT Dary Benites, RN documented as of this encounter Plan of Treatment Upcoming Encounters Date Type Department Care Team (Late st Contact Info) Description 06/25/2025 9:00 AM EDT Infusion [facility] [place] [address] [place] [address] 07/01/2025 11:00 AM EDT Office Visit [facility] [address] [facility] [address] [place] [address] Brennan Lee MD [address] [facility] [address] [place] [address] 07/23/2025 10:00 AM EDT Infusion [facility] [place] [address] [place] [address] 07/31/2025 10:00 AM EDT Office Visit [facility] PULMONARY & CRITICAL CARE MEDICINE [address] [facility] [address] [place] [phone] Maxine Gibson, SNUBBER [address] [place] [address] 09/02/2025 10:00 AM EST Office Visit [facility] UROLOGY [address] [facility] [address] [place], [place] [phone] Sanam Saunders, SNUBBER [address] [facility] [address] [place], [place] [id number] 09/24/2025 9:15 AM EST Office Visit [facility] RHEUMATOLOGY [address] [place] [phone] John Sheppard APRN [address] [facility] [address] [place], [place] [id number] 02/03/2026 10:45 AM EDT Office Visit [facility] RHEUMATOLOGY [address] [place] [address] Patrice Santana DO [address] [facility] [address] [place], [place] [id number] documented as of this encounter Goals Goal [...] Procedure Name Priority Date/Time Associated Diagnosis Comments [facility] Routine 04/24/2024 5:23 AM EDT Dementia, unspecified dementia severity, unspecified dementia type, unspecified whether behavioral, psychotic, or mood disturbance or anxiety Essential hypertension Palpitations Suspected sleep apnea Excessive daytime sleepiness Snoring Nightmares Morning headache Psychophysiological insomnia documented in this encounter Results * [facility] (04/24/2024 5:23 AM EDT) Impressions SLEEP MEDICINE [...] agree with the interpretation. Braden To MD, [facility] Critical [facility] and Sleep medicine Narrative [...] documented as of this encounter Care Teams Instructor Flying Relationship Specialty Start Date End Date Huyen Hall MD [address] [place] [address] PCP - General Family Medicine 08/21/22 07/25/24 documented as of this encounter
--- OUTSIDE RECORDS SUMMARY | 2025-04-29 09:30 | XMS_ITS | Encounter Summary ---
Author Organization [facility] Address [address] [place] [address] Care Team Providers Care General Office Dispatcher Name Role Phone Reza Panchal MD Primary Care Provider +1- [phone] Reason for Visit * Reason Comments Sleep Apnea Follow up Encounter Details Date Type Department Care Team (Late st Contact Info) Description 04/29/2025 9:30 AM EDT Office Visit [facility] PULMONARY & CRITICAL CARE MEDICINE [address] [facility] [address] [place] [address] Maxine Gibson, PHYSIOLOGIST [address] [place] [address] Seasonal allergic rhinitis due to pollen (Primary Dx); Chronic cough; GERD without esophagitis; DEVANG (obstructive sleep apnea)/suspected nocturnal hypoxemia.-by history. Intolerant of NIPPV in past. Social History Tobacco Use Types Packs/Day Years Used Date Smoking Tobacco: Never Passive Smoke Exposure: Past Smokeless Tobacco: Never Tobacco Cessation:Counseling Given: Not Answered Comments: smokes, for 45 years Alcohol Use Standard Drinks/Week Comments No 0 (1 standard drink = 0.6 oz pur e alcohol) [facility] Utilities Answer Date Recorded In the past 12 months has [employer] electric, gas, oil, or water company threatened [...] or training? Not on file Preferred Language Citizen Of The [place] 01/28/2025 PHQ-2 Answer Date Recorded Retired PHQ-9: [...] Sign Reading Time Taken Comments Blood Pressure 110/62 04/29/2025 9:36 AM EDT Pulse 66 04/29/2025 9:36 AM EDT Temperature 36.2 C (97.1 F) 04/29/2025 9:36 AM EDT Respiratory Rate - - Oxygen Saturation 96% 04/29/2025 9:3 6 AM EDT 1.5L continuous Inhaled Oxygen Concentration - - Weight 89.4 kg (197 lb) 04/29/2025 9:36 AM EDT Height 152.4 cm (5') 04/29/2025 9:36 AM EDT Body Mass Index 38.47 04/29/2025 9:36 AM EDT documented in this encounter Patient Instructions * Attachments The following attachments cannot be sent through Care Everywhere. * GERD in Adults: Diet Changes (Citizen Of The [place]) documented in this encounter Progress Notes * Maxine Gibson APRN - 04/29/2025 9:30 AM EDT [facility] Follow up CHIEF COMPLAINT fatigue HISTORY OF PRESENT ILLNESS Madison Castellanos is a 69 y.o.female here today for follow-up. She was last seen in the office by me in January. She was recently discharged from [facility] yesterday for aspiration pneumonia and sepsis. The sepsis was due to a UTI. She has been following with her urology in the past. She states she is feeling better but does continue to be weak. She did receive antibiotics and steroids while in the hospital. She has had pneumonia several times this year due to aspiration. She has been seen by gastroenterology in October 2019 for but has not followed up with them recently. She has reflux symptoms and doestake medication twice a day. She still has breakthrough symptoms. She will usually take Tums in theevenings. She sleeps in a recliner. She typically does eat and drink close to bedtime. She is using the Advair twice a day. She occasionally will use the albuterol but not often. She hasshort of breath with exertion. She states that she is not active at all. She denies any chest pain or palpitations. She denies any lower extremity edema or calf tenderness. She denies any sputum production or hemoptysis. She denies any fever, chills or night sweats. At her last appointment she was getting ready to start her CPAP but unfortunately she could not tolerate it and turn the machine back in. She is currently using 1.5 L of oxygen during the day but not wearing it at nighttime. She did wearit while was in the hospital. She continues to follow with rheumatology for her rheumatoid arthritis. She is companied today by her family. Patient Active Problem List Diagnosis Allergic bronchitis Allergic rhinitis Seropositive rheumatoid arthritis Chronic cough Chronic pain Essential hypertension GERD without esophagitis Hiatal hernia High risk medication use Hyperlipidemia Hypothyroidism Postmenopausal status Obesity Depression Hearing loss MVP (mitral valve prolapse) Palpitations Migraine Osteoarthritis Angina pectoris Diabetes mellitus type 2 in obese History of Araseli fundoplication Hypokalemia Hypomagnesemia Type 2 diabetes mellitus with retinopathy, without long-term current use of insulin Acute deep vein thrombosis (DVT) of left peroneal vein Pneumonia due to COVID-19 virus Acute UTI (urinary tract infection) Epistaxis Sepsis Background retinopathy due to secondary diabetes Shortness of breath Precordial pain Dizziness History of DVT (deep vein thrombosis) Acute chest pain Headache Acute neck pain Carpal tunnel syndrome Rheumatoid arthritis involving multiple sites with positive rheumatoid factor Acute pain of left shoulder Delayed gastric emptying -based on nuclear study 2017 Upper respiratory tract infection Mild cognitive impairment DEVANG (obstructive sleep apnea)/suspected nocturnal hypoxemia.-by history. Intolerant of NIPPV in past. Numbness and tingling in both hands Chronic bilateral low back pain with bilateral sciatica Acute right-sided low back pain Hip pain, right Nausea vomiting and diarrhea Hypocalcemia Bradycardia Psoriasis Age-related osteoporosis without current pathological fracture Urge incontinence OAB (overactive bladder) Lower urinary tract symptoms (LUTS) Stress incontinence of urine NSAID long-term use Allergies Allergen Reactions Abilify [Aripiprazole] Other (See Comments) and Dizziness Sleepy and staggering. Codeine Nausea And Vomiting Derivatives Donepezil Other (See Comments) Bad dreams Hydrocodone-Acetaminophen GI Intolerance Imdur [Isosorbide Dinitrate] Nausea And Vomiting headaches Metformin Other (See Comments) Pt refused after reading about carcinogen contamination Current Outpatient Medications: acetaminophen (TYLENOL) 500 MG [...] MOUTH DAILY, Disp: 100 tablet, Rfl: 2 BD Pen Needle Reyna 2nd Gen 32G X 4 MM [facility], USE 1 NEEDLE THREE TIMES DAILY DIRECTED, Disp: , Rfl: cefdinir (OMNICEF) 300 MG capsule, , Disp: , Rfl: chlorthalidone (HYGROTON) 25 MG [...] THREE TIMES DAILY (Patient taking differently: Take 3 capsules by mouth 3 (Three) Times a Day.), [...] mouth Daily., Disp: 90 tablet, Rfl: 3 nitroglycerin (NITROSTAT) 0.4 MG SL tablet, Place [...] tablet by mouth Daily., Disp: , Rfl: prasugrel (EFFIENT) 10 MG [...] tablets by mouth Daily., Disp: , Rfl: atorvastatin (LIPITOR) 20 MG tablet, Take 1 tablet by mouth Daily., Disp: 90 tablet, Rfl: 0 MEDICATION LIST AND ALLERGIES REVIEWED. Social History Tobacco Use Smoking status: Never Passive exposure: Past Smokeless tobacco: Never Tobacco comments: smokes, for 45 years Vaping Use Vaping status: Never Used Substance Use Topics Alcohol use: No Drug use: No FAMILY AND SOCIAL HISTORY REVIEWED. Review of Systems Constitutional: Positive for fatigue. Negative for activity change, appetite change, fever and unexpected weight change. HENT: Negative for congestion, postnasal drip, rhinorrhea, sinus pressure, sore throat and voice change. Eyes: Negative for visual disturbance. Respiratory: Positive for cough and shortness of breath. Negative for chest tightness and wheezing. Cardiovascular: Negative for chest pain, palpitations and leg swelling. Gastrointestinal: Negative for abdominal distention, abdominal pain, nausea and vomiting. Endocrine: Negative for cold intolerance and heat intolerance. Genitourinary: Negative for difficulty urinating and urgency. Musculoskeletal: Negative for arthralgias, back pain and neck pain. Skin: Negative for color change and pallor. Allergic/Immunologic: Negative for environmental allergies and food allergies. Neurological: Negative for dizziness, syncope, weakness and light-headedness. Hematological: Negative for adenopathy. Does not bruise/bleed easily. Psychiatric/Behavioral: Negative for agitation and behavioral problems. . BP 110/62 Pulse 66 Temp 97.1 ??F (36.2 ??C) Ht 152.4 cm (60 ) Wt 89.4 kg (197 lb) LMP (LMP Unknown) SpO2 96% Comment: 1.5L continuous BMI 38.47 kg/m?? Immunization History Administered Date(s) Administered Flu Vaccine Quad PF >36MO 11/18/2021 Fluzone (or Fluarix & Flulaval for VFC) >6mos 08/06/2020, 11/18/2021 Fluzone High-Dose 65+YRS 08/06/2024 Fluzone High-Dose 65+yrs 08/29/2022, 07/05/2023 Hepatitis A 09/07/2018 INFLUENZA SPLIT TRI 08/15/2018 Influenza, Unspecified 07/16/2019 PPD Test 06/25/2001 Pneumococcal Conjugate 20-Valent (PCV20) 09/07/2022 Pneumococcal Polysaccharide (PPSV23) 08/24/2010, 07/16/2019 Shingrix 10/03/2024, 12/05/2024 flucelvax quad pfs =>4 YRS 08/07/2018, 07/16/2019 Physical Exam Vitals and nursing note reviewed. Constitutional: Appearance: She is well-developed. She is not diaphoretic. HENT: Head: Normocephalic and atraumatic. Eyes: Pupils: Pupils are equal, round, and reactive to light. Neck: Thyroid: No thyromegaly. Cardiovascular: Rate and Rhythm: Normal rate and regular rhythm. Heart sounds: Normal heart sounds. No murmur heard. No friction rub. No gallop. Pulmonary: Effort: Pulmonary effort is normal. No respiratory distress. Breath sounds: Normal breath sounds. No wheezing or rales. Chest: Chest wall: No tenderness. Abdominal: General: Bowel sounds are normal. Palpations: Abdomen is soft. Tenderness: There is no abdominal tenderness. Musculoskeletal: General: No swelling. Normal range of motion. Cervical back: Normal range of motion and neck supple. Lymphadenopathy: Cervical: No cervical adenopathy. Skin: General: Skin is warm and dry. Capillary Refill: Capillary refill takes less than 2 seconds. Neurological: Mental Status: She is alert and oriented to person, place, and time. Psychiatric: Mood and Affect: Mood normal. Behavior: Behavior normal. RESULTS PROBLEM LIST Problem List Items Addressed This Visit Allergies and Adverse Reactions Allergic rhinitis - Primary Gastrointestinal Abdominal GERD without esophagitis Pulmonary and Pneumonias Chronic cough Relevant Medications Fluticasone-Salmeterol (ADVAIR/WIXELA) 100-50 MCG/ACT DISKUS albuterol sulfate HFA 108 (90 Base) MCG/ACT inhaler Sleep DEVANG (obstructive sleep apnea)/suspected nocturnal hypoxemia.-by history. Intolerant of NIPPV in past. DISCUSSION Ms. Castellanos was here for follow-up. She has been doing okay from a pulmonary standpoint. She was recently hospitalized for sepsis and aspiration pneumonia. She continues to have recurrent reflux symptoms and is not following reflux precautions. I did advise her to continue the Protonix twice a day and to elevate her head of the bed at night, not eat 2 to 3 hours before bed and avoid foods that trigger reflux symptoms. I did advise her to stop drinkingclose to bedtime as well. I also advised her to follow back up with gastroenterology and her familyis going to schedule a follow-up. She will continue her allergy medicine daily. She will continue Advair twice a day. She will continue to wear her oxygen to maintain saturation above 88%. I did advise her to wear heroxygen at nighttime when she is sleeping since she cannot tolerate the CPAP. We will schedule her follow-up in 3 months. I personally spent a total of 35 minutes on patient visit today including chart review, face to face with the patient obtaining the history and physical exam, review of pertinent images and tests, counseling and discussion and/or coordination of care as described above, and documentation. Total time excludes time spent on other separate services such as performing procedures or test interpretation, if applicable. Maxine Gibson APRN 512:39 EDT Electronically signed Please note that portions of this note were completed with a voice recognition program. CC: Reza Panchal MD documented in this encounter Plan of Treatment Upcoming Encounters Date Type Department Care Team (Late st Contact Info) Description 06/25/2025 9:00 AM EDT Infusion [facility] OUTPATIENT ONCOLOGY [place] [address] [place] [address] 07/01/2025 11:00 AM EDT Office Visit [facility] UROLOGY [address] [place] [address] Brennan Lee MD [address] [facility] [address] [place] [address] 07/23/2025 10:00 AM EDT Infusion [facility] OUTPATIENT ONCOLOGY [place] [address] [place] [address] 07/31/2025 10:00 AM EDT Office Visit [facility] PULMONARY & CRITICAL CARE MEDICINE [address] [facility] [address] [place] [address] Maxine Gibson, PHYSIOLOGIST [address] [place] [address] 09/02/2025 10:00 AM EST Office Visit [facility] UROLOGY [address] [facility] [address] [place] [address] Sanam Saunders, PHYSIOLOGIST [address] [facility] [address] [place] [address] 09/24/2025 9:15 AM EST Office Visit [facility] RHEUMATOLOGY [address] [place] [address] John Sheppard APRN 330 [facility] [address] [place] [address] 02/03/2026 10:45 AM EDT Office Visit [facility] RHEUMATOLOGY [address] [place] [address] Patrice Santana DO [address] [facility] [address] [place], [place] [id number] documented as of this encounter Goals Goal [...] as of this encounter Visit Diagnoses Diagnosis Seasonal allergic rhinitis due to pollen- Primary Chronic cough Cough GERD without esophagitis Esophageal reflux DEVANG (obstructive sleep apnea)/suspected nocturnal hypoxemia.-by history. Intolerant of NIPPV in past. Obstructive sleep apnea (adult) (pediatric) documented in this encounter Additional Health Concerns Infection Onset Date Last Indicated Resolved Time Hepatitis A 04/12/2024 04/12/2024 Assessment Noted Time PHQ-2 Depression Total Score: 1 05/20/20 24 11:00 AM EDT documented as of this encounter Care Teams General Office Dispatcher Relationship Specialty Start Date End Date Reza Panchal MD [address] [place] [address] PCP - General Family Medicine 09/30/24 documented as of this encounter
--- OUTSIDE RECORDS SUMMARY | 2025-05-06 10:30 | XMS_ITS | Encounter Summary ---
[facility] Address [address] [place] [address] Care Team Providers Care Line Crew Supervisor Name Role Phone Reza Panchal MD Primary Care Provider +1- [phone] Reason for Referral * Diagnostic Medical (Routine) - Authorized Specialty Diagnoses / Procedures Referred By Tia holman Referred To Contact Gastroenterology Diagnoses Esophageal dysphagia Gastroesophageal reflux disease, unspecified whether esophagitis present Palak Graham PA-C [address] [facility] [address] [place] [address] Phone: tel: fax: [facility] GASTROENTEROLOGY 17[address] [facility] [address] [place] [phone] Phone: tel: fax: Referral ID Status Reason Start Date Expiration Date Visits Requested Visits Authorized [id number] Authorized Specialty Services Required 05/06/2025 08/05/2026 1 1 Reason for Visit * Reason Comments Gastroesophageal reflux disease, esophag itis Encounter Details Date Type Department Care Team ([facility] Contact Info) Description 05/06/2025 10:30 AM EDT Office Visit [facility] GASTROENTEROLOGY [address] [facility] [address] [place] [phone] Palak Graham PA-C [address] [place] [address] Esophageal dysphagia (Primary Dx); Gastroesophageal reflux disease, unspecified whether esophagitis present; History of Jacqui fundoplication; History of aspiration pneumonia Social History Tobacco Use Types Packs/Day Years Used Date Smoking Tobacco: Never Passive Smoke Exposure: Past Smokeless Tobacco: Never Comments: smokes, for 45 years Alcohol Use Standard Drinks/Week Comments No 0 (1 standard drink = 0.6 oz pur e alcohol) [facility] Utilities Answer Date Recorded In the past 12 months has [employer], gas, oil, or water company threatened to [...] great granddaughters. Patient reportsanika was discharged from [facility] on 04/28/2025 for sepsis secondary to [...] details and recommendations. Colonoscopy 07/2023 Dr. 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 SPINAL CORD STIMULATOR IMPLANT 02/2021 [...] Fundoplication H/o aspiration pneumonia Request records from [facility] from recent visit from 04/24- 04/28/25.She [...] opinion of the practitioner. Palak Graham PA-C [facility] Gastroenterology documented in this encounter Plan of Treatment Upcoming Encounters Date Type Department Care Team (Late st Contact Info) Description 06/25/2025 9:00 AM EDT Infusion OUTPATIENT ONCOLOGY [facility] [address] [facility] 110 [place] [address] 07/01/2025 11:00 AM EDT Office Visit [facility] UROLOGY 1760 [facility] 502 [place] [address] Brennan Lee MD 1760 [facility] 502 [place] [address] 07/23/2025 10:00 AM EDT Infusion OUTPATIENT ONCOLOGY [place] [address] [facility] 110 [place] [address] 07/31/2025 10:00 AM EDT Office Visit [facility] PULMONARY & CRITICAL CARE MEDICINE 3000 [facility] 240 [place] [phone] Maxine Gibson, LAB PACK CHEMIST [address] [place] [address] 09/02/2025 10:00 AM EST Office Visit [facility] UROLOGY 1760 [facility] 502 [place] [address] Sanam Saunders, LAB PACK CHEMIST 1760 [facility] 502 [place] [address] 09/24/2025 9:15 AM EST Office Visit [facility] RHEUMATOLOGY 330 [facility] 100 [place] [address] John Sheppard, PARVIZ [address] [facility] 100 [place] [address] 02/03/2026 10:45 AM EDT Office Visit [facility] RHEUMATOLOGY 330 [facility] 100 [place] [address] Patrice Santana DO [address] [place] [address] Scheduled Referrals Name Type Priority Associated Diagnoses [...] - 4.200 uIU/mL 05/06/2025 7:29 PM EDT [facility] Blood Venipuncture / Unknown 05/06/2025 12:01 PM EDT 05/06/2025 12:01 PM EDT Palak Graham PA-C LAB BLOOD ORDERABLES Final Result [facility]
[address] [place] [address], * (ABNORMAL) Comprehensive Metabolic Panel (05/06/2025 12:01 PM EDT) Glucose 150(H) 65 - 99 mg/dL 05/06/2025 7:23 PM EDT [facility] BUN 17.0 8.0 - 23.0 mg/dL 05/06/2025 7:23 PM EDT [facility] Creatinine 0.85 0.57 - 1.00 mg/dL 05/06/2025 7:23 PM EDT [facility] Sodium 141 136 - 145 mmol/L 05/06/2025 7:23 PM EDT [facility] Potassium 4.0 3.5 - 5.2 mmol/L 05/06/2025 7:23 PM EDT [facility] Chloride 101 98 - 107 mmol/L 05/06/2025 7:23 PM EDT [facility] CO2 27.3 22.0 - 29.0 mmol/L 05/06/2025 7:23 PM EDT [facility] Calcium 9.4 8.6 - 10.5 mg/dL 05/06/2025 7:23 PM EDT [facility] Total Protein 7.7 6.0 - 8.5 g/dL 05/06/2025 7:23 PM EDT [facility] Albumin 4.0 3.5 - 5.2 g/dL 05/06/2025 7:23 PM EDT [facility] ALT (SGPT) 21 1 - 33 U/L 05/06/2025 7:23 PM EDT [facility] AST (SGOT) 18 1 - 32 U/L 05/06/2025 7:23 PM EDT [facility] Alkaline Phosphatase 98 39 - 117 U/L 05/06/2025 7:23 PM EDT [facility] Total Bilirubin 0.3 0.0 - 1.2 mg/dL 05/06/2025 7:23 PM EDT [facility] Globulin 3.7 gm/dL 05/06/2025 7:23 PM EDT [facility] A/G Ratio 1.1 g/dL 05/06/2025 7:23 PM T [facility] BUN/Creatinine Ratio 20.0 7.0 - 25.0 05/06/2025 7:23 PM T [facility] Anion Gap 12.7 5.0 - 15.0 mmol/L 05/06/2025 7:23 PM [facility] eGFR 75.2 >60.0 mL/min/1.7 3 05/06/2025 7:23 PM [facility] Blood Venipuncture / Unknown 05/06/2025 12:01 PM EDT 05/06/2025 12:01 PM EDT [facility] - 05/06/2025 7:23 PM EDT GFR [...] Graham PA-C LAB BLOOD ORDERABLES Final Result [facility]
[address] [place] [address], documented in this encounter Visit Diagnoses Diagnosis [...] documented as of this encounter Care Teams Line Crew Supervisor Relationship Specialty Start Date End Date Reza Panchal MD [address] [place] [address] PCP - General Family Medicine 09/30/24 documented as of this encounter
--- OUTSIDE RECORDS SUMMARY | 2025-05-06 12:15 | XMS_ITS | Encounter Summary ---
[facility] [address] [place] [address] Care Team Providers Care Director Of Respiratory Therapy Name Role Phone Reza Panchal MD Primary Care Provider +1- [phone] Encounter Details Date Type Department Care Team (Late st Contact Info) Description 05/06/2025 12:15 PM EDT Lab [facility] DIAGNOSTIC [place] AT [address] [place] [address] Esophageal dysphagia; Gastroesophageal reflux disease, unspecified whether esophagitis present Social History Tobacco Use Types Packs/Day Years Used Date Smoking Tobacco: Never Passive Smoke Exposure: Past Smokeless Tobacco: Never Comments: smokes, for 45 years Alcohol Use Standard Drinks/Week Comments No 0 (1 standard drink = 0.6 oz pur e alcohol) [facility] Utilities Answer Date Recorded In the past 12 months has [employer], gas, oil, or water [employer] threatened to shut off services in your [...] or training? Not on file Preferred Language Libyan 01/28/2025 PHQ-2 Answer Date Recorded Retired PHQ-9: [...] Info) Description 06/25/2025 9:00 AM EDT Infusion [facility] OUTPATIENT ONCOLOGY [place] 330 [facility] [address] [place] [phone] 07/01/2025 11:00 AM EDT Office Visit [facility] UROLOGY [address]60 [facility] [address] [place] [address] Brennan Lee MD [address]60 [facility] [address] [place] [address] 07/23/2025 10:00 AM EDT Infusion [facility] OUTPATIENT ONCOLOGY [place] 330 [facility] [address] [place] [phone] 07/31/2025 10:00 AM EDT Office Visit [facility] PULMONARY & CRITICAL CARE MEDICINE 3000 [facility] [address] [place] [address] Maxine Gibson, RIVER CROSSING SUPERVISOR [address] [place] [address] 09/02/2025 10:00 AM EST Office Visit [facility] UROLOGY [address]60 [facility] [address] [place] [address] Sanam Saunders, RIVER CROSSING SUPERVISOR 1760 [facility] [address] [place] [address] 09/24/2025 9:15 AM EST Office Visit [facility] RHEUMATOLOGY 330 [facility] 100 [place] [phone] John Sheppard RIVER CROSSING SUPERVISOR 330 [facility] [address] [place] [address] 02/03/2026 10:45 AM EDT Office Visit [facility] RHEUMATOLOGY [address] [place] [address] Patrice Santana, [address] [place] [address] documented as of this encounter Goals Goal [...] Free T4 (05/06/2025 12:01 PM EDT) Pathologist [facility] TSH 2.680 0.270 - 4.200 uIU/mL 05/06/2025 7:29 PM EDT [facility] Blood Venipuncture / Unknown 05/06/2025 12:01 PM EDT 05/06/2025 12:01 PM EDT Palak Graham PA-C LAB BLOOD ORDERABLES Final Result [facility]
[address] [place] [address], * (ABNORMAL) CBC Auto Differential (05/06/2025 12:01 PM EDT) Pathologist [facility] WBC 6.88 3.40 - 10.80 10*3/mm3 05/06/2025 6:48 PM EDT [facility] RBC 4.42 3.77 - 5.28 10*6/mm3 05/06/2025 6:48 PM EDT [facility] Hemoglobin 13.5 12.0 - 15.9 g/dL 05/06/2025 6:48 PM EDT [facility] Hematocrit 41.0 34.0 - 46.6 % 05/06/2025 6:48 PM EDT [facility] MCV 92.8 79.0 - 97.0 fL 05/06/2025 6:48 PM EDT [facility] MCH 30.5 26.6 - 33.0 pg 05/06/2025 6:48 PM EDT [facility] MCHC 32.9 31.5 - 35.7 g/dL 05/06/2025 6:48 PM EDT [facility] RDW 13.1 12.3 - 15.4 % 05/06/2025 6:48 PM EDT [facility] RDW-SD 44.8 37.0 - 54.0 fl 05/06/2025 6:48 PM EDT [facility] MPV 10.0 6.0 - 12.0 fL 05/06/2025 6:48 PM EDT [facility] Platelets 314 140 - 450 10*3/mm3 05/06/2025 6:48 PM EDT [facility] Neutrophil % 41.1(L) 42.7 - 76.0 % 05/06/2025 6:48 PM EDT [facility] Lymphocyte % 37.1 19.6 - 45.3 % 05/06/2025 6:48 PM EDT [facility] Monocyte % 14.8(H) 5.0 - 12.0 % 05/06/2025 6:48 PM EDT [facility] Eosinophil % 5.4 0.3 - 6.2 % 05/06/2025 6:48 PM EDT [facility] Basophil % 0.7 0.0 - 1.5 % 05/06/2025 6:48 PM EDT [facility] Immature Grans % 0.9(H) 0.0 - 0.5 % 05/06/2025 6:48 PM EDT [facility] Neutrophils, Absolute 2.83 1.70 - 7.00 10*3/mm3 05/06/2025 6:48 PM EDT [facility] Lymphocytes, Absolute 2.55 0.70 - 3.10 10*3/mm3 05/06/2025 6:48 PM EDT [facility] Monocytes, Absolute 1.02(H) 0.10 - 0.90 10*3/mm3 05/06/2025 6:48 PM EDT [facility] Eosinophils, Absolute 0.37 0.00 - 0.40 10*3/mm3 05/06/2025 6:48 PM EDT [facility] Basophils, Absolute 0.05 0.00 - 0.20 10*3/mm3 05/06/2025 6:48 PM EDT [facility] Immature Grans, Absolute 0.06(H) 0.00 - 0.05 10*3/mm3 05/06/2025 6:48 PM EDT [facility] nRBC 0.0 0.0 - 0.2 /100 WBC 05/06/2025 6:48 PM EDT [facility] Blood Venipuncture / Unknown 05/06/2025 12:01 PM EDT 05/06/2025 12:01 PM EDT Palak Graham PA-C LAB BLOOD ORDERABLES Final Result [facility]
[address] [place] [address], * (ABNORMAL) Comprehensive Metabolic Panel (05/06/2025 12:01 PM EDT) Glucose 150(H) 65 - 99 mg/dL 05/06/2025 7:23 PM EDT [facility] BUN 17.0 8.0 - 23.0 mg/dL 05/06/2025 7:23 PM EDT [facility] Creatinine 0.85 0.57 - 1.00 mg/dL 05/06/2025 7:23 PM EDT [facility] Sodium 141 136 - 145 mmol/L 05/06/2025 7:23 PM EDT [facility] Potassium 4.0 3.5 - 5.2 mmol/L 05/06/2025 7:23 PM EDT [facility] Chloride 101 98 - 107 mmol/L 05/06/2025 7:23 PM EDT [facility] CO2 27.3 22.0 - 29.0 mmol/L 05/06/2025 7:23 PM [facility] Calcium 9.4 8.6 - 10.5 mg/dL 05/06/2025 7:23 PM [facility] Total Protein 7.7 6.0 - 8.5 g/dL 05/06/2025 7:23 PM [facility] Albumin 4.0 3.5 - 5.2 g/dL 05/06/2025 7:23 PM [facility] ALT (SGPT) 21 1 - 33 U/L 05/06/2025 7:23 PM [facility] AST (SGOT) 18 1 - 32 U/L 05/06/2025 7:23 PM [facility] Alkaline Phosphatase 98 39 - 117 U/L 05/06/2025 7:23 PM [facility] Total Bilirubin 0.3 0.0 - 1.2 mg/dL 05/06/2025 7:23 PM [facility] Globulin 3.7 gm/dL 05/06/2025 7:23 PM [facility] A/G Ratio 1.1 g/dL 05/06/2025 7:23 PM [facility] BUN/Creatinine Ratio 20.0 7.0 - 25.0 05/06/2025 7:23 PM [facility] Anion Gap 12.7 5.0 - 15.0 mmol/L 05/06/2025 7:23 PM [facility] eGFR 75.2 >60.0 mL/min/1.7 3 05/06/2025 7:23 PM [facility] Blood Venipuncture / Unknown 05/06/2025 12:01 PM EDT 05/06/2025 12:01 PM T [facility] - 05/06/2025 7:23 PM EDT GFR [...] Graham PA-C LAB BLOOD ORDERABLES Final Result [facility]
[address] [place] [address], documented in this encounter Visit Diagnoses Diagnosis Esophageal dysphagia Dysphagia, pharyngoesophageal phase Gastroesophageal reflux disease, unspecified whether esophagitis present documented in this encounter Additional Health Concerns Infection Onset Date Last Indicated Resolved Time Hepatitis A 04/12/2024 04/12/2024 Assessment Noted Time PHQ-2 Depression Total Score: 1 05/20/20 24 11:00 AM EDT documented as of this encounter Care Teams Director Of Respiratory Therapy Relationship Specialty Start Date End Date Reza Panchal MD [id number] [place] [address] PCP - General Family Medicine 09/30/24 documented as of this encounter
--- OUTSIDE RECORDS SUMMARY | 2025-05-14 14:30 | XMS_ITS | Encounter Summary ---
Author Organization [facility] Address [address] [place] [address] Care Team Providers Care Machine Hand Name Role Phone Reza Panchal MD Primary Care Provider +1- [phone] Reason for Visit * Reason Comments recurrent UTI HOSPITAL FOLLOW UP E 'COLI UTI/OAB/CINDY Encounter Details Date Type Department Care Team (Late st Contact Info) Description 05/14/2025 2:30 PM EDT Office Visit [facility] UROLOGY [address] [address] Sanam Saunders, PARVIZ 1760 [facility] [address] [place] [address] Infection due to 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 toxin-producing Escherichia [...] drink = 0.6 oz pur e alcohol) [facility] Utilities Answer Date Recorded In the past 12 months has [email or web address] electric, gas, oil, or water company threatened [...] or training? Not on file Preferred Language Hungarian 01/28/2025 PHQ-2 Answer Date Recorded Retired PHQ-9: [...] Care Everywhere. * Urinary Tract Infection Female (Hungarian) * Vaginal Dryness and Thinning (Atrophic Vaginitis): What to Know Rrdq-pq-Tejw (Hungarian) * Overactive Bladder in Adults: What to Know (Hungarian) documented in this encounter Progress Notes * [...] antibiotics to protect the rectal reservoir including jfcz-ont-bqdouwr yogurt preparations to judy oral pills containing [...] EDTAssociated Problem(s): Yeast dermatitis Orders: nystatin (MYCOSTATIN) [id number] UNIT/GM powder; Apply topically to the appropriate area as directed 3 (Three) Times a Day. POC Urinalysis Dipstick, Automated * Sanam Saunders APRN - 05/14/2025 2:30 PM EDTAssociated Problem(s): Perineal irritation in female Orders: nystatin (MYCOSTATIN) [id number] UNIT/GM powder; Apply topically to the appropriate [...] for 2-week follow-up, post recent hospitalization at [facility] in [place] from 04/24 - 04/28/2025 for E. coli [...] 05/14/2025 Slightly Cloudy (A) Clear Final Specific [place] 05/14/2025 1.015 1.005 - 1.030 Final pH, [...] antibiotics to protect the rectal reservoir including dgcu-lay-nttwunv yogurt preparations to judy oral pills containing [...] Dipstick, Automated Yeast dermatitis Orders: nystatin (MYCOSTATIN) [id number] UNIT/GM powder; Apply topically to the appropriate area as directed 3 (Three) Times a Day. POC Urinalysis Dipstick, Automated Perineal irritation in female Orders: nystatin (MYCOSTATIN) [id number] UNIT/GM powder; Apply topically to the appropriate [...] Info) Description 06/25/2025 9:00 AM EDT Infusion [facility] OUTPATIENT ONCOLOGY [place] [address] [place] [address] 07/01/2025 11:00 AM EDT Office Visit [facility] UROLOGY [address] [place] [address] Brennan Lee MD 1760 [facility] [address] [place] [address] 07/23/2025 10:00 AM EDT Infusion [facility] OUTPATIENT ONCOLOGY [place] [address] [place] [address] 07/31/2025 10:00 AM EDT Office Visit [facility] PULMONARY & CRITICAL CARE MEDICINE 3000 [facility] [address] [place] [phone] Maxine Gibson, CARE DIRECTOR [address] [place] [address] 09/02/2025 10:00 AM EST Office Visit [facility] UROLOGY 1760 [facility] 502 [place], [place] [phone] Sanam Saunders, CARE DIRECTOR 1760 [facility] [address] [place], [place] [id number] 09/24/2025 9:15 AM EST Office Visit [facility] RHEUMATOLOGY [address] [phone] John Sheppard APRN [address] [phone] 02/03/2026 10:45 AM EDT Office Visit [facility] RHEUMATOLOGY [address] [address] Patrice Santana, [address] [phone] documented as of this encounter Goals Goal Patient Goal Type Associated Problems Recent Progress Patient-Stated? Author Track and Manage My Blood Pressure Patient Goals Nathalia Kovacs, SRAVANI Note: Follow Up Date - not [...] Color Yellow Yellow, Straw, Dark Yellow, Ann [facility] Clarity, UA Slightly Cloudy(A) Clear [facility] Specific [place] 1.015 1.005 - 1.030 [facility] pH, Urine 6.0 5.0 - 8.0 [facility] Leukocytes Negative Negative [facility] Nitrite, UA Negative Negative [facility] Protein, POC Negative Negative mg/dL [facility] Glucose, UA 3+(A) Negative mg/dL [facility] Ketones, UA Negative Negative [facility] Urobilinogen, UA 0.2 E.U./dL Normal, 0.2 E.U./dL [facility] Bilirubin Negative Negative [facility] Blood, UA Negative Negative [facility] Lot Number [id number] [facility] Expiration Date 07/20/2026 [facility] Urine 05/14/2025 3:56 PM EDT Sanam Saunders APRN POINT OF CARE TEST ORDE RABYAMEL Final Result [facility]
[address] [place] [address], * LABS SCANNED (05/14/2025) Sanam Saunders APRN [...] documented as of this encounter Care Teams Machine Hand Relationship Specialty Start Date End Date Reza Panchal MD [address] [place] [address] PCP - General Family Medicine 09/30/24 documented as of this encounter
--- OUTSIDE RECORDS SUMMARY | 2025-05-23 13:00 | XMS_ITS | Encounter Summary ---
[facility] Address [address] [place] [address] Care Team Providers Care Golf Club Assembler Name Role Phone Reza Panchal MD Primary Care Provider +1- [phone] Reason for Visit * Episode Based Medications (Routine) - Closed Specialty Diagnoses / Procedures Referred By Tia holman Referred To Contact Diagnoses Rheumatoid arthritis involving multiple sites with positive rheumatoid factor Procedures [place] GOLIMUMAB FOR IV USE 1MG Patrice Santana DO [address] [employer] [address] [place] [address] Phone: tel: fax: [facility] OUTPATIENT ONCOLOGY [address] [place] [address] Phone: tel: fax: Referral ID Status Reason Start Date Expiration Date Visits Re quested Visits Authorized [id number] Closed 05/06/2024 05/06/2025 1 1 Encounter Details Date Type Department Care Team (Latest Contact Info) Description 05/23/2025 1:00 PM EDT - 05/23/2025 11:59 PM EDT Hospital Encounter [facility] OUTPATIENT ONCOLOGY [address] [place] [address] Patrice Santana DO [address] [employer] [address] [place] [id number] Rheumatoid arthritis involving multiple sites with positive [...] the past 12 months has th e [employer], gas, oil, or water company threatened to [...] Sign Reading Time Taken Comments Blood Pressure 151/76 05/23/2025 1:44 PM EDT Pulse 106 05/23/2025 1:44 PM EDT Temperature 36.2 C (97.1 F) 05/23/2025 1:44 PM EDT Respiratory Rate 16 05/23/2025 1:44 PM EDT Oxygen Saturation - - Inhaled Oxygen Concentration - - Weight 89.8 kg (198 lb) 05/23/2025 1:44 PM EDT Height 152.4 cm (5') 05/23/2025 1:44 PM EDT Body Mass Index 38.67 05/23/2025 1:44 PM EDT documented in this encounter Medications at Time of Discharge acetaminophen (TYLENOL) 500 MG tablet Take 1 tablet by mouth Every 6 (Six) Hours As Needed for Mild Pain. albuterol sulfate HFA 108 (90 Base) MCG/ACT inhalerIndications: Chronic cough Inhale 2 puffs Every 4 (Four) Hours As Needed for Wheezing or Shortness of Air. 18 g 6 04/29/2025 amLODIPine (NORVASC) 2.5 MG tabletIndications:P rimary hypertension Take 1 tablet by mouth Daily. 30 tablet 2 06/07/2024 atorvastatin (LIPITOR) 20 MG tablet Take 1 tablet by mouth Daily. 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 PUT A PEA SIZE ON INDEX FINGER. APPLY TO VAGINAL AREA 2-3X WEEKLY 42.5 g 12 05/14/2025 fluconazole (DIFLUCAN) 150 MG tablet TAKE 1 TABLET BY MOUTH 1 TIME FOR 1 DOSE. MAY REPEAT IN 3 DAYS IF SYMPTOMATIC 05/14/2025 fluticasone (FLONASE) 50 MCG/ACT nasal sprayIndications:Ch ronic cough Administer 2 sprays into the nostril(s) as directed by provider Daily. 33.3 g 3 01/28/2025 Fluticasone-Salmete rol (ADVAIR/WIXELA) 100-50 MCG/ACT DISKUSIndications:C hronic cough Inhale 1 puff 2 (Two) Times a Day. 180 each 3 04/29/2025 gabapentin (NEURONTIN) 100 MG capsuleIndications: Post herpetic [...] tablet Take 2 tablets by mouth Daily. memantine (Namenda) 10 MG tabletIndications:M ild cognitive [...] by mouth Daily. 90 tablet 3 10/04/2023 nitrofurantoin, macrocrystal-monohy drate, (MACROBID) 100 MG capsuleIndications: Infection due to 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 toxin-producing Escherichia coli (E.coli) TAKE 1 CAPSULE BY MOUTH TWO TIMES DAILY X 7 DAYS ONLY. AFTER TAKE 1 CAPSULE NIGHTLY FOR SUPPRESSIVE THERAPY E'COLI RECURRENT UTIs 30 capsule 3 05/14/2025 nitroglycerin (NITROSTAT) 0.[address] 1 tablet under the tongue Every 5 (Five) Minutes As Needed for Chest Pain. Take no more than 3 doses in 15 minutes. 25 tablet 5 01/03/2024 nystatin (MYCOSTATIN) [id number] UNIT/GM powderIndications:Y east dermatitis,Perineal irritation in female Apply topically to the appropriate area as directed 3 (Three) Times a Day. 60 g 3 05/14/2025 ondansetron (Zofran) 4 MG tablet Take 1 [...] tablet Take 2 tablets by mouth Daily. Vonoprazan Fumarate (VOQUEZNA) 10 MG tablet Take 1 tablet by mouth Daily. 30 tablet 11 05/12/2025 alendronate (FOSAMAX) 70 MG tablet Take 1 tablet by mouth Every 7 (Seven) Days. 4 tablet 6 01/30/2025 06/05/20 25 Aspirin Low Dose 81 MG EC tablet TAKE 1 TABLET BY MOUTH DAILY 100 tablet 2 01/26/2024 06/05/20 25 cefdinir (OMNICEF) 300 MG capsule 04/28/2025 06/05/20 25 meloxicam (MOBIC) 15 MG tablet Take 1 tablet by mouth Daily As Needed for Mild Pain. 30 tablet 5 01/30/2025 06/05/20 25 Ozempic, 0.25 or 0.5 MG/DOSE, 2 MG/3ML solution pen-injector ADMINISTER 0.25 MG UNDER THE SKIN ONCE WEEKLY 05/20/2025 06/05/20 25 documented as of this encounter Plan of Treatment Upcoming Encounters Date Type Department Care Team (Late st Contact Info) Description 06/25/2025 9:00 AM EDT [facility] OUTPATIENT ONCOLOGY [place] [address] [facility] [address] [place] [phone] 07/01/2025 11:00 AM EDT Office Visit [facility] UROLOGY [address] [facility] [address] [place] [address] Brennan Lee MD [address] [facility] [address] [place] [address] 07/23/2025 10:00 AM EDT Infusion OUTPATIENT ONCOLOGY [place] [address] [facility] [address] [place] [phone] 07/31/2025 10:00 AM EDT Office Visit [facility] PULMONARY & CRITICAL CARE MEDICINE [address] [facility] [address] [place] [phone] Maxine Gibson, HELP DESK ASSOCIATE [address] [place] [address] 09/02/2025 10:00 AM EST Office Visit [facility] UROLOGY [address] [facility] [address] [place] [address] Sanam Saunders, HELP DESK ASSOCIATE 1760 [facility] [address] [place], [place] [phone] 09/24/2025 9:15 AM EST Office Visit [facility] RHEUMATOLOGY [address] [place] [phone] John Sheppard, HELP DESK ASSOCIATE 330 [facility] 100 [place] [address] 02/03/2026 10:45 AM EDT Office Visit [facility] RHEUMATOLOGY [address] [place] [phone] Patrice Santana, [address] [address] documented as of this encounter Goals Goal [...] 650 mg 650 mg, Oral, Once, On Mon05/23/25 at 1350, For 1 dose, Based on patient request [...] multiple sites with positive rheumatoid factor Given 05/23/2025 1:56 PM EDT 650 mg cetirizine (zyrTEC) tablet 10 mg 10 mg, Oral, Once, On Mon05/23/25 at 1350, For 1 doseIndications:Rheumatoid arthritis involving multiple sites with positive rheumatoid factor Given 05/23/2025 1:56 PM EDT 10 mg golimumab (SIMPONI ARIA) 180 mg in sodium chloride 0.9 % 100 mL infusion 180 mg (rounded from 179.6 mg = 2 mg/kg 89.8 kg), Intravenous, Administer over 30 Minutes, Once, On Mon05/23/25 at 1420, For 1 dose, Infuse using a 0.22 micron filter.Indications:Rheumatoid arthritis involving multiple sites with positive rheumatoid factor New Bag 05/23/2025 2:21 PM EDT 180 mg 200 mL/hr sodium chloride 0.9 % infusion 20 mL/hr, Intravenous, Once, On Mon05/23/25 at 1350, For 1 doseIndications:Rheumatoid arthritis involving multiple sites with positive rheumatoid factor New Bag 05/23/2025 2:20 PM EDT 20 mL/hr 20 mL/hr documented in this encounter Additional Health Concerns Infection Onset Date Last Indicated Resolved Time Hepatitis A 04/12/2024 04/12/2024 Assessment Noted Time PHQ-2 Depression Total Score: 1 05/20/20 24 11:00 AM EDT documented as of this encounter Care Teams Golf Club Assembler Relationship Specialty Start Date End Date Reza Panchal MD [address] [place] [address] PCP - General Family Medicine 09/30/24 documented as of this encounter
--- OUTSIDE RECORDS SUMMARY | 2025-06-03 10:33 | XMS_ITS | Encounter Summary ---
[facility] Organization [facility] Address [address] [place] [address] Care Team Providers Care [employer] Operator Name Role Phone Reza Panchal MD Primary Care Provider +1- [phone] Reason for Referral * Diagnostic Imaging (Routine) - Closed Specialty Diagnoses / Procedures Referred By Contac t Referred To Contact Radiology Diagnoses Seropositive rheumatoid arthritis High risk medication use Primary osteoarthritis involving multiple joints Age-related osteoporosis without current pathological fracture NSAID long-term use Procedures DEXA Bone Density Axial Patrice Santana DO Phone: tel: fax: [facility] DEXA [address] [address] Phone: tel: Referral ID Status Reason Start Date Expiration Date Visits Re quested Visits Authorized [id number] Closed 01/30/2025 05/01/2026 1 1 Reason for Visit * Diagnostic Imaging (Routine) - Closed Specialty Diagnoses / Procedures Referred By Contac manda Referred To Contact Radiology Diagnoses Seropositive rheumatoid arthritis High risk medication use Primary osteoarthritis involving multiple joints Age-related osteoporosis without current pathological fracture NSAID long-term use Procedures DEXA Bone Density Axial Patrice Santana DO Phone: tel: fax: [facility] DEX[facility] [address] [facility] [address] [place] [place] [address] Phone: tel: Referral ID Status Reason Start Date Expiration Date Visits Re quested Visits Authorized [id number] Closed 01/30/2025 05/01/2026 1 1 Encounter Details Date Type Department Care Team (Latest Contact Info) Description 06/03/2025 10:33 AM EDT - 06/03/2025 11:59 PM EDT Hospital Encounter [facility] DEXA [place] [address] [place] [id number] Patrice Santana DO [address] [facility] 100 [place] [phone] Seropositive rheumatoid arthritis; High risk medication use; Primary osteoarthritis involving multiple joints; Age-related osteoporosis without current pathological fracture; NSAID long-term use Discharge Disposition: Home or Self Care Social History Tobacco Use Types Packs/Day Years Used Date Smoking Tobacco: Never Passive Smoke Exposure: Past Smokeless Tobacco: Never Comments: smokes, for 45 years Alcohol Use Standard Drinks/Week Comments No 0 (1 standard drink = 0.6 oz pur e alcohol) [facility] Utilities Answer Date Recorded In the past 12 months has [employer], gas, oil, or water [employer] threatened to shut off services in your [...] 05/2025 Potentially Unsafe Housing Conditions Not on maarnda e 02/20/2025 Employment Answer Date Recorded Do [...] on file documented as of this encounter Medications at Time of Discharge [...] affected area four times daily 300 g 01/30/2025 estradiol (ESTRACE) 0.1 MG/GM vaginal creamIndications:In [...] minutes. 25 tablet 5 01/03/2024 nystatin (MYCOSTATIN) 480676 UNIT/GM powderIndications:Y east dermatitis,Perineal irritation in female Apply topically to the appropriate area as directed 3 (Three) Times a Day. 60 g 3 05/14/2025 omeprazole (priLOSEC) 40 MG capsule Take 1 capsule by mouth Daily. 05/27/2025 ondansetron (Zofran) 4 MG tablet Take 1 [...] DAILY 100 tablet 2 01/26/2024 06/05/20 25 azithromycin (ZITHROMAX) 500 MG tablet TAKE ONE TABLET BY MOUTH EVERY DAY -- FINISH ALL MEDICINE -- 05/27/2025 06/05/20 25 cefdinir (OMNICEF) 300 MG capsule [...] Info) Description 06/25/2025 9:00 AM EDT Infusion [facility] OUTPATIENT ONCOLOGY [place] 330 [facility] 110 [place] [address] 07/01/2025 11:00 AM EDT Office Visit [facility] UROLOGY 1760 [facility] 502 [place] [address] Brennan Lee MD 1760 [facility] 502 [place] [address] 07/23/2025 10:00 AM EDT Infusion [facility] OUTPATIENT ONCOLOGY [place] 330 [facility] 110 [place] [address] 07/31/2025 10:00 AM EDT Office Visit [facility] PULMONARY & CRITICAL CARE MEDICINE 3000 [facility] 240 [place] [phone] Maxine Gibson, BACK SHOE CUTTER [address] [place] [address] 09/02/2025 10:00 AM EST Office Visit [facility] UROLOGY 1760 [facility] 502 [place] [address] Sanam Saunders, PARVIZ [address] [address] 09/24/2025 9:15 AM EST Office Visit [facility] RHEUMATOLOGY 330 [facility] 100 [place] [phone] John Sheppard APRN [address] [phone] 02/03/2026 10:45 AM EDT Office Visit [facility] RHEUMATOLOGY [address] [address] Patrice Santana DO [address] [address] documented as of this encounter [...] Procedure Name Priority Date/Time Associated Diagnosis Comments DEXA BONE DENSITY AXIAL Routine 06/03/2025 10:55 AM EDT Seropositive rheumatoid arthritis High risk medication use Primary osteoarthritis involving multiple joints Age-related osteoporosis without current pathological fracture NSAID long-term use documented in this encounter Results * DEXA Bone Density Axial (06/03/2025 10:55 AM EDT) Anatomical Region Laterality Modality Wrist, Hip, L-spine N/A Other 06/03/2025 11:0 3 AM EDT Impressions 06/03/2025 4:39 PM EDT Osteoporosis of the right femoral neck. Osteopenia of the left femoral neck, total right hip, and one third right forearm The ten year fracture risk assessment was not calculated because some T-scores were at or below -2.5, and because the patient has been [facility] currently treated for osteoporosis. All the treatment decisions require clinical judgment and consideration of individual patient factors, including patient preferences, co-morbidities, previous drug use, risk factors not captured in the FRAX model (frailty, falls, vitamin D deficiency, increased bone turnover, interval significant decline in bone density) and possible under or over estimation of fracture risk by FRAX. Approaches to reduce osteoporosis related fracture risk include optimizing calcium and vitamin D status, appropriate weight bearing exercises and fall-prevention measurements. The National Osteoporosis Foundation recommends (http://www.nof.org/hcp/practice/ucgujyeh-zvo-nxiquyvl-guidelines/clinicians-christine de) that FDA-approved medical therapies be considered in postmenopausal women and men aged equal or greater than 50 years with : a) hip or vertebral (clinical or morphometric) fracture; b) T-score of -2.5 or less at the spine or hip; c) Ten-year fracture probability by FRAX of greater than 3% for hip fracture of greater than 20% for major osteoporotic fracture. Secondary causes of bone loss should be evaluated if clinically indicated since the etiology of low BMD cannot be determined by BMD measurement alone. FOLLOWUP: Consider repeating the study in 2-3 years to reassess the patient's status or sooner if there is some new clinical indication. INTERVAL CHANGE: There were no equivalent studies available for comparison. Due to cross calibration requirements from different scanners, previous studies may not be available for statistical comparison at this time.. At this facility, the least significant change in the BMD at the left hip with 95% confidence is 0.564536 gm/cm2 at the hip and 0.673257 g/cm2 at the lumbar spine. Report dictated by: Kiah Weston PA-c I have personally reviewed this case and agree with the findings above: Electronically Signed: Julito Kirkland MD 06/03/2025 4:39 PM EDT Workstation ID: [id number] Narrative 06/03/2025 4:39 PM EDT DUAL-ENERGY X-RAY ABSORPTIOMETRY (DXA) INDICATION: Postmenopausal, screening for osteoporosis, height loss, prior fracture, asthma emphysema, rheumatoid arthritis, new baseline COMPARISON: There are no equivalent studies available for comparison PROCEDURE: A DXA scan was performed using a Hologic densitometer. The total bilateral hips were evaluated, as well as the right forearm. The T-score compares the patient's bone mineral density with the peak bone mass of young normal patients. According to criteria established by the World Health Organization, patients with T-scores between 1.0 and 2.5 standard deviations BELOW the mean are osteopenic (low bone mass). Patients with T-scores EQUAL TO OR GREATER than 2.5 standard deviations below the mean are osteoporotic. The Z-score compares the patient bone mineral density with age and sex matched peers. According to the International Society for Clinical Densitometry's 2007 consensus conference: In women prior to menopause and men less than age 50, Z-scores, not T-scores are preferred. A Z-score of -2.0 or lower is defined as below the expected range for age and a Z-score above -2.0 is within the expected range for age. The WHO diagnostic criteria may be applied in women in the menopausal transition. Osteoporosis cannot be diagnosed in men under age 50 on the basis of BMD alone. TECHNICAL QUALITY: The study is of good technical quality. RESULTS: Total Hip: The BMD measured at the left total proximal femur is 0.832 g/cm2. The T-score is -0.9. The Z-score is 0.5. Femoral Neck: The BMD measured at the left femoral neck is 0.598 g/cm2. The T-score is -2.3. The Z-score is -0.6. Total Hip: The BMD measured at the right total proximal femur is 0.807 g/cm2. The T-score is -1.1. The Z-score is 0.3. Femoral neck: The BMD measured at the right femoral neck is 0.560 g/cm2. The T score is -2.6. The Z score is -0.9. 1/3 Radius: The BMD measured at the right one-third radius is 0.609 g/cm2. The T-score is -1.4. The Z-score is 0.5. Procedure Note Julito Kirkland MD - 06/03/2025 DUAL-ENERGY X-RAY ABSORPTIOMETRY (DXA) INDICATION: Postmenopausal, screening for osteoporosis, height loss, priorfracture, asthma emphysema, rheumatoid arthritis, new baseline COMPARISON: There are no equivalent studies available for comparison PROCEDURE: A DXA scan was performed using a Hologic densitometer. The total bilateral hips were evaluated, as well as the right forearm. The T-score compares the patient's bone mineral density with the peak bonemass of young normal patients. According to criteria established by the[facility] Health Organization, patients with T-scores between 1.0 and 2.5standard deviations BELOW the mean are osteopenic (low bone mass). Patients with T-scores EQUAL TO ORGREATER than 2.5 standard deviations below the mean are osteoporotic. The Z-score compares the patient bone mineral density with age and sexmatched peers. According to the International Society for ClinicalDensitometry's 2007 consensus conference: In women prior to menopause andmen less than age 50, Z-scores, not T-scores are preferred. A Z-score of -2.0 or lower is defined as belowthe expected range for age and a Z-score above -2.0 is within theexpected range for age. The WHO diagnostic criteria may be applied inwomen in the menopausal transition. Osteoporosis cannot be diagnosed in men under age 50 on the basis of BMDalone. TECHNICAL QUALITY: The study is of good technical quality. RESULTS: Total Hip: The BMD measured at the left total proximal femur is 0.832g/cm2. The T-score is -0.9. The Z-score is 0.5. Femoral Neck: The BMD measured at the left femoral neck is 0.598 g/cm2.The T- score is -2.3. The Z-score is -0.6. Total Hip: The BMD measured at the right total proximal femur is 0.807g/cm2. The T-score is -1.1. The Z-score is 0.3. Femoral neck: The BMD measured at the right femoral neck is 0.560 g/cm2.The T score is -2.6. The Z score is -0.9. 1/3 Radius: The BMD measured at the right one-third radius is 0.609g/cm2. The T- score is -1.4. The Z-score is 0.5. IMPRESSION: Osteoporosis of the right femoral neck. Osteopenia of the left femoralneck, total right hip, and one third right forearm The ten year fracture risk assessment was not calculated because someT-scores were at or below -2.5, and because the patient has been CalmRxcurrently treated for osteoporosis. All the treatment decisions require clinical judgment and consideration ofindividual patient factors, including patient preferences, co-morbidities,previous drug use, risk factors not captured in the FRAX model (frailty,falls, vitamin D deficiency, increased bone turnover, interval significant decline in bone density) andpossible under or over estimation of fracture risk by FRAX. Approaches toreduce osteoporosis related fracture risk include optimizing calcium andvitamin D status, appropriate weight bearing exercises and fall-prevention measurements. The NationalOsteoporosis Foundation recommends(http://www.nof.org/hcp/practice/bdvnqkvd-qlq-psxweiyl-guidelines/clin ician s-guide) that FDA-approved medical therapies be considered in postmenopausal women and men aged equal or greater than 50 years with :a) hip or vertebral (clinical or morphometric) fracture; b) T-score of-2.5 or less at the spine or hip; c) Ten-year fracture probability by FRAXof greater than 3% for hip fracture of greater than 20% for major osteoporotic fracture. Secondary causes of bone loss should be evaluated if clinically indicatedsince the etiology of low BMD cannot be determined by BMD measurementalone. FOLLOWUP: Consider repeating the study in 2-3 years to reassess thepatient's status or sooner if there is some new clinical indication. INTERVAL CHANGE: There were no equivalent studies available forcomparison. Due to cross calibration requirements from different scanners,previous studies may not be available for statistical comparison at thistime.. At this facility, the least significant change in the BMD at the left hipwith 95% confidence is 0.324828 gm/cm2 at the hip and 0.601913 g/cm2 atthe lumbar spine. Report dictated by: Kiah Weston PA-c I have personally reviewed this case and agree with the findings above: Electronically Signed: Julito Kirkland MD 06/03/2025 4:39 PM EDT Workstation ID: [id number] [facility] Santana DO IMG DXA ORDERABLES Fin al Result documented in this encounter Visit Diagnoses Diagnosis Seropositive rheumatoid arthritis High risk medication use Primary osteoarthritis involving multiple joints Age-related osteoporosis without current pathological fracture NSAID long-term use Encounter for long-term (current) use of non-steroidal anti-inflammatories documented in this encounter Additional Health Concerns Infection Onset Date Last Indicated Resolved Time Hepatitis A 04/12/2024 04/12/2024 Assessment Noted Time PHQ-2 Depression Total Score: 1 05/20/20 24 11:00 AM EDT documented as of this encounter Care Teams [employer]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
--- OUTSIDE RECORDS SUMMARY | 2025-06-05 10:45 | XMS_ITS | Encounter Summary ---
Author Organization [facility] Address [address] [place] [address] Care Team Providers Care Magistrate Judge Name Role Phone Reza Panchal MD Primary Care Provider +1- [phone] Reason for Visit * Reason Comments Seropositive rheumatoid arthritis Encounter Details Date Type Department Care Team (Latest Contact Info) Description 06/05/2025 10:45 AM EDT Office Visit [facility] RHEUMATOLOGY [address] [address] John Sheppard APRN [address] [phone] Seropositive rheumatoid arthritis (Primary Dx); High risk [...] = 0.6 oz pur e alcohol) [facility] Utilities Answer Date Recorded In the past 12 months has e [employer], gas, oil, or water company threatened to [...] or training? Not on file Preferred Language Burundian 01/28/2025 PHQ-2 Answer Date Recorded Retired PHQ-9: [...] done before next visit. Reviewed labs from [facility]. Labs also requested. * John Sheppard APRN [...] Reyna 2nd Gen 32G X 4 MM [facility], USE 1 NEEDLE THREE TIMES DAILY DIRECTED, [...] Disp: 25 tablet, Rfl: 5 nystatin (MYCOSTATIN) [id number] UNIT/GM powder, Apply topically to the appropriate [...] done before next visit. Reviewed labs from [facility]. Labs also requested. High risk medication use [...] Santana, MICH Sheppard APRN. John Sheppard APRN [facility] [place] documented in this encounter Plan of Treatment Upcoming Encounters Date Type Department Care Team (Late st Contact Info) Description 06/25/2025 9:00 AM EDT Infusion [facility] OUTPATIENT ONCOLOGY [place] 330 [facility] [address] [place] [address] 07/01/2025 11:00 AM EDT Office Visit [facility] UROLOGY [address] [facility] [address] [place] [address] Brennan Lee MD 1760 [facility] 502 [place] [address] 07/23/2025 10:00 AM EDT Infusion [facility] OUTPATIENT ONCOLOGY [place] 330 [facility] 110 [place] [address] 07/31/2025 10:00 AM EDT Office Visit [facility] PULMONARY & CRITICAL CARE MEDICINE 3000 [facility] [address] [place] [address] Maxine Gibson APRN [address] [place] [address] 09/02/2025 10:00 AM EST Office Visit [facility] UROLOGY 1760 [facility] [address] [place], [place] [address] Sanam Saunders, FINAL INSPECTOR MOVEMENT ASSEMBLY 1760 [facility] [address] [place], [place] [address] 09/24/2025 9:15 AM EST Office Visit [facility] RHEUMATOLOGY [address] [place] [address] [phone] John Sheppard, FINAL INSPECTOR MOVEMENT ASSEMBLY 330 [facility] 100 [place], [place] [address] 02/03/2026 10:45 AM EDT Office Visit [facility] RHEUMATOLOGY [address] [place] [address] [phone] Patrice Santana, [address] [phone] Scheduled Orders Name Type Priority Associated Diagnoses [...] documented as of this encounter Care Teams Magistrate Judge Relationship Specialty Start Date End Date Reza Panchal MD [address] [place] [address] PCP - General Family Medicine 12/16/24 documented as of this encounter
--- OUTSIDE RECORDS SUMMARY | 2025-06-13 10:00 | XMS_ITS | Encounter Summary ---
Author Organization [facility] Address [address] [place] [address] Care Team Providers Care Auto Clocks Repairer Name Role Phone Reza Panchal MD Primary Care Provider +1- [phone] Reason for Visit * Reason Comments Infection due to 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 toxin-pr oducing Escherichia FOLLOW UP UTIs/LUTS/OAB Encounter Details Date Type Department Care Team (Late st Contact Info) Description 06/13/2025 10:00 AM EDT Office Visit [facility] UROLOGY [address] [place] [address] Sanam Saunders APRN 1760 [facility] [address] [place] [address] Infection due to 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 toxin-producing Escherichia coli (E.coli) (Primary Dx); Lower urinary tract symptoms (LUTS) Social History Tobacco Use Types Packs/Day Years Used Date Smoking Tobacco: Never Passive Smoke Exposure: Past Smokeless Tobacco: Never Comments: smokes, for 45 years Alcohol Use Standard Drinks/Week Comments No 0 (1 standard drink = 0.6 oz pur e alcohol) [facility] Utilities Answer Date Recorded In the past 12 months has [employer] electric, gas, oil, or water company threatened [...] or training? Not on file Preferred Language Uruguayan 01/28/2025 PHQ-2 Answer Date Recorded Retired PHQ-9: [...] through Care Everywhere. * Urinary Frequency Adult (Uruguayan) * Urinary Incontinence: What to Know (Uruguayan) * Overactive Bladder in Adults: What to Know (Uruguayan) documented in this encounter Progress Notes * Sanam Saunders APRN - 06/13/2025 10:00 AM EDT Images from the original note were not included. Chief Complaint Infection due to 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 toxin-producing Escherichia (FOLLOW UP UTIs/LUTS/OAB) Subjective [place] Castellanos presents to [facility] for UTI/OAB/LUTS History of Present [...] month since her last consultation with the fraud representative for her neuromodulation device. She has not [...] Clarity, UA 06/13/2025 Clear Clear Final Specific [place] 06/13/2025 1.010 1.005 - 1.030 Final pH, [...] 05/14/2025 Slightly Cloudy (A) Clear Final Specific [place] 05/14/2025 1.015 1.005 - 1.030 Final pH, [...] is advised to contact the neuromodulation device fraud representative for any device-related concerns. Follow-up She will [...] of this note may be an electronic legal support analyst/translation of spoken language to printed text using the Zentact Dictation System. Patient or patient fraud representative verbalized consent for the use of Ambient Listening during the visit with Sanam Saunders APRN for chart documentation. 06/17/2025 22:57 EDT documented in this encounter Plan of Treatment Upcoming Encounters Date Type Department Care Team (Late st Contact Info) Description 06/25/2025 9:00 AM EDT Infusion [facility] OUTPATIENT ONCOLOGY [place] 330 [facility] 110 [place] [address] 07/01/2025 11:00 AM EDT Office Visit [facility] UR[facility] 1760 [facility] [address] [place] [address] Brennan Lee MD [address] [address] 07/23/2025 10:00 AM EDT Infusion [facility] OUTPATIENT ONCOLOGY [employer] 330 [facility] 110 [place] [address] 07/31/2025 10:00 AM EDT Office Visit [facility] PULMONARY & CRITICAL CARE MEDICINE 3000 [facility] [address] [place] [address] Maxine Gibson, CLIENT FINANCE ANALYST [address] [place] [address] 09/02/2025 10:00 AM EST Office Visit [facility] UROLOG[facility] [address] [address] Sanam Saunders APRN [address] [address] 09/24/2025 9:15 AM EST Office Visit [facility] RHEUMATOLOGY [address] [place] [address] [address] John Sheppard APRN [address] [id number] 02/03/2026 10:45 AM EDT Office Visit [facility] RHEUMATOLOGY [address] [place] [address] [address] Patrice Santana DO [address] [id number] documented as of this encounter Goals Goal [...] Color Yellow Yellow, Straw, Dark Yellow, Ann [facility] Clarity, UA Clear Clear [facility] Specific [place]ard 1.010 1.005 - 1.030 [facility] pH, Urine 7.5 5.0 - 8.0 [facility] Leukocytes Negative Negative [facility] Nitrite, UA Negative Negative [facility] Protein, POC Negative Negative mg/dL [facility] Glucose, UA Negative Negative mg/dL [facility] Ketones, UA Negative Negative [facility] Urobilinogen, UA Normal Normal, 0.2 E.U./dL [facility] Bilirubin Negative Negative [facility] Blood, UA Negative Negative [facility] Lot Number [id number] [facility] Expiration Date 11/08/2026 [facility] Urine 06/13/2025 10:0 7 AM EDT Sanam Saunders APRN POINT OF CARE TEST ORDE VOLODYMYR Final Result [facility]
[address] [place] [address], * Urine Culture - Urine, Urine, Clean Catch (06/13/2025 9:55 AM EDT) Urine Culture No growth DICK 06/15/2025 4:46 AM EDT [facility] Urine Urine specimen obtained by clean catch procedure / Unknown Collection / Unknown 06/13/2025 9:55 AM EDT 06/13/2025 9:55 AM EDT Sanam Maderasiena PARVIZ MICROBIOLOGY - GENERAL ORDERABLES Final Result [facility]
[address] [place] [address], documented in this encounter Visit Diagnoses Diagnosis Infection due to 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 toxin-producing Escherichia coli (E.coli)- Primary Lower urinary tract symptoms (LUTS) documented in this encounter Additional Health Concerns Infection Onset Date Last Indicated Resolved Time Hepatitis A 04/12/2024 04/12/2024 Assessment Noted Time PHQ-2 Depression Total Score: 1 05/20/20 11:00 AM EDT documented as of this encounter Care Teams Auto Clocks Repairer Relationship Specialty Start Date End Date Reza Panchal MD [facility] [place] [address] PCP - General Family Medicine 09/30/24 documented as of this encounter
--- OUTSIDE RECORDS SUMMARY | 2025-06-19 10:22 | XMS_ITS | Encounter Summary ---
Author Organization [facility] Address [address] [place] [address] Care Team Providers Care Elder Counselor Name Role Phone Reza Panchal MD Primary Care Provider +1- [phone] Reason for Visit * Reason Onset Date Comments MED QUESTION 03/27/2025 Encounter Details Date Type Department Care Team (Late st Contact Info) Description 03/27/2025 Telephone [facility] UR[facility]Y [address] [place] [address] Brennan Santillan MD [address]60 [place] [address] MED QUESTION Social History Tobacco Use Types Packs/Day Years Used Date Smoking Tobacco: Never Passive Smoke Exposure: Past Smokeless Tobacco: Never Comments: smokes, for 45 years Alcohol Use Standard Drinks/Week Comments No 0 (1 standard drink = 0.6 oz pur e alcohol) [facility] Utilities Answer Date Recorded In the past 12 months has [employer], gas, oil, or water company threatened to [...] or training? Not on file Preferred Language Martiniquais 01/28/2025 PHQ-2 Answer Date Recorded Retired PHQ-9: [...] Relationship: GRAND DAUGHTER Best call back number: [phone] What is the best time to reach [...] it okay if the provider responds through tribalXhart: YES documented in this encounter Plan of Treatment Upcoming Encounters Date Type Department Care Team (Late st Contact Info) Description 06/25/2025 9:00 AM EDT Infusion [facility] OUTPATIENT ONCOLOGY [place] [address] [place] [address] 07/01/2025 11:00 AM EDT Office Visit [facility] UROLOGY [address] [place] [address] Brennan Santillan MD 1760 [facility] [address] [place] [address] 07/23/2025 10:00 AM EDT Infusion [facility] OUTPATIENT ONCOLOGY [place] [address] [place] [address] 07/31/2025 10:00 AM EDT Office Visit [facility] PULMONARY & CRITICAL CARE MEDICINE 3000 [facility] [address] [place] [address] Maxine Gibson, MANAGER OF REGULATORY AFFAIRS [address] [place] [address] 09/02/2025 10:00 AM EST Office Visit [facility] 1760 [facility] 502 [place], [place] [phone] Sanam Saunders, MANAGER OF REGULATORY AFFAIRS 1760 [facility] [address] [place], [place] [id number] 09/24/2025 9:15 AM EST Office Visit [facility] RHEUMATOLOGY [address] [phone] John Sheppard APRN [address] [id number] 02/03/2026 10:45 AM EDT Office Visit [facility] RHEUMATOLOGY [address] [address] Patrice Santana, [address] [id number] documented as of this encounter Goals Goal [...] documented as of this encounter Care Teams Elder Counselor Relationship Specialty Start Date End Date Reza Panchal MD [address] [place] [address] PCP - General Family Medicine 09/30/24 documented as of this encounter
--- OUTSIDE RECORDS SUMMARY | 2025-06-19 10:22 | XMS_ITS | Encounter Summary ---
Author Organization [facility] Address [address] [place] [address] Care Team Providers Care Leader Writer Name Role Phone Reza Panchal MD Primary Care Provider +1- [phone] Encounter Details Date Type Department Care Team (Latest Contact Info) Description 05/14/2025 Travel Social History Tobacco Use Types Packs/Day Years Used Date Smoking Tobacco: Never Passive Smoke Exposure: Past Smokeless Tobacco: Never Comments: smokes, for 45 years Alcohol Use Standard Drinks/Week Comments No 0 (1 standard drink = 0.6 oz pur e alcohol) [facility] Utilities Answer Date Recorded In [...] Info) Description 06/25/2025 9:00 AM EDT Infusion [facility] OUTPATIENT [place]COLOGY [place] [address] [place] [address] [place] [address] 07/01/2025 11:00 AM EDT Office Visit [facility] UROLOGY 1760 [facility] [address] [place] [address] Brennan Lee MD 1760 [facility] 502 [place] [address] 07/23/2025 10:00 AM EDT Infusion [place]PATIENT ONCOLOG[place] [address] [facility] 110 [place] [address] 07/31/2025 10:00 AM EDT Office Visit [facility] PULMONARY & CRITICAL CARE MEDICINE 3000 [facility] 240 [place] [address] Maxine Gibson, DIRECTOR BANKING 2400 [place] [address] 09/02/2025 10:00 AM EST Office Visit [facility] UROLOGY 1760 [facility] 502 [place] [address] Sanam Saunders, DIRECTOR BANKING 1760 [facility] 502 [place] [address] 09/24/2025 9:15 AM EST Office Visit [facility] RHEUMATOLOGY [address] [place] [address] John Sheppard, DIRECTOR BANKING [address] [facility] 100 [place] [address] 02/03/2026 10:45 AM EDT Office Visit [facility] RHEUMATOLOGY [address] [place] [address] Patrice Santana, DO [address] [facility] 100 [place] [address] documented as of this encounter Goals Goal [...] documented as of this encounter Care Teams Leader Writer Relationship Specialty Start Date End Date Reza Panchal MD [address] [address] PCP - General Family Medicine 09/30/24 documented as of this encounter
--- OUTSIDE RECORDS SUMMARY | 2025-06-19 10:22 | XMS_ITS | Encounter Summary ---
Author Organization [facility] Address [address] [place] [address] Care Team Providers Care Database Consultant Name Role Phone Reza Panchal MD Primary Care Provider +1- [phone] Encounter Details Date Type Department Care Team (Late st Contact Info) Description 05/14/2025 Telephone [facility] UROLOGY [address] [place] [address] Sanam Saunders APRN 1760 [facility] [address] [place] [address] Social History Tobacco Use Types Packs/Day Years Used Date Smoking Tobacco: Never Passive Smoke Exposure: Past Smokeless Tobacco: Never Comments: smokes, for 45 years Alcohol Use Standard Drinks/Week Comments No 0 (1 standard drink = 0.6 oz pur e alcohol) [facility] Utilities Answer Date Recorded In the past 12 months has [employer] electric, gas, oil, or water company threatened [...] VERBAL ON FILE Best call back number: [phone] Patient is needing: PT CALLED REQUESTING A LATER APPT TODAY OR FOR ANOTHER DAY THIS WEEK. PLEASE CALL TO ADVISE. THANKS. documented in this encounter Plan of Treatment Upcoming Encounters Date Type Department Care Team (Late st Contact Info) Description 06/25/2025 9:00 AM EDT Infusion [facility] OUTPATIENT ONCOLOGY [place] [address] [facility] 110 [place] [address] 07/01/2025 11:00 AM EDT Office Visit [facility] UROLOGY 1760 [facility] 502 [place] [address] Brennan Lee MD 1760 [facility] 502 [place] [address] 07/23/2025 10:00 AM EDT Infusion [facility] OUTPAT[facility]COLOGY [place] [facility] 110 [place] [address] 07/31/2025 10:00 AM EDT Office Visit [facility] PULMONARY & CRITICAL CARE MEDICINE 3000 [facility] 240 [place] [address] Maxine Gibson, DRAWING CHECKER [address] [place] [address] 09/02/2025 10:00 AM EST Office Visit [facility] UROLOGY 1760 [facility] [address] [place], [place] [id number] Sanam Saunders APRN 1760 [facility] [address] [place], [place] [address] 09/24/2025 9:15 AM EST Office Visit [facility] RHEUMATOLOGY [address] [place] [address] John Sheppard DRAWING CHECKER 330 [facility] 100 [place] [address] 02/03/2026 10:45 AM EDT Office Visit [facility] RHEUMATOLOGY 330 [facility] 100 [place] [address] Patrice Santana, [address] [id number] documented as of this encounter Goals Goal [...] Skin Clean and Dry Patient Goals Nathalia Koavcs, RN Note: Follow Up Date - clean [...] documented as of this encounter Care Teams Database Consultant Relationship Specialty Start Date End Date Reza Panchal MD [facility] [place] [address] PCP - General Family Medicine 09/30/24 documented as of this encounter
--- OUTSIDE RECORDS SUMMARY | 2025-06-19 10:22 | XMS_ITS | Encounter Summary ---
Author Organization [facility] Address [address] [place] [address] Care Team Providers Care Back Strip Machine Operator Name Role Phone Reza Panchal MD Primary Care Provider +1- [phone] Reason for Visit * Reason Onset Date Comments VOQUENZA 10 MG PA REQUEST 05/13/2025 APPROVAL 05/13/2025 Encounter Details Date Type Department Care Team (Latest Contact Info) Description 05/13/2025 Prior Authorization [facility] GASTROENTEROLOGY [address] [place] [address] Khadar Julien RMA VOQUENZA 10 MG PA REQUEST; APPROVAL Social History Tobacco Use Types Packs/Day Years Used Date Smoking Tobacco: Never Passive Smoke Exposure: Past Smokeless Tobacco: Never Comments: smokes, for 45 years Alcohol Use Standard Drinks/Week Comments No 0 (1 standard drink = 0.6 oz pur e alcohol) [facility] Utilities Answer Date Recorded In the past 12 months has [employer] electric, gas, oil, or water company threatened [...] or training? Not on file Preferred Language Burmese 01/28/2025 PHQ-2 Answer Date Recorded Retired PHQ-9: [...] Outcome Approved on May 13 by Jenni [facility] 2017 Your request has been approved Effective [...] Call us at Outcome Approved today by [facility] 2017 Your request has been approved Effective Date: 10/16/2024 Authorization Expiration Date: 10/15/2025 * Telephone Encounter - Khadar Julien RMA - 05/13/2025 2:04 PM EDT (Grewal: [id number]) PA Need Help? Call us at Status sent iconSent to Plan today Drug Voquezna 10MG tablets ePA cloud logo Form Jenni Electronic PA Form (2016 [employer]) documented in this encounter Plan of Treatment Upcoming Encounters Date Type Department Care Team (Late st Contact Info) Description 06/25/2025 9:00 AM EDT Infusion [facility] OUTPATIENT ONCOLOGY [place] [address] [place] [address] [place] [address] 07/01/2025 11:00 AM EDT Office Visit [facility] UROLOGY [address] [place] [address] Brennan Lee MD [address] [place] [place] [address] 07/23/2025 10:00 AM EDT Infusion [facility] OUTPATIENT ONCOLOGY [place] [address] [place] [address] [place] [address] 07/31/2025 10:00 AM EDT Office Visit [facility] PULMONARY & CRITICAL CARE MEDICINE 3000 [facility] [address] [place] [address] Maxine Gibson, TINT LAYER [address] [place] [address] 09/02/2025 10:00 AM EST Office Visit [facility] UROLOGY [address]60 [facility] 502 [place], [place] [address] Sanam Saunders, TINT LAYER 1760 [facility] [address] [place], [place] [address] 09/24/2025 9:15 AM EST Office Visit [facility] RHEUMATOLOGY [address] [phone] John Sheppard APRN [address] [id number] 02/03/2026 10:45 AM EDT Office Visit [facility] RHEUMATOLOGY [address] [phone] Patrice Santana, [address] [id number] documented as of this encounter Goals Goal [...] documented as of this encounter Care Teams Back Strip Machine Operator Relationship Specialty Start Date End Date Reza Panchal MD [facility] [place] [address] PCP - General Family Medicine 09/30/24 documented as of this encounter
--- OUTSIDE RECORDS SUMMARY | 2025-06-19 10:22 | XMS_ITS | Encounter Summary ---
Author Organization [facility] Address [address] [place] [id number] Care Team Providers Care Lens Inspector Name Role Phone Reza Panchal MD Primary Care Provider +1- [phone] Encounter Details Date Type Department Care Team (Late st Contact Info) Description 05/16/2025 Results Follow-Up [facility] MEDICAL [facility] UROLOGY 3000 [facility] 340 [place] [address] Sanam Saunders APRN 1760 [place] [address] Social History Tobacco Use Types Packs/Day Years Used Date Smoking Tobacco: Never Passive Smoke Exposure: Past Smokeless Tobacco: Never Comments: smokes, for 45 years Alcohol Use Standard Drinks/Week Comments No 0 (1 standard drink = 0.6 oz pur e alcohol) [facility] Utilities Answer Date Recorded In the past 12 months has [employer] electric, gas, oil, or water company threatened [...] or training? Not on file Preferred Language Chilean 01/28/2025 PHQ-2 Answer Date Recorded Retired PHQ-9: [...] Info) Description 06/25/2025 9:00 AM EDT Infusion [facility] OUTPATIENT ONCOLOGY [address] [place] [address] 07/01/2025 11:00 AM EDT Office Visit [facility] UROLOGY 1760 [facility] 502 [place] [address] Brennan Lee MD 1760 [facility] 502 [place] [address] 07/23/2025 10:00 AM EDT Infusion [facility] OUTPATIENT ONCOLOGY [place] 330 [facility] 110 [place] [address] 07/31/2025 10:00 AM EDT Office Visit [facility] PULMONARY & CRITICAL CARE MEDICINE 3000 [facility] 240 [place] [address] Maxine Gibson, FARMWORKER PULLET FARM [address] [place] [address] 09/02/2025 10:00 AM EST Office Visit [facility] UROLOGY 1760 [facility] 502 [place] [address] Sanam Saunders, FARMWORKER PULLET FARM 1760 [facility] [address] [place] [address] 09/24/2025 9:15 AM EST Office Visit [facility] RHEUMATOLOGY [address] [facility] 100 [place] [address] John Sheppard, FARMWORKER PULLET FARM [address] [address] 02/03/2026 10:45 AM EDT Office Visit [facility] RHEUMATOLOGY [address] [address] Patrice Santana DO [address] [address] documented as of this encounter [...] documented as of this encounter Care Teams Lens Inspector Relationship Specialty Start Date End Date Reza Panchal MD 1210 [place] [address] PCP - General Family Medicine 09/30/24 documented as of this encounter
--- OUTSIDE RECORDS SUMMARY | 2025-06-19 10:22 | XMS_ITS | Encounter Summary ---
Author Organization [facility] Address [address] [place] [address] Care Team Providers Care Unified Communications Architect Name Role Phone Reza Panchal MD Primary Care Provider +1- [phone] Reason for Visit * Reason Onset Date Comments Med Refill 05/12/2025 Encounter Details Date Type Department Care Team (Late st Contact Info) Description 05/12/2025 Refill [facility] GASTROENTEROLOGY [address] [address] Palak Graham PA-C 1720 [facility] [address] [place] [address] Social History Tobacco Use Types Packs/Day Years Used Date Smoking Tobacco: Never Passive Smoke Exposure: Past Smokeless Tobacco: Never Comments: smokes, for 45 years Alcohol Use Standard Drinks/Week Comments No 0 (1 standard drink = 0.6 oz pur e alcohol) [facility] Utilities Answer Date Recorded In the past 12 months has [employer] electric, gas, oil, or water company threatened [...] Description 06/25/2025 9:00 AM EDT Infusion [facility] OUTPATIENT ONCOLOGY [place] 330 [facility] 110 [place] [address] 07/01/2025 11:00 AM EDT Office Visit [facility] UROLOGY 1760 [facility] 502 [place] [address] Brennan Lee MD 1760 [facility] 502 [place] [address] 07/23/2025 10:00 AM EDT Infusion [facility] OUTPATIENT ONCOLOGY [place] 330 [facility] 110 [place] [address] 07/31/2025 10:00 AM EDT Office Visit [facility] PULMONARY & CRITICAL CARE MEDICINE 3000 [facility] [address] [place] [phone] Maxine Gibson, SPECIAL EFFECTS DESIGNER [address] [place] [address] 09/02/2025 10:00 AM EST Office Visit [facility] UROLOGY 1760 [facility] 502 [place] [address] Sanam Saunders, SPECIAL EFFECTS DESIGNER 1760 [facility] 502 [place] [address] 09/24/2025 9:15 AM EST Office Visit [facility] RHEUMATOLOGY [address] [facility] 100 [place] [address] John Sheppard APRN 330 [facility] 100 [place], [place] [address] 02/03/2026 10:45 AM EDT Office Visit [facility] RHEUMATOLOGY 330 [facility] 100 [place] [address] Patrice Santana DO [address] [phone] documented as of this encounter Goals Goal [...] documented as of this encounter Care Teams Unified Communications Architect Relationship Specialty Start Date End Date Reza Panchal MD [facility] [place] [address] PCP - General Family Medicine 09/30/24 documented as of this encounter
--- OUTSIDE RECORDS SUMMARY | 2025-06-19 10:23 | XMS_ITS | Clinical Summary ---
Author Organization [facility] Address [address] [place] [address] Care Team Providers Care Reinforcing Steel Placer Name Role Phone Reza Panchal MD Primary Care Provider [phone] Allergies Active Allergy Reactions Criticality Noted Date [...] VAGINAL AREA 2-3X WEEKLY 42.5 g 12 Active nystatin (MYCOSTATIN) 048540 UNIT/GM powderIndications :Yeast dermatitis,Perine al irritation in [...] 7 (Seven) Days. 4 tablet 6 Active triamterene-hydro chlorothiazide (DYAZIDE) 37.5-25 MG per capsule Take 1 capsule by mouth Daily. Active Aspirin Low Dose 81 MG EC tablet TAKE 1 TABLET BY MOUTH DAILY 100 tablet 2 024 2024 Discontinued meloxicam (MOBIC) 15 MG tablet Take 1 tablet by mouth Daily As Needed for Mild Pain. 30 tablet 5 025 2024 Discontinued(R eorder) alendronate (FOSAMAX) 70 MG tablet Take 1 tablet by mouth Every 7 (Seven) Days. 4 tablet 6 025 2024 Discontinued(R eorder) cefdinir (OMNICEF) 300 MG capsule 2024 Discontinued azithromycin (ZITHROMAX) 500 MG tablet TAKE ONE TABLET BY MOUTH EVERY DAY -- FINISH ALL MEDICINE -- 2024 Discontinued Ozempic, 0.25 or 0.5 MG/DOSE, 2 MG/3ML solution pen-injector ADMINISTER 0.25 MG UNDER THE SKIN ONCE WEEKLY 025 2024 Discontinued Active Problems Problem Noted Date [...] antibiotics to protect the rectal reservoir including bwiw-cqx-jdroehy yogurt preparations to judy oral pills containing [...] (05/14/2025 6:23 PM EDT): Orders: nystatin (MYCOSTATIN) [id number] UNIT/GM powder; Apply topically to the appropriate area as directed 3 (Three) Times a Day. POC Urinalysis Dipstick, Automated Perineal irritation in female 05/14/2025 Assessment & Plan (05/14/2025 6:23 PM EDT): Orders: nystatin (MYCOSTATIN) [id number] UNIT/GM powder; Apply topically to the appropriate [...] for respiratory distress or severe symptoms. Rx Jocy Gee, follow-up if symptoms or not improving over [...] Angina pectoris 05/03/2019 Overview (12/31/2020): a. Remote [facility] -- data deficit: No reported disease. b. L ight [place] with medical treatment. c. [facility], 05/12/2011, Dr. Mosley: Angiographically normal [...] next visit. Reviewed labs from [facility]. Labs also requested. Assessment & Plan (01/30/2025 [...] Encounters Date Type Department Care Team Description 06/17/2025 Results Follow-Up [facility] UROLOGY [address] [place] [address] Sanam Saunders APRN 06/13/2025 10:00 AM EDT Office Visit [facility] UROLOGY [address] [place] [address] Sanam Saunders APRN Infection due to 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 toxin-producing Escherichia coli (E.coli) (Primary Dx); Lower urinary tract symptoms (LUTS) 06/13/2025 Travel 06/05/2025 10:45 AM EDT Office Visit [facility] RHEUMATOLOGY [address] [address] John Sheppard, [place]Z Seropositive rheumatoid arthritis (Primary Dx); High risk medication use; Primary osteoarthritis involving multiple joints; Age-related osteoporosis without current pathological fracture; NSAID long-term use; Fatigue, unspecified type 06/05/2025 Telephone [facility] RHEUMATOLOGY [address] [address] John Sheppard APRN 06/05/2025 Travel 06/04/2025 Results Follow-Up [facility] RHEUMATOLOGY [address] [address] Patrice Santana DO 06/03/2025 10:33 AM EDT - 06/03/2025 11:59 PM EDT Hospital Encounter [facility] DEXA [address] [place] [address] Patrice Santana DO Seropositive rheumatoid arthritis; High risk medication use; Primary osteoarthritis involving multiple joints; Age-related osteoporosis without current pathological fracture; NSAID long-term use Discharge Disposition: Home or Self Care 06/03/2025 Travel 05/28/2025 Telephone [facility] GASTROENTEROLOGY [address] [facility] [address] [place] [address] Iveilsse Cordon MD CANCEL PROCEDURE 05/23/2025 1:00 PM EDT - 05/23/2025 11:59 PM EDT Hospital Encounter [facility] OUTPATIENT ONCOLOGY [address] [place] [address] Patrice Santana DO Rheumatoid arthritis involving multiple sites with positive rheumatoid factor (Primary Dx) Discharge Disposition: Home or Self Care 05/23/2025 Travel 05/16/2025 Results Follow-Up [facility] UROLOGY [address] [facility] [address] [place] [address] Sanam Saunders, [place] 05/14/2025 2:30 PM EDT Office Visit [facility] UROLOGY [address] [facility] [address] [place] [address] Sanam Saunders, WAYS OPERATOR Infection due to 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 toxin-producing Escherichia coli (E.coli) (Primary Dx); Yeast vaginitis; Yeast dermatitis; Perineal irritation in female; Atrophic vaginitis 05/14/2025 Travel 05/14/2025 Telephone [facility] UROLOGY [address] [facility] [address] [place] [address] Sanam Saunders APRN 05/13/2025 Prior Authorization [facility] GASTROENTEROLOGY [address] [facility] [address] [place] [address] Khadar Julien RMA VOQUENZA 10 MG PA REQUEST; APPROVAL 05/12/2025 Refill [facility] GASTROENTEROLOGY [address] [facility] [address] [place] [address] Palak Graham PA-C 05/08/2025 Telephone [facility] UROLOGY [address] [facility] [address] [place] [address] STARK - CLINICAL 05/07/2025 Results Follow-Up [facility] DIAGNOSTIC CENTER AT [address] [place] [address] Palak Graham PA-C 05/06/2025 12:15 PM EDT Lab [facility] AT [address] [place] [address] Esophageal dysphagia; Gastroesophageal reflux disease, unspecified whether esophagitis present 05/06/2025 10:30 AM EDT Office Visit [facility] GASTROENTEROLOGY [address] [facility] [address] [place] [address] Palak Graham PA-C Esophageal dysphagia (Primary Dx); Gastroesophageal reflux disease, unspecified whether esophagitis present; History of Araseli fundoplication; History of aspiration pneumonia 05/06/2025 Telephone [facility] GASTROENTEROLOGY [address] [facility] [address] [place] [address] Palak Graham PA-C 05/06/2025 Travel 04/29/2025 9:30 AM EDT Office Visit [facility] PULMONARY & CRITICAL CARE MEDICINE [address] [facility] [address] [place] [address] Maxine Gibson, [place] Seasonal allergic rhinitis due to pollen (Primary Dx); Chronic cough; GERD without esophagitis; DEVANG (obstructive sleep apnea)/suspected nocturnal hypoxemia.-by history. Intolerant of NIPPV in past. 04/29/2025 Refill [facility] CARDIOLOGY [address] [facility] [address] [place] [address] Tristan Mosley MD Med Refill 04/29/2025 Travel 03/28/2025 12:35 PM EDT - 03/28/2025 11:59 PM EDT Hospital Encounter [facility] OUTPATIENT ONCOLOGY [address] [place] [phone] Patrice Santana, Rheumatoid arthritis involving multiple sites with positive rheumatoid factor (Primary Dx) Discharge Disposition: Home or Self Care 03/28/2025 Travel 03/27/2025 Telephone [facility] UROLOGY [address] [facility] [address] [place] [address] Brennan Lee MD MED QUESTION 03/26/2025 10:10 AM EDT Office Visit [facility] UROLOGY [address] [facility] [address] [place] [phone] Brennan Lee MD OAB (overactive bladder) (Primary Dx); Urge incontinence; Lower urinary tract symptoms (LUTS) 03/26/2025 Travel from Last 3 Months Immunizations Immunization [...] Recorded In the past 12 months has [employer], [employer], oil, or water [employer] threatened to shut off services in your [...] or training? Not on file Preferred Language Zimbabwean 01/28/2025 PHQ-2 Answer Date Recorded Retired PHQ-9: [...] Mass Index 38.67 06/13/2025 9:52 AM EDT Plan of Treatment Upcoming Encounters Date Type Department Care Team (Late st Contact Info) Description 06/25/2025 9:00 AM EDT Infusion [facility] OUTPATIENT ONCOLOGY [place] [address] [facility] [address] [place] [address] 07/01/2025 11:00 AM EDT Office Visit [facility] UROLOGY [address] [facility] [address] [place] [phone] Brennan Lee MD [address] [facility] [address] [place] [phone] 07/23/2025 10:00 AM EDT Infusion [facility] OUTPATIENT ONCOLOGY [place] [address] [facility] [address] [place] [address] 07/31/2025 10:00 AM EDT Office Visit [facility] PULMONARY & CRITICAL CARE MEDICINE [address] [facility] [address] [place] [address] Maxine Gibson, [place] [address] [place] [phone] 09/02/2025 10:00 AM EST Office Visit [facility] UROLOGY [address] [facility] [address] [place] [address] Sanam Saunders, WAYS OPERATOR [address] [facility] [address] [place], [place] [phone] 09/24/2025 9:15 AM EST Office Visit [facility] RHEUMATOLOGY [address] [place] [address] John Sheppard, WAYS OPERATOR [address] [facility] [address] [place], [place] [phone] 02/03/2026 10:45 AM EDT Office Visit [facility] RHEUMATOLOGY [address] [place] [address] Patrice Santana, [address] [facility] [address] [phone] Health Maintenance Due Date Last Done Comments COLOGUARD 2002 COLON CANCER SCREENING 5 YEA R SIGMOIDOSCOPY 2002 [address] COLONOGRAPHY 2002 FIT Testing (1 year) 2002 URINE MICROALBUMIN-CREATININ E RATIO (uACR) 04/13/2022 04/13/2021, 04/07/2020, 07/16/2019 TDAP/TD VACCINES (2 - Td or Tdap) 04/24/2022 012 DIABETIC FOOT EXAM 01/05/2024 01/04/2023, 0 01/04/2023, 01/04/2023, Additional history exists [facility] PLAN OF CARE 02/07/2024 ANNUAL WELLNESS VISIT 04/13/2024 04/13/2023 , 04/13/2021, 04/07/2020, Additional history exists FECAL OCCULT BLOOD TEST 04/13/2024 04/13/20, 01/14/2021, 11/07/2018 DIABETIC EYE EXAM 07/20/2024 07/20/2023, , 02/11/2021, Additional history exists HEMOGLOBIN A1C 10/16/2024 04/15/2024, 12/15, 01/03/2024, Additional history exists LIPID PANEL 02/20/2025 02/21/2024, 06/17, 12/19/2022, Additional history exists MAMMOGRAM 06/12/2025 06/12/2023, 07/18, 07/09/2019, Additional history exists COVID-19 Vaccine (2023-2 5 season) 2025 INFLUENZA VACCINE 07/16/2025 08/06/2024, , 08/29/2022, Additional [...] day. Notes: Medical Devices Implanted Type Area Plastic Panel Installer Device Identifier Shelf Expiration Date Model / Serial / Lot Pk Imp Trial Basic Bilat W/Ext Neurostm/Pne Ld Imp Kt - [id number] Implanted:Qty: 1 on 02/04/2025 by Brennan Lee MD at [facility] Implant N/A: Back [employer] 07/15/2025 [id number] / / [id number] Ld Neurostm Sacral Pne - [id number] Implanted:Qty: 1 on 02/04/2025 by Brennan Lee MD at [facility] Implant Back [employer] 02/20/2027 1901 / / [id number] Neurostm Sacral/Nerv [employer] Nonrechg W/Torq Wrench - [id number] Implanted:Qty: 1 on 02/20/2025 by Brennan Lee MD at [facility] Implant N/A: Back [employer] 12/12/2025 [id number] / / [id number] Kt Ld Stim Tined [employer] W/2/Sty Str/Crv - [id number] Implanted:Qty: 1 on 02/20/2025 by Brennan Lee MD at [facility] Implant N/A: Back [employer] 02/27/2027 1201 / / [id number] Procedures Procedure Name Priority Date/Time Associated Diagnosis Comments POCT URINALYSIS DIPSTICK, AUTOMATED Routine 06/13/2025 10:07 AM EDT Infection due to 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 toxin-producing Escherichia coli (E.coli) URINE CULTURE Routine 06/13/2025 9:55 AM EDT Infection due to 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 toxin-producing Escherichia coli (E.coli) DEXA BONE DENSITY AXIAL Routine 06/03/2025 10:55 [...] Recently Relevant to Health Maintenance Results * POC Urinalysis Dipstick, Automated (06/13/2025 10:07 AM EDT) Only the most recent of2 resultswithin the time period is included. Color Yellow Yellow, Straw, Dark Yellow, Ann [facility] Clarity, UA Clear Clear [facility] Specific [place] 1.010 1.005 - 1.030 [facility] pH, Urine 7.5 5.0 - 8.0 [facility] Leukocytes Negative Negative [facility] Nitrite, UA Negative Negative [facility] Protein, POC Negative Negative mg/dL [facility] Glucose, UA Negative Negative mg/dL [facility] Ketones, UA Negative Negative [facility] Urobilinogen, UA Normal Normal, 0.2 E.U./dL [facility] Bilirubin Negative Negative [facility] Blood, UA Negative Negative [facility] Lot Number [id number] [facility] Expiration Date 11/08/2026 [facility] Urine 06/13/2025 10:0 7 AM EDT Sanam Saunders WAYS OPERATOR POINT OF CARE TEST ORDE VOLODYMYR Final Result [facility]
[address] [place] [address], [place] [phone] * Urine Culture - Urine, Urine, Clean Catch (06/13/2025 9:55 AM EDT) Urine Culture No growth DICK 06/15/2025 4:46 AM EDT [facility] Urine Urine specimen obtained by clean catch procedure / Unknown Collection / Unknown 06/13/2025 9:55 AM EDT 06/13/2025 9:55 AM EDT Sanam Maderasiena [place] MICROBIOLOGY - GENERAL ORDERABLES Final Result [facility]
[address] [place] [address], [place] [phone] * DEXA Bone Density Axial (06/03/2025 10:55 [...] fall-prevention measurements. The National Osteoporosis Foundation recommends (http://www.nof.org/hcp/practice/jpkvutjm-ugc-lytwlwic-guidelines/clinicians-christine de) that FDA-approved medical therapies be considered [...] the left hip with 95% confidence is 0.629975 gm/cm2 at the hip and 0.987742 g/cm2 at the lumbar spine. Report dictated by: Kiah Weston PA-c I have personally reviewed this case and agree with the findings above: Electronically Signed: Julito Kirkland MD 06/03/2025 4:39 PM EDT Workstation ID: [id number] Narrative 06/03/2025 4:39 PM EDT DUAL-ENERGY X-RAY [...] patients. According to criteria established by the[facility], patients with T-scores between 1.0 [...] the right one-third radius is 0.609g/cm2. The T-score is -1.4. The Z-score is 0.5. IMPRESSION: [...] exercises and fall-prevention measurements. The NationalOsteoporosis Foundation recommends(http://www.nof.org/hcp/practice/jrwbkkht-evt-jwfaebku-guidelines/clin ician s-guide) that FDA-approved medical therapies be [...] at the left hipwith 95% confidence is 0.225760 gm/cm2 at the hip and 0.904932 g/cm2 atthe lumbar spine. Report dictated by: Kiah Weston PA-c I have personally reviewed this case and agree with the findings above: Electronically Signed: Julito Kirkland MD 06/03/2025 4:39 PM EDT Workstation ID: [id number] Patrice Satnana DO IMG DXA ORDERABLES Fin al Result * LABS SCANNED (05/14/2025) Sanam Saunders APRN LAB BLOOD ORDERABLES Fi nal Result * TSH Rfx On Abnormal To Free T4 (05/06/2025 12:01 PM EDT) TSH 2.680 0.270 - 4.200 uIU/mL 05/06/2025 7:29 PM EDT [facility] Blood Venipuncture / Unknown 05/06/2025 12:01 PM EDT 05/06/2025 12:01 PM EDT Palak Graham PA-C LAB BLOOD ORDERABLES Final Result [facility]
[address] [place] [address], [place] [phone] * (ABNORMAL) CBC Auto Differential (05/06/2025 12:01 PM EDT) [facility] WBC 6.88 3.40 - 10.80 10*3/mm3 05/06/2025 6:48 PM EDT [facility] RBC 4.42 3.77 - 5.28 10*6/mm3 05/06/2025 6:48 PM EDT [facility] Hemoglobin 13.5 12.0 - 15.9 g/dL 05/06/2025 6:48 PM EDT [facility] Hematocrit 41.0 34.0 - 46.6 % 05/06/2025 6:48 PM EDT [facility] MCV 92.8 79.0 - 97.0 fL 05/06/2025 6:48 PM EDT [facility] MCH 30.5 26.6 - 33.0 pg 05/06/2025 6:48 PM EDT [facility] MCHC 32.9 31.5 - 35.7 g/dL 05/06/2025 6:48 PM EDT [facility] RDW 13.1 12.3 - 15.4 % 05/06/2025 6:48 PM EDT [facility] RDW-SD 44.8 37.0 - 54.0 fl 05/06/2025 6:48 PM EDT [facility] MPV 10.0 6.0 - 12.0 fL 05/06/2025 6:48 PM EDT [facility] Platelets 314 140 - 450 10*3/mm3 05/06/2025 6:48 PM EDT [facility] Neutrophil % 41.1(L) 42.7 - 76.0 % 05/06/2025 6:48 PM EDT [facility] Lymphocyte % 37.1 19.6 - 45.3 % 05/06/2025 6:48 PM EDT [facility] Monocyte % 14.8(H) 5.0 - 12.0 % 05/06/2025 6:48 PM EDT [facility] Eosinophil % 5.4 0.3 - 6.2 % 05/06/2025 6:48 PM EDT [facility] Basophil % 0.7 0.0 - 1.5 % 05/06/2025 6:48 PM EDT [facility] Immature Grans % 0.9(H) 0.0 - 0.5 % 05/06/2025 6:48 PM EDT [facility] Neutrophils, Absolute 2.83 1.70 - 7.00 10*3/mm3 05/06/2025 6:48 PM EDT [facility] Lymphocytes, Absolute 2.55 0.70 - 3.10 10*3/mm3 05/06/2025 6:48 PM EDT [facility] Monocytes, Absolute 1.02(H) 0.10 - 0.90 10*3/mm3 05/06/2025 6:48 PM EDT [facility] Eosinophils, Absolute 0.37 0.00 - 0.40 10*3/mm3 05/06/2025 6:48 PM EDT [facility] Basophils, Absolute 0.05 0.00 - 0.20 10*3/mm3 05/06/2025 6:48 PM EDT [facility] Immature Grans, Absolute 0.06(H) 0.00 - 0.05 10*3/mm3 05/06/2025 6:48 PM EDT [facility] nRBC 0.0 0.0 - 0.2 /100 WBC 05/06/2025 6:48 PM EDT [facility] Blood Venipuncture / Unknown 05/06/2025 12:01 PM EDT 05/06/2025 12:01 PM EDT us Palak Graham PA-C LAB BLOOD ORDERABLES Final Result [facility]
[address] [place] [address], * (ABNORMAL) Comprehensive Metabolic Panel (05/06/2025 12:01 PM EDT) [facility] Glucose 150(H) 65 - 99 mg/dL 05/06/2025 7:23 PM [facility] BUN 17.0 8.0 - 23.0 mg/dL 05/06/2025 7:23 PM [facility] Creatinine 0.85 0.57 - 1.00 mg/dL 05/06/2025 7:23 PM [facility] Sodium 141 136 - 145 mmol/L 05/06/2025 7:23 PM [facility] Potassium 4.0 3.5 - 5.2 mmol/L 05/06/2025 7:23 PM [facility] Chloride 101 98 - 107 mmol/L 05/06/2025 7:23 PM [facility] CO2 27.3 22.0 - 29.0 mmol/L 05/06/2025 7:23 PM [facility] Calcium 9.4 8.6 - 10.5 mg/dL 05/06/2025 7:23 PM [facility] Total Protein 7.7 6.0 - 8.5 g/dL 05/06/2025 7:23 PM [facility] Albumin 4.0 3.5 - 5.2 g/dL 05/06/2025 7:23 PM [facility] ALT (SGPT) 21 1 - 33 U/L 05/06/2025 7:23 PM [facility] AST (SGOT) 18 1 - 32 U/L 05/06/2025 7:23 PM [facility] Alkaline Phosphatase 98 39 - 117 U/L 05/06/2025 7:23 PM [facility] Total Bilirubin 0.3 0.0 - 1.2 mg/dL 05/06/2025 7:23 PM [facility] Globulin 3.7 gm/dL 05/06/2025 7:23 PM [facility] A/G Ratio 1.1 g/dL 05/06/2025 7:23 PM [facility] BUN/Creatinine Ratio 20.0 7.0 - 25.0 05/06/2025 7:23 PM EDT [facility] Anion Gap 12.7 5.0 - 15.0 mmol/L 05/06/2025 7:23 PM EDT [facility] eGFR 75.2 >60.0 mL/min/1.7 3 05/06/2025 7:23 PM EDT [facility] Blood Venipuncture / Unknown 05/06/2025 12:01 PM EDT 05/06/2025 12:01 PM EDT Narrative [facility] - 05/06/2025 7:23 PM EDT [...] Graham PA-C LAB BLOOD ORDERABLES Final Result [facility]
[address] [place] [address], * (ABNORMAL) POC Glycosylated Hemoglobin (Hb A1C) (04/15/2024 3:58 PM EDT) Hemoglobin A1C 5.6 4.5 - 5.7 % [facility] Lot Number [id number] [facility] Expiration Date 12/31/2025 [facility] Blood 04/15/2024 3:58 PM EDT Huyen Pal MD POINT OF CARE TEST ORDERABL ES Final Result [facility]
[address] [place] [address], [place] [phone] * (ABNORMAL) Hepatitis Panel, Acute (04/12/2024 11:29 AM EDT) [facility] Hepatitis B Surface Ag Non-Reacti ve Non-Reacti ve 04/13/2024 1:52 AM EDT [facility] Hep A IgM Reactive(A ) Non-Reacti ve 04/13/2024 1:52 AM EDT [facility] Hep B C IgM Non-Reacti ve Non-Reacti ve 04/13/2024 1:52 AM EDT [facility] Hepatitis C Ab Non-Reacti ve Non-Reacti ve 04/13/2024 1:52 AM EDT [facility] Blood Venipuncture / Unknown 04/12/2024 11:29 AM EDT 04/12/2024 11:32 AM EDT Narrative [facility] - 04/13/2024 1:52 AM EDT Results may be falsely decreased if patient taking Biotin. Patrice Santana DO LAB BLOOD ORDERABLES F inal Result [facility]
[address] [place] [address], [place] [phone] * (ABNORMAL) Lipid Panel (02/21/2024 10:20 AM EDT) [facility] Total Cholesterol 143 0 - 200 mg/dL 02/21/2024 11:45 PM EDT [facility] Triglycerides 212(H) 0 - 150 mg/dL 02/21/2024 11:45 PM EDT [facility] HDL Cholesterol 37(L) 40 - 60 mg/dL 02/21/2024 11:45 PM EDT [facility] LDL Cholesterol 71 0 - 100 mg/dL 02/21/2024 11:45 PM EDT [facility] VLDL Cholesterol 35 5 - 40 mg/dL 02/21/2024 11:45 PM EDT [facility] LDL/HDL Ratio 1.72 02/21/2024 11:45 PM EDT [facility] Blood Structure of right upper limb / Unknown Venipuncture / Unknown 02/21/2024 10:20 AM EDT 02/21/2024 10:20 AM EDT Narrative [facility] - 02/21/2024 11:45 PM EDT [...] High 160-189 mg/dL Very High >189 mg/dL Hueyn Pal MD LAB BLOOD ORDERABLES Final Result [facility]
[address] [place] [address], * SCANNED - EYE EXAM (07/20/2023) Anatomical [...] [facility] LOT NUMBER [id number] [facility] DEVELOPER EXPIRATION DATE 02/12/2025 [facility] Positive Control Positive Positive [facility] Negative Control Negative Negative [facility] Stool 04/13/2023 11:3 2 AM EDT us Huyen Pal MD POINT OF CARE TEST ORDERABL ES Final Result [facility]
[address] [place] [address], * Microalbumin / Creatinine Urine Ratio - [...] 2:11 PM EDT 04/14/2021 Comment:URINE RELEASE TO [facility] Narrative [facility] ([facility]) - 04/14/2021 10:09 AM EDT Performed at: [address] [id number] [employer] Operator: Jean Stephens PhD, Phone: [phone] Huyen Pal MD URINE ORDERABLES Final Resu lt [facility] (AMBULATORY) [address] [place] [address], [facility] [address] [place] [address], [place] [phone] * SCANNED - INFLUENZA (07/16/2019) Huyen Pal MD CHART REVIEW TABS Final Result * SCANNED - COLONOSCOPY (11/14/2013) Lizbeth Ibarra MD CHART REVIEW TABS Final Result from Last 3 Months or Most Recently Relevant to Health Maintenance Additional Health Concerns Infection Onset Date Last Indicated Hepatitis A 04/12/2024 04/12/2024 Insurance [employer] MED[employer]ARE [employer] [place] Advance Directives Documents on File Type Date Recorded Patient Hand Roller Engraver Expl anation PATIENT ADVANCE DIRECTIVES - SCAN [...] Of Support Discussed With: Patient Care Teams Reinforcing Steel Placer Relationship Specialty Start Date End Date Reza Panchal MD [address] [place] [address] PCP - General Family Medicine 09/30/24
--- OUTSIDE RECORDS SUMMARY | 2025-06-19 10:23 | XMS_ITS | Encounter Summary ---
[facility] Address [address] [place] [address] Care Team Providers Care Ceiling Cleaner Name Role Phone Reza Panchal MD Primary Care Provider +1- [phone] Reason for Visit * Reason Onset Date Comments Med Refill 04/29/2025 Encounter Details Date Type Department Care Team (Late st Contact Info) Description 04/29/2025 Refill [facility] CARDIOLOGY [address] [address] Tristan Mosley MD 1720 [facility] E [facility] 400 [place] [address] Med Refill Social History Tobacco Use Types Packs/Day Years Used Date Smoking Tobacco: Never Passive Smoke Exposure: Past Smokeless Tobacco: Never Comments: smokes, for 45 years Alcohol Use Standard Drinks/Week Comments No 0 (1 standard drink = 0.6 oz pur e alcohol) [facility] Utilities Answer Date Recorded In the past 12 months has [employer] electric, gas, oil, or water company threatened [...] or training? Not on file Preferred Language Equatorial Guinean 01/28/2025 PHQ-2 Answer Date Recorded Retired [...] EDT Infusion [facility] OUTPATIENT ONCOLOGY [place] 330 [facility] 110 [place] [address] 07/01/2025 11:00 AM EDT Office Visit [facility] UROLOGY 1760 [facility] 502 [place] [address] Brennan Lee MD 1760 [facility] 502 [place] [address] 07/23/2025 10:00 AM EDT Infusion [facility] OUTPATIENT ONCOLOGY [place] 330 [facility] 110 [place] [address] 07/31/2025 10:00 AM EDT Office Visit [facility] PULMONARY & CRITICAL CARE MEDICINE 3000 [facility] [address] [place] [address] Maxine Gibson, GRAB OPERATOR [address] [place] [address] 09/02/2025 10:00 AM EST Office Visit [facility] UROLOGY 1760 [facility] 502 [place] [address] Sanam Saunders, GRAB OPERATOR 1760 [facility] 502 [place] [address] 09/24/2025 9:15 AM EST Office Visit [facility] RHEUMATOLOGY 330 [facility] 100 [place] [address] John Sheppard APRN 330 [facility] 100 [place], [place] [address] 02/03/2026 10:45 AM EDT Office Visit [facility] RHEUMATOLOGY 330 [facility] 100 [place] [address] Patrice Santana DO [address] [id number] documented as of this encounter Goals Goal [...] documented as of this encounter Care Teams Ceiling Cleaner Relationship Specialty Start Date End Date Reza Panchal MD [facility] [place] [address] PCP - General Family Medicine 09/30/24 documented as of this encounter
--- OUTSIDE RECORDS SUMMARY | 2025-06-19 10:23 | XMS_ITS | Encounter Summary ---
Author [facility] Address [address] [place] [address] Care Team Providers Care Fine Hairer Name Role Phone Reza Panchal MD Primary Care Provider +1- [phone] Reason for Visit * Reason Comments Med Refill Encounter Details Date Type Department Care Team (Late st Contact Info) Description 12/19/2021 Refill [facility] PRIMARY CARE [address] [address] Dia Underwood MD 2039 [facility] 100 [place] [address] Social History Tobacco Use Types Packs/Day Years [...] Info) Description 06/25/2025 9:00 AM EDT Infusion [facility] OUTPATIENT ONCOLOGY [place] 330 [facility] 110 [place] [address] 07/01/2025 11:00 AM EDT Office Visit [facility] UROLOGY 1760 [facility] [address] [place] [address] Brennan Lee MD 1760 [facility] 502 [place] [address] 07/23/2025 10:00 AM EDT Infusion [facility] OUTPATIENT ONCOLOGY [place] 330 [facility] 110 [place] [address] 07/31/2025 10:00 AM EDT Office Visit [facility] PULMONARY & CRITICAL CARE MEDICINE 3000 [facility] [place] [address] [place] [address] Maxine Gibson, OCCUPATIONAL MEDICINE OFFICER [address] [place] [address] 09/02/2025 10:00 AM EST Office Visit [facility] UROLOGY 1760 [facility] 502 [place] [address] Sanam Saunders, OCCUPATIONAL MEDICINE OFFICER [address], [place] [address] 09/24/2025 9:15 AM EST Office Visit [facility] RHEUMATOLOGY [address] [address] John Sheppard APRN [address] [id number] 02/03/2026 10:45 AM EDT Office Visit [facility] RHEUMATOLOGY [address] [address] Patrice Santana DO [address] [phone] documented as of this encounter Visit Diagnoses [...] documented as of this encounter Care Teams Fine Hairer Relationship Specialty Start Date End Date Reza Panchal MD [facility] [address] [address] PCP - General Family Medicine 09/30/24 documented as of this encounter
--- OUTSIDE RECORDS SUMMARY | 2025-06-19 10:23 | XMS_ITS | Encounter Summary ---
[facility] Address [address] [place] [address] Care Team Providers Care Metal Loader Name Role Phone Reza Panchal MD Primary Care Provider +1- [phone] Reason for Visit * Reason Comments Med Refill Encounter Details Date Type Department Care Team (Late st Contact Info) Description 02/24/2023 Refill [facility] PRIMARY CARE [address] [address] Huyen Hall MD [address] [address] Type 2 diabetes mellitus with hyperglycemia, without [...] 06/25/2025 9:00 AM EDT Infusion [facility] OUTPATIENT ONCOLOGY [place] 330 [facility] 110 [place] [address] 07/01/2025 11:00 AM EDT Office Visit [facility] UROLOGY 1760 [facility] [address] [place] [phone] Brennan Lee MD 1760 [facility] [address] [place] [id number] 07/23/2025 10:00 AM EDT Infusion [facility] OUTPATIENT ONCOLOGY [place] 330 [facility] 110 [place] [address] 07/31/2025 10:00 AM EDT Office Visit [facility] PULMONARY & CRITICAL CARE MEDICINE 3000 [facility] 240 [place] [address] Maxine Gibson, HEAD PACKAGER [address] [place] [address] 09/02/2025 10:00 AM EST Office Visit [facility] UROLOGY 1760 [facility] [place] [address] [place] [address] ArtFaheemSanam, HEAD PACKAGER 1760 [facility] [address] [place], [place] [address] 09/24/2025 9:15 AM EST Office Visit [facility] RHEUMATOLOGY [address] [place] [address] [phone] John Sheppard APRN [address] [phone] 02/03/2026 10:45 AM EDT Office Visit [facility] RHEUMATOLOGY 330 [place] [address] [phone] Patrice Santana, [address] [phone] documented as of this encounter Visit Diagnoses [...] documented as of this encounter Care Teams Metal Loader Relationship Specialty Start Date End Date Reza Panchal MD [facility] [place] [address] PCP - General Family Medicine 09/30/24 documented as of this encounter
--- OUTSIDE RECORDS SUMMARY | 2025-06-19 10:23 | XMS_ITS | Encounter Summary ---
Author Organization [facility] Address [address] [place] [address] Care Team Providers Care Loft Worker Name Role Phone Reza Panchal MD Primary Care Provider +1- [phone] Encounter Details Date Type Department Care Team (Latest Contact Info) Description 04/29/2025 Travel Social History Tobacco Use Types Packs/Day Years Used Date Smoking Tobacco: Never Passive Smoke Exposure: Past Smokeless Tobacco: Never Comments: smokes, for 45 years Alcohol Use Standard Drinks/Week Comments No 0 (1 standard drink = 0.6 oz pur e alcohol) [facility] Utilities Answer Date Recorded In the past [...] Info) Description 06/25/2025 9:00 AM EDT Infusion [facility] OUTPATIENT ONCOLOGY [place] [address] [place] [address] [place] [address] 07/01/2025 11:00 AM EDT Office Visit [facility] UROLOGY 1760 [facility] [address] [place] [address] Brennan Lee MD 1760 [facility] [address] [place] [address] 07/23/2025 10:00 AM EDT Infusion [facility] OUTPATIENT ONCOLOGY [place] [address] [facility] [address] [place] [address] 07/31/2025 10:00 AM EDT Office Visit [facility] PULMONARY & CRITICAL CARE MEDICINE 3000 [facility] [address] [place] [address] Maxine Gibson, YARN HAULER 2400 [place] [address] 09/02/2025 10:00 AM EST Office Visit [facility] UROLOGY 1760 [facility] [address] [place] [address] Sanam Saunders, YARN HAULER 1760 [facility] [address] [place] [address] 09/24/2025 9:15 AM EST Office Visit [facility] RHEUMATOLOGY [address] [place] [address] John Sheppard, YARN HAULER [address] [facility] [address] [place] [address] 02/03/2026 10:45 AM EDT Office Visit [facility] RHEUMATOLOGY [address] [place] [address] Patrice Santana, DO [address] [facility] [address] [place] [address] documented as of this encounter Goals Goal [...] documented as of this encounter Care Teams Loft Worker Relationship Specialty Start Date End Date Reza Panchal MD [address] [address] PCP - General Family Medicine 09/30/24 documented as of this encounter
--- OUTSIDE RECORDS SUMMARY | 2025-06-19 10:24 | XMS_ITS | Encounter Summary ---
[facility] Address [address] [place] [address] Care Team Providers Care Classroom Coordinator Name Role Phone Reza Panchal MD Primary Care Provider +1- [phone] Encounter Details Date Type Department Care Team (Late st Contact Info) Description 05/06/2025 Telephone [facility] GASTROENTEROLOGY [address] [address] Robert Graham, PAArnaldoC 1720 [facility] [address] [place] [address] Social History Tobacco Use Types Packs/Day Years Used Date Smoking Tobacco: Never Passive Smoke Exposure: Past Smokeless Tobacco: Never Comments: smokes, for 45 years Alcohol Use Standard Drinks/Week Comments No 0 (1 standard drink = 0.6 oz pur e alcohol) [facility] Utilities Answer Date Recorded In the past 12 months has [employer] electric, gas, oil, or water company threatened [...] or training? Not on file Preferred Language Mexican 01/28/2025 PHQ-2 Answer Date Recorded Retired PHQ-9: Brief Depression Severity Measure Score 7 05/20/2024 Comments No Sex and Gender Information Value Date Recorded Sex Assigned at Female 01/09/2025 11:01 AM EDT Legal Sex Female 12:37 PM EDT Gender Identity Not on file Sexual Orientation Not on file documented as of this encounter Miscellaneous Notes * Telephone Encounter - AnayaKhadar HEMAL Ruelas - 05/06/2025 3:30 PM EDT I SPOKE WITH DANIEL PATIENT'S GRANDDAUGHTER. INFORMED HER THAT ROBERT WANTS PATIENT TO HAVE EGD FIRST BEFORE ANY ADDITIONAL TESTS. DANIEL VOICED UNDERSTANDING. documented in this encounter Plan of Treatment Upcoming Encounters Date Type Department Care Team (Late st Contact Info) Description 06/25/2025 9:00 AM EDT Infusion [facility] OUTPATIENT ONCOLOGY [place] 330 [facility] 110 [place] [address] 07/01/2025 11:00 AM EDT Office Visit [facility] UROLOGY 1760 [facility] 502 [place] [address] Brennan Lee MD 1760 [facility] [address] [place] [address] 07/23/2025 10:00 AM EDT Infusion [facility] OUTPATIENT ONCOLOGY [place] 330 [facility] 110 [place] [address] 07/31/2025 10:00 AM EDT Office Visit [facility] PULMONARY & CRITICAL CARE MEDICINE 3000 [facility] [place] [address] [place] [address] Maxine Gibson, PARVIZ [address] [place] [address] 09/02/2025 10:00 AM EST Office Visit [facility] UROLOGY 1760 [facility] 502 [place] [address] Sanam Saunders, ROUTEMAN 1760 [facility] 502 [place] [address] 09/24/2025 9:15 AM EST Office Visit [facility] RHEUMATOLOGY [address] [address] John Sheppard APRN [address] [phone] 02/03/2026 10:45 AM EDT Office Visit [facility] RHEUMATOLOGY [address] [address] Patrice Santana DO [address] [address] documented as of this encounter [...] documented as of this encounter Care Teams Classroom Coordinator Relationship Specialty Start Date End Date Reza Panchal MD [facility] [place] [address] PCP - General Family Medicine 09/30/24 documented as of this encounter
--- OUTSIDE RECORDS SUMMARY | 2025-06-19 10:24 | XMS_ITS | Encounter Summary ---
[facility] Address [address] [place] [address] Care Team Providers Care Manager Alliance Name Role Phone Reza Pnachal MD Primary Care Provider +1- [phone] Reason for Visit * Reason Comments Med Refill Encounter Details Date Type Department Care Team (Late st Contact Info) Description 07/03/2023 Refill [facility] PRIMARY CARE [address] [address] Huyen Hall MD [address] [address] Reactive depression; Type 2 diabetes mellitus with [...] Info) Description 06/25/2025 9:00 AM EDT Infusion [facility] OUTPATIENT ONCOLOGY [place] 330 [place] [facility] 110 [place] [address] 07/01/2025 11:00 AM EDT Office Visit [facility] UROLOGY 1760 [facility] [address] [place] [phone] Brennan Lee MD 1760 [facility] 502 [place] [address] 07/23/2025 10:00 AM EDT Infusion [facility] OUTPATIENT ONCOLOGY [place] 330 [place] [facility] 110 [place] [address] 07/31/2025 10:00 AM EDT Office Visit [facility] PULMONARY & CRITICAL CARE MEDICINE 3000 [facility] [address] [place] [address] Maxine Gibson, CONSERVATION TECHNICIAN [address] [place] [address] 09/02/2025 10:00 AM EST Office Visit [facility] UROLOGY 1760 [facility] [address] [place] [address] SantysienaSanam, CONSERVATION TECHNICIAN 1760 [facility] [address] [place] [id number] 09/24/2025 9:15 AM EST Office Visit [facility] RHEUMATOLOGY [address] [phone] John Sheppard, PARVIZ [address] [address] 02/03/2026 10:45 AM EDT Office Visit [facility] RHEUMATOLOGY [address] [phone] Patrice Santana, [address] [phone] documented as of this encounter Visit Diagnoses [...] as of this encounter Care Teams Manager Alliance Relationship Specialty Start Date End Date Reza Panchal MD [facility] [place] [address] PCP - General Family Medicine 09/30/24 documented as of this encounter
--- OUTSIDE RECORDS SUMMARY | 2025-06-19 10:24 | XMS_ITS | Encounter Summary ---
Author Organization [facility] Address [address] [place] [address] Care Team Providers Care Blackjack Supervisor Name Role Phone Reza Panchal MD Primary Care Provider +1- [phone] Encounter Details Date Type Department Care Team [...] Info) Description 06/25/2025 9:00 AM EDT Infusion [facility] OUTPATIENT ONCOLOGY [place] [address] [place] [address] [place] [address] 07/01/2025 11:00 AM EDT Office Visit [facility] UROLOGY 1760 [facility] [place] [address] [place] [address] Brennan Lee MD 1760 [facility] 502 [place] [address] 07/23/2025 10:00 AM EDT Infusion [facility] OUTPATIENT ONCOLOGY [place] [address] [place] [address] [place] [address] 07/31/2025 10:00 AM EDT Office Visit [facility] PULMONARY & CRITICAL CARE MEDICINE 3000 [facility] [address] [place] [address] Maxine Gibson, HAND BINDER STRIPPER 2400 [place] [address] 09/02/2025 10:00 AM EST Office Visit [facility] UROLOGY 1760 [facility] 502 [place] [address] Sanam Saunders, HAND BINDER STRIPPER 1760 [facility] 502 [place] [address] 09/24/2025 9:15 AM EST Office Visit [facility] RHEUMATOLOGY [address] [place] [address] John Sheppard, HAND BINDER STRIPPER [address] [place] [address] [place] [address] 02/03/2026 10:45 AM EDT Office Visit [facility] RHEUMATOLOGY [address] [place] [address] Patrice Santana, DO [address] [place] [address] [place] [address] documented as of this encounter Goals Goal [...] documented as of this encounter Care Teams Blackjack Supervisor Relationship Specialty Start Date End Date Reza Panchal MD [address] [address] PCP - General Family Medicine 09/30/24 documented as of this encounter
--- OUTSIDE RECORDS SUMMARY | 2025-06-19 10:24 | XMS_ITS | Encounter Summary ---
[facility] Address [address] [place] [address] Care Team Providers Care Senior Software Tester Name Role Phone Reza Panchal MD Primary Care Provider +1- [phone] Reason for Visit * Reason Onset Date Comments DR SANTILLAN - CLINICAL 05/08/2025 Encounter Details Date Type Department Care Team (Late st Contact Info) Description 05/08/2025 Telephone [facility] UROLOGY 1760 [place] [address] Brennan Santillan MD 1760 [place] [address] DR SANTILLAN - CLINICAL Social History Tobacco Use Types Packs/Day Years Used Date Smoking Tobacco: Never Passive Smoke Exposure: Past Smokeless Tobacco: Never Comments: smokes, for 45 years Alcohol Use Standard Drinks/Week Comments No 0 (1 standard drink = 0.6 oz pur e alcohol) [facility] Utilities Answer Date Recorded In the past 12 months has [employer], gas, oil, or water company threatened to [...] or training? Not on file Preferred Language Polish 01/28/2025 PHQ-2 Answer Date Recorded Retired PHQ-9: [...] for Call: [facility] WITH SEPSIS DUE TO UTI. PATIENT REQUESTING A FU WITH DR SANTILLAN. UTI URINARY SYMPTOMS STARTED AGAIN YESTERDAY. PLEASE ADVISE ON SCHEDULING. REACH OUT TO ERICA [phone] When was the patient last seen: 03-26-25 HUB AGENT UNABLE TO WARM TRANSFER. PLEASE REACH OUT ANA CRISTINA documented in this encounter Plan of Treatment Upcoming Encounters Date Type Department Care Team (Late st Contact Info) Description 06/25/2025 9:00 AM EDT Infusion [facility] OUTPATIENT ONCOLOGY [place] 330 [facility] 110 [place] [address] 07/01/2025 11:00 AM EDT Office Visit [facility] UROLOGY 1760 [facility] 502 [place] [address] Brennan Santillan MD 1760 [facility] 502 [place] [address] 07/23/2025 10:00 AM EDT Infusion [facility] OUTPATIENT ONCOLOGY [place] 330 [facility] 110 [place] [address] 07/31/2025 10:00 AM EDT Office Visit [facility] PULMONARY & CRITICAL CARE MEDICINE 3000 [facility] [address] [place] [address] Maxine Gibson, ROLL MACHINE OPERATOR 2400 [place] [address] 09/02/2025 10:00 AM EST Office Visit [facility] UROLOGY 1760 [facility] 502 [place] [address] Sanam Saunders, ROLL MACHINE OPERATOR 1760 [facility] [address] [place], [place] [phone] 09/24/2025 9:15 AM EST Office Visit [facility] RHEUMATOLOGY [address] [phone] John Sheppard, ROLL MACHINE OPERATOR [address] [phone] 02/03/2026 10:45 AM EDT Office Visit [facility] RHEUMATOLOGY [address] [place] [address] [phone] Patrice Santana, [address] [phone] documented as of this encounter Goals Goal [...] as of this encounter Care Teams Senior Software Tester Relationship Specialty Start Date End Date Reza Panchal MD 1210 [place] [address] PCP - General Family Medicine 09/30/24 documented as of this encounter
--- OUTSIDE RECORDS SUMMARY | 2025-06-19 10:24 | XMS_ITS | Encounter Summary ---
Author Organization [facility] Address [address] [place] [address] Care Team Providers Care Business Services Tech Name Role Phone Reza Panchal MD Primary Care Provider +1- [phone] Encounter Details Date Type Department Care Team (Late st Contact Info) Description 08/17/2024 Ophth Exam [facility] [address] [place] [address] Tian Ramírez MD [address] [place] [address] Social History Tobacco Use Types Packs/Day [...] on filedocumented in this encounter Care Teams Business Services Tech Relationship Specialty Start Date End Date Reza Panchal MD [address] [place] [address] PCP - General 08/17/24 documented as of this encounter
--- OUTSIDE RECORDS SUMMARY | 2025-06-19 10:24 | XMS_ITS | Encounter Summary ---
Author Organization [facility] Address [address] [place] [address] Care Team Providers Care Merchant Police Name Role Phone Reza Panchal MD Primary Care Provider +1- [phone] Encounter Details Date Type Department Care Team (Latest Contact Info) Description 05/06/2025 Travel Social History Tobacco Use Types Packs/Day Years Used Date Smoking Tobacco: Never Passive Smoke Exposure: Past Smokeless Tobacco: Never Comments: smokes, for 45 years Alcohol Use Standard Drinks/Week Comments No 0 (1 standard drink = 0.6 oz pur e alcohol) [facility] Utilities Answer Date Recorded In [...] Info) Description 06/25/2025 9:00 AM EDT Infusion [facility] OUTPATIENT ONCOLOGY [place] [address] [place] [address] [place] [address] 07/01/2025 11:00 AM EDT Office Visit [facility] UROLOGY 1760 [facility] 502 [place] [address] Brennan Lee MD 1760 [facility] 502 [place] [address] 07/23/2025 10:00 AM EDT Infusion [facility] [place] [address] [facility] 110 [place] [address] 07/31/2025 10:00 AM EDT Office Visit [facility] PULMONARY & CRITICAL CARE MEDICINE 3000 [facility] 240 [place] [address] Maxine Gibson, POCKET STITCHER 2400 [place] [address] 09/02/2025 10:00 AM EST Office Visit [facility] UROLOGY 1760 [facility] 502 [place] [address] Sanam Saunders, POCKET STITCHER 1760 [facility] 502 [place] [address] 09/24/2025 9:15 AM EST Office Visit [facility] RHEUMATOLOGY [address] 100 [place] [address] John Sheppard, POCKET STITCHER [address] [facility] 100 [place] [address] 02/03/2026 10:45 AM EDT Office Visit [facility] RHEUMATOLOGY [address] [place] [address] Patrice Santana, DO [address] [facility] 100 [place] [address] documented as of this encounter Goals Goal [...] documented as of this encounter Care Teams Merchant Police Relationship Specialty Start Date End Date Reza Panchal MD [address] [address] PCP - General Family Medicine 09/30/24 documented as of this encounter
--- OUTSIDE RECORDS SUMMARY | 2025-06-19 10:24 | XMS_ITS | Encounter Summary ---
Author Organization [facility] Address [address] [place] [address] Care Team Providers Care Thermite Bomb Loader Name Role Phone Reza Panchal MD Primary Care Provider +1- [phone] Encounter Details Date Type Department Care Team (Late st Contact Info) Description 05/07/2025 Results Follow-Up [facility] AT [address] [place] [address] Robert Graham, PA-C 1720 [facility] [address] [place] [address] Social History Tobacco Use Types Packs/Day Years Used Date Smoking Tobacco: Never Passive Smoke Exposure: Past Smokeless Tobacco: Never Comments: smokes, for 45 years Alcohol Use Standard Drinks/Week Comments No 0 (1 standard drink = 0.6 oz pur e alcohol) [facility] Utilities Answer Date Recorded In the past 12 months has [employer], gas, oil, or water company threatened [...] or training? Not on file Preferred Language Cook Islander 01/28/2025 PHQ-2 Answer Date Recorded Retired [...] 05/07/2025 8:36 AM EDT Results sent via [employer]. documented in this encounter Plan of Treatment Upcoming Encounters Date Type Department Care Team (Late st Contact Info) Description 06/25/2025 9:00 AM EDT Infusion [facility] OUTPATIENT ONCOLOGY [place] [address] [place] [address] [place] [address] 07/01/2025 11:00 AM EDT Office Visit [facility] UROLOGY 1760 [facility] [place] [address] [place] [address] Brennan Lee MD 1760 [facility] [place] [address] [place] [address] 07/23/2025 10:00 AM EDT Infusion [facility] OUTPATIENT ONCOLOGY [place] 330 [facility] 110 [place] [address] 07/31/2025 10:00 AM EDT Office Visit [facility] PULMONARY & CRITICAL CARE MEDICINE 3000 [facility] [place] 240 [place] [address] Maxine Gibson, DIRECTOR OF PLAYER PERSONNEL 2400 [place] [address] 09/02/2025 10:00 AM EST Office Visit [facility] UROLOGY 1760 [facility] 502 [place] [address] Sanam Saunders, DIRECTOR OF PLAYER PERSONNEL 1760 [facility] [address] [place] [address] 09/24/2025 9:15 AM EST Office Visit [facility] RHEUMATOLOGY [address] [phone] John Sheppard APRN 330 [facility] 100 [place] [address] 02/03/2026 10:45 AM EDT Office Visit [facility] RHEUMATOLOGY 330 [facility] 100 [place] [address] Patrice Santana DO 330 [facility] 100 [place] [address] documented as of this encounter Goals Goal [...] documented as of this encounter Care Teams Thermite Bomb Loader Relationship Specialty Start Date End Date Reza Panchal MD [address] [place] [address] PCP - General Family Medicine 09/30/24 documented as of this encounter
--- OUTSIDE RECORDS SUMMARY | 2025-06-19 10:24 | XMS_ITS | Clinical Summary ---
Author Organization [facility] Address 1720 [facility] [address] [place] [address] Phone Care Team Providers Care Hop Trainer Name Role Phone Unavailable Unavailable Conditions or Problems No information available. Medications No information available. Medications Administered No information available. Allergies, Adverse Reactions, Alerts No information available. Results No information available. Plan of Care No information available. Procedures No information available. Vital Signs No information available. Immunizations No information available. Advance Directives No information available.
--- OUTSIDE RECORDS SUMMARY | 2025-06-19 10:24 | XMS_ITS | Encounter Summary ---
Author Organization [facility] Address [address] [place] [address] Care Team Providers Care Broadcast Operations Engineer Name Role Phone Reza Panchal MD Primary Care Provider +1- [phone] Reason for Visit * Reason Comments Med Refill Encounter Details Date Type Department Care Team (Late st Contact Info) Description 03/22/2024 Refill [facility] PRIMARY CARE [address] [address] Huyen Hall MD [address] [address] Acquired hypothyroidism Social History Tobacco Use Types Packs/Day Years Used Date Smoking Tobacco: Never Smokeless Tobacco: Never Comments: smokes, for 45 years Alcohol Use Standard Drinks/Week Comments No 0 (1 standard drink = 0.6 oz pur e alcohol) [facility] Utilities Answer Date Recorded In the past 12 months has [employer], gas, oil, or water company threatened [...] or training? Not on file Preferred Language Nicaraguan 01/11/2024 PHQ-2 Answer Date Recorded Retired PHQ-9: [...] Info) Description 06/25/2025 9:00 AM EDT Infusion [facility] OUTPATIENT ONCOLOGY [place] 330 [facility] 110 [place] [address] 07/01/2025 11:00 AM EDT Office Visit [facility] UROLOGY 1760 [facility] 502 [place] [address] Brennan Lee MD 1760 [facility] 502 [place] [address] 07/23/2025 10:00 AM EDT Infusion [facility] OUTPATIENT ONCOLOGY [place] 330 [facility] 110 [place] [address] 07/31/2025 10:00 AM EDT Office Visit [facility] PULMONARY & CRITICAL CARE MEDICINE 3000 [facility] 240 [place] [address] Maxine Gbison, INSIDE CHANNEL ACCOUNT MANAGER 2400 [place] [address] 09/02/2025 10:00 AM EST Office Visit [facility] UROLOGY 1760 [facility] 502 [place] [address] Sanam Saunders, INSIDE CHANNEL ACCOUNT MANAGER 1760 [facility] [address] [place] [address] 09/24/2025 9:15 AM EST Office Visit [facility] RHEUMATOLOGY 330 [facility] 100 [place] [address] John Sheppard, INSIDE CHANNEL ACCOUNT MANAGER [address] [address] 02/03/2026 10:45 AM EDT Office Visit [facility] RHEUMATOLOGY [address] [address] Patrice Santana DO [address] [phone] documented as of this encounter Goals Goal [...] documented as of this encounter Care Teams Broadcast Operations Engineer Relationship Specialty Start Date End Date Reza Panchal MD [address] [place] [address] PCP - General Family Medicine 09/30/24 documented as of this encounter
--- OUTSIDE RECORDS SUMMARY | 2025-06-19 10:24 | XMS_ITS | Encounter Summary ---
Author Organization [facility] Address [address] [place] [address] Care Team Providers Care Chief Design Engineer Name Role Phone Reza Panchal MD Primary Care Provider +1- [phone] Encounter Details Date Type Department Care Team (Late st Contact Info) Description 01/15/2025 Results Follow-Up [facility] RHEUMATOLOGY [address] [address] Patrice Santana DO 330 [place] [id number] Social History Tobacco Use Types Packs/Day Years Used Date Smoking Tobacco: Never Passive Smoke Exposure: Past Smokeless Tobacco: Never Comments: smokes, for 45 years Alcohol Use Standard Drinks/Week Comments No 0 (1 standard drink = 0.6 oz pur e alcohol) [facility] Utilities Answer Date Recorded In the past 12 months has [employer], gas, oil, or water [employer] threatened to shut off services in your [...] training? Not on file Preferred Language Maltese 05/28/2024 PHQ-2 Answer Date Recorded Retired PHQ-9: [...] EDT Infusion [facility] OUTPATIENT ONCOLOGY [place] 330 [facility] 110 [place] [address] 07/01/2025 11:00 AM EDT Office Visit [facility] UROLOGY 1760 [facility] 502 [place] [address] Brennan Lee MD 1760 [facility] 502 [place] [address] 07/23/2025 10:00 AM EDT Infusion [facility] OUTPATIENT ONCOLOGY [place] 330 [facility] 110 [place] [address] 07/31/2025 10:00 AM EDT Office Visit [facility] PULMONARY & CRITICAL CARE MEDICINE 3000 [facility] 240 [place] [address] Maxine Gibson, SUPERVISOR PLASMA 2400 [place] [address] 09/02/2025 10:00 AM EST Office Visit [facility] UROLOGY 1760 [facility] 502 [place] [address] Sanam Saunders, SUPERVISOR PLASMA 1760 [facility] [address] [place] [address] 09/24/2025 9:15 AM EST Office Visit [facility] RHEUMATOLOGY [address] [facility] 100 [place] [address] John Sheppard, SUPERVISOR PLASMA [address] [place] [address] [address] 02/03/2026 10:45 AM EDT Office Visit [facility] RHEUMATOLOGY [address] [address] Patrice Santana, DO [address] [address] documented as of this encounter Goals Goal [...] as of this encounter Care Teams Chief Design Engineer Relationship Specialty Start Date End Date Reza Panchal MD 1210 [place] [address] PCP - General Family Medicine 09/30/24 documented as of this encounter
--- OUTSIDE RECORDS SUMMARY | 2025-06-19 10:24 | XMS_ITS ---
Author Name Ephraim RN, CRIMINAL JUSTICE LAWYER, Leigh martinez Sarina Address [address] [address] Phone [phone] Organization [facility] Care Team Providers Care Ribbon Hanking Machine Operator Name Role Phone Ivonne Ye Unavailable [phone] Reason for Referral Not Available Allergies, adverse [...] 50 mg Tab TAKE 1 TABLET BY [facility] ONCE DAILY IN AM WITH [...] mg Cap TAKE 1 CAPSULE BY [facility] TWICE DAILY FOR 10 DAYS 2024-08-14 [...] EVERY 12 HOURS 2024-01-03 No Data Available Nzbyaksp-Stqkznihe-Ngwqozhs [id number] Suspension SHAKE LIQUID AND INSTILL 1 DROP [...] mplaint [facility] 7 Day Dis[facility] [place], [place] 12/25/2024 Encntr for f/u exam aft trtm t for cond oth than malig neoplmSepsis, unspecified organism [facility] 7 Day Disch [place] 12/25/2024 Encntr for f/u exam aft trtm t for cond oth than malig neoplmSepsis, unspecified organism [facility] 7 Day Disch [place] 12/25/2024 Encntr for f/u exam aft trtm t for cond oth than malig neoplmSepsis, unspecified organism [facility] 7 Day Disch [place] 12/25/2024 Encntr for f/u exam aft trtm t for cond oth than malig neoplmSepsis, unspecified organism Telephone E/M Service; 5-10 min of Medical Discussion (Audio Only) [place], 12/27/2024 Sepsis, unspecified organism Telephone E/M Service; 5-10 min of Medical Discussion (Audio Only) [place], 12/27/2024 Sepsis, unspecified organism Vital Signs Date of Collection Vitals 2024-12-25 14:07:15 BP Diastolic - 79.0 mm[Hg]BP Systolic - 143.0 mm[Hg]Heart Rate - 92.0 /min Social History Sex Female History of Procedures Procedures Service Procedure code Service date Servicing provider Phone# [facility] 7 Day Disch [id number] 2024-12-25 No Data Available No Data Avail [...] 5-10 min of Medical Discussion (Audio Only) [id number] 2024-12-27 No Data Available No Data Availa [...] getting around the house wellLana 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 Advised pt to call to reach our staff.Needs/concerns for [facility] provider to address during PD visit: 1) [...] review 2024-12-27 Type of Visit: [facility]: [facility] Date: 12/19/24Discharge diagnosis: [...]
--- OUTSIDE RECORDS SUMMARY | 2025-06-19 10:24 | XMS_ITS | Encounter Summary ---
Author Organization [facility] Address [address] [place] [address] Care Team Providers Care Identification And Records Commander Name Role Phone Reza Panchal MD Primary Care Provider +1- [phone] Reason for Visit * Reason Comments Med Refill Encounter Details Date Type Department Care Team (Late st Contact Info) Description 02/12/2021 Refill [facility] PRIMARY CARE [address] [address] Huyen Hall MD 2039 [facility] 100 [place] [address] Gastroesophageal reflux disease, unspecified whether esophagitis present [...] Info) Description 06/25/2025 9:00 AM EDT Infusion [facility] OUTPATIENT ONCOLOGY [place] 330 [facility] 110 [place] [address] 07/01/2025 11:00 AM EDT Office Visit [facility] UROLOGY 1760 [facility] DREAD [facility] 502 [place] [address] Brennan Lee MD 1760 [facility] 502 [place] [phone] 07/23/2025 10:00 AM EDT Infusion [facility] OUTPATIENT ONCOLOGY [place] 330 [facility] 110 [place] [address] 07/31/2025 10:00 AM EDT Office Visit [facility] PULMONARY & CRITICAL CARE MEDICINE 3000 [facility] [place] [place] [address] Maxine Gibson, JANITORIAL MANAGER [address] [place] [address] 09/02/2025 10:00 AM EST Office Visit [facility] UROLOGY 1760 [facility] [place] 502 [place] [address] ArtFaheemGuiSanam, JANITORIAL MANAGER 1760 [facility] [address] [place] [id number] 09/24/2025 9:15 AM EST Office Visit [facility] RHEUMATOLOGY [address] [address] John Sheppard, JANITORIAL MANAGER [address] [phone] 02/03/2026 10:45 AM EDT Office Visit [facility] RHEUMATOLOGY [address] [phone] Patrice Santana, [address] [phone] documented as of this encounter Visit Diagnoses [...] documented as of this encounter Care Teams Identification And Records Commander Relationship Specialty Start Date End Date Reza Panchal MD 1210 [place] [address] PCP - General Family Medicine 09/30/24 documented as of this encounter
--- OUTSIDE RECORDS SUMMARY | 2025-06-19 10:24 | XMS_ITS | Encounter Summary ---
Author Organization [facility] Address [address] [place] [address] Care Team Providers Care Commercial Credit Officer Name Role Phone eRza Panchal MD Primary Care Provider +1- [phone] Encounter Details Date Type Department Care Team (Latest Contact Info) Description 06/05/2025 Travel Social History Tobacco Use Types Packs/Day Years Used Date Smoking Tobacco: Never Passive Smoke Exposure: Past Smokeless Tobacco: Never Comments: smokes, for 45 years Alcohol Use Standard Drinks/Week Comments No 0 (1 standard drink = 0.6 oz pur e alcohol) [facility] Utilities Answer Date Recorded In [...] Info) Description 06/25/2025 9:00 AM EDT Infusion [facility] OUTPATIENT ONCOLOGY [place] [address] [place] [address] [place] [address] 07/01/2025 11:00 AM EDT Office Visit [facility] UROLOGY 1760 [facility] [place] [address] [place] [address] Brennan Lee MD 1760 [facility] 502 [place] [address] 07/23/2025 10:00 AM EDT Infusion [facility] OUTPATIENT ONCOLOGY [place] [address] [facility] 110 [place] [address] 07/31/2025 10:00 AM EDT Office Visit [facility] PULMONARY & CRITICAL CARE MEDICINE 3000 [facility] 240 [place] [phone] Maxine Gibson, MEMORY CARE PROGRAM RESIDENT 2400 [place] [address] 09/02/2025 10:00 AM EST Office Visit [facility] UR[facility]Y 1760 [facility] 502 [place] [address] Sanam Saunders, MEMORY CARE PROGRAM RESIDENT 1760 [facility] 502 [place] [address] 09/24/2025 9:15 AM EST Office Visit [facility] RHEUMATOLOGY [address] [place] [address] John Sheppard, MEMORY CARE PROGRAM RESIDENT [address] [facility] 100 [place] [address] 02/03/2026 10:45 AM EDT Office Visit [facility] RHEUMATOLOGY [address] [place] [address] Patrice Santana, DO [address] [facility] 100 [place] [address] documented as of this encounter Goals Goal [...] as of this encounter Care Teams Commercial Credit Officer Relationship Specialty Start Date End Date Reza Panchal MD [address] [address] PCP - General Family Medicine 09/30/24 documented as of this encounter
--- OUTSIDE RECORDS SUMMARY | 2025-06-19 10:24 | XMS_ITS | Encounter Summary ---
[facility] Address [address] [place] [address] Care Team Providers Care Physical Therapist Clinic Director Name Role Phone Reza Panchal MD Primary Care Provider +1- [phone] Encounter Details Date Type Department Care Team (Late st Contact Info) Description 06/04/2025 Results Follow-Up [facility] RHEUMATOLOGY [address] [address] Patrice Santana DO 330 [place] [id number] Social History Tobacco Use Types Packs/Day Years Used Date Smoking Tobacco: Never Passive Smoke Exposure: Past Smokeless Tobacco: Never Comments: smokes, for 45 years Alcohol Use Standard Drinks/Week Comments No 0 (1 standard drink = 0.6 oz pur e alcohol) [facility] Utilities Answer Date Recorded In the past 12 months has [employer], gas, oil, or water [employer] threatened to shut off services in your [...] or training? Not on file Preferred Language Djiboutian 01/28/2025 PHQ-2 Answer Date Recorded Retired PHQ-9: [...] Description 06/25/2025 9:00 AM EDT Infusion [facility] OUTPATIENT ONCOLOGY [place] 330 [facility] 110 [place] [address] 07/01/2025 11:00 AM EDT Office Visit [facility] UROLOGY 1760 [facility] [address] [place] [address] Brennan Lee MD 1760 [facility] [address] [place] [address] 07/23/2025 10:00 AM EDT Infusion [facility] OUTPATIENT ONCOLOGY [place] 330 [facility] 110 [place] [address] 07/31/2025 10:00 AM EDT Office Visit [facility] PULMONARY & CRITICAL CARE MEDICINE 3000 [facility] 240 [place] [address] Maxine Gibson, SLICE CUTTING MACHINE OPERATOR HELPER 2400 [place] [address] 09/02/2025 10:00 AM EST Office Visit [facility] UROLOGY 1760 [facility] [address] [place] [address] Sanam Saunders, SLICE CUTTING MACHINE OPERATOR HELPER 1760 [facility] 502 [place], [place] [phone] 09/24/2025 9:15 AM EST Office Visit [facility] RHEUMATOLOGY 330 [facility] 100 [place] [address] John Sheppard, SLICE CUTTING MACHINE OPERATOR HELPER [address] [address] [address] 02/03/2026 10:45 AM EDT Office Visit [facility] RHEUMATOLOGY 330 [place] [address] Patrice Santana, DO 330 [address] [phone] documented as of this encounter Goals Goal [...] documented as of this encounter Care Teams Physical Therapist Clinic Director Relationship Specialty Start Date End Date Reza Panchal MD 1210 [place] [address] PCP - General Family Medicine 09/30/24 documented as of this encounter
--- OUTSIDE RECORDS SUMMARY | 2025-06-19 10:24 | XMS_ITS | Encounter Summary ---
[facility] Organization [facility] Address [address] [place] [address] Care Team Providers Care Hogshead Head Matcher Name Role Phone Reza Panchal MD Primary Care Provider +1- [phone] Encounter Details Date Type Department Care Team (Late st Contact Info) Description 06/05/2025 Telephone [facility] RHEUMATOLOGY [address] [address] John Sheppard APRN [address] [address] Social History Tobacco Use Types Packs/Day Years Used Date Smoking Tobacco: Never Passive Smoke Exposure: Past Smokeless Tobacco: Never Comments: smokes, for 45 years Alcohol Use Standard Drinks/Week Comments No 0 (1 standard drink = 0.6 oz pur e alcohol) [facility] Utilities Answer Date Recorded In the past 12 months has [employer], gas, oil, or water [employer] threatened to shut off services in your [...] or training? Not on file Preferred Language Iranian 01/28/2025 PHQ-2 Answer Date Recorded Retired PHQ-9: [...] been on alendronate but thinks it was [phone] when she originally started it. It was [...] AM EDT Please get hospital records from [facility]. documented in this encounter Plan of Treatment Upcoming Encounters Date Type Department Care Team (Late st Contact Info) Description 06/25/2025 9:00 AM EDT Infusion [facility] OUTPATIENT ONCOLOGY [place] 330 [facility] 110 [place] [address] 07/01/2025 11:00 AM EDT Office Visit [facility] UROLOGY 1760 [facility] [address] [place] [address] Brennan Lee MD 1760 [facility] [address] [place] [address] 07/23/2025 10:00 AM EDT Infusion [facility] OUTPATIENT ONCOLOGY [place] 330 [facility] 110 [place] [address] 07/31/2025 10:00 AM EDT Office Visit [facility] PULMONARY & CRITICAL CARE MEDICINE 3000 [facility] [address] [place] [address] Maxine Gibson APRN [address] [place] [address] 09/02/2025 10:00 AM EST Office Visit [facility] UROLOGY 1760 [facility] [address] [place] [address] PinoAaron Sanam, ZOO DIRECTOR 1760 [facility] [address] [place], [place] [address] 09/24/2025 9:15 AM EST Office Visit [facility] RHEUMATOLOGY [address] [place] [address] [phone] John Sheppard APRN [address] [id number] 02/03/2026 10:45 AM EDT Office Visit [facility] RHEUMATOLOGY [address] [phone] Patrice Santana, [address] [id number] documented as of this encounter Goals Goal [...] documented as of this encounter Care Teams Hogshead Head Matcher Relationship Specialty Start Date End Date Reza Panchal MD [facility] [place] [address] PCP - General Family Medicine 09/30/24 documented as of this encounter
--- OUTSIDE RECORDS SUMMARY | 2025-06-19 10:24 | XMS_ITS | Clinical Summary ---
Author Organization Healthcare Address [address] [place] [address] Care Team Providers Care Metal Engraver Name Role Phone Reza Panchal MD Primary Care Provider +1- [phone] Allergies Active Allergy Reactions Criticality Noted Date [...] file Insurance [employer] [place]ICARE [place] Care Teams Metal Engraver Relationship Specialty Start Date End Date Reza Panchal MD [address] [place] [address] PCP - General 08/17/24
--- OUTSIDE RECORDS SUMMARY | 2025-06-19 10:25 | XMS_ITS | Encounter Summary ---
Author Organization [facility] Address [address] [place] [address] Care Team Providers Care Applications Coordinator Name Role Phone Reza Panchal MD Primary Care Provider +1- [phone] Reason for Visit * Reason Onset Date Comments CANCEL PROCEDURE 05/28/2025 Encounter Details Date Type Department Care Team (Late st Contact Info) Description 05/28/2025 Telephone [facility] GASTROENTEROLOGY [address] [address] Ivelisse Cordon MD 1720 [place] [address] CANCEL PROCEDURE Social History Tobacco Use Types Packs/Day Years Used Date Smoking Tobacco: Never Passive Smoke Exposure: Past Smokeless Tobacco: Never Comments: smokes, for 45 years Alcohol Use Standard Drinks/Week Comments No 0 (1 standard drink = 0.6 oz pur e alcohol) [facility] Utilities Answer Date Recorded In the past 12 months has [employer], gas, oil, or water company threatened to [...] patient: Emergency Contact Best call back number: [phone] Chief complaint: CANCEL PROCEDURE Type of visit: EGD Requested date: NONE If rescheduling, when is the original appointment: 06/23/2025 Additional notes:PT HAD TO HAVE EGD DONE WHILE IN THE HOSPITAL. PLEASE CANCEL PROCEDURE documented in this encounter Plan of Treatment Upcoming Encounters Date Type Department Care Team (Late st Contact Info) Description 06/25/2025 9:00 AM EDT Infusion [facility] OUTPATIENT ONCOLOGY [place] 330 [facility] 110 [place] [address] 07/01/2025 11:00 AM EDT Office Visit [facility] UROLOGY 1760 [facility] 502 [place] [address] Brennan Lee MD 1760 [facility] [address] [address] [place] [address] 07/23/2025 10:00 AM EDT Infusion [facility] OUTPATIENT ONCOLOGY [place] 330 [facility] [address] [place] [address] 07/31/2025 10:00 AM EDT Office Visit [facility] PULMONARY & CRITICAL CARE MEDICINE 3000 [facility] [address] [place] [address] Maxine Gibson, BLOWER OPERATOR [address] [place] [address] 09/02/2025 10:00 AM EST Office Visit [facility] UROLOGY [address]60 [facility] [address] [place], [place] [address] Sanam Saunders APRN 1760 [facility] [address] [place], [place] [address] 09/24/2025 9:15 AM EST Office Visit [facility] RHEUMATOLOGY [address] [place] [phone] John Sheppard APRN [address] [id number] 02/03/2026 10:45 AM EDT Office Visit [facility] RHEUMATOLOGY [address] [address] Patrice Santana DO [address] [place] [address] [id number] documented as of this encounter Goals Goal [...] Keep Skin Clean and Dry Patient Goals Ntahalia Kovacs, RN Note: Follow Up Date - [...] documented as of this encounter Care Teams Applications Coordinator Relationship Specialty Start Date End Date Reza Panchal MD [facility] [place] [address] PCP - General Family Medicine 09/30/24 documented as of this encounter
--- OUTSIDE RECORDS SUMMARY | 2025-06-19 10:25 | XMS_ITS | Encounter Summary ---
Author Organization [facility] Address [address] [place] [address] Care Team Providers Care Architectural Manager Name Role Phone Reza Panchal MD Primary Care Provider +1- [phone] Encounter Details Date Type Department Care Team (Latest Contact Info) Description 06/13/2025 Travel Social History Tobacco Use Types Packs/Day [...] Info) Description 06/25/2025 9:00 AM EDT Infusion [facility] OUTPATIENT ONCOLOGY [place] [address] [place] [phone] 07/01/2025 11:[address] EDT [address] [facility] UROLOGY 1760 [facility] [address] [place] [address] Brennan Lee MD 1760 [facility] [address] [place] [address] 07/23/2025 10:00 AM EDT Infusion [facility] OUTPATIENT ONCOLOGY [place] [address] [facility] [address] [place] [address] 07/31/2025 10:00 AM EDT Office Visit [facility] PULMONARY & CRITICAL CARE MEDICINE 3000 [facility] 240 [place] [phone] Maxine Gibson, STONEHAND 2400 [place] [address] 09/02/2025 10:00 AM EST Office Visit [facility] UROLOGY 1760 [facility] 502 [place] [address] Sanam Saunders, STONEHAND 1760 [facility] [address] [place] [address] 09/24/2025 9:15 AM EST Office Visit [facility] RHEUMATOLOGY [address] [place] [address] John Sheppard, STONEHAND [address] [facility] 100 [place] [address] 02/03/2026 10:45 AM EDT Office Visit [facility] RHEUMATOLOGY [address] [place] [address] Patrice Santana, DO [address] [facility] 100 [place] [address] documented as of this encounter Goals Goal [...] documented as of this encounter Care Teams Architectural Manager Relationship Specialty Start Date End Date Reza Panchal MD [address] [address] PCP - General Family Medicine 09/30/24 documented as of this encounter
--- OUTSIDE RECORDS SUMMARY | 2025-06-19 10:25 | XMS_ITS | Encounter Summary ---
Author Organization [facility] Address [address] [place] [phone] Care Team Providers Care Afterschool Babysitter Name Role Phone Reza Panchal MD Primary Care Provider +1- [phone] Encounter Details Date Type Department Care Team (Late st Contact Info) Description 06/17/2025 Results Follow-Up [facility] UROLOGY 1760 [place] [address] Sanam Saunders APRN 1760 [facility] [address] [place] [address] Social History Tobacco Use Types Packs/Day Years Used Date Smoking Tobacco: Never Passive Smoke Exposure: Past Smokeless Tobacco: Never Comments: smokes, for 45 years Alcohol Use Standard Drinks/Week Comments No 0 (1 standard drink = 0.6 oz pur e alcohol) [facility] Utilities Answer Date Recorded In the past 12 months has [employer] electric, gas, oil, or water company threatened [...] Info) Description 06/25/2025 9:00 AM EDT Infusion [facility] OUTPATIENT ONCOLOGY [place] 330 [facility] 110 [place] [address] 07/01/2025 11:00 AM EDT Office Visit [facility] UROLOGY 1760 [facility] 502 [place] [address] Brennan Lee MD 1760 [facility] 502 [place] [address] 07/23/2025 10:00 AM EDT Infusion [facility] OUTPATIENT ONCOLOGY [place] 330 [facility] 110 [place] [address] 07/31/2025 10:00 AM EDT Office Visit [facility] PULMONARY & CRITICAL CARE MEDICINE 3000 [facility] 240 [place] [address] Maxine Gibson, VEGETABLE TIER 2400 [place] [address] 09/02/2025 10:00 AM EST Office Visit [facility] UROLOGY 1760 [facility] 502 [place] [address] Sanam Saunders, VEGETABLE TIER 1760 [facility] [address] [place] [address] 09/24/2025 9:15 AM EST Office Visit [facility] RHEUMATOLOGY [address] [facility] 100 [place] [address] John Sheppard, VEGETABLE TIER [address] [address] 02/03/2026 10:45 AM EDT Office Visit [facility] RHEUMATOLOGY [address] [address] Patrice Santana DO [address] [id number] documented as of this encounter Goals Goal [...] documented as of this encounter Care Teams Afterschool Babysitter Relationship Specialty Start Date End Date Reza Panchal MD 1210 [place] [address] PCP - General Family Medicine 09/30/24 documented as of this encounter
--- OUTSIDE RECORDS SUMMARY | 2025-06-19 10:25 | XMS_ITS | Encounter Summary ---
Author Organization [facility] Address [address] [place] [address] Care Team Providers Care Caster Helper Name Role Phone Reza Panchal MD Primary Care Provider +1- [phone] Encounter Details Date Type Department Care Team [...] or training? Not on file Preferred Language Thai 01/28/2025 PHQ-2 Answer Date Recorded Retired PHQ-9: [...] Info) Description 06/25/2025 9:00 AM EDT Infusion [facility] OUTPATIENT ONCOLOGY [place] [address] [place] [phone] 07/01/2025 11:00 AM EDT Office [facility] UROLOGY 1760 [facility] [address] [place] [address] Brennan Lee MD 1760 [facility] 502 [place] [address] 07/23/2025 10:00 AM EDT Infusion [facility] [place] [address] [facility] 110 [place] [address] 07/31/2025 10:00 AM EDT Office Visit [facility] PULMONARY & CRITICAL CARE MEDICINE 3000 [facility] 240 [place] [address] Maxine Gibson, SYSTEMS INTEGRATION ANALYST 2400 [place] [address] 09/02/2025 10:00 AM EST Office Visit [facility] UROLOGY 1760 [facility] 502 [place] [address] Sanam Saunders, SYSTEMS INTEGRATION ANALYST 1760 [facility] 502 [place] [address] 09/24/2025 9:15 AM EST Office Visit [facility] RHEUMATOLOGY [address] [place] [address] John Sheppard, SYSTEMS INTEGRATION ANALYST [address] [facility] 100 [place] [address] 02/03/2026 10:45 AM EDT Office Visit [facility] RHEUMATOLOGY [address] [place] [address] Patrice Santana, DO [address] [facility] 100 [place] [address] documented as of this encounter Goals Goal [...] documented as of this encounter Care Teams Caster Helper Relationship Specialty Start Date End Date Reza Panchal MD [address] [address] PCP - General Family Medicine 09/30/24 documented as of this encounter
[2025-06-19 10:37] LABS: Hematocrit 34.3 % (37.0-47.0); Hemoglobin 10.5 g/dL (12.2-16.2); Immature Granulocytes % 0.2 %; Mean Corpuscular HGB Conc 30.6 g/dL (31.8-35.4); Mean Corpuscular Hemoglobin 29.1 pg (27.0-31.2); Mean Corpuscular Volume 95.0 fl (81-99); Nucleated Red Blood Cells % 0 %; Platelet Count 213 K/mm3 (142-424); Red Blood Count 3.61 M/mm3 (4.20-5.40); Red Cell Distribution Width-SD 46.0 fL; White Blood Count 6.2 K/mm3 (4.8-10.8)
[2025-06-19 11:07] LABS: Anion Gap 13.8 mEq/L (5-15); Blood Urea Nitrogen 25 mg/dl (7-17); Calcium 9.2 mg/dl (8.4-10.2); Carbon Dioxide 27 mmol/L (22.0-30.0); Chloride 106 mmol/L (98-107); Creatinine,Serum 0.80 mg/dl (0.52-1.04); Estimated Glomerular Filt Rate 71 ml/min (>60); GFR (African American) 86 ML/MIN (>60); Glucose 146 mg/dl (74-100); Potassium 4.8 mmoL/L (3.5-5.1); Sodium 142 mmol/L (136-145)
== END 2025-06-19 23:59 | disposition home or self-care (01) ==
PROVIDERS: PCP Family Medicine; Visit Provider Physician Assistant
DX: I25.10 Atherosclerotic heart disease of native coronary artery without angina pectoris (principal); I10 Essential (primary) hypertension; Z86.718 Personal history of other venous thrombosis and embolism
CPT/HCPCS: 36415; 80048; 85025

== ENCOUNTER 2025-06-30 08:28 | Day surgery (SDC) | payer MEDICARE, MEDICAID, SELFPAY ==
[2025-06-30] VITALS (38 sets, daily range): BP systolic 121–159; BP diastolic 59–95; PULSE 77–112; RESP 12–20; O2SAT 85–99; BMI 38.8
--- NOTE | 2025-06-30 06:58 | IR_ITS ---
APPROVED REPORT Patient Location: Outpatient PROCEDURES Left heart catheterization Left ventriculogram Selective coronary angiogram INDICATION Abnormal Myoview, Angina pectoris Informed consent was obtained prior to the procedure. COMPLICATIONS NONE Estimated Blood Loss: LESS THAN 10 ML TECHNIQUE One percent lidocaine used to anesthetize the right anterior aspect of the wrist. The right radial artery was accessed via the Seldinger technique. A 6 Kazakh sheath was placed in the right radial artery. 2.5 mg of Verapamil, 800 mcg of nitroglycerin, 1mg Lidocaine and 5000 U Heparin were given through the arterial sheath. 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 Because of this the right groin was used for access One percent lidocaine was used to anesthetize the right groin. The right femoral artery was accessed via the Seldinger technique. A 4-Kazakh sheath was placed in the right femoral artery. The JL-4 and JR-4 catheter was also used to perform left heart catheterization left ventriculogram and selective coronary angiogram. At the end of the procedure the patient was transferred to the post-op holding area in stable condition for arterial sheath removal. ANGIOGRAPHIC RESULTS The left main artery Has an ostial 20% stenosis The left anterior descending artery Has proximal 10 to 20% stenosis at the mid vessel 10 to 20% stenosis The circumflex artery Large codominant mild 10% luminal regularities The right coronary artery Large codominant with proximal 10 to 20% stenosis followed by proximal and mid vessel stent which is widely patent without in-stent restenosis with excellent proximal distal transitioning The FREY ventriculogram reveals Hyperdynamic at 70 to 75% The left ventricular end-diastolic pressure 25 mmHg IMPRESSION Patent coronary arteries as described above Hyperdynamic ventricle Elevated LVEDP PLAN 1. Medical management for coronary disease and elevated LVEDP Electronically signed by : Justin Rosen MD 06/30/2025 10:22:24
[2025-06-30 09:14] LABS: Hematocrit 32.9 % (37.0-47.0); Hemoglobin 10.4 g/dL (12.2-16.2); Immature Granulocytes % 0.2 %; Mean Corpuscular HGB Conc 31.6 g/dL (31.8-35.4); Mean Corpuscular Hemoglobin 28.5 pg (27.0-31.2); Mean Corpuscular Volume 90.1 fl (81-99); Nucleated Red Blood Cells % 0 %; Platelet Count 247 K/mm3 (142-424); Red Blood Count 3.65 M/mm3 (4.20-5.40); Red Cell Distribution Width-SD 42.3 fL; White Blood Count 6.3 K/mm3 (4.8-10.8)
[2025-06-30] MEDS: NITROGLYCERIN 800MCG/8ML SYR (CATH LAB) 800 MCG IA (09:17)
[2025-06-30] MEDS: VERAPAMIL 2.5MG/ML 2ML VIAL 2.5 MG IV (09:18)
[2025-06-30] MEDS: LIDOCAINE 1% 10ML MDV 10 ML IJ (09:18)
[2025-06-30] MEDS: HEPARIN 1,000 UNITS/ML 10ML VIAL (CATH LAB) 5000 UNIT IV (09:18)
[2025-06-30] MEDS: HEPARIN 1,000 UNITS/500ML NS (CATH LAB) 3000 UNIT IV (09:18)
[2025-06-30] MEDS: 0.9 % SODIUM CHLORIDE 500 ML 25 ML IV (09:18)
[2025-06-30] MEDS: ONDANSETRON 4MG/2ML VIAL 4 MG IV ×2 (09:20→11:30)
[2025-06-30 09:25] LABS: Anion Gap 11.9 mEq/L (5-15); Blood Urea Nitrogen 14 mg/dl (7-17); Calcium 9.2 mg/dl (8.4-10.2); Carbon Dioxide 28 mmol/L (22.0-30.0); Chloride 102 mmol/L (98-107); Creatinine Clearance Estimated 77 mL/min (50-200); Creatinine,Serum 0.60 mg/dl (0.52-1.04); Estimated Glomerular Filt Rate 99 ml/min (>60); GFR (African American) 120 ML/MIN (>60); Glucose 125 mg/dl (74-100); Potassium 3.9 mmoL/L (3.5-5.1); Sodium 138 mmol/L (136-145)
[2025-06-30] MEDS: MIDAZOLAM HCL 1MG/ML 5ML VIAL 1 MG IV (09:27)
[2025-06-30] MEDS: FENTANYL 100MCG/2ML VIAL 50 MCG IV (09:27)
[2025-06-30] MEDS: PROTAMINE SULFATE 50MG/5ML VIAL (CATH LAB) 50 MG IV (10:45)
--- NOTE | 2025-06-30 10:58 | CT_ITS ---
FINAL REPORT TECHNIQUE: Axial imaging of the head was obtained without contrast. This study was performed with techniques to keep radiation doses as low as reasonably achievable, (ALARA). Individualized dose reduction techniques using automated exposure control or adjustment of mA and/or kV according to the patient''s size were employed. CLINICAL HISTORY: confusion COMPARISON: 08/16/2024 FINDINGS: The ventricles are normal in size. There is no evidence of hemorrhage. No masses are identified. No extra-axial fluid is seen. There is chronic bilateral maxillary sinusitis. There is no acute osseous abnormality. IMPRESSION: No acute intracranial abnormality. Reviewed, Interpreted and Dictated by Pricila Gupta MD Transcribed by Kelsey Mena Authenticated and [facility]
--- NOTE | 2025-06-30 11:02 | SUR.PHASEII ---
Pt became confused and groaning, sats dropped tp 85 on room air, o2 applied, md notified, stat head ct ordered and 125mg of solu medrol per md
--- NOTE | 2025-06-30 11:03 | SUR.PHASEII ---
pt to ct now
[2025-06-30] MEDS: METHYLPREDNISOLONE SOD SUCC 125MG VIAL 125 MG IV (11:06)
--- NOTE | 2025-06-30 11:07 | SUR.PHASEII ---
Pt back from CT
--- NOTE | 2025-06-30 11:35 | CT_ITS ---
FINAL REPORT TECHNIQUE: Thin section axial CT with contrast with multiplanar reconstruction This study was performed with techniques to keep radiation doses as low as reasonably achievable, (ALARA). Individualized dose reduction techniques using automated exposure control or adjustment of mA and/or kV according to the patient''s size were employed. CLINICAL HISTORY: r/o aortic dissection COMPARISON: 09/26/2024 FINDINGS: There is peripheral, bandlike scarring scattered throughout the lungs with interstitial prominence suspicious for mild edema. There is no focal infiltrate. There is mild subcarinal adenopathy which is stable and likely benign reactive. There is a large hiatal hernia which has slightly increased in size from prior exam. There is no evidence of thoracic aortic aneurysm or dissection. No gross pulmonary embolism is seen. IMPRESSION: No evidence of aneurysm or dissection. Probable, mild pulmonary edema. Reviewed, Interpreted and Dictated by Pricila Gupta MD Transcribed by Kelsey Mena Authenticated and [facility]
--- NOTE | 2025-06-30 11:39 | SUR.PHASEII ---
Pt c/o severe back and abdominal pain, notified dr haile, stated to do thoracic CTA to rule out dissection, notified ct, pt to ct now
[2025-06-30] MEDS: SODIUM CHLORIDE 0.9% 10ML SYR (RAD ONLY) 10 ML IV (11:46)
[2025-06-30] MEDS: 0.9 % SODIUM CHLORIDE 50 ML VIAL IV (11:46)
[2025-06-30] MEDS: IOPAMIDOL-370 (76%);100ML BOTTLE 80 ML IV (11:47)
--- NOTE | 2025-06-30 11:48 | SUR.PHASEII ---
Pt returned from ct
[2025-06-30] MEDS: IOPAMIDOL-370 (76%);100ML BOTTLE 50 ML IV (13:16)
[2025-06-30 13:28] LABS: CATHL Activated Clotting Time 197 SEC (74-125)
== END 2025-06-30 14:24 | disposition home or self-care (01) ==
PROVIDERS: PCP Family Medicine; Visit Provider Internal Medicine
PROC: 4A023N7 Measurement of Cardiac Sampling and Pressure, Left Heart, Percutaneous Approach (ICD-10-PCS; CPT 93452; principal; 2025-06-30 08:30)
DX: I25.10 Atherosclerotic heart disease of native coronary artery without angina pectoris (principal); R07.89 Other chest pain; R06.09 Other forms of dyspnea; E03.9 Hypothyroidism, unspecified; I10 Essential (primary) hypertension; M06.9 Rheumatoid arthritis, unspecified; F03.90 Unspecified dementia, unspecified severity, without behavioral disturbance, psychotic disturbance, mood disturbance, and anxiety; E11.40 Type 2 diabetes mellitus with diabetic neuropathy, unspecified; J44.89 Other specified chronic obstructive pulmonary disease; G47.30 Sleep apnea, unspecified; E78.5 Hyperlipidemia, unspecified; R53.83 Other fatigue; Z86.718 Personal history of other venous thrombosis and embolism; Z79.890 Hormone replacement therapy; Z79.51 Long term (current) use of inhaled steroids; Z79.899 Other long term (current) drug therapy; Z88.5 Allergy status to narcotic agent; Z88.8 Allergy status to other drugs, medicaments and biological substances
CPT/HCPCS: 70450; 71275; 80048; 85025; 85347; 93458; 99152; 99153; C1725; C1769; J1200; J1644; J2003; J2405; J2720; J2919; J3010; J7040; Q9967

== ENCOUNTER 2025-07-16 20:11 | Emergency (ER) | payer MEDICARE, MEDICAID, SELFPAY ==
--- OUTSIDE RECORDS SUMMARY | 2017-02-08 12:08 | XMS_ITS | Encounter Summary ---
[facility] Address [address] [place] [address] Care Team Providers Care Glass Cut Off Supervisor Name Role Phone Lizbeth Ibarra MD Primary Care Provider Unav ailable Encounter Details Date Type Department Care Team (Late st Contact Info) Description 02/08/2017 12:08 PM EDT Hospital Encounter [facility] PULMONARY & CRITICAL CARE MEDICINE [address] [place] [phone] Social History Tobacco Use Types Packs/Day Years Used Date Smoking Tobacco: Never Passive Smoke Exposure: Past Smokeless Tobacco: Never Comments: smokes, for 45 years Alcohol Use Standard Drinks/Week Comments No 0 (1 standard drink = 0.6 oz pur e alcohol) [facility] Utilities Answer Date Recorded In the past 12 months has [employer], gas, oil, or water [employer] threatened to shut off services in your [...] or training? Not on file Preferred Language Danish 01/28/2025 PHQ-2 Answer Date Recorded Retired PHQ-9: [...] 7:09 AM EDT Dary Chapin RN * [place] Suicide Severity Rating Scale (Screener/Recent Self-Report) Question Answer Date of Assessment Author 6. Suicidal Behavior (Lifetime) No 7:09 AM EDT Dary Benites, SRAVANI documented as of this encounter Plan of Treatment Upcoming Encounters Date Type Department Care Team (Late st Contact Info) Description 07/18/2025 12:00 PM EDT Office Visit [facility] PULMONARY & CRITICAL CARE MEDICINE [address] [facility] [address] [place] [address] 07/18/2025 12:30 PM EDT Office Visit [facility] PULMONARY & CRITICAL CARE MEDICINE [address] [facility] [address] [place] [address] Maxine Gibson, BED AND BREAKFAST INNKEEPER [address] [place] [address] 07/23/2025 10:00 AM EDT Infusion [facility] OUTPATIENT ONCOLOGY [address] [place] [address] 09/02/2025 10:00 AM EST Office Visit [facility] UROLOGY [address] [facility] [address] [place] [address] Sanam Saunders, BED AND BREAKFAST INNKEEPER 1760 [facility] [address] [place] [address] 09/24/2025 9:15 AM EST Office Visit [facility] RHEUMATOLOGY [address] [address] John Sheppard APRN [address] [address] 02/03/2026 10:45 AM EDT Office Visit [facility] RHEUMATOLOGY [address] [address] Patrice Santana DO [address] [id number] documented as of this encounter Goals Goal [...] documented as of this encounter Care Teams Glass Cut Off Supervisor Relationship Specialty Start Date End Date Lizbeth Ibarra MD PCP - General 06/18/15 07/10/17 documented as of this encounter
--- OUTSIDE RECORDS SUMMARY | 2022-02-25 11:00 | XMS_ITS | Encounter Summary ---
Author Organization [facility] Address [address] [place] [address] Care Team Providers Care Wildlife Protector Name Role Phone Johanna Jeffrey MD Primary Care Provider +1- [phone] Reason for Visit * Monitoring (Routine) - Closed Specialty Diagnoses / Procedures Referred By Tia t Referred To Contact Diagnoses Palpitations Dizziness Procedures Mobile Cardiac Outpatient Telemetry Cardiac Event Monitor Tiffany Maier MD [address] [place] [address] Phone: tel: fax: [facility] [address] [facility] [address] [facility] 100 [place] [address] Phone: tel: Referral ID Status Reason Start Date Expiration Date Visits Re quested Visits Authorized [id number] Closed 02/25/2022 02/25/2023 1 1 Encounter Details Date Type Department Care Team (Late st Contact Info) Description 02/25/2022 11:00 AM EDT Hospital Encounter [facility] CARDIOLOGY [address] [place] [phone] Palpitations; Dizziness Social History Tobacco Use Types Packs/Day Years Used Date Smoking Tobacco: Never Passive Smoke Exposure: Past Smokeless Tobacco: Never Comments: smokes, for 45 years Alcohol Use Standard Drinks/Week Comments No 0 (1 standard drink = 0.6 oz pur e alcohol) [facility] Utilities Answer Date Recorded In the past 12 months has th e electric, [employer], oil, or water [employer] threatened to shut off services in your [...] or training? Not on file Preferred Language Portuguese 01/28/2025 PHQ-2 Answer Date Recorded Retired PHQ-9: [...] 7:09 AM EDT Dary Chapin RN * [place] Suicide Severity Rating Scale (Screener/Recent Self-Report) Question Answer Date of Assessment Author 6. Suicidal Behavior (Lifetime) No 7:09 AM EDT Dary Benites, RN documented as of this encounter Plan of Treatment Upcoming Encounters Date Type Department Care Team (Late st Contact Info) Description 07/18/2025 12:00 PM EDT Office Visit [facility] PULMONARY & CRITICAL CARE MEDICINE [address] [facility] [address] [place] [address] 07/18/2025 12:30 PM EDT Office Visit [facility] PULMONARY & CRITICAL CARE MEDICINE [address] [facility] [address] [place] [address] Maxine Gibson, SPEAKER WIRER [address] [place] [address] 07/23/2025 10:00 AM EDT Infusion [facility] OUTPATIENT ONCOLOGY [place] 330 [facility] [address] [address] [place] [address] 09/02/2025 10:00 AM EST Office Visit [facility] UROLOGY [address] [facility] [address] [place], [place] [phone] Sanam Saunders, SPEAKER WIRER 1760 [facility] [address] [place], [place] [phone] 09/24/2025 9:15 AM EST Office Visit [facility] RHEUMATOLOGY 330 [facility] [address] [place] [phone] John Sheppard APRN 330 [facility] 100 [place], [place] [phone] 02/03/2026 10:45 AM EDT Office Visit [facility] RHEUMATOLOGY [address] [place] [address] Patrice Santana, 330 [facility] 100 [place], [place] [id number] documented as of this encounter Goals Goal [...] 21 hours and 51 minutes. Total beats: [id number]. Average HR: 83. Min HR: 48. Max [...] documented as of this encounter Care Teams Wildlife Protector Relationship Specialty Start Date End Date Johanna Jeffrey MD [address] [address] PCP - General Internal Medicine 10/20/21 08/20/22 documented as of this encounter
--- OUTSIDE RECORDS SUMMARY | 2024-04-23 19:45 | XMS_ITS | Encounter Summary ---
[facility] [address] [place] [address] Care Team Providers Care Shredded Filler Cutter Operator Name Role Phone Rafael Pal MD, Huyen Primary Care Provider [phone] Reason for Referral * Hospital - Outpatient [...] or More Parameters Ijeoma Payne APRN [address] [place] [address] Phone: tel: fax: [facility] [address] [address] Phone: tel: fax: Referral ID Status Reason Start Date Expiration Date Visits Re quested Visits Authorized [id number] Closed 12/19/2023 12/18/2024 1 1 Reason for [...] or More Parameters Ijeoma Payne, PARVIZ [address] [facility] [address] Phone: tel: fax: [facility] [address] [address] Phone: tel: fax: Referral ID Status Reason Start Date Expiration Date Visits Re quested Visits Authorized [id number] Closed 12/19/2023 12/18/2024 1 1 Encounter Details Date Type Department Care Team (Late st Contact Info) Description 04/23/2024 7:45 PM EDT Hospital Encounter [facility] [address] [place] [address] Ijeoma Payne, PARVIZ [address] [place] [address] Dementia, unspecified dementia severity, unspecified dementia type, [...] drink = 0.6 oz pur e alcohol) [facility] Utilities Answer Date Recorded In the past 12 months has [employer], gas, oil, or water [employer] threatened to shut off services in your [...] or training? Not on file Preferred Language Iraqi 01/28/2025 PHQ-2 Answer Date Recorded Retired PHQ-9: [...] 7:09 AM EDT Dary Chapin RN * [place] Suicide Severity Rating Scale (Screener/Recent Self-Report) Question Answer Date of Assessment Author 6. Suicidal Behavior (Lifetime) No 7:09 AM EDT Dary Benites, SRAVANI documented as of this encounter Plan of Treatment Upcoming Encounters Date Type Department Care Team (Late st Contact Info) Description 07/18/2025 12:00 PM EDT Office Visit [facility] PULMONARY & CRITICAL CARE MEDICINE 3000 [facility] [place] [address] [place] [address] 07/18/2025 12:30 PM EDT Office Visit [facility] PULMONARY & CRITICAL CARE MEDICINE 3000 [facility] [place] [place] [address] Maxine Gibson, LATHE TENDER [address] [place] [address] 07/23/2025 10:00 AM EDT Infusion [facility] [place] 330 [facility] 110 [place] [address] 09/02/2025 10:00 AM EST Office Visit [facility] UROLOGY [address]60 [facility] [address] [place], [place] [address] Sanam Saunders, PARVIZ 1760 [facility] [address] [place], [place] [address] 09/24/2025 9:15 AM EST Office Visit [facility] RHEUMATOLOGY 330 [facility] 100 [place] [address] John Sheppard APRN 330 [facility] 100 [place], [place] [address] 02/03/2026 10:45 AM EDT Office Visit [facility] RHEUMATOLOGY [address] [address] Patrice Santana DO 330 [facility] 100 [place], [place] [id number] documented as of this encounter Goals Goal [...] insomnia documented in this encounter Results * NPSG (04/24/2024 5:23 AM EDT) Impressions [...] agree with the interpretation. Braden To MD, [facility] Pulmonary Critical care and Sleep medicine [...] respirations: None. 8. Bruxism: None. Ijeoma Payne [facility] SLEEP [facility] ORDERABLES Fin al Result SLEEP [...] documented as of this encounter Care Teams Shredded Filler Cutter Operator Relationship Specialty Start Date End Date Huyen Hall MD [address] [facility] 100 [place] [id number] PCP - General Family Medicine 08/21/22 07/25/24 documented as of this encounter
--- OUTSIDE RECORDS SUMMARY | 2025-05-23 13:00 | XMS_ITS | Encounter Summary ---
[facility] Address [address] [place] [address] Care Team Providers Care Real Estate Job Titles Name Role Phone Reza Panchal MD Primary Care Provider +1- [phone] Reason for Visit * Episode Based Medications (Routine) - Closed Specialty Diagnoses / Procedures Referred By Tia holman Referred To Contact Diagnoses Rheumatoid arthritis involving multiple sites with positive rheumatoid factor Procedures [place] GOLIMUMAB FOR IV USE 1MG Patrice Santana DO [address] [employer] [address] [place] [address] Phone: tel: fax: [facility] OUTPATIENT ONCOLOGY [address] [place] [address] Phone: tel: fax: Referral ID Status Reason Start Date Expiration Date Visits Re quested Visits Authorized [id number] Closed 05/06/2024 05/06/2025 1 1 Encounter Details Date Type Department Care Team (Latest Contact Info) Description 05/23/2025 1:00 PM EDT - 05/23/2025 11:59 PM EDT Hospital Encounter [facility] OUTPATIENT ONCOLOGY [address] [place] [address] Patrice Santana DO [address] [employer] [address] [place] [phone] Rheumatoid arthritis involving multiple sites with positive rheumatoid factor (Primary Dx) Discharge Disposition: Home or Self Care Social History Tobacco Use Types Packs/Day Years Used Date Smoking Tobacco: Never Passive Smoke Exposure: Past Smokeless Tobacco: Never Comments: smokes, for 45 years Alcohol Use Standard Drinks/Week Comments No 0 (1 standard drink = 0.6 oz pur e alcohol) [facility] Utilities Answer Date Recorded In the past 12 months has th e [employer], gas, oil, or water company threatened to [...] or training? Not on file Preferred Language Trinidadian 01/28/2025 PHQ-2 Answer Date Recorded Retired PHQ-9: [...] minutes. 25 tablet 5 01/03/2024 nystatin (MYCOSTATIN) [id number] UNIT/GM powderIndications:Y east dermatitis,Perineal irritation in female [...] Description 07/18/2025 12:00 PM EDT Office Visit [facility] PULMONARY & CRITICAL CARE MEDICINE 3000 [facility] [address] [place] [address] 07/18/2025 12:30 PM EDT Office Visit [facility] PULMONARY & CRITICAL CARE MEDICINE 3000 [facility] [address] [place] [address] Maxine Gibson, GATEHOUSE ATTENDANT [address]00 [place] [address] 07/23/2025 10:00 AM EDT Infusion [facility] OUTPATIENT ONCOLOGY [place] [address] [place] [phone] 09/02/2025 10:00 AM EST Office Visit [facility] UROLOGY 1760 [facility] [address] [place] [address] Sanam Saunders GATEHOUSE ATTENDANT 1760 [facility] [address] [place], [place] [phone] 09/24/2025 9:15 AM EST Office Visit [facility] RHEUMATOLOGY [address] [place] [phone] John Sheppard APRN [address] [place] [address] 02/03/2026 10:45 AM EDT Office Visit [facility] RHEUMATOLOGY [address] [place] [phone] Patrice Santana DO [address] [facility] 100 [place], [place] [address] documented as of this encounter Goals Goal [...] documented as of this encounter Care Teams Real Estate Job Titles Relationship Specialty Start Date End Date Reza Panchal MD [address] [place] [address] PCP - General Family Medicine 09/30/24 documented as of this encounter
--- OUTSIDE RECORDS SUMMARY | 2025-06-03 10:33 | XMS_ITS | Encounter Summary ---
[facility] Address [address] [place] [address] Care Team Providers Care Emt Driver Name Role Phone Reza Panchal MD Primary Care Provider +1- [phone] Reason for Referral * Diagnostic Imaging (Routine) - Closed Specialty Diagnoses / Procedures Referred By Contac t Referred To Contact Radiology Diagnoses Seropositive rheumatoid arthritis High risk medication use Primary osteoarthritis involving multiple joints Age-related osteoporosis without current pathological fracture NSAID long-term use Procedures DEXA Bone Density Axial Patrice Santana DO Phone: tel: fax: [facility] DEXA [address] [address] Phone: tel: Referral ID Status Reason Start Date Expiration Date Visits Re quested Visits Authorized [id number] Closed 01/30/2025 05/01/2026 1 1 Reason for Visit * Diagnostic Imaging (Routine) - Closed Specialty Diagnoses / Procedures Referred By Contac manda Referred To Contact Radiology Diagnoses Seropositive rheumatoid arthritis High risk medication use Primary osteoarthritis involving multiple joints Age-related osteoporosis without current pathological fracture NSAID long-term use Procedures DEXA Bone Density Axial Patrice Santana DO Phone: tel: fax: [facility] RO CROSSING DEXA [address] [facility] [address] [place] [address] Phone: tel: Referral ID Status Reason Start Date Expiration Date Visits Re quested Visits Authorized [id number] Closed 01/30/2025 05/01/2026 1 1 Encounter Details Date Type Department Care Team (Latest Contact Info) Description 06/03/2025 10:33 AM EDT - 06/03/2025 11:59 PM EDT Hospital Encounter [facility] DEXA YOEL [address] [place] [address] Patrice Santana DO [address] [facility] 100 [place] [id number] Seropositive rheumatoid arthritis; High risk medication use; [...] Recorded In the past 12 months has [employer], gas, oil, or water [employer] threatened to shut off services in your [...] or training? Not on file Preferred Language Colombian 01/28/2025 PHQ-2 Answer Date Recorded Retired PHQ-9: [...] minutes. 25 tablet 5 01/03/2024 nystatin (MYCOSTATIN) [id number] UNIT/GM powderIndications:Y east dermatitis,Perineal irritation in female [...] Description 07/18/2025 12:00 PM EDT Office Visit [facility] PULMONARY & CRITICAL CARE MEDICINE 3000 [facility] 240 [place] [address] 07/18/2025 12:30 PM EDT Office Visit [facility] PULMONARY & CRITICAL CARE MEDICINE 3000 [facility] 240 [place] [address] Maxine Gibson, CLERICAL CLERK 2400 [place] [address] 07/23/2025 10:00 AM EDT Infusion [facility] OUTPATIENT ONCOLOGY [place] 330 [facility] 110 [place] [address] 09/02/2025 10:00 AM EST Office Visit [facility] UROLOGY [address] [address] Sanam Saunders, CLERICAL CLERK 1760 [facility] [address] [place] [address] 09/24/2025 9:15 AM EST Office Visit [facility] RHEUMATOLOGY 330 [facility] 100 [place] [address] John Sheppard APRN 330 [facility] 100 [place] [address] 02/03/2026 10:45 AM EDT Office Visit [facility] RHEUMATOLOGY 330 [facility] 100 [place] [address] Patrice Santana DO [address] [place] [address] documented as of this encounter Goals Goal [...] fall-prevention measurements. The National Osteoporosis Foundation recommends (http://www.nof.org/hcp/practice/bnsehwoa-oxv-aiczklqx-guidelines/clinicians-christine de) that FDA-approved medical therapies be considered [...] the left hip with 95% confidence is 0.608081 gm/cm2 at the hip and 0.694768 g/cm2 at the lumbar spine. Report dictated by: Kiah Weston PA-c I have personally reviewed this case and agree with the findings above: Electronically Signed: Julito Kirkland MD 06/03/2025 4:39 PM EDT Workstation ID: [id number] Narrative 06/03/2025 4:39 PM EDT DUAL-ENERGY X-RAY [...] normal patients. According to criteria established by the[facility], patients with T-scores between [...] is -2.6. The Z score is -0.9. 10/18 Radius: The BMD measured at the right [...] exercises and fall-prevention measurements. The NationalOsteoporosis Foundation recommends(http://www.nof.org/hcp/practice/yvbfphta-mqo-fppkchzc-guidelines/clin ician s-guide) that FDA-approved medical therapies be [...] at the left hipwith 95% confidence is 0.377676 gm/cm2 at the hip and 0.892563 g/cm2 atthe lumbar spine. Report dictated by: Kiah Weston PA-c I have personally reviewed this case and agree with the findings above: Electronically Signed: Julito Kirkland MD 06/03/2025 4:39 PM EDT Workstation ID: [id number] Patrice Santana DO IM DXA ORDERABLES Fin al Result documented in [...] documented as of this encounter Care Teams Emt Driver Relationship Specialty Start Date End Date Reza Panchal MD [facility] [place] [address] PCP - General Family Medicine 09/30/24 documented as of this encounter
--- OUTSIDE RECORDS SUMMARY | 2025-06-05 10:45 | XMS_ITS | Encounter Summary ---
Author Organization [facility] Address [address] [place] [address] Care Team Providers Care Economics Teacher Name Role Phone Reza Panchal MD Primary Care Provider +1- [phone] Reason for Visit * Reason Comments Seropositive rheumatoid arthritis Encounter Details Date Type Department Care Team (Latest Contact Info) Description 06/05/2025 10:45 AM EDT Office Visit [facility] RHEUMATOLOGY [address] [address] John Sheppard APRN [address] [phone] Seropositive rheumatoid arthritis (Primary Dx); High risk [...] drink = 0.6 oz pur e alcohol) [facility] Utilities Answer Date Recorded In the past 12 months has e [employer], gas, oil, or water company threatened to [...] visit. Reviewed labs from [facility]. Labs also requested. * John Sheppard [...] Reyna 2nd Gen 32G X 4 MM [facility], USE 1 NEEDLE THREE TIMES [...] Disp: 25 tablet, Rfl: 5 nystatin (MYCOSTATIN) [id number] UNIT/GM powder, Apply topically to the appropriate [...] visit. Reviewed labs from [facility]. Labs also requested. High risk medication [...] Santana, MICH Sheppard APRN. John Sheppard APRN [facility] [place] documented in this encounter Plan of Treatment Upcoming Encounters Date Type Department Care Team (Late st Contact Info) Description 07/18/2025 12:00 PM EDT Office Visit [facility] PULMONARY & CRITICAL CARE MEDICINE [address] [facility] [address] [place] [address] 07/18/2025 12:30 PM EDT Office Visit [facility] PULMONARY & CRITICAL CARE MEDICINE 3000 [facility] [address] [place] [address] Maxine Gibson APRN [address] [place] [address] 07/23/2025 10:00 AM EDT Infusion [facility] OUTPATIENT ONCOLOGY [place] [address] [place] [address] 09/02/2025 10:00 AM EST Office Visit [facility] UROLOGY 1760 [facility] [address] [place] [address] Sanam Saunders APRN 1760 [facility] [address] [place] [address] 09/24/2025 9:15 AM EST Office Visit [facility] RHEUMATOLOGY [address] [address] John Sheppard APRN [address] [address] 02/03/2026 10:45 AM EDT Office Visit [facility] RHEUMATOLOGY [address] [address] Patrice Santana DO [address] [address] documented as of this encounter [...] ve Non-Reacti ve 07/08/2025 3:12 PM EDT [facility] Hep A IgM Non-Reacti ve Non-Reacti ve 07/08/2025 3:12 PM EDT [facility] Hep B C IgM Non-Reacti ve Non-Reacti ve 07/08/2025 3:12 PM EDT [facility] Hepatitis C Ab Non-Reacti ve Non-Reacti ve 07/08/2025 3:12 PM EDT [facility] Blood Venipuncture / Unknown 07/08/2025 9:03 AM EDT 07/08/2025 9:03 AM EDT Narrative [facility] - 07/08/2025 3:12 PM EDT Results may be falsely decreased if patient taking Biotin. John Sheppard APRN LAB BLOOD ORDERABLES F inal Result Performing Organization Address City/[facility]/ZIP Co de Phone Number [facility]
[address] [place] [address], [place] [phone] * Sedimentation Rate (07/08/2025 9:03 AM EDT) Sed Rate 28 0 - 30 mm/hr 07/08/2025 2:36 PM EDT [facility] Blood Venipuncture / Unknown 07/08/2025 9:03 AM EDT 07/08/2025 9:03 AM EDT John Sheppard APRN LAB BLOOD ORDERABLES F inal Result [facility]
[address] [place] [address], * C-reactive Protein (07/08/2025 9:03 AM EDT) [facility] C-Reactive Protein 0.30 0.00 - 0.50 mg/dL 07/08/2025 2:56 PM EDT [facility] Blood Venipuncture / Unknown 07/08/2025 9:03 AM EDT 07/08/2025 9:03 AM EDT John Sheppard APRN LAB BLOOD ORDERABLES F inal Result Performing Organization Address City/[facility]/ZIP Co de Phone Number [facility]
[address] [place] [address], * (ABNORMAL) Comprehensive Metabolic Panel (07/08/2025 9:03 AM EDT) [facility] Glucose 194(H) 65 - 99 mg/dL 07/08/2025 2:56 PM EDT [facility] BUN 12.0 8.0 - 23.0 mg/dL 07/08/2025 2:56 PM EDT [facility] Creatinine 0.74 0.57 - 1.00 mg/dL 07/08/2025 2:56 PM EDT [facility] Sodium 138 136 - 145 mmol/L 07/08/2025 2:56 PM EDT [facility] Potassium 4.0 3.5 - 5.2 mmol/L 07/08/2025 2:56 PM EDT [facility] Chloride 100 98 - 107 mmol/L 07/08/2025 2:56 PM EDT [facility] CO2 22.7 22.0 - 29.0 mmol/L 07/08/2025 2:56 PM EDT [facility] Calcium 9.1 8.6 - 10.5 mg/dL 07/08/2025 2:56 PM EDT [facility] Total Protein 7.4 6.0 - 8.5 g/dL 07/08/2025 2:56 PM T [facility] Albumin 3.9 3.5 - 5.2 g/dL 07/08/2025 2:56 PM [facility] ALT (SGPT) 18 1 - 33 U/L 07/08/2025 2:56 PM T [facility] AST (SGOT) 17 1 - 32 U/L 07/08/2025 2:56 PM T [facility] Alkaline Phosphatase 101 39 - 117 U/L 07/08/2025 2:56 PM [facility] Total Bilirubin 0.2 0.0 - 1.2 mg/dL 07/08/2025 2:56 PM [facility] Globulin 3.5 gm/dL 07/08/2025 2:56 PM [facility] A/G Ratio 1.1 g/dL 07/08/2025 2:56 PM [facility] BUN/Creatinine Ratio 16.2 7.0 - 25.0 07/08/2025 2:56 PM [facility] Anion Gap 15.3(H) 5.0 - 15.0 mmol/L 07/08/2025 2:56 PM [facility] eGFR 88.3 >60.0 mL/min/1.7 3 07/08/2025 2:56 PM [facility] Blood Venipuncture / Unknown 07/08/2025 9:03 AM EDT 07/08/2025 9:03 AM T [facility] - 07/08/2025 2:56 PM EDT [...] include race as a factor SamuelAlba Silver LANGUAGE AND LITERATURE DIVISION CHAIR LAB BLOOD ORDERABLES F inal Result [facility]
[address] [place] [address], documented in this encounter Visit Diagnoses Diagnosis [...] documented as of this encounter Care Teams Economics Teacher Relationship Specialty Start Date End Date Reza Panchal MD [facility] [place] [address] PCP - General Family Medicine 09/30/24 documented as of this encounter
--- OUTSIDE RECORDS SUMMARY | 2025-06-13 10:00 | XMS_ITS | Encounter Summary ---
Author Organization [facility] Address [address] [place] [address] Care Team Providers Care Topology Teacher Name Role Phone Reza Panchal MD Primary Care Provider [phone] Reason for Visit * Reason Comments Infection due to 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 toxin-pr oducing Escherichia FOLLOW UP UTIs/LUTS/OAB Encounter Details Date Type Department Care Team (Late st Contact Info) Description 06/13/2025 10:00 AM EDT Office Visit [facility] UROLOGY [address] [place] [address] Sanam Saunders APRN [address] [facility] [address] [place] [address] Infection due to 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 toxin-producing Escherichia coli (E.coli) (Primary Dx); Lower urinary tract symptoms (LUTS) Social History Tobacco Use Types Packs/Day Years Used Date Smoking Tobacco: Never Passive Smoke Exposure: Past Smokeless Tobacco: Never Comments: smokes, for 45 years Alcohol Use Standard Drinks/Week Comments No 0 (1 standard drink = 0.6 oz pur e alcohol) [facility] Utilities Answer Date Recorded In the past 12 months has [employer] electric, gas, oil, or water company threatened [...] or training? Not on file Preferred Language Prydeinig 01/28/2025 PHQ-2 Answer Date Recorded Retired PHQ-9: [...] - - Weight 89.8 kg (198 lb) 06/13/2025 9:52 AM EDT Height 152.4 cm (5') 06/13/2025 9:52 AM EDT pt s tated Body Mass Index 38.67 06/13/2025 9:52 AM EDT documented in this encounter Patient Instructions * Attachments The following attachments cannot be sent through Care Everywhere. * Urinary Frequency Adult (Prydeinig) * Urinary Incontinence: What to Know (Prydeinig) * Overactive Bladder in Adults: What to Know (Prydeinig) documented in this encounter Progress Notes * Sanam Saunders APRN - 06/13/2025 10:00 AM EDT Images from the original note were not included. Chief Complaint Infection due to 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 toxin-producing Escherichia (FOLLOW UP UTIs/LUTS/OAB) Subjective Madison Castellanos presents to [facility] UROLOG[facility] for UTI/OAB/LUTS History of Present Illness History of Present Illness The patient is a pleasant 70-year-old female who returns to the clinic for a 4- week reevaluation Darlene. coli positive urine cultures/LUTS. She has an extensive medical history, including recent bouts of E. coli and sepsis requiring hospitalization. She also has borderline lower urinary tract symptoms and an overactive bladder, for which she has a neuromodulation device implant. She is doing significantly better with that, showing improvement in her prior symptoms. She was also started on Macrobid prophylaxis for her recurrent UTIs and today presents for re-evaluation.. She reports feeling slightly better. She is not experiencing any urine frequency, urgency or dysuria daily. Denies bladder pain, burning sensation, nausea, or vomiting. However, she continues to experience frequent urination at night-Nocturia, which sometimes disrupts her sleep. She also reports waking up with a wet bed in the morning. During the day, she uses approximately 2 pads, which are wet when changed. It has been over a month since her last consultation with the solar sales representative and assessor for her neuromodulation device. She has not experienced any recent fevers or chills and reports no side effects from her medications. She expresses a desire to adjust the position of her device. She is currently taking Macrobid once nightly without any issues.Urine dip today is negative for leuks/nitrite. Shows 1+microhematuria.bladder symptom score is 2221-severe Active Ambulatory Problems Diagnosis Date Noted Allergic bronchitis 05/20/2016 Allergic rhinitis 05/20/2016 Seropositive rheumatoid arthritis 05/20/2016 Chronic cough 05/20/2016 Chronic pain 05/20/2016 Essential hypertension 05/20/2016 GERD without esophagitis 05/20/2016 Hiatal hernia 05/20/2016 High risk medication use 05/20/2016 Hyperlipidemia 05/20/2016 Hypothyroidism 05/20/2016 Postmenopausal status 05/20/2016 Obesity 05/20/2016 Depression 05/27/2016 Hearing loss 05/27/2016 MVP (mitral valve prolapse) 10/12/2016 Palpitations 10/12/2016 Migraine 10/12/2016 Osteoarthritis 10/12/2016 Angina pectoris 05/03/2019 Diabetes mellitus type 2 in obese 05/13/2019 History of Araseli fundoplication 09/16/2019 Hypokalemia 12/13/2019 Hypomagnesemia 12/13/2019 Type 2 diabetes mellitus with retinopathy, without long-term current use of insulin 06/26/2020 Acute deep vein thrombosis (DVT) of left peroneal vein 06/29/2020 Pneumonia due to COVID-19 virus 10/27/2020 Acute UTI (urinary tract infection) 01/13/2021 Epistaxis 01/13/2021 Sepsis 01/13/2021 Background retinopathy due to secondary diabetes 02/11/2021 Shortness of breath 02/25/2022 Precordial pain 02/25/2022 Dizziness 02/25/2022 History of DVT (deep vein thrombosis) 02/25/2022 Acute chest pain 05/08/2022 Headache 05/09/2022 Acute neck pain 05/09/2022 Carpal tunnel syndrome 05/09/2022 Rheumatoid arthritis involving multiple sites with positive rheumatoid factor 05/09/2022 Acute pain of left shoulder 05/09/2022 Delayed gastric emptying -based on nuclear study 201609/07/2022 Upper respiratory tract infection 10/13/2022 Mild cognitive impairment 12/19/2022 DEVANG (obstructive sleep apnea)/suspected nocturnal hypoxemia.-by history. Intolerant of NIPPV in past. 05/18/2023 Numbness and tingling in both hands 11/12/2023 Chronic bilateral low back pain with bilateral sciatica 12/12/2023 Acute right-sided low back pain 12/12/2023 Hip pain, right 12/12/2023 Nausea vomiting and diarrhea 01/11/2024 Hypocalcemia 01/11/2024 Bradycardia 01/13/2024 Psoriasis 04/10/2024 Age-related osteoporosis without current pathological fracture 04/12/2024 Urge incontinence 10/31/2024 OAB (overactive bladder) 10/31/2024 Lower urinary tract symptoms (LUTS) 10/31/2024 Stress incontinence of urine 10/31/2024 NSAID long-term use 01/30/2025 Infection due to 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 toxin-producing Escherichia coli (E.coli) 05/14/2025 Yeast vaginitis 05/14/2025 Yeast dermatitis 05/14/2025 Perineal irritation in female 05/14/2025 Atrophic vaginitis 05/14/2025 Resolved Ambulatory Problems Diagnosis Date Noted Nausea 05/20/2016 Rash 05/20/2016 Sprain of left ankle 05/20/2016 Osteopenia 04/05/2017 Mild persistent asthma without complication - possible asthma (no history of obstructed PFTs). 07/11/2017 Acute bronchitis due to infection 12/13/2019 Acute asthma exacerbation 12/13/2019 Fever in adult 12/13/2019 Diarrhea 12/13/2019 DVT (deep venous thrombosis) 10/27/2020 Asthma 05/08/2022 Upper airway cough syndrome 05/18/2023 UTI (urinary tract infection) 01/11/2024 Past 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: Diagnosis Date Bursitis of left hip Coronary artery disease COVID-19 with pulmonary comorbidity Dementia 2021 Diabetes mellitus type 2 in obese 05/13/2019 Diverticulosis Foot pain Fungus infection GERD (gastroesophageal reflux disease) Goiter 1978 Hearing aid worn Heart attack 2009 History of transfusion Hypertension Nosebleed 01/12/2021 PONV (postoperative nausea and vomiting) Rheumatoid arthritis Shingles Sleep apnea Urinary incontinence Urinary tract infection Wears glasses Objective Vital Signs: Ht 152.4 cm (60 ) Comment: pt stated Wt 89.8 kg (198 lb) BMI 38.67 kg/m?? ROS: Review of Systems Genitourinary: Positive for dysuria, frequency, pelvic pain, pelvic pressure and urgency. Nocturia All other systems reviewed and are negative. Physical Exam Constitutional: General: She is not in acute distress. Appearance: She is well-developed. HENT: Head: Normocephalic and atraumatic. Eyes: Pupils: Pupils are equal, round, and reactive to light. Neck: Thyroid: No thyromegaly. Trachea: No tracheal deviation. Cardiovascular: Rate and Rhythm: Normal rate and regular rhythm. Heart sounds: No murmur heard. Pulmonary: Effort: Pulmonary effort is normal. No respiratory distress. Breath sounds: Normal breath sounds. No stridor. No wheezing. Abdominal: General: Bowel sounds are normal. Palpations: Abdomen is soft. Tenderness: There is no abdominal tenderness. Genitourinary: Labia: Right: No tenderness. Left: No tenderness. Vagina: Normal. No vaginal discharge. Musculoskeletal: General: No deformity. Normal range of motion. Cervical back: Normal range of motion. Skin: General: Skin is warm and dry. Coloration: Skin is not pale. Findings: No erythema or rash. Neurological: Mental Status: She is alert and oriented to person, place, and time. Cranial Nerves: No cranial nerve deficit. Sensory: No sensory deficit. Coordination: Coordination normal. Psychiatric: Behavior: Behavior normal. Thought Content: Thought content normal. Judgment: Judgment normal. Physical Exam General: Pleasant 70-year-old female, no signs of distress. Genitourinary: No bothersome urinary symptoms, urinalysis negative. Result Review : The following data was reviewed by: Sanam Saunders APRN on 06/13/2025: CMP 01/28/2025 12:14 02/20/2025 07:09 05/06/2025 12:01 CMP Glucose 105 150 BUN 20 17.0 Creatinine 0.82 0.85 EGFR 78.5 75.2 Sodium 136 141 Potassium 4.2 4.3 4.0 Chloride 101 101 Calcium 9.0 9.4 Total Protein 7.2 7.7 Albumin 4.0 4.0 Globulin 3.2 3.7 Total Bilirubin 0.3 0.3 Alkaline Phosphatase 89 98 AST (SGOT) 19 18 ALT (SGPT) 20 21 Albumin/Globulin Ratio 1.3 1.1 BUN/Creatinine Ratio 24.4 20.0 Anion Gap 11.0 12.7 CBC 01/28/2025 12:14 02/20/2025 07:09 05/06/2025 12:01 CBC WBC 7.25 7.15 6.88 RBC 4.50 4.33 4.42 Hemoglobin 13.4 12.9 13.5 Hematocrit 42.1 39.6 41.0 MCV 93.6 91.5 92.8 MCH 29.8 29.8 30.5 MCHC 31.8 32.6 32.9 RDW 13.2 13.2 13.1 Platelets 217 205 314 UA 05/14/2025 15:56 06/13/2025 10:07 Urinalysis Ketones, UA Negative Negative Leukocytes, UA Negative Negative Urine Culture 06/13/2025 09:55 Urine Culture Urine Culture No growth Bladder & Bowel Symptom Questionnaire How often do you usually urinate during the day ? 3 - About every 1-2 hours 2. How many timed do you urinate at night? 0 - 0-1 time at night 3. What is the reason [...] you with your symptoms? yes Total Score 21 0-7 (Mild) 8-16 (Moderate) 17-28 (Severe) RADIOLOGY (CT AND/OR KUB): CT Abdomen and Pelvis: No results found for this or any previous visit. CT Stone Protocol: No results found for this or any previous visit. KUB: No results found for this or any previous visit. Results Labs - Urinalysis: Completely negative LABS (3 MONTHS): Office Visit on 06/13/2025 Component Date Value Ref Range Status Color 06/13/2025 Yellow Yellow, Straw, Dark Yellow, Ann Final Clarity, UA 06/13/2025 Clear Clear Final Specific [place] 06/13/2025 1.010 1.005 - 1.030 Final pH, Urine 06/13/2025 7.5 5.0 - 8.0 Final Leukocytes 06/13/2025 Negative Negative Final Nitrite, UA 06/13/2025 Negative Negative Final Protein, POC 06/13/2025 Negative Negative mg/dL Final Glucose, UA 06/13/2025 Negative Negative mg/dL Final Ketones, UA 06/13/2025 Negative Negative Final Urobilinogen, UA 06/13/2025 Normal Normal, 0.2 E.U./dL Final Bilirubin 06/13/2025 Negative Negative Final Blood, UA 06/13/2025 Negative Negative Final Lot Number 06/13/2025 [id number] Final Expiration Date 06/13/2025 11/08/2026 Final Urine Culture 06/13/2025 No growth Final Office Visit on 05/14/2025 Component Date Value Ref Range Status Color 05/14/2025 Yellow Yellow, Straw, Dark Yellow, Ann Final Clarity, UA 05/14/2025 Slightly Cloudy (A) Clear Final Specific [place] 05/14/2025 1.015 1.005 - 1.030 Final pH, [...] 05/06/2025 2.680 0.270 - 4.200 uIU/mL Final Assessment and Plan Problem List Items Addressed This Visit Genitourinary and Reproductive Lower urinary tract symptoms (LUTS) Relevant Medications triamterene-hydrochlorothiazide (DYAZIDE) 37.5-25 MG per capsule Other Infection due to 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 toxin-producing Escherichia coli (E.coli) - Primary Relevant Orders POC Urinalysis Dipstick, Automated (Completed) Urine Culture - Urine, Urine, Clean Catch (Completed) Assessment & Plan Mrs Madison Castellanos is a pleasant 70-year-old female who returns to the clinic for a 4-week reevaluation of E. coli positive urine cultures/LUTS for which she has a neuromodulation device implant.She is doing significantly better with that, showing improvement in her prior symptoms. She was also started on Macrobid prophylaxis for her E'coli Recurrent UTIs and today presents for re-evaluation. 1. Recurrent urinary tract infections. Urinalysis is completely negative today, indicating that the infection has cleared up. No bothersome urinary symptoms such as burning or urgency are reported. She will continue her antibiotic suppressive therapy with Macrobid taken once nightly. If the upcoming culture results are negative, the dosage will be adjusted to every other night.The treatment goal is to prevent recurrent infections and monitor for any new symptoms. No side effects from the medication are reported. She is advised to contact the neuromodulation device solar sales representative and assessor for any device-related concerns. Follow-up She will follow up in 3 months, sooner if need be. Patient reports that she is not currently experiencing any symptoms of urinary incontinence. Smoking Cessation Counseling: Never a smoker. Patient does not currently use any tobacco products. Follow Up Return in about 18 days (around 07/01/2025) for Next scheduled follow up, LUTS/OAB WITH MIXED STRESS/URGE INCONTINEN-EVAl pne device. Patient was given instructions and counseling regarding her condition or for health maintenance advice. Please see specific information pulled into the AVS if appropriate. This document has been electronically signed by Sanam Saunders APRN June 17, 2025 23:00 EDT Dictated Utilizing Dragon Dictation: Part of this note may be an electronic slurry plant operator/translation of spoken language to printed text using the [id number] Dictation System. Patient or patient solar sales representative and assessor verbalized consent for the use of Ambient Listening during the visit with Sanam Saunders APRN for chart documentation. 06/17/2025 22:57 EDT documented in this encounter Plan of Treatment Upcoming Encounters Date Type Department Care Team (Late st Contact Info) Description 07/18/2025 12:00 PM EDT Office Visit [facility] PULMONARY & CRITICAL CARE MEDICINE [address] [facility] [address] [place] [address] 07/18/2025 12:30 PM EDT Office Visit [facility] PULMONARY & CRITICAL CARE MEDICINE [address] [facility] [address] [place] [address] Maxine Gibson, CLINICAL ACADEMIC ALLERGIST [address] [place] [address] 07/23/2025 10:00 AM EDT Infusion [facility] OUTPATIENT ONCOLOGY [place] [address] [facility] [address] [place] [id number] 09/02/2025 10:00 AM EST Office Visit [facility] UROLOGY [address] [facility] [address] [place] [address] Sanam Saudners APRN [address] [facility] [address] [place] [address] 09/24/2025 9:15 AM EST Office Visit [facility] RHEUMATOLOGY [address] [facility] [address] [place] [phone] John Sheppard APRN [address] [facility] [address] [place] [address] 02/03/2026 10:45 AM EDT Office Visit [facility] RHEUMATOLOGY [address] [place] [address] Patrice Santana, [address] [facility] [address] [place] [address] documented as of this encounter Goals Goal [...] Diagnosis Comments POCT URINALYSIS DIPSTICK, AUTOMATED Routine 06/13/2025 10:07 AM EDT Infection due to 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 toxin-producing Escherichia coli (E.coli) URINE CULTURE Routine 06/13/2025 9:55 AM EDT Infection due to 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 toxin-producing Escherichia coli (E.coli) documented in this encounter Results * POC Urinalysis Dipstick, Automated (06/13/2025 10:07 AM EDT) Color Yellow Yellow, Straw, Dark Yellow, Ann [facility] Clarity, UA Clear Clear [facility] Specific [place] 1.010 1.005 - 1.030 [facility] pH, Urine 7.5 5.0 - 8.0 [facility] Leukocytes Negative Negative [facility] Nitrite, UA Negative Negative [facility] Protein, POC Negative Negative mg/dL [facility] Glucose, UA Negative Negative mg/dL [facility] Ketones, UA Negative Negative [facility] Urobilinogen, UA Normal Normal, 0.2 E.U./dL [facility] Bilirubin Negative Negative [facility] Blood, UA Negative Negative [facility] Lot Number [id number] [facility] Expiration Date 11/08/2026 [facility] Urine 06/13/2025 10:0 7 AM EDT Sanam Saunders APRN POINT OF CARE TEST JENNY HELM Final Result [facility]
[address] [place] [address], * Urine Culture - Urine, Urine, Clean Catch (06/13/2025 9:55 AM EDT) Pathologist [facility] Urine Culture No growth DICK 06/15/2025 4:46 AM EDT [facility] Urine Urine specimen obtained by clean catch procedure / Unknown Collection / Unknown 06/13/2025 9:55 AM EDT 06/13/2025 9:55 AM EDT Sanam Saunders CLINICAL ACADEMIC ALLERGIST MICROBIOLOGY - GENERAL ORDERABLES Final Result [facility]
[address] [place] [address], documented in this encounter Visit Diagnoses Diagnosis Infection due to 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 toxin-producing Escherichia coli (E.coli)- Primary Lower urinary tract symptoms (LUTS) documented in this encounter Additional Health Concerns Infection Onset Date Last Indicated Resolved Time Hepatitis A 04/12/2024 04/12/2024 Assessment Noted Time PHQ-2 Depression Total Score: 1 05/20/20 24 11:00 AM EDT documented as of this encounter Care Teams Topology Teacher Relationship Specialty Start Date End Date Reza Panchal MD [address] [place] [address] PCP - General Family Medicine 09/30/24 documented as of this encounter
--- OUTSIDE RECORDS SUMMARY | 2025-07-08 09:05 | XMS_ITS | Encounter Summary ---
[facility] Address [address] [place] [address] Care Team Providers Care Mud Analysis Operator Name Role Phone Reza Panchal MD Primary Care Provider +1- [phone] Encounter Details Date Type Department Care Team (Late st Contact Info) Description 07/08/2025 9:05 AM EDT Lab [facility] [place] [address] [facility] [place] [address] Seropositive rheumatoid arthritis; High risk medication use; Fatigue, unspecified type Social History Tobacco Use Types Packs/Day Years Used Date Smoking Tobacco: Never Passive Smoke Exposure: Past Smokeless Tobacco: Never Comments: smokes, for 45 years Alcohol Use Standard Drinks/Week Comments No 0 (1 standard drink = 0.6 oz pur e alcohol) [facility] Utilities Answer Date Recorded In the past 12 months has [employer], gas, oil, or water [employer] threatened to shut off services in your [...] or training? Not on file Preferred Language Yoruba 01/28/2025 PHQ-2 Answer Date Recorded Retired PHQ-9: [...] Description 07/18/2025 12:00 PM EDT Office Visit [facility] PULMONARY & CRITICAL CARE MEDICINE 3000 [facility] 240 [place] [address] 07/18/2025 12:30 PM EDT Office Visit [facility] PULMONARY & CRITICAL CARE MEDICINE 3000 [facility] [address] [place] [address] Maxine Gibson, CASING MACHINE OPERATOR [address] [place] [address] 07/23/2025 10:00 AM EDT Infusion [facility] [place] 330 [facility] 110 [place] [phone] 09/02/2025 10:00 AM EST Office Visit [facility] UROLOGY 17[address] [facility] 502 [place] [address] Sanam Saunders, CASING MACHINE OPERATOR [address] [facility] [address] [place] [address] 09/24/2025 9:15 AM EST Office Visit [facility] RHEUMATOLOGY [address] [phone] John Sheppard, CASING MACHINE OPERATOR 330 [facility] 100 [place] [address] 02/03/2026 10:45 AM EDT Office Visit [facility] RHEUMATOLOGY [address] [facility] [address] [place] [phone] Patrice Santana DO [address] [address] documented as of this encounter Goals Goal [...] CBC Auto Differential (07/08/2025 9:03 AM EDT) [facility] WBC 7.14 3.40 - 10.80 10*3/mm3 07/08/2025 2:34 PM EDT [facility] RBC 3.74(L) 3.77 - 5.28 10*6/mm3 07/08/2025 2:34 PM EDT [facility] Hemoglobin 10.7(L) 12.0 - 15.9 g/dL 07/08/2025 2:34 PM EDT [facility] Hematocrit 34.2 34.0 - 46.6 % 07/08/2025 2:34 PM EDT [facility] MCV 91.4 79.0 - 97.0 fL 07/08/2025 2:34 PM EDT [facility] MCH 28.6 26.6 - 33.0 pg 07/08/2025 2:34 PM EDT [facility] MCHC 31.3(L) 31.5 - 35.7 g/dL 07/08/2025 2:34 PM EDT [facility] RDW 12.7 12.3 - 15.4 % 07/08/2025 2:34 PM EDT [facility] RDW-SD 42.3 37.0 - 54.0 fl 07/08/2025 2:34 PM EDT [facility] MPV 10.2 6.0 - 12.0 fL 07/08/2025 2:34 PM EDT [facility] Platelets 255 140 - 450 10*3/mm3 07/08/2025 2:34 PM EDT [facility] Neutrophil % 49.5 42.7 - 76.0 % 07/08/2025 2:34 PM T [facility] Lymphocyte % 31.8 19.6 - 45.3 % 07/08/2025 2:34 PM [facility] Monocyte % 14.6(H) 5.0 - 12.0 % 07/08/2025 2:34 PM [facility] Eosinophil % 3.1 0.3 - 6.2 % 07/08/2025 2:34 PM [facility] Basophil % 0.4 0.0 - 1.5 % 07/08/2025 2:34 PM [facility] Immature Grans % 0.6(H) 0.0 - 0.5 % 07/08/2025 2:34 PM [facility] Neutrophils, Absolute 3.54 1.70 - 7.00 10*3/mm3 07/08/2025 2:34 PM [facility] Lymphocytes, Absolute 2.27 0.70 - 3.10 10*3/mm3 07/08/2025 2:34 PM [facility] Monocytes, Absolute 1.04(H) 0.10 - 0.90 10*3/mm3 07/08/2025 2:34 PM [facility] Eosinophils, Absolute 0.22 0.00 - 0.40 10*3/mm3 07/08/2025 2:34 PM [facility] Basophils, Absolute 0.03 0.00 - 0.20 10*3/mm3 07/08/2025 2:34 PM [facility] Immature Grans, Absolute 0.04 0.00 - 0.05 10*3/mm3 07/08/2025 2:34 PM [facility] nRBC 0.0 0.0 - 0.2 /100 WBC 07/08/2025 2:34 PM [facility] Blood Venipuncture / Unknown 07/08/2025 9:03 AM EDT 07/08/2025 9:03 AM EDT John Sheppard CASING MACHINE OPERATOR LAB BLOOD ORDERABLES F inal Result Performing Organization Address City/[facility]/ZIP Co de Phone Number [facility]
[address] [place] [address], * Hepatitis Panel, Acute (07/08/2025 9:03 AM EDT) Hepatitis B Surface Ag Non-Reacti ve Non-Reacti ve 07/08/2025 3:12 PM EDT [facility] Hep A IgM Non-Reacti ve Non-Reacti ve 07/08/2025 3:12 PM EDT [facility] Hep B C IgM Non-Reacti ve Non-Reacti ve 07/08/2025 3:12 PM EDT [facility] Hepatitis C Ab Non-Reacti ve Non-Reacti ve 07/08/2025 3:12 PM EDT [facility] Blood Venipuncture / Unknown 07/08/2025 9:03 AM EDT 07/08/2025 9:03 AM EDT Narrative [facility] - 07/08/2025 3:12 PM EDT Results may be falsely decreased if patient taking Biotin. John Sheppard APRN LAB BLOOD ORDERABLES F inal Result Performing Organization Address City/[facility]/ZIP Co de Phone Number [facility]
[address] [place] [address], * Sedimentation Rate (07/08/2025 9:03 AM EDT) Sed Rate 28 0 - 30 mm/hr 07/08/2025 2:36 PM EDT [facility] Blood Venipuncture / Unknown 07/08/2025 9:03 AM EDT 07/08/2025 9:03 AM EDT John Sheppard CASING MACHINE OPERATOR LAB BLOOD ORDERABLES F inal Result Performing Organization Address City/[facility]/ZIP Co de Phone Number [facility]
[address] [place] [address], * C-reactive Protein (07/08/2025 9:03 AM EDT) C-Reactive Protein 0.30 0.00 - 0.50 mg/dL 07/08/2025 2:56 PM EDT [facility] Blood Venipuncture / Unknown 07/08/2025 9:03 AM EDT 07/08/2025 9:03 AM EDT John Sheppard APRN LAB BLOOD ORDERABLES F inal Result Performing Organization Address [facility] Co de Phone Number [facility]
[address] [place] [address], * (ABNORMAL) Comprehensive Metabolic Panel (07/08/2025 9:03 AM EDT) Glucose 194(H) 65 - 99 mg/dL 07/08/2025 2:56 PM EDT [facility] BUN 12.0 8.0 - 23.0 mg/dL 07/08/2025 2:56 PM EDT [facility] Creatinine 0.74 0.57 - 1.00 mg/dL 07/08/2025 2:56 PM EDT [facility] Sodium 138 136 - 145 mmol/L 07/08/2025 2:56 PM EDT [facility] Potassium 4.0 3.5 - 5.2 mmol/L 07/08/2025 2:56 PM EDT [facility] Chloride 100 98 - 107 mmol/L 07/08/2025 2:56 PM EDT [facility] CO2 22.7 22.0 - 29.0 mmol/L 07/08/2025 2:56 PM EDT [facility] Calcium 9.1 8.6 - 10.5 mg/dL 07/08/2025 2:56 PM EDT [facility] Total Protein 7.4 6.0 - 8.5 g/dL 07/08/2025 2:56 PM T [facility] Albumin 3.9 3.5 - 5.2 g/dL 07/08/2025 2:56 PM [facility] ALT (SGPT) 18 1 - 33 U/L 07/08/2025 2:56 PM T [facility] AST (SGOT) 17 1 - 32 U/L 07/08/2025 2:56 PM T [facility] Alkaline Phosphatase 101 39 - 117 U/L 07/08/2025 2:56 PM T [facility] Total Bilirubin 0.2 0.0 - 1.2 mg/dL 07/08/2025 2:56 PM [facility] Globulin 3.5 gm/dL 07/08/2025 2:56 PM [facility] A/G Ratio 1.1 g/dL 07/08/2025 2:56 PM [facility] BUN/Creatinine Ratio 16.2 7.0 - 25.0 07/08/2025 2:56 PM [facility] Anion Gap 15.3(H) 5.0 - 15.0 mmol/L 07/08/2025 2:56 PM [facility] eGFR 88.3 >60.0 mL/min/1.7 3 07/08/2025 2:56 PM [facility] Blood Venipuncture / Unknown 07/08/2025 9:03 AM EDT 07/08/2025 9:03 AM T [facility] - 07/08/2025 2:56 PM EDT GFR [...] race as a factor us Rosye Silver CASING MACHINE OPERATOR LAB BLOOD ORDERABLES F inal Result [facility]
[address] [place] [address], documented in this encounter Visit Diagnoses Diagnosis Seropositive rheumatoid arthritis High risk medication use Fatigue, unspecified type documented in this encounter Additional Health Concerns Infection Onset Date Last Indicated Resolved Time Hepatitis A 04/12/2024 04/12/2024 Assessment Noted Time PHQ-2 Depression Total Score: 1 05/20/20 24 11:00 AM EDT documented as of this encounter Care Teams Mud Analysis Operator Relationship Specialty Start Date End Date Reza Panchal MD [address] [place] [address] PCP - General Family Medicine 09/30/24 documented as of this encounter
--- OUTSIDE RECORDS SUMMARY | 2025-07-09 09:00 | XMS_ITS | Encounter Summary ---
[facility] Address [address] [place] [address] Care Team Providers Care Chain Mender Name Role Phone Reza Panchal MD Primary Care Provider +1- [phone] Reason for Visit * Infusion (Routine) - Closed Specialty Diagnoses / Procedures Referred By Tia holman Referred To Contact Oncology Diagnoses Age-related osteoporosis without current pathological fracture Procedures [place] OFFICE/OUTPATIENT NEW MODERATE MDM 45 MINUTES John Sheppard APRN [address] [place] [address] Phone: tel: fax: [facility] OUTPATIENT ONCOLOGY [place] [address] [place] [address] Phone: tel: fax: Referral ID Status Reason Start Date Expiration Date V isits Requested Visits Authorized [id number] Closed Specialty Services Required 06/05/2025 09/04/2026 1 1 Encounter Details Date Type Department Care Team (Late st Contact Info) Description 07/09/2025 9:00 AM EDT Infusion [facility] OUTPATIENT ONCOLOGY [place] [address] [place] [address] Age-related osteoporosis without current pathological [...] Description 07/18/2025 12:00 PM EDT Office Visit [facility] PULMONARY & CRITICAL CARE MEDICINE 3000 [facility] [address] [place] [address] 07/18/2025 12:30 PM EDT Office Visit [facility] PULMONARY & CRITICAL CARE MEDICINE [address] [facility] [address] [place] [address] Maxine Gibson, DETECTIVE CAPTAIN [address] [place] [address] 07/23/2025 10:00 AM EDT Infusion [facility] OUTPATIENT ONCOLOGY [place] 330 [facility] 110 [place] [address] 09/02/2025 10:00 AM EST Office Visit [facility] UROLOGY 1760 [facility] 502 [place] [address] Sanam Saunders, DETECTIVE CAPTAIN 1760 [facility] [address] [place], [place] [address] 09/24/2025 9:15 AM EST Office Visit [facility] RHEUMATOLOGY 330 [facility] 100 [place] [address] John Sheppard, DETECTIVE CAPTAIN 330 [facility] 100 [place], [place] [address] 02/03/2026 10:45 AM EDT Office Visit [facility] RHEUMATOLOGY 330 [facility] 100 [place] [address] Patrice Santana, 330 [facility] 100 [place] [address] documented as of this encounter Goals Goal [...] at 1030, For 1 dose, Group 2 ([place]) Hazardous Drug - Reproductive Risk Only - See Handling GuideIndications:Age-related osteoporosis without current pathological fracture New Bag 07/09/2025 10:03 AM EDT 5 mg 400 mL/hr documented in this encounter Additional Health Concerns Infection Onset Date Last Indicated Resolved Time Hepatitis A 04/12/2024 04/12/2024 Assessment Noted Time PHQ-2 Depression Total Score: 1 05/20/20 24 11:00 AM EDT documented as of this encounter Care Teams Chain Mender Relationship Specialty Start Date End Date Reza Panchal MD [facility] [place] [address] PCP - General Family Medicine 09/30/24 documented as of this encounter
[2025-07-16] VITALS (8 sets, daily range): BP systolic 130–212; BP diastolic 61–113; PULSE 81–101; RESP 16–24; TEMP 36.6–37; O2SAT 96–99; BMI 39.2
--- OUTSIDE RECORDS SUMMARY | 2025-07-16 21:01 | XMS_ITS | Encounter Summary ---
[facility] Organization [facility] Address [address] [place] [address] Care Team Providers Care Representative Name Role Phone Reza Panchal MD Primary Care Provider +1- [phone] Encounter Details Date Type Department Care Team (Late st Contact Info) Description 07/08/2025 Results Follow-Up [facility] [place] 3000 [facility] 140 [place] [address] John Sheppard APRN 330 [facility] [address] [place], [place] [id number] Social History Tobacco Use Types Packs/Day Years Used Date Smoking Tobacco: Never Passive Smoke Exposure: Past Smokeless Tobacco: Never Comments: smokes, for 45 years Alcohol Use Standard Drinks/Week Comments No 0 (1 standard drink = 0.6 oz pur e alcohol) [facility] Utilities Answer Date Recorded In the past 12 months has [employer] electric, gas, oil, or water company threatened [...] or training? Not on file Preferred Language Tristanian 01/28/2025 PHQ-2 Answer Date Recorded Retired PHQ-9: [...] Description 07/18/2025 12:00 PM EDT Office Visit [facility] PULMONARY & CRITICAL CARE MEDICINE 3000 [facility] [address] [place] [address] 07/18/2025 12:30 PM EDT Office Visit [facility] PULMONARY & CRITICAL CARE MEDICINE 3000 [facility] [address] [place] [address] Maxine Gibson, TRENCHER DRIVER [address] [place] [address] 07/23/2025 10:00 AM EDT Infusion [facility] OUTPATIENT ONCOLOGY [place] 330 [facility] 110 [place] [address] 09/02/2025 10:00 AM EST Office Visit [facility] UROLOGY 1760 [facility] 502 [place] [address] Sanam Saunders, TRENCHER DRIVER 1760 [facility] [address] [place] [address] 09/24/2025 9:15 AM EST Office Visit [facility] RHEUMATOLOGY [address] [place] [address] John Sheppard, TRENCHER DRIVER [address] [facility] 100 [place] [address] 02/03/2026 10:45 AM EDT Office Visit [facility] RHEUMATOLOGY [address] [place] [address] Patrice Santana, DO [address] [place] [address] documented as of this encounter Goals Goal [...] documented as of this encounter Care Teams Representative Relationship Specialty Start Date End Date Reza Panchal MD [facility] [place] [address] PCP - General Family Medicine 09/30/24 documented as of this encounter
--- OUTSIDE RECORDS SUMMARY | 2025-07-16 21:01 | XMS_ITS | Encounter Summary ---
Author Organization [facility] Address [address] [place] [address] Care Team Providers Care Political Organizer Name Role Phone Reza Panchal MD Primary Care Provider +1- [phone] Encounter Details Date Type Department Care Team (Latest Contact Info) Description 07/08/2025 Travel Social History Tobacco Use Types Packs/Day [...] 3000 [facility] [address] [place] [address] 07/18/2025 12:30 PM EDT Office Visit [facility] PULMONARY & CRITICAL CARE MEDICINE 3000 [facility] [address] [place] [address] Maxine Gibson, ARTIST'S MANAGER [address] [place] [address] 07/23/2025 10:00 AM EDT Infusion OUTPATIENT ONCOLOGY [place] [address] [place] [address] 09/02/2025 10:00 AM EST Office Visit [facility] UROLOGY 1760 [facility] [address] [place] [address] Sanam Saunders, ARTIST'S MANAGER 1760 [facility] [address] [place] [address] 09/24/2025 9:15 AM EST Office Visit [facility] RHEUMATOLOGY [address] [place] [address] John Sheppard APRN [address] [facility] 100 [place] [address] 02/03/2026 10:45 AM EDT Office Visit [facility] RHEUMATOLOGY [address] [place] [address] Patrice Santana DO [address] [facility] 100 [place], [place] [address] documented as of this encounter Goals Goal [...] documented as of this encounter Care Teams Political Organizer Relationship Specialty Start Date End Date Reza Panchal MD [address] [place] [address] PCP - General Family Medicine 09/30/24 documented as of this encounter
--- OUTSIDE RECORDS SUMMARY | 2025-07-16 21:01 | XMS_ITS | Encounter Summary ---
[facility] Address [address] [place] [address] Care Team Providers Care Solar Manager Name Role Phone Reza Panchal MD Primary Care Provider +1- [phone] Encounter Details Date Type Department Care Team (Late st Contact Info) Description 05/14/2025 Telephone [facility] UROLOGY [address] [place] [address] Sanam Saunders APRN 1760 [facility] [address] [place] [address] Social History Tobacco Use Types Packs/Day Years Used Date Smoking Tobacco: Never Passive Smoke Exposure: Past Smokeless Tobacco: Never Comments: smokes, for 45 years Alcohol Use Standard Drinks/Week Comments No 0 (1 standard drink = 0.6 oz pur e alcohol) [facility] Utilities Answer Date Recorded In the past 12 months has [employer] electric, gas, oil, or water company threatened [...] VERBAL ON FILE Best call back number: [phone] Patient is needing: PT CALLED REQUESTING A LATER APPT TODAY OR FOR ANOTHER DAY THIS WEEK. PLEASE CALL TO ADVISE. THANKS. documented in this encounter Plan of Treatment Upcoming Encounters Date Type Department Care Team (Late st Contact Info) Description 07/18/2025 12:00 PM EDT Office Visit [facility] PULMONARY & CRITICAL CARE MEDICINE 3000 [facility] 240 [place] [address] 07/18/2025 12:30 PM EDT Office Visit [facility] PULMONARY & CRITICAL CARE MEDICINE 3000 [facility] 240 [place] [address] Maxine Gibson, SHOT EXAMINER [address]00 [place] [address] 07/23/2025 10:00 AM EDT Infusion [facility] OUTPATIENT ONCOLOGY [place] [address] [place] [address] 09/02/2025 10:00 AM EST Office Visit [facility] UROLOGY 1760 [facility] [address] [place] [address] Sanam Saunders, SHOT EXAMINER 1760 [facility] [address] [place] [address] 09/24/2025 9:15 AM EST Office Visit [facility] RHEUMATOLOGY [address] [address] John Sheppard APRN [address] [phone] 02/03/2026 10:45 AM EDT Office Visit [facility] RHEUMATOLOGY [address] [address] Patrice Santana DO [address] [address] documented as of this encounter [...] documented as of this encounter Care Teams Solar Manager Relationship Specialty Start Date End Date Reza Panchal MD [address] [place] [address] PCP - General Family Medicine 09/30/24 documented as of this encounter
--- OUTSIDE RECORDS SUMMARY | 2025-07-16 21:01 | XMS_ITS | Encounter Summary ---
[facility] Address [address] [place] [address] Care Team Providers Care Ceramics Instructor Name Role Phone Reza Panchal MD Primary Care Provider +1- [phone] Encounter Details Date Type Department Care Team (Late st Contact Info) Description 07/08/2025 Results Follow-Up [facility] RHEUMATOLOGY [address] [address] John Sheppard APRN [address] [address] Social History Tobacco Use Types Packs/Day Years Used Date Smoking Tobacco: Never Passive Smoke Exposure: Past Smokeless Tobacco: Never Comments: smokes, for 45 years Alcohol Use Standard Drinks/Week Comments No 0 (1 standard drink = 0.6 oz pur e alcohol) [facility] Utilities Answer Date Recorded In the past 12 months has [employer] electric, gas, oil, or water company threatened [...] 3000 [facility] [address] [place] [address] 07/18/2025 12:30 PM EDT Office Visit [facility] PULMONARY & CRITICAL CARE MEDICINE 3000 [facility] [address] [place] [address] Maxine Gibson, BOX SHOOK PATCHER [address]00 [place] [address] 07/23/2025 10:00 AM EDT Infusion [facility] OUTPATIENT ONCOLOGY [place] 330 [facility] 110 [place] [address] 09/02/2025 10:00 AM EST Office Visit [facility] UROLOGY 1760 [facility] 502 [place] [address] Sanam Saunders, BOX SHOOK PATCHER 1760 [facility] 502 [place] [address] 09/24/2025 9:15 AM EST Office Visit [facility] RHEUMATOLOGY [address] [place] [address] John Sheppard, BOX SHOOK PATCHER [address] [facility] 100 [place] [address] 02/03/2026 10:45 AM EDT Office Visit [facility] RHEUMATOLOGY [address] [place] [address] Patrice Santana DO [address] [address] documented as of this encounter Goals Goal [...] documented as of this encounter Care Teams Ceramics Instructor Relationship Specialty Start Date End Date Reza Panchal MD [address] [place] [address] PCP - General Family Medicine 09/30/24 documented as of this encounter
--- OUTSIDE RECORDS SUMMARY | 2025-07-16 21:01 | XMS_ITS | Encounter Summary ---
[facility] Address [address] [place] [address] Care Team Providers Care Printing Sign Machine Operator Name Role Phone Reza Panchal MD Primary Care Provider +1- [phone] Reason for Visit * Reason Onset Date Comments VOQUENZA 10 MG PA REQUEST 05/13/2025 APPROVAL 05/13/2025 Encounter Details Date Type Department Care Team (Latest Contact Info) Description 05/13/2025 Prior Authorization [facility] GASTROENTEROLOGY [address] [place] [address] Khadar Julien RMA VOQUENZA 10 MG PA REQUEST; APPROVAL Social History Tobacco Use Types Packs/Day Years Used Date Smoking Tobacco: Never Passive Smoke Exposure: Past Smokeless Tobacco: Never Comments: smokes, for 45 years Alcohol Use Standard Drinks/Week Comments No 0 (1 standard drink = 0.6 oz pur e alcohol) [facility] Utilities Answer Date Recorded In the past 12 months has [employer] electric, gas, oil, or water company [...] CALLED [facility] AND SPOKE WITH PHARMACIST. PA CUMMINGS NUMBER GIVEN. PHARMACIST STATED HE WILL UPDATE THE CLAIM AND GIVE PATIENT A CALL. * Telephone Encounter - Khadar Julien RMA - 05/14/2025 11:37 AM EDT I SPOKE WITH DANIEL. INFORMED HER THAT BHARAT GUSMAN HAS BEEN APPROVED. SHE WILL CALL [facility]. * Telephone Encounter - Khadar Julien RMA - 05/14/2025 11:35 AM EDT Outcome Approved on May 13 by Jenni [facility] 2017 Your request has been approved Effective [...] Approved today by [facility] 2017 Your request has been approved Effective Date: 10/16/2024 Authorization Expiration Date: 10/15/2025 * Telephone Encounter - Khadar Julien RMA - 05/13/2025 2:04 PM EDT ([place]: [id number]) PA Need Help? Call us at Status sent iconSent to Plan today Drug Voquezna 10MG tablets ePA cloud logo Form Jenni Electronic PA Form (2016 [employer]) documented in this encounter Plan of Treatment Upcoming Encounters Date Type Department Care Team (Late st Contact Info) Description 07/18/2025 12:00 PM EDT Office Visit [facility] PULMONARY & CRITICAL CARE MEDICINE 3000 [facility] 240 [place] [address] 07/18/2025 12:30 PM EDT Office Visit [facility] PULMONARY & CRITICAL CARE MEDICINE 3000 [facility] 240 [place] [address] Maxine Gibson, MILLINERY BLOCKER [address] [place] [address] 07/23/2025 10:00 AM EDT Infusion [facility] OUTPATIENT ONCOLOGY [place] [address] [place] [address] 09/02/2025 10:00 AM EST Office Visit [facility] UROLOGY 1760 [facility] [address] [place], [place] [id number] Sanam Saunders, MILLINERY BLOCKER 1760 [facility] [address] [place], [place] [address] 09/24/2025 9:15 AM EST Office Visit [facility] RHEUMATOLOGY [address] [place] [address] John Sheppard MILLINERY BLOCKER 330 [facility] 100 [place] [address] 02/03/2026 10:45 AM EDT Office Visit [facility]ATOLOGY 330 [facility] [address] [address] Patrice Santana DO [address] [phone] documented as of this encounter Goals Goal [...] documented as of this encounter Care Teams Printing Sign Machine Operator Relationship Specialty Start Date End Date Reza Panchal MD [facility] [place] [address] PCP - General Family Medicine 09/30/24 documented as of this encounter
--- OUTSIDE RECORDS SUMMARY | 2025-07-16 21:01 | XMS_ITS | Encounter Summary ---
[facility] Address [address] [place] [id number] Care Team Providers Care Pipeline Controller Name Role Phone Reza Panchal MD Primary Care Provider [phone]- [phone] Encounter Details Date Type Department Care Team (Late st Contact Info) Description 05/16/2025 Results Follow-Up [facility] UROLOGY [address] [facility] [address] [place] [address] Sanam Saunders APRN [address] [place] [address] Social History Tobacco Use Types Packs/Day Years Used Date Smoking Tobacco: Never Passive Smoke Exposure: Past Smokeless Tobacco: Never Comments: smokes, for 45 years Alcohol Use Standard Drinks/Week Comments No 0 (1 standard drink = 0.6 oz pur e alcohol) [facility] Utilities Answer Date Recorded In the past 12 months has [employer] electric, gas, oil, or water company threatened [...] Description 07/18/2025 12:00 PM EDT Office Visit [facility] PULMONARY & CRITICAL CARE MEDICINE [address] [facility] [address] [place] [id number] 07/18/2025 12:30 PM EDT Office Visit [facility] PULMONARY & CRITICAL CARE MEDICINE [address] [facility] [address] [place] [address] Maxine Gibson, RN IMMUNOLOGY [address] [place] [address] 07/23/2025 10:00 AM EDT Infusion [facility] OUTPATIENT ONCOLOGY [place] [address] [facility] [address] [place] [id number] 09/02/2025 10:00 AM EST Office Visit [facility] UROLOGY [address] [facility] [address] [place] [address] Sanam Saunders, RN IMMUNOLOGY [address] [facility] [address] [place] [address] 09/24/2025 9:15 AM EST Office Visit [facility] RHEUMATOLOGY [address] [place] [phone] John Sheppard, RN IMMUNOLOGY [address] [facility] [address] [place] [address] 02/03/2026 10:45 AM EDT Office Visit [facility] RHEUMATOLOGY [address] [place] [address] Patrice Santana, Dillon BOTELLO [facility] [address] [place] [address] documented as of this encounter Goals Goal [...] documented as of this encounter Care Teams Pipeline Controller Relationship Specialty Start Date End Date Reza Panchal MD [address] [address] PCP - General Family Medicine 09/30/24 documented as of this encounter
--- NOTE | 2025-07-16 21:02 | HMH.EDGENADL ---
Discharge Plan Disposition Patient Disposition: Home, Self-Care Condition: Good Prescriptions Prescriptions: New levofloxacin 750 mg tablet 750 mg PO DAILY 7 Days Qty: 7 0RF No Action nitroglycerin 0.4 mg tablet, sublingual 0.4 mg sublingual Q5-15M PRN (Reason: Chest Pain) Rx Instructions: do not exceed 3 doses per episode cholecalciferol (vitamin D3) 125 mcg (5,000 unit) capsule 125 mcg PO DAILY mecobalamin (vitamin B12) 500 mcg tablet,chewable 500 mcg PO DAILY fluticasone propion-salmeterol 100-50 mcg/dose blister with device 1 ea inhalation BID Patient Comments: INHALE 1 PUFF BY MOUTH TWICE DAILY nystatin 100,000 unit/gram powder 1 applic topical TID estradiol 0.01 % (0.1 mg/gram) cream 1 appful vaginal DIRECTED Rx Instructions: TWICE WEEKLY potassium chloride 10 mEq tablet,ER particles/crystals 10 meq PO DAILY Qty: 90 3RF levothyroxine 75 mcg tablet 75 mcg PO DAILY Qty: 90 3RF memantine 10 mg tablet 10 mg PO DAILY Qty: 90 3RF mirtazapine 15 mg tablet 15 mg PO HS Qty: 90 3RF montelukast 10 mg tablet 10 mg PO DAILY Qty: 90 3RF zoledronic [id number] [Reclast] 5 mg/100 mL piggyback IV metoprolol succinate 50 mg tablet extended release 24 hr 50 mg PO QHS Qty: 90 3RF diltiazem HCl [Cartia XT] 120 mg capsule,extended release 24hr 120 mg PO DAILY Qty: 30 2RF (DME) Diabetic Shoes (DME) Misc See Rx Instructions .ROUTE .MEDSUPPLY Qty: 1 0RF Rx Instructions: [facility] Please dispense one (1) pair of Diabetic shoes with inserts albuterol sulfate 90 mcg/actuation HFA aerosol inhaler inhalation Patient Comments: INHALE 2 PUFFS BY MOUTH EVERY 4 HOURS NEEDED FOR WHEEZING OR SHORTNESS OF BREATH prasugrel HCl [Effient] 10 mg tablet 10 mg PO DAILY 30 Days Qty: 30 6RF triamterene-hydrochlorothiazid 37.5-25 mg capsule 1 cap PO DAILY Qty: 30 5RF atorvastatin 20 mg tablet 20 mg PO HS Qty: 90 3RF sulfamethoxazole-trimethoprim [Bactrim DS] 800-160 mg tablet 1 tab PO Q12H 5 Days Qty: 10 0RF sucralfate 1 gram tablet 1 g PO QID 30 Days Qty: 120 3RF gabapentin 300 mg capsule 300 mg PO TID Qty: 90 3RF fluticasone propionate 50 mcg/actuation spray,suspension 2 spray INTRANASAL DAILY magnesium oxide 500 mg magnesium tablet 500 mg PO DAILY nitrofurantoin monohyd/m-cryst [Macrobid] 100 mg capsule 100 mg PO HS Rx Instructions: must administer with a meal/food omeprazole 40 mg capsule,delayed release(DR/EC) 40 mg PO DAILY Qty: 30 1RF Referrals Follow up/Referrals: Reza Panchal MD [Primary Care Provider, Family Practice] - See instructions Activity Restrictions/Add. Instructions Additional Instructions/Restrictions: Taking the Bactrim that you were prescribed for your urinary tract infection and start taking the levofloxacin that I have prescribed both will treat your atypical pneumonia as well as for possible kidney infection. Return to the emergency department for development of fevers, inability to tolerate oral intake or if you have any other acute concerns. Clinical Impressions Clinical Impression: Acute pyelonephritis, Atypical pneumonia Instructions Patient Instructions: DI for Acute Abdominal Pain Print Language Print Language: Syriac Discharge ED Provider: Randi De Leon General Adult HPI General Chief complaint: Abdominal Pain Stated complaint: back pain,abdominal pain Time Seen by Provider: 07/16/25 21:02 Mode of Arrival: Wheelchair Source of Information: Patient Description of Symptoms (Recalled from ER Triage Doc. by RN): Pt presents with c/o left lower back pain that radaites into her LLQ with pressure in her chest that began a couple days ago with worsening today. Pt reports to seeing PCP today and being told I have sugar and blood in my urine Pt reports tachycardia at home with recent heart cath per Silas and being told I have a lot of pressure around my heart and a blockage thats not big enough to do anything with History of Present Illness HPI narrative: Patient is a 70-year-old female with multiple medical problems including 3 abdominal hernia repairs, coronary artery disease, COPD, diabetes, high blood pressure who presented to the emergency department with left flank pain. Patient states that her pain starts on the left flank and radiates into the center of her abdomen. Denies fevers, chills, body aches. Patient denies any upper respiratory symptoms. Does report some chest pain as well but no new shortness of breath. Patient denies any vomiting or diarrhea. Patient states that no one has been sick around her. Patient states that she feels more bloated than normal but has had normal bowel movements. Patient states that she recently had a heart cath that showed no large vessel blockages. Related Data Home Medications ?Medication ?Instructions ?Recorded ?Confirmed fluticasone propionate 50 2 spray intranasal DAILY 09/16/24 07/16/25 mcg/actuation nasal spray,suspension magnesium oxide 500 mg PO DAILY 12/16/24 07/16/25 cholecalciferol (vitamin D3) 125 125 mcg PO DAILY 01/13/25 07/16/25 mcg (5,000 unit) capsule mecobalamin (vitamin B12) 500 mcg 500 mcg PO DAILY 01/13/25 07/16/25 chewable tablet nitroglycerin 0.4 mg sublingual 0.4 mg sublingual Q5-15M PRN Chest 01/13/25 07/16/25 tablet Pain fluticasone 100 mcg-salmeterol 50 1 ea inhalation BID 01/20/25 07/16/25 mcg/dose blistr powdr for inhalation estradiol 0.01% (0.1 mg/gram) 1 appful vaginal DIRECTED 05/19/25 07/16/25 vaginal cream nystatin 100,000 unit/gram topical 1 applic topical TID 05/19/25 07/16/25 powder nitrofurantoin 100 mg PO HS 05/25/25 07/16/25 monohydrate/macrocrystals 100 mg capsule (Macrobid) albuterol sulfate 90 mcg/actuation inhalation 05/29/25 07/16/25 aerosol inhaler zoledronic acid 5 mg/100 mL in ea IV Osteoporosis 07/10/25 07/16/25 mannitol 5 %-water intravenous piggybck (Reclast) Previous Rx's ?Medication ?Instructions ?Recorded levothyroxine 75 mcg tablet 75 mcg PO DAILY #90 tabs 05/19/25 memantine 10 mg tablet 10 mg PO DAILY #90 tabs 05/19/25 mirtazapine 15 mg tablet 15 mg PO HS #90 tabs 05/19/25 montelukast 10 mg tablet 10 mg PO DAILY #90 tabs 05/19/25 potassium chloride 10 mEq 10 meq PO DAILY #90 tabs 05/19/25 tablet,extended release(part/cryst) Diabetic Shoes (DME) #1 ea 05/20/25 omeprazole 40 mg capsule,delayed 40 mg PO DAILY #30 caps 05/27/25 release sucralfate 1 gram tablet 1 g PO QID 30 days #120 tabs 06/18/25 atorvastatin 20 mg tablet 20 mg PO HS #90 tabs 06/19/25 prasugrel HCl 10 mg tablet 10 mg PO DAILY 30 days #30 tabs 06/19/25 (Effient) triamterene 37.5 1 cap PO DAILY #30 caps 06/19/25 mg-hydrochlorothiazide 25 mg capsule gabapentin 300 mg capsule 300 mg PO TID #90 caps 07/04/25 diltiazem HCl 120 mg 120 mg PO DAILY #30 caps 07/10/25 capsule,extended release 24 hr (Cartia XT) metoprolol succinate 50 mg 50 mg PO QHS #90 tabs 07/10/25 tablet,extended release 24 hr sulfamethoxazole 800 1 tab PO Q12H 5 days #10 tabs 07/16/25 mg-trimethoprim 160 mg tablet (Bactrim DS) levofloxacin 750 mg tablet 750 mg PO DAILY 7 days #7 tabs 07/17/25 Allergies Allergy/AdvReac Type Severity Reaction Status Date / Time hydrocodone Allergy Mild Unknown Verified 07/16/25 13:39 allergy reaction acetaminophen (From Allergy Unknown Verified 07/16/25 13:39 Tylenol-Codeine #3) allergy reaction metformin Allergy Unknown Verified 07/16/25 13:39 allergy reaction codeine AdvReac Mild Unknown Verified 07/16/25 13:39 allergy reaction morphine AdvReac Gastrointestinal Verified 07/16/25 13:39 Upset protamine AdvReac Difficulty Verified 07/16/25 13:39 Breathing PFSH PFSH Disclaimer: The information contained in this section may have been updated after the patient was seen, as this information can be updated by other users. 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 Edema Chest pain Hypomagnesemia Sepsis GI bleeding Pneumonia involving right lung Gout attack Bacteremia Headache Lower respiratory infection (e.g., bronchitis, pneumonia, pneumonitis, pulmonitis) Atypical pneumonia Headache, temporal Frontal headache Dyspnea Sinusitis, acute Nausea & vomiting Diarrhea Fever Sepsis Back pain Screening for osteoporosis Bacteremia due to Klebsiella pneumoniae UTI (urinary tract infection) Keratosis Incurvated nail Hypomagnesemia Vaginal irritation Dysuria Stress incontinence Urge incontinence Overactive bladder Allergic rhinitis Coronary artery calcification seen on CAT scan Fatigue History of DVT of lower extremity History of sleep apnea Bronchitis, mucopurulent recurrent Dyspnea on exertion Bronchiectasis Asthma Hyperlipidemia associated with type 2 diabetes mellitus Urinary incontinence Onychomycosis Diabetic neuropathy Breast cancer screening by mammogram Dementia Diabetes mellitus Bronchitis COPD (chronic obstructive pulmonary disease) Colonoscopy planned Gallbladder anomaly Rheumatoid arthritis Osteoporosis Back pain Acid reflux disease Carpal tunnel syndrome Anxiety Hypothyroidism Sleep apnea High blood pressure Arthritis Varicose veins of ankle Depression Acute asthma Surgical History History of cataract surgery History of esophagogastroduodenoscopy (EGD) H/O right heart catheterization History of cholecystectomy H/O tubal ligation History of hernia repair Total knee replacement status Social History Smoking Status: Never smoker alcohol intake: never substance use type: denies use current occupational status: unemployed Travel in the last 8 weeks?: None Have you lived/traveled outside US in past 30 days?: No Contact w/someone who lives/traveled outside US past 30 days?: No Exposure to someone with infectious disease in past 14 days?: No Do you have a fever (greater than 100.4 F or 38 C)?: No Have you tested positive for COVID-19?: No Exposed to someone with COVID-19 in past 14 days?: No Do you have a sore throat?: No Do you have a cough?: No Do you have any weakness?: No Do you have any diarrhea?: No Are you experiencing any unusual bleeding?: No Do you have any muscle aches/pain?: No Do you have any abdominal pain?: No Are you experiencing loss of taste or smell?: No Other 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 Have you received the Flu Vaccine for this season: No Have you received the Pneumonia Vaccine: Yes ROS Obtained: Yes All systems reviewed & no additional complaints except as documented and Yes Systems reviewed as appropriate & no additional complaints except as documented Physical Exam General General appearance: alert and in no apparent distress Head Head exam: atraumatic, normocephalic and normal inspection Eye Eye exam: Present normal appearance, PERRL and EOMI; Absent scleral icterus ENT ENT exam: Present normal exam and normal external ear exam Neck Neck exam: Present normal inspection and full ROM Chest Chest inspection: Present normal inspection and symmetric chest wall rise Respiratory Respiratory exam: Present normal lung sounds bilaterally; Absent respiratory distress or wheezes Cardiovascular Cardiovascular exam: Present regular rate, normal rhythm and normal heart sounds Abdominal Exam Abdominal exam: Present soft, distention and other (L CVA tenderness); Absent tenderness, guarding or rebound Extremities Exam Extremities exam: Present normal inspection and full ROM Back Exam Back exam: Present normal inspection and full ROM Neurological Exam Neurological exam: Present alert and oriented X3 Psychiatric Psychiatric exam: Present normal affect and normal mood Skin Skin exam: Present warm and dry Medical Decision Making Medical Records Medical records reviewed: Yes I reviewed the patient's medical records. Screening: Per USPSTF and CDC recommendations, given the prevalence of disease in our region, it is our hospital?s policy to screen for HIV and viral Hepatitis for all patients aged 18 and over and those with ongoing risk factors. Andre Inquiry Pt receiving controlled substance: No Vital Signs: 07/16/25 20:30 07/16/25 20:39 07/16/25 21:03 Temperature 97.8 F 98.6 F Temperature Source Oral Oral Pulse Rate 97 H 96 H Pulse Rate [Radial] 101 H Respiratory Rate 24 16 Blood Pressure 212/113 H 155/69 H Blood Pressure [Right Arm] 140/76 Blood Pressure Mean Blood Pressure Mean [Right Arm] 97 Blood Pressure Source Automatic Cuff Blood Pressure Position Supine Blood Pressure Position [Right Arm] Sitting 02 Sat by Pulse Oximetry 96 98 97 Oxygen Delivery Method Room Air Room Air Oxygen Flow Rate (LPM) 07/16/25 21:31 07/16/25 21:47 07/16/25 22:00 Temperature Temperature Source Pulse Rate 95 H 81 84 Pulse Rate [Radial] Respiratory Rate 16 Blood Pressure 170/71 H 171/70 H 153/69 H Blood Pressure [Right Arm] Blood Pressure Mean 104 110 Blood Pressure Mean [Right Arm] Blood Pressure Source Blood Pressure Position Blood Pressure Position [Right Arm] 02 Sat by Pulse Oximetry 98 96 96 Oxygen Delivery Method Nasal Cannula Room Air Nasal Cannula Oxygen Flow Rate (LPM) 2 2 07/16/25 23:00 07/16/25 23:30 07/17/25 00:00 Temperature Temperature Source Pulse Rate 86 81 84 Pulse Rate [Radial] Respiratory Rate Blood Pressure 130/65 134/61 149/72 H Blood Pressure [Right Arm] Blood Pressure Mean 86 85 97 Blood Pressure Mean [Right Arm] Blood Pressure Source Blood Pressure Position Blood Pressure Position [Right Arm] 02 Sat by Pulse Oximetry 98 99 99 Oxygen Delivery Method Nasal Cannula Nasal Cannula Nasal Cannula Oxygen Flow Rate (LPM) 2 2 2 07/17/25 00:05 07/17/25 00:30 07/17/25 01:00 Temperature Temperature Source Pulse Rate 77 79 Pulse Rate [Radial] Respiratory Rate Blood Pressure 139/69 138/71 Blood Pressure [Right Arm] Blood Pressure Mean 92 93 Blood Pressure Mean [Right Arm] Blood Pressure Source Blood Pressure Position Blood Pressure Position [Right Arm] 02 Sat by Pulse Oximetry 98 99 97 Oxygen Delivery Method Nasal Cannula Nasal Cannula Nasal Cannula Oxygen Flow Rate (LPM) 2 2 2 07/17/25 01:18 07/17/25 01:27 Temperature 98.6 F Temperature Source Pulse Rate 76 79 Pulse Rate [Radial] Respiratory Rate 16 16 Blood Pressure 138/71 138/71 Blood Pressure [Right Arm] Blood Pressure Mean Blood Pressure Mean [Right Arm] Blood Pressure Source Blood Pressure Position Blood Pressure Position [Right Arm] 02 Sat by Pulse Oximetry 99 Oxygen Delivery Method Room Air Room Air Oxygen Flow Rate (LPM) Lab Data Lab results reviewed: Yes I reviewed the patient's lab results. Lab Results 07/16/25 21:08: WBC 8.0, RBC 4.20, Hgb 11.9 L, Hct 37.2, MCV 88.6, MCH 28.3, MCHC 32.0, RDW 13.1, Plt Count 294, MPV 9.7, Neut % (Auto) 49.3, Lymph % (Auto) 34.3, Dyer % (Auto) 13.2 H, Eos % (Auto) 2.4, Baso % (Auto) 0.5, Neut # (Auto) 3.9, Lymph # (Auto) 2.7, Dyer # (Auto) 1.1 H, Eos # (Auto) 0.2, Baso # (Auto) 0.0, Sodium 138, Potassium 4.1, Chloride 101, Carbon Dioxide 23, Anion Gap 18.1 H, BUN 11, Creatinine 0.80, Estimated Creat Clear 77, Estimated GFR 71, Est GFR ( Amer) 86, Glucose 196 H, Calcium 9.8, Magnesium 1.8, Total Bilirubin 0.5, AST 34, ALT 32, Alkaline Phosphatase 144 H, Troponin I < 0.01, Total Protein 8.0 D, Albumin 4.5, Globulin 3.5 H, Albumin/Globulin Ratio 1.3, Lipase 112, Urine Color Yellow, Urine Appearance Clear, Urine pH 5.5, Ur Specific Buchanan 1.010, Urine Protein Trace, Urine Glucose (UA) 1+, Urine Ketones Negative, Urine Blood Negative, Urine Nitrate Negative, Urine Bilirubin Negative, Urine Urobilinogen 0.2, Ur Leukocyte Esterase Negative, Urine RBC 10-20, Urine WBC 20-50, Ur Squamous Epith Cells 5-10, Amorphous Sediment 1+, Urine Bacteria 4+ 07/17/25 00:43: Troponin I < 0.01 07/16/25 21:08 07/16/25 21:08 Orders (Tests/Meds): ED MEDICATIONS Generic Name Dose Route Start Last Admin Trade Name Freq PRN Reason Stop Dose Admin Ceftriaxone Sodium 2 gm/ 100 mls @ 200 mls/hr 07/16/25 23:30 07/17/25 00:35 Sodium Chloride IV 07/26/25 23:29 Infused Q24H KRISTIAN Infusion Discontinued Medications Generic Name Dose Route Start Last Admin Trade Name Freq PRN Reason Stop Dose Admin Azithromycin 500 mg 07/16/25 23:48 07/17/25 00:01 Azithromycin 250mg Tablet PO 07/16/25 23:49 500 mg ONCE ONE Administration Iopamidol 70 ml 07/16/25 22:12 07/16/25 22:24 Iopamidol-370 (76%);100ml Bottle IV 07/16/25 22:13 70 ml ONCE ONE Administration Ketorolac Tromethamine 30 mg 07/16/25 21:31 07/16/25 21:44 Ketorolac 30mg/Ml Vial IV 07/16/25 21:32 30 mg ONCE ONE Administration Ondansetron HCl 4 mg 07/16/25 21:31 07/16/25 21:44 Ondansetron 4mg/2ml Vial IV 07/16/25 21:32 4 mg ONCE ONE Administration Sodium Chloride 10 ml 07/16/25 22:12 07/16/25 22:24 Sodium Chloride 0.9% 10ml Syr (Rad Only) IV 07/16/25 22:13 10 ml ONCE ONE Administration Sodium Chloride 50 ml 07/16/25 22:12 07/16/25 22:24 0.9 % Sodium Chloride 50 Ml Vial IV 07/16/25 22:13 50 ml ONCE ONE Administration ORDERS Category Date Time Status CT abdomen pelvis w con Stat Cat Scan 07/16/25 21:[address] angio chest PE protocol Stat Cat Scan 07/16/25 21:31 Completed CBC w/Auto Diff [Complete Blood Count Auto Diff] Stat Lab 07/16/25 21:08 Completed CMP [Comprehensive Metabolic Panel] Stat Lab 07/16/25 21:08 Completed Lipase Stat Lab 07/16/25 21:08 Completed MAG [Magnesium] Stat Lab 07/16/25 21:08 Completed Trop I [Troponin I] Stat Lab 07/16/25 21:08 Completed Troponin I Q3H Lab 07/17/25 00:43 Completed Troponin I Q3H Lab 07/17/25 03:45 Ordered UA [Urinalysis and Microscopic] Stat Lab 07/16/25 21:08 Completed Urine Culture Stat Micro 07/16/25 21:08 Received Medical Decision Narrative: Patient is a 70-year-old female with multiple medical problems who presented to the emergency department with left flank pain. On arrival, patient was hemodynamically stable with unremarkable vital signs. Differential includes but not limited to: Pyelonephritis, urinary tract infection, nephrolithiasis, lower lobe pneumonia, ACS/NM, pulmonary embolism, bowel obstruction, amongst others. Patient's labs were reviewed and interpreted by myself: CBC showed no leukocytosis, hemoglobin was stable. CMP was unremarkable. Glucose normal. Initial troponin less than 0.01, second troponin less than 0.01. UA had 4+ bacteria, 20-50 white blood cells. Lipase normal. CT chest and CT abdomen reviewed and interpreted by myself: CT chest showed concern for possible atypical pneumonia, CT abdomen showed no acute pathology. Given the patient had left CVA tenderness with a urinary tract infection, patient was given a dose of Rocephin in the emergency department as well as a dose of azithromycin for atypical pneumonia. Was otherwise hemodynamically stable had no significant leukocytosis. Patient was not tachycardic patient did not meet sepsis criteria. Olema the patient was appropriate for outpatient management. Patient was sent with Levaquin to treat as well as pyelonephritis. Patient was recommended to discontinue the antibiotic she was previously prescribed which she has not started and to start the Levaquin instead. Patient was otherwise discharged home stable condition, return precautions were discussed. Critical Care Critical Care Time Critical Care Time: No
--- OUTSIDE RECORDS SUMMARY | 2025-07-16 21:02 | XMS_ITS | Clinical Summary ---
Author Organization [facility] Address [address] [place] [address] Care Team Providers Care Parachute Harness Rigger Name Role Phone Reza Panchal MD Primary Care Provider [phone] Allergies Active Allergy Reactions Criticality Noted Date [...] minutes. 25 tablet 5 01/03/20 24 Active mirtazapine (Remeron) 15 MG tablet [...] Self, Reported on 06/05/2025 glucose blood test stripIndications:T ype 2 diabetes [...] on 06/05/2025 levothyroxine (SYNTHROID, LEVOTHROID) 75 MCG tabletIndications: Acquired [...] (HYGROTON) 25 MG tablet 03/25/20 25 Active Fluticasone-Salmet shira (ADVAIR/WIXELA) 100-50 MCG/ACT [...] Daily. 30 tablet 11 05/12/20 25 Active Additional Information Patient not taking.Reported on 06/05/2025 nitrofurantoin, macrocrystal-monoh ydrate, (MACROBID) 100 MG capsuleIndications [...] g 12 05/14/20 25 Active nystatin (MYCOSTATIN) [id number] UNIT/GM powderIndications: Yeast dermatitis,Perinea l irritation in female Apply topically to the appropriate area as directed 3 (Three) Times a Day. 60 g 3 05/14/20 25 Active fluconazole (DIFLUCAN) 150 MG tablet TAKE 1 TABLET BY MOUTH 1 TIME FOR 1 DOSE. MAY REPEAT IN 3 DAYS IF SYMPTOMATIC 05/14/20 25 Active omeprazole (priLOSEC) 40 MG capsule Take 1 capsule by mouth Daily. 05/27/20 25 Active meloxicam (MOBIC) 15 MG tablet Take 1 tablet by mouth Daily As Needed for Mild Pain. 30 tablet 5 06/05/20 25 Active alendronate (FOSAMAX) 70 MG tablet Take 1 tablet by mouth Every 7 (Seven) Days. 4 tablet 6 06/05/20 25 Active triamterene-hydroc hlorothiazide (DYAZIDE) 37.5-25 MG per capsule Take 1 capsule by mouth Daily. 06/10/20 25 Active Active Problems Problem Noted Date Diagnosed Date [...] antibiotics to protect the rectal reservoir including oeit-ptr-xewicyc yogurt preparations to judy oral pills containing [...] (05/14/2025 6:23 PM EDT): Orders: nystatin (MYCOSTATIN) [id number] UNIT/GM powder; Apply topically to the appropriate area as directed 3 (Three) Times a Day. POC Urinalysis Dipstick, Automated Perineal irritation in female 05/14/2025 Assessment & Plan (05/14/2025 6:23 PM EDT): Orders: nystatin (MYCOSTATIN) [id number] UNIT/GM powder; Apply topically to the appropriate [...] mellitus type 2 in obese 05/13/2019 Overview (07/16/2025): 01/15/24 REGULATORY IMO CHANGES UPDATING PER 2024 REGULATORY 2024 LOAD Angina pectoris 05/03/2019 Overview (12/31/2020): a. Remote [facility] -- data deficit: No reported disease. b. L ight [place] with medical treatment. c. [facility], 05/12/2011, Dr. Mosley: Angiographically normal coronary [...] next visit. Reviewed labs from [facility]. Labs also requested. Assessment & Plan (01/30/2025 [...] Encounters Date Type Department Care Team Description 07/14/2025 Telephone [facility] PUL[facility] MEDICINE [address] [address] [place] [address] Maxine Gibson, PACK MASTER Shortness of Breath 07/09/2025 9:00 AM EDT Infusion [facility] OUTPATIENT ONCOLOGY [address] [place] [address] Age-related osteoporosis without current pathological fracture (Primary Dx) 07/08/2025 9:05 AM EDT Lab [facility] [place] [address] [facility] [address] [place] [address] Seropositive rheumatoid arthritis; High risk medication use; Fatigue, unspecified type 07/08/2025 Results Follow-Up [facility] RHEUMATOLOGY [address] [place] [address] John Sheppard, PACK MASTER 07/08/2025 Results Follow-Up [facility] [place] [address] [facility] [address] [place] [address] John Sheppard, PACK MASTER 07/08/2025 Travel 06/17/2025 Results Follow-Up [facility] [address] [place] [address] Sanam Saunders APRN 06/13/2025 10:00 AM EDT Office Visit [facility] [address] [place] [address] Sanam Saunders, PACK MASTER Infection due to 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 toxin-producing Escherichia coli (E.coli) (Primary Dx); Lower urinary tract symptoms (LUTS) 06/13/2025 Travel 06/05/2025 10:45 AM EDT Office Visit [facility] [address] [phone] John Sheppard APRN Seropositive rheumatoid arthritis (Primary Dx); High risk medication use; Primary osteoarthritis involving multiple joints; Age-related osteoporosis without current pathological fracture; NSAID long-term use; Fatigue, unspecified type 06/05/2025 Telephone [facility] [address] [address] John Sheppard APRN 06/05/2025 Travel 06/04/2025 Results Follow-Up [facility] [address] [address] Patrice Santana DO 06/03/2025 10:33 AM EDT - 06/03/2025 11:59 PM EDT Hospital Encounter [facility] [address] [place] [phone] Patrice Santana DO Seropositive rheumatoid arthritis; High risk medication use; Primary osteoarthritis involving multiple joints; Age-related osteoporosis without current pathological fracture; NSAID long-term use Discharge Disposition: Home or Self Care 06/03/2025 Travel 05/28/2025 Telephone [facility] GASTROENTEROLOGY [address] [phone] Ivelisse Cordon MD CANCEL PROCEDURE 05/23/2025 1:00 PM EDT - 05/23/2025 11:59 PM EDT Hospital Encounter [facility] OUTPATIENT ONCOLOGY [address] [place] [address] Patrice Santana DO Rheumatoid arthritis involving multiple sites with positive rheumatoid factor (Primary Dx) Discharge Disposition: Home or Self Care 05/23/2025 Travel 05/16/2025 Results Follow-Up [facility] [address] [facility] [address] [place] [address] Sanma Saunders, PACK MASTER 05/14/2025 2:30 PM EDT Office Visit [facility] [address] [facility] [address] [facility] [address] [place] [address] Sanam Saunders, PACK MASTER Infection due to 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 toxin-producing Escherichia coli (E.coli) (Primary Dx); Yeast vaginitis; Yeast dermatitis; Perineal irritation in female; Atrophic vaginitis 05/14/2025 Travel 05/14/2025 Telephone [facility] [address] [facility] [address] [place] [address] Sanam Saunders, PACK MASTER 05/13/2025 Prior Authorization [facility] [address] [facility] [address] [place] [address] Khadar Julien RMA VOQUENZA 10 MG PA REQUEST; APPROVAL 05/12/2025 Refill [facility] [address] [facility] [address] [place] [address] Palak Graham PA-C 05/08/2025 Telephone [facility] [address] [facility] [address] [place] [address] STARK - CLINICAL 05/07/2025 Results Follow-Up [facility] DIAGNOSTIC CENTER AT [address] [place] [address] Palak Graham PA-C 05/06/2025 12:15 PM EDT Lab [facility]NOSTIC C[facility] AT [address] [place] [address] Esophageal dysphagia; Gastroesophageal reflux disease, unspecified whether esophagitis present 05/06/2025 10:30 AM EDT Office Visit [facility] [address] [facility] [address] [place] [address] Palak Graham PA-C Esophageal dysphagia (Primary Dx); Gastroesophageal reflux disease, unspecified whether esophagitis present; History of Araseli fundoplication; History of aspiration pneumonia 05/06/2025 Telephone [facility] [address] [facility] [address] [place] [address] Palak Graham PA-C 05/06/2025 Travel 04/29/2025 9:30 AM EDT Office Visit [facility] MEDICINE [address] [facility] [address] [place] [address] Maxine Gibson APRN Seasonal allergic rhinitis due to pollen (Primary Dx); Chronic cough; GERD without esophagitis; DEVANG (obstructive sleep apnea)/suspected nocturnal hypoxemia.-by history. Intolerant of NIPPV in past. 04/29/2025 Refill [facility] [address] [facility] [address] [place] [address] Tristan Mosley MD Med Refill 04/29/2025 Travel from Last 3 Months Immunizations Immunization [...] = 0.6 oz pur e alcohol) [facility] Utilities Answer Date Recorded In the [...] or training? Not on file Preferred Language Egyptian 01/28/2025 PHQ-2 Answer Date Recorded Retired PHQ-9: [...] Mass Index 39.57 07/09/2025 9:06 AM EDT Plan of Treatment Upcoming Encounters Date Type Department Care Team (Late st Contact Info) Description 07/18/2025 12:00 PM EDT Office Visit [facility] MEDICINE [address] [facility] [address] [place] [address] 07/18/2025 12:30 PM EDT Office Visit [facility] MEDICINE [address] [facility] [address] [place] [address] Maxine Gibson, PACK MASTER [address] [place] [address] 07/23/2025 10:00 AM EDT Infusion [facility] OUTPATIENT ONCOLOGY [place] [address] [facility] [address] [place] [phone] 09/02/2025 10:00 AM EST Office Visit [facility] [address] [facility] [address] [place] [address] Sanam Saunders, PACK MASTER [address] [facility] [address] [place] [address] 09/24/2025 9:15 AM EST Office Visit [facility] [address] [phone] John Sheppard, PACK MASTER [address] [facility] [address] [place] [address] 02/03/2026 10:45 AM EDT Office Visit [facility] [address] [facility] [address] [place] [phone] Patrice Santana DO [address] [address] Health Maintenance Due Date Last Done Comments COLANTONIETAUARD 2002 COLON CANCER SCREENING 5 YEA R SIGMOIDOSCOPY 2002 CT COLONOGRAPHY 2002 FIT Testing (1 year) 2002 URINE MICROALBUMIN-CREATININ E RATIO (uACR) 04/13/2022 04/13/2021, 04/07/2020, 07/16/2019 TDAP/TD VACCINES (2 - Td or Tdap) 04/24/2022 012 DIABETIC FOOT EXAM 01/05/2024 01/04/2023, 0 01/04/2023, 01/04/2023, Additional history exists [facility] PLAN OF CARE 02/07/2024 ANNUAL WELLNESS VISIT 04/13/2024 04/13/2023 , 04/13/2021, 04/07/2020, Additional history exists FECAL OCCULT BLOOD TEST 04/13/2024 04/13/20 23, 01/14/2021, 11/07/2018 DIABETIC EYE EXAM 07/20/2024 07/20/2023, , 02/11/2021, Additional history exists HEMOGLOBIN A1C 10/16/2024 04/15/2024, 12/15, 01/03/2024, Additional history exists LIPID PANEL 02/20/2025 02/21/2024, 06/17, 12/19/2022, Additional history exists INFLUENZA VACCINE 05/16/2025 08/06/2024, , 08/29/2022, Additional history exists MAMMOGRAM 06/12/2025 06/12/2023, 07/18, 07/09/2019, Additional history exists COVID-19 Vaccine (2023-2 5 season) 2025 DXA SCAN 06/03/2027 06/03/2025, 03/17, 08/10/2022 (Patient-Reported (Performed Externally)), Additional history exists COLONOSCOPY 07/14/2033 07/14/2023, 07/16, 11/14/2013 COLORECTAL CANCER SCREENING 07/14/2033 Pneumococcal Vaccine 50+ Completed 022, 07/16/2019, 08/24/2010 ZOSTER VACCINE Completed 12/05/2024, 10/03/2024 HEPATITIS C SCREENING Completed 07/08/2025 , 08/17/2024, 04/12/2024, Additional history exists Goals Goal Patient Goal Type Associated Problems [...] day. Notes: Medical Devices Implanted Type Area Distribution Systems Superintendent Device Identifier Shelf Expiration Date Model / Serial / Lot Pk Imp Trial Basic Bilat W/Ext Neurostm/Pne Ld Imp Kt - [id number] Implanted:Qty: 1 on 02/04/2025 by Brennan Lee MD at [facility] Implant N/A: Back [employer] 07/15/2025 [id number] / / [id number] Ld Neurostm Sacral Pne - [id number] Implanted:Qty: 1 on 02/04/2025 by Brennan Lee MD at [facility] Implant Back [employer] 02/20/2027 1901 / / [id number] Neurostm Sacral/Nerv Axonics Nonrechg W/Torq Wrench - [id number] Implanted:Qty: 1 on 02/20/2025 by Brennan Lee MD at [facility] Implant N/A: Back [employer] 12/12/2025 [id number] / / [id number] Kt Ld Stim Tined Axonics W/2/Sty Str/Crv - [id number] Implanted:Qty: 1 on 02/20/2025 by Brennan Lee MD at [facility] Implant N/A: Back [employer] 02/27/2027 1201 / / [id number] Procedures Procedure Name Priority Date/Time Associated Diagnosis Comments CBC AND DIFFERENTIAL Routine 07/08/2025 9:03 AM EDT Seropositive rheumatoid arthritis High risk medication use CBC WITH AUTO DIFFERENTIAL Routine 07/08/2025 9:03 AM EDT Seropositive rheumatoid arthritis High risk medication use HEPATITIS PANEL, ACUTE Routine 07/08/2025 9:03 AM EDT Seropositive rheumatoid arthritis High risk medication use Fatigue, unspecified type SEDIMENTATION RATE Routine 07/08/2025 9: 03 AM EDT Seropositive rheumatoid arthritis High risk medication use C-REACTIVE PROTEIN Routine 07/08/2025 9: 03 AM EDT Seropositive rheumatoid arthritis High risk medication use COMPREHENSIVE METABOLIC PANEL Routine 07/08/2025 9:03 AM EDT Seropositive rheumatoid arthritis High risk medication use VITAMIN D,25-HYDROXY Routine 07/08/2025 9:03 AM EDT Age-related osteoporosis without current pathological fracture POCT URINALYSIS DIPSTICK, AUTOMATED Routine 06/13/2025 10:07 [...] presence unspecified, unspecified laterality, unspecified retinopathy severity LIPID PANEL Routine 02/21/2024 10:20 AM EDT [...] Relevant to Health Maintenance Results * (ABNORMAL) CBC Auto Differential (07/08/2025 9:03 AM EDT) Only the most recent of2 resultswithin the time period is included. WBC 7.14 3.40 - 10.80 10*3/mm3 07/08/2025 2:34 PM EDT [facility] RBC 3.74(L) 3.77 - 5.28 10*6/mm3 07/08/2025 2:34 PM EDT [facility] Hemoglobin 10.7(L) 12.0 - 15.9 g/dL 07/08/2025 2:34 PM EDT [facility] Hematocrit 34.2 34.0 - 46.6 % 07/08/2025 2:34 PM EDT [facility] MCV 91.4 79.0 - 97.0 fL 07/08/2025 2:34 PM EDT [facility] MCH 28.6 26.6 - 33.0 pg 07/08/2025 2:34 PM EDT [facility] MCHC 31.3(L) 31.5 - 35.7 g/dL 07/08/2025 2:34 PM EDT [facility] RDW 12.7 12.3 - 15.4 % 07/08/2025 2:34 PM EDT [facility] RDW-SD 42.3 37.0 - 54.0 fl 07/08/2025 2:34 PM EDT [facility] MPV 10.2 6.0 - 12.0 fL 07/08/2025 2:34 PM [facility] Platelets 255 140 - 450 10*3/mm3 07/08/2025 2:34 PM [facility] Neutrophil % 49.5 42.7 - 76.0 % 07/08/2025 2:34 PM [facility] Lymphocyte % 31.8 19.6 - 45.3 % 07/08/2025 2:34 PM [facility] Monocyte % 14.6(H) 5.0 - 12.0 % 07/08/2025 2:34 PM [facility] Eosinophil % 3.1 0.3 - 6.2 % 07/08/2025 2:34 PM [facility] Basophil % 0.4 0.0 - 1.5 % 07/08/2025 2:34 PM [facility] Immature Grans % 0.6(H) 0.0 - 0.5 % 07/08/2025 2:34 PM [facility] Neutrophils, Absolute 3.54 1.70 - 7.00 10*3/mm3 07/08/2025 2:34 PM [facility] Lymphocytes, Absolute 2.27 0.70 - 3.10 10*3/mm3 07/08/2025 2:34 PM [facility] Monocytes, Absolute 1.04(H) 0.10 - 0.90 10*3/mm3 07/08/2025 2:34 PM [facility] Eosinophils, Absolute 0.22 0.00 - 0.40 10*3/mm3 07/08/2025 2:34 PM [facility] Basophils, Absolute 0.03 0.00 - 0.20 10*3/mm3 07/08/2025 2:34 PM [facility] Immature Grans, Absolute 0.04 0.00 - 0.05 10*3/mm3 07/08/2025 2:34 PM [facility] nRBC 0.0 0.0 - 0.2 /100 WBC 07/08/2025 2:34 PM EDT [facility] Blood Venipuncture / Unknown 07/08/2025 9:03 AM EDT 07/08/2025 9:03 AM EDT FloraCliff Sheppard PACK MASTER LAB BLOOD ORDERABLES F inal Result Performing Organization Address City/[facility]/ZIP Co de Phone Number [facility]
[address] [place] [address], * Hepatitis Panel, Acute (07/08/2025 9:03 AM EDT) Hepatitis B Surface Ag Non-Reacti ve Non-Reacti ve 07/08/2025 3:12 PM EDT [facility] Hep A IgM Non-Reacti ve Non-Reacti ve 07/08/2025 3:12 PM EDT [facility] Hep B C IgM Non-Reacti ve Non-Reacti ve 07/08/2025 3:12 PM EDT [facility] Hepatitis C Ab Non-Reacti ve Non-Reacti ve 07/08/2025 3:12 PM EDT [facility] Blood Venipuncture / Unknown 07/08/2025 9:03 AM EDT 07/08/2025 9:03 AM EDT Narrative [facility] - 07/08/2025 3:12 PM EDT Results may be falsely decreased if patient taking Biotin. John Sheppard PACK MASTER LAB BLOOD ORDERABLES F inal Result Performing Organization Address City/[facility]/ZIP Co de Phone Number [facility]
[address] [place] [address], * Vitamin D 25 Hydroxy (07/08/2025 9:03 AM EDT) 25 Hydroxy, Vitamin D 56.4 30.0 - 100.0 ng/ml 07/08/2025 3:02 PM EDT [facility] Blood Venipuncture / Unknown 07/08/2025 9:03 AM EDT 07/08/2025 9:03 AM EDT Narrative [facility] - 07/08/2025 3:02 PM EDT Reference Range for Total Vitamin D 25(OH) Deficiency <20.0 ng/mL Insufficiency 21-29 ng/mL Sufficiency 30-100 ng/mL Toxicity >100 ng/ml John Sheppard PACK MASTER LAB BLOOD ORDERABLES F inal Result Performing Organization Address City/[facility]/ZIP Co de Phone Number [facility]
[address] [place] [address], * Sedimentation Rate (07/08/2025 9:03 AM EDT) Sed Rate 28 0 - 30 mm/hr 07/08/2025 2:36 PM EDT [facility] Blood Venipuncture / Unknown 07/08/2025 9:03 AM EDT 07/08/2025 9:03 AM EDT John Sheppard APRN LAB BLOOD ORDERABLES F inal Result Performing Organization Address [facility] Co de Phone Number [facility]
[address] [place] [address], [place] [phone] * C-reactive Protein (07/08/2025 9:03 AM EDT) C-Reactive Protein 0.30 0.00 - 0.50 mg/dL 07/08/2025 2:56 PM EDT [facility] Blood Venipuncture / Unknown 07/08/2025 9:03 AM EDT 07/08/2025 9:03 AM EDT FloraAlexi Sheppard PACK MASTER LAB BLOOD ORDERABLES F inal Result Performing Organization Address City/[facility]/ZIP Co de Phone Number [facility]
[address] [place] [address], * (ABNORMAL) Comprehensive Metabolic Panel (07/08/2025 9:03 AM EDT) Only the most recent of2 resultswithin the time period is included. Glucose 194(H) 65 - 99 mg/dL 07/08/2025 2:56 PM EDT [facility] BUN 12.0 8.0 - 23.0 mg/dL 07/08/2025 2:56 PM EDT [facility] Creatinine 0.74 0.57 - 1.00 mg/dL 07/08/2025 2:56 PM EDT [facility] Sodium 138 136 - 145 mmol/L 07/08/2025 2:56 PM EDT [facility] Potassium 4.0 3.5 - 5.2 mmol/L 07/08/2025 2:56 PM EDT [facility] Chloride 100 98 - 107 mmol/L 07/08/2025 2:56 PM EDT [facility] CO2 22.7 22.0 - 29.0 mmol/L 07/08/2025 2:56 PM EDT [facility] Calcium 9.1 8.6 - 10.5 mg/dL 07/08/2025 2:56 PM EDT [facility] Total Protein 7.4 6.0 - 8.5 g/dL 07/08/2025 2:56 PM EDT [facility] Albumin 3.9 3.5 - 5.2 g/dL 07/08/2025 2:56 PM EDT [facility] ALT (SGPT) 18 1 - 33 U/L 07/08/2025 2:56 PM EDT [facility] AST (SGOT) 17 1 - 32 U/L 07/08/2025 2:56 PM EDT [facility] Alkaline Phosphatase 101 39 - 117 U/L 07/08/2025 2:56 PM EDT [facility] Total Bilirubin 0.2 0.0 - 1.2 mg/dL 07/08/2025 2:56 PM EDT [facility] Globulin 3.5 gm/dL 07/08/2025 2:56 PM EDT [facility] A/G Ratio 1.1 g/dL 07/08/2025 2:56 PM EDT [facility] BUN/Creatinine Ratio 16.2 7.0 - 25.0 07/08/2025 2:56 PM EDT [facility] Anion Gap 15.3(H) 5.0 - 15.0 mmol/L 07/08/2025 2:56 PM EDT [facility] eGFR 88.3 >60.0 mL/min/1.7 3 07/08/2025 2:56 PM EDT [facility] Blood Venipuncture / Unknown 07/08/2025 9:03 AM EDT 07/08/2025 9:03 AM EDT Narrative [facility] - 07/08/2025 2:56 PM EDT [...] does not include race as a factor John Sheppard PACK MASTER LAB BLOOD ORDERABLES F inal Result [facility]
[address] [place] [address], * POC Urinalysis Dipstick, Automated (06/13/2025 10:07 AM EDT) Only the most recent of2 resultswithin the time period is included. Color Yellow Yellow, Straw, Dark Yellow, Ann [facility] Clarity, UA Clear Clear [facility] Specific Clark 1.010 1.005 - 1.030 [facility] pH, Urine 7.5 5.0 - 8.0 [facility] Leukocytes Negative Negative [facility] Nitrite, UA Negative Negative [facility] Protein, POC Negative Negative mg/dL [facility] Glucose, UA Negative Negative mg/dL [facility] Ketones, UA Negative Negative [facility] Urobilinogen, UA Normal Normal, 0.2 E.U./dL [facility] Bilirubin Negative Negative [facility] Blood, UA Negative Negative [facility] Lot Number [id number] [facility] Expiration Date 11/08/2026 [facility] Urine 06/13/2025 10:0 7 AM EDT Sanam Saunders APRN POINT OF CARE TEST ORDE RABLES Final Result [facility]
[address] [place] [address], [place] [phone] * Urine Culture - Urine, Urine, Clean Catch (06/13/2025 9:55 AM EDT) Urine Culture No growth DICK 06/15/2025 4:46 AM EDT [facility] Urine Urine specimen obtained by clean catch procedure / Unknown Collection / Unknown 06/13/2025 9:55 AM EDT 06/13/2025 9:55 AM EDT aSnam Saunders APRN MICROBIOLOGY - GENERAL ORDERABLES Final Result [facility]
[address] [place] [address], [place] [phone] * DEXA Bone Density Axial (06/03/2025 10:55 [...] fall-prevention measurements. The National [employer]opor[employer] Foundation recommends (http://www.nof.org/hcp/practice/srbfelsx-ptw-gwaaeuta-guidelines/clinicians-christine de) that FDA-approved medical therapies be considered [...] the left hip with 95% confidence is 0.290472 gm/cm2 at the hip and 0.530497 g/cm2 at the lumbar spine. Report dictated by: Kiah Weston PA-c I have personally reviewed this case and agree with the findings above: Electronically Signed: Julito Kirkland MD 06/03/2025 4:39 PM EDT Workstation ID: [id number] Narrative 06/03/2025 4:39 PM EDT DUAL-ENERGY X-RAY [...] normal patients. According to criteria established by the[facility], patients with T-scores between 1.0 and [...] exercises and fall-prevention measurements. The NationalOsteoporosis Foundation recommends(http://www.nof.org/hcp/practice/muavzwlb-kao-wssjjqai-guidelines/clin ician s-guide) that FDA-approved medical therapies be [...] at the left hipwith 95% confidence is 0.771332 gm/cm2 at the hip and 0.400874 g/cm2 atthe lumbar spine. Report dictated by: Kiah Weston PA-c I have personally reviewed this case and agree with the findings above: Electronically Signed: Julito Kirkland MD 06/03/2025 4:39 PM EDT Workstation ID: [id number] Patrice Santana DO IMG DXA ORDERABLES Fin al Result * LABS SCANNED (05/14/2025) Sanam PinoArnaldoFaheem PARVIZ LAB BLOOD ORDERABLES Fi nal Result * TSH Rfx On Abnormal To Free T4 (05/06/2025 12:01 PM EDT) [facility] TSH 2.680 0.270 - 4.200 uIU/mL 05/06/2025 7:29 PM EDT [facility] Blood Venipuncture / Unknown 05/06/2025 12:01 PM EDT 05/06/2025 12:01 PM EDT Palak Graham PA-C LAB BLOOD ORDERABLES Final Result Performing Organization Address City/[facility]/ZIP Co de Phone Number [facility]
[address] [place] [address], * (ABNORMAL) POC Glycosylated Hemoglobin (Hb A1C) (04/15/2024 3:58 PM EDT) [facility] Hemoglobin A1C 5.6 4.5 - 5.7 % [facility] Lot Number [id number] [facility] Expiration Date 12/31/2025 [facility] Blood 04/15/2024 3:58 PM EDT Huyen Pal MD POINT OF CARE TEST ORDERABL ES Final Result Performing Organization Address [facility]/ZIP Co de Phone Number [facility]
[address] [place] [address], [place] [phone] * (ABNORMAL) Lipid Panel (02/21/2024 10:20 AM EDT) [facility] Total Cholesterol 143 0 - 200 mg/dL 02/21/2024 11:45 PM EDT [facility] Triglycerides 212(H) 0 - 150 mg/dL 02/21/2024 11:45 PM EDT [facility] HDL Cholesterol 37(L) 40 - 60 mg/dL 02/21/2024 11:45 PM EDT [facility] LDL Cholesterol 71 0 - 100 mg/dL 02/21/2024 11:45 PM EDT [facility] VLDL Cholesterol 35 5 - 40 mg/dL 02/21/2024 11:45 PM EDT [facility] LDL/HDL Ratio 1.72 02/21/2024 11:45 PM EDT [facility] Blood Structure of right upper limb / Unknown Venipuncture / Unknown 02/21/2024 10:20 AM EDT 02/21/2024 10:20 AM EDT Narrative [facility] - 02/21/2024 11:45 PM [...] Pal MD LAB BLOOD ORDERABLES Final Result [facility]
[address] [place] [address], * SCANNED - EYE EXAM (07/20/2023) Anatomical [...] secondary signs of malignancy. Huyen Pal MD [facility] ORDERABLES Final Result * POCT occult blood x 1 stool (04/13/2023 11:32 AM EDT) Fecal Occult Blood Negative Negative [facility] Lot Number [id number] [facility] Expiration Date 11/15/2024 [facility] DEVELOPER LOT NUMBER [id number] [facility] DEVELOPER EXPIRATION DATE 02/12/2025 [facility] Positive Control Positive Positive [facility] Negative Control Negative Negative [facility] Stool 04/13/2023 11:3 2 AM EDT Huyen Pal MD POINT OF CARE TEST ORDERABL ES Final Result [facility]
[address] [place] [address], [place] [phone] * Microalbumin / Creatinine Urine Ratio - [...] 2:11 PM EDT 04/14/2021 Comment:URINE RELEASE TO PAT I Narrative [facility] ([facility]) - 04/14/2021 10:09 AM EDT Performed at: - [address] [id number] Air Bag Curer: Jean Stephens PhD, Phone: [phone] Huyen Pal MD URINE ORDERABLES Final Resu lt Performing Organization Address City/[facility]/ZIP Co de Phone Number [facility]) [address] [place], [place] [id number], [place] [phone] [facility] [address] [place] [address], [place] [phone] * SCANNED - INFLUENZA (07/16/2019) Huyen Pal [...] Documents on File Type Date Recorded Patient Bridal Consultant Expl anation PATIENT ADVANCE DIRECTIVES - SCAN [...] Of Support Discussed With: Patient Care Teams Parachute Harness Rigger Relationship Specialty Start Date End Date Reza Panchal MD [address] [place] [address] PCP - General Family Medicine 09/30/24
--- OUTSIDE RECORDS SUMMARY | 2025-07-16 21:02 | XMS_ITS | Encounter Summary ---
[facility] Organization [facility] Address [address] [place] [address] Care Team Providers Care Supervisor Transferring And Boxing Name Role Phone Reza Panchal MD Primary Care Provider +1- [phone] Encounter Details Date Type Department Care Team (Late st Contact Info) Description 06/04/2025 Results Follow-Up [facility] RHEUMATOLOGY [address] [address] Patrice Santana DO [address] [place] [id number] Social History Tobacco Use Types Packs/Day Years Used Date Smoking Tobacco: Never Passive Smoke Exposure: Past Smokeless Tobacco: Never Comments: smokes, for 45 years Alcohol Use Standard Drinks/Week Comments No 0 (1 standard drink = 0.6 oz pur e alcohol) [facility] Utilities Answer Date Recorded In the past 12 months has [employer], gas, oil, or water [employer] threatened to shut off services in your [...] Description 07/18/2025 12:00 PM EDT Office Visit [facility] PULMONARY & CRITICAL CARE MEDICINE 3000 [facility] [address] [place] [address] 07/18/2025 12:30 PM EDT Office Visit [facility] PULMONARY & CRITICAL CARE MEDICINE 3000 [facility] [address] [place] [address] Maxine Gibson, MUNITIONS FACTORY WORKER [address] [place] [address] 07/23/2025 10:00 AM EDT Infusion [facility] OUTPATIENT ONCOLOGY [place] 330 [facility] [address] [place] [address] 09/02/2025 10:00 AM EST Office Visit [facility] UROLOGY 1760 [facility] [address] [place], [place] [address] Sanam Saunders, MUNITIONS FACTORY WORKER 1760 [facility] [address] [place], [place] [id number] 09/24/2025 9:15 AM EST Office Visit [facility] RHEUMATOLOGY [address] [place] [address] John Sheppard, MUNITIONS FACTORY WORKER [address] [facility] 100 [place], [place] [id number] 02/03/2026 10:45 AM EDT Office Visit [facility] RHEUMATOLOGY [address] [place] [address] Patrice Santana, [address] [address] documented as of this encounter Goals Goal [...] as of this encounter Care Teams Supervisor Transferring And Boxing Relationship Specialty Start Date End Date Reza Panchal MD [address] [place] [address] PCP - General Family Medicine 09/30/24 documented as of this encounter
--- OUTSIDE RECORDS SUMMARY | 2025-07-16 21:02 | XMS_ITS | Encounter Summary ---
[facility] Address [address] [place] [address] Care Team Providers Care Geophysical E Logger Name Role Phone Reza Panchal MD Primary Care Provider +1- [phone] Reason for Visit * Reason Onset Date Comments Shortness of Breath 07/14/2025 Encounter Details Date Type Department Care Team (Late st Contact Info) Description 07/14/2025 Telephone [facility] PULMONARY & CRITICAL CARE MEDICINE 3000 [facility] [address] [place] [address] Maxine Gibson, PULLEY WORKER [address] [place] [address] Shortness of Breath Social History Tobacco Use Types Packs/Day Years Used Date Smoking Tobacco: Never Passive Smoke Exposure: Past Smokeless Tobacco: Never Comments: smokes, for 45 years Alcohol Use Standard Drinks/Week Comments No 0 (1 standard drink = 0.6 oz pur e alcohol) [facility] Utilities Answer Date Recorded In the past 12 months has [employer], gas, oil, or water company threatened to [...] or training? Not on file Preferred Language Namibian 01/28/2025 PHQ-2 Answer Date Recorded Retired PHQ-9: Brief Depression Severity Measure Score 7 05/20/2024 Comments No Sex and Gender Information Value Date Recorded Sex Assigned at Female 01/09/2025 11:01 AM EDT Legal Sex Female 12:37 PM EDT Gender Identity Not on file Sexual Orientation Not on file documented as of this encounter Miscellaneous Notes * Telephone Encounter - Milla Moy MA - 07/14/2025 1:40 PM EDT Pt's granddaughter called stating pt has been having more SOB/wheezing than usual. Denies cough, fever, body aches, chills, sore throat, or any other symptoms. Thinks it's maybe related to elevated pressure in her heart, but pt recently had a heart cath and there were no blockages. Wants to know ifshe could be seen sometime this week. Please advise documented in this encounter Plan of Treatment Upcoming Encounters Date Type Department Care Team (Late st Contact Info) Description 07/18/2025 12:00 PM EDT Office Visit [facility] PULMONARY & CRITICAL CARE MEDICINE [address] [facility] [address] [place] [address] 07/18/2025 12:30 PM EDT Office Visit [facility] PULMONARY & CRITICAL CARE MEDICINE 3000 [facility] [address] [place] [address] Maxine Gibson, PULLEY WORKER [address] [place] [id number] 07/23/2025 10:00 AM EDT Infusion [facility] OUTPATIENT ONCOLOGY [place] [address] [place] [address] 09/02/2025 10:00 AM EST Office Visit [facility] UROLOGY 1760 [facility] [address] [place] [address] Sanam Saunders, PULLEY WORKER 1760 [facility] [address] [place] [address] 09/24/2025 9:15 AM EST Office Visit [facility] RHEUMATOLOGY [address] [address] John Sheppard APRN [address] [address] 02/03/2026 10:45 AM EDT Office Visit [facility] RHEUMATOLOGY [address] [address] Ptarice Santana DO [address] [address] documented as of this encounter [...] documented as of this encounter Care Teams Geophysical E Logger Relationship Specialty Start Date End Date Reza Panchal MD [facility]0 [place] [address] PCP - General Family Medicine 09/30/24 documented as of this encounter
--- OUTSIDE RECORDS SUMMARY | 2025-07-16 21:02 | XMS_ITS | Encounter Summary ---
[facility] Address [address] [place] [address] Care Team Providers Care Route Inspector Name Role Phone Reza Panchal MD Primary Care Provider +1- [phone] Reason for Visit * Reason Comments Med Refill Encounter Details Date Type Department Care Team (Late st Contact Info) Description 02/24/2023 Refill [facility] PRIMARY CARE [address] [address] Huyen Hall MD [address] [address] Type 2 diabetes mellitus with hyperglycemia, without [...] 07/18/2025 12:00 PM EDT Office Visit [facility] PULMONARY & CRITICAL CARE MEDICINE 3000 [facility] 240 [place] [address] 07/18/2025 12:30 PM EDT Office Visit [facility] PULMONARY & CRITICAL CARE MEDICINE 3000 [facility] 240 [place] [address] Maxine Gibson, RN STAFFING [address] [place] [address] 07/23/2025 10:00 AM EDT Infusion [facility] OUTPATIENT ONCOLOGY [place] [address] [place] [address] 09/02/2025 10:00 AM EST Office Visit [facility] UROLOGY [address] [place] [address] Rand Saunderslda, RN STAFFING 1760 [facility] [address] [place], [place] [address] 09/24/2025 9:15 AM EST Office Visit [facility] RHEUMATOLOGY [address] [phone] John Sheppard, RN STAFFING [address] [id number] 02/03/2026 10:45 AM EDT Office Visit [facility] RHEUMATOLOGY [address] [address] Patrice Santana, [address] [phone] documented as of this encounter Visit Diagnoses [...] documented as of this encounter Care Teams Route Inspector Relationship Specialty Start Date End Date Reza Panchal MD [address] [address] PCP - General Family Medicine 09/30/24 documented as of this encounter
--- OUTSIDE RECORDS SUMMARY | 2025-07-16 21:02 | XMS_ITS | Clinical Summary ---
Author Organization [facility] Address [address] [facility] [address] [place] [address] Phone Care Team Providers Care Recep Name Role Phone Unavailable Unavailable Conditions or Problems No information available. Medications No information available. Medications Administered No information available. Allergies, Adverse Reactions, Alerts No information available. Results No information available. Plan of Care No information available. Procedures No information available. Vital Signs No information available. Immunizations No information available. Advance Directives No information available.
--- OUTSIDE RECORDS SUMMARY | 2025-07-16 21:02 | XMS_ITS | Encounter Summary ---
Author Organization [facility] Address [address] [place] [address] Care Team Providers Care Dimensional Inspector Name Role Phone Reza Panchal MD Primary Care Provider +1- [phone] Reason for Visit * Reason Comments Med Refill Encounter Details Date Type Department Care Team (Late st Contact Info) Description 12/19/[address] [facility] PRIMARY CARE [address] [address] Dia Underwood MD 2039 [facility] 100 [place] [address] Social History Tobacco Use Types Packs/Day Years [...] Description 07/18/2025 12:00 PM EDT Office Visit [facility] PULMONARY & CRITICAL CARE MEDICINE 3000 [facility] 240 [place] [address] 07/18/2025 12:30 PM EDT Office Visit [facility] PULMONARY & CRITICAL CARE MEDICINE 3000 [facility] 240 [place] [address] Maxine Gibson, FINANCE ASSOCIATE [address] [place] [id number] 07/23/2025 10:00 AM EDT Infusion [facility] OUTPATIENT ONCOLOGY [place] 330 [facility] 110 [place] [address] 09/02/2025 10:00 AM EST Office Visit [facility] UROLOGY 1760 [facility] 502 [place] [address] Sanam Saunders, FINANCE ASSOCIATE 1760 [facility] [address] [place] [address] 09/24/2025 9:15 AM EST Office Visit [facility] RHEUMATOLOGY [address] [facility] 100 [place] [address] John Sheppard, FINANCE ASSOCIATE [address] [address] 02/03/2026 10:45 AM EDT Office Visit [facility] RHEUMATOLOGY [address] [phone] Patrice Santana DO [address] [address] documented as of this encounter Visit Diagnoses [...] documented as of this encounter Care Teams Dimensional Inspector Relationship Specialty Start Date End Date Reza Panchal MD [address] [address] PCP - General Family Medicine 09/30/24 documented as of this encounter
--- OUTSIDE RECORDS SUMMARY | 2025-07-16 21:02 | XMS_ITS | Encounter Summary ---
[facility] Address [address] [place] [address] Care Team Providers Care Chief Media Officer Name Role Phone Reza Panchal MD Primary Care Provider +1- [phone] Reason for Visit * Reason Onset Date Comments DR SANTILLAN - CLINICAL 05/08/2025 Encounter Details Date Type Department Care Team (Late st Contact Info) Description 05/08/2025 Telephone [facility] UROLOGY [address] [place] [address] Brennan Santillan MD [address] [place] [address] DR SANTILLAN - CLINICAL Social History Tobacco Use Types Packs/Day Years Used Date Smoking Tobacco: Never Passive Smoke Exposure: Past Smokeless Tobacco: Never Comments: smokes, for 45 years Alcohol Use Standard Drinks/Week Comments No 0 (1 standard drink = 0.6 oz pur e alcohol) [facility] Utilities Answer Date Recorded In the past 12 months has [employer], gas, oil, or water company threatened to [...] Not on file Preferred Language Citizen Of [place] 01/28/2025 PHQ-2 Answer Date Recorded Retired PHQ-9: [...] for Call: PATIENT [facility] WITH SEPSIS DUE TO UTI. PATIENT REQUESTING A FU WITH DR SANTILLAN. UTI URINARY SYMPTOMS STARTED AGAIN YESTERDAY. PLEASE ADVISE ON SCHEDULING. REACH OUT TO ERICA [phone] When was the patient last seen: 03-26-25 HUB AGENT UNABLE TO WARM TRANSFER. PLEASE REACH OUT ANA CRISTINA documented in this encounter Plan of Treatment Upcoming Encounters Date Type Department Care Team (Late st Contact Info) Description 07/18/2025 12:00 PM EDT Office Visit [facility] PULMONARY & CRITICAL CARE MEDICINE 3000 [facility] 240 [place] [address] 07/18/2025 12:30 PM EDT Office Visit [facility] PULMONARY & CRITICAL CARE MEDICINE 3000 [facility] 240 [place] [address] Maxine Gibson, VENEER SORTER [address] [place] [address] 07/23/2025 10:00 AM EDT Infusion [facility] OUTPATIENT ONCOLOGY [place] [address] [place] [address] 09/02/2025 10:00 AM EST Office Visit [facility] UROLOGY [address] [facility] 502 [place] [address] Sanam Saunders, VENEER SORTER 1760 [facility] [address] [place], [place] [address] 09/24/2025 9:15 AM EST Office Visit [facility] RHEUMATOLOGY [address] [address] John Sheppard APRN [address] [address] 02/03/2026 10:45 AM EDT Office Visit [facility] RHEUMATOLOGY [address] [address] Patrice Santana DO [address] [address] documented as of this encounter [...] as of this encounter Care Teams Chief Media Officer Relationship Specialty Start Date End Date Reza Panchal MD [address] [place] [address] PCP - General Family Medicine 09/30/24 documented as of this encounter
--- OUTSIDE RECORDS SUMMARY | 2025-07-16 21:02 | XMS_ITS | Encounter Summary ---
Author Organization [facility] Address [address] [place] [address] Care Team Providers Care Track Repair Supervisor Name Role Phone Reza Panchal MD Primary Care Provider +1- [phone] Encounter Details Date Type Department Care Team (Late st Contact Info) Description 06/05/2025 Telephone [facility] RHEUMATOLOGY [address] [address] John Sheppard APRN [address] [address] Social History Tobacco Use Types Packs/Day Years Used Date Smoking Tobacco: Never Passive Smoke Exposure: Past Smokeless Tobacco: Never Comments: smokes, for 45 years Alcohol Use Standard Drinks/Week Comments No 0 (1 standard drink = 0.6 oz pur e alcohol) [facility] Utilities Answer Date Recorded In the past 12 months has [employer], gas, oil, or water [employer] threatened to shut off services in your [...] the reclast? * Telephone Encounter - John Sehppard APRN - 06/05/2025 12:07 PM EDT Please PA IV reclast. Can you also call patient and tell her to stop alendronate and we will try for Reclast here. She is unsure how long she has been on alendronate but thinks it was [phone] when she originally started it. It was [...] AM EDT Please get hospital records from [facility]. documented in this encounter Plan of Treatment Upcoming Encounters Date Type Department Care Team (Late st Contact Info) Description 07/18/2025 12:00 PM EDT Office Visit [facility] PULMONARY & CRITICAL CARE MEDICINE 3000 [facility] [address] [place] [address] 07/18/2025 12:30 PM EDT Office Visit [facility] PULMONARY & CRITICAL CARE MEDICINE 3000 [facility] [address] [place] [address] Maxine Gibson, FOREMAN/PILE DRIVING AND ERECTION [address] [place] [address] 07/23/2025 10:00 AM EDT Infusion [facility] OUTPATIENT ONCOLOGY [place] [address] [place] [address] 09/02/2025 10:00 AM EST Office Visit [facility] UROLOGY [address] [place] [address] Sanam Saunders, FOREMAN/PILE DRIVING AND ERECTION 1760 [facility] [address] [place], [place] [address] 09/24/2025 9:15 AM EST Office Visit [facility] RHEUMATOLOGY [address] [address] John Sheppard APRN [address] [address] 02/03/2026 10:45 AM EDT Office Visit [facility] RHEUMATOLOGY [address] [address] Patrice Santana, [address] [address] documented as of this encounter Goals Goal [...] as of this encounter Care Teams Track Repair Supervisor Relationship Specialty Start Date End Date Reza Panchal MD [address] [place] [address] PCP - General Family Medicine 09/30/24 documented as of this encounter
--- OUTSIDE RECORDS SUMMARY | 2025-07-16 21:02 | XMS_ITS | Encounter Summary ---
Author Organization [facility] Address [address] [place] [address] Care Team Providers Care Assistant Shift Supervisor Name Role Phone Reza Panchal MD Primary Care Provider +1- [phone] Encounter Details Date Type Department Care Team [...] Description 07/18/2025 12:00 PM EDT Office Visit [facility] PULMONARY & CRITICAL CARE MEDICINE 3000 [facility] [address] [place] [address] 07/18/2025 12:30 PM EDT Office Visit [facility] PULMONARY & CRITICAL CARE MEDICINE 3000 [facility] [address] [place] [address] Maxine Gibson, COMPUTER SYSTEMS INFORMATION DIRECTOR 2400 [place] [address] 07/23/2025 10:00 AM EDT Infusion [facility] OUTPATIENT ONCOLOGY [place] [address] [place] [address] 09/02/2025 10:00 AM EST Office Visit [facility] UROLOGY 1760 [facility] [address] [place] [address] Sanam Saunders, COMPUTER SYSTEMS INFORMATION DIRECTOR 1760 [facility] [address] [place] [address] 09/24/2025 9:15 AM EST Office Visit [facility] RHEUMATOLOGY [address] [place] [address] John Sheppard APRN [address] [facility] 100 [place] [address] 02/03/2026 10:45 AM EDT Office Visit [facility] RHEUMATOLOGY [address] [place] [address] Patrice Santana DO [address] [facility] 100 [place], [place] [address] documented as of this encounter Goals Goal [...] documented as of this encounter Care Teams Assistant Shift Supervisor Relationship Specialty Start Date End Date Reza Panchal MD [address] [place] [address] PCP - General Family Medicine 09/30/24 documented as of this encounter
--- OUTSIDE RECORDS SUMMARY | 2025-07-16 21:02 | XMS_ITS | Encounter Summary ---
Author Organization [facility] Address [address] [place] [address] Care Team Providers Care Kitchen Food Server Name Role Phone Reza Panchal MD Primary Care Provider [phone]- [phone] Reason for Visit * Reason Comments Med Refill Encounter Details Date Type Department Care Team (Late st Contact Info) Description 03/22/2024 Refill [facility] [address] [address] Huyen Hall MD [address] [address] Acquired hypothyroidism Social History Tobacco Use Types Packs/Day Years Used Date Smoking Tobacco: Never Smokeless Tobacco: Never Comments: smokes, for 45 years Alcohol Use Standard Drinks/Week Comments No 0 (1 standard drink = 0.6 oz pur e alcohol) [facility] Utilities Answer Date Recorded In the past 12 months has [facility] electric, gas, oil, or water company threatened [...] training? Not on file Preferred Language Zimbabwean 01/11/2024 PHQ-2 Answer Date Recorded Retired PHQ-9: [...] Description 07/18/2025 12:00 PM EDT Office Visit [facility] & [facility] MEDICINE [address] [facility] [address] [place] [phone] 07/18/2025 12:30 PM EDT Office Visit [facility] MEDICINE [address] [facility] [address] [place] [address] Maxine Gibson, [employer] [address] [place] [address] 07/23/2025 10:00 AM EDT Infusion [facility] OUTPATIENT ONCOLOGY [place] [address] [facility] [address] [place] [phone] 09/02/2025 10:00 AM EST Office Visit [facility] UROLOGY [address] [facility] [address] [place] [address] Sanam Saunders, [employer] [address] [facility] [address] [place] [address] 09/24/2025 9:15 AM EST Office Visit [facility] RHEUMATOLOGY [address] [place] [address] John Sheppard, [employer]BLER [address] [facility] [address] [place] [address] 02/03/2026 10:45 AM EDT Office Visit [facility]HEUMATOLOGY [address] [place] [address] Patrice Santana, Dillon BOTELLO [facility] [address] [place] [address] documented as of this encounter Goals Goal [...] documented as of this encounter Care Teams Kitchen Food Server Relationship Specialty Start Date End Date Toadvine, Reza K, MD [facility] [place] [address] PCP - General Family Medicine 09/30/24 documented as of this encounter
--- OUTSIDE RECORDS SUMMARY | 2025-07-16 21:03 | XMS_ITS | Encounter Summary ---
Author Organization [facility] Address [address] [place] [address] Care Team Providers Care Junior Engineer Name Role Phone Reza Panchal MD Primary Care Provider +1- [phone] Reason for Visit * Reason Comments Med Refill Encounter Details Date Type Department Care Team (Late st Contact Info) Description 07/03/2023 Refill [facility] PRIMARY [facility] [address] [address] Huyen Hall MD [address] [address] Reactive depression; Type 2 diabetes mellitus with [...] 12:00 PM EDT Office Visit [facility] PULMONARY & CRITICAL CARE MEDICINE [address] [facility] [address] [place] [address] 07/18/2025 12:30 PM EDT Office Visit [facility] PULMONARY [facility] CRITICAL CARE MEDICINE [address] [facility] [address] [place] [address] Maxine Gibson, STEEL ERECTING PUSHER [address] [place] [id number] 07/23/2025 10:00 AM EDT Infusion [facility] OUTPATIENT ONCOLOGY [place] [address] [place] [id number] 09/02/2025 10:00 AM EST Office Visit [facility] UROLOGY [address] [facility] [address] [place] [address] PinoSanam Walker, STEEL ERECTING PUSHER [address] [facility] [address] [place], [place] [id number] 09/24/2025 9:15 AM EST Office Visit [facility] RHEUMATOLOGY [address] [phone] John Sheppard, PARVIZ [address] [id number] 02/03/2026 10:45 AM EDT Office Visit [facility] RHEUMATOLOGY [address] [phone] Patrice Santana, [address] [id number] documented as of this encounter Visit Diagnoses [...] documented as of this encounter Care Teams Junior Engineer Relationship Specialty Start Date End Date Reza Panchal MD [facility] [place] [id number] PCP - General Family Medicine 09/30/24 documented as of this encounter
--- OUTSIDE RECORDS SUMMARY | 2025-07-16 21:03 | XMS_ITS | Clinical Summary ---
Author Organization Healthcare Address [address] [place] [address] Care Team Providers Care Manager Wastewater Name Role Phone Reza Panchal MD Primary Care Provider +1- [phone] Allergies Active Allergy Reactions Criticality Noted Date [...] Insurance [employer] MEDIC[place] Care Teams Manager Wastewater Relationship Specialty Start Date End Date Reza Panchal MD [address] [place] [address] PCP - General 08/17/24
--- OUTSIDE RECORDS SUMMARY | 2025-07-16 21:03 | XMS_ITS | Encounter Summary ---
Author Organization Healthcare Address [address] [place] [address] Care Team Providers Care Pharmacy Manager Name Role Phone Reza Panchal MD Primary Care Provider +1- [phone] Encounter Details Date Type Department Care Team (Late st Contact Info) Description 08/17/2024 Ophth Exam [facility] - Pediatrics [address] [place] [phone] Tian Ramírez MD [address] [place] [address] Social History Tobacco Use Types Packs/Day [...] on filedocumented in this encounter Care Teams Pharmacy Manager Relationship Specialty Start Date End Date Reza Panchal MD [address] [place] [address] PCP - General 08/17/24 documented as of this encounter
--- OUTSIDE RECORDS SUMMARY | 2025-07-16 21:03 | XMS_ITS | Encounter Summary ---
Author Organization [facility] Address [address] [place] [address] Care Team Providers Care Ink Printer Name Role Phone Reza Panchal MD Primary Care Provider +1- [phone] Encounter Details Date Type Department Care Team [...] or training? Not on file Preferred Language Argentine 01/28/2025 PHQ-2 Answer Date Recorded Retired PHQ-9: [...] PM EDT Office Visit [facility] PULMONARY & CRITICAL CARE MEDICINE 3000 [facility] [address] [place] [address] 07/18/2025 12:30 PM EDT Office Visit [facility] PULMONARY & CRITICAL CARE MEDICINE 3000 [facility] [address] [place] [address] Maxine Gibson, POWER WHEELCHAIR MECHANIC [address] [place] [address] 07/23/2025 10:00 AM EDT Infusion [facility] OUTPATIENT ONCOLOGY [place] [address] [place] [address] 09/02/2025 10:00 AM EST Office Visit [facility] UROLOGY 1760 [facility] [address] [place] [address] Sanam Saunders, POWER WHEELCHAIR MECHANIC 1760 [facility] [address] [place] [address] 09/24/2025 9:15 AM EST Office Visit [facility] RHEUMATOLOGY [address] [place] [address] John Sheppard APRN [address] [facility] 100 [place] [address] 02/03/2026 10:45 AM EDT Office Visit [facility] RHEUMATOLOGY [address] [place] [address] Patrice Santana DO [address] [facility] 100 [place], [place] [id number] documented as of this encounter Goals Goal [...] documented as of this encounter Care Teams Ink Printer Relationship Specialty Start Date End Date Reza Panchal MD [address] [place] [address] PCP - General Family Medicine 09/30/24 documented as of this encounter
--- OUTSIDE RECORDS SUMMARY | 2025-07-16 21:03 | XMS_ITS | Encounter Summary ---
[facility] Address [address] [place] [id number] Care Team Providers Care Cone Trucker Name Role Phone Reza Panchal MD Primary Care Provider +1- [phone] Encounter Details Date Type Department Care Team (Late st Contact Info) Description 06/17/2025 Results Follow-Up [facility] UROLOGY [address] [place] [address] Sanam Saunders APRN 1760 [facility] [address] [place] [address] Social History Tobacco Use Types Packs/Day Years Used Date Smoking Tobacco: Never Passive Smoke Exposure: Past Smokeless Tobacco: Never Comments: smokes, for 45 years Alcohol Use Standard Drinks/Week Comments No 0 (1 standard drink = 0.6 oz pur e alcohol) [facility] Utilities Answer Date Recorded In the past 12 months has [employer] electric, gas, oil, or water company [...] or training? Not on file Preferred Language Sami 01/28/2025 PHQ-2 Answer Date Recorded Retired PHQ-9: [...] CARE MEDICINE 3000 [facility] 240 [place] [address] 07/18/2025 12:30 PM EDT Office Visit [facility] PULMONARY & CRITICAL CARE MEDICINE 3000 [facility] 240 [place] [address] Maxine Gibson, PARAOPTOMETRIC [address] [place] [address] 07/23/2025 10:00 AM EDT Infusion [facility] OUTPATIENT ONCOLOGY [place] 330 [facility] 110 [place] [address] 09/02/2025 10:00 AM EST Office Visit [facility] UROLOGY 1760 [facility] 502 [place] [address] Sanam Saunders, PARAOPTOMETRIC 1760 [facility] [address] [place] [address] 09/24/2025 9:15 AM EST Office Visit [facility] RHEUMATOLOGY [address] [place] [address] John Sheppard, PARAOPTOMETRIC [address] [facility] 100 [place] [address] 02/03/2026 10:45 AM EDT Office Visit [facility] RHEUMATOLOGY [address] [place] [address] Patrice Santana, [address] [facility] 100 [place] [address] documented as of this encounter Goals Goal [...] documented as of this encounter Care Teams Cone Trucker Relationship Specialty Start Date End Date Reza Panchal MD [facility] [address] [address] PCP - General Family Medicine 09/30/24 documented as of this encounter
--- OUTSIDE RECORDS SUMMARY | 2025-07-16 21:03 | XMS_ITS | Encounter Summary ---
Author Organization [facility] Address [address] [place] [address] Care Team Providers Care Hog Cutter Name Role Phone Reza Panchal MD Primary Care Provider +1- [phone] Encounter Details Date Type Department Care Team (Latest Contact Info) Description 06/03/2025 Travel Social History Tobacco Use Types Packs/Day Years Used Date Smoking Tobacco: Never Passive Smoke Exposure: Past Smokeless Tobacco: Never Comments: smokes, for 45 years Alcohol Use Standard Drinks/Week Comments No 0 (1 standard drink = 0.6 oz pur e alcohol) [facility] Utilities Answer Date Recorded In [...] or training? Not on file Preferred Language Niuean 01/28/2025 PHQ-2 Answer Date Recorded Retired PHQ-9: [...] 12:00 PM EDT Office Visit [facility] PULMONARY & CRITICAL CARE MEDICINE [address] [place] [phone] 07/18/2025 12:30 PM EDT Office Visit [facility] PULMONARY & CRITICAL CARE MEDICINE [address] [place] [address] Maxine Gibson, MEDICATION NURSE [address] [place] [address] 07/23/2025 10:00 AM EDT Infusion [facility] OUTPATIENT ONCOLOGY [place] [address] [place] [address] 09/02/2025 10:00 AM EST Office Visit [facility] UROLOGY 1760 [facility] [address] [place] [address] Sanam Saunders, MEDICATION NURSE 1760 [facility] [address] [place] [address] 09/24/2025 9:15 AM EST Office Visit [facility] RHEUMATOLOGY [address] [place] [address] John Sheppard APRN [address] [facility] 100 [place] [address] 02/03/2026 10:45 AM EDT Office Visit [facility] RHEUMATOLOGY [address] [place] [address] Patrice Santana DO [address] [facility] 100 [place], [place] [id number] documented as of this encounter Goals Goal [...] documented as of this encounter Care Teams Hog Cutter Relationship Specialty Start Date End Date Reza Panchal MD [address] [place] [address] PCP - General Family Medicine 09/30/24 documented as of this encounter
--- OUTSIDE RECORDS SUMMARY | 2025-07-16 21:03 | XMS_ITS | Encounter Summary ---
Author Organization [facility] Address [address] [place] [address] Care Team Providers Care Pershing Missile Crewmember Name Role Phone Reza Panchal MD Primary Care Provider +1- [phone] Encounter Details Date Type Department Care Team [...] Description 07/18/2025 12:00 PM EDT Office Visit [facility] PULMONARY & CRITICAL CARE MEDICINE 3000 [facility] [address] [place] [address] 07/18/2025 12:30 PM EDT Office Visit [facility] PULMONARY & CRITICAL CARE MEDICINE 3000 [facility] [address] [place] [address] Maxine Gibson, WIND TUNNEL ENGINEER [address] [place] [address] 07/23/2025 10:00 AM EDT Infusion [facility] OUTPATIENT ONCOLOGY [place] [address] [place] [address] 09/02/2025 10:00 AM EST Office Visit [facility] UROLOGY 1760 [facility] [address] [place] [address] Sanam Saunders, WIND TUNNEL ENGINEER 1760 [facility] [address] [place] [address] 09/24/2025 9:15 AM EST Office Visit [facility] RHEUMATOLOGY [address] [place] [phone] John Sheppard APRN [address] [facility] 100 [place] [address] 02/03/2026 10:45 AM EDT Office Visit [facility] RHEUMATOLOGY [address] [place] [address] Patrice Santana DO [address] [facility] 100 [place], [place] [address] documented as of this encounter Goals Goal [...] documented as of this encounter Care Teams Pershing Missile Crewmember Relationship Specialty Start Date End Date Reza Panchal MD [address] [place] [address] PCP - General Family Medicine 09/30/24 documented as of this encounter
--- OUTSIDE RECORDS SUMMARY | 2025-07-16 21:03 | XMS_ITS | Encounter Summary ---
Author Organization [facility] Address [address] [place] [address] Care Team Providers Care Patient Ombudsperson Name Role Phone Reza Panchal MD Primary Care Provider +1- [phone] Reason for Visit * Reason Comments Med Refill Encounter Details Date Type Department Care Team (Late st Contact Info) Description 02/12/2021 Refill [facility] PRIMARY CARE [address] [address] Huyen Hall MD 2039 [facility] 100 [place] [address] Gastroesophageal reflux disease, unspecified whether esophagitis present [...] Description 07/18/2025 12:00 PM EDT Office Visit [facility] PULMONARY & CRITICAL CARE MEDICINE 3000 [facility] 240 [place] [address] 07/18/2025 12:30 PM EDT Office Visit [facility] PULMONARY & CRITICAL CARE MEDICINE 3000 [facility] 240 [place] [address] Maxine Gibson, BROADCAST NEWS PRODUCER [address] [place] [address] 07/23/2025 10:00 AM EDT Infusion [facility] OUTPATIENT ONCOLOGY [place] [address] [facility] 110 [place] [address] 09/02/2025 10:00 AM EST Office Visit [facility] UROLOGY 1760 [facility] 502 [place] [address] Sanam Saunders, BROADCAST NEWS PRODUCER 1760 [facility] [address] [place], [place] [address] 09/24/2025 9:15 AM EST Office Visit [facility] RHEUMATOLOGY [address] [phone] John Sheppard APRN [address] [id number] 02/03/2026 10:45 AM EDT Office Visit [facility] RHEUMATOLOGY [address] [address] Patrice Santana, [address] [phone] documented as of this encounter Visit Diagnoses [...] documented as of this encounter Care Teams Patient Ombudsperson Relationship Specialty Start Date End Date Reza Panchal MD [address] [place] [address] PCP - General Family Medicine 09/30/24 documented as of this encounter
--- OUTSIDE RECORDS SUMMARY | 2025-07-16 21:03 | XMS_ITS | Encounter Summary ---
[facility] Organization [facility] Address [address] [place] [address] Care Team Providers Care Healthcare Business Analyst Name Role Phone Reza Panchal MD Primary Care Provider +1- [phone] Encounter Details Date Type Department Care Team (Late st Contact Info) Description 01/15/2025 Results Follow-Up [facility] RHEUMATOLOGY [address] [address] Patrice Santana DO [address] [place] [phone] Social History Tobacco Use Types Packs/Day Years Used Date Smoking Tobacco: Never Passive Smoke Exposure: Past Smokeless Tobacco: Never Comments: smokes, for 45 years Alcohol Use Standard Drinks/Week Comments No 0 (1 standard drink = 0.6 oz pur e alcohol) [facility] Utilities Answer Date Recorded In the past 12 months has [employer], gas, oil, or water [employer] threatened to shut off services in [...] CENTER PULMONARY & CRITICAL CARE MEDICINE 3000 [facility] [address] [place] [address] 07/18/2025 12:30 PM EDT Office Visit [facility] PULMONARY & CRITICAL CARE MEDICINE 3000 [facility] [address] [place] [address] Maxine Gibson, LICENSED HOME INSPECTOR [address] [place] [address] 07/23/2025 10:00 AM EDT Infusion OUTPATIENT ONCOLOGY [place] [address] [facility] 110 [place] [address] 09/02/2025 10:00 AM EST Office Visit [facility] UROLOGY 1760 [facility] 502 [place] [address] Sanam Saunders, LICENSED HOME INSPECTOR 1760 [facility] [address] [place] [address] 09/24/2025 9:15 AM EST Office Visit [facility] RHEUMATOLOGY [address] [place] [address] John Sheppard, LICENSED HOME INSPECTOR [address] [facility] 100 [place], [place] [address] 02/03/2026 10:45 AM EDT Office Visit [facility] RHEUMATOLOGY [address] [place] [address] Patrice Santana, [address] [address] documented as of this encounter Goals Goal [...] documented as of this encounter Care Teams Healthcare Business Analyst Relationship Specialty Start Date End Date Reza Panchal MD [address] [place] [address] PCP - General Family Medicine 09/30/24 documented as of this encounter
--- OUTSIDE RECORDS SUMMARY | 2025-07-16 21:03 | XMS_ITS | Encounter Summary ---
[facility] Organization [facility] Address [address] [place] [address] Care Team Providers Care Food Vendor Name Role Phone Reza Panchal MD Primary Care Provider +1- [phone] Reason for Visit * Reason Onset Date Comments CANCEL PROCEDURE 05/28/2025 Encounter Details Date Type Department Care Team (Late st Contact Info) Description 05/28/2025 Telephone [facility] GASTROENTEROLOGY [address] [address] Ivelisse Cordon MD [address] [place] [address] CANCEL PROCEDURE Social History Tobacco Use Types Packs/Day Years Used Date Smoking Tobacco: Never Passive Smoke Exposure: Past Smokeless Tobacco: Never Comments: smokes, for 45 years Alcohol Use Standard Drinks/Week Comments No 0 (1 standard drink = 0.6 oz pur e alcohol) [facility] Utilities Answer Date Recorded In the past 12 months has [employer], gas, oil, or water company threatened to [...] patient: Emergency Contact Best call back number: [phone] Chief complaint: CANCEL PROCEDURE Type of visit: EGD Requested date: NONE If rescheduling, when is the original appointment: 06/23/2025 Additional notes:PT HAD TO HAVE EGD DONE WHILE IN THE HOSPITAL. PLEASE CANCEL PROCEDURE documented in this encounter Plan of Treatment Upcoming Encounters Date Type Department Care Team (Late st Contact Info) Description 07/18/2025 12:00 PM EDT Office Visit [facility] PULMONARY & CRITICAL CARE MEDICINE 3000 [facility] [address] [place] [address] 07/18/2025 12:30 PM EDT Office Visit [facility] PULMONARY & CRITICAL CARE MEDICINE 3000 [facility] [address] [place] [address] Maxine Gibson, FINANCIAL OPERATIONS CONSULTANT [address] [place] [address] 07/23/2025 10:00 AM EDT Infusion [facility] OUTPATIENT ONCOLOGY [place] [address] [place] [address] 09/02/2025 10:00 AM EST Office Visit [facility] UROLOGY 1760 [facility] [address] [place] [address] Sanam Saunders, FINANCIAL OPERATIONS CONSULTANT 1760 [facility] [address] [place] [address] 09/24/2025 9:15 AM EST Office Visit [facility] RHEUMATOLOGY [address] [address] John Sheppard APRN [address] [address] 02/03/2026 10:45 AM EDT Office Visit [facility] RHEUMATOLOGY [address] [address] [address] Patrice Santana DO [address] [address] documented as of this [...] as of this encounter Care Teams Food Vendor Relationship Specialty Start Date End Date Reza Panchal MD [facility] [place] [address] PCP - General Family Medicine 09/30/24 documented as of this encounter
[2025-07-16 21:14] LABS: Microscopic, Urine URINE MICROSCOPIC (MICROSCOPIC)
[2025-07-16 21:15] LABS: Bilirubin,Urine Negative (Negative); Color,Urine YELLOW (Yellow); Glucose,Urine (UA) 1+ (Negative); Ketones,Urine Negative (Negative); Leukocyte Esterase,Urine Negative (Negative); PH,Urine 5.5 (5.0-8.5); Protein,Urine TRACE (Negative); Specific Gravity, Urine 1.010 (1.005-1.030); Urobilinogen,Urine 0.2 EU/dl (0.2)
--- NOTE | 2025-07-16 21:31 | CT_ITS ---
PROCEDURE INFORMATION: Exam: CTA Chest With Contrast Exam date and time: 07/16/2025 10:15 PM Age: 70 years old Clinical indication: Pain; Chest pressure; Additional info: Left flank pain TECHNIQUE: Imaging protocol: Computed tomographic angiography of the chest with contrast. Exam focused on the arteries. 3D rendering (Not supervised by radiologist): MIP and/or 3D reconstructed images were created by the technologist. Radiation optimization: All CT scans at this facility use at least one of these dose optimization techniques: automated exposure control; mA and/or kV adjustment per patient size (includes targeted exams where dose is matched to clinical indication); or iterative reconstruction. Contrast material: ISOVUE; Contrast volume: 70 ml; Contrast route: INTRAVENOUS (IV); COMPARISON: CT ANGIO CHEST 06/30/2025 11:38 AM FINDINGS: Pulmonary arteries: Pulmonary artery evaluation limited in the lung bases from respiratory motion. Pulmonary artery evaluation of fair technical quality with no pulmonary artery embolism identified. Aorta: No evidence of acute injury. Other arteries: Atherosclerosis is evident. Lungs: Mosaic attenuation of the pulmonary parenchyma with patchy airspace densities, suggesting bronchitis/bronchiolitis versus atypical pneumonia, possibly viral pneumonia. Pleural spaces: Unremarkable. No pneumothorax. No pleural effusion. Heart: Unremarkable. No cardiomegaly. No pericardial effusion. Coronary arteries: Calcific coronary artery disease is evident. Lymph nodes: Nonspecific prominent mediastinal lymph nodes. Diaphragm: A moderate hiatal hernia is present. Bones/joints: Multifocal posterior disc osseous ridging resulting in mild central canal stenosis with slight flattening of the thoracic spinal cord. Thoracic spondylosis is present. Old left rib fractures are evident. Soft tissues: Unremarkable. IMPRESSION: 1. No pulmonary artery embolism identified. Pulmonary artery evaluation limited in the lung bases from respiratory motion. 2. Mosaic attenuation of the pulmonary parenchyma with patchy airspace densities, suggesting bronchitis/bronchiolitis versus atypical pneumonia, possibly viral pneumonia. COMMENTS: Please see CT abdomen regarding additional findings.
--- NOTE | 2025-07-16 21:31 | CT_ITS ---
PROCEDURE INFORMATION: Exam: CT Abdomen And Pelvis With Contrast Exam date and time: 07/16/2025 10:15 PM Age: 70 years old Clinical indication: Abdominal pain; Flank; Left; Additional info: Left flank pain TECHNIQUE: Imaging protocol: Computed tomography of the abdomen and pelvis with contrast. 3D rendering (Not supervised by radiologist): MIP and/or 3D reconstructed images were created by the technologist. Radiation optimization: All CT scans at this facility use at least one of these dose optimization techniques: automated exposure control; mA and/or kV adjustment per patient size (includes targeted exams where dose is matched to clinical indication); or iterative reconstruction. Contrast material: ISOVUE; Contrast volume: 70 ml; Contrast route: IV; COMPARISON: CT ABDOMEN PELVIS W CON 05/25/2025 7:43 AM FINDINGS: Tubes, catheters and devices: Pudendal nerve stimulator present. Lungs: Please see chest CT. Liver: Hepatic steatosis is evident. Gallbladder and biliary ducts: Prior cholecystectomy noted. Postoperative common bile duct fullness. Pancreas: Normal. No ductal dilation. Spleen: Normal. No splenomegaly. Adrenal glands: Normal. No mass. Kidneys and ureters: Normal. No hydronephrosis. Stomach and bowel: Metallic density focus at the level of the pyloric channel with appearance favoring either ingested material or endoscopy clip. Colonic diverticulosis is present without diverticulitis. Incidental duodenal diverticulum noted. Appendix: Normal appendix. Intraperitoneal space: Unremarkable. No free air. No significant fluid collection. Vasculature: Unremarkable. No abdominal aortic aneurysm. Left-sided accessory renal artery incidentally noted. Atherosclerosis is evident. Lymph nodes: Unremarkable. No enlarged lymph nodes. Urinary bladder: Unremarkable as visualized. Reproductive: Unremarkable as visualized. Pelvic floor: Laxity of the pelvic floor is noted. Rectocele. Cystocele. Bones/joints: Moderate lumbar spine degenerative changes. Facet joint degenerative changes are present. Multifocal neural foraminal stenosis, due to degeneration. Soft tissues: Laxity of the anterior abdominal wall is present. IMPRESSION: 1. No acute intra-abdominal process identified. 2. Metallic density focus at the level of the pyloric channel with appearance favoring either ingested material or endoscopy clip. Recommend clinical correlation. COMMENTS: Please see CT chest regarding additional findings.
[2025-07-16 21:37] LABS: Hematocrit 37.2 % (37.0-47.0); Hemoglobin 11.9 g/dL (12.2-16.2); Immature Granulocytes % 0.3 %; Mean Corpuscular HGB Conc 32.0 g/dL (31.8-35.4); Mean Corpuscular Hemoglobin 28.3 pg (27.0-31.2); Mean Corpuscular Volume 88.6 fl (81-99); Nucleated Red Blood Cells % 0 %; Platelet Count 294 K/mm3 (142-424); Red Blood Count 4.20 M/mm3 (4.20-5.40); Red Cell Distribution Width-SD 42.1 fL; White Blood Count 8.0 K/mm3 (4.8-10.8)
[2025-07-16 21:41] LABS: Amorphous Sediment,Urine 1+ /lpf; Bacteria,Urine 4+ /lpf; WBC,Urine 20-50 #/hpf (0-3)
[2025-07-16 21:44] LABS: Alanine Aminotransferase 32 U/L (12-78); Albumin Level 4.5 g/dl (3.5-5.0); Albumin/Globulin Ratio 1.3 (1.1-1.8); Alkaline Phosphatase 144 U/L (38-126); Anion Gap 18.1 mEq/L (5-15); Aspartate Amino Transferase 34 U/L (14-36); Bilirubin,Total 0.5 mg/dl (0.2-1.3); Blood Urea Nitrogen 11 mg/dl (7-17); Calcium 9.8 mg/dl (8.4-10.2); Carbon Dioxide 23 mmol/L (22.0-30.0); Chloride 101 mmol/L (98-107); Creatinine Clearance Estimated 77 mL/min (50-200); Creatinine,Serum 0.80 mg/dl (0.52-1.04); Estimated Glomerular Filt Rate 71 ml/min (>60); GFR (African American) 86 ML/MIN (>60); Globulin 3.5 g/dL (1.3-3.2); Glucose 196 mg/dl (74-100); Lipase 112 U/L (23-300); Magnesium 1.8 mg/dl (1.6-2.3); Potassium 4.1 mmoL/L (3.5-5.1); Sodium 138 mmol/L (136-145); Total Protein,Serum 8.0 g/dl (6.3-8.2)
[2025-07-16] MEDS: KETOROLAC 30MG/ML VIAL 30 MG IV (21:44)
[2025-07-16] MEDS: ONDANSETRON 4MG/2ML VIAL 4 MG IV (21:44)
[2025-07-16 21:56] LABS: Troponin I < 0.01 ng/ml (0.00-0.034)
--- NOTE | 2025-07-16 21:58 | ECG_ITS ---
APPROVED REPORT Exam: Resting ECG HR:82 bpm ECG Measurements Heart Rate 82 AXES RI 149 P 56 QRSd 90 QRS -10 QT 384 T 29 QTc 423 Conclusion Normal sinus rhythm without acute ST or T wave changes concern for ischemia Electronically signed by : Randi De Leon, 07/17/2025 02:00:41
[2025-07-16] MEDS: 0.9 % SODIUM CHLORIDE 50 ML VIAL IV (22:24)
[2025-07-16] MEDS: IOPAMIDOL-370 (76%);100ML BOTTLE 70 ML IV (22:24)
[2025-07-16] MEDS: SODIUM CHLORIDE 0.9% 10ML SYR (RAD ONLY) 10 ML IV (22:24)
[2025-07-17] VITALS: BP 149/72; PULSE 84; O2SAT 99
[2025-07-17] MEDS: AZITHROMYCIN 250MG TABLET 500 MG PO (00:01)
[2025-07-17 00:05] VITALS: O2SAT 98
[2025-07-17 00:30] VITALS: BP 139/69; PULSE 77; O2SAT 99
[2025-07-17 01:00] VITALS: BP 138/71; PULSE 79; O2SAT 97
[2025-07-17 01:13] LABS: Troponin I < 0.01 ng/ml (0.00-0.034)
[2025-07-17 01:18] VITALS: BP 138/71; PULSE 76; RESP 16; TEMP 37; O2SAT 99
[2025-07-17 01:27] VITALS: BP 138/71; PULSE 79; RESP 16; O2SAT 99
--- NOTE | 2025-07-20 05:33 | PC.NURSE ---
Urine culture results given to MD Chi, no changes to antibiotics needed.
== END 2025-07-17 01:38 | disposition home or self-care (01) ==
PROVIDERS: Emergency Provider Student in an Organized Health Care Education/Training Program; PCP Family Medicine
DX: N10 Acute pyelonephritis (principal); R10.32 Left lower quadrant pain; M54.59 Other low back pain; J18.9 Pneumonia, unspecified organism; B95.2 Enterococcus as the cause of diseases classified elsewhere
CPT/HCPCS: 71275; 74177; 80053; 81001; 83690; 83735; 84484; 85025; 87086; 87088; 87186; 93005; 96365; 96366; 96375; 99285; J0696; J1885; J2405; Q9967

== ENCOUNTER 2025-07-18 09:22 | Emergency (ER) | payer MEDICARE, MEDICAID, SELFPAY ==
--- OUTSIDE RECORDS SUMMARY | 2017-02-08 12:08 | XMS_ITS | Encounter Summary ---
[facility] Address [address] [place] [address] Care Team Providers Care Technical Supervisor Name Role Phone Lizbeth Ibarra MD Primary Care Provider Unav ailable Encounter Details Date Type Department Care Team (Late st Contact Info) Description 02/08/2017 12:08 PM EDT Hospital Encounter [facility] PULMONARY & CRITICAL CARE MEDICINE 2400 [place] [phone] Social History Tobacco Use Types Packs/Day Years Used Date Smoking Tobacco: Never Passive Smoke Exposure: Past Smokeless Tobacco: Never Comments: smokes, for 45 years Alcohol Use Standard Drinks/Week Comments No 0 (1 standard drink = 0.6 oz pur e alcohol) [facility] Utilities Answer Date Recorded In the past 12 months has [employer], gas, oil, or water [employer] threatened to shut off services in your [...] or training? Not on file Preferred Language Irish 01/28/2025 PHQ-2 Answer Date Recorded Retired PHQ-9: [...] 1 Month) No 02/20/2025 7:09 AM EDT eDana Benites RN * Calculated C-SSRS Risk Score (Lifetime/Recent) Answer Date of Assessment Author No Risk Indicated 02/20/2025 7:09 AM EDT Dary Chapin RN * [place] Suicide Severity Rating Scale (Screener/Recent Self-Report) Question Answer Date of Assessment Author 6. Suicidal Behavior (Lifetime) No 7:09 AM EDT Dary Benites, SRAVANI documented as of this encounter Plan of Treatment Upcoming Encounters Date Type Department Care Team (Late st Contact Info) Description 07/21/2025 11:30 AM EDT Office Visit [facility] UROLOGY [address] [place] [address] [address] [place] [phone] Sanam Saunders, DIESEL SCOOP OPERATOR 1760 [facility] [address] [place] [address] 07/23/2025 10:00 AM EDT Infusion [facility] OUTPATIENT ONCOLOGY [place] 330 [facility] 110 [place] [address] 09/01/2025 11:00 AM EST Office Visit [facility] PULMONARY & CRITICAL CARE MEDICINE 3000 [facility] 240 [place] [address] 09/01/2025 11:30 AM EST Office Visit [facility] PULMONARY & CRITICAL CARE MEDICINE 3000 [facility] 240 [place] [address] Maxine Gibson, DIESEL SCOOP OPERATOR 2400 [place] [address] 09/02/2025 10:00 AM EST Office Visit [facility] UROLOGY 1760 [facility] 502 [place] [address] Sanam Saunders APRN 1760 [facility] [address] [place], [place] [phone] 09/24/2025 9:15 AM EST Office Visit [facility] RHEUMATOLOGY [address] [phone] John Sheppard, PARVIZ 330 [facility] 100 [place], [place] [phone] 02/03/2026 10:45 AM EDT Office Visit [facility]UMATOLOGY 330 [facility] [address] [address] Patrice Santana DO [address] [address] documented as of this encounter [...] Track and Manage My Symptoms Patient Goals Nathalia Kovacs, RN Note: Follow Up Date - not [...] documented as of this encounter Care Teams Technical Supervisor Relationship Specialty Start Date End Date Lizbeth Ibarra MD PCP - General 06/18/15 07/10/17 documented as of this encounter
--- OUTSIDE RECORDS SUMMARY | 2022-02-25 11:00 | XMS_ITS | Encounter Summary ---
Author Organization [facility] Address [address] [place] [address] Care Team Providers Care Mental Health Nurse Practitioner Name Role Phone Johanna Jeffrey MD Primary Care Provider +1- [phone] Reason for Visit * Monitoring (Routine) - Closed Specialty Diagnoses / Procedures Referred By Tia t Referred To Contact Diagnoses Palpitations Dizziness Procedures Mobile Cardiac Outpatient Telemetry Cardiac Event Monitor Tiffany Maier MD [address] [place] [address] Phone: tel: fax: [facility] [address] [facility] [address] [facility] 100 [place] [address] Phone: tel: Referral ID Status Reason Start Date Expiration Date Visits Re quested Visits Authorized [id number] Closed 02/25/2022 02/25/2023 1 1 Encounter Details Date Type Department Care Team (Late st Contact Info) Description 02/25/2022 11:00 AM EDT Hospital Encounter [facility] CARDIOLOGY [address] [place] [address] Palpitations; Dizziness Social History Tobacco Use Types Packs/Day Years Used Date Smoking Tobacco: Never Passive Smoke Exposure: Past Smokeless Tobacco: Never Comments: smokes, for 45 years Alcohol Use Standard Drinks/Week Comments No 0 (1 standard drink = 0.6 oz pur e alcohol) [facility] Utilities Answer Date Recorded In the past 12 months has th e electric, [employer], oil, or water [employer] threatened to shut off services in your [...] or training? Not on file Preferred Language Urdu 01/28/2025 PHQ-2 Answer Date Recorded Retired PHQ-9: [...] 7:09 AM EDT Dary Chapin RN * [place] Suicide Severity Rating Scale (Screener/Recent Self-Report) Question Answer Date of Assessment Author 6. Suicidal Behavior (Lifetime) No 7:09 AM EDT Dary Benites, RN documented as of this encounter Plan of Treatment Upcoming Encounters Date Type Department Care Team (Late st Contact Info) Description 07/21/2025 11:30 AM EDT Office Visit [facility] UROLOGY [address] [facility] 502 [place] [address] Sanam Saunders APRN 1760 [facility] [address] [place] [address] 07/23/2025 10:00 AM EDT Infusion [facility] OUTPATIENT ONCOLOGY [place] [address] [facility] 110 [place] [address] 09/01/2025 11:00 AM EST Office Visit [facility] PULMONARY & CRITICAL CARE MEDICINE [address] [facility] [address] [place] [address] 09/01/2025 11:30 AM EST Office Visit [facility] PULMONARY & CRITICAL CARE MEDICINE [address] [facility] [address] [place] [address] Maxine Gibosn, CREDIT CHECKER [address] [place] [address] 09/02/2025 10:00 AM EST Office Visit [facility] UROLOGY [address]60 [facility] 502 [place] [address] Sanam Saunders, CREDIT CHECKER [address] [phone] 09/24/2025 9:15 AM EST Office Visit [facility] RHEUMATOLOGY [address] [phone] John Sheppard, CREDIT CHECKER [address] [id number] 02/03/2026 10:45 AM EDT Office Visit [facility] RHEUMATOLOGY [address] [address] Patrice Santana, [address] [phone] documented as of this encounter Goals Goal [...] 21 hours and 51 minutes. Total beats: [id number]. Average HR: 83. Min HR: 48. Max [...] documented as of this encounter Care Teams Mental Health Nurse Practitioner Relationship Specialty Start Date End Date Johanna Jeffrey MD Mike GOODWIN [facility] DEJON POWELL [address] PCP - General Internal Medicine 10/20/21 08/20/22 documented as of this encounter
--- OUTSIDE RECORDS SUMMARY | 2024-04-23 19:45 | XMS_ITS | Encounter Summary ---
Author Organization [facility] Address [address] [place] [address] Care Team Providers Care Tilt Tray Driver Name Role Phone Rafael Pal MD, Huyen Primary Care Provider [phone] Reason for Referral * Hospital - Outpatient [...] or More Parameters Ijeoma Payne APRN [address]20 [place] [address] Phone: tel: fax: [facility] [address] [address] Phone: tel: fax: Referral ID Status Reason Start Date Expiration Date Visits Re quested Visits Authorized [id number] Closed 12/19/2023 12/18/2024 1 1 Reason for [...] Parameters Ijeoma Payne, PARVIZ 1720 [facility] [address] Phone: tel: fax: [facility] [address] [address] Phone: tel: fax: Referral ID Status Reason Start Date Expiration Date Visits Re quested Visits Authorized [id number] Closed 12/19/2023 12/18/2024 1 1 Encounter Details Date Type Department Care Team (Late st Contact Info) Description 04/23/2024 7:45 PM EDT Hospital Encounter [facility] [address] [place] [address] Ijeoma Payne, PARVIZ [address] [place] [address] Dementia, unspecified dementia severity, unspecified dementia type, [...] drink = 0.6 oz pur e alcohol) [facility] Utilities Answer Date Recorded In the past 12 months has [email or web address], gas, oil, or water [email or web address] threatened to shut off services in your [...] or training? Not on file Preferred Language Latvian 01/28/2025 PHQ-2 Answer Date Recorded Retired PHQ-9: [...] 7:09 AM EDT Dary Chapin RN * [place] Suicide Severity Rating Scale (Screener/Recent Self-Report) Question Answer Date of Assessment Author 6. Suicidal Behavior (Lifetime) No 7:09 AM EDT Dary Benites RN documented as of this encounter Plan of Treatment Upcoming Encounters Date Type Department Care Team (Late st Contact Info) Description 07/21/2025 11:30 AM EDT Office Visit [facility] UROLOGY 1760 [facility] 502 [place] [address] Sanam Saunders, PARVIZ 1760 [facility] [address] [place] [address] 07/23/2025 10:00 AM EDT Infusion [facility] OUTPATIENT ONCOLOGY [place] 330 [facility] [address] [place] [address] 09/01/2025 11:00 AM EST Office Visit [facility] PULMONARY & CRITICAL CARE MEDICINE 3000 [facility] 240 [place] [address] 09/01/2025 11:30 AM EST Office Visit [facility] PULMONARY & CRITICAL CARE MEDICINE 3000 [facility] 240 [place] [address] Maxine Gibson, BOX TOE STITCHER [address] [place] [address] 09/02/2025 10:00 AM EST Office Visit [facility] UROLOGY [address] [address] Sanam Saunders, BOX TOE STITCHER [address] [address] 09/24/2025 9:15 AM EST Office Visit [facility] RHEUMATOLOGY [address] [address] [address] John Sheppard APRN [address] [address] 02/03/2026 10:45 AM EDT Office Visit [facility] RHEUMATOLOGY [address] [phone] Patrice Santana DO [address] [place] [address] [address] documented as of this encounter Goals Goal [...] Procedure Name Priority Date/Time Associated Diagnosis Comments [facility] Routine 04/24/2024 5:23 AM EDT Dementia, unspecified dementia severity, unspecified dementia type, unspecified whether behavioral, psychotic, or mood disturbance or anxiety Essential hypertension Palpitations Suspected sleep apnea Excessive daytime sleepiness Snoring Nightmares Morning headache Psychophysiological insomnia documented in this encounter Results * [facility] (04/24/2024 5:23 AM EDT) Impressions SLEEP MEDICINE [...] agree with the interpretation. Braden To MD, [facility] Pulmonary Critical care and Sleep medicine [...] None. 8. Bruxism: None. us Ijeoma Payne BOX TOE STITCHER SLEEP CENTER ORDERABLES Fin al Result SLEEP [...] documented as of this encounter Care Teams Tilt Tray Driver Relationship Specialty Start Date End Date Huyen Hall MD [facility] [place] [address] PCP - General Family Medicine 08/21/22 07/25/24 documented as of this encounter
--- OUTSIDE RECORDS SUMMARY | 2025-05-23 13:00 | XMS_ITS | Encounter Summary ---
[facility] Address [address] [place] [address] Care Team Providers Care S3B Multi Sensor Operator Name Role Phone Reza Panchal MD Primary Care Provider +1- [phone] Reason for Visit * Episode Based Medications (Routine) - Closed Specialty Diagnoses / Procedures Referred By Tia holman Referred To Contact Diagnoses Rheumatoid arthritis involving multiple sites with positive rheumatoid factor Procedures [place] GOLIMUMAB FOR IV USE 1MG Patrice Santana DO [address] [employer] [address] [place] [address] Phone: tel: fax: [facility] OUTPATIENT ONCOLOGY [address] [place] [address] Phone: tel: fax: Referral ID Status Reason Start Date Expiration Date Visits Re quested Visits Authorized [id number] Closed 05/06/2024 05/06/2025 1 1 Encounter Details Date Type Department Care Team (Latest Contact Info) Description 05/23/2025 1:00 PM EDT - 05/23/2025 11:59 PM EDT Hospital Encounter [facility] OUTPATIENT ONCOLOGY [address] [place] [address] Patrice Santana DO [address] [employer] [address] [place] [id number] Rheumatoid arthritis involving multiple sites with positive [...] the past 12 months has th e [employer], gas, oil, or water company threatened to [...] minutes. 25 tablet 5 01/03/2024 nystatin (MYCOSTATIN) [id number] UNIT/GM powderIndications:Y east dermatitis,Perineal irritation in female [...] Description 07/21/2025 11:30 AM EDT Office Visit [facility] UROLOGY 1760 [facility] 502 [place] [address] Sanam Saunders, CERTIFIED SURGICAL ASSISTANT [address]60 [facility] [address] [place] [address] 07/23/2025 10:00 AM EDT Infusion [facility] OUTPATIENT ONCOLOGY [place] 330 [facility] 110 [place] [phone] 09/01/2025 11:00 AM EST Office Visit [facility] PULMONARY & CRITICAL CARE MEDICINE 3000 [facility] 240 [place] [address] 09/01/2025 11:30 AM EST Office Visit [facility] PULMONARY & CRITICAL CARE MEDICINE 3000 [facility] [address] [place] [phone] Maxine Gibson, CERTIFIED SURGICAL ASSISTANT [address] [place] [address] 09/02/2025 10:00 AM EST Office Visit [facility] UROLOGY 1760 [facility] 502 [place] [address] Sanam Saunders, CERTIFIED SURGICAL ASSISTANT [address] [address] 09/24/2025 9:15 AM EST Office Visit [facility] RHEUMATOLOGY [address] [place] [address] John Sheppard, CERTIFIED SURGICAL ASSISTANT 330 [facility] 100 [place] [address] 02/03/2026 10:45 AM EDT Office Visit [facility] RHEUMATOLOGY [address] [place] [address] Patrice Santana, DO [facility] [address] [place] [address] documented as of this encounter Goals Goal [...] documented as of this encounter Care Teams S3B Multi Sensor Operator Relationship Specialty Start Date End Date Reza Panchal MD [address] [place] [address] PCP - General Family Medicine 09/30/24 documented as of this encounter
--- OUTSIDE RECORDS SUMMARY | 2025-06-03 10:33 | XMS_ITS | Encounter Summary ---
[facility] Address [address] [place] [address] Care Team Providers Care Rug Scratcher Name Role Phone Reza Panchal MD Primary Care Provider +1- [phone] Reason for Referral * Diagnostic Imaging (Routine) - Closed Specialty Diagnoses / Procedures Referred By Contac t Referred To Contact Radiology Diagnoses Seropositive rheumatoid arthritis High risk medication use Primary osteoarthritis involving multiple joints Age-related osteoporosis without current pathological fracture NSAID long-term use Procedures DEXA Bone Density Axial Patrice Santana DO Phone: tel: fax: [facility] DEXA [address] [address] Phone: tel: Referral ID Status Reason Start Date Expiration Date Visits Re quested Visits Authorized [id number] Closed 01/30/2025 05/01/2026 1 1 Reason for Visit * Diagnostic Imaging (Routine) - Closed Specialty Diagnoses / Procedures Referred By Contac manda Referred To Contact Radiology Diagnoses Seropositive rheumatoid arthritis High risk medication use Primary osteoarthritis involving multiple joints Age-related osteoporosis without current pathological fracture NSAID long-term use Procedures DEXA Bone Density Axial Patrice Santana DO Phone: tel: fax: [facility] RO CROSSING DEXA 610 [facility] [address] [place] [address] Phone: tel: Referral ID Status Reason Start Date Expiration Date Visits Re quested Visits Authorized [id number] Closed 01/30/2025 05/01/2026 1 1 Encounter Details Date Type Department Care Team (Latest Contact Info) Description 06/03/2025 10:33 AM EDT - 06/03/2025 11:59 PM EDT Hospital Encounter [facility] DEXA YOEL [address] [place] [address] Patrice Santana DO [address] [facility] 100 [place] [phone] Seropositive rheumatoid arthritis; High risk medication use; [...] Recorded In the past 12 months has [employer], gas, oil, or water [employer] threatened to shut off services in your [...] or training? Not on file Preferred Language Serbian 01/28/2025 PHQ-2 Answer Date Recorded Retired PHQ-9: [...] minutes. 25 tablet 5 01/03/2024 nystatin (MYCOSTATIN) [id number] UNIT/GM powderIndications:Y east dermatitis,Perineal irritation in female [...] Description 07/21/2025 11:30 AM EDT Office Visit [facility] UROLOG[facility] 1760 [facility] [address] [place] [address] Sanam Saunders, FUNCTIONAL TESTER TYPEWRITERS 1766 [facility] 502 [place] [address] 07/23/2025 10:00 AM EDT Infusion [facility] OUTPATIENT ONCOLOGY [address] [place] [address] 09/01/2025 11:00 AM EST Office Visit [facility] PULMONARY & CRITICAL CARE MEDICINE 3000 [facility] 240 [place] [address] 09/01/2025 11:30 AM EST Office Visit [facility] PULMONARY & CRITICAL CARE MEDICINE 3000 [facility] 240 [place] [address] Maxine Gibson, FUNCTIONAL TESTER TYPEWRITERS 2400 [place] [address] 09/02/2025 10:00 AM EST Office Visit [facility] 1760 [facility] [address] [place] [address] Sanam Saunders, FUNCTIONAL TESTER TYPEWRITERS 1767 [facility] 502 [place] [address] 09/24/2025 9:15 AM EST Office Visit [facility] RHEUMATOLOGY 330 [facility] 100 [place] [address] John Sheppard APRN 330 [facility] 100 [place] [address] 02/03/2026 10:45 AM EDT Office Visit [facility] RHEUMATOLOGY 330 [facility] 100 [place] [address] Patrice Santana, 330 [facility] 100 [place] [address] documented as of this encounter Goals [...] fall-prevention measurements. The National Osteoporosis Foundation recommends (http://www.nof.org/hcp/practice/jjfriagr-dxt-snfqkmlx-guidelines/clinicians-christine de) that FDA-approved medical therapies be considered [...] the left hip with 95% confidence is 0.866673 gm/cm2 at the hip and 0.184135 g/cm2 at the lumbar spine. Report dictated by: Kiah Weston PA-c I have personally reviewed this case and agree with the findings above: Electronically Signed: Julito Kirkland MD 06/03/2025 4:39 PM EDT Workstation ID: [id number] Narrative 06/03/2025 4:39 PM EDT DUAL-ENERGY X-RAY [...] normal patients. According to criteria established by the[facility], patients with T-scores between [...] exercises and fall-prevention measurements. The NationalOsteoporosis Foundation recommends(http://www.nof.org/hcp/practice/ikjxlkjt-wag-ezyxevlk-guidelines/clin ician s-guide) that FDA-approved medical therapies be [...] at the left hipwith 95% confidence is 0.864510 gm/cm2 at the hip and 0.376761 g/cm2 atthe lumbar spine. Report dictated by: Kiah Weston PA-c I have personally reviewed this case and agree with the findings above: Electronically Signed: Julito Kirkland MD 06/03/2025 4:39 PM EDT Workstation ID: [id number] Patrice Santana DO IMG DXA ORDERABLES Fin [...] documented as of this encounter Care Teams Rug Scratcher Relationship Specialty Start Date End Date Reza Panchal MD [address] [place] [address] PCP - General Family Medicine 09/30/24 documented as of this encounter
--- OUTSIDE RECORDS SUMMARY | 2025-06-05 10:45 | XMS_ITS | Encounter Summary ---
Author Organization [facility] Address [address] [place] [address] Care Team Providers Care Trial Consultant Name Role Phone Reza Panchal MD Primary Care Provider +1- [phone] Reason for Visit * Reason Comments Seropositive rheumatoid arthritis Encounter Details Date Type Department Care Team (Latest Contact Info) Description 06/05/2025 10:45 AM EDT Office Visit [facility] RHEUMATOLOGY [address] [address] John Sheppard APRN [address] [phone] Seropositive rheumatoid arthritis (Primary Dx); High risk [...] In the past 12 months has e [employer], gas, oil, or water company threatened [...] or training? Not on file Preferred Language Yi 01/28/2025 PHQ-2 Answer Date Recorded Retired PHQ-9: [...] done before next visit. Reviewed labs from [facility]. Labs also requested. * John Sheppard APRN [...] Reyna 2nd Gen 32G X 4 MM [facility], USE 1 NEEDLE THREE TIMES DAILY DIRECTED, [...] Disp: 25 tablet, Rfl: 5 nystatin (MYCOSTATIN) [id number] UNIT/GM powder, Apply topically to the appropriate [...] done before next visit. Reviewed labs from [facility]. Labs also requested. High risk medication use [...] Santana, MICH Sheppard APRN. John Sheppard APRN [facility] [place] documented in this encounter Plan of Treatment Upcoming Encounters Date Type Department Care Team (Late st Contact Info) Description 07/21/2025 11:30 AM EDT Office Visit [facility] UROLOGY 1760 [facility] 502 [place] [phone] Sanam Saunders APRN 1760 [facility] [address] [place] [phone] 07/23/2025 10:00 AM EDT Infusion [facility] OUTPATIENT ONCOLOGY [place] [address] [place] [address] [place] [address] 09/01/2025 11:00 AM EST Office Visit [facility] PULMONARY & CRITICAL CARE MEDICINE 3000 [facility] [address] [place] [phone] 09/01/2025 11:30 AM EST Office Visit [facility] PULMONARY & CRITICAL CARE MEDICINE 3000 [facility] [address] [place] [address] Maxine Gibson APRN [address] [place] [address] 09/02/2025 10:00 AM EST Office Visit [facility] UROLOGY 1760 [facility] [address] [place], [place] [phone] Sanam Saunders APRN 1760 [facility] [address] [place], [place] [address] 09/24/2025 9:15 AM EST Office Visit [facility] RHEUMATOLOGY [address] [place] [address] [address] John Sheppard APRN [address] [phone] 02/03/2026 10:45 AM EDT Office Visit [facility] RHEUMATOLOGY [address] [place] [address] [address] Patrice Santana DO [address] [phone] documented as of this encounter Goals Goal [...] Hepatitis Panel, Acute (07/08/2025 9:03 AM EDT) Pathologist [facility] Hepatitis B Surface Ag Non-Reacti ve Non-Reacti ve 07/08/2025 3:12 PM EDT [facility] Hep A IgM Non-Reacti ve Non-Reacti ve 07/08/2025 3:12 PM EDT [facility] Hep B C IgM Non-Reacti ve Non-Reacti ve 07/08/2025 3:12 PM EDT [facility] Hepatitis C Ab Non-Reacti ve Non-Reacti ve 07/08/2025 3:12 PM EDT [facility] Blood Venipuncture / Unknown 07/08/2025 9:03 AM EDT 07/08/2025 9:03 AM EDT Narrative [facility] - 07/08/2025 3:12 PM EDT Results may be falsely decreased if patient taking Biotin. us John Sheppard APRN LAB BLOOD ORDERABLES F inal Result [facility]
[address] [place] [address], * Sedimentation Rate (07/08/2025 9:03 AM EDT) Sed Rate 28 0 - 30 mm/hr 07/08/2025 2:36 PM EDT [facility] Blood Venipuncture / Unknown 07/08/2025 9:03 AM EDT 07/08/2025 9:03 AM EDT FloraCliff Sheppard APRN LAB BLOOD ORDERABLES F inal Result Performing Organization Address City/[facility]/ZIP Co de Phone Number [facility]
[address] [place] [address], * C-reactive Protein (07/08/2025 9:03 AM EDT) C-Reactive Protein 0.30 0.00 - 0.50 mg/dL 07/08/2025 2:56 PM EDT [facility] Blood Venipuncture / Unknown 07/08/2025 9:03 AM EDT 07/08/2025 9:03 AM EDT John Sheppard APRN LAB BLOOD ORDERABLES F inal Result Performing Organization Address City/[facility]/ZIP Co de Phone Number [facility]
[address] [place] [address], * (ABNORMAL) Comprehensive Metabolic Panel (07/08/2025 9:03 AM EDT) Glucose 194(H) 65 - 99 mg/dL 07/08/2025 2:56 PM EDT [facility] BUN 12.0 8.0 - 23.0 mg/dL 07/08/2025 2:56 PM EDT [facility] Creatinine 0.74 0.57 - 1.00 mg/dL 07/08/2025 2:56 PM EDT [facility] Sodium 138 136 - 145 mmol/L 07/08/2025 2:56 PM EDT [facility] Potassium 4.0 3.5 - 5.2 mmol/L 07/08/2025 2:56 PM EDT [facility] Chloride 100 98 - 107 mmol/L 07/08/2025 2:56 PM [facility] CO2 22.7 22.0 - 29.0 mmol/L 07/08/2025 2:56 PM [facility] Calcium 9.1 8.6 - 10.5 mg/dL 07/08/2025 2:56 PM [facility] Total Protein 7.4 6.0 - 8.5 g/dL 07/08/2025 2:56 PM T [facility] Albumin 3.9 3.5 - 5.2 g/dL 07/08/2025 2:56 PM [facility] ALT (SGPT) 18 1 - 33 U/L 07/08/2025 2:56 PM [facility] AST (SGOT) 17 1 - 32 U/L 07/08/2025 2:56 PM [facility] Alkaline Phosphatase 101 39 - 117 U/L 07/08/2025 2:56 PM [facility] Total Bilirubin 0.2 0.0 - 1.2 mg/dL 07/08/2025 2:56 PM [facility] Globulin 3.5 gm/dL 07/08/2025 2:56 PM [facility] A/G Ratio 1.1 g/dL 07/08/2025 2:56 PM [facility] BUN/Creatinine Ratio 16.2 7.0 - 25.0 07/08/2025 2:56 PM [facility] Anion Gap 15.3(H) 5.0 - 15.0 mmol/L 07/08/2025 2:56 PM [facility] eGFR 88.3 >60.0 mL/min/1.7 3 07/08/2025 2:56 PM [facility] Blood Venipuncture / Unknown 07/08/2025 9:03 AM EDT 07/08/2025 9:03 AM T [facility] - [...] not include race as a factor us John Sheppard CUPOLA TENDER HELPER LAB BLOOD ORDERABLES F inal Result [facility]
[address] [place] [address], documented in this encounter Visit Diagnoses Diagnosis [...] documented as of this encounter Care Teams Trial Consultant Relationship Specialty Start Date End Date Reza Panchal MD [address] [place] [address] PCP - General Family Medicine 09/30/24 documented as of this encounter
--- OUTSIDE RECORDS SUMMARY | 2025-06-13 10:00 | XMS_ITS | Encounter Summary ---
Author Organization [facility] Address [address] [place] [address] Care Team Providers Care Open Tenter Operator Name Role Phone Reza Panchal MD Primary Care Provider +1- [phone] Reason for Visit * Reason Comments Infection due to 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 toxin-pr oducing Escherichia FOLLOW UP UTIs/LUTS/OAB Encounter Details Date Type Department Care Team (Late st Contact Info) Description 06/13/2025 10:00 AM EDT Office Visit [facility] UR[facility] [address] [place] [address] Sanam Saunders APRN 1760 [facility] [address] [place] [address] Infection due to 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 toxin-producing Escherichia coli (E.coli) (Primary Dx); Lower urinary tract symptoms (LUTS) Social History Tobacco Use Types Packs/Day Years Used Date Smoking Tobacco: Never Passive Smoke Exposure: Past Smokeless Tobacco: Never Comments: smokes, for 45 years Alcohol Use Standard Drinks/Week Comments No 0 (1 standard drink = 0.6 oz pur e alcohol) [facility] Utilities Answer Date Recorded In the past 12 months has [employer] electric, gas, oil, or water company threatened [...] through Care Everywhere. * Urinary Frequency Adult (North Korean) * Urinary Incontinence: What to Know ([place] Korean) * Overactive Bladder in Adults: What to Know (North Korean) documented in this encounter Progress Notes * Sanam Saunders APRN - 06/13/2025 10:00 AM EDT Images from the original note were not included. Chief Complaint Infection due to 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 toxin-producing Escherichia (FOLLOW UP UTIs/LUTS/OAB) Subjective [place] Castellanos presents to [facility] for UTI/OAB/LUTS History of Present Illness [...] month since her last consultation with the airport representative for her neuromodulation device. She has [...] Clarity, UA 06/13/2025 Clear Clear Final Specific [place] 06/13/2025 1.010 1.005 - 1.030 Final pH, [...] 05/14/2025 Slightly Cloudy (A) Clear Final Specific [place] 05/14/2025 1.015 1.005 - 1.030 Final pH, [...] is advised to contact the neuromodulation device airport representative for any device-related concerns. Follow-up She [...] of this note may be an electronic master coastal waters/translation of spoken language to printed text using the Sebacia Dictation System. Patient or patient airport representative verbalized consent for the use of Ambient Listening during the visit with Sanam Saunders APRN for chart documentation. 06/17/2025 22:57 EDT documented in this encounter Plan of Treatment Upcoming Encounters Date Type Department Care Team (Late st Contact Info) Description 07/21/2025 11:30 AM EDT Office Visit [facility] 1760 [facility] 502 [place] [address] Sanam Saunders APRN [address] [address] 07/23/2025 10:00 AM EDT Infusion [facility] OUTPATIENT ONCOLOGY [place] 330 [facility] [place] [address] [place] [address] 09/01/2025 11:00 AM EST Office Visit [facility] PULMONARY & CRITICAL CARE MEDICINE 3000 [facility] 240 [place] [address] 09/01/2025 11:30 AM EST Office Visit [facility] PULMONARY & CRITICAL CARE MEDICINE 3000 [facility] 240 [place] [address] Maxine Gibson APRN [address] [place] [address] 09/02/2025 10:00 AM EST Office Visit [facility] 1760 [facility] 502 [place] [address] Sanam Saunders APRN [address] [address] 09/24/2025 9:15 AM EST Office Visit [facility] RHEUMATOLOGY [address] [address] John Sheppard APRN [address] [address] 02/03/2026 10:45 AM EDT Office Visit [facility] RHEUMATOLOG[facility] [address] [address] Patrice Santana DO [address] [id number] documented as of this encounter Goals Goal [...] Color Yellow Yellow, Straw, Dark Yellow, Ann [facility] Clarity, UA Clear Clear [facility] Specific [place] 1.010 1.005 - 1.030 [facility] pH, Urine 7.5 5.0 - 8.0 [facility] Leukocytes Negative Negative [facility] Nitrite, UA Negative Negative [facility] Protein, POC Negative Negative mg/dL [facility] Glucose, UA Negative Negative mg/dL [facility] Ketones, UA Negative Negative [facility] Urobilinogen, UA Normal Normal, 0.2 E.U./dL [facility] Bilirubin Negative Negative [facility] Blood, UA Negative Negative [facility] Lot Number [id number] [facility] Expiration Date 11/08/2026 [facility] Urine 06/13/2025 10:0 7 AM EDT Sanam Saunders APRN POINT OF CARE TEST ORDE VOLODYMYR Final Result [facility]
[address] [place] [address], * Urine Culture - Urine, Urine, Clean Catch (06/13/2025 9:55 AM EDT) Urine Culture No growth DICK 06/15/2025 4:46 AM EDT [facility] Urine Urine specimen obtained by clean catch procedure / Unknown Collection / Unknown 06/13/2025 9:55 AM EDT 06/13/2025 9:55 AM EDT Sanam Saunders APRN MICROBIOLOGY - GENERAL ORDERABLES Final Result [facility]
[address] [place] [address], documented in this encounter Visit Diagnoses Diagnosis Infection due to 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 toxin-producing Escherichia coli (E.coli)- Primary Lower urinary tract symptoms (LUTS) documented in this encounter Additional Health Concerns Infection Onset Date Last Indicated Resolved Time Hepatitis A 04/12/2024 04/12/2024 Assessment Noted Time PHQ-2 Depression Total Score: 1 05/20/20 24 11:00 AM EDT documented as of this encounter Care Teams Open Tenter Operator Relationship Specialty Start Date End Date Reza Panchal MD [facility] [place] [address] PCP - General Family Medicine 09/30/24 documented as of this encounter
--- OUTSIDE RECORDS SUMMARY | 2025-07-08 09:05 | XMS_ITS | Encounter Summary ---
[facility] Address [address] [place] [address] Care Team Providers Care Audio Visual Facilities Engineer Name Role Phone Reza Panchal MD Primary Care Provider [phone]- [phone] Encounter Details Date Type Department Care Team (Late st Contact Info) Description 07/08/2025 9:05 AM EDT Lab [facility] [place] [address] [address] [place] [address] Seropositive rheumatoid arthritis; High risk [...] Recorded In the past 12 months has [employer], gas, oil, or water [employer] threatened to shut off services in your [...] Description 07/21/2025 11:30 AM EDT Office Visit [facility] UROLOGY [address] [facility] [address] [place] [address] Sanam Saunders, MANAGER KNOWLEDGE 1760 [facility] [address] [place] [address] 07/23/2025 10:00 AM EDT Infusion [facility] [address] [place] [phone] 09/01/2025 11:00 AM EST Office Visit [facility] PULMONARY & CRITICAL CARE MEDICINE [address] [facility] 240 [place] [phone] 09/01/2025 11:30 AM EST Office Visit [facility] PULMONARY & CRITICAL CARE MEDICINE [address] [facility] [address] [place] [phone] Maxine Gibson, MANAGER KNOWLEDGE [address] [place] [address] 09/02/2025 10:00 AM EST Office Visit [facility] UROLOGY 1760 [facility] 502 [place] [address] Sanam Saunders, MANAGER KNOWLEDGE 17[address] [facility] [address] [place] [address] 09/24/2025 9:15 AM EST Office Visit [facility] RHEUMATOLOGY [address] [facility] 100 [place] [phone] John Sheppard APRN [address] [facility] 100 [place] [address] 02/03/2026 10:45 AM EDT Office Visit [facility] RHEUMATOLOGY [address] [place] [address] Patrice Santana, [address] [place] [address] documented as of this encounter Goals Goal [...] CBC Auto Differential (07/08/2025 9:03 AM EDT) [facility] WBC 7.14 3.40 - 10.80 10*3/mm3 07/08/2025 2:34 PM EDT [facility] RBC 3.74(L) 3.77 - 5.28 10*6/mm3 07/08/2025 2:34 PM EDT [facility] Hemoglobin 10.7(L) 12.0 - 15.9 g/dL 07/08/2025 2:34 PM EDT [facility] Hematocrit 34.2 34.0 - 46.6 % 07/08/2025 2:34 PM EDT [facility] MCV 91.4 79.0 - 97.0 fL 07/08/2025 2:34 PM EDT [facility] MCH 28.6 26.6 - 33.0 pg 07/08/2025 2:34 PM EDT [facility] MCHC 31.3(L) 31.5 - 35.7 g/dL 07/08/2025 2:34 PM EDT [facility] RDW 12.7 12.3 - 15.4 % 07/08/2025 2:34 PM EDT [facility] RDW-SD 42.3 37.0 - 54.0 fl 07/08/2025 2:34 PM [facility] MPV 10.2 6.0 - 12.0 fL 07/08/2025 2:34 PM [facility] Platelets 255 140 - 450 10*3/mm3 07/08/2025 2:34 PM [facility] Neutrophil % 49.5 42.7 - 76.0 % 07/08/2025 2:34 PM [facility] Lymphocyte % 31.8 19.6 - 45.3 % 07/08/2025 2:34 PM [facility] Monocyte % 14.6(H) 5.0 - 12.0 % 07/08/2025 2:34 PM [facility] Eosinophil % 3.1 0.3 - 6.2 % 07/08/2025 2:34 PM [facility] Basophil % 0.4 0.0 - 1.5 % 07/08/2025 2:34 PM [facility] Immature Grans % 0.6(H) 0.0 - 0.5 % 07/08/2025 2:34 PM [facility] Neutrophils, Absolute 3.54 1.70 - 7.00 10*3/mm3 07/08/2025 2:34 PM [facility] Lymphocytes, Absolute 2.27 0.70 - 3.10 10*3/mm3 07/08/2025 2:34 PM [facility] Monocytes, Absolute 1.04(H) 0.10 - 0.90 10*3/mm3 07/08/2025 2:34 PM [facility] Eosinophils, Absolute 0.22 0.00 - 0.40 10*3/mm3 07/08/2025 2:34 PM [facility] Basophils, Absolute 0.03 0.00 - 0.20 10*3/mm3 07/08/2025 2:34 PM [facility] Immature Grans, Absolute 0.04 0.00 - 0.05 10*3/mm3 07/08/2025 2:34 PM EDT [facility] nRBC 0.0 0.0 - 0.2 /100 WBC 07/08/2025 2:34 PM EDT [facility] Blood Venipuncture / Unknown 07/08/2025 9:03 AM EDT 07/08/2025 9:03 AM EDT John Sheppard [facility] LAB BLOOD ORDERABLES F inal Result Performing Organization Address City/[facility]/ZIP Co de Phone Number [facility]
[address] [place] [address], [place] [phone] * Hepatitis Panel, Acute (07/08/2025 9:03 AM EDT) [facility] Hepatitis B Surface Ag Non-Reacti ve Non-Reacti ve 07/08/2025 3:12 PM EDT [facility] Hep A IgM Non-Reacti ve Non-Reacti ve 07/08/2025 3:12 PM EDT [facility] Hep B C IgM Non-Reacti ve Non-Reacti ve 07/08/2025 3:12 PM EDT [facility] Hepatitis C Ab Non-Reacti ve Non-Reacti ve 07/08/2025 3:12 PM EDT [facility] Blood Venipuncture / Unknown 07/08/2025 9:03 AM EDT 07/08/2025 9:03 AM EDT Narrative [facility] - 07/08/2025 3:12 PM EDT Results may be falsely decreased if patient taking Biotin. John Sheppard APRN LAB BLOOD ORDERABLES F inal Result Performing Organization Address City/[facility] Co de Phone Number [facility]
[address] [place] [address], [place] [phone] * Sedimentation Rate (07/08/2025 9:03 AM EDT) [facility] Sed Rate 28 0 - 30 mm/hr 07/08/2025 2:36 PM EDT [facility] Blood Venipuncture / Unknown 07/08/2025 9:03 AM EDT 07/08/2025 9:03 AM EDT FloraCliff Sheppard MANAGER KNOWLEDGE LAB BLOOD ORDERABLES F inal Result Performing Organization Address City/[facility]/ZIP Co de Phone Number [facility]
[address] [place] [address], * C-reactive Protein (07/08/2025 9:03 AM EDT) [facility] C-Reactive Protein 0.30 0.00 - 0.50 mg/dL 07/08/2025 2:56 PM EDT [facility] Blood Venipuncture / Unknown 07/08/2025 9:03 AM EDT 07/08/2025 9:03 AM EDT FloraCliff Sheppard MANAGER KNOWLEDGE LAB BLOOD ORDERABLES F inal Result Performing Organization Address City/[facility] Co de Phone Number [facility]
[address] [place] [address], * (ABNORMAL) Comprehensive Metabolic Panel (07/08/2025 9:03 AM EDT) [facility] Glucose 194(H) 65 - 99 mg/dL 07/08/2025 2:56 PM EDT [facility] BUN 12.0 8.0 - 23.0 mg/dL 07/08/2025 2:56 PM EDT [facility] Creatinine 0.74 0.57 - 1.00 mg/dL 07/08/2025 2:56 PM EDT [facility] Sodium 138 136 - 145 mmol/L 07/08/2025 2:56 PM EDT [facility] Potassium 4.0 3.5 - 5.2 mmol/L 07/08/2025 2:56 PM [facility] Chloride 100 98 - 107 mmol/L 07/08/2025 2:56 PM [facility] CO2 22.7 22.0 - 29.0 mmol/L 07/08/2025 2:56 PM [facility] Calcium 9.1 8.6 - 10.5 mg/dL 07/08/2025 2:56 PM [facility] Total Protein 7.4 6.0 - 8.5 g/dL 07/08/2025 2:56 PM [facility] Albumin 3.9 3.5 - 5.2 g/dL 07/08/2025 2:56 PM [facility] ALT (SGPT) 18 1 - 33 U/L 07/08/2025 2:56 PM [facility] AST (SGOT) 17 1 - 32 U/L 07/08/2025 2:56 PM [facility] Alkaline Phosphatase 101 39 - 117 U/L 07/08/2025 2:56 PM [facility] Total Bilirubin 0.2 0.0 - 1.2 mg/dL 07/08/2025 2:56 PM [facility] Globulin 3.5 gm/dL 07/08/2025 2:56 PM [facility] A/G Ratio 1.1 g/dL 07/08/2025 2:56 PM [facility] BUN/Creatinine Ratio 16.2 7.0 - 25.0 07/08/2025 2:56 PM [facility] Anion Gap 15.3(H) 5.0 - 15.0 mmol/L 07/08/2025 2:56 PM [facility] eGFR 88.3 >60.0 mL/min/1.7 3 07/08/2025 2:56 PM [facility] Blood Venipuncture / Unknown 07/08/2025 9:03 AM EDT 07/08/2025 9:03 AM EDT Narrative [facility] - 07/08/2025 2:56 PM EDT GFR [...] race as a factor us John Sheppard MANAGER KNOWLEDGE LAB BLOOD ORDERABLES F inal Result [facility]
[address] [place] [address], documented in this encounter Visit Diagnoses Diagnosis Seropositive rheumatoid arthritis High risk medication use Fatigue, unspecified type documented in this encounter Additional Health Concerns Infection Onset Date Last Indicated Resolved Time Hepatitis A 04/12/2024 04/12/2024 Assessment Noted Time PHQ-2 Depression Total Score: 1 05/20/20 24 11:00 AM EDT documented as of this encounter Care Teams Audio Visual Facilities Engineer Relationship Specialty Start Date End Date Reza Panchal MD [address] [place] [address] PCP - General Family Medicine 09/30/24 documented as of this encounter
--- OUTSIDE RECORDS SUMMARY | 2025-07-09 09:00 | XMS_ITS | Encounter Summary ---
[facility] Address [address] [place] [address] Care Team Providers Care Alliances Consultant Name Role Phone Reza Panchal MD Primary Care Provider +1- [phone] Reason for Visit * Infusion (Routine) - Closed Specialty Diagnoses / Procedures Referred By Tia holman Referred To Contact Oncology Diagnoses Age-related osteoporosis without current pathological fracture Procedures [place] OFFICE/OUTPATIENT NEW MODERATE MDM 45 MINUTES John Sheppard APRN [address] [place] [address] Phone: tel: fax: [facility] OUTPATIENT ONCOLOGY [place] [address] [place] [address] Phone: tel: fax: Referral ID Status Reason Start Date Expiration Date V isits Requested Visits Authorized [id number] Closed Specialty Services Required 06/05/2025 09/04/2026 1 1 Encounter Details Date Type Department Care Team (Late st Contact Info) Description 07/09/2025 9:00 AM EDT Infusion [facility] OUTPATIENT ONCOLOGY [place] [address] [place] [address] Age-related osteoporosis without current pathological [...] Description 07/21/2025 11:30 AM EDT Office Visit [facility] UROLOGY [address]60 [place] [address] Sanam Saunders APRN 1760 [facility] [address] [place] [address] 07/23/2025 10:00 AM EDT Infusion [facility] OUTPATIENT ONCOLOGY [place] [address] [place] [address] 09/01/2025 11:00 AM EST Office Visit [facility] PULMONARY & CRITICAL CARE MEDICINE 3000 [facility] [address] [place] [address] 09/01/2025 11:30 AM EST Office Visit [facility] PULMONARY & CRITICAL CARE MEDICINE 3000 [facility] [address] [place] [address] Maxine Gibson, COLOR EXPERT [address]00 [place] [address] 09/02/2025 10:00 AM EST Office Visit [facility] UROLOGY 1760 [facility] 502 [place] [address] Sanam Saunders, COLOR EXPERT 1760 [facility] [address] [place], [place] [address] 09/24/2025 9:15 AM EST Office Visit [facility] RHEUMATOLOGY [address] [place] [address] John Sheppard APRN 330 [facility] 100 [place], [place] [address] 02/03/2026 10:45 AM EDT Office Visit [facility] RHEUMATOLOGY [address] [place] [address] Patrice Santana DO [address] [facility] 100 [place], [place] [address] documented as of this encounter Goals Goal [...] at 1030, For 1 dose, Group 2 ([place]) Hazardous Drug - Reproductive Risk Only - See Handling GuideIndications:Age-related osteoporosis without current pathological fracture New Bag 07/09/2025 10:03 AM EDT 5 mg 400 mL/hr documented in this encounter Additional Health Concerns Infection Onset Date Last Indicated Resolved Time Hepatitis A 04/12/2024 04/12/2024 Assessment Noted Time PHQ-2 Depression Total Score: 1 05/20/20 11:00 AM EDT documented as of this encounter Care Teams Alliances Consultant Relationship Specialty Start Date End Date Reza Panchal MD [address] [place] [address] PCP - General Family Medicine 09/30/24 documented as of this encounter
[2025-07-18] VITALS (7 sets, daily range): BP systolic 121–144; BP diastolic 67–83; PULSE 74–100; RESP 18–28; TEMP 36.6; O2SAT 95–99; BMI 39.2
--- NOTE | 2025-07-18 09:32 | ECG_ITS ---
APPROVED REPORT Exam: Resting ECG HR:84 bpm ECG Measurements Heart Rate 84 AXES CA 151 P 42 QRSd 86 QRS -4 QT 384 T 26 QTc 425 Conclusion Normal sinus rhythm Normal axis Normal intervals No STEMI Electronically signed by : Mio Cuenca, 07/18/2025 16:10:49
--- OUTSIDE RECORDS SUMMARY | 2025-07-18 09:35 | XMS_ITS | Encounter Summary ---
[facility] Organization [facility] Address [address] [place] [address] Care Team Providers Care Floorworker Name Role Phone Reza Panchal MD Primary Care Provider +1- [phone] Reason for Visit * Reason Onset Date Comments Shortness of Breath 07/14/2025 Encounter Details Date Type Department Care Team (Late st Contact Info) Description 07/14/[address] [facility] PULMONARY & CRITICAL CARE MEDICINE 3000 [facility] 240 [place] [address] Maxine Gibson, PRESS OPERATOR [employer] [address] [place] [address] Shortness of Breath Social History Tobacco Use Types Packs/Day Years Used Date Smoking Tobacco: Never Passive Smoke Exposure: Past Smokeless Tobacco: Never Comments: smokes, for 45 years Alcohol Use Standard Drinks/Week Comments No 0 (1 standard drink = 0.6 oz pur e alcohol) [facility] Utilities Answer Date Recorded In the past 12 months has [employer] gas, oil, or water company threatened to [...] Description 07/21/2025 11:30 AM EDT Office Visit [facility] UROLOGY [facility] 502 [place] [address] Sanam Saunders, PARVIZ 1760 [facility] [address] [place], [place] [address] 07/23/2025 10:00 AM EDT Infusion [facility] OUTPATIENT ONCOLOGY [place] [address] [place] [address] [place] [address] 09/01/2025 11:00 AM EST Office Visit [facility] PULMONARY & CRITICAL CARE MEDICINE 3000 [facility] [place] [address] [place] [address] 09/01/2025 11:30 AM EST Office Visit [facility] PULMONARY & CRITICAL CARE MEDICINE 3000 [facility] [place] [address] [place] [address] Maxine Gibson, PRESS OPERATOR [employer] 2400 [place] [address] 09/02/2025 10:00 AM EST Office Visit [facility] UROLOGY 1760 [facility] 502 [place] [address] Sanam Saunders, PRESS OPERATOR [employer] 1760 [facility] [address] [place], [place] [address] 09/24/2025 9:15 AM EST Office Visit [facility] RHEUMATOLOGY [address] [phone] John Sheppard, PRESS OPERATOR [employer] [address] [phone] 02/03/2026 10:45 AM EDT Office Visit [facility] RHEUMATOLOGY [address] [place] [address] [phone] Patrice Santana, DO [address] [phone] documented as of this encounter Goals Goal [...] documented as of this encounter Care Teams Floorworker Relationship Specialty Start Date End Date Reza Panchal MD [address] [place] [address] PCP - General Family Medicine 09/30/24 documented as of this encounter
--- OUTSIDE RECORDS SUMMARY | 2025-07-18 09:35 | XMS_ITS | Encounter Summary ---
Author Organization [facility] Address [address] [place] [address] Care Team Providers Care Director Of Customer Service Name Role Phone Reza Panchal MD Primary Care Provider +1- [phone] Encounter Details Date Type Department Care Team [...] Description 07/21/2025 11:30 AM EDT Office Visit [facility] UROLOGY 1760 [facility] 502 [place] [address] Sanam Saunders, MILLINERY WORKER 1760 [facility] [address] [place] [address] 07/23/2025 10:00 AM EDT Infusion [facility] OUTPATIENT ONCOLOGY [address] [place] [phone] 09/01/2025 11:00 AM EST Office Visit [facility] PULMONARY & CRITICAL CARE MEDICINE 3000 [facility] 240 [place] [address] 09/01/2025 11:30 AM EST Office Visit [facility] PULMONARY & CRITICAL CARE MEDICINE 3000 [facility] 240 [place] [address] Maxine Gibson, MILLINERY WORKER 2400 [place] [address] 09/02/2025 10:00 AM EST Office Visit [facility] UROLOGY 1760 [facility] 502 [place] [address] Sanam Saunders, MILLINERY WORKER 1760 [facility] [address] [place] [address] 09/24/2025 9:15 AM EST Office Visit [facility] RHEUMATOLOGY 330 [facility] 100 [place] [address] John Sheppard APRN 330 [facility] 100 [place] [address] 02/03/2026 10:45 AM EDT Office Visit [facility] RHEUMATOLOGY 330 [facility] 100 [place] [address] Patrice SantanaDO Dillon [address] [place] [address] documented as of this encounter Goals Goal [...] of this encounter Care Teams Director Of Customer Service Relationship Specialty Start Date End Date Reza Panchal MD 1210 [place] [address] PCP - General Family Medicine 09/30/24 documented as of this encounter
--- OUTSIDE RECORDS SUMMARY | 2025-07-18 09:35 | XMS_ITS | Encounter Summary ---
[facility] Organization [facility] Address [address] [place] [address] Care Team Providers Care Mix House Tender Name Role Phone Reza Panchal MD Primary Care Provider +1- [phone] Encounter Details Date Type Department Care Team (Late st Contact Info) Description 07/08/2025 Results Follow-Up [facility] [place] 3000 [facility] 140 [place] [address] John Sheppard APRN 330 [facility] [address] [place], [place] [phone] Social History Tobacco Use Types Packs/Day Years Used Date Smoking Tobacco: Never Passive Smoke Exposure: Past Smokeless Tobacco: Never Comments: smokes, for 45 years Alcohol Use Standard Drinks/Week Comments No 0 (1 standard drink = 0.6 oz pur e alcohol) [facility] Utilities Answer Date Recorded In the past 12 months has [employer], gas, oil, or water company threatened [...] or training? Not on file Preferred Language Chadian 01/28/2025 PHQ-2 Answer Date Recorded Retired PHQ-9: [...] Description 07/21/2025 11:30 AM EDT Office Visit [facility] UROLOGY 1760 [facility] 502 [place] [address] Sanam Saunders, LUDLOW MACHINE OPERATOR 1760 [facility] [address] [place] [address] 07/23/2025 10:00 AM EDT Infusion [facility] OUTPATIENT ONCOLOGY [address] [place] [address] 09/01/2025 11:00 AM EST Office Visit [facility] PULMONARY & CRITICAL CARE MEDICINE 3000 [facility] 240 [place] [address] 09/01/2025 11:30 AM EST Office Visit [facility] PULMONARY & CRITICAL CARE MEDICINE 3000 [facility] 240 [place] [address] Maxine Gibson, LUDLOW MACHINE OPERATOR 2400 [place] [address] 09/02/2025 10:00 AM EST Office Visit [facility] UROLOGY 1760 [facility] [address] [place] [address] Sanam Saunders, LUDLOW MACHINE OPERATOR 1767 [facility] 502 [place] [address] 09/24/2025 9:15 AM EST Office Visit [facility] RHEUMATOLOGY [address] [place] [address] John Sheppard, LUDLOW MACHINE OPERATOR 330 [facility] 100 [place] [address] 02/03/2026 10:45 AM EDT Office Visit [facility] RHEUMATOLOGY 330 [facility] 100 [place] [address] Patrice Santana DO 330 [facility] 100 [place], [place] [phone] documented as of this encounter Goals Goal [...] documented as of this encounter Care Teams Mix House Tender Relationship Specialty Start Date End Date Reza Panchal MD [address] [place] [address] PCP - General Family Medicine 09/30/24 documented as of this encounter
--- OUTSIDE RECORDS SUMMARY | 2025-07-18 09:35 | XMS_ITS | Encounter Summary ---
Author Organization [facility] Address [address] [place] [address] Care Team Providers Care Photographic Equipment Mechanic Name Role Phone Reza Panchal MD Primary Care Provider +1- [phone] Encounter Details Date Type Department Care Team (Late st Contact Info) Description 07/08/2025 Results Follow-Up [facility] RHEUMATOLOGY [address] [address] John Sheppard APRN [address] [phone] Social History Tobacco Use Types Packs/Day Years Used Date Smoking Tobacco: Never Passive Smoke Exposure: Past Smokeless Tobacco: Never Comments: smokes, for 45 years Alcohol Use Standard Drinks/Week Comments No 0 (1 standard drink = 0.6 oz pur e alcohol) [facility] Utilities Answer Date Recorded In the past 12 months has [employer] electric, gas, oil, or water company threatened [...] or training? Not on file Preferred Language Nigerian 01/28/2025 PHQ-2 Answer Date Recorded Retired PHQ-9: [...] Description 07/21/2025 11:30 AM EDT Office Visit [facility] UROLOGY 1760 [facility] 502 [place] [address] Sanam Saunders, MARBLE WORKER 1760 [facility] [address] [place] [address] 07/23/2025 10:00 AM EDT Infusion [facility] OUTPATIENT ONCOLOGY [place] 330 [facility] 110 [place] [address] 09/01/2025 11:00 AM EST Office Visit [facility] PULMONARY & CRITICAL CARE MEDICINE 3000 [facility] 240 [place] [address] 09/01/2025 11:30 AM EST Office Visit [facility] PULMONARY & CRITICAL CARE MEDICINE 3000 [facility] 240 [place] [address] Maxine Gibson, MARBLE WORKER 2400 [place] [address] 09/02/2025 10:00 AM EST Office Visit [facility] UROLOGY 1760 [facility] [address] [place] [address] Sanam Saunders, MARBLE WORKER 1760 [facility] [address] [place] [address] 09/24/2025 9:15 AM EST Office Visit [facility]UMATOLOGY 330 [facility] [address] [place] [address] John Sheppard, MARBLE WORKER [address] [address] 02/03/2026 10:45 AM EDT Office Visit [facility] RHEUMATOLOGY 330 [place] [address] [address] [address] Patrice Santana DO [address] [id number] documented as of this encounter Goals Goal [...] documented as of this encounter Care Teams Photographic Equipment Mechanic Relationship Specialty Start Date End Date Reza Panchal MD 1210 [place] [address] PCP - General Family Medicine 09/30/24 documented as of this encounter
--- OUTSIDE RECORDS SUMMARY | 2025-07-18 09:35 | XMS_ITS | Encounter Summary ---
Author Organization [facility] Address [address] [place] [phone] Care Team Providers Care Residential Pest Control Technician Name Role Phone Reza Panchal MD Primary Care Provider +1- [phone] Encounter Details Date Type Department Care Team (Late st Contact Info) Description 05/16/2025 Results Follow-Up [facility] UROLOGY 3000 [facility] [address] [place] [address] Sanam Saunders APRN 1760 [place] [address] Social History Tobacco Use Types Packs/Day Years Used Date Smoking Tobacco: Never Passive Smoke Exposure: Past Smokeless Tobacco: Never Comments: smokes, for 45 years Alcohol Use Standard Drinks/Week Comments No 0 (1 standard drink = 0.6 oz pur e alcohol) [facility] Utilities Answer Date Recorded In the past 12 months has [employer], gas, oil, or water company threatened [...] Description 07/21/2025 11:30 AM EDT Office Visit [facility] UROLOGY 1760 [facility] [address] [place] [address] Sanam Saunders, MEAT PICKLER 1760 [facility] [address] [place] [address] 07/23/2025 10:00 AM EDT Infusion [facility] OUTPATIENT ONCOLOGY [place] 330 [facility] [address] [place] [address] 09/01/2025 11:00 AM EST Office Visit [facility] PULMONARY & CRITICAL CARE MEDICINE 3000 [facility] 240 [place] [address] 09/01/2025 11:30 AM EST Office Visit [facility] PULMONARY & CRITICAL CARE MEDICINE 3000 [facility] [address] [place] [address] Maxine Gibson, MEAT PICKLER 2400 [place] [address] 09/02/2025 10:00 AM EST Office Visit [facility] UROLOGY 1760 [facility] [address] [place] [address] Sanam Saunders, MEAT PICKLER 1760 [facility] [address] [place] [address] 09/24/2025 9:15 AM EST Office Visit [facility] RHEUMATOLOGY [address] [place] [address] John Sheppard APRN [address] [address] 02/03/2026 10:45 AM EDT Office Visit [facility] RHEUMATOLOGY [address] [address] Patrice Santana DO [address] [address] documented as of this encounter [...] documented as of this encounter Care Teams Residential Pest Control Technician Relationship Specialty Start Date End Date Reza Panchal MD [address] [place] [address] PCP - General Family Medicine 09/30/24 documented as of this encounter
--- OUTSIDE RECORDS SUMMARY | 2025-07-18 09:35 | XMS_ITS | Encounter Summary ---
[facility] Address [address] [place] [address] Care Team Providers Care Superintendent Greens Name Role Phone Reza Panchal MD Primary Care Provider +1- [phone] Reason for Visit * Reason Comments Med Refill Encounter Details Date Type Department Care Team (Late st Contact Info) Description 02/24/2023 Refill [facility] PRIMARY CARE [address] [address] Huyen Hall MD [address] [address] Type 2 diabetes mellitus with hyperglycemia, without [...] Description 07/21/2025 11:30 AM EDT Office Visit [facility] UROLOGY 1760 [facility] 502 [place] [address] Sanam Saunders, PARVIZ 1760 [facility] [address] [place] [address] 07/23/2025 10:00 AM EDT Infusion [facility] OUTPATIENT ONCOLOGY [place] [address] [place] [address] [place] [address] 09/01/2025 11:00 AM EST Office Visit [facility] PULMONARY & CRITICAL CARE MEDICINE 3000 [facility] [address] [place] [address] 09/01/2025 11:30 AM EST Office Visit [facility] PULMONARY & CRITICAL CARE MEDICINE 3000 [facility] [address] [place] [address] ArthurMaxine roth, ARMATURE AND ROTOR WINDER [address] [place] [address] 09/02/2025 10:00 AM EST Office Visit [facility] UROLOGY 1760 [facility] [address] [place] [address] Sanam Saunders, ARMATURE AND ROTOR WINDER 1760 [facility] [address] [place], [place] [address] 09/24/2025 9:15 AM EST Office Visit [facility] RHEUMATOLOGY [address] [phone] John Sheppard APRN [address] [address] 02/03/2026 10:45 AM EDT Office Visit [facility] RHEUMATOLOGY [address] [phone] Patrice Santana, [address] [phone] documented as of this encounter Visit Diagnoses [...] documented as of this encounter Care Teams Superintendent Greens Relationship Specialty Start Date End Date Reza Panchal MD [facility] [place] [address] PCP - General Family Medicine 09/30/24 documented as of this encounter
--- OUTSIDE RECORDS SUMMARY | 2025-07-18 09:35 | XMS_ITS | Encounter Summary ---
Author Organization [facility] Address [address] [place] [address] Care Team Providers Care Web Production Manager Name Role Phone Reza Panchal MD Primary Care Provider +1- [phone] Reason for Visit * Reason Onset Date Comments DR SANTILLAN - CLINICAL 05/08/2025 Encounter Details Date Type Department Care Team (Late st Contact Info) Description 05/08/2025 Telephone [facility] UROLOGY 1760 [place] [address] Brennan Santillan MD [address]60 [place] [address] DR SANTILLAN - CLINICAL Social History Tobacco Use Types Packs/Day Years Used Date Smoking Tobacco: Never Passive Smoke Exposure: Past Smokeless Tobacco: Never Comments: smokes, for 45 years Alcohol Use Standard Drinks/Week Comments No 0 (1 standard drink = 0.6 oz pur e alcohol) [facility] Utilities Answer Date Recorded In the past 12 months has [employer], gas, oil, or water company threatened to [...] for Call: [facility] WITH [facility]PS[facility] DUE TO UTI. PATIENT REQUESTING A FU WITH DR SANTILLAN. UTI URINARY SYMPTOMS STARTED AGAIN YESTERDAY. PLEASE ADVISE ON SCHEDULING. REACH OUT TO ERICA [phone] When was the patient last seen: 03-26-25 HUB AGENT UNABLE TO WARM TRANSFER. PLEASE REACH OUT ANA CRISTINA documented in this encounter Plan of Treatment Upcoming Encounters Date Type Department Care Team (Late st Contact Info) Description 07/21/2025 11:30 AM EDT Office Visit [facility] UROLOGY 1760 [facility] 502 [place] [phone] Sanam Saunders APRN 1760 [facility] [address] [place] [phone] 07/23/2025 10:00 AM EDT Infusion [facility] OUTPATIENT ONCOLOGY [place] [address] [place] [address] 09/01/2025 11:00 AM EST Office Visit [facility] PULMONARY & CRITICAL CARE MEDICINE 3000 [facility] [address] [place] [address] 09/01/2025 11:30 AM EST Office Visit [facility] PULMONARY & CRITICAL CARE MEDICINE 3000 [facility] [address] [place] [address] Maxine Gibson, MANAGER OF CONSTRUCTION [address] [place] [address] 09/02/2025 10:00 AM EST Office Visit [facility] UROLOGY 1760 [facility] 502 [place] [address] PinoSanam Walker, MANAGER OF CONSTRUCTION 1760 [facility] [address] [place], [place] [address] 09/24/2025 9:15 AM EST Office Visit [facility] RHEUMATOLOGY [address] [place] [address] [phone] John Sheppard APRN [address] [address] 02/03/2026 10:45 AM EDT Office Visit [facility] RHEUMATOLOGY [address] [place] [address] [phone] Patrice Santana, [address] [phone] documented as of this encounter Goals Goal [...] documented as of this encounter Care Teams Web Production Manager Relationship Specialty Start Date End Date Reza Panchal MD [facility]0 [place] [address] PCP - General Family Medicine 09/30/24 documented as of this encounter
--- OUTSIDE RECORDS SUMMARY | 2025-07-18 09:35 | XMS_ITS | Encounter Summary ---
Author Organization [facility] Address [address] [place] [address] Care Team Providers Care Assurance Officer Name Role Phone Reza Panchal MD Primary Care Provider +1- [phone] Reason for Visit * Reason Onset Date Comments VOQUENZA 10 MG PA REQUEST 05/13/2025 APPROVAL 05/13/2025 Encounter Details Date Type Department Care Team (Latest Contact Info) Description 05/13/2025 Prior Authorization [facility]STRO[facility]OLOGY [address] [place] [address] Khadar Julien RMA VOQUENZA 10 MG PA REQUEST; APPROVAL Social History Tobacco Use Types Packs/Day Years Used Date Smoking Tobacco: Never Passive Smoke Exposure: Past Smokeless Tobacco: Never Comments: smokes, for 45 years Alcohol Use Standard Drinks/Week Comments No 0 (1 standard drink = 0.6 oz pur e alcohol) [facility] Utilities Answer Date Recorded In the past 12 months has [employer], gas, oil, or water company threatened [...] Outcome Approved on May 13 by Jenni [facility] 2017 Your request has been approved Effective [...] Call us at Outcome Approved today by [facility] 2017 Your request has been approved Effective Date: 10/16/2024 Authorization Expiration Date: 10/15/2025 * Telephone Encounter - Khadar Julien RMA - 05/13/2025 2:04 PM EDT (Grewal: [id number]) PA Need Help? Call us at Status sent iconSent to Plan today Drug Voquezna 10MG tablets ePA cloud logo Form Jenni Electronic PA Form (2016 [employer]) documented in this encounter Plan of Treatment Upcoming Encounters Date Type Department Care Team (Late st Contact Info) Description 07/21/2025 11:30 AM EDT Office Visit [facility] UROLOGY [address] [place] [address] [address] [place] [address] Sanam Saunders, PARVIZ 1760 [facility] [address] [place] [address] 07/23/2025 10:00 AM EDT Infusion [facility] OUTPATIENT ONCOLOGY [place] [address] [place] [address] 09/01/2025 11:00 AM EST Office Visit [facility] PULMONARY & CRITICAL CARE MEDICINE 3000 [facility] [address] [place] [address] 09/01/2025 11:30 AM EST Office Visit [facility] PULMONARY & CRITICAL CARE MEDICINE 3000 [facility] [address] [place] [address] Maxine Gibson, MERCHANDISE BUYER [address] [place] [address] 09/02/2025 10:00 AM EST Office Visit [facility] UROLOGY 1760 [facility] 502 [place] [address] Sanam Saunders, MERCHANDISE BUYER 1760 [facility] [address] [place], [place] [address] 09/24/2025 9:15 AM EST Office Visit [facility] RHEUMATOLOGY [address] [phone] John Sheppard, MERCHANDISE BUYER [address] [phone] 02/03/2026 10:45 AM EDT Office Visit [facility] RHEUMATOLOGY [address] [phone] Patrice Santana DO [address] [phone] documented as of this encounter Goals Goal [...] documented as of this encounter Care Teams Assurance Officer Relationship Specialty Start Date End Date Reza Panchal MD [address] [place] [address] PCP - General Family Medicine 09/30/24 documented as of this encounter
--- OUTSIDE RECORDS SUMMARY | 2025-07-18 09:35 | XMS_ITS | Clinical Summary ---
Author Organization [facility] Address [address] [place] [address] Care Team Providers Care Mint Wafer Depositor Name Role Phone Reza Panchal MD Primary Care Provider [phone] Allergies Active Allergy Reactions Criticality Noted Date [...] g 12 05/14/20 25 Active nystatin (MYCOSTATIN) [id number] UNIT/GM powderIndications: Yeast dermatitis,Perinea l irritation in [...] antibiotics to protect the rectal reservoir including [id number]-rds-[id number] yogurt preparations to judy oral pills containing [...] (05/14/2025 6:23 PM EDT): Orders: nystatin (MYCOSTATIN) [id number] UNIT/GM powder; Apply topically to the appropriate area as directed 3 (Three) Times a Day. POC Urinalysis Dipstick, Automated Perineal irritation in female 05/14/2025 Assessment & Plan (05/14/2025 6:23 PM EDT): Orders: nystatin (MYCOSTATIN) [id number] UNIT/GM powder; Apply topically to the appropriate [...] Angina pectoris 05/03/2019 Overview (12/31/2020): a. Remote [facility] -- data deficit: No reported disease. b. L ight [place] with medical treatment. c. [facility], 05/12/2011, Dr. Mosley: Angiographically normal [...] done before next visit. Reviewed labs from [facility]. Labs also requested. Assessment & Plan (01/30/2025 [...] Type Department Care Team Description 07/14/2025 Telephone [facility] PULMONARY & CRITICAL CARE MEDICINE [address] [place] [address] Maxine Gibson, INSULATION INSPECTOR Shortness of Breath 07/09/2025 9:00 AM EDT Infusion [facility] OUTPATIENT ONCOLOGY [address] [place] [address] Age-related osteoporosis without current pathological fracture (Primary Dx) 07/08/2025 9:05 AM EDT Lab [facility] [place] [address] [place] [address] Seropositive rheumatoid arthritis; High risk medication use; Fatigue, unspecified type 07/08/2025 Results Follow-Up [facility] RHEUMATOLOGY [address] [place] [address] John Sheppard, INSULATION INSPECTOR 07/08/2025 Results Follow-Up [facility] [place] [address] [place] [address] John Sheppard, INSULATION INSPECTOR 07/08/2025 Travel 06/17/2025 Results Follow-Up [facility] UROLOGY [address] [place] [address] Sanam Saunders APRN 06/13/2025 10:00 AM EDT Office Visit [facility] UROLOGY [address] [place] [address] Sanam Saunders, INSULATION INSPECTOR Infection due to 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 toxin-producing Escherichia coli (E.coli) (Primary Dx); Lower urinary tract symptoms (LUTS) 06/13/2025 Travel 06/05/2025 10:45 AM EDT Office Visit [facility] RHEUMATOLOGY [address] [phone] John Sheppard APRN Seropositive rheumatoid arthritis (Primary Dx); High risk medication use; Primary osteoarthritis involving multiple joints; Age-related osteoporosis without current pathological fracture; NSAID long-term use; Fatigue, unspecified type 06/05/2025 Telephone [facility] RHEUMATOLOGY [address] [address] John Sheppard APRN 06/05/2025 Travel 06/04/2025 Results Follow-Up [facility] RHEUMATOLOGY [address] [address] Patrice Santana DO 06/03/2025 10:33 AM EDT - 06/03/2025 11:59 PM EDT Hospital Encounter [facility] [address] [place] [phone] Patrice Santana DO Seropositive rheumatoid arthritis; High risk medication use; Primary osteoarthritis involving multiple joints; Age-related osteoporosis without current pathological fracture; NSAID long-term use Discharge Disposition: Home or Self Care 06/03/2025 Travel 05/28/2025 Telephone [facility] GASTROENTEROLOGY [address] [address] Ivelisse Cordon MD CANCEL PROCEDURE 05/23/2025 1:00 PM EDT - 05/23/2025 11:59 PM EDT Hospital Encounter [facility] OUTPATIENT ONCOLOGY [address] [place] [address] Patrice Santana DO Rheumatoid arthritis involving multiple sites with positive rheumatoid factor (Primary Dx) Discharge Disposition: Home or Self Care 05/23/2025 Travel 05/16/2025 Results Follow-Up [facility] UROLOGY [address] [place] [address] Sanam Saunders, INSULATION INSPECTOR 05/14/2025 2:30 PM EDT Office Visit [facility] UROLOGY [address] [place] [address] Sanam Saunders, INSULATION INSPECTOR Infection due to 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 toxin-producing Escherichia coli (E.coli) (Primary Dx); Yeast vaginitis; Yeast dermatitis; Perineal irritation in female; Atrophic vaginitis 05/14/2025 Travel 05/14/2025 Telephone [facility] UROLOGY [address] [facility] [address] [place] [address] Sanam Saunders, INSULATION INSPECTOR 05/13/2025 Prior Authorization [facility] GASTROENTEROLOGY [address] [facility] [address] [place] [address] Khadar Julien RMA VOQUENZA 10 MG PA REQUEST; APPROVAL 05/12/2025 Refill [facility] GASTROENTEROLOGY [address] [facility] [address] [place] [address] Palak Graham PA-C 05/08/2025 Telephone [facility] UROLOGY [address] [facility] [address] [place] [address] STARK - CLINICAL 05/07/2025 Results Follow-Up [facility] DI[facility]NOSTIC [facility] AT [address] [place] [address] Palak Graham PA-C 05/06/2025 12:15 PM EDT Lab [facility] AT [address] [place] [address] Esophageal dysphagia; Gastroesophageal reflux disease, unspecified whether esophagitis present 05/06/2025 10:30 AM EDT Office Visit [facility] GASTROENTEROLOGY [address] [facility] [address] [place] [address] Palak Graham PA-C Esophageal dysphagia (Primary Dx); Gastroesophageal reflux disease, unspecified whether esophagitis present; History of Araseli fundoplication; History of aspiration pneumonia 05/06/2025 Telephone [facility] GASTROENTEROLOGY [address] [facility] [address] [place] [address] Palak Graham PA-C 05/06/2025 Travel 04/29/2025 9:30 AM EDT Office Visit [facility] PULMONARY & CRITICAL CARE MEDICINE [address] [place] [address] Maxine Gibson APRN Seasonal allergic rhinitis due to pollen (Primary Dx); Chronic cough; GERD without esophagitis; DEVANG (obstructive sleep apnea)/suspected nocturnal hypoxemia.-by history. Intolerant of NIPPV in past. 04/29/2025 Refill [facility] CARDIOLOGY [address] [facility] [address] [place] [address] Tristan Mosley MD Med Refill [...] Description 07/21/2025 11:30 AM EDT Office Visit [facility] UROLOGY [address] [facility] [address] [place] [address] Sanam Saunders, INSULATION INSPECTOR [address] [facility] [address] [place] [address] 07/23/2025 10:00 AM EDT Infusion [facility] OUTPATIENT ONCOLOGY [address] [place] [address] 09/01/2025 11:00 AM EST Office Visit [facility] PULMONARY & CRITICAL CARE MEDICINE [address] [place] [address] 09/01/2025 11:30 AM EST Office Visit [facility] PULMONARY & CRITICAL CARE MEDICINE [address] [place] [phone] Maxine Gibson, INSULATION INSPECTOR [address] [place] [address] 09/02/2025 10:00 AM EST Office Visit [facility] UROLOGY [address] [facility] [address] [place] [address] Sanam Saunders, INSULATION INSPECTOR [address] [facility] [address] [place] [address] 09/24/2025 9:15 AM EST Office Visit [facility] RHEUMATOLOGY [address] [facility] 100 [place] [phone] John Sheppard APRN 330 [facility] 100 [place] [address] 02/03/2026 10:45 AM EDT Office Visit [facility] RHEUMATOLOGY [address] [place] [address] Patrice Santana DO [address] [facility] [address] [place] [address] Health Maintenance Due Date Last Done Comments COLOGUARD 2002 COLON CANCER SCREENING 5 YEA R SIGMOIDOSCOPY 2002 CT COLONOGRAPHY 2002 FIT Testing (1 year) 2002 URINE MICROALBUMIN-CREATININ E RATIO (uACR) 04/13/2022 04/13/2021, 04/07/2020, 07/16/2019 TDAP/TD VACCINES (2 - Td or Tdap) 04/24/2022 012 DIABETIC FOOT EXAM 01/05/2024 01/04/2023, 0 01/04/2023, 01/04/2023, Additional history exists [facility] PLAN OF CARE 02/07/2024 ANNUAL WELLNESS [...] day. Notes: Medical Devices Implanted Type Area Front Facer Device Identifier Shelf Expiration Date Model / Serial / Lot Pk Imp Trial Basic Bilat W/Ext Neurostm/Pne Ld Imp Kt - [id number] Implanted:Qty: 1 on 02/04/2025 by Brennan Lee MD at [facility] Implant N/A: Back [employer] 07/15/2025 1E01 / / [id number] Ld Neurostm Sacral Pne - [id number] Implanted:Qty: 1 on 02/04/2025 by Brennan Lee MD at [facility] Implant Back [employer] 02/20/2027 1901 / / [id number] Neurostm Sacral/Nerv [employer] Nonrechg W/Torq Wrench - [id number] Implanted:Qty: 1 on 02/20/2025 by Brennan Lee MD at [facility] Implant N/A: Back [employer] 12/12/2025 4101 / / [id number] Kt Ld Stim Tined [employer] W/2/Sty Str/Crv - [id number] Implanted:Qty: 1 on 02/20/2025 by Brennan Lee MD at [facility] Implant N/A: Back [employer] 02/27/2027 1201 / / [id number] Procedures Procedure Name Priority Date/Time Associated Diagnosis [...] - 10.80 10*3/mm3 07/08/2025 2:34 PM EDT [facility] RBC 3.74(L) 3.77 - 5.28 10*6/mm3 07/08/2025 2:34 PM EDT [facility] Hemoglobin 10.7(L) 12.0 - 15.9 g/dL 07/08/2025 2:34 PM EDT [facility] Hematocrit 34.2 34.0 - 46.6 % 07/08/2025 2:34 PM EDT [facility] MCV 91.4 79.0 - 97.0 fL 07/08/2025 2:34 PM EDT [facility] MCH 28.6 26.6 - 33.0 pg 07/08/2025 2:34 PM EDT [facility] MCHC 31.3(L) 31.5 - 35.7 g/dL 07/08/2025 2:34 PM [facility] RDW 12.7 12.3 - 15.4 % 07/08/2025 2:34 PM [facility] RDW-SD 42.3 37.0 - 54.0 fl 07/08/2025 2:34 PM [facility] MPV 10.2 6.0 - 12.0 fL 07/08/2025 2:34 PM [facility] Platelets 255 140 - 450 10*3/mm3 07/08/2025 2:34 PM [facility] Neutrophil % 49.5 42.7 - 76.0 % 07/08/2025 2:34 PM [facility] Lymphocyte % 31.8 19.6 - 45.3 % 07/08/2025 2:34 PM [facility] Monocyte % 14.6(H) 5.0 - 12.0 % 07/08/2025 2:34 PM [facility] Eosinophil % 3.1 0.3 - 6.2 % 07/08/2025 2:34 PM [facility] Basophil % 0.4 0.0 - 1.5 % 07/08/2025 2:34 PM [facility] Immature Grans % 0.6(H) 0.0 - 0.5 % 07/08/2025 2:34 PM [facility] Neutrophils, Absolute 3.54 1.70 - 7.00 10*3/mm3 07/08/2025 2:34 PM [facility] Lymphocytes, Absolute 2.27 0.70 - 3.10 10*3/mm3 07/08/2025 2:34 PM [facility] Monocytes, Absolute 1.04(H) 0.10 - 0.90 10*3/mm3 07/08/2025 2:34 PM [facility] Eosinophils, Absolute 0.22 0.00 - 0.40 10*3/mm3 07/08/2025 2:34 PM EDT [facility] Basophils, Absolute 0.03 0.00 - 0.20 10*3/mm3 07/08/2025 2:34 PM EDT [facility] Immature Grans, Absolute 0.04 0.00 - 0.05 10*3/mm3 07/08/2025 2:34 PM EDT [facility] nRBC 0.0 0.0 - 0.2 /100 WBC 07/08/2025 2:34 PM EDT [facility] Blood Venipuncture / Unknown 07/08/2025 9:03 AM EDT 07/08/2025 9:03 AM EDT John Sheppard INSULATION INSPECTOR LAB BLOOD ORDERABLES F inal Result [facility]
[address] [place] [address], * Hepatitis Panel, Acute (07/08/2025 9:03 AM EDT) Hepatitis B Surface Ag Non-Reacti ve Non-Reacti ve 07/08/2025 3:12 PM EDT [facility] Hep A IgM Non-Reacti ve Non-Reacti ve 07/08/2025 3:12 PM EDT [facility] Hep B C IgM Non-Reacti ve Non-Reacti ve 07/08/2025 3:12 PM EDT [facility] Hepatitis C Ab Non-Reacti ve Non-Reacti ve 07/08/2025 3:12 PM EDT [facility] Blood Venipuncture / Unknown 07/08/2025 9:03 AM EDT 07/08/2025 9:03 AM EDT Narrative [facility] - 07/08/2025 3:12 PM EDT Results may be falsely decreased if patient taking Biotin. John Sheppard APRN LAB BLOOD ORDERABLES F inal Result [facility]
[address] [place] [address], * Vitamin D 25 Hydroxy (07/08/2025 9:03 AM EDT) [facility] 25 Hydroxy, Vitamin D 56.4 30.0 - 100.0 ng/ml 07/08/2025 3:02 PM EDT [facility] Blood Venipuncture / Unknown 07/08/2025 9:03 AM EDT 07/08/2025 9:03 AM EDT Narrative [facility] - 07/08/2025 3:02 PM EDT Reference Range for Total Vitamin D 25(OH) Deficiency <20.0 ng/mL Insufficiency 21-29 ng/mL Sufficiency 30-100 ng/mL Toxicity >100 ng/ml John Sheppard APRN LAB BLOOD ORDERABLES F inal Result Performing Organization Address [facility] Co de Phone Number [facility]
[address] [place] [address], * Sedimentation Rate (07/08/2025 9:03 AM EDT) [facility] Sed Rate 28 0 - 30 mm/hr 07/08/2025 2:36 PM EDT [facility] Blood Venipuncture / Unknown 07/08/2025 9:03 AM EDT 07/08/2025 9:03 AM EDT FloraAlexi Sheppard INSULATION INSPECTOR LAB BLOOD ORDERABLES F inal Result Performing Organization Address [facility] Co de Phone Number [facility]
[address] [place] [address], * C-reactive Protein (07/08/2025 9:03 AM EDT) [facility] C-Reactive Protein 0.30 0.00 - 0.50 mg/dL 07/08/2025 2:56 PM EDT [facility] Blood Venipuncture / Unknown 07/08/2025 9:03 AM EDT 07/08/2025 9:03 AM EDT FloraArnaldoAlba Silver INSULATION INSPECTOR LAB BLOOD ORDERABLES F inal Result [facility]
[address] [place] [address], * (ABNORMAL) Comprehensive Metabolic Panel (07/08/2025 9:03 AM EDT) Only the most recent of2 resultswithin the time period is included. Glucose 194(H) 65 - 99 mg/dL 07/08/2025 2:56 PM EDT [facility] BUN 12.0 8.0 - 23.0 mg/dL 07/08/2025 2:56 PM EDT [facility] Creatinine 0.74 0.57 - 1.00 mg/dL 07/08/2025 2:56 PM EDT [facility] Sodium 138 136 - 145 mmol/L 07/08/2025 2:56 PM EDT [facility] Potassium 4.0 3.5 - 5.2 mmol/L 07/08/2025 2:56 PM EDT [facility] Chloride 100 98 - 107 mmol/L 07/08/2025 2:56 PM EDT [facility] CO2 22.7 22.0 - 29.0 mmol/L 07/08/2025 2:56 PM EDT [facility] Calcium 9.1 8.6 - 10.5 mg/dL 07/08/2025 2:56 PM EDT [facility] Total Protein 7.4 6.0 - 8.5 g/dL 07/08/2025 2:56 PM EDT [facility] Albumin 3.9 3.5 - 5.2 g/dL 07/08/2025 2:56 PM EDT [facility] ALT (SGPT) 18 1 - 33 U/L 07/08/2025 2:56 PM EDT [facility] AST (SGOT) 17 1 - 32 U/L 07/08/2025 2:56 PM EDT [facility] Alkaline Phosphatase 101 39 - 117 U/L 07/08/2025 2:56 PM EDT [facility] Total Bilirubin 0.2 0.0 - 1.2 mg/dL 07/08/2025 2:56 PM EDT [facility] Globulin 3.5 gm/dL 07/08/2025 2:56 PM EDT [facility] A/G Ratio 1.1 g/dL 07/08/2025 2:56 PM EDT [facility] BUN/Creatinine Ratio 16.2 7.0 - 25.0 07/08/2025 2:56 PM EDT [facility] Anion Gap 15.3(H) 5.0 - 15.0 mmol/L 07/08/2025 2:56 PM EDT [facility] eGFR 88.3 >60.0 mL/min/1.7 3 07/08/2025 2:56 PM EDT [facility] Blood Venipuncture / Unknown 07/08/2025 9:03 AM EDT 07/08/2025 9:03 AM EDT [facility] - 07/08/2025 2:56 PM EDT GFR [...] race as a factor us John Sheppard INSULATION INSPECTOR LAB BLOOD ORDERABLES F inal Result [facility]
[address] [place] [address], * POC Urinalysis Dipstick, Automated (06/13/2025 10:07 AM EDT) Only the most recent of2 resultswithin the time period is included. Color Yellow Yellow, Straw, Dark Yellow, Ann [facility] Clarity, UA Clear Clear [facility] Specific [facility] 1.010 1.005 - 1.030 [facility] pH, Urine 7.5 5.0 - 8.0 [facility] Leukocytes Negative Negative [facility] Nitrite, UA Negative Negative [facility] Protein, POC Negative Negative mg/dL [facility] Glucose, UA Negative Negative mg/dL [facility] Ketones, UA Negative Negative [facility] Urobilinogen, UA Normal Normal, 0.2 E.U./dL [facility] Bilirubin Negative Negative [facility] Blood, UA Negative Negative [facility] Lot Number [id number] [facility] Expiration Date 11/08/2026 [facility] Urine 06/13/2025 10:0 7 AM EDT Sanam Saunders APRN POINT OF CARE TEST ORDE VOLODYMYR Final Result [facility]
[address] [place] [address], [place] [phone] * Urine Culture - Urine, Urine, Clean Catch (06/13/2025 9:55 AM EDT) Urine Culture No growth DICK 06/15/2025 4:46 AM EDT [facility] Urine Urine specimen obtained by clean catch procedure / Unknown Collection / Unknown 06/13/2025 9:55 AM EDT 06/13/2025 9:55 AM EDT us Sanam Saunders APRN MICROBIOLOGY - GENERAL ORDERABLES Final Result [facility]
[address] [place] [address], * DEXA Bone Density Axial (06/03/2025 10:55 [...] fall-prevention measurements. The National Osteoporosis Foundation recommends (http://www.nof.org/hcp/practice/rlhycpfq-nsn-iofzarmq-guidelines/clinicians-christine de) that FDA-approved medical therapies be considered [...] the left hip with 95% confidence is 0.795674 gm/cm2 at the hip and 0.702125 g/cm2 at the lumbar spine. Report dictated by: Kiah Weston PA-c I have personally reviewed this case and agree with the findings above: Electronically Signed: Julito Kirkland MD 06/03/2025 4:39 PM EDT Workstation ID: [id number] Narrative 06/03/2025 4:39 PM EDT DUAL-ENERGY X-RAY [...] normal patients. According to criteria established by the[facility], patients with T-scores between [...] exercises and fall-prevention measurements. The NationalOsteoporosis Foundation recommends(http://www.nof.org/hcp/practice/qchzhtvv-pdo-cizvsvax-guidelines/clin ician s-guide) that FDA-approved medical therapies be [...] at the left hipwith 95% confidence is 0.029596 gm/cm2 at the hip and 0.675171 g/cm2 atthe lumbar spine. Report dictated by: Kiah Weston PA-c I have personally reviewed this case and agree with the findings above: Electronically Signed: Julito Kirkland MD 06/03/2025 4:39 PM EDT Workstation ID: [id number] us Patrice Santana DO IMG DXA ORDERABLES Fin al Result * LABS SCANNED (05/14/2025) Sanam Saunders APRN LAB BLOOD ORDERABLES Fi nal Result * TSH Rfx On Abnormal To Free T4 (05/06/2025 12:01 PM EDT) Pathologist [facility] TSH 2.680 0.270 - 4.200 uIU/mL 05/06/2025 7:29 PM EDT [facility] Blood Venipuncture / Unknown 05/06/2025 12:01 PM EDT 05/06/2025 12:01 PM EDT Palak Graham PA-C LAB BLOOD ORDERABLES Final Result [facility]
[address] [place] [address], * (ABNORMAL) POC Glycosylated Hemoglobin (Hb A1C) (04/15/2024 3:58 PM EDT) Hemoglobin A1C 5.6 4.5 - 5.7 % [facility] Lot Number [id number] [facility] Expiration Date 12/31/2025 [facility] Blood 04/15/2024 3:58 PM EDT Huyen Pal MD POINT OF CARE TEST ORDERABL ES Final Result [facility]
[address] [place] [address], * (ABNORMAL) Lipid Panel (02/21/2024 10:20 AM EDT) Total Cholesterol 143 0 - 200 mg/dL 02/21/2024 11:45 PM EDT [facility] Triglycerides 212(H) 0 - 150 mg/dL 02/21/2024 11:45 PM EDT [facility] HDL Cholesterol 37(L) 40 - 60 mg/dL 02/21/2024 11:45 PM EDT [facility] LDL Cholesterol 71 0 - 100 mg/dL 02/21/2024 11:45 PM EDT [facility] VLDL Cholesterol 35 5 - 40 mg/dL 02/21/2024 11:45 PM EDT [facility] LDL/HDL Ratio 1.72 02/21/2024 11:45 PM EDT [facility] Blood Structure of right upper limb / Unknown Venipuncture / Unknown 02/21/2024 10:20 AM EDT 02/21/2024 10:20 AM EDT Narrative [facility] - 02/21/2024 11:45 PM EDT Cholesterol [...] LAB BLOOD ORDERABLES Final Result [facility]
[address] [place] [address], * SCANNED - EYE EXAM (07/20/2023) Anatomical [...] AM EDT) Fecal Occult Blood Negative Negative [facility] Lot Number [id number] [facility] Expiration Date 11/15/2024 [facility] DEVELOPER LOT NUMBER [id number] [facility] DEVELOPER EXPIRATION DATE 02/12/2025 [facility] Positive Control Positive Positive [facility] Negative Control Negative Negative [facility] Stool 04/13/2023 11:3 2 AM EDT Huyen Pal MD POINT OF CARE TEST ORDERABL ES Final Result [facility]
[address] [place] [address], * Microalbumin / Creatinine Urine Ratio - [...] RELEASE TO [facility] Narrative [facility] (AMBULATORY) - 04/14/2021 10:09 AM EDT Performed at: - [facility] [address] [id number] Senior Publications Specialist: Jean Stephens PhD, Phone: [phone] Huyen Pal MD URINE ORDERABLES Final Resu lt [facility] ([facility]) [address] [place] [id number], [place] [phone] [facility] [address] [place] [id number], [place] [phone] * SCANNED - INFLUENZA (07/16/2019) Huyen Pal [...] Documents on File Type Date Recorded Patient Incinerator Operator Expl anation PATIENT ADVANCE DIRECTIVES - SCAN [...] Of Support Discussed With: Patient Care Teams Mint Wafer Depositor Relationship Specialty Start Date End Date Reza Panchal MD [facility] [place] [address] PCP - General Family Medicine 09/30/24
--- OUTSIDE RECORDS SUMMARY | 2025-07-18 09:35 | XMS_ITS | Encounter Summary ---
Author Organization [facility] Address [address] [place] [address] Care Team Providers Care Computer Forensic Specialist Name Role Phone Reza Panchal MD Primary Care Provider +1- [phone] Encounter Details Date Type Department Care Team (Latest Contact Info) Description 07/08/2025 Travel Social History Tobacco Use Types Packs/Day Years Used Date Smoking Tobacco: Never Passive Smoke Exposure: Past Smokeless Tobacco: Never Comments: smokes, for 45 years Alcohol Use Standard Drinks/Week Comments No 0 (1 standard drink = 0.6 oz pur e alcohol) [facility] Utilities Answer Date Recorded In [...] Description 07/21/2025 11:30 AM EDT Office Visit [facility] UROLOGY 1760 [facility] 502 [place] [address] Sanam Saunders, BOILER OPERATOR HELPER 1760 [facility] [address] [place] [address] 07/23/2025 10:00 AM EDT Infusion [facility] OUT[facility]IENT ONCOL[facility] [address] [place] [address] 09/01/2025 11:00 AM EST Office Visit [facility] PULMONARY & CRITICAL CARE MEDICINE 3000 [facility] 240 [place] [address] 09/01/2025 11:30 AM EST Office Visit [facility] PULMONARY & [facility]ITICAL [facility]ARE MEDICINE 3000 [facility] 240 [place] [address] Maxine Gibson, BOILER OPERATOR HELPER 2400 [place] [address] 09/02/2025 10:00 AM EST Office Visit [facility] UR[facility]Y 1760 [facility] 502 [place] [address] Sanam Saunders, BOILER OPERATOR HELPER 1760 [facility] [address] [place] [address] 09/24/2025 9:15 AM EST Office Visit [facility] RHEUMATOLOGY 330 [facility] 100 [place] [address] John Sheppard APRN 330 [facility] 100 [place] [address] 02/03/2026 10:45 AM EDT Office Visit [facility]UMATOLOGY 330 [facility] 100 [place] [address] Patrice SantanaDO [place] [address] [place] [address] documented as of this encounter Goals Goal [...] as of this encounter Care Teams Computer Forensic Specialist Relationship Specialty Start Date End Date Reza Panchal MD 1210 [place] [address] PCP - General Family Medicine 09/30/24 documented as of this encounter
--- OUTSIDE RECORDS SUMMARY | 2025-07-18 09:35 | XMS_ITS | Encounter Summary ---
Author Organization [facility] Address [address] [place] [address] Care Team Providers Care Mail Service Coordinator Name Role Phone Reza Panchal MD Primary Care Provider +1- [phone] Encounter Details Date Type Department Care Team (Late st Contact Info) Description 06/04/2025 Results Follow-Up [facility] RHEUMATOLOGY [address] [address] Patrice Santana DO 330 [place] [id number] Social History Tobacco Use Types Packs/Day Years Used Date Smoking Tobacco: Never Passive Smoke Exposure: Past Smokeless Tobacco: Never Comments: smokes, for 45 years Alcohol Use Standard Drinks/Week Comments No 0 (1 standard drink = 0.6 oz pur e alcohol) [facility] Utilities Answer Date Recorded In the past 12 months has [employer], gas, oil, or water [employer] threatened to shut off services in [...] Description 07/21/2025 11:30 AM EDT Office Visit [facility] UROLOGY 1760 [facility] [address] [place] [address] Sanam Saunders, BAGGAGE SECURITY CHECKER 1760 [facility] 502 [place] [address] 07/23/2025 10:00 AM EDT Infusion [facility] OUTPATIENT ONCOLOGY [place] 330 [facility] 110 [place] [address] 09/01/2025 11:00 AM EST Office Visit [facility] PULMONARY & CRITICAL CARE MEDICINE 3000 [facility] [address] [place] [address] 09/01/2025 11:30 AM EST Office Visit [facility] PULMONARY & CRITICAL CARE MEDICINE 3000 [facility] [address] [place] [address] Maxine Gibson, BAGGAGE SECURITY CHECKER 2400 [place] [address] 09/02/2025 10:00 AM EST Office Visit [facility] UROLOGY 1760 [facility] [address] [place] [address] Sanam Saunders, BAGGAGE SECURITY CHECKER 1760 [facility] [address] [place] [address] 09/24/2025 9:15 AM EST Office Visit [facility] RHEUMATOLOGY 330 [facility] 100 [place] [address] John Sheppard, BAGGAGE SECURITY CHECKER 330 [facility] 100 [place] [address] 02/03/2026 10:45 AM EDT Office Visit [facility] RHEUMATOLOGY [address] [place] [address] Patrice Santana, DO 330 [facility] 100 [place] [address] documented as of this encounter Goals Goal [...] documented as of this encounter Care Teams Mail Service Coordinator Relationship Specialty Start Date End Date Reza Panchal MD 1210 [place] [address] PCP - General Family Medicine 09/30/24 documented as of this encounter
--- OUTSIDE RECORDS SUMMARY | 2025-07-18 09:35 | XMS_ITS | Encounter Summary ---
Author Organization [facility] Address [address] [place] [address] Care Team Providers Care Allocation Analyst Name Role Phone Reza Panchal MD Primary Care Provider +1- [phone] Encounter Details Date Type Department Care Team (Late st Contact Info) Description 05/14/2025 Telephone [facility] UROLOGY [address] [place] [address] Sanam Saunders APRN 1760 [facility] [address] [place] [address] Social History Tobacco Use Types Packs/Day Years Used Date Smoking Tobacco: Never Passive Smoke Exposure: Past Smokeless Tobacco: Never Comments: smokes, for 45 years Alcohol Use Standard Drinks/Week Comments No 0 (1 standard drink = 0.6 oz pur e alcohol) [facility] Utilities Answer Date Recorded In the past 12 months has [employer] electric, gas, oil, or water company threatened [...] VERBAL ON FILE Best call back number: [phone] Patient is needing: PT CALLED REQUESTING A LATER APPT TODAY OR FOR ANOTHER DAY THIS WEEK. PLEASE CALL TO ADVISE. THANKS. documented in this encounter Plan of Treatment Upcoming Encounters Date Type Department Care Team (Late st Contact Info) Description 07/21/2025 11:30 AM EDT Office Visit [facility] UROLOGY 1760 [facility] 502 [place] [address] Sanam Saunders APRN 1760 [facility] [address] [place] [address] 07/23/2025 10:00 AM EDT Infusion [facility] OUTPATIENT ONCOLOGY [place] 330 [facility] [address] [place] [address] 09/01/2025 11:00 AM EST Office Visit [facility] PULMONARY & CRITICAL CARE MEDICINE 3000 [facility] [address] [place] [address] 09/01/2025 11:30 AM EST Office Visit [facility] PULMONARY & CRITICAL CARE MEDICINE 3000 [facility] [address] [place] [address] Maxine Gibson, MIGRATION AGENT [address] [place] [address] 09/02/2025 10:00 AM EST Office Visit [facility] UROLOGY 1760 [facility] [address] [place], [place] [address] Sanam Saunders APRN 1760 [facility] [address] [place] [address] 09/24/2025 9:15 AM EST Office Visit [facility] RHEUMATOLOGY [address] [phone] John Sheppard APRN [address] [id number] 02/03/2026 10:45 AM EDT Office Visit [facility] RHEUMATOLOGY [address] [address] Patrice Santana, [address] [id number] documented as of this encounter Goals Goal [...] documented as of this encounter Care Teams Allocation Analyst Relationship Specialty Start Date End Date Reza Panchal MD [address] [place] [address] PCP - General Family Medicine 09/30/24 documented as of this encounter
--- OUTSIDE RECORDS SUMMARY | 2025-07-18 09:35 | XMS_ITS | Clinical Summary ---
Author Organization [facility] Address 1720 [facility] [address] [place] [address] Phone Care Team Providers Care Telehealth Coordinator Name Role Phone Unavailable Unavailable Conditions or Problems No information available. Medications No information available. Medications Administered No information available. Allergies, Adverse Reactions, Alerts No information available. Results No information available. Plan of Care No information available. Procedures No information available. Vital Signs No information available. Immunizations No information available. Advance Directives No information available.
--- OUTSIDE RECORDS SUMMARY | 2025-07-18 09:35 | XMS_ITS | Encounter Summary ---
Author Organization [facility] Address [address] [place] [address] Care Team Providers Care Policy Checker Name Role Phone Reza Panchal MD Primary Care Provider +1- [phone] Reason for Visit * Reason Comments Med Refill Encounter Details Date Type Department Care Team (Late st Contact Info) Description 12/19/2021 Refill [facility] PRIMARY CARE [address] [address] Dia Underwood MD 2039 [facility] 100 [place] [address] Social History Tobacco Use Types Packs/Day Years [...] Office Visit [facility] UROLOGY 1760 [facility] 502 [place] [address] Sanam Saunders, PARVIZ 1765 [facility] [address] [place] [address] 07/23/2025 10:00 AM EDT Infusion [facility] OUTPATIENT ONCOLOGY [place] [address] [place] [address] 09/01/2025 11:00 AM EST Office Visit [facility] PULMONARY & CRITICAL CARE MEDICINE 3000 [facility] 240 [place] [address] 09/01/2025 11:30 AM EST Office Visit [facility] PULMONARY & CRITICAL CARE MEDICINE 3000 [facility] [address] [place] [address] Maxine Gibson, LINUX KERNEL ENGINEER [address] [place] [address] 09/02/2025 10:00 AM EST Office Visit [facility] UROLOGY 1760 [facility] [address] [place] [address] Sanam Saunders, LINUX KERNEL ENGINEER 1760 [facility] [address] [place], [place] [address] 09/24/2025 9:15 AM EST Office Visit [facility] RHEUMATOLOGY [address] [address] John Sheppard APRN [address] [address] 02/03/2026 10:45 AM EDT Office Visit [facility] RHEUMATOLOGY [address] [address] Patrice Santana, [address] [id number] documented as of this encounter Visit Diagnoses [...] documented as of this encounter Care Teams Policy Checker Relationship Specialty Start Date End Date Reza Panchal MD [address] [address] PCP - General Family Medicine 09/30/24 documented as of this encounter
--- OUTSIDE RECORDS SUMMARY | 2025-07-18 09:36 | XMS_ITS | Encounter Summary ---
Author Organization [facility] Address [address] [place] [address] Care Team Providers Care Plate Fitter Name Role Phone Reza Panchal MD Primary Care Provider +1- [phone] Reason for Visit * Reason Comments Med Refill Encounter Details Date Type Department Care Team (Late st Contact Info) Description 03/22/2024 Refill [facility] PRIMARY CARE [address] [address] Huyen Hall MD [address] [address] Acquired hypothyroidism Social History Tobacco Use Types Packs/Day Years Used Date Smoking Tobacco: Never Smokeless Tobacco: Never Comments: smokes, for 45 years Alcohol Use Standard Drinks/Week Comments No 0 (1 standard drink = 0.6 oz pur e alcohol) [facility] Utilities Answer Date Recorded In the past 12 months has [employer], gas, oil, or water company threatened [...] or training? Not on file Preferred Language Kazakh 01/11/2024 PHQ-2 Answer Date Recorded Retired PHQ-9: [...] 07/21/2025 11:30 AM EDT Office Visit [facility] UROLOGY 1760 [facility] [address] [place] [address] Sanam Saunders, DISTRIBUTOR CLEANER 1760 [facility] [address] [place] [address] 07/23/2025 10:00 AM EDT Infusion [facility] OUTPATIENT ONCOLOGY [place] 330 [facility] 110 [place] [address] 09/01/2025 11:00 AM EST Office Visit [facility] PULMONARY & CRITICAL CARE MEDICINE 3000 [facility] 240 [place] [address] 09/01/2025 11:30 AM EST Office Visit [facility] PULMONARY & CRITICAL CARE MEDICINE 3000 [facility] 240 [place] [address] Maxine Gibson, DISTRIBUTOR CLEANER 2400 [place] [address] 09/02/2025 10:00 AM EST Office Visit [facility] UROLOGY 1760 [facility] [address] [place] [address] Sanam Saunders, DISTRIBUTOR CLEANER 1760 [facility] [address] [place] [address] 09/24/2025 9:15 AM EST Office Visit [facility] RHEUMATOLOGY [address] [place] [address] John Sheppard APRN 330 [facility] 100 [place] [address] 02/03/2026 10:45 AM EDT Office Visit [facility] RHEUMATOLOGY 330 [facility] 100 [place] [address] Patrice Santana DO 330 [facility] 100 [place], [place] [address] documented as of this encounter Goals Goal [...] documented as of this encounter Care Teams Plate Fitter Relationship Specialty Start Date End Date Reza Panchal MD [address] [place] [address] PCP - General Family Medicine 09/30/24 documented as of this encounter
--- OUTSIDE RECORDS SUMMARY | 2025-07-18 09:36 | XMS_ITS | Encounter Summary ---
Author Organization [facility] Address [address] [place] [address] Care Team Providers Care Computing Systems Mechanic Name Role Phone Reza Panchal MD Primary Care Provider +1- [phone] Encounter Details Date Type Department Care Team [...] 07/21/2025 11:30 AM EDT Office Visit [facility] UROLOGY 1760 [facility] 502 [place] [address] Sanam Saunders, SENIOR PENSIONS ADMINISTRATOR 1760 [facility] [address] [place] [address] 07/23/2025 10:00 AM EDT Infusion [facility] OUTPATIENT ONCOLOGY [address] [place] [address] 09/01/2025 11:00 AM EST Office Visit [facility] PULMONARY & CRITICAL CARE MEDICINE 3000 [facility] 240 [place] [address] 09/01/2025 11:30 AM EST Office Visit [facility] PULMONARY & CRITICAL CARE MEDICINE 3000 [facility] 240 [place] [address] Maxine Gibson, SENIOR PENSIONS ADMINISTRATOR 2400 [place] [address] 09/02/2025 10:00 AM EST Office Visit [facility] UROLOGY 1760 [facility] 502 [place] [address] Sanam Saunders, SENIOR PENSIONS ADMINISTRATOR 1760 [facility] [address] [place] [address] 09/24/2025 9:15 AM EST Office Visit [facility] RHEUMATOLOGY 330 [facility] 100 [place] [address] John Sheppard APRN 330 [facility] 100 [place] [address] 02/03/2026 10:45 AM EDT Office Visit [facility]HEUMATOLOGY 330 [facility] 100 [place] [address] Patrice SantanaDO [place] [address] [place] [address] documented as of this encounter Goals Goal [...] documented as of this encounter Care Teams Computing Systems Mechanic Relationship Specialty Start Date End Date Reza Panchal MD 1210 [place] [address] PCP - General Family Medicine 09/30/24 documented as of this encounter
--- OUTSIDE RECORDS SUMMARY | 2025-07-18 09:36 | XMS_ITS | Encounter Summary ---
Author Organization [facility] Address [address] [place] [id number] Care Team Providers Care Set Up Mechanic Heading Machines Name Role Phone Reza Panchal MD Primary Care Provider +1- [phone] Encounter Details Date Type Department Care Team (Late st Contact Info) Description 06/17/2025 Results Follow-Up [facility] UROLOGY 1760 [place] [address] Sanam Saunders APRN 1760 [facility] [address] [place] [address] Social History Tobacco Use Types Packs/Day Years Used Date Smoking Tobacco: Never Passive Smoke Exposure: Past Smokeless Tobacco: Never Comments: smokes, for 45 years Alcohol Use Standard Drinks/Week Comments No 0 (1 standard drink = 0.6 oz pur e alcohol) [facility] Utilities Answer Date Recorded In the past 12 months has [employer], gas, oil, or water company threatened [...] Description 07/21/2025 11:30 AM EDT Office Visit [facility] UROLOG[facility] 1760 [facility] [address] [place] [address] Sanam Saunders, RIVETING MACHINE OPERATOR 1760 [facility] [address] [place] [address] 07/23/2025 10:00 AM EDT Infusion [facility] OUTPATIENT ONCOLOGY [place] 330 [facility] 110 [place] [address] 09/01/2025 11:00 AM EST Office Visit [facility] PULMONARY & CRITICAL CARE MEDICINE 3000 [facility] 240 [place] [address] 09/01/2025 11:30 AM EST Office Visit [facility] PULMONARY & CRITICAL CARE MEDICINE 3000 [facility] 240 [place] [address] Maxine Gibson, RIVETING MACHINE OPERATOR 2400 [place] [address] 09/02/2025 10:00 AM EST Office Visit [facility] UROLOGY 1760 [facility] [address] [place] [address] Sanam Saunders, RIVETING MACHINE OPERATOR 1760 [facility] [address] [place] [address] 09/24/2025 9:15 AM EST Office Visit [facility] RHEUMATOLOGY [address] [place] [address] John Sheppard APRN 330 [facility] 100 [place] [address] 02/03/2026 10:45 AM EDT Office Visit [facility] RHEUMATOLOGY 330 [facility] 100 [place] [address] Patrice Santana DO [address] [id number] documented as of this encounter Goals Goal [...] documented as of this encounter Care Teams Set Up Mechanic Heading Machines Relationship Specialty Start Date End Date Reza Panchal MD [address] [place] [address] PCP - General Family Medicine 09/30/24 documented as of this encounter
--- OUTSIDE RECORDS SUMMARY | 2025-07-18 09:36 | XMS_ITS ---
Author Name Ephraim RN, CARAMEL CUTTER HAND, Leigh martinez Sarina Address [address] [address] Phone [phone] Organization [facility] Care Team Providers Care Cutter Brake Lining Name Role Phone Ivonne Ye Unavailable [phone] Reason for Referral Not Available Allergies, adverse [...] 50 mg Tab TAKE 1 TABLET BY [facility] ONCE DAILY IN AM [...] EVERY 12 HOURS 2024-01-03 No Data Available [id number]-Cuifuads [id number] Suspension SHAKE LIQUID AND INSTILL 1 DROP [...] mplaint [facility] 7 Day Disch [place], [place] 12/25/2024 Encntr for f/u exam aft trtm t for cond oth than malig neoplmSepsis, unspecified organism Transitional [facility] Mg[facility] 7 Day Disch [place] 12/25/2024 Encntr for f/u exam aft trtm t for cond oth than malig neoplmSepsis, unspecified organism Transitional [facility] Mg[facility] 7 Day Disch [place] 12/25/2024 Encntr for f/u exam aft trtm t for cond oth than malig neoplmSepsis, unspecified organism Transitional Care Mgmt 7 Day Disch [place] 12/25/2024 Encntr for f/u exam aft trtm t for cond oth than malig neoplmSepsis, unspecified organism Telephone E/M Service; 5-10 min of Medical Discussion (Audio Only) [place], 12/27/2024 Sepsis, unspecified organism Telephone E/M Service; 5-10 min of Medical Discussion (Audio Only) [place], 12/27/2024 Sepsis, unspecified organism Vital Signs Date of Collection Vitals 2024-12-25 14:07:15 BP Diastolic - 79.0 mm[Hg]BP Systolic - 143.0 mm[Hg]Heart Rate - 92.0 /min Social History Sex Female History of Procedures Procedures Service Procedure code Service date Servicing provider Phone# Transitional Care Mgmt 7 Day Disch [address] 2024-12-25 No Data Available No Data Avail [...] 5-10 min of Medical Discussion (Audio Only) [id number] 2024-12-27 No Data Available No Data Availa [...] getting around the house wellLana Erica is POA/stonecutter assistant - she comes over and cooks meals, cleans the house, brings her to appts and the grocery store because pt gets out of breath with too much walkingPD will be a phone visit (Cannot be the following states: [place], [place], [place], [place], [place], [place], [place], [place], [place])Pt Agreed to a post discharge visit with a [facility] Provider: with Ivelisse Reed Friday, December 27, 2024 4:00pm ESTRN reinforced availability of UC provider 24/ for 30 days after discharge and encouraged CB w/ any concerns or if pt is worse in any way. Advised pt to call to reach our staff.Needs/concerns for [facility] provider to address during PD visit: 1) [...] review 2024-12-27 Type of Visit: [facility]: [facility] Date: 12/19/24Discharge diagnosis: Sepsis, [...]
--- OUTSIDE RECORDS SUMMARY | 2025-07-18 09:36 | XMS_ITS | Encounter Summary ---
Author Organization [facility] Address [address] [place] [address] Care Team Providers Care Public Affairs Manager Name Role Phone Reza Panchal MD Primary Care Provider +1- [phone] Encounter Details Date Type Department Care Team [...] or training? Not on file Preferred Language Angolan 01/28/2025 PHQ-2 Answer Date Recorded Retired PHQ-9: [...] Description 07/21/2025 11:30 AM EDT Office Visit [facility] UROLOGY [address] [facility] 502 [place] [address] Sanam Saunders, MARKETING PROJECT MANAGER 1760 [facility] [address] [place] [address] 07/23/2025 10:00 AM EDT Infusion [facility] OUTPATIENT ONCOLOGY [address] [place] [address] [place] [address] 09/01/2025 11:00 AM EST Office Visit [facility] PULMONARY & CRITICAL CARE MEDICINE 3000 [facility] 240 [place] [address] 09/01/2025 11:30 AM EST Office Visit [facility] PULMONARY & CRITICAL CARE MEDICINE 3000 [facility] 240 [place] [address] Maxine Gibson, MARKETING PROJECT MANAGER 2400 [place] [address] 09/02/2025 10:00 AM EST Office Visit [facility] UROLOGY [address] [facility] 502 [place] [address] Sanam Saunders, MARKETING PROJECT MANAGER 1760 [facility] [address] [place] [address] 09/24/2025 9:15 AM EST Office Visit [facility] RHEUMATOLOGY 330 [facility] 100 [place] [address] John Sheppard APRN 330 [facility] 100 [place] [address] 02/03/2026 10:45 AM EDT Office Visit [facility] RHEUMATOLOGY 330 [facility] 100 [place] [address] Patrice SantanaDO [place] [address] [place] [address] documented as of this encounter Goals Goal [...] documented as of this encounter Care Teams Public Affairs Manager Relationship Specialty Start Date End Date Reza Panchal MD 1210 [place] [address] PCP - General Family Medicine 09/30/24 documented as of this encounter
--- OUTSIDE RECORDS SUMMARY | 2025-07-18 09:36 | XMS_ITS | Encounter Summary ---
[facility] Address [address] [place] [address] Care Team Providers Care Injection Molding Machine Offbearer Name Role Phone Reza Panchal MD Primary Care Provider +1- [phone] Encounter Details Date Type Department Care Team (Late st Contact Info) Description 01/15/2025 Results Follow-Up [facility] RHEUMATOLOGY [address] [address] Patrice Santana DO [address] [place] [phone] Social History Tobacco Use Types Packs/Day Years Used Date Smoking Tobacco: Never Passive Smoke Exposure: Past Smokeless Tobacco: Never Comments: smokes, for 45 years Alcohol Use Standard Drinks/Week Comments No 0 (1 standard drink = 0.6 oz pur e alcohol) [facility] Utilities Answer Date Recorded In the past 12 months has [email or web address], gas, oil, or water Between threatened to shut off services in your [...] or training? Not on file Preferred Language Wolof 05/28/2024 PHQ-2 Answer Date Recorded Retired PHQ-9: [...] Visit [facility] UROLOGY [address]60 [facility] [address] [place] [address] Sanam Saunders, MISSILE PAD MECHANIC 1760 [facility] 502 [place] [address] 07/23/2025 10:00 AM EDT Infusion [facility] OUTPATIENT ONCOLOGY [address] [place] [phone] 09/01/2025 11:00 AM EST Office Visit [facility] PULMONARY & CRITICAL CARE MEDICINE 3000 [facility] 240 [place] [phone] 09/01/2025 11:30 AM EST Office Visit [facility] PULMONARY & CRITICAL CARE MEDICINE 3000 [facility] 240 [place] [address] Maxine Gibson, MISSILE PAD MECHANIC 2400 [place] [address] 09/02/2025 10:00 AM EST Office Visit [facility] UROLOGY [address] [facility] [address] [place] [address] Sanam Saunders, MISSILE PAD MECHANIC 1760 [facility] 502 [place] [address] 09/24/2025 9:15 AM EST Office Visit [facility] RHEUMATOLOGY 330 [facility] 100 [place] [phone] John Sheppard MISSILE PAD MECHANIC [address] [address] 02/03/2026 10:45 AM EDT Office Visit [facility] RHEUMATOLOGY [address] [address] Patrice Santana DO [address] [phone] documented as of this encounter Goals Goal [...] documented as of this encounter Care Teams Injection Molding Machine Offbearer Relationship Specialty Start Date End Date Reza Panchal MD [address] [place] [address] PCP - General Family Medicine 09/30/24 documented as of this encounter
--- OUTSIDE RECORDS SUMMARY | 2025-07-18 09:36 | XMS_ITS | Encounter Summary ---
[facility] Address [address] [place] [address] Care Team Providers Care Damper Fitter Name Role Phone Reza Panchal MD Primary Care Provider +1- [phone] Reason for Visit * Reason Comments Med Refill Encounter Details Date Type Department Care Team (Late st Contact Info) Description 02/12/2021 Refill [facility] PRIMARY CARE [address] [address] Huyen Hall MD 2039 [facility] 100 [place] [address] Gastroesophageal reflux disease, unspecified whether esophagitis present [...] Description 07/21/2025 11:30 AM EDT Office Visit [facility] UROLOGY [employer] 502 [place] [address] Sanam Saunders APRN 1760 [facility] [address] [place] [address] 07/23/2025 10:00 AM EDT Infusion [facility] OUTPATIENT ONCOLOGY [place] [address] [place] [address] 09/01/2025 11:00 AM EST Office Visit [facility] PULMONARY & CRITICAL CARE MEDICINE 3000 [facility] [address] 240 [place] [phone] 09/01/2025 11:30 AM EST Office Visit [facility] PULMONARY & CRITICAL CARE MEDICINE 3000 [facility] [address] [place] [phone] Maxine Gibson, TOP DYEING MACHINE LOADER [address] [place] [address] 09/02/2025 10:00 AM EST Office Visit [facility] UROLOGY 1760 [facility] [address] [place] [address] ArtFaheemSanam, TOP DYEING MACHINE LOADER 1760 [facility] [address] [place] [phone] 09/24/2025 9:15 AM EST Office Visit [facility] RHEUMATOLOGY [address] [phone] John Sheppard, PARVIZ [address] [phone] 02/03/2026 10:45 AM EDT Office Visit [facility] RHEUMATOLOGY [address] [phone] Patrice Santana, [address] [phone] documented as of this encounter Visit Diagnoses [...] documented as of this encounter Care Teams Damper Fitter Relationship Specialty Start Date End Date Reza Panchal MD [address] [place] [address] PCP - General Family Medicine 09/30/24 documented as of this encounter
--- OUTSIDE RECORDS SUMMARY | 2025-07-18 09:36 | XMS_ITS | Encounter Summary ---
[facility] Address [address] [place] [address] Care Team Providers Care Wool Hanker Name Role Phone Reza Panchal MD Primary Care Provider +1- [phone] Reason for Visit * Reason Onset Date Comments CANCEL PROCEDURE 05/28/2025 Encounter Details Date Type Department Care Team (Late st Contact Info) Description 05/28/2025 Telephone [facility] GASTROENTEROLOGY [address] [address] Ivelisse Cordon MD 1720 [place] [address] CANCEL PROCEDURE Social History Tobacco Use Types Packs/Day Years Used Date Smoking Tobacco: Never Passive Smoke Exposure: Past Smokeless Tobacco: Never Comments: smokes, for 45 years Alcohol Use Standard Drinks/Week Comments No 0 (1 standard drink = 0.6 oz pur e alcohol) [facility] Utilities Answer Date Recorded In the past 12 months has [employer], gas, oil, or water company threatened to [...] patient: Emergency Contact Best call back number: [phone] Chief complaint: CANCEL PROCEDURE Type of visit: EGD Requested date: NONE If rescheduling, when is the original appointment: 06/23/2025 Additional notes:PT HAD TO HAVE EGD DONE WHILE IN THE HOSPITAL. PLEASE CANCEL PROCEDURE documented in this encounter Plan of Treatment Upcoming Encounters Date Type Department Care Team (Late st Contact Info) Description 07/21/2025 11:30 AM EDT Office Visit [facility] UROLOGY 1760 [facility] 502 [place] [address] Sanam Saunders APRN 1760 [facility] [address] [place] [address] 07/23/2025 10:00 AM EDT Infusion [facility] OUTPATIENT ONCOLOGY [place] [address] [place] [address] 09/01/2025 11:00 AM EST Office Visit [facility] PULMONARY & CRITICAL CARE MEDICINE 3000 [facility] [address] [place] [phone] 09/01/2025 11:30 AM EST Office Visit [facility] PULMONARY & CRITICAL CARE MEDICINE 3000 [facility] [address] [place] [address] Maxine Gibson, HOME HEALTH CLINICIAN 2400 [place] [address] 09/02/2025 10:00 AM EST Office Visit [facility] UROLOGY [address] [place], [place] [phone] Sanam Saunders, HOME HEALTH CLINICIAN 1760 [facility] [address] [place], [place] [address] 09/24/2025 9:15 AM EST Office Visit [facility] RHEUMATOLOGY [address] [place] [address] [phone] John Sheppard, PARVIZ [address] [phone] 02/03/2026 10:45 AM EDT Office Visit [facility] RHEUMATOLOGY [address] [place] [address] [address] Patrice Santana, [address] [phone] documented as of this encounter Goals Goal [...] documented as of this encounter Care Teams Wool Hanker Relationship Specialty Start Date End Date Reza Panchal MD [address] [place] [address] PCP - General Family Medicine 09/30/24 documented as of this encounter
--- OUTSIDE RECORDS SUMMARY | 2025-07-18 09:36 | XMS_ITS | Clinical Summary ---
Author Organization Healthcare Address [address] [place] [address] Care Team Providers Care Controller Instructor Name Role Phone Reza Panchal MD Primary Care Provider +1- [phone] Allergies Active Allergy Reactions Criticality Noted Date [...] file Insurance [employer] MED[place] Care Teams Controller Instructor Relationship Specialty Start Date End Date Reza Panchal MD [address] [place] [address] PCP - General 08/17/24
--- OUTSIDE RECORDS SUMMARY | 2025-07-18 09:36 | XMS_ITS | Encounter Summary ---
[facility] Organization [facility] Address [address] [place] [address] Care Team Providers Care Master [employer] Name Role Phone Reza Panchal MD Primary Care Provider +1- [phone] Reason for Visit * Reason Comments Med Refill Encounter Details Date Type Department Care Team (Late st Contact Info) Description 07/03/2023 Refill [facility] PRIMARY CARE [address] [address] Huyen Hall MD [address] [address] Reactive depression; Type 2 diabetes mellitus with [...] AM EDT Office Visit [facility] UROLOGY [facility] 502 [place] [address] Sanam Saunders, PARVIZ 1760 [facility] [address] [place] [address] 07/23/2025 10:00 AM EDT Infusion [facility] OUTPATIENT ONCOLOGY [place] [address] [place] [address] 09/01/2025 11:00 AM EST Office Visit [facility] PULMONARY & CRITICAL CARE MEDICINE 3000 [facility] [address] [place] [address] 09/01/2025 11:30 AM EST Office Visit [facility] PULMONARY & CRITICAL CARE MEDICINE 3000 [facility] [address] [place] [address] Maxine Gibson, TELLER VAULT [address] [place] [address] 09/02/2025 10:00 AM EST Office Visit [facility] UROLOGY 1760 [facility] [address] [place] [address] Sanam Saunders, TELLER VAULT 1760 [facility] [address] [place], [place] [address] 09/24/2025 9:15 AM EST Office Visit [facility] RHEUMATOLOGY [address] [phone] John Sheppard, TELLER VAULT [address] [phone] 02/03/2026 10:45 AM EDT Office Visit [facility] RHEUMATOLOGY [address] [place] [address] [address] Patrice Santana, [address] [phone] documented as of this encounter Visit Diagnoses [...] documented as of this encounter Care Teams Master [employer] Relationship Specialty Start Date End Date Reza Panchal MD [facility]0 [place] [address] PCP - General Family Medicine 09/30/24 documented as of this encounter
--- OUTSIDE RECORDS SUMMARY | 2025-07-18 09:36 | XMS_ITS | Encounter Summary ---
Author Organization Healthcare Address [address] [place] [address] Care Team Providers Care Battalion Fire Chief Name Role Phone Reza Panchal MD Primary Care Provider +1- [phone] Encounter Details Date Type Department Care Team (Late st Contact Info) Description 08/17/[address] [facility] - Pediatrics [address] [place] [phone] Tian Ramírez MD [address] [place] [id number] Social History Tobacco Use Types Packs/Day [...] on filedocumented in this encounter Care Teams Battalion Fire Chief Relationship Specialty Start Date End Date Reza Panchal MD [address] [place] [address] PCP - General 08/17/24 documented as of this encounter
--- OUTSIDE RECORDS SUMMARY | 2025-07-18 09:36 | XMS_ITS | Encounter Summary ---
Author Organization [facility] Address [address] [place] [address] Care Team Providers Care Auto Engine Mechanic Name Role Phone Reza Panchal MD Primary Care Provider +1- [phone] Encounter Details Date Type Department Care Team (Latest Contact Info) Description 05/23/2025 Travel Social History Tobacco Use Types Packs/Day Years Used Date Smoking Tobacco: Never Passive Smoke Exposure: Past Smokeless Tobacco: Never Comments: smokes, for 45 years Alcohol Use Standard Drinks/Week Comments No 0 (1 standard drink = 0.6 oz pur e alcohol) [facility] Utilities Answer Date Recorded In the [...] Description 07/21/2025 11:30 AM EDT Office Visit [facility] UROLOGY 1760 [facility] 502 [place] [address] Sanam Saunders, DESKTOP ADMINISTRATOR 1760 [facility] [address] [place] [address] 07/23/2025 10:00 AM EDT Infusion [facility]Y [address] [place] [phone] 09/01/2025 11:00 AM EST Office Visit [facility] PULMONARY & CRITICAL CARE MEDICINE 3000 [facility] 240 [place] [phone] 09/01/2025 11:30 AM EST Office Visit [facility] PULMONARY & CRITICAL CARE MEDICINE 3000 [facility] [address] [place] [phone] Maxine Gibson, DESKTOP ADMINISTRATOR 2400 [place] [address] 09/02/2025 10:00 AM EST Office Visit [facility] UROLOGY 1760 [facility] 502 [place] [address] Sanam Saunders, DESKTOP ADMINISTRATOR 1760 [facility] [address] [place] [address] 09/24/2025 9:15 AM EST Office Visit [facility] RHEUMATOLOGY 330 [facility] 100 [place] [address] John Sheppard APRN 330 [facility] 100 [place] [address] 02/03/2026 10:45 AM EDT Office Visit [facility]UMATOLOGY 330 [facility] 100 [place] [address] Patrice SantanaDO [place] [address] [place] [address] documented as of this encounter Goals Goal [...] as of this encounter Care Teams Auto Engine Mechanic Relationship Specialty Start Date End Date Reza Panchal MD [address] [place] [address] PCP - General Family Medicine 09/30/24 documented as of this encounter
--- OUTSIDE RECORDS SUMMARY | 2025-07-18 09:36 | XMS_ITS | Encounter Summary ---
[facility] Address [address] [place] [address] Care Team Providers Care Software Support Representative Name Role Phone Reza Panchal MD Primary Care Provider +1- [phone] Encounter Details Date Type Department Care Team (Late st Contact Info) Description 06/05/2025 Telephone [facility] RHEUMATOLOGY [address] [address] John Sheppard APRN [address] [address] Social History Tobacco Use Types Packs/Day Years Used Date Smoking Tobacco: Never Passive Smoke Exposure: Past Smokeless Tobacco: Never Comments: smokes, for 45 years Alcohol Use Standard Drinks/Week Comments No 0 (1 standard drink = 0.6 oz pur e alcohol) [facility] Utilities Answer Date Recorded In the past 12 months has [employer], gas, oil, or water [employer] threatened to shut off services in your [...] been on alendronate but thinks it was [phone] when she originally started it. It was [...] AM EDT Please get hospital records from [facility]. documented in this encounter Plan of Treatment Upcoming Encounters Date Type Department Care Team (Late st Contact Info) Description 07/21/2025 11:30 AM EDT Office Visit [facility] UROLOGY 1760 [facility] [address] [place] [phone] Sanam Saunders APRN 1760 [facility] [address] [place] [phone] 07/23/2025 10:00 AM EDT Infusion [facility] OUTPATIENT ONCOLOGY [place] [address] [place] [address] 09/01/2025 11:00 AM EST Office Visit [facility] PULMONARY & CRITICAL CARE MEDICINE 3000 [facility] [address] [place] [phone] 09/01/2025 11:30 AM EST Office Visit [facility] PULMONARY & CRITICAL CARE MEDICINE 3000 [facility] [address] [place] [address] Maxine Gibson, LINDERMAN OPERATOR [address] [place] [address] 09/02/2025 10:00 AM EST Office Visit [facility] UROLOGY 1760 [facility] [address] [place] [address] Sanam Saunders, LINDERMAN OPERATOR 1760 [facility] [address] [place], [place] [address] 09/24/2025 9:15 AM EST Office Visit [facility] RHEUMATOLOGY [address] [phone] John Sheppard APRN [address] [phone] 02/03/2026 10:45 AM EDT Office Visit [facility] RHEUMATOLOGY [address] [place] [address] [phone] Patrice Santana, [address] [phone] documented as of this encounter Goals Goal [...] documented as of this encounter Care Teams Software Support Representative Relationship Specialty Start Date End Date Reza Panchal MD [address] [place] [address] PCP - General Family Medicine 09/30/24 documented as of this encounter
--- NOTE | 2025-07-18 09:54 | CT_ITS ---
FINAL REPORT TECHNIQUE: After the administration of oral and intravenous contrast, axial images were obtained through the abdomen and pelvis by computed tomography. The study was performed with techniques to keep radiation dose as low as reasonably achievable, (ALARA). Individual dose reduction techniques using automated exposure control or adjustment of mA and/or kV according to the patient's size were employed. CLINICAL HISTORY: Abdominal and left flank pain COMPARISON: 07/16/2025 FINDINGS: Abdomen: There is scarring at the bases. There is moderate diffuse fatty infiltration of the liver. Moderate hiatal hernia is identified. The gallbladder is present. The spleen, pancreas, adrenals and kidneys appear unremarkable. The aorta is normal in caliber. There is no free fluid or adenopathy. Pelvis: There is a duodenal diverticulum with some opaque debris in the dependent portion of the diverticulum. Diverticulum measures 4.4 cm in transverse dimension. Metallic clip is seen at the level of the pylorus, unchanged, probably due to endoscopic clip. There are scattered diverticuli throughout the sigmoid colon. The appendix is normal. The urinary bladder is unremarkable. There is no free fluid or adenopathy. The osseous structures demonstrate lumbar scoliosis convex to the left measuring 20 degrees. There are advanced changes of degenerative disc disease at T12-L1 and L1-2. There is minimal spondylolisthesis of L1 on 2. IMPRESSION: Moderate duodenal diverticulum. Endoscopic clip at the pylorus channel. Reviewed, Interpreted and Dictated by Corey Vargas MD Transcribed by Fouzia Carlson Authenticated and [facility]
[2025-07-18 10:00] LABS: Hematocrit 37.6 % (37.0-47.0); Hemoglobin 12.0 g/dL (12.2-16.2); Immature Granulocytes % 0.4 %; Mean Corpuscular HGB Conc 31.9 g/dL (31.8-35.4); Mean Corpuscular Hemoglobin 28.4 pg (27.0-31.2); Mean Corpuscular Volume 88.9 fl (81-99); Nucleated Red Blood Cells % 0 %; Platelet Count 267 K/mm3 (142-424); Red Blood Count 4.23 M/mm3 (4.20-5.40); Red Cell Distribution Width-SD 42.6 fL; White Blood Count 7.8 K/mm3 (4.8-10.8)
[2025-07-18] MEDS: HYDROMORPHONE 2MG/ML SYRINGE 0.5 MG IV ×2 (10:05→11:02)
[2025-07-18] MEDS: ONDANSETRON 4MG/2ML VIAL 4 MG IV (10:05)
[2025-07-18 10:25] LABS: Alanine Aminotransferase 32 U/L (12-78); Albumin Level 4.4 g/dl (3.5-5.0); Albumin/Globulin Ratio 1.3 (1.1-1.8); Alkaline Phosphatase 135 U/L (38-126); Anion Gap 18.4 mEq/L (5-15); Aspartate Amino Transferase 32 U/L (14-36); Bilirubin,Total 0.7 mg/dl (0.2-1.3); Blood Urea Nitrogen 10 mg/dl (7-17); Calcium 9.7 mg/dl (8.4-10.2); Carbon Dioxide 24 mmol/L (22.0-30.0); Chloride 102 mmol/L (98-107); Creatinine Clearance Estimated 77 mL/min (50-200); Creatinine,Serum 0.80 mg/dl (0.52-1.04); Estimated Glomerular Filt Rate 71 ml/min (>60); GFR (African American) 86 ML/MIN (>60); Globulin 3.5 g/dL (1.3-3.2); Glucose 149 mg/dl (74-100); Lipase 63 U/L (23-300); Potassium 4.4 mmoL/L (3.5-5.1); Sodium 140 mmol/L (136-145); Total Protein,Serum 7.9 g/dl (6.3-8.2)
[2025-07-18 10:38] LABS: Troponin I < 0.01 ng/ml (0.00-0.034)
[2025-07-18] MEDS: IOPAMIDOL-370 (76%);100ML BOTTLE 75 ML IV (10:49)
[2025-07-18] MEDS: SODIUM CHLORIDE 0.9% 10ML SYR (RAD ONLY) 10 ML IV (10:49)
[2025-07-18] MEDS: KETOROLAC 30MG/ML VIAL 30 MG IV (11:02)
[2025-07-18] MEDS: LACTATED RINGERS 1000ML 1,000 ML 999 ML IV (11:20)
[2025-07-18 11:38] LABS: Microscopic, Urine URINE MICROSCOPIC (MICROSCOPIC)
[2025-07-18 11:41] LABS: Bilirubin,Urine Negative (Negative); Color,Urine YELLOW (Yellow); Glucose,Urine (UA) Negative (Negative); Ketones,Urine 1+ (Negative); Leukocyte Esterase,Urine 1+ (Negative); PH,Urine 7.5 (5.0-8.5); Protein,Urine Negative (Negative); Specific Gravity, Urine 1.010 (1.005-1.030); Urobilinogen,Urine 0.2 EU/dl (0.2)
[2025-07-18 11:54] LABS: Bacteria,Urine Trace /lpf
--- NOTE | 2025-07-18 13:23 | [facility].EDGENADL ---
Discharge Plan Disposition Patient Disposition: Home, Self-Care Condition: Good Prescriptions Prescriptions: New famotidine [Pepcid] 20 mg tablet 20 mg PO DAILY 20 Days Qty: 20 0RF ketorolac 10 mg tablet 10 mg PO Q8H PRN (Reason: pain) Qty: 14 0RF Rx Instructions: maximum total duration of 5 days from all oral, intranasal, or parenteral formulations No Action nitroglycerin 0.4 mg tablet, sublingual 0.4 mg sublingual Q5-15M PRN (Reason: Chest Pain) Rx Instructions: do not exceed 3 doses per episode cholecalciferol (vitamin D3) 125 mcg (5,000 unit) capsule 125 mcg PO DAILY mecobalamin (vitamin B12) 500 mcg tablet,chewable 500 mcg PO DAILY fluticasone propion-salmeterol 100-50 mcg/dose blister with device 1 ea inhalation BID Patient Comments: INHALE 1 PUFF BY MOUTH TWICE DAILY nystatin 100,000 unit/gram powder 1 applic topical TID estradiol 0.01 % (0.1 mg/gram) cream 1 appful vaginal DIRECTED Rx Instructions: TWICE WEEKLY potassium chloride 10 mEq tablet,ER particles/crystals 10 meq PO DAILY Qty: 90 3RF levothyroxine 75 mcg tablet 75 mcg PO DAILY Qty: 90 3RF memantine 10 mg tablet 10 mg PO DAILY Qty: 90 3RF mirtazapine 15 mg tablet 15 mg PO HS Qty: 90 3RF montelukast 10 mg tablet 10 mg PO DAILY Qty: 90 3RF zoledronic [id number] [Reclast] 5 mg/100 mL piggyback IV metoprolol succinate 50 mg tablet extended release 24 hr 50 mg PO QHS Qty: 90 3RF diltiazem HCl [Cartia XT] 120 mg capsule,extended release 24hr 120 mg PO DAILY Qty: 30 2RF (DME) Diabetic Shoes (DME) Misc See Rx Instructions .ROUTE .MEDSUPPLY Qty: 1 0RF Rx Instructions: [facility] Please dispense one (1) pair of Diabetic shoes with inserts albuterol sulfate 90 mcg/actuation HFA aerosol inhaler inhalation Patient Comments: INHALE 2 PUFFS BY MOUTH EVERY 4 HOURS NEEDED FOR WHEEZING OR SHORTNESS OF BREATH prasugrel HCl [Effient] 10 mg tablet 10 mg PO DAILY 30 Days Qty: 30 6RF triamterene-hydrochlorothiazid 37.5-25 mg capsule 1 cap PO DAILY Qty: 30 5RF atorvastatin 20 mg tablet 20 mg PO HS Qty: 90 3RF sulfamethoxazole-trimethoprim [Bactrim DS] 800-160 mg tablet 1 tab PO Q12H 5 Days Qty: 10 0RF omeprazole 40 mg capsule,delayed release(DR/EC) 40 mg PO DAILY Qty: 30 1RF sucralfate 1 gram tablet 1 g PO QID 30 Days Qty: 120 3RF gabapentin 300 mg capsule 300 mg PO TID Qty: 90 3RF fluticasone propionate 50 mcg/actuation spray,suspension 2 spray INTRANASAL DAILY magnesium oxide 500 mg magnesium tablet 500 mg PO DAILY levofloxacin 750 mg tablet 750 mg PO DAILY 7 Days Qty: 7 0RF nitrofurantoin monohyd/m-cryst [Macrobid] 100 mg capsule 100 mg PO HS Rx Instructions: must administer with a meal/food Referrals Follow up/Referrals: Reza Panchal MD [Primary Care Provider, Family Practice] - See instructions Activity Restrictions/Add. Instructions Additional Instructions/Restrictions: Your CT scan today was normal. I want you to continue taking Levaquin for your urinary tract infection. You can take Toradol for pain at home, however this medication can upset your stomach. Therefore I want you to take it in addition to Pepcid. If you have any new or worsening symptoms please return to the emergency department for further evaluation. Clinical Impressions Clinical Impression: Acute flank pain, Urinary tract infection Print Language Print Language: [place] Discharge ED Provider: Mio Cuenca Adult HPI General Chief complaint: PAIN Stated complaint: SOA, wheezing Time Seen by Provider: 07/18/25 09:40 Mode of Arrival: Wheelchair Source of Information: Patient and Relative Description of Symptoms (Recalled from ER Triage Doc. by RN): Patient reports being seen here on Monday and was discharged with diagnoses of pneumonia and UTI. States this morning she woke up with extreme lower back pain and difficulty breathing. History of Present Illness HPI narrative: This is a 70-year-old female patient, with past medical history of COPD on 2 L at home, diabetes, dementia, hyperlipidemia, who is presenting to the emergency department today for evaluation of abdominal pain. The patient was actually seen in our emergency department on 07/16/2025 for evaluation of left flank pain that radiates into the center of her abdomen. At that time she was diagnosed with a urinary tract infection as well as atypical pneumonia. She was discharged home with Levaquin. She states that since discharge her pain is significantly worsened and is still radiating from the left flank down towards the left lower quadrant of her abdomen. She has taken conservative pain control medications at home without relief of symptoms. The triage note does state that the patient was having shortness of breath and wheezing. However, the patient specifically states that she feels that she is breathing quickly secondary to how intense her pain is and she does not actually feel as if she is experiencing increasing shortness of breath Related Data Home Medications ?Medication ?Instructions ?Recorded ?Confirmed fluticasone propionate 50 2 spray intranasal DAILY 09/16/24 07/16/25 mcg/actuation nasal spray,suspension magnesium oxide 500 mg PO DAILY 12/16/24 07/16/25 cholecalciferol (vitamin D3) 125 125 mcg PO DAILY 01/13/25 07/16/25 mcg (5,000 unit) capsule mecobalamin (vitamin B12) 500 mcg 500 mcg PO DAILY 01/13/25 07/16/25 chewable tablet nitroglycerin 0.4 mg sublingual 0.4 mg sublingual Q5-15M PRN Chest 01/13/25 07/16/25 tablet Pain fluticasone 100 mcg-salmeterol 50 1 ea inhalation BID 01/20/25 07/16/25 mcg/dose blistr powdr for inhalation estradiol 0.01% (0.1 mg/gram) 1 appful vaginal DIRECTED 05/19/25 07/16/25 vaginal cream nystatin 100,000 unit/gram topical 1 applic topical TID 05/19/25 07/16/25 powder nitrofurantoin 100 mg PO HS 05/25/25 07/16/25 monohydrate/macrocrystals 100 mg capsule (Macrobid) albuterol sulfate 90 mcg/actuation inhalation 05/29/25 07/16/25 aerosol inhaler zoledronic acid 5 mg/100 mL in ea IV Osteoporosis 07/10/25 07/16/25 mannitol 5 %-water intravenous piggybck (Reclast) Previous Rx's ?Medication ?Instructions ?Recorded levothyroxine 75 mcg tablet 75 mcg PO DAILY #90 tabs 05/19/25 memantine 10 mg tablet 10 mg PO DAILY #90 tabs 05/19/25 mirtazapine 15 mg tablet 15 mg PO HS #90 tabs 05/19/25 montelukast 10 mg tablet 10 mg PO DAILY #90 tabs 05/19/25 potassium chloride 10 mEq 10 meq PO DAILY #90 tabs 05/19/25 tablet,extended release(part/cryst) Diabetic Shoes (DME) #1 ea 05/20/25 atorvastatin 20 mg tablet 20 mg PO HS #90 tabs 06/19/25 prasugrel HCl 10 mg tablet 10 mg PO DAILY 30 days #30 tabs 06/19/25 (Effient) triamterene 37.5 1 cap PO DAILY #30 caps 06/19/25 mg-hydrochlorothiazide 25 mg capsule gabapentin 300 mg capsule 300 mg PO TID #90 caps 07/04/25 diltiazem HCl 120 mg 120 mg PO DAILY #30 caps 07/10/25 capsule,extended release 24 hr (Cartia XT) metoprolol succinate 50 mg 50 mg PO QHS #90 tabs 07/10/25 tablet,extended release 24 hr sulfamethoxazole 800 1 tab PO Q12H 5 days #10 tabs 07/16/25 mg-trimethoprim 160 mg tablet (Bactrim DS) levofloxacin 750 mg tablet 750 mg PO DAILY 7 days #7 tabs 07/17/25 omeprazole 40 mg capsule,delayed 40 mg PO DAILY #30 caps 07/17/25 release sucralfate 1 gram tablet 1 g PO QID 30 days #120 tabs 07/17/25 famotidine 20 mg tablet (Pepcid) 20 mg PO DAILY 20 days #20 tabs 07/18/25 ketorolac 10 mg tablet 10 mg PO Q8H PRN pain #14 tabs 07/18/25 Allergies Allergy/AdvReac Type Severity Reaction Status Date / Time hydrocodone Allergy Mild Unknown Verified 07/16/25 13:39 allergy reaction acetaminophen (From Allergy Unknown Verified 07/16/25 13:39 Tylenol-Codeine #3) allergy reaction metformin Allergy Unknown Verified 07/16/25 13:39 allergy reaction codeine AdvReac Mild Unknown Verified 07/16/25 13:39 allergy reaction morphine AdvReac Gastrointestinal Verified 07/16/25 13:39 Upset protamine AdvReac Difficulty Verified 07/16/25 13:39 Breathing PFSH [facility] Disclaimer: The information contained in this section may have been updated after the patient was seen, as this information can be updated by other users. 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 Edema Chest pain Hypomagnesemia Sepsis GI bleeding Pneumonia involving right lung Gout attack Bacteremia Headache Lower respiratory infection (e.g., bronchitis, pneumonia, pneumonitis, pulmonitis) Atypical pneumonia Headache, temporal Frontal headache Dyspnea Sinusitis, acute Nausea & vomiting Diarrhea Fever Sepsis Back pain Screening for osteoporosis Bacteremia due to Klebsiella pneumoniae UTI (urinary tract infection) Keratosis Incurvated nail Hypomagnesemia Vaginal irritation Dysuria Stress incontinence Urge incontinence Overactive bladder Allergic rhinitis Coronary artery calcification seen on CAT scan Fatigue History of DVT of lower extremity History of sleep apnea Bronchitis, mucopurulent recurrent Dyspnea on exertion Bronchiectasis Asthma Hyperlipidemia associated with type 2 diabetes mellitus Urinary incontinence Onychomycosis Diabetic neuropathy Breast cancer screening by mammogram Dementia Diabetes mellitus Bronchitis COPD (chronic obstructive pulmonary disease) Colonoscopy planned Gallbladder anomaly Rheumatoid arthritis Osteoporosis Back pain Acid reflux disease Carpal tunnel syndrome Anxiety Hypothyroidism Sleep apnea High blood pressure Arthritis Varicose veins of ankle Depression Acute asthma Surgical History History of cataract surgery History of esophagogastroduodenoscopy (EGD) H/O right heart catheterization History of cholecystectomy H/O tubal ligation History of hernia repair Total knee replacement status Social History Smoking Status: Never smoker alcohol intake: never substance use type: denies use current occupational status: unemployed Travel in the last 8 weeks?: None Have you lived/traveled outside [place] in past 30 days?: No Contact w/someone who lives/traveled outside [place] past 30 days?: No Exposure to someone with infectious disease in past 14 days?: No Do you have a fever (greater than 100.4 F or 38 C)?: No Have you tested positive for COVID-19?: No Exposed to someone with COVID-19 in past 14 days?: No Do you have a sore throat?: No Do you have a cough?: No Do you have any weakness?: No Do you have any diarrhea?: No Are you experiencing any unusual bleeding?: No Do you have any muscle aches/pain?: No Do you have any abdominal pain?: No Are you experiencing loss of taste or smell?: No Other 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 Have you received the Flu Vaccine for this season: No Have you received the Pneumonia Vaccine: Yes ROS Obtained: Yes Systems reviewed as appropriate & no additional complaints except as documented Physical Exam General General appearance: other (See MDM) Respiratory Respiratory exam: Present other (See MDM) Cardiovascular Cardiovascular exam: Present other (See MDM) Neurological Exam Neurological exam: Present other (See MDM) Medical Decision Making Medical Records Medical records reviewed: Yes I reviewed the patient's medical records. Screening: Per USPSTF and CDC recommendations, given the prevalence of disease in our region, it is our hospital?s policy to screen for HIV and viral Hepatitis for all patients aged 18 and over and those with ongoing risk factors. Andre Inquiry Pt receiving controlled substance: No Andre was queried for this patient: No Vital Signs: 07/18/25 09:31 07/18/25 09:32 07/18/25 10:01 Temperature 97.9 F Temperature Source Oral Pulse Rate 84 80 Pulse Rate [Radial] 92 H Respiratory Rate 20 Blood Pressure 134/67 138/74 Blood Pressure [Right Arm] 134/67 Blood Pressure Mean [Right Arm] 89 Blood Pressure Source [Right Arm] Automatic Cuff Blood Pressure Position [Right Arm] Sitting 02 Sat by Pulse Oximetry 98 99 98 Oxygen Delivery Method Room Air Oxygen Flow Rate (LPM) 07/18/25 10:30 07/18/25 11:00 07/18/25 11:31 Temperature Temperature Source Pulse Rate 79 81 100 H Pulse Rate [Radial] Respiratory Rate 28 H Blood Pressure 138/75 144/73 H 121/83 Blood Pressure [Right Arm] Blood Pressure Mean [Right Arm] Blood Pressure Source [Right Arm] Blood Pressure Position [Right Arm] 02 Sat by Pulse Oximetry 95 95 95 Oxygen Delivery Method Nasal Cannula Oxygen Flow Rate (LPM) 2 2 Lab Data Lab Results 07/18/25 09:40: WBC 7.8, RBC 4.23, Hgb 12.0 L, Hct 37.6, MCV 88.9, MCH 28.4, MCHC 31.9, RDW 13.2, Plt Count 267, MPV 9.7, Neut % (Auto) 61.1, Lymph % (Auto) 24.2, [place] % (Auto) 12.4 H, Eos % (Auto) 1.5, Baso % (Auto) 0.4, Neut # (Auto) 4.8, Lymph # (Auto) 1.9, [place] # (Auto) 1.0, Eos # (Auto) 0.1, Baso # (Auto) 0.0, Sodium 140, Potassium 4.4, Chloride 102, Carbon Dioxide 24, Anion Gap 18.4 H, BUN 10, Creatinine 0.80, Estimated Creat Clear 77, Estimated GFR 71, Est GFR ( Amer) 86, Glucose 149 H, Lactate 3.4 H, Calcium 9.7, Total Bilirubin 0.7, AST 32, ALT 32, Alkaline Phosphatase 135 H, Troponin I < 0.01, Total Protein 7.9, Albumin 4.4, Globulin 3.5 H, Albumin/Globulin Ratio 1.3, Lipase 63 07/18/25 11:35: Urine Color Yellow, Urine Appearance Clear, Urine pH 7.5, Ur Specific [place] 1.010, Urine Protein Negative, Urine Glucose (UA) Negative, Urine Ketones 1+, Urine Blood Negative, Urine Nitrate Negative, Urine Bilirubin Negative, Urine Urobilinogen 0.2, Ur Leukocyte Esterase 1+ A, Urine RBC None, Urine WBC 5-10, Ur Squamous Epith Cells 5-10, Urine Bacteria Trace 07/18/25 09:40 07/18/25 09:40 Orders (Tests/Meds): ED MEDICATIONS Discontinued Medications Generic Name Dose Route Start Last Admin Trade Name Freq PRN Reason Stop Dose Admin Hydromorphone HCl 0.5 mg 07/18/25 09:52 07/18/25 10:05 Hydromorphone 2mg/Ml Syringe IV 07/18/25 09:53 0.5 mg ONCE ONE Administration Hydromorphone HCl 0.5 mg 07/18/25 10:56 07/18/25 11:02 Hydromorphone 2mg/Ml Syringe IV 07/18/25 10:57 0.5 mg ONCE ONE Administration Lactated Ringer's 1,000 mls @ 999 mls/hr 07/18/25 11:14 07/18/25 11:20 Lactated Ringer's 1000 Ml Bag IV 07/18/25 12:14 999 mls/hr .Q1H1M ONE Administration Iopamidol 75 ml 07/18/25 10:48 07/18/25 10:49 Iopamidol-370 (76%);100ml Bottle IV 07/18/25 10:49 75 ml ONCE ONE Administration Ketorolac Tromethamine 30 mg 07/18/25 10:56 07/18/25 11:02 Ketorolac 30mg/Ml Vial IV 07/18/25 10:57 30 mg ONCE ONE Administration Ondansetron HCl 4 mg 07/18/25 09:52 07/18/25 10:05 Ondansetron 4mg/2ml Vial IV 07/18/25 09:53 4 mg ONCE ONE Administration Sodium Chloride 10 ml 07/18/25 10:48 07/18/25 10:49 Sodium Chloride 0.9% 10ml Syr (Rad Only) IV 07/18/25 10:49 10 ml ONCE ONE Administration ORDERS Category Date Time Status CT abdomen pelvis w con Stat Cat Scan 07/18/25 09:54 Completed CBC w/Auto Diff [Complete Blood Count Auto Diff] Stat Lab 07/18/25 09:40 Completed CMP [Comprehensive Metabolic Panel] Stat Lab 07/18/25 09:40 Completed Lactic Acid Stat Lab 07/18/25 09:40 Completed Lipase Stat Lab 07/18/25 09:40 Completed Troponin I Stat Lab 07/18/25 09:40 Completed Urinalysis and Microscopic Stat Lab 07/18/25 11:35 Completed Urine Culture Stat Micro 07/18/25 11:35 Received Medical Decision Narrative: In summary, this is a 70-year-old female patient who is presenting to the emergency department today for evaluation of left flank pain that is radiating into her abdomen. Patient was seen here the other day and had a CT scan of the abdomen and pelvis that was normal and was ultimately discharged home with a diagnosis of pyelonephritis and atypical pneumonia. She has been taking Levaquin and states that her pain became uncontrollable this morning. On initial evaluation of the patient she was acting quite hysterical and seemed to be in an immense amount of pain. She was nontoxic appearance, hemodynamically stable, and saturating well on her baseline 2 L. She is neurologically intact. On physical examination she does have left-sided abdominal tenderness. She also has left flank tenderness. No tenderness of the spine. No tenderness of the sacrum. Heart and lungs are clear to auscultation bilaterally without wheezing, rales, rhonchi, or crackles. Differential diagnosis includes pyelonephritis, urolithiasis, urinary tract infection, bowel obstruction, diverticulitis, among other intra-abdominal catastrophes. Workup was initiated with hematologic labs as well as a CT scan of the abdomen and pelvis. The labs were personally interpreted by me and demonstrate no evidence of leukocytosis or actionable anemia. CMP demonstrates no significant electrolyte derangements or evidence of acute kidney injury. Troponin is less than 0.01. Urinalysis shows 1+ leukocyte esterase as well as 5-10 white blood cells and bacteria. This is consistent with a urinary tract infection that she was diagnosed with the other day. I have forced a urine culture to ensure that Levaquin is the appropriate treatment for this. We initially treated the patient with Dilaudid as well as lactated Ringer's. On repeat assessment she was still experiencing some pain so we administered 30 mg of Toradol. Following treatment with Toradol her pain became controlled and she was resting comfortably in no acute distress. CT scan of the abdomen and pelvis was personally interpreted by me and demonstrates calcifications near the urinary bladder in the pelvis. My initial thought was that this was a potential urinary stones. After having a direct conversation with the radiologist who interpreted the scan, he states that there is no urinary stone present and that this is likely a phlebolith despite the fact that this calcification was not present on prior scan 2 days ago. On reevaluation of the patient she was hemodynamically stable and her pain was well-controlled. We have discussed options for treatment moving forward. Through shared decision making we have decided to send the patient home with a prescription for Toradol and have her continue taking Levaquin. Return precautions have been given in the event that she has any new or worsening symptoms. At this time all questions have been answered and all parties are agreeable with the decision to discharge home Critical Care Critical Care Time Critical Care Time: No
[2025-07-18 13:56] LABS: Reflex Lactic Add Lactic Reflex
== END 2025-07-18 13:51 | disposition home or self-care (01) ==
PROVIDERS: Emergency Provider Student in an Organized Health Care Education/Training Program; PCP Family Medicine
DX: N39.0 Urinary tract infection, site not specified (principal); R10.32 Left lower quadrant pain; R74.02 Elevation of levels of lactic acid dehydrogenase [LDH]
CPT/HCPCS: 74177; 80053; 81001; 83605; 83690; 84484; 85025; 87086; 93005; 96361; 96374; 96375; 96376; 99285; J1171; J1885; J2405; J7120; Q9967

== ENCOUNTER 2025-07-22 11:52 | Outpatient (CLI) | payer MEDICARE, MEDICAID, SELFPAY ==
--- OUTSIDE RECORDS SUMMARY | 2017-02-08 12:08 | XMS_ITS | Encounter Summary ---
[facility] Organization [facility] Address [address] [place] [address] Care Team Providers Care Yarder Boss Name Role Phone Lizbeth Ibarra MD Primary Care Provider Unav ailable Encounter Details Date Type Department Care Team (Late st Contact Info) Description 02/08/2017 12:08 PM EDT Hospital Encounter [facility] PULMONARY & CRITICAL CARE MEDICINE [address]00 [place] [phone] Social History Tobacco Use Types Packs/Day Years Used Date Smoking Tobacco: Never Passive Smoke Exposure: Past Smokeless Tobacco: Never Comments: smokes, for 45 years Alcohol Use Standard Drinks/Week Comments Never 0 (1 standard drink = 0.6 oz pur e alcohol) [facility] Utilities Answer Date Recorded In the past 12 months has [employer], gas, oil, or water [employer] threatened to shut off services in your [...] or training? Not on file Preferred Language Finnish 01/28/2025 PHQ-2 Answer Date Recorded Retired PHQ-9: [...] 3:42 PM EDT Susan Burk RN * [place] Suicide Severity Rating Scale (Screener/Recent Self-Report) Question [...] Care Team (Late st Contact Info) Description 08/13/2025 10:00 AM EDT Infusion [facility] OUTPATIENT ONCOLOGY [address] [place] [address] 09/01/2025 11:00 AM EST Office Visit [facility] PULMONARY & CRITICAL CARE MEDICINE 3000 [facility] 240 [place] [address] 09/01/2025 11:30 AM EST Office Visit [facility] PULMONARY & CRITICAL CARE MEDICINE 3000 [facility] [address] 240 [place] [address] Maxine Gibson, WELDER EXPLOSION 2400 [place] [address] 09/02/2025 10:00 AM EST Office Visit [facility] UROLOGY 1760 [facility] 502 [place] [address] Sanam Saunders, WELDER EXPLOSION 1760 [facility] [address] [place] [address] 09/24/2025 9:15 AM EST Office Visit [facility] RHEUMATOLOGY [address] [address] John Sheppard APRN [address] [phone] 02/03/2026 10:45 AM EDT Office Visit [facility] RHEUMATOLOGY [address] [address] Patrice Santana DO [address] [address] documented as of this encounter Goals Goal [...] Ebony Newsome APRN IMG DIAGNOSTIC IMAGING ORDER AJG Final Result documented in this encounter Visit [...] documented as of this encounter Care Teams Yarder Boss Relationship Specialty Start Date End Date Lizbeth Ibarra MD PCP - General 06/18/15 07/10/17 documented as of this encounter
--- OUTSIDE RECORDS SUMMARY | 2022-02-25 11:00 | XMS_ITS | Encounter Summary ---
Author Organization [facility] Address [address] [place] [address] Care Team Providers Care Pharmaceutical Sales Name Role Phone Johanna Jeffrey MD Primary Care Provider +1- [phone] Reason for Visit * Monitoring (Routine) - Closed Specialty Diagnoses / Procedures Referred By Tia t Referred To Contact Diagnoses Palpitations Dizziness Procedures Mobile Cardiac Outpatient Telemetry Cardiac Event Monitor Tiffany Maier MD [address] [place] [address] Phone: tel: fax: [facility] [address] [facility] [address] [facility] 100 [place] [address] Phone: tel: Referral ID Status Reason Start Date Expiration Date Visits Re quested Visits Authorized [id number] Closed 02/25/2022 02/25/2023 1 1 Encounter Details Date Type Department Care Team (Late st Contact Info) Description 02/25/2022 11:00 AM EDT Hospital Encounter [facility] CARDIOLOGY [address] [place] [address] Palpitations; Dizziness Social History Tobacco Use Types Packs/Day Years Used Date Smoking Tobacco: Never Passive Smoke Exposure: Past Smokeless Tobacco: Never Comments: smokes, for 45 years Alcohol Use Standard Drinks/Week Comments Never 0 (1 standard drink = 0.6 oz pur e alcohol) [facility] Utilities Answer Date Recorded In the past 12 months has th e electric, [employer], oil, or water [employer] threatened to shut off services in your [...] or training? Not on file Preferred Language Dutch 01/28/2025 PHQ-2 Answer Date Recorded Retired PHQ-9: [...] 3:42 PM EDT Susan Burk, SRAVANI * [place] Suicide Severity Rating Scale (Screener/Recent Self-Report) Question [...] Info) Description 08/13/2025 10:00 AM EDT Infusion [facility] OUTPATIENT ONCOLOGY [place] [address] [place] [address] 09/01/2025 11:00 AM EST Office Visit [facility] PULMONARY & CRITICAL CARE MEDICINE 3000 [facility] [address] [place] [address] 09/01/2025 11:30 AM EST Office Visit [facility] PULMONARY & CRITICAL CARE MEDICINE 3000 [facility] [address] [place] [address] Maxine Gibson, ORTHOPEDICS TEACHER [address] [place] [address] 09/02/2025 10:00 AM EST Office Visit [facility] UROLOGY 1760 [facility] 502 [place] [address] Sanam Saunders, ORTHOPEDICS TEACHER 1760 [facility] [address] [place], [place] [address] 09/24/2025 9:15 AM EST Office Visit [facility] RHEUMATOLOGY [address] [phone] John Sheppard APRN [address] [address] 02/03/2026 10:45 AM EDT Office Visit [facility] RHEUMATOLOGY [address] [phone] Patrice Satnana, [address] [id number] documented as of this encounter Goals Goal [...] 21 hours and 51 minutes. Total beats: [id number]. Average HR: 83. Min HR: 48. Max [...] documented as of this encounter Care Teams Pharmaceutical Sales Relationship Specialty Start Date End Date Johanna Jeffrey MD Mike [address] [address] PCP - General Internal Medicine 10/20/21 08/20/22 documented as of this encounter
--- OUTSIDE RECORDS SUMMARY | 2024-04-23 19:45 | XMS_ITS | Encounter Summary ---
Author Organization [facility] Address [address] [place] [address] Care Team Providers Care Kilnman Name Role Phone Rafael Pal MD, Huyen Primary Care Provider [phone] Reason for Referral * Hospital - Outpatient [...] or More Parameters Ijeoma Payne APRN 1720 [place] [address] Phone: tel: fax: [facility]EP [facility] [address] [address] Phone: tel: fax: Referral ID Status Reason Start Date Expiration Date Visits Re quested Visits Authorized [id number] Closed 12/19/2023 12/18/2024 1 1 Reason for [...] or More Parameters Ijeoma Payne, PARVIZ 1720 [facility] [address] [address] Phone: tel: fax: [facility] [address] [address] Phone: tel: fax: Referral ID Status Reason Start Date Expiration Date Visits Re quested Visits Authorized [id number] Closed 12/19/2023 12/18/2024 1 1 Encounter Details Date Type Department Care Team (Late st Contact Info) Description 04/23/2024 7:45 PM EDT Hospital Encounter [facility] [address] [place] [address] Ijeoma Payne, PARVIZ [address] [place] [address] Dementia, unspecified dementia severity, unspecified dementia type, [...] drink = 0.6 oz pur e alcohol) [facility] Utilities Answer Date Recorded In the past 12 months has [employer], gas, oil, or water [employer] threatened to shut off services in your [...] or training? Not on file Preferred Language Chinese 01/28/2025 PHQ-2 Answer Date Recorded Retired PHQ-9: [...] 3:42 PM EDT Susan Burk RN * [place] Suicide Severity Rating Scale (Screener/Recent Self-Report) Question [...] Info) Description 08/13/2025 10:00 AM EDT Infusion [facility] OUTPATIENT ONCOLOGY [place] [address] [place] [address] 09/01/2025 11:00 AM EST Office Visit [facility] PULMONARY & CRITICAL CARE MEDICINE 3000 [facility] [address] [place] [address] 09/01/2025 11:30 AM EST Office Visit [facility] PULMONARY & CRITICAL CARE MEDICINE 3000 [facility] [address] [place] [address] Maxine Gibson, HVAC TECHNICIAN RESIDENTIAL [address] [place], [place] [address] 09/02/2025 10:00 AM EST Office Visit [facility] UROLOGY 1760 [facility] [address] [place] [address] Sanam Saunders, HVAC TECHNICIAN RESIDENTIAL 1760 [facility] [address] [place], [place] [address] 09/24/2025 9:15 AM EST Office Visit [facility] RHEUMATOLOGY [address] [address] John Sheppard HVAC TECHNICIAN RESIDENTIAL [address] [phone] 02/03/2026 10:45 AM EDT Office Visit [facility] RHEUMATOLOGY [address] [address] Partice Santana, [address] [phone] documented as of this encounter Goals Goal [...] * Telemetry Scan (07/18/2025 7:24 PM EDT) [facility] ECG ORDERABLES Final Result * NPSG (04/24/2024 [...] agree with the interpretation. Braden To MD, [facility] Pulmonary Critical care and Sleep medicine [...] respirations: None. 8. Bruxism: None. Ijeoma Payne [facility] SLEEP CENTER ORDERABLES Fin al Result SLEEP [...] documented as of this encounter Care Teams Kilnman Relationship Specialty Start Date End Date Huyen Hall MD 2040 [facility] 100 [place] [address] PCP - General Family Medicine 08/21/22 07/25/24 documented as of this encounter
--- OUTSIDE RECORDS SUMMARY | 2025-05-23 13:00 | XMS_ITS | Encounter Summary ---
[facility] [address] [place] [address] Care Team Providers Care Director Outpatient Services Name Role Phone Reza Panchal MD Primary Care Provider +1- [phone] Reason for Visit * Episode Based Medications (Routine) - Closed Specialty Diagnoses / Procedures Referred By Tia holman Referred To Contact Diagnoses Rheumatoid arthritis involving multiple sites with positive rheumatoid factor Procedures [place] GOLIMUMAB FOR IV USE 1MG Patrice Santana DO [address] [employer] [address] [place] [address] Phone: tel: fax: [facility] OUTPATIENT ONCOLOGY [address] [place] [address] Phone: tel: fax: Referral ID Status Reason Start Date Expiration Date Visits Re quested Visits Authorized [id number] Closed 05/06/2024 05/06/2025 1 1 Encounter Details Date Type Department Care Team (Latest Contact Info) Description 05/23/2025 1:00 PM EDT - 05/23/2025 11:59 PM EDT Hospital Encounter [facility] OUTPATIENT ONCOLOGY [address] [place] [address] Patrice Santana DO [address] [employer] [address] [place] [phone] Rheumatoid arthritis involving multiple sites with positive rheumatoid factor (Primary Dx) Discharge Disposition: Home or Self Care Social History Tobacco Use Types Packs/Day Years Used Date Smoking Tobacco: Never Passive Smoke Exposure: Past Smokeless Tobacco: Never Comments: smokes, for 45 years Alcohol Use Standard Drinks/Week Comments No 0 (1 standard drink = 0.6 oz pur e alcohol) [facility] Utilities Answer Date Recorded In the past 12 months has th e [employer], gas, oil, or water company threatened to [...] or training? Not on file Preferred Language Macanese 01/28/2025 PHQ-2 Answer Date Recorded Retired PHQ-9: [...] 1 NEEDLE THREE TIMES DAILY DIRECTED 08/01/2022 Cholecalciferol 25 MCG (1000 UT) tablet Take [...] check blood sugar daily. E11.319 50 each 05/13/2024 glucose monitor monitoring kitIndications:Type 2 diabetes [...] FOUR TIMES DAILY NEEDED FOR NERVES 05/11/2022 Lancets 30G miscIndications:Typ e 2 diabetes mellitus [...] minutes. 25 tablet 5 01/03/2024 nystatin (MYCOSTATIN) [id number] UNIT/GM powderIndications:Y east dermatitis,Perineal irritation in female [...] tablet Take 2 tablets by mouth Daily. alendronate (FOSAMAX) 70 MG tablet Take 1 tablet by mouth Every 7 (Seven) Days. 4 tablet 6 01/30/2025 06/05/20 25 Aspirin Low Dose 81 MG EC tablet TAKE 1 TABLET BY MOUTH DAILY 100 tablet 2 01/26/2024 06/05/20 25 cefdinir (OMNICEF) 300 MG capsule 04/28/2025 06/05/20 25 chlorthalidone (HYGROTON) 25 MG tablet 03/25/2025 07/21/20 25 Jardiance 10 MG tablet tabletIndications:T ype 2 diabetes mellitus with retinopathy, without long-term current use of insulin, macular edema presence unspecified, unspecified laterality, unspecified retinopathy severity TAKE 1 TABLET BY MOUTH DAILY 30 tablet 2 07/08/2024 07/21/20 25 meloxicam (MOBIC) 15 MG tablet Take 1 tablet by mouth Daily As Needed for Mild Pain. 30 tablet 5 01/30/2025 06/05/20 25 Ozempic, 0.25 or 0.5 MG/DOSE, 2 MG/3ML solution pen-injector ADMINISTER 0.25 MG UNDER THE SKIN ONCE WEEKLY 05/20/2025 06/05/20 25 Vonoprazan Fumarate (VOQUEZNA) 10 MG tablet Take 1 tablet by mouth Daily. 30 tablet 11 05/12/2025 07/21/20 25 documented as of this encounter Plan of Treatment Upcoming Encounters Date Type Department Care Team (Late st Contact Info) Description 08/13/2025 10:00 AM EDT Infusion [facility] OUTPATIENT ONCOLOGY [place] [address] [place] [phone] 09/01/2025 11:00 AM EST Office Visit [facility] PULMONARY & CRITICAL CARE MEDICINE 3000 [facility] [address] [place] [address] 09/01/2025 11:30 AM EST Office Visit [facility] PULMONARY & CRITICAL CARE MEDICINE 3000 [facility] [address] [place] [address] Maxine Gibson, TECH WRITER [address] [place], [place] [phone] 09/02/2025 10:00 AM EST Office Visit [facility] UROLOGY 1760 [facility] 502 [place], [place] [phone] Sanam Saunders, TECH WRITER 1760 [facility] [address] [place], [place] [phone] 09/24/2025 9:15 AM EST Office Visit [facility] RHEUMATOLOGY [address] [place] [phone] John Sheppard APRN [address] [facility] 100 [place], [place] [id number] 02/03/2026 10:45 AM EDT Office Visit [facility] RHEUMATOLOGY [address] [place] [address] Patrice Santana DO [address] [facility] [address] [place], [place] [phone] documented as of this encounter Goals Goal [...] as of this encounter Care Teams Director Outpatient Services Relationship Specialty Start Date End Date Reza Panchal MD [address] [place] [address] PCP - General Family Medicine 09/30/24 documented as of this encounter
--- OUTSIDE RECORDS SUMMARY | 2025-06-03 10:33 | XMS_ITS | Encounter Summary ---
[facility] Address [address] [place] [address] Care Team Providers Care Draw Tender Name Role Phone Reza Panchal MD Primary Care Provider +1- [phone] Reason for Referral * Diagnostic Imaging (Routine) - Closed Specialty Diagnoses / Procedures Referred By Contac t Referred To Contact Radiology Diagnoses Seropositive rheumatoid arthritis High risk medication use Primary osteoarthritis involving multiple joints Age-related osteoporosis without current pathological fracture NSAID long-term use Procedures DEXA Bone Density Axial Patrice Santana DO Phone: tel: fax: [facility] DEXA [address] [address] Phone: tel: Referral ID Status Reason Start Date Expiration Date Visits Re quested Visits Authorized [id number] Closed 01/30/2025 05/01/2026 1 1 Reason for Visit * Diagnostic Imaging (Routine) - Closed Specialty Diagnoses / Procedures Referred By Contac manda Referred To Contact Radiology Diagnoses Seropositive rheumatoid arthritis High risk medication use Primary osteoarthritis involving multiple joints Age-related osteoporosis without current pathological fracture NSAID long-term use Procedures DEXA Bone Density Axial Patrice Santana DO Phone: tel: fax: [facility] RO CROSSING DEXA [address] [facility] [address] [place] [address] Phone: tel: Referral ID Status Reason Start Date Expiration Date Visits Re quested Visits Authorized [id number] Closed 01/30/2025 05/01/2026 1 1 Encounter Details Date Type Department Care Team (Latest Contact Info) Description 06/03/2025 10:33 AM EDT - 06/03/2025 11:59 PM EDT Hospital Encounter [facility] DEXA YOEL [address] [place] [phone] Patrice Santana DO [address] [facility] 100 [place] [id number] Seropositive rheumatoid arthritis; High risk medication use; [...] Recorded In the past 12 months has [employer], gas, oil, or water [employer] threatened to shut off services in your [...] minutes. 25 tablet 5 01/03/2024 nystatin (MYCOSTATIN) [id number] UNIT/GM powderIndications:Y east dermatitis,Perineal irritation in female [...] Info) Description 08/13/2025 10:00 AM EDT Infusion [facility] OUTPATIENT ONCOLOGY [place] 330 [facility] 110 [place] [address] 09/01/2025 11:00 AM EST Office Visit [facility] PULMONARY & CRITICAL CARE MEDICINE 3000 [facility] 240 [place] [address] 09/01/2025 11:30 AM EST Office Visit [facility] PULMONARY & CRITICAL CARE MEDICINE 3000 [facility] 240 [place] [address] Maxine Gibson, MAIL MESSENGER CONTRACTOR 2400 [place] [address] 09/02/2025 10:00 AM EST Office Visit [facility] UROLOGY 1760 [facility] 502 [place] [address] Sanam Saunders, MAIL MESSENGER CONTRACTOR 1760 [facility] [address] [place] [address] 09/24/2025 9:15 AM EST Office Visit [facility] RHEUMATOLOGY 330 [facility] 100 [place] [address] John Sheppard, MAIL MESSENGER CONTRACTOR 330 [facility] 100 [place] [address] 02/03/2026 10:45 AM EDT Office Visit [facility] RHEUMATOLOGY 330 [facility] 100 [place] [address] Patrice Santana DO [address] [facility] 100 [place] [address] documented as of this encounter Goals Goal [...] fall-prevention measurements. The National Osteoporosis Foundation recommends (http://www.nof.org/hcp/practice/cpiunfqi-syg-sxdafzrw-guidelines/clinicians-christine de) that FDA-approved medical therapies be considered [...] the left hip with 95% confidence is 0.862628 gm/cm2 at the hip and 0.063513 g/cm2 at the lumbar spine. Report dictated by: Kiah Weston PA-c I have personally reviewed this case and agree with the findings above: Electronically Signed: Julito Kirkland MD 06/03/2025 4:39 PM EDT Workstation ID: [id number] Narrative 06/03/2025 4:39 PM EDT DUAL-ENERGY X-RAY [...] normal patients. According to criteria established by the[facility], patients with T-scores between [...] exercises and fall-prevention measurements. The NationalOsteoporosis Foundation recommends(http://www.nof.org/hcp/practice/hbcraysc-rig-qxxpvvgt-guidelines/clin ician s-guide) that FDA-approved medical therapies be [...] at the left hipwith 95% confidence is 0.999229 gm/cm2 at the hip and 0.097951 g/cm2 atthe lumbar spine. Report dictated by: Kiah Enrico, PA-c I have personally reviewed this case and agree with the findings above: Electronically Signed: Julito Kirkland MD 06/03/2025 4:39 PM EDT Workstation ID: [id number] Patrice Santana DO IMG DXA ORDERABLES Fin [...] documented as of this encounter Care Teams Draw Tender Relationship Specialty Start Date End Date Reza Panchal MD [address] [place] [address] PCP - General Family Medicine 09/30/24 documented as of this encounter
--- OUTSIDE RECORDS SUMMARY | 2025-06-05 10:45 | XMS_ITS | Encounter Summary ---
Author Organization [facility] Address [address] [place] [address] Care Team Providers Care Head Cleaning Porter Name Role Phone Reza Panchal MD Primary Care Provider [phone]- [phone] Reason for Visit * Reason Comments Seropositive rheumatoid arthritis Encounter Details Date Type Department Care Team (Latest Contact Info) Description 06/05/2025 10:45 AM EDT Office Visit [facility] RHEUMATOLOGY [address] [address] John Sheppard APRN [address] [id number] Seropositive rheumatoid arthritis (Primary Dx); High risk medication use; Primary osteoarthritis involving multiple joints; Age-related osteoporosis without current pathological fracture; NSAID long-term use; Fatigue, unspecified type Social History Tobacco Use Types Packs/Day Years Used Date Smoking Tobacco: Never Passive Smoke Exposure: Past Smokeless Tobacco: Never Comments: smokes, for 45 years Alcohol Use Standard Drinks/Week Comments No 0 (1 standard drink = 0.6 oz pur e alcohol) [facility] Utilities Answer Date Recorded In the past 12 months has e [employer], gas, oil, or water company threatened to [...] or training? Not on file Preferred Language Faroese 01/28/2025 PHQ-2 Answer Date Recorded Retired PHQ-9: [...] Sign Reading Time Taken Comments Blood Pressure 130/78 06/05/2025 10:44 AM EDT Pulse 81 06/05/2025 10:44 AM EDT Temperature 36.3 C (97.4 F) 06/05/2025 10:44 AM EDT Respiratory Rate - - Oxygen Saturation - - Inhaled Oxygen Concentration - - Weight 89.9 kg (198 lb 1.6 oz) 06/05/2025 10:44 AM EDT Height 152.4 cm (5') 06/05/2025 10:44 AM EDT Body Mass Index 38.69 06/05/2025 10:44 AM EDT documented in this encounter Progress Notes * John Sheppard APRN - 06/05/2025 10:45 AM EDTAssociated Problem(s): Seropositive rheumatoid arthritis Diagn[place] [address] Almanzar. + CCP in 2006. Psoriasis developed in 2006. Medication/treatment/interventions tried include: Tylenol, duloxetine, gabapentin, Tramadol, Oxycodone/APAP, Back surgery, Ambien, meloxicam, hydroxychloroquine, MTX/folic acid, Arava, Enbrel, Humira, Actemra, prednisone, diclofenac gel, knee replacement surgery, Physical therapy, she has seen ortho paedic surgeons, sulfasalazine, salsalate, meloxicam, IV Simponi Continue IV Simponi. She would like to be infused here. A message was sent to IV clinical staff to see if site can be changed. Prognosis is guarded. She has tried/failed multiple therapeutic options and she has chronic pain Follow up in 3-4 months We gave her a new standing lab order to have done before next visit. Reviewed labs from [facility]. Labs also requested. * John Sheppard APRN - 06/05/2025 10:45 AM EDTAssociated Problem(s): High risk medication use IV Simponi every 8 weeks for RA Qtb negative 01/14/25 1. Hold if the patient develops infection. 2. Avoid live vaccines while on this medication. 3. No recent serious infections 4. No infusion reactions 5. Also hold this medication perioperatively if the patient is going to have a surgical procedure * John Sheppard APRN - 06/05/2025 10:45 AM EDTAssociated Problem(s): Osteoarthritis Tylenol PRN is ok as directed She has tried oral and topical NSAIDS PRN She has taken gabapentin for neuropathic pain She has taken Tramadol PRN She has taken Oxycodone PRN She has done physical therapy She has seen orthopaedic surgeons She had knee replacement surgery She has had back surgery * John Sheppard APRN - 06/05/2025 10:45 AM EDTAssociated Problem(s): Age-related osteoporosis without current pathological fracture 1. Calcium and vitamin D supplements should be taken unless otherwise contraindicated. 2. DXA scan should be monitored approximately every 2 years. 3. She takes Alendronate. Refill today 4. She had a dexa 05/2025. Osteoporosis right femoral neck. 5. Patient states she believes she has been on alendronate since 2008 or 2009. Per Adeola we have first noted in 05/29/2019 that she had osteoporosis that PCP was managing with alendronate. In 2021 wenoted that we are restarting alendronate because we believe she was noncompliant. This was noted after the patient left the visit today. We will send a PA for requested notify patient to stop alendronate. * John Sheppard APRN - 06/05/2025 10:45 AM EDTAssociated Problem(s): NSAID long-term use Meloxicam 15 mg PO once/day PRN for joint pain If she develops another bleeding ulcer she is to stop meloxicam. She has not stopped since hospitalization. Do not take over-the counter anti-inflammatory medicines, such as ibuprofen or naproxen (Advil, Motrin, Aleve and others), as they may cause problems when combined with your prescription medications.In general, low dose daily aspirin for the treatment or prevention of heart disease or stroke is safe to take. Acetaminophen (Tylenol) is generally safe to take as directed for headaches, cramps or other aches and pains or fever reduction. * John Sheppard APRN - 06/05/2025 10:45 AM EDT Office Follow Up Date: 06/05/2025 Patient Name: Madison Castellanos Date of : 1955 Referring Physician: No ref. provider found Chief Complaint Patient presents with Seropositive rheumatoid arthritis History of Present Illness: Madison Castellanos is a 70 y.o. female who is here today for follow up.Most recently we have had her on IV Simponi. No infusion reactions. We also prescribe her alendronate and Voltaren gel. She needs refills. Today she asks us to refill her meloxicam as well. She has chronic and constant pain. Today she reports feeling the same. She rates her pain 6/10, global 6/10 and has 3 hours of morning stiffness. She would like refills of meloxicam and alendronate today. She was hospitalized recently with a bleeding ulcer related to new use of Ozempic. She had the ulcer repaired. Ozempic was stopped but she was allowed to continue Meloxicam. She also had pneumonia. Subjective Review of Systems Constitutional: Positive for chills. HENT: Positive for hearing loss and postnasal drip. Dry mouth Eyes: Positive for itching. Dry eyes Gastrointestinal: Positive for abdominal pain, blood in stool, nausea, vomiting and GERD. Musculoskeletal: Positive for arthralgias, back pain, joint swelling and myalgias. Skin: Positive for dry skin and bruise. Hair loss Neurological: Positive for memory problem and confusion. All other systems reviewed and are negative. Current Outpatient Medications: acetaminophen (TYLENOL) 500 MG [...] (Seven) Days., Disp: 4 tablet, Rfl: 6 atorvastatin (LIPITOR) 20 MG tablet, Take 1 tablet by mouth Daily., Disp: 90 tablet, Rfl: 0 BD Pen Needle Reyna 2nd Gen 32G X 4 MM [facility] [place], USE 1 NEEDLE THREE TIMES [...] times daily, Disp: 300 g, Rfl: 4 estradiol (ESTRACE) 0.1 MG/GM vaginal cream, DO NOT USE SYRINGE. PUT A PEA SIZE ON INDEX FINGER. APPLY TO VAGINAL AREA 2-3X WEEKLY, Disp: 42.5 g, Rfl: 12 fluconazole (DIFLUCAN) 150 MG tablet, TAKE 1 TABLET BY MOUTH 1 TIME FOR 1 DOSE. MAY REPEAT IN 3 DAYS IF SYMPTOMATIC, Disp: , Rfl: fluticasone (FLONASE) 50 MCG/ACT nasal spray, Administer [...] DAILY NEEDED FOR NERVES, Disp: , Rfl: Lancets 30G misc, Use to check blood [...] mouth Daily., Disp: 90 tablet, Rfl: 3 nitrofurantoin, macrocrystal-monohydrate, (MACROBID) 100 MG capsule, TAKE 1 CAPSULE BY MOUTH TWO TIMES DAILY X 7 DAYS ONLY. AFTER TAKE 1 CAPSULE NIGHTLY FOR SUPPRESSIVE THERAPY E'COLI RECURRENT UTIs,Disp: 30 capsule, Rfl: 3 nitroglycerin (NITROSTAT) 0.4 MG SL tablet, Place 1 tablet under the tongue Every 5 (Five) Minutes As Needed for Chest Pain. Take no more than 3 doses in 15 minutes., Disp: 25 tablet, Rfl: 5 nystatin (MYCOSTATIN) [id number] UNIT/GM powder, Apply topically to the appropriate area as directed 3 (Three) Times a Day., Disp: 60 g, Rfl: 3 omeprazole (priLOSEC) 40 MG capsule, Take 1 capsule by mouth Daily., Disp: , Rfl: ondansetron (Zofran) 4 MG tablet, Take 1 tablet by mouth Every 8 (Eight) Hours As Needed for Nauseaor Vomiting., Disp: 30 tablet, Rfl: 0 potassium chloride (KLOR-CON M10) 10 MEQ CR [...] tablets by mouth Daily., Disp: , Rfl: amLODIPine (NORVASC) 2.5 MG tablet, Take 1 tablet by mouth Daily. (Patient taking differently: Take1 tablet by mouth As Needed.), Disp: 30 tablet, Rfl: 2 Jardiance 10 MG tablet tablet, TAKE 1 TABLET BY MOUTH DAILY, Disp: 30 tablet, Rfl: 2 Vonoprazan Fumarate (VOQUEZNA) 10 MG tablet, Take 1 tablet by mouth Daily. (Patient not taking: Reported on 06/05/2025), Disp: 30 tablet, Rfl: 11 Allergies Allergen Reactions Abilify [Aripiprazole] Other (See Comments) and Dizziness Sleepy and staggering. Oxycodone GI Intolerance Codeine Nausea And Vomiting Derivatives Donepezil Other (See Comments) Bad dreams Hydrocodone-Acetaminophen GI Intolerance Imdur [Isosorbide Dinitrate] Nausea And Vomiting headaches Metformin Other (See Comments) Pt refused after reading about carcinogen contamination I have reviewed and updated the patient's chief complaint, history of present illness, review of systems, past medical history, surgical history, family history, social history, medications and allergy list as appropriate. Objective Vitals: 06/05/25 1044 BP: 130/78 BP Location: Left arm Patient Position: Sitting Cuff Size: Adult Pulse: 81 Temp: 97.4 ??F (36.3 ??C) Weight: 89.9 kg (198 lb 1.6 oz) Height: 152.4 cm (60 ) PainSc: 6 PainLoc: Generalized Body mass index is 38.69 kg/m??. Physical Exam General: Well appearing 69 year old female. Not in distress. She is ambulating Rolator. SKIN: No rashes. No alopecia. No subcutaneous nodules. No digital pits or ulcers. No sclerodactyly. HEENT: NCAT. Conjunctiva clear, no photophobia. No oral or nasal ulcers. Hearing intact. Pulmonary: Clear to auscultation bilaterally. No wheezing, rales, or rhonchi. CV: Regular rate and rhythm. No murmurs, rubs, or gallops. Psych: Normal mood and affect. Alert and oriented x 3. Extremities: No cyanosis. + Trace edema. Musculoskeletal: No joint swelling or tenderness to palpation. No warmth or erythema. Normal range of motion of the wrists, ankles, elbows, and knees. Lymph: No palpable cervical adenopathy Procedures Assessment / Plan Assessment & Plan Seropositive rheumatoid arthritis Diagnosed [place] [address] Almanzar. + CCP in 2006. Psoriasis developed in 2006. Medication/treatment/interventions tried include: Tylenol, duloxetine, gabapentin, Tramadol, Oxycodone/APAP, Back surgery, Ambien, meloxicam, hydroxychloroquine, MTX/folic acid, Arava, Enbrel, Humira, Actemra, prednisone, diclofenac gel, knee replacement surgery, Physical therapy, she has seen ortho paedic surgeons, sulfasalazine, salsalate, meloxicam, IV Simponi Continue IV Simponi. She would like to be infused here. A message was sent to IV clinical staff to see if site can be changed. Prognosis is guarded. She has tried/failed multiple therapeutic options and she has chronic pain Follow up in 3-4 months We gave her a new standing lab order to have done before next visit. Reviewed labs from [facility]. Labs also requested. High risk medication use IV Simponi every 8 weeks for RA Qtb negative 01/14/25 1. Hold if the patient develops infection. 2. Avoid live vaccines while on this medication. 3. No recent serious infections 4. No infusion reactions 5. Also hold this medication perioperatively if the patient is going to have a surgical procedure Primary osteoarthritis involving multiple joints Tylenol PRN is ok as directed She has tried oral and topical NSAIDS PRN She has taken gabapentin for neuropathic pain She has taken Tramadol PRN She has taken Oxycodone PRN She has done physical therapy She has seen orthopaedic surgeons She had knee replacement surgery She has had back surgery Age-related osteoporosis without current pathological fracture 1. Calcium and vitamin D supplements should be taken unless otherwise contraindicated. 2. DXA scan should be monitored approximately every 2 years. 3. She takes Alendronate. Refill today 4. She had a dexa 05/2025. Osteoporosis right femoral neck. 5. Patient states she believes she has been on alendronate since 2008 or 2009. Per Adeola we have first noted in 05/29/2019 that she had osteoporosis that PCP was managing with alendronate. In 2021 wenoted that we are restarting alendronate because we believe she was noncompliant. This was noted after the patient left the visit today. We will send a PA for requested notify patient to stop alendronate. NSAID long-term use Meloxicam 15 mg PO once/day PRN for joint pain If she develops another bleeding ulcer she is to stop meloxicam. She has not stopped since hospitalization. Do not take over-the counter anti-inflammatory medicines, such as ibuprofen or naproxen (Advil, Motrin, Aleve and others), as they may cause problems when combined with your prescription medications.In general, low dose daily aspirin for the treatment or prevention of heart disease or stroke is safe to take. Acetaminophen (Tylenol) is generally safe to take as directed for headaches, cramps or other aches and pains or fever reduction. Fatigue, unspecified type Update hepatitis panel Orders Placed This Encounter Procedures Comprehensive Metabolic Panel C-reactive Protein Sedimentation Rate Hepatitis Panel, Acute CBC & Differential Discussed plan of care in detail with the patient today. Patient verbalized understanding and agrees. I confirm accuracy of unchanged data/findings which have been carried forward from previous visit. I have updated appropriately those that have changed. Follow Up: Return in about 4 months (around 10/05/2025) for Dr. Santana, MICH Sheppard APRN. John Sheppard APRN [facility] [place] documented in this encounter Plan of Treatment Upcoming Encounters Date Type Department Care Team (Late st Contact Info) Description 08/13/2025 10:00 AM EDT Infusion [facility] OUTPATIENT ONCOLOGY [place] [address] [place] [address] 09/01/2025 11:00 AM EST Office Visit [facility] PULMONARY & CRITICAL CARE MEDICINE [address] [place] [address] [address] [place] [address] 09/01/2025 11:30 AM EST Office Visit [facility] PULMONARY [facility] CRITICAL CARE MEDICINE [address] [facility] [address] [place] [address] Maxine Gibson APRN [address] [place] [address] 09/02/2025 10:00 AM EST Office Visit [facility] UROLOGY [address] [facility] [address] [place] [address] Sanam Saunders APRN [address] [facility] [address] [place], [place] [id number] 09/24/2025 9:15 AM EST Office Visit [facility] RHEUMATOLOGY [address] [address] John Sheppard APRN [address] [id number] 02/03/2026 10:45 AM EDT Office Visit [facility] R[facility]UMATOLOG[facility] [address] [place] [address] [address] Patrice Santana DO [address] [address] documented as of this encounter [...] documented as of this encounter Results * Hepatitis Panel, Acute (07/08/2025 9:03 AM EDT) Hepatitis B Surface Ag Non-Reacti ve Non-Reacti ve 07/08/2025 3:12 PM EDT [facility] Hep A IgM Non-Reacti ve Non-Reacti ve 07/08/2025 3:12 PM EDT [facility] Hep B C IgM Non-Reacti ve Non-Reacti ve 07/08/2025 3:12 PM EDT [facility] Hepatitis C Ab Non-Reacti ve Non-Reacti ve 07/08/2025 3:12 PM EDT [facility] Blood Venipuncture / Unknown 07/08/2025 9:03 AM EDT 07/08/2025 9:03 AM EDT Narrative [facility] - 07/08/2025 3:12 PM EDT Results may be falsely decreased if patient taking Biotin. John Sheppard APRN LAB BLOOD ORDERABLES F inal Result Performing Organization Address [facility]/ZIP Co de Phone Number [facility]
[address] [place] [address], [place] [phone] * Sedimentation Rate (07/08/2025 9:03 AM EDT) Sed Rate 28 0 - 30 mm/hr 07/08/2025 2:36 PM EDT [facility] Blood Venipuncture / Unknown 07/08/2025 9:03 AM EDT 07/08/2025 9:03 AM EDT John Sheppard [employer] LAB BLOOD ORDERABLES F inal Result [facility]
[address] [place] [address], * C-reactive Protein (07/08/2025 9:03 AM EDT) [facility] C-Reactive Protein 0.30 0.00 - 0.50 mg/dL 07/08/2025 2:56 PM EDT [facility] Blood Venipuncture / Unknown 07/08/2025 9:03 AM EDT 07/08/2025 9:03 AM EDT John Sheppard APRN LAB BLOOD ORDERABLES F inal Result [facility]
[address] [place] [address], * (ABNORMAL) Comprehensive Metabolic Panel (07/08/2025 9:03 AM EDT) [facility] Glucose 194(H) 65 - 99 mg/dL 07/08/2025 2:56 PM EDT [facility] BUN 12.0 8.0 - 23.0 mg/dL 07/08/2025 2:56 PM EDT [facility] Creatinine 0.74 0.57 - 1.00 mg/dL 07/08/2025 2:56 PM EDT [facility] Sodium 138 136 - 145 mmol/L 07/08/2025 2:56 PM EDT [facility] Potassium 4.0 3.5 - 5.2 mmol/L 07/08/2025 2:56 PM EDT [facility] Chloride 100 98 - 107 mmol/L 07/08/2025 2:56 PM EDT [facility] CO2 22.7 22.0 - 29.0 mmol/L 07/08/2025 2:56 PM EDT [facility] Calcium 9.1 8.6 - 10.5 mg/dL 07/08/2025 2:56 PM EDT [facility] Total Protein 7.4 6.0 - 8.5 g/dL 07/08/2025 2:56 PM T [facility] Albumin 3.9 3.5 - 5.2 g/dL 07/08/2025 2:56 PM T [facility] ALT (SGPT) 18 1 - 33 U/L 07/08/2025 2:56 PM T [facility] AST (SGOT) 17 1 - 32 U/L 07/08/2025 2:56 PM T [facility] Alkaline Phosphatase 101 39 - 117 U/L 07/08/2025 2:56 PM [facility] Total Bilirubin 0.2 0.0 - 1.2 mg/dL 07/08/2025 2:56 PM [facility] Globulin 3.5 gm/dL 07/08/2025 2:56 PM [facility] A/G Ratio 1.1 g/dL 07/08/2025 2:56 PM [facility] BUN/Creatinine Ratio 16.2 7.0 - 25.0 07/08/2025 2:56 PM [facility] Anion Gap 15.3(H) 5.0 - 15.0 mmol/L 07/08/2025 2:56 PM [facility] eGFR 88.3 >60.0 mL/min/1.7 3 07/08/2025 2:56 PM [facility] Blood Venipuncture / Unknown 07/08/2025 9:03 AM EDT 07/08/2025 9:03 AM EDT [facility] - 07/08/2025 2:56 PM EDT GFR Categories in Chronic Kidney [...] does not include race as a factor SamuelAlba Silver [employer] LAB BLOOD ORDERABLES F inal Result [facility]
[address] [place] [address], documented in this encounter Visit Diagnoses Diagnosis Seropositive rheumatoid arthritis- Primary High risk medication [...] as of this encounter Care Teams Head Cleaning Porter Relationship Specialty Start Date End Date Reza Panchal MD [address] [place] [address] PCP - General Family Medicine 09/30/24 documented as of this encounter
--- OUTSIDE RECORDS SUMMARY | 2025-06-13 10:00 | XMS_ITS | Encounter Summary ---
Author Organization [facility] Address [address] [place] [address] Care Team Providers Care Field Ring Assembler Name Role Phone Reza Panchal MD Primary Care Provider +1- [phone] Reason for Visit * Reason Comments Infection due to 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 toxin-pr oducing Escherichia FOLLOW UP UTIs/LUTS/OAB Encounter Details Date Type Department Care Team (Late st Contact Info) Description 06/13/2025 10:00 AM EDT Office Visit [facility] UROLOGY [address] [place] [address] Sanam Saunders APRN 1760 [facility] [address] [place] [address] Infection due to 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 toxin-producing Escherichia coli (E.coli) (Primary Dx); Lower urinary tract symptoms (LUTS) Social History Tobacco Use Types Packs/Day Years Used Date Smoking Tobacco: Never Passive Smoke Exposure: Past Smokeless Tobacco: Never Comments: smokes, for 45 years Alcohol Use Standard Drinks/Week Comments No 0 (1 standard drink = 0.6 oz pur e alcohol) [facility] Utilities Answer Date Recorded In the past 12 months has [employer] electric, gas, oil, or water company threatened [...] through Care Everywhere. * Urinary Frequency Adult (Peruvian) * Urinary Incontinence: What to Know (Peruvian) * Overactive Bladder in Adults: What to Know (Peruvian) documented in this encounter Progress Notes * Sanam Saunders APRN - 06/13/2025 10:00 AM EDT Images from the original note were not included. Chief Complaint Infection due to 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 toxin-producing Escherichia (FOLLOW UP UTIs/LUTS/OAB) Subjective [place] Castellanos presents to [facility] for UTI/OAB/LUTS History of Present [...] month since her last consultation with the mortician supplies sales representative for her neuromodulation device. She has [...] Clarity, UA 06/13/2025 Clear Clear Final Specific [place] 06/13/2025 1.010 1.005 - 1.030 Final pH, [...] 05/14/2025 Slightly Cloudy (A) Clear Final Specific [place] 05/14/2025 1.015 1.005 - 1.030 Final pH, [...] is advised to contact the neuromodulation device mortician supplies sales representative for any device-related concerns. Follow-up She [...] of this note may be an electronic youth officer/translation of spoken language to printed text using the RoboEd Dictation System. Patient or patient mortician supplies sales representative verbalized consent for the use of Ambient Listening during the visit with Sanam Saunders APRN for chart documentation. 06/17/2025 22:57 EDT documented in this encounter Plan of Treatment Upcoming Encounters Date Type Department Care Team (Late st Contact Info) Description 08/13/2025 10:00 AM EDT Infusion [facility] OUTPATIENT ONCOLOGY [place] 330 [facility] [place] [address] [place] [address] 09/01/2025 11:00 AM EST Office Visit [facility] PULMONARY & CRITICAL CARE MEDICINE 3000 [facility] [address] [place] [address] 09/01/2025 11:30 AM EST Office Visit [facility] PULMONARY & CRITICAL CARE MEDICINE 3000 [facility] [address] [place] [address] Maxine Gibson, WAREHOUSE OPERATIONS MANAGER 2400 [place] [address] 09/02/2025 10:00 AM EST Office Visit [facility] UROLOGY 1760 [facility] 502 [place] [address] Sanam Saunders APRN 1760 [facility] [address] [place] [address] 09/24/2025 9:15 AM EST Office Visit [facility]UMATOLOGY 330 [facility] [address] [place] [address] John Sheppard APRN 330 [facility] [address] [place] [address] 02/03/2026 10:45 AM EDT Office Visit [facility] RHEUMATOLOGY [address] [place] [address] Patrice Santana, [address] [facility] 100 [place] [address] documented as of this encounter Goals Goal [...] Color Yellow Yellow, Straw, Dark Yellow, Ann [facility] Clarity, UA Clear Clear [facility] Specific [place] 1.010 1.005 - 1.030 [facility] pH, Urine 7.5 5.0 - 8.0 [facility] Leukocytes Negative Negative [facility] Nitrite, UA Negative Negative [facility] Protein, POC Negative Negative mg/dL [facility] Glucose, UA Negative Negative mg/dL [facility] Ketones, UA Negative Negative [facility] Urobilinogen, UA Normal Normal, 0.2 E.U./dL [facility] Bilirubin Negative Negative [facility] Blood, UA Negative Negative [facility] Lot Number [id number] [facility] Expiration Date 11/08/2026 [facility] Urine 06/13/2025 10:0 7 AM EDT Sanam Saunders APRN POINT OF CARE TEST ORDE VOLODYMYR Final Result [facility]
[address] [place] [address], * Urine Culture - Urine, Urine, Clean Catch (06/13/2025 9:55 AM EDT) Urine Culture No growth DICK 06/15/2025 4:46 AM EDT [facility] Urine Urine specimen obtained by clean catch procedure / Unknown Collection / Unknown 06/13/2025 9:55 AM EDT 06/13/2025 9:55 AM EDT Sanam Saunders WAREHOUSE OPERATIONS MANAGER MICROBIOLOGY - GENERAL ORDERABLES Final Result [facility]
[address] [place] [address], documented in this encounter Visit Diagnoses Diagnosis Infection due to 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 toxin-producing Escherichia coli (E.coli)- Primary Lower urinary tract symptoms (LUTS) documented in this encounter Additional Health Concerns Infection Onset Date Last Indicated Resolved Time Hepatitis A 04/12/2024 04/12/2024 Assessment Noted Time PHQ-2 Depression Total Score: 1 05/20/20 24 11:00 AM EDT documented as of this encounter Care Teams Field Ring Assembler Relationship Specialty Start Date End Date Reza Panchal MD [address] [place] [address] PCP - General Family Medicine 09/30/24 documented as of this encounter
--- OUTSIDE RECORDS SUMMARY | 2025-07-08 09:05 | XMS_ITS | Encounter Summary ---
[facility] Address [address] [place] [address] Care Team Providers Care Data Compiler Name Role Phone Reza Panchal MD Primary Care Provider +1- [phone] Encounter Details Date Type Department Care Team (Late st Contact Info) Description 07/08/2025 9:05 AM EDT Lab [facility] [place] [address] [place] [address] Seropositive rheumatoid arthritis; High risk [...] Recorded In the past 12 months has [employer], gas, oil, or water [employer] threatened to shut off services in your [...] Info) Description 08/13/2025 10:00 AM EDT Infusion [facility] OUTPATIENT ONCOLOGY [place] [address] [facility] [address] [place] [address] 09/01/2025 11:00 AM EST Office Visit [facility] PULMONARY & CRITICAL CARE MEDICINE [address] [facility] [address] [place] [address] 09/01/2025 11:30 AM EST Office Visit [facility] PULMONARY & CRITICAL CARE MEDICINE [address] [facility] [address] [place] [address] Maxine Gibson, VULCANIZED FIBER UNIT OPERATOR [address] [place] [address] 09/02/2025 10:00 AM EST Office Visit [facility] UROLOGY [address] [facility] [address] [place] [address] Sanam Saunders, VULCANIZED FIBER UNIT OPERATOR [address] [facility] [address] [place] [address] 09/24/2025 9:15 AM EST Office Visit [facility] RHEUMATOLOGY [address] [facility] [address] [place] [phone] John Sheppard APRN [address] [facility] [address] [place] [address] 02/03/2026 10:45 AM EDT Office Visit [facility] RHEUMATOLOGY [address] [place] [phone] Patrice Santana DO [address] [facility] [address] [place] [address] documented as of this encounter Goals Goal [...] CBC Auto Differential (07/08/2025 9:03 AM EDT) [facility] WBC 7.14 3.40 - 10.80 10*3/mm3 07/08/2025 2:34 PM EDT [facility] RBC 3.74(L) 3.77 - 5.28 10*6/mm3 07/08/2025 2:34 PM EDT [facility] Hemoglobin 10.7(L) 12.0 - 15.9 g/dL 07/08/2025 2:34 PM EDT [facility] Hematocrit 34.2 34.0 - 46.6 % 07/08/2025 2:34 PM EDT [facility] MCV 91.4 79.0 - 97.0 fL 07/08/2025 2:34 PM EDT [facility] MCH 28.6 26.6 - 33.0 pg 07/08/2025 2:34 PM EDT [facility] MCHC 31.3(L) 31.5 - 35.7 g/dL 07/08/2025 2:34 PM EDT [facility] RDW 12.7 12.3 - 15.4 % 07/08/2025 2:34 PM EDT [facility] RDW-SD 42.3 37.0 - 54.0 fl 07/08/2025 2:34 PM EDT [facility] MPV 10.2 6.0 - 12.0 fL 07/08/2025 2:34 PM EDT [facility] Platelets 255 140 - 450 10*3/mm3 07/08/2025 2:34 PM EDT [facility] Neutrophil % 49.5 42.7 - 76.0 % 07/08/2025 2:34 PM [facility] Lymphocyte % 31.8 19.6 - 45.3 % 07/08/2025 2:34 PM [facility] Monocyte % 14.6(H) 5.0 - 12.0 % 07/08/2025 2:34 PM [facility] Eosinophil % 3.1 0.3 - 6.2 % 07/08/2025 2:34 PM [facility] Basophil % 0.4 0.0 - 1.5 % 07/08/2025 2:34 PM [facility] Immature Grans % 0.6(H) 0.0 - 0.5 % 07/08/2025 2:34 PM [facility] Neutrophils, Absolute 3.54 1.70 - 7.00 10*3/mm3 07/08/2025 2:34 PM [facility] Lymphocytes, Absolute 2.27 0.70 - 3.10 10*3/mm3 07/08/2025 2:34 PM [facility] Monocytes, Absolute 1.04(H) 0.10 - 0.90 10*3/mm3 07/08/2025 2:34 PM [facility] Eosinophils, Absolute 0.22 0.00 - 0.40 10*3/mm3 07/08/2025 2:34 PM [facility] Basophils, Absolute 0.03 0.00 - 0.20 10*3/mm3 07/08/2025 2:34 PM [facility] Immature Grans, Absolute 0.04 0.00 - 0.05 10*3/mm3 07/08/2025 2:34 PM [facility] nRBC 0.0 0.0 - 0.2 /100 WBC 07/08/2025 2:34 PM [facility] Blood Venipuncture / Unknown 07/08/2025 9:03 AM EDT 07/08/2025 9:03 AM EDT John Sheppard VULCANIZED FIBER UNIT OPERATOR LAB BLOOD ORDERABLES F inal Result [facility]
[address] [place] [address], * Hepatitis Panel, Acute (07/08/2025 9:03 AM EDT) Hepatitis B Surface Ag Non-Reacti ve Non-Reacti ve 07/08/2025 3:12 PM EDT [facility] Hep A IgM Non-Reacti ve Non-Reacti ve 07/08/2025 3:12 PM EDT [facility] Hep B C IgM Non-Reacti ve Non-Reacti ve 07/08/2025 3:12 PM EDT [facility] Hepatitis C Ab Non-Reacti ve Non-Reacti ve 07/08/2025 3:12 PM EDT [facility] Blood Venipuncture / Unknown 07/08/2025 9:03 AM EDT 07/08/2025 9:03 AM EDT Narrative [facility] - 07/08/2025 3:12 PM EDT Results may be falsely decreased if patient taking Biotin. John Sheppard VULCANIZED FIBER UNIT OPERATOR LAB BLOOD ORDERABLES F inal Result [facility]
[address] [place] [address], * Sedimentation Rate (07/08/2025 9:03 AM EDT) Sed Rate 28 0 - 30 mm/hr 07/08/2025 2:36 PM EDT [facility] Blood Venipuncture / Unknown 07/08/2025 9:03 AM EDT 07/08/2025 9:03 AM EDT John Sheppard VULCANIZED FIBER UNIT OPERATOR LAB BLOOD ORDERABLES F inal Result Performing Organization Address City/[facility]/ZIP Co de Phone Number [facility]
[address] [place] [address], * C-reactive Protein (07/08/2025 9:03 AM EDT) C-Reactive Protein 0.30 0.00 - 0.50 mg/dL 07/08/2025 2:56 PM EDT [facility] Blood Venipuncture / Unknown 07/08/2025 9:03 AM EDT 07/08/2025 9:03 AM EDT John Sheppard VULCANIZED FIBER UNIT OPERATOR LAB BLOOD ORDERABLES F inal Result Performing Organization Address [facility] Co de Phone Number [facility]
[address] [place] [address], * (ABNORMAL) Comprehensive Metabolic Panel (07/08/2025 9:03 AM EDT) Glucose 194(H) 65 - 99 mg/dL 07/08/2025 2:56 PM EDT [facility] BUN 12.0 8.0 - 23.0 mg/dL 07/08/2025 2:56 PM EDT [facility] Creatinine 0.74 0.57 - 1.00 mg/dL 07/08/2025 2:56 PM EDT [facility] Sodium 138 136 - 145 mmol/L 07/08/2025 2:56 PM EDT [facility] Potassium 4.0 3.5 - 5.2 mmol/L 07/08/2025 2:56 PM EDT [facility] Chloride 100 98 - 107 mmol/L 07/08/2025 2:56 PM EDT [facility] CO2 22.7 22.0 - 29.0 mmol/L 07/08/2025 2:56 PM EDT [facility] Calcium 9.1 8.6 - 10.5 mg/dL 07/08/2025 2:56 PM EDT [facility] Total Protein 7.4 6.0 - 8.5 g/dL 07/08/2025 2:56 PM T [facility] Albumin 3.9 3.5 - 5.2 g/dL 07/08/2025 2:56 PM [facility] ALT (SGPT) 18 1 - 33 U/L 07/08/2025 2:56 PM T [facility] AST (SGOT) 17 1 - 32 U/L 07/08/2025 2:56 PM T [facility] Alkaline Phosphatase 101 39 - 117 U/L 07/08/2025 2:56 PM [facility] Total Bilirubin 0.2 0.0 - 1.2 mg/dL 07/08/2025 2:56 PM [facility] Globulin 3.5 gm/dL 07/08/2025 2:56 PM [facility] A/G Ratio 1.1 g/dL 07/08/2025 2:56 PM [facility] BUN/Creatinine Ratio 16.2 7.0 - 25.0 07/08/2025 2:56 PM [facility] Anion Gap 15.3(H) 5.0 - 15.0 mmol/L 07/08/2025 2:56 PM [facility] eGFR 88.3 >60.0 mL/min/1.7 3 07/08/2025 2:56 PM [facility] Blood Venipuncture / Unknown 07/08/2025 9:03 AM EDT 07/08/2025 9:03 AM T [facility] LABORATORY - 07/08/2025 2:56 PM EDT [...] not include race as a factor us Rosye Silver VULCANIZED FIBER UNIT OPERATOR LAB BLOOD ORDERABLES F inal Result [facility]
[address] [place] [address], documented in this encounter Visit Diagnoses Diagnosis Seropositive rheumatoid arthritis High risk medication use Fatigue, unspecified type documented in this encounter Additional Health Concerns Infection Onset Date Last Indicated Resolved Time Hepatitis A 04/12/2024 04/12/2024 Assessment Noted Time PHQ-2 Depression Total Score: 1 05/20/20 24 11:00 AM EDT documented as of this encounter Care Teams Data Compiler Relationship Specialty Start Date End Date Reza Panchal MD [address] [place] [address] PCP - General Family Medicine 09/30/24 documented as of this encounter
--- OUTSIDE RECORDS SUMMARY | 2025-07-09 09:00 | XMS_ITS | Encounter Summary ---
[facility] Address [address] [place] [address] Care Team Providers Care Bench Jeweler Name Role Phone Reza Panchal MD Primary Care Provider +1- [phone] Reason for Visit * Infusion (Routine) - Closed Specialty Diagnoses / Procedures Referred By Tia holman Referred To Contact Oncology Diagnoses Age-related osteoporosis without current pathological fracture Procedures [place] OFFICE/OUTPATIENT NEW MODERATE MDM 45 MINUTES John Sheppard APRN [address] [place] [address] Phone: tel: fax: [facility] OUTPATIENT ONCOLOGY [place] [address] [place] [address] Phone: tel: fax: Referral ID Status Reason Start Date Expiration Date V isits Requested Visits Authorized [id number] Closed Specialty Services Required 06/05/2025 09/04/2026 1 1 Encounter Details Date Type Department Care Team (Late st Contact Info) Description 07/09/2025 9:00 AM EDT Infusion [facility] OUTPATIENT ONCOLOGY [place] [address] [place] [address] Age-related osteoporosis without current pathological [...] Info) Description 08/13/2025 10:00 AM EDT Infusion [facility] OUTPATIENT ONCOLOGY [place] [address] [place] [address] 09/01/2025 11:00 AM EST Office Visit [facility] MEDICAL [facility] PULMONARY & CRITICAL CARE MEDICINE 3000 [facility] [address] [place] [address] 09/01/2025 11:30 AM EST Office Visit [facility] PULMONARY & CRITICAL CARE MEDICINE 3000 [facility] [address] [place] [address] Maxine Gibson, LEGISLATORS [address] [place] [address] 09/02/2025 10:00 AM EST Office Visit [facility] UROLOGY 1760 [facility] 502 [place], [place] [address] Sanam Saunders, LEGISLATORS 1760 [facility] [address] [place], [place] [address] 09/24/2025 9:15 AM EST Office Visit [facility] RHEUMATOLOGY [address] [phone] John Sheppard APRN [address] [id number] 02/03/2026 10:45 AM EDT Office Visit [facility] RHEUMATOLOGY [address] [phone] Patrice Santana, [address] [id number] documented as of this encounter Goals Goal [...] at 1030, For 1 dose, Group 2 ([place]) Hazardous Drug - Reproductive Risk Only - See Handling GuideIndications:Age-related osteoporosis without current pathological fracture New Bag 07/09/2025 10:03 AM EDT 5 mg 400 mL/hr documented in this encounter Additional Health Concerns Infection Onset Date Last Indicated Resolved Time Hepatitis A 04/12/2024 04/12/2024 Assessment Noted Time PHQ-2 Depression Total Score: 1 05/20/20 24 11:00 AM EDT documented as of this encounter Care Teams Bench Jeweler Relationship Specialty Start Date End Date Reza Panchal MD [address] [place] [address] PCP - General Family Medicine 09/30/24 documented as of this encounter
--- OUTSIDE RECORDS SUMMARY | 2025-07-18 15:43 | XMS_ITS | Encounter Summary ---
Author Organization [facility] Address [address] [place] [address] Care Team Providers Care Program Control Analyst Name Role Phone Reza Panchal MD Primary Care Provider [phone]- [phone] Reason for Visit * Reason Comments Flank Pain Encounter Details Date Type Department Care Team (Late st Contact Info) Description 07/18/2025 3:43 PM EDT - 07/18/2025 8:45 PM EDT Emergency [facility] EMERGENCY DEPARTMENT [address] [address] Crow Cunha MD [address] [place] [id number] Justin Troy MD [address] [place] [phone] Left flank pain (Primary Dx); Left sided [...] Recorded In the past 12 months has Zyrra, gas, oil, or water Quantified Skin threatened to shut off services in your [...] 3:42 PM EDT Susan Burk RN * Bradley Suicide Severity Rating Scale [...] to takethe antibiotic that was prescribed by [place] emergency department to help treat your symptoms. [...] through Care Everywhere. * Flank Pain Adult (Thai) * Abdominal Pain Adult (Thai) documented in this encounter Medications at Time [...] minutes. 25 tablet 5 01/03/2024 nystatin (MYCOSTATIN) [id number] UNIT/GM powderIndications:Y east dermatitis,Perineal irritation in female [...] Info) Description 08/13/2025 10:00 AM EDT Infusion [facility] OUTPATIENT ONCOLOGY [place] [address] [place] [address] 09/01/2025 11:00 AM EST Office Visit [facility] PULMONARY & CRITICAL CARE MEDICINE [address] [facility] [address] [place] [phone] 09/01/2025 11:30 AM EST Office Visit [facility] PULMONARY & [facility]ITICAL CARE MEDICINE [address] [facility] [address] [place] [phone] Maxine Gibson APRN [address] [place] [id number] 09/02/2025 10:00 AM EST Office Visit [facility] UROLOGY [address] [facility] [address] [place] [id number] Sanam Saunders APRN [address] [facility] [address] [place], [place] [id number] 09/24/2025 9:15 AM EST Office Visit [facility] RHEUMATOLOGY [address] [phone] John Sheppard APRN [address] [id number] 02/03/2026 10:45 AM EDT Office Visit [facility] RHEUMATOLOGY [address] [address] Patrice Santana DO [address] [address] documented as of this encounter [...] Lactic Acid, Reflex (07/18/2025 7:48 PM EDT) Pathologist [facility] [place] Lactate 1.4 0.5 - 2.0 mmol/L 07/18/2025 8:16 PM EDT [facility] Blood Line / Unknown 07/18/2025 7: 48 PM EDT 07/18/2025 7:57 PM EDT us Crow Cunha MD LAB BLOOD ORDERABLES Final Result [facility]
[address] [facility] [address] [place] [address], * (ABNORMAL) Blood Gas, Venous With Co-Ox (07/18/2025 7:07 PM EDT) Pathologist [facility] [place] Site Nurse/Dr Draw 07/18/2025 7:07 PM EDT [facility] THERAPY pH, Venous 7.351 7.310 - 7.410 pH Units 07/18/2025 7:07 PM EDT [facility] pCO2, Venous 52.5(H) 41.0 - 51.0 mm Hg 07/18/2025 7:07 PM EDT [facility] Comment:83 Value above refer ence range pO2, Venous 27.9 27.0 - 53.0 mm Hg 07/18/2025 7:07 PM EDT [facility] HCO3, Venous 29.0(H) 22.0 - 28.0 mmol/L 07/18/2025 7:07 PM EDT [facility] Base Excess, Venous 2.7(H) -2.0 - 2.0 mmol/L 07/18/2025 7:07 PM EDT [facility] Hemoglobin, Blood Gas 10.6(L) 14 - 18 g/dL 07/18/2025 7:07 PM EDT [facility] Oxyhemoglobin Venous 44.7 % 12/2024 7:07 PM EDT [facility] Methemoglobin Venous 0.3 % 12/2024 7:07 PM EDT [facility] Carboxyhemoglobin Venous 1.3 % 07/18/2025 7:07 PM EDT [facility] CO2 Content 30.7 22 - 33 mmol/L 07/18/2025 7:07 PM EDT [facility] Temperature 37.0 07/18/2025 7:07 PM EDT [facility] Barometric Pressure for Blood Gas 07/18/2025 7:07 PM EDT [facility] Comment:N/A Modality Nasal Cannula 07/18/2025 7:07 PM EDT [facility] FIO2 28 % 07/18/2025 7:07 PM EDT [facility] Rate 0 Breaths/ minute 07/18/2025 7:07 PM EDT [facility] PIP 0 cmH2O 07/18/2025 7:07 PM EDT [facility] Comment:Meter: [id number] Stamp Machine Servicer: [id number] IPAP 0 07/18/2025 7:07 PM EDT [facility] EPAP 0 07/18/2025 7:07 PM EDT [facility] Venous Blood 07/18/2025 7:07 PM EDT 07/18/2025 7:07 PM EDT us Crow Cunha MD LAB BLOOD ORDERABLES Final Result [facility]
[address] [facility] [address] [place] [address], [place] * (ABNORMAL) Urinalysis With Microscopic If Indicated (No Culture) - Straight Cath (07/18/2025 6:00 PM EDT) Color, UA Yellow Yellow, Straw 07/18/2025 6:12 PM EDT [facility] Appearance, UA Slightly Cloudy(A) Clear 07/18/2025 6:12 PM EDT [facility] pH, UA 6.0 5.0 - 8.0 07/18/2025 6:12 PM EDT [facility] Specific Solano, UA 1.015 1.005 - 1.030 07/18/2025 6:12 PM EDT [facility] Glucose, UA Negative Negative 07/18/2025 6:12 PM EDT [facility] Ketones, UA 40 mg/dL (2+)(A) Negative 07/18/2025 6:12 PM EDT [facility] Bilirubin, UA Negative Negative 07/18/2025 6:12 PM EDT [facility] Blood, UA Negative Negative 07/18/2025 6:12 PM EDT [facility] Protein, UA Trace(A) Negative 07/18/2025 6:12 PM EDT [facility] Leuk Esterase, UA Negative Negative 07/18/2025 6:12 PM EDT [facility] Nitrite, UA Negative Negative 07/18/2025 6:12 PM EDT [facility] Urobilinogen, UA 0.2 E.U./dL 0.2 - 1.0 E.U./dL 07/18/2025 6:12 PM EDT [facility] Urine (Straight Cath) Collection / Unknown 07/18/2025 6:00 PM EDT 07/18/2025 6:07 PM EDT Narrative [facility] - 07/18/2025 6:12 PM EDT Urine microscopic not indicated. us Crow Cunha MD URINE ORDERABLES Final Resu lt [facility]
[address] [facility] [address] [place] [address], [place] * (ABNORMAL) Beta Hydroxybutyrate Quantitative (07/18/2025 4:16 PM EDT) Beta-Hydroxybu tyrate Quant 0.912(H) 0.020 - 0.270 mmol/L 07/18/2025 6:34 PM EDT [facility] Blood Venipuncture / Unknown 07/18/2025 4:16 PM EDT 07/18/2025 4:23 PM EDT Narrative [facility] - 07/18/2025 6:34 PM EDT In the assessment of possible diabetic ketoacidosis, the test should be interpreted along with other clinical and laboratory findings. A level greater than 1 mmol/L should require further evaluation and levels of more than 3 mmol/L require immediate medical review. us Nomi Levin Cisneros PA-C LAB BLOOD ORDERABLES Final R esult [facility]
[address] [place] [address], * (ABNORMAL) CBC Auto Differential (07/18/2025 4:16 PM EDT) WBC 7.95 3.40 - 10.80 10*3/mm3 07/18/2025 4:26 PM EDT [facility] RBC 4.01 3.77 - 5.28 10*6/mm3 07/18/2025 4:26 PM EDT [facility] Hemoglobin 11.3(L) 12.0 - 15.9 g/dL 07/18/2025 4:26 PM EDT [facility] Hematocrit 35.4 34.0 - 46.6 % 07/18/2025 4:26 PM EDT [facility] MCV 88.3 79.0 - 97.0 fL 07/18/2025 4:26 PM EDT [facility] MCH 28.2 26.6 - 33.0 pg 07/18/2025 4:26 PM EDT [facility] MCHC 31.9 31.5 - 35.7 g/dL 07/18/2025 4:26 PM EDT [facility] RDW 13.1 12.3 - 15.4 % 07/18/2025 4:26 PM [facility] RDW-SD 42.8 37.0 - 54.0 fl 07/18/2025 4:26 PM [facility] MPV 9.9 6.0 - 12.0 fL 07/18/2025 4:26 PM [facility] Platelets 264 140 - 450 10*3/mm3 07/18/2025 4:26 PM [facility] Neutrophil % 69.5 42.7 - 76.0 % 07/18/2025 4:26 PM [facility] Lymphocyte % 15.7(L) 19.6 - 45.3 % 07/18/2025 4: PM [facility] Monocyte % 12.6(H) 5.0 - 12.0 % 07/18/2025 4: PM [facility] Eosinophil % 1.5 0.3 - 6.2 % 07/18/2025 4: PM [facility] Basophil % 0.4 0.0 - 1.5 % 07/18/2025 4:26 PM [facility] Immature Grans % 0.3 0.0 - 0.5 % 07/18/2025 4:26 PM [facility] Neutrophils, Absolute 5.53 1.70 - 7.00 10*3/mm3 07/18/2025 4: PM [facility] Lymphocytes, Absolute 1.25 0.70 - 3.10 10*3/mm3 07/18/2025 4:26 PM [facility] Monocytes, Absolute 1.00(H) 0.10 - 0.90 10*3/mm3 07/18/2025 4:26 PM [facility] Eosinophils, Absolute 0.12 0.00 - 0.40 10*3/mm3 07/18/2025 4: PM [facility] Basophils, Absolute 0.03 0.00 - 0.20 10*3/mm3 07/18/2025 4:26 PM [facility] Immature Grans, Absolute 0.02 0.00 - 0.05 10*3/mm3 07/18/2025 4:26 PM EDT [facility] Blood Venipuncture / Unknown 07/18/2025 4:16 PM EDT 07/18/2025 4:23 PM EDT us Crow Cunha MD LAB BLOOD ORDERABLES Final Result [facility]
[address] [facility] [address] [place] [address], [place] * Light Blue Top (07/18/2025 4:16 PM EDT) Extra Tube Hold for add-ons. 07/18/2025 4:31 PM EDT [facility] Comment:Auto resulted Blood Venipuncture / Unknown 07/18/2025 4:16 PM EDT 07/18/2025 4:23 PM EDT us Crow Cunha MD LAB BLOOD ORDER ONLY Final Result [facility]
[address] [facility] [address] [place] [address], [place] * Aragon Top (07/18/2025 4:16 PM EDT) Extra Tube Hold for add-ons. 07/18/2025 4:31 PM EDT [facility] Comment:Auto resulted. Blood Venipuncture / Unknown 07/18/2025 4:16 PM EDT 07/18/2025 4:23 PM EDT us Crow Cunha MD LAB BLOOD ORDER ONLY Final Result [facility]
[address] [facility] [address] [place] [address], [place] * Gold Top - SST (07/18/2025 4:16 PM EDT) Extra Tube Hold for add-ons. 07/18/2025 4:31 PM EDT [facility] Comment:Auto resulted. Blood Venipuncture / Unknown 07/18/2025 4:16 PM EDT 07/18/2025 4:23 PM EDT Crow Cunha MD LAB BLOOD ORDER ONLY Final Result [facility]
[address] [facility] [address] [place] [address], [place] * Lavender Top (07/18/2025 4:16 PM EDT) Extra Tube hold for add-on 07/18/2025 4:31 PM EDT [facility] Comment:Auto resulted Blood Venipuncture / Unknown 07/18/2025 4:16 PM EDT 07/18/2025 4:23 PM EDT Crow Cunha MD LAB BLOOD ORDER ONLY Final Result Performing Organization Address City/[facility]/ZIP Co de Phone Number [facility]
[address] [facility] [address] [place] [address], [place] * Green Top (Gel) (07/18/2025 4:16 PM EDT) Extra Tube Hold for add-ons. 07/18/2025 4:31 PM EDT [facility] Comment:Auto resulted. Blood Venipuncture / Unknown 07/18/2025 4:16 PM EDT 07/18/2025 4:23 PM EDT Crow Cunha MD LAB BLOOD ORDER ONLY Final Result Performing Organization Address City/[facility]/ZIP Co de Phone Number [facility]
[address] [facility] [address] [place] [address], [place] * (ABNORMAL) Lactic Acid, Plasma (07/18/2025 4:16 PM EDT) Lactate 2.1(HH) 0.5 - 2.0 mmol/L 07/18/2025 4:53 PM EDT [facility] Blood Venipuncture / Unknown 07/18/2025 4:16 PM EDT 07/18/2025 4:23 PM EDT us Crow Cunha MD LAB BLOOD ORDERABLES Final Result [facility]
[address] [place] [address], [place] * Lipase (07/18/2025 4:16 PM EDT) Lipase 17 13 - 60 U/L 07/18/2025 4:43 PM EDT [facility] Blood Venipuncture / Unknown 07/18/2025 4:16 PM EDT 07/18/2025 4:23 PM EDT us Crow Cunha MD LAB BLOOD ORDERABLES Final Result [facility]
[address] [place] [address], * (ABNORMAL) Comprehensive Metabolic Panel (07/18/2025 4:16 PM EDT) Glucose 130(H) 65 - 99 mg/dL 07/18/2025 4:52 PM EDT [facility] BUN 10.0 8.0 - 23.0 mg/dL 07/18/2025 4:52 PM EDT [facility] Creatinine 0.77 0.57 - 1.00 mg/dL 07/18/2025 4:52 PM EDT [facility] Sodium 138 136 - 145 mmol/L 07/18/2025 4:52 PM EDT [facility] Potassium 4.1 3.5 - 5.2 mmol/L 07/18/2025 4:52 PM EDT [facility] Comment:Specimen hemolyzed. Result may be falsely elevated. Chloride 101 98 - 107 mmol/L 07/18/2025 4:52 PM T [facility] CO2 21.5(L) 22.0 - 29.0 mmol/L 07/18/2025 4:52 PM [facility] Calcium 9.3 8.6 - 10.5 mg/dL 07/18/2025 4:52 PM [facility] Total Protein 7.7 6.0 - 8.5 g/dL 07/18/2025 4:52 PM [facility] Albumin 4.2 3.5 - 5.2 g/dL 07/18/2025 4:52 PM [facility] ALT (SGPT) 18 1 - 33 U/L 07/18/2025 4:52 PM [facility] AST (SGOT) 32 1 - 32 U/L 07/18/2025 4:52 PM [facility] Comment:Specimen hemolyzed. Result may be falsely elevated. Alkaline Phosphatase 95 39 - 117 U/L 07/18/2025 4:52 PM [facility] Total Bilirubin 0.7 0.0 - 1.2 mg/dL 07/18/2025 4:52 PM [facility] Globulin 3.5 gm/dL 07/18/2025 4:52 PM [facility] A/G Ratio 1.2 g/dL 07/18/2025 4:52 PM [facility] BUN/Creatinine Ratio 13.0 7.0 - 25.0 07/18/2025 4:52 PM [facility] Anion Gap 15.5(H) 5.0 - 15.0 mmol/L 07/18/2025 4:52 PM [facility] eGFR 84.1 >60.0 mL/min/1.7 3 07/18/2025 4:52 PM [facility] Blood Venipuncture / Unknown 07/18/2025 4:16 PM EDT 07/18/2025 4:23 PM EDT [facility] - 07/18/2025 4:52 PM EDT GFR [...] Cunha MD LAB BLOOD ORDERABLES Final Result [facility]
[address] [facility] [address] [place] [address], documented in this encounter Visit Diagnoses Diagnosis [...] patient refuses or patient unable to swallow. 1729 (Given - Provid er: Kory Johnson RN) [...] documented as of this encounter Care Teams Program Control Analyst Relationship Specialty Start Date End Date Reza Panchal MD [address] [place] [address] PCP - General Family Medicine 09/30/24 documented as of this encounter
--- OUTSIDE RECORDS SUMMARY | 2025-07-21 11:30 | XMS_ITS | Encounter Summary ---
Author Organization [facility] Address [address] [place] [id number] Care Team Providers Care Edge Cutting Machine Operator Name Role Phone Reza Panchal MD Primary Care Provider +1- [phone] Reason for Visit * Reason Comments Urinary Tract Infection ER follow-up/UTI /pyelonephritis/back pain Encounter Details Date Type Department Care Team (Late st Contact Info) Description 07/21/2025 11:30 AM EDT Office Visit [facility] UROLOGY [address] [place] [address] Sanam Saunders APRN 1760 [facility] [address] [place] [address] Acute pyelonephritis (Primary Dx); Urinary tract infection [...] drink = 0.6 oz pur e alcohol) [facility] Utilities Answer Date Recorded In the past 12 months has [employer] electric, gas, oil, or water company threatened [...] or training? Not on file Preferred Language Malian 01/28/2025 PHQ-2 Answer Date Recorded Retired PHQ-9: [...] sent through Care Everywhere. * Pyelonephritis Adult Kiet-ox-Qysb (Malian) * Urinary Tract Infection Female (Malian) * Interstitial Cystitis (Malian) * Overactive Bladder in Adults: What to Know (Malian) documented in this encounter Progress Notes * Sanam Saunders APRN - 07/21/2025 11:30 AM EDT Images from the original note were not included. Chief Complaint Urinary Tract Infection (ER follow-up/UTI/pyelonephritis/back pain) Subjective Madison Castellanos presents to [facility] for pyelonephritis/LUTS History of Present Illness History of Present Illness The patient is a 70-year-old female who presents post ER for follow-up of UTI/pyelonephritis. She initially presented to [facility] ED on 07/18/2025, where CT imaging indicated pyelonephritis and a UTI infection. She was discharged home on antibiotics, Levaquin. Subsequently, she returned to [facility] ED due to worsening pain, seeking reevaluation [...] 10:07 07/18/2025 18:00 07/21/2025 11:40 Urinalysis Specific [place], UA 1.015 Ketones, UA Negative 40 mg/dL [...] 07/21/2025 Slightly Cloudy (A) Clear Final Specific [place] 07/21/2025 1.030 1.005 - 1.030 Final pH, [...] 07/18/2025 6.0 5.0 - 8.0 Final Specific [place], UA 07/18/2025 1.015 1.005 - 1.030 Final [...] Final PIP 07/18/2025 0 cmH2O Final Meter: [id number] Cath Lab Radiology Technician: [id number] IPAP 07/18/2025 0 Final EPAP 07/18/2025 0 [...] Clarity, UA 06/13/2025 Clear Clear Final Specific [place] 06/13/2025 1.010 1.005 - 1.030 Final pH, [...] 05/14/2025 Slightly Cloudy (A) Clear Final Specific [place] 05/14/2025 1.015 1.005 - 1.030 Final pH, [...] initially discharged on Levaquin but returned to [facility] ED due to worsening pain. Repeat urinalysis [...] to reach out to the neuromodulation device financial services representative for further evaluation and possible device [...] July 21, 2025 14:26 EDT Dictated Utilizing Keeckeron Dictation: Part of this note may be an electronic communication center operator/translation of spoken language to printed text using the Cleo Dictation System. Patient or patient financial services representative verbalized consent for the use of Ambient Listening during the visit with Sanam Saunders APRN for chart documentation. 07/21/2025 14:26 EDT documented in this encounter Plan of Treatment Upcoming Encounters Date Type Department Care Team (Late st Contact Info) Description 08/13/2025 10:00 AM EDT Infusion [facility] OUTPATIENT ONCOLOGY [place] 330 [facility] 110 [place] [address] 09/01/2025 11:00 AM EST Office Visit [facility] PULMONARY & CRITICAL CARE MEDICINE 3000 [facility] [address] [place] [address] 09/01/2025 11:30 AM EST Office Visit [facility] PULMONARY & CRITICAL CARE MEDICINE 3000 [facility] [address] [place] [address] Maxine Gibson, FANCY WIRE DRAWER [address] [place] [address] 09/02/2025 10:00 AM EST Office Visit [facility] UROLOGY 1760 [facility] [address] [place] [address] Sanam Saunders, FANCY WIRE DRAWER 1760 [facility] [address] [place] [address] 09/24/2025 9:15 AM EST Office Visit [facility] RHEUMATOLOGY [address] [place] [address] John Sheppard APRN [address] [address] 02/03/2026 10:45 AM EDT Office Visit [facility] RHEUMATOLOGY [address] [place] [address] Patrice Santana DO 330 [facility] 100 [place], [place] [id number] Pending Results Name Type Priority Associated Diagnoses Date /Time Urine Culture - Urine, Urine, Clean Catch Microbiology Routine Urinary tract infection without hematuria, site unspecified Lower urinary tract symptoms (LUTS) 07/21/2025 1:41 PM EDT documented as of this encounter Goals Goal [...] unspecified documented in this encounter Results * (ABNORMAL) POC Urinalysis Dipstick, Automated (07/21/2025 11:40 AM EDT) Color Yellow Yellow, Straw, Dark Yellow, Ann [facility] Clarity, UA Slightly Cloudy(A) Clear [facility] Specific [place] 1.030 1.005 - 1.030 [facility] pH, Urine 6.0 5.0 - 8.0 [facility] Leukocytes Trace(A) Negative [facility] Nitrite, UA Negative Negative [facility] Protein, POC Negative Negative mg/dL [facility] Glucose, UA 2+(A) Negative mg/dL [facility] Ketones, UA Negative Negative [facility] Urobilinogen, UA Normal Normal, 0.2 E.U./dL [facility] Bilirubin Negative Negative [facility] Blood, UA Negative Negative [facility] Lot Number [id number] [facility] Expiration Date 11/07/2026 [facility] Urine 07/21/2025 11:4 0 AM EDT Sanam Saunders FANCY WIRE DRAWER POINT OF CARE TEST JENNY HELM Final Result [facility]
[address] [place] [address], documented in this encounter Visit Diagnoses Diagnosis [...] documented as of this encounter Care Teams Edge Cutting Machine Operator Relationship Specialty Start Date End Date Reza Panchal MD [address] [place] [address] PCP - General Family Medicine 09/30/24 documented as of this encounter
--- NOTE | 2025-07-22 11:55 | XR_ITS ---
FINAL REPORT CLINICAL HISTORY: cough and persistent shortness of breath COMPARISON: 05/25/2025 FINDINGS: 2 views of the chest were obtained . The heart is normal in size. The mediastinum is within normal limits. The lungs are clear. There is no pneumothorax. Osseous structures are unremarkable. IMPRESSION: No acute cardiopulmonary process. Reviewed, Interpreted and Dictated by Carolina Guerrier MD Transcribed by Kelsye Mena Authenticated and [facility]
--- OUTSIDE RECORDS SUMMARY | 2025-07-22 11:55 | XMS_ITS | Encounter Summary ---
[facility] Address [address] [place] [id number] Care Team Providers Care Marine Equipment Design Engineer Name Role Phone Reza Panchal MD Primary Care Provider +1- [phone] Encounter Details Date Type Department Care Team (Late st Contact Info) Description 05/16/2025 Results Follow-Up [facility] MEDICAL [facility] UROLOGY 3000 [facility] [address] [place] [address] Sanam Saunders APRN [address] [place] [address] Social History Tobacco Use Types Packs/Day Years Used Date Smoking Tobacco: Never Passive Smoke Exposure: Past Smokeless Tobacco: Never Comments: smokes, for 45 years Alcohol Use Standard Drinks/Week Comments No 0 (1 standard drink = 0.6 oz pur e alcohol) [facility] Utilities Answer Date Recorded In the past 12 months has [employer] electric, gas, oil, or water company threatened [...] Info) Description 08/13/2025 10:00 AM EDT Infusion [facility] OUTPATIENT ONCOLOGY [place] 330 [facility] 110 [place] [address] 09/01/2025 11:00 AM EST Office Visit [facility] PULMONARY & CRITICAL CARE MEDICINE 3000 [facility] [address] [place] [address] 09/01/2025 11:30 AM EST Office Visit [facility] PULMONARY & CRITICAL CARE MEDICINE 3000 [facility] [address] [place] [address] Maxine Gibson, REPAIRER [address] [place] [address] 09/02/2025 10:00 AM EST Office Visit [facility] UROLOGY [address] [address] Sanam Saunders, REPAIRER 1760 [facility] [address] [place] [address] 09/24/2025 9:15 AM EST Office Visit [facility] RHEUMATOLOGY [address] [place] [address] John Sheppard, REPAIRER 330 [facility] 100 [place] [address] 02/03/2026 10:45 AM EDT Office Visit [facility] RHEUMATOLOGY [address] [place] [address] Patrice Santana, 330 VINNIE BOTELLO [facility] 100 [place] [address] documented as of this encounter Goals Goal Patient Goal Type Associated Problems Recent Progress Patient-Stated? Author Track and Manage My Blood Pressure Patient Goals No Nathalia Phealn RN Note: Follow Up Date - not [...] documented as of this encounter Care Teams Marine Equipment Design Engineer Relationship Specialty Start Date End Date Reza Panchal MD [facility] [address] [address] PCP - General Family Medicine 09/30/24 documented as of this encounter
--- OUTSIDE RECORDS SUMMARY | 2025-07-22 11:55 | XMS_ITS | Encounter Summary ---
Author Organization [facility] Address [address] [place] [address] Care Team Providers Care Play Back Operator Name Role Phone Reza Panchal MD Primary Care Provider +1- [phone] Encounter Details Date Type Department Care Team [...] or training? Not on file Preferred Language Swiss 01/28/2025 PHQ-2 Answer Date Recorded Retired PHQ-9: [...] Info) Description 08/13/2025 10:00 AM EDT Infusion [facility] OUTPATIENT ONCOLOGY [place] [address] [place] [address] 09/01/2025 11:00 AM EST Office Visit [facility] PULMONARY & CRITICAL CARE MEDICINE 3000 [facility] [address] [place] [address] 09/01/2025 11:30 AM EST Office Visit [facility] PULMONARY & CRITICAL CARE MEDICINE 3000 [facility] [address] [place] [address] Maxine Gibson, PIPE LAYER [address] [place] [address] 09/02/2025 10:00 AM EST Office Visit [facility] UROLOGY 1760 [facility] [address] [place] [address] Sanam Saunders, PIPE LAYER 1760 [facility] [address] [place], [place] [address] 09/24/2025 9:15 AM EST Office Visit [facility] RHEUMATOLOGY [address] [place] [address] John Sheppard APRN [address] [facility] 100 [place] [address] 02/03/2026 10:45 AM EDT Office Visit [facility] RHEUMATOLOGY [address] [place] [address] Patrice Santana DO [address] [facility] 100 [place], [place] [address] documented as of this encounter Goals Goal [...] documented as of this encounter Care Teams Play Back Operator Relationship Specialty Start Date End Date Reza Panchal MD [address] [place] [address] PCP - General Family Medicine 09/30/24 documented as of this encounter
--- OUTSIDE RECORDS SUMMARY | 2025-07-22 11:55 | XMS_ITS | Encounter Summary ---
[facility] Address [address] [place] [address] Care Team Providers Care Liaison Officer Name Role Phone Reza Panchal MD Primary Care Provider +1- [phone] Encounter Details Date Type Department Care Team (Late st Contact Info) Description 07/08/2025 Results Follow-Up [facility] RHEUMATOLOGY [address] [address] John Sheppard APRN [address] [id number] Social History Tobacco Use Types Packs/Day Years Used Date Smoking Tobacco: Never Passive Smoke Exposure: Past Smokeless Tobacco: Never Comments: smokes, for 45 years Alcohol Use Standard Drinks/Week Comments No 0 (1 standard drink = 0.6 oz pur e alcohol) [facility] Utilities Answer Date Recorded In the past 12 months has [employer] electric, gas, oil, or water company threatened [...] [facility] OUTPATIENT ONCOL[facility]Y [place] 330 [facility] 110 [place] [address] 09/01/2025 11:00 AM EST Office Visit [facility] PULMONARY & CRITICAL CARE MEDICINE 3000 [facility] 240 [place] [address] 09/01/2025 11:30 AM EST Office Visit [facility] PULMONARY & CRITICAL CARE MEDICINE 3000 [facility] [address] [place] [address] Maxine Gibson, CONVEYOR BELT OPERATOR [address] [place] [address] 09/02/2025 10:00 AM EST Office Visit [facility] UROLOGY [address] [address] Sanam Saunders, CONVEYOR BELT OPERATOR 1760 [facility] [address] [place] [address] 09/24/2025 9:15 AM EST Office Visit [facility] RHEUMATOLOGY [address] [place] [address] John Sheppard, CONVEYOR BELT OPERATOR 330 [facility] 100 [place], [place] [address] 02/03/2026 10:45 AM EDT Office Visit [facility] RHEUMATOLOGY [address] [place] [address] Patrice Santana, [address] [address] documented as of this encounter Goals Goal [...] documented as of this encounter Care Teams Liaison Officer Relationship Specialty Start Date End Date Reza Panchal MD [address] [place] [address] PCP - General Family Medicine 09/30/24 documented as of this encounter
--- OUTSIDE RECORDS SUMMARY | 2025-07-22 11:55 | XMS_ITS | Encounter Summary ---
Author Organization [facility] Address [address] [place] [address] Care Team Providers Care Entry Level Receptionist Name Role Phone Reza Panchal MD Primary Care Provider +1- [phone] Encounter Details Date Type Department Care Team (Late st Contact Info) Description 05/14/2025 Telephone [facility] UROLOGY [address] [place] [address] Sanam Saunders APRN 1760 [facility] [address] [place] [address] Social History Tobacco Use Types Packs/Day Years Used Date Smoking Tobacco: Never Passive Smoke Exposure: Past Smokeless Tobacco: Never Comments: smokes, for 45 years Alcohol Use Standard Drinks/Week Comments No 0 (1 standard drink = 0.6 oz pur e alcohol) [facility] Utilities Answer Date Recorded In the past 12 months has [employer] electric, gas, oil, or water company threatened [...] VERBAL ON FILE Best call back number: [phone] Patient is needing: PT CALLED REQUESTING A LATER APPT TODAY OR FOR ANOTHER DAY THIS WEEK. PLEASE CALL TO ADVISE. THANKS. documented in this encounter Plan of Treatment Upcoming Encounters Date Type Department Care Team (Late st Contact Info) Description 08/13/2025 10:00 AM EDT Infusion [facility] OUTPATIENT ONCOLOGY [place] [address] [facility] 110 [place] [address] 09/01/2025 11:00 AM EST Office Visit [facility] PULMONARY & CRITICAL CARE MEDICINE 3000 [facility] 240 [place] [address] 09/01/2025 11:30 AM EST Office Visit [facility] PULMONARY & CRITICAL CARE MEDICINE 3000 [facility] 240 [place] [address] Maxine Gibson, FOREIGN LANGUAGE STENOGRAPHER [address] [place] [address] 09/02/2025 10:00 AM EST Office Visit [facility] UROLOGY 1760 [facility] 502 [place] [address] Sanam Saunders, FOREIGN LANGUAGE STENOGRAPHER 1760 [facility] [address] [place] [address] 09/24/2025 9:15 AM EST Office Visit [facility] RHEUMATOLOGY [address] [address] John Sheppard APRN [address] [address] 02/03/2026 10:45 AM EDT Office Visit [facility] RHEUMATOLOGY [address] [address] Patrice Santana DO [address] [address] documented as of this encounter [...] documented as of this encounter Care Teams Entry Level Receptionist Relationship Specialty Start Date End Date Reza Panchal MD [address] [place] [address] PCP - General Family Medicine 09/30/24 documented as of this encounter
--- OUTSIDE RECORDS SUMMARY | 2025-07-22 11:55 | XMS_ITS | Encounter Summary ---
[facility] Address [address] [place] [address] Care Team Providers Care Window Assembler Name Role Phone Reza Panchal MD Primary Care Provider +1- [phone] Encounter Details Date Type Department Care Team (Late st Contact Info) Description 07/08/2025 Results Follow-Up [facility] [place] 3000 [facility] 140 [place] [address] John Sheppard APRN 330 [facility] [address] [place], [place] [id number] Social History Tobacco Use Types Packs/Day Years Used Date Smoking Tobacco: Never Passive Smoke Exposure: Past Smokeless Tobacco: Never Comments: smokes, for 45 years Alcohol Use Standard Drinks/Week Comments No 0 (1 standard drink = 0.6 oz pur e alcohol) [facility] Utilities Answer Date Recorded In the past 12 months has [employer] electric, gas, oil, or water company threatened [...] or training? Not on file Preferred Language Taiwanese 01/28/2025 PHQ-2 Answer Date Recorded Retired PHQ-9: [...] Info) Description 08/13/2025 10:00 AM EDT Infusion [facility] OUTPATIENT ONCOLOGY [place] 330 [facility] 110 [place] [address] 09/01/2025 11:00 AM EST Office Visit [facility] PULMONARY & CRITICAL CARE MEDICINE 3000 [facility] 240 [place] [address] 09/01/2025 11:30 AM EST Office Visit [facility] PULMONARY & CRITICAL CARE MEDICINE 3000 [facility] [address] [place] [address] Maxine Gibson, FOREST MANAGER [address] [place] [address] 09/02/2025 10:00 AM EST Office Visit [facility] UROLOGY [address] [address] Sanam Saunders, FOREST MANAGER [address] [address] 09/24/2025 9:15 AM EST Office Visit [facility] RHEUMATOLOGY [address] [place] [address] John Sheppard, FOREST MANAGER 330 [facility] 100 [place] [address] 02/03/2026 10:45 AM EDT Office Visit [facility] RHEUMATOLOGY [address] [place] [address] Patrice Santana, Dillon BOTELLO [facility] 100 [place] [address] documented as of this encounter Goals Goal [...] documented as of this encounter Care Teams Window Assembler Relationship Specialty Start Date End Date Reza Panchal MD [address] [place] [address] PCP - General Family Medicine 09/30/24 documented as of this encounter
--- OUTSIDE RECORDS SUMMARY | 2025-07-22 11:55 | XMS_ITS | Encounter Summary ---
[facility] Address [address] [place] [address] Care Team Providers Care Child Care Name Role Phone Reza Panchal MD Primary Care Provider +1- [phone] Reason for Visit * Reason Comments Med Refill Encounter Details Date Type Department Care Team (Late st Contact Info) Description 12/19/2021 Refill [facility]IMARY [facility]ARE [address] [address] Dia Underwood MD 2039 [facility] 100 [place] [address] Social History Tobacco Use Types Packs/Day Years [...] Info) Description 08/13/2025 10:00 AM EDT Infusion [facility] OUTPATIENT ONCOLOGY [address] [place] [address] 09/01/2025 11:00 AM EST Office Visit [facility] PULMONARY & CRITICAL CARE MEDICINE 3000 [facility] 240 [place] [address] 09/01/2025 11:30 AM EST Office Visit [facility] PULMONARY & CRITICAL CARE MEDICINE 3000 [facility] 240 [place] [address] Maxine Gibson, BURGLARY INVESTIGATOR [address] [place] [address] 09/02/2025 10:00 AM EST Office Visit [facility] UROLOGY 1760 [facility] [address] [place] [address] Sanam Saunders, BURGLARY INVESTIGATOR 1760 [facility] [address] [place] [address] 09/24/2025 9:15 AM EST Office Visit [facility] RHEUMATOLOGY 330 [facility] 100 [place] [address] John Sheppard, BURGLARY INVESTIGATOR [address] [address] 02/03/2026 10:45 AM EDT Office Visit [facility] RHEUMATOLOGY 330 [facility] 100 [place] [address] Patrice Santana DO [address] [address] documented as of this encounter Visit Diagnoses [...] as of this encounter Care Teams Child Care Relationship Specialty Start Date End Date Reza Panchal MD [address] [address] PCP - General Family Medicine 09/30/24 documented as of this encounter
--- OUTSIDE RECORDS SUMMARY | 2025-07-22 11:56 | XMS_ITS | Encounter Summary ---
Author Organization [facility] Address [address] [place] [address] Care Team Providers Care Knot Tying Operator Name Role Phone Reza Panchal MD Primary Care Provider [phone]- [phone] Reason for Visit * Reason Comments Med Refill Encounter Details Date Type Department Care Team (Late st Contact Info) Description 03/22/2024 Refill [facility] PRIMARY CARE [address] [address] Huyen Hall MD [address] [facility] [address] [place] [address] Acquired hypothyroidism Social History Tobacco Use Types Packs/Day Years Used Date Smoking Tobacco: Never Smokeless Tobacco: Never Comments: smokes, for 45 years Alcohol Use Standard Drinks/Week Comments No 0 (1 standard drink = 0.6 oz pur e alcohol) [facility] Utilities Answer Date Recorded In the past 12 months has [employer] electric, gas, oil, or water company [...] or training? Not on file Preferred Language Brazilian 01/11/2024 PHQ-2 Answer Date Recorded Retired PHQ-9: [...] Info) Description 08/13/2025 10:00 AM EDT Infusion [facility] OUTPATIENT ONCOLOGY [place] [address] [facility] [address] [place] [phone] 09/01/2025 11:00 AM EST Office Visit [facility] PULMONARY & CRITICAL CARE MEDICINE [address] [facility] [address] [place] [address] 09/01/2025 11:30 AM EST Office Visit [facility] PULMONARY & CRITICAL CARE MEDICINE [address] [facility] [address] [place] [address] Maxine Gibson, AIRPORT SALES AGENT [address] [place] [address] 09/02/2025 10:00 AM EST Office Visit [facility] UROLOGY [address] [address] Sanam Saunders, AIRPORT SALES AGENT [address] [address] 09/24/2025 9:15 AM EST Office Visit [facility] RHEUMATOLOGY [address] [place] [address] John Sheppard, AIRPORT SALES AGENT [address] [facility] [address] [place] [address] 02/03/2026 10:45 AM EDT Office Visit [facility] RHEUMATOLOGY [address] [place] [address] Patrice Santana, Dillon [facility] [address] [place] [address] documented as of this encounter Goals Goal [...] documented as of this encounter Care Teams Knot Tying Operator Relationship Specialty Start Date End Date Reza Panchal MD [address] [place] [address] PCP - General Family Medicine 09/30/24 documented as of this encounter
--- OUTSIDE RECORDS SUMMARY | 2025-07-22 11:56 | XMS_ITS | Encounter Summary ---
Author Organization [facility] Address [address] [place] [address] Care Team Providers Care Distance Learning Program Coordinator Name Role Phone Reza Panchal MD Primary Care Provider [phone]- [phone] Encounter Details Date Type Department Care Team [...] Info) Description 08/13/2025 10:00 AM EDT Infusion [facility] OUTPATIENT ONCOLOGY [place] [address] [place] [address] [place] [phone] 09/01/2025 11:00 AM EST Office Visit [facility] PULMONARY & CRITICAL CARE MEDICINE [address] [facility] [place] [address] [place] [address] 09/01/2025 11:30 AM EST Office Visit [facility] PULMONARY & CRITICAL CARE MEDICINE [address] [facility] [place] [place] [address] Maxine Gibson, GENERAL OFFICE DISPATCHER [address] [place] [address] 09/02/2025 10:00 AM EST Office Visit [facility] UROLOGY [address] [facility] [address] [place] [address] Sanam Saunders, GENERAL OFFICE DISPATCHER [address] [facility] [address] [place], [place] [id number] 09/24/2025 9:15 AM EST Office Visit [facility] RHEUMATOLOGY [address] [place] [phone] John Sheppard APRN [address] [facility] 100 [place] [address] 02/03/2026 10:45 AM EDT Office Visit [facility] RHEUMATOLOGY [address] [place] [phone] Patrice Santana DO [address] [facility] [address] [place], [place] [id number] documented as of this encounter Goals Goal [...] documented as of this encounter Care Teams Distance Learning Program Coordinator Relationship Specialty Start Date End Date Reza Panchal MD [address] [place] [address] PCP - General Family Medicine 09/30/24 documented as of this encounter
--- OUTSIDE RECORDS SUMMARY | 2025-07-22 11:56 | XMS_ITS | Clinical Summary ---
Author Organization [facility] Address [address] [facility] [address] [place] [address] Phone Care Team Providers Care Water Pump Servicer Name Role Phone Unavailable Unavailable Conditions or Problems No information available. Medications No information available. Medications Administered No information available. Allergies, Adverse Reactions, Alerts No information available. Results No information available. Plan of Care No information available. Procedures No information available. Vital Signs No information available. Immunizations No information available. Advance Directives No information available.
--- OUTSIDE RECORDS SUMMARY | 2025-07-22 11:56 | XMS_ITS | Clinical Summary ---
Author Organization [facility] Address [address] [place] [address] Care Team Providers Care Music Librarian Name Role Phone Reza Panchal MD Primary Care Provider [phone] Allergies Active Allergy Reactions Criticality Noted Date Comments Aripiprazole Other (See Comments),Dizziness Medium 05/18/2021 Sleepy and staggering. Codeine Nausea And Vomiting Low 05/20/2016 Derivatives Donepezil Other (See Comments) Low 08/29/2022 Bad dreams Hydrocodone-Acetamino phen GI Intolerance Low 07/24/2023 Isosorbide Dinitrate Nausea And Vomiting Low 2015 headaches Metformin Other (See Comments) Low 07/02/2020 Pt refused after reading about carcinogen contamination Morphine Unknown - High Severity 07/18/2025 Respiratory issues Oxycodone GI Intolerance 06/05/2025 Medications * This [...] differently:10 mg OralDaily, Informant: Self, Reported on 07/21/2025 glucose blood test stripIndications:T ype 2 diabetes [...] 3 Times Daily, Informant: Self, Reported on 07/21/2025 levothyroxine (SYNTHROID, LEVOTHROID) 75 MCG tabletIndications: Acquired hypothyroidism Take 1 tablet by mouth Daily. 30 tablet 5 06/03/20 24 Active amLODIPine (NORVASC) 2.5 MG tabletIndications: Primary hypertension Take 1 tablet by mouth Daily. 30 tablet 2 06/07/20 24 Active Additional Information Patient taking differently:2.5 mg OralAs Needed, Reported on 07/21/2025 prasugrel (EFFIENT) 10 MG tablet Take 1 [...] tablet by mouth Daily. 03/03/20 25 Active Fluticasone-Salmet shira (ADVAIR/WIXELA) 100-50 MCG/ACT [...] mouth Daily. 90 tablet 04/29/20 25 Active nitrofurantoin, macrocrystal-monoh ydrate, (MACROBID) 100 [...] g 12 05/14/20 25 Active nystatin (MYCOSTATIN) [id number] UNIT/GM powderIndications: Yeast dermatitis,Perinea l irritation in [...] capsule by mouth Daily. 05/27/20 25 Active triamterene-hydroc hlorothiazide (DYAZIDE) 37.5-25 MG per capsule Take 1 capsule by mouth Daily. 06/10/20 25 Active levoFLOXacin (LEVAQUIN) 750 MG tablet Take 1 tablet by mouth Daily. 07/17/20 25 Active ketorolac (TORADOL) 10 MG tablet Take 1 tablet by mouth Every 6 (Six) Hours As Needed. 07/18/20 25 Active cyclobenzaprine (FLEXERIL) 5 MG tabletIndications: Lower urinary tract symptoms (LUTS),Back pain at L4-L5 level Take 1 tablet by mouth Every 8 (Eight) Hours As Needed for Muscle Spasms. 30 tablet 1 07/21/20 25 Active Jardiance 10 MG tablet tabletIndications: Type 2 diabetes mellitus with retinopathy, without long-term current use of insulin, macular edema presence unspecified, unspecified laterality, unspecified retinopathy severity TAKE 1 TABLET BY MOUTH DAILY 30 tablet 2 07/08/20 24 025 Discontin ued(*Ther apy completed ) chlorthalidone (HYGROTON) 25 MG tablet 03/25/20 25 025 Discontin ued(*Ther apy completed ) Vonoprazan Fumarate (VOQUEZNA) 10 MG tablet Take 1 tablet by mouth Daily. 30 tablet 11 05/12/20 25 025 Discontin ued(*Ther apy completed ) meloxicam (MOBIC) 15 MG tablet Take 1 tablet by mouth Daily As Needed for Mild Pain. 30 tablet 5 06/05/20 25 025 Discontin ued(*Ther apy completed ) alendronate (FOSAMAX) 70 MG tablet Take 1 tablet by mouth Every 7 (Seven) Days. 4 tablet 6 06/05/20 25 025 Discontin ued(*Ther apy completed ) Active Problems Problem Noted Date Diagnosed Date Acute pyelonephritis 07/21/2025 Infection due to non-O157 Sh iga toxin-producing [...] antibiotics to protect the rectal reservoir including iwtk-tla-jugkyej yogurt preparations to judy oral pills containing [...] (05/14/2025 6:23 PM EDT): Orders: nystatin (MYCOSTATIN) [id number] UNIT/GM powder; Apply topically to the appropriate area as directed 3 (Three) Times a Day. POC Urinalysis Dipstick, Automated Perineal irritation in female 05/14/2025 Assessment & Plan (05/14/2025 6:23 PM EDT): Orders: nystatin (MYCOSTATIN) [id number] UNIT/GM powder; Apply topically to the appropriate [...] Nausea vomiting and diarrhea 01/11/2024 Hypocalcemia 01/11/2024 Back pain at L4-L5 level 12/12/2023 Assessment & Plan (12/12/2023 2:09 PM [...] for respiratory distress or severe symptoms. Rx Gerard, Jocy Nathan, follow-up if symptoms or not [...] secondary diabetes 02/11/2021 Overview (02/17/2021): Dr Hatch Urinary tract infection without hematuria 2020 Epistaxis 01/13/2021 Sepsis 01/13/2021 Pneumonia due to [...] Angina pectoris 05/03/2019 Overview (12/31/2020): a. Remote [facility] -- data deficit: No reported disease. b. L ight [place] with medical treatment. c. [facility], 05/12/2011, Dr. Mosley: Angiographically normal [...] done before next visit. Reviewed labs from [facility]. Labs also requested. Assessment & Plan [...] Encounters Date Type Department Care Team Description 07/21/2025 11:30 AM EDT Office Visit [facility] UROLOGY [address] [facility] [address] [place] [address] Sanam Saunedrs APRN Acute pyelonephritis (Primary Dx); Urinary tract infection without hematuria, site unspecified; Lower urinary tract symptoms (LUTS); Back pain at L4-L5 level 07/21/2025 Travel 07/18/2025 3:43 PM EDT - 07/18/2025 8:45 PM EDT Emergency [facility] EMERGENCY DEPARTMENT [address] [place] [phone] Crow Cunha MD Lally, Matthew, MD Left flank pain (Primary Dx); Left sided abdominal pain Discharge Disposition: Home or Self Care 07/18/2025 Travel 07/14/2025 Telephone [facility] PULMONARY & CRITICAL CARE MEDICINE [address] [facility] [address] [place] [phone] Maxine Gibson APRN Shortness of Breath 07/09/2025 9:00 AM EDT Infusion [facility] ONCOLOGY [address] [place] [address] Age-related osteoporosis without current pathological fracture (Primary Dx) 07/08/2025 9:05 AM EDT Lab [facility] [place] [address] [facility] [address] [place] [address] Seropositive rheumatoid arthritis; High risk medication use; Fatigue, unspecified type 07/08/2025 Results Follow-Up [facility] RHEUMATOLOGY [address] [facility] [address] [place] [address] John Sheppard APRN 07/08/2025 Results Follow-Up [facility] [place] [address] [facility] [address] [place] [address] John Sheppard APRN 07/08/2025 Travel 06/17/2025 Results Follow-Up [facility] UROLOGY [address] [facility] [address] [place] [address] Sanam Saunders APRN 06/13/2025 10:00 AM EDT Office Visit [facility] UROLOGY [address] [facility] [address] [place] [address] Snaam Saunders, PARVIZ Infection due to 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 toxin-producing Escherichia coli (E.coli) (Primary Dx); Lower urinary tract symptoms (LUTS) 06/13/2025 Travel 06/05/2025 10:45 AM EDT Office Visit [facility] RHEUMATOLOGY [address] [facility] [address] [place] [address] John Sheppard APRN Seropositive rheumatoid arthritis (Primary Dx); High risk medication use; Primary osteoarthritis involving multiple joints; Age-related osteoporosis without current pathological fracture; NSAID long-term use; Fatigue, unspecified type 06/05/2025 Telephone [facility] RHEUMATOLOGY [address] [address] John Sheppard APRN 06/05/2025 Travel 06/04/2025 Results Follow-Up [facility] RHEUMATOLOGY [address] [address] Patrice Santana DO 06/03/2025 10:33 AM EDT - 06/03/2025 11:59 PM EDT Hospital Encounter [facility] [place] [address] [place] [phone] Patrice Santana DO Seropositive rheumatoid arthritis; High risk medication use; Primary osteoarthritis involving multiple joints; Age-related osteoporosis without current pathological fracture; NSAID long-term use Discharge Disposition: Home or Self Care 06/03/2025 Travel 05/28/2025 Telephone [facility] GASTROENTEROLOGY [address] [facility] [address] [place] [address] Ivelisse Cordon MD CANCEL PROCEDURE 05/23/2025 1:00 PM EDT - 05/23/2025 11:59 PM EDT Hospital Encounter [facility] OUTPATIENT ONCOLOGY [address] [place] [address] Patrice Santana DO Rheumatoid arthritis involving multiple sites with positive rheumatoid factor (Primary Dx) Discharge Disposition: Home or Self Care 05/23/2025 Travel 05/16/2025 Results Follow-Up [facility] UROLOGY [address] [facility] [address] [place] [address] Sanam Saunders APRN 05/14/2025 2:30 PM EDT Office Visit [facility] UROLOGY [address] [facility] [address] [place] [address] Pino-Akwa, Sanam, HAIR SPINNER Infection due to 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 toxin-producing Escherichia coli (E.coli) (Primary Dx); Yeast vaginitis; Yeast dermatitis; Perineal irritation in female; Atrophic vaginitis 05/14/2025 Travel 05/14/2025 Telephone [facility] UROLOGY [address] [facility] [address] [place] [address] Sanma Saunders APRN 05/13/2025 Prior Authorization [facility] GASTROENTEROLOGY [address] [facility] [address] [place] [phone] Khadar Julien RMA VOQUENZA 10 MG PA REQUEST; APPROVAL 05/12/2025 Refill [facility] GASTROENTEROLOGY [address] [facility] [address] [place] [address] Palak Graham PA-C 05/08/2025 Telephone [facility] UROLOGY [address] [facility] [address] [place] [address] STARK - CLINICAL 05/07/2025 Results Follow-Up [facility] DIAGNOSTIC CENTER AT [address] [place] [address] Palak Graham PA-C 05/06/2025 12:15 PM EDT Lab [facility]STIC [place] AT [address] [place] [address] Esophageal dysphagia; Gastroesophageal reflux disease, unspecified whether esophagitis present 05/06/2025 10:30 AM EDT Office Visit [facility] GASTROENTEROLOGY [address] [facility] [address] [place] [address] Palak Graham PA-C Esophageal dysphagia (Primary Dx); Gastroesophageal reflux disease, unspecified whether esophagitis present; History of Araseli fundoplication; History of aspiration pneumonia 05/06/2025 Telephone [facility] GASTROENTEROLOGY [address] [facility] [address] [place] [address] Palak Graham PA-C 05/06/2025 Travel 04/29/2025 9:30 AM EDT Office Visit [facility] PULMONARY & CRITICAL CARE MEDICINE [address] [facility] [address] [place] [address] Maxine Gibson, HAIR SPINNER Seasonal allergic rhinitis due to pollen (Primary Dx); Chronic cough; GERD without esophagitis; DEVANG (obstructive sleep apnea)/suspected nocturnal hypoxemia.-by history. Intolerant of NIPPV in past. 04/29/2025 Refill [facility] CARDIOLOGY [address] [place] [address] Tristan Mosley MD Med Refill [...] drink = 0.6 oz pur e alcohol) [facility] Utilities Answer Date Recorded In the [...] Mass Index 39.26 07/21/2025 11:37 AM EDT Plan of Treatment Upcoming Encounters Date Type Department Care Team (Late st Contact Info) Description 08/13/2025 10:00 AM EDT Infusion [facility] OUTPATIENT ONCOLOGY [place] [address] [place] [facility] [address] [place] [address] 09/01/2025 11:00 AM EST Office [facility] PULMON[facility] CRITICAL CARE MEDICINE [address] [facility] [address] [place] [address] 09/01/2025 11:30 AM EST Office Visit [facility] PULMONARY & CRITICAL CARE MEDICINE [address] [facility] [address] [place] [address] Maxine Gibson, HAIR SPINNER [address] [place] [address] 09/02/2025 10:00 AM EST Office Visit [facility] UROLOGY [address] [facility] [address] [place] [address] Sanam Saunders, HAIR SPINNER [address] [facility] [address] [place], [place] [phone] 09/24/2025 9:15 AM EST Office Visit [facility] RHEUMATOLOGY [address] [phone] John Sheppard, HAIR SPINNER [address] [id number] 02/03/2026 10:45 AM EDT Office Visit [facility] RHEUMATOLOGY [address] [phone] Patrice Santana, [address] [address] Health Maintenance Due Date Last Done Comments COLOGUARD 2002 COLON CANCER SCREENING 5 YEA R SIGMOIDOSCOPY [address] COLONOGRAPHY 2002 FIT Testing (1 year) 2002 URINE MICROALBUMIN-CREATININ E RATIO (uACR) 04/13/2022 04/13/2021, 04/07/2020, 07/16/2019 TDAP/TD VACCINES (2 - Td or Tdap) 04/24/2022 012 DIABETIC FOOT EXAM 01/05/2024 01/04/2023, 0 01/04/2023, 01/04/2023, Additional history exists FIELD AIDE PLAN OF CARE 02/07/2024 ANNUAL WELLNESS VISIT [...] day. Notes: Medical Devices Implanted Type Area Stock Raiser Device Identifier Shelf Expiration Date Model / Serial / Lot Pk Imp Trial Basic Bilat W/Ext Neurostm/Pne Ld Imp Kt - [id number] Implanted:Qty: 1 on 02/04/2025 by Brennan Lee MD at [facility] Implant N/A: Back [employer] 07/15/2025 [id number] / / [id number] Ld Neurostm Sacral Pne - [id number] Implanted:Qty: 1 on 02/04/2025 by Brennan Lee MD at [facility] Implant Back [employer] 02/20/2027 1901 / / [id number] Neurostm Sacral/Nerv [employer] Nonrechg W/Torq Wrench - [id number] Implanted:Qty: 1 on 02/20/2025 by Brennan Lee MD at [facility] Implant N/A: Back [employer] 12/12/2025 [id number] / / [id number] Kt Ld Stim Tined [employer] W/2/Sty Str/Crv - [id number] Implanted:Qty: 1 on 02/20/2025 by Brennan Lee MD at [facility] Implant N/A: Back [employer] 02/27/2027 [id number] / / [id number] Procedures Procedure Name Priority Date/Time Associated Diagnosis Comments URINE CULTURE Routine 07/21/2025 1:41 PM EDT Urinary tract infection without hematuria, site unspecified Lower urinary tract symptoms (LUTS) POCT URINALYSIS DIPSTICK, AUTOMATED Routine 07/21/2025 11:40 AM EDT Urinary tract infection without hematuria, site unspecified LACTIC ACID, REFLEX STAT 07/18/2025 7 :48 PM EDT SCANNED - TELEMETRY 07/18/2025 7 :24 PM EDT BLOOD GAS, VENOUS W/CO-OXIMETRY STAT 07/18/2025 7:07 PM EDT URINALYSIS W/ MICROSCOPIC IF INDICATED (NO CULTURE) STAT 07/18/2025 6:00 PM EDT KETONE BODIES STAT 07/18/2025 4:16 PM EDT LIGHT BLUE TOP STAT 07/18/2025 4:16 PM EDT ARAGNO TOP STAT 07/18/2025 4:16 PM EDT GOLD TOP - SST STAT 07/18/2025 4:16 PM EDT LAVENDER TOP STAT 07/18/2025 4:16 PM EDT DK GREEN TOP STAT 07/18/2025 4:16 PM EDT CBC AND DIFFERENTIAL STAT 07/18/2025 4:16 PM EDT BETA HYDROXYBUTYRATE QUANTITATIVE STAT 07/18/2025 4:16 PM EDT CBC WITH AUTO DIFFERENTIAL STAT 07/18/2025 4:16 PM EDT LACTIC ACID, PLASMA STAT 07/18/2025 4 :16 PM EDT LIPASE STAT 07/18/2025 4:16 PM EDT COMPREHENSIVE METABOLIC PANEL STAT 07/18/2025 4:16 PM EDT RAINBOW DRAW STAT 07/18/2025 4:[address] OUTSIDE ABD/PELVIS Routine 07/18/2025 12:00 AM EDT CBC AND DIFFERENTIAL Routine 07/08/2025 9:03 AM [...] Urinalysis Dipstick, Automated (07/21/2025 11:40 AM EDT) Only the most recent of3 resultswithin the time period is included. Color Yellow Yellow, Straw, Dark Yellow, Ann [facility] Clarity, UA Slightly Cloudy(A) Clear [facility] Specific [place] 1.030 1.005 - 1.030 [facility] pH, Urine 6.0 5.0 - 8.0 [facility] Leukocytes Trace(A) Negative [facility] Nitrite, UA Negative Negative [facility] Protein, POC Negative Negative mg/dL [facility] Glucose, UA 2+(A) Negative mg/dL [facility] Ketones, UA Negative Negative [facility] Urobilinogen, UA Normal Normal, 0.2 E.U./dL [facility] Bilirubin Negative Negative [facility] Blood, UA Negative Negative [facility] Lot Number [id number] [facility] Expiration Date 11/07/2026 [facility] Urine 07/21/2025 11:4 0 AM EDT us Sanam Saunders HAIR SPINNER POINT OF CARE TEST ORDE VOLODYMYR Final Result [facility]
[address] [place] [address], * STAT Lactic Acid, Reflex (07/18/2025 7:48 PM EDT) Pathologist [facility] Lactate 1.4 0.5 - 2.0 mmol/L 07/18/2025 8:16 PM EDT [facility] Blood Line / Unknown 07/18/2025 7: 48 PM EDT 07/18/2025 7:57 PM EDT Crow Cunha MD LAB BLOOD ORDERABLES Final Result [facility]
[address] [facility] [address] [place] [address], [place] * Telemetry Scan (07/18/2025 7:24 PM EDT) [facility] Onbase ECG ORDERABLES Final Result * (ABNORMAL) Blood Gas, Venous With Co-Ox (07/18/2025 7:07 PM EDT) Pathologist [facility] Site Nurse/Dr Draw 07/18/2025 7:07 PM EDT [facility] pH, Venous 7.351 7.310 - 7.410 pH Units 07/18/2025 7:07 PM EDT [facility] pCO2, Venous 52.5(H) 41.0 - 51.0 mm Hg 07/18/2025 7:07 PM EDT [facility] Comment:83 Value above refer ence range pO2, Venous 27.9 27.0 - 53.0 mm Hg 07/18/2025 7:07 PM EDT [facility] HCO3, Venous 29.0(H) 22.0 - 28.0 mmol/L 07/18/2025 7:07 PM EDT [facility] Base Excess, Venous 2.7(H) -2.0 - 2.0 mmol/L 07/18/2025 7:07 PM EDT [facility] Hemoglobin, Blood Gas 10.6(L) 14 - 18 g/dL 07/18/2025 7:07 PM EDT [facility] Oxyhemoglobin Venous 44.7 % 12/2024 7:07 PM EDT [facility] Methemoglobin Venous 0.3 % 12/2024 7:07 PM EDT [facility] Carboxyhemoglobin Venous 1.3 % 07/18/2025 7:07 PM EDT [facility] CO2 Content 30.7 22 - 33 mmol/L 07/18/2025 7:07 PM EDT [facility] Temperature 37.0 07/18/2025 7:07 PM EDT [facility] Barometric Pressure for Blood Gas 07/18/2025 7:07 PM EDT [facility] Comment:N/A Modality Nasal Cannula 07/18/2025 7:07 PM EDT [facility] FIO2 28 % 07/18/2025 7:07 PM EDT [facility] Rate 0 Breaths/ minute 07/18/2025 7:07 PM EDT [facility] PIP 0 cmH2O 07/18/2025 7:07 PM EDT [facility] Comment:Meter: [id number] End Engineer: [id number] IPAP 0 07/18/2025 7:07 PM EDT [facility] EPAP 0 07/18/2025 7:07 PM EDT [facility] Venous Blood 07/18/2025 7:07 PM EDT 07/18/2025 7:07 PM EDT us Crow Cunha MD LAB BLOOD ORDERABLES Final Result [facility] TH[facility]
[address] [place] [address], [place] * (ABNORMAL) Urinalysis With Microscopic If Indicated (No Culture) - Straight Cath (07/18/2025 6:00 PM EDT) Color, UA Yellow Yellow, Straw 07/18/2025 6:12 PM EDT [facility] Appearance, UA Slightly Cloudy(A) Clear 07/18/2025 6:12 PM EDT [facility] pH, UA 6.0 5.0 - 8.0 07/18/2025 6:12 PM EDT [facility] Specific [place], UA 1.015 1.005 - 1.030 07/18/2025 6:12 PM EDT [facility] Glucose, UA Negative Negative 07/18/2025 6:12 PM EDT [facility] Ketones, UA 40 mg/dL (2+)(A) Negative 07/18/2025 6:12 PM EDT [facility] Bilirubin, UA Negative Negative 07/18/2025 6:12 PM EDT [facility] Blood, UA Negative Negative 07/18/2025 6:12 PM EDT [facility] Protein, UA Trace(A) Negative 07/18/2025 6:12 PM EDT [facility] Leuk Esterase, UA Negative Negative 07/18/2025 6:12 PM EDT [facility] Nitrite, UA Negative Negative 07/18/2025 6:12 PM EDT [facility] Urobilinogen, UA 0.2 E.U./dL 0.2 - 1.0 E.U./dL 07/18/2025 6:12 PM EDT [facility] Urine (Straight Cath) Collection / Unknown 07/18/2025 6:00 PM EDT 07/18/2025 6:07 PM EDT Narrative [facility] - 07/18/2025 6:12 PM EDT Urine microscopic not indicated. us Crow Cunha MD URINE ORDERABLES Final Resu lt [facility]
[address] [place] [address], [place] * (ABNORMAL) Beta Hydroxybutyrate Quantitative (07/18/2025 4:16 PM EDT) Beta-Hydroxybu tyrate Quant 0.912(H) 0.020 - 0.270 mmol/L 07/18/2025 6:34 PM EDT [facility] Blood Venipuncture / Unknown 07/18/2025 4:16 PM EDT 07/18/2025 4:23 PM EDT Narrative [facility] - 07/18/2025 6:34 PM EDT In the assessment of possible diabetic ketoacidosis, the test should be interpreted along with other clinical and laboratory findings. A level greater than 1 mmol/L should require further evaluation and levels of more than 3 mmol/L require immediate medical review. us Nomi Levin Cisneros PA-C LAB BLOOD ORDERABLES Final R esult [facility]
[address] [place] [address], [place] * Aragon Top (07/18/2025 4:16 PM EDT) Extra Tube Hold for add-ons. 07/18/2025 4:31 PM EDT [facility] Comment:Auto resulted. Blood Venipuncture / Unknown 07/18/2025 4:16 PM EDT 07/18/2025 4:23 PM EDT us Crow Cunha MD LAB BLOOD ORDER ONLY Final Result [facility]
[address] [place] [address], [place] * Gold Top - [facility] (07/18/2025 4:16 PM EDT) Extra Tube Hold for add-ons. 07/18/2025 4:31 PM EDT [facility] Comment:Auto resulted. Blood Venipuncture / Unknown 07/18/2025 4:16 PM EDT 07/18/2025 4:23 PM EDT us Crow Cunha MD LAB BLOOD ORDER ONLY Final Result [facility]
[address] [place] [address], [place] * Green Top (Gel) (07/18/2025 4:16 PM EDT) Pathologist [facility] Extra Tube Hold for add-ons. 07/18/2025 4:31 PM EDT [facility] Comment:Auto resulted. Blood Venipuncture / Unknown 07/18/2025 4:16 PM EDT 07/18/2025 4:23 PM EDT us Crow Cunha MD LAB BLOOD ORDER ONLY Final Result Performing Organization Address [facility] Co de Phone Number [facility]
[address] [facility] [address] [place] [address], [place] * (ABNORMAL) CBC Auto Differential (07/18/2025 4:16 PM EDT) Only the most recent of3 resultswithin the time period is included. [facility] WBC 7.95 3.40 - 10.80 10*3/mm3 07/18/2025 4:26 PM EDT [facility] RBC 4.01 3.77 - 5.28 10*6/mm3 07/18/2025 4:26 PM EDT [facility] Hemoglobin 11.3(L) 12.0 - 15.9 g/dL 07/18/2025 4:26 PM EDT [facility] Hematocrit 35.4 34.0 - 46.6 % 07/18/2025 4:26 PM EDT [facility] MCV 88.3 79.0 - 97.0 fL 07/18/2025 4:26 PM EDT [facility] MCH 28.2 26.6 - 33.0 pg 07/18/2025 4:26 PM EDT [facility] MCHC 31.9 31.5 - 35.7 g/dL 07/18/2025 4:26 PM EDT [facility] RDW 13.1 12.3 - 15.4 % 07/18/2025 4:26 PM [facility] RDW-SD 42.8 37.0 - 54.0 fl 07/18/2025 4:26 PM [facility] MPV 9.9 6.0 - 12.0 fL 07/18/2025 4: PM [facility] Platelets 264 140 - 450 10*3/mm3 07/18/2025 4:26 PM [facility] Neutrophil % 69.5 42.7 - 76.0 % 07/18/2025 4: PM [facility] Lymphocyte % 15.7(L) 19.6 - 45.3 % 07/18/2025 4: PM [facility] Monocyte % 12.6(H) 5.0 - 12.0 % 07/18/2025 4: PM [facility] Eosinophil % 1.5 0.3 - 6.2 % 07/18/2025 4: PM [facility] Basophil % 0.4 0.0 - 1.5 % 07/18/2025 4: PM [facility] Immature Grans % 0.3 0.0 - 0.5 % 07/18/2025 4:26 PM [facility] Neutrophils, Absolute 5.53 1.70 - 7.00 10*3/mm3 07/18/2025 4: PM [facility] Lymphocytes, Absolute 1.25 0.70 - 3.10 10*3/mm3 07/18/2025 4:26 PM [facility] Monocytes, Absolute 1.00(H) 0.10 - 0.90 10*3/mm3 07/18/2025 4: PM [facility] Eosinophils, Absolute 0.12 0.00 - 0.40 10*3/mm3 07/18/2025 4:26 PM [facility] Basophils, Absolute 0.03 0.00 - 0.20 10*3/mm3 07/18/2025 4:26 PM [facility] Immature Grans, Absolute 0.02 0.00 - 0.05 10*3/mm3 07/18/2025 4:26 PM EDT [facility] Blood Venipuncture / Unknown 07/18/2025 4:16 PM EDT 07/18/2025 4:23 PM EDT us Crow Cunha MD LAB BLOOD ORDERABLES Final Result [facility]
[address] [place] [address], [place] * Lavender Top (07/18/2025 4:16 PM EDT) Extra Tube hold for add-on 07/18/2025 4:31 PM EDT [facility] Comment:Auto resulted Blood Venipuncture / Unknown 07/18/2025 4:16 PM EDT 07/18/2025 4:23 PM EDT us Crow Cunha MD LAB BLOOD ORDER ONLY Final Result Performing Organization Address City/[facility]/ZIP Co de Phone Number [facility]
[address] [place] [address], [place] * Light Blue Top (07/18/2025 4:16 PM EDT) Extra Tube Hold for add-ons. 07/18/2025 4:31 PM EDT [facility] Comment:Auto resulted Blood Venipuncture / Unknown 07/18/2025 4:16 PM EDT 07/18/2025 4:23 PM EDT us Crow uCnha MD LAB BLOOD ORDER ONLY Final Result [facility]
[address] [place] [address], [place] * Lipase (07/18/2025 4:16 PM EDT) Lipase 17 13 - 60 U/L 07/18/2025 4:43 PM EDT [facility] Blood Venipuncture / Unknown 07/18/2025 4:16 PM EDT 07/18/2025 4:23 PM EDT Crow Cunha MD LAB BLOOD ORDERABLES Final Result [facility]
[address] [place] [address], * (ABNORMAL) Lactic Acid, Plasma (07/18/2025 4:16 PM EDT) Lactate 2.1(HH) 0.5 - 2.0 mmol/L 07/18/2025 4:53 PM EDT [facility] Blood Venipuncture / Unknown 07/18/2025 4:16 PM EDT 07/18/2025 4:23 PM EDT Crow Cunha MD LAB BLOOD ORDERABLES Final Result Performing Organization Address City/[facility]/ZIP Co de Phone Number [facility]
[address] * (ABNORMAL) Comprehensive Metabolic Panel (07/18/2025 4:16 PM EDT) Only the most recent of3 resultswithin the time period is included. Glucose 130(H) 65 - 99 mg/dL 07/18/2025 4:52 PM EDT [facility] BUN 10.0 8.0 - 23.0 mg/dL 07/18/2025 4:52 PM EDT [facility] Creatinine 0.77 0.57 - 1.00 mg/dL 07/18/2025 4:52 PM EDT [facility] Sodium 138 136 - 145 mmol/L 07/18/2025 4:52 PM EDT [facility] Potassium 4.1 3.5 - 5.2 mmol/L 07/18/2025 4:52 PM EDT [facility] Comment:Specimen hemolyzed. Result may be falsely elevated. Chloride 101 98 - 107 mmol/L 07/18/2025 4:52 PM EDT [facility] CO2 21.5(L) 22.0 - 29.0 mmol/L 07/18/2025 4:52 PM [facility] Calcium 9.3 8.6 - 10.5 mg/dL 07/18/2025 4:52 PM T [facility] Total Protein 7.7 6.0 - 8.5 g/dL 07/18/2025 4:52 PM [facility] Albumin 4.2 3.5 - 5.2 g/dL 07/18/2025 4:52 PM [facility] ALT (SGPT) 18 1 - 33 U/L 07/18/2025 4:52 PM [facility] AST (SGOT) 32 1 - 32 U/L 07/18/2025 4:52 PM T [facility] Comment:Specimen hemolyzed. Result may be falsely elevated. Alkaline Phosphatase 95 39 - 117 U/L 07/18/2025 4:52 PM [facility] Total Bilirubin 0.7 0.0 - 1.2 mg/dL 07/18/2025 4:52 PM [facility] Globulin 3.5 gm/dL 07/18/2025 4:52 PM [facility] A/G Ratio 1.2 g/dL 07/18/2025 4:52 PM [facility] BUN/Creatinine Ratio 13.0 7.0 - 25.0 07/18/2025 4:52 PM [facility] Anion Gap 15.5(H) 5.0 - 15.0 mmol/L 07/18/2025 4:52 PM [facility] eGFR 84.1 >60.0 mL/min/1.7 3 07/18/2025 4:52 PM [facility] Blood Venipuncture / Unknown 07/18/2025 4:16 PM EDT 07/18/2025 4:23 PM EDT Narrative [facility] - 07/18/2025 4:52 PM EDT [...] Cunha MD LAB BLOOD ORDERABLES Final Result [facility]
[address] [place] [address], [place] * CT Outside Abd/Pelvis (07/18/2025 12:00 AM EDT) Narrative SYSTEMGENERATED, DOCUMENTATION - 07/21/2025 11:53 AM EDT This procedure was auto-finalized with no dictation required. us Sanam Saunders APRN IMG CT ORDERABLES Final Result * Hepatitis Panel, Acute (07/08/2025 9:03 AM [...] ORDERABLES F inal Result Performing Organization Address City/[facility]/ZIP Co de Phone Number [facility]
[address] [place] [address], * Vitamin D 25 Hydroxy (07/08/2025 9:03 AM EDT) 25 Hydroxy, Vitamin D 56.4 30.0 - 100.0 ng/ml 07/08/2025 3:02 PM EDT [facility] Blood Venipuncture / Unknown 07/08/2025 9:03 AM EDT 07/08/2025 9:03 AM EDT Narrative [facility] - 07/08/2025 3:02 PM EDT Reference Range for Total Vitamin D 25(OH) Deficiency <20.0 ng/mL Insufficiency 21-29 ng/mL Sufficiency 30-100 ng/mL Toxicity >100 ng/ml John Sheppard APRN LAB BLOOD ORDERABLES F inal Result Performing Organization Address [facility]/ZIP Co de Phone Number [facility]
[address] [place] [address], * Sedimentation Rate (07/08/2025 9:03 AM EDT) Sed Rate 28 0 - 30 mm/hr 07/08/2025 2:36 PM EDT [facility] Blood Venipuncture / Unknown 07/08/2025 9:03 AM EDT 07/08/2025 9:03 AM EDT John Sheppard HAIR SPINNER LAB BLOOD ORDERABLES F inal Result [facility]
[address] [place] [address], * C-reactive Protein (07/08/2025 9:03 AM EDT) [facility] C-Reactive Protein 0.30 0.00 - 0.50 mg/dL 07/08/2025 2:56 PM EDT [facility] Blood Venipuncture / Unknown 07/08/2025 9:03 AM EDT 07/08/2025 9:03 AM EDT John Sheppard HAIR SPINNER LAB BLOOD ORDERABLES F inal Result Performing Organization Address City/[facility]/ZIP Co de Phone Number [facility]
[address] [place] [address], * Urine Culture - Urine, Urine, Clean Catch (06/13/2025 9:55 AM EDT) [facility] Urine Culture No growth DICK 06/15/2025 4:46 AM EDT [facility] Urine Urine specimen obtained by clean catch procedure / Unknown Collection / Unknown 06/13/2025 9:55 AM EDT 06/13/2025 9:55 AM EDT Sanam Saunders HAIR SPINNER MICROBIOLOGY - GENERAL ORDERABLES Final Result Performing Organization Address City/[facility]/ZIP Co de Phone Number [facility]
[address] [place] [address], * DEXA Bone Density Axial (06/03/2025 10:55 [...] fall-prevention measurements. The National Osteoporosis Foundation recommends (http://www.nof.org/hcp/practice/syeayqkb-gon-uokipvbd-guidelines/clinicians-christine de) that FDA-approved medical therapies be considered [...] the left hip with 95% confidence is 0.915417 gm/cm2 at the hip and 0.560467 g/cm2 at the lumbar spine. Report dictated by: Kiah Weston PA-c I have personally reviewed this case and agree with the findings above: Electronically Signed: Julito Kirkland MD 06/03/2025 4:39 PM EDT Workstation ID: [id number] Narrative 06/03/2025 4:39 PM EDT DUAL-ENERGY X-RAY [...] normal patients. According to criteria established by the[facility], patients with T-scores between 1.0 and [...] exercises and fall-prevention measurements. The NationalOsteoporosis Foundation recommends(http://www.nof.org/hcp/practice/zowpxzdq-trv-ebvjpvkg-guidelines/clin ician s-guide) that FDA-approved medical therapies be [...] at the left hipwith 95% confidence is 0.659315 gm/cm2 at the hip and 0.904164 g/cm2 atthe lumbar spine. Report dictated by: Kiah Weston PA-c I have personally reviewed this case and agree with the findings above: Electronically Signed: Julito Kirkland MD 06/03/2025 4:39 PM EDT Workstation ID: [id number] us Patrice Santana DO IMG DXA ORDERABLES Fin al Result * LABS SCANNED (05/14/2025) us Sanam Saunders PARVIZ LAB BLOOD ORDERABLES Fi nal Result * TSH Rfx On Abnormal To Free T4 (05/06/2025 12:01 PM EDT) Pathologist [facility] TSH 2.680 0.270 - 4.200 uIU/mL 05/06/2025 7:29 PM EDT [facility] Blood Venipuncture / Unknown 05/06/2025 12:01 PM EDT 05/06/2025 12:01 PM EDT Palak Graham PA-C LAB BLOOD ORDERABLES Final Result [facility]
[address] [place] [address], * (ABNORMAL) POC Glycosylated Hemoglobin (Hb A1C) (04/15/2024 3:58 PM EDT) [facility] Hemoglobin A1C 5.6 4.5 - 5.7 % [facility] Lot Number [id number] [facility] Expiration Date 12/31/2025 [facility] Blood 04/15/2024 3:58 PM EDT Huyen Pal MD POINT OF CARE TEST ORDERABL ES Final Result [facility]
[address] [place] [address], * (ABNORMAL) Lipid Panel (02/21/2024 10:20 AM EDT) Pathologist [facility] Total Cholesterol 143 0 - 200 mg/dL 02/21/2024 11:45 PM EDT [facility] Triglycerides 212(H) 0 - 150 mg/dL 02/21/2024 11:45 PM EDT [facility] HDL Cholesterol 37(L) 40 - 60 mg/dL 02/21/2024 11:45 PM EDT [facility] LDL Cholesterol 71 0 - 100 mg/dL 02/21/2024 11:45 PM EDT [facility] VLDL Cholesterol 35 5 - 40 mg/dL 02/21/2024 11:45 PM EDT [facility] LDL/HDL Ratio 1.72 02/21/2024 11:45 PM EDT [facility] Blood Structure of right upper limb / Unknown Venipuncture / Unknown 02/21/2024 10:20 AM EDT 02/21/2024 10:20 AM EDT Narrative [facility] - 02/21/2024 11:45 PM EDT [...] Pal MD LAB BLOOD ORDERABLES Final Result [facility]
[address] [place] [address], * SCANNED - EYE EXAM (07/20/2023) Anatomical [...] AM EDT) Fecal Occult Blood Negative Negative [facility] Lot Number [id number] [facility] Expiration Date 11/15/2024 [facility] DEVELOPER LOT NUMBER [id number] [facility] DEVELOPER EXPIRATION DATE 02/12/2025 [facility] Positive Control Positive Positive [facility] Negative Control Negative Negative [facility] Stool 04/13/2023 11:3 2 AM EDT Huyen Pal MD POINT OF CARE TEST ORDERABL ES Final Result [facility]
[address] [place] [address], [place] [phone] * Microalbumin / Creatinine Urine Ratio - [...] 2:11 PM EDT 04/14/2021 Comment:URINE RELEASE TO [facility] Narrative [facility] - 04/14/2021 10:09 AM EDT Performed at: - [address] [id number] Beater Tender: Jean Stephens PhD, Phone: [phone] Huyen Pal MD URINE ORDERABLES Final Resu lt Performing Organization Address City/State/[facility] Co de Phone Number [facility] [address] [id number], [place] [phone] [facility] [address] [place] [address], [place] [phone] * SCANNED - INFLUENZA (07/16/2019) Huyen Pal [...] Documents on File Type Date Recorded Patient Epic Trainer Expl anation PATIENT ADVANCE DIRECTIVES - SCAN [...] Of Support Discussed With: Patient Care Teams Music Librarian Relationship Specialty Start Date End Date Reza Panchal MD [facility] [place] [address] PCP - General Family Medicine 09/30/24
--- OUTSIDE RECORDS SUMMARY | 2025-07-22 11:56 | XMS_ITS | Encounter Summary ---
[facility] Address [address] [place] [address] Care Team Providers Care Mechanical Engineering Teacher Name Role Phone Reza Panchal MD Primary Care Provider +1- [phone] Encounter Details Date Type Department Care Team (Late st Contact Info) Description 06/05/2025 Telephone [facility] RHEUMATOLOGY [address] [address] John Sheppard APRN [address] [address] Social History Tobacco Use Types Packs/Day Years Used Date Smoking Tobacco: Never Passive Smoke Exposure: Past Smokeless Tobacco: Never Comments: smokes, for 45 years Alcohol Use Standard Drinks/Week Comments No 0 (1 standard drink = 0.6 oz pur e alcohol) [facility] Utilities Answer Date Recorded In the past 12 months has [employer], gas, oil, or water [employer] threatened to shut off services in your [...] been on alendronate but thinks it was [phone] when she originally started it. It was [...] AM EDT Please get hospital records from [facility]. documented in this encounter Plan of Treatment Upcoming Encounters Date Type Department Care Team (Late st Contact Info) Description 08/13/2025 10:00 AM EDT Infusion [facility] OUTPATIENT ONCOLOGY [place] [address] [place] [place] [address] 09/01/2025 11:00 AM EST Office Visit [facility] PULMONARY & CRITICAL CARE MEDICINE [address] [facility] [address] [place] [address] 09/01/2025 11:30 AM EST Office Visit [facility] PULMONARY & CRITICAL CARE MEDICINE [address] [facility] [address] [place] [address] Maxine Gibson, MEDICAID BILLING CLERK [address] [place] [address] 09/02/2025 10:00 AM EST Office Visit [facility] UROLOGY [address] [place] [address] Sanam Saunders MEDICAID BILLING CLERK [address] [facility] [address] [place], [place] [id number] 09/24/2025 9:15 AM EST Office Visit [facility] RHEUMATOLOGY [address] [phone] John Sheppard APRN [address] [id number] 02/03/2026 10:45 AM EDT Office Visit [facility] RHEUMATOLOGY [address] [address] Patrice Santana, [address] [id number] documented as of this encounter Goals Goal [...] documented as of this encounter Care Teams Mechanical Engineering Teacher Relationship Specialty Start Date End Date Reza Panchal MD [address] [place] [address] PCP - General Family Medicine 09/30/24 documented as of this encounter
--- OUTSIDE RECORDS SUMMARY | 2025-07-22 11:56 | XMS_ITS | Encounter Summary ---
[facility] Address [address] [place] [address] Care Team Providers Care Paper Roller Name Role Phone Reza Panchal MD Primary Care Provider +1- [phone] Reason for Visit * Reason Onset Date Comments Shortness of Breath 07/14/2025 Encounter Details Date Type Department Care Team (Late st Contact Info) Description 07/14/2025 Telephone [facility] PULMONARY & CRITICAL CARE MEDICINE 3000 [facility] [address] [place] [address] Maxine Gibson, WEIGHER ALLOY [address] [place] [address] Shortness of Breath Social History Tobacco Use Types Packs/Day Years Used Date Smoking Tobacco: Never Passive Smoke Exposure: Past Smokeless Tobacco: Never Comments: smokes, for 45 years Alcohol Use Standard Drinks/Week Comments No 0 (1 standard drink = 0.6 oz pur e alcohol) [facility] Utilities Answer Date Recorded In the past 12 months has [employer], gas, oil, or water company threatened to [...] ONCOLOGY [place] [address] [place] [address] 09/01/2025 11:00 AM EST Office Visit [facility] PULMONARY & CRITICAL CARE MEDICINE 3000 [facility] [address] [place] [address] 09/01/2025 11:30 AM EST Office Visit [facility] PULMONARY & CRITICAL CARE MEDICINE 3000 [facility] [address] [place] [address] Maxine Gibson, WEIGHER ALLOY [address] [place] [id number] 09/02/2025 10:00 AM EST Office Visit [facility] UROLOGY [address]60 [facility] [address] [place] [address] Sanam Saunders, PARVIZ 1760 [facility] [address] [place] [address] 09/24/2025 9:15 AM EST Office Visit [facility] RHEUMATOLOGY [address] [address] John Sheppard APRN [address] [address] 02/03/2026 10:45 AM EDT Office Visit [facility] RHEUMATOLOGY [address] [address] Patrice Santana DO [address] [address] documented as of this encounter [...] documented as of this encounter Care Teams Paper Roller Relationship Specialty Start Date End Date Reza Panchal MD [facility] [place] [address] PCP - General Family Medicine 09/30/24 documented as of this encounter
--- OUTSIDE RECORDS SUMMARY | 2025-07-22 11:56 | XMS_ITS | Encounter Summary ---
Author Organization [facility] Address [address] [place] [address] Care Team Providers Care Intellectual Property Counsel Name Role Phone Reza Panchal MD Primary Care Provider +1- [phone] Encounter Details Date Type Department Care Team (Latest Contact Info) Description 07/21/2025 Travel Social History Tobacco Use Types Packs/Day Years Used Date Smoking Tobacco: Never Passive Smoke Exposure: Past Smokeless Tobacco: Never Comments: smokes, for 45 years Alcohol Use Standard Drinks/Week Comments Never 0 (1 standard drink = 0.6 oz pur e alcohol) [facility] Utilities Answer Date Recorded In the past [...] Info) Description 08/13/2025 10:00 AM EDT Infusion [facility] OUTPATIENT ONCOLOGY [place] [address] [place] [phone] 09/01/2025 11:00 AM EST Office Visit [facility] PULMONARY & CRITICAL CARE MEDICINE 3000 [facility] [address] [place] [phone] 09/01/2025 11:30 AM EST Office Visit [facility] PULMONARY & CRITICAL CARE MEDICINE 3000 [facility] [address] [place] [phone] Maxine Gibson, GRAIN COMBINE DRIVER [address] [place] [address] 09/02/2025 10:00 AM EST Office Visit [facility] UROLOGY [address] [facility] [address] [place] [address] Sanam Saunders, GRAIN COMBINE DRIVER 1760 [facility] [address] [place], [place] [phone] 09/24/2025 9:15 AM EST Office Visit [facility] RHEUMATOLOGY [address] [place] [phone] John Sheppard APRN [address] [place] [address] [facility] [address] [place] [address] 02/03/2026 10:45 AM EDT Office Visit [facility] RHEUMATOLOGY [address] [place] [address] Patrice Santana DO [address] [facility] [address] [place], [place] [address] documented as of this encounter Goals Goal [...] documented as of this encounter Care Teams Intellectual Property Counsel Relationship Specialty Start Date End Date Reza Panchal MD [address] [place] [address] PCP - General Family Medicine 09/30/24 documented as of this encounter
--- OUTSIDE RECORDS SUMMARY | 2025-07-22 11:56 | XMS_ITS | Encounter Summary ---
Author Organization [facility] Address [address] [place] [address] Care Team Providers Care Pharmaceutical Plant Operator Name Role Phone Reza Panchal MD Primary Care Provider +1- [phone] Encounter Details Date Type Department Care Team (Latest Contact Info) Description 07/18/2025 Travel Social History Tobacco Use Types Packs/Day Years Used Date Smoking Tobacco: Never Passive Smoke Exposure: Past Smokeless Tobacco: Never Comments: smokes, for 45 years Alcohol Use Standard Drinks/Week Comments No 0 (1 standard drink = 0.6 oz pur e alcohol) [facility] Utilities Answer Date Recorded In [...] or training? Not on file Preferred Language Micronesian 01/28/2025 PHQ-2 Answer Date Recorded Retired PHQ-9: [...] 3:42 PM EDT Susan Burk RN * Regina Suicide Severity Rating Scale (Screener/Recent Self-Report) Question [...] - [facility] OUTPATIENT ONCOLOGY [place] [address] [facility] [place] [address] [place] [address] 09/01/2025 11:00 AM EST Office Visit [facility] PULMONARY & CRITICAL CARE MEDICINE 3000 [facility] [address] [place] [address] 09/01/2025 11:30 AM EST Office Visit [facility] PULMONARY & CRITICAL CARE MEDICINE [address] [facility] [address] [place] [address] Maxine Gibson, NUCLEAR SECURITY OFFICER [address] [place] [address] 09/02/2025 10:00 AM EST Office Visit [facility] UROLOGY [address]60 [facility] [address] [place] [address] Sanam Saunders, NUCLEAR SECURITY OFFICER 1760 [facility] [address] [place] [address] 09/24/2025 9:15 AM EST Office Visit [facility] RHEUMATOLOGY 330 [facility] [address] [place] [phone] John Sheppard, NUCLEAR SECURITY OFFICER [address] [facility] [place] 100 [place] [address] 02/03/2026 10:45 AM EDT Office Visit [facility] RHEUMATOLOGY [address] [place] [address] Patrice Santana, DO [address] [facility] ([place] [place] 100 [place] [address] documented as of this encounter Goals Goal [...] as of this encounter Care Teams Pharmaceutical Plant Operator Relationship Specialty Start Date End Date Reza Panchal MD [address] [place] [address] PCP - General Family Medicine 09/30/24 documented as of this encounter
--- OUTSIDE RECORDS SUMMARY | 2025-07-22 11:56 | XMS_ITS | Encounter Summary ---
[facility] Organization [facility] Address [address] [place] [address] Care Team Providers Care Patient Access Name Role Phone Reza Panchal MD Primary Care Provider +1- [phone] Reason for Visit * Reason Comments Med Refill Encounter Details Date Type Department Care Team (Late st Contact Info) Description 02/24/2023 Refill [facility] PRIMARY CARE [address] [address] Huyen Hall MD [address] [address] Type 2 diabetes mellitus with hyperglycemia, without [...] Info) Description 08/13/2025 10:00 AM EDT Infusion [facility] OUTPATIENT ONCOLOGY [place] [address] [place] [address] 09/01/2025 11:00 AM EST Office Visit [facility] PULMONARY & CRITICAL CARE MEDICINE 3000 [facility] [address] [place] [address] 09/01/2025 11:30 AM EST Office Visit [facility] PULMONARY & CRITICAL CARE MEDICINE 3000 [facility] [address] [place] [address] Maxine Gibson, PRINCIPAL TECHNOLOGIST [address] [place] [id number] 09/02/2025 10:00 AM EST Office Visit [facility] UROLOGY [address] [place] [address] Sanam Saunders, PRINCIPAL TECHNOLOGIST 1760 [facility] [address] [place], [place] [address] 09/24/2025 9:15 AM EST Office Visit [facility] RHEUMATOLOGY [address] [address] John Sheppard, PARVIZ [address] [id number] 02/03/2026 10:45 AM EDT Office Visit [facility] RHEUMATOLOGY [address] [address] Patrice Santana, [address] [phone] documented as of this encounter Visit Diagnoses [...] as of this encounter Care Teams Patient Access Relationship Specialty Start Date End Date Reza Panchal MD [address] [place] [id number] PCP - General Family Medicine 09/30/24 documented as of this encounter
--- OUTSIDE RECORDS SUMMARY | 2025-07-22 11:56 | XMS_ITS | Encounter Summary ---
[facility] Address [address] [place] [address] Care Team Providers Care Citrus Fruit Colorer Name Role Phone Reza Panchal MD Primary Care Provider +1- [phone] Encounter Details Date Type Department Care Team (Late st Contact Info) Description 06/04/2025 Results Follow-Up [facility] RHEUMATOLOGY [address] [address] Patrice Santana DO [address] [place] [id number] Social History Tobacco Use Types Packs/Day Years Used Date Smoking Tobacco: Never Passive Smoke Exposure: Past Smokeless Tobacco: Never Comments: smokes, for 45 years Alcohol Use Standard Drinks/Week Comments No 0 (1 standard drink = 0.6 oz pur e alcohol) [facility] Utilities Answer Date Recorded In the past 12 months has [employer], gas, oil, or water [employer] threatened to shut off services in your [...] Info) Description 08/13/2025 10:00 AM EDT Infusion [facility] OUTPATIENT ONCOLOGY [place] [address] [place] [address] [facility] 110 [place] [address] 09/01/2025 11:00 AM EST Office Visit [facility] PULMONARY & CRITICAL CARE MEDICINE 3000 [facility] [address] [place] [address] 09/01/2025 11:30 AM EST Office Visit [facility] PULMONARY & CRITICAL CARE MEDICINE 3000 [facility] [address] [place] [address] Maxine Gibson, MOP MAKER 2400 [place] [address] 09/02/2025 10:00 AM EST Office Visit [facility] UROLOGY [address] [phone] Sanam Saunders, MOP MAKER [address] [address] 09/24/2025 9:15 AM EST Office Visit [facility] RHEUMATOLOGY [address] [place] [address] John Sheppard, MOP MAKER [address] [facility] 100 [place] [address] 02/03/2026 10:45 AM EDT Office Visit [facility] RHEUMATOLOGY [address] [place] [address] Patrice Santana, [address] [place] [address] documented as of this encounter Goals Goal [...] documented as of this encounter Care Teams Citrus Fruit Colorer Relationship Specialty Start Date End Date Reza Panchal MD 1210 [place] [address] PCP - General Family Medicine 09/30/24 documented as of this encounter
--- OUTSIDE RECORDS SUMMARY | 2025-07-22 11:56 | XMS_ITS | Encounter Summary ---
[facility] Address [address] [place] [address] Care Team Providers Care Resistance Machine Welder Setter Name Role Phone Reza Panchal MD Primary Care Provider +1- [phone] Reason for Visit * Reason Onset Date Comments DR SANTILLAN - CLINICAL 05/08/2025 Encounter Details Date Type Department Care Team (Late st Contact Info) Description 05/08/2025 Telephone [facility] UROLOGY 1760 [place] [address] Brennna Santillan MD [address]60 [place] [address] DR SANTILLAN - CLINICAL Social History Tobacco Use Types Packs/Day Years Used Date Smoking Tobacco: Never Passive Smoke Exposure: Past Smokeless Tobacco: Never Comments: smokes, for 45 years Alcohol Use Standard Drinks/Week Comments No 0 (1 standard drink = 0.6 oz pur e alcohol) [facility] Utilities Answer Date Recorded In the past 12 months has [employer], gas, oil, or water company threatened to [...] for Call: PATIENT RECENTLY IN [facility] WITH SEPSIS DUE TO UTI. PATIENT REQUESTING A FU WITH DR SANTILLAN. UTI URINARY SYMPTOMS STARTED AGAIN YESTERDAY. PLEASE ADVISE ON SCHEDULING. REACH OUT TO ERICA [phone] When was the patient last seen: 03-26-25 HUB AGENT UNABLE TO WARM TRANSFER. PLEASE REACH OUT ANA CRISTINA documented in this encounter Plan of Treatment Upcoming Encounters Date Type Department Care Team (Late st Contact Info) Description 08/13/2025 10:00 AM EDT Infusion [facility] OUTPATIENT ONCOLOGY [place] [address] [place] [address] 09/01/2025 11:00 AM EST Office Visit [facility] PULMONARY & CRITICAL CARE MEDICINE 3000 [facility] 240 [place] [address] 09/01/2025 11:30 AM EST Office Visit [facility] PULMONARY & CRITICAL CARE MEDICINE 3000 [facility] [address] [place] [address] Maxine Gibson, LOGGING SHOVEL OPERATOR [address] [place] [id number] 09/02/2025 10:00 AM EST Office Visit [facility] UROLOGY [address] [place] [address] Sanam Saunders, LOGGING SHOVEL OPERATOR 1760 [facility] 502 [place], [place] [address] 09/24/2025 9:15 AM EST Office Visit [facility] RHEUMATOLOGY [address] [address] John Sheppard APRN [address] [address] 02/03/2026 10:45 AM EDT Office Visit [facility] RHEUMATOLOGY [address] [address] Patrice Santana, [address] [address] documented as of this encounter [...] documented as of this encounter Care Teams Resistance Machine Welder Setter Relationship Specialty Start Date End Date Reza Panchal MD [address] [place] [address] PCP - General Family Medicine 09/30/24 documented as of this encounter
--- OUTSIDE RECORDS SUMMARY | 2025-07-22 11:56 | XMS_ITS ---
Author Name Ephraim RN, GUN FITTER, Leigh martinez Sarina Address [address] [address] Phone [phone] Organization [facility] Care Team Providers Care Highway Maintenance Crew Worker Name Role Phone Ivonne Ye Unavailable [phone] Reason for Referral Not Available Allergies, adverse [...] 50 mg Tab TAKE 1 TABLET BY [facility] ONCE DAILY IN AM WITH [...] mg Cap TAKE 1 CAPSULE BY [facility] TWICE DAILY FOR 10 DAYS 2024-08-14 [...] EVERY 12 HOURS 2024-01-03 No Data Available Ymacnqrl-Onknusznb-Adhzipai [id number] Suspension SHAKE LIQUID AND INSTILL 1 DROP [...] mplaint [facility] 7 Day Dis[place], [place] 12/25/2024 Encntr for f/u exam aft trtm t for cond oth than malig neoplmSepsis, unspecified organism [facility] 7 [facility] [place] 12/25/2024 Encntr for f/u exam aft trtm t for cond oth than malig neoplmSepsis, unspecified organism [facility] 7 Day [place] 12/25/2024 Encntr for f/u exam aft trtm t for cond oth than malig neoplmSepsis, unspecified organism [facility] 7 Day [place] 12/25/2024 Encntr for f/u exam aft trtm t for cond oth than malig neoplmSepsis, unspecified organism Telephone E/M Service; 5-10 min of Medical Discussion (Audio Only) [place], 12/27/2024 Sepsis, unspecified organism Telephone E/M Service; 5-10 min of Medical Discussion (Audio Only) [place], 12/27/2024 Sepsis, unspecified organism Vital Signs Date of Collection Vitals 2024-12-25 14:07:15 BP Diastolic - 79.0 mm[Hg]BP Systolic - 143.0 mm[Hg]Heart Rate - 92.0 /min Social History Sex Female History of Procedures Procedures Service Procedure code Service date Servicing provider Phone# Transitional Care [facility] 7 Day Disch [id number] 2024-12-25 No Data Available No Data Avail [...] 5-10 min of Medical Discussion (Audio Only) [id number] 2024-12-27 No Data Available No Data Availa [...] getting around the house wellLana Erica is POA/helper animal laboratory - she comes over and cooks meals, cleans the house, brings her to appts and the grocery store because pt gets out of breath with too much walkingPD will be a phone visit (Cannot be the following states: [place], [place], [place], [place], [place], [place], [place], [place], [place])Pt Agreed to a post discharge visit with a [facility] Provider: with Ivelisse Reed Friday, December 27, 2024 4:00pm ESTRN reinforced availability of UC provider 24/ for 30 days after discharge and encouraged CB w/ any concerns or if pt is worse in any way. Advised pt to call to reach our staff.Needs/concerns for [facility] provider to address during PD visit: 1) [...] review 2024-12-27 Type of Visit: [facility]: [facility] Date: 12/19/24Discharge diagnosis: [...]
--- OUTSIDE RECORDS SUMMARY | 2025-07-22 11:57 | XMS_ITS | Encounter Summary ---
[facility] Address [address] [place] [address] Care Team Providers Care Church Administrator Name Role Phone Reza Panchal MD Primary Care Provider +1- [phone] Encounter Details Date Type Department Care Team (Late st Contact Info) Description 01/15/2025 Results Follow-Up [facility] RHEUMATOLOGY [address] [address] Patrice Santana DO 330 [place] [id number] Social History Tobacco Use Types Packs/Day Years Used Date Smoking Tobacco: Never Passive Smoke Exposure: Past Smokeless Tobacco: Never Comments: smokes, for 45 years Alcohol Use Standard Drinks/Week Comments No 0 (1 standard drink = 0.6 oz pur e alcohol) [facility] Utilities Answer Date Recorded In the past 12 months has [employer], gas, oil, or water [employer] threatened to shut off services in your [...] training? Not on file Preferred Language Japanese 05/28/2024 PHQ-2 Answer Date Recorded Retired PHQ-9: [...] 10:00 AM EDT Infusion [facility] OUTPATIENT ONCOLOGY [place] 330 [facility] 110 [place] [address] 09/01/2025 11:00 AM EST Office Visit [facility] PULMONARY & CRITICAL CARE MEDICINE 3000 [facility] 240 [place] [address] 09/01/2025 11:30 AM EST Office Visit [facility] PULMONARY & CRITICAL CARE MEDICINE 3000 [facility] [address] [place] [address] Maxine Gibson, AUTO TRANSMISSION TECHNICIAN [address] [place] [address] 09/02/2025 10:00 AM EST Office Visit [facility] UROLOGY [address] [address] Sanam Saunders, AUTO TRANSMISSION TECHNICIAN [address] [address] 09/24/2025 9:15 AM EST Office Visit [facility] RHEUMATOLOGY [address] [place] [address] John Sheppard, AUTO TRANSMISSION TECHNICIAN 330 [facility] 100 [place], [place] [address] 02/03/2026 10:45 AM EDT Office Visit [facility] RHEUMATOLOGY [address] [place] [address] Patrice Santana, [address] [address] documented as of this encounter Goals Goal [...] documented as of this encounter Care Teams Church Administrator Relationship Specialty Start Date End Date Reza Panchal MD 1210 [place] [address] PCP - General Family Medicine 09/30/24 documented as of this encounter
--- OUTSIDE RECORDS SUMMARY | 2025-07-22 11:57 | XMS_ITS | Encounter Summary ---
Author Organization [facility] Address [address] [place] [address] Care Team Providers Care Mobile Home Technician Name Role Phone Reza Panchal MD Primary Care Provider +1- [phone] Encounter Details Date Type Department Care Team (Latest Contact Info) Description 06/03/2025 Travel Social History Tobacco Use Types Packs/Day Years Used Date Smoking Tobacco: Never Passive Smoke Exposure: Past Smokeless Tobacco: Never Comments: smokes, for 45 years Alcohol Use Standard Drinks/Week Comments No 0 (1 standard drink = 0.6 oz pur e alcohol) [facility] Utilities Answer Date Recorded In the [...] or training? Not on file Preferred Language Bhutanese 01/28/2025 PHQ-2 Answer Date Recorded Retired PHQ-9: [...] Info) Description 08/13/2025 10:00 AM EDT Infusion [facility] OUTPATIENT ONCOLOGY [place] [address] [place] [address] 09/01/2025 11:00 AM EST Office Visit [facility] PULMONARY & CRITICAL CARE MEDICINE 3000 [facility] [address] [place] [address] 09/01/2025 11:30 AM EST Office Visit [facility] PULMONARY & CRITICAL CARE MEDICINE 3000 [facility] [address] [place] [address] Maxine Gibson, MUSIC COPYIST 2400 [place] [address] 09/02/2025 10:00 AM EST Office Visit [facility] UROLOGY 1760 [facility] 502 [place] [address] Sanam Saunders, MUSIC COPYIST 1760 [facility] [address] [place], [place] [address] 09/24/2025 9:15 AM EST Office Visit [facility] RHEUMATOLOGY [address] [place] [address] John Sheppard APRN [address] [place] [address] [facility] 100 [place] [address] 02/03/2026 10:45 AM EDT Office Visit [facility] RHEUMATOLOGY [address] [place] [address] Patrice Santana DO [address] [facility] 100 [place], [place] [address] documented as of this encounter Goals Goal [...] documented as of this encounter Care Teams Mobile Home Technician Relationship Specialty Start Date End Date Reza Panchal MD [address] [place] [address] PCP - General Family Medicine 09/30/24 documented as of this encounter
--- OUTSIDE RECORDS SUMMARY | 2025-07-22 11:57 | XMS_ITS | Encounter Summary ---
Author Organization [facility] Address [address] [place] [address] Care Team Providers Care Fire Alarm Repairer Name Role Phone Reza Panchal MD Primary Care Provider +1- [phone] Encounter Details Date Type Department Care Team (Latest Contact Info) Description 05/23/2025 Travel Social History Tobacco Use Types Packs/Day Years Used Date Smoking Tobacco: Never Passive Smoke Exposure: Past Smokeless Tobacco: Never Comments: smokes, for 45 years Alcohol Use Standard Drinks/Week Comments No 0 (1 standard drink = 0.6 oz pur e alcohol) [facility] Utilities Answer Date Recorded [...] or training? Not on file Preferred Language Swazi 01/28/2025 PHQ-2 Answer Date Recorded Retired PHQ-9: [...] Info) Description 08/13/2025 10:00 AM EDT Infusion [facility] OUTPATIENT ONCOLOGY [place] [address] [place] [address] 09/01/2025 11:00 AM EST Office Visit [facility] PULMONARY & CRITICAL CARE MEDICINE 3000 [facility] [address] [place] [address] 09/01/2025 11:30 AM EST Office Visit [facility] PULMONARY & CRITICAL CARE MEDICINE 3000 [facility] [address] [place] [address] Maxine Gibson, TUNNEL KILN FIRER 2400 [place] [address] 09/02/2025 10:00 AM EST Office Visit [facility] UROLOGY 1760 [facility] 502 [place] [address] Sanam Saunders, TUNNEL KILN FIRER 1760 [facility] [address] [place], [place] [address] 09/24/2025 9:15 AM EST Office Visit [facility] RHEUMATOLOGY [address] [place] [address] John Sheppard APRN [address] [place] [address] [facility] 100 [place] [address] 02/03/2026 10:45 AM EDT Office Visit [facility] RHEUMATOLOGY [address] [place] [address] Patrice Santana DO [address] [facility] 100 [place], [place] [address] documented as of this encounter Goals Goal [...] documented as of this encounter Care Teams Fire Alarm Repairer Relationship Specialty Start Date End Date Reza Panchal MD [address] [place] [address] PCP - General Family Medicine 09/30/24 documented as of this encounter
--- OUTSIDE RECORDS SUMMARY | 2025-07-22 11:57 | XMS_ITS | Encounter Summary ---
Author Organization [facility] Address [address] [place] [address] Care Team Providers Care Head Pumper Name Role Phone Reza Panchal MD Primary Care Provider +1- [phone] Encounter Details Date Type Department Care Team [...] Info) Description 08/13/2025 10:00 AM EDT Infusion [facility] OUTPATIENT ONCOLOGY [place] [address] [place] [address] 09/01/2025 11:00 AM EST Office Visit [facility] PULMONARY & CRITICAL CARE MEDICINE 3000 [facility] [address] [place] [address] 09/01/2025 11:30 AM EST Office Visit [facility] PULMONARY & CRITICAL CARE MEDICINE 3000 [facility] [address] [place] [address] Maxine Gibson, SOLE LEVELER MACHINE 2400 [place] [address] 09/02/2025 10:00 AM EST Office Visit [facility] UROLOGY 1760 [facility] 502 [place] [address] Sanam Saunders, SOLE LEVELER MACHINE 1760 [facility] [address] [place], [place] [address] 09/24/2025 9:15 AM EST Office Visit [facility] RHEUMATOLOGY [address] [place] [address] John Sheppard APRN [address] [place] [address] [facility] 100 [place] [address] 02/03/2026 10:45 AM EDT Office Visit [facility] RHEUMATOLOGY [address] [place] [address] Patrice Santana DO [address] [facility] 100 [place], [place] [phone] documented as of this encounter Goals Goal [...] as of this encounter Care Teams Head Pumper Relationship Specialty Start Date End Date Reza Panchal MD [address] [place] [address] PCP - General Family Medicine 09/30/24 documented as of this encounter
--- OUTSIDE RECORDS SUMMARY | 2025-07-22 11:57 | XMS_ITS | Encounter Summary ---
Author Organization [facility] Address [address] [place] [address] Care Team Providers Care Composite Mechanic Name Role Phone Reza Panchal MD Primary Care Provider +1- [phone] Reason for Visit * Reason Onset Date Comments CANCEL PROCEDURE 05/28/2025 Encounter Details Date Type Department Care Team (Late st Contact Info) Description 05/28/2025 Telephone [facility] GASTROENTEROLOGY [address] [address] Ivelisse Cordon MD 1720 [place] [address] CANCEL PROCEDURE Social History Tobacco Use Types Packs/Day Years Used Date Smoking Tobacco: Never Passive Smoke Exposure: Past Smokeless Tobacco: Never Comments: smokes, for 45 years Alcohol Use Standard Drinks/Week Comments No 0 (1 standard drink = 0.6 oz pur e alcohol) [facility] Utilities Answer Date Recorded In the past 12 months has [employer], gas, oil, or water company threatened to [...] training? Not on file Preferred Language Kazakh 01/28/2025 PHQ-2 Answer Date Recorded Retired PHQ-9: [...] patient: Emergency Contact Best call back number: [phone] Chief complaint: CANCEL PROCEDURE Type of visit: EGD Requested date: NONE If rescheduling, when is the original appointment: 06/23/2025 Additional notes:PT HAD TO HAVE EGD DONE WHILE IN THE HOSPITAL. PLEASE CANCEL PROCEDURE documented in this encounter Plan of Treatment Upcoming Encounters Date Type Department Care Team (Late st Contact Info) Description 08/13/2025 10:00 AM EDT Infusion [facility] OUTPATIENT ONCOLOGY [place] [address] [place] [address] 09/01/2025 11:00 AM EST Office Visit [facility] PULMONARY & CRITICAL CARE MEDICINE 3000 [facility] [address] [place] [address] 09/01/2025 11:30 AM EST Office Visit [facility] PULMONARY & CRITICAL CARE MEDICINE 3000 [facility] [address] [place] [address] Maxine Gibson, ELECTRONICS SUPERVISOR 2400 [place] [address] 09/02/2025 10:00 AM EST Office Visit [facility] UROLOGY 1760 [facility] [address] [place] [phone] Sanam Saunders, ELECTRONICS SUPERVISOR 1760 [facility] [address] [place], [place] [address] 09/24/2025 9:15 AM EST Office Visit [facility] RHEUMATOLOGY [address] [address] John Sheppard APRN [address] [id number] 02/03/2026 10:45 AM EDT Office Visit [facility] RHEUMATOLOGY [address] [address] Patrice Santana DO [address] [address] documented as of this encounter [...] Manage My Symptoms Patient Goals No Nathalia Phealn RN Note: [...] documented as of this encounter Care Teams Composite Mechanic Relationship Specialty Start Date End Date Reza Panchal MD [facility] [place] [address] PCP - General Family Medicine 09/30/24 documented as of this encounter
--- OUTSIDE RECORDS SUMMARY | 2025-07-22 11:57 | XMS_ITS | Encounter Summary ---
Author Organization [facility] Address [address] [place] [address] Care Team Providers Care Cardiac Monitor Technician Name Role Phone Reza Panchal MD Primary Care Provider +1- [phone] Encounter Details Date Type Department Care Team (Late st Contact Info) Description 08/17/2024 Ophth Exam [facility] Pediatric[facility] [address] [place] [address] Tian Ramírez MD [address] [place] [address] Social History Tobacco Use Types Packs/Day [...] on filedocumented in this encounter Care Teams Cardiac Monitor Technician Relationship Specialty Start Date End Date Reza Panchal MD [address] [place] [address] PCP - General 08/17/24 documented as of this encounter
--- OUTSIDE RECORDS SUMMARY | 2025-07-22 11:57 | XMS_ITS | Encounter Summary ---
[facility] Address [address] [place] [address] Care Team Providers Care Insulation Worker Interior Surface Name Role Phone Reza Panchal MD Primary Care Provider +1- [phone] Reason for Visit * Reason Comments Med Refill Encounter Details Date Type Department Care Team (Late st Contact Info) Description 07/03/2023 Refill [facility] [address] [address] Huyen Hall MD [address] [address] Reactive depression; Type 2 diabetes mellitus with [...] Info) Description 08/13/2025 10:00 AM EDT Infusion [facility] OUTPATIENT ONCOLOGY [place] [address] [place] [address] [facility] 110 [place] [address] 09/01/2025 11:00 AM EST Office Visit [facility] PULMONARY & CRITICAL CARE MEDICINE 3000 [facility] 240 [place] [address] 09/01/2025 11:30 AM EST Office Visit [facility] PULMONARY & [facility]ITICAL CARE MEDICINE 3000 [facility] 240 [place] [address] Maxine Gibson, SFDC DEVELOPER [address] [place] [phone] 09/02/2025 10:00 AM EST Office Visit [facility] UROLOGY [address] [facility] 502 [place] [phone] PinoSanam Walker, SFDC DEVELOPER 1760 [facility] [address] [place], [place] [address] 09/24/2025 9:15 AM EST Office Visit [facility] RHEUMATOLOGY [address] [phone] John Sheppard, SFDC DEVELOPER [address] [id number] 02/03/2026 10:45 AM EDT Office Visit [facility] RHEUMATOLOGY [address] [address] Patrice Santana, [address] [phone] documented as of this encounter Visit Diagnoses [...] documented as of this encounter Care Teams Insulation Worker Interior Surface Relationship Specialty Start Date End Date Reza Panchal MD [address] [place] [id number] PCP - General Family Medicine 09/30/24 documented as of this encounter
--- OUTSIDE RECORDS SUMMARY | 2025-07-22 11:57 | XMS_ITS | Encounter Summary ---
[facility] Organization [facility] Address [address] [place] [address] Care Team Providers Care Frozen Foods Manager Name Role Phone Reza Panchal MD Primary Care Provider +1- [phone] Reason for Visit * Reason Comments Med Refill Encounter Details Date Type Department Care Team (Late st Contact Info) Description 02/12/2021 Refill [facility] PRIMARY CARE [address] [address] Huyen Hall MD 2039 [facility] 100 [place] [address] Gastroesophageal reflux disease, unspecified whether esophagitis present [...] Info) Description 08/13/2025 10:00 AM EDT Infusion [facility] OUTPATIENT ONCOLOGY [place] [address] [place] [address] [place] [address] 09/01/2025 11:00 AM EST Office Visit [facility] PULMONARY & CRITICAL CARE MEDICINE 3000 [facility] 240 [place] [address] 09/01/2025 11:30 AM EST Office Visit [facility] PULMONARY & CRITICAL CARE MEDICINE 3000 [facility] [place] [address] [place] [address] Maxine Gibson, EMAIL PRODUCER [address] [place] [phone] 09/02/2025 10:00 AM EST Office Visit [facility] UROLOGY [address] [facility] 502 [place] [phone] Sanam Saunders, EMAIL PRODUCER 1760 [facility] [address] [place], [place] [address] 09/24/2025 9:15 AM EST Office Visit [facility] RHEUMATOLOGY [address] [phone] John Sheppard APRN [address] [phone] 02/03/2026 10:45 AM EDT Office Visit [facility] RHEUMATOLOGY [address] [address] Patrice Santana DO [address] [phone] documented as of this encounter Visit Diagnoses [...] documented as of this encounter Care Teams Frozen Foods Manager Relationship Specialty Start Date End Date Reza Panchal MD [address] [place] [address] PCP - General Family Medicine 09/30/24 documented as of this encounter
--- OUTSIDE RECORDS SUMMARY | 2025-07-22 11:57 | XMS_ITS | Encounter Summary ---
[facility] Address [address] [place] [phone] Care Team Providers Care Lump Machine Operator Name Role Phone Reza Panchal MD Primary Care Provider +1- [phone] Encounter Details Date Type Department Care Team (Late st Contact Info) Description 06/17/2025 Results Follow-Up [facility] UROLOGY 1760 [place] [address] Sanam Saunders APRN 1760 [facility] [address] [place] [address] Social History Tobacco Use Types Packs/Day Years Used Date Smoking Tobacco: Never Passive Smoke Exposure: Past Smokeless Tobacco: Never Comments: smokes, for 45 years Alcohol Use Standard Drinks/Week Comments No 0 (1 standard drink = 0.6 oz pur e alcohol) [facility] Utilities Answer Date Recorded In the past 12 months has [employer] electric, gas, oil, or water company threatened [...] or training? Not on file Preferred Language Guatemalan 01/28/2025 PHQ-2 Answer Date Recorded Retired PHQ-9: [...] Info) Description 08/13/2025 10:00 AM EDT Infusion [facility] OUTPATIENT ONCOLOGY [place] 330 [facility] 110 [place] [phone] 09/01/2025 11:00 AM EST Office Visit [facility] PULMONARY & CRITICAL CARE MEDICINE 3000 [facility] 240 [place] [address] 09/01/2025 11:30 AM EST Office Visit [facility] PULMONARY & CRITICAL CARE MEDICINE 3000 [facility] 240 [place] [address] Maxine Gibson, FORMING MACHINE OPERATOR 2400 [place] [address] 09/02/2025 10:00 AM EST Office Visit [facility] UROLOGY [address] [address] Sanam Saunders, FORMING MACHINE OPERATOR [address] [address] 09/24/2025 9:15 AM EST Office Visit [facility] RHEUMATOLOGY [address] [place] [address] John Sheppard, FORMING MACHINE OPERATOR 330 [facility] 100 [place] [address] 02/03/2026 10:45 AM EDT Office Visit [facility] RHEUMATOLOGY [address] [place] [address] [place] [address] Patrice Santana, [place] [address] [place] [address] [place] [address] documented as of this encounter Goals Goal [...] documented as of this encounter Care Teams Lump Machine Operator Relationship Specialty Start Date End Date Reza Panchal MD On license of [facility] [place] [address] PCP - General Family Medicine 09/30/24 documented as of this encounter
--- OUTSIDE RECORDS SUMMARY | 2025-07-22 11:57 | XMS_ITS | Clinical Summary ---
Author Organization Healthcare Address [address] [place] [address] Care Team Providers Care Procurement Professional Logistics Name Role Phone Reza Panchal MD Primary Care Provider +1- [phone] Allergies Active Allergy Reactions Criticality Noted Date [...] file Insurance [employer] [place] Care Teams Procurement Professional Logistics Relationship Specialty Start Date End Date Reza Panchal MD [address] [place] [address] PCP - General 08/17/24
== END 2025-07-22 23:59 | disposition home or self-care (01) ==
LOC: RAD 11:53
PROVIDERS: PCP Family Medicine; Visit Provider Student in an Organized Health Care Education/Training Program
DX: J18.9 Pneumonia, unspecified organism (principal)
CPT/HCPCS: 71046

== ENCOUNTER 2025-08-18 07:43 | Outpatient (CLI) | payer MEDICARE, MEDICAID, SELFPAY ==
--- OUTSIDE RECORDS SUMMARY | 2017-02-08 11:08 | XMS_ITS | Encounter Summary ---
[facility] Address [address] [place] [address] Care Team Providers Care Television News Reporter Name Role Phone Lizbeth Ibarra MD Primary Care Provider Unav ailable Encounter Details Date Type Department Care Team (Late st Contact Info) Description 02/08/2017 12:08 PM EDT Hospital Encounter [facility] PULMONARY & CRITICAL CARE MEDICINE [address] [place] [phone] Social History Tobacco Use Types Packs/Day Years Used Date Smoking Tobacco: Never Passive Smoke Exposure: Past Smokeless Tobacco: Never Comments: smokes, for 45 years Alcohol Use Standard Drinks/Week Comments Never 0 (1 standard drink = 0.6 oz pur e alcohol) [facility] Utilities Answer Date Recorded In the past 12 months has [employer], gas, oil, or water [employer] threatened to shut off services in your home? No 01/11/2024 AUDIT-C Answer Date Recorded Q1: How often do you have a drink containing alcohol? Never 01/11/2024 Q2: How many drinks containi ng alcohol do you have on a typical day when you are drinking? Patient does not drink Q3: How often do you have si x or more drinks on one occasion? Never 01/11/2024 Overall Financial Resource Strain (CARDIA) Answe r Date Recorded How hard is it for you to pa y for the very basics like food, housing, medical care, and heating? Somewhat hard 09/04/2020 PHQ-2 Answer Date Recorded Retired PHQ-9: Brief Depression Severity Measure Score 14 10/05/2023 Exercise Vital Sign Answer Date Recorde d On average, how many days pe r week do you engage in moderate to strenuous exercise (like a brisk walk)? 0 days 01/11/2024 On average, how many minutes do you engage in exercise at this level? 0 min 01/11/2024 Hunger Vital Sign Answer Date Recorded Within the past 12 months, y ou worried that your food would run out before you got the money to buy more. Sometimes true Within the past 12 months, t he food you bought just didn't last and you didn't have money to get more. Sometimes true PRAPARE - Transportation Answer Date Re corded In the past 12 months, has l ack of transportation kept you from medical appointments or from getting medications? No 12/15 In the past 12 months, has l ack of transportation kept you from meetings, work, or from getting things needed for daily living? No 01/11/2024 Abuse Screen Answer Date Recorded Feels Unsafe at Home or Work/School no 07/18/2025 Feels Threatened by Someone no 12/2024 Does Anyone Try to Keep You From Having Contact with Others or Doing Things Outside Your Home? no 07/18/2025 Physical Signs of Abuse Present no 07/18/2025 Housing Stability Answer Date Recorded Current Living Arrangements apartment 05/2025 Potentially Unsafe Housing Conditions Not on maranda e 02/20/2025 Employment Answer Date Recorded Do you want help finding or keeping work or a job? I do not need or want help 05/28/2024 Disabilities Answer Date Recorded Difficulty Concentrating, Remembering or Making Decisions yes 02/20/2025 Difficulty Managing Errands Independently yes 02/20/2025 Education Answer Date Recorded Help with school or training? Not on file Preferred Language Georgian 01/28/2025 PHQ-2 Answer Date Recorded Retired PHQ-9: Brief Depression Severity Measure Score 7 05/20/2024 Comments No Sex and Gender Information Value Date Recorded Sex Assigned at Female 01/09/2025 11:01 AM EDT Legal Sex Female 12:37 PM EDT Gender Identity Not on file Sexual Orientation Not on file documented as of this encounter Functional Status * Calculated C-SSRS Risk Score (Lifetime/Recent) Answer Date of Assessment Author No Risk Indicated 07/18/2025 3:42 PM EDT Susan Burk RN * [place] Suicide Severity Rating Scale (Screener/Recent Self-Report) Question Answer Date of Assessment Author 1. Wish to be (Past 1 Month) No 07/18/2025 3:42 PM EDT Kyle Troncoso RN 2. Non-Specific Active Suici mack Thoughts (Past 1 Month) No 07/18/2025 3:42 PM EDT Abimael Troncoso RN 6. Suicidal Behavior (Lifetime) No 3:42 PM EDT Susan Troncoso, SRAVANI documented as of this encounter Plan of Treatment Upcoming Encounters Date Type Department Care Team (Late st Contact Info) Description 09/01/2025 11:00 AM EST Office Visit [facility] PULMONARY & CRITICAL CARE MEDICINE [address] [facility] [address] [place] [address] 09/01/2025 11:30 AM EST Office Visit [facility] PULMONARY & CRITICAL CARE MEDICINE [address] [facility] [address] [place] [address] Maxine Gibson, RECEIVABLE MANAGER [address] [place] [address] 09/02/2025 10:00 AM EST Office Visit [facility] UROLOGY [address] [facility] [address] [place] [address] Sanam Saunders, RECEIVABLE MANAGER 1760 [facility] [address] [place] [address] 09/24/2025 9:15 AM EST Office Visit [facility] RHEUMATOLOGY [address] [facility] [address] [place] [phone] John Sheppard RECEIVABLE MANAGER 330 [facility] 100 [place] [address] 10/15/2025 10:00 AM EST Infusion [facility] OUTPATIENT ONCOLOGY [place] [address] [place] [address] 02/03/2026 10:45 AM EDT Office Visit [facility] RHEUMATOLOGY [address] [place] [address] Patrice Santana, DO [address] [place] [address] documented as of this encounter Goals Goal Patient Goal Type Associated Problems Recent Progress Patient-Stated? Author Track and Manage My Blood Pressure Patient Goals Nathalia Kovacs RN Note: Follow Up Date - not discussed during this outreach Why is this important? You won't feel high blood pressure, but it can still hurt your blood vessels. High blood pressure can cause heart or kidney problems. It can also cause a stroke. Making lifestyle changes like losing a little weight or eating less salt will help. Checking your blood pressure at home and at different times of the day can help to control blood pressure. If the doctor prescribes medicine remember to take it the way the doctor ordered. Call the office if you cannot afford the medicine or if there are questions about it. Notes: Keep Skin Clean and Dry Patient Goals Nathalia Kovacs RN Note: Follow Up Date - clean and dry skin well Why is this important? Leaking urine (pee) can cause soreness from skin rashes and redness. This is caused by skin being exposed to urine (pee). Notes: Track and Manage My Symptoms Patient Goals No Nathalia Phelan RN Note: Follow Up Date - not discussed during this outreach Why is this important? Keeping track of your progress will help your treatment team find the right mix of medicine and therapy for you. Write in your journal every day. Day-to-day changes in depression symptoms are normal. It may be more helpful to check your progress at the end of each week instead of every day. Notes: documented as of this encounter Procedures Procedure Name Priority Date/Time Associated Diagnosis Comments XR CHEST PA AND LATERAL Routine 02/08/2017 12:18 PM EDT Chronic cough documented in this encounter Results * XR Chest PA & Lateral (02/08/2017 12:18 PM EDT) Ebony Newsome APRN IMG DIAGNOSTIC IMAGING ORDER JAG Final Result documented in this encounter Visit Diagnoses Not on filedocumented in this encounter Additional Health Concerns Infection Onset Date Last Indicated Resolved Time Human Metapneumovirus 12/13/2019 12/13/20192019 9:08 PM EDT COVID Screen (preop/placement) 10/27/2020 10/27/2020 10/27/2020 12:55 PM EST COVID (confirmed) 10/27/2020 10/27/2020 01/13/2021 8:00 AM EDT COVID (History) 10/27/2020 01/13/2021 01/25/2021 9 :08 PM EDT COVID Screen (preop/placement) 05/08/2022 05/08/2022 05/09/2022 12:27 AM EDT COVID Screen (preop/placement) 05/26/2022 08/21/2022 08/21/2022 2:38 PM EST COVID (rule out) 07/24/2023 07/24/2023 07/24/2023 8:28 AM EDT COVID Screen (preop/placement) 01/11/2024 01/11/2024 01/11/2024 2:31 AM EDT C.difficile (rule out) 01/11/2024 01/11/202401/10 11:15 AM EDT Hepatitis A 04/12/2024 04/12/2024 COVID Screen (preop/placement) 05/02/2024 05/02/2024 05/02/2024 9:15 PM EDT documented as of this encounter Care Teams Television News Reporter Relationship Specialty Start Date End Date Lizbeth Ibarra MD PCP - General 06/18/15 07/10/17 documented as of this encounter
--- OUTSIDE RECORDS SUMMARY | 2022-02-25 10:00 | XMS_ITS | Encounter Summary ---
Author Organization [facility] Address [address] [place] [address] Care Team Providers Care Rating Examiner Name Role Phone Johanna Jeffrey MD Primary Care Provider +1- [phone] Reason for Visit * Monitoring (Routine) - Closed Specialty Diagnoses / Procedures Referred By Tia t Referred To Contact Diagnoses Palpitations Dizziness Procedures Mobile Cardiac Outpatient Telemetry Cardiac Event Monitor Tiffany Maier MD [address] [place] [address] Phone: tel: fax: [facility] [address] [facility] [address] [facility] 100 [place] [address] Phone: tel: Referral ID Status Reason Start Date Expiration Date Visits Re quested Visits Authorized [id number] Closed 02/25/2022 02/25/2023 1 1 Encounter Details Date Type Department Care Team (Late st Contact Info) Description 02/25/2022 11:00 AM EDT Hospital Encounter [facility] CARDIOLOGY [address] [place] [address] Palpitations; Dizziness Social History Tobacco Use Types Packs/Day Years Used Date Smoking Tobacco: Never Passive Smoke Exposure: Past Smokeless Tobacco: Never Comments: smokes, for 45 years Alcohol Use Standard Drinks/Week Comments Never 0 (1 standard drink = 0.6 oz pur e alcohol) [facility] Utilities Answer Date Recorded In the past 12 months has th e electric, [employer], oil, or water [employer] threatened to shut off services in your [...] or training? Not on file Preferred Language Slovak 01/28/2025 PHQ-2 Answer Date Recorded Retired PHQ-9: [...] Risk Indicated 07/18/2025 3:42 PM EDT Susan Burk, SRAVANI * [place] Suicide Severity Rating Scale (Screener/Recent Self-Report) Question [...] Description 09/01/2025 11:00 AM EST Office Visit [facility] PULMONARY & CRITICAL CARE MEDICINE [address] [facility] [address] [place] [address] 09/01/2025 11:30 AM EST Office Visit [facility] PULMONARY & [facility]ITICAL CARE MEDICINE [address] [facility] [address] [place] [address] Maxine Gibson, SALESPERSON [employer] [address] [place] [address] 09/02/2025 10:00 AM EST Office Visit [facility] UROLOGY [address] [facility] [address] [place] [address] Sanam Saunders, PARVIZ [address] [facility] [address] [place], [place] [address] 09/24/2025 9:15 AM EST Office Visit [facility] RHEUMATOLOGY [address] [place] [address] John Sheppard, SALESPERSON [employer] [address] [place], [place] [address] 10/15/2025 10:00 AM EST Infusion [facility] OUTPATIENT ONCOLOGY [place] 330 [facility] 110 [place] [address] 02/03/2026 10:45 AM EDT Office Visit [facility] RHEUMATOLOGY [address] [place] [address] Patrice Santana, [address] [facility] 100 [place], [place] [id number] documented as of this encounter Goals Goal [...] Skin Clean and Dry Patient Goals No Watson, Nathalia, RN Note: Follow Up Date - clean [...] Procedure Name Priority Date/Time Associated Diagnosis Comments MOBILE CARDIAC OUTPATIENT TELEMETRY Routine 02/25/2022 7:55 AM EDT Palpitations Dizziness documented in this encounter Results * Mobile Cardiac Outpatient Telemetry (02/25/2022 7:55 AM EDT) Target HR (85%) 133 bpm Max. Pred. HR (100%) 156 bpm Anatomical Region Laterality Modality Other Narrative 03/21/2022 11:49 AM EDT A relatively benign monitor study. 1. The predominant rhythm is normal sinus rhythm with average heart rate of 83 bpm, with episodes of sinus bradycardia to 48 bpm at 5:30 AM, and sinus tachycardia to 152 bpm at 5:30 PM. 2. Rare premature atrial complexes. 3. No significant ST changes. Study Description Monitor placed on patient on 02/25/2022 . The monitor was scanned on 03/21/2022. The patient was monitored for 17 days 21 hours and 51 minutes. Total beats: [id number]. Average HR: 83. Min HR: 48. Max HR: 152. Study Findings Patient diary was not submitted. Premature atrial contractions occured rarely. There was no evidence of atrial arrhythmias. Premature ventricular contractions did not appear during monitoring. There were no episodes of ventricular tachycardia. No atrioventricular block noted. Study Impressions A relatively benign monitor study. us Tiffany Maier MD CV CARDIAC SERVICES ORDERABLES F inal Result documented in this encounter Visit Diagnoses Diagnosis Palpitations Dizziness Dizziness and giddiness documented in this encounter Additional Health Concerns Infection Onset Date Last Indicated Resolved Time COVID Screen (preop/placement) 05/08/2022 05/08/2022 05/09/2022 12:27 [...] documented as of this encounter Care Teams Rating Examiner Relationship Specialty Start Date End Date Johanna Jeffrey MD [address] [address] PCP - General Internal Medicine 10/20/21 08/20/22 documented as of this encounter
--- OUTSIDE RECORDS SUMMARY | 2024-04-23 18:45 | XMS_ITS | Encounter Summary ---
[facility] Organization [facility] Address [address] [place] [address] Care Team Providers Care Prep Manager Name Role Phone Rafael Pal MD, Huyen Primary Care Provider [phone] Reason for Referral * Hospital - Outpatient (Routine) - Closed Specialty Diagnoses / Procedures Referred By Tia holman Referred To Contact Sleep Medicine Diagnoses Dementia, unspecified dementia severity, unspecified dementia type, unspecified whether behavioral, psychotic, or mood disturbance or anxiety Essential hypertension Palpitations Suspected sleep apnea Excessive daytime sleepiness Snoring Nightmares Morning headache Psychophysiological insomnia Procedures Polysomnography 4 or More Parameters Ijeoma Payne APRN [address] [place] [address] Phone: tel: fax: [facility] [address] [address] Phone: tel: fax: Referral ID Status Reason Start Date Expiration Date Visits Re quested Visits Authorized [id number] Closed 12/19/2023 12/18/2024 1 1 Reason for Visit * Hospital - Outpatient (Routine) - Closed Specialty Diagnoses / Procedures Referred By Tia holman Referred To Contact Sleep Medicine Diagnoses Dementia, unspecified dementia severity, unspecified dementia type, unspecified whether behavioral, psychotic, or mood disturbance or anxiety Essential hypertension Palpitations Suspected sleep apnea Excessive daytime sleepiness Snoring Nightmares Morning headache Psychophysiological insomnia Procedures Polysomnography 4 or More Parameters Ijeoma Payne, PARVIZ [address] [facility] [address] Phone: tel: fax: [facility] [address] [address] Phone: tel: fax: Referral ID Status Reason Start Date Expiration Date Visits Re quested Visits Authorized [id number] Closed 12/19/2023 12/18/2024 1 1 Encounter Details Date Type Department Care Team (Late st Contact Info) Description 04/23/2024 7:45 PM EDT Hospital Encounter [facility] [address] [place] [address] Ijeoma Payne, PARVIZ [address] [place] [address] Dementia, unspecified dementia severity, unspecified dementia type, unspecified whether behavioral, psychotic, or mood disturbance or anxiety; Essential hypertension; Palpitations; Suspected sleep apnea; Excessive daytime sleepiness; Snoring; Nightmares; Morning headache; Psychophysiologica l insomnia Social History Tobacco Use Types Packs/Day Years Used Date Smoking Tobacco: Never Passive Smoke Exposure: Past Smokeless Tobacco: Never Comments: smokes, for 45 years Alcohol Use Standard Drinks/Week Comments Never 0 (1 standard drink = 0.6 oz pur e alcohol) [facility] Utilities Answer Date Recorded In the past 12 months has [employer], gas, oil, or water [employer] threatened to shut off services in your [...] or training? Not on file Preferred Language Malay 01/28/2025 PHQ-2 Answer Date Recorded Retired PHQ-9: Brief Depression Severity Measure Score 7 05/20/2024 Comments No Sex and Gender Information Value Date Recorded Sex Assigned at Female 01/09/2025 11:01 AM EDT Legal Sex Female 12:37 PM EDT Gender Identity Not on file Sexual Orientation Not on file documented as of this encounter Last Filed Vital Signs Vital Sign Reading Time Taken Comments Blood Pressure - - Pulse - - Temperature - - Respiratory Rate - - Oxygen Saturation - - Inhaled Oxygen Concentration - - Weight 81.6 kg (179 lb 14.3 oz) 04/23/2024 7:53 PM EDT Height 152.4 cm (5') 04/23/2024 7:53 PM EDT Body Mass Index 35.13 04/23/2024 7:53 PM EDT documented in this encounter Functional Status * Calculated C-SSRS Risk Score (Lifetime/Recent) Answer Date of Assessment Author No Risk Indicated 07/18/2025 3:42 PM EDT Susan Burk RN * [place] Suicide Severity Rating Scale (Screener/Recent Self-Report) Question [...] Description 09/01/2025 11:00 AM EST Office Visit [facility] PULMONARY & CRITICAL CARE MEDICINE 3000 [facility] [address] [place] [address] 09/01/2025 11:30 AM EST Office Visit [facility] PULMONARY & CRITICAL CARE MEDICINE 3000 [facility] [place] [address] Maxine Gibson, FINANCIAL ANALYSIS CONSULTANT [address] [place] [address] 09/02/2025 10:00 AM EST Office Visit [facility] UROLOGY 1760 [facility] [address] [place], [place] [id number] Sanam Saunders APRN 1760 [facility] [address] [place], [place] [address] 09/24/2025 9:15 AM EST Office Visit [facility] RHEUMATOLOGY [address] [place] [address] John Sheppard, PARVIZ [address] [place], [place] [address] 10/15/2025 10:00 AM EST Infusion [facility] OUTPATIENT ONCOLOGY [place] [address] [place] [address] 02/03/2026 10:45 AM EDT Office Visit [facility] RHEUMATOLOGY [address] [place] [address] Patrice Santana, [address] [facility] [address] [place], [place] [id number] documented as of this encounter Goals Goal [...] Procedure Name Priority Date/Time Associated Diagnosis Comments SCANNED - TELEMETRY 07/18/2025 7 :24 PM EDT NPSG Routine 04/24/2024 5:23 AM EDT Dementia, unspecified dementia severity, unspecified dementia type, unspecified whether behavioral, psychotic, or mood disturbance or anxiety Essential hypertension Palpitations Suspected sleep apnea Excessive daytime sleepiness Snoring Nightmares Morning headache Psychophysiological insomnia documented in this encounter Results * Telemetry Scan (07/18/2025 7:24 PM EDT) [facility] ORDERABLES Final Result * NPSG (04/24/2024 5:23 AM EDT) Impressions SLEEP MEDICINE - 05/02/2024 3:11 PM EDT 1. Moderate obstructive sleep apnea. 2. Nocturnal hypoxemia. 3. Snoring. RECOMMENDATIONS: 1. Patient met criteria for moderate obstructive sleep apnea based on this study. Patient had reduced sleep efficiency and slightly reduced REM sleep. Consider auto CPAP trial with CPAP pressures of 4-20 cmH2O and monitor closely with CPAP download. 2. Discuss good sleep hygiene habits, including but not limited to fixed wake up and sleep time, avoid alcohol 4 hours before sleep and not driving while drowsy. I have conducted an epoch by epoch review of the raw data and agree with the interpretation. Braden To MD, [facility] Pulmonary Critical care and Sleep medicine Narrative SLEEP MEDICINE - 05/02/2024 3:11 PM EDT PATIENT NAME: Madison Castellanos : 1955; Age: 68 y.o. OVERNIGHT POLYSOMNOGRAM DATE OF STUDY: 2023. REQUESTING PHYSICIAN: Ijeoma Payne REASON FOR STUDY: Somnolence STUDY METHODOLOGY: This is a fully attended overnight polysomnogram performed using multichannel recording format. STUDY INTERPRETATION: 1. Sleep architecture: Patient spent a total of 297.5 minutes sleeping with 76.1% sleep efficiency. Patient spent 3.2% in N1, 73.1% in N2, 9.6% in N3, and 14.1% stage REM. Arousal index was abnormal at 7.5, suggesting sleep fragmentation. 2. Respiratory data: Review of respiratory waveform showed that patient had obstructive Hypopneas and apneas noted during the study with combined AHI of 20.2, Suggesting moderate obstructive sleep apnea. Supine AHI 20.2. 3. Oxygenation data: Lowest O2 saturation noted was 79% with sleep disordered Breathing. Pt spent 21.9 minute time below 89% saturation. 4. Periodic Limb movement data: PLMs noted with index of 2 with arousal index of 0.2 5. Cardiac data: Heart rate ranging from 61 to 110, appears regular rhythm. No Malignant arrhythmia noted. 6. Snoring: Grade 1 . 7. Daniel Stoke respirations: None. 8. Bruxism: None. Ijeoma Payne [facility] SLEEP CENTER ORDERABLES [facility] al Result SLEEP MEDICINE documented in this encounter Visit Diagnoses Diagnosis Dementia, unspecified dementia severity, unspecified dementia type, unspecified whether behavioral, psychotic, or mood disturbance or anxiety Essential hypertension Unspecified essential hypertension Palpitations Suspected sleep apnea Excessive daytime sleepiness Snoring Other dyspnea and respiratory abnormality Nightmares Other dysfunctions of sleep stages or arousal from sleep Morning headache Psychophysiological insomnia Persistent disorder of initiating or maintaining sleep documented in this encounter Additional Health Concerns Infection Onset Date Last Indicated Resolved Time Hepatitis A 04/12/2024 04/12/2024 COVID Screen (preop/placement) 05/02/2024 05/02/2024 05/02/2024 9:15 PM EDT Assessment Noted Time PHQ-2 Depression Total Score: 1 04/22/20 8:00 AM EDT documented as of this encounter Care Teams Prep Manager Relationship Specialty Start Date End Date Huyen Hall MD [address] [facility] 100 [place] [address] PCP - General Family Medicine 08/21/22 07/25/24 documented as of this encounter
--- OUTSIDE RECORDS SUMMARY | 2025-07-08 08:05 | XMS_ITS | Encounter Summary ---
[facility] Address [address] [place] [address] Care Team Providers Care Ferryboat Operator Cable Name Role Phone Reza Panchal MD Primary Care Provider [phone]- [phone] Encounter Details Date Type Department Care Team (Late st Contact Info) Description 07/08/2025 9:05 AM EDT Lab [facility] [place] [address] [place] [address] Seropositive rheumatoid arthritis; High risk medication use; Fatigue, unspecified type Social History Tobacco Use Types Packs/Day Years Used Date Smoking Tobacco: Never Passive Smoke Exposure: Past Smokeless Tobacco: Never Comments: smokes, for 45 years Alcohol Use Standard Drinks/Week Comments No 0 (1 standard drink = 0.6 oz pur e alcohol) [facility] Utilities Answer Date Recorded In the past 12 months has [employer], gas, oil, or water [employer] threatened to shut off services in [...] Description 09/01/2025 11:00 AM EST Office Visit [facility] PULMONARY & CRITICAL CARE MEDICINE [address] [facility] [address] [place] [address] 09/01/2025 11:30 AM EST Office Visit [facility] PULMONARY & CRITICAL CARE MEDICINE [address] [facility] [address] [place] [address] Maxine Gibson, WEBSITE DESIGNER [address] [place] [address] 09/02/2025 10:00 AM EST Office Visit [facility] UROLOGY [address] [facility] [address] [place] [address] Sanam Saunders, WEBSITE DESIGNER [address] [facility] [address] [place] [address] 09/24/2025 9:15 AM EST Office Visit [facility] RHEUMATOLOGY [address] [facility] [address] [place] [address] John Sheppard, WEBSITE DESIGNER [address] [facility] [address] [place] [address] 10/15/2025 10:00 AM EST Infusion [facility] OUTPATIENT ONCOLOGY [place] [address] [facility] [address] [place] [address] 02/03/2026 10:45 AM EDT Office Visit [facility] RHEUMATOLOGY [address] [place] [address] Patrice Santana DO [address] [facility] [address] [place] [address] documented as of this encounter Goals Goal [...] Name Priority Date/Time Associated Diagnosis Comments CBC WITH AUTO DIFFERENTIAL Routine 07/08/2025 9:03 AM EDT Seropositive rheumatoid arthritis High risk medication use HEPATITIS PANEL, ACUTE Routine 9:03 AM EDT Seropositive rheumatoid arthritis High risk medication use Fatigue, unspecified type SEDIMENTATION RATE Routine 07/08/2025 9: 03 AM EDT Seropositive rheumatoid arthritis High risk medication use CBC AND DIFFERENTIAL Routine 07/08/2025 9:03 AM EDT Seropositive rheumatoid arthritis High risk medication use C-REACTIVE PROTEIN Routine 07/08/2025 9: 03 AM EDT Seropositive rheumatoid arthritis High risk medication use COMPREHENSIVE METABOLIC PANEL Routine 07/08/2025 9:03 AM EDT Seropositive rheumatoid arthritis High risk medication use documented in this encounter Results * (ABNORMAL) CBC Auto Differential (07/08/2025 9:03 AM EDT) [facility] WBC 7.14 3.40 - 10.80 10*3/mm3 07/08/2025 2:34 PM EDT [facility] RBC 3.74(L) 3.77 - 5.28 10*6/mm3 07/08/2025 2:34 PM EDT [facility] Hemoglobin 10.7(L) 12.0 - 15.9 g/dL 07/08/2025 2:34 PM EDT [facility] Hematocrit 34.2 34.0 - 46.6 % 07/08/2025 2:34 PM EDT [facility] MCV 91.4 79.0 - 97.0 fL 07/08/2025 2:34 PM EDT [facility] MCH 28.6 26.6 - 33.0 pg 07/08/2025 2:34 PM EDT [facility] MCHC 31.3(L) 31.5 - 35.7 g/dL 07/08/2025 2:34 PM EDT [facility] RDW 12.7 12.3 - 15.4 % 07/08/2025 2:34 PM EDT [facility] RDW-SD 42.3 37.0 - 54.0 fl 07/08/2025 2:34 PM EDT [facility] MPV 10.2 6.0 - 12.0 fL 07/08/2025 2:34 PM EDT [facility] Platelets 255 140 - 450 10*3/mm3 07/08/2025 2:34 PM EDT [facility] Neutrophil % 49.5 42.7 - 76.0 % 07/08/2025 2:34 PM T [facility] Lymphocyte % 31.8 19.6 - 45.3 % 07/08/2025 2:34 PM EDT [facility] Monocyte % 14.6(H) 5.0 - 12.0 % 07/08/2025 2:34 PM T [facility] Eosinophil % 3.1 0.3 - 6.2 % 07/08/2025 2:34 PM T [facility] Basophil % 0.4 0.0 - 1.5 % 07/08/2025 2:34 PM T [facility] Immature Grans % 0.6(H) 0.0 - 0.5 % 07/08/2025 2:34 PM [facility] Neutrophils, Absolute 3.54 1.70 - 7.00 10*3/mm3 07/08/2025 2:34 PM T [facility] Lymphocytes, Absolute 2.27 0.70 - 3.10 10*3/mm3 07/08/2025 2:34 PM [facility] Monocytes, Absolute 1.04(H) 0.10 - 0.90 10*3/mm3 07/08/2025 2:34 PM T [facility] Eosinophils, Absolute 0.22 0.00 - 0.40 10*3/mm3 07/08/2025 2:34 PM T [facility] Basophils, Absolute 0.03 0.00 - 0.20 10*3/mm3 07/08/2025 2:34 PM [facility] Immature Grans, Absolute 0.04 0.00 - 0.05 10*3/mm3 07/08/2025 2:34 PM T [facility] nRBC 0.0 0.0 - 0.2 /100 WBC 07/08/2025 2:34 PM [facility] Blood Venipuncture / Unknown 07/08/2025 9:03 AM EDT 07/08/2025 9:03 AM EDT John Sheppard WEBSITE DESIGNER LAB BLOOD ORDERABLES F inal Result [facility]
[address] [place] [address], * Hepatitis Panel, Acute (07/08/2025 9:03 AM EDT) Hepatitis B Surface Ag Non-Reacti ve Non-Reacti ve 07/08/2025 3:12 PM EDT [facility] Hep A IgM Non-Reacti ve Non-Reacti ve 07/08/2025 3:12 PM EDT [facility] Hep B C IgM Non-Reacti ve Non-Reacti ve 07/08/2025 3:12 PM EDT [facility] Hepatitis C Ab Non-Reacti ve Non-Reacti ve 07/08/2025 3:12 PM EDT [facility] Blood Venipuncture / Unknown 07/08/2025 9:03 AM EDT 07/08/2025 9:03 AM EDT Narrative [facility] - 07/08/2025 3:12 PM EDT Results may be falsely decreased if patient taking Biotin. John Sheppard WEBSITE DESIGNER LAB BLOOD ORDERABLES F inal Result [facility]
[address] [place] [address], * Sedimentation Rate (07/08/2025 9:03 AM EDT) Sed Rate 28 0 - 30 mm/hr 07/08/2025 2:36 PM EDT [facility] Blood Venipuncture / Unknown 07/08/2025 9:03 AM EDT 07/08/2025 9:03 AM EDT John Sheppard WEBSITE DESIGNER LAB BLOOD ORDERABLES F inal Result Performing Organization Address City/[facility]/ZIP Co de Phone Number [facility]
[address] [place] [address], * C-reactive Protein (07/08/2025 9:03 AM EDT) Pathologist [facility] C-Reactive Protein 0.30 0.00 - 0.50 mg/dL 07/08/2025 2:56 PM EDT [facility] Blood Venipuncture / Unknown 07/08/2025 9:03 AM EDT 07/08/2025 9:03 AM EDT John Sheppard APRN LAB BLOOD ORDERABLES F inal Result Performing Organization Address [facility] Co de Phone Number [facility]
[address] [place] [address], * (ABNORMAL) Comprehensive Metabolic Panel (07/08/2025 9:03 AM EDT) Pathologist [facility] Glucose 194(H) 65 - 99 mg/dL 07/08/2025 2:56 PM EDT [facility] BUN 12.0 8.0 - 23.0 mg/dL 07/08/2025 2:56 PM EDT [facility] Creatinine 0.74 0.57 - 1.00 mg/dL 07/08/2025 2:56 PM EDT [facility] Sodium 138 136 - 145 mmol/L 07/08/2025 2:56 PM EDT [facility] Potassium 4.0 3.5 - 5.2 mmol/L 07/08/2025 2:56 PM EDT [facility] Chloride 100 98 - 107 mmol/L 07/08/2025 2:56 PM EDT [facility] CO2 22.7 22.0 - 29.0 mmol/L 07/08/2025 2:56 PM EDT [facility] Calcium 9.1 8.6 - 10.5 mg/dL 07/08/2025 2:56 PM EDT [facility] Total Protein 7.4 6.0 - 8.5 g/dL 07/08/2025 2:56 PM T [facility] Albumin 3.9 3.5 - 5.2 g/dL 07/08/2025 2:56 PM [facility] ALT (SGPT) 18 1 - 33 U/L 07/08/2025 2:56 PM T [facility] AST (SGOT) 17 1 - 32 U/L 07/08/2025 2:56 PM T [facility] Alkaline Phosphatase 101 39 - 117 U/L 07/08/2025 2:56 PM T [facility] Total Bilirubin 0.2 0.0 - 1.2 mg/dL 07/08/2025 2:56 PM [facility] Globulin 3.5 gm/dL 07/08/2025 2:56 PM [facility] A/G Ratio 1.1 g/dL 07/08/2025 2:56 PM [facility] BUN/Creatinine Ratio 16.2 7.0 - 25.0 07/08/2025 2:56 PM [facility] Anion Gap 15.3(H) 5.0 - 15.0 mmol/L 07/08/2025 2:56 PM [facility] eGFR 88.3 >60.0 mL/min/1.7 3 07/08/2025 2:56 PM [facility] Blood Venipuncture / Unknown 07/08/2025 9:03 AM EDT 07/08/2025 9:03 AM T [facility] - 07/08/2025 2:56 PM EDT [...] race as a factor us John Sheppard WEBSITE DESIGNER LAB BLOOD ORDERABLES F inal Result [facility]
[address] [place] [address], documented in this encounter Visit Diagnoses Diagnosis Seropositive rheumatoid arthritis High risk medication use Fatigue, unspecified type documented in this encounter Additional Health Concerns Infection Onset Date Last Indicated Resolved Time Hepatitis A 04/12/2024 04/12/2024 Assessment Noted Time PHQ-2 Depression Total Score: 1 05/20/20 24 11:00 AM EDT documented as of this encounter Care Teams Ferryboat Operator Cable Relationship Specialty Start Date End Date Reza Panchal MD [address] [place] [address] PCP - General Family Medicine 09/30/24 documented as of this encounter
--- OUTSIDE RECORDS SUMMARY | 2025-07-09 08:00 | XMS_ITS | Encounter Summary ---
[facility] Address [address] [place] [address] Care Team Providers Care Negative Spotter Name Role Phone Reza Panchal MD Primary Care Provider +1- [phone] Reason for Visit * Infusion (Routine) - Closed Specialty Diagnoses / Procedures Referred By Tia t Referred To Contact Oncology Diagnoses Age-related osteoporosis without current pathological fracture Procedures AK OFFICE/OUTPATIENT NEW MODERATE MDM 45 MINUTES John Sheppard APRN [address] [place] [address] Phone: tel: fax: [facility] OUTPATIENT ONCOL[facility] [place] [address] [place] [address] Phone: tel: fax: Referral ID Status Reason Start Date Expiration Date V isits Requested Visits Authorized [id number] Closed Specialty Services Required 06/05/2025 09/04/2026 1 1 Encounter Details Date Type Department Care Team (Late st Contact Info) Description 07/09/2025 9:00 AM EDT Infusion [facility] [place] [address] [place] [address] Age-related osteoporosis without current pathological fracture (Primary Dx) Social History Tobacco Use Types Packs/Day Years Used Date Smoking Tobacco: Never Passive Smoke Exposure: Past Smokeless Tobacco: Never Comments: smokes, for 45 years Alcohol Use Standard Drinks/Week Comments No 0 (1 standard drink = 0.6 oz pur e alcohol) [facility] Utilities Answer Date Recorded In [...] Sign Reading Time Taken Comments Blood Pressure 130/64 07/09/2025 9:06 AM EDT Pulse 90 07/09/2025 9:06 AM EDT Temperature 36.4 C (97.6 F) 07/09/2025 9:06 AM EDT Respiratory Rate 18 07/09/2025 9:06 AM EDT Oxygen Saturation 95% 07/09/2025 9:06 AM EDT Inhaled Oxygen Concentration - - Weight 91.9 kg (202 lb 9.6 oz) 07/09/2025 9:06 A M EDT Height 152.4 cm (5') 07/09/2025 9:06 AM EDT Body Mass Index 39.57 07/09/2025 9:06 AM EDT documented in this encounter Plan of Treatment Upcoming Encounters Date Type Department Care Team (Late st Contact Info) Description 09/01/2025 11:00 AM EST Office Visit [facility] PULMONARY & CRITICAL CARE MEDICINE [address] [facility] [address] [place] [address] 09/01/2025 11:30 AM EST Office Visit [facility] PULMONARY & CRITICAL CARE MEDICINE [address] [facility] [address] [place] [address] Maxine Gibson, HEATING AND COOLING SYSTEMS ENGINEER [address] [place] [address] 09/02/2025 10:00 AM EST Office Visit [facility] UROLOGY [address] [place] [address] ArtFaheemGiuSanam, HEATING AND COOLING SYSTEMS ENGINEER [address] [facility] [address] [place], [place] [id number] 09/24/2025 9:15 AM EST Office Visit [facility] RHEUMATOLOGY [address] [place] [phone] John Sheppard, HEATING AND COOLING SYSTEMS ENGINEER [address] [place] [address] 10/15/2025 10:00 AM EST Infusion [facility] OUTPATIENT ONCOLOGY [place] [address] [place] [phone] 02/03/2026 10:45 AM EDT Office Visit [facility] [address] [place] [phone] Patrice Santana, [address] [facility] [address] [place] [address] documented as of this encounter Goals Goal [...] as of this encounter Visit Diagnoses Diagnosis Age-related osteoporosis without current pathological fracture- Primary documented in this encounter Administered Medications Inactive Administered Medications - up to 3 most recent administrations Medication Order MAR Action Action Date Dose Rate Site acetaminophen (TYLENOL) tablet 650 mg 650 mg, Oral, Once, On Mon07/09/25 at 0930, For 1 dose, If given for fever, use fever parameter: fever greater than 100.4 F Based on patient request - if ordered [...] Pain = Pain Score of 7-10, CPOT 5-8Indications:Age-related osteoporosis without current pathological fracture Given 07/09/2025 9:30 AM EDT 650 mg sodium chloride 0.9 % infusion 20 mL/hr, Intravenous, Once, On Mon07/09/25 at 1015, For 1 doseIndications:Age-related osteoporosis without current pathological fracture New Bag 07/09/2025 9:30 AM EDT 20 mL/hr 20 mL/hr zoledronic acid (RECLAST) infusion 5 mg 5 mg, Intravenous, at 400 mL/hr, Administer over 15 Minutes, Once, On Mon07/09/25 at 1030, For 1 dose, Group 2 ([place]) Hazardous Drug - Reproductive Risk Only - See Handling GuideIndications:Age-related osteoporosis without current pathological fracture New Bag 07/09/2025 10:03 AM EDT 5 mg 400 mL/hr documented in this encounter Additional Health Concerns Infection Onset Date Last Indicated Resolved Time Hepatitis A 04/12/2024 04/12/2024 Assessment Noted Time PHQ-2 Depression Total Score: 1 05/20/20 24 11:00 AM EDT documented as of this encounter Care Teams Negative Spotter Relationship Specialty Start Date End Date Reza Panchal MD [facility] [place] [address] PCP - General Family Medicine 09/30/24 documented as of this encounter
--- OUTSIDE RECORDS SUMMARY | 2025-07-18 14:43 | XMS_ITS | Encounter Summary ---
Author Organization 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 EM[facility] [address] [address] Crow Cunha MD [address] [place] [id number] Justin Troy MD [address] [place] [id number] Left flank pain (Primary Dx); Left sided abdominal pain Discharge Disposition: Home or Self Care Social History Tobacco Use Types Packs/Day Years Used Date Smoking Tobacco: Never Passive Smoke Exposure: Past Smokeless Tobacco: Never Comments: smokes, for 45 years Alcohol Use Standard Drinks/Week Comments No 0 (1 standard drink = 0.6 oz pur e alcohol) [facility] Utilities Answer Date Recorded In the past 12 months has [employer], gas, oil, or water [employer] threatened to shut off services in your [...] or training? Not on file Preferred Language Norwegian 01/28/2025 PHQ-2 Answer Date Recorded Retired PHQ-9: [...] Sign Reading Time Taken Comments Blood Pressure 133/67 07/18/2025 8:30 PM EDT Pulse 78 07/18/2025 8:30 PM EDT Temperature 36.8 C (98.3 F) 07/18/2025 3:41 PM EDT Respiratory Rate 20 07/18/2025 3:41 PM EDT Oxygen Saturation 99% 07/18/2025 8:30 PM EDT Inhaled Oxygen Concentration - - Weight 91.2 kg (201 lb) 07/18/2025 3:41 PM EDT Height 152.4 cm (5') 07/18/2025 3:41 PM EDT Body Mass Index 39.26 07/18/2025 3:41 PM EDT documented in this encounter Functional Status * Calculated C-SSRS Risk Score (Lifetime/Recent) Answer Date of Assessment Author No Risk Indicated 07/18/2025 3:42 PM EDT Susan Burk RN * [place] Suicide Severity Rating Scale (Screener/Recent Self-Report) Question Answer Date of Assessment Author 1. Wish to be (Past 1 Month) No 07/18/2025 3:42 PM EDT Kyle Troncoso RN 2. Non-Specific Active Suici mack Thoughts (Past 1 Month) No 07/18/2025 3:42 PM EDT Abimael Troncoso RN 6. Suicidal Behavior (Lifetime) No 3:42 PM EDT Susan Troncoso RN documented as of this encounter Discharge Instructions * Discharge Instructions* Nomi Cisneros PA-C - 07/18/2025 8:37 PM EDT You are seen in the emergency department for flank pain and abdominal pain. Please continue to takethe antibiotic that was prescribed by [facility] emergency department to help treat your symptoms. In addition please follow-up with your primary care physician as well as your kidney doctor at your reviously scheduled appointment for Monday. Return to the emergency department upon any worsening symptoms including but not limited to fever, vomiting or worsening of pain. * Attachments The following attachments cannot be sent through Care Everywhere. * Flank Pain Adult (Norwegian) * Abdominal Pain Adult (Norwegian) documented in this encounter Medications at Time [...] FOUR TIMES DAILY NEEDED FOR NERVES 05/11/2022 ketorolac (TORADOL) 10 MG tablet Take 1 tablet by mouth Every 6 (Six) Hours As Needed. 07/18/2025 Lancets 30G miscIndications:Typ e 2 diabetes mellitus with retinopathy, without long-term current use of insulin, macular edema presence unspecified, unspecified laterality, unspecified retinopathy severity Use to check blood sugar daily. ED 11.319 100 each 4 05/13/2024 levoFLOXacin (LEVAQUIN) 750 MG tablet Take 1 tablet by mouth Daily. 07/17/2025 levothyroxine (SYNTHROID, LEVOTHROID) 75 MCG tabletIndications:A cquired [...] minutes. 25 tablet 5 01/03/2024 nystatin (MYCOSTATIN) 797184 UNIT/GM powderIndications:Y east dermatitis,Perineal irritation in female [...] (Four) Times a Day. 360 tablet 05/02/2024 triamterene-hydroch lorothiazide (DYAZIDE) 37.5-25 MG per capsule Take 1 capsule by mouth Daily. 06/10/2025 vitamin B-12 (CYANOCOBALAMIN) 500 MCG tablet Take 1 tablet by mouth Daily. vitamin C (ASCORBIC ACID) 250 MG tablet Take 2 tablets by mouth Daily. alendronate (FOSAMAX) 70 MG tablet Take 1 tablet by mouth Every 7 (Seven) Days. 4 tablet 6 06/05/2025 07/21/20 25 chlorthalidone (HYGROTON) 25 MG tablet 03/25/2025 [...] Needed for Mild Pain. 30 tablet 5 06/05/2025 07/21/20 25 Vonoprazan Fumarate (VOQUEZNA) 10 MG tablet Take 1 tablet by mouth Daily. 30 tablet 11 05/12/2025 07/21/20 25 documented as of this encounter Miscellaneous Notes * [facility] Provider Note - Nomi Cisneros PA-C - 07/18/2025 4:10 PM EDT Images from the original note were not included. Subjective History of Present Illness: 62-year-old female with a history of rheumatoid arthritis, COPD and type 2 diabetes presenting to the emergency department with left flank pain and left abdominal pain x 5 days. Patient states that this pain began gradually 5 days ago and reports that it is worsened. She describes it as both a dulland stabbing pain that has been constant. She states that there is nothing that makes her pain better or worse. Patient states that she was seen at [facility] 3 [place] to [place] was diagnosed with a kidney infection, urinary tract infection and pneumonia. She reports that she received a contrast CT there was given Toradol and discharged on antibiotics. Patient states that she does not feel like that enough was done at that hospital and states that she does not feel anybetter which prompted her to come here to [facility]. At this time she is complaining of left flank pain, left abdominal pain and nausea. She reports having Toradol given to her today but takingno other medications stopped her symptoms. She denies chest pain, shortness of breath, vomiting, hea dache, fevers, congestion or cough. Nurses Notes reviewed and agree, including vitals, allergies, social history and prior medical history. REVIEW OF SYSTEMS: All systems reviewed and not pertinent unless noted. Review of Systems Gastrointestinal: Positive for abdominal pain, diarrhea and nausea. Genitourinary: Left flank pain All other systems reviewed and are negative. Past 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: Diagnosis Date Acute deep [...] in december 2024 from UTI Wears glasses Allergies: Abilify [aripiprazole], Morphine, Oxycodone, Codeine, Donepezil, Hydrocodone- acetaminophen, Imdur [isosorbide dinitrate], and Metformin Past Surgical History: Procedure Laterality Date CARDIAC [...] MD, 05/21/2011 REPLACEMENT TOTAL KNEE Left 06/15/2022 [facility] SPINAL CORD STIMULATOR IMPLANT 02/2021 SPINAL CORD STIMULATOR REMOVAL TUBAL ABDOMINAL LIGATION UMBILICAL HERNIA REPAIR VENTRAL HERNIA REPAIR Social History Socioeconomic History Marital status: Tobacco Use Smoking status: Never Passive exposure: Past Smokeless tobacco: Never Tobacco comments: smokes, for 45 years Vaping Use Vaping status: Never Used Substance and Sexual Activity Alcohol use: No Drug use: No Sexual activity: Not Currently Partners: Male control/protection: Post-menopausal, None Comment: Vishnu of cancer 02/10/20 Family History Problem Relation Age of Onset [...] Colon cancer Neg Hx Objective Physical Exam: BP 133/67 Pulse 78 Temp 98.3 ??F (36.8 ??C) (Oral) Resp 20 Ht 152.4 cm (60 ) Wt 91.2 kg (201 lb) LMP (LMP Unknown) SpO2 99% BMI 39.26 kg/m?? Physical Exam Vitals and nursing note reviewed. Constitutional: Appearance: Normal appearance. She is obese. HENT: Head: Normocephalic and atraumatic. Nose: Nose normal. Eyes: Extraocular Movements: Extraocular movements intact. Pupils: Pupils are equal, round, and reactive to light. Cardiovascular: Rate and Rhythm: Normal rate and regular rhythm. Heart sounds: Normal heart sounds. Pulmonary: Effort: Pulmonary effort is normal. No respiratory distress. Breath sounds: Normal breath sounds. Abdominal: Palpations: Abdomen is soft. Tenderness: There is abdominal tenderness (Generalized but worse in left abdomen). There is no guarding or rebound. Musculoskeletal: General: Normal range of motion. Skin: General: Skin is warm. Neurological: General: No focal deficit present. Mental Status: She is alert and oriented to person, place, and time. Psychiatric: Mood and Affect: Mood normal. Behavior: Behavior normal. Procedures ED Course: Lab Results (last 24 hours) Procedure Component Value Units Date/Time CBC & Differential [[id number]] (Abnormal) Collected: 07/18/251615 Specimen: Blood Updated: 07/18/251625 Narrative: The following orders were created for panel order CBC & Differential. Procedure Abnormality Status --------- ------ CBC Auto Differential[[id number]] Abnormal Final result Please view results for these tests on the individual orders. Comprehensive Metabolic Panel [[id number]] (Abnormal) Collected: 07/18/251615 Specimen: Blood Updated: 07/18/25 165 Glucose 130 mg/dL BUN 10.0 mg/dL Creatinine 0.77 mg/dL Sodium 138 mmol/L Potassium 4.1 mmol/L Comment: Specimen hemolyzed. Result may be falsely elevated. Chloride 101 mmol/L CO2 21.5 mmol/L Calcium 9.3 mg/dL Total Protein 7.7 g/dL Albumin 4.2 g/dL ALT (SGPT) 18 U/L AST (SGOT) 32 U/L Comment: Specimen hemolyzed. Result may be falsely elevated. Alkaline Phosphatase 95 U/L Total Bilirubin 0.7 mg/dL Globulin 3.5 gm/dL A/G Ratio 1.2 g/dL BUN/Creatinine Ratio 13.0 Anion Gap 15.5 mmol/L eGFR 84.1 mL/min/1.73 Narrative: GFR Categories in Chronic Kidney Disease (CKD) GFR Category GFR (mL/min/1.73) Interpretation G1 90 or greater Normal or high (1) G2 60-89 Mild decrease (1) G3a 45-59 Mild to moderate decrease G3b 30-44 Moderate to severe decrease G4 15-29 Severe decrease G5 14 or less Kidney failure (1)In the absence of evidence of kidney disease, neither GFR category G1 or G2 fulfill the criteriafor CKD. eGFR calculation 2020 CKD-EPI creatinine equation, which does not include race as a factor Lipase [[id number]] (Normal) Collected: 07/18/251615 Specimen: Blood Updated: 07/18/25 1643 Lipase 17 U/L Lactic Acid, Plasma [[id number]] (Abnormal) Collected: 07/18/251615 Specimen: Blood Updated: 07/18/25 1653 Lactate 2.1 mmol/L CBC Auto Differential [[id number]] (Abnormal) Collected: 07/18/251615 Specimen: Blood Updated: 07/18/25 1626 WBC 7.95 10*3/mm3 RBC 4.01 10*6/mm3 Hemoglobin 11.3 g/dL Hematocrit 35.4 % MCV 88.3 fL MCH 28.2 pg MCHC 31.9 g/dL RDW 13.1 % RDW-SD 42.8 fl MPV 9.9 fL Platelets 264 10*3/mm3 Neutrophil % 69.5 % Lymphocyte % 15.7 % Monocyte % 12.6 % Eosinophil % 1.5 % Basophil % 0.4 % Immature Grans % 0.3 % Neutrophils, Absolute 5.53 10*3/mm3 Lymphocytes, Absolute 1.25 10*3/mm3 Monocytes, Absolute 1.00 10*3/mm3 Eosinophils, Absolute 0.12 10*3/mm3 Basophils, Absolute 0.03 10*3/mm3 Immature Grans, Absolute 0.02 10*3/mm3 Ketone Bodies, Serum (Not performed at [place]) [[id number]] (Abnormal) Collected: 07/18/251615 Specimen: Blood Updated: 07/18/251833 Narrative: The following orders were created for panel order Ketone Bodies, Serum (Not performed at [place]). Procedure Abnormality Status --------- ------ Beta Hydroxybutyrate Ranjith...[[id number]] Abnormal Final result Please view results for these tests on the individual orders. Beta Hydroxybutyrate Quantitative [[id number]] (Abnormal) Collected: 07/18/251615 Specimen: Blood Updated: 07/18/251833 Beta-Hydroxybutyrate Quant 0.912 mmol/L Narrative: In the assessment of possible diabetic ketoacidosis, the test should be interpreted along with other clinical and laboratory findings. A level greater than 1 mmol/L should require further evaluation and levels of more than 3 mmol/L require immediate medical review. Urinalysis With Microscopic If Indicated (No Culture) - Straight Cath [[id number]] (Abnormal) Collected: 07/18/25 1800 Specimen: Urine from Straight Cath Updated: 07/18/251811 Color, UA Yellow Appearance, UA Slightly Cloudy pH, UA 6.0 Specific [place], UA 1.015 Glucose, UA Negative Ketones, UA 40 mg/dL (2+) Bilirubin, UA Negative Blood, UA Negative Protein, UA Trace Leuk Esterase, UA Negative Nitrite, UA Negative Urobilinogen, UA 0.2 E.U./dL Narrative: Urine microscopic not indicated. Blood Gas, Venous With Co-Ox [[id number]] (Abnormal) Collected: 07/18/251906 Specimen: Venous Blood Updated: 07/18/251907 Site Nurse/Dr Draw pH, Venous 7.351 pH Units pCO2, Venous 52.5 mm Hg Comment: 83 Value above reference range pO2, Venous 27.9 mm Hg HCO3, Venous 29.0 mmol/L Base Excess, Venous 2.7 mmol/L Hemoglobin, Blood Gas 10.6 g/dL Oxyhemoglobin Venous 44.7 % Methemoglobin Venous 0.3 % Carboxyhemoglobin Venous 1.3 % CO2 Content 30.7 mmol/L Temperature 37.0 Barometric Pressure for Blood Gas -- Comment: N/A Modality Nasal Cannula FIO2 28 % Rate 0 Breaths/minute PIP 0 cmH2O Comment: Meter: [id number] Certified Court/Medical Interpreter: [id number] IPAP 0 EPAP 0 STAT Lactic Acid, Reflex [[id number]] (Normal) Collected: 07/18/251947 Specimen: Blood Updated: 07/18/252015 Lactate 1.4 mmol/L No radiology results from the last 24 hrs MDM Amount and/or Complexity of Data Reviewed Clinical lab tests: reviewed Initial impression of presenting illness: Patient is a obese 70-year-old female. DDX: includes but is not limited to: Pyelonephritis, pneumonia, nonspecific abdominal pain, urinarytract infection Patient arrives POV with stable vitals interpreted by myself. Pertinent features from physical exam: Patient has tenderness of the left abdomen and CVA tenderness on the left side. Patient's lungs are clear to auscultation bilaterally. Patient is hemodynamically stable, afebrile in no acute distress. Initial diagnostic plan: Due to patient being scanned earlier with contrast there is no indication to have scanning repeated. Will reach out to [facility] and attempt to get patient'sCT imaging records and records of her stay today. Advised patient that at this time she could be given nausea medication that blood work and urine would be collected until we are able to obtain theserecords. Results from initial plan were reviewed and interpreted by me revealing initial lactic acid of 2.1.Patient has an anion gap of 15.5 but she is able to tolerate fluids by mouth and has a history of heart failure therefore fluids are held at this time. Also reports that she was given fluids at [facility] prior to arrival. Patient's CBC nonactionable. Due to patient having an anion gap and a history of diabetes a VBG was obtained to rule out possible DKA and was found show no evidence of acidosis. Diagnostic information from other sources: Chart review. Patient's CT results from [facility] were reviewed by myself that showed no acute pathology in the abdomen and pelvis. Interventions: Medications administered as below Medications ondansetron (ZOFRAN) injection 4 mg (4 mg Intravenous Given 07/18/251728) ketorolac (TORADOL) injection 30 mg (30 mg Intravenous Given 07/18/252006) Reevaluation: Upon reevaluation patient reports significant improvement in her symptoms with interventions. Consultations/Discussion of results with other physicians: Discussed patient care Dr. Troy who agrees with treatment plan. Counseling: Discussed the results above with the patient regarding need for follow-up with primary care for reevaluation of her symptoms to continue care. Discussed with patient to continue course ofLevaquin, she took her first initial dose today and still has a remaining course of this medication. I discussed with her that Levaquin is the appropriate antibiotic for pyelonephritis and the pneumonia that she been diagnosed with that [facility]. Patient reports that she has a appointment on Monday with her senior education specialist, I advised her to continue with that appointment and ensure that shefollows up with them as well. I discussed with her signs symptoms that warrant return to the emergency department. Patient understands and agrees plan of care. ----- ED Disposition ED Disposition Discharge Condition Stable Comment Follow-up with primary care Final diagnoses: Left flank pain Left sided abdominal pain Your Follow-Up Providers Reza Panchal MD. Schedule an appointment as soon as possible for a visit in 3 days. Specialty: Family Medicine Follow up details: Reevaluation of todays symptoms [address] [address] Go to [facility] EMERGENCY [facility]PART[facility] [place]. Specialty: Emergency Medicine Follow up details: As needed, If symptoms worsen [address] [place] [facility] [address] Contact information for after-discharge care Follow-up information has not been specified. Your medication list CHANGE how you take these medications Instructions Last Dose Given Next Dose Due amLODIPine 2.5 MG tablet Commonly known as: NORVASC What changed: when to take this reasons to take this Take 1 tablet by mouth Daily. gabapentin 100 MG capsule Commonly known as: NEURONTIN What changed: how much to take TAKE 2 CAPSULES BY MOUTH THREE TIMES DAILY memantine 10 MG tablet Commonly known as: Namenda What changed: when to take this Take 1 tablet by mouth 2 (Two) Times a Day. CONTINUE taking these medications Instructions Last Dose Given Next Dose Due acetaminophen 500 MG tablet Commonly known as: TYLENOL Take 1 tablet by mouth Every 6 (Six) Hours As Needed for Mild Pain. albuterol sulfate HFA 108 (90 Base) MCG/ACT inhaler Commonly known as: PROVENTIL HFA;VENTOLIN HFA;PROAIR HFA Inhale 2 puffs Every 4 (Four) Hours As Needed for Wheezing or Shortness of Air. alendronate 70 MG tablet Commonly known as: FOSAMAX Take 1 tablet by mouth Every 7 (Seven) Days. atorvastatin 20 MG tablet Commonly known as: LIPITOR Take 1 tablet by mouth Daily. BD Pen Needle Reyna 2nd Gen 32G X 4 MM misc Generic drug: Insulin Pen Needle USE 1 NEEDLE THREE TIMES DAILY DIRECTED chlorthalidone 25 MG tablet Commonly known as: HYGROTON cholecalciferol 25 MCG (1000 UT) tablet Commonly known as: VITAMIN D3 Take 2 tablets by mouth Daily. Diclofenac Sodium 1 % gel gel Commonly known as: VOLTAREN Apply topically to the appropriate area as directed 4 (Four) Times a Day. Apply 4 grams topically to the affected area four times daily estradiol 0.1 MG/GM vaginal cream Commonly known as: ESTRACE DO NOT USE SYRINGE. PUT A PEA SIZE ON INDEX FINGER. APPLY TO VAGINAL AREA 2-3X WEEKLY fluconazole 150 MG tablet Commonly known as: DIFLUCAN TAKE 1 TABLET BY MOUTH 1 TIME FOR 1 DOSE. MAY REPEAT IN 3 DAYS IF SYMPTOMATIC fluticasone 50 MCG/ACT nasal spray Commonly known as: FLONASE Administer 2 sprays into the nostril(s) as directed by provider Daily. Fluticasone-Salmeterol 100-50 MCG/ACT DISKUS Commonly known as: ADVAIR/WIXELA Inhale 1 puff 2 (Two) Times a Day. glucose blood test strip Use to check blood sugar daily. E11.319 glucose monitor monitoring kit Use to check blood sugar daily. E11.319 hydrOXYzine 10 MG tablet Commonly known as: ATARAX TAKE 1 TABLET BY MOUTH FOUR TIMES DAILY NEEDED FOR NERVES Jardiance 10 MG tablet tablet Generic drug: empagliflozin TAKE 1 TABLET BY MOUTH DAILY Lancets 30G misc Use to check blood sugar daily. ED 11.319 levothyroxine 75 MCG tablet Commonly known as: SYNTHROID, LEVOTHROID Take 1 tablet by mouth Daily. Magnesium 250 MG tablet Take 2 tablets by mouth Daily. meloxicam 15 MG tablet Commonly known as: MOBIC Take 1 tablet by mouth Daily As Needed for Mild Pain. metoprolol succinate XL 50 MG 24 hr tablet Commonly known as: TOPROL-XL Take 1 tablet by mouth Every 12 (Twelve) Hours. mirtazapine 15 MG tablet Commonly known as: Remeron Take 1 tablet by mouth Every Night. montelukast 10 MG tablet Commonly known as: SINGULAIR Take 1 tablet by mouth Daily. nitrofurantoin (macrocrystal-monohydrate) 100 MG capsule Commonly known as: MACROBID TAKE 1 CAPSULE BY MOUTH TWO TIMES DAILY X 7 DAYS ONLY. AFTER TAKE 1 CAPSULE NIGHTLY FOR SUPPRESSIVETHERAPY E'COLI RECURRENT UTIs nitroglycerin 0.4 MG SL tablet Commonly known as: NITROSTAT Place 1 tablet under the tongue Every 5 (Five) Minutes As Needed for Chest Pain. Take no more than 3 doses in 15 minutes. nystatin 744595 UNIT/GM powder Commonly known as: MYCOSTATIN Apply topically to the appropriate area as directed 3 (Three) Times a Day. omeprazole 40 MG capsule Commonly known as: priLOSEC Take 1 capsule by mouth Daily. ondansetron 4 MG tablet Commonly known as: Zofran Take 1 tablet by mouth Every 8 (Eight) Hours As Needed for Nausea or Vomiting. potassium chloride 10 MEQ CR tablet Commonly known as: KLOR-CON M10 Take 1 tablet by mouth Daily. prasugrel 10 MG tablet Commonly known as: EFFIENT Take 1 tablet by mouth Daily. SIMPONI ARIA IV Infuse into a venous catheter Every 8 (Eight) Weeks. sucralfate 1 g tablet Commonly known as: CARAFATE Take 1 tablet by mouth 4 (Four) Times a Day. triamterene-hydrochlorothiazide 37.5-25 MG per capsule Commonly known as: DYAZIDE Take 1 capsule by mouth Daily. vitamin B-12 500 MCG tablet Commonly known as: CYANOCOBALAMIN Take 1 tablet by mouth Daily. vitamin C 250 MG tablet Commonly known as: ASCORBIC ACID Take 2 tablets by mouth Daily. Vonoprazan Fumarate 10 MG tablet Commonly known as: VOQUEZNA Take 1 tablet by mouth Daily. Cosigned by Crow Cunha MD at 07/22/2025 1:35 PM EDT Associated attestation - Crow Cunha MD - 07/22/2025 1:35 PM EDT SUPERVISE: For this patient encounter, I reviewed the APC's documentation, treatment plan, and medical decision making. Crow Cunha MD 07/22/2025 13:35 EDT documented in this encounter Plan of Treatment Upcoming Encounters Date Type Department Care Team (Late st Contact Info) Description 09/01/2025 11:00 AM EST Office Visit [facility] PULMONARY & CRITICAL CARE MEDICINE [address] [facility] [address] [place] [id number] 09/01/2025 11:30 AM EST Office Visit [facility] PULMONARY & CRITICAL CARE MEDICINE [address] [facility] [address] [place] [address] Maxine Gibson, GROMMET WORKER [address] [place] [id number] 09/02/2025 10:00 AM EST Office Visit [facility] UROLOGY [address] [facility] [address] [place] [address] Sanam Saunders, GROMMET WORKER [address] [facility] [address] [place], [place] [id number] 09/24/2025 9:15 AM EST Office Visit [facility] RHEUMATOLOGY [address] [facility] [place] [address] [place] [id number] John Sheppard APRN [address] [facility] [address] [place], [place] [id number] 10/15/2025 10:00 AM EST Infusion [facility] OUTPATIENT ONCOLOGY [place] [address] [facility] [address] [place] [address] 02/03/2026 10:45 AM EDT Office Visit [facility] RHEUMATOLOGY [address] [address] Patrice Santana, [address] [facility] [address] [place], [place] [id number] documented as of this encounter Goals Goal [...] Procedure Name Priority Date/Time Associated Diagnosis Comments LACTIC ACID, REFLEX STAT 07/18/2025 7 :48 PM EDT BLOOD GAS, VENOUS W/CO-OXIMETRY STAT 07/18/2025 7:07 PM EDT URINALYSIS W/ MICROSCOPIC IF INDICATED (NO CULTURE) STAT 07/18/2025 6:00 PM EDT KETONE BODIES STAT 07/18/2025 4:16 PM EDT BETA HYDROXYBUTYRATE QUANTITATIVE STAT 07/18/2025 4:16 PM EDT ARAGON TOP STAT 07/18/2025 4:16 PM EDT GOLD TOP - SST STAT 07/18/2025 4:16 PM EDT DK GREEN TOP STAT 07/18/2025 4:16 PM EDT CBC WITH AUTO DIFFERENTIAL STAT 07/18/2025 4:16 PM EDT LAVENDER TOP STAT 07/18/2025 4:16 PM EDT LIGHT BLUE TOP STAT 07/18/2025 4:16 PM EDT RAINBOW DRAW STAT 07/18/2025 4:16 PM EDT CBC AND DIFFERENTIAL STAT 07/18/2025 4:16 PM EDT LIPASE STAT 07/18/2025 4:16 PM EDT LACTIC ACID, PLASMA STAT 07/18/2025 4 :16 PM EDT COMPREHENSIVE METABOLIC PANEL STAT 07/18/2025 4:16 PM EDT documented in this encounter Results * STAT Lactic Acid, Reflex (07/18/2025 7:48 PM EDT) [facility] Lactate 1.4 0.5 - 2.0 mmol/L 07/18/2025 8:16 PM EDT [facility] Blood Line / Unknown 07/18/2025 7: 48 PM EDT 07/18/2025 7:57 PM EDT us Crow Cunha MD LAB BLOOD ORDERABLES Final Result [facility]
[address] [place] [address], * (ABNORMAL) Blood Gas, Venous With Co-Ox (07/18/2025 7:07 PM EDT) [facility] Site Nurse/Dr Draw 07/18/2025 7:07 PM EDT [facility] pH, Venous 7.351 7.310 - 7.410 pH Units 07/18/2025 7:07 PM EDT [facility] pCO2, Venous 52.5(H) 41.0 - 51.0 mm Hg 07/18/2025 7:07 PM EDT [facility] Comment:83 Value above refer ence range pO2, Venous 27.9 27.0 - 53.0 mm Hg 07/18/2025 7:07 PM EDT [facility] HCO3, Venous 29.0(H) 22.0 - 28.0 mmol/L 07/18/2025 7:07 PM EDT [facility] Base Excess, Venous 2.7(H) -2.0 - 2.0 mmol/L 07/18/2025 7:07 PM EDT [facility] Hemoglobin, Blood Gas 10.6(L) 14 - 18 g/dL 07/18/2025 7:07 PM EDT [facility] Oxyhemoglobin Venous 44.7 % 12/2024 7:07 PM EDT [facility] Methemoglobin Venous 0.3 % 12/2024 7:07 PM EDT [facility] Carboxyhemoglobin Venous 1.3 % 07/18/2025 7:07 PM EDT [facility] CO2 Content 30.7 22 - 33 mmol/L 07/18/2025 7:07 PM EDT [facility] Temperature 37.0 07/18/2025 7:07 PM EDT [facility] Barometric Pressure for Blood Gas 07/18/2025 7:07 PM EDT [facility] Comment:N/A Modality Nasal Cannula 07/18/2025 7:07 PM EDT [facility] FIO2 28 % 07/18/2025 7:07 PM EDT [facility] Rate 0 Breaths/ minute 07/18/2025 7:07 PM EDT [facility] PIP 0 cmH2O 07/18/2025 7:07 PM EDT [facility] Comment:Meter: [id number]/Medical Interpreter: [id number] IPAP 0 07/18/2025 7:07 PM EDT [facility] EPAP 0 07/18/2025 7:07 PM EDT [facility] Venous Blood 07/18/2025 7:07 PM EDT 07/18/2025 7:07 PM EDT us Crow Cunha MD LAB BLOOD ORDERABLES Final Result [facility]
[address] [place] [address], [place] * (ABNORMAL) Urinalysis With Microscopic If Indicated (No Culture) - Straight Cath (07/18/2025 6:00 PM EDT) Color, UA Yellow Yellow, Straw 07/18/2025 6:12 PM EDT [facility] Appearance, UA Slightly Cloudy(A) Clear 07/18/2025 6:12 PM EDT [facility] pH, UA 6.0 5.0 - 8.0 07/18/2025 6:12 PM EDT [facility] Specific [place], UA 1.015 1.005 - 1.030 07/18/2025 6:12 PM EDT [facility] Glucose, UA Negative Negative 07/18/2025 6:12 PM EDT [facility] Ketones, UA 40 mg/dL (2+)(A) Negative 07/18/2025 6:12 PM EDT [facility] Bilirubin, UA Negative Negative 07/18/2025 6:12 PM EDT [facility] Blood, UA Negative Negative 07/18/2025 6:12 PM EDT [facility] Protein, UA Trace(A) Negative 07/18/2025 6:12 PM EDT [facility] Leuk Esterase, UA Negative Negative 07/18[facility]25 [facility] Nitrite, UA Negative Negative 07/18/2025 6:12 PM EDT [facility] Urobilinogen, UA 0.2 E.U./dL 0.2 - 1.0 E.U./dL 07/18/2025 6:12 PM EDT [facility] Urine (Straight Cath) Collection / Unknown 07/18/2025 6:00 PM EDT 07/18/2025 6:07 PM EDT Narrative [facility] - 07/18/2025 6:12 PM EDT Urine microscopic not indicated. us Crow Cunha MD URINE ORDERABLES Final Resu lt [facility]
[address] [facility] [address] [place] [address], [place] * (ABNORMAL) Beta Hydroxybutyrate Quantitative (07/18/2025 4:16 PM EDT) [facility] Beta-Hydroxybu tyrate Quant 0.912(H) 0.020 - 0.270 mmol/L 07/18/2025 6:34 PM EDT [facility] Blood Venipuncture / Unknown 07/18/2025 4:16 PM EDT 07/18/2025 4:23 PM EDT [facility] - 07/18/2025 6:34 PM EDT In the assessment of possible diabetic ketoacidosis, the test should be interpreted along with other clinical and laboratory findings. A level greater than 1 mmol/L should require further evaluation and levels of more than 3 mmol/L require immediate medical review. us Nomi A Cisneros PA-C LAB BLOOD ORDERABLES Final R esult [facility]
[address] [facility] [address] [place] [address], [place] * (ABNORMAL) CBC Auto Differential (07/18/2025 4:16 PM EDT) [facility] WBC 7.95 3.40 - 10.80 10*3/mm3 07/18/2025 4:26 PM EDT [facility] RBC 4.01 3.77 - 5.28 10*6/mm3 07/18/2025 4:26 PM EDT [facility] Hemoglobin 11.3(L) 12.0 - 15.9 g/dL 07/18/2025 4:26 PM EDT [facility] Hematocrit 35.4 34.0 - 46.6 % 07/18/2025 4:26 PM EDT [facility] MCV 88.3 79.0 - 97.0 fL 07/18/2025 4:26 PM EDT [facility] MCH 28.2 26.6 - 33.0 pg 07/18/2025 4:26 PM EDT [facility] MCHC 31.9 31.5 - 35.7 g/dL 07/18/2025 4:26 PM [facility] RDW 13.1 12.3 - 15.4 % 07/18/2025 4:26 PM [facility] RDW-SD 42.8 37.0 - 54.0 fl 07/18/2025 4:26 PM [facility] MPV 9.9 6.0 - 12.0 fL 07/18/2025 4:26 PM [facility] Platelets 264 140 - 450 10*3/mm3 07/18/2025 4:26 PM [facility] Neutrophil % 69.5 42.7 - 76.0 % 07/18/2025 4: PM [facility] Lymphocyte % 15.7(L) 19.6 - 45.3 % 07/18/2025 4: PM [facility] Monocyte % 12.6(H) 5.0 - 12.0 % 07/18/2025 4:26 PM [facility] Eosinophil % 1.5 0.3 - 6.2 % 07/18/2025 4: PM [facility] Basophil % 0.4 0.0 - 1.5 % 07/18/2025 4: PM [facility] Immature Grans % 0.3 0.0 - 0.5 % 07/18/2025 4:26 PM [facility] Neutrophils, Absolute 5.53 1.70 - 7.00 10*3/mm3 07/18/2025 4:26 PM [facility] Lymphocytes, Absolute 1.25 0.70 - 3.10 10*3/mm3 07/18/2025 4: PM [facility] Monocytes, Absolute 1.00(H) 0.10 - 0.90 10*3/mm3 07/18/2025 4:26 PM [facility] Eosinophils, Absolute 0.12 0.00 - 0.40 10*3/mm3 07/18/2025 4:26 PM [facility] Basophils, Absolute 0.03 0.00 - 0.20 10*3/mm3 07/18/2025 4:26 PM EDT [facility] Immature Grans, Absolute 0.02 0.00 - 0.05 10*3/mm3 07/18/2025 4:26 PM EDT [facility] Blood Venipuncture / Unknown 07/18/2025 4:16 PM EDT 07/18/2025 4:23 PM EDT us Crow Cunha MD LAB BLOOD ORDERABLES Final Result [facility]
[address] [place] [address], [place] * Light Blue Top (07/18/2025 4:16 PM EDT) Extra Tube Hold for add-ons. 07/18/2025 4:31 PM EDT [facility] Comment:Auto resulted Blood Venipuncture / Unknown 07/18/2025 4:16 PM EDT 07/18/2025 4:23 PM EDT us Crow Cunha MD LAB BLOOD ORDER ONLY Final Result [facility]
[address] [place] [address], [place] * Aragon Top (07/18/2025 4:16 PM EDT) Extra Tube Hold for add-ons. 07/18/2025 4:31 PM EDT [facility] Comment:Auto resulted. Blood Venipuncture / Unknown 07/18/2025 4:16 PM EDT 07/18/2025 4:23 PM EDT us Crow Cunha MD LAB BLOOD ORDER ONLY Final Result [facility]
[address] [place] [id number], [place] * Gold Top - SST (07/18/2025 4:16 PM EDT) Extra Tube Hold for add-ons. 07/18/2025 4:31 PM EDT [facility] Comment:Auto resulted. Blood Venipuncture / Unknown 07/18/2025 4:16 PM EDT 07/18/2025 4:23 PM EDT us Crow Cunha MD LAB BLOOD ORDER ONLY Final Result [facility]
[address] [facility] [address] [place] [address], [place] * Lavender Top (07/18/2025 4:16 PM EDT) Extra Tube hold for add-on 07/18/2025 4:31 PM EDT [facility] Comment:Auto resulted Blood Venipuncture / Unknown 07/18/2025 4:16 PM EDT 07/18/2025 4:23 PM EDT us Crow Cunha MD LAB BLOOD ORDER ONLY Final Result [facility]
[address] [facility] [address] [place] [address], [place] * Green Top (Gel) (07/18/2025 4:16 PM EDT) Extra Tube Hold for add-ons. 07/18/2025 4:31 PM EDT [facility] Comment:Auto resulted. Blood Venipuncture / Unknown 07/18/2025 4:16 PM EDT 07/18/2025 4:23 PM EDT Crow Cunha MD LAB BLOOD ORDER ONLY Final Result [facility]
[address] [facility] [address] [place] [address], [place] * (ABNORMAL) Lactic Acid, Plasma (07/18/2025 4:16 PM EDT) Pathologist [facility] Lactate 2.1(HH) 0.5 - 2.0 mmol/L 07/18/2025 4:53 PM EDT [facility] Blood Venipuncture / Unknown 07/18/2025 4:16 PM EDT 07/18/2025 4:23 PM EDT Crow Cunha MD LAB BLOOD ORDERABLES Final Result [facility]
[address] [place] [address], [place] * Lipase (07/18/2025 4:16 PM EDT) Pathologist [facility] Lipase 17 13 - 60 U/L 07/18/2025 4:43 PM EDT [facility] Blood Venipuncture / Unknown 07/18/2025 4:16 PM EDT 07/18/2025 4:23 PM EDT Crow Cunha MD LAB BLOOD ORDERABLES Final Result [facility]
[address] [place] [address], [place] * (ABNORMAL) Comprehensive Metabolic Panel (07/18/2025 4:16 PM EDT) Pathologist [facility] Glucose 130(H) 65 - 99 mg/dL 07/18/2025 4:52 PM EDT [facility] BUN 10.0 8.0 - 23.0 mg/dL 07/18/2025 4:52 PM EDT [facility] Creatinine 0.77 0.57 - 1.00 mg/dL 07/18/2025 4:52 PM EDT [facility] Sodium 138 136 - 145 mmol/L 07/18/2025 4:52 PM EDT [facility] Potassium 4.1 3.5 - 5.2 mmol/L 07/18/2025 4:52 PM [facility] Comment:Specimen hemolyzed. Result may be falsely elevated. Chloride 101 98 - 107 mmol/L 07/18/2025 4:52 PM [facility] CO2 21.5(L) 22.0 - 29.0 mmol/L 07/18/2025 4:52 PM [facility] Calcium 9.3 8.6 - 10.5 mg/dL 07/18/2025 4:52 PM [facility] Total Protein 7.7 6.0 - 8.5 g/dL 07/18/2025 4:52 PM [facility] Albumin 4.2 3.5 - 5.2 g/dL 07/18/2025 4:52 PM [facility] ALT (SGPT) 18 1 - 33 U/L 07/18/2025 4:52 PM [facility] AST (SGOT) 32 1 - 32 U/L 07/18/2025 4:52 PM [facility] Comment:Specimen hemolyzed. Result may be falsely elevated. Alkaline Phosphatase 95 39 - 117 U/L 07/18/2025 4:52 PM [facility] Total Bilirubin 0.7 0.0 - 1.2 mg/dL 07/18/2025 4:52 PM [facility] Globulin 3.5 gm/dL 07/18/2025 4:52 PM [facility] A/G Ratio 1.2 g/dL 07/18/2025 4:52 PM [facility] BUN/Creatinine Ratio 13.0 7.0 - 25.0 07/18/2025 4:52 PM [facility] Anion Gap 15.5(H) 5.0 - 15.0 mmol/L 07/18/2025 4:52 PM [facility] eGFR 84.1 >60.0 mL/min/1.7 3 07/18/2025 4:52 PM [facility] Blood Venipuncture / Unknown 07/18/2025 4:16 PM EDT 07/18/2025 4:23 PM EDT Narrative [facility] - 07/18/2025 4:52 PM EDT GFR Categories in Chronic Kidney [...] not include race as a factor us Crow Cunha MD LAB BLOOD ORDERABLES Final Result [facility]
[address] [place] [address], documented in this encounter Visit Diagnoses Diagnosis Left flank pain- Primary Abdominal pain, unspecified site Left sided abdominal pain Abdominal pain, unspecified site documented in this encounter Administered Medications Inactive Administered Medications - up to 3 most recent administrations Medication Order MAR Action Action Date Dose Rate Site ketorolac (TORADOL) injection 30 mg 30 mg, Intravenous, Once, On Mon07/18/25 at 2015, For 1 dose, Based on patient request - if ordered for moderate or severe pain, provider allows for administration of a medication prescribed for a lower pain scale. (BKC) If given for pain, use the following pain scale: Mild Pain = Pain Score of 1-3, CPOT 1-2 Moderate Pain = Pain Score of 4-6, CPOT 3-4 Severe Pain = Pain Score of 7-10, CPOT 5-8 Given 07/18/2025 8:07 PM EDT 30 mg ondansetron (ZOFRAN) injection 4 mg 4 mg, Intravenous, Once, On Mon07/18/25 at 1745, For 1 dose, If multiple N/V medications ordered, use in the following order: Ondansetron, Prochlorperazine, Promethazine. Use PO unless patient refuses or patient unable to swallow. Given 07/18/2025 5:29 PM EDT 4 mg Sodium Chloride (PF) 0.9 % 10 mL 10 mL, Intravenous, As Needed, Line Care, Starting on Mon07/18/25 at 1543 documented in this encounter Active and Recently Administered Medications Times are shown in EDT. Scheduled Medication Order 07/16/2025 07/17/2025 07/18/2025 ketorolac (TORADOL) injection 30 mg (COMPLETED) 30 mg, Intravenous, Once, On Mon07/18/25 at 2015, For 1 dose, Based on patient request - if ordered for moderate or severe pain, provider allows for administration of a medication prescribed for a lower pain scale. (BKC) If given for pain, use the following pain scale: Mild Pain = Pain Score of 1-3, CPOT 1-2 Moderate Pain = Pain Score of 4-6, CPOT 3-4 Severe Pain = Pain Score of 7-10, CPOT 5-8 2006 (Given - Provid er: Kory Johnson RN) ondansetron (ZOFRAN) injection 4 mg (COMPLETED) 4 mg, Intravenous, Once, On Mon07/18/25 at 1745, For 1 dose, If multiple N/V medications ordered, use in the following order: Ondansetron, Prochlorperazine, Promethazine. Use PO unless patient refuses or patient unable to swallow. 172 (Given - Provid er: Kory Johnson RN) PRN Medication Order 07/16/2025 07/17/2025 07/18/2025 Sodium Chloride (PF) 0.9 % 10 mL 10 mL, Intravenous, As Needed, Line Care, Starting on Mon07/18/25 at 1543 documented in this encounter Additional Health Concerns Infection Onset Date Last Indicated Resolved Time Hepatitis A 04/12/2024 04/12/2024 Assessment Noted Time PHQ-2 Depression Total Score: 1 05/20/20 24 11:00 AM EDT documented as of this encounter Care Teams [employer] Relationship Specialty Start Date End Date Reza Panchal MD [address] [place] [address] PCP - General Family Medicine 09/30/24 documented as of this encounter
--- OUTSIDE RECORDS SUMMARY | 2025-07-21 10:30 | XMS_ITS | Encounter Summary ---
Author Organization [facility] Address [address] [place] [id number] Care Team Providers Care Sleeve Bottom Feller Name Role Phone Reza Panchal MD Primary Care Provider [phone] Reason for Visit * Reason Comments Urinary Tract Infection ER follow-up/UTI /pyelonephritis/back pain Encounter Details Date Type Department Care Team (Late st Contact Info) Description 07/21/2025 11:30 AM EDT Office Visit [facility] UROLOGY [address] [place] [address] Sanam Saunders APRN [address] [facility] [address] [place] [address] Acute pyelonephritis (Primary Dx); Urinary tract infection without hematuria, site unspecified; Lower urinary tract symptoms (LUTS); Back pain at L4-L5 level Social History Tobacco Use Types Packs/Day Years Used Date Smoking Tobacco: Never Passive Smoke Exposure: Past Smokeless Tobacco: Never Tobacco Cessation:Counseling Given: Not Answered Comments: smokes, for 45 years Alcohol Use Standard Drinks/Week Comments Never 0 (1 standard drink = 0.6 oz pur e alcohol) [facility] Utilities Answer Date Recorded In the past 12 months has [employer] electric, gas, oil, or water company threatened [...] - Inhaled Oxygen Concentration - - Weight 91.2 kg (201 lb) 07/21/2025 11:37 AM EDT Height 152.4 cm (5') 07/21/2025 11:37 AM EDT Body Mass Index 39.26 07/21/2025 11:37 AM EDT documented in this encounter Patient Instructions * Attachments The following attachments cannot be sent through Care Everywhere. * Pyelonephritis Adult [id number] (Chinese) * Urinary Tract Infection Female (Chinese) * Interstitial Cystitis (Chinese) * Overactive Bladder in Adults: What to Know (Chinese) documented in this encounter Progress Notes * Sanam Saunders APRN - 07/21/2025 11:30 AM EDT Images from the original note were not included. Chief Complaint Urinary Tract Infection (ER follow-up/UTI/pyelonephritis/back pain) Subjective Madison Castellanos presents to [facility] for pyelonephritis/LUTS History of Present Illness History of Present Illness The patient is a 70-year-old female who presents post ER for follow-up of UTI/pyelonephritis. She initially presented to [facility] ED on 07/18/2025, where CT imaging indicated pyelonephritis and a UTI infection. She was discharged home on antibiotics, Levaquin. Subsequently, she returned to [facility] ED due to worsening pain, seeking reevaluation of her symptoms. No further imaging was performed at that time. Urinalysis showed negative leuks and nitrites, with a lactate level of 2.1. She was advised to continue therapy at home with Levaquin for pneumonia and pyelonephritis, and her pain was managed with Toradol. She returns to the clinic today for follow-up, accompanied by her granddaughter. She has a neuromodulation device in place for an overactive bladder/LUTS. Today, she reports feeling slightly better than before. States she was diagnosed with a kidney infection, UTI, and pneumonia. Currently, she is experiencing chills but no fever. She feels nauseated denies any V/D she does not experience any burning sensation during urination. Her back and abdominalpain have improved, although she still experiences some discomfort. She has been taking Macrobid every other night as a prophylactic measure and is currently on Levaquin. She has a neuromodulation device implanted on 02/20/2025 for an overactive bladder, which she believes may be causing her current symptoms. States she was informed by her rep that that no adjustmentscould be made to the device until her infection clears up. She has noticed that her pull-ups have been soaking wet every morning for the past couple of weeks. SOCIAL HISTORY She does not smoke. Active Ambulatory Problems Diagnosis Date Noted Allergic [...] 06/29/2020 Pneumonia due to COVID-19 virus 10/27/2020 Urinary tract infection without hematuria 01/13/2021 Epistaxis 01/13/2021 Sepsis 01/13/2021 Background retinopathy [...] emptying -based on nuclear study 2017 09/07/2022 Upper respiratory tract infection 10/13/2022 Mild cognitive impairment 12/19/2022 DEVANG (obstructive sleep apnea)/suspected nocturnal hypoxemia.-by history. Intolerant of NIPPV in past. 05/18/2023 Numbness and tingling in both hands 11/12/2023 Back pain at L4-L5 level 12/12/2023 Acute right-sided low back pain 12/12/2023 [...] irritation in female 05/14/2025 Atrophic vaginitis 05/14/2025 Acute pyelonephritis 07/21/2025 Resolved Ambulatory Problems Diagnosis Date Noted Nausea [...] Vital Signs: Ht 152.4 cm (60 ) Wt 91.2 kg (201 lb) BMI 39.26 kg/m?? ROS: Review of Systems Gastrointestinal: Positive for abdominal distention. Genitourinary: Positive for flank pain. Musculoskeletal: Positive for back pain and gait problem. Psychiatric/Behavioral: Positive for stress. All other systems reviewed and are negative. Physical Exam Constitutional: General: She is not in acute distress. Appearance: Normal appearance. She is well-developed. She is not ill-appearing. HENT: Head: Normocephalic and atraumatic. Eyes: Pupils: Pupils are equal, round, and reactive to light. Genitourinary: Vagina: Normal. Neurological: Mental Status: She is alert and oriented to person, place, and time. Psychiatric: Mood and Affect: Mood normal. Behavior: Behavior normal. Thought Content: Thought content normal. Judgment: Judgment normal. Physical Exam General: Patient appears in no acute distress. Heart: Regular rate and rhythm. Lungs: Clear to auscultation bilaterally. Abdomen: No tenderness on palpation. Skin: Multiple needle cohen on bilateral arms. Result Review : The following data was reviewed by: Sanam Saunders APRN on 07/21/2025: UA 06/13/2025 10:07 07/18/2025 18:00 07/21/2025 11:40 Urinalysis Specific Caroleen, UA 1.015 Ketones, UA Negative 40 mg/dL (2+) Negative Blood, UA Negative Leukocytes, UA Negative Negative Trace Nitrite, UA Negative Urine Culture 06/13/2025 09:55 Urine Culture Urine Culture No growth Data reviewed : Radiologic studies CT RADIOLOGY (CT AND/OR KUB): CT Abdomen and Pelvis: No results found for this or any previous visit. CT Stone Protocol: No results found for this or any previous visit. KUB: No results found for this or any previous visit. Results Labs - Urinalysis: Negative leuks and negative nitrites, lactate of 2.1 - Urine culture: 06/13/2025, Completely negative LABS (3 MONTHS): Office Visit on 07/21/2025 Component Date Value Ref Range Status Color 07/21/2025 Yellow Yellow, Straw, Dark Yellow, Ann Final Clarity, UA 07/21/2025 Slightly Cloudy (A) Clear Final Specific Caroleen 07/21/2025 1.030 1.005 - 1.030 Final pH, Urine 07/21/2025 6.0 5.0 - 8.0 Final Leukocytes 07/21/2025 Trace (A) Negative Final Nitrite, UA 07/21/2025 Negative Negative Final Protein, POC 07/21/2025 Negative Negative mg/dL Final Glucose, UA 07/21/2025 2+ (A) Negative mg/dL Final Ketones, UA 07/21/2025 Negative Negative Final Urobilinogen, UA 07/21/2025 Normal Normal, 0.2 E.U./dL Final Bilirubin 07/21/2025 Negative Negative Final Blood, UA 07/21/2025 Negative Negative Final Lot Number 07/21/2025 [id number] Final Expiration Date 07/21/2025 11/07/2026 Final Admission on 07/18/2025, Discharged on 07/18/2025 Component Date Value Ref Range Status Glucose 07/18/2025 130 (H) 65 - 99 mg/dL Final BUN 07/18/2025 10.0 8.0 - 23.0 mg/dL Final Creatinine 07/18/2025 0.77 0.57 - 1.00 mg/dL Final Sodium 07/18/2025 138 136 - 145 mmol/L Final Potassium 07/18/2025 4.1 3.5 - 5.2 mmol/L Final Specimen hemolyzed. Result may be falsely elevated. Chloride 07/18/2025 101 98 - 107 mmol/L Final CO2 07/18/2025 21.5 (L) 22.0 - 29.0 mmol/L Final Calcium 07/18/2025 9.3 8.6 - 10.5 mg/dL Final Total Protein 07/18/2025 7.7 6.0 - 8.5 g/dL Final Albumin 07/18/2025 4.2 3.5 - 5.2 g/dL Final ALT (SGPT) 07/18/2025 18 1 - 33 U/L Final AST (SGOT) 07/18/2025 32 1 - 32 U/L Final Specimen hemolyzed. Result may be falsely elevated. Alkaline Phosphatase 07/18/2025 95 39 - 117 U/L Final Total Bilirubin 07/18/2025 0.7 0.0 - 1.2 mg/dL Final Globulin 07/18/2025 3.5 gm/dL Final A/G Ratio 07/18/2025 1.2 g/dL Final BUN/Creatinine Ratio 07/18/2025 13.0 7.0 - 25.0 Final Anion Gap 07/18/2025 15.5 (H) 5.0 - 15.0 mmol/L Final eGFR 07/18/2025 84.1 >60.0 mL/min/1.73 Final Lipase 07/18/2025 17 13 - 60 U/L Final Color, UA 07/18/2025 Yellow Yellow, Straw Final Appearance, UA 07/18/2025 Slightly Cloudy (A) Clear Final pH, UA 07/18/2025 6.0 5.0 - 8.0 Final Specific Caroleen, UA 07/18/2025 1.015 1.005 - 1.030 Final Glucose, UA 07/18/2025 Negative Negative Final Ketones, UA 07/18/2025 40 mg/dL (2+) (A) Negative Final Bilirubin, UA 07/18/2025 Negative Negative Final Blood, UA 07/18/2025 Negative Negative Final Protein, UA 07/18/2025 Trace (A) Negative Final Leuk Esterase, UA 07/18/2025 Negative Negative Final Nitrite, UA 07/18/2025 Negative Negative Final Urobilinogen, UA 07/18/2025 0.2 E.U./dL 0.2 - 1.0 E.U./dL Final Lactate 07/18/2025 2.1 (C) 0.5 - 2.0 mmol/L Final Extra Tube 07/18/2025 Hold for add-ons. Final Auto resulted. Extra Tube 07/18/2025 hold for add-on Final Auto resulted Extra Tube 07/18/2025 Hold for add-ons. Final Auto resulted. Extra Tube 07/18/2025 Hold for add-ons. Final Auto resulted. Extra Tube 07/18/2025 Hold for add-ons. Final Auto resulted WBC 07/18/2025 7.95 3.40 - 10.80 10*3/mm3 Final RBC 07/18/2025 4.01 3.77 - 5.28 10*6/mm3 Final Hemoglobin 07/18/2025 11.3 (L) 12.0 - 15.9 g/dL Final Hematocrit 07/18/2025 35.4 34.0 - 46.6 % Final MCV 07/18/2025 88.3 79.0 - 97.0 fL Final MCH 07/18/2025 28.2 26.6 - 33.0 pg Final MCHC 07/18/2025 31.9 31.5 - 35.7 g/dL Final RDW 07/18/2025 13.1 12.3 - 15.4 % Final RDW-SD 07/18/2025 42.8 37.0 - 54.0 fl Final MPV 07/18/2025 9.9 6.0 - 12.0 fL Final Platelets 07/18/2025 264 140 - 450 10*3/mm3 Final Neutrophil % 07/18/2025 69.5 42.7 - 76.0 % Final Lymphocyte % 07/18/2025 15.7 (L) 19.6 - 45.3 % Final Monocyte % 07/18/2025 12.6 (H) 5.0 - 12.0 % Final Eosinophil % 07/18/2025 1.5 0.3 - 6.2 % Final Basophil % 07/18/2025 0.4 0.0 - 1.5 % Final Immature Grans % 07/18/2025 0.3 0.0 - 0.5 % Final Neutrophils, Absolute 07/18/2025 5.53 1.70 - 7.00 10*3/mm3 Final Lymphocytes, Absolute 07/18/2025 1.25 0.70 - 3.10 10*3/mm3 Final Monocytes, Absolute 07/18/2025 1.00 (H) 0.10 - 0.90 10*3/mm3 Final Eosinophils, Absolute 07/18/2025 0.12 0.00 - 0.40 10*3/mm3 Final Basophils, Absolute 07/18/2025 0.03 0.00 - 0.20 10*3/mm3 Final Immature Grans, Absolute 07/18/2025 0.02 0.00 - 0.05 10*3/mm3 Final Lactate 07/18/2025 1.4 0.5 - 2.0 mmol/L Final Beta-Hydroxybutyrate Quant 07/18/2025 0.912 (H) 0.020 - 0.270 mmol/L Final Site 07/18/2025 Nurse/Dr Draw Final pH, Venous 07/18/2025 7.351 7.310 - 7.410 pH Units Final pCO2, Venous 07/18/2025 52.5 (H) 41.0 - 51.0 mm Hg Final 83 Value above reference range pO2, Venous 07/18/2025 27.9 27.0 - 53.0 mm Hg Final HCO3, Venous 07/18/2025 29.0 (H) 22.0 - 28.0 mmol/L Final Base Excess, Venous 07/18/2025 2.7 (H) -2.0 - 2.0 mmol/L Final Hemoglobin, Blood Gas 07/18/2025 10.6 (L) 14 - 18 g/dL Final Oxyhemoglobin Venous 07/18/2025 44.7 % Final Methemoglobin Venous 07/18/2025 0.3 % Final Carboxyhemoglobin Venous 07/18/2025 1.3 % Final CO2 Content 07/18/2025 30.7 22 - 33 mmol/L Final Temperature 07/18/2025 37.0 Final Barometric Pressure for Blood Gas 07/18/2025 Final N/A Modality 07/18/2025 Nasal Cannula Final FIO2 07/18/2025 28 % Final Rate 07/18/2025 0 Breaths/minute Final PIP 07/18/2025 0 cmH2O Final Meter: [id number] [employer] Person: [id number] IPAP 07/18/2025 0 Final EPAP 07/18/2025 0 Final Lab on 07/08/2025 Component Date Value Ref Range Status Glucose 07/08/2025 194 (H) 65 - 99 mg/dL Final BUN 07/08/2025 12.0 8.0 - 23.0 mg/dL Final Creatinine 07/08/2025 0.74 0.57 - 1.00 mg/dL Final Sodium 07/08/2025 138 136 - 145 mmol/L Final Potassium 07/08/2025 4.0 3.5 - 5.2 mmol/L Final Chloride 07/08/2025 100 98 - 107 mmol/L Final CO2 07/08/2025 22.7 22.0 - 29.0 mmol/L Final Calcium 07/08/2025 9.1 8.6 - 10.5 mg/dL Final Total Protein 07/08/2025 7.4 6.0 - 8.5 g/dL Final Albumin 07/08/2025 3.9 3.5 - 5.2 g/dL Final ALT (SGPT) 07/08/2025 18 1 - 33 U/L Final AST (SGOT) 07/08/2025 17 1 - 32 U/L Final Alkaline Phosphatase 07/08/2025 101 39 - 117 U/L Final Total Bilirubin 07/08/2025 0.2 0.0 - 1.2 mg/dL Final Globulin 07/08/2025 3.5 gm/dL Final A/G Ratio 07/08/2025 1.1 g/dL Final BUN/Creatinine Ratio 07/08/2025 16.2 7.0 - 25.0 Final Anion Gap 07/08/2025 15.3 (H) 5.0 - 15.0 mmol/L Final eGFR 07/08/2025 88.3 >60.0 mL/min/1.73 Final C-Reactive Protein 07/08/2025 0.30 0.00 - 0.50 mg/dL Final Sed Rate 07/08/2025 28 0 - 30 mm/hr Final Hepatitis B Surface Ag 07/08/2025 Non-Reactive Non-Reactive Final Hep A IgM 07/08/2025 Non-Reactive Non-Reactive Final Hep B C IgM 07/08/2025 Non-Reactive Non-Reactive Final Hepatitis C Ab 07/08/2025 Non-Reactive Non-Reactive Final WBC 07/08/2025 7.14 3.40 - 10.80 10*3/mm3 Final RBC 07/08/2025 3.74 (L) 3.77 - 5.28 10*6/mm3 Final Hemoglobin 07/08/2025 10.7 (L) 12.0 - 15.9 g/dL Final Hematocrit 07/08/2025 34.2 34.0 - 46.6 % Final MCV 07/08/2025 91.4 79.0 - 97.0 fL Final MCH 07/08/2025 28.6 26.6 - 33.0 pg Final MCHC 07/08/2025 31.3 (L) 31.5 - 35.7 g/dL Final RDW 07/08/2025 12.7 12.3 - 15.4 % Final RDW-SD 07/08/2025 42.3 37.0 - 54.0 fl Final MPV 07/08/2025 10.2 6.0 - 12.0 fL Final Platelets 07/08/2025 255 140 - 450 10*3/mm3 Final Neutrophil % 07/08/2025 49.5 42.7 - 76.0 % Final Lymphocyte % 07/08/2025 31.8 19.6 - 45.3 % Final Monocyte % 07/08/2025 14.6 (H) 5.0 - 12.0 % Final Eosinophil % 07/08/2025 3.1 0.3 - 6.2 % Final Basophil % 07/08/2025 0.4 0.0 - 1.5 % Final Immature Grans % 07/08/2025 0.6 (H) 0.0 - 0.5 % Final Neutrophils, Absolute 07/08/2025 3.54 1.70 - 7.00 10*3/mm3 Final Lymphocytes, Absolute 07/08/2025 2.27 0.70 - 3.10 10*3/mm3 Final Monocytes, Absolute 07/08/2025 1.04 (H) 0.10 - 0.90 10*3/mm3 Final Eosinophils, Absolute 07/08/2025 0.22 0.00 - 0.40 10*3/mm3 Final Basophils, Absolute 07/08/2025 0.03 0.00 - 0.20 10*3/mm3 Final Immature Grans, Absolute 07/08/2025 0.04 0.00 - 0.05 10*3/mm3 Final nRBC 07/08/2025 0.0 0.0 - 0.2 /100 WBC Final Office Visit on 06/13/2025 Component Date Value Ref Range Status Color 06/13/2025 Yellow Yellow, Straw, Dark Yellow, Ann Final Clarity, UA 06/13/2025 Clear Clear Final Specific Caroleen 06/13/2025 1.010 1.005 - 1.030 Final pH, [...] Final Urine Culture 06/13/2025 No growth Final Results Encounter on 06/12/2025 Component Date Value Ref Range Status 25 Hydroxy, Vitamin D 07/08/2025 56.4 30.0 - 100.0 ng/ml Final Office Visit on 05/14/2025 Component Date Value Ref Range Status Color 05/14/2025 Yellow Yellow, Straw, Dark Yellow, Ann Final Clarity, UA 05/14/2025 Slightly Cloudy (A) Clear Final Specific Caroleen 05/14/2025 1.015 1.005 - 1.030 Final pH, [...] 05/06/2025 2.680 0.270 - 4.200 uIU/mL Final Bladder & Bowel Symptom Questionnaire How [...] 22 0-7 (Mild) 8-16 (Moderate) 17-28 (Severe) Assessment and Plan Problem List Items Addressed This Visit Genitourinary and Reproductive Urinary tract infection without hematuria Relevant Medications levoFLOXacin (LEVAQUIN) 750 MG tablet Other Relevant Orders POC Urinalysis Dipstick, Automated (Completed) Urine Culture - Urine, Urine, Clean Catch Lower urinary tract symptoms (LUTS) Relevant Medications cyclobenzaprine (FLEXERIL) 5 MG tablet Other Relevant Orders Urine Culture - Urine, Urine, Clean Catch Musculoskeletal and Injuries Back pain at L4-L5 level Relevant Medications ketorolac (TORADOL) 10 MG tablet cyclobenzaprine (FLEXERIL) 5 MG tablet Other Acute pyelonephritis - Primary Relevant Medications levoFLOXacin (LEVAQUIN) 750 MG tablet Assessment & Plan Ms. Adrienne Castellanos is a pleasant 70-year-old female With a history of recurrent UTI on Macrobid prophylaxis, LUTS symptoms with neuromodulation device,who presents to clinic post multiple ER visits 07/18 for reevaluation. States she was diagnosed with pyelonephritis from UTI, and URI-Pneumonia 1. Urinary Tract Infection (UTI)/Pyelonephritis. CT imaging on 07/18/2025 was concerning for a UTI. She was initially discharged on Levaquin but returned to [facility] ED due to worsening pain. Repeat urinalysis showed negative leukocytes and nitrites, but no urine cultures were obtained. She is advised to complete her current course of Levaquin for 3 more days and then resume Macrobid nightly until ruled culture results are back to ensurecomplete resolution of infection. if symptoms worsen, she should contact the clinic. 2. Overactive Bladder/luts. She has a neuromodulation device in place for an overactive bladder, which cannot be adjusted untilthe infection clears up. Post-infectious therapy, she is recommended to reach out to the neuromodulation device freight representative for further evaluation and possible device interrogation. I 6. Chronic Back Pain. She has chronic back pain likely exacerbated by her current infections and a history of spinal issues. She will continue Toradol post ED, warm compresses to lower back, light exercises. Flexeril willbe prescribed to help manage her back pain, especially at night. If the dose is too strong, she cancut the tablets in half. Follow-up She will follow up in the clinic on 09/02/2025 or sooner if symptoms worsen. Patient reports that she is not currently experiencing any symptoms of urinary incontinence. Smoking Cessation Counseling: Never a smoker. Patient does not currently use any tobacco products. Follow Up Return in about 6 weeks (around 09/02/2025) for Next scheduled follow up, RECURRENT UTI/LUTS/ OAB WITH MIXED STRESS/URGE INCONTINEN-EVAL GEMTESA. Patient was given instructions and counseling regarding her condition or for health maintenance advice. Please see specific information pulled into the AVS if appropriate. This document has been electronically signed by Sanam Saunders APRN July 21, 2025 14:26 EDT Dictated Utilizing The [employer] Dictation: Part of this note may be an electronic recreation establishment manager/translation of spoken language to printed text using the Talk Local Dictation System. Patient or patient freight representative verbalized consent for the use of Ambient Listening during the visit with Sanam Saunders APRN for chart documentation. 07/21/2025 14:26 EDT documented in this encounter Plan of Treatment Upcoming Encounters Date Type Department Care Team (Late st Contact Info) Description 09/01/2025 11:00 AM EST Office Visit [facility] & [facility]ARE MEDICINE [address] [facility] [address] [place] [phone] 09/01/2025 11:30 AM EST Office Visit [facility] PULMONARY & CRITICAL CARE MEDICINE [address] [facility] [address] [place] [phone] Maxine Gibson, MORTGAGE CONSULTANT [address] [place] [address] 09/02/2025 10:00 AM EST Office Visit [facility] UROLOGY [address] [facility] [address] [place] [address] Sanam Saunders, MORTGAGE CONSULTANT [address] [facility] [address] [place] [id number] 09/24/2025 9:15 AM EST Office Visit [facility] RHEUMATOLOGY [address] [place] [id number] John Sheppard, MORTGAGE CONSULTANT [address] [place] [address] 10/15/2025 10:00 AM EST Infusion [facility] OUTPATIENT ONCOLOGY [address] [facility] [address] [place] [phone] 02/03/2026 10:45 AM EDT Office Visit [facility] RHEUMATOLOGY [address] [place] [phone] Patrice Santana DO [address] [place] [address] documented as of this encounter Goals Goal [...] Procedure Name Priority Date/Time Associated Diagnosis Comments URINE CULTURE Routine 07/21/2025 1:41 PM EDT Urinary tract infection without hematuria, site unspecified Lower urinary tract symptoms (LUTS) POCT URINALYSIS DIPSTICK, AUTOMATED Routine 07/21/2025 11:40 AM EDT Urinary tract infection without hematuria, site unspecified documented in this encounter Results * Urine Culture - Urine, Urine, Clean Catch (07/21/2025 1:41 PM EDT) Urine Culture No growth DICK 07/23/2025 4:20 AM EDT [facility] Urine Urine specimen obtained by clean catch procedure / Unknown Collection / Unknown 07/21/2025 1:41 PM EDT 07/21/2025 1:41 PM EDT Sanam Saunders APRN MICROBIOLOGY - GENERAL ORDERABLES Final Result [facility]
[address] [place] [address], [place] [phone] * (ABNORMAL) POC Urinalysis Dipstick, Automated (07/21/2025 11:40 AM EDT) Color Yellow Yellow, Straw, Dark Yellow, Ann [facility] Clarity, UA Slightly Cloudy(A) Clear [facility] Specific Caroleen 1.030 1.005 - 1.030 [facility] pH, Urine 6.0 5.0 - 8.0 [facility] Leukocytes Trace(A) Negative [facility] Nitrite, UA Negative Negative [facility] Protein, POC Negative Negative mg/dL [facility] Glucose, UA 2+(A) Negative mg/dL [facility] Ketones, UA Negative Negative [facility] Urobilinogen, UA Normal Normal, 0.2 E.U./dL [facility] Bilirubin Negative Negative [facility] Blood, UA Negative Negative [facility] Lot Number [id number] [facility] Expiration Date 11/07/2026 [facility] Urine 07/21/2025 11:4 0 AM EDT Sanam Saunders APRN POINT OF CARE TEST ORDE RABLES Final Result [facility]
[address] [place] [address], [place] [phone] documented in this encounter Visit Diagnoses Diagnosis Acute pyelonephritis- Primary Acute pyelonephritis without lesion of renal medullary necrosis Urinary tract infection without hematuria, site unspecified Lower urinary tract symptoms (LUTS) Back pain at L4-L5 level documented in this encounter Additional Health Concerns Infection Onset Date Last Indicated Resolved Time Hepatitis A 04/12/2024 04/12/2024 Assessment Noted Time PHQ-2 Depression Total Score: 1 05/20/20 24 11:00 AM EDT documented as of this encounter Care Teams Sleeve Bottom Feller Relationship Specialty Start Date End Date Reza Panchal MD [address] [place] [address] PCP - General Family Medicine 09/30/24 documented as of this encounter
--- OUTSIDE RECORDS SUMMARY | 2025-08-13 09:00 | XMS_ITS | Encounter Summary ---
[facility] Address [address] [place] [address] Care Team Providers Care Sales Service Professional Name Role Phone Reza Panchal MD Primary Care Provider +1- [phone] Reason for Visit * Episode Based Medications (Routine) - Closed Specialty Diagnoses / Procedures Referred By Tia t Referred To Contact Diagnoses Rheumatoid arthritis involving multiple sites with positive rheumatoid factor Procedures AK GOLIMUMAB FOR IV USE 1MG Patrice Santana DO [address] [place] [address] [place] [address] Phone: tel: fax: [facility] OUTPATIENT ONCOLOGY 1740 [place] [address] Phone: tel: fax: Referral ID Status Reason Start Date Expiration Date Visits Re quested Visits Authorized [id number] Closed 05/06/2024 05/06/2025 1 1 Encounter Details Date Type Department Care Team (Late st Contact Info) Description 08/13/2025 10:00 AM EDT Infusion [facility] OUTPATIENT ONCOLOGY [place] [address] [place] [address] [place] [address] Rheumatoid arthritis involving multiple sites with positive rheumatoid factor (Primary Dx) Social History Tobacco Use Types Packs/Day Years Used Date Smoking Tobacco: Never Passive Smoke Exposure: Past Smokeless Tobacco: Never Comments: smokes, for 45 years Alcohol Use Standard Drinks/Week Comments Never 0 (1 standard drink = 0.6 oz pur e alcohol) [facility] Utilities Answer Date Recorded In [...] or training? Not on file Preferred Language Botswanan 01/28/2025 PHQ-2 Answer Date Recorded Retired PHQ-9: [...] Sign Reading Time Taken Comments Blood Pressure 143/82 08/13/2025 9:50 AM EDT Pulse 86 08/13/2025 9:50 AM EDT Temperature 36.2 C (97.2 F) 08/13/2025 9:50 AM EDT Respiratory Rate 18 08/13/2025 9:50 AM EDT Oxygen Saturation - - Inhaled Oxygen Concentration - - Weight 91.2 kg (201 lb) 08/13/2025 9:50 AM EDT Height 152.4 cm (5') 08/13/2025 9:50 AM EDT Body Mass Index 39.26 08/13/2025 9:50 AM EDT documented in this encounter Plan of Treatment Upcoming Encounters Date Type Department Care Team (Late st Contact Info) Description 09/01/2025 11:00 AM EST Office Visit [facility] PULMONARY & CRITICAL CARE MEDICINE 3000 [facility] [address] [place] [address] 09/01/2025 11:30 AM EST Office Visit [facility] PULMONARY & CRITICAL CARE MEDICINE 3000 [facility] [place] [place] [address] Maxine Gibson, ASSURANCE SOURCING MANAGER 2400 [place] [address] 09/02/2025 10:00 AM EST Office Visit [facility] UROLOGY 1760 [facility] [place] 502 [place], [place] [phone] Sanam Saunders, ASSURANCE SOURCING MANAGER 1760 [facility] [address] [place], [place] [address] 09/24/2025 9:15 AM EST Office Visit [facility] RHEUMATOLOGY [address] [place] [address] John Sheppard, ASSURANCE SOURCING MANAGER [address] [place] [place], [place] [address] 10/15/2025 10:00 AM EST Infusion [facility] OUTPATIENT ONCOLOGY [place] [address] [place] [place] [address] 02/03/2026 10:45 AM EDT Office Visit [facility] RHEUMATOLOGY [address] [place] [address] Patrice Santana, [address] [place] [place], [place] [address] documented as of this encounter Goals Goal [...] MAR Action Action Date Dose Rate Site cetirizine (zyrTEC) tablet 10 mg 10 mg, Oral, Once, On Mon08/13/25 at 1015, For 1 doseIndications:Rheumatoid arthritis involving multiple sites with positive rheumatoid factor Given 08/13/2025 10:06 AM EDT 10 mg golimumab (SIMPONI ARIA) 200 mg in sodium chloride 0.9 % 100 mL infusion 200 mg, Intravenous, Administer over 30 Minutes, Once, On Mon08/13/25 at 1045, For 1 dose, Infuse using a 0.22 micron filter.Indications:Rheumato id arthritis involving multiple sites with positive rheumatoid factor New Bag 08/13/2025 10:35 AM EDT 200 mg 200 mL/hr sodium chloride 0.9 % infusion 20 mL/hr, Intravenous, Once, On Mon08/13/25 at 1015, For 1 doseIndications:Rheumatoid arthritis involving multiple sites with positive rheumatoid factor New Bag 08/13/2025 10:32 AM EDT 20 mL/hr 20 mL/hr documented in this encounter Additional Health Concerns Infection Onset Date Last Indicated Resolved Time Hepatitis A 04/12/2024 04/12/2024 Assessment Noted Time PHQ-2 Depression Total Score: 1 05/20/20 24 11:00 AM EDT documented as of this encounter Care Teams Sales Service Professional Relationship Specialty Start Date End Date Reza Panchal MD [address] [place] [address] PCP - General Family Medicine 09/30/24 documented as of this encounter
--- OUTSIDE RECORDS SUMMARY | 2025-08-20 07:45 | XMS_ITS | Encounter Summary ---
[facility] Address [address] [place] [phone] Care Team Providers Care Behavioral Health Therapist Name Role Phone Reza Panchal MD Primary Care Provider +1- [phone] Encounter Details Date Type Department Care Team (Late st Contact Info) Description 07/22/2025 Results Follow-Up [facility] UROLOGY 1760 [place] [address] Sanam Saunders APRN 1760 [facility] [address] [place] [address] Social History Tobacco Use Types Packs/Day Years Used Date Smoking Tobacco: Never Passive Smoke Exposure: Past Smokeless Tobacco: Never Comments: smokes, for 45 years Alcohol Use Standard Drinks/Week Comments Never 0 (1 standard drink = 0.6 oz pur e alcohol) [facility] Utilities Answer Date Recorded In the past 12 months has [employer] electric, gas, oil, or water company threatened [...] Description 09/01/2025 11:00 AM EST Office Visit [facility] PULMONARY & CRITICAL CARE MEDICINE 3000 [facility] 240 [place] [address] 09/01/2025 11:30 AM EST Office Visit [facility] PULMONARY & CRITICAL CARE MEDICINE 3000 [facility] 240 [place] [address] Maxine Gibson, VEHICLE INSURANCE AGENT 2400 [place] [address] 09/02/2025 10:00 AM EST Office Visit [facility] UROLOGY 1760 [facility] [address] [place] [address] Sanam Saunders, VEHICLE INSURANCE AGENT 1760 [facility] [address] [place] [address] 09/24/2025 9:15 AM EST Office Visit [facility] RHEUMATOLOGY [address] [facility] 100 [place] [address] John Sheppard, VEHICLE INSURANCE AGENT 330 [facility] 100 [place] [address] 10/15/2025 10:00 AM EST Infusion [facility] OUTPATIENT ONCOLOGY [address] [place] [address] 02/03/2026 10:45 AM EDT Office Visit [facility] RHEUMATOLOGY 330 [facility] 100 [place] [address] Patrice Santana DO [place] [address] [place] [address] documented as of this encounter Goals Goal [...] documented as of this encounter Care Teams Behavioral Health Therapist Relationship Specialty Start Date End Date Reza Panchal MD [facility]0 [place] [address] PCP - General Family Medicine 09/30/24 documented as of this encounter
--- OUTSIDE RECORDS SUMMARY | 2025-08-20 07:45 | XMS_ITS | Encounter Summary ---
[facility] Address [address] [place] [phone] Care Team Providers Care Manager Software Development Name Role Phone Reza Panchal MD Primary Care Provider +1- [phone] Encounter Details Date Type Department Care Team (Late st Contact Info) Description 05/16/2025 Results [facility]-Up [email or web address] UR[facility]Y 3000 [facility] 340 [place] [address] Sanam Saunders APRN 1760 [place] [address] Social History Tobacco Use Types Packs/Day Years Used Date Smoking Tobacco: Never Passive Smoke Exposure: Past Smokeless Tobacco: Never Comments: smokes, for 45 years Alcohol Use Standard Drinks/Week Comments No 0 (1 standard drink = 0.6 oz pur e alcohol) [facility] Utilities Answer Date Recorded In the past 12 months has [employer] electric, gas, oil, or water company threatened [...] Description 09/01/2025 11:00 AM EST Office Visit [facility] PULMONARY & CRITICAL CARE MEDICINE 3000 [facility] 240 [place] [address] 09/01/2025 11:30 AM EST Office Visit [facility] PULMONARY & CRITICAL CARE MEDICINE 3000 [facility] 240 [place] [address] Maxine Gibson, INFORMATION ARCHITECT 2400 [place] [address] 09/02/2025 10:00 AM EST Office Visit [facility] UROLOGY 1760 [facility] 502 [place] [address] Sanam Saunders, INFORMATION ARCHITECT 1760 [facility] [address] [place] [address] 09/24/2025 9:15 AM EST Office Visit [facility] RHEUMATOLOGY 330 [facility] 100 [place] [address] John Sheppard, INFORMATION ARCHITECT 330 [facility] 100 [place] [address] 10/15/2025 10:00 AM EST Infusion [facility] OUTPATIENT ONCOLOGY [address] [place] [address] 02/03/2026 10:45 AM EDT Office Visit [facility] RHEUMATOLOGY 330 [facility] 100 [place] [address] Patrice Santana DO 330 [facility] 100 [place] [address] documented as of this encounter Goals Goal [...] as of this encounter Care Teams Manager Software Development Relationship Specialty Start Date End Date Reza Panchal MD [facility] [address] [address] PCP - General Family Medicine 09/30/24 documented as of this encounter
--- OUTSIDE RECORDS SUMMARY | 2025-08-20 07:45 | XMS_ITS | Encounter Summary ---
[facility] Address [address] [place] [address] Care Team Providers Care Client Project Coordinator Name Role Phone Reza Panchal MD Primary Care Provider +1- [phone] Encounter Details Date Type Department Care Team (Late st Contact Info) Description 07/08/2025 Results Follow-Up [facility] RHEUMATOLOGY [address] [address] John Sheppard APRN [address] [phone] Social History Tobacco Use Types Packs/Day Years Used Date Smoking Tobacco: Never Passive Smoke Exposure: Past Smokeless Tobacco: Never Comments: smokes, for 45 years Alcohol Use Standard Drinks/Week Comments No 0 (1 standard drink = 0.6 oz pur e alcohol) [facility] Utilities Answer Date Recorded In the past 12 months has [employer] electric, gas, oil, or water company threatened [...] Description 09/01/2025 11:00 AM EST Office Visit [facility] PULMONARY & CRITICAL CARE MEDICINE 3000 [facility] 240 [place] [address] 09/01/2025 11:30 AM EST Office Visit [facility] PULMONARY & CRITICAL CARE MEDICINE 3000 [facility] 240 [place] [address] Maxine Gibson, CHIEF OF HOSPITAL MEDICINE 2400 [place] [address] 09/02/2025 10:00 AM EST Office Visit [facility] UROLOGY 1760 [facility] 502 [place] [address] Sanam Saunders, CHIEF OF HOSPITAL MEDICINE 1760 [facility] [address] [place], [place] [address] 09/24/2025 9:15 AM EST Office Visit [facility] RHEUMATOLOGY 330 [facility] 100 [place] [address] John Sheppard, CHIEF OF HOSPITAL MEDICINE 330 [place] [place] 100 [place] [address] 10/15/2025 10:00 AM EST Infusion [facility] OUTPATIENT ONCOLOGY [place] [address] [place] 110 [place] [address] 02/03/2026 10:45 AM EDT Office Visit [facility] RHEUMATOLOGY 330 [facility] 100 [place] [address] Patrice Santana DO [address] [address] documented as of this encounter Goals Goal [...] as of this encounter Care Teams Client Project Coordinator Relationship Specialty Start Date End Date Reza Panchal MD [address]10 [place] [address] PCP - General Family Medicine 09/30/24 documented as of this encounter
--- OUTSIDE RECORDS SUMMARY | 2025-08-20 07:45 | XMS_ITS | Encounter Summary ---
Author Organization [facility] Address [address] [place] [address] Care Team Providers Care Automatic Grinding Machine Operator Name Role Phone Reza Panchal MD Primary Care Provider +1- [phone] Encounter Details Date Type Department Care Team [...] Description 09/01/2025 11:00 AM EST Office Visit [facility] PULMONARY & CRITICAL CARE MEDICINE 3000 [facility] [address] [place] [address] 09/01/2025 11:30 AM EST Office Visit [facility] PULMONARY & CRITICAL CARE MEDICINE 3000 [facility] [address] [place] [address] Maxine Gibson, DIESEL INSPECTOR 2400 [place] [address] 09/02/2025 10:00 AM EST Office Visit [facility] UROLOGY 1760 [facility] [address] 502 [place] [address] Sanam Saunders, DIESEL INSPECTOR 1760 [facility] [address] [place], [place] [address] 09/24/2025 9:15 AM EST Office Visit [facility] RHEUMATOLOGY [address] [place] [address] John Sheppard, DIESEL INSPECTOR [address] [facility] 100 [place] [address] 10/15/2025 10:00 AM EST Infusion [facility] OUTPATIENT ONCOLOGY [place] [address] [facility] [address] [facility] 110 [place] [address] 02/03/2026 10:45 AM EDT Office Visit [facility] RHEUMATOLOGY [address] [place] [address] Patrice Santana DO [address] [facility] 100 [place], [place] [address] documented as of this encounter Goals Goal [...] MD [facility] [place] [address] PCP - General Family Medicine 09/30/24 documented as of this encounter
--- OUTSIDE RECORDS SUMMARY | 2025-08-20 07:45 | XMS_ITS | Clinical Summary ---
Author Organization [facility] Address [address] [facility] [address] [place] [address] Phone Care Team Providers Care Oil Well Engineer Name Role Phone Unavailable Unavailable Conditions or Problems No information available. Medications No information available. Medications Administered No information available. Allergies, Adverse Reactions, Alerts No information available. Results No information available. Plan of Care No information available. Procedures No information available. Vital Signs No information available. Immunizations No information available. Advance Directives No information available.
--- OUTSIDE RECORDS SUMMARY | 2025-08-20 07:45 | XMS_ITS | Encounter Summary ---
Author Organization [facility] Address [address] [place] [address] Care Team Providers Care Warehouse Coordinator Name Role Phone Reza Panchal MD Primary Care Provider [phone]- [phone] Encounter Details Date Type Department Care Team (Latest Contact Info) Description 08/13/2025 Travel Social History Tobacco Use Types Packs/Day Years Used Date Smoking Tobacco: Never Passive Smoke Exposure: Past Smokeless Tobacco: Never Comments: smokes, for 45 years Alcohol Use Standard Drinks/Week Comments Never 0 (1 standard drink = 0.6 oz pur e alcohol) [facility] Utilities Answer Date Recorded In the [...] Description 09/01/2025 11:00 AM EST Office Visit [facility] PULMONARY & CRITICAL CARE MEDICINE [address] [facility] [address] [place] [id number] 09/01/2025 11:30 AM EST Office Visit [facility] PULMONARY & CRITICAL CARE MEDICINE [address] [facility] [address] [place] [id number] Maxine Gibson, LEARNING CENTER COORDINATOR [address] [place] [address] 09/02/2025 10:00 AM EST Office Visit [facility] UROLOGY [address] [facility] [address] [place] [address] Sanam Saunders, LEARNING CENTER COORDINATOR [address] [facility] [address] [place], [place] [id number] 09/24/2025 9:15 AM EST Office Visit [facility] RHEUMATOLOGY [address] [place] [id number] John Shepprad, LEARNING CENTER COORDINATOR [address] [facility] [address] [place] [address] 10/15/2025 10:00 AM EST Infusion [facility] OUTPATIENT ONCOLOGY [facility] [address] [facility] [address] [place] [id number] 02/03/2026 10:45 AM EDT Office Visit [facility] RHEUMATOLOGY [address] [place] [phone] Patrice Santana DO [address] [facility] [address] [place], [place] [id number] documented as of this encounter Goals Goal [...] documented as of this encounter Care Teams Warehouse Coordinator Relationship Specialty Start Date End Date Reza Panchal MD [facility] [place] [address] PCP - General Family Medicine 09/30/24 documented as of this encounter
--- OUTSIDE RECORDS SUMMARY | 2025-08-20 07:45 | XMS_ITS | Clinical Summary ---
Author Organization [facility] Address [address] [place] [address] Care Team Providers Care Potato Peeling Machine Operator Name Role Phone Reza Panchal MD Primary Care Provider [phone] Allergies Active Allergy Reactions Criticality Noted Date [...] g 12 05/14/20 25 Active nystatin (MYCOSTATIN) [id number] UNIT/GM powderIndications: Yeast dermatitis,Perinea l irritation in [...] Spasms. 30 tablet 1 07/21/20 25 Active Active Problems Problem Noted Date Diagnosed Date Acute pyelonephritis 07/21/2025 Infection due to non-O157 Sh iga toxin-producing Escherichia coli (E.coli) 05/14/2025 Assessment & Plan (05/14/2025 6:23 PM EDT): MS Madison Castellanos is a 69 y.o. female post SNS device placement 6/25 for OAB, who presents for follow-up post [...] antibiotics to protect the rectal reservoir including uftq-udk-eiyavvt yogurt preparations to judy oral pills containing [...] (05/14/2025 6:23 PM EDT): Orders: nystatin (MYCOSTATIN) [id number] UNIT/GM powder; Apply topically to the appropriate area as directed 3 (Three) Times a Day. POC Urinalysis Dipstick, Automated Perineal irritation in female 05/14/2025 Assessment & Plan (05/14/2025 6:23 PM EDT): Orders: nystatin (MYCOSTATIN) [id number] UNIT/GM powder; Apply topically to the appropriate [...] respiratory distress or severe symptoms. Rx Z-Bird, Tessalon Perles, follow-up if symptoms or not improving over [...] Angina pectoris 05/03/2019 Overview (12/31/2020): a. Remote [facility] -- data deficit: No reported disease. b. L ight [place] with medical treatment. c. [facility], 05/12/2011, Dr. Mosley: Angiographically normal coronary arteries. [...] done before next visit. Reviewed labs from [facility]. Labs also requested. Assessment & Plan (01/30/2025 [...] Encounters Date Type Department Care Team Description 08/13/2025 10:00 AM EDT Infusion [facility] OUTPATIENT ONCOLOGY [place] [address] [place] [phone] Rheumatoid arthritis involving multiple sites with positive rheumatoid factor (Primary Dx) 08/13/2025 Travel 07/22/2025 Results Follow-Up [facility] UROLOGY [address] [facility] [address] [place] [address] Sanam Saunders APRN 07/21/2025 11:30 AM EDT Office Visit [facility] UROLOGY [address] [facility] [address] [place] [address] Sanam Saunders APRN Acute pyelonephritis (Primary Dx); Urinary tract infection without hematuria, site unspecified; Lower urinary tract symptoms (LUTS); Back pain at L4-L5 level 07/21/2025 Travel 07/18/2025 3:43 PM EDT - 07/18/2025 8:45 PM EDT Emergency [facility] EMERGENCY DEPARTMENT [place] [address] [facility] [address] [place] [phone] Crow Cunha MD Lally, Matthew, MD Left flank pain (Primary Dx); Left sided abdominal pain Discharge Disposition: Home or Self Care 07/18/2025 Travel 07/14/2025 Telephone [facility] PULMONARY & CRITICAL CARE MEDICINE [address] [facility] [address] [place] [phone] Maxine Gibson APRN Shortness of Breath 07/09/2025 9:00 AM EDT Infusion [facility] OUTPATIENT ONCOLOGY [place] [address] [place] [phone] Age-related osteoporosis without current pathological fracture (Primary Dx) 07/08/2025 9:05 AM EDT Lab [facility] LABORATORY [place] [address] [facility] [address] [place] [address] Seropositive rheumatoid arthritis; High risk medication use; Fatigue, unspecified type 07/08/2025 Results Follow-Up [facility] RHEUMATOLOGY [address] [place] [phone] John Sheppard , GREENHOUSE INSTRUCTOR 07/08/2025 Results Follow-Up [facility] LABORATORY [place] [address] [facility] [address] [place] [address] John Sheppard , GREENHOUSE INSTRUCTOR 07/08/2025 Travel 06/17/2025 Results Follow-Up [facility] UROLOGY [address] [facility] [address] [place] [address] Sanam Saunders APRN 06/13/2025 10:00 AM EDT Office Visit [facility] UROLOGY [address] [facility] [address] [place] [address] Sanam Saunders, PARVIZ Infection due to 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 toxin-producing Escherichia coli (E.coli) (Primary Dx); Lower urinary tract symptoms (LUTS) 06/13/2025 Travel 06/05/2025 10:45 AM EDT Office Visit [facility] RHEUMATOLOGY [address] [place] [phone] John Sheppard , PARVIZ Seropositive rheumatoid arthritis (Primary Dx); High risk medication use; Primary osteoarthritis involving multiple joints; Age-related osteoporosis without current pathological fracture; NSAID long-term use; Fatigue, unspecified type 06/05/2025 Telephone [facility] RHEUMATOLOGY [address] [place] [phone] John Sheppard , GREENHOUSE INSTRUCTOR 06/05/2025 Travel 06/04/2025 Results Follow-Up [facility] RHEUMATOLOGY [address] [place] [phone] Patrice Santana DO 06/03/2025 10:33 AM EDT - 06/03/2025 11:59 PM EDT Hospital Encounter [facility] [place]A [place] [address] [place] [address] Partice Santana DO Seropositive rheumatoid arthritis; High risk medication use; Primary osteoarthritis involving multiple joints; Age-related osteoporosis without current pathological fracture; NSAID long-term use Discharge Disposition: Home or Self Care 06/03/2025 Travel 05/28/2025 Telephone [facility] GASTROENTEROLOGY [address] [facility] [address] [place] [address] Ivelisse Cordon MD CANCEL PROCEDURE 05/23/2025 1:00 PM EDT - 05/23/2025 11:59 PM EDT Hospital Encounter [facility] OUTPATIENT ONCOLOGY [address] [place] [address] Patrice Santana DO Rheumatoid arthritis involving multiple sites with positive rheumatoid factor (Primary Dx) Discharge Disposition: Home or Self Care 05/23/2025 Travel from Last 3 Months Immunizations Immunization [...] or training? Not on file Preferred Language Cuban 01/28/2025 PHQ-2 Answer Date Recorded Retired PHQ-9: [...] 18 08/13/2025 9:50 AM EDT Oxygen Saturation 99% 07/18/2025 8:30 PM EDT Inhaled Oxygen Concentration - - Weight 91.2 kg (201 lb) 08/13/2025 9:50 AM EDT Height 152.4 cm (5') 08/13/2025 9:50 AM EDT Body Mass Index 39.26 08/13/2025 9:50 AM EDT Plan of Treatment Upcoming Encounters Date Type Department Care Team (Late st Contact Info) Description 09/01/2025 11:00 AM EST Office Visit [facility] PULMONARY & CRITICAL CARE MEDICINE [address] [facility] [address] [place] [phone] 09/01/2025 11:30 AM EST Office Visit [facility] PULMONARY & CRITICAL CARE MEDICINE [address] [facility] [address] [place] [phone] Maxine Gibson, GREENHOUSE INSTRUCTOR [address] [place] [address] 09/02/2025 10:00 AM EST Office Visit [facility] UROLOGY [address] [facility] [address] [place] [address] Sanam Saunders, GREENHOUSE INSTRUCTOR [address] [facility] [address] [place], [place] [phone] 09/24/2025 9:15 AM EST Office Visit [facility] RHEUMATOLOGY [address] [facility] [address] [place] [phone] John Sheppard, GREENHOUSE INSTRUCTOR [address] [facility] [address] [place] [address] 10/15/2025 10:00 AM EST Infusion [facility] OUTPATIENT ONCOLOGY [place] [address] [facility] [address] [place] [phone] 02/03/2026 10:45 AM EDT Office Visit [facility] RHEUMATOLOGY [address] [facility] [address] [place] [address] Patrice Santana DO [address] [facility] [address] [place] [address] Health Maintenance Due Date Last Done Comments COVID-19 Vaccine (#1) 1962 COLOGUARD 2002 COLON CANCER SCREENING 5 YEA R SIGMOIDOSCOPY 2002 CT COLONOGRAPHY 2002 FIT Testing (1 year) 2002 URINE MICROALBUMIN-CREATININ E RATIO (uACR) 04/13/2022 04/13/2021, 04/07/2020, 07/16/2019 TDAP/TD VACCINES (2 - Td or Tdap) 04/24/2022 012 DIABETIC FOOT EXAM 01/05/2024 01/04/2023, 0 01/04/2023, 01/04/2023, Additional history exists [facility] PLAN OF CARE 02/07/2024 ANNUAL [...] 06/12/2025 06/12/2023, 07/18, 07/09/2019, Additional history exists DXA SCAN 06/03/2027 06/03/2025, [...] day. Notes: Medical Devices Implanted Type Area Homebirth Midwife Device Identifier Shelf Expiration Date Model / Serial / Lot Pk Imp Trial Basic Bilat W/Ext Neurostm/Pne Ld Imp Kt - [id number] Implanted:Qty: 1 on 02/04/2025 by Brennan Lee MD at [facility] Implant N/A: Back [employer] 07/15/2025 1E01 / / [id number] Ld Neurostm Sacral Pne - [id number] Implanted:Qty: 1 on 02/04/2025 by Brennan Lee MD at [facility] Implant Back [employer] 02/20/2027 1901 / / [id number] Neurostm Sacral/Nerv [employer] Nonrechg W/Torq Wrench - [id number] Implanted:Qty: 1 on 02/20/2025 by Brennan Lee MD at [facility] Implant N/A: Back [employer] 12/12/2025 [id number] / / [id number] Kt Ld Stim Tined [employer] W/2/Sty Str/Crv - [id number] Implanted:Qty: 1 on 02/20/2025 by Brennan Lee MD at [facility] Implant N/A: Back [employer] 02/27/2027 [id number] / / [id number] Procedures Procedure Name Priority Date/Time Associated Diagnosis [...] BLUE TOP STAT 07/18/2025 4:16 PM EDT [place] TOP [...] current pathological fracture NSAID long-term use POCT GLYCOSYLATED HEMOGLOBIN (HGB A1C) Routine 04/15/2024 [...] Recently Relevant to Health Maintenance Results * Urine Culture - Urine, Urine, Clean Catch (07/21/2025 1:41 PM EDT) Only the most recent of2 resultswithin the time period is included. Urine Culture No growth DICK 07/23/2025 4:20 AM EDT [facility] Urine Urine specimen obtained by clean catch procedure / Unknown Collection / Unknown 07/21/2025 1:41 PM EDT 07/21/2025 1:41 PM EDT Sanam Saunders APRN MICROBIOLOGY - GENERAL ORDERABLES Final Result Performing Organization Address City/[facility]/ZIP Co de Phone Number [facility]
[address] [place] [address], * (ABNORMAL) POC Urinalysis Dipstick, Automated (07/21/2025 11:40 AM EDT) Only the most recent of2 resultswithin the time period is included. Pathologist [facility] Color Yellow Yellow, Straw, Dark Yellow, Ann [facility] Clarity, UA Slightly Cloudy(A) Clear [facility] Specific [place] 1.030 1.005 - 1.030 [facility] pH, Urine 6.0 5.0 - 8.0 [facility] Leukocytes Trace(A) Negative [facility] Nitrite, UA Negative Negative [facility] Protein, POC Negative Negative mg/dL [facility] Glucose, UA 2+(A) Negative mg/dL [facility] Ketones, UA Negative Negative [facility] Urobilinogen, UA Normal Normal, 0.2 E.U./dL [facility] Bilirubin Negative Negative [facility] Blood, UA Negative Negative [facility] Lot Number [id number] [facility] Expiration Date 11/07/2026 [facility] Urine 07/21/2025 11:4 0 AM EDT Sanam Saunders APRN POINT OF CARE TEST ORDE RABLES Final Result Performing Organization Address City/[facility]/ZIP Co de Phone Number [facility]
[address] [place] [address], * STAT Lactic Acid, Reflex (07/18/2025 7:48 PM EDT) [facility] Lactate 1.4 0.5 - 2.0 mmol/L 07/18/2025 8:16 PM EDT [facility] Blood Line / Unknown 07/18/2025 7: 48 PM EDT 07/18/2025 7:57 PM EDT Crow Cunha MD LAB BLOOD ORDERABLES Final Result [facility]
[address] [facility] [address] [place] [address], * Telemetry Scan (07/18/2025 7:24 PM EDT) [facility] ECG ORDERABLES Final Result * (ABNORMAL) Blood Gas, Venous With Co-Ox (07/18/2025 7:07 PM EDT) Pathologist [facility] Site Nurse/Dr Draw 07/18/2025 7:07 PM EDT [facility] RESPIRAT[facility] THERAPY pH, Venous 7.351 7.310 - 7.410 pH Units 07/18/2025 7:07 PM EDT [facility] RESPIRATORY THERAPY pCO2, Venous 52.5(H) 41.0 - 51.0 mm Hg 07/18/2025 7:07 PM EDT [facility] RES[facility]IR[facility] THERAPY Comment:83 Value above refer ence range pO2, Venous 27.9 27.0 - 53.0 mm Hg 07/18/2025 7:07 PM EDT [facility] RESPIRATORY THERAPY HCO3, Venous 29.0(H) 22.0 - 28.0 mmol/L 07/18/2025 7:07 PM EDT [facility] RESPIRATORY THERAPY Base Excess, Venous 2.7(H) -2.0 - 2.0 mmol/L 07/18/2025 7:07 PM EDT [facility] RESPIR[facility]ORY THERAPY Hemoglobin, Blood Gas 10.6(L) 14 - 18 g/dL 07/18/2025 7:07 PM EDT [facility] RES[facility]IR[facility] THERAPY Oxyhemoglobin Venous 44.7 % 12/2024 7:07 PM EDT [facility] RES[facility]IR[facility] THERAPY Methemoglobin Venous 0.3 % 12/2024 7:07 PM EDT [facility] RES[facility]IR[facility] THERAPY Carboxyhemoglobin Venous 1.3 % 07/18/2025 7:07 PM EDT [facility] RESPIR[facility] THERAPY CO2 Content 30.7 22 - 33 mmol/L 07/18/2025 7:07 PM EDT [facility] RESPIR[facility] THERAPY Temperature 37.0 07/18/2025 7:07 PM EDT [facility] RES[facility]IR[facility] THERAPY Barometric Pressure for Blood Gas 07/18/2025 7:07 PM EDT [facility] THERAPY Comment:N/A Modality Nasal Cannula 07/18/2025 7:07 PM EDT [facility] RES[facility]IR[facility] THERAPY FIO2 28 % 07/18/2025 7:07 PM EDT [facility]IR[facility] THERAPY Rate 0 Breaths/ minute 07/18/2025 7:07 PM EDT [facility]IR[facility] THERAPY PIP 0 cmH2O 07/18/2025 7:07 PM EDT [facility]IR[facility] THERAPY Comment:Meter: [id number] Anodizing Line Operator: [id number] IPAP 0 07/18/2025 7:07 PM EDT [facility] RES[facility]IR[facility] THERAPY EPAP 0 07/18/2025 7:07 PM EDT [facility] THERAPY Venous Blood 07/18/2025 7:07 PM EDT 07/18/2025 7:07 PM EDT us Crow Cunha MD LAB BLOOD ORDERABLES Final Result [facility] THERAPY
[address] [facility] [address] [place] [address], [place] * (ABNORMAL) Urinalysis With Microscopic If Indicated (No Culture) - Straight Cath (07/18/2025 6:00 PM EDT) Color, UA Yellow Yellow, Straw 07/18/2025 6:12 PM EDT [facility] Appearance, UA Slightly Cloudy(A) Clear 07/18/2025 6:12 PM EDT [facility] pH, UA 6.0 5.0 - 8.0 07/18/2025 6:12 PM EDT [facility] Specific [place], UA 1.015 1.005 - 1.030 07/18/2025 6:12 PM EDT [facility] Glucose, UA Negative Negative 07/18/2025 6:12 PM EDT [facility] Ketones, UA 40 mg/dL (2+)(A) Negative 07/18/2025 6:12 PM EDT [facility] Bilirubin, UA Negative Negative 07/18/2025 6:12 PM EDT [facility] Blood, UA Negative Negative 07/18/2025 6:12 PM EDT [facility] Protein, UA Trace(A) Negative 07/18/2025 6:12 PM EDT [facility] Leuk Esterase, UA Negative Negative 07/18/2025 6:12 PM EDT [facility] Nitrite, UA Negative Negative 07/18/2025 6:12 PM EDT [facility] Urobilinogen, UA 0.2 E.U./dL 0.2 - 1.0 E.U./dL 07/18/2025 6:12 PM EDT [facility] Urine (Straight Cath) Collection / Unknown 07/18/2025 6:00 PM EDT 07/18/2025 6:07 PM EDT Narrative [facility] - 07/18/2025 6:12 PM EDT Urine microscopic not indicated. us Crow Cunha MD URINE ORDERABLES Final Resu lt [facility]
[address] [facility] [address] [place] [address], [place] * (ABNORMAL) Beta Hydroxybutyrate Quantitative (07/18/2025 4:16 PM EDT) Beta-Hydroxybu tyrate Quant 0.912(H) 0.020 - 0.270 mmol/L 07/18/2025 6:34 PM EDT [facility] Blood Venipuncture / Unknown 07/18/2025 4:16 PM EDT 07/18/2025 4:23 PM EDT Narrative [facility] - 07/18/2025 6:34 PM EDT In the assessment of possible diabetic ketoacidosis, the test should be interpreted along with other clinical and laboratory findings. A level greater than 1 mmol/L should require further evaluation and levels of more than 3 mmol/L require immediate medical review. us Nomi GUSMAN-Anaya LAB BLOOD ORDERABLES Final R esult Performing Organization Address City/[facility]/ZIP Co de Phone Number [facility]
[address] [place] [address], [place] * Aragon Top (07/18/2025 4:16 PM EDT) Extra Tube Hold for add-ons. 07/18/2025 4:31 PM EDT [facility] Comment:Auto resulted. Blood Venipuncture / Unknown 07/18/2025 4:16 PM EDT 07/18/2025 4:23 PM EDT us Crow Cunha MD LAB BLOOD ORDER ONLY Final Result [facility]
[address] [facility] [address] [place] [address], [place] * Gold Top - SST (07/18/2025 4:16 PM EDT) Extra Tube Hold for add-ons. 07/18/2025 4:31 PM EDT [facility] Comment:Auto resulted. Blood Venipuncture / Unknown 07/18/2025 4:16 PM EDT 07/18/2025 4:23 PM EDT us Crow Cunha MD LAB BLOOD ORDER ONLY Final Result [facility]
[address] [facility] [address] [place] [address], [place] * Green Top (Gel) (07/18/2025 4:16 PM EDT) Pathologist [facility] Extra Tube Hold for add-ons. 07/18/2025 4:31 PM EDT [facility] Comment:Auto resulted. Blood Venipuncture / Unknown 07/18/2025 4:16 PM EDT 07/18/2025 4:23 PM EDT us Crow Cunha MD LAB BLOOD ORDER ONLY Final Result Performing Organization Address City/[facility]/ZIP Co de Phone Number [facility]
[address] [place] [address], [place] * (ABNORMAL) CBC Auto Differential (07/18/2025 4:16 PM EDT) Only the most recent of2 resultswithin the time period is included. [facility] WBC 7.95 3.40 - 10.80 10*3/mm3 07/18/2025 4:26 PM EDT [facility] RBC 4.01 3.77 - 5.28 10*6/mm3 07/18/2025 4:26 PM EDT [facility] Hemoglobin 11.3(L) 12.0 - 15.9 g/dL 07/18/2025 4:26 PM EDT [facility] Hematocrit 35.4 34.0 - 46.6 % 07/18/2025 4:26 PM EDT [facility] MCV 88.3 79.0 - 97.0 fL 07/18/2025 4:26 PM EDT [facility] MCH 28.2 26.6 - 33.0 pg 07/18/2025 4:26 PM EDT [facility] MCHC 31.9 31.5 - 35.7 g/dL 07/18/2025 4:26 PM [facility] RDW 13.1 12.3 - 15.4 % 07/18/2025 4:26 PM [facility] RDW-SD 42.8 37.0 - 54.0 fl 07/18/2025 4:26 PM [facility] MPV 9.9 6.0 - 12.0 fL 07/18/2025 4:26 PM [facility] Platelets 264 140 - 450 10*3/mm3 07/18/2025 4:26 PM [facility] Neutrophil % 69.5 42.7 - 76.0 % 07/18/2025 4:26 PM [facility] Lymphocyte % 15.7(L) 19.6 - 45.3 % 07/18/2025 4: PM [facility] Monocyte % 12.6(H) 5.0 - 12.0 % 07/18/2025 4:26 PM [facility] Eosinophil % 1.5 0.3 - 6.2 % 07/18/2025 4:26 PM [facility] Basophil % 0.4 0.0 - 1.5 % 07/18/2025 4:26 PM [facility] Immature Grans % 0.3 0.0 - 0.5 % 07/18/2025 4:26 PM [facility] Neutrophils, Absolute 5.53 1.70 - 7.00 10*3/mm3 07/18/2025 4:26 PM [facility] Lymphocytes, Absolute 1.25 0.70 - 3.10 10*3/mm3 07/18/2025 4:26 PM [facility] Monocytes, Absolute 1.00(H) 0.10 - 0.90 10*3/mm3 07/18/2025 4:26 PM [facility] Eosinophils, Absolute 0.12 0.00 - 0.40 10*3/mm3 07/18/2025 4:26 PM [facility] Basophils, Absolute 0.03 0.00 - 0.20 10*3/mm3 07/18/2025 4:26 PM EDT [facility] Immature Grans, Absolute 0.02 0.00 - 0.05 10*3/mm3 07/18/2025 4:26 PM EDT [facility] Blood Venipuncture / Unknown 07/18/2025 4:16 PM EDT 07/18/2025 4:23 PM EDT us Crow Cunha MD LAB BLOOD ORDERABLES Final Result [facility]
[address] [facility] [address] [place] [address], [place] * Lavender Top (07/18/2025 4:16 PM EDT) Extra Tube hold for add-on 07/18/2025 4:31 PM EDT [facility] Comment:Auto resulted Blood Venipuncture / Unknown 07/18/2025 4:16 PM EDT 07/18/2025 4:23 PM EDT us Crow Cunha MD LAB BLOOD ORDER ONLY Final Result [facility]
[address] [facility] [address] [place] [address], [place] * Light Blue Top (07/18/2025 4:16 PM EDT) Extra Tube Hold for add-ons. 07/18/2025 4:31 PM EDT [facility] Comment:Auto resulted Blood Venipuncture / Unknown 07/18/2025 4:16 PM EDT 07/18/2025 4:23 PM EDT us Crow Cunha MD LAB BLOOD ORDER ONLY Final Result [facility]
[address] [facility] [address] [place] [address], [place] * Lipase (07/18/2025 4:16 PM EDT) Lipase 17 13 - 60 U/L 07/18/2025 4:43 PM EDT [facility] Blood Venipuncture / Unknown 07/18/2025 4:16 PM EDT 07/18/2025 4:23 PM EDT us Crow Cunha MD LAB BLOOD ORDERABLES Final Result [facility]
[address] [address], [place] * (ABNORMAL) Lactic Acid, Plasma (07/18/2025 4:16 PM EDT) Lactate 2.1(HH) 0.5 - 2.0 mmol/L 07/18/2025 4:53 PM EDT [facility] Blood Venipuncture / Unknown 07/18/2025 4:16 PM EDT 07/18/2025 4:23 PM EDT us Crow Cunha MD LAB BLOOD ORDERABLES Final Result [facility]
[address] [place] [address], [place] * (ABNORMAL) Comprehensive Metabolic Panel (07/18/2025 4:16 PM EDT) Only the most recent of2 resultswithin the time period is included. Glucose 130(H) 65 - 99 mg/dL 07/18/2025 4:52 PM EDT [facility] BUN 10.0 8.0 - 23.0 mg/dL 07/18/2025 4:52 PM EDT [facility] Creatinine 0.77 0.57 - 1.00 mg/dL 07/18/2025 4:52 PM EDT [facility] Sodium 138 136 - 145 mmol/L 07/18/2025 4:52 PM EDT [facility] Potassium 4.1 3.5 - 5.2 mmol/L 07/18/2025 4:52 PM [facility] Comment:Specimen hemolyzed. Result may be falsely elevated. Chloride 101 98 - 107 mmol/L 07/18/2025 4:52 PM T [facility] CO2 21.5(L) 22.0 - 29.0 mmol/L 07/18/2025 4:52 PM EDT [facility] Calcium 9.3 8.6 - 10.5 mg/dL 07/18/2025 4:52 PM [facility] Total Protein 7.7 6.0 - 8.5 g/dL 07/18/2025 4:52 PM [facility] Albumin 4.2 3.5 - 5.2 g/dL 07/18/2025 4:52 PM [facility] ALT (SGPT) 18 1 - 33 U/L 07/18/2025 4:52 PM [facility] AST (SGOT) 32 1 - 32 U/L 07/18/2025 4:52 PM [facility] Comment:Specimen hemolyzed. Result may be falsely elevated. Alkaline Phosphatase 95 39 - 117 U/L 07/18/2025 4:52 PM [facility] Total Bilirubin 0.7 0.0 - 1.2 mg/dL 07/18/2025 4:52 PM [facility] Globulin 3.5 gm/dL 07/18/2025 4:52 PM [facility] A/G Ratio 1.2 g/dL 07/18/2025 4:52 PM [facility] BUN/Creatinine Ratio 13.0 7.0 - 25.0 07/18/2025 4:52 PM [facility] Anion Gap 15.5(H) 5.0 - 15.0 mmol/L 07/18/2025 4:52 PM [facility] eGFR 84.1 >60.0 mL/min/1.7 3 07/18/2025 4:52 PM [facility] Blood Venipuncture / Unknown 07/18/2025 4:16 PM EDT 07/18/2025 4:23 PM EDT Narrative [facility] - 07/18/2025 4:52 PM EDT [...] Cunha MD LAB BLOOD ORDERABLES Final Result [facility]
[address] [place] [address], [place] * CT Outside Abd/Pelvis (07/18/2025 12:00 AM EDT) Narrative SYSTEMGENERATED, DOCUMENTATION - 07/21/2025 11:53 AM EDT This procedure was auto-finalized with no dictation required. us Sanam Saunders APRN IMG CT ORDERABLES Final Result * Hepatitis Panel, Acute (07/08/2025 9:03 AM EDT) Hepatitis B Surface Ag Non-Reacti ve Non-Reacti ve 07/08/2025 3:12 PM EDT [facility] Hep A IgM Non-Reacti ve Non-Reacti ve 07/08/2025 3:12 PM EDT [facility] Hep B C IgM Non-Reacti ve Non-Reacti ve 07/08/2025 3:12 PM EDT [facility] Hepatitis C Ab Non-Reacti ve Non-Reacti ve 07/08/2025 3:12 PM EDT [facility] Blood Venipuncture / Unknown 07/08/2025 9:03 AM EDT 07/08/2025 9:03 AM EDT Narrative [facility] - 07/08/2025 3:12 PM EDT Results may be falsely decreased if patient taking Biotin. John Sheppard APRN LAB BLOOD ORDERABLES F inal Result Performing Organization Address City/[facility] Co de Phone Number [facility]
[address] [place] [address], * Vitamin D 25 Hydroxy (07/08/2025 9:03 AM EDT) 25 Hydroxy, Vitamin D 56.4 30.0 - 100.0 ng/ml 07/08/2025 3:02 PM EDT [facility] Blood Venipuncture / Unknown 07/08/2025 9:03 AM EDT 07/08/2025 9:03 AM EDT Narrative [facility] - 07/08/2025 3:02 PM EDT Reference Range for Total Vitamin D 25(OH) Deficiency <20.0 ng/mL Insufficiency 21-29 ng/mL Sufficiency 30-100 ng/mL Toxicity >100 ng/ml John Sheppard APRN LAB BLOOD ORDERABLES F inal Result Performing Organization Address City/[facility] Co de Phone Number [facility]
[address] [place] [address], * Sedimentation Rate (07/08/2025 9:03 AM EDT) Sed Rate 28 0 - 30 mm/hr 07/08/2025 2:36 PM EDT [facility] Blood Venipuncture / Unknown 07/08/2025 9:03 AM EDT 07/08/2025 9:03 AM EDT Rosye Savosolar GREENHOUSE INSTRUCTOR LAB BLOOD ORDERABLES F inal Result Performing Organization Address City/[facility]/ZIP Co de Phone Number [facility]
[address] [place] [address], * C-reactive Protein (07/08/2025 9:03 AM EDT) C-Reactive Protein 0.30 0.00 - 0.50 mg/dL 07/08/2025 2:56 PM EDT [facility] Blood Venipuncture / Unknown 07/08/2025 9:03 AM EDT 07/08/2025 9:03 AM EDT FloraAlexi Savosolar GREENHOUSE INSTRUCTOR LAB BLOOD ORDERABLES F inal Result Performing Organization Address [facility] Co de Phone Number [facility]
[address] [place] [address], * DEXA Bone Density Axial (06/03/2025 10:55 [...] fall-prevention measurements. The National Osteoporosis Foundation recommends (http://www.nof.org/hcp/practice/njofarvv-duy-vudcfkzo-guidelines/clinicians-christine de) that FDA-approved medical therapies be considered [...] the left hip with 95% confidence is 0.068327 gm/cm2 at the hip and 0.524182 g/cm2 at the lumbar spine. Report dictated by: Kiah Weston PA-c I have personally reviewed this case and agree with the findings above: Electronically Signed: Julito Kirkland MD 06/03/2025 4:39 PM EDT Workstation ID: [id number] Narrative 06/03/2025 4:39 PM EDT DUAL-ENERGY X-RAY [...] normal patients. According to criteria established by the[facility], patients with T-scores between [...] exercises and fall-prevention measurements. The NationalOsteoporosis Foundation recommends(http://www.nof.org/hcp/practice/bizbsfvj-vzs-diwfajky-guidelines/clin ician s-guide) that FDA-approved medical therapies be [...] at the left hipwith 95% confidence is 0.340872 gm/cm2 at the hip and 0.724270 g/cm2 atthe lumbar spine. Report dictated by: Kiah Weston PA-c I have personally reviewed this case and agree with the findings above: Electronically Signed: Julito Kirkland MD 06/03/2025 4:39 PM EDT Workstation ID: [id number] Patrice Santana DO IMG DXA ORDERABLES Fin al Result * (ABNORMAL) POC Glycosylated Hemoglobin (Hb A1C) (04/15/2024 3:58 PM EDT) Hemoglobin A1C 5.6 4.5 - 5.7 % [facility] Lot Number [id number] [facility] Expiration Date 12/31/2025 [facility] Blood 04/15/2024 3:58 PM EDT Huyen Pal MD POINT OF CARE TEST ORDERABL ES Final Result [facility]
[address] [place] [address], * (ABNORMAL) Lipid Panel (02/21/2024 10:20 AM EDT) Total Cholesterol 143 0 - 200 mg/dL 02/21/2024 11:45 PM EDT [facility] Triglycerides 212(H) 0 - 150 mg/dL 02/21/2024 11:45 PM EDT [facility] HDL Cholesterol 37(L) 40 - 60 mg/dL 02/21/2024 11:45 PM EDT [facility] LDL Cholesterol 71 0 - 100 mg/dL 02/21/2024 11:45 PM EDT [facility] VLDL Cholesterol 35 5 - 40 mg/dL 02/21/2024 11:45 PM EDT [facility] LDL/HDL Ratio 1.72 02/21/2024 11:45 PM EDT [facility] Blood Structure of right upper limb / Unknown Venipuncture / Unknown 02/21/2024 10:20 AM EDT 02/21/2024 10:20 AM EDT Narrative [facility] - 02/21/2024 11:45 PM [...] Pal MD LAB BLOOD ORDERABLES Final Result [facility]
[address] [place] [address], [place] [phone] * SCANNED - EYE EXAM (07/20/2023) Anatomical [...] [facility] LOT NUMBER [id number] [facility] DEVELOPER EXPIRATION DATE 02/12/2025 [facility] Positive Control Positive Positive [facility] Negative Control Negative Negative [facility] Stool 04/13/2023 11:3 2 AM EDT Huyen Pal MD POINT OF CARE TEST ORDERABL ES Final Result [facility]
[address] [place] [address], [place] [phone] * Microalbumin / Creatinine Urine Ratio - [...] 2:11 PM EDT 04/14/2021 Comment:URINE RELEASE TO [facility] Narrative [facility]) - 04/14/2021 10:09 AM EDT Performed at: - [address] [id number] Special Distribution Clerk: Jean Stephens PhD, Phone: [phone] Huyen Pal MD URINE ORDERABLES Final Resu lt Performing Organization Address City/[facility]/ZIP Co de Phone Number [facility] [address] [place] [address], [place] [phone] [facility] [address] [place] [address], [place] [phone] * SCANNED - INFLUENZA (07/16/2019) Huyen Pal MD CHART REVIEW TABS Final Result * SCANNED - COLONOSCOPY (11/14/2013) Lizbeth Ibarra MD CHART REVIEW TABS Final Result from Last 3 Months or Most Recently Relevant to Health Maintenance Additional Health Concerns Infection Onset Date Last Indicated Hepatitis A 04/12/2024 04/12/2024 Insurance [employer] MEDICARE ADVANTAGE FORMERLY [facility] [place] QMB Advance Directives Documents on File Type Date Recorded Patient Screen Making Technician Expl anation PATIENT ADVANCE DIRECTIVES - SCAN [...] Of Support Discussed With: Patient Care Teams Potato Peeling Machine Operator Relationship Specialty Start Date End Date Reza Panchal MD [address] [place] [address] PCP - General Family Medicine 09/30/24
--- OUTSIDE RECORDS SUMMARY | 2025-08-20 07:45 | XMS_ITS | Encounter Summary ---
Author Organization [facility] Address [address] [place] [address] Care Team Providers Care Track Equipment Operator Name Role Phone Reza Panchal MD Primary Care Provider +1- [phone] Reason for Visit * Reason Comments Med Refill Encounter Details Date Type Department Care Team (Late st Contact Info) Description 02/24/2023 Refill [facility]IMARY [facility] [address] [address] Huyen Hall MD [address] [address] Type 2 diabetes mellitus with hyperglycemia, without [...] 09/01/2025 11:00 AM EST Office Visit [facility] PULMONARY & CRITICAL CARE MEDICINE 3000 [facility] [address] [place] [address] 09/01/2025 11:30 AM EST Office Visit [facility] PULMONARY & CRITICAL CARE MEDICINE 3000 [facility] 240 [place] [address] Maxine Gibson, ENVIRONMENTAL HEALTH AND SAFETY INTERN [address] [place] [address] 09/02/2025 10:00 AM EST Office Visit [facility] UROLOGY 1760 [facility] [address] [place] [address] Sanam Saunders, PARVIZ 1760 [facility] [address] [place] [address] 09/24/2025 9:15 AM EST Office Visit [facility] RHEUMATOLOGY 330 [facility] 100 [place] [address] John Sheppard APRN 330 [facility] 100 [place] [address] 10/15/2025 10:00 AM EST Infusion [facility] OUTPATIENT ONCOLOGY [place] 330 [facility] 110 [place] [address] 02/03/2026 10:45 AM EDT Office Visit [facility] RHEUMATOLOGY 330 [facility] 100 [place] [address] Patrice Santana DO 330 [facility] [address] [place] [address] documented as of this encounter Visit Diagnoses [...] as of this encounter Care Teams Track Equipment Operator Relationship Specialty Start Date End Date Reza Panchal MD [address] [address] PCP - General Family Medicine 09/30/24 documented as of this encounter
--- OUTSIDE RECORDS SUMMARY | 2025-08-20 07:45 | XMS_ITS | Encounter Summary ---
[facility] Address [address] [place] [address] Care Team Providers Care Pony Cylinder Press Operator Name Role Phone Reza Panchal MD Primary Care Provider +1- [phone] Reason for Visit * Reason Comments Med Refill Encounter Details Date Type Department Care Team (Late st Contact Info) Description 12/19/2021 Refill [facility]IMARY [facility] [address] [address] Dia Underwood MD 2039 [facility] 100 [place] [address] Social History Tobacco Use Types Packs/Day Years [...] Description 09/01/2025 11:00 AM EST Office Visit [facility] PULMONARY & CRITICAL CARE MEDICINE [address] [place] [address] 09/01/2025 11:30 AM EST Office Visit [facility] PULMONARY & CRITICAL CARE MEDICINE [address] [address] Maxine Gibson, WEBBING INSPECTOR [address] [place] [address] 09/02/2025 10:00 AM EST Office Visit [facility] UROLOGY [address] [address] Sanam Saunders, WEBBING INSPECTOR 1760 [facility] [address] [place] [address] 09/24/2025 9:15 AM EST Office Visit [facility] RHEUMATOLOGY [address] [phone] John Sheppard, WEBBING INSPECTOR [address] [address] 10/15/2025 10:00 AM EST Infusion [facility] OUTPATIENT ONCOLOGY [place] 330 [facility] [place] [address] [place] [address] 02/03/2026 10:45 AM EDT Office Visit [facility]HEUMATOLOGY 330 [facility] [address] [place] [address] Patrice Santana DO 330 [facility] 100 [place] [address] documented as of this encounter Visit Diagnoses [...] documented as of this encounter Care Teams Pony Cylinder Press Operator Relationship Specialty Start Date End Date Reza Panchal MD [address] [address] PCP - General Family Medicine 09/30/24 documented as of this encounter
--- OUTSIDE RECORDS SUMMARY | 2025-08-20 07:45 | XMS_ITS | Encounter Summary ---
[facility] Organization [facility] Address [address] [place] [address] Care Team Providers Care Director Of Planning Name Role Phone Reza Panchal MD Primary Care Provider +1- [phone] Encounter Details Date Type Department Care Team (Late st Contact Info) Description 07/08/2025 Results Follow-Up [facility] 3000 [facility] 140 [place] [address] John Sheppard APRN 330 [facility] [address] [place], [place] [id number] Social History Tobacco Use Types Packs/Day Years Used Date Smoking Tobacco: Never Passive Smoke Exposure: Past Smokeless Tobacco: Never Comments: smokes, for 45 years Alcohol Use Standard Drinks/Week Comments No 0 (1 standard drink = 0.6 oz pur e alcohol) [facility] Utilities Answer Date Recorded In the past 12 months has [employer] electric, gas, oil, or water company threatened [...] Description 09/01/2025 11:00 AM EST Office Visit [facility] PULMONARY & CRITICAL CARE MEDICINE 3000 [facility] [place] [place] [address] 09/01/2025 11:30 AM EST Office Visit [facility] PULMONARY & CRITICAL CARE MEDICINE 3000 [facility] [place] [place] [address] Maxine Gibson, GROUND SUPPORT EQUIPMENT MECHANIC [address] [place] [address] 09/02/2025 10:00 AM EST Office Visit [facility] UROLOGY 1760 [facility] 502 [place] [address] Sanam Saunders, GROUND SUPPORT EQUIPMENT MECHANIC 1760 [facility] [address] [place] [address] 09/24/2025 9:15 AM EST Office Visit [facility] RHEUMATOLOGY [address] [facility] 100 [place] [address] John Sheppard, GROUND SUPPORT EQUIPMENT MECHANIC 330 [facility] 100 [place] [address] 10/15/2025 10:00 AM EST Infusion [facility] OUTPATIENT ONCOLOGY [place] 330 [facility] 110 [place] [address] 02/03/2026 10:45 AM EDT Office Visit [facility] RHEUMATOLOGY [address] [place] [address] [place] [address] Patrice Santana DO 330 [address] [address] documented as of this encounter Goals Goal [...] of this encounter Care Teams Director Of Planning Relationship Specialty Start Date End Date Reza Panchal MD [address] [place] [address] PCP - General Family Medicine 09/30/24 documented as of this encounter
--- OUTSIDE RECORDS SUMMARY | 2025-08-20 07:46 | XMS_ITS | Encounter Summary ---
[facility] Organization [facility] Address [address] [place] [address] Care Team Providers Care Caddy Name Role Phone Reza Panchal MD Primary Care Provider +1- [phone] Reason for Visit * Reason Comments Med Refill Encounter Details Date Type Department Care Team (Late st Contact Info) Description 02/12/2021 Refill [facility] PRIMARY CARE [address] [address] Huyen Hall MD 2039 [facility] 100 [place] [address] Gastroesophageal reflux disease, unspecified whether esophagitis present [...] MEDICAL CENTER PULMONARY & CRITICAL CARE MEDICINE [address] [place] [address] 09/01/2025 11:30 AM EST Office Visit [facility] PULMONARY & CRITICAL CARE MEDICINE 3000 [facility] 240 [place] [address] Maxine Gibson, GASOLINE PUMP MECHANIC [address] [place] [address] 09/02/2025 10:00 AM EST Office Visit [facility] UROLOGY [address] [address] Sanam Saunders, GASOLINE PUMP MECHANIC 1760 [facility] [address] [place] [address] 09/24/2025 9:15 AM EST Office Visit [facility] RHEUMATOLOGY 330 [facility] 100 [place] [address] John Sheppard APRN 330 [facility] 100 [place] [address] 10/15/2025 10:00 AM EST Infusion [facility] OUTPATIENT ONCOLOGY [place] 330 [facility] 110 [place] [address] 02/03/2026 10:45 AM EDT Office Visit [facility] RHEUMATOLOGY 330 [facility] 100 [place] [address] Patrice Santana DO 330 [facility] 100 [place] [address] documented as of this encounter Visit Diagnoses [...] documented as of this encounter Care Teams Caddy Relationship Specialty Start Date End Date Reza Panchal MD [address] [place], [place] [phone] PCP - General Family Medicine 09/30/24 documented as of this encounter
--- OUTSIDE RECORDS SUMMARY | 2025-08-20 07:46 | XMS_ITS | Encounter Summary ---
Author Organization Healthcare Address [address] [place] [address] Care Team Providers Care Horse Stud Manager Name Role Phone Reza Panchal MD Primary Care Provider +1- [phone] Encounter Details Date Type Department Care Team (Late st Contact Info) Description 08/17/2024 Ophth Exam [facility] - Pediatrics [address] [place] [address] Tian Ramírez MD [address] [place] [address] Social History Tobacco Use Types Packs/Day [...] on filedocumented in this encounter Care Teams Horse Stud Manager Relationship Specialty Start Date End Date Reza Panchal MD [address] [place] [address] PCP - General 08/17/24 documented as of this encounter
--- OUTSIDE RECORDS SUMMARY | 2025-08-20 07:46 | XMS_ITS | Encounter Summary ---
Author Organization [facility] Address [address] [place] [address] Care Team Providers Care Director Of Business Operations Name Role Phone Reza Panchal MD Primary Care Provider +1- [phone] Encounter Details Date Type Department Care Team (Latest Contact Info) Description 07/21/2025 Travel Social History Tobacco Use Types Packs/Day Years Used Date Smoking Tobacco: Never Passive Smoke Exposure: Past Smokeless Tobacco: Never Comments: smokes, for 45 years Alcohol Use Standard Drinks/Week Comments Never 0 (1 standard drink = 0.6 oz pur e alcohol) [facility] Utilities Answer Date Recorded In the [...] Description 09/01/2025 11:00 AM EST Office Visit [facility] PULMON[facility] & CRITICAL CARE MEDICINE 3000 [facility] [address] [place] [address] 09/01/2025 11:30 AM EST Office Visit [facility] PULMONARY & CRITICAL CARE MEDICINE 3000 [facility] [address] [place] [address] Maxine Gibson, TRANSPORT TECHNICIAN [address] [place] [address] 09/02/2025 10:00 AM EST Office Visit [facility] UROLOGY 1760 [facility] [address] [place] [address] Sanam Saunders, TRANSPORT TECHNICIAN 1760 [facility] [address] [place], [place] [address] 09/24/2025 9:15 AM EST Office Visit [facility] RHEUMATOLOGY [address] [place] [address] John Sheppard, TRANSPORT TECHNICIAN [address] [facility] 100 [place] [address] 10/15/2025 10:00 AM EST Infusion [facility] OUTPATIENT ONCOLOGY [place] [facility] 110 [place] [address] 02/03/2026 10:45 AM EDT Office Visit [facility] RHEUMATOLOGY [address] [place] [phone] Patrice Santana DO [address] [facility] 100 [place], [place] [id number] documented as of this encounter Goals Goal [...] of this encounter Care Teams Director Of Business Operations Relationship Specialty Start Date End Date Reza Panchal MD [facility] [place] [address] PCP - General Family Medicine 09/30/24 documented as of this encounter
--- OUTSIDE RECORDS SUMMARY | 2025-08-20 07:46 | XMS_ITS | Encounter Summary ---
[facility] Organization [facility] Address [address] [place] [phone] Care Team Providers Care Tool/Die Maker Name Role Phone Reza Panchal MD Primary Care Provider +1- [phone] Encounter Details Date Type Department Care Team (Late st Contact Info) Description 06/17/2025 Results Follow-Up [facility] UROLOGY 1760 [place] [address] Sanam Saunders APRN 1760 [facility] [address] [place] [address] Social History Tobacco Use Types Packs/Day Years Used Date Smoking Tobacco: Never Passive Smoke Exposure: Past Smokeless Tobacco: Never Comments: smokes, for 45 years Alcohol Use Standard Drinks/Week Comments No 0 (1 standard drink = 0.6 oz pur e alcohol) [facility] Utilities Answer Date Recorded In the past 12 months has [employer] electric, gas, oil, or water company threatened [...] CARE MEDICINE 3000 [facility] 240 [place] [address] 09/01/2025 11:30 AM EST Office Visit [facility] PULMONARY & CRITICAL CARE MEDICINE 3000 [facility] 240 [place] [address] Maxine Gibson, CHANNEL WORKER [address] [place] [address] 09/02/2025 10:00 AM EST Office Visit [facility] UROLOGY 1760 [facility] [address] [place] [address] Sanam Saunders, CHANNEL WORKER 1760 [facility] [address] [place] [address] 09/24/2025 9:15 AM EST Office Visit [facility] RHEUMATOLOGY 330 [facility] 100 [place] [address] John Sheppard, CHANNEL WORKER 330 [facility] 100 [place] [address] 10/15/2025 10:00 AM EST Infusion [facility] OUTPATIENT ONCOLOGY [address] [place] [address] 02/03/2026 10:45 AM EDT Office Visit [facility]UMATOLOGY 330 [facility] 100 [place] [address] Patrice Santana DO [place] [facility] [address] [place] [address] documented as of this encounter Goals Goal [...] documented as of this encounter Care Teams Tool/Die Maker Relationship Specialty Start Date End Date Reza Panchal MD [facility] [place] [address] PCP - General Family Medicine 09/30/24 documented as of this encounter
--- OUTSIDE RECORDS SUMMARY | 2025-08-20 07:46 | XMS_ITS | Encounter Summary ---
[facility] Address [address] [place] [address] Care Team Providers Care Computer Security Manager Name Role Phone Reza Panchal MD Primary Care Provider +1- [phone] Encounter Details Date Type Department Care Team (Late st Contact Info) Description 01/15/2025 Results Follow-Up [facility] RHEUMATOLOGY [address] [address] Patrice Santana DO 330 [place] [id number] Social History Tobacco Use Types Packs/Day Years Used Date Smoking Tobacco: Never Passive Smoke Exposure: Past Smokeless Tobacco: Never Comments: smokes, for 45 years Alcohol Use Standard Drinks/Week Comments No 0 (1 standard drink = 0.6 oz pur e alcohol) [facility] Utilities Answer Date Recorded In the past 12 months has [employer], gas, oil, or water [employer] threatened to shut off services in your [...] or training? Not on file Preferred Language Arabic 05/28/2024 PHQ-2 Answer Date Recorded Retired PHQ-9: [...] 3000 [facility] 240 [place] [address] 09/01/2025 11:30 AM EST Office Visit [facility] PULMONARY & CRITICAL CARE MEDICINE 3000 [facility] 240 [place] [address] Maxine Gibson, CAPACITY PLANNING ANALYST 2400 [place] [address] 09/02/2025 10:00 AM EST Office Visit [facility] UROLOGY 1760 [facility] 502 [place] [address] Sanam Saunders, CAPACITY PLANNING ANALYST 1760 [facility] [address] [place] [address] 09/24/2025 9:15 AM EST Office Visit [facility] RHEUMATOLOGY 330 [facility] 100 [place] [address] John Sheppard, CAPACITY PLANNING ANALYST 330 [facility] 100 [place] [address] 10/15/2025 10:00 AM EST Infusion [facility] OUTPATIENT ONCOLOGY [place] 330 [facility] 110 [place] [address] 02/03/2026 10:45 AM EDT Office Visit [facility] RHEUMATOLOGY 330 [facility] 100 [place] [address] Patrice Santana DO [address] [address] documented as of this encounter Goals Goal [...] as of this encounter Care Teams Computer Security Manager Relationship Specialty Start Date End Date Reza Panchal MD 1210 [place] [address] PCP - General Family Medicine 09/30/24 documented as of this encounter
--- OUTSIDE RECORDS SUMMARY | 2025-08-20 07:46 | XMS_ITS | Encounter Summary ---
[facility] Address [address] [place] [address] Care Team Providers Care Unix Administrator Name Role Phone Reza Panchal MD Primary Care Provider +1- [phone] Reason for Visit * Reason Comments Med Refill Encounter Details Date Type Department Care Team (Late st Contact Info) Description 03/22/2024 Refill [facility] PRIMARY CARE [address] [address] Huyen Hall MD 2039 [facility] 100 [place] [address] Acquired hypothyroidism Social History Tobacco Use Types Packs/Day Years Used Date Smoking Tobacco: Never Smokeless Tobacco: Never Comments: smokes, for 45 years Alcohol Use Standard Drinks/Week Comments No 0 (1 standard drink = 0.6 oz pur e alcohol) [facility] Utilities Answer Date Recorded In the past 12 months has [employer], gas, oil, or water company threatened [...] training? Not on file Preferred Language Italian 01/11/2024 PHQ-2 Answer Date Recorded Retired PHQ-9: [...] Description 09/01/2025 11:00 AM EST Office Visit [facility] PULMONARY & CRITICAL CARE MEDICINE 3000 [facility] 240 [place] [address] 09/01/2025 11:30 AM EST Office Visit [facility] PULMONARY & CRITICAL CARE MEDICINE 3000 [facility] 240 [place] [address] Maxine Gibson, BAND TIER 2400 [place] [address] 09/02/2025 10:00 AM EST Office Visit [facility] UROLOGY 1760 [facility] 502 [place] [address] Sanam Saunders, BAND TIER 1760 [facility] [address] [place] [address] 09/24/2025 9:15 AM EST Office Visit [facility] RHEUMATOLOGY 330 [facility] 100 [place] [address] John Sheppard, BAND TIER 330 [facility] 100 [place] [address] 10/15/2025 10:00 AM EST Infusion [facility] OUTPATIENT ONCOLOGY [address] [place] [address] 02/03/2026 10:45 AM EDT Office Visit [facility]UMATOLOGY 330 [facility] 100 [place] [address] Patrice Santana DO [facility] [address] [place] [address] documented as of this encounter Goals Goal [...] documented as of this encounter Care Teams Unix Administrator Relationship Specialty Start Date End Date Reza Panchal MD [facility] [place] [address] PCP - General Family Medicine 09/30/24 documented as of this encounter
--- OUTSIDE RECORDS SUMMARY | 2025-08-20 07:46 | XMS_ITS | Encounter Summary ---
[facility] Address [address] [place] [address] Care Team Providers Care Technical Aid Name Role Phone Reza Panchal MD Primary Care Provider +1- [phone] Reason for Visit * Reason Onset Date Comments Shortness of Breath 07/14/2025 Encounter Details Date Type Department Care Team (Late st Contact Info) Description 07/14/2025 Telephone [facility] PULMONARY & CRITICAL CARE MEDICINE 3000 [facility] 240 [place] [address] Maxine Gibson, TECHNOLOGY OFFICER [address] [place] [address] Shortness of Breath Social History Tobacco Use Types Packs/Day Years Used Date Smoking Tobacco: Never Passive Smoke Exposure: Past Smokeless Tobacco: Never Comments: smokes, for 45 years Alcohol Use Standard Drinks/Week Comments No 0 (1 standard drink = 0.6 oz pur e alcohol) [facility] Utilities Answer Date Recorded In the past 12 months has [employer], gas, oil, or water company threatened to [...] or training? Not on file Preferred Language Ugandan 01/28/2025 PHQ-2 Answer Date Recorded Retired PHQ-9: [...] [facility] 240 [place] [address] 09/01/2025 11:30 AM EST Office Visit [facility] PULMONARY & CRITICAL CARE MEDICINE 3000 [facility] 240 [place] [address] Maxine Gibson, TECHNOLOGY OFFICER 2400 [place] [address] 09/02/2025 10:00 AM EST Office Visit [facility] UROLOGY 1760 [facility] 502 [place] [address] Sanam Saunders, PARVIZ 1760 [facility] 502 [place] [address] 09/24/2025 9:15 AM EST Office Visit [facility] RHEUMATOLOGY [address] [place] [address] John Sheppard APRN 330 [facility] 100 [place], [place] [id number] 10/15/2025 10:00 AM EST Infusion [facility] OUTPATIENT ONCOLOGY [place] 330 [facility] 110 [place] [address] 02/03/2026 10:45 AM EDT Office Visit [facility] RHEUMATOLOGY [address] [place] [address] Patrice Santana DO 330 [facility] 100 [place] [address] documented as of this encounter [...] as of this encounter Care Teams Technical Aid Relationship Specialty Start Date End Date Reza Panchal MD [facility] [place] [address] PCP - General Family Medicine 09/30/24 documented as of this encounter
--- OUTSIDE RECORDS SUMMARY | 2025-08-20 07:46 | XMS_ITS ---
Author Name Ephraim RN, LARD MIXER, Leigh martinez Sarina Address [address] [address] Phone [phone] Organization [facility] Care Team Providers Care Hplc Chemist Name Role Phone Ivonne Ye Unavailable [phone] Reason for Referral Not Available Allergies, adverse [...] 50 mg Tab TAKE 1 TABLET BY [facility] ONCE DAILY IN AM [...] Cap TAKE 1 CAPSULE BY [facility] TWICE DAILY FOR 10 DAYS 2024-08-14 [...] EVERY 12 HOURS 2024-01-03 No Data Available Wtwadcle-Pqaptittw-Ccxlbjcw [id number] Suspension SHAKE LIQUID AND INSTILL 1 DROP [...] mplaint [facility] 7 Day [facility] [place], [place], [place] 12/25/2024 Encntr for f/u exam aft trtm t for cond oth than malig neoplmSepsis, unspecified organism [facility] 7 [facility] [place] 12/25/2024 Encntr for f/u exam aft trtm t for cond oth than malig neoplmSepsis, unspecified organism [facility] 7 [facility] [place] 12/25/2024 Encntr for f/u exam aft trtm t for cond oth than malig neoplmSepsis, unspecified organism [facility] 7 [facility] [place] 12/25/2024 Encntr for f/u exam aft trtm t for cond oth than malig neoplmSepsis, unspecified organism Telephone E/M Service; 5-10 min of Medical Discussion (Audio Only) [place], 12/27/2024 Sepsis, unspecified organism Telephone E/M Service; 5-10 min of Medical Discussion (Audio Only) [place], 12/27/2024 Sepsis, unspecified organism Vital Signs Date of Collection Vitals 2024-12-25 14:07:15 BP Diastolic - 79.0 mm[Hg]BP Systolic - 143.0 mm[Hg]Heart Rate - 92.0 /min Social History Sex Female History of Procedures Procedures Service Procedure code Service date Servicing provider Phone# [facility] 7 Day Disch [id number] 2024-12-25 No Data Available No Data Avail [...] 5-10 min of Medical Discussion (Audio Only) [id number] 2024-12-27 No Data Available No Data Availa [...] getting around the house wellLana Erica is POA/electronic development technician - she comes over and cooks meals, cleans the house, brings her to appts and the grocery store because pt gets out of breath with too much walkingPD will be a phone visit (Cannot be the following states: [place], [place], [place], [place], [place], [place], [place], [place], [place])Pt Agreed to a post discharge visit with a [facility] Provider: with Ivelisse Reed Friday, December 27, 2024 4:00pm ESTRN reinforced availability of UC provider 24/ for 30 days after discharge and encouraged CB w/ any concerns or if pt is worse in any way. Advised pt to call to reach our staff.Needs/concerns for [facility] provider to address during PD visit: [...]
--- OUTSIDE RECORDS SUMMARY | 2025-08-20 07:46 | XMS_ITS | Encounter Summary ---
[facility] Address [address] [place] [address] Care Team Providers Care Telegraph Repeater Mechanic Name Role Phone Reza Panchal MD Primary Care Provider +1- [phone] Reason for Visit * Reason Onset Date Comments CANCEL PROCEDURE 05/28/2025 Encounter Details Date Type Department Care Team (Late st Contact Info) Description 05/28/[address] [facility] GASTROENTEROLOGY [address] [address] Ivelisse Cordon MD 1720 [place] [address] CANCEL PROCEDURE Social History Tobacco Use Types Packs/Day Years Used Date Smoking Tobacco: Never Passive Smoke Exposure: Past Smokeless Tobacco: Never Comments: smokes, for 45 years Alcohol Use Standard Drinks/Week Comments No 0 (1 standard drink = 0.6 oz pur e alcohol) [facility] Utilities Answer Date Recorded In the past 12 months has [employer], gas, oil, or water company threatened to [...] or training? Not on file Preferred Language Telugu 01/28/2025 PHQ-2 Answer Date Recorded Retired PHQ-9: [...] patient: Emergency Contact Best call back number: [phone] Chief complaint: CANCEL PROCEDURE Type of visit: [...] CARE MEDICINE 3000 [facility] 240 [place] [address] 09/01/2025 11:30 AM EST Office Visit [facility] PULMONARY & CRITICAL CARE MEDICINE 3000 [facility] 240 [place] [address] Maxine Gibson, RULING TECHNICIAN 2400 [place] [address] 09/02/2025 10:00 AM EST Office Visit [facility] UROLOGY 1760 [facility] 502 [place] [address] Sanam Saunders, RULING TECHNICIAN 1760 [facility] [address] [place] [address] 09/24/2025 9:15 AM EST Office Visit [facility] RHEUMATOLOGY 330 [facility] 100 [place] [address] John Sheppard APRN 330 [facility] 100 [place] [address] 10/15/2025 10:00 AM EST Infusion [facility] OUTPATIENT ONCOLOGY [place] 330 [facility] 110 [place] [address] 02/03/2026 10:45 AM EDT Office Visit [facility] MEDICAL [facility] RHEUMATOLOGY 330 [facility] 100 [place] [address] Patrice Santana, 330 [facility] 100 [place] [address] documented as of this encounter [...] documented as of this encounter Care Teams Telegraph Repeater Mechanic Relationship Specialty Start Date End Date Reza Panchal MD [address] [place] [address] PCP - General Family Medicine 09/30/24 documented as of this encounter
--- OUTSIDE RECORDS SUMMARY | 2025-08-20 07:46 | XMS_ITS | Clinical Summary ---
Author Organization [facility] Address [address] [place] [address] Care Team Providers Care Salvage Inspector Name Role Phone Reza Panchal MD Primary Care Provider +1- [phone] Allergies Active Allergy Reactions Criticality Noted Date [...] file Insurance [employer] [place] Care Teams Salvage Inspector Relationship Specialty Start Date End Date Reza Panchal MD [address] [place] [address] PCP - General 08/17/24
--- OUTSIDE RECORDS SUMMARY | 2025-08-20 07:46 | XMS_ITS | Encounter Summary ---
Author Organization [facility] Address [address] [place] [address] Care Team Providers Care Punch Hand Name Role Phone Reza Panchal MD Primary Care Provider +1- [phone] Encounter Details Date Type Department Care Team (Latest Contact Info) Description 07/18/2025 Travel Social History Tobacco Use Types Packs/Day Years Used Date Smoking Tobacco: Never Passive Smoke Exposure: Past Smokeless Tobacco: Never Comments: smokes, for 45 years Alcohol Use Standard Drinks/Week Comments No 0 (1 standard drink = 0.6 oz pur e alcohol) [facility] Utilities Answer Date Recorded In the [...] 3:42 PM EDT Susan Burk RN * [place] Suicide Severity Rating Scale (Screener/Recent Self-Report) Question [...] [facility] MEDICINE [address] [place] [phone] 09/01/2025 11:30 AM EST Office Visit [facility] PULMON[facility] CRITICAL CARE MEDICINE [address] [address] Maxine Gibson, CARDIOLOGY PHYSICIAN 2400 [place] [address] 09/02/2025 10:00 AM EST Office Visit [facility] UROLOGY [address] [address] Sanam Saunders, CARDIOLOGY PHYSICIAN 1760 [facility] [address] [place] [address] 09/24/2025 9:15 AM EST Office Visit [facility] RHEUMATOLOGY [address] [phone] John Sheppard, CARDIOLOGY PHYSICIAN [address] [address] 10/15/2025 10:00 AM EST Infusion [facility] OUTPATIENT ONCOLOGY [place] 330 [address] [place] [address] 02/03/2026 10:45 AM EDT Office Visit [facility] RHEUMATOLOGY [address] [place] [address] Patrice Santana, DO 330 [address] 100 [place] [address] documented as of this encounter Goals Goal [...] documented as of this encounter Care Teams Punch Hand Relationship Specialty Start Date End Date Reza Panchal MD 1210 [place] [address] PCP - General Family Medicine 09/30/24 documented as of this encounter
--- OUTSIDE RECORDS SUMMARY | 2025-08-20 07:46 | XMS_ITS | Encounter Summary ---
[facility] Address [address] [place] [address] Care Team Providers Care User Interface Artist Name Role Phone Reza Panchal MD Primary Care Provider +1- [phone] Reason for Visit * Reason Comments Med Refill Encounter Details Date Type Department Care Team (Late st Contact Info) Description 07/03/2023 Refill [facility] PRIMARY CARE [address] [address] Huyen Hall MD [address] [address] Reactive depression; Type 2 diabetes mellitus with [...] [facility] PULMONARY & CRITICAL CARE MEDICINE [address] [place] [phone] 09/01/2025 11:30 AM EST Office Visit [facility] PULMONARY & CRITICAL CARE MEDICINE 3000 [facility] 240 [place] [address] Maxine Gibson, SENIOR MILITARY ANALYST 2400 [place] [address] 09/02/2025 10:00 AM EST Office Visit [facility] UROLOGY [address] [address] Sanam Saunders, SENIOR MILITARY ANALYST 1760 [facility] [address] [place] [address] 09/24/2025 9:15 AM EST Office Visit [facility] RHEUMATOLOGY 330 [facility] 100 [place] [address] John Sheppard APRN 330 [facility] 100 [place] [address] 10/15/2025 10:00 AM EST Infusion [facility] OUTPATIENT ONCOLOGY [place] 330 [facility] 110 [place] [address] 02/03/2026 10:45 AM EDT Office Visit [facility] RHEUMATOLOGY 330 [facility] 100 [place] [address] Patrice Santana DO 330 [facility] 100 [place], [place] [address] documented as of this encounter Visit Diagnoses [...] documented as of this encounter Care Teams User Interface Artist Relationship Specialty Start Date End Date Reza Panchal MD [address] [address] PCP - General Family Medicine 09/30/24 documented as of this encounter
== END 2025-08-18 23:59 ==
LOC: LAB.DROPOF 08-20 07:43
PROVIDERS: PCP Family Medicine; Visit Provider Nurse Practitioner
DX: N39.0 Urinary tract infection, site not specified (principal); R10.A0 Flank pain, unspecified side
CPT/HCPCS: 87086

== ENCOUNTER 2025-08-21 10:12 | Day surgery (SDC) | payer MEDICARE, MEDICAID, SELFPAY ==
[2025-08-19 12:41] VITALS: BMI 39.2
--- NOTE | 2025-08-20 16:25 | EXP.HP ---
History of Present Illness *Admission Date: 08/21/25 *History of present illness: Mrs. Castellanos is a 70-year-old female who is here for diagnostic colonoscopy. The patient recently had an EGD in May 2025 and had a pyloric channel ulcer and had Endo Clip (Mantis clip) closure. I did recommend that she stop the Ozempic and she was having more nausea and vomiting with this. I did place her on omeprazole. The patient continues to have gassiness, bloating, belching and daily diarrhea. She does get bowel urgency and has had multiple episodes of fecal incontinence. The patient has had some hemorrhoidal prolapse and hemorrhoidal bleeding. Her last colonoscopy was at [facility] in 2019. The examination is deemed medically necessary for diagnostic colonoscopy. The patient has been seen, interviewed and examined prior to the procedure by both myself and the anesthesia provider. [facility] Disclaimer: The information contained in this section may have been updated after the patient was seen, as this information can be updated by other users. 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 Sinusitis Edema Chest pain Hypomagnesemia Sepsis GI bleeding Pneumonia involving right lung Gout attack Bacteremia Headache Lower respiratory infection (e.g., bronchitis, pneumonia, pneumonitis, pulmonitis) Atypical pneumonia Headache, temporal Frontal headache Dyspnea Sinusitis, acute Nausea & vomiting Diarrhea Fever Sepsis Back pain Screening for osteoporosis Bacteremia due to Klebsiella pneumoniae UTI (urinary tract infection) Keratosis Incurvated nail Hypomagnesemia Vaginal irritation Dysuria Stress incontinence Urge incontinence Overactive bladder Allergic rhinitis Coronary artery calcification seen on CAT scan Fatigue History of DVT of lower extremity History of sleep apnea Bronchitis, mucopurulent recurrent Dyspnea on exertion Bronchiectasis Asthma Hyperlipidemia associated with type 2 diabetes mellitus Urinary incontinence Onychomycosis Diabetic neuropathy Breast cancer screening by mammogram Dementia Diabetes mellitus Bronchitis COPD (chronic obstructive pulmonary disease) Colonoscopy planned Gallbladder anomaly Rheumatoid arthritis Osteoporosis Back pain Acid reflux disease Carpal tunnel syndrome Anxiety Hypothyroidism Sleep apnea High blood pressure Arthritis Varicose veins of ankle Depression Acute asthma Surgical History History of cataract surgery History of esophagogastroduodenoscopy (EGD) H/O right heart catheterization History of cholecystectomy H/O tubal ligation History of hernia repair Total knee replacement status Family History Other No significant family history Social History (Updated 08/21/25 @ 10:46 by Alpa Short RN) Smoking Status: Never smoker alcohol intake: never substance use type: denies use current occupational status: retired Travel in the last 8 weeks?: None caffeine: Yes Have you lived/traveled outside [place] in past 30 days?: No Contact w/someone who lives/traveled outside US past 30 days?: No Exposure to someone with infectious disease in past 14 days?: No Do you have a fever (greater than 100.4 F or 38 C)?: No Have you tested positive for COVID-19?: No Exposed to someone with COVID-19 in past 14 days?: No Do you have a sore throat?: No Do you have a cough?: No Do you have any weakness?: No Are you experiencing any nausea/vomitting?: No Do you have any diarrhea?: No Are you experiencing any unusual bleeding?: No Do you have any muscle aches/pain?: No Do you have any abdominal pain?: No Are you experiencing loss of taste or smell?: No Other 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 Have you received the Flu Vaccine for this season: No Have you received the Pneumonia Vaccine: Yes Review of Systems Review of Systems Review of systems (narrative): Negative *Cardiovascular Comments: Negative *Gastrointestinal Comments: Negative *Genitourinary Comments: Negative *Musculoskeletal Comments: Negative *Neurologic Comments: Negative Meds Home Medications and Allergies Home Medications ?Medication ?Instructions ?Recorded ?Confirmed ?Type fluticasone propionate 50 2 spray intranasal DAILY 09/16/24 08/21/25 History mcg/actuation nasal spray,suspension magnesium oxide 500 mg PO DAILY 12/16/24 08/21/25 History cholecalciferol (vitamin D3) 125 125 mcg PO DAILY 01/13/25 08/21/25 History mcg (5,000 unit) capsule mecobalamin (vitamin B12) 500 mcg 500 mcg PO DAILY 01/13/25 08/21/25 History chewable tablet nitroglycerin 0.4 mg sublingual 0.4 mg sublingual Q5-15M PRN Chest 01/13/25 08/21/25 History tablet Pain fluticasone 100 mcg-salmeterol 50 1 ea inhalation BID 01/20/25 08/21/25 History mcg/dose blistr powdr for inhalation (Advair Diskus) estradiol 0.01% (0.1 mg/gram) 1 appful vaginal DIRECTED 05/19/25 08/21/25 History vaginal cream levothyroxine 75 mcg tablet 75 mcg PO DAILY #90 tabs 05/19/25 08/21/25 Rx memantine 10 mg tablet 10 mg PO DAILY #90 tabs 05/19/25 08/21/25 Rx mirtazapine 15 mg tablet 15 mg PO HS #90 tabs 05/19/25 08/21/25 Rx montelukast 10 mg tablet 10 mg PO DAILY #90 tabs 05/19/25 08/21/25 Rx nystatin 100,000 unit/gram topical 1 applic topical TID 05/19/25 08/21/25 History powder potassium chloride 10 mEq 10 meq PO DAILY #90 tabs 05/19/25 08/21/25 Rx tablet,extended release(part/cryst) Diabetic Shoes (DME) #1 ea 05/20/25 08/19/25 Rx nitrofurantoin 100 mg PO HS 05/25/25 08/21/25 History monohydrate/macrocrystals 100 mg capsule (Macrobid) albuterol sulfate 90 mcg/actuation 2 puff inhalation NEEDED PRN 05/29/25 08/21/25 History aerosol inhaler Shortness Of Breath Or Wheezing atorvastatin 20 mg tablet 20 mg PO HS #90 tabs 06/19/25 08/21/25 Rx prasugrel HCl 10 mg tablet 10 mg PO DAILY 30 days #30 tabs 06/19/25 08/21/25 Rx (Effient) triamterene 37.5 1 cap PO DAILY #30 caps 06/19/25 08/21/25 Rx mg-hydrochlorothiazide 25 mg capsule gabapentin 300 mg capsule 300 mg PO TID #90 caps 07/04/25 08/21/25 Rx diltiazem HCl 120 mg 120 mg PO DAILY #30 caps 07/10/25 08/21/25 Rx capsule,extended release 24 hr (Cartia XT) metoprolol succinate 50 mg 50 mg PO QHS #90 tabs 07/10/25 08/21/25 Rx tablet,extended release 24 hr zoledronic acid 5 mg/100 mL in 5 ea IV NEEDED PRN yearly 07/10/25 08/21/25 History mannitol 5 %-water intravenous piggybck (Reclast) levofloxacin 750 mg tablet 750 mg PO DAILY 7 days #7 tabs 07/17/25 08/21/25 Rx omeprazole 40 mg capsule,delayed 40 mg PO DAILY #30 caps 07/17/25 08/21/25 Rx release sucralfate 1 gram tablet 1 g PO QID 30 days #120 tabs 07/17/25 08/21/25 Rx famotidine 20 mg tablet (Pepcid) 20 mg PO DAILY 20 days #20 tabs 07/18/25 08/21/25 Rx ketorolac 10 mg tablet 10 mg PO Q8H PRN pain #14 tabs 07/18/25 08/21/25 Rx insulin glargine 100 unit/mL (3 10 unit (0.1 mL) SQ HS #15 mL 07/23/25 08/21/25 Rx mL) subcutaneous pen (Stitch FixikPen U-100 Insulin) pen needle, diabetic 29 gauge x #100 ea 07/23/25 08/19/25 Rx 1/2 (Ultra-Thin II Insulin Pen [place]) blood sugar diagnostic (OneTouch #100 ea 08/01/25 08/19/25 Rx Ultra Test strips) sodium,potassium,mag sulfates 17.5 See Rx Instructions PO .COMPLEX 08/14/25 08/21/25 Rx gram-3.13 gram-1.6 gram oral soln #354 mL (Suprep Bowel Prep Kit) azithromycin 250 mg tablet See Rx Instructions PO .COMPLEX #6 08/18/25 08/21/25 Rx tabs golimumab 12.5 mg/mL intravenous 12.5 mg IV Q7W Rheumatoid Arthritis 08/18/25 08/21/25 History solution (Simponi ARIA) New Prescriptions to Start Prescriptions: Allergies Allergy/AdvReac Type Severity Reaction Status Date / Time hydrocodone Allergy Mild Unknown Verified 08/21/25 10:31 allergy reaction acetaminophen (From Allergy Unknown Verified 08/21/25 10:31 Tylenol-Codeine #3) allergy reaction metformin Allergy Unknown Verified 08/21/25 10:31 allergy reaction codeine AdvReac Mild Unknown Verified 08/21/25 10:31 allergy reaction morphine AdvReac Gastrointestinal Verified 08/21/25 10:31 Upset protamine AdvReac Difficulty Verified 08/21/25 10:31 Breathing Exam Data for Last 24 hours I & O for Last 24 hours: Intake & Output 08/17/25 08/18/25 08/19/25 08/20/25 22:59 23:59 23:59 23:59 Weight 201 lb *Routine HEENT Exam Head: Present normocephalic Eye: Present EOMI and PERRL ENT: Present mucous membranes moist *Routine Neck Exam Neck: Present supple *Routine Respiratory Exam Respiratory: Present CTA bilaterally *Routine Cardiovascular Exam Cardiovascular: Present RRR *Routine Abdominal Exam Abdominal: Present soft and normoactive bowel sounds; Absent tenderness *Routine Rectal Exam Rectal:: deferred *Routine Genitalia Exam Genitalia:: deferred *Routine Extremities Exam Extremities: Absent cyanosis, clubbing or edema *Routine Skin Exam Skin: Present warm; Absent rash *Routine Neurological Exam Neurological: Present alert and oriented X3 Assessment and Plan *Assessment and plan (1) Bright red blood per rectum: Status: Acute Category: Medical Code(s): K62.5 - Hemorrhage of anus and rectum (2) Hemorrhoids: Status: Acute Category: Medical Code(s): K64.9 - Unspecified hemorrhoids (3) Flatulence: Status: Acute Category: Medical Code(s): R14.3 - Flatulence (4) Bloating: Status: Acute Category: Medical Code(s): R14.0 - Abdominal distension (gaseous) (5) Incontinence of feces: Status: Acute Category: Medical Code(s): R15.9 - Full incontinence of feces (6) Fecal urgency: Status: Acute Category: Medical Code(s): R15.2 - Fecal urgency (7) Chronic diarrhea: Status: Acute Category: Medical Code(s): K52.9 - Noninfective gastroenteritis and colitis, unspecified Plan A/P: 1. Chronic diarrhea with fecal urgency and fecal incontinence is the preprocedural diagnosis. The patient also has a lot of bloating, gassiness and hemorrhoidal prolapse and bleeding. The patient will be anesthetized/sedated using MAC sedation. The patient has been seen and examined. Cardiac and lung assessment prior to the examination is stable. Proceed with planned diagnostic colonoscopy.
--- NOTE | 2025-08-21 06:46 | P.PCN_ITS ---
[facility] Procedure Note Date: 08/21/25 Time: 12:36 Procedure Note:: Colonoscopy Procedure Report: Colonoscopy with cold snare polypectomy and cold biopsies Endoscopist: Reji May II, MD Referring physician: Reza Panchal MD Date of Procedure: August 21, 2025 Equipment: Olympus [id number] adult colonoscope Sedation: MAC sedation Indication: Mrs. Castellanos is a 70-year-old female who is here for diagnostic colonoscopy. The patient continues to have gassiness, bloating, belching and daily diarrhea. She does get bowel urgency and has had multiple episodes of fecal incontinence. The patient has had some hemorrhoidal prolapse and hemorrhoidal bleeding. The patient reports no weight loss or family history of colon cancer. Her last colonoscopy was at [facility] in 2019. The patient recently had an EGD in May 2025 and had a pyloric channel ulcer and had Endo Clip (Mantis clip) closure. I did recommend that she stop the Ozempic and she was having more nausea and vomiting with this. I did place her on omeprazole. The examination is deemed medically necessary for diagnostic colonoscopy. Procedure: Prior to the procedure, a history and physical exam was performed, and patient's medications and allergies were reviewed. The risks, benefits and alternatives of the sedation and procedure were discussed with the patient. All questions were answered and informed consent was obtained. The patient was brought to the procedure room. Patient identification and proposed procedure were verified by the physician and the nurse. The patient was placed in a left lateral decubitus position and the scope was passed under direct vision. Throughout the procedure, the patient's blood pressure, pulse, and oxygen saturations were monitored continuously. The colonoscopy was accomplished without difficulty. The patient tolerated the procedure well. Findings: On digital rectal examination there was normal rectal tone. There were small external hemorrhoidal tags with some hemorrhoidal prolapse. The colonoscope was introduced through the anal canal to the rectum and advanced to the cecum. The ileocecal valve and appendiceal orifice were identified. The scope was advanced a short distance into the ileum which appeared grossly normal. The scope was then withdrawn into the colon. There were 2 polyps (cecum x 2 (4 and 5 mm)) which were both removed via cold snare polypectomy. Random cold biopsies were taken from the right colon to rule out microscopic colitis. The remaining cecum, ascending and transverse colon and mucosa were grossly normal. There were scattered diverticuli throughout the descending and sigmoid colon (LEFT colon). The rectum itself was normal. Upon retroflexion within the rectum there were grade 1-2 internal hemorrhoids. The preparation was fair to poor throughout with [place] Preparation Score of 6-7 out of 9. There was a lot of solid and liquid residue especially in the right colon. The cecal time was 14 minutes. Impression: 1. Diminutive colonic polyps x 2 2. Extensive left-sided diverticulosis 3. Grade 1-2 internal hemorrhoids Plan: I will follow-up the polyp histology and recommend repeat screening/surveillance colonoscopy in 5 years. I will follow-up the random biopsies to rule out microscopic colitis. If the biopsies are normal, would consider FiberCon plus alosetron or Viberzi.
[2025-08-21 10:39] VITALS: BP 151/74; PULSE 81; RESP 18; TEMP 36.4; O2SAT 94
[2025-08-21 10:59] LABS: POC Glucose,Bedside 113 gm/dL (70-110)
[2025-08-21] MEDS: LACTATED RINGERS 1000ML 1,000 ML 50 ML IV (11:08)
--- NOTE | 2025-08-21 11:13 | EXP.ANES.CKL ---
[facility] Disclaimer: The information contained in this section may have been updated after the patient was seen, as this information can be updated by other users. 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 Sinusitis Edema Chest pain Hypomagnesemia Sepsis GI bleeding Pneumonia involving right lung Gout attack Bacteremia Headache Lower respiratory infection (e.g., bronchitis, pneumonia, pneumonitis, pulmonitis) Atypical pneumonia Headache, temporal Frontal headache Dyspnea Sinusitis, acute Nausea & vomiting Diarrhea Fever Sepsis Back pain Screening for osteoporosis Bacteremia due to Klebsiella pneumoniae UTI (urinary tract infection) Keratosis Incurvated nail Hypomagnesemia Vaginal irritation Dysuria Stress incontinence Urge incontinence Overactive bladder Allergic rhinitis Coronary artery calcification seen on CAT scan Fatigue History of DVT of lower extremity History of sleep apnea Bronchitis, mucopurulent recurrent Dyspnea on exertion Bronchiectasis Asthma Hyperlipidemia associated with type 2 diabetes mellitus Urinary incontinence Onychomycosis Diabetic neuropathy Breast cancer screening by mammogram Dementia Diabetes mellitus Bronchitis COPD (chronic obstructive pulmonary disease) Colonoscopy planned Gallbladder anomaly Rheumatoid arthritis Osteoporosis Back pain Acid reflux disease Carpal tunnel syndrome Anxiety Hypothyroidism Sleep apnea High blood pressure Arthritis Varicose veins of ankle Depression Acute asthma Surgical History History of cataract surgery History of esophagogastroduodenoscopy (EGD) H/O right heart catheterization History of cholecystectomy H/O tubal ligation History of hernia repair Total knee replacement status Family History Other No significant family history Social History (Updated 08/21/25 @ 10:46 by Alpa Short RN) Smoking Status: Never smoker alcohol intake: never substance use type: denies use current occupational status: retired Travel in the last 8 weeks?: None caffeine: Yes Have you lived/traveled outside [place] in past 30 days?: No Contact w/someone who lives/traveled outside US past 30 days?: No Exposure to someone with infectious disease in past 14 days?: No Do you have a fever (greater than 100.4 F or 38 C)?: No Have you tested positive for COVID-19?: No Exposed to someone with COVID-19 in past 14 days?: No Do you have a sore throat?: No Do you have a cough?: No Do you have any weakness?: No Are you experiencing any nausea/vomitting?: No Do you have any diarrhea?: No Are you experiencing any unusual bleeding?: No Do you have any muscle aches/pain?: No Do you have any abdominal pain?: No Are you experiencing loss of taste or smell?: No [facility] Anesthesia Checklist Patient Identification Patient Identification: Arm Band and Verbal (Name & ) Structural Data Admitted From: Home Planned Operative Procedure/s: Colonoscopy Consent for Planned Operative Procedure(s) Verified: Yes Verified Documents: Surgical Consent NPO Status Verified Time NPO: 00:00 Chart Verification Results Verified: ECG Additional verifications Anesthesia Reactions: No Airway Assessment Mallampati Score:: Class II C-Spine Mobility Assessed: Yes TMJ Mobility Assessed: Yes Dentition: Edentulous Neurological Assessment Level of Consciousness: Awake, Alert and Appropriate Hx Seizures: No Numbness or tingling in extremities: No Anesthesia Plan Anesthesia Risk discussed: Yes Anesthesia Plan: Verified ASA Class: III Anesthesia Type: MAC
[2025-08-21 12:38] VITALS: BP 121/71; PULSE 73; RESP 14; TEMP 36.6; O2SAT 97
[2025-08-21 12:48] VITALS: BP 121/71; PULSE 96; RESP 14; O2SAT 96
[2025-08-21 12:58] VITALS: BP 138/74; PULSE 85; RESP 14; O2SAT 97
[2025-08-21 13:08] VITALS: BP 159/76; PULSE 68; RESP 14; O2SAT 94
[2025-08-21 13:38] VITALS: BP 159/87; PULSE 66; RESP 16; O2SAT 94
== END 2025-08-21 13:38 | disposition home or self-care (01) ==
PROVIDERS: PCP Family Medicine; Visit Provider Internal Medicine Gastroenterology
PROC: 0DJD8ZZ Inspection of Lower Intestinal Tract, Via Natural or Artificial Opening Endoscopic (ICD-10-PCS; CPT 45378; principal; 2025-08-21 12:00)
DX: D12.0 Benign neoplasm of cecum (principal); K57.30 Diverticulosis of large intestine without perforation or abscess without bleeding; K64.0 First degree hemorrhoids; K64.1 Second degree hemorrhoids; K62.5 Hemorrhage of anus and rectum; K52.9 Noninfective gastroenteritis and colitis, unspecified; J44.89 Other specified chronic obstructive pulmonary disease; E78.5 Hyperlipidemia, unspecified; M81.0 Age-related osteoporosis without current pathological fracture; M06.9 Rheumatoid arthritis, unspecified; E03.9 Hypothyroidism, unspecified; E11.40 Type 2 diabetes mellitus with diabetic neuropathy, unspecified; Z79.4 Long term (current) use of insulin; Z90.49 Acquired absence of other specified parts of digestive tract; Z88.5 Allergy status to narcotic agent; Z88.6 Allergy status to analgesic agent; Z88.8 Allergy status to other drugs, medicaments and biological substances
CPT/HCPCS: 45380; 45385; 82962; 88305; J2003; J2704; J7120